=== PATIENT | female | born 1950 | race Caucasian/White ===

== ENCOUNTER 2017-04-21 22:13 | Inpatient (IN) | payer OTHER ==
[~2017-04-21] VITALS: Ht 154.9 cm; Wt 61.1 kg
[~2017-04-21 22:13] MED LIST: ACET-1311 PO; CARV12.52 PO; CHOL1POW32 PO; CLX40 PO; DICL75TA2 PO; HYDR25TA4 PO; LOSA100T33 PO; LUTE15CA PO; METR-163 PO; MULT-506 PO; POTA75TA PO; SIMV40TA4 PO
[2017-04-21] MEDS ORDERED: ONDANSETRON INJ 2 MG/ML 2 ML VIAL IV STA (23:25)
[2017-04-21 23:40] LABS: BASO % 0.3 %; BASO ABS # 0.05 K/uL (0-0.2); EOS % 0.9 %; EOS ABS # 0.15 K/uL (0-0.5); HEMATOCRIT 41.8 % (37-47); HEMOGLOBIN 15.1 g/dL (12.0-16.0); IG# 0.12 K/uL (0.00-0.02); LYMPH ABS # 2.16 K/uL (1.2-3.4); MEAN CELL VOLUME 89.5 fL (80-100); MEAN CORPUSCULAR HEMOGLOBIN 32.3 pg (25-34); MEAN CORPUSCULAR HGB CONC 36.1 g/dl (32-36); MEAN PLATELET VOLUME 8.4 fL (7.4-10.4); MONO ABS # 0.99 K/uL (0.11-0.59); NEUT % 79.1 %; NEUT ABS # 13.11 K/uL (1.4-6.5); PLATELET COUNT 600 K/uL (130-400); RED CELL DISTRIBUTION WIDTH SD 42.3 fL (36.4-46.3); WHITE BLOOD COUNT 16.58 K/uL (4.8-10.8)
[2017-04-22] VITALS (8 sets, daily range): BP systolic 78–143; BP diastolic 47–81; PULSE 62–80; TEMP 36.3–36.6; O2SAT 94–98; Ht 154.9 cm; Wt 61.1 kg
[2017-04-22 00:09] LABS: ALBUMIN 3.8 gm/dl (3.4-5.0); ALKALINE PHOSPHATASE 125 U/L (45-117); ALT/SGPT 40 U/L (12-78); AST/SGOT 29 U/L (15-37); BLOOD UREA NITROGEN 20 mg/dl (7-18); CALCIUM 9.8 mg/dl (8.5-10.1); CARBON DIOXIDE 27 mmol/L (21-32); CREATININE 1.65 mg/dl (0.60-1.20); GLUCOSE 143 mg/dl (70-99); LIPASE 200 U/L (73-393); POTASSIUM 2.2 mmol/L (3.5-5.1); SODIUM 129 mmol/L (136-145); TOTAL PROTEIN 9.4 gm/dl (6.4-8.2)
[2017-04-22] MEDS ORDERED: POTASSIUM CHLORIDE 10 MEQ / 100ML WTR IV STA ×2 (00:34→02:58)
[2017-04-22] MEDS ORDERED: SODIUM CHLORIDE 0.9% 1000ML 1,000 ML IV STA ×3 (00:34→02:58)
[2017-04-22] MEDS ORDERED: KETOROLAC TROMETHAMINE 30 MG/ML VIAL IV STA (00:45)
[2017-04-22] MEDS ORDERED: ONDANSETRON INJ 2 MG/ML 2 ML VIAL IV STA (00:45)
[2017-04-22] MEDS ORDERED: OPTIRAY 320 IV PRN (01:15)
[2017-04-22] MEDS ORDERED: CALC-20 PO (01:36)
[2017-04-22] MEDS ORDERED: OMEG10007 PO (01:36)
[2017-04-22] MEDS ORDERED: ASPCH81X PO (01:36)
[2017-04-22] MEDS ORDERED: ACET325T96 PO (01:36)
[2017-04-22] MEDS ORDERED: TRAM-10 PO (01:36)
[2017-04-22] MEDS ORDERED: CARV12.52 PO (01:39)
[2017-04-22] MEDS ORDERED: GABA-113 PO (01:39)
[2017-04-22] MEDS ORDERED: HYZ/10015 PO (01:39)
[2017-04-22] MEDS ORDERED: RANI150T3 PO (01:39)
[2017-04-22] MEDS ORDERED: CITA40TA12 PO (01:39)
[2017-04-22] MEDS ORDERED: FSMD/70 PO (01:40)
[2017-04-22] MEDS ORDERED: POTA10CA28 PO (01:40)
[2017-04-22] MEDS ORDERED: DICL-201 PO (01:40)
[2017-04-22] MEDS ORDERED: HYDROmorphone INJ 0.5 MG/0.5 ML SYR IV STA (03:12)
[2017-04-22] MEDS ORDERED: ACETAMINOPHEN 325 MG TAB PO PRN (03:45)
[2017-04-22] MEDS ORDERED: ONDANSETRON INJ 2 MG/ML 2 ML VIAL IV PRN (03:45)
--- NOTE | 2017-04-22 04:58 | History and Physical ---
History & Physical Date & Time of Service: Apr 22, 2017 at 04:54 Chief Complaint: Abd Pain, Diarrhea, Hypokalemia, Vomiting Primary Care Physician: Ronald Cortes M.D. History of Present Illness Source: patient 66 year old Patient with vomiting and diarrhea x 1 week. Abdominal imaging concerning for colitis. Patient reports that symptoms have become worse after 1 week of vomiting and diarrhea and associates most of the discomfort of lower abdomen towards the bladder. When asked if symptoms of abdominal discomfort is associated with urination, patient reports that pain is worse with urination. Past Medical/Surgical History Medical Problems: (1) Diabetes Status: Chronic (2) History of orthopedic surgery Status: Resolved Surgical Problems: (1) H/O skin graft Status: Resolved (2) History of tonsillectomy Status: Resolved Family History Cancer Diabetes mellitus Heart disease Hypertension Lung disease Social History Smoking Status: Current Some Day Smoker Drug Use: none Marital Status: Occupational Status: retired Multi-Drug Resistant Organisms History of MDRO: No Allergies Coded Allergies: BEE STING (Verified Allergy, Severe, SWELLING SEVERE, 04/22/17) Home Medications Scheduled Alendronate/Cholecalciferol (Fosamax+D 70MG/2800 Iu), 1 TABLET PO WK Aspirin (Aspirin Chewable), 81 MG PO DAILY Calcium Carbonate-Vitamin D (Calcium 600 + D), 1 TAB PO BID Carvedilol (Coreg), 12.5 MG PO BID Citalopram Hydrobromide (Celexa), 40 MG PO DAILY Fish Oil ([place]-3), 1 CAP PO DAILY Gabapentin (Neurontin), 300 MG PO TID Hctz/Losartan (Hyzaar 25MG/100MG), 1 TAB PO DAILY Multivitamin (Multivitamin), 1 TAB PO DAILY Potassium Chloride (Micro-K Ext Rel), 10 MEQ PO BID Ranitidine Hcl (Zantac), 150 MG PO DAILY Simvastatin (Zocor), 40 MG PO QPM Scheduled PRN Acetaminophen Tab (Tylenol), 650 MG PO Q6 PRN for fever/pain/headache Diclofenac (Voltaren), 75 MG PO BID PRN for Pain Tramadol (Ultram), 1 TAB PO Q6 PRN for Moderate Pain Review of Systems Constitutional: No fever Eyes: No worsening of vision ENT: No sore throat Respiratory: No cough, No wheezing, No shortness of breath, No dyspnea on exertion, No dyspnea at rest Cardiovascular: No chest pain, No edema, No palpitations Abdomen: + pain, + nausea, + vomiting, + diarrhea Musculoskeletal: No joint pain Genitourinary - Female: + dysuria Neurologic: No numbness/tingling Psychiatric: No substance abuse Endocrine: No excessive thirst Hematologic / Lymphatic: No night sweats Integumentary: No rash Physical Exam Vital Signs Date Time Temp Pulse Resp B/P (MAP) Pulse Ox O2 Delivery O2 Flow Rate FiO2 04/22/17 04:20 79 16 116/75 98 04/22/17 03:20 77 04/22/17 03:18 81 16 131/77 99 Room Air 04/22/17 02:15 79 20 131/73 98 Room Air 04/22/17 00:21 86 20 135/87 99 Room Air 04/21/17 22:26 36.8 95 18 98 Room Air General Appearance: no apparent distress Head: normocephalic, atraumatic Eyes: normal inspection, EOMI, sclerae normal ENT: normal ENT inspection, hearing grossly normal, pharynx normal Neck: supple, no JVD, trachea midline Respiratory/Chest: chest non-tender, lungs clear, normal breath sounds, no respiratory distress, no accessory muscle use Cardiovascular: regular rate, rhythm, no edema, no JVD Abdomen/GI: normal bowel sounds, soft, no organomegaly, + pertinent finding ( tenderness lower abdomen towards bladder) Back: normal inspection, no CVA tenderness, no muscle spasm, normal range of motion Extremities/Musculoskelatal: normal inspection, no calf tenderness, no pedal edema, normal range of motion, + pertinent finding (left knee scar from surgery in the past) Neurologic/Psych: alert, normal mood/affect, oriented x 3 Skin: warm/dry, + pertinent finding (left knee scar from previous surgery in the past) Diagnostics Laboratory Results Results Past 24 Hours Test 04/21/17 23:13 04/22/17 03:25 Range/Units White Blood Count 16.58 4.8-10.8 K/uL Red Blood Count 4.67 4.2-5.4 M/uL Hemoglobin 15.1 12.0-16.0 g/dL Hematocrit 41.8 37-47 % Mean Corpuscular Volume 89.5 80-100 fL Mean Corpuscular Hemoglobin 32.3 25-34 pg Mean Corpuscular Hemoglobin Concent 36.1 32-36 g/dl Platelet Count 600 130-400 K/uL Mean Platelet Volume 8.4 7.4-10.4 fL Neutrophils (%) (Auto) 79.1 % Lymphocytes (%) (Auto) 13.0 % Monocytes (%) (Auto) 6.0 % Eosinophils (%) (Auto) 0.9 % Basophils (%) (Auto) 0.3 % Neutrophils # (Auto) 13.11 1.4-6.5 K/uL Lymphocytes # (Auto) 2.16 1.2-3.4 K/uL Monocytes # (Auto) 0.99 0.11-0.59 K/uL Eosinophils # (Auto) 0.15 0-0.5 K/uL Basophils # (Auto) 0.05 0-0.2 K/uL RDW Standard Deviation 42.3 36.4-46.3 fL RDW Coefficient of Variation 13.0 11.5-14.5 % Immature Granulocyte % (Auto) 0.7 % Immature Granulocyte # (Auto) 0.12 0.00-0.02 K/uL Sodium Level 129 136-145 mmol/L Potassium Level 2.2 3.5-5.1 mmol/L Chloride Level 91 98-107 mmol/L Carbon Dioxide Level 27 21-32 mmol/L Anion Gap 10.0 3-11 mmol/L Blood Urea Nitrogen 20 7-18 mg/dl Creatinine 1.65 0.60-1.20 mg/dl Estimated GFR () 36.9 Estimated GFR (Non- 31.8 BUN/Creatinine Ratio 12.1 10-20 Random Glucose 143 70-99 mg/dl Calcium Level 9.8 8.5-10.1 mg/dl Magnesium Level 1.6 1.8-2.4 mg/dl Total Bilirubin 0.7 0.2-1 mg/dl Aspartate Amino Transf (AST/SGOT) 29 15-37 U/L Alanine Aminotransferase (ALT/SGPT) 40 12-78 U/L Alkaline Phosphatase 125 45-117 U/L Troponin I < 0.015 0-0.045 ng/ml Total Protein 9.4 6.4-8.2 gm/dl Albumin 3.8 3.4-5.0 gm/dl Globulin 5.6 2.5-4.0 gm/dl Albumin/Globulin Ratio 0.7 0.9-2 Lipase 200 73-393 U/L Urine Color YELLOW Urine Appearance CLOUDY CLEAR Urine pH 7.0 4.5-7.5 Urine Specific [place] 1.010 1.000-1.030 Urine Protein 2+ NEG Urine Glucose (UA) NEG NEG Urine Ketones TRACE NEG Urine Occult Blood 3+ NEG Urine Nitrite POS NEG Urine Bilirubin NEG NEG Urine Urobilinogen NEG NEG Urine Leukocyte Esterase LARGE NEG Urine RBC 5-10 0-4 /hpf Urine WBC >30 0-5 /hpf Urine Epithelial Cells 0-5 0-5 /lpf Urine Amorphous Sediment PRESENT NONE PRSENT Urine Bacteria 4+ NEG Urine Hyaline Casts 0 0-5 /lpf Diagnostic Radiology CT abdomen Wall thickening of the ascending and transverse colon suggestive of colitis. Probably posterior uterine fibroid. EKG EKG ordered Impression Assessment and Plan 66 year old Patient with vomiting and diarrhea x 1 week and likely has colitis, possible UTI CT abdomen: Wall thickening of the ascending and transverse colon suggestive of colitis start ciprofloxacin 400 mg q12 hours and Flagyl 500 mg IV q8 hours stool culture, C.difficile stool, fecal occult blood test ordered to be sent to lab gastroenterology consult requested abdominal pain may be from colitis vs UTI patient to receive antibiotic for colitis with ciprofloxacin having some urinary tract coverage, awaiting urine culture Leukocytosis likely from infectious process, follow stool and urine cultures vomiting and diarrhea from above differentials investigate and treat underlying causes antiemetics clear liquid diet, IV fluids Hypokalemia from GI losses ED ordered 10 mg IV potassium x 2 doses continue to check potassium levels check magnesium levels additional 80 meq PO potassium ordered Osteoporosis Avoid alendronate at this time while vomiting HTN and dyslipidemia Continue home medications if tolerated: aspirin, statin, carvedilol Continue home pain medications and citalopram DVT ppx: SCDs Level of Care Telemetry Resuscitation Status FULL RESUSCITATION VTE Prophylaxis VTE Risk Assessment Done? Y/N: Yes Risk Level: Moderate
[2017-04-22] MEDS ORDERED: SODIUM CHLORIDE 0.9% 1000ML 1,000 ML IV SCH (05:00)
[2017-04-22] MEDS ORDERED: POTASSIUM CHLORIDE 20 MEQ TABCR PO STA ×2 (05:21→08:45)
[2017-04-22] MEDS: METRONIDAZOLE / NSS 500 MG in PREMIXED NSS 100 ML IV SCH ×3 (05:57→21:05)
[2017-04-22] MEDS: CIPROFLOXACIN / D5W 400 MG in PREMIXED IN D5W 200 ML IV SCH ×2 (05:57→17:48)
[2017-04-22] MEDS ORDERED: CIPROFLOXACIN / D5W 400 MG in PREMIXED IN D5W 200 ML IV SCH (06:00)
[2017-04-22] MEDS ORDERED: POTASSIUM CHLR 10 MEQ / WTR 10 MEQ in PREMIXED WATER 100 ML IV STA (06:09)
--- NOTE | 2017-04-22 07:59 | DIAGNOSTIC IMAGING REPORT ---
ABDOMEN AND PELVIS CT WITH IV CONTRAST CT DOSE: 417.89 mGycm HISTORY: abdominal pain to right of umbilicus TECHNIQUE: Multiaxial CT images of the abdomen and pelvis were performed following the use of intravenous contrast. A dose lowering technique was utilized adhering to the principles of ALARA. COMPARISON STUDY: None. FINDINGS: The lung bases are clear. No pneumoperitoneum. No pneumatosis. No fractures within the visualized osseous structures. 7 mm lipoma along the periphery the right hepatic lobe. The spleen is unremarkable. Mild cortical thinning/scarring within the kidneys. No hydronephrosis. A 3 cm cyst within the right kidney. Mildly ectatic abdominal aorta measuring up to 2.5 cm in diameter. No retroperitoneal lymphadenopathy. The uterus and bilateral adnexa are unremarkable. There is moderate bladder wall thickening. Normal appendix. No evidence for bowel obstruction. Thickening of the ascending colon and proximal to mid transverse colon. Some of this could be related to underdistention. A 9 mm lipoma within the proximal transverse colon. Probable small posterior uterine fibroid. Mild heterogeneous enhancement within the upper pole of the left kidney. IMPRESSION: 1. Moderate bladder wall thickening consistent with a cystitis. Recommend correlation with urinalysis. 2. There is mild heterogeneous enhancement within the upper pole the left kidney. This raises the possibility of developing pyelonephritis. This can also be assessed with a urinalysis. 3. Mild thickening versus under distention within the ascending colon and transverse colon. This may represent a mild nonspecific colitis. Electronically signed by: Virgilio Briones M.D. 04/22/2017 7:58 AM Dictated Date/Time: 04/22/2017 7:51 AM
[2017-04-22 08:02] LABS: BASO % 0.3 %; BASO ABS # 0.03 K/uL (0-0.2); EOS ABS # 0.11 K/uL (0-0.5); HEMATOCRIT 31.3 % (37-47); HEMOGLOBIN 11.2 g/dL (12.0-16.0); IG# 0.05 K/uL (0.00-0.02); LYMPH % 28.1 %; LYMPH ABS # 3.25 K/uL (1.2-3.4); MEAN CELL VOLUME 89.7 fL (80-100); MEAN CORPUSCULAR HEMOGLOBIN 32.1 pg (25-34); MEAN CORPUSCULAR HGB CONC 35.8 g/dl (32-36); MEAN PLATELET VOLUME 8.1 fL (7.4-10.4); MONO % 7.6 %; MONO ABS # 0.88 K/uL (0.11-0.59); NEUT % 62.6 %; NEUT ABS # 7.23 K/uL (1.4-6.5); PLATELET COUNT 430 K/uL (130-400); RED CELL DISTRIBUTION WIDTH CV 13.1 % (11.5-14.5); RED CELL DISTRIBUTION WIDTH SD 42.7 fL (36.4-46.3); WHITE BLOOD COUNT 11.55 K/uL (4.8-10.8)
[2017-04-22 08:36] LABS: ALBUMIN 2.6 gm/dl (3.4-5.0); CALCIUM 7.7 mg/dl (8.5-10.1); CREATININE 1.2 mg/dl (0.60-1.20); POTASSIUM 3.3 mmol/L (3.5-5.1); TOTAL PROTEIN 6.7 gm/dl (6.4-8.2)
[2017-04-22] MEDS: CARVEDILOL 12.5 MG TAB PO SCH ×2 (08:41→21:00)
[2017-04-22] MEDS: GABAPENTIN 300 MG CAP PO SCH ×4 (08:41→21:05)
[2017-04-22] MEDS: CITALOPRAM 40 MG TAB PO SCH (08:41)
[2017-04-22] MEDS: ASPIRIN 81 MG CHEW PO SCH (08:41)
[2017-04-22] MEDS ORDERED: LOSARTAN/HCTZ 50-12.5 EA TAB PO SCH (09:00)
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
--- NOTE | 2017-04-22 09:54 | Gastrointestinal Consultation ---
Gastrointestinal Consultation Date of Consultation: Apr 22, 2017 Attending Physician: Jax Swanson Consulting Physician: Bo Calzada Reason for Consultation: Colitis History of Present Illness Patient is a 66 year old female w PMHx of diabetes who presented to ED w c/o N/V , diarrhea x 1 week. She can't keep any food/liquids down. Denies any sick contact, recent travels or undercooked foods. She has associated pain on suprapubic region but denies any dysuria, + hematuria per her report. Also felt tender across upper abd area. Denies any blood in stools. Labs showed leukocytosis WBC 16K. H/H 15/41 on presentation, now . Plt 600 -> 430. Chem panel notable for Na 129, K 2.2, Cr 1.65. She had CT abd/pelvis w IV contrast showed developing L pyelonephritis and mild thickening vs underdistension on ascending and transverse colon ? non specific colitis. Stool studies ordered, pending sample. Pt hasn't had any BM since admitted. This AM report able to tolerate CL diet. Only had a sigm[place]sc[place] [address] Davis - non specific inflammation. No family hx of colorectal ca or IBD. Past Medical/Surgical History Medical Problems: (1) Colitis Status: Acute (2) Hypokalemia Status: Acute (3) Hyponatremia Status: Acute Past Medical History: See above. Past Surgical History: History of orthopedic surgery Status: Resolved H/O skin graft Status: Resolved History of tonsillectomy Status: Resolved Family History Cancer Diabetes mellitus Heart disease Hypertension Lung disease Social History Smoking Status: Current Some Day Smoker Alcohol Use: none Drug Use: none Marital Status: Housing Status: lives with family Occupation Status: retired Allergies Coded Allergies: BEE STING (Verified Allergy, Severe, SWELLING SEVERE, 04/22/17) Current Medications Home Meds and Scripts Medications Dose Route/Sig Max Daily Dose Days Date Category Dose Instructions Micro-K Ext Rel (Potassium Chloride) 10 Meq Capcr 10 Meq PO BID 04/22/17 Reported Voltaren (Diclofenac Sodium) 75 Mg Tabcr 75 Mg PO BID PRN 04/22/17 Reported WITH FOOD Fosamax+D 70MG/2800 Iu (Alendronate Sodium/Vitamin D3) 70 Mg Tab 1 Tablet PO WK 04/22/17 Reported Celexa (Citalopram Hydrobromide) 40 Mg Tab 40 Mg PO DAILY 04/22/17 Reported Coreg (Carvedilol) 12.5 Mg Tab 12.5 Mg PO BID 04/22/17 Reported Hyzaar 25MG/100MG (HCTZ/Losartan Potassium) Tab 1 Tab PO DAILY 04/22/17 Reported Zantac (Ranitidine HCl) 150 Mg Tab 150 Mg PO DAILY 04/22/17 Reported Neurontin (Gabapentin) 300 Mg Cap 300 Mg PO TID 04/22/17 Reported Ultram (Tramadol HCl) 50 Mg Tab 1 Tab PO Q6 PRN 04/22/17 Reported Aspirin Chewable (Aspirin) 81 Mg Chew 81 Mg PO DAILY 04/22/17 Reported Tylenol (Acetaminophen) 325 Mg Tab 650 Mg PO Q6 PRN 04/22/17 Reported Calcium 600 + D (Calcium Carbonate-Vitamin D) 1 Tab Tab 1 Tab PO BID 04/22/17 Reported Cres[place]-3 (Fish Oil) 1 Ea Cap 1 Cap PO DAILY 04/22/17 Reported Multivitamin (Multivitamins) Tab 1 Tab PO DAILY 02/07/14 Reported Zocor (Simvastatin) 40 Mg Tab 40 Mg PO QPM 10/05/13 Reported Review of Systems Constitutional: + weakness, No fever, No chills Respiratory: No cough, No shortness of breath Cardiac: No chest pain Abdomen: + see HPI, + pain, + nausea, + vomiting, + diarrhea, No GI bleeding Physical Exam Date Time Temp Pulse Resp B/P (MAP) Pulse Ox O2 Delivery O2 Flow Rate FiO2 04/22/17 07:33 36.4 80 18 116/73 (87) 97 Room Air 04/22/17 04:46 36.5 70 20 143/81 94 Room Air 04/22/17 04:20 79 16 116/75 98 04/22/17 03:20 77 04/22/17 03:18 81 16 131/77 99 Room Air 04/22/17 02:15 79 20 131/73 98 Room Air 04/22/17 00:21 86 20 135/87 99 Room Air 04/21/17 22:26 36.8 95 18 98 Room Air General Appearance: WD/WN, no apparent distress Eyes: normal inspection, PERRL, EOMI Neck: supple, no JVD, trachea midline Respiratory/Chest: normal breath sounds, no respiratory distress, no accessory muscle use Cardiovascular: regular rate, rhythm, no gallop, no murmur Abdomen: normal bowel sounds, soft, + tenderness (suprapubic, across upper abd ) Extremities: normal inspection, no pedal edema, no calf tenderness Neurologic/Psych: alert, normal mood/affect, oriented x 3 Skin: normal color, no jaundice, no rash Laboratory Results Last 24 Hours Test 04/21/17 23:13 04/22/17 03:25 04/22/17 06:53 04/22/17 07:23 White Blood Count 16.58 K/uL 11.55 K/uL Red Blood Count 4.67 M/uL 3.49 M/uL Hemoglobin 15.1 g/dL 11.2 g/dL Hematocrit 41.8 % 31.3 % Mean Corpuscular Volume 89.5 fL 89.7 fL Mean Corpuscular Hemoglobin 32.3 pg 32.1 pg Mean Corpuscular Hemoglobin Concent 36.1 g/dl 35.8 g/dl Platelet Count 600 K/uL 430 K/uL Mean Platelet Volume 8.4 fL 8.1 fL Neutrophils (%) (Auto) 79.1 % 62.6 % Lymphocytes (%) (Auto) 13.0 % 28.1 % Monocytes (%) (Auto) 6.0 % 7.6 % Eosinophils (%) (Auto) 0.9 % 1.0 % Basophils (%) (Auto) 0.3 % 0.3 % Neutrophils # (Auto) 13.11 K/uL 7.23 K/uL Lymphocytes # (Auto) 2.16 K/uL 3.25 K/uL Monocytes # (Auto) 0.99 K/uL 0.88 K/uL Eosinophils # (Auto) 0.15 K/uL 0.11 K/uL Basophils # (Auto) 0.05 K/uL 0.03 K/uL RDW Standard Deviation 42.3 fL 42.7 fL RDW Coefficient of Variation 13.0 % 13.1 % Immature Granulocyte % (Auto) 0.7 % 0.4 % Immature Granulocyte # (Auto) 0.12 K/uL 0.05 K/uL Sodium Level 129 mmol/L 132 mmol/L Potassium Level 2.2 mmol/L 3.3 mmol/L Chloride Level 91 mmol/L 100 mmol/L Carbon Dioxide Level 27 mmol/L 25 mmol/L Anion Gap 10.0 mmol/L 7.0 mmol/L Blood Urea Nitrogen 20 mg/dl 16 mg/dl Creatinine 1.65 mg/dl 1.20 mg/dl Estimated GFR () 36.9 54.2 Estimated GFR (Non- 31.8 46.7 BUN/Creatinine Ratio 12.1 13.4 Random Glucose 143 mg/dl 108 mg/dl Calcium Level 9.8 mg/dl 7.7 mg/dl Magnesium Level 1.6 mg/dl Total Bilirubin 0.7 mg/dl 0.4 mg/dl Aspartate Amino Transf (AST/SGOT) 29 U/L 22 U/L Alanine Aminotransferase (ALT/SGPT) 40 U/L 30 U/L Alkaline Phosphatase 125 U/L 85 U/L Troponin I < 0.015 ng/ml Total Protein 9.4 gm/dl 6.7 gm/dl Albumin 3.8 gm/dl 2.6 gm/dl Globulin 5.6 gm/dl 4.1 gm/dl Albumin/Globulin Ratio 0.7 0.6 Lipase 200 U/L Urine Color YELLOW Urine Appearance CLOUDY Urine pH 7.0 Urine Specific [place] 1.010 Urine Protein 2+ Urine Glucose (UA) NEG Urine Ketones TRACE Urine Occult Blood 3+ Urine Nitrite POS Urine Bilirubin NEG Urine Urobilinogen NEG Urine Leukocyte Esterase LARGE Urine RBC 5-10 /hpf Urine WBC >30 /hpf Urine Epithelial Cells 0-5 /lpf Urine Amorphous Sediment PRESENT Urine Bacteria 4+ Urine Hyaline Casts 0 /lpf Bedside Glucose 135 mg/dl Est Creatinine Clear Calc Drug Dose 37.7 ml/min Hepatitis C Antibody Screen NEG Impression Patient is a 66 year old female w N/V, diarrhea, poor PO intake x 1 week. Labs showed leukocytosis, several electrolytes imbalance and ARF. CT scan showed colonic thickening over ascending and transverse colon ? under distension vs non specific colitis. Also seems to have developing L pyelonephritis. Plan - CL diet - Obtain stool cx, Cdiff - Cipro/Flagyl x 10 days - Defer electrolyte repletion and pyelonephritis management to primary team - Recommend f/u colonoscopy in 4-6 week's time. ATTESTATION: I have performed a history and physical examination of this patient and reviewed the electronic record. Specifically, on physical examination there is abdominal tenderness without guarding or rebound. I have discussed the case with BLANK Fernández. The above note reflects my findings, conclusions, and recommendations. Bo Calzada MD
--- NOTE | 2017-04-22 13:04 | Progress Note ---
Medicine Progress Note Date & Time of Visit: Apr 22, 2017 at 12:59. Subjective seen sitting up in bed, comfortable states she feels improved today compared to yesterday able to tolerate clear liquids, less nausea has some suprapubic pain and dysuria, no flank pain denies fever/chills denies other symptoms Objective Last 8 Hrs Date Time Temp Pulse Resp B/P (MAP) Pulse Ox O2 Delivery O2 Flow Rate FiO2 04/22/17 11:13 36.6 75 18 94/61 (72) 95 Room Air 04/22/17 08:00 97 Room Air 04/22/17 07:33 36.4 80 18 116/73 (87) 97 Room Air Physical Exam: General- oriented x 3, not in distress, speaks in sentences with no effort Head- atraumatic Eyes- PERRL, EOMI, anicteric ENT- oropharynx clear Neck- supple, no JVD, no adenopathy, no thyromegaly; carotids +2/2 Lungs- clear breath sounds bilaterally, no rales/wheezes Heart- regular rhythm; no murmur, no gallop, normal rate Abdomen- normal bowel sounds, non distended, soft, mild suprapubic tenderness Extremities- no pretibial edema, no calf tenderness; peripheral pulses intact Neuro- alert, oriented x 3; no gross focal deficits Skin- warm & dry Laboratory Results: Last 24 Hours Test 04/21/17 23:13 04/22/17 03:25 04/22/17 06:53 04/22/17 07:23 White Blood Count 16.58 K/uL 11.55 K/uL Red Blood Count 4.67 M/uL 3.49 M/uL Hemoglobin 15.1 g/dL 11.2 g/dL Hematocrit 41.8 % 31.3 % Mean Corpuscular Volume 89.5 fL 89.7 fL Mean Corpuscular Hemoglobin 32.3 pg 32.1 pg Mean Corpuscular Hemoglobin Concent 36.1 g/dl 35.8 g/dl Platelet Count 600 K/uL 430 K/uL Mean Platelet Volume 8.4 fL 8.1 fL Neutrophils (%) (Auto) 79.1 % 62.6 % Lymphocytes (%) (Auto) 13.0 % 28.1 % Monocytes (%) (Auto) 6.0 % 7.6 % Eosinophils (%) (Auto) 0.9 % 1.0 % Basophils (%) (Auto) 0.3 % 0.3 % Neutrophils # (Auto) 13.11 K/uL 7.23 K/uL Lymphocytes # (Auto) 2.16 K/uL 3.25 K/uL Monocytes # (Auto) 0.99 K/uL 0.88 K/uL Eosinophils # (Auto) 0.15 K/uL 0.11 K/uL Basophils # (Auto) 0.05 K/uL 0.03 K/uL RDW Standard Deviation 42.3 fL 42.7 fL RDW Coefficient of Variation 13.0 % 13.1 % Immature Granulocyte % (Auto) 0.7 % 0.4 % Immature Granulocyte # (Auto) 0.12 K/uL 0.05 K/uL Sodium Level 129 mmol/L 132 mmol/L Potassium Level 2.2 mmol/L 3.3 mmol/L Chloride Level 91 mmol/L 100 mmol/L Carbon Dioxide Level 27 mmol/L 25 mmol/L Anion Gap 10.0 mmol/L 7.0 mmol/L Blood Urea Nitrogen 20 mg/dl 16 mg/dl Creatinine 1.65 mg/dl 1.20 mg/dl Estimated GFR () 36.9 54.2 Estimated GFR (Non- 31.8 46.7 BUN/Creatinine Ratio 12.1 13.4 Random Glucose 143 mg/dl 108 mg/dl Calcium Level 9.8 mg/dl 7.7 mg/dl Magnesium Level 1.6 mg/dl Total Bilirubin 0.7 mg/dl 0.4 mg/dl Aspartate Amino Transf (AST/SGOT) 29 U/L 22 U/L Alanine Aminotransferase (ALT/SGPT) 40 U/L 30 U/L Alkaline Phosphatase 125 U/L 85 U/L Troponin I < 0.015 ng/ml Total Protein 9.4 gm/dl 6.7 gm/dl Albumin 3.8 gm/dl 2.6 gm/dl Globulin 5.6 gm/dl 4.1 gm/dl Albumin/Globulin Ratio 0.7 0.6 Lipase 200 U/L Urine Color YELLOW Urine Appearance CLOUDY Urine pH 7.0 Urine Specific [place] 1.010 Urine Protein 2+ Urine Glucose (UA) NEG Urine Ketones TRACE Urine Occult Blood 3+ Urine Nitrite POS Urine Bilirubin NEG Urine Urobilinogen NEG Urine Leukocyte Esterase LARGE Urine RBC 5-10 /hpf Urine WBC >30 /hpf Urine Epithelial Cells 0-5 /lpf Urine Amorphous Sediment PRESENT Urine Bacteria 4+ Urine Hyaline Casts 0 /lpf Bedside Glucose 135 mg/dl Est Creatinine Clear Calc Drug Dose 37.7 ml/min Hepatitis C Antibody Screen NEG Test 04/22/17 10:57 Bedside Glucose 118 mg/dl Assessment & Plan 66 year old female with history of HTN, Anxiety presenting with vomiting and diarrhea. POSSIBLE INFECTIOUS COLITIS CT abdomen: Wall thickening of the ascending and transverse colon suggestive of colitis - stool cultures pending Day 05/23 ciprofloxacin 400 mg q12 hours and Flagyl 500 mg IV q8 hours GI consulted outpatient colonoscopy recommended in 4-6 weeks - clear liquids, IV NSS POSSIBLE UTI, PYELONEPHRITIS- LEFT - urine culture pending - symptoms improving continue Cipro + Metro for now ff up cultures Hypokalemia from GI losses K 2.2 given PO and IV K repeat K this afternoon Osteoporosis Avoid alendronate at this time while vomiting HTN and dyslipidemia hold Losartan and HCTZ and Statin Continue home pain medications and citalopram DVT ppx: SCDs Dispo anticipate d/c home when medically stable Current Inpatient Medications: Current Inpatient Medications Medications (Trade) Dose Ordered Sig/Hattie Route Start Time Stop Time Status Last Admin Dose Admin Ioversol (Optiray 320) 100 ml UD PRN IV 04/22/17 01:15 04/26/17 01:14 Ondansetron HCl (Zofran Inj) 4 mg Q6H PRN IV 04/22/17 03:45 05/22/17 03:44 Sodium Chloride 1,000 ml @ 75 mls/hr [id number] IV 04/22/17 05:00 05/22/17 04:59 04/22/17 05:25 75 MLS/HR Acetaminophen (Tylenol Tab) 650 mg Q6 PRN PO 04/22/17 03:45 05/22/17 03:44 Aspirin (Aspirin Chew) 81 mg DAILY PO 04/22/17 09:00 05/22/17 08:59 04/22/17 08:41 81 MG Carvedilol (Coreg Tab) 12.5 mg BID PO 04/22/17 09:00 05/22/17 08:59 04/22/17 08:41 12.5 MG Citalopram Hydrobromide (celeXA TAB) 40 mg DAILY PO 04/22/17 09:00 05/22/17 08:59 04/22/17 08:41 40 MG Gabapentin (Neurontin Cap) 300 mg TID PO 04/22/17 09:00 05/22/17 08:59 04/22/17 08:41 300 MG Simvastatin (Zocor Tab) 40 mg QPM PO 04/22/17 21:00 05/22/17 20:59 Tramadol HCl (Ultram Tab) 50 mg Q6 PRN PO 04/22/17 03:45 05/22/17 03:44 Metronidazole 500 mg/Prmx 100 ml @ 100 mls/hr Q8H IV 04/22/17 06:00 05/02/17 05:59 04/22/17 05:57 100 MLS/HR Ciprofloxacin/ Dextrose 400 mg/ Prmx 200 ml @ 100 mls/hr Q12H IV 04/22/17 06:00 05/02/17 05:59 04/22/17 05:57 100 MLS/HR
[2017-04-22 13:39] LABS: POTASSIUM 3.1 mmol/L (3.5-5.1)
[2017-04-22] MEDS ORDERED: POTASSIUM CHLORIDE 10 MEQ TABCR PO ONE (17:00)
[2017-04-22] MEDS: MAGNESIUM SULFATE 1GM / D5W 1 GM in PREMIXED IN D5W 100 ML IV SCH ×2 (17:46→19:10)
[2017-04-22 20:44] LABS: POTASSIUM 3.3 mmol/L (3.5-5.1)
[2017-04-22] MEDS ORDERED: SIMVASTATIN 40 MG TAB PO SCH (21:00)
[2017-04-22] MEDS ORDERED: SODIUM CHLORIDE 0.9% 1000ML 1,000 ML IV ONE (22:15)
[2017-04-22] MEDS ORDERED: POTASSIUM CHLORIDE 20 MEQ TABCR PO ONE (22:15)
[2017-04-23] VITALS (7 sets, daily range): BP systolic 96–125; BP diastolic 61–79; PULSE 57–72; TEMP 36.4–36.8; O2SAT 94–98
[2017-04-23] MEDS: TRAMADOL HCL 50 MG TAB PO PRN (05:50)
[2017-04-23] MEDS: METRONIDAZOLE / NSS 500 MG in PREMIXED NSS 100 ML IV SCH ×3 (05:50→22:01)
[2017-04-23] MEDS: CIPROFLOXACIN / D5W 400 MG in PREMIXED IN D5W 200 ML IV SCH ×2 (05:50→17:51)
[2017-04-23] MEDS: CITALOPRAM 40 MG TAB PO SCH (08:15)
[2017-04-23] MEDS: GABAPENTIN 300 MG CAP PO SCH ×3 (08:15→20:17)
[2017-04-23] MEDS: ASPIRIN 81 MG CHEW PO SCH (08:15)
[2017-04-23] MEDS: CARVEDILOL 12.5 MG TAB PO SCH ×2 (08:15→20:17)
--- NOTE | 2017-04-23 08:56 | Clinical Documentation Query ---
SHAGGY Crowley : CLINICAL DOCUMENTATION QUERY Patient is a 66 year old female admitted with vomiting and diarrhea x 1 week, determined to have colitis. Admission BUN and creatinine 20 mg/dl and 1.65 mg/dl. No history of CKD. She was treated with IVF and repeat serum chemistry demonstrated improvement of these values to 16 mg/dl and 1.20 mg/dl. Please clarify as clinically appropriate. In your clinical opinion is this patient being managed for: ( ) Acute kidney failure, POA, resolved ( ) Not Agree ( ) Other explanation of clinical findings (Please Explain) ( ) Unable to determine (Please Define) ( ) Need to Discuss The medical record reflects the following clinical findings, treatment, and risk factors. Clinical Indicators: As above Treatment:She was treated with IVF and repeat serum chemistry Risk Factors: Vomiting and diarrhea x 1 week Please clarify and document your clinical opinion in the progress notes and discharge summary. Terms such as "probable", "suspected", "likely", "questionable", "possible", or "still to be ruled out" are acceptable. IF IN AGREEMENT, YOU MUST DOCUMENT ABOVE DIAGNOSTIC STATEMENT IN DAILY PROGRESS NOTES AND DISCHARGE SUMMARY. This document is not part of the patient's record. Thank You, Robert Durán, RN [phone]
[2017-04-23 09:13] LABS: BASO % 0.5 %; BASO ABS # 0.05 K/uL (0-0.2); EOS % 2.9 %; EOS ABS # 0.27 K/uL (0-0.5); HEMATOCRIT 29.6 % (37-47); HEMOGLOBIN 10.3 g/dL (12.0-16.0); IG# 0.04 K/uL (0.00-0.02); LYMPH % 30.6 %; LYMPH ABS # 2.83 K/uL (1.2-3.4); MEAN CELL VOLUME 92.5 fL (80-100); MEAN CORPUSCULAR HEMOGLOBIN 32.2 pg (25-34); MEAN CORPUSCULAR HGB CONC 34.8 g/dl (32-36); MONO % 7.1 %; MONO ABS # 0.66 K/uL (0.11-0.59); NEUT % 58.5 %; NEUT ABS # 5.39 K/uL (1.4-6.5); PLATELET COUNT 378 K/uL (130-400); RED CELL DISTRIBUTION WIDTH CV 13.5 % (11.5-14.5); RED CELL DISTRIBUTION WIDTH SD 45.6 fL (36.4-46.3); WHITE BLOOD COUNT 9.24 K/uL (4.8-10.8)
[2017-04-23 09:44] LABS: CALCIUM 7.7 mg/dl (8.5-10.1); CREATININE 0.97 mg/dl (0.60-1.20); POTASSIUM 3.8 mmol/L (3.5-5.1)
--- NOTE | 2017-04-23 14:47 | Gastroenterology Progress Note ---
Progress Note Date of Service: Apr 23, 2017 Subjective Pt evaluation today including: conversation w/ patient, physical exam, chart review, lab review, review of studies, review of inpatient medication list Mr. Johnston is a 66 yr old female admitted for abdominal pain. CT with suggestion of left sided colitis. Stool for C-diff (-). Review of Systems Constitutional: No fever Respiratory: No cough Cardiac: No chest pain Abdomen: + pain (persists, L>R, improved. ) Musculoskeletal: No joint pain Female : No dysuria Neuro: No memory loss Psych: No depression symptoms Heme: No abnormal bleeding/bruising Endo: No fatigue Medications Current Inpatient Medications Medications (Trade) Dose Ordered Sig/Hattie Route Start Time Stop Time Status Last Admin Dose Admin Ioversol (Optiray 320) 100 ml UD PRN IV 04/22/17 01:15 04/26/17 01:14 Ondansetron HCl (Zofran Inj) 4 mg Q6H PRN IV 04/22/17 03:45 05/22/17 03:44 Acetaminophen (Tylenol Tab) 650 mg Q6 PRN PO 04/22/17 03:45 05/22/17 03:44 Aspirin (Aspirin Chew) 81 mg DAILY PO 04/22/17 09:00 05/22/17 08:59 04/23/17 08:15 81 MG Carvedilol (Coreg Tab) 12.5 mg BID PO 04/22/17 09:00 05/22/17 08:59 04/23/17 08:15 12.5 MG Citalopram Hydrobromide (celeXA TAB) 40 mg DAILY PO 04/22/17 09:00 05/22/17 08:59 04/23/17 08:15 40 MG Gabapentin (Neurontin Cap) 300 mg TID PO 04/22/17 09:00 05/22/17 08:59 04/23/17 13:48 300 MG Tramadol HCl (Ultram Tab) 50 mg Q6 PRN PO 04/22/17 03:45 05/22/17 03:44 04/23/17 05:50 50 MG Metronidazole 500 mg/Prmx 100 ml @ 100 mls/hr Q8H IV 04/22/17 06:00 05/02/17 05:59 04/23/17 13:48 100 MLS/HR Ciprofloxacin/ Dextrose 400 mg/ Prmx 200 ml @ 100 mls/hr Q12H IV 04/22/17 06:00 05/02/17 05:59 04/23/17 05:50 100 MLS/HR Objective Vital Signs Date Time Temp Pulse Resp B/P (MAP) Pulse Ox O2 Delivery O2 Flow Rate FiO2 04/23/17 11:25 Room Air 04/23/17 11:06 36.7 57 18 100/64 (76) 96 Room Air 04/23/17 08:10 Room Air 04/23/17 07:32 36.4 70 18 112/69 (83) 97 Room Air 04/23/17 04:00 Room Air 04/23/17 03:14 36.8 72 17 96/61 (73) 97 Room Air 04/23/17 00:01 Room Air 04/22/17 23:08 36.5 63 17 92/59 (70) 98 Room Air 04/22/17 20:00 Room Air 04/22/17 19:00 36.6 62 19 84/47 (59) 96 Room Air 04/22/17 16:00 Room Air 04/22/17 16:00 Room Air 04/22/17 15:54 36.3 64 19 78/47 (57) 96 Room Air Physical Exam General Appearance: no apparent distress ENT: pharynx normal Neck: no JVD Respiratory/Chest: lungs clear Cardiovascular: regular rate, rhythm, no JVD, no murmur Abdomen: normal bowel sounds, soft, + tenderness (mild LLQ tenderness) Extremities: non-tender Neurologic/Psych: alert, normal mood/affect, oriented x 3 Skin: no jaundice, no rash Laboratory Results Last 24 Hours Test 04/22/17 16:09 04/22/17 20:13 04/22/17 20:22 04/23/17 06:52 Bedside Glucose 128 mg/dl 97 mg/dl 102 mg/dl Potassium Level 3.3 mmol/L Magnesium Level 2.4 mg/dl Test 04/23/17 08:39 04/23/17 11:20 White Blood Count 9.24 K/uL Red Blood Count 3.20 M/uL Hemoglobin 10.3 g/dL Hematocrit 29.6 % Mean Corpuscular Volume 92.5 fL Mean Corpuscular Hemoglobin 32.2 pg Mean Corpuscular Hemoglobin Concent 34.8 g/dl Platelet Count 378 K/uL Mean Platelet Volume 8.0 fL Neutrophils (%) (Auto) 58.5 % Lymphocytes (%) (Auto) 30.6 % Monocytes (%) (Auto) 7.1 % Eosinophils (%) (Auto) 2.9 % Basophils (%) (Auto) 0.5 % Neutrophils # (Auto) 5.39 K/uL Lymphocytes # (Auto) 2.83 K/uL Monocytes # (Auto) 0.66 K/uL Eosinophils # (Auto) 0.27 K/uL Basophils # (Auto) 0.05 K/uL RDW Standard Deviation 45.6 fL RDW Coefficient of Variation 13.5 % Immature Granulocyte % (Auto) 0.4 % Immature Granulocyte # (Auto) 0.04 K/uL Sodium Level 133 mmol/L Potassium Level 3.8 mmol/L Chloride Level 105 mmol/L Carbon Dioxide Level 22 mmol/L Anion Gap 6.0 mmol/L Blood Urea Nitrogen 7 mg/dl Creatinine 0.97 mg/dl Est Creatinine Clear Calc Drug Dose 47.2 ml/min Estimated GFR () 70.0 Estimated GFR (Non- 60.4 BUN/Creatinine Ratio 6.7 Random Glucose 115 mg/dl Calcium Level 7.7 mg/dl Magnesium Level 2.1 mg/dl Bedside Glucose 114 mg/dl Assessment and Plan Ms. Johnston is a 66 yr old female with likely ischemic colitis vs. infectious. Plan: 1. Broad spectrum antibiotics x total 10 days. 2. Advance diet. 3. Pt to f/u with GI in [place] who can decide if OP colonoscopy is indicated. ATTESTATION: I have performed a history and physical examination of this patient and reviewed the electronic record. Specifically, on physical examination there is mild LLQ tenderness. I have discussed the case with BLANK Rai. The above note reflects my findings, conclusions, and recommendations. Bo Calzada MD
--- NOTE | 2017-04-23 17:04 | Progress Note ---
Medicine Progress Note Date & Time of Visit: Apr 23, 2017 at 17:04. Subjective seen resting in bed, comfortable in good spirits states she feels improved compared to yesterday had 3 loose BMs today mild suprapubic pain, no flank/back pain no fever/chills reports intermittent hematuria, no dysuria no other symptoms Objective Last 8 Hrs Date Time Temp Pulse Resp B/P (MAP) Pulse Ox O2 Delivery O2 Flow Rate FiO2 04/23/17 16:00 Room Air 04/23/17 15:51 36.8 62 20 99/62 (74) 97 Room Air 04/23/17 11:25 Room Air 04/23/17 11:06 36.7 57 18 100/64 (76) 96 Room Air Physical Exam: General- oriented x 3, not in distress, speaks in sentences with no effort Eyes- EOMI, anicteric ENT- oropharynx clear Neck- supple, no JVD, no adenopathy Lungs- clear BS bilaterally Heart- regular rhythm; no murmur, normal rate Abdomen- normal bowel sounds, non distended, soft, mild suprapubic tenderness Extremities- no pretibial edema, no calf tenderness Neuro- alert, oriented x 3; no gross focal deficits Skin- warm & dry Laboratory Results: Last 24 Hours Test 04/22/17 20:13 04/22/17 20:22 04/23/17 06:52 04/23/17 08:39 Potassium Level 3.3 mmol/L 3.8 mmol/L Magnesium Level 2.4 mg/dl 2.1 mg/dl Bedside Glucose 97 mg/dl 102 mg/dl White Blood Count 9.24 K/uL Red Blood Count 3.20 M/uL Hemoglobin 10.3 g/dL Hematocrit 29.6 % Mean Corpuscular Volume 92.5 fL Mean Corpuscular Hemoglobin 32.2 pg Mean Corpuscular Hemoglobin Concent 34.8 g/dl Platelet Count 378 K/uL Mean Platelet Volume 8.0 fL Neutrophils (%) (Auto) 58.5 % Lymphocytes (%) (Auto) 30.6 % Monocytes (%) (Auto) 7.1 % Eosinophils (%) (Auto) 2.9 % Basophils (%) (Auto) 0.5 % Neutrophils # (Auto) 5.39 K/uL Lymphocytes # (Auto) 2.83 K/uL Monocytes # (Auto) 0.66 K/uL Eosinophils # (Auto) 0.27 K/uL Basophils # (Auto) 0.05 K/uL RDW Standard Deviation 45.6 fL RDW Coefficient of Variation 13.5 % Immature Granulocyte % (Auto) 0.4 % Immature Granulocyte # (Auto) 0.04 K/uL Sodium Level 133 mmol/L Chloride Level 105 mmol/L Carbon Dioxide Level 22 mmol/L Anion Gap 6.0 mmol/L Blood Urea Nitrogen 7 mg/dl Creatinine 0.97 mg/dl Est Creatinine Clear Calc Drug Dose 47.2 ml/min Estimated GFR () 70.0 Estimated GFR (Non- 60.4 BUN/Creatinine Ratio 6.7 Random Glucose 115 mg/dl Calcium Level 7.7 mg/dl Test 04/23/17 11:20 04/23/17 14:15 04/23/17 16:08 Bedside Glucose 114 mg/dl 100 mg/dl Stool Occult Blood POSITIVE Date/Time Source Procedure Growth Status 04/23/17 09:45 Stool C.difficile Toxin B Gene (PCR) - Final No C. difficile toxin B gene detected Complete 04/23/17 09:45 Stool Shiga Toxin Test Pending Received 04/23/17 09:45 Stool Stool Culture Pending Received Assessment & Plan 66 year old female with history of HTN, Anxiety presenting with vomiting and diarrhea. POSSIBLE INFECTIOUS COLITIS CT abdomen: Wall thickening of the ascending and transverse colon suggestive of colitis - stool cultures pending C diff negative Day 06/20 ciprofloxacin 400 mg q12 hours and Flagyl 500 mg IV q8 hours GI consulted outpatient colonoscopy recommended in 4-6 weeks - advance diet to soft diet, IV NSS POSSIBLE UTI, PYELONEPHRITIS- LEFT - urine culture pending - symptoms improving continue Cipro + Metro for now ff up cultures Hypokalemia from GI losses K 2.2 given PO and IV K K normal Mg normal Hematuria has history of smoking (+) 3cm right kidney cyst Urology consulted Osteoporosis Avoid alendronate at this time while vomiting HTN and dyslipidemia hold Losartan and HCTZ and Statin Continue home pain medications and citalopram DVT ppx: SCDs due to hematuria Dispo anticipate d/c home when medically stable Current Inpatient Medications: Current Inpatient Medications Medications (Trade) Dose Ordered Sig/Hattie Route Start Time Stop Time Status Last Admin Dose Admin Ioversol (Optiray 320) 100 ml UD PRN IV 04/22/17 01:15 04/26/17 01:14 Ondansetron HCl (Zofran Inj) 4 mg Q6H PRN IV 04/22/17 03:45 05/22/17 03:44 Acetaminophen (Tylenol Tab) 650 mg Q6 PRN PO 04/22/17 03:45 05/22/17 03:44 Aspirin (Aspirin Chew) 81 mg DAILY PO 04/22/17 09:00 05/22/17 08:59 04/23/17 08:15 81 MG Carvedilol (Coreg Tab) 12.5 mg BID PO 04/22/17 09:00 05/22/17 08:59 04/23/17 08:15 12.5 MG Citalopram Hydrobromide (celeXA TAB) 40 mg DAILY PO 04/22/17 09:00 05/22/17 08:59 04/23/17 08:15 40 MG Gabapentin (Neurontin Cap) 300 mg TID PO 04/22/17 09:00 05/22/17 08:59 04/23/17 13:48 300 MG Tramadol HCl (Ultram Tab) 50 mg Q6 PRN PO 04/22/17 03:45 05/22/17 03:44 04/23/17 05:50 50 MG Metronidazole 500 mg/Prmx 100 ml @ 100 mls/hr Q8H IV 04/22/17 06:00 05/02/17 05:59 04/23/17 13:48 100 MLS/HR Ciprofloxacin/ Dextrose 400 mg/ Prmx 200 ml @ 100 mls/hr Q12H IV 04/22/17 06:00 05/02/17 05:59 04/23/17 05:50 100 MLS/HR
[2017-04-24] MEDS: METRONIDAZOLE / NSS 500 MG in PREMIXED NSS 100 ML IV SCH ×2 (05:39→14:12)
[2017-04-24] MEDS: CIPROFLOXACIN / D5W 400 MG in PREMIXED IN D5W 200 ML IV SCH (06:19)
[2017-04-24 07:08] VITALS: BP 118/85; PULSE 64; TEMP 36.9; O2SAT 96
[2017-04-24 08:00] VITALS: O2SAT 96
[2017-04-24] MEDS: CITALOPRAM 40 MG TAB PO SCH (08:26)
[2017-04-24] MEDS: CARVEDILOL 12.5 MG TAB PO SCH ×2 (08:26→20:38)
[2017-04-24] MEDS: GABAPENTIN 300 MG CAP PO SCH ×3 (08:27→19:36)
[2017-04-24 08:29] LABS: BASO % 0.4 %; BASO ABS # 0.04 K/uL (0-0.2); EOS % 2.6 %; EOS ABS # 0.28 K/uL (0-0.5); HEMATOCRIT 30.2 % (37-47); HEMOGLOBIN 10.1 g/dL (12.0-16.0); IG# 0.05 K/uL (0.00-0.02); LYMPH % 23.6 %; LYMPH ABS # 2.53 K/uL (1.2-3.4); MEAN CELL VOLUME 92.1 fL (80-100); MEAN CORPUSCULAR HEMOGLOBIN 30.8 pg (25-34); MEAN CORPUSCULAR HGB CONC 33.4 g/dl (32-36); MEAN PLATELET VOLUME 8.1 fL (7.4-10.4); MONO % 7.1 %; MONO ABS # 0.76 K/uL (0.11-0.59); NEUT % 65.8 %; NEUT ABS # 7.04 K/uL (1.4-6.5); PLATELET COUNT 384 K/uL (130-400); RED CELL DISTRIBUTION WIDTH CV 13.5 % (11.5-14.5); RED CELL DISTRIBUTION WIDTH SD 45.3 fL (36.4-46.3)
[2017-04-24 08:58] LABS: CALCIUM 7.9 mg/dl (8.5-10.1); CREATININE 0.97 mg/dl (0.60-1.20); POTASSIUM 3.7 mmol/L (3.5-5.1)
--- NOTE | 2017-04-24 13:09 | Gastroenterology Progress Note ---
Progress Note Date of Service: Apr 24, 2017 Subjective Pt evaluation today including: conversation w/ patient, physical exam, chart review, lab review, review of studies, review of inpatient medication list Ms. Johnston is a 66 yr old female with (likely) ischemic vs. infectious colitis. She is feeling much better now, with decreasing frequency of BMs, becoming thicker. C-diff (-). Has previously had colonoscopy a few yrs ago by G[facility] in [place]. Review of Systems Constitutional: No fever ENT: No unusual epistaxis Respiratory: No cough Cardiac: No chest pain Abdomen: + pain (LLA, much improved), + diarrhea (improving), No nausea, No vomiting Female : No dysuria Neuro: No memory loss Psych: No depression symptoms Heme: No abnormal bleeding/bruising Endo: No fatigue Skin: No rash Medications Current Inpatient Medications Medications (Trade) Dose Ordered Sig/Hattie Route Start Time Stop Time Status Last Admin Dose Admin Ioversol (Optiray 320) 100 ml UD PRN IV 04/22/17 01:15 04/26/17 01:14 Ondansetron HCl (Zofran Inj) 4 mg Q6H PRN IV 04/22/17 03:45 05/22/17 03:44 Acetaminophen (Tylenol Tab) 650 mg Q6 PRN PO 04/22/17 03:45 05/22/17 03:44 Carvedilol (Coreg Tab) 12.5 mg BID PO 04/22/17 09:00 05/22/17 08:59 04/24/17 08:26 12.5 MG Citalopram Hydrobromide (celeXA TAB) 40 mg DAILY PO 04/22/17 09:00 05/22/17 08:59 04/24/17 08:26 40 MG Gabapentin (Neurontin Cap) 300 mg TID PO 04/22/17 09:00 05/22/17 08:59 04/24/17 08:27 300 MG Tramadol HCl (Ultram Tab) 50 mg Q6 PRN PO 04/22/17 03:45 05/22/17 03:44 04/23/17 05:50 50 MG Metronidazole 500 mg/Prmx 100 ml @ 100 mls/hr Q8H IV 04/22/17 06:00 05/02/17 05:59 04/24/17 05:39 100 MLS/HR Ciprofloxacin/ Dextrose 400 mg/ Prmx 200 ml @ 100 mls/hr Q12H IV 04/22/17 06:00 05/02/17 05:59 04/24/17 06:19 100 MLS/HR Objective Vital Signs Date Time Temp Pulse Resp B/P (MAP) Pulse Ox O2 Delivery O2 Flow Rate FiO2 04/24/17 08:00 96 Room Air 04/24/17 07:08 36.9 64 20 118/85 (96) 96 Room Air 04/24/17 00:00 Room Air 04/23/17 23:00 36.7 64 18 96/62 (73) 94 Room Air 04/23/17 20:50 36.4 59 14 125/79 (94) 98 Room Air 04/23/17 20:00 Room Air 04/23/17 19:47 36.4 67 19 123/74 (90) 98 Room Air 04/23/17 16:00 Room Air 04/23/17 15:51 36.8 62 20 99/62 (74) 97 Room Air Physical Exam General Appearance: no apparent distress Neck: no JVD Respiratory/Chest: lungs clear Cardiovascular: regular rate, rhythm, no JVD, no murmur Abdomen: soft, + tenderness (very minimal LLQ ) Neurologic/Psych: alert, normal mood/affect, oriented x 3 Skin: normal color Laboratory Results Last 24 Hours Test 04/23/17 14:15 04/23/17 16:08 04/23/17 20:11 04/24/17 07:58 Stool Occult Blood POSITIVE Bedside Glucose 100 mg/dl 107 mg/dl White Blood Count 10.70 K/uL Red Blood Count 3.28 M/uL Hemoglobin 10.1 g/dL Hematocrit 30.2 % Mean Corpuscular Volume 92.1 fL Mean Corpuscular Hemoglobin 30.8 pg Mean Corpuscular Hemoglobin Concent 33.4 g/dl Platelet Count 384 K/uL Mean Platelet Volume 8.1 fL Neutrophils (%) (Auto) 65.8 % Lymphocytes (%) (Auto) 23.6 % Monocytes (%) (Auto) 7.1 % Eosinophils (%) (Auto) 2.6 % Basophils (%) (Auto) 0.4 % Neutrophils # (Auto) 7.04 K/uL Lymphocytes # (Auto) 2.53 K/uL Monocytes # (Auto) 0.76 K/uL Eosinophils # (Auto) 0.28 K/uL Basophils # (Auto) 0.04 K/uL RDW Standard Deviation 45.3 fL RDW Coefficient of Variation 13.5 % Immature Granulocyte % (Auto) 0.5 % Immature Granulocyte # (Auto) 0.05 K/uL Sodium Level 133 mmol/L Potassium Level 3.7 mmol/L Chloride Level 102 mmol/L Carbon Dioxide Level 24 mmol/L Anion Gap 7.0 mmol/L Blood Urea Nitrogen 8 mg/dl Creatinine 0.97 mg/dl Est Creatinine Clear Calc Drug Dose 47.2 ml/min Estimated GFR () 70.0 Estimated GFR (Non- 60.4 BUN/Creatinine Ratio 8.7 Random Glucose 102 mg/dl Calcium Level 7.9 mg/dl Magnesium Level 1.7 mg/dl Assessment and Plan Ms. Johnston is a 66 yr old female with likely ischemic colitis vs. infectious. Plan: 1. Broad spectrum antibiotics x total 10 days. 2. Advance diet. 3. Pt to f/u with GI in [place] who can decide if OP colonoscopy is indicated. 4. No GI contraindication to DC. 5. GI will sign off.
[2017-04-24] MEDS: TRAMADOL HCL 50 MG TAB PO PRN ×2 (14:23→23:31)
[2017-04-24 14:40] VITALS: BP 109/70; PULSE 68; TEMP 36.8; O2SAT 96
[2017-04-24 17:06] VITALS: O2SAT 96
--- NOTE | 2017-04-24 17:31 | Progress Note ---
Medicine Progress Note Date & Time of Visit: Apr 24, 2017 at 17:27. Subjective patient seen resting in bed, comfortable not in distress reports feeling queasy in the afternoon after eating fish, no nausea had 2 soft pasty stools with BM today denies abdominal pain, fever/chills no hematuria today, no urinary symptoms denies other symptoms Objective Last 8 Hrs Date Time Temp Pulse Resp B/P (MAP) Pulse Ox O2 Delivery O2 Flow Rate FiO2 04/24/17 17:06 96 Room Air 04/24/17 14:40 36.8 68 18 109/70 (83) 96 Room Air Physical Exam: General- oriented x 3, not in distress, speaks in sentences with no effort Eyes- anicteric Neck- supple, no JVD Lungs- clear breath sounds bilaterally Heart- regular rhythm; no murmur, normal rate Abdomen- normal bowel sounds, non distended, soft, NO suprapubic tenderness Extremities- no pretibial edema, no calf tenderness Neuro- alert, oriented x 3; no gross focal deficits Skin- warm & dry Laboratory Results: Last 24 Hours Test 04/23/17 20:11 04/24/17 07:58 Bedside Glucose 107 mg/dl White Blood Count 10.70 K/uL Red Blood Count 3.28 M/uL Hemoglobin 10.1 g/dL Hematocrit 30.2 % Mean Corpuscular Volume 92.1 fL Mean Corpuscular Hemoglobin 30.8 pg Mean Corpuscular Hemoglobin Concent 33.4 g/dl Platelet Count 384 K/uL Mean Platelet Volume 8.1 fL Neutrophils (%) (Auto) 65.8 % Lymphocytes (%) (Auto) 23.6 % Monocytes (%) (Auto) 7.1 % Eosinophils (%) (Auto) 2.6 % Basophils (%) (Auto) 0.4 % Neutrophils # (Auto) 7.04 K/uL Lymphocytes # (Auto) 2.53 K/uL Monocytes # (Auto) 0.76 K/uL Eosinophils # (Auto) 0.28 K/uL Basophils # (Auto) 0.04 K/uL RDW Standard Deviation 45.3 fL RDW Coefficient of Variation 13.5 % Immature Granulocyte % (Auto) 0.5 % Immature Granulocyte # (Auto) 0.05 K/uL Sodium Level 133 mmol/L Potassium Level 3.7 mmol/L Chloride Level 102 mmol/L Carbon Dioxide Level 24 mmol/L Anion Gap 7.0 mmol/L Blood Urea Nitrogen 8 mg/dl Creatinine 0.97 mg/dl Est Creatinine Clear Calc Drug Dose 47.2 ml/min Estimated GFR () 70.0 Estimated GFR (Non- 60.4 BUN/Creatinine Ratio 8.7 Random Glucose 102 mg/dl Calcium Level 7.9 mg/dl Magnesium Level 1.7 mg/dl Assessment & Plan 66 year old female with history of HTN, Anxiety presenting with vomiting and diarrhea. POSSIBLE INFECTIOUS COLITIS CT abdomen: Wall thickening of the ascending and transverse colon suggestive of colitis - stool cultures negative C diff negative Day 07/21 ciprofloxacin 400 mg q12 hours and Flagyl 500 mg IV q8 hours GI consulted outpatient colonoscopy recommended in 4-6 weeks - advanced diet to soft diet, IV NSS POSSIBLE UTI, PYELONEPHRITIS- LEFT - urine culture negative - symptoms improving continue Cipro + Metro for now Hypokalemia from GI losses K 2.2 given PO and IV K K now normal replace Mg Hematuria has history of smoking (+) 3cm right kidney cyst Urology consulted -- no hematuria today, Hg stable Osteoporosis Avoid alendronate at this time while vomiting HTN and dyslipidemia hold Losartan and HCTZ and Statin Continue home pain medications and citalopram DVT ppx: SCDs due to hematuria encouraged to ambulate Dispo anticipate d/c home tomorrow when medically stable Current Inpatient Medications: Current Inpatient Medications Medications (Trade) Dose Ordered Sig/Hattie Route Start Time Stop Time Status Last Admin Dose Admin Ioversol (Optiray 320) 100 ml UD PRN IV 04/22/17 01:15 04/26/17 01:14 Ondansetron HCl (Zofran Inj) 4 mg Q6H PRN IV 04/22/17 03:45 05/22/17 03:44 Acetaminophen (Tylenol Tab) 650 mg Q6 PRN PO 04/22/17 03:45 05/22/17 03:44 Carvedilol (Coreg Tab) 12.5 mg BID PO 04/22/17 09:00 05/22/17 08:59 04/24/17 08:26 12.5 MG Citalopram Hydrobromide (celeXA TAB) 40 mg DAILY PO 04/22/17 09:00 05/22/17 08:59 04/24/17 08:26 40 MG Gabapentin (Neurontin Cap) 300 mg TID PO 04/22/17 09:00 05/22/17 08:59 04/24/17 14:12 300 MG Tramadol HCl (Ultram Tab) 50 mg Q6 PRN PO 04/22/17 03:45 05/22/17 03:44 04/24/17 14:23 50 MG Ciprofloxacin (Cipro Tab) 500 mg BID PO 04/24/17 20:00 05/01/17 23:59 Metronidazole (Flagyl Tab) 500 mg TID PO 04/24/17 20:00 05/01/17 23:59 Magnesium Sulfate 2 gm/Prmx 100 ml @ 100 mls/hr ONE IV 04/24/17 17:15 05/24/17 17:14 UNV
[2017-04-24] MEDS: METRONIDAZOLE 500 MG TAB PO SCH (19:36)
[2017-04-24] MEDS: MAGNESIUM SULFATE 1GM / D5W 1 GM in PREMIXED IN D5W 100 ML IV SCH ×2 (19:36→20:38)
[2017-04-24] MEDS: CIPROFLOXACIN 500 MG TAB PO SCH (19:37)
[2017-04-24 20:36] VITALS: BP 115/73; PULSE 62
[2017-04-24 23:17] VITALS: BP 120/77; PULSE 55; TEMP 36.4; O2SAT 97
[2017-04-25 07:25] VITALS: PULSE 58
[2017-04-25] MEDS: METRONIDAZOLE 500 MG TAB PO SCH ×3 (07:26→19:57)
[2017-04-25] MEDS: CITALOPRAM 40 MG TAB PO SCH (07:27)
[2017-04-25] MEDS: GABAPENTIN 300 MG CAP PO SCH ×3 (07:27→19:58)
[2017-04-25] MEDS: CARVEDILOL 12.5 MG TAB PO SCH ×3 (07:27→19:58)
[2017-04-25] MEDS: CIPROFLOXACIN 500 MG TAB PO SCH ×2 (07:27→19:57)
[2017-04-25 07:41] VITALS: BP 120/82; PULSE 67; TEMP 36.7; O2SAT 100
[2017-04-25 09:31] LABS: BASO % 0.4 %; BASO ABS # 0.04 K/uL (0-0.2); EOS % 2.8 %; EOS ABS # 0.28 K/uL (0-0.5); HEMATOCRIT 31.7 % (37-47); HEMOGLOBIN 10.6 g/dL (12.0-16.0); IG# 0.04 K/uL (0.00-0.02); LYMPH % 25.9 %; LYMPH ABS # 2.63 K/uL (1.2-3.4); MEAN CELL VOLUME 92.2 fL (80-100); MEAN CORPUSCULAR HEMOGLOBIN 30.8 pg (25-34); MEAN CORPUSCULAR HGB CONC 33.4 g/dl (32-36); MEAN PLATELET VOLUME 8.4 fL (7.4-10.4); MONO % 7.5 %; MONO ABS # 0.76 K/uL (0.11-0.59); PLATELET COUNT 403 K/uL (130-400); RED CELL DISTRIBUTION WIDTH CV 13.5 % (11.5-14.5); RED CELL DISTRIBUTION WIDTH SD 45.4 fL (36.4-46.3); WHITE BLOOD COUNT 10.15 K/uL (4.8-10.8)
[2017-04-25 10:02] LABS: CALCIUM 8.1 mg/dl (8.5-10.1); CREATININE 0.94 mg/dl (0.60-1.20); POTASSIUM 3.4 mmol/L (3.5-5.1)
--- NOTE | 2017-04-25 10:44 | Urology Consultation ---
History General Date of Service: Apr 25, 2017. Chief Complaint: hematuria Primary Care Physician: Ronald Cortes M.D. Pt seen a urologist before?: No History of Present Illness I am asked by Dr Burnham to [id number] and treat patient for hematuria. She has had painless gross hematuria on and off for the last 4 months. It is francisco and lasts a few voids or a few days. She has a possible uti right now. Urine culture was contaminated upon collection so cant be read. The ct suggests the bladder is very thickened. She also has some mottled enhancement of the left kidney but it is non specific. She did not present with symptoms if cytitis or pyelonephritis. She is a life long smoker Imaging Imaging: CT Laboratory Results Past 24 Hours Test 04/25/17 08:59 Range/Units White Blood Count 10.15 4.8-10.8 K/uL Red Blood Count 3.44 4.2-5.4 M/uL Hemoglobin 10.6 12.0-16.0 g/dL Hematocrit 31.7 37-47 % Mean Corpuscular Volume 92.2 80-100 fL Mean Corpuscular Hemoglobin 30.8 25-34 pg Mean Corpuscular Hemoglobin Concent 33.4 32-36 g/dl Platelet Count 403 130-400 K/uL Mean Platelet Volume 8.4 7.4-10.4 fL Neutrophils (%) (Auto) 63.0 % Lymphocytes (%) (Auto) 25.9 % Monocytes (%) (Auto) 7.5 % Eosinophils (%) (Auto) 2.8 % Basophils (%) (Auto) 0.4 % Neutrophils # (Auto) 6.40 1.4-6.5 K/uL Lymphocytes # (Auto) 2.63 1.2-3.4 K/uL Monocytes # (Auto) 0.76 0.11-0.59 K/uL Eosinophils # (Auto) 0.28 0-0.5 K/uL Basophils # (Auto) 0.04 0-0.2 K/uL RDW Standard Deviation 45.4 36.4-46.3 fL RDW Coefficient of Variation 13.5 11.5-14.5 % Immature Granulocyte % (Auto) 0.4 % Immature Granulocyte # (Auto) 0.04 0.00-0.02 K/uL Sodium Level 134 136-145 mmol/L Potassium Level 3.4 3.5-5.1 mmol/L Chloride Level 100 98-107 mmol/L Carbon Dioxide Level 27 21-32 mmol/L Anion Gap 7.0 3-11 mmol/L Blood Urea Nitrogen 8 7-18 mg/dl Creatinine 0.94 0.60-1.20 mg/dl Est Creatinine Clear Calc Drug Dose 48.7 ml/min Estimated GFR () 72.8 Estimated GFR (Non- 62.8 BUN/Creatinine Ratio 8.0 10-20 Random Glucose 107 70-99 mg/dl Calcium Level 8.1 8.5-10.1 mg/dl Magnesium Level 2.0 1.8-2.4 mg/dl Labs were reviewed and are within normal limits unless listed below. Labs are available in the chart and at [facility] Problem List Medical Problems: (1) Colitis Status: Acute (2) Hypokalemia Status: Acute (3) Hyponatremia Status: Acute Past History diabetes, high cholesterol, hypertension, lung disease Past Surgical History: other (laparotomy for trauma, left knee and ankle surgery trauam) Family History Cancer Diabetes mellitus Heart disease Hypertension Lung disease Social History Hx Tobacco Use In Past Year?: Yes Smokin pack/day Alcohol: never Drug use: none Marital status: Housing status: lives with family Occupation status: retired History of MDRO No Allergies Coded Allergies: BEE STING (Verified Allergy, Severe, SWELLING SEVERE, 04/22/17) Medications Home Medications: Home Meds and Scripts Medications Dose Route/Sig Max Daily Dose Days Date Category Dose Instructions Micro-K Ext Rel (Potassium Chloride) 10 Meq Capcr 10 Meq PO BID 04/22/17 Reported Voltaren (Diclofenac Sodium) 75 Mg Tabcr 75 Mg PO BID PRN 04/22/17 Reported WITH FOOD Fosamax+D 70MG/2800 Iu (Alendronate Sodium/Vitamin D3) 70 Mg Tab 1 Tablet PO WK 04/22/17 Reported Celexa (Citalopram Hydrobromide) 40 Mg Tab 40 Mg PO DAILY 04/22/17 Reported Coreg (Carvedilol) 12.5 Mg Tab 12.5 Mg PO BID 04/22/17 Reported Hyzaar 25MG/100MG (HCTZ/Losartan Potassium) Tab 1 Tab PO DAILY 04/22/17 Reported Zantac (Ranitidine HCl) 150 Mg Tab 150 Mg PO DAILY 04/22/17 Reported Neurontin (Gabapentin) 300 Mg Cap 300 Mg PO TID 04/22/17 Reported Ultram (Tramadol HCl) 50 Mg Tab 1 Tab PO Q6 PRN 04/22/17 Reported Aspirin Chewable (Aspirin) 81 Mg Chew 81 Mg PO DAILY 04/22/17 Reported Tylenol (Acetaminophen) 325 Mg Tab 650 Mg PO Q6 PRN 04/22/17 Reported Calcium 600 + D (Calcium Carbonate-Vitamin D) 1 Tab Tab 1 Tab PO BID 04/22/17 Reported Aurora-3 (Fish Oil) 1 Ea Cap 1 Cap PO DAILY 04/22/17 Reported Multivitamin (Multivitamins) Tab 1 Tab PO DAILY 02/07/14 Reported Zocor (Simvastatin) 40 Mg Tab 40 Mg PO QPM 10/05/13 Reported Inpatient Medications: Current Inpatient Medications Medications (Trade) Dose Ordered Sig/Hattie Route Start Time Stop Time Status Last Admin Dose Admin Ioversol (Optiray 320) 100 ml UD PRN IV 04/22/17 01:15 04/26/17 01:14 Ondansetron HCl (Zofran Inj) 4 mg Q6H PRN IV 04/22/17 03:45 05/22/17 03:44 04/25/17 09:11 4 MG Acetaminophen (Tylenol Tab) 650 mg Q6 PRN PO 04/22/17 03:45 05/22/17 03:44 Carvedilol (Coreg Tab) 12.5 mg BID PO 04/22/17 09:00 05/22/17 08:59 04/24/17 20:38 12.5 MG Citalopram Hydrobromide (celeXA TAB) 40 mg DAILY PO 04/22/17 09:00 05/22/17 08:59 04/25/17 07:27 40 MG Gabapentin (Neurontin Cap) 300 mg TID PO 04/22/17 09:00 05/22/17 08:59 04/25/17 07:27 300 MG Tramadol HCl (Ultram Tab) 50 mg Q6 PRN PO 04/22/17 03:45 05/22/17 03:44 04/24/17 23:31 50 MG Ciprofloxacin (Cipro Tab) 500 mg BID PO 04/24/17 20:00 05/01/17 23:59 04/25/17 07:27 500 MG Metronidazole (Flagyl Tab) 500 mg TID PO 04/24/17 20:00 05/01/17 23:59 04/25/17 07:26 500 MG Review of Systems Review of Systems Constitutional: + weight loss, No fever, No chills Neurological: + dizzy Endocrine: + excessive thirst Gastrointestinal: + abdominal pain, + indigestion, + nausea, + vomiting, + diarrhea Cardiovascular: No chest pain, No palpitations, No swelling ankles/feet Respiratory: + shortness of breath, + wheezing, + chronic cough Musculoskeletal: + back pain, No joint pain, No neck pain Female : + frequent urination, + blood in urine, No vaginal discharge Physical Exam Vital Signs: Vital Signs Past 12 Hours Date Time Temp Pulse Resp B/P (MAP) Pulse Ox O2 Delivery O2 Flow Rate FiO2 04/25/17 07:41 36.7 67 18 120/82 (95) 100 Room Air 04/25/17 07:25 58 04/25/17 07:15 Room Air 04/24/17 23:17 36.4 55 18 120/77 (91) 97 Room Air Physical Exam: General Appearance: WD/WN, no apparent distress, + thin Eyes: bilateral eyes normal inspection ENT: hearing grossly normal Neck: no adenopathy, no JVD, trachea midline Respiratory/Chest: no respiratory distress, no accessory muscle use Gastrointestinal: Abdomen: normal abdomen Bladder: normal bladder Renal: normal renal Hernia: absent hernia Extremities: normal inspection, no pedal edema, no calf tenderness, + pertinent finding (skin graft left medial knee, incision left foot) Neurologic/Psychiatric: alert, normal mood/affect, oriented x 3 Skin: normal color, warm/dry, no rash Lymphatic: no adenopathy Assessment & Plan Assessment & Plan intermittent gross painless hematuria life long smoker needs cysto as outpatient we will call her once discharged to set up doubt pyelonephritis treat for cystitis 5-7 days abt should be fine
[2017-04-25 15:06] VITALS: BP 99/58; PULSE 91; TEMP 36.8; O2SAT 93
--- NOTE | 2017-04-25 16:48 | Progress Note ---
Medicine Progress Note Date & Time of Visit: Apr 25, 2017 at 16:46. Subjective seen resting in bed, comfortable states she feels ok today had 2 episodes of vomiting today no abdominal pain no BM yet no problems urinating denies other symptoms Objective Last 8 Hrs Date Time Temp Pulse Resp B/P (MAP) Pulse Ox O2 Delivery O2 Flow Rate FiO2 04/25/17 16:22 Room Air 04/25/17 15:06 36.8 91 18 99/58 (72) 93 Room Air Physical Exam: General- oriented x 3, not in distress, speaks in sentences with no effort Neck- no JVD Lungs- clear BS bilaterally Heart- regular rhythm; no murmur, normal rate Abdomen- normal bowel sounds, non distended, soft, NO suprapubic tenderness Extremities- no pretibial edema, no calf tenderness Neuro- alert, oriented x 3; no gross focal deficits Skin- warm & dry Laboratory Results: Last 24 Hours Test 04/25/17 08:59 White Blood Count 10.15 K/uL Red Blood Count 3.44 M/uL Hemoglobin 10.6 g/dL Hematocrit 31.7 % Mean Corpuscular Volume 92.2 fL Mean Corpuscular Hemoglobin 30.8 pg Mean Corpuscular Hemoglobin Concent 33.4 g/dl Platelet Count 403 K/uL Mean Platelet Volume 8.4 fL Neutrophils (%) (Auto) 63.0 % Lymphocytes (%) (Auto) 25.9 % Monocytes (%) (Auto) 7.5 % Eosinophils (%) (Auto) 2.8 % Basophils (%) (Auto) 0.4 % Neutrophils # (Auto) 6.40 K/uL Lymphocytes # (Auto) 2.63 K/uL Monocytes # (Auto) 0.76 K/uL Eosinophils # (Auto) 0.28 K/uL Basophils # (Auto) 0.04 K/uL RDW Standard Deviation 45.4 fL RDW Coefficient of Variation 13.5 % Immature Granulocyte % (Auto) 0.4 % Immature Granulocyte # (Auto) 0.04 K/uL Sodium Level 134 mmol/L Potassium Level 3.4 mmol/L Chloride Level 100 mmol/L Carbon Dioxide Level 27 mmol/L Anion Gap 7.0 mmol/L Blood Urea Nitrogen 8 mg/dl Creatinine 0.94 mg/dl Est Creatinine Clear Calc Drug Dose 48.7 ml/min Estimated GFR () 72.8 Estimated GFR (Non- 62.8 BUN/Creatinine Ratio 8.0 Random Glucose 107 mg/dl Calcium Level 8.1 mg/dl Magnesium Level 2.0 mg/dl Assessment & Plan 66 year old female with history of HTN, Anxiety presenting with vomiting and diarrhea. POSSIBLE INFECTIOUS COLITIS CT abdomen: Wall thickening of the ascending and transverse colon suggestive of colitis - stool cultures negative C diff negative Day 07/21 ciprofloxacin 400 mg q12 hours and Flagyl 500 mg q8 hours GI consulted outpatient colonoscopy recommended in 4-6 weeks - advanced diet to soft diet POSSIBLE UTI, PYELONEPHRITIS- LEFT - urine culture negative - symptoms improving continue Cipro + Metro for now Hypokalemia from GI losses given PO and IV K replace Hematuria has history of smoking (+) 3cm right kidney cyst Urology consulted -- no hematuria today, Hg stable -- outpatient Cysto c/o Urology Positive FOBT -- from colitis? Hg 10 -- needs to be followed up as outpatient Osteoporosis Avoid alendronate at this time while vomiting HTN and dyslipidemia hold Losartan and HCTZ and Statin Anemia -- stable at 10 further work up and monitor as outpatient Continue home pain medications and citalopram DVT ppx: SCDs due to hematuria encouraged to ambulate Dispo anticipate d/c home tomorrow when medically stable Current Inpatient Medications: Current Inpatient Medications Medications (Trade) Dose Ordered Sig/Hattie Route Start Time Stop Time Status Last Admin Dose Admin Ioversol (Optiray 320) 100 ml UD PRN IV 04/22/17 01:15 04/26/17 01:14 Ondansetron HCl (Zofran Inj) 4 mg Q6H PRN IV 04/22/17 03:45 05/22/17 03:44 04/25/17 09:11 4 MG Acetaminophen (Tylenol Tab) 650 mg Q6 PRN PO 04/22/17 03:45 05/22/17 03:44 Carvedilol (Coreg Tab) 12.5 mg BID PO 04/22/17 09:00 05/22/17 08:59 04/24/17 20:38 12.5 MG Citalopram Hydrobromide (celeXA TAB) 40 mg DAILY PO 04/22/17 09:00 05/22/17 08:59 04/25/17 07:27 40 MG Gabapentin (Neurontin Cap) 300 mg TID PO 04/22/17 09:00 05/22/17 08:59 04/25/17 14:07 300 MG Tramadol HCl (Ultram Tab) 50 mg Q6 PRN PO 04/22/17 03:45 05/22/17 03:44 04/24/17 23:31 50 MG Ciprofloxacin (Cipro Tab) 500 mg BID PO 04/24/17 20:00 05/01/17 23:59 04/25/17 07:27 500 MG Metronidazole (Flagyl Tab) 500 mg TID PO 04/24/17 20:00 05/01/17 23:59 04/25/17 14:07 500 MG Potassium Chloride (Klor-Con M10) 40 meq ONE PO 04/25/17 16:45 05/25/17 16:44 UNV
[2017-04-25] MEDS ORDERED: POTASSIUM CHLORIDE 10 MEQ TABCR PO SCH (17:00)
[2017-04-25] MEDS: TRAMADOL HCL 50 MG TAB PO PRN (19:59)
[2017-04-26 00:21] VITALS: BP 113/70; PULSE 66; TEMP 36.5; O2SAT 98
[2017-04-26 07:13] LABS: BASO % 0.5 %; BASO ABS # 0.05 K/uL (0-0.2); EOS % 3.2 %; EOS ABS # 0.31 K/uL (0-0.5); HEMATOCRIT 29.4 % (37-47); IG# 0.03 K/uL (0.00-0.02); LYMPH % 24.2 %; LYMPH ABS # 2.31 K/uL (1.2-3.4); MEAN CELL VOLUME 93.6 fL (80-100); MEAN CORPUSCULAR HEMOGLOBIN 31.8 pg (25-34); MEAN PLATELET VOLUME 8.4 fL (7.4-10.4); MONO % 9.6 %; MONO ABS # 0.92 K/uL (0.11-0.59); NEUT % 62.2 %; NEUT ABS # 5.94 K/uL (1.4-6.5); PLATELET COUNT 370 K/uL (130-400); RED CELL DISTRIBUTION WIDTH CV 13.7 % (11.5-14.5); RED CELL DISTRIBUTION WIDTH SD 46.8 fL (36.4-46.3); WHITE BLOOD COUNT 9.56 K/uL (4.8-10.8)
[2017-04-26 07:30] VITALS: BP 117/69; PULSE 66; TEMP 36.8; O2SAT 95
[2017-04-26 07:53] LABS: CREATININE 1.05 mg/dl (0.60-1.20)
[2017-04-26 07:58] LABS: POTASSIUM 4.3 mmol/L (3.5-5.1)
[2017-04-26] MEDS: CARVEDILOL 12.5 MG TAB PO SCH (08:26)
[2017-04-26] MEDS: CITALOPRAM 40 MG TAB PO SCH (08:26)
[2017-04-26] MEDS: GABAPENTIN 300 MG CAP PO SCH (08:26)
[2017-04-26] MEDS: METRONIDAZOLE 500 MG TAB PO SCH (08:27)
[2017-04-26] MEDS: CIPROFLOXACIN 500 MG TAB PO SCH (08:27)
[2017-04-26] MEDS ORDERED: MAGNESIUM OXIDE 400 MG TAB PO ONE (09:28)
--- NOTE | 2017-04-26 14:41 | Progress Note ---
Medicine Progress Note Date & Time of Visit: Apr 26, 2017 at 14:32. Subjective patient seen resting in bed, comfortable states she feels well overall denies abdominal pain, nausea, vomiting no BM today denies other symptoms states she is ready and would like to be discharged today Objective Last 8 Hrs Date Time Temp Pulse Resp B/P (MAP) Pulse Ox O2 Delivery O2 Flow Rate FiO2 04/26/17 08:25 Room Air 04/26/17 07:30 36.8 66 18 117/69 (85) 95 Room Air Physical Exam: General- oriented x 3, not in distress, speaks in sentences with no effort Neck- no JVD Lungs- clear breath sounds bilaterally Heart- regular rhythm; no murmur, normal rate Abdomen- normal bowel sounds, non distended, soft Extremities- no pretibial edema, no calf tenderness Neuro- alert, oriented x 3 Skin- warm & dry Laboratory Results: Last 24 Hours Test 04/26/17 05:52 White Blood Count 9.56 K/uL Red Blood Count 3.14 M/uL Hemoglobin 10.0 g/dL Hematocrit 29.4 % Mean Corpuscular Volume 93.6 fL Mean Corpuscular Hemoglobin 31.8 pg Mean Corpuscular Hemoglobin Concent 34.0 g/dl Platelet Count 370 K/uL Mean Platelet Volume 8.4 fL Neutrophils (%) (Auto) 62.2 % Lymphocytes (%) (Auto) 24.2 % Monocytes (%) (Auto) 9.6 % Eosinophils (%) (Auto) 3.2 % Basophils (%) (Auto) 0.5 % Neutrophils # (Auto) 5.94 K/uL Lymphocytes # (Auto) 2.31 K/uL Monocytes # (Auto) 0.92 K/uL Eosinophils # (Auto) 0.31 K/uL Basophils # (Auto) 0.05 K/uL RDW Standard Deviation 46.8 fL RDW Coefficient of Variation 13.7 % Immature Granulocyte % (Auto) 0.3 % Immature Granulocyte # (Auto) 0.03 K/uL Sodium Level 136 mmol/L Potassium Level 4.3 mmol/L Chloride Level 102 mmol/L Carbon Dioxide Level 28 mmol/L Anion Gap 6.0 mmol/L Blood Urea Nitrogen 11 mg/dl Creatinine 1.05 mg/dl Est Creatinine Clear Calc Drug Dose 43.6 ml/min Estimated GFR () 63.6 Estimated GFR (Non- 54.9 BUN/Creatinine Ratio 10.5 Random Glucose 102 mg/dl Calcium Level 8.0 mg/dl Magnesium Level 1.7 mg/dl Chemistry Specimen Hemolysis Assessment & Plan 66 year old female with history of HTN, Anxiety presenting with vomiting and diarrhea. POSSIBLE INFECTIOUS COLITIS CT abdomen: Wall thickening of the ascending and transverse colon suggestive of colitis - stool cultures negative C diff negative Day 08/20 ciprofloxacin 400 mg q12 hours and Flagyl 500 mg q8 hours GI consulted - continue Cipro 500mg po BID and Flagyl 500mg TID x 5 days outpatient colonoscopy recommended in 4-6 weeks POSSIBLE UTI - urine culture negative - symptoms improved continue Cipro + Metro Hypokalemia from GI losses given PO and IV K resolved Hypomagnesemia continue Mg supplement, monitor Hematuria has history of smoking (+) 3cm right kidney cyst Urology consulted- Dr. Asencio -- no recurrence of hematuria, Hg stable -- outpatient Cystoscopy c/o Urologist Dr. Asencio Positive FOBT Anemia -- from colitis? Hg 10, stable denies melena/hematochezia -- needs to be followed up as outpatient Osteoporosis Avoid alendronate at this time while vomiting HTN and dyslipidemia hold Losartan and HCTZ and Statin as patient's BP stable - syst 100-120 monitor as outpatient Anemia -- stable at 10 further work up and monitor as outpatient DVT ppx: SCDs due to hematuria encouraged to ambulate Dispo d/c home ff up with PCP in 3-5 days ff up with GI for Colonoscopy ff up with Urologist Dr. Asencio for Cystoscopy Current Inpatient Medications: Current Inpatient Medications Medications (Trade) Dose Ordered Sig/Hattie Route Start Time Stop Time Status Last Admin Dose Admin Ondansetron HCl (Zofran Inj) 4 mg Q6H PRN IV 04/22/17 03:45 05/22/17 03:44 04/25/17 09:11 4 MG Acetaminophen (Tylenol Tab) 650 mg Q6 PRN PO 04/22/17 03:45 05/22/17 03:44 Carvedilol (Coreg Tab) 12.5 mg BID PO 04/22/17 09:00 05/22/17 08:59 04/26/17 08:26 12.5 MG Citalopram Hydrobromide (celeXA TAB) 40 mg DAILY PO 04/22/17 09:00 2/9/18 08:59 04/26/17 08:26 40 MG Gabapentin (Neurontin Cap) 300 mg TID PO 04/22/17 09:00 05/22/17 08:59 04/26/17 08:26 300 MG Tramadol HCl (Ultram Tab) 50 mg Q6 PRN PO 04/22/17 03:45 05/22/17 03:44 04/25/17 19:59 50 MG Ciprofloxacin (Cipro Tab) 500 mg BID PO 04/24/17 20:00 05/01/17 23:59 04/26/17 08:27 500 MG Metronidazole (Flagyl Tab) 500 mg TID PO 04/24/17 20:00 05/01/17 23:59 04/26/17 08:27 500 MG Magnesium Oxide (Mag-Ox Tab) 400 mg BID PO 04/26/17 20:00 05/26/17 19:59
[2017-04-26] MEDS ORDERED: ONDA4TAB65 PO (14:47)
[2017-04-26] MEDS ORDERED: MTR500 PO (14:47)
[2017-04-26] MEDS ORDERED: CPR500 PO (14:47)
[2017-04-26] MEDS ORDERED: MGNO400 PO (14:47)
--- NOTE | 2017-04-26 14:52 | Discharge Instructions ---
Discharge Instructions Date of Service Apr 26, 2017. Admission Reason for Admission: Abd Pain, Diarrhea, Hypokalemia, Vomiting Discharge Discharge Diagnosis / Problem: COLITIS Discharge Goals Goal(s): Diagnostic testing, Therapeutic intervention Activity Recommendations Activity Limitations: as noted below (RESUME ACTIVITY GRADUALLY TOLERATED) Lifting Limitations: until after follow-up appointment Exercise/Sports Limitations: until after follow-up appointment . Instructions / Follow-Up Instructions / Follow-Up PLEASE REVIEW YOUR NEW MEDICATION LIST AND FOLLOW INSTRUCTIONS CAREFULLY. CALL YOUR PRIMARY CARE PHYSICIAN OR RETURN TO ER IMMEDIATELY IF WITH RECURRENCE OF SYMPTOMS, DIARRHEA, NAUSEA/VOMITING, ABDOMINAL PAIN, BLOOD IN THE STOOLS OR URINE, WEAKNESS. FOLLOW UP WITH PRIMARY CARE PHYSICIAN IN 3-5 DAYS (CLINIC WILL BE CALLING YOU FOR THE APPOINTMENT). FOLLOW UP WITH [facility] FOR FOLLOW UP AND SCHEDULE OF COLONOSCOPY. FOLLOW UP WITH UROLOGIST DR. PAIGE FOR FOLLOW UP AND SCHEDULE FOR CYSTOSCOPY. Current Hospital Diet Patient's current hospital diet: AHA Diet (Heart Healthy) Discharge Diet Recommended Diet: AHA Diet (Heart Healthy) Procedures Procedures Performed: CT SCAN OF ABDOMEN AND PELVIS Pending Studies Studies pending at discharge: yes List of pending studies: REPEAT BLOOD WORK C/O PRIMARY CARE PHYSICIAN Medical Emergencies . Who to Call and When: Medical Emergencies: If at any time you feel your situation is an emergency, please call 911 immediately. . Non-Emergent Contact Non-Emergency issues call your: Primary Care Provider Call Non-Emergent contact if: you have a fever, your pain is not controlled, your pain is worsening, you have any medication questions . . "Provider Documentation" section prepared by Rogers Burnham. . VTE Core Measure Inpt VTE Proph given/why not?: SCD's
[2017-04-26 14:53] VITALS: BP 98/62; PULSE 64; TEMP 37; O2SAT 96
--- NOTE | 2017-04-26 14:56 | Discharge Summary ---
Discharge Summary Date of Service Apr 26, 2017. Discharge Summary Admission Date: Apr 22, 2017 at 03:41 Discharge Date: Apr 26, 2017 Discharge Disposition: Home Principal Diagnosis: INFECTIOUS COLITIS Secondary Diagnoses/Problems: Please refer so hospital course below. Procedures: ABDOMEN AND PELVIS CT WITH IV CONTRAST CT DOSE: 417.89 mGycm HISTORY: abdominal pain to right of umbilicus TECHNIQUE: Multiaxial CT images of the abdomen and pelvis were performed following the use of intravenous contrast. A dose lowering technique was utilized adhering to the principles of ALARA. COMPARISON STUDY: None. FINDINGS: The lung bases are clear. No pneumoperitoneum. No pneumatosis. No fractures within the visualized osseous structures. 7 mm lipoma along the periphery the right hepatic lobe. The spleen is unremarkable. Mild cortical thinning/scarring within the kidneys. No hydronephrosis. A 3 cm cyst within the right kidney. Mildly ectatic abdominal aorta measuring up to 2.5 cm in diameter. No retroperitoneal lymphadenopathy. The uterus and bilateral adnexa are unremarkable. There is moderate bladder wall thickening. Normal appendix. No evidence for bowel obstruction. Thickening of the ascending colon and proximal to mid transverse colon. Some of this could be related to underdistention. A 9 mm lipoma within the proximal transverse colon. Probable small posterior uterine fibroid. Mild heterogeneous enhancement within the upper pole of the left kidney. IMPRESSION: 1. Moderate bladder wall thickening consistent with a cystitis. Recommend correlation with urinalysis. 2. There is mild heterogeneous enhancement within the upper pole the left kidney. This raises the possibility of developing pyelonephritis. This can also be assessed with a urinalysis. 3. Mild thickening versus under distention within the ascending colon and transverse colon. This may represent a mild nonspecific colitis. Medication Reconciliation New Medications: Ondansetron Hcl (Zofran) 4 Mg Tab 4 MG PO Q8 PRN for Nausea, #10 TAB Ciprofloxacin (Ciprofloxacin HCl) 500 Mg Tab 500 MG PO BID for 5 Days, #10 TAB 0 Refills Magnesium Oxide (Magnesium-Oxide) 400 Mg Tab 400 MG PO BID for 5 Days, #10 TAB 0 Refills Metronidazole (Metronidazole) 500 Mg Tab 500 MG PO TID for 5 Days, #15 TAB 0 Refills Continued Medications: Acetaminophen Tab (Tylenol) 325 Mg Tab 650 MG PO Q6 PRN for fever/pain/headache, TAB Alendronate/Cholecalciferol (Fosamax+D 70MG/2800 Iu) 70 Mg Tab 1 TABLET PO WK, TAB Calcium Carbonate-Vitamin D (Calcium 600 + D) 1 Tab Tab 1 TAB PO BID Carvedilol (Coreg) 12.5 Mg Tab 12.5 MG PO BID, TAB Citalopram Hydrobromide (Celexa) 40 Mg Tab 40 MG PO DAILY, TAB Fish Oil ([place]-3) 1 Ea Cap 1 CAP PO DAILY, CAP Gabapentin (Neurontin) 300 Mg Cap 300 MG PO TID, CAP Multivitamin (Multivitamin) Tab 1 TAB PO DAILY, TAB Potassium Chloride (Micro-K Ext Rel) 10 Meq Capcr 10 MEQ PO BID, CAP Ranitidine Hcl (Zantac) 150 Mg Tab 150 MG PO DAILY, TAB Simvastatin (Zocor) 40 Mg Tab 40 MG PO QPM, TAB Tramadol (Ultram) 50 Mg Tab 1 TAB PO Q6 PRN for Moderate Pain, TAB Discontinued Medications: Aspirin (Aspirin Chewable) 81 Mg Chew 81 MG PO DAILY Diclofenac (Voltaren) 75 Mg Tabcr 75 MG PO BID PRN for Pain WITH FOOD Hctz/Losartan (Hyzaar 25MG/100MG) Tab 1 TAB PO DAILY, TAB Admission Information HPI (per Admitting provider): 66 year old Patient with vomiting and diarrhea x 1 week. Abdominal imaging concerning for colitis. Patient reports that symptoms have become worse after 1 week of vomiting and diarrhea and associates most of the discomfort of lower abdomen towards the bladder. When asked if symptoms of abdominal discomfort is associated with urination, patient reports that pain is worse with urination. Physical Exam (per Admitting): General Appearance: no apparent distress Head: normocephalic, atraumatic Eyes: normal inspection, EOMI, sclerae normal ENT: normal ENT inspection, hearing grossly normal, pharynx normal Neck: supple, no JVD, trachea midline Respiratory/Chest: chest non-tender, lungs clear, normal breath sounds, no respiratory distress, no accessory muscle use Cardiovascular: regular rate, rhythm, no edema, no JVD Abdomen/GI: normal bowel sounds, soft, no organomegaly, + pertinent finding (tenderness lower abdomen towards bladder) Back: normal inspection, no CVA tenderness, no muscle spasm, normal range of motion Extremities/Musculoskelatal: normal inspection, no calf tenderness, no pedal edema, normal range of motion, + pertinent finding (left knee scar from surgery in the past) Neurologic/Psych: alert, normal mood/affect, oriented x 3 Skin: warm/dry, + pertinent finding (left knee scar from previous surgery in the past) Hospital Course 66 year old female with history of HTN, Anxiety presenting with vomiting and diarrhea. POSSIBLE INFECTIOUS COLITIS CT abdomen: Wall thickening of the ascending and transverse colon suggestive of colitis - stool cultures negative C diff negative Day 5/10 ciprofloxacin 400 mg q12 hours and Flagyl 500 mg q8 hours GI consulted - continue Cipro 500mg po BID and Flagyl 500mg TID x 5 days outpatient colonoscopy recommended in 4-6 weeks POSSIBLE UTI - urine culture negative - symptoms improved continue Cipro + Metro Hypokalemia from GI losses given PO and IV K resolved Hypomagnesemia continue Mg supplement, monitor Hematuria has history of smoking (+) 3cm right kidney cyst Urology consulted- Dr. Asencio -- no recurrence of hematuria, Hg stable -- outpatient Cystoscopy c/o Urologist Dr. Asencio Positive FOBT Anemia -- from colitis? Hg 10, stable denies melena/hematochezia -- needs to be followed up as outpatient Osteoporosis Avoid alendronate at this time while vomiting HTN and dyslipidemia hold Losartan and HCTZ and Statin as patient's BP stable - syst 100-120 monitor as outpatient Anemia -- stable at 10 further work up and monitor as outpatient Abnormal CT findings - please refer to full CT scan report in the procedure section above - right renal cyst, uterine fibroid, ectatic abdominal aorta DVT ppx: SCDs due to hematuria encouraged to ambulate Dispo d/c home ff up with PCP in 3-5 days ff up with GI for Colonoscopy ff up with Urologist Dr. Asencio for Cystoscopy Total time spent on discharge = 30 minutes This includes examination of the patient, discharge planning, medication reconciliation, and communication with other providers. Discharge Instructions Discharge Instructions Date of Service Apr 26, 2017. Admission Reason for Admission: Abd Pain, Diarrhea, Hypokalemia, Vomiting Discharge Discharge Diagnosis / Problem: COLITIS Discharge Goals Goal(s): Diagnostic testing, Therapeutic intervention Activity Recommendations Activity Limitations: as noted below (RESUME ACTIVITY GRADUALLY TOLERATED) Lifting Limitations: until after follow-up appointment Exercise/Sports Limitations: until after follow-up appointment . Instructions / Follow-Up Instructions / Follow-Up PLEASE REVIEW YOUR NEW MEDICATION LIST AND FOLLOW INSTRUCTIONS CAREFULLY. CALL YOUR PRIMARY CARE PHYSICIAN OR RETURN TO ER IMMEDIATELY IF WITH RECURRENCE OF SYMPTOMS, DIARRHEA, NAUSEA/VOMITING, ABDOMINAL PAIN, BLOOD IN THE STOOLS OR URINE, WEAKNESS. FOLLOW UP WITH PRIMARY CARE PHYSICIAN IN 3-5 DAYS (CLINIC WILL BE CALLING YOU FOR THE APPOINTMENT). FOLLOW UP WITH [facility] FOR FOLLOW UP AND SCHEDULE OF COLONOSCOPY. FOLLOW UP WITH UROLOGIST DR. PAIGE FOR FOLLOW UP AND SCHEDULE FOR CYSTOSCOPY. Current Hospital Diet Patient's current hospital diet: AHA Diet (Heart Healthy) Discharge Diet Recommended Diet: AHA Diet (Heart Healthy) Procedures Procedures Performed: CT SCAN OF ABDOMEN AND PELVIS Pending Studies Studies pending at discharge: yes List of pending studies: REPEAT BLOOD WORK C/O PRIMARY CARE PHYSICIAN Medical Emergencies . Who to Call and When: Medical Emergencies: If at any time you feel your situation is an emergency, please call 911 immediately. . Non-Emergent Contact Non-Emergency issues call your: Primary Care Provider Call Non-Emergent contact if: you have a fever, your pain is not controlled, your pain is worsening, you have any medication questions . . "Provider Documentation" section prepared by Rogers Burnham. . VTE Core Measure Inpt VTE Proph given/why not?: SCD's
[2017-04-26 15:18] VITALS: BP 98/62; PULSE 64; TEMP 37; O2SAT 96
[2017-04-26] MEDS ORDERED: MAGNESIUM OXIDE 400 MG TAB PO SCH (20:00)
== END 2017-04-26 15:35 | disposition home or self-care (01) | DRG 394 ==
LOC: C.EDB 22:14 → C.2T 04-22 03:41 → EDBEDREQSVC 04-22 03:42 → ENRESERV 04-22 03:45 → CANRESERV 04-22 03:45 → ENRESERV 04-22 04:13 → C.MS4W 04-23 20:46
PROVIDERS: ADMIT Hospitalist; ATTEND Internal Medicine
DX: K55.9 Vascular disorder of intestine, unspecified (principal); A09 Infectious gastroenteritis and colitis, unspecified; N12 Tubulo-interstitial nephritis, not specified as acute or chronic; D72.829 Elevated white blood cell count, unspecified; E87.6 Hypokalemia; M81.0 Age-related osteoporosis without current pathological fracture; I10 Essential (primary) hypertension; E78.5 Hyperlipidemia, unspecified; F17.200 Nicotine dependence, unspecified, uncomplicated; Z83.3 Family history of diabetes mellitus; Z82.49 Family history of ischemic heart disease and other diseases of the circulatory system; D64.9 Anemia, unspecified; E83.42 Hypomagnesemia

== ENCOUNTER 2023-12-06 10:35 | Inpatient (IN) ==
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
--- OUTSIDE RECORDS SUMMARY | 2023-12-06 10:42 | External Medical Summary ---
Author Name Unknown Address Unknown Organization [id number]:[facility] [place] [address] [facility] [address] Laboratory Report Ordering Provider Test Date Status VIJAYA BARRETONIRAV 10/09/2023 13:31:47 Final Observation Date Value Abnormality Reference (Units ) Status TSH 10/09/2023 13:31:47 1.48 0.27-4.20 (uIU/mL) Final Performing Location [facility]AT[facility] - [address] [facility] [address]
--- OUTSIDE RECORDS SUMMARY | 2023-12-06 10:42 | External Medical Summary | Summary of Care ---
Author Name Unknown Organization [facility] Address [address] [place] [address] Phone [phone] Care Team Providers Care Singer Back Tender Name Role Phone Ronald Cortes MD Primary Care Provider [phone] Reason for Visit * Reason Comments Outpatient Testing Encounter Details Date Type Department Care Team (Late st Contact Info) Description 10/09/2023 1:50 PM EDT Laboratory Laboratory, [place] [address] [place] [address] [facility] [address] [place] [address] Acquired hypothyroidism Allergies Active Allergy Reactions Criticality Noted Date Comments Bee Venom Anaphylaxis High 02/27/2006 Doxycycline Low 08/04/2023 Intolerant, GI upset documented as of this encounter (statuses as of 10/09/2023) Medications Medication Sig Dispensed Refills Start Date End Date Status CALCIUM + D 600-200 MG-UNIT PO TABS 1 BID 0 03/13/2006 Active MULTIVITAMINS PO TABS daily 0 03/13/2006 Active ACETAMINOPHEN 325 MG PO TABSIndications:INTE RFACED RESULT,Pneumothorax 2 Tab Oral Every 6 hours as needed for fever, pain, headache 1 Tab 0 07/27/2013 Active [place]-3 Fatty Acids (FISH OIL) 1000 MG Capsule 1 Capsule in the morning. Active TO GO ondansetron ODT (ZOFRAN ODT) 4 MG Orally Disintegrated TabletIndications:No nspecific colitis 1 tab every 8 hrs as needed for nausea 30 Each 3 07/12/2019 Active Additional Information Patient not taking.Reported on 07/01/2023 Albuterol Sulfate HFA 108 (90 Base) MCG/ACT Inhalation Aerosol SolutionIndications: Chronic nonspecific lung disease INHALE 2 PUFFS FOUR TIMES DAILY NEEDED FOR WHEEZING 54 g 3 03/14/2021 Active Magnesium Oxide 400 MG Oral TabletIndications:Hy pomagnesemia [...] Release 24 Hour (Ditropan XL) 06/02/2023 Active Potassium Chloride ER 10 MEQ Oral Tablet Extended Release 06/03/2023 Active Triamcinolone Acetonide 0.1 % External Ointment [...] TIMES DAILY 270 Capsule 2 08/05/2023 Active Potassium Chloride Unique ER 10 MEQ Oral [...] bedtime. 60 Tablet 2 08/17/2023 Active Tiotropium [place] Monohydrate 18 MCG Inhalation Capsule (Spiriva HandiHaler) INHALE THE CONTENTS OF 1 CAPSULE EVERY DAY VIA HANDIHALER (DO NOT SWALLOW) 90 Capsule 3 09/03/2023 Active Fluticasone-Salmeter ol 115-21 MCG/ACT Inhalation Aerosol (Advair Hfa) Inhale 2 Puffs by mouth in the morning and 2 Puffs before bedtime. 12 g 12 09/03/2023 Active Additional Information Patient not taking.Reported on 10/09/2023 Citalopram Hydrobromide 40 MG Oral Tablet (CeleXA) TAKE 1 TABLET BY MOUTH EVERY DAY IN THE MORNING 90 Tablet 3 09/08/2023 Active Ondansetron HCl 4 MG Oral Tablet (Zofran)Indications: Nausea without vomiting TAKE 1 TABLET EVERY 8 HOURS NEEDED FOR NAUSEA 20 Tablet 3 10/09/2023 Active Hospital, Clinic, or Other Facility Administered [...] as of this encounter (statuses as of 10/09/2023) Active Problems Problem Noted Date Diagnosed Date COPD, group B, by GOLD 2017 classification 09/20 Overview: Per COPD GOLD Classification Acquired hypothyroidism 07/19/2023 History of coronary angioplasty with insertion o f stent 07/01/2023 Coronary artery disease invo lving [place] coronary artery of [place] heart without angina pectoris 07/01/2023 Hematuria of [...] as of this encounter (statuses as of 10/09/2023) Resolved Problems Problem Noted Date Diagnosed Date [...] as of this encounter (statuses as of 10/09/2023) Immunizations Name Administration Dates Next Due Pneumococcal [...] Date Smoking Tobacco: Every Day Cigarettes 0.6 70.1 Started: 09/02/1973 Smokeless Tobacco: Never Comments:04/14 ppd. Smoker 08/12 07/04 Alcohol Use Standard Drinks/Week Comments No 0 (1 standard drink = 0.6 oz pur e alcohol) PHQ-2 Answer Date Recorded PHQ-2 Score 0 01/24/2020 Hunger Vital Sign Answer Date Recorded Worried [...] No 08/08/2013 documented as of this encounter Plan of Treatment Upcoming Encounters Date Type Department Care Team (Late st Contact Info) Description 11/03/2023 12:40 PM EDT Office Visit Pulmonary Medicine, [facility] [address] [place] [address] Marbin Serrano MD [address] [facility] [place] [address] 11/13/2023 1:00 PM EDT Office Visit Cardiology, [facility] [address] [place] [address] Pepe Lennon DO [address] [facility] [place] [address] 02/10/2024 4:20 PM EDT Office Visit [address] [address] Ronald Cortes MD [address] [place] [address] Pending Results Name Type Priority Associated Diagnoses Date /Time TSH WITH FREE T4 IF INDICATED Lab Routine Acquired hypothyroidism 10/09/2023 1:31 PM EDT Scheduled Procedures Name Priority Associated Diagnoses Date/Ti me COLONOSCOPY FLEXIBLE PROXIMA L DIAGNOSTIC Recall Encounter for screening colonoscopy Health Maintenance Due Date Last Done Comments DISCUSS TOBACCO CESSATION (REFER TO SMARTSET #0293) 1949 Alpha-1 Antitrypsin 1967 Cologuard 1994 Sigmoidoscopy 1994 Zoster Vaccines (2 of 3) 03/19/2012 01/23/2012 DXA Scan 12/27/2016 12/27/2014, 03/13, 03/29/2007, Additional history exists Fecal Occult Blood Test 04/23/2018 04/23/19 18, 12/21/2000, 10/31/1999 COVID-19 Vaccine ( season) 2022 03/08/2021, 02/07/2021 Influenza Vaccine (FLU shot) (Season Ended) 2023 03/14/2021, 01/24/2020, 12/27/2018, Additional history exists GFR 06/30/2024 07/01/2023, 03/13, 03/09/2023, Additional history exists TSH 06/30/2024 07/01/2023, 07/13, 05/26/2001 Depression Screening 10/08/2024 10/09/2023 Mammogram 10/08/2024 07/22/2012, 07/12, 07/18/2010, Additional history exists Postponed from 07/22/2013 (Patient Declined After Education) O2 ASSESSMENT COMPLETED IN PAST YEAR FOR COPD 10/08/2024 10/09/2023 Albumin/Creatinine Ratio 08/15/2025 08/15/2022 Colonoscopy 06/02/2027 06/02/2017, 04/12/2007 Colorectal Cancer Screening 06/02/2027 DTaP,Tdap,and Td Vaccines (3 - Td or Tdap) 09/13/2031 09/12/2021, 06/10/2010, 07/16/1999 VITAMIN D LEVEL ONCE IN A LIFETIME-USE SMARTSET# [id number] Completed 03/22/2015 Pneumococcal Vaccine: 65+ Years Completed 12/31/2016, 11/17/2014, 06/10/2010 Lung Cancer Screening Completed 01/05/2017, 014 GARDASIL-HPV IMMUNIZATION SERIES Aged Out No longer eligible based on patient's age to complete this topic Hepatitis B Aged Out No longer eligi ble based on patient's age to complete this topic MENINGOCOCCAL (MENACTRA/MENVEO) Aged Out No longer eligible based on patient's age to complete this topic documented as of this encounter Medical Devices Implanted Type Area Social Service Worker Device Identifier Shelf Expiration Date Model / Serial / Lot Chip Cancellous [facility] 307018 - [id number] Implanted:Qty: 1 on 08/08/2013 at [place] Tissue - Human Left: Foot MUSCULOSKELETAL TRANSPLANT FND 07/24/2015 [id number] / [id number] / Screw Nonlock 3.5 X 24 - [id number] Implanted:Qty: 1 on 08/08/2013 at [place] Left: Foot ORTHOHELIX SURGICAL DESIGNS SLACK COOPER-011-3 5-24 / / Screw Locking 3.5 X 16 - [id number] Implanted:Qty: 2 on 08/08/2013 at [place] Left: Foot ORTHOHELIX [employer] DESIGNS SLACK COOPER-021-3 5-16 / / Plate 6 Hole Beta Mxl-0026 - [id number] Implanted:Qty: 1 on 08/08/2013 at [place] Left: Foot ORTHOHELIX [employer] DESIGNS MXL-0026 / / Screw Locking 3.5 X 20 - [id number] Implanted:Qty: 1 on 08/08/2013 at [place] Left: Foot ORTHOHELIX SURG[employer] DESIGNS SLACK COOPER-021-3 5-20 / / Screw Nonlock 3.5 X 16 - [id number] Implanted:Qty: 1 on 08/08/2013 at [place] Left: Foot ORTHOHELIX SURG[employer] DESIGNS SLACK COOPER-011-3 5-16 / / Screw Nonlock 3.5 X 18 - [id number] Implanted:Qty: 1 on 08/08/2013 at [place] Left: Foot ORTHOHELIX SURGICAL DESIGNS SLACK COOPER-011-3 5-18 / / Screw Nonlock 3.5 X 14 - [id number] Implanted:Qty: 1 on 08/08/2013 at [place] Left: Foot ORTHOHELIX SURGICAL DESIGNS SLACK COOPER-011-3 5-14 / / 4.0 X 3.0 Short Max Torque Implanted:Qty: 1 on 08/08/2013 at [place] Left: Foot ORTHOHELIX SURGICAL DESIGNS MSD-010-4 0-030S / / 4.0 X 32.5 Short Max Torque Implanted:Qty: 1 on 08/08/2013 at [place] Left: Foot MSD-010-4 0-325S / / 4.0 X 28 Short Max Torque Implanted:Qty: 1 on 08/08/2013 at [place] Left: Foot ORTHOHELIX SURGICAL DESIGNS MSD-010-4 0-028S / / 4.0 X 22 Short Max Torque Implanted:Qty: 1 on 08/08/2013 at [place] Left: Foot ORTHOHELIX SURGICAL DESIGNS MSD-010-4 0-022S / / [place] Gold 4.0 - [id number] Implanted:Qty: 1 on 08/08/2013 at [place] Left: Foot ORTHOHELIX SURGICAL DESIGNS CSS-500-4 0A / / Plate Lps Alpha 2 Slot - [id number] Implanted:Qty: 1 on 08/08/2013 at [place] Left: Foot ORTHOHELIX SURG[employer] DESIGNS MXL-002-2 A / / Screw Variable 3.5 X 12mm - [id number] Implanted:Qty: 1 on 08/08/2013 at [place] Left: Foot ORTHOHELIX SURGICAL DESIGNS RAKESH-031-3 5-12 / / Screw Variable 3.5 X 18mm - [id number] Implanted:Qty: 1 on 08/08/2013 at [place] Left: Foot ORTHOHELIX SURGICAL DESIGNS RAKESH-031-3 5-18 / / documented as of this encounter Visit Diagnoses Diagnosis Acquired hypothyroidism Unspecified hypothyroidism documented in this encounter Advance Directives * Full Code [...] Power of Attor elizabeth? No Care Teams Singer Back Tender Relationship Specialty Start Date End Date Ronald Cortes MD [address] [place] [address] PCP - General 06/10/02 documented as of this encounter
--- OUTSIDE RECORDS SUMMARY | 2023-12-06 10:42 | External Medical Summary | Summary of Care ---
Author Name Unknown Organization [facility] Address [address] [place] [address] Phone [phone] Care Team Providers Care Planting Supervisor Name Role Phone Ronald Cortes MD Primary Care Provider [phone] Encounter Details Date Type Department Care Team (Late st Contact Info) Description 07/19/2023 Telephone [facility] [address] [place] [address] Ronald Cortes MD [address] [place] [address] Allergies Active Allergy Reactions Criticality Noted Date Comments Bee Venom Anaphylaxis High 02/27/2006 Doxycycline Low 08/04/2023 Intolerant, GI upset documented as of this encounter (statuses as of 09/29/2023) Medications Medication Sig Dispensed Refills Start Date End Date Status CALCIUM + D 600-200 MG-UNIT PO TABS 1 BID 0 6 Active MULTIVITAMINS PO TABS daily 0 6 Active ACETAMINOPHEN 325 MG PO TABSIndications:INT ERFACED RESULT,Pneumothorax 2 Tab Oral Every 6 hours as needed for fever, pain, headache 1 Tab 0 4 Active [place]-3 Fatty Acids (FISH OIL) 1000 MG Capsule 1 Capsule in the morning. Active TO GO ondansetron ODT (ZOFRAN ODT) 4 MG Orally Disintegrated TabletIndications:N onspecific colitis 1 tab every 8 hrs as needed for nausea 30 Each 3 0 Active Additional Information Patient not taking.Reported on 07/01/2023 Albuterol Sulfate HFA 108 (90 Base) MCG/ACT Inhalation Aerosol SolutionIndications :Chronic nonspecific lung disease INHALE 2 PUFFS FOUR TIMES DAILY NEEDED FOR WHEEZING 54 g 3 1 Active Magnesium Oxide 400 MG Oral TabletIndications:H ypomagnesemia Take 1 Tablet by mouth in the morning. 90 Tablet 3 3 Active Additional Information Patient not taking.Reported on 07/01/2023 Estradiol 0.1 MG/GM Vaginal Cream (Estrace) Apply pea sized amount (0.5 gm) vaginally twice a week at bedtime 42.5 g 3 3 Active Additional Information Patient not taking.Reported on 07/01/2023 Econazole Nitrate 1 % External Cream (Spectazole)Indicat ions:Candidal intertrigo Apply topically to affected area daily. Apply to affected area (under breast) twice daily 85 g 1 4 Active Additional Information Patient not taking.Reported on 07/01/2023 Albuterol Sulfate HFA 108 (90 Base) MCG/ACT Inhalation Aerosol Solution Inhale 2 Puffs by mouth every 4 hours as needed for Wheezing or Cough. 18 g 5 4 Active Furosemide 40 MG Oral Tablet (Lasix) 4 Active oxyBUTYnin Chloride ER 5 MG Oral Tablet Extended Release 24 Hour (Ditropan XL) 4 Active Potassium Chloride ER 10 MEQ Oral Tablet Extended Release 4 Active Triamcinolone Acetonide 0.1 % External Ointment (Aristocort)Indicat ions:Candidal intertrigo Apply topically to affected area 2 times a day. To affected area. 80 g 5 4 Active Clotrimazole 1 % External Cream (Lotrimin)Indicatio ns:Candidal intertrigo Apply topically to affected area 2 times a day. Apply to area under breast twice daily until resolved 85 g 3 4 Active Spiriva HandiHaler 18 MCG Inhalation Capsule (tiotropium bromide) INHALE THE CONTENTS OF 1 CAPSULE EVERY DAY VIA HANDIHALER (DO NOT SWALLOW) 90 Capsule 3 1 09/03/19 24 Discontinu ed(Refill) Alendronate Sodium 70 MG Oral Tablet (Fosamax)Indication s:Other osteoporosis without current pathological fracture,Dyslipidem ia, goal LDL below 100 TAKE 1 TABLET EVERY WEEK DIRECTED , SEE PACKAGE FOR ADDITIONAL INSTRUCTIONS 12 Tablet 07/27/19 Discontinu ed(Refill) Atorvastatin Calcium 40 MG Oral Tablet (Lipitor) Take 1 Tablet by mouth in the morning. 90 Tablet 07/27/19 Discontinu ed(Refill) Carvedilol 12.5 MG Oral Tablet (Coreg)Indications: Dyslipidemia, goal LDL below 100,HTN, goal below 150/90 TAKE 1 AND 1/2 TABLETS TWICE DAILY 270 Tablet 07/27/19 Discontinu ed(Refill) Citalopram Hydrobromide 40 MG Oral Tablet (CeleXA) Take 1 Tablet by mouth in the morning. 90 Tablet 07/27/19 Discontinu ed(Refill) Losartan Potassium 100 MG Oral Tablet (Cozaar)Indications :HTN, goal below 150/90 Take 1 Tablet by mouth in the morning. 90 Tablet 08/05/19 Discontinu ed(Refill) Omeprazole 20 MG Oral Capsule Delayed Release (PriLOSEC)Indicatio ns:Gastroesophageal reflux disease, unspecified whether esophagitis present Take 1 Capsule by mouth in the morning. 1 hour before the first meal of the day.. 90 Capsule 07/27/19 Discontinu ed(Refill) Ondansetron HCl 4 MG Oral Tablet (Zofran) TAKE 1 TABLET EVERY 8 HOURS NEEDED FOR NAUSEA 20 Tablet 08/05/19 Discontinu ed(Refill) Potassium Chloride Unique ER 10 MEQ Oral Tablet Extended Release Take 1 Tablet by mouth in the morning and 1 Tablet before bedtime. 180 Tablet 07/27/19 Discontinu ed(Refill) Gabapentin 300 MG Oral Capsule (Neurontin)Indicati ons:Post-traumatic arthrosis of multiple joints TAKE 1 CAPSULE THREE TIMES DAILY 270 Capsule 07/27/19 Discontinu ed(Refill) traMADol HCl 50 MG Oral Tablet (Ultram)Indications :Generalized osteoarthritis of multiple sites Take 1 Tablet by mouth every 6 hours as needed for Pain, Moderate. TAKE 1 TABLET DAILY NEEDED FOR MODERATE PAIN 45 Tablet 3 08/05/19 24 Discontinu ed(Refill) traZODone HCl 50 MG Oral Tablet (Desyrel)Indication s:Sleep disorder TAKE 1 TO 2 TABLETS BEFORE BEDTIME. 180 Tablet 2 3 07/27/19 24 Discontinu ed(Refill) Levothyroxine Sodium 25 MCG Oral Tablet (Levoxyl)Indication s:Acquired hypothyroidism Take 1 Tablet by mouth in the morning. (at least 30 min prior to breakfast or other meds). 90 Tablet 3 4 07/27/19 24 Discontinu ed(Refill) Hospital, Clinic, or Other Facility Administered Medication Ordered Dose Route Frequency Start Date End Date Status albuterol sulfate (PROVENTIL) (2.5 MG/3ML) 0.083% inhalation solution 2.5 mgIndications:Chronic nonspecific lung disease 2.5 mg NEBULIZER Q4H PRN 12/23/2017 Active documented as of this encounter (statuses as of 09/29/2023) Active Problems Problem Noted Date Diagnosed Date COPD, group B, by GOLD 2017 classification 09/20 Overview: Per COPD GOLD Classification Acquired hypothyroidism 07/19/2023 History of coronary angioplasty with insertion o f stent 07/01/2023 Coronary artery disease invo lving [place] coronary artery of [place] heart without angina pectoris 07/01/2023 Hematuria of [...] as of this encounter (statuses as of 09/29/2023) Resolved Problems Problem Noted Date Diagnosed Date [...] HTN, goal below 140/90 06/02/200111/15 Mixed dyslipidemia 03/26/200 9 Overview: Per Lipid Taxonomy. Tobacco use disorder 000 documented as of this encounter (statuses as of 09/29/2023) Immunizations Name Administration Dates Next Due Pneumococcal [...] Types Packs/Day Years Used Date Smoking Tobacco: Former Cigarettes 1 20 Smokeless Tobacco: Never Alcohol Use Standard Drinks/Week Comments No 0 (1 standard drink = 0.6 oz pur e alcohol) PHQ-2 Answer Date Recorded PHQ-2 Score 0 01/24/2020 Hunger Vital Sign Answer Date Recorded Worried About Running Out of Food in the Last Ye ar Never true 03/30/2019 Ran Out of Food in the Last Year Never true 03/30/2019 Sex and Gender Information Value Date Recorded [...] encounter Miscellaneous Notes * Telephone Encounter - Cat Angel LPN - 08/07/2023 11:47 AM EDT Left generic message on answering machine asking patient to return our call. Letter sent. * Telephone Encounter - Yeimi Carlin LPN - 07/20/2023 12:26 PM EDT Called patient. Left message on answering machine to call office. * Telephone Encounter - Ronald Cortes MD - 07/19/2023 10:14 AM EDT Notify: thyroid test was abnormal. Recommend starting Levotthyroxine 25mcg daily taken 30 minutes before food or other meds. Need repeat TSH 6-8 weeks documented in this encounter Plan of Treatment Upcoming Encounters Date Type Department Care Team (Late st Contact Info) Description 10/06/2023 2:30 PM EDT PulmDiagnostic Pulmonary Function Lab, [facility] [address] [facility] [place] [address] [place] [facility] [place] [address] 10/09/2023 12:00 PM EDT Office Visit [facility] [address] [facility] [place] [address] Ronald Cortes MD [address] [place] [address] 11/03/2023 12:40 PM EDT Office Visit Pulmonary Medicine, [facility] [address] [facility] [place] [address] Marbin Serrano MD [address] [place] [address] 11/13/2023 1:00 PM EDT Office Visit Cardiology, [facility] [address] [place] [address] Pepe Lennon, [address] [place] [address] Scheduled Orders Name Type Priority Associated Diagnoses Orde r Schedule TSH WITH FREE T4 IF INDICATED Lab Routine Acquired hypothyroidism Expected: 07/19/2023 (Approximate), Expires: 07/18/2024 Scheduled Procedures Name Priority Associated Diagnoses Date/Ti me COLONOSCOPY FLEXIBLE PROXIMA L DIAGNOSTIC Recall Encounter for screening colonoscopy Health Maintenance Due Date Last Done Comments DISCUSS TOBACCO CESSATION (REFER TO SMARTSET #3291) 1949 Alpha-1 Antitrypsin 1967 Cologuard 1994 Sigmoidoscopy 1994 Zoster Vaccines (2 of 3) 03/19/2012 01/23/2012 Mammogram 07/22/2013 07/22/2012, 07/12, 07/18/2010, Additional history exists DXA Scan 12/27/2016 12/27/2014, 03/13, 03/29/2007, Additional history exists Fecal Occult Blood Test 04/23/2018 04/23/19 18, 12/21/2000, 10/31/1999 Depression Screening 01/23/2021 01/24/2020 COVID-19 Vaccine ( season) 2022 03/08/2021, 02/07/2021 Influenza Vaccine (FLU shot) (Season Ended) 2023 03/14/2021, 01/24/2020, 12/27/2018, Additional history exists GFR 06/30/2024 07/01/2023, 03/13, 03/09/2023, Additional history exists TSH 06/30/2024 07/01/2023, 07/13, 05/26/2001 O2 ASSESSMENT COMPLETED IN PAST YEAR FOR COPD 09/02/2024 09/03/2023 Albumin/Creatinine Ratio 08/15/2025 08/15/2022 Colonoscopy 06/02/2027 06/02/2017, 04/12/2007 Colorectal Cancer Screening 06/02/2027 DTaP,Tdap,and Td Vaccines (3 - Td or Tdap) 09/13/2031 09/12/2021, 06/10/2010, 07/16/1999 VITAMIN D LEVEL ONCE IN A LIFETIME-USE SMARTSET# [id number] Completed 03/22/2015 Pneumococcal Vaccine: 65+ Years Completed [...] this encounter Medical Devices Implanted Type Area Medical Data Entry Clerk Device Identifier Shelf Expiration Date Model / Serial / Lot Chip Cancellous [facility] [id number] - [id number] Implanted:Qty: 1 on 08/08/2013 at [place] [facility] [place] - Human Left: Foot MUSCULOSKELETAL TRANSPLANT FND 07/24/2015 [id number] / [id number] / Screw Nonlock 3.5 X 24 - [id number] Implanted:Qty: 1 on 08/08/2013 at [place] [facility] [place] Left: Foot ORTHOHELIX SURG[employer] DESIGNS [place]ENEER TAPING MACHINE OFFBEARER-011-3 5-24 / / Screw Locking 3.5 X 16 - [id number] Implanted:Qty: 2 on 08/08/2013 at [place] [facility] [place] Left: Foot ORTHOHELIX SURGICAL DESIGNS [place] TAPING MACHINE OFFBEARER-021-3 5-16 / / Plate 6 Hole Beta Mxl-0026 - [id number] Implanted:Qty: 1 on 08/08/2013 at [place] [facility] [place] Left: Foot ORTHOHELIX SURG[employer] DESIGNS MXL-0026 / / Screw Locking 3.5 X 20 - [id number] Implanted:Qty: 1 on 08/08/2013 at [place] [facility] Left: Foot ORTHOHELIX SURGICAL DESIGNS VENEER TAPING MACHINE OFFBEARER-021-3 5-20 / / Screw Nonlock 3.5 X 16 - [id number] Implanted:Qty: 1 on 08/08/2013 at [place] [facility] [place] Left: Foot ORTHOHELIX SURGICAL DESIGNS VENEER TAPING MACHINE OFFBEARER-011-3 5-16 / / Screw Nonlock 3.5 X 18 - [id number] Implanted:Qty: 1 on 08/08/2013 at [place] [facility] [place] Left: Foot ORTHOHELIX SURGICAL DESIGNS VENEER TAPING MACHINE OFFBEARER-011-3 5-18 / / Screw Nonlock 3.5 X 14 - [id number] Implanted:Qty: 1 on 08/08/2013 at [place] [facility] [place] Left: Foot ORTHOHELIX SURGICAL DESIGNS VENEER TAPING MACHINE OFFBEARER-011-3 5-14 / / 4.0 X 3.0 Short Max Torque Implanted:Qty: 1 on 08/08/2013 at [place] [facility] [place] Left: Foot ORTHOHELIX SURGICAL DESIGNS MSD-010-4 0-030S / / 4.0 X 32.5 Short Max Torque Implanted:Qty: 1 on 08/08/2013 at [place] [facility] Left: Foot MSD-010-4 0-325S / / 4.0 X 28 Short Max Torque Implanted:Qty: 1 on 08/08/2013 at [place] [facility] Left: Foot ORTHOHELIX SURGICAL DESIGNS MSD-010-4 0-028S / / 4.0 X 22 Short Max Torque Implanted:Qty: 1 on 08/08/2013 at [place] [facility] Left: Foot ORTHOHELIX SURGICAL DESIGNS MSD-010-4 0-022S / / [place] Gold 4.0 - [id number] Implanted:Qty: 1 on 08/08/2013 at [place] [facility] Left: Foot ORTHOHELIX SURGICAL DESIGNS CSS-500-4 0A / / Plate Lps Alpha 2 Slot - [id number] Implanted:Qty: 1 on 08/08/2013 at [place] [facility] Left: Foot ORTHOHELIX SURGICAL DESIGNS MXL-002-2 A / / Screw Variable 3.5 X 12mm - [id number] Implanted:Qty: 1 on 08/08/2013 at [place] [facility] Left: Foot ORTHOHELIX SURGICAL DESIGNS RAKESH-031-3 5-12 / / Screw Variable 3.5 X 18mm - [id number] Implanted:Qty: 1 on 08/08/2013 at [facility] Left: Foot ORTHOHELIX SURGICAL DESIGNS RAKESH-031-3 08-28 documented as of this encounter Visit Diagnoses Diagnosis Acquired hypothyroidism- Primary Unspecified hypothyroidism documented in this encounter Advance [...] Power of Attor elizabeth? No Care Teams Planting Supervisor Relationship Specialty Start Date End Date Ronald Cortes MD [address] [place] [address] PCP - General 06/10/02 documented as of this encounter
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
--- OUTSIDE RECORDS SUMMARY | 2023-12-06 10:42 | External Medical Summary | Summary of Care ---
Author Name Unknown Organization [facility] Address [address] [place] [address] Phone [phone] Care Team Providers Care Cnc Router Operator Name Role Phone Ronald Cortes MD Primary Care Provider [phone] Reason for Visit * Reason Onset Date Comments Advice 10/09/2023 Encounter Details Date Type Department Care Team (Late st Contact Info) Description 10/09/2023 Telephone [facility] [address] [place] [address] Ronald Cortes MD [address] [place] [address] Advice Allergies Active Allergy Reactions Criticality Noted Date [...] pain, headache 1 Tab 0 07/27/2013 Active [place]-3 Fatty Acids (FISH OIL) 1000 MG Capsule [...] bedtime. 60 Tablet 2 08/17/2023 Active Tiotropium [place] Monohydrate 18 MCG Inhalation Capsule (Spiriva HandiHaler) [...] stent 07/01/2023 Coronary artery disease invo lving [place] coronary artery of [place] heart without angina pectoris 07/01/2023 Hematuria of [...] encounter Miscellaneous Notes * Telephone Encounter - Nina Singh OSA - 10/09/2023 2:56 PM EDT Faxed. 10/09/2023 * Telephone Encounter - Alondra Lizama OSA - 10/09/2023 2:44 PM EDT Please fax office notes and patient's insurance information to Dr. Bo Crespo's office. Their fax number is [phone] documented in this encounter Plan of Treatment Upcoming Encounters Date Type Department Care Team (Late st Contact Info) Description 11/03/2023 12:40 PM EDT Office Visit Pulmonary Medicine, [address] [place] [address] Marbin Serrano MD [address] [place] [address] 11/13/2023 1:00 PM EDT Office Visit Cardiology, [facility] [address] [place] [address] Pepe Lennon, [address] [place] [address] 02/10/2024 4:20 PM EDT Office Visit Family [facility] [address] [place] [address] Ronald Cortes MD [address] [place] [address] Scheduled Procedures Name Priority Associated Diagnoses Date/Ti [...] 03/09/2023, Additional history exists TSH 06/30/2024 07/01/2023, /11/2013, 05/26/2001 Depression Screening 10/08/2024 10/09/2023 Mammogram 10/08/2024 07/22/2012, 07/12, 07/18/2010, Additional history exists Postponed from 07/22/2013 (Patient Declined After Education) O2 ASSESSMENT COMPLETED IN PAST YEAR FOR COPD 10/08/2024 10/09/2023 Albumin/Creatinine Ratio 08/15/2025 08/15/2022 Colonoscopy 06/02/2027 06/02/2017, 04/12/2007 Colorectal Cancer Screening 06/02/2027 DTaP,Tdap,and Td Vaccines (3 - Td or Tdap) 09/13/2031 09/12/2021, 06/10/2010, 07/16/1999 VITAMIN D LEVEL ONCE IN A LIFETIME-USE SMARTSET# [id number] Completed 03/22/2015 Pneumococcal Vaccine: 65+ Years Completed [...] this encounter Medical Devices Implanted Type Area Cook House Laborer Device Identifier Shelf Expiration Date Model / Serial / Lot Chip Cancellous c 606056 - [id number] [place]ed:[place] [facility] [place] Left: Foot MUSCULOSKELETAL TRANSPLANT FND 07/24/2015 [id number] / [id number] / Screw Nonlock 3.5 X 24 - [id number] Implanted:Qty: 1 [place]08[place] [facility] [place] Foot ORTHOHELIX SURGICAL DESIGNS SHOP MECHANIC HELPER-011-3 5-24 / / Screw Locking 3.5 X 16 - [id number] Implanted:Qty: 2 [place] 08[place]08[place] [facility] [place] Foot ORTHOHELIX SURGICAL DESIGNS SHOP MECHANIC HELPER-021-3 5-16 / / Plate 6 Hole Beta Mxl-0026 - [id number] Implanted:Qty: 1 [place] 08/08[place] [facility] [place] Foot ORTHOHELIX SURGICAL DESIGNS MXL-0026 / / Screw Locking 3.5 X 20 - [id number] Implanted:Qty: 1 on 08/08[place]2013 [place] [facility] [place] Foot ORTHOHELIX SURGICAL DESIGNS SHOP MECHANIC HELPER-021-3 5-20 / / Screw Nonlock 3.5 X 16 - [id number] Implanted:Qty: 1 [place] 08[place]08[place] [facility] [place] Foot ORTHOHELIX SURGICAL DESIGNS SHOP MECHANIC HELPER-011-3 5-16 / / Screw Nonlock 3.5 X 18 - [id number] Implanted:Qty: 1 [place] 08[place]08[place] [facility] [place] Foot ORTHOHELIX SURGICAL DESIGNS SHOP MECHANIC HELPER-011-3 5-18 / / Screw Nonlock 3.5 X 14 - [id number] Implanted:Qty: 1 [place] 08[place]08[place] [facility] [place] Foot ORTHOHELIX SURGICAL DESIGNS SHOP MECHANIC HELPER-011-3 5-14 / / 4.0 X 3.0 Short Max Torque Implanted:Qty: 1 [place] 08/08/[place] [facility] [place] Foot ORTHOHELIX SURGICAL DESIGNS MSD-010-4 0-030S / / 4.0 X 32.5 Short Max Torque Implanted:Qty: 1 on 08/08/2013 [place] [facility] [place] Foot MSD-010-4 0-325S / / 4.0 X 28 Short Max Torque Implanted:Qty: 1 [place] 08/08/2013 [place] [facility] [place] Foot ORTHOHELIX SURGICAL DESIGNS MSD-010-4 0-028S / / 4.0 X 22 Short Max Torque Implanted:Qty: 1 on 08/08/2013 [place] [facility] [place] Foot ORTHOHELIX SURGICAL DESIGNS MSD-010-4 0-022S / / [place] Gold 4.0 - [id number] Implanted:Qty: 1 on 08/08/2013 [place] [facility] [place] Foot ORTHOHELIX SURGICAL DESIGNS CSS-500-4 0A / / Plate Lps Alpha 2 Slot - [id number] Implanted:Qty: 1 on 08/08/2013 [place] [facility] [place] Foot ORTHOHELIX SURGICAL DESIGNS MXL-002-2 A / / Screw Variable 3.5 X 12mm - [id number] Implanted:Qty: 1 [place] 08/08/[place] [facility] [place] Foot ORTHOHELIX SURGICAL DESIGNS RAKESH-031-3 5-12 / / Screw Variable 3.5 X 18mm - [id number] Implanted:Qty: 1 [place] 08[place]08[place] [facility] [place] Foot ORTHOHELIX SURGICAL DESIGNS RAKESH-031-3 08-28 documented as of this encounter Advance Directives [...] Power of Attor elizabeth? No Care Teams Cnc Router Operator Relationship Specialty Start Date End Date Ronald Cortes MD [address] [place] [address] PCP - General 06/10/02 documented as of this encounter
--- OUTSIDE RECORDS SUMMARY | 2023-12-06 10:42 | External Medical Summary | Summary of Care ---
Author Name Unknown Organization [facility] Address [address] [place] [address] Phone [phone] Care Team Providers Care Business Rules Developer Name Role Phone Ronald Cortes MD Primary Care Provider Reason for Visit * Reason Onset Date Comments Order Request 11/19/2023 Nebulizer Encounter Details Date Type Department Care Team (Late st Contact Info) Description 11/19/2023 Telephone Pulmonary Medicine, [facility] [address] [facility] [place] [address] Marbin [facility]errano MD [address] [facility] [phone] Order Request (Nebulizer) Allergies Active Allergy Reactions Criticality Noted Date Comments Bee Venom Anaphylaxis High 02/27/2006 Doxycycline Low 08/04/2023 Intolerant, GI upset documented as of this encounter (statuses as of 11/19/2023) Medications Medication Sig Dispensed Refills Start Date End Date Status CALCIUM + D 600-200 MG-UNIT PO TABS 1 BID 0 03/13/2006 Active MULTIVITAMINS PO TABS daily 0 03/13/2006 Active ACETAMINOPHEN 325 MG PO TABSIndications:INTE RFACED RESULT,Pneumothorax 2 Tab Oral Every 6 hours as needed for fever, pain, headache 1 Tab 0 07/27/2013 Active [place]-3 Fatty Acids (FISH OIL) 1000 MG Capsule [...] bedtime. 60 Tablet 2 08/17/2023 Active Tiotropium [place] Monohydrate 18 MCG Inhalation Capsule (Spiriva HandiHaler) [...] the morning. 90 Tablet 3 11/13/2023 Active Full Kit Nebulizer Set Use with Nebulizer Medication EVERY SIX HOURS WHILE AWAKE as directed. Dx Code: J44.9 1 Each 3 11/18/2023 Active Albuterol Sulfate 0.63 MG/3ML Inhalation Nebulization Solution (Accuneb) Inhale 1 Vial via nebulizer every 6 hours as needed for Wheezing or Shortness of Breath. Dx Code J 44.9 360 mL 11/18/2023 Active Hospital, Clinic, or Other Facility Administered [...] as of this encounter (statuses as of 11/19/2023) Active Problems Problem Noted Date Diagnosed Date COPD, group B, by GOLD 2017 classification 09/20 Overview: Per COPD GOLD Classification Acquired hypothyroidism 07/19/2023 History of coronary angioplasty with insertion o f stent 07/01/2023 Coronary artery disease invo lving [place] coronary artery of [place] heart without angina pectoris 07/01/2023 Hematuria of [...] as of this encounter (statuses as of 11/19/2023) Resolved Problems Problem Noted Date Diagnosed Date [...] as of this encounter (statuses as of 11/19/2023) Immunizations Name Administration Dates Next Due Pneumococcal [...] Smokeless Tobacco: Never Comments:04/14 ppd. Smoker 08/12 07/04. 5 cpd smoker. 11/18/23 Alcohol Use Standard [...] encounter Miscellaneous Notes * Telephone Encounter - Lorna Silva LPN - 11/19/2023 8:32 AM EDT Neb kit order submitted to . documented in this encounter Plan of Treatment Upcoming Encounters Date Type Department Care Team (Late st Contact Info) Description 01/13/2024 3:00 PM EDT Cardiac Studies Cardiac Studies, [facility] [address] [facility] [place] [address] 02/10/2024 4:20 PM EDT Office Visit Family [facility] [place] [address] [place] [phone] Ronald Cortes MD [address] [place] [address] 05/23/2024 2:00 PM EST Office Visit Pulmonary Medicine, [facility] [address] [facility] [place] [address] Marbin Serrano MD [address] [place] [address] 06/07/2024 8:30 AM EST Office Visit Cardiology, [facility] [address] [facility] [place] [address] Pepe Lennon DO [address] [facility] [place] [address] Scheduled Procedures Name Priority Associated Diagnoses Date/Ti me COLONOSCOPY FLEXIBLE PROXIMA L DIAGNOSTIC Recall Encounter for screening colonoscopy Health Maintenance Due Date Last Done Comments DISCUSS TOBACCO CESSATION (REFER TO SMARTSET #0032) 1950 Alpha-1 Antitrypsin 1967 Cologuard 1994 Sigmoidoscopy [...] D LEVEL ONCE IN A LIFETIME-USE SMARTSET# 23974 Completed 03/22/2015 Pneumococcal Vaccine: 65+ Years Completed [...] this encounter Medical Devices Implanted Type Area Athletic Equipment Custodian Device Identifier Shelf Expiration Date Model / Serial / Lot Chip Cancellous 5cc 660563 - [id number] Implanted:Qty: 1 on 08/08/2013 at [place] [facility] [place] - Human Left: Foot MUSCULOSKELETAL TRANSPLANT FND 07/24/2015 [id number] / [id number] / Screw Nonlock 3.5 X 24 - [id number] Implanted:Qty: 1 on 08/08/2013 at [place] [facility] [place] Left: Foot ORTHOHELIX SURGICAL DESIGNS CONFERENCE SERVICES DIRECTOR-011-3 5-24 / / Screw Locking 3.5 X 16 - [id number] Implanted:Qty: 2 on 08/08/2013 at [place] [facility] [place] Left: Foot ORTHOHELIX SURGICAL DESIGNS CONFERENCE SERVICES DIRECTOR-021-3 5-16 / / Plate 6 Hole Beta Mxl-0026 - [id number] Implanted:Qty: 1 on 08/08/2013 at [place] [facility] [place] Left: Foot ORTHOHELIX SURGICAL DESIGNS MXL-0026 / / Screw Locking 3.5 X 20 - [id number] Implanted:Qty: 1 on 08/08/2013 at [place] [facility] [place] Left: Foot ORTHOHELIX SURGICAL DESIGNS CONFERENCE SERVICES DIRECTOR-021-3 5-20 / / Screw Nonlock 3.5 X 16 - [id number] Implanted:Qty: 1 on 08/08/2013 at [place] [facility] [place] Left: Foot ORTHOHELIX SURGICAL DESIGNS CONFERENCE SERVICES DIRECTOR-011-3 5-16 / / Screw Nonlock 3.5 X 18 - [id number] Implanted:Qty: 1 on 08/08/2013 at [place] [facility] [place] Left: Foot ORTHOHELIX SURGICAL DESIGNS CONFERENCE SERVICES DIRECTOR-011-3 5-18 / / Screw Nonlock 3.5 X 14 - [id number] Implanted:Qty: 1 on 08/08/2013 at [place] [facility] [place] Left: Foot ORTHOHELIX SURGICAL DESIGNS CONFERENCE SERVICES DIRECTOR-011-3 5-14 / / 4.0 X 3.0 Short Max Torque Implanted:Qty: 1 on 08/08/2013 at [place] [facility] [place] Left: Foot ORTHOHELIX SURGICAL DESIGNS MSD-010-4 0-030S / / 4.0 X 32.5 Short Max Torque Implanted:Qty: 1 on 08/08/2013 at [place] [facility] [place] Left: Foot MSD-010-4 0-325S / / 4.0 X 28 Short Max Torque Implanted:Qty: 1 on 08/08/2013 at [place] [facility] [place] Left: Foot ORTHOHELIX SURGICAL DESIGNS MSD-010-4 0-028S / / 4.0 X 22 Short Max Torque Implanted:Qty: 1 on 08/08/2013 at [place] [facility] [place] Left: Foot ORTHOHELIX SURGICAL DESIGNS MSD-010-4 0-022S / / [place] Gold 4.0 - [id number] Implanted:Qty: 1 on 08/08/2013 at [place] [facility] [place] Left: Foot ORTHOHELIX SURGICAL DESIGNS CSS-500-4 0A / / Plate Lps Alpha 2 Slot - [id number] Implanted:Qty: 1 on 08/08/2013 at [place] [facility] [place] Left: Foot ORTHOHELIX SURGICAL DESIGNS MXL-002-2 A / / Screw Variable 3.5 X 12mm - [id number] Implanted:Qty: 1 on 08/08/2013 at [place] [facility] [place] Left: Foot ORTHOHELIX SURGICAL DESIGNS RAKESH-031-3 5-12 / / Screw Variable 3.5 X 18mm - [id number] Implanted:Qty: 1 on 08/08/2013 at [place] [facility] [place] Left: Foot ORTHOHELIX SURGICAL DESIGNS RAKESH-031-3 5-18 [...] Power of Attor elizabeth? No Care Teams Business Rules Developer Relationship Specialty Start Date End Date Ronald Cortes MD [address] [place] [address] PCP - General 06/10/02 documented as of this encounter
--- OUTSIDE RECORDS SUMMARY | 2023-12-06 10:42 | External Medical Summary | Summary of Care ---
Author Name Unknown Organization [facility] Address [address] [place] [address] Phone [phone] Care Team Providers Care Waste Examiner Name Role Phone Estevan Cortes MD Primary Care Provider Reason for Visit * Reason Comments eRx-Medication Refill Encounter Details Date Type Department Care Team (Late st Contact Info) Description 11/26/2023 Refill [facility] [address] [place] [address] Estevan Cortes MD [address] [place], [place] [id number] Encounter for long-term (current) use of medications*; Paroxysmal atrial fibrillation (HCC); Dyslipidemia, goal LDL below 100; HTN, goal below 150/90 Allergies Active Allergy Reactions Criticality Noted Date Comments Bee Venom Anaphylaxis High 02/27/2006 Doxycycline Low 08/04/2023 Intolerant, GI upset documented as of this encounter (statuses as of 11/28/2023) Medications Medication Sig Dispensed Refills Start Date End Date Status CALCIUM + D 600-200 MG-UNIT PO TABS 1 BID 0 6 Active MULTIVITAMINS PO TABS daily 0 6 Active ACETAMINOPHEN 325 MG PO TABSIndications:IN TERFACED RESULT,Pneumothora x 2 Tab Oral Every 6 hours as needed for fever, pain, headache 1 Tab 0 4 Active [place]-3 Fatty Acids (FISH OIL) 1000 MG Capsule [...] Additional Information Patient not taking.Reported on 10/09/2023 Gabapentin 300 MG Oral Capsule (Neurontin)Indicat ions:Post-traumati [...] for Pain, Moderate. 45 Tablet 4 Active Tiotropium [place] Monohydrate 18 MCG Inhalation Capsule (Spiriva HandiHaler) [...] Code J 44.9 360 mL 4 Active Atorvastatin Calcium 40 MG Oral Tablet (Lipitor) TAKE 1 TABLET BY MOUTH EVERY DAY IN THE MORNING 90 Tablet 4 Active Eliquis 5 MG Oral Tablet (Apixaban)Indicati ons:Paroxysmal atrial fibrillation (HCC) TAKE 1 TABLET BY MOUTH IN THE MORNING AND BEFORE BEDTIME 180 Tablet 3 4 Active Carvedilol 12.5 MG Oral Tablet (Coreg)Indications :Dyslipidemia, goal LDL below 100,HTN, goal below 150/90 TAKE 1 AND 1/2 TABLETS BY MOUTH TWICE DAILY 270 Tablet 3 4 Active Atorvastatin Calcium 40 MG Oral Tablet (Lipitor) Take 1 Tablet by mouth in the morning. 90 Tablet 2 4 11/28/19 24 Discontinued Carvedilol 12.5 MG Oral Tablet (Coreg)Indications :Dyslipidemia, goal LDL below 100,HTN, goal below 150/90 TAKE 1 AND 1/2 TABLETS TWICE DAILY 270 Tablet 4 11/28/19 24 Discontinued Apixaban 5 MG Oral Tablet (Eliquis)Indicatio ns:Paroxysmal atrial fibrillation (HCC) Take 1 Tablet by mouth in the morning and 1 Tablet before bedtime. 60 Tablet 2 4 11/28/19 24 Discontinued Hospital, Clinic, or Other Facility [...] as of this encounter (statuses as of 11/28/2023) Active Problems Problem Noted Date Diagnosed Date COPD, group B, by GOLD 2017 classification 09/20 Overview: Per COPD GOLD Classification Acquired hypothyroidism 07/19/2023 History of coronary angioplasty with insertion o f stent 07/01/2023 Coronary artery disease invo lving [place] coronary artery of [place] heart without angina pectoris 07/01/2023 Hematuria of [...] as of this encounter (statuses as of 11/28/2023) Resolved Problems Problem Noted Date Diagnosed Date [...] as of this encounter (statuses as of 11/28/2023) Immunizations Name Administration Dates Next Due Pneumococcal [...] encounter Miscellaneous Notes * Telephone Encounter - Suzi Zabala RPh - 11/28/2023 1:08 PM EDT Signed Prescriptions: Disp Refills Atorvastatin Calcium 40 MG Oral Tablet (Li*90 Tab*0 Sig: TAKE 1 TABLET BY MOUTH EVERY DAY IN THE MORNINGAuthorizing Provider: ESTEVAN CORTES User: SUZI ZABALA Eliquis 5 MG Oral Tablet (Apixaban) 180 Ta*3 Sig: TAKE 1 TABLET BY MOUTH IN THE MORNING AND BEFORE BEDTIMEAuthorizing Provider: ESTEVAN CORTES User: SUZI ZABALA Carvedilol 12.5 MG Oral Tablet (Coreg) 270 Ta*3 Sig: TAKE 1 AND 1/2 TABLETS BY MOUTH TWICE DAILYAuthorizing Provider: ESTEVAN CORTES User: SUZI ZABALA * Telephone Encounter - Suzi Zabala RPh - 11/28/2023 1:04 PM EDT Patient has lab orders pending, with office visit scheduled for 02/10/2024. Authorizing refill(s) of med(s) until then. Thank you, Suzi Zabala PharmD, DONNA Clinical Pharmacist [facility] ([facility]) 11/28/23 1:08 PM [phone] documented in this encounter Plan of Treatment Upcoming Encounters Date Type Department Care Team (Late st Contact Info) Description 01/13/2024 3:00 PM EDT Cardiac Studies Cardiac Studies, [facility] [address] [facility] [place] [address] 02/10/2024 4:20 PM EDT Office Visit [facility] [place] [address] [place] [facility] [place] [id number] Estevan Cortes MD [address] [place] [address] 05/23/2024 2:00 PM EST Office Visit Pulmonary Medicine, [facility] [address] [facility] [place] [address] Marbin Serrano MD [address] [place] [address] 06/07/2024 8:30 AM EST Office Visit Cardiology, [facility] [address] [facility] [place] [address] Pepe Lennon, [address] [facility] [place] [address] Scheduled Orders Name Type Priority Associated Diagnoses Orde r Schedule LIPID PANEL WITH DIRECT LDL IF TG IS HIGH Lab Routine Dyslipidemia, goal LDL below 100 Encounter for long-term (current) use of medications Expected: 12/12/2023 (Approximate), Expires: 11/28/2024 Scheduled Procedures Name Priority Associated Diagnoses Date/Ti me COLONOSCOPY FLEXIBLE PROXIMA L DIAGNOSTIC Recall Encounter for screening colonoscopy Health Maintenance Due Date Last Done Comments DISCUSS TOBACCO CESSATION (REFER TO SMARTSET #7623) 1950 Alpha-1 Antitrypsin 1967 Cologuard 1994 Sigmoidoscopy [...] D LEVEL ONCE IN A LIFETIME-USE SMARTSET# 51838 Completed 03/22/2015 Pneumococcal Vaccine: 65+ Years Completed [...] this encounter Medical Devices Implanted Type Area Drying Tumbler Operator Device Identifier Shelf Expiration Date Model / Serial / Lot Chip Cancellous [facility] 129299 - [id number] 1 [place]ed:[place] 1 [place] [facility] [place] Left: Foot MUSCULOSKELETAL TRANSPLANT FND 07/24/2015 [id number] / [id number] / Screw Nonlock 3.5 X 24 - [id number] Implanted:Qty[place] 1 [place] [facility] [place] Foot ORTHOHELIX SURGICAL DESIGNS PATIENT SERVICES CLERK-011-3 5-24 / / Screw Locking 3.5 X 16 - [id number] Implanted:Qty: 2 [place] 08[place]08/2013 [place] [facility] [place]: Foot ORTHOHELIX SURGICAL DESIGNS PATIENT SERVICES CLERK-021-3 5-16 / / Plate 6 Hole Beta Mxl-0026 - [id number] Implanted:Qty: 1 [place] 08/08[place]2013 [place] [facility] [place]: Foot ORTHOHELIX SURGICAL DESIGNS MXL-0026 / / Screw Locking 3.5 X 20 - [id number] Implanted:Qty: 1 [place] 08/08/2013 [place] [facility] [place]: Foot ORTHOHELIX SURGICAL DESIGNS PATIENT SERVICES CLERK-021-3 5-20 / / Screw Nonlock 3.5 X 16 - [id number] Implanted:Qty: 1 [place] 08[place]08[place]2013 [place] [facility] [place]: Foot ORTHOHELIX SURGICAL DESIGNS PATIENT SERVICES CLERK-011-3 5-16 / / Screw Nonlock 3.5 X 18 - [id number] Implanted:Qty: 1 on 08/08/2013 [place] [facility] [place]: Foot ORTHOHELIX SURGICAL DESIGNS PATIENT SERVICES CLERK-011-3 5-18 / / Screw Nonlock 3.5 X 14 - [id number] Implanted:Qty: 1 on 08/08/2013 [place] [facility] [place]: Foot ORTHOHELIX SURGICAL DESIGNS PATIENT SERVICES CLERK-011-3 5-14 / / 4.0 X 3.0 Short Max Torque Implanted:Qty: 1 on 08/08/2013 [place] [facility] [place]: Foot ORTHOHELIX SURGICAL DESIGNS MSD-010-4 0-030S / / 4.0 X 32.5 Short Max Torque Implanted:Qty: 1 on 08/08/2013 [place] [facility] [place]: Foot MSD-010-4 0-325S / / 4.0 X 28 Short Max Torque Implanted:Qty: 1 on 08/08/2013 [place] [facility] [place]: Foot ORTHOHELIX SURGICAL DESIGNS MSD-010-4 0-028S / / 4.0 X 22 Short Max Torque Implanted:Qty: 1 on 08/08/2013 [place] [facility] [place]: Foot ORTHOHELIX SURGICAL DESIGNS MSD-010-4 0-022S / / [place] Gold 4.0 - [id number] Implanted:Qty: 1 on 08/08/2013 [place] [facility] [place]: Foot ORTHOHELIX SURGICAL DESIGNS CSS-500-4 0A / / Plate Lps Alpha 2 Slot - [id number] Implanted:Qty: 1 on 08/08/2013 [place] [facility] [place]: Foot ORTHOHELIX SURGICAL DESIGNS MXL-002-2 A / / Screw Variable 3.5 X 12mm - [id number] Implanted:Qty: 1 on 08/08/2013 [place] [facility] [place]: Foot ORTHOHELIX SURGICAL DESIGNS RAKESH-031-3 5-12 / / Screw Variable 3.5 X 18mm - [id number] Implanted:Qty: 1 on 08/08/2013 [place] [facility] [place]: Foot ORTHOHELIX SURGICAL DESIGNS RAKESH-031-3 5-18 / / documented as of this encounter Visit Diagnoses Diagnosis Encounter for long-term (current) use of medications- Primary Encounter for long-term (current) use of other medications Paroxysmal atrial fibrillation (HCC) Atrial fibrillation Dyslipidemia, goal LDL below 100 Other and unspecified hyperlipidemia HTN, goal below 150/90 documented in this encounter Advance Directives * [...] Power of Attor elizabeth? No Care Teams Waste Examiner Relationship Specialty Start Date End Date Estevan Cortes MD [address] [place] [address] PCP - General 06/10/02 documented as of this encounter
--- OUTSIDE RECORDS SUMMARY | 2023-12-06 10:42 | External Medical Summary | Summary of Care ---
Author Name Unknown Organization [facility] Address [address] [place] [address] Phone [phone] Care Team Providers Care Hog Buyer Name Role Phone Ronald Cortes MD Primary Care Provider [phone] Reason for Referral * Evaluate & Treat - Unlimited Visits (Within 10 days (routine)) - Authorized Specialty Diagnoses / Procedures Referred By Daja damon Referred To Contact Ophthalmology Diagnoses Chronic bacterial conjunctivitis of right eye Ronald Cortes MD [address] [place] [address] Referral ID Status Reason Start Date Expiration Date Visits Requested Visits Authorized [id number] Authorized Specialty Services Required 10/09/2023 999 999 Question Answer Referral Priority Within 10 days (routine) Where should this appointment be scheduled? [facility] Referring for: Ophthalmology Conditions Ophthalmology Conditions Lids/Orbit Specific Condition Other (comment) Comments Lower eyelid droping and associated infection Reason for Visit * Reason Comments Follow Up Patient is here toda y for a follow up. Patient states she is still having dropping of he right eye. Patient states when she was on the doxycyline she did nothing but projectile vomit. Patient states she has been having shaking episodes which have been getting progressively worse. Patient is here today with her daughter. Encounter Details Date Type Department Care Team (Latest Contact Info) Description 10/09/2023 12:00 PM EDT Office Visit [facility] [address] [place] [id number] Ronald Cortes MD [address] [place] [address] Chronic bacterial conjunctivitis of right eye*; COPD, group B, by GOLD 2017 classification (HCC); Need for vaccination for zoster; Nausea without vomiting Allergies Active Allergy Reactions Criticality Noted Date [...] pain, headache 1 Tab 0 4 Active Wenden-3 Fatty Acids (FISH OIL) 1000 MG Capsule [...] TIMES DAILY 270 Capsule 2 4 Active Potassium Chloride Unique ER 10 MEQ [...] bedtime. 60 Tablet 2 4 Active Tiotropium [place] Monohydrate 18 MCG Inhalation Capsule (Spiriva HandiHaler) INHALE THE CONTENTS OF 1 CAPSULE EVERY DAY VIA HANDIHALER (DO NOT SWALLOW) 90 Capsule 3 4 Active Fluticasone-Salmete rol 115-21 MCG/ACT Inhalation Aerosol (Advair Hfa) Inhale 2 Puffs by mouth in the morning and 2 Puffs before bedtime. 12 g 12 4 Active Additional Information Patient not taking.Reported on 10/09/2023 Citalopram Hydrobromide 40 MG Oral Tablet (CeleXA) TAKE 1 TABLET BY MOUTH EVERY DAY IN THE MORNING 90 Tablet 3 4 Active Ondansetron HCl 4 MG Oral Tablet (Zofran)Indications :Nausea without vomiting TAKE 1 TABLET EVERY 8 HOURS NEEDED FOR NAUSEA 20 Tablet 3 4 Active Losartan Potassium 100 MG Oral Tablet (Cozaar)Indications :HTN, goal below 150/90 Take 1 Tablet by mouth in the morning. 90 Tablet 3 4 10/09/19 Discontinu ed(Medicat ion List Clean Up) Ondansetron HCl 4 MG Oral Tablet (Zofran) TAKE 1 TABLET EVERY 8 HOURS NEEDED FOR NAUSEA 20 Tablet 3 4 10/09/19 Discontinu ed(Refill) Hospital, Clinic, or Other Facility [...] stent 07/01/2023 Coronary artery disease invo lving eklutna coronary artery of eklutna heart without angina pectoris 07/01/2023 Hematuria of [...] Sign Reading Time Taken Comments Blood Pressure 72/42 10/09/2023 12:19 PM EDT Pulse 76 10/09/2023 12:19 PM EDT Temperature 37.1 C (98.7 F) 10/09/2023 12:11 PM E DT Respiratory Rate 16 10/09/2023 12:11 PM EDT Oxygen Saturation 92% 10/09/2023 12:11 PM EDT Inhaled Oxygen Concentration - - Weight 56.1 kg (123 lb 9.6 oz) 10/09/2023 12:11 PM EDT Height 154.9 cm (5' 1") 10/09/2023 12:11 PM EDT Body Mass Index 23.35 10/09/2023 12:11 PM EDT documented in this [...] as of this encounter Progress Notes * Ronald Cortes MD - 10/09/2023 1:11 PM EDT Subjective: Kae Johnston is a 73 year old female. Chief Complaint Patient presents with Follow Up Patient is here today for a follow up. Patient states she is still having dropping of he right eye. Patient states when she was on the doxycyline she did nothing but projectile vomit. Patient states she has been having shaking episodes which have been getting progressively worse. Patient is here today with her daughter. HPI: 73-year-old seen today in recheck. Since I last saw her she has moved in with her daughter in the [facility]. She has no longer in [facility]. She notes that the chest rash has resolved. She did not tolerate doxycycline as it caused vomiting so she stopped it. She did use the eryth romycin for up to a month of the right eye but notes that she still has drainage from the eye and redness. But it is improved. Since I last saw her she saw Dr. Franklin Best in Pulmonary Medicine. He gave her a prescription for Advair but she could not afford it. She still has albuterol to use as rescue inhaler. She is having difficulty with balance primarily when she tries to walk. In the home she is able to grab a hold of furniture and work her way around. Outside the home she relies on a wheelchair or a walker. She also has a cane. 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 90 Tablet 3 Furosemide 40 MG Oral Tablet (Lasix) oxyBUTYnin Chloride ER 5 MG Oral Tablet Extended Release 24 Hour (Ditropan XL) Potassium Chloride ER 10 MEQ Oral Tablet Extended Release Triamcinolone Acetonide 0.1 % External Ointment (Aristocort) Apply topically to affected area 2 times a day. To affected area. 80 g 5 Atorvastatin Calcium 40 MG Oral Tablet (Lipitor) Take 1 Tablet by mouth in the morning. 90 Tablet 2 Carvedilol 12.5 MG Oral Tablet (Coreg) TAKE 1 AND 1/2 TABLETS TWICE DAILY 270 Tablet 0 Gabapentin 300 MG Oral Capsule (Neurontin) TAKE 1 CAPSULE THREE TIMES DAILY 270 Capsule 2 Potassium Chloride Unique ER [...] needed for Pain, Moderate. 45 Tablet 0 Ondansetron HCl 4 MG Oral Tablet (Zofran) TAKE 1 TABLET EVERY 8 HOURS NEEDED FOR NAUSEA 20 Tablet 3 Apixaban 5 MG Oral Tablet (Eliquis) Take 1 Tablet by mouth in the morning and 1 Tablet before bedtime. 60 Tablet 2 Tiotropium [place] Monohydrate 18 MCG Inhalation Capsule (Spiriva HandiHaler) INHALE THE CONTENTS OF 1 CAPSULE EVERY DAY VIA HANDIHALER (DO NOT SWALLOW) 90 Capsule 3 Citalopram Hydrobromide 40 MG Oral Tablet (CeleXA) TAKE 1 TABLET BY MOUTH EVERY DAY IN THE MORNING 90 Tablet 3 Wenden-3 Fatty Acids (FISH OIL) 1000 MG Capsule 1 Capsule in the morning. TO GO ondansetron ODT (ZOFRAN ODT) 4 MG Orally Disintegrated Tablet 1 tab every 8 hrs as needed fornausea (Patient not taking: Reported on 07/01/2023) 30 Each 3 Albuterol Sulfate HFA 108 (90 Base) MCG/ACT Inhalation Aerosol Solution INHALE 2 PUFFS FOUR TIMES DAILY NEEDED FOR WHEEZING 54 g 3 Estradiol 0.1 MG/GM Vaginal Cream (Estrace) Apply pea sized amount (0.5 gm) vaginally twice a week at bedtime (Patient not taking: Reported on 07/01/2023) 42.5 g 3 Econazole Nitrate 1 % External Cream (Spectazole) Apply topically to affected area daily. Apply to affected area (under breast) twice daily (Patient not taking: Reported on 07/01/2023) 85 g 1 Albuterol Sulfate HFA 108 (90 Base) MCG/ACT Inhalation Aerosol Solution Inhale 2 Puffs by mouth every 4 hours as needed for Wheezing or Cough. 18 g 5 Clotrimazole 1 % External Cream (Lotrimin) Apply topically to affected area 2 times a day. Apply toarea under breast twice daily until resolved (Patient not taking: Reported on 10/09/2023) 85 g 3 Fluticasone-Salmeterol 115-21 MCG/ACT Inhalation Aerosol (Advair Hfa) Inhale 2 Puffs by mouth in the morning and 2 Puffs before bedtime. (Patient not taking: Reported on 10/09/2023) 12 g 12 Current Facility-Administered Medications Medication Dose Route Frequency Provider Last Rate Last Admin albuterol sulfate (PROVENTIL) (2.5 MG/3ML) 0.083% inhalation solution 2.5 mg 2.5 mg Nebulizer Q4H PRN Ronald Cortes MD Albuterol Sulfate (Proventil) (5 MG/ML) 0.5% *conc* inhalation solution 2.5 mg 2.5 mg Nebulizer PRN Albuterol Sulfate (Proventil) (2.5 MG/3ML) 0.083% inhalation solution 2.5 mg 2.5 mg Nebulizer PRN Review of patient's allergies indicates: Allergen Reactions Bee Venom Anaphylaxis Doxycycline Intolerant, GI upset Objective: BP 72/42 | Pulse 76 | Temp 37.1 C (98.7 F) (Tympanic) | Resp 16 | Ht 1.549 m (5' 1") | Wt 56.1 kg (123 lb 9.6 oz) | SpO2 92% | BMI 23.35 kg/m | BSA 1.55 m Physical Exam: She did not appear to be in any distress sitting in the wheelchair. But her blood pressure is notably low at 72/42. Her blood pressure was low when I saw her a few months ago but not quite so low. CONST: alert, pleasant, no acute distress HEAD: normocephalic, atraumatic NECK: supple, soft, no adenopathy EARS: canals normal, TMs normal NARES: clear Eyes she has a folding down of the right lower eyelid with associated palpebral conjunctiva injection of the right lower eyelid but she also has some swelling of the conjunctiva and some bulb are conjunctiva injection. At this time there was no drainage OROPHARYNX: clear, no swelling or erythema, moist CV: regular rate and rhythm, no murmur CHEST: clear to auscultation bilaterally, no rales or wheezing ABD: soft, non tender, non distended, no masses or hepatosplenomegaly EXT: Trace to 1+ bilateral lower leg edema, no joint swelling or deformities, MENTAL STATUS: no evidence of thought disorder, no delusional thought, no evidence of paranoia, thought is non-tangential. SKIN: no rash or significant lesions ASSESSMENT/PLAN: Chronic bacterial conjunctivitis of right eye (Primary)-likely consequence of the ectropion of the eyelid-refer to ophthalmology in [facility] COPD, group B, by GOLD 2017 classification (HCC)-right now she is limited by cost of medicine. She can use albuterol as needed she also has oxygen which she uses 2 L continuous although she did not have it on today. Low blood pressure-the exact etiology is unclear but she is on losartan 100 mg a day. I asked that she stopped that. She has a blood pressure monitor home I wanted to check her blood pressure 3 timesa week. If she sees the blood pressure markedly high she should get back in touch with me. Um oval that just taken her off losartan her blood pressure will improve in the that will in turn allow her to feel better in in help her Um overall balance (decrease orthostasis). Hypothyroid-her TSH was slightly elevated when checked in June. It is unclear whether she was taking levothyroxine then. I believe she is taking levothyroxine 25 mcg now. Need repeat TSH. If the TSHis normal, she does not need to do anything different. If the TSH is again high then we need to adjust her levothyroxine dose so will have to clarify if she is taking. Follow Up: Return in about 4 months (around 02/08/2024) for Return with Physician. | For: Return with Physician | Check-out note: Refer to ophthalmology - dr Mitchell or Dr Luna groups Ronald Cortes MD documented in this encounter Nursing Notes * Jaylin Jarvis LPN - 10/09/2023 12:24 PM EDT The patient has been properly identified by confirmation of name and date of . Chief Complaint Patient presents with Follow Up Patient is here today for a follow up. Patient states she is still having dropping of he right eye. Patient states when she was on the doxycyline she did nothing but projectile vomit. Patient states she has been having shaking episodes which have been getting progressively worse. Patient is here today with her daughter. documented in this encounter Plan of Treatment Upcoming Encounters Date Type Department Care Team (Late st Contact Info) Description 11/03/2023 12:40 PM EDT Office Visit Pul[facility], [facility] [address] [facility] [place] [address] Marbin Serrano MD [address] [facility] [address] 11/13/2023 1:00 PM EDT Office Visit Cardiology, [facility] [address] [facility] [place] [address] Pepe Lennon DO [address] [place] [address] 02/10/2024 4:20 PM EDT Office Visit [facility] [address] [place] [phone] Ronald Cortes MD [address] [place] [address] Scheduled Procedures Name Priority Associated Diagnoses Date/Ti me COLONOSCOPY FLEXIBLE PROXIMA L DIAGNOSTIC Recall Encounter for screening colonoscopy Scheduled Referrals Name Type Priority Associated Diagnoses Orde r Schedule ADULT/PEDS OPHTHALMOLOGY/OPTO METRY REFERRAL OP Referral Within 10 days (routine) Chronic bacterial conjunctivitis of right eye Ordered: 10/09/2023 Health Maintenance Due Date Last Done Comments [...] D LEVEL ONCE IN A LIFETIME-USE SMARTSET# 37016 Completed 03/22/2015 Pneumococcal Vaccine: 65+ Years Completed [...] this encounter Medical Devices Implanted Type Area Deliverer Food Device Identifier Shelf Expiration Date Model / Serial / Lot Chip Cancellous [facility] [id number] - [id number] Implanted:Qty: 1 on 08/08/[address] [facility] [place] - Human Left: Foot MUSCULOSKELETAL TRANSPLANT FND 07/24/2015 [id number] / [id number] / Screw Nonlock 3.5 X 24 - [id number] Implanted:Qty: 1 on 08/08/[address] [facility] [place]: Foot [employer]HEL[employer] SOFTWARE ARCHITECT-011-3 5-24 / / Screw Locking 3.5 X 16 - [id number] Implanted:Qty: 2 on 08/08/[address] [facility] [place]: Foot [employer]THOHEL[employer] COM[employer]ER SYSTEM[employer] SOFTWARE ARCHITECT-021-3 5-16 / / Plate 6 Hole Beta Mxl-0026 - [id number] Implanted:Qty: 1 on 08/08/[address] [facility] [place]: Foot [employer] MXL-0026 / / Screw Locking 3.5 X 20 - [id number] Implanted:Qty: 1 on 08/08/[address] [facility] [place]: Foot ORTHOHELIX [employer] COM[employer]ER SYSTEM[employer] SOFTWARE ARCHITECT-021-3 5-20 / / Screw Nonlock 3.5 X 16 - [id number] Implanted:Qty: 1 on 08/08/[address] [facility] [place]: Foot ORTHOHELIX [employer] COM[employer] SYSTEM[employer] SOFTWARE ARCHITECT-011-3 5-16 / / Screw Nonlock 3.5 X 18 - [id number] Implanted:Qty: 1 on 08/08/[address] [facility] [place]: Foot ORTHOHEL[employer] SOFTWARE ARCHITECT-011-3 5-18 / / Screw Nonlock 3.5 X 14 - [id number] Implanted:Qty: 1 on 08/08/[address] [facility] [place]: Foot [employer]THOHEL[employer] COMPUTER SYSTEM[employer] SOFTWARE ARCHITECT-011-3 5-14 / / 4.0 X 3.0 Short Max Torque Implanted:Qty: 1 on 08/08/[address] [facility] [place]: Foot [employer] MSD-010-4 0-030S / / 4.0 X 32.5 Short Max Torque Implanted:Qty: 1 on 08/08/[address] [facility] [place]: Foot MSD-010-4 0-325S / / 4.0 X 28 Short Max Torque Implanted:Qty: 1 on 08/08/[address] [facility] [place]: Foot [employer]HEL[employer] MSD-010-4 0-028S / / 4.0 X 22 Short Max Torque Implanted:Qty: 1 on 08/08/[address] [facility] [place]: Foot [employer]THOHEL[employer] MSD-010-4 0-022S / / [place] Gold 4.0 - [id number] Implanted:Qty: 1 on 08/08/[address] [facility] [place] Left: Foot [employer]HEL[employer] CSS-500-4 0A / / Plate Lps Alpha 2 Slot - [id number] Implanted:Qty: 1 on 08/08/[address] [facility] [place]: Foot [employer]HEL[employer] MXL-002-2 A / / Screw Variable 3.5 X 12mm - [id number] Implanted:Qty: 1 on 08/08/[address] [facility] [place] Left: Foot [employer]HEL[employer] RAKESH-031-3 5-12 / / Screw Variable 3.5 X 18mm - [id number] Implanted:Qty: 1 on 08/08/[address] [facility] [place]: Foot [employer] RAKESH-031-3 5-18 / / documented as of this encounter Visit Diagnoses Diagnosis Chronic bacterial conjunctivitis of right eye- Primary COPD, group B, by GOLD 2017 classification (HCC) Need for vaccination for zoster Need for prophylactic vaccination and inoculation against other viral diseases Nausea without vomiting documented in this encounter Advance Directives * [...] Power of Attor elizabeth? No Care Teams Hog Buyer Relationship Specialty Start Date End Date Ronald Cortes MD [address] [facility] [place] [address] PCP - General 06/10/02 documented as of this encounter
--- OUTSIDE RECORDS SUMMARY | 2023-12-06 10:42 | External Medical Summary | Summary of Care ---
Author Name Unknown Organization [facility] Address [address] [place] [address] Phone [phone] Care Team Providers Care Burr Sander Name Role Phone Ronald Cortes MD Primary Care Provider [phone] Reason for Visit * Reason Onset Date Comments Advice 06/19/2023 Checking appts w ith pcp Encounter Details Date Type Department Care Team (Late st Contact Info) Description 06/19/2023 Telephone [facility] [address] [place] [address] Ronald Cortes MD [address] [place] [address] Advice (Checking appts with pcp) Allergies Active Allergy Reactions Criticality Noted Date Comments Bee Venom Anaphylaxis High 02/27/2006 Doxycycline Low 08/04/2023 Intolerant, GI upset documented as of this encounter (statuses as of 09/18/2023) Medications Medication Sig Dispensed Refills Start Date End Date Status CALCIUM + D 600-200 MG-UNIT PO TABS 1 BID 0 03/13/2006 Active MULTIVITAMINS PO TABS daily 0 03/13/2006 Active ACETAMINOPHEN 325 MG PO TABSIndications:INTE RFACED RESULT,Pneumothorax 2 Tab Oral Every 6 hours as needed for fever, pain, headache 1 Tab 0 07/27/2013 Active Hickman-3 Fatty Acids (FISH OIL) 1000 MG Capsule [...] the morning. 90 Tablet 3 07/29/2022 Active Additional Information Patient not taking.Reported on 07/01/2023 Estradiol 0.1 MG/GM Vaginal Cream (Estrace) Apply pea sized amount (0.5 gm) vaginally twice a week at bedtime 42.5 g 3 11/25/2022 Active Additional Information Patient not taking.Reported on 07/01/2023 Hospital, Clinic, or Other Facility Administered Medication Ordered Dose Route Frequency Start Date End Date Status albuterol sulfate (PROVENTIL) (2.5 MG/3ML) 0.083% inhalation solution 2.5 mgIndications:Chronic nonspecific lung disease 2.5 mg NEBULIZER Q4H PRN 12/23/2017 Active documented as of this encounter (statuses as of 09/18/2023) Active Problems Problem Noted Date Diagnosed Date Acquired hypothyroidism 07/19/2023 History of coronary angioplasty with insertion o f stent 07/01/2023 Coronary artery disease invo lving havasupai coronary artery of havasupai heart without angina pectoris 07/01/2023 Chronic obstructive pulmonary disease (COPD) Hematuria of undiagnosed cause 07/12/2019 Tobacco use [...] as of this encounter (statuses as of 09/18/2023) Resolved Problems Problem Noted Date Diagnosed Date Resolved Date Bee sting allergy 12/05/2013 06/11/2018 Fracture of [...] HTN, goal below 140/90 06/02/200111/15 Mixed dyslipidemia 12/14/200 9 Overview: Per Lipid Taxonomy. Tobacco use disorder 000 documented as of this encounter (statuses as of 09/18/2023) Immunizations Name Administration Dates Next Due Pneumococcal [...] Used Date Smoking Tobacco: Every Day Cigarettes 1 20 Smokeless Tobacco: Never Alcohol [...] encounter Miscellaneous Notes * Telephone Encounter - Yasmany Faulkner OSA - 06/19/2023 8:49 AM EST [facility] confirming patient is still seeing Dr Cortes. Confirmed status, also last and upcoming appt dates. documented in this encounter Plan of Treatment Upcoming Encounters Date Type Department Care Team (Late st Contact Info) Description 10/06/2023 2:30 PM EDT PulmDiagnostic Pulmonary Function Lab, [facility] [address] [facility] [place] [address] [place], [address] [facility] [place] [address] 10/09/2023 12:00 PM EDT Office Visit [facility] [address] [place] [address] Ronald Cortes MD [address] [place] [address] 11/03/2023 12:40 PM EDT Office Visit Pulmonary Medicine, [facility] [address] [facility] [place] [address] Marbin Serrano MD [address] [facility] [address] 11/13/2023 1:00 PM EDT Office Visit Cardiology, [facility] [address] [facility] [place] [address] Pepe eLnnon DO [address] [place] [address] Scheduled Procedures Name Priority Associated Diagnoses Date/Ti me COLONOSCOPY FLEXIBLE PROXIMA L DIAGNOSTIC Recall Encounter for screening colonoscopy Health Maintenance Due Date Last Done Comments DISCUSS TOBACCO CESSATION (REFER TO SMARTSET #8978) 1950 Alpha-1 Antitrypsin 1967 Cologuard 1994 Sigmoidoscopy [...] D LEVEL ONCE IN A LIFETIME-USE SMARTSET# 81227 Completed 03/22/2015 Pneumococcal Vaccine: 65+ Years Completed [...] this encounter Medical Devices Implanted Type Area Calibration Specialist Device Identifier Shelf Expiration Date Model / Serial / Lot Chip Cancellous [facility] 605554 - [id number] Implanted:Qty: 1 on 08/08/[address] [facility] [place] Tissue - Human Left: Foot MUSCULOSKELETAL TRANSPLANT FND 07/24/2015 [id number] / [id number] / Screw Nonlock 3.5 X 24 - [id number] Implanted:Qty: 1 on 08/08/[address] [facility] [place] Left: Foot ORTHOHELIX [employer] DESIGNS CYLINDER HONER-011-3 5-24 / / Screw Locking 3.5 X 16 - [id number] Implanted:Qty: 2 on 08/08/2013 at [facility] Left: Foot ORTHOHELIX [employer] DESIGNS CYLINDER HONER-021-3 5-16 / / Plate 6 Hole Beta Mxl-0026 - [id number] Implanted:Qty: 1 on 08/08/[address] [facility] [place] Left: Foot ORTHOHELIX [employer] DES[employer]NS MXL-0026 / / Screw Locking 3.5 X 20 - [id number] Implanted:Qty: 1 on 08/08/[address] [facility] [place] Left: Foot ORTHOHELIX [employer] DESIGNS CYLINDER HONER-021-3 5-20 / / Screw Nonlock 3.5 X 16 - [id number] Implanted:Qty: 1 on 08/08/[address] [facility] [place] Left: Foot ORTHOHELIX [employer] DESIGNS CYLINDER HONER-011-3 5-16 / / Screw Nonlock 3.5 X 18 - [id number] Implanted:Qty: 1 on 08/08/[address] [facility] [place] Left: Foot ORTHOHELIX [employer] DES[employer]NS CYLINDER HONER-011-3 5-18 / / Screw Nonlock 3.5 X 14 - [id number] Implanted:Qty: 1 on 08/08/[address] [facility] [place] Left: Foot ORTHOHEL[employer] DES[employer] CYLINDER HONER-011-3 5-14 / / 4.0 X 3.0 Short Max Torque Implanted:Qty: 1 on 08/08/[address] [facility] [place] Left: Foot ORTHOHEL[employer]NS MSD-010-4 0-030S / / 4.0 X 32.5 Short Max Torque Implanted:Qty: 1 on 08/08/[address] [facility] [place] Left: Foot MSD-010-4 0-325S / / 4.0 X 28 Short Max Torque Implanted:Qty: 1 on 08/08/[address] [facility] [place] Left: Foot ORTHOHELIX [employer] DESIGNS MSD-010-4 0-028S / / 4.0 X 22 Short Max Torque Implanted:Qty: 1 on 08/08/[address] [facility] [place] Left: Foot ORTHOHELIX SURG[employer] DESIGNS MSD-010-4 0-022S / / [place] Gold 4.0 - [id number] Implanted:Qty: 1 on 08/08/[address] [facility] [place] Left: Foot ORTHOHELIX [employer] DESIGNS CSS-500-4 0A / / Plate Lps Alpha 2 Slot - [id number] Implanted:Qty: 1 on 08/08/[address] [facility] [place] Left: Foot ORTHOHELIX [employer] DESIGNS MXL-002-2 A / / Screw Variable 3.5 X 12mm - [id number] Implanted:Qty: 1 on 08/08/[address] [facility] [place] Left: Foot ORTHOHELIX [employer] DESIGNS RAKESH-031-3 5-12 / / Screw Variable 3.5 X 18mm - [id number] Implanted:Qty: 1 on 08/08/[address] [facility] [place] Left: Foot ORTHOHELIX [...] Power of Attor elizabeth? No Care Teams Burr Sander Relationship Specialty Start Date End Date Ronald Cortes MD [address], [place] [phone] PCP - General 06/10/02 documented as of this encounter
--- OUTSIDE RECORDS SUMMARY | 2023-12-06 10:42 | External Medical Summary | Summary of Care ---
Author Name Unknown Organization [facility] Address [address] [place] [address] Phone [phone] Care Team Providers Care Senior Technical Specialist Name Role Phone Estevan Cortes MD Primary Care Provider [phone] Reason for Visit * Reason Comments eRx-Medication Refill Encounter Details Date Type Department Care Team (Late st Contact Info) Description 09/06/2023 Refill [facility] [address] [place] [address] Estevan Cortes MD [address], [place] [phone] Allergies Active Allergy Reactions Criticality Noted Date Comments Bee Venom Anaphylaxis High 02/27/2006 Doxycycline Low 08/04/2023 Intolerant, GI upset documented as of this encounter (statuses as of 09/08/2023) Medications Medication Sig Dispensed Refills Start Date End Date Status CALCIUM + D 600-200 MG-UNIT PO TABS 1 BID 0 6 Active MULTIVITAMINS PO TABS daily 0 6 Active ACETAMINOPHEN 325 MG PO TABSIndications:IN TERFACED RESULT,Pneumothora x 2 Tab Oral Every 6 hours as needed for fever, pain, headache 1 Tab 0 4 Active Moody-3 Fatty Acids (FISH OIL) 1000 MG Capsule 1 Capsule in the morning. Active TO GO ondansetron ODT (ZOFRAN ODT) 4 MG Orally Disintegrated TabletIndications: Nonspecific colitis 1 tab every 8 hrs as needed for nausea 30 Each 3 0 Active Additional Information Patient not taking.Reported on 07/01/2023 Albuterol Sulfate HFA 108 (90 Base) MCG/ACT Inhalation Aerosol SolutionIndication s:Chronic nonspecific lung disease INHALE 2 PUFFS FOUR TIMES DAILY NEEDED FOR WHEEZING 54 g 3 1 Active Magnesium Oxide 400 MG Oral TabletIndications: Hypomagnesemia [...] until resolved 85 g 3 4 Active Atorvastatin Calcium 40 MG [...] the day.. 90 Capsule 2 4 Active Losartan Potassium 100 MG Oral Tablet (Cozaar)Indication s:HTN, goal below 150/90 Take 1 Tablet by mouth in the morning. 90 Tablet 3 4 Active traMADol HCl 50 MG Oral Tablet (Ultram)Indication s:Generalized osteoarthritis of multiple sites Take 1 Tablet by mouth every 6 hours as needed for Pain, Moderate. 45 Tablet 4 Active Ondansetron HCl 4 MG Oral Tablet (Zofran) TAKE 1 TABLET EVERY 8 HOURS NEEDED FOR NAUSEA 20 Tablet 3 4 Active Apixaban 5 MG Oral Tablet (Eliquis)Indicatio ns:Paroxysmal atrial fibrillation (HCC) Take 1 Tablet by mouth in the morning and 1 Tablet before bedtime. 60 Tablet 2 4 Active Tiotropium Sturgeon Monohydrate 18 MCG Inhalation Capsule (Spiriva HandiHaler) INHALE THE CONTENTS OF 1 CAPSULE EVERY DAY VIA HANDIHALER (DO NOT SWALLOW) 90 Capsule 3 4 Active Fluticasone-Salmet jody 115-21 MCG/ACT Inhalation Aerosol (Advair Hfa) Inhale 2 Puffs by mouth in the morning and 2 Puffs before bedtime. 12 g 12 4 Active Citalopram Hydrobromide 40 MG Oral Tablet (CeleXA) TAKE 1 TABLET BY MOUTH EVERY DAY IN THE MORNING 90 Tablet 3 4 Active Citalopram Hydrobromide 40 MG Oral Tablet (CeleXA) Take 1 Tablet by mouth in the morning. 90 Tablet 4 09/08/19 24 Discontinued Hospital, Clinic, or Other Facility [...] as of this encounter (statuses as of 09/08/2023) Active Problems Problem Noted Date Diagnosed Date Acquired hypothyroidism 07/19/2023 History of coronary angioplasty with insertion o f stent 07/01/2023 Coronary artery disease invo lving k[place] coronary artery of [place] heart without angina pectoris 07/01/2023 Chronic obstructive [...] as of this encounter (statuses as of 09/08/2023) Resolved Problems Problem Noted Date Diagnosed Date [...] HTN, goal below 140/90 06/02/200111/15 Mixed dyslipidemia 03/26/ 9 Overview: Per Lipid Taxonomy. Tobacco use disorder 000 documented as of this encounter (statuses as of 09/08/2023) Immunizations Name Administration Dates Next Due Pneumococcal [...] 09(Deferred: Patient Refused),03/15/2007,02/13/2006 TD, Preservative Free 09/12/2021 TDAP (age 11 and older)(Adacel) 06/10/2010 Varicella Zoster Vaccine (Adult) 01/23/2012 documented as of this encounter Social History Tobacco Use Types Packs/Day Years Used Date Smoking Tobacco: Every Day Cigarettes 0.6 69 Started: 09/02/1973 Smokeless Tobacco: Never Comments:04/14 ppd. [...] encounter Miscellaneous Notes * Telephone Encounter - Deejay Virgen [facility] - 09/08/2023 12:33 PM EDTSigned Prescriptions: Disp Refills Citalopram Hydrobromide 40 MG Oral Tablet *90 Tab*3 Sig: TAKE 1 TABLET BY MOUTH EVERY DAY IN THE MORNINGAuthorizing Provider: ESTEVAN CORTES User: DEEJAY VIRGEN documented in this encounter Plan of Treatment Upcoming Encounters Date Type Department Care Team (Late st Contact Info) Description 10/06/2023 2:30 PM EDT PulmDiagnostic Pulmonary Function Lab, [facility] [address] [place] [address] [place], [address] [facility] [place] [address] 10/09/2023 12:00 PM EDT Office Visit [facility] [address] [place] [facility] [place] [phone] Estevan Cortes MD [address] [place] [facility] [place] [address] 11/03/2023 12:40 PM EDT Office Visit Pulmonary Medicine, [facility] [address] [facility] [place] [address] Marbin Serrano MD [address] [place] [address] 11/13/2023 1:00 PM EDT Office Visit Cardiology, [facility] [address] [place] [address] Pepe Lennon, [address] [facility] [place] [address] Scheduled Procedures Name Priority Associated Diagnoses Date/Ti [...] D LEVEL ONCE IN A LIFETIME-USE SMARTSET# 77721 Completed 03/22/2015 Pneumococcal Vaccine: 65+ Years Completed [...] this encounter Medical Devices Implanted Type Area Human Resources Vice President Device Identifier Shelf Expiration Date Model / Serial / Lot Chip Cancellous [facility] 985633 - [id number] Implanted:Qty: 1 on 08/08/2013 at [place] [facility] [place] Tissue - Human Left: Foot MUSCULOSKELETAL TRANSPLANT FND 07/24/2015 [id number] / [id number] / Screw Nonlock 3.5 X 24 - [id number] Implanted:Qty: 1 on 08/08/2013 at OR [facility] [place] Left: Foot ORTHOHELIX SURG[employer] DESIGNS COMPOSITE WORKER-011-3 5-24 / / Screw Locking 3.5 X 16 - [id number] Implanted:Qty: 2 on 08/08/2013 at OR [facility] [place] Left: Foot ORTHOHELIX [employer] DESIGNS COMPOSITE WORKER-021-3 5-16 / / Plate 6 Hole Beta Mxl-0026 - [id number] Implanted:Qty: 1 on 08/08/2013 at OR [facility] [place] Left: Foot ORTHOHELIX [employer] DESIGNS MXL-0026 / / Screw Locking 3.5 X 20 - [id number] Implanted:Qty: 1 on 08/08/2013 at OR [facility] [place] Left: Foot ORTHOHELIX SURGICAL DESIGNS COMPOSITE WORKER-021-3 5-20 / / Screw Nonlock 3.5 X 16 - [id number] Implanted:Qty: 1 on 08/08/2013 at [place] [facility] [place] Left: Foot ORTHOHELIX SURG[employer] DESIGNS COMPOSITE WORKER-011-3 5-16 / / Screw Nonlock 3.5 X 18 - [id number] Implanted:Qty: 1 on 08/08/2013 at OR [facility] [place] Left: Foot ORTHOHELIX SURG[employer] DESIGNS COMPOSITE WORKER-011-3 5-18 / / Screw Nonlock 3.5 X 14 - [id number] Implanted:Qty: 1 on 08/08/2013 at [place] [facility] [place] Left: Foot ORTHOHELIX SURG[employer] DESIGNS COMPOSITE WORKER-011-3 5-14 / / 4.0 X 3.0 Short Max Torque Implanted:Qty: 1 on 08/08/2013 at OR [facility] [place] Left: Foot ORTHOHELIX SURG[employer] DESIGNS MSD-010-4 0-030S / / 4.0 X 32.5 Short Max Torque Implanted:Qty: 1 on 08/08/2013 at OR [facility] [place] Left: Foot MSD-010-4 0-325S / / 4.0 X 28 Short Max Torque Implanted:Qty: 1 on 08/08/2013 at [place] [facility] [place] Left: Foot ORTHOHELIX SURG[employer] DESIGNS MSD-010-4 0-028S / / 4.0 X 22 Short Max Torque Implanted:Qty: 1 on 08/08/2013 at [place] [facility] [place] Left: Foot ORTHOHELIX SURGICAL DESIGNS MSD-010-4 0-022S / / [place]he Flat Gold 4.0 - [id number] Implanted:Qty: 1 on 08/08/2013 at OR [facility] [place] Left: Foot ORTHOHELIX [employer] DESIGNS CSS-500-4 0A / / Plate Lps Alpha 2 Slot - [id number] Implanted:Qty: 1 on 08/08/2013 at [place] [facility] [place] Left: Foot ORTHOHELIX SURG[employer] DESIGNS MXL-002-2 A / / Screw Variable 3.5 X 12mm - [id number] Implanted:Qty: 1 on 08/08/2013 at OR [facility] [place] Left: Foot ORTHOHELIX SURG[employer] DESIGNS RAKESH-031-3 5-12 / / Screw Variable 3.5 X 18mm - [id number] Implanted:Qty: 1 on 08/08/2013 at [place] [facility] [place] Left: Foot ORTHOHELIX SURGICAL DESIGNS RAKESH-031-3 5-18 [...] Power of Attor elizabeth? No Care Teams Senior Technical Specialist Relationship Specialty Start Date End Date Estevan Cortes MD [address] [place] [address] PCP - General 06/10/02 documented as of this encounter
--- OUTSIDE RECORDS SUMMARY | 2023-12-06 10:43 | External Medical Summary | Summary of Care ---
Author Name Unknown Organization [facility] Address [address] [place] [address] Phone [phone] Care Team Providers Care Serologist Name Role Phone Ronald Cortes MD Primary Care Provider Encounter Details Date Type Department Care Team (Late st Contact Info) Description 08/17/2023 Telephone [facility] [address] [place] [address] Ronald Cortes MD [address] [place] [address] Allergies Active Allergy Reactions Criticality Noted Date Comments Bee Venom Anaphylaxis High 02/27/2006 Doxycycline Low 08/04/2023 Intolerant, GI upset documented as of this encounter (statuses as of 08/17/2023) Medications Medication Sig Dispensed Refills Start Date End Date Status CALCIUM + D 600-200 MG-UNIT PO TABS 1 BID 0 03/13/2006 Active MULTIVITAMINS PO TABS daily 0 03/13/2006 Active ACETAMINOPHEN 325 MG PO TABSIndications:INTE RFACED RESULT,Pneumothorax 2 Tab Oral Every 6 hours as needed for fever, pain, headache 1 Tab 0 07/27/2013 Active [place]-3 Fatty Acids (FISH OIL) 1000 MG Capsule 1 Capsule in the morning. 0 Active TO GO ondansetron ODT (ZOFRAN ODT) 4 MG Orally Disintegrated TabletIndications:No nspecific colitis 1 tab every 8 hrs as needed for nausea 30 Each 3 07/12/2019 Active Additional Information Patient not taking.Reported on 07/01/2023 Spiriva HandiHaler 18 MCG Inhalation Capsule (tiotropium bromide) INHALE THE CONTENTS OF 1 CAPSULE EVERY DAY VIA HANDIHALER (DO NOT SWALLOW) 90 Capsule 3 03/14/2021 Active Additional Information Patient not taking.Reported on [...] Active Furosemide 40 MG Oral Tablet (Lasix) 0 06/02/2023 Activ e oxyBUTYnin Chloride ER 5 MG Oral Tablet Extended Release 24 Hour (Ditropan XL) 0 06/02/2023 Active Potassium Chloride ER 10 MEQ Oral Tablet Extended Release 0 06/03/2023 Active Triamcinolone Acetonide 0.1 % External Ointment (Aristocort)Indicati ons:Candidal intertrigo Apply topically to affected area 2 times a day. To affected area. 80 g 5 07/02/2023 Active Clotrimazole 1 % External Cream (Lotrimin)Indication s:Candidal intertrigo Apply topically to affected area 2 times a day. Apply to area under breast twice daily until resolved 85 g 3 07/02/2023 Active Atorvastatin Calcium 40 MG Oral Tablet (Lipitor) Take 1 Tablet by mouth in the morning. 90 Tablet 2 08/05/2023 Active Carvedilol 12.5 MG Oral Tablet (Coreg)Indications:D yslipidemia, goal LDL below 100,HTN, goal below 150/90 TAKE 1 AND 1/2 TABLETS TWICE DAILY 270 Tablet 0 08/05/2023 Active Citalopram Hydrobromide 40 MG Oral Tablet (CeleXA) Take 1 Tablet by mouth in the morning. 90 Tablet 0 08/05/2023 Active Gabapentin 300 MG Oral Capsule [...] the day.. 90 Capsule 2 08/05/2023 Active Losartan Potassium 100 MG Oral Tablet (Cozaar)Indications: HTN, goal below 150/90 Take 1 Tablet by mouth in the morning. 90 Tablet 3 08/06/2023 Active traMADol HCl 50 MG Oral Tablet (Ultram)Indications: Generalized osteoarthritis of multiple sites Take 1 Tablet by mouth every 6 hours as needed for Pain, Moderate. 45 Tablet 0 08/07/2023 Active Ondansetron HCl 4 MG Oral Tablet (Zofran) TAKE 1 TABLET EVERY 8 HOURS NEEDED FOR NAUSEA 20 Tablet 3 08/07/2023 Active Apixaban 5 MG Oral Tablet (Eliquis)Indications :Paroxysmal atrial fibrillation (HCC) Take 1 Tablet by mouth in the morning and 1 Tablet before bedtime. 60 Tablet 2 08/17/2023 Active Hospital, Clinic, or Other Facility Administered Medication Ordered Dose Route Frequency Start Date End Date Status albuterol sulfate (PROVENTIL) (2.5 MG/3ML) 0.083% inhalation solution 2.5 mgIndications:Chronic nonspecific lung disease 2.5 mg NEBULIZER Q4H PRN 12/23/2017 Active documented as of this encounter (statuses as of 08/17/2023) Active Problems Problem Noted Date Diagnosed Date Acquired hypothyroidism 07/19/2023 History of coronary angioplasty with insertion o f stent 07/01/2023 Coronary artery disease invo lving [place] coronary artery of [place] heart without angina pectoris 07/01/2023 Chronic obstructive [...] as of this encounter (statuses as of 08/17/2023) Resolved Problems Problem Noted Date Diagnosed Date [...] as of this encounter (statuses as of 08/17/2023) Immunizations Name Administration Dates Next Due Pneumococcal [...] encounter Miscellaneous Notes * Telephone Encounter - Ronald Cortes MD - 08/17/2023 5:31 PM EDT Notify: She has history of using Eliquis and Amiodarone after her hospitalizations in [place] Mar 2023. I will fill script for Eliquis 5mg BID but she needs to review this with cardiology (Not sure if [place] or [place]) when she sees them. * Telephone Encounter - Mandi Landeros PHARM Tech - 08/17/2023 3:05 PM EDT Patient calling requesting the following medication below that is listed as "Historical". The following information was provided: Medication Name: Eliquis Strength: 5mg Directions: 1 po by mouth bid Preferred Quantity: 30 Previous Prescriber: hospital Preferred Pharmacy: [facility] Please review and approve if appropriate. Thank you, Mandi Landeros Ring Attacher I [facility] ([facility])(formerly Telepharmacy) 08/17/2023,3:06 PM documented in this encounter Plan of Treatment Upcoming Encounters Date Type Department Care Team (Late st Contact Info) Description 10/09/2023 12:00 PM EDT Office Visit [facility] [address] [place] [address] Ronald Cortes MD [address] [place] [address] Scheduled Procedures Name Priority Associated Diagnoses Date/Ti me COLONOSCOPY FLEXIBLE PROXIMA L DIAGNOSTIC Recall Encounter for screening colonoscopy Health Maintenance Due Date Last Done Comments Alpha-1 Antitrypsin 1967 O2 ASSESSMENT COMPLETED IN PAST YEAR FOR COPD 1967 Cologuard 1994 Sigmoidoscopy 1994 Zoster Vaccines [...] history exists TSH 06/30/2024 07/01/2023, 07/13, 05/26/2001 Albumin/Creatinine Ratio 08/15/2025 08/15/2022 Colonoscopy 06/02/2027 06/02/2017, 04/12/2007 Colorectal Cancer Screening 06/02/2027 DTaP,Tdap,and Td Vaccines (3 - Td or Tdap) 09/13/2031 09/12/2021, 06/10/2010, 07/16/1999 VITAMIN D LEVEL ONCE IN A LIFETIME-USE SMARTSET# 31554 Completed 03/22/2015 Pneumococcal Vaccine: 65+ Years Completed 12/31/2016, 11/17/2014, 06/10/2010 GARDASIL-HPV IMMUNIZATION SERIES Aged Out No longer eligible based on patient's age to complete this topic Hepatitis B Aged Out No longer eligi ble based on patient's age to complete this topic MENINGOCOCCAL (MENACTRA/MENVEO) Aged Out No longer eligible based on patient's age to complete this topic documented as of this encounter Medical Devices Implanted Type Area Lead Etl Developer Device Identifier Shelf Expiration Date Model / Serial / Lot Chip Cancellous 5cc [id number] - [id number] Implanted:Qty: 1 on 08/08/2013 at [place] [facility] [place] Tissue - Human Left: Foot MUSCULOSKELETAL TRANSPLANT FND 07/24/2015 [id number] / [id number] / Screw Nonlock 3.5 X 24 - [id number] Implanted:Qty: 1 on 08/08/2013 at OR [facility] [place] Left: Foot ORTHOHELIX SURG[employer] DESIGNS TOY MECHANIC-011-3 5-24 / / Screw Locking 3.5 X 16 - [id number] Implanted:Qty: 2 on 08/08/2013 at [place] [facility] [place] Left: Foot ORTHOHELIX SURGICAL DESIGNS TOY MECHANIC-021-3 5-16 / / Plate 6 Hole Beta Mxl-0026 - [id number] Implanted:Qty: 1 on 08/08/2013 at [place] [facility] [place] Left: Foot ORTHOHELIX SURG[employer] DESIGNS MXL-0026 / / Screw Locking 3.5 X 20 - [id number] Implanted:Qty: 1 on 08/08/2013 at OR [facility] [place] Left: Foot ORTHOHELIX SURGICAL DESIGNS TOY MECHANIC-021-3 5-20 / / Screw Nonlock 3.5 X 16 - [id number] Implanted:Qty: 1 on 08/08/2013 at [place] [facility] [place] Left: Foot ORTHOHELIX SURGICAL DESIGNS TOY MECHANIC-011-3 5-16 / / Screw Nonlock 3.5 X 18 - [id number] Implanted:Qty: 1 on 08/08/2013 at [place] [facility] [place] Left: Foot ORTHOHELIX SURGICAL DESIGNS TOY MECHANIC-011-3 5-18 / / Screw Nonlock 3.5 X 14 - [id number] Implanted:Qty: 1 on 08/08/2013 at [place] [facility] [place] Left: Foot ORTHOHELIX SURGICAL DESIGNS TOY MECHANIC-011-3 5-14 / / 4.0 X 3.0 Short Max Torque Implanted:Qty: 1 on 08/08/2013 at [place] [facility] [place] Left: Foot ORTHOHELIX SURGICAL DESIGNS MSD-010-4 0-030S / / 4.0 X 32.5 Short Max Torque Implanted:Qty: 1 on 08/08/2013 at [place] [facility] [place] Left: Foot MSD-010-4 0-325S / / 4.0 X 28 Short Max Torque Implanted:Qty: 1 on 08/08/2013 at [place] [facility] [place] Left: Foot ORTHOHELIX SURGICAL DESIGNS MSD-010-4 0-028S / / 4.0 X 22 Short Max Torque Implanted:Qty: 1 on 08/08/2013 at [place] [facility] [place] Left: Foot ORTHOHELIX SURGICAL DESIGNS MSD-010-4 0-022S / / [place] Gold 4.0 - [id number] Implanted:Qty: 1 on 08/08/2013 at [place] [facility] [place] Left: Foot ORTHOHELIX SURGICAL DESIGNS CSS-500-4 0A / / Plate Lps Alpha 2 Slot - [id number] Implanted:Qty: 1 on 08/08/2013 at [place] [facility] [place] Left: Foot ORTHOHELIX SURGICAL DESIGNS MXL-002-2 A / / Screw Variable 3.5 X 12mm - [id number] Implanted:Qty: 1 on 08/08/2013 at [place] [facility] [place] Left: Foot ORTHOHELIX SURGICAL DESIGNS RAKESH-031-3 5-12 / / Screw Variable 3.5 X 18mm - [id number] Implanted:Qty: 1 on 08/08/2013 at [place] [facility] [place] Left: Foot ORTHOHELIX SURGICAL DESIGNS RAKESH-031-3 5-18 / / documented as of this encounter Visit Diagnoses Diagnosis Paroxysmal atrial fibrillation (HCC)- Primary Atrial fibrillation documented in this encounter Advance Directives Latest Code Status on File Code Status Date Activated Date Inactivated Comments Full Code 08/08/2013 9:39 PM 08/09/2013 7:25 PM This order reflects the patients wishes and were consensually agreed upon. Question Answer Comments Discussion of Advance Directives occurred with: Patient Does the patient have a Living Will? No Does the patient have Health Care Power of Steam Bone Press Tender? No Code Status History Code Status Date Activated Date Inactivated Comments Full Code 08/08/2013 4:09 PM 08/08/2013 9:39 PM This order reflects the patients wishes and were consensually agreed upon. Full Code 07/18/2013 3:12 PM 07/27/2013 9:13 PM Question Answer Comments Discussion of Advance Directives occurred with: Not Discussed Does the patient have a Living Will? No Does the patient have Health Care Power of Steam Bone Press Tender? No Care Teams Serologist Relationship Specialty Start Date End Date Ronald Cortes MD [address] [place] [address] PCP - General 06/10/02 documented as of this encounter
--- OUTSIDE RECORDS SUMMARY | 2023-12-06 10:43 | External Medical Summary | Summary of Care ---
Author Name Unknown Organization [facility] Address [address] [place] [address] Phone [phone] Care Team Providers Care Mat Roller Name Role Phone Ronald Cortes MD Primary Care Provider Reason for Visit * Reason Onset Date Comments Side Effects of Medications 08/04/2023 Encounter Details Date Type Department Care Team (Late st Contact Info) Description 08/04/2023 Telephone [facility] [address] [place] [address] Ronald Cortes MD [address] [place] [address] Side Effects of Medications Allergies Active Allergy Reactions Criticality Noted Date Comments Bee Venom Anaphylaxis High 02/27/2006 Doxycycline Low 08/04/2023 Intolerant, GI upset documented as of this encounter (statuses as of 08/05/2023) Medications Medication Sig Dispensed Refills Start Date End Date Status CALCIUM + D 600-200 MG-UNIT PO TABS 1 BID 0 6 Active MULTIVITAMINS PO TABS daily 0 6 Active ACETAMINOPHEN 325 MG PO TABSIndications:INT ERFACED RESULT,Pneumothorax 2 Tab Oral Every 6 hours as needed for fever, pain, headache 1 Tab 0 4 Active [place]-3 Fatty Acids (FISH OIL) 1000 MG Capsule [...] (DO NOT SWALLOW) 90 Capsule 3 1 Active Additional Information Patient not taking.Reported on 07/01/2023 Albuterol Sulfate HFA 108 (90 Base) MCG/ACT Inhalation Aerosol SolutionIndications :Chronic nonspecific lung disease INHALE 2 PUFFS FOUR TIMES DAILY NEEDED FOR WHEEZING 54 g 3 1 Active Losartan Potassium 100 MG Oral Tablet (Cozaar)Indications :HTN, goal below 150/90 Take 1 Tablet by mouth in the morning. 90 Tablet 3 3 Active Ondansetron HCl 4 MG Oral Tablet (Zofran) TAKE 1 TABLET EVERY 8 HOURS NEEDED FOR NAUSEA 20 Tablet 3 3 Active Magnesium Oxide 400 MG Oral TabletIndications:H ypomagnesemia Take 1 Tablet by mouth in the morning. 90 Tablet 3 3 Active Additional Information Patient not taking.Reported on 07/01/2023 traMADol HCl 50 MG Oral Tablet (Ultram)Indications :Generalized osteoarthritis of multiple sites Take 1 Tablet by mouth every 6 hours as needed for Pain, Moderate. TAKE 1 TABLET DAILY NEEDED FOR MODERATE PAIN 45 Tablet 0 3 Active Additional Information Patient not taking.Reported [...] Furosemide 40 MG Oral Tablet (Lasix) 0 4 Active oxyBUTYnin Chloride ER 5 MG Oral Tablet Extended Release 24 Hour (Ditropan XL) 0 4 Active Potassium Chloride ER 10 MEQ Oral Tablet Extended Release 0 4 Active Triamcinolone Acetonide 0.1 % External Ointment (Aristocort)Indicat ions:Candidal intertrigo Apply topically to affected area 2 times a day. To affected area. 80 g 5 4 Active Clotrimazole 1 % External Cream (Lotrimin)Indicatio ns:Candidal intertrigo Apply topically to affected area 2 times a day. Apply to area under breast twice daily until resolved 85 g 3 4 Active Polymyxin B-Trimethoprim 22363-4.1 UNIT/ML-% Ophthalmic SolutionIndications :Acute bacterial conjunctivitis of right eye Instill 2 drops into right eye four times daily for 7 days 10 mL 0 4 08/11/19 24 Active Alendronate Sodium 70 MG Oral Tablet (Fosamax)Indication s:Other osteoporosis without current pathological fracture,Dyslipidem ia, goal LDL below 100 TAKE 1 TABLET EVERY WEEK DIRECTED , SEE PACKAGE FOR ADDITIONAL INSTRUCTIONS 12 Tablet 3 4 08/05/19 24 Discontinu ed(Refill) Atorvastatin Calcium 40 MG Oral Tablet (Lipitor) Take 1 Tablet by mouth in the morning. 90 Tablet 3 4 08/05/19 24 Discontinu ed(Refill) Carvedilol 12.5 MG Oral Tablet (Coreg)Indications: Dyslipidemia, goal LDL below 100,HTN, goal below 150/90 TAKE 1 AND 1/2 TABLETS TWICE DAILY 270 Tablet 1 4 08/05/19 24 Discontinu ed(Refill) Citalopram Hydrobromide 40 MG Oral Tablet (CeleXA) Take 1 Tablet by mouth in the morning. 90 Tablet 1 4 08/05/19 24 Discontinu ed(Refill) Gabapentin 300 MG Oral Capsule (Neurontin)Indicati ons:Post-traumatic arthrosis of multiple joints TAKE 1 CAPSULE THREE TIMES DAILY 270 Capsule 3 4 08/05/19 24 Discontinu ed(Refill) Levothyroxine Sodium 25 MCG Oral Tablet (Levoxyl)Indication s:Acquired hypothyroidism Take 1 Tablet by mouth in the morning. (at least 30 min prior to breakfast or other meds). 90 Tablet 3 4 08/05/19 Discontinu ed(Refill) Omeprazole 20 MG Oral Capsule Delayed Release (PriLOSEC)Indicatio ns:Gastroesophageal reflux disease, unspecified whether esophagitis present Take 1 Capsule by mouth in the morning. 1 hour before the first meal of the day.. 90 Capsule 3 4 08/05/19 Discontinu ed(Refill) Potassium Chloride Unique ER 10 MEQ Oral Tablet Extended Release Take 1 Tablet by mouth in the morning and 1 Tablet before bedtime. 180 Tablet 3 4 08/05/19 Discontinu ed(Refill) traZODone HCl 50 MG Oral Tablet (Desyrel)Indication s:Sleep disorder TAKE 1 TO 2 TABLETS BEFORE BEDTIME. 180 Tablet 2 4 08/05/19 Discontinu ed(Refill) Hospital, Clinic, or Other Facility Administered Medication Ordered Dose Route Frequency Start Date End Date Status albuterol sulfate (PROVENTIL) (2.5 MG/3ML) 0.083% inhalation solution 2.5 mgIndications:Chronic nonspecific lung disease 2.5 mg NEBULIZER Q4H PRN 12/23/2017 Active documented as of this encounter (statuses as of 08/05/2023) Active Problems Problem Noted Date Diagnosed Date Acquired hypothyroidism 07/19/2023 History of coronary angioplasty with insertion o f stent 07/01/2023 Coronary artery disease invo lving [place] coronary artery of [place] heart without angina pectoris 07/01/2023 Chronic obstructive [...] as of this encounter (statuses as of 08/05/2023) Resolved Problems Problem Noted Date Diagnosed Date [...] as of this encounter (statuses as of 08/05/2023) Immunizations Name Administration Dates Next Due Pneumococcal [...] encounter Miscellaneous Notes * Telephone Encounter - Patricia Hughes RPh - 08/05/2023 4:31 PM EDT Pt notified of provider's message Thank you, Patricia Hughes, PharmD Clinical Pharmacist [facility]) 08/05/23 4:31 PM [phone] * Telephone Encounter - Ronald Cortes MD - 08/04/2023 4:53 PM EDT Please contact Pt: if her eye is still bothering her, she needs to see an eye glass frame polisher. That could be optometry or ophthalmology. She mentioned wanting to see someone in [place] She would need to arrange.Other option is to see provider in [place] See what she wants to do.Let me know. Switch to polymycin opth drops . Emailed script to [facility] * Telephone Encounter - Patricia Hughes RPh - 08/04/2023 3:49 PM EDT Pt reported intolerance to doxy - prescribed in June (see OV notes from 07/05/23). Patient report intertrigo/cellulitis has resolved. Additional therapy not warranted at this time. Patient calling to report ongoing conjunctivitis symptoms Right eyelids red/swollen, pinkish sclera, eye droop, purulent drainage, itchiness, denies any changes in vision Would be agreeable to acute OV if recommended. Completed 10 day course of erythromycin opth ointment - However, does report issues with application of eye ointment. Recommend course of polytrim - rx pended. Please approve if appropriate and route back to me so pt can be notified. Pending Prescriptions: Disp Refills Polymyxin B-Trimethoprim 64929-3.1 UNIT/M*10 mL 0 Sig: Instill 2 drops into right eye four times daily for 7 days Thank you, Patricia Hughes, PharmD Clinical Pharmacist [facility]) 08/04/23 4:09 PM [phone] * Telephone Encounter - Deann Ash PHARM Tech - 08/04/2023 3:45 PM EDT Patient calling in because she can't take the Doxycycline Hyclate 100 MG Oral Capsule. Every time she takes it she throws up. She's taken it with food and without food with the same result. She is wondering if the doctor could send in something else. Transferred to pharmacist. Deann Khan Dry Chain Puller II [facility] [address] [place] [address] 08/04/2023 3:46 PM documented in this encounter Plan of Treatment Upcoming Encounters Date Type Department Care Team (Late st Contact Info) Description 10/09/2023 12:00 PM EDT Office Visit [facility] [address] [place] [address] Ronald Cortes MD [address] [place] [address] Scheduled Procedures Name Priority Associated [...] D LEVEL ONCE IN A LIFETIME-USE SMARTSET# 63345 Completed 03/22/2015 Pneumococcal Vaccine: 65+ Years Completed [...] this encounter Medical Devices Implanted Type Area Personnel Specialist Device Identifier Shelf Expiration Date Model / Serial / Lot Chip Cancellous 5cc [id number] - [id number] Implanted:Qty: 1 on 08/08/2013 [place] [facility] [place] - Human Left: Foot MUSCULOSKELETAL TRANSPLANT FND 07/24/2015 [id number] / [id number] / Screw Nonlock 3.5 X 24 - [id number] Implanted:Qty: 1 on 08/08/2013 at [place] [facility] [place] Left: Foot ORTHOHELIX SURGICAL DESIGNS ROUGH CARPENTER-011-3 5-24 / / Screw Locking 3.5 X 16 - [id number] Implanted:Qty: 2 on 08/08/2013 at [place] [facility] [place]: Foot ORTHOHELIX SURGICAL DESIGNS ROUGH CARPENTER-021-3 5-16 / / Plate 6 Hole Beta Mxl-0026 - [id number] Implanted:Qty: 1 on 08/08/2013 at [place] [facility] [place] Left: Foot ORTHOHELIX SURGICAL DESIGNS MXL-0026 / / Screw Locking 3.5 X 20 - [id number] Implanted:Qty: 1 on 08/08/2013 at [place] [facility] [place] Left: Foot ORTHOHELIX SURGICAL DESIGNS ROUGH CARPENTER-021-3 5-20 / / Screw Nonlock 3.5 X 16 - [id number] Implanted:Qty: 1 on 08/08/2013 at [place] [facility] [place] Left: Foot ORTHOHELIX SURGICAL DESIGNS ROUGH CARPENTER-011-3 5-16 / / Screw Nonlock 3.5 X 18 - [id number] Implanted:Qty: 1 on 08/08/2013 at [place] [facility] [place] Left: Foot ORTHOHELIX SURGICAL DESIGNS ROUGH CARPENTER-011-3 5-18 / / Screw Nonlock 3.5 X 14 - [id number] Implanted:Qty: 1 on 08/08/2013 at [place] [facility] [place] Left: Foot ORTHOHELIX SURGICAL DESIGNS ROUGH CARPENTER-011-3 5-14 / / 4.0 X 3.0 Short Max Torque Implanted:Qty: 1 on 08/08/2013 at [place] [facility] [place] Left: Foot ORTHOHELIX SURGICAL DESIGNS MSD-010-4 0-030S / / 4.0 X 32.5 Short Max Torque Implanted:Qty: 1 on 08/08/2013 at [place] [facility] [place] Left: Foot MSD-010-4 0-325S / / 4.0 X 28 Short Max Torque Implanted:Qty: 1 on 08/08/2013 at [place] [facility] [place] Left: Foot ORTHOHELIX SURGICAL DESIGNS MSD-010-4 0-028S / / 4.0 X 22 Short Max Torque Implanted:Qty: 1 on 08/08/2013 at [place] [facility] [place] Left: Foot ORTHOHELIX SURGICAL DESIGNS MSD-010-4 0-022S / / [place] Gold 4.0 - [id number] Implanted:Qty: 1 on 08/08/2013 at [place] [facility] [place] Left: Foot ORTHOHELIX SURGICAL DESIGNS CSS-500-4 0A / / Plate Lps Alpha 2 Slot - [id number] Implanted:Qty: 1 on 08/08/2013 at [place] [facility] [place] Left: Foot ORTHOHELIX SURGICAL DESIGNS MXL-002-2 A / / Screw Variable 3.5 X 12mm - [id number] Implanted:Qty: 1 on 08/08/2013 at [place] [facility] [place] Left: Foot ORTHOHELIX SURGICAL DESIGNS RAKESH-031-3 5-12 / / Screw Variable 3.5 X 18mm - [id number] Implanted:Qty: 1 on 08/08/2013 at [place] [facility] [place] Left: Foot ORTHOHELIX SURGICAL DESIGNS RAKESH-031-3 5-18 / / documented as of this encounter Visit Diagnoses Diagnosis Acute bacterial conjunctivitis of both eyes- Primary Acute bacterial conjunctivitis of right eye documented in this encounter Advance Directives Latest Code Status on File Code Status Date Activated Date Inactivated Comments Full Code 08/08/2013 9:39 PM 08/09/2013 7:25 PM This order reflects the patients wishes and were consensually agreed upon. Question Answer Comments Discussion of Advance Directives occurred with: Patient Does the patient have a Living Will? No Does the patient have Health Care Power of Water Purifier Operator? No Code Status History Code Status Date [...] the patient have Health Care Power of Water Purifier Operator? No Care Teams Mat Roller Relationship Specialty Start Date End Date Ronald Cortes MD [address] [place] [address] PCP - General 06/10/02 documented as of this encounter
--- OUTSIDE RECORDS SUMMARY | 2023-12-06 10:43 | External Medical Summary | Summary of Care ---
Author Name Unknown Organization [facility] Address [address] [place] [address] Phone [phone] Care Team Providers Care Supervisor Order Takers Name Role Phone Ronald Cortes MD Primary Care Provider [phone] Encounter Details Date Type Department Care Team (Late st Contact Info) Description 08/17/2023 Telephone [facility] [address] [place] [address] Ronald Cortes MD [address] [place] [address] Allergies Active Allergy Reactions Criticality Noted Date Comments Bee Venom Anaphylaxis High 02/27/2006 Doxycycline Low 08/04/2023 Intolerant, GI upset documented as of this encounter (statuses as of 08/26/2023) Medications Medication Sig Dispensed Refills Start Date End Date Status CALCIUM + D 600-200 MG-UNIT PO TABS 1 BID 0 03/13/2006 Active MULTIVITAMINS PO TABS daily 0 03/13/2006 Active ACETAMINOPHEN 325 MG PO TABSIndications:INTE RFACED RESULT,Pneumothorax 2 Tab Oral Every 6 hours as needed for fever, pain, headache 1 Tab 0 07/27/2013 Active [place]-3 Fatty Acids (FISH OIL) 1000 MG Capsule [...] as of this encounter (statuses as of 08/26/2023) Active Problems Problem Noted Date Diagnosed Date Acquired hypothyroidism 07/19/2023 History of coronary angioplasty with insertion o f stent 07/01/2023 Coronary artery disease invo [place]ving [place] coronary artery of [place] heart without angina pectoris 07/01/2023 Chronic obstructive [...] as of this encounter (statuses as of 08/26/2023) Resolved Problems Problem Noted Date Diagnosed Date [...] as of this encounter (statuses as of 08/26/2023) Immunizations Name Administration Dates Next Due Influenza, Whole Virus 01/28/1999 Pneumococcal Conjugate Vacc, 13 Valent (Prevnar) 11/17/2014 Pneumococcal Polysaccharide PPV23 (Pneumovax) 12/31/2016,06/10/2010 Season Influenza, Quad, PF, Adjuvanted, 65+ Yrs, IM (FLUAD) 01/24/2020 Seasonal Influenza Virus Vac cine, Unspecified Formulation 02/28/1998 Seasonal Influenza, PF, 6 M & above, IM , (FluLaval or Fluzone) 12/27/2018,12/21/2017,12/31/2016 Seasonal Influenza, Quadriva lent Hd (Fluzone Hd) 03/14/2021 Seasonal Influenza, Quadriva lent, No Preserve, IM 03/22/2015 03/22/2016 Seasonal Influenza, Split, I IV3, With Preserve, Inj 12/28/2013,01/19/2013,01/15/2012,01/11,02/11/2010,05/12/2008,05/12/19 09(Deferred: Patient Refused),03/15/2007,02/13/2006 TD - Tetanus/Diptheria (ADULT) 07/16/1999 TD, Preservative Free 09/12/2021 TDAP (age 11 and older)(Adacel) 06/10/2010 Tetanus Toxid Adsorbed 11/19/1978 Varicella Zoster Vaccine (Adult) 01/23/2012 documented as [...] encounter Miscellaneous Notes * Telephone Encounter - Jaylin Jarvis LPN - 08/26/2023 2:57 PM EDT Called and spoke with patient and she is aware of information from Dr. Cortes and states she is going to call cardiology and confirm with them they want her to be taking the medication as well as scheduling an appointment. * Telephone Encounter - Ronald Cortes MD - 08/17/2023 5:31 PM EDT Notify: She has history of using Eliquis and Amiodarone after her hospitalizations in [place] Mar 2023. I will fill script for Eliquis 5mg BID but she needs to review this with cardiology (Not sure if [place] or [place]) when she sees them. * Telephone Encounter - Mandi Landeros PHARM Tech - 08/17/2023 3:05 PM EDT Patient calling requesting the following medication below that is listed as "Historical". The following information was provided: Medication Name: Eliquis Strength: 5mg Directions: 1 po by mouth bid Preferred Quantity: 30 Previous Prescriber: hospital Preferred Pharmacy: [facility] Please review and approve if appropriate. Thank you, Mandi Landeros Drapery Sewer Hand [facility] 08/17/2023,3:06 PM documented in this encounter Plan of Treatment Upcoming Encounters Date Type Department Care Team (Late st Contact Info) Description 10/09/2023 12:00 PM EDT Office Visit [facility] [address] [place] [place] [address] Ronald Cortes MD [address] [place] [address] Scheduled Procedures Name Priority Associated [...] D LEVEL ONCE IN A LIFETIME-USE SMARTSET# 13189 Completed 03/22/2015 Pneumococcal Vaccine: 65+ Years Completed [...] this encounter Medical Devices Implanted Type Area Higher Level Teaching Assistant Device Identifier Shelf Expiration Date Model / Serial / Lot Chip [facility] 215861 - [id number] Implanted:Qty: 1 on 08/08/2013 at [place] [facility] [place] Tissue - Human Left: Foot [employer] FND 07/24/2015 [id number] / [id number] / Screw Nonlock 3.5 X 24 - [id number] Implanted:Qty: 1 on 08/08/2013 at [place] [facility] [place] Left: Foot [employer] MAINTENANCE AIDE-011-3 5-24 / / Screw Locking 3.5 X 16 - [id number] Implanted:Qty: 2 on 08/08/2013 at [place] [facility] [place] Left: Foot [employer] MAINTENANCE AIDE-021-3 5-16 / / Plate 6 Hole Beta Mxl-0026 - [id number] Implanted:Qty: 1 on 08/08/2013 at [place] [facility] [place] Left: Foot [employer] MXL-0026 / / Screw Locking 3.5 X 20 - [id number] Implanted:Qty: 1 on 08/08/2013 at [place] [facility] [place] Left: Foot [employer] MAINTENANCE AIDE-021-3 5-20 / / Screw Nonlock 3.5 X 16 - [id number] Implanted:Qty: 1 on 08/08/2013 at [place] [facility] [place] Left: Foot [employer] MAINTENANCE AIDE-011-3 5-16 / / Screw Nonlock 3.5 X 18 - [id number] Implanted:Qty: 1 on 08/08/2013 at [place] [facility] [place] Left: Foot [employer] MAINTENANCE AIDE-011-3 5-18 / / Screw Nonlock 3.5 X 14 - [id number] Implanted:Qty: 1 on 08/08/2013 at [place] [facility] [place] Left: Foot [employer] MAINTENANCE AIDE-011-3 5-14 / / 4.0 X 3.0 Short Max Torque Implanted:Qty: 1 on 08/08/2013 at [place] [facility] [place] Left: Foot [employer] MSD-010-4 0-030S / / 4.0 X 32.5 Short Max Torque Implanted:Qty: 1 on 08/08/2013 at [place] [facility] [place] Left: Foot MSD-010-4 0-325S / / 4.0 X 28 Short Max Torque Implanted:Qty: 1 on 08/08/2013 at [place] [facility] [place] Left: Foot [employer] MSD-010-4 0-028S / / 4.0 X 22 Short Max Torque Implanted:Qty: 1 on 08/08/2013 at [place] [facility] [place] Left: Foot [employer] MSD-010-4 0-022S / / [place] Gold 4.0 - [id number] Implanted:Qty: 1 on 08/08/2013 at [place] [facility] [place] Left: Foot [employer] CSS-500-4 0A / / Plate Lps Alpha 2 Slot - [id number] Implanted:Qty: 1 on 08/08/2013 at [place] [facility] [place] Left: Foot [employer] MXL-002-2 A / / Screw Variable 3.5 X 12mm - [id number] Implanted:Qty: 1 on 08/08/2013 at [place] [facility] [place] Left: Foot [employer] RAKESH-031-3 5-12 / / Screw Variable 3.5 X 18mm - [id number] Implanted:Qty: 1 on 08/08/2013 at [place] [facility] [place] Left: Foot [employer] RAKESH-031-3 5-18 [...] the patient have Health Care Power of [place] [employer] Director? No Code Status History Code Status Date [...] the patient have Health Care Power of [place] [employer] Director? No Care Teams Supervisor Order Takers Relationship Specialty Start Date End Date Ronald Cortes MD [address] [place] [address] PCP - General 06/10/02 documented as of this encounter
--- OUTSIDE RECORDS SUMMARY | 2023-12-06 10:43 | External Medical Summary | Summary of Care ---
Author Name Unknown Organization [facility] Address [address] [place] [address] Phone [phone] Care Team Providers Care Pony Ride Operator Name Role Phone Ronald Cortes MD Primary Care Provider [phone] Reason for Referral * (Within 10 days (routine)) - Pending Review Specialty Diagnoses / Procedures Referred By Contchikis t Referred To Contact Radiology Diagnoses History of tobacco abuse Procedures LUNG CANCER SCREENING PROGRAM REFERRAL Marbin Serrano MD [address] [id number] Referral ID Status Reason Start Date Expiration Date V isits Requested Visits Authorized [id number] Pending Review 09/03/2023 999 999 Reason for Visit * Reason Comments NEW PATIENT Here new pulm. COPD. Encounter Details Date Type Department Care Team (Late st Contact Info) Description 09/03/2023 2:20 PM EDT Office Visit Pulmonary Medicine, [address] [place] [address] Marbin Serrano MD [address] [id number] Pulmonary emphysema, unspecified emphysema type (HCC)*; History of tobacco abuse Allergies Active Allergy Reactions Criticality Noted Date Comments Bee Venom Anaphylaxis High 02/27/2006 Doxycycline Low 08/04/2023 Intolerant, GI upset documented as of this encounter (statuses as of 09/03/2023) Medications Medication Sig Dispensed Refills Start Date End Date Status CALCIUM + D 600-200 MG-UNIT PO TABS 1 BID 0 6 Active MULTIVITAMINS PO TABS daily 0 6 Active ACETAMINOPHEN 325 MG PO TABSIndications:INT ERFACED RESULT,Pneumothorax 2 Tab Oral Every 6 hours as needed for fever, pain, headache 1 Tab 0 4 Active [place]-3 Fatty Acids (FISH OIL) 1000 MG Capsule [...] TABLETS TWICE DAILY 270 Tablet 4 Active Citalopram Hydrobromide 40 MG Oral Tablet (CeleXA) Take 1 Tablet by mouth in the morning. 90 Tablet 4 Active Gabapentin 300 MG Oral [...] bedtime. 60 Tablet 2 4 Active Tiotropium [place] Monohydrate 18 MCG Inhalation Capsule (Spiriva HandiHaler) INHALE THE CONTENTS OF 1 CAPSULE EVERY DAY VIA HANDIHALER (DO NOT SWALLOW) 90 Capsule 3 4 Active Fluticasone-Salmete rol 115-21 MCG/ACT Inhalation Aerosol (Advair Hfa) Inhale 2 Puffs by mouth in the morning and 2 Puffs before bedtime. 12 g 12 4 Active Spiriva HandiHaler 18 MCG Inhalation Capsule (tiotropium bromide) INHALE THE CONTENTS OF 1 CAPSULE EVERY DAY VIA HANDIHALER (DO NOT SWALLOW) 90 Capsule 3 1 09/03/19 24 Discontinu ed(Refill) Hospital, Clinic, or Other [...] as of this encounter (statuses as of 09/03/2023) Active Problems Problem Noted Date Diagnosed Date Acquired hypothyroidism 07/19/2023 History of coronary angioplasty with insertion o f stent 07/01/2023 Coronary artery disease invo lving [place] coronary artery of [place] heart without angina pectoris 07/01/2023 Chronic obstructive [...] as of this encounter (statuses as of 09/03/2023) Resolved Problems Problem Noted Date Diagnosed Date [...] as of this encounter (statuses as of 09/03/2023) Immunizations Name Administration Dates Next Due Pneumococcal [...] 0.6 69 Started: 09/02/1973 Smokeless Tobacco: Never Tobacco Cessation:Ready to Q uit: Not Asked Comments:1/2 ppd. Smoker 09/03/23 Alcohol Use Standard Drinks/Week Comments No 0 [...] Sign Reading Time Taken Comments Blood Pressure 98/60 09/03/2023 2:44 PM EDT Pulse 72 09/03/2023 2:44 PM EDT Temperature 36.6 C (97.9 F) 09/03/2023 2:44 PM ED T Respiratory Rate 16 09/03/2023 2:44 PM EDT Oxygen Saturation 94% 09/03/2023 2:44 PM EDT o2 2L -rest Inhaled Oxygen Concentration - - Weight 56.7 kg (125 lb) 09/03/2023 2:44 PM EDT Height 154.9 cm (5' 1") 09/03/2023 2:44 PM EDT Body Mass Index 23.62 09/03/2023 2:44 PM EDT documented in this encounter Functional [...] No 08/08/2013 documented as of this encounter Patient Instructions * Patient Instructions* Marbin Serrano MD - 09/03/2023 3:03 PM EDT Kae Johnston [id number] Benefits of Quitting Smoking Why should I quit smoking? Smoking is bad for you and bad for others around you. Smoking causes cancer, heart attacks, hardening of the arteries, bronchitis, emphysema, cough, shortness of breath, wrinkles, and premature aging. It stains teeth and fingers, irritates the eyes, furs the tongue, and causes bad breath. People are living longer today than their parents did, so it makes sense to work on staying healthy and independent. One of the best ways to do this is to quit smoking. Benefits of quitting smoking It takes time to reverse many years' worth of smoking damage to your body, but some benefits of quitting smoking begin immediately. For example, you're financially better off on day one. Your health starts to improve right away, too, because you remove a former constant source of irritation from your lungs. People may comment that you no longer cough. Your blood circulation is likely to improve, so your hands and feet may feel warmer. Your teeth, breath, and fingers are no longer a turn-off. Benefits that you're less aware of also begin to occur. These include better resistance to colds and respiratory infections, less likelihood of major heart and circulation problems, less risk of high blood pressure or stroke, and less risk of developing cancer. The following arguments are often presented by smokers as justifications for their continuing to smoke: "I have to sometime, so I might as well enjoy life until then." True, but as a smoker you're much more likely to of a heart attack or cancer - neither of whichare very pleasant ways to go. "I'm only hurting myself." True, if you don't count the heartache and grief you may cause your loved ones by your early or permanent disability, or the damage of your smoke to others. "Lots of people who smoke live to ripe old ages in perfect health." True, but this is rare. Nearly all smokers have significant health problems. "Smoking is one of my pleasures. I don't want to quit." Smoking is associated with pleasure because the nicotine in tobacco is an addictive drug. Your bodywill continue to crave a regular supply until you can overcome the habit. Smoking is always a disadvantage to your health and that of your loved ones. "It's my choice and I choose to smoke." True. It is your choice. In a survey of older former smokers, more than 90% quit on their own because they decided to do so. The main reasons they gave for quitting were wanting to stay healthy, following health care provider's advice, regaining control of their lives, and making a loved one happy . [place] Department of Health Quit Line [employer] Free Quitline 8-586 QUIT NOW ( ) Your insurance company may also have more information and helpful programs to help you quit. Some may even help cover some of the costs. For example, [facility] members can call to find out about their smoking cessation program and medication coverage. Developed by Kiersten Larson MD, for [employer]. Published by [employer]. Last modified: 2005-08-22 Last reviewed: 2005-06-11 This content is reviewed periodically and is subject to change as new health information becomes available. The information is intended to inform and educate and is not a replacement for medical evaluation, advice, diagnosis or treatment by a healthcare professional. Adult Health Advisor 2006.4 Index Adult Health Advisor 2006.4 Credits Copyright 2006 [employer] and/or one of its subsidiaries. All Rights Reserved. documented in this encounter Progress Notes * Marbin Serrano MD - 09/03/2023 3:01 PM EDT 09/03/2023 Pulmonary Medicine, [address] [place] [id number] Kae Johnston 1950 female 73 year old Attending Physician Documentation: 73-year-old female, 45 pack-year smoking history, recent hospitalization [facility] 2022 for [place], required PCI, presenting to establish local pulmonary Medicine care [facility]. Patient describes active smoking status at half pack daily, current bronchodilator regimen includesrescue albuterol only used 2-3 times daily. Describes sedentary lifestyle, mostly resting in bed, using 2 L oxygen continuously, was prescribed since recent hospitalization in February 2023. Denies recent hospitalization or emergency room visits. Denies lower extremity edema. Describes clear [...] placed. Patient will be followed up in 2 months to reassess respiratory symptoms status, review response tooptimize bronchodilator therapy, review results of above- mentioned diagnostic workup and discuss further management plan. Assessment: Pulmonary emphysema, unspecified emphysema type (HCC) (Primary) Chronic hypoxic respiratory failure, on 2 L continuous oxygen Ambulatory dysfunction COPD Transferring from [facility] Active smoker COPD PFT 2017 CXR 01/2023 Recent Hospitalization [facility] 02/2023 for AMI. S/p PCI Continuous Home Oxygen at 2 LPM (since [facility]ization) Follow Up: Return in about 2 months (around 11/03/2023) for Clinic Visit. | For: Clinic Visit | Check-out note: COPD Transferring from [facility] Active smoker COPD PFT 2017 CXR 01/2023 Recent Hospitalization [facility] 02/2023 for AMI. S/p PCI Continuous Home Oxygen at 2 LPM (since [facility] Hospitalization) Plan: Resume Spiriva Add Advair HFA Albuterol Rescue inhaler PFT LDCT referral F/u 2 months Marbin Serrano MD Subjective CC: Chief Complaint Patient presents with NEW PATIENT Here new pulm. COPD. HPI: Nursing Notes: Zamzam Fontana LPN 09/03/23 1450 Signed Chief Complaint Patient presents with NEW PATIENT Here new pulm. COPD. Interm History/Respiratory Symptoms Cough: occ- no colored phlegm Hemoptysis: no Sinus Symptoms: drainage Hospitalizations: no ED Trips: no Triggers: pollen Nocturnal: sleeps with head elevated CPAP/BiPAP/O2: o2 2 L at night DME Supplier: [place] [employer] [facility] Flu Vaccine: 2020 Pneumovax: 2017 Prevnar: 2015 COVID 19: x2. Mmrc Cat Question 09/03/2023 2:42 PM EDT - Filed by Zamzam Fontana LPN When do you become breathless? (4) I am too breathless to leave the house or I am breathless when dressing How frequently do you cough? (2) Do you have phlegm in your chest? (3) Is your chest tight? (0) - My chest does not feel tight at all How breathless do you become when walking up a hill or steps? (5) - When I walk up a hill or one flight of stairs I am very breathless How limited are you doing activities at home? (3) How confident are you leaving home with your lung condition? (4) How soundly do you sleep? (4) How much energy do you have? (3) Total MMRC Score (range: 0 - 4) 4 Total CAT Score (range: 0 - 40) 24 Objective Filed Vitals: 09/03/23 1444 BP: 98/60 Pulse: 72 Resp: 16 Temp: 36.6 C (97.9 F) TempSrc: Tympanic SpO2: 94% Weight: 56.7 kg (125 lb) Height: 1.549 m (5' 1") Exam: [...] were discussed with the patient. HOME MEDICATIONS: Fluticasone-Salmeterol 115-21 MCG/ACT Inhalation Aerosol (Advair Hfa) Tiotropium [place] Monohydrate 18 MCG Inhalation Capsule (Spiriva HandiHaler) Ondansetron HCl 4 MG Oral Tablet (Zofran) traMADol HCl 50 MG Oral Tablet (Ultram) Losartan Potassium 100 MG Oral Tablet (Cozaar) Gabapentin 300 MG Oral Capsule (Neurontin) Levothyroxine Sodium 25 MCG Oral Tablet (Levoxyl) Omeprazole 20 MG Oral Capsule Delayed Release (PriLOSEC) Potassium Chloride Unique ER 10 MEQ Oral Tablet Extended Release traZODone HCl 50 MG Oral Tablet (Desyrel) Triamcinolone Acetonide 0.1 % External Ointment (Aristocort) Furosemide 40 MG Oral Tablet (Lasix) oxyBUTYnin Chloride ER 5 MG Oral Tablet Extended Release 24 Hour (Ditropan XL) Potassium Chloride ER 10 MEQ Oral Tablet Extended Release [place]-3 Fatty Acids (FISH OIL) 1000 MG Capsule CALCIUM + D 600-200 MG-UNIT PO TABS MULTIVITAMINS PO TABS Apixaban 5 MG Oral Tablet (Eliquis) Alendronate Sodium 70 MG Oral Tablet (Fosamax) Atorvastatin Calcium 40 MG Oral Tablet (Lipitor) Carvedilol 12.5 MG Oral Tablet (Coreg) Citalopram Hydrobromide 40 MG Oral Tablet (CeleXA) Clotrimazole 1 % External Cream (Lotrimin) Albuterol Sulfate HFA 108 (90 Base) MCG/ACT Inhalation Aerosol Solution Econazole Nitrate 1 % External Cream (Spectazole) Estradiol 0.1 MG/GM Vaginal Cream (Estrace) Magnesium Oxide 400 MG Oral Tablet Albuterol Sulfate HFA 108 (90 Base) MCG/ACT Inhalation Aerosol Solution TO GO ondansetron ODT (ZOFRAN ODT) 4 MG Orally Disintegrated Tablet ACETAMINOPHEN 325 MG PO TABS Albuterol Sulfate (Proventil) (2.5 MG/3ML) 0.083% inhalation [...] performed by Dk Hernandez MD [place] [facility] [place]ONOSCOPY, DIAGNOSTIC (RECTUM) 03/19 normal, repeat 5-10 years COLONOSCOPY, DIAGNOSTIC (RECTUM) 06/02/2017 normal, repeat 10 yrs/[facility] LESION ganglion cyst EXPLORATION OF ABDOMEN 07/20/2013 EXPLORATORY LAPAROTOMY performed by Tanya Hannon MD at [facility] FUSION OF MIDFOOT JOINT 08/08/2013 MIDTARSAL ARTHRODESIS SINGLE JOINT performed by Dk Hernandez MD at [facility] IMAGING, CARDIAC CATHETERIZATION 02/16 mild non [...] OS, Dr. Estrada LIGATE/CUT OVIDUCT(S) MISCELLANEOUS ORDER ([facility] ONLY) 12/13/2010 [facility] OD CONSENT SIGNED, DR. 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 Occupation: [employer] Employer: [employer] Comment: [employer] Tobacco Use Smoking status: Every Day Current packs/day: 0.50 Average packs/day: 0.6 packs/day for 70.0 years (45.0 ttl pk-yrs) Types: Cigarettes Start date: 09/02/1973 [...] Food in the Last Year: Never true Family History Problem Relation Name Age of [...] Bee Venom Anaphylaxis Doxycycline Intolerant, GI upset The following information was reviewed/discussed with the patient: Benefits & harms of screening Potential indications for follow-up testing, if/when necessary Risk of over-diagnosis, false positive findings, and radiation exposure Importance of cigarette smoking abstinence, if applicable Annual adherence to lung cancer screening Impact of comorbidities and ability or willingness to undergo diagnostic testing and/or treatment if something concerning is identified during screening. documented in this encounter Nursing Notes * Zamzam Fontana LPN - 09/03/2023 2:46 PM EDT Chief Complaint Patient presents with NEW PATIENT Here new pulm. COPD. Interm History/Respiratory Symptoms Cough: occ- no colored phlegm Hemoptysis: no Sinus Symptoms: drainage Hospitalizations: no ED Trips: no Triggers: pollen Nocturnal: sleeps with head elevated CPAP/BiPAP/O2: o2 2 L at night DME Supplier: [employer] Flu Vaccine: 2020 Pneumovax: 2017 Prevnar: 2015 COVID 19: x2. Mmrc Cat Question 09/03/2023 2:42 PM EDT - Filed by Zamzam Fontana LPN When do you become breathless? (4) I am too breathless to leave the house or I am breathless when dressing How frequently do you cough? (2) Do you have phlegm in your chest? (3) Is your chest tight? (0) - My chest does not feel tight at all How breathless do you become when walking up a hill or steps? (5) - When I walk up a hill or one flight of stairs I am very breathless How limited are you doing activities at home? (3) How confident are you leaving home with your lung condition? (4) How soundly do you sleep? (4) How much energy do you have? (3) Total MMRC Score (range: 0 - 4) 4 Total CAT Score (range: 0 - 40) 24 documented in this encounter Plan of Treatment Upcoming Encounters Date Type Department Care Team (Late st Contact Info) Description 10/06/2023 2:30 PM EDT PulmDiagnostic Pulmonary Function Lab, [facility] [address] [facility] [place] [address] [place], [address] [facility] [place] [address] 10/09/2023 12:00 PM EDT Office Visit Family [facility] [place] [address] [place] [id number] Ronald Cortes MD [address] [place] [facility] [place] [address] 11/03/2023 12:40 PM EDT Office Visit Pulmonary Medicine, [facility] [address] [facility] [place] [address] Marbin Serrano MD [address] [place] [address] 11/13/2023 1:00 PM EDT Office Visit Cardiology, [facility] [address] [facility] [place] [address] Pepe Lennon DO [address] [facility] [place] [address] Scheduled Orders Name Type Priority Associated Diagnoses Orde r Schedule LUNG CANCER SCREENING PROGRAM REFERRAL Medical Imaging Routine History of tobacco abuse Expected: 09/03/2023, Expires: 09/02/2025 DIFFUSION CAPACITY (DLCO) Procedures Routine Pulmonary emphysema, unspecified emphysema type (HCC) History of tobacco abuse Expected: 09/10/2023, Expires: 10/03/2024 LUNG VOLUMES (PLETHYSMOGRAPHY) Procedures Routine Pulmonary emphysema, unspecified emphysema type (HCC) History of tobacco abuse Expected: 09/10/2023, Expires: 10/03/2024 SPIROMETRY B/A BRONCHODILATOR Procedures Routine Pulmonary emphysema, unspecified emphysema type (HCC) History of tobacco abuse Expected: 09/10/2023, Expires: 10/03/2024 Scheduled Procedures Name Priority Associated Diagnoses Date/Ti [...] 10/31/1999 Depression Screening 01/23/2021 01/24/2020 COVID-19 Vaccine (3 - 2022- season) 2022 03/08/2021, 02/07/2021 Influenza Vaccine (FLU [...] D LEVEL ONCE IN A LIFETIME-USE SMARTSET# [id number] Completed 03/22/2015 Pneumococcal Vaccine: 65+ Years Completed [...] this encounter Medical Devices Implanted Type Area Steam Presser Device Identifier Shelf Expiration Date Model / Serial / Lot Chip Cancellous 5cc [id number] - [id number] Implanted:Qty: 1 on 08/08/2013 [place] [facility] [place] - Human Left: Foot MUSCULOSKELETAL TRANSPLANT FND 07/24/2015 [id number] / [id number] / Screw Nonlock 3.5 X 24 - [id number] Implanted:Qty: 1 on 08/08/2013 [place] [facility] [place]: Foot [employer] FOUNDER-011-3 5-24 / / Screw Locking 3.5 X 16 - [id number] Implanted:Qty: 2 on 08/08/2013 at [place] [facility] Left: Foot [employer] FOUNDER-021-3 5-16 / / Plate 6 Hole Beta Mxl-0026 - [id number] Implanted:Qty: 1 on 08/08/2013 [place] [facility] [place]: Foot [employer] MXL-0026 / / Screw Locking 3.5 X 20 - [id number] Implanted:Qty: 1 on 08/08/2013 at [place] [facility] Left: Foot [employer] FOUNDER-021-3 5-20 / / Screw Nonlock 3.5 X 16 - [id number] Implanted:Qty: 1 on 08/08/2013 [place] [facility] [place]: Foot [employer] FOUNDER-011-3 5-16 / / Screw Nonlock 3.5 X 18 - [id number] Implanted:Qty: 1 on 08/08/2013 [place] [facility] [place]: Foot [employer] FOUNDER-011-3 5-18 / / Screw Nonlock 3.5 X 14 - [id number] Implanted:Qty: 1 on 08/08/2013 [place] [facility] Left: Foot [employer] FOUNDER-011-3 5-14 / / 4.0 X 3.0 Short Max Torque Implanted:Qty: 1 on 08/08/2013 at [place] [facility] [place]: Foot [employer] MSD-010-4 0-030S / / 4.0 X 32.5 Short Max Torque Implanted:Qty: 1 on 08/08/2013 at [place] [facility] Left: Foot MSD-010-4 0-325S / / 4.0 X 28 Short Max Torque Implanted:Qty: 1 on 08/08/2013 [place] [facility] [place]: Foot [employer] MSD-010-4 0-028S / / 4.0 X 22 Short Max Torque Implanted:Qty: 1 on 08/08/2013 at [place] [facility] Left: Foot [employer] MSD-010-4 0-022S / / [place] Gold 4.0 - [id number] Implanted:Qty: 1 on 08/08/2013 at [place] [facility] Left: Foot [employer] CSS-500-4 0A / / Plate Lps Alpha 2 Slot - [id number] Implanted:Qty: 1 on 08/08/2013 at [place] [facility] Left: Foot [employer] MXL-002-2 A / / Screw Variable 3.5 X 12mm - [id number] Implanted:Qty: 1 on 08/08/2013 at [place] [facility] Left: Foot [employer] RAKESH-031-3 5-12 / / Screw Variable 3.5 X 18mm - [id number] Implanted:Qty: 1 on 08/08/2013 at [place] [facility] Left: Foot [employer] RAKESH-031-3 5-18 / / documented as of this encounter Visit Diagnoses Diagnosis Pulmonary emphysema, unspecified emphysema type (HCC)- Primary History of tobacco abuse Personal history of tobacco use, presenting hazards to health documented in this encounter Advance Directives * [...] Power of Attor elizabeth? No Care Teams Pony Ride Operator Relationship Specialty Start Date End Date Ronald Cortes MD [address] [place] [facility] [place] [address] PCP - General 06/10/02 documented as of this encounter
--- OUTSIDE RECORDS SUMMARY | 2023-12-06 10:43 | External Medical Summary | Summary of Care ---
Author Name Unknown Organization [facility] Address [address] [place] [address] Phone [phone] Care Team Providers Care Caretaker Resort Name Role Phone Ronald Cortes MD Primary Care Provider [phone] Reason for Visit * Reason Onset Date Comments Medication Refill 08/17/2023 Encounter Details Date Type Department Care Team (Late st Contact Info) Description 08/17/2023 Refill [facility] [address] [place] [address] Ronald Cortes MD [address] [place] [address] Allergies Active Allergy Reactions Criticality [...] pain, headache 1 Tab 0 07/27/2013 Active Gibbon-3 Fatty Acids (FISH OIL) 1000 MG Capsule [...] FOR NAUSEA 20 Tablet 3 08/07/2023 Active Hospital, Clinic, or Other Facility Administered [...] stent 07/01/2023 Coronary artery disease invo lving [place] coronary artery of [place] heart without angina pectoris 07/01/2023 Chronic obstructive [...] encounter Miscellaneous Notes * Telephone Encounter - Mandi Landeros PHARM Tech - 08/17/2023 3:08 PM EDT Pt calling to request multiple medications. Informed pt that RX is available at their pharmacy. Pt verbalized understanding and stated they will check with their pharmacy regarding this medication. Thank you, Mandi Landeros [employer] [facility] ([facility]formerly Telepharm[facility]) 08/17/2023,3:10 PM documented in this encounter Plan of Treatment Upcoming Encounters Date Type Department Care Team (Late st Contact Info) Description 10/09/2023 12:00 PM EDT Office Visit [facility] [address] [facility] [place] [address] Ronald Cortes MD [address] [place] [address] Scheduled Procedures Name Priority Associated Diagnoses [...] D LEVEL ONCE IN A LIFETIME-USE SMARTSET# [id number] Completed 03/22/2015 Pneumococcal Vaccine: 65+ Years Completed [...] this encounter Medical Devices Implanted Type Area Credit Processor Device Identifier Shelf Expiration Date Model / Serial / Lot Chip Cancellous 5cc [id number] - [id number] Implanted:Qty: 1 on 08/08/2013 [place] [facility] [place] - Human Left: Foot MUSCULOSKELETAL TRANSPLANT FND 07/24/2015 [id number] / [id number] / Screw Nonlock 3.5 X 24 - [id number] Implanted:Qty: 1 on 08/08/2013 [place] [facility] [place]: Foot ORTHOHELIX SURGICAL DESIGNS HORIZONTAL DRILL OPERATOR-011-3 5-24 / / Screw Locking 3.5 X 16 - [id number] Implanted:Qty: 2 on 08/08/2013 [place] [facility] [place]: Foot ORTHOHELIX SURGICAL DESIGNS HORIZONTAL DRILL OPERATOR-021-3 5-16 / / Plate 6 Hole Beta Mxl-0026 - [id number] Implanted:Qty: 1 on 08/08/2013 at [place] [facility] [place]: Foot ORTHOHELIX SURGICAL DESIGNS MXL-0026 / / Screw Locking 3.5 X 20 - [id number] Implanted:Qty: 1 on 08/08/2013 at [place] [facility] [place]: Foot ORTHOHELIX SURGICAL DESIGNS HORIZONTAL DRILL OPERATOR-021-3 5-20 / / Screw Nonlock 3.5 X 16 - [id number] Implanted:Qty: 1 on 08/08/2013 at [place] [facility] [place]: Foot ORTHOHELIX SURGICAL DESIGNS HORIZONTAL DRILL OPERATOR-011-3 5-16 / / Screw Nonlock 3.5 X 18 - [id number] Implanted:Qty: 1 on 08/08/2013 at [place] [facility] [place]: Foot ORTHOHELIX SURGICAL DESIGNS HORIZONTAL DRILL OPERATOR-011-3 5-18 / / Screw Nonlock 3.5 X 14 - [id number] Implanted:Qty: 1 on 08/08/2013 at [place] [facility] [place] Left: Foot ORTHOHELIX SURGICAL DESIGNS HORIZONTAL DRILL OPERATOR-011-3 5-14 / / 4.0 X 3.0 Short Max Torque Implanted:Qty: 1 on 08/08/2013 at [place] [facility] [place] Left: Foot ORTHOHELIX SURGICAL DESIGNS MSD-010-4 0-030S / / 4.0 X 32.5 Short Max Torque Implanted:Qty: 1 on 08/08/2013 at [place] [facility] [place] Left: Foot MSD-010-4 0-325S / / 4.0 X 28 Short Max Torque Implanted:Qty: 1 on 08/08/2013 at [place] [facility] [place] Left: Foot ORTHOHELIX SURGICAL DESIGNS MSD-010-4 0-028S / / 4.0 X 22 Short Max Torque Implanted:Qty: 1 on 08/08/2013 at [place] [facility] [place] Left: Foot ORTHOHELIX SURGICAL DESIGNS MSD-010-4 0-022S / / [place] Gold 4.0 - [id number] Implanted:Qty: 1 on 08/08/2013 at [place] [facility] [place] Left: Foot ORTHOHELIX SURGICAL DESIGNS CSS-500-4 0A / / Plate Lps Alpha 2 Slot - [id number] Implanted:Qty: 1 on 08/08/2013 at [place] [facility] [place] Left: Foot ORTHOHELIX SURGICAL DESIGNS MXL-002-2 A / / Screw Variable 3.5 X 12mm - [id number] Implanted:Qty: 1 on 08/08/2013 at [place] [facility] [place] Left: Foot ORTHOHELIX SURGICAL DESIGNS RAKESH-031-3 5-12 / / Screw Variable 3.5 X 18mm - [id number] Implanted:Qty: 1 on 08/08/2013 at [place] [facility] [place] Left: Foot ORTHOHELIX SURGICAL DESIGNS RAKESH-031-3 5-18 / / documented as of this encounter Advance Directives Latest Code Status on File Code Status Date Activated Date Inactivated Comments Full Code 08/08/2013 9:39 PM 08/09/2013 7:25 PM This order reflects the patients wishes and were consensually agreed upon. Question Answer Comments Discussion of Advance Directives occurred with: Patient Does the patient have a Living Will? No Does the patient have Health Care Power of Teaseler? No Code Status History Code Status Date [...] the patient have Health Care Power of Teaseler? No Care Teams Caretaker Resort Relationship Specialty Start Date End Date Ronald Cortes MD [address] [place] [address] PCP - General 06/10/02 documented as of this encounter
--- OUTSIDE RECORDS SUMMARY | 2023-12-06 10:43 | External Medical Summary | Summary of Care ---
Author Name Unknown Organization [facility] Address [address] [facility] [place] [address] Phone [phone] Care Team Providers Care Threading Machine Operator Name Role Phone Ronald Cortes MD Primary Care Provider Encounter Details Date Type Department Care Team (Late st Contact Info) Description 07/21/2023 Orders Only PATIENT PORTAL DO NOT DELETE THIS DEPT USED BY BO STACY [id number] Allergies Active Allergy Reactions Criticality Noted Date Comments Bee Venom Anaphylaxis High 02/27/2006 documented as of this encounter (statuses as of 07/21/2023) Medications Medication Sig Dispensed Refills Start Date End Date Status CALCIUM + D 600-200 MG-UNIT PO TABS 1 BID 0 03/13/2006 Active MULTIVITAMINS PO TABS daily 0 03/13/2006 Active ACETAMINOPHEN 325 MG PO TABSIndications:INTE RFACED RESULT,Pneumothorax 2 Tab Oral Every 6 hours as needed for fever, pain, headache 1 Tab 0 07/27/2013 Active Lisman-3 Fatty Acids (FISH OIL) 1000 MG Capsule [...] FOR WHEEZING 54 g 3 03/14/2021 Active Alendronate Sodium 70 MG Oral Tablet (Fosamax)Indications :Other osteoporosis without current pathological fracture,Dyslipidemi a, goal LDL below 100 TAKE 1 TABLET EVERY WEEK DIRECTED , SEE PACKAGE FOR ADDITIONAL INSTRUCTIONS 12 Tablet 07/31/2022 Active Atorvastatin Calcium 40 MG Oral Tablet (Lipitor) Take 1 Tablet by mouth in the morning. 90 Tablet 07/31/2022 Active Carvedilol 12.5 MG Oral Tablet (Coreg)Indications:D yslipidemia, goal LDL below 100,HTN, goal below 150/90 TAKE 1 AND 1/2 TABLETS TWICE DAILY 270 Tablet 07/30/2022 Active Additional Information Patient not taking.Reported on 07/01/2023 Citalopram Hydrobromide 40 MG Oral Tablet (CeleXA) Take 1 Tablet by mouth in the morning. 90 Tablet 07/30/2022 Active Losartan Potassium 100 MG Oral Tablet (Cozaar)Indications: HTN, goal below 150/90 Take 1 Tablet by mouth in the morning. 90 Tablet 07/31/2022 Active Omeprazole 20 MG Oral Capsule Delayed Release (PriLOSEC)Indication s:Gastroesophageal reflux disease, unspecified whether esophagitis present Take 1 Capsule by mouth in the morning. 1 hour before the first meal of the day.. 90 Capsule 07/30/2022 Active Ondansetron HCl 4 MG Oral Tablet (Zofran) TAKE 1 TABLET EVERY 8 HOURS NEEDED FOR NAUSEA 20 Tablet 07/31/2022 Active Potassium Chloride Unique ER 10 MEQ Oral Tablet Extended Release Take 1 Tablet by mouth in the morning and 1 Tablet before bedtime. 180 Tablet 07/31/2022 Active Magnesium Oxide 400 MG Oral TabletIndications:Hy pomagnesemia Take 1 Tablet by mouth in the morning. 90 Tablet 07/29/2022 Active Additional Information Patient not taking.Reported on 07/01/2023 Gabapentin 300 MG Oral Capsule (Neurontin)Indicatio ns:Post-traumatic arthrosis of multiple joints TAKE 1 CAPSULE THREE TIMES DAILY 270 Capsule 07/29/2022 Active traMADol HCl 50 MG Oral Tablet (Ultram)Indications: Generalized osteoarthritis of multiple sites Take 1 Tablet by mouth every 6 hours as needed for Pain, Moderate. TAKE 1 TABLET DAILY NEEDED FOR MODERATE PAIN 45 Tablet 0 10/17/2022 Active Additional Information Patient not taking.Reported on 07/01/2023 traZODone HCl 50 MG Oral Tablet (Desyrel)Indications :Sleep disorder TAKE 1 TO 2 TABLETS BEFORE BEDTIME. 180 Tablet 2 11/11/2022 Active Estradiol 0.1 MG/GM Vaginal Cream (Estrace) [...] until resolved 85 g 3 07/02/2023 Active Levothyroxine Sodium 25 MCG Oral Tablet (Levoxyl)Indications :Acquired hypothyroidism Take 1 Tablet by mouth in the morning. (at least 30 min prior to breakfast or other meds). 90 Tablet 3 07/19/2023 Active Hospital, Clinic, or Other Facility Administered Medication Ordered Dose Route Frequency Start Date End Date Status albuterol sulfate (PROVENTIL) (2.5 MG/3ML) 0.083% inhalation solution 2.5 mgIndications:Chronic nonspecific lung disease 2.5 mg NEBULIZER Q4H PRN 12/23/2017 Active documented as of this encounter (statuses as of 07/21/2023) Active Problems Problem Noted Date Diagnosed Date Acquired hypothyroidism 07/19/2023 History of coronary angioplasty with insertion o f stent 07/01/2023 Coronary artery disease invo lving [place] coronary artery of [place] heart without angina pectoris 07/01/2023 Chronic obstructive [...] as of this encounter (statuses as of 07/21/2023) Resolved Problems Problem Noted Date Diagnosed Date [...] as of this encounter (statuses as of 07/21/2023) Immunizations Name Administration Dates Next Due Pneumococcal [...] Description 10/09/2023 12:00 PM EDT Office Visit [facility] [address] [place] [address] Ronald Cortes MD [address] [place] [address] Scheduled Procedures Name Priority Associated Diagnoses [...] D LEVEL ONCE IN A LIFETIME-USE SMARTSET# 49594 Completed 03/22/2015 Pneumococcal Vaccine: 65+ Years Completed [...] this encounter Medical Devices Implanted Type Area Quality Worker Device Identifier Shelf Expiration Date Model / Serial / Lot Chip Cancellous 5cc [id number] - [id number] [place]:Qty: 1 [place]08[place] [facility] [place] Left: Foot MUSCULOSKELETAL TRANSPLANT FND 07/24/2015 [id number] / [id number] / Screw Nonlock 3.5 X 24 - [id number] Implanted:Qty: 1 on 08/08/2013 [place] [facility] [place]: Foot ORTHOHELIX SURGICAL DESIGNS SHOCK ABSORPTION FLOOR LAYER-011-3 5-24 / / Screw Locking 3.5 X 16 - [id number] Implanted:Qty: 2 on 08/08/2013 [place] [facility] [place] Foot ORTHOHELIX SURGICAL DESIGNS SHOCK ABSORPTION FLOOR LAYER-021-3 5-16 / / Plate 6 Hole Beta Mxl-0026 - [id number] Implanted:Qty: 1 on 08/08/2013 [place] [facility] [place]: Foot ORTHOHELIX SURGICAL DESIGNS MXL-0026 / / Screw Locking 3.5 X 20 - [id number] Implanted:Qty: 1 on 08/08/2013 [place] [facility] [place]: Foot ORTHOHELIX SURGICAL DESIGNS SHOCK ABSORPTION FLOOR LAYER-021-3 5-20 / / Screw Nonlock 3.5 X 16 - [id number] Implanted:Qty: 1 on 08/08/2013 [place] [facility] [place]: Foot ORTHOHELIX SURGICAL DESIGNS SHOCK ABSORPTION FLOOR LAYER-011-3 5-16 / / Screw Nonlock 3.5 X 18 - [id number] Implanted:Qty: 1 on 08/08/2013 [place] [facility] [place]: Foot ORTHOHELIX SURGICAL DESIGNS SHOCK ABSORPTION FLOOR LAYER-011-3 5-18 / / Screw Nonlock 3.5 X 14 - [id number] Implanted:Qty: 1 on 08/08/2013 [place] [facility] [place]: Foot ORTHOHELIX SURGICAL DESIGNS SHOCK ABSORPTION FLOOR LAYER-011-3 5-14 / / 4.0 X 3.0 Short Max Torque Implanted:Qty: 1 on 08/08/2013 [place] [facility] [place]: Foot ORTHOHELIX SURGICAL DESIGNS MSD-010-4 0-030S / / 4.0 X 32.5 Short Max Torque Implanted:Qty: 1 on 08/08/2013 [place] [facility] [place]: Foot MSD-010-4 0-325S / / 4.0 X 28 Short Max Torque Implanted:Qty: 1 on 08/08/2013 [place] [facility] [place]: Foot ORTHOHELIX SURGICAL DESIGNS MSD-010-4 0-028S / / 4.0 X 22 Short Max Torque Implanted:Qty: 1 on 08/08/2013 [place] [facility] [place]: Foot ORTHOHELIX SURGICAL DESIGNS MSD-010-4 0-022S / / [place] Gold 4.0 - [id number] Implanted:Qty: 1 on 08/08/2013 [place] [facility] [place]: Foot ORTHOHELIX SURGICAL DESIGNS CSS-500-4 0A / / Plate Lps Alpha 2 Slot - [id number] Implanted:Qty: 1 on 08/08/2013 [place] [facility] [place]: Foot ORTHOHELIX SURGICAL DESIGNS MXL-002-2 A / / Screw Variable 3.5 X 12mm - [id number] Implanted:Qty: 1 on 08/08/2013 [place] [facility] [place]: Foot ORTHOHELIX SURGICAL DESIGNS RAKESH-031-3 5-12 / / Screw Variable 3.5 X 18mm - [id number] Implanted:Qty: 1 on 08/08/2013 [place] [facility] [place]: Foot ORTHOHELIX SURGICAL [...] the patient have Health Care Power of Fiberglass Container Winding Operator? No Code Status History Code Status [...] the patient have Health Care Power of Fiberglass Container Winding Operator? No Care Teams Threading Machine Operator Relationship Specialty Start Date End Date Ronald Cortes MD [address] [facility] [place] [address] PCP - General 06/10/02 documented as of this encounter
--- OUTSIDE RECORDS SUMMARY | 2023-12-06 10:43 | External Medical Summary | Summary of Care ---
Author Name Unknown Organization [facility] Address [address] [place] [address] Phone [phone] Care Team Providers Care Leakage Tester Name Role Phone Estevan Cortes MD Primary Care Provider [phone] Reason for Visit * Reason Onset Date Comments Medication Refill 08/05/2023 Encounter Details Date Type Department Care Team (Late st Contact Info) Description 08/05/2023 Refill [facility] [id number] [place] [address] Estevan Cortes MD [address] [place] [address] HTN, goal below 150/90; Generalized osteoarthritis of multiple sites Allergies Active Allergy Reactions Criticality Noted Date Comments Bee Venom Anaphylaxis High 02/27/2006 Doxycycline Low 08/04/2023 Intolerant, GI upset documented as of this encounter (statuses as of 08/07/2023) Medications Medication Sig Dispensed Refills Start Date End Date Status CALCIUM + D 600-200 MG-UNIT PO TABS 1 BID 0 6 Active MULTIVITAMINS PO TABS daily 0 6 Active ACETAMINOPHEN 325 MG PO TABSIndications:INT ERFACED RESULT,Pneumothorax 2 Tab Oral Every 6 hours as needed for fever, pain, headache 1 Tab 0 4 Active [place]-3 Fatty Acids (FISH OIL) 1000 MG Capsule [...] 85 g 3 4 Active Polymyxin B-Trimethoprim 51816-6.1 UNIT/ML-% Ophthalmic SolutionIndications :Acute bacterial conjunctivitis of right eye Instill 2 drops into right eye four times daily for 7 days 10 mL 0 4 08/11/19 24 Active Atorvastatin Calcium 40 MG Oral Tablet (Lipitor) Take 1 Tablet by mouth in the morning. 90 Tablet 2 4 Active Carvedilol 12.5 MG Oral Tablet (Coreg)Indications: Dyslipidemia, goal LDL below 100,HTN, goal below 150/90 TAKE 1 AND 1/2 TABLETS TWICE DAILY 270 Tablet 0 4 Active Citalopram Hydrobromide 40 MG Oral Tablet (CeleXA) Take 1 Tablet by mouth in the morning. 90 Tablet 0 4 Active Gabapentin 300 MG Oral Capsule [...] needed for Pain, Moderate. 45 Tablet 0 4 Active Ondansetron HCl 4 MG Oral Tablet (Zofran) TAKE 1 TABLET EVERY 8 HOURS NEEDED FOR NAUSEA 20 Tablet 3 4 Active Losartan Potassium 100 MG Oral Tablet (Cozaar)Indications :HTN, goal below 150/90 Take 1 Tablet by mouth in the morning. 90 Tablet 3 3 08/05/19 24 Discontinu ed(Refill) Ondansetron HCl 4 MG Oral Tablet (Zofran) TAKE 1 TABLET EVERY 8 HOURS NEEDED FOR NAUSEA 20 Tablet 3 3 08/05/19 24 Discontinu ed(Refill) traMADol HCl 50 MG Oral Tablet (Ultram)Indications :Generalized osteoarthritis of multiple sites Take 1 Tablet by mouth every 6 hours as needed for Pain, Moderate. TAKE 1 TABLET DAILY NEEDED FOR MODERATE PAIN 45 Tablet 0 3 08/05/19 24 Discontinu ed(Refill) Hospital, Clinic, or Other Facility Administered Medication Ordered Dose Route Frequency Start Date End Date Status albuterol sulfate (PROVENTIL) (2.5 MG/3ML) 0.083% inhalation solution 2.5 mgIndications:Chronic nonspecific lung disease 2.5 mg NEBULIZER Q4H PRN 12/23/2017 Active documented as of this encounter (statuses as of 08/07/2023) Active Problems Problem Noted Date Diagnosed Date Acquired hypothyroidism 07/19/2023 History of coronary angioplasty with insertion o f stent 07/01/2023 Coronary artery disease invo lving [place] coronary artery of [place] heart without angina pectoris 07/01/2023 Chronic obstructive [...] as of this encounter (statuses as of 08/07/2023) Resolved Problems Problem Noted Date Diagnosed Date [...] as of this encounter (statuses as of 08/07/2023) Immunizations Name Administration Dates Next Due Pneumococcal [...] encounter Miscellaneous Notes * Telephone Encounter - Estevan Cortes MD - 08/07/2023 7:40 AM EDTSigned Prescriptions: Disp Refills Losartan Potassium 100 MG Oral Tablet (Coz*90 Tab*3 Sig: Take 1 Tablet by mouth in the morning. Authorizing Provider: ESTEVAN CORTES Ordering User: MAGUI SAAB traMADol HCl 50 MG Oral Tablet (Ultram) 45 Tab*0 Sig: Take 1 Tablet by mouth every 6 hours as needed for Pain, Moderate. Authorizing Provider: ESTEVAN CORTES Ondansetron HCl 4 MG Oral Tablet (Zofran) 20 Tab*3 Sig: TAKE 1 TABLET EVERY 8 HOURS NEEDED FOR NAUSEA Authorizing Provider: ESTEVAN CORTES * Telephone Encounter - Magui Saab [facility] - 08/06/2023 3:52 PM EDT Pending Prescriptions: Disp Refills traMADol HCl 50 MG Oral Tablet (Ultram) 45 Tab*0 Sig: Take 1 Tablet by mouth every 6 hours as needed for Pain, Moderate. Ondansetron HCl 4 MG Oral Tablet (Zofran) 20 Tab*3 Sig: TAKE 1 TABLET EVERY 8 HOURS NEEDED FOR NAUSEA Signed Prescriptions: Disp Refills Losartan Potassium 100 MG Oral Table t (Coz*90 Tab*3 Sig: Take 1 Tablet by mouth in the morning. Authorizing Provider: ESTEVAN CORTES Ordering User: MAGUI SAAB * Telephone Encounter - Magui Saab [facility] - 08/06/2023 3:50 PM EDT I have reviewed the patients controlled substance dispensing history in the Prescription Drug Monitoring Program in compliance with the [facility] regulations before prescribing a controlled substance. PDMP checked on 08/06/2023. Pending Prescriptions: Disp Refills traMADol HCl 50 MG Oral Tablet (Ultram) 45 Tab*0 Sig: Take 1 Tablet by mouth every 6 hours as needed for Pain, Moderate. Ondansetron HCl 4 MG Oral Tablet (Zofran) 20 Tab*3 Sig: TAKE 1 TABLET EVERY 8 HOURS NEEDED FOR NAUSEA Signed Prescriptions: Disp Refills Losartan Potassium 100 MG Oral Tablet (Coz*90 Tab*3 Sig: Take 1 Tablet by mouth in the morning. Authorizing Provider: ESTEVAN CORTES Ordering User: MAGUI SAAB Last Visit: 07/01/2023 (in office), Visit date not found (telemedicine) Next Visit: 10/09/2023 Date medication was last filled: Not in PDMP Medication is due for refill Pharmacy: [id number] Is this request for a controlled substance? Yes and Urine Drug Screen was completed Toxicology results: Results for orders placed or performed in visit on 10/17/22 TOXICOLOGY, URINE SCREEN W/ CONFIRMATION Result Value Amphetamines Screen, U Positive (A) Benzodiazepines Screen, U Negative Cannabinoids Screen, U Positive (A) Cocaine Metabolite Screen, U Negative Fentanyl Screen, U Negative Hydrocodone Screen, U Negative Methadone Metabolite Screen, U Negative Morphine/Codeine Screen, U Negative Oxycodone Screen, U Negative Narrative Cutoff Concentrations: Drug Level Amphetamines 500 ng/mL Benzodiazepines 100 ng/mL Cannabinoids 50 ng/mL Cocaine Metabolite 150 ng/mL Fentanyl 1 ng/mL Hydrocodone / Hydromorphone 300 ng/mL Methadone Metabolite 100 ng/mL Morphine / Codeine 300 ng/mL Oxycodone / Oxymorphone 100 ng/mL Screening results are presumptive and can only be used for medical purposes. Positive screening results are reflexed to confirmatory testing. Please approve if appropriate. Thank You Magui Saab PharmD Clinical Pharmacist [facility] ([facility]) (formerly Telepharmacy) [phone] / [phone] 08/06/2023, 3:50 PM * Telephone Encounter - Mavis Patel PHARM Tech - 08/05/2023 3:22 PM EDT Did you pend patient's preferred pharmacy and medication before forwarding?yes Pharmacy: [facility][id number] [id number] [place] [address] Pending Prescriptions: Disp Refills Losartan Potassium 100 MG Oral Tablet (Co*90 Tab*3 Sig: Take 1 Tablet by mouth in the morning. traMADol HCl 50 MG Oral Tablet (Ultram) 45 Tab*0 Sig: Take 1 Tablet by mouth every 6 hours as needed for Pain, Moderate. TAKE 1 TABLET DAILY NEEDED FOR MODERATE PAIN Ondansetron HCl 4 MG Oral Tablet (Zofran) 20 Tab*3 Sig: TAKE 1 TABLET EVERY 8 HOURS NEEDED FOR NAUSEA Last Visit: 07/01/2023 (in office), Visit date not found (telemedicine) Next Visit: 10/09/2023 If no future appointments scheduled, and last appointment is greater than a year ago, please schedule patient for a follow-up appointment Last date the medication was ordered: 10-17-22,07-31-22 Is this request for a controlled substance?Yes, What was the last refill date 10-17-22 w/ quantity 45 and dosage 50 mg and Urine Drug Screen was completed Urine Drug Screen: Results for orders placed or performed in visit on 10/17/22 TOXICOLOGY, URINE SCREEN W/ CONFIRMATION Result Value Amphetamines Screen, U Positive (A) Benzodiazepines Screen, U Negative Cannabinoids Screen, U Positive (A) Cocaine Metabolite Screen, U Negative Fentanyl Screen, U Negative Hydrocodone Screen, U Negative Methadone Metabolite Screen, U Negative Morphine/Codeine Screen, U Negative Oxycodone Screen, U Negative Narrative Cutoff Concentrations: Drug Level Amphetamines 500 ng/mL Benzodiazepines 100 ng/mL Cannabinoids 50 ng/mL Cocaine Metabolite 150 ng/mL Fentanyl 1 ng/mL Hydrocodone / Hydromorphone 300 ng/mL Methadone Metabolite 100 ng/mL Morphine / Codeine 300 ng/mL Oxycodone / Oxymorphone 100 ng/mL Screening results are presumptive and can only be used for medical purposes. Positive screening results are reflexed to confirmatory testing. Patient Phone Numbers Labs: Lab Results Component Value Date/Time CREAT 0.8 07/01/2023 09:31 AM CREAT 0.76 03/22/2023 12:00 AM CREAT 0.9 01/24/2020 10:21 AM POTASSIUM 4.7 07/01/2023 09:31 AM POTASSIUM 4.3 03/22/2023 12:00 AM POTASSIUM 4.7 01/24/2020 10:21 AM TSH 9.87 (H) 07/01/2023 09:31 AM TSH 2.77 08/08/2013 08:01 PM LDLCALC 104 08/15/2022 12:41 PM LDLCALC 82 01/24/2020 10:21 AM LDLDIRECT NOT APPLICABLE 01/24/2020 10:21 AM LDLDIRECT 155 (H) 05/04/2008 12:44 PM ALT 15 08/15/2022 12:41 PM ALT 13 01/24/2020 10:21 AM documented in this encounter Plan of Treatment Upcoming Encounters Date Type Department Care Team (Late st Contact Info) Description 10/09/2023 12:00 PM EDT Office Visit [facility] [address] [place] [address] Estevan Cortes MD [address] [place] [address] Scheduled Procedures Name Priority Associated [...] 03/09/2023, Additional history exists TSH 06/30/2024 07/01/2023, 04/11/2013, 05/26/2001 Albumin/Creatinine Ratio 08/15/2025 08/15/2022 Colonoscopy 06/02/2027 06/02/2017, 04/12/2007 Colorectal Cancer Screening 06/02/2027 DTaP,Tdap,and Td Vaccines (3 - Td or Tdap) 09/13/2031 09/12/2021, 06/10/2010, 07/16/1999 VITAMIN D LEVEL ONCE IN A LIFETIME-USE SMARTSET# [id number] Completed 03/22/2015 Pneumococcal Vaccine: 65+ Years Completed [...] this encounter Medical Devices Implanted Type Area Orthopedic Cast Specialist Device Identifier Shelf Expiration Date Model / Serial / Lot Chip Cancellous 5cc [id number] - [id number] Implanted:Qty: 1 on 08/08/2013 at [facility] Tissue - Human Left: Foot MUSCULOSKELETAL TRANSPLANT FND 07/24/2015 [id number] / [id number] / Screw Nonlock 3.5 X 24 - [id number] Implanted:Qty: 1 on 08/08/2013 at OR [facility] Left: Foot ORTHOHELIX SURGICAL DESIGNS TIP TESTER-011-3 5-24 / / Screw Locking 3.5 X 16 - [id number] Implanted:Qty: 2 on 08/08/2013 at OR [facility] Left: Foot ORTHOHELIX SURGICAL DESIGNS TIP TESTER-021-3 5-16 / / Plate 6 Hole Beta Mxl-0026 - [id number] Implanted:Qty: 1 on 08/08/2013 at OR [facility] Left: Foot ORTHOHELIX SURGICAL DESIGNS MXL-0026 / / Screw Locking 3.5 X 20 - [id number] Implanted:Qty: 1 on 08/08/2013 at OR [facility] Left: Foot ORTHOHELIX SURGICAL DESIGNS TIP TESTER-021-3 5-20 / / Screw Nonlock 3.5 X 16 - [id number] Implanted:Qty: 1 on 08/08/2013 at OR [facility] Left: Foot ORTHOHELIX SURGICAL DESIGNS TIP TESTER-011-3 5-16 / / Screw Nonlock 3.5 X 18 - [id number] Implanted:Qty: 1 on 08/08/2013 at [facility] Left: Foot ORTHOHELIX SURGICAL DESIGNS TIP TESTER-011-3 5-18 / / Screw Nonlock 3.5 X 14 - [id number] Implanted:Qty: 1 on 08/08/2013 at OR [facility] Left: Foot ORTHOHELIX SURGICAL DESIGNS TIP TESTER-011-3 5-14 / / 4.0 X 3.0 Short Max Torque Implanted:Qty: 1 on 08/08/2013 at OR [facility] Left: Foot ORTHOHELIX SURGICAL DESIGNS MSD-010-4 0-030S / / 4.0 X 32.5 Short Max Torque Implanted:Qty: 1 on 08/08/2013 at OR [facility] Left: Foot MSD-010-4 0-325S / / 4.0 X 28 Short Max Torque Implanted:Qty: 1 on 08/08/2013 at OR [facility] Left: Foot ORTHOHELIX SURGICAL DESIGNS MSD-010-4 0-028S / / 4.0 X 22 Short Max Torque Implanted:Qty: 1 on 08/08/2013 at OR [facility] Left: Foot ORTHOHELIX SURGICAL DESIGNS MSD-010-4 0-022S / / [place] Gold 4.0 - [id number] Implanted:Qty: 1 on 08/08/2013 at OR [facility] Left: Foot ORTHOHELIX SURGICAL DESIGNS CSS-500-4 0A / / Plate Lps Alpha 2 Slot - [id number] Implanted:Qty: 1 on 08/08/2013 at OR [facility] Left: Foot ORTHOHELIX SURGICAL DESIGNS MXL-002-2 A / / Screw Variable 3.5 X 12mm - [id number] Implanted:Qty: 1 on 08/08/2013 at [facility] Left: Foot ORTHOHELIX SURGICAL DESIGNS RAKESH-031-3 5-12 / / Screw Variable 3.5 X 18mm - [id number] Implanted:Qty: 1 on 08/08/2013 at [facility] Left: Foot ORTHOHELIX SURGICAL DESIGNS RAKESH-031-3 5-18 / / documented as of this encounter Visit Diagnoses Diagnosis HTN, goal below 150/90 Generalized osteoarthritis of multiple sites Generalized osteoarthrosis, involving multiple sites documented in this encounter Advance Directives Latest Code Status on File Code Status Date Activated Date Inactivated Comments Full Code 08/08/2013 9:39 PM 08/09/2013 7:25 PM This order reflects the patients wishes and were consensually agreed upon. Question Answer Comments Discussion of Advance Directives occurred with: Patient Does the patient have a Living Will? No Does the patient have Health Care Power of Bottle Dealer? No Code Status History Code Status Date [...] the patient have Health Care Power of Bottle Dealer? No Care Teams Leakage Tester Relationship Specialty Start Date End Date Estevan Cortes MD [address] [place] [address] PCP - General 06/10/02 documented as of this encounter
--- OUTSIDE RECORDS SUMMARY | 2023-12-06 10:43 | External Medical Summary | Summary of Care ---
Author Name Unknown Organization [facility] Address [address] [place] [address] Phone [phone] Care Team Providers Care Neuro Ophthalmologist Name Role Phone Ronald Cortes MD Primary Care Provider [phone] Reason for Visit * Reason Onset Date Comments Pre Cert/Prior Auth 07/01/2023 Econazole Ni trate 1% cream Encounter Details Date Type Department Care Team (Late st Contact Info) Description 07/01/2023 Telephone [facility] [address] [place] [address] Ronald Cortes MD [address] [place] [address] Pre Cert/Prior Auth (Econazole Nitrate 1% ... Allergies Active Allergy Reactions Criticality Noted Date Comments Bee Venom Anaphylaxis High 02/27/2006 documented as of this encounter (statuses as of 07/14/2023) Medications Medication Sig Dispensed Refills Start Date End Date Status CALCIUM + D 600-200 MG-UNIT PO TABS 1 BID 0 03/13/2006 Active MULTIVITAMINS PO TABS daily 0 03/13/2006 Active ACETAMINOPHEN 325 MG PO TABSIndications:INT ERFACED RESULT,Pneumothorax 2 Tab Oral Every 6 hours as needed for fever, pain, headache 1 Tab 0 07/27/2013 Active [place]-3 Fatty Acids (FISH OIL) 1000 MG Capsule [...] PACKAGE FOR ADDITIONAL INSTRUCTIONS 12 Tablet 3 07/31/2022 Active Atorvastatin Calcium 40 MG Oral Tablet (Lipitor) Take 1 Tablet by mouth in the morning. 90 Tablet 3 07/31/2022 Active Carvedilol 12.5 MG Oral Tablet (Coreg)Indications: Dyslipidemia, goal LDL below 100,HTN, goal below 150/90 TAKE 1 AND 1/2 TABLETS TWICE DAILY 270 Tablet 1 07/30/2022 Active Additional Information Patient not taking.Reported on 07/01/2023 Citalopram Hydrobromide 40 MG Oral Tablet (CeleXA) Take 1 Tablet by mouth in the morning. 90 Tablet 1 07/30/2022 Active Losartan Potassium 100 MG Oral Tablet (Cozaar)Indications :HTN, goal below 150/90 Take 1 Tablet by mouth in the morning. 90 Tablet 3 07/31/2022 Active Omeprazole 20 MG Oral Capsule Delayed Release (PriLOSEC)Indicatio ns:Gastroesophageal reflux disease, unspecified whether esophagitis present Take 1 Capsule by mouth in the morning. 1 hour before the first meal of the day.. 90 Capsule 07/30/2022 Active Ondansetron HCl 4 MG Oral Tablet (Zofran) TAKE 1 TABLET EVERY 8 HOURS NEEDED FOR NAUSEA 20 Tablet 3 07/31/2022 Active Potassium Chloride Unique ER 10 MEQ Oral Tablet Extended Release Take 1 Tablet by mouth in the morning and 1 Tablet before bedtime. 180 Tablet 3 07/31/2022 Active Magnesium Oxide 400 MG Oral TabletIndications:H ypomagnesemia Take 1 Tablet by mouth in the morning. 90 Tablet 3 07/29/2022 Active Additional Information Patient not taking.Reported on 07/01/2023 Gabapentin 300 MG Oral Capsule (Neurontin)Indicati ons:Post-traumatic arthrosis of multiple joints TAKE 1 CAPSULE THREE TIMES DAILY 270 Capsule 3 07/29/2022 Active traMADol HCl 50 MG Oral Tablet (Ultram)Indications :Generalized osteoarthritis of multiple sites Take 1 Tablet by mouth every 6 hours as needed for Pain, Moderate. TAKE 1 TABLET DAILY NEEDED FOR MODERATE PAIN 45 Tablet 0 10/17/2022 Active Additional Information Patient not taking.Reported on 07/01/2023 traZODone HCl 50 MG Oral Tablet (Desyrel)Indication [...] 07/02/2023 Active Clotrimazole 1 % External Cream (Lotrimin)Indicatio ns:Candidal intertrigo Apply topically to affected area 2 times a day. Apply to area under breast twice daily until resolved 85 g 3 07/02/2023 Active Erythromycin 5 MG/GM Ophthalmic OintmentIndications :Acute bacterial conjunctivitis of both eyes Instill into both eyes 4 times a day for 10 days. Apply to affected eye(s) until redness and discharge resolved. 3.5 g 1 07/01/2023 4 Doxycycline Hyclate 100 MG Oral CapsuleIndications: Acute bacterial conjunctivitis of both eyes,Cellulitis of chest wall Take 1 Capsule by mouth in the morning and 1 Capsule before bedtime. Do all this for 10 days. Until gone.. 20 Capsule 0 07/01/2023 4 Additional Information Patient not taking.Reported on 07/01/2023 Hospital, Clinic, or Other Facility Administered Medication Ordered Dose Route Frequency Start Date End Date Status albuterol sulfate (PROVENTIL) (2.5 MG/3ML) 0.083% inhalation solution 2.5 mgIndications:Chronic nonspecific lung disease 2.5 mg NEBULIZER Q4H PRN 12/23/2017 Active documented as of this encounter (statuses as of 07/14/2023) Active Problems Problem Noted Date Diagnosed Date History of coronary angioplasty with insertion o f stent 07/01/2023 Coronary artery disease invo lving [place] coronary artery of [place] heart without angina pectoris 07/01/2023 Chronic obstructive [...] as of this encounter (statuses as of 07/14/2023) Resolved Problems Problem Noted Date Diagnosed Date [...] as of this encounter (statuses as of 07/14/2023) Immunizations Name Administration Dates Next Due Influenza, [...] encounter Miscellaneous Notes * Telephone Encounter - Mariam Vaughan LPN - 07/14/2023 5:50 PM EDT Letter sent * Telephone Encounter - Cat Angel LPN - 07/06/2023 11:51 AM EDT Left generic message on answering machine asking patient to return our call. * Telephone Encounter - Ronald Cortes MD - 07/02/2023 9:06 AM EDT Notify Pt: I have prescribed 2 different creams to use on the rash under breast given the Econazolewas denied by insurance: Clotrimazole 1% cream twice daily- alternate with triamcinalone 1% Oint twice daily and over the counter Desitin Cream once or twice daily * Telephone Encounter - Mariam Vaughan LPN - 07/02/2023 7:52 AM EDT Prior authorization for Econazole Nitrate 1% cream has been denied. Did not meet criteria under Medicare Part D- has to have tried within the past 12 months or cannot use 2 of the following: clotrimazole cream, ciclopirox 0.77% cream/gel/suspension, or ketoconazole cream, * Telephone Encounter - Natalia Marr LPN - 07/01/2023 2:15 PM EDT Econazole Nitrate 1% cream started a prior auth on [facility] the Gonzalez# [id number] documented in this encounter Plan of Treatment Upcoming Encounters Date Type Department Care Team (Late st Contact Info) Description 10/09/2023 12:00 PM EDT Office Visit [facility] [address] [place] [address] Ronald Cortes MD [address] [place] [address] Scheduled Procedures Name Priority Associated [...] 06/30/2024 07/01/2023, 03/13, 03/09/2023, Additional history exists Albumin/Creatinine Ratio 08/15/2025 08/15/2022 Colonoscopy 06/02/2027 06/02/2017, 04/12/2007 Colorectal Cancer Screening 06/02/2027 DTaP,Tdap,and Td Vaccines (3 - Td or Tdap) 09/13/2031 09/12/2021, 06/10/2010, 07/16/1999 VITAMIN D LEVEL ONCE IN A LIFETIME-USE SMARTSET# [id number] Completed 03/22/2015 Pneumococcal Vaccine: 65+ Years Completed [...] this encounter Medical Devices Implanted Type Area Kennel Manager Dog Track Device Identifier Shelf Expiration Date Model / Serial / Lot Chip Cancellous 5cc [id number] - [id number] Implanted:Qty: 1 on 08/08/2013 at [place] [facility] Tissue - Human Left: Foot MUSCULOSKELETAL TRANSPLANT FND 07/24/2015 [id number] / [id number] / Screw Nonlock 3.5 X 24 - [id number] Implanted:Qty: 1 on 08/08/2013 at [place] [facility] Left: Foot ORTHOHELIX SURGICAL DESIGNS DIGITAL FORENSICS EXAMINER-011-3 5-24 / / Screw Locking 3.5 X 16 - [id number] Implanted:Qty: 2 on 08/08/2013 at [place] [facility] Left: Foot ORTHOHELIX SURGICAL DESIGNS DIGITAL FORENSICS EXAMINER-021-3 5-16 / / Plate 6 Hole Beta Mxl-0026 - [id number] Implanted:Qty: 1 on 08/08/2013 at [place] [facility] Left: Foot ORTHOHELIX SURGICAL DESIGNS MXL-0026 / / Screw Locking 3.5 X 20 - [id number] Implanted:Qty: 1 on 08/08/2013 at [place] [facility] Left: Foot ORTHOHELIX SURGICAL DESIGNS DIGITAL FORENSICS EXAMINER-021-3 5-20 / / Screw Nonlock 3.5 X 16 - [id number] Implanted:Qty: 1 on 08/08/2013 at [place] [facility] Left: Foot ORTHOHELIX SURGICAL DESIGNS DIGITAL FORENSICS EXAMINER-011-3 5-16 / / Screw Nonlock 3.5 X 18 - [id number] Implanted:Qty: 1 on 08/08/2013 at [place] [facility] Left: Foot ORTHOHELIX SURGICAL DESIGNS DIGITAL FORENSICS EXAMINER-011-3 5-18 / / Screw Nonlock 3.5 X 14 - [id number] Implanted:Qty: 1 on 08/08/2013 at [place] [facility] Left: Foot ORTHOHELIX SURGICAL DESIGNS DIGITAL FORENSICS EXAMINER-011-3 5-14 / / 4.0 X 3.0 Short Max Torque Implanted:Qty: 1 on 08/08/2013 at [place] [facility] Left: Foot ORTHOHELIX SURGICAL DESIGNS MSD-010-4 0-030S / / 4.0 X 32.5 Short Max Torque Implanted:Qty: 1 on 08/08/2013 at [place] [facility] Left: Foot MSD-010-4 0-325S / / 4.0 X 28 Short Max Torque Implanted:Qty: 1 on 08/08/2013 at [place] [facility] Left: Foot ORTHOHELIX SURGICAL DESIGNS MSD-010-4 0-028S / / 4.0 X 22 Short Max Torque Implanted:Qty: 1 on 08/08/2013 at [place] [facility] Left: Foot ORTHOHELIX SURGICAL DESIGNS MSD-010-4 0-022S / / [place]he Flat Gold 4.0 - [id number] Implanted:Qty: 1 on 08/08/2013 at [place] [facility] Left: Foot ORTHOHELIX SURGICAL DESIGNS CSS-500-4 0A / / Plate Lps Alpha 2 Slot - [id number] Implanted:Qty: 1 on 08/08/2013 at [place] [facility] Left: Foot ORTHOHELIX SURGICAL DESIGNS MXL-002-2 A / / Screw Variable 3.5 X 12mm - [id number] Implanted:Qty: 1 on 08/08/2013 at [place] [facility] Left: Foot ORTHOHELIX SURGICAL DESIGNS RAKESH-031-3 5-12 / / Screw Variable 3.5 X 18mm - [id number] Implanted:Qty: 1 on 08/08/2013 at [place] [facility] Left: Foot ORTHOHELIX SURGICAL DESIGNS RAKESH-031-3 5-18 / / documented as of this encounter Visit Diagnoses Diagnosis Candidal intertrigo- Primary Candidiasis of skin and nails documented in this encounter Advance Directives Latest Code Status on File Code Status Date Activated Date Inactivated Comments Full Code 08/08/2013 9:39 PM 08/09/2013 7:25 PM This order reflects the patients wishes and were consensually agreed upon. Question Answer Comments Discussion of Advance Directives occurred with: Patient Does the patient have a Living Will? No Does the patient have Health Care Power of Value Stream Leader? No Code Status History Code Status Date [...] the patient have Health Care Power of Value Stream Leader? No Care Teams Neuro Ophthalmologist Relationship Specialty Start Date End Date Ronald Cortes MD [address] [place] [address] PCP - General 06/10/02 documented as of this encounter
--- OUTSIDE RECORDS SUMMARY | 2023-12-06 10:43 | External Medical Summary | Summary of Care ---
Author Name Unknown Organization [facility] Address [address] [place] [address] Phone [phone] Care Team Providers Care Swimming Coach Or Instructor Name Role Phone Ronald Cortes MD Primary Care Provider [phone] Encounter Details Date Type Department Care Team (Late st Contact Info) Description 07/06/2023 Telephone [facility] [address] [place] [address] Ronald Cortes MD [address] [place] [address] Allergies Active Allergy Reactions Criticality Noted Date Comments Bee Venom Anaphylaxis High 02/27/2006 documented as of this encounter (statuses as of 07/06/2023) Medications Medication Sig Dispensed Refills Start Date End Date Status CALCIUM + D 600-200 MG-UNIT PO TABS 1 BID 0 03/13/2006 Active MULTIVITAMINS PO TABS daily 0 03/13/2006 Active ACETAMINOPHEN 325 MG PO TABSIndications:INTE RFACED RESULT,Pneumothorax 2 Tab Oral Every 6 hours as needed for fever, pain, headache 1 Tab 0 07/27/2013 Active Sulphur-3 Fatty Acids (FISH OIL) 1000 MG Capsule [...] meal of the day.. 90 Capsule 3 07/30/2022 Active Ondansetron HCl 4 MG Oral [...] Additional Information Patient not taking.Reported on 07/01/2023 Erythromycin 5 MG/GM Ophthalmic OintmentIndications: Acute bacterial conjunctivitis of both eyes Instill into both eyes 4 times a day for 10 days. Apply to affected eye(s) until redness and discharge resolved. 3.5 g 1 07/01/2023 4 Active Doxycycline Hyclate 100 MG Oral CapsuleIndications:A cute bacterial conjunctivitis of both eyes,Cellulitis of chest wall Take 1 Capsule by mouth in the morning and 1 Capsule before bedtime. Do all this for 10 days. Until gone.. 20 Capsule 0 07/01/2023 4 Active Additional Information Patient not taking.Reported [...] until resolved 85 g 3 07/02/2023 Active Hospital, Clinic, or Other Facility Administered Medication Ordered Dose Route Frequency Start Date End Date Status albuterol sulfate (PROVENTIL) (2.5 MG/3ML) 0.083% inhalation solution 2.5 mgIndications:Chronic nonspecific lung disease 2.5 mg NEBULIZER Q4H PRN 12/23/2017 Active documented as of this encounter (statuses as of 07/06/2023) Active Problems Problem Noted Date Diagnosed Date History of coronary angioplasty with insertion o f stent 07/01/2023 Coronary artery disease invo lving [place] coronary artery of [place] heart without angina pectoris 07/01/2023 Chronic obstructive [...] as of this encounter (statuses as of 07/06/2023) Resolved Problems Problem Noted Date Diagnosed Date [...] as of this encounter (statuses as of 07/06/2023) Immunizations Name Administration Dates Next Due Pneumococcal [...] Telephone Encounter - Ronald Cortes MD - 07/06/2023 5:24 PM EDT I took care of this . Prescribed Clotrimazole. * Telephone Encounter - Yeimi Carlin CCMA - 07/06/2023 12:17 PM EDT A prior was denied for Econazole nitrate 1% cream please advise. documented in this encounter Plan of Treatment Upcoming Encounters Date Type Department Care Team (Late st Contact Info) Description 10/09/2023 12:00 PM EDT Office Visit [facility] [address] [place] [address] Ronald Cortes MD [address] [place] [address] Scheduled Procedures Name Priority Associated [...] 03/08/2021, 02/07/2021 Influenza Vaccine (FLU shot) (#1) 2022 03/14/2021, 01/24/2020, 12/27/2018, Additional history exists GFR 06/30/2024 07/01/2023, 03/13, 03/09/2023, Additional history exists Albumin/Creatinine Ratio 08/15/2025 08/15/2022 Colonoscopy 06/02/2027 06/02/2017, 04/12/2007 Colorectal Cancer Screening 06/02/2027 DTaP,Tdap,and Td Vaccines (3 - Td or Tdap) 09/13/2031 09/12/2021, 06/10/2010, 07/16/1999 VITAMIN D LEVEL ONCE IN A LIFETIME-USE SMARTSET# [id number] Completed 03/22/2015 Pneumococcal Vaccine: 65+ Years Completed [...] this encounter Medical Devices Implanted Type Area School Bus Dispatcher Device Identifier Shelf Expiration Date Model / Serial / Lot Chip Cancellous [facility] [id number] - [id number] Implanted:Qty: 1 on 08/08/2013 at [facility] [place] Tissue - Human Left: Foot [employer]CULOSKELETAL TRANSPLANT FND 07/24/2015 [id number] / [id number] / Screw Nonlock 3.5 X 24 - [id number] Implanted:Qty: 1 on 08/08/2013 at [facility] [place] Left: Foot [employer]HEL[employer] CHANNEL LIP STIFFENER INSOLES-011-3 5-24 / / Screw Locking 3.5 X 16 - [id number] Implanted:Qty: 2 on 08/08/2013 at [facility] [place] Left: Foot [employer]HEL[employer] CHANNEL LIP STIFFENER INSOLES-021-3 5-16 / / Plate 6 Hole Beta Mxl-0026 - [id number] Implanted:Qty: 1 on 08/08/2013 at [facility] [place] Left: Foot [employer] MXL-0026 / / Screw Locking 3.5 X 20 - [id number] Implanted:Qty: 1 on 08/08/2013 at [facility] [place] Left: Foot [employer]HEL[employer] CHANNEL LIP STIFFENER INSOLES-021-3 5-20 / / Screw Nonlock 3.5 X 16 - [id number] Implanted:Qty: 1 on 08/08/2013 at [facility] [place] Left: Foot [employer] CHANNEL LIP STIFFENER INSOLES-011-3 5-16 / / Screw Nonlock 3.5 X 18 - [id number] Implanted:Qty: 1 on 08/08/2013 at [facility] [place] Left: Foot [employer] CHANNEL LIP STIFFENER INSOLES-011-3 5-18 / / Screw Nonlock 3.5 X 14 - [id number] Implanted:Qty: 1 on 08/08/2013 at [facility] [place] Left: Foot [employer] CHANNEL LIP STIFFENER INSOLES-011-3 5-14 / / 4.0 X 3.0 Short Max Torque Implanted:Qty: 1 on 08/08/2013 at [facility] [place] Left: Foot [employer] MSD-010-4 0-030S / / 4.0 X 32.5 Short Max Torque Implanted:Qty: 1 on 08/08/2013 at [facility] [place] Left: Foot MSD-010-4 0-325S / / 4.0 X 28 Short Max Torque Implanted:Qty: 1 on 08/08/2013 at [facility] [place] Left: Foot [employer] MSD-010-4 0-028S / / 4.0 X 22 Short Max Torque Implanted:Qty: 1 on 08/08/2013 at [facility] [place] Left: Foot [employer] MSD-010-4 0-022S / / [place] Gold 4.0 - [id number] Implanted:Qty: 1 on 08/08/2013 at [facility] [place] Left: Foot [employer] CSS-500-4 0A / / Plate Lps Alpha 2 Slot - [id number] Implanted:Qty: 1 on 08/08/2013 at [facility] [place] Left: Foot [employer] MXL-002-2 A / / Screw Variable 3.5 X 12mm - [id number] Implanted:Qty: 1 on 08/08/2013 at [facility] [place] Left: Foot [employer] RAKESH-031-3 5-12 / / Screw Variable 3.5 X 18mm - [id number] Implanted:Qty: 1 on 08/08/2013 at [facility] [place] Left: Foot ORTHOHELIX [...] the patient have Health Care Power of Room Service Waiter/Waitress? No Code Status History Code Status Date [...] the patient have Health Care Power of Room Service Waiter/Waitress? No Care Teams Swimming Coach Or Instructor Relationship Specialty Start Date End Date Ronald Cortes MD [address] [place] [address] PCP - General 06/10/02 documented as of this encounter
--- OUTSIDE RECORDS SUMMARY | 2023-12-06 10:43 | External Medical Summary | Summary of Care ---
Author Name Unknown Organization [facility] Address [address] [place] [address] Phone [phone] Care Team Providers Care Account Classification Clerk Name Role Phone Ronald Cortes MD Primary Care Provider [phone] Reason for Referral * Evaluate & Treat - Unlimited Visits (Within 30 days (routine)) - Pending Review Specialty Diagnoses / Procedures Referred By Contac t Referred To Contact Pulmonary Diseases / Pulmonary Diagnoses Chronic obstructive pulmonary disease, unspecified COPD type (HCC) Ronald Cortes MD [address] [place] [address] Referral ID Status Reason Start Date Expiration Date Visits Requested Visits Authorized [id number] Pending Review Specialty Services Required 07/01/[phone] Question Answer Referral Priority Within 30 days (routine) Where should this appointment be scheduled? [facility] Reason for Referral? Asthma/COPD Reason for Visit * Reason Comments Follow Up Patient is here toda y for a discharge follow up from the [facility]. Patient states she would like her right eye checked. Patient states she has a sore under her left breast. Patient unsure of what medication she is currently taking Encounter Details Date Type Department Care Team (Latest Contact Info) Description 07/01/2023 8:20 AM EDT [facility] Visit [facility] [address] [place] [phone] Ronald Cortes MD [address] [place] [address] Coronary artery disease involving [place] coronary artery of [place] heart without angina pectoris*; Chronic obstructive pulmonary disease, unspecified COPD type (HCC); Screening for depression; Candidal intertrigo; Acute bacterial conjunctivitis of both eyes; Cellulitis of chest wall; HTN, goal below 150/90; History of coronary angioplasty with insertion of stent Allergies Active Allergy Reactions Criticality Noted Date [...] pain, headache 1 Tab 0 4 Active Ferguson-3 Fatty Acids (FISH OIL) 1000 MG Capsule [...] Oral Tablet Extended Release 0 4 Active Alendronate Sodium 70 MG Oral Tablet (Fosamax)Indication s:Other osteoporosis without current pathological fracture,Dyslipidem ia, goal LDL below 100 TAKE 1 TABLET EVERY WEEK DIRECTED , SEE PACKAGE FOR ADDITIONAL INSTRUCTIONS 12 Tablet 3 3 07/27/19 24 Discontinue d(Refill) Atorvastatin Calcium 40 MG Oral Tablet (Lipitor) Take 1 Tablet by mouth in the morning. 90 Tablet 3 3 07/27/19 24 Discontinue d(Refill) Carvedilol 12.5 MG Oral Tablet (Coreg)Indications: Dyslipidemia, goal LDL below 100,HTN, goal below 150/90 TAKE 1 AND 1/2 TABLETS TWICE DAILY 270 Tablet 1 3 07/27/19 24 Discontinue d(Refill) Citalopram Hydrobromide 40 MG Oral Tablet (CeleXA) Take 1 Tablet by mouth in the morning. 90 Tablet 1 3 07/27/19 24 Discontinue d(Refill) Losartan Potassium 100 MG Oral Tablet (Cozaar)Indications :HTN, goal below 150/90 Take 1 Tablet by mouth in the morning. 90 Tablet 3 3 08/05/19 24 Discontinue d(Refill) Omeprazole 20 MG Oral Capsule Delayed Release (PriLOSEC)Indicatio ns:Gastroesophageal reflux disease, unspecified whether esophagitis present Take 1 Capsule by mouth in the morning. 1 hour before the first meal of the day.. 90 Capsule 3 3 07/27/19 24 Discontinue d(Refill) Ondansetron HCl 4 MG Oral Tablet (Zofran) TAKE 1 TABLET EVERY 8 HOURS NEEDED FOR NAUSEA 20 Tablet 3 3 08/05/19 24 Discontinue d(Refill) Potassium Chloride Unique ER 10 MEQ Oral Tablet Extended Release Take 1 Tablet by mouth in the morning and 1 Tablet before bedtime. 180 Tablet 3 3 07/27/19 24 Discontinue d(Refill) Gabapentin 300 MG Oral Capsule (Neurontin)Indicati ons:Post-traumatic arthrosis of multiple joints TAKE 1 CAPSULE THREE TIMES DAILY 270 Capsule 3 3 07/27/19 24 Discontinue d(Refill) traMADol HCl 50 MG Oral Tablet (Ultram)Indications :Generalized osteoarthritis of multiple sites Take 1 Tablet by mouth every 6 hours as needed for Pain, Moderate. TAKE 1 TABLET DAILY NEEDED FOR MODERATE PAIN 45 Tablet 0 3 08/05/19 24 Discontinue d(Refill) traZODone HCl 50 MG Oral Tablet (Desyrel)Indication s:Sleep disorder TAKE 1 TO 2 TABLETS BEFORE BEDTIME. 180 Tablet 2 3 07/27/19 24 Discontinue d(Refill) Myrbetriq 50 MG Oral Tablet Extended Release 24 Hour (Mirabegron ER)Indications:Mixe d incontinence urge and stress,Urinary urgency,Urinary frequency Take 1 Tablet by mouth in the morning. 30 Tablet 11 3 07/01/19 24 Discontinue d(Medicatio n/Dose Changed) Erythromycin 5 MG/GM Ophthalmic OintmentIndications :Acute bacterial conjunctivitis of both eyes Instill into both eyes 4 times a day for 10 days. Apply to affected eye(s) until redness and discharge resolved. 3.5 g 1 4 07/11/19 24 Doxycycline Hyclate 100 MG Oral CapsuleIndications: Acute bacterial conjunctivitis of both eyes,Cellulitis of chest wall Take 1 Capsule by mouth in the morning and 1 Capsule before bedtime. Do all this for 10 days. Until gone.. 20 Capsule 0 4 07/11/19 24 Additional Information Patient not taking.Reported on 07/01/2023 [...] stent 07/01/2023 Coronary artery disease invo lving [place] coronary artery of [place] heart without angina pectoris 07/01/2023 Chronic obstructive [...] Former Cigarettes 1 20 Smokeless Tobacco: Never Tobacco Cessation:Counseling Given: Not Answered Alcohol Use Standard Drinks/Week Comments No 0 [...] Sign Reading Time Taken Comments Blood Pressure 112/72 07/01/2023 8:20 AM EDT Pulse 88 07/01/2023 8:20 AM EDT Temperature 36.2 C (97.1 F) 07/01/2023 8:20 AM ED T Respiratory Rate 20 07/01/2023 8:20 AM EDT Oxygen Saturation - - Inhaled Oxygen Concentration - - Weight 58.9 kg (129 lb 12.8 oz) 07/01/2023 8:20 AM EDT Height - - Body Mass Index 25.35 11/25/2022 8:37 AM EDT documented in this encounter Functional Status [...] this encounter Patient Instructions * Patient Instructions* Jaylin Jarvis LPN - 07/01/2023 8:19 AM EDT ~~PATIENT INSTRUCTIONS FOR SHINGRIX VACCINE~~ Possible side effects of Shingrix vaccine, (shingles), are usually mild and can include: 1. Soreness or redness at injection site 2. Low grade fever 3. Body aches You may use a fever / pain reducing medication as needed for these symptoms. LET YOUR DOCTOR KNOW IMMEDIATELY IF YOU HAVE DIFFICULTY BREATHING OR SWALLOWING, EXPERIENCE ITCHINGOF FEET OR HANDS, HAVE SWELLING OF EYES, FACE OR INSIDE OF NOSE. documented in this encounter Progress Notes * Ronald Cortes MD - 07/01/2023 9:11 AM EDT Subjective: Kea Johnston is a 73 year old female. Chief Complaint Patient presents with Follow Up Patient is here today for a discharge follow up from the [facility]. Patient states she would like her right eye checked. Patient states she has a sore under her left breast. Patient unsure of what medication she is currently taking HPI: 73-year-old is seen today for the 1st time since chronic illness-this dates back to the 1st week of February when she was admitted to [facility] and underwent cardiac catheterization and 2 coronary stents as well as another catheter procedure (sounds like it was an intracardiac laser procedure to break up calcium). She made it home for just a short time (a few days) and then into a fpc where she spent essentially the last 3 months. She has been home now for a week and a half. Her current acute problems include several days of purulent drainage from her right eye into a lesser extent the left eye. Also itching and discomfort of the right eye. Irritative rash under the left breast. She has not bothered with chest pain. She is using oxygen 2 L. she does not at this time have any follow-up with Pulmonary Medicine. The oxygen was started during her hospitalization. Her overall activities pretty limited. She can walk behind a wheelchair or a walker short distance in the home otherwise is dependent on a wheelchair. She also is dependent on the 2 L nasal cannula oxygen. She does not have any inhalers currently. She has used Spiriva in the past but this was discontinued at some point during last 4 months. She is living with her granddaughter and 4-year-old great grandson [facility]. Before the hospitalization she was living on the 2nd floor of the home but with this prolonged illness and rehab, she is moved in in the 1st floor with her granddaughter. Patient Active Problem List Diagnosis Code GENERALIZED ANXIETY DIS F41.1 ADVANCE DIRECTIVE INFORMATION COMMON MIGRAINE WITHOUT MENTION OF INTRACTABLE MIGRAINE G43.009 Generalized osteoarthritis of multiple sites M15.9 Dyslipidemia, goal LDL below 100 E78.5 Osteoporosis M81.0 HTN, goal below 150/90 I10 Chronic nonspecific lung disease J98.4 Tobacco use disorder F17.200 Hematuria of undiagnosed cause R31.9 Chronic obstructive pulmonary disease (COPD) ([facility]) J44.9 History of coronary angioplasty with insertion of stent Z95.5 Coronary artery disease involving [place] coronary artery of [place] heart without angina pectoris I25.10 Current Outpatient Medications Medication Sig Dispense Refill CALCIUM + D 600-200 MG-UNIT PO TABS 1 BID 0 MULTIVITAMINS PO TABS daily 0 ACETAMINOPHEN 325 MG PO TABS 2 Tab Oral Every 6 hours as needed for fever, pain, headache 1 Tab 0 Ferguson-3 Fatty Acids (FISH OIL) 1000 MG Capsule 1 Capsule in the morning. TO GO ondansetron ODT (ZOFRAN ODT) 4 MG Orally Disintegrated Tablet 1 tab every 8 hrs as needed fornausea 30 Each 3 Spiriva HandiHaler 18 MCG Inhalation Capsule (tiotropium bromide) INHALE THE CONTENTS OF 1 CAPSULE EVERY DAY VIA HANDIHALER (DO NOT SWALLOW) 90 Capsule 3 Atorvastatin Calcium 40 MG Oral Tablet (Lipitor) Take 1 Tablet by mouth in the morning. 90 Tablet 3 Carvedilol 12.5 MG Oral Tablet (Coreg) TAKE 1 AND 1/2 TABLETS TWICE DAILY 270 Tablet 1 Citalopram Hydrobromide 40 MG Oral Tablet (CeleXA) Take 1 Tablet by mouth in the morning. 90 Tablet1 Losartan Potassium 100 MG Oral Tablet (Cozaar) Take 1 Tablet by mouth in the morning. 90 Tablet 3 Omeprazole 20 MG Oral Capsule Delayed Release (PriLOSEC) Take 1 Capsule by mouth in the morning. 1 hour before the first meal of the day.. 90 Capsule 3 Ondansetron HCl 4 MG Oral Tablet (Zofran) TAKE 1 TABLET EVERY 8 HOURS NEEDED FOR NAUSEA 20 Tablet 3 Potassium Chloride Unique ER 10 MEQ Oral Tablet Extended Release Take 1 Tablet by mouth in the morning and 1 Tablet before bedtime. 180 Tablet 3 Magnesium Oxide 400 MG Oral Tablet Take 1 Tablet by mouth in the morning. 90 Tablet 3 Gabapentin 300 MG Oral Capsule (Neurontin) TAKE 1 CAPSULE THREE TIMES DAILY 270 Capsule 3 traMADol HCl 50 MG Oral Tablet (Ultram) Take 1 Tablet by mouth every 6 hours as needed for Pain, Moderate. TAKE 1 TABLET DAILY NEEDED FOR MODERATE PAIN 45 Tablet 0 traZODone HCl 50 MG Oral Tablet (Desyrel) TAKE 1 TO 2 TABLETS BEFORE BEDTIME. 180 Tablet 2 Estradiol 0.1 MG/GM Vaginal Cream (Estrace) Apply pea sized amount (0.5 gm) vaginally twice a week at bedtime 42.5 g 3 Erythromycin 5 MG/GM Ophthalmic Ointment Instill into both eyes 4 times a day for 10 days. Apply toaffected eye(s) until redness and discharge resolved. 3.5 g 1 Doxycycline Hyclate 100 MG Oral Capsule Take 1 Capsule by mouth in the morning and 1 Capsule beforebedtime. Do all this for 10 days. Until gone.. 20 Capsule 0 Econazole Nitrate 1 % External Cream (Spectazole) Apply topically to affected area daily. Apply to affected area (under breast) twice daily 85 g 1 Albuterol Sulfate HFA 108 (90 Base) MCG/ACT Inhalation Aerosol Solution INHALE 2 PUFFS FOUR TIMES DAILY NEEDED FOR WHEEZING 54 g 3 Alendronate Sodium 70 MG Oral Tablet (Fosamax) TAKE 1 TABLET EVERY WEEK DIRECTED , SEE PACKAGE FOR ADDITIONAL INSTRUCTIONS 12 Tablet 3 Current Facility-Administered Medications Medication Dose Route Frequency Provider Last Rate Last Admin albuterol sulfate (PROVENTIL) (2.5 MG/3ML) 0.083% inhalation solution 2.5 mg 2.5 mg Nebulizer Q4H PRN Ronald Cortes MD Review of patient's allergies indicates: Allergen Reactions Bee Venom Anaphylaxis Objective: BP 112/72 | Pulse 88 | Temp 36.2 C (97.1 F) (Tympanic) | Resp 20 | Wt 58.9 kg (129 lb 12.8 oz) | BMI 25.35 kg/m | BSA 1.58 m Physical Exam: CONST: alert, pleasant, no acute distress HEAD: normocephalic, atraumatic NECK: supple, soft, no adenopathy EARS: canals normal, TMs normal NARES: clear Eyes -she has marked redness especially of the right eye with primarily palpebral conjunctiva injection as well as bulb are conjunctiva injection. She has much the same in the left eye but it has to a lesser degree. Her pupils do respond to light. OROPHARYNX: clear, no swelling or erythema, moist CV: regular rate and rhythm, no murmur CHEST: Diminished breath sounds throughout ABD: soft, non tender, non distended, no masses or hepatosplenomegaly EXT: no edema, no joint swelling or deformities, NEURO: AAOx3, no gross focal deficits, cerebellar signs normal, affect appropriate MENTAL STATUS: no evidence of thought disorder, no delusional thought, no evidence of paranoia, thought is non-tangential. SKIN: She has a bright red large inflamed area under the left breast. No satellite lesions are noted. There is no ulcerations. Right now there is no drainage although it looks like it it does drain at times. She did have dressing over it. ASSESSMENT/PLAN: Coronary artery disease involving [place] coronary artery of [place] heart without angina pectoris (Primary)-status post stenting of 2 vessels. She will follow-up with Cardiology and [facility] although that appointment is not for an additional 3 months. Continue Plavix 75 mg daily for at least 1 year dating back to February of 2023 I suspect she had atrial fibrillation as she now is on Eliquis 5 mg twice daily and amiodarone 200 mg daily. Check CBC and TSH Chronic obstructive pulmonary disease, unspecified COPD type (HCC) - PULMONARY REFERRAL OP-to be set up in the [facility] Screening for depression - DEPRESSION SCREENING PERFORMED Candidal intertrigo - Econazole Nitrate 1 % External Cream (Spectazole); Apply topically to affected area daily. Apply to affected area (under breast) twice daily Will also cover for secondary cellulitis with doxycycline 100 mg twice a day Acute bacterial conjunctivitis of both eyes - Erythromycin 5 MG/GM Ophthalmic Ointment; Instill into both eyes 4 times a day for 10 days. Applyto affected eye(s) until redness and discharge resolved. - Doxycycline Hyclate 100 MG Oral Capsule; Take 1 Capsule by mouth in the morning and 1 Capsule before bedtime. Do all this for 10 days. Until gone.. If her eyes do not start to improve within 72 hours, she needs to see an redeye gunner. Shecould try set that up and [place] or get in touch with this office and we would set her up with Ophthalmology in [place]. Cellulitis of chest wall - Doxycycline Hyclate 100 MG Oral Capsule; Take 1 Capsule by mouth in the morning and 1 Capsule before bedtime. Do all this for 10 days. Until gone.. - CBC; Future; Expected date: 07/01/2023 HTN, goal below 150/90 - BASIC METABOLIC PANEL; Future; Expected date: 07/01/2023 History of coronary angioplasty with insertion of stent-continue Plavix Chronic depression-continue citalopram 40 mg daily. Check-out note: Refer to [facility] ([place] or [facility]) See back in 3 months Over 45 minutes Um spent reviewing records, sorting out history, physical exam and developing medical plan with instruction. Ronald Cortes MD documented in this encounter Nursing Notes * Jaylin Jarvis LPN - 07/01/2023 8:24 AM EDT The patient has been properly identified by confirmation of name and date of . Chief Complaint Patient presents with Follow Up Patient is here today for a discharge follow [facility] from [facility]. Patient states she would like her right eye checked. Patient states she has a sore under her left breast. Patient unsure of what medication she is currently taking documented in this encounter Plan of Treatment Upcoming Encounters Date Type Department Care Team (Late st Contact Info) Description 10/09/2023 12:00 PM EDT Office Visit [facility] [address] [place] [facility] [place] [phone] Ronald Cortes MD [address] [place] [address] Scheduled Procedures Name Priority Associated Diagnoses Date/Ti me COLONOSCOPY FLEXIBLE PROXIMA L DIAGNOSTIC Recall Encounter for screening colonoscopy Scheduled Referrals Name Type Priority Associated Diagnoses Orde r Schedule PULMONARY REFERRAL OP Referral Within 30 days (routine) Chronic obstructive pulmonary disease, unspecified COPD type (HCC) Ordered: 07/01/2023 Health Maintenance Due Date Last Done Comments [...] D LEVEL ONCE IN A LIFETIME-USE SMARTSET# 13248 Completed 03/22/2015 Pneumococcal Vaccine: 65+ Years Completed [...] this encounter Medical Devices Implanted Type Area Assistant Chief Of Police Device Identifier Shelf Expiration Date Model / Serial / Lot Chip Cancellous [place] 086982 - [id number] [place] 1 [place] 08[place] [facility] [place] Left: Foot MUSCULOSKELETAL TRANSPLANT FND 07/24/2015 [id number] / [id number] / Screw Nonlock 3.5 X 24 - [id number] Implanted:Qty: 1 on 08/08/2013 [place] [facility] [place]: Foot ORTHOHELIX [employer] DESIGNS COTTAGE ATTENDANT-011-3 5-24 / / Screw Locking 3.5 X 16 - [id number] Implanted:Qty: 2 on 08/08/2013 at [facility] Left: Foot ORTHOHELIX SURGICAL DESIGNS COTTAGE ATTENDANT-021-3 5-16 / / Plate 6 Hole Beta Mxl-0026 - [id number] Implanted:Qty: 1 on 08/08/2013 [place] [facility] [place]: Foot ORTHOHELIX [employer] DESIGNS MXL-0026 / / Screw Locking 3.5 X 20 - [id number] Implanted:Qty: 1 on 08/08/2013 [place] [facility]: Foot ORTHOHELIX SURGICAL DESIGNS COTTAGE ATTENDANT-021-3 5-20 / / Screw Nonlock 3.5 X 16 - [id number] Implanted:Qty: 1 on 08/08/2013 [place] [facility]: Foot ORTHOHELIX SURGICAL DESIGNS COTTAGE ATTENDANT-011-3 5-16 / / Screw Nonlock 3.5 X 18 - [id number] Implanted:Qty: 1 on 08/08/2013 [place] [facility]: Foot ORTHOHELIX SURGICAL DESIGNS COTTAGE ATTENDANT-011-3 5-18 / / Screw Nonlock 3.5 X 14 - [id number] Implanted:Qty: 1 on 08/08/2013 [place] [facility]: Foot ORTHOHELIX SURG[employer] DESIGNS COTTAGE ATTENDANT-011-3 5-14 / / 4.0 X 3.0 Short Max Torque Implanted:Qty: 1 on 08/08/2013 [place] [facility] [place]: Foot ORTHOHELIX [employer] DESIGNS MSD-010-4 0-030S / / 4.0 X 32.5 Short Max Torque Implanted:Qty: 1 on 08/08/2013 [place] [facility]: Foot MSD-010-4 0-325S / / 4.0 X 28 Short Max Torque Implanted:Qty: 1 on 08/08/2013 [place] [facility] [place]: Foot ORTHOHELIX [employer] DESIGNS MSD-010-4 0-028S / / 4.0 X 22 Short Max Torque Implanted:Qty: 1 on 08/08/2013 at [place] [facility] Left: Foot ORTHOHELIX SURGICAL DESIGNS MSD-010-4 0-022S / / [place] Gold 4.0 - [id number] Implanted:Qty: 1 on 08/08/2013 at [place] [facility] Left: Foot ORTHOHELIX [employer] DESIGNS CSS-500-4 0A / / Plate Lps Alpha 2 Slot - [id number] Implanted:Qty: 1 on 08/08/2013 at [place] [facility] Left: Foot ORTHOHELIX SURGICAL DESIGNS MXL-002-2 A / / Screw Variable 3.5 X 12mm - [id number] Implanted:Qty: 1 on 08/08/2013 [place] [facility] [place]: Foot ORTHOHELIX SURGICAL DESIGNS RAKESH-031-3 5-12 / / Screw Variable 3.5 X 18mm - [id number] Implanted:Qty: 1 on 08/08/2013 [place] [facility] Left: Foot ORTHOHELIX SURGICAL DESIGNS RAKESH-031-3 5-18 / / documented as of this encounter Results * (ABNORMAL) TSH WITH FREE T4 IF INDICATED (07/01/2023 9:31 AM EDT) [facility] TSH 9.87(H) 0.27 - 4.20 uIU/mL 07/01/2023 3:15 PM EDT [facility] Blood Venous blood specimen / Unknown Venipuncture / Unknown 07/01/2023 9:31 AM EDT 07/01/2023 9:31 AM EDT Ronald Cortes MD LAB BLOOD ORDERABLES [facility] [address] [place] [address] * BASIC METABOLIC PANEL (07/01/2023 9:31 AM EDT) BUN 9 6 - 20 mg/dL 07/01/2023 2:47 PM EDT [facility] Creatinine 0.8 0.5 - 1.0 mg/dL 07/01/2023 2:47 PM EDT [facility] Estimated Glomerular Filtration Rate 75 >=60 mL/min 07/01/2023 2:47 PM EDT [facility] Comment:eGFR is calculated b ased on the CKD-EPI 2020 equation Sodium 137 135 - 146 mmol/L 07/01/2023 2:47 PM EDT [facility] Potassium 4.7 3.5 - 5.1 mmol/L 07/01/2023 2:47 PM EDT [facility] Chloride 99 98 - 107 mmol/L 07/01/2023 2:47 PM EDT [facility] CO2 31 22 - 32 mmol/L 07/01/2023 2:47 PM EDT [facility] Anion Gap 7 7 - 15 mmol/L 07/01/2023 2:47 PM EDT [facility] Glucose 98 70 - 120 mg/dL 07/01/2023 2:47 PM EDT [facility] Calcium 9.2 8.4 - 10.2 mg/dL 07/01/2023 2:47 PM EDT [facility] Blood Venous blood specimen / Unknown Venipuncture / Unknown 07/01/2023 9:31 AM EDT 07/01/2023 9:31 AM EDT Ronald Cortes MD LAB BLOOD ORDERABLES Performing Organization Address City/State/[facility] Co de Phone Number [facility] [address] [place] [address] * CBC (07/01/2023 9:31 AM EDT) WBC 9.66 4.00 - 10.80 K/uL 07/01/2023 2:49 PM EDT [facility] RBC 3.91 3.85 - 5.15 M/uL 07/01/2023 2:49 PM EDT [facility] HGB 12.0 12.0 - 15.3 g/dL 07/01/2023 2:49 PM EDT [facility] HCT 38.0 36.0 - 45.2 % 07/01/2023 2:49 PM EDT [facility] MCV 97.2 81.5 - 97.5 fL 07/01/2023 2:49 PM EDT [facility] MCH 30.7 27.0 - 34.0 pg 07/01/2023 2:49 PM EDT [facility] MCHC 31.6 32.0 - 36.0 g/dL 07/01/2023 2:49 PM EDT [facility] RDW 12.6 11.5 - 15.5 % 07/01/2023 2:49 PM EDT [facility] PLT 308 140 - 400 K/uL 07/01/2023 2:49 PM EDT [facility] MPV 9.0 6.6 - 11.1 fL 07/01/2023 2:49 PM EDT [facility] nRBCs 0 <=0 /100 WBCs 07/01/2023 2:49 PM EDT LABORATORY [facility] Blood Venous blood specimen / Unknown Venipuncture / Unknown 07/01/2023 9:31 AM EDT 07/01/2023 9:31 AM EDT Ronald Cortes MD LAB BLOOD ORDERABLES LAB[facility]ATORY [facility] [address] [place] [address] documented in this encounter Visit Diagnoses Diagnosis Coronary artery disease involving [place] coronary artery of [place] heart without angina pectoris- Primary Chronic obstructive pulmonary disease, unspecified COPD type (HCC) Screening for depression Candidal intertrigo Candidiasis of skin and nails Acute bacterial conjunctivitis of both eyes Cellulitis of chest wall Cellulitis and abscess of trunk HTN, goal below 150/90 History of coronary angioplasty with insertion of stent documented in this encounter Advance Directives Latest Code Status on File Code Status Date Activated Date Inactivated Comments Full Code 08/08/2013 9:39 PM 08/09/2013 7:25 PM This order reflects the patients wishes and were consensually agreed upon. Question Answer Comments Discussion of Advance Directives occurred with: Patient Does the patient have a Living Will? No Does the patient have Health Care Power of Photographic Laboratory Technician? No Code Status History Code Status Date [...] the patient have Health Care Power of Photographic Laboratory Technician? No Care Teams Account Classification Clerk Relationship Specialty Start Date End Date Ronald Cortes MD [address] [place] [address] PCP - General 06/10/02 documented as of this encounter"
--- OUTSIDE RECORDS SUMMARY | 2023-12-06 10:43 | External Medical Summary | Summary of Care ---
Author Name Unknown Organization [facility] Address [address] [place] [address] Phone [phone] Care Team Providers Care Manager Medical Writing Name Role Phone Ronald Cortes MD Primary Care Provider Reason for Visit * Reason Onset Date Comments Side Effects of Medications 08/04/2023 Encounter Details Date Type Department Care Team (Late st Contact Info) Description 08/04/2023 Telephone [facility] [address] [place] [address] Ronald Cortes MD [address] [place] [address] Side Effects of Medications Allergies Active Allergy Reactions Criticality Noted Date Comments Bee Venom Anaphylaxis High 02/27/2006 Doxycycline Low 08/04/2023 Intolerant, GI upset documented as of this encounter (statuses as of 08/06/2023) Medications Medication Sig Dispensed Refills Start Date End Date Status CALCIUM + D 600-200 MG-UNIT PO TABS 1 BID 0 6 Active MULTIVITAMINS PO TABS daily 0 6 Active ACETAMINOPHEN 325 MG PO TABSIndications:INT ERFACED RESULT,Pneumothorax 2 Tab Oral Every 6 hours as needed for fever, pain, headache 1 Tab 0 4 Active [place]-3 Fatty Acids (FISH OIL) 1000 MG Capsule [...] 85 g 3 4 Active Polymyxin B-Trimethoprim 47266-4.1 UNIT/ML-% Ophthalmic SolutionIndications :Acute bacterial conjunctivitis of [...] as of this encounter (statuses as of 08/06/2023) Active Problems Problem Noted Date Diagnosed Date Acquired hypothyroidism 07/19/2023 History of coronary angioplasty with insertion o f stent 07/01/2023 Coronary artery disease invo lving [place] coronary artery of [place] heart without angina pectoris 07/01/2023 Chronic obstructive [...] as of this encounter (statuses as of 08/06/2023) Resolved Problems Problem Noted Date Diagnosed Date [...] as of this encounter (statuses as of 08/06/2023) Immunizations Name Administration Dates Next Due Pneumococcal [...] [facility] ([facility]) 08/05/23 4:31 PM [phone] * Telephone Encounter - Ronald Cortes MD - 08/04/2023 4:53 PM EDT Please contact Pt: if her eye is still bothering her, she needs to see an auto parts professional. That could be optometry or ophthalmology. She mentioned [place] to see someone in [place] She would need to arrange.Other option is to see provider in [place] See what she wants to do.Let me know. Switch to polymycin opth drops . Emailed script to [facility] * Telephone Encounter - Patricia Hughes [...] notified. Pending Prescriptions: Disp Refills Polymyxin B-Trimethoprim 14480-9.1 UNIT/M*10 mL 0 Sig: Instill 2 drops into right eye four times daily for 7 days Thank you, Patricia Hughes, PharmD Clinical Pharmacist [facility]) 08/04/23 4:09 PM [phone] * Telephone Encounter - Deann Ash PHARM Tech - 08/04/2023 3:45 PM EDT Patient calling in because she can't take the Doxycycline Hyclate 100 MG Oral Capsule. Every time she takes it she throws up. She's taken it with food and without food with the same result. She is wondering if the doctor could send in something else. Transferred to pharmacist. Deann Khan Chemical Tank Worker II [facility] [address] [place] [address] 08/04/2023 3:46 PM documented in this encounter Plan of Treatment Upcoming Encounters Date Type Department Care Team (Late st Contact Info) Description 10/09/2023 12:00 PM EDT Office Visit [facility] [address] [place] [address] Ronald Cortes MD [address] [place] [address] Scheduled Procedures Name Priority Associated [...] D LEVEL ONCE IN A LIFETIME-USE SMARTSET# 68244 Completed 03/22/2015 Pneumococcal Vaccine: 65+ Years Completed [...] this encounter Medical Devices Implanted Type Area Critical Care Transport Nurse Device Identifier Shelf Expiration Date Model / Serial / Lot Chip Cancellous 5cc [id number] - [id number] [place]ed:[place] 1 [place] [facility] [place] Left: Foot MUSCULOSKELETAL TRANSPLANT FND 07/24/2015 [id number] / [id number] / Screw Nonlock 3.5 X 24 - [id number] Implanted:Qty: 1 [place] [facility] [place] Foot ORTHOHELIX SURGICAL DESIGNS NODULIZER-011-3 5-24 / / Screw Locking 3.5 X 16 - [id number] Implanted:Qty: 2 on 08[place]08[place]2013 [place] [facility] [place] Foot ORTHOHELIX SURGICAL DESIGNS NODULIZER-021-3 5-16 / / Plate 6 Hole Beta Mxl-0026 - [id number] Implanted:Qty: 1 on 08[place]08[place]2013 [place] [facility] [place] Foot ORTHOHELIX SURGICAL DESIGNS MXL-0026 / / Screw Locking 3.5 X 20 - [id number] Implanted:Qty: 1 on 08[place]08[place]2013 [place] [facility] [place] Foot ORTHOHELIX SURGICAL DESIGNS NODULIZER-021-3 5-20 / / Screw Nonlock 3.5 X 16 - [id number] Implanted:Qty: 1 [place]08[place]2013 [place] [facility] [place] Foot ORTHOHELIX SURGICAL DESIGNS NODULIZER-011-3 5-16 / / Screw Nonlock 3.5 X 18 - [id number] Implanted:Qty: 1 [place]08[place]2013 [place] [facility] [place] Foot ORTHOHELIX SURGICAL DESIGNS NODULIZER-011-3 5-18 / / Screw Nonlock 3.5 X 14 - [id number] Implanted:Qty: 1 on 08[place]08[place]2013 [place] [facility] [place] Foot ORTHOHELIX SURGICAL DESIGNS NODULIZER-011-3 5-14 / / 4.0 X 3.0 Short Max Torque Implanted:Qty: 1 on 08[place]08[place]2013 [place] [facility] [place] Foot ORTHOHELIX SURGICAL DESIGNS MSD-010-4 0-030S / / 4.0 X 32.5 Short Max Torque Implanted:Qty: 1 on 08[place]08/2013 [place] [facility] [place] Foot MSD-010-4 0-325S / / 4.0 X 28 Short Max Torque Implanted:Qty: 1 on 08[place]08/2013 [place] [facility] [place] Foot ORTHOHELIX SURGICAL DESIGNS MSD-010-4 0-028S / / 4.0 X 22 Short Max Torque Implanted:Qty: 1 [place]08[place]2013 [place] [facility] [place] Foot ORTHOHELIX SURGICAL DESIGNS MSD-010-4 0-022S / / [place] Gold 4.0 - [id number] Implanted:Qty: 1 on [place]08/2013 [place] [facility] [place] Foot ORTHOHELIX SURGICAL DESIGNS CSS-500-4 0A / / Plate Lps Alpha 2 Slot - [id number] Implanted:Qty: 1 on [place]08[place]2013 [place] [facility] [place] Foot ORTHOHELIX SURGICAL DESIGNS MXL-002-2 A / / Screw Variable 3.5 X 12mm - [id number] Implanted:Qty: 1 on 08/08/2013 [place] [facility] [place] Foot ORTHOHELIX SURGICAL DESIGNS RAKESH-031-3 5-12 / / Screw Variable 3.5 X 18mm - [id number] Implanted:Qty: 1 on 08[place]08/2013 [place] [facility] [place] Foot ORTHOHELIX SURGICAL DESIGNS RAKESH-031-3 5-18 [...] the patient have Health Care Power of Fretted Instrument Repairer? No Code Status History Code Status Date [...] the patient have Health Care Power of Fretted Instrument Repairer? No Care Teams Manager Medical Writing Relationship Specialty Start Date End Date Ronald Cortes MD [address] [place] [address] PCP - General 06/10/02 documented as of this encounter
--- OUTSIDE RECORDS SUMMARY | 2023-12-06 10:44 | External Medical Summary | Summary of Care ---
Author Name Unknown Organization [facility] Address [address] [place] [address] Phone [phone] Care Team Providers Care Seed Corn Production Manager Name Role Phone Roanld Cortes MD Primary Care Provider [phone] Reason for Visit * Reason Onset Date Comments Order Request 06/11/2023 Home oxygen Encounter Details Date Type Department Care Team (Late st Contact Info) Description 06/11/2023 Telephone [facility] [address] [place] [address] Ronald Cortes MD [address] [place] [address] Order Request (Home oxygen ) Allergies Active Allergy Reactions Criticality Noted Date Comments Bee Venom Anaphylaxis High 02/27/2006 documented as of this encounter (statuses as of 06/11/2023) Medications Medication Sig Dispensed Refills Start Date End Date Status CALCIUM + D 600-200 MG-UNIT PO TABS 1 BID 0 03/13/2006 Active MULTIVITAMINS PO TABS daily 0 03/13/2006 Active ACETAMINOPHEN 325 MG PO TABSIndications:INTE RFACED RESULT,Pneumothorax 2 Tab Oral Every 6 hours as needed for fever, pain, headache 1 Tab 0 07/27/2013 Active [place]-3 Fatty Acids (FISH OIL) 1000 MG Capsule 1 Capsule in the morning. 0 Active TO GO ondansetron ODT (ZOFRAN ODT) 4 MG Orally Disintegrated TabletIndications:No nspecific colitis 1 tab every 8 hrs as needed for nausea 30 Each 3 07/12/2019 Active Spiriva HandiHaler 18 MCG Inhalation Capsule (tiotropium bromide) INHALE THE CONTENTS OF 1 CAPSULE EVERY DAY VIA HANDIHALER (DO NOT SWALLOW) 90 Capsule 3 03/14/2021 Active Albuterol Sulfate HFA 108 (90 Base) [...] TABLETS TWICE DAILY 270 Tablet 07/30/2022 Active Citalopram Hydrobromide 40 MG Oral Tablet [...] in the morning. 90 Tablet 07/29/2022 Active Gabapentin 300 MG Oral Capsule (Neurontin)Indicatio [...] Active Additional Information Patient not taking.Reported on 01/09/2023 traZODone HCl 50 MG Oral Tablet (Desyrel)Indications :Sleep disorder TAKE 1 TO 2 TABLETS BEFORE BEDTIME. 180 Tablet 2 11/11/2022 Active Estradiol 0.1 MG/GM Vaginal Cream (Estrace) Apply pea sized amount (0.5 gm) vaginally twice a week at bedtime 42.5 g 3 11/25/2022 Active Myrbetriq 50 MG Oral Tablet Extended Release 24 Hour (Mirabegron ER)Indications:Mixed incontinence urge and stress,Urinary urgency,Urinary frequency Take 1 Tablet by mouth in the morning. 30 Tablet 11 01/09/2023 Active Hospital, Clinic, or Other Facility Administered Medication Ordered Dose Route Frequency Start Date End Date Status albuterol sulfate (PROVENTIL) (2.5 MG/3ML) 0.083% inhalation solution 2.5 mgIndications:Chronic nonspecific lung disease 2.5 mg NEBULIZER Q4H PRN 12/23/2017 Active documented as of this encounter (statuses as of 06/11/2023) Active Problems Problem Noted Date Diagnosed Date Chronic obstructive pulmonary disease (COPD) Hematuria of [...] as of this encounter (statuses as of 06/11/2023) Resolved Problems Problem Noted Date Diagnosed Date [...] as of this encounter (statuses as of 06/11/2023) Immunizations Name Administration Dates Next Due Pneumococcal [...] Telephone Encounter - Ronald Cortes MD - 06/11/2023 5:13 PM EST Need to get more info from Pt. Has she seen pulmonary med possibly in [place] or [place]? She needs an office visit isfroxana is going to continue to be seen in [place]. Looks like she has had several hospitalizations - [place]. * Telephone Encounter - Justina Canchola LPN - 06/11/2023 2:11 PM EST Please assist pt with scheduling appt to discuss * Telephone Encounter - Rylee Campos OSA - 06/11/2023 1:44 PM EST An order was requested for this patient. Name of Requesting Provider: Ronald Cortes Order Requested: portable oxygen for at home Diagnosis/Reason for Request: COPD If order request is for Mammogram: Is the patient having any breast symptoms? N/A Is there a chance of ? N/A Has the patient had any breast problems in the past? NA What location AND department does the patient wish to have their order completed at? [facility] Fax Number, if applicable: [phone] If the caller is not a current patient, please advise the patient to call their current PCP to havethe order's prior to being seen in our office. The patient was informed that our providers would not order anything (medication, labs, etc.) prior to being seen. documented in this encounter Plan of Treatment Scheduled Procedures Name Priority Associated Diagnoses Date/Ti me COLONOSCOPY FLEXIBLE PROXIMA L DIAGNOSTIC Recall Encounter for screening colonoscopy Health Maintenance Due Date Last Done Comments DISCUSS TOBACCO CESSATION (REFER TO SMARTSET #0710) 1950 Alpha-1 Antitrypsin 1967 O2 ASSESSMENT COMPLETED IN PAST YEAR FOR COPD 1967 Cologuard 1994 Sigmoidoscopy 1994 Zoster Vaccines (2 of 3) 03/19/2012 01/23/2012 Mammogram 07/22/2013 07/22/2012, 07/12, 07/18/2010, Additional history exists DXA Scan 12/27/2016 12/27/2014, 03/13, 03/29/2007, Additional history exists Fecal Occult Blood Test 04/23/2018 04/23/19 18, 12/21/2000, 10/31/1999 Depression Screening 01/23/2021 01/24/2020 COVID-19 Vaccine ( season) 2022 Influenza Vaccine (FLU shot) (#1) 2022 03/14/2021, 01/24/2020, 12/27/2018, Additional history exists GFR 03/22/2024 03/22/2023, 02/12, 03/08/2023, Additional history exists Albumin/Creatinine Ratio 08/15/2025 08/15/2022 Colonoscopy 06/02/2027 06/02/2017, 04/12/2007 Colorectal Cancer Screening 06/02/2027 Lipid Panel 08/16/2027 08/15/2022, 05/2020, 01/24/2020, Additional history exists DTaP,Tdap,and Td Vaccines (3 - Td or Tdap) 09/13/2031 09/12/2021, 06/10/2010, 07/16/1999 VITAMIN D LEVEL ONCE IN A LIFETIME-USE SMARTSET# 67143 Completed 03/22/2015 Pneumococcal Vaccine: 65+ Years Completed 12/31/2016, 11/17/2014, 06/10/2010 LUNG CANCER SCREENING - USE SMARTSET 65215 Completed 01/05/2017, 07/18/2013 GARDASIL-HPV IMMUNIZATION SERIES Aged Out No longer eligible based on patient's age to complete this topic Hepatitis B Aged Out No longer eligi ble based on patient's age to complete this topic MENINGOCOCCAL (MENACTRA/MENVEO) Aged Out No longer eligible based on patient's age to complete this topic documented as of this encounter Medical Devices Implanted Type Area Assault Amphibious Vehicle Crewman Device Identifier Shelf Expiration Date Model / Serial / Lot Chip Cancellous [facility] [id number] - [id number] Implanted:Qty: 1 on 08/08/2013 [place] [facility] [place] Tissue - Human Left: Foot MUSCULOSKELETAL TRANSPLANT FND 07/24/2015 [id number] / [id number] / Screw Nonlock 3.5 X 24 - [id number] Implanted:Qty: 1 on 08/08/2013 at [place] [facility] [place] Left: Foot ORTHOHELIX SURGICAL DESIGNS TELESALES REPRESENTATIVE-011-3 5-24 / / Screw Locking 3.5 X 16 - [id number] Implanted:Qty: 2 on 08/08/2013 at [place] [facility] [place] Left: Foot ORTHOHELIX SURGICAL DESIGNS TELESALES REPRESENTATIVE-021-3 5-16 / / Plate 6 Hole Beta Mxl-0026 - [id number] Implanted:Qty: 1 on 08/08/2013 at [place] [facility] [place] Left: Foot ORTHOHELIX SURGICAL DESIGNS MXL-0026 / / Screw Locking 3.5 X 20 - [id number] Implanted:Qty: 1 on 08/08/2013 at [place] [facility] [place] Left: Foot ORTHOHELIX SURGICAL DESIGNS TELESALES REPRESENTATIVE-021-3 5-20 / / Screw Nonlock 3.5 X 16 - [id number] Implanted:Qty: 1 on 08/08/2013 at [place] [facility] [place] Left: Foot ORTHOHELIX SURGICAL DESIGNS TELESALES REPRESENTATIVE-011-3 5-16 / / Screw Nonlock 3.5 X 18 - [id number] Implanted:Qty: 1 on 08/08/2013 at [place] [facility] [place] Left: Foot ORTHOHELIX SURGICAL DESIGNS TELESALES REPRESENTATIVE-011-3 5-18 / / Screw Nonlock 3.5 X 14 - [id number] Implanted:Qty: 1 on 08/08/2013 at [place] [facility] [place] Left: Foot ORTHOHELIX SURGICAL DESIGNS TELESALES REPRESENTATIVE-011-3 5-14 / / 4.0 X 3.0 Short [...] / / [place] Gold 4.0 - [id number] Implanted:Qty: 1 on 08/08/2013 at [place] [facility] [place] Left: Foot ORTHOHELIX SURGICAL DESIGNS CSS-500-4 0A / / Plate Lps Alpha 2 Slot - [id number] Implanted:Qty: 1 on 08/08/2013 at [place] [facility] [place] Left: Foot ORTHOHELIX SURGICAL DESIGNS MXL-002-2 A / / Screw Variable 3.5 X 12mm - [id number] Implanted:Qty: 1 on 08/08/2013 at [place] [facility] [place] Left: Foot ORTHOHELIX SURGICAL DESIGNS RAKESH-031-3 5-12 / / Screw Variable 3.5 X 18mm - [id number] Implanted:Qty: 1 on 08[facility]08/2013 [facility] [...] the patient have Health Care Power of Guide Escort? No Code Status History Code Status Date [...] the patient have Health Care Power of Guide Escort? No Care Teams Seed Corn Production Manager Relationship Specialty Start Date End Date Ronald Cortes MD [address] [place] [address] PCP - General 06/10/02 documented as of this encounter
--- OUTSIDE RECORDS SUMMARY | 2023-12-06 10:44 | External Medical Summary | Summary of Care ---
Author Name Unknown Organization [facility] Address [address] [place] [address] Phone [phone] Care Team Providers Care Collision Technician Name Role Phone Ronald Cortes MD Primary Care Provider [phone] Reason for Visit * Reason Onset Date Comments Order Request 06/11/2023 Home oxygen Encounter Details Date Type Department Care Team (Late st Contact Info) Description 06/11/2023 Telephone [facility] [address] [place] [address] Ronald Cortes MD [address] [place] [address] Order Request (Home oxygen ) Allergies Active Allergy Reactions Criticality Noted Date Comments Bee Venom Anaphylaxis High 02/27/2006 documented as of this encounter (statuses as of 06/15/2023) Medications Medication Sig Dispensed Refills Start Date End Date Status CALCIUM + D 600-200 MG-UNIT PO TABS 1 BID 0 03/13/2006 Active MULTIVITAMINS PO TABS daily 0 03/13/2006 Active ACETAMINOPHEN 325 MG PO TABSIndications:INTE RFACED RESULT,Pneumothorax 2 Tab Oral Every 6 hours as needed for fever, pain, headache 1 Tab 0 07/27/2013 Active [place]-3 Fatty Acids (FISH OIL) 1000 MG Capsule [...] as of this encounter (statuses as of 06/15/2023) Active Problems Problem Noted Date Diagnosed Date [...] as of this encounter (statuses as of 06/15/2023) Resolved Problems Problem Noted Date Diagnosed Date [...] as of this encounter (statuses as of 06/15/2023) Immunizations Name Administration Dates Next Due Influenza, [...] encounter Miscellaneous Notes * Telephone Encounter - Yeimi Carlin CCMA - 06/15/2023 11:51 AM EST The patient is aware, and verbalizes an understanding. She states that she has been seen in the [place] office more. Pt states that she is in a fdc. She states that she can be seen after she is out of the fdc on Thursday. Call transfer out front to schedule appt. * Telephone Encounter - Ronald Cortes MD - 06/11/2023 5:13 PM EST Need to get more info from Pt. Has she seen pulmonary med possibly in [place] or [place]? She needs an office visit isfshe is going to continue to be seen in [place]. Looks like she has had several hospitalizations - [place]. * Telephone Encounter - Justina Canchola LPN [...] to have their order completed at? [facility] Fax Number, if applicable: [phone] If the caller is not a current [...] Team (Late st Contact Info) Description 07/01/2023 8:20 AM EDT Office Visit [facility] [address] [place] [address] Ronald Cortes MD [address] [place] [address] Scheduled Procedures Name Priority Associated Diagnoses Date/Ti me COLONOSCOPY FLEXIBLE PROXIMA L DIAGNOSTIC Recall Encounter for screening colonoscopy Health Maintenance Due Date Last Done Comments DISCUSS TOBACCO CESSATION (REFER TO SMARTSET #7075) 1950 Alpha-1 Antitrypsin 1967 O2 ASSESSMENT COMPLETED [...] Cancer Screening 06/02/2027 Lipid Panel 08/16/2027 08/15/2022, 1205/2020, 01/24/2020, Additional history exists DTaP,Tdap,and Td Vaccines (3 - Td or Tdap) 09/13/2031 09/12/2021, 06/10/2010, 07/16/1999 VITAMIN D LEVEL ONCE IN A LIFETIME-USE SMARTSET# 58175 Completed 03/22/2015 Pneumococcal Vaccine: 65+ Years Completed 12/31/2016, 11/17/2014, 06/10/2010 LUNG CANCER SCREENING - USE SMARTSET 29412 Completed 01/05/2017, 07/18/2013 GARDASIL-HPV IMMUNIZATION SERIES Aged Out No longer eligible based on patient's age to complete this topic Hepatitis B Aged Out No longer eligi ble based on patient's age to complete this topic MENINGOCOCCAL (MENACTRA/MENVEO) Aged Out No longer eligible based on patient's age to complete this topic documented as of this encounter Medical Devices Implanted Type Area Control Officer Manager Device Identifier Shelf Expiration Date Model / Serial / Lot Chip Cancellous 5cc 288979 - [id number] Implanted:Qty: 1 on 08/08/2013 [place] [facility] [place] - Human Left: Foot MUSCULOSKELETAL TRANSPLANT FND 07/24/2015 [id number] / [id number] / Screw Nonlock 3.5 X 24 - [id number] Implanted:Qty: 1 on 08/08/2013 [place] [facility] [place]: Foot ORTHOHELIX SURGICAL DESIGNS VEHICLE SAFETY INSPECTOR-011-3 5-24 / / Screw Locking 3.5 X 16 - [id number] Implanted:Qty: 2 on 08/08/2013 [place] [facility] [place]: Foot ORTHOHELIX SURGICAL DESIGNS VEHICLE SAFETY INSPECTOR-021-3 5-16 / / Plate 6 Hole Beta Mxl-0026 - [id number] Implanted:Qty: 1 on 08/08/2013 [place] [facility] [place]: Foot ORTHOHELIX SURGICAL DESIGNS MXL-0026 / / Screw Locking 3.5 X 20 - [id number] Implanted:Qty: 1 on 08/08/2013 [place] [facility] [place]: Foot ORTHOHELIX SURGICAL DESIGNS VEHICLE SAFETY INSPECTOR-021-3 5-20 / / Screw Nonlock 3.5 X 16 - [id number] Implanted:Qty: 1 on 08/08/2013 [place] [facility] [place]: Foot ORTHOHELIX SURGICAL DESIGNS VEHICLE SAFETY INSPECTOR-011-3 5-16 / / Screw Nonlock 3.5 X 18 - [id number] Implanted:Qty: 1 on 08/08/2013 at [place] [facility] [place]: Foot ORTHOHELIX SURGICAL DESIGNS VEHICLE SAFETY INSPECTOR-011-3 5-18 / / Screw Nonlock 3.5 X 14 - [id number] Implanted:Qty: 1 on 08/08/2013 at [place] [facility] [place]: Foot ORTHOHELIX SURGICAL DESIGNS VEHICLE SAFETY INSPECTOR-011-3 5-14 / / 4.0 X 3.0 Short Max Torque Implanted:Qty: 1 on 08/08/2013 at [place] [facility] [place] Left: Foot ORTHOHELIX SURGICAL DESIGNS MSD-010-4 0-030S / / 4.0 X 32.5 Short Max Torque Implanted:Qty: 1 on 08/08/2013 at [place] [facility] [place] Left: Foot MSD-010-4 0-325S / / 4.0 X 28 Short Max Torque Implanted:Qty: 1 on 08/08/2013 at [place] [facility] [place] Left: Foot ORTHOHELIX SURGICAL DESIGNS MSD-010-4 0-028S / / 4.0 X 22 Short Max Torque Implanted:Qty: 1 on 08/08/2013 at [place] [facility] [place] Left: Foot ORTHOHELIX SURGICAL DESIGNS MSD-010-4 0-022S / / [place] Gold 4.0 - [id number] Implanted:Qty: 1 on 08/08/2013 at [place] [facility] [place] Left: Foot ORTHOHELIX SURGICAL DESIGNS CSS-500-4 0A / / Plate Lps Alpha 2 Slot - [id number] Implanted:Qty: 1 on 08/08/2013 at [place] [facility] [place] Left: Foot ORTHOHELIX SURGICAL DESIGNS MXL-002-2 A / / Screw Variable 3.5 X 12mm - [id number] Implanted:Qty: 1 on 08/08/2013 at [place] [facility] [place] Left: Foot ORTHOHELIX SURGICAL DESIGNS RAKESH-031-3 5-12 / / Screw Variable 3.5 X 18mm - [id number] Implanted:Qty: 1 on 08/08/2013 at [place] [facility] [place] Left: Foot ORTHOHELIX SURGICAL DESIGNS RAKESH-031-3 5-18 [...] the patient have Health Care Power of Dividend Deposit Voucher Clerk? No Code Status History Code Status Date [...] the patient have Health Care Power of Dividend Deposit Voucher Clerk? No Care Teams Collision Technician Relationship Specialty Start Date End Date Ronald Cortes MD [address] [place] [address] PCP - General 06/10/02 documented as of this encounter
--- OUTSIDE RECORDS SUMMARY | 2023-12-06 10:44 | External Medical Summary ---
Author Name Unknown Address Unknown Organization K01:[facility] [place] - [address] [address] Laboratory Report Ordering Provider Test Date Status LILIAM BARRETO 07/01/2023 09:31:25 Final Observation Date Value Abnormality Reference (Units ) Status BUN 07/01/2023 09:31:25 9 6-20 (mg/dL) Final Creatinine 07/01/2023 09:31:25 0.8 0.5-1.0 (mg/dL) Final Glomerular filtration rate/1.73 sq M.predicted [Volume Rate/Area] in Serum, Plasma or Blood by Creatinine-based formula (CKD-EPI) 07/01/2023 09:31:25 75 >=60 (mL/min) Final eGFR is calculated based on the CKD-EPI 2020 equation SODIUM 07/01/2023 09:31:25 137 135-146 (m mol/L) Final Potassium 07/01/2023 09:31:25 4.7 3.5-5.1 (m mol/L) Final Cl 07/01/2023 09:31:25 99 98-107 (mm ol/L) Final CO2 07/01/2023 09:31:25 31 22-32 (mmo l/L) Final Anion gap 07/01/2023 09:31:25 7 7-15 (mmol /L) Final Glucose 07/01/2023 09:31:25 98 70-120 (mg /dL) Final Calcium 07/01/2023 09:31:25 9.2 8.4-10.2 ( mg/dL) Final Performing Location [facility] [place] - [address] [place] [address]
--- OUTSIDE RECORDS SUMMARY | 2023-12-06 10:44 | External Medical Summary ---
Author Name Unknown Address Unknown Organization [id number]:[facility] [place] [address] [facility] [address] [place] [address] Laboratory Report Ordering Provider Test Date Status VIJAYA BARRETONIRAV 07/01/2023 09:31:25 Final Observation Date Value Abnormality Reference (Units ) Status TSH 07/01/2023 09:31:25 9.87 Above high normal 0. 27-4.20 (uIU/mL) Final Performing Location [facility] [place] [address] [place] [id number]
--- OUTSIDE RECORDS SUMMARY | 2023-12-06 10:44 | External Medical Summary | Summary of Care ---
Author Name Unknown Organization [facility] Address [address] [place] [address] Phone [phone] Care Team Providers Care Paper Pattern Folder Name Role Phone Ronald Cortes MD Primary Care Provider [phone] Reason for Visit * Reason Onset Date Comments Pre Cert/Prior Auth 07/01/2023 Econazole Ni trate 1% cream Encounter Details Date Type Department Care Team (Late st Contact Info) Description 07/01/2023 Telephone [facility] [address] [place] [address] Ronald Cortes MD [address] [place] [address] Pre Cert/Prior Auth (Econazole Nitrate 1% ... Allergies Active Allergy Reactions Criticality Noted Date Comments Bee Venom Anaphylaxis High 02/27/2006 documented as of this encounter (statuses as of 07/02/2023) Medications Medication Sig Dispensed Refills Start Date End Date Status CALCIUM + D 600-200 MG-UNIT PO TABS 1 BID 0 03/13/2006 Active MULTIVITAMINS PO TABS daily 0 03/13/2006 Active ACETAMINOPHEN 325 MG PO TABSIndications:INTE RFACED RESULT,Pneumothorax 2 Tab Oral Every 6 hours as needed for fever, pain, headache 1 Tab 0 07/27/2013 Active [place]-3 Fatty Acids (FISH OIL) 1000 MG Capsule [...] and discharge resolved. 3.5 g 1 07/01/2023 Active Doxycycline Hyclate 100 MG Oral CapsuleIndications:A cute bacterial conjunctivitis of both eyes,Cellulitis of chest wall Take 1 Capsule by mouth in the morning and 1 Capsule before bedtime. Do all this for 10 days. Until gone.. 20 Capsule 0 07/01/2023 Active Additional Information Patient not taking.Reported [...] as of this encounter (statuses as of 07/02/2023) Active Problems Problem Noted Date Diagnosed Date History of coronary angioplasty with insertion o f stent 07/01/2023 Coronary artery disease invo lving [place] coronary artery of [place] heart without angina pectoris 07/01/2023 Chronic obstructive [...] as of this encounter (statuses as of 07/02/2023) Resolved Problems Problem Noted Date Diagnosed Date [...] as of this encounter (statuses as of 07/02/2023) Immunizations Name Administration Dates Next Due Pneumococcal [...] 1% cream started a prior auth on [facility] the Gonzalez# [id number] documented in this encounter Plan of Treatment Upcoming Encounters Date Type Department Care Team (Late st Contact Info) Description 10/09/2023 12:00 PM EDT Office Visit [facility] [address] [place] [address] Ronald Cortes MD [address] [place] [address] Scheduled Procedures Name Priority Associated [...] D LEVEL ONCE IN A LIFETIME-USE SMARTSET# [id number] Completed 03/22/2015 Pneumococcal Vaccine: 65+ Years Completed [...] this encounter Medical Devices Implanted Type Area Capsule Inspector Device Identifier Shelf Expiration Date Model / Serial / Lot Chip Cancellous 5cc 815602 - [id number] [place] [facility] [place] Left: Foot MUSCULOSKELETAL TRANSPLANT FND 07/24/2015 [id number] / [id number] / Screw Nonlock 3.5 X 24 - [id number] [place]ed:Q[place] 1 [place] [facility] [place] Foot ORTHOHELIX SURGICAL DESIGNS FAMILY LIFE COUNSELOR-011-3 5-24 / / Screw Locking 3.5 X 16 - [id number] Implanted:Qty: 2 [place] [facility] [place] Foot ORTHOHELIX SURGICAL DESIGNS FAMILY LIFE COUNSELOR-021-3 5-16 / / Plate 6 Hole Beta Mxl-0026 - [id number] Implanted:Qty: 1 [place] [facility] [place] Foot ORTHOHELIX SURGICAL DESIGNS MXL-0026 / / Screw Locking 3.5 X 20 - [id number] Implanted:Qty: 1 [place] [facility] [place] Foot ORTHOHELIX SURGICAL DESIGNS FAMILY LIFE COUNSELOR-021-3 5-20 / / Screw Nonlock 3.5 X 16 - [id number] Im[place]ed:Qty: 1 [place] [facility] [place] Foot ORTHOHELIX SURGICAL DESIGNS FAMILY LIFE COUNSELOR-011-3 5-16 / / Screw Nonlock 3.5 X 18 - [id number] Implanted:Qty: 1 [place] [facility] [place] Foot ORTHOHELIX SURGICAL DESIGNS FAMILY LIFE COUNSELOR-011-3 5-18 / / Screw Nonlock 3.5 X 14 - [id number] Implanted:Qty: 1 [place] [facility] [place] Foot ORTHOHELIX SURGICAL DESIGNS FAMILY LIFE COUNSELOR-011-3 5-14 / / 4.0 X 3.0 Short Max Torque Implanted:Qty: 1 [place] [facility] [place] Foot ORTHOHELIX SURGICAL DESIGNS MSD-010-4 0-030S / / 4.0 X 32.5 Short Max Torque Implanted:Qty: 1 [place]2013 [place] [facility] [place]: Foot MSD-010-4 0-325S / / 4.0 X 28 Short Max Torque Implanted:Qty: 1 [place] [facility] [place]: Foot ORTHOHELIX SURGICAL DESIGNS MSD-010-4 0-028S / / 4.0 X 22 Short Max Torque Implanted:Qty: 1 [place] [facility] [place]: Foot ORTHOHELIX SURGICAL DESIGNS MSD-010-4 0-022S / / [place] Gold 4.0 - [id number] Implanted:Qty: 1 [place] [facility] [place]: Foot ORTHOHELIX SURGICAL DESIGNS CSS-500-4 0A / / Plate Lps Alpha 2 Slot - [id number] Implanted:Qty: 1 [place] [facility] [place]: Foot ORTHOHELIX SURGICAL DESIGNS MXL-002-2 A / / Screw Variable 3.5 X 12mm - [id number] Implanted:Qty: 1 [place]08[place]2013 [place] [facility] [place]: Foot ORTHOHELIX SURGICAL DESIGNS RAKESH-031-3 5-12 / / Screw Variable 3.5 X 18mm - [id number] Implanted:Qty: 1 [place] [facility] [place] Foot ORTHOHELIX SURGICAL DESIGNS RAKESH-031-3 [...] the patient have Health Care Power of Glassine Machine Tender? No Code Status History Code Status [...] the patient have Health Care Power of [place] Machine Tender? No Care Teams Paper Pattern Folder Relationship Specialty Start Date End Date Ronald Cortes MD [address] [facility] [place] [address] PCP - General 06/10/02 documented as of this encounter
--- OUTSIDE RECORDS SUMMARY | 2023-12-06 10:44 | External Medical Summary ---
Author Name Unknown Address Unknown Organization K01:LABORATORY [facility] - [address] [place] [address] Laboratory Report Ordering Provider Test Date Status LILIAM BARRETO 07/01/2023 09:31:25 Final Observation Date Value Abnormality Reference (Units ) Status T4, Free 07/01/2023 09:31:25 1.0 0.9-1.7 (n g/dL) Final Performing Location LABORATORY [facility] - [address] [place] [address]
--- OUTSIDE RECORDS SUMMARY | 2023-12-06 10:44 | External Medical Summary | Summary of Care ---
Author Name Unknown Organization [facility] Address [address] [place] [address] Phone [phone] Care Team Providers Care Fan Mail Editor Name Role Phone Ronald Cortes MD Primary Care Provider [phone] Reason for Visit * Reason Comments Outpatient Testing Encounter Details Date Type Department Care Team (Late st Contact Info) Description 07/01/2023 9:30 AM EDT Laboratory [facility] [address] [place] [address] [facility] [address] [place] [address] Cellulitis of chest wall; HTN, goal below 150/90; Chronic obstructive pulmonary disease, unspecified COPD type (HCC) Allergies Active Allergy Reactions Criticality Noted Date Comments Bee Venom Anaphylaxis High 02/27/2006 documented as of this encounter (statuses as of 07/01/2023) Medications Medication Sig Dispensed Refills Start Date End Date Status CALCIUM + D 600-200 MG-UNIT PO TABS 1 BID 0 03/13/2006 Active MULTIVITAMINS PO TABS daily 0 03/13/2006 Active ACETAMINOPHEN 325 MG PO TABSIndications:INTE RFACED RESULT,Pneumothorax 2 Tab Oral Every 6 hours as needed for fever, pain, headache 1 Tab 0 07/27/2013 Active [place]-3 Fatty Acids (FISH OIL) 1000 MG Capsule [...] MODERATE PAIN 45 Tablet 0 10/17/2022 Active traZODone HCl 50 MG Oral Tablet (Desyrel)Indications :Sleep disorder TAKE 1 TO 2 TABLETS BEFORE BEDTIME. 180 Tablet 2 11/11/2022 Active Estradiol 0.1 MG/GM Vaginal Cream (Estrace) Apply pea sized amount (0.5 gm) vaginally twice a week at bedtime 42.5 g 3 11/25/2022 Active Erythromycin 5 MG/GM Ophthalmic OintmentIndications: Acute bacterial [...] gone.. 20 Capsule 0 07/01/2023 4 Active Econazole Nitrate 1 % External Cream (Spectazole)Indicati ons:Candidal intertrigo Apply topically to affected area daily. Apply to affected area (under breast) twice daily 85 g 1 07/01/2023 Active Albuterol Sulfate HFA 108 (90 Base) MCG/ACT Inhalation Aerosol Solution Inhale 2 Puffs by mouth every 4 hours as needed for Wheezing or Cough. 18 g 5 07/01/2023 Active Hospital, Clinic, or Other Facility Administered Medication Ordered Dose Route Frequency Start Date End Date Status albuterol sulfate (PROVENTIL) (2.5 MG/3ML) 0.083% inhalation solution 2.5 mgIndications:Chronic nonspecific lung disease 2.5 mg NEBULIZER Q4H PRN 12/23/2017 Active documented as of this encounter (statuses as of 07/01/2023) Active Problems Problem Noted Date Diagnosed Date History of coronary angioplasty with insertion o f stent 07/01/2023 Coronary artery disease invo lving [place] coronary artery of [place] heart without angina pectoris 07/01/2023 Chronic obstructive [...] as of this encounter (statuses as of 07/01/2023) Resolved Problems Problem Noted Date Diagnosed Date [...] as of this encounter (statuses as of 07/01/2023) Immunizations Name Administration Dates Next Due Pneumococcal [...] 10/09/2023 12:00 PM EDT Office Visit [facility] [address] [place] [id number] Ronald Cortes MD [address] [place] [address] Pending Results Name Type Priority Associated Diagnoses Date /Time CBC Lab Routine Cellulitis of chest wall 07/01/2023 9:31 AM EDT BASIC METABOLIC PANEL Lab Routine HTN, goal below 150/90 07/01/2023 9:31 AM EDT TSH WITH FREE T4 IF INDICATED Lab Routine Chronic obstructive pulmonary disease, unspecified COPD type (HCC) 07/01/2023 9:31 AM EDT Scheduled Procedures Name Priority Associated Diagnoses [...] Screening 01/23/2021 01/24/2020 COVID-19 Vaccine (3 - season) 2022 03/08/2021, 02/07/2021 Influenza Vaccine (FLU shot) (#1) 2022 03/14/2021, 01/24/2020, 12/27/2018, Additional history exists GFR 03/22/2024 03/22/2023, 02/12, 03/08/2023, Additional history exists Albumin/Creatinine Ratio 08/15/2025 08/15/2022 Colonoscopy 06/02/2027 06/02/2017, 04/12/2007 Colorectal Cancer Screening 06/02/2027 DTaP,Tdap,and Td Vaccines (3 - Td or Tdap) 09/13/2031 09/12/2021, 06/10/2010, 07/16/1999 VITAMIN D LEVEL ONCE IN A LIFETIME-USE SMARTSET# [id number] Completed 03/22/2015 Pneumococcal Vaccine: 65+ Years Completed [...] this encounter Medical Devices Implanted Type Area Stringer Up Soldering Machine Device Identifier Shelf Expiration Date Model / Serial / Lot Chip Cancellous 5cc 115897 - [id number] Implanted:Qty: 1 on 08/08/2013 at [place] [facility] [place] Tissue - Human Left: Foot MUSCULOSKELETAL TRANSPLANT FND 07/24/2015 [id number] / [id number] / Screw Nonlock 3.5 X 24 - [id number] Implanted:Qty: 1 on 08/08/2013 at [place] [facility] [place] Left: Foot ORTHOHELIX SURGICAL DESIGNS COAL SAMPLER-011-3 5-24 / / Screw Locking 3.5 X 16 - [id number] Implanted:Qty: 2 on 08/08/2013 at [place] [facility] [place] Left: Foot ORTHOHELIX SURGICAL DESIGNS COAL SAMPLER-021-3 5-16 / / Plate 6 Hole Beta Mxl-0026 - [id number] Implanted:Qty: 1 on 08/08/2013 at [place] [facility] [place] Left: Foot ORTHOHELIX SURGICAL DESIGNS MXL-0026 / / Screw Locking 3.5 X 20 - [id number] Implanted:Qty: 1 on 08/08/2013 at [place] [facility] [place] Left: Foot ORTHOHELIX SURGICAL DESIGNS COAL SAMPLER-021-3 5-20 / / Screw Nonlock 3.5 X 16 - [id number] Implanted:Qty: 1 on 08/08/2013 at [place] [facility] [place] Left: Foot ORTHOHELIX SURGICAL DESIGNS COAL SAMPLER-011-3 5-16 / / Screw Nonlock 3.5 X 18 - [id number] Implanted:Qty: 1 on 08/08/2013 at [place] [facility] [place] Left: Foot ORTHOHELIX SURGICAL DESIGNS COAL SAMPLER-011-3 5-18 / / Screw Nonlock 3.5 X 14 - [id number] Implanted:Qty: 1 on 08/08/2013 at [place] [facility] [place] Left: Foot ORTHOHELIX SURGICAL DESIGNS COAL SAMPLER-011-3 5-14 / / 4.0 X 3.0 Short Max Torque Implanted:Qty: 1 on 08/08/2013 at [place] [facility] [place] Left: Foot ORTHOHELIX SURGICAL DESIGNS MSD-010-4 0-030S / / 4.0 X 32.5 Short Max Torque Implanted:Qty: 1 on 08/08/2013 at [place] [facility] [place] Left: Foot MSD-010-4 0-325S / / 4.0 X 28 Short Max Torque Implanted:Qty: 1 on 08/08/2013 at [place] [facility] [place] Left: Foot ORTHOHELIX SURGICAL DESIGNS MSD-010-4 0-028S / / 4.0 X 22 Short Max Torque Implanted:Qty: 1 on 08/08/2013 at [place] [facility] [place] Left: Foot ORTHOHELIX SURGICAL DESIGNS MSD-010-4 0-022S / / [place] Gold 4.0 - [id number] Implanted:Qty: 1 on 08/08/2013 at [place] [facility] [place] Left: Foot ORTHOHELIX SURGICAL DESIGNS CSS-500-4 0A / / Plate Lps Alpha 2 Slot - [id number] Implanted:Qty: 1 on 08/08/2013 at [place] [facility] [place] Left: Foot ORTHOHELIX SURGICAL DESIGNS MXL-002-2 A / / Screw Variable 3.5 X 12mm - [id number] Implanted:Qty: 1 on 08/08/2013 at [place] [facility] [place] Left: Foot ORTHOHELIX SURGICAL DESIGNS RAKESH-031-3 5-12 / / Screw Variable 3.5 X 18mm - [id number] Implanted:Qty: 1 on 08/08/2013 at [place] [facility] [place] Left: Foot ORTHOHELIX SURGICAL DESIGNS RAKESH-031-3 5-18 / / documented as of this encounter Visit Diagnoses Diagnosis Cellulitis of chest wall Cellulitis and abscess of trunk HTN, goal below 150/90 Chronic obstructive pulmonary disease, unspecified COPD type (HCC) documented in this encounter Advance Directives Latest Code Status on File Code Status Date Activated Date Inactivated Comments Full Code 08/08/2013 9:39 PM 08/09/2013 7:25 PM This order reflects the patients wishes and were consensually agreed upon. Question Answer Comments Discussion of Advance Directives occurred with: Patient Does the patient have a Living Will? No Does the patient have Health Care Power of Batch And Furnace Operator? No Code Status History Code Status [...] the patient have Health Care Power of Batch And Furnace Operator? No Care Teams Fan Mail Editor Relationship Specialty Start Date End Date Ronald Cortes MD [address] [place] [address] PCP - General 06/10/02 documented as of this encounter
--- OUTSIDE RECORDS SUMMARY | 2023-12-06 10:44 | External Medical Summary ---
Author Name Unknown Address Unknown Organization K01:LABORATORY [facility] [place] - [address] [place] [address] Laboratory Report Ordering Provider Test Date Status LILIAM BARRETO 07/01/2023 09:31:25 Final Observation Date Value Abnormality Reference (Units ) Status WBC, Total 07/01/2023 09:31:25 9.66 4.00-10.80 (K/uL) Final RBC 07/01/2023 09:31:25 3.91 3.85-5.15 (M/uL) Final Hemoglobin 07/01/2023 09:31:25 12.0 12.0-15.3 (g/dL) Final HCT 07/01/2023 09:31:25 38.0 36.0-45.2 (%) Final MCV 07/01/2023 09:31:25 97.2 81.5-97.5 (fL) Final MCH 07/01/2023 09:31:25 30.7 27.0-34.0 (pg) Final MCHC 07/01/2023 09:31:25 31.6 32.0-36.0 (g/dL) Final RDW 07/01/2023 09:31:25 12.6 11.5-15.5 (%) Final Platelets 07/01/2023 09:31:25 308 140-400 (K/uL) Final MPV 07/01/2023 09:31:25 9.0 6.6-11.1 (fL) Final Nucleated erythrocytes/100 leukocytes [Ratio] in Blood by Automated count 07/01/2023 09:31:25 0 <=0 (/100 WBCs) Final Performing Location LABORATORY [facility] [place] - [address] [place] [address]
--- OUTSIDE RECORDS SUMMARY | 2023-12-06 10:44 | External Medical Summary | Summary of Care ---
Author Name Unknown Organization [facility] Address [address] [place] [address] Phone [phone] Care Team Providers Care Podiatric Medicine Doctor Name Role Phone Ronald Cortes MD Primary Care Provider [phone] Reason for Visit * Reason Onset Date Comments Pre Cert/Prior Auth 07/01/2023 Econazole Ni trate 1% cream Encounter Details Date Type Department Care Team (Late st Contact Info) Description 07/01/2023 Telephone [facility] [address] [place] [address] Ronald Cortes MD [address] [place] [address] Pre Cert/Prior Auth (Econazole Nitrate [...] pain, headache 1 Tab 0 07/27/2013 Active [place]-3 Fatty Acids (FISH OIL) 1000 MG Capsule [...] stent 07/01/2023 Coronary artery disease invo lving [place] coronary artery of [place] heart without angina pectoris 07/01/2023 Chronic obstructive [...] 07/06/2023) Immunizations Name Administration Dates Next Due Influenza, [...] 1% cream started a prior auth on [facility] the Gonzalez# [id number] documented in this encounter Plan of Treatment Upcoming Encounters Date Type Department Care Team (Late st Contact Info) Description 10/09/2023 12:00 PM EDT Office Visit [facility] [address] [place] [address] Ronald Cortes MD [address] [place] [address] Scheduled Procedures Name Priority Associated [...] 10/31/1999 Depression Screening 01/23/2021 01/24/2020 COVID-19 Vaccine (2022- season) 2022 03/08/2021, 02/07/2021 Influenza Vaccine (FLU shot) (#1) 2022 03/14/2021, 01/24/2020, 12/27/2018, Additional history exists GFR 06/30/2024 07/01/2023, 03/13, 03/09/2023, Additional history exists Albumin/Creatinine Ratio 08/15/2025 08/15/2022 Colonoscopy 06/02/2027 06/02/2017, 04/12/2007 Colorectal Cancer Screening 06/02/2027 DTaP,Tdap,and Td Vaccines (3 - Td or Tdap) 09/13/2031 09/12/2021, 06/10/2010, 07/16/1999 VITAMIN D LEVEL ONCE IN A LIFETIME-USE SMARTSET# [id number] Completed 03/22/2015 Pneumococcal Vaccine: 65+ Years Completed [...] this encounter Medical Devices Implanted Type Area Manual Machinist Device Identifier Shelf Expiration Date Model / Serial / Lot Chip Cancellous [facility] 496383 - [id number] Implanted:Qty: 1 on 08/08/2013 at [place] [facility] [place] Tissue - Human Left: Foot MUSCULOSKELETAL TRANSPLANT FND 07/24/2015 [id number] / [id number] / Screw Nonlock 3.5 X 24 - [id number] Implanted:Qty: 1 on 08/08/2013 at [place] [facility] [place] Left: Foot ORTHOHELIX SURGICAL DESIGNS CONSTRUCTION TEACHER-011-3 5-24 / / Screw Locking 3.5 X 16 - [id number] Implanted:Qty: 2 on 08/08/2013 at [place] [facility] [place] Left: Foot ORTHOHELIX SURGICAL DESIGNS CONSTRUCTION TEACHER-021-3 5-16 / / Plate 6 Hole Beta Mxl-0026 - [id number] Implanted:Qty: 1 on 08/08/2013 at [place] [facility] [place] Left: Foot ORTHOHELIX SURGICAL DESIGNS MXL-0026 / / Screw Locking 3.5 X 20 - [id number] Implanted:Qty: 1 on 08/08/2013 at [place] [facility] [place] Left: Foot ORTHOHELIX SURGICAL DESIGNS CONSTRUCTION TEACHER-021-3 5-20 / / Screw Nonlock 3.5 X 16 - [id number] Implanted:Qty: 1 on 08/08/2013 at [place] [facility] [place] Left: Foot ORTHOHELIX SURGICAL DESIGNS CONSTRUCTION TEACHER-011-3 5-16 / / Screw Nonlock 3.5 X 18 - [id number] Implanted:Qty: 1 on 08/08/2013 at [place] [facility] [place] Left: Foot ORTHOHELIX SURGICAL DESIGNS CONSTRUCTION TEACHER-011-3 5-18 / / Screw Nonlock 3.5 X 14 - [id number] Implanted:Qty: 1 on 08/08/2013 at [place] [facility] [place] Left: Foot ORTHOHELIX SURGICAL DESIGNS CONSTRUCTION TEACHER-011-3 5-14 / / 4.0 X 3.0 [...] / / [place] Gold 4.0 - [id number] Implanted:Qty: 1 on 08/08/2013 at [place] [facility] [place] Left: Foot ORTHOHELIX SURGICAL DESIGNS CSS-500-4 0A / / Plate Lps Alpha 2 Slot - [id number] Implanted:Qty: 1 on 08/08/2013 at [place] [facility] [place] Left: Foot ORTHOHELIX SURGICAL DESIGNS MXL-002-2 A / / Screw Variable 3.5 X 12mm - [id number] Implanted:Qty: 1 on 08/08/2013 at [place] [facility] [place] Left: Foot ORTHOHELIX SURGICAL DESIGNS RAKESH-031-3 5-12 / / Screw Variable 3.5 X 18mm - [id number] Implanted:Qty: 1 on 08/08/2013 [facility] [...] the patient have Health Care Power of Tile Ditcher? No Code Status History Code Status Date [...] the patient have Health Care Power of Tile Ditcher? No Care Teams Podiatric Medicine Doctor Relationship Specialty Start Date End Date Ronlad Cortes MD [address] [facility] [place] [address] PCP - General 06/10/02 documented as of this encounter
--- OUTSIDE RECORDS SUMMARY | 2023-12-06 10:44 | External Medical Summary | Summary of Care ---
Author Name Unknown Organization [facility] Address [address] [place] [address] Phone [phone] Care Team Providers Care Noise Abatement Engineer Name Role Phone Ronald Cortes MD Primary Care Provider [phone] Encounter Details Date Type Department Care Team (Late st Contact Info) Description 07/03/2023 Telephone [facility] [address] [place] [address] Ronald Cortes MD [address] [place] [address] Allergies Active Allergy Reactions Criticality Noted Date Comments Bee Venom Anaphylaxis High 02/27/2006 documented as of this encounter (statuses as of 07/03/2023) Medications Medication Sig Dispensed Refills Start Date End Date Status CALCIUM + D 600-200 MG-UNIT PO TABS 1 BID 0 03/13/2006 Active MULTIVITAMINS PO TABS daily 0 03/13/2006 Active ACETAMINOPHEN 325 MG PO TABSIndications:INTE RFACED RESULT,Pneumothorax 2 Tab Oral Every 6 hours as needed for fever, pain, headache 1 Tab 0 07/27/2013 Active [place]-3 Fatty Acids (FISH OIL) 1000 MG Capsule [...] as of this encounter (statuses as of 07/03/2023) Active Problems Problem Noted Date Diagnosed Date History of coronary angioplasty with insertion o f stent 07/01/2023 Coronary artery disease invo lving red devil coronary artery of red devil heart without angina pectoris 07/01/2023 Chronic obstructive [...] as of this encounter (statuses as of 07/03/2023) Resolved Problems Problem Noted Date Diagnosed Date [...] as of this encounter (statuses as of 07/03/2023) Immunizations Name Administration Dates Next Due Pneumococcal [...] Telephone Encounter - Ronald Cortes MD - 07/03/2023 1:52 PM EDT Please see my recommendations per telephone encounter dated 07/01/23 * Telephone Encounter - Mariam Vaughan LPN - 07/03/2023 7:55 AM EDT [facility] is requesting an alternative to econazole nitrate 1% cream Prior auth was denied No alternatives listed documented in this encounter Plan of Treatment Upcoming Encounters Date Type Department Care Team (Late st Contact Info) Description 10/09/2023 12:00 PM EDT Office Visit [facility] [address] [place] [address] Ronald Cortes MD [address] [place] [address] Scheduled Procedures Name Priority Associated [...] D LEVEL ONCE IN A LIFETIME-USE SMARTSET# [id number] Completed 03/22/2015 Pneumococcal Vaccine: 65+ Years Completed [...] this encounter Medical Devices Implanted Type Area Machine Fur Cleaner Device Identifier Shelf Expiration Date Model / Serial / Lot Chip Cancellous c [id number] - [id number] Implanted:Qty: 1 on 08/08/2013 at [place] [facility] [place] Tissue - Human Left: Foot MUSCULOSKELETAL TRANSPLANT FND 07/24/2015 [id number] / [id number] / Screw Nonlock 3.5 X 24 - [id number] Implanted:Qty: 1 on 08/08/2013 at [place] [facility] [place] Left: Foot [employer] TISSUE TECHNOLOGIST-011-3 5-24 / / Screw Locking 3.5 X 16 - [id number] Implanted:Qty: 2 on 08/08/2013 at [place] [facility] [place] Left: Foot [employer] TISSUE TECHNOLOGIST-021-3 5-16 / / Plate 6 Hole Beta Mxl-0026 - [id number] Implanted:Qty: 1 on 08/08/2013 at [place] [facility] [place] Left: Foot [employer] MXL-0026 / / Screw Locking 3.5 X 20 - [id number] Implanted:Qty: 1 on 08/08/2013 at [place] [facility] [place] Left: Foot [employer] TISSUE TECHNOLOGIST-021-3 5-20 / / Screw Nonlock 3.5 X 16 - [id number] Implanted:Qty: 1 on 08/08/2013 at [place] [facility] [place] Left: Foot [employer] TISSUE TECHNOLOGIST-011-3 5-16 / / Screw Nonlock 3.5 X 18 - [id number] Implanted:Qty: 1 on 08/08/2013 at [facility] Left: Foot [employer] TISSUE TECHNOLOGIST-011-3 5-18 / / Screw Nonlock 3.5 X 14 - [id number] Implanted:Qty: 1 on 08/08/2013 at [place] [facility] [place] Left: Foot [employer] TISSUE TECHNOLOGIST-011-3 5-14 / / 4.0 X 3.0 Short Max Torque Implanted:Qty: 1 on 08/08/2013 at [place] [facility] [place] Left: Foot [employer] MSD-010-4 0-030S / / 4.0 X 32.5 Short Max Torque Implanted:Qty: 1 on 08/08/2013 at [place] [facility] [place] Left: Foot MSD-010-4 0-325S / / 4.0 X 28 Short Max Torque Implanted:Qty: 1 on 08/08/2013 at [place] [facility] [place] Left: Foot [employer] MSD-010-4 0-028S / / 4.0 X 22 Short Max Torque Implanted:Qty: 1 on 08/08/2013 at [place] [facility] [place] Left: Foot [employer] MSD-010-4 0-022S / / Washe Flat Gold 4.0 - [id number] Implanted:Qty: 1 on 08/08/2013 at [place] [facility] [place] Left: Foot [employer] CSS-500-4 0A / / Plate Lps Alpha 2 Slot - [id number] Implanted:Qty: 1 on 08/08/2013 at [place] [facility] [place] Left: Foot [employer] MXL-002-2 A / / Screw Variable 3.5 X 12mm - [id number] Implanted:Qty: 1 on 08/08/2013 at [place] [facility] [place] Left: Foot [employer] RAKESH-031-3 5-12 / / Screw Variable 3.5 X 18mm - [id number] Implanted:Qty: 1 on 08/08/2013 at [place] [facility] [place] Left: Foot ORTHOHELIX [...] the patient have Health Care Power of Health Services Coordinator? No Code Status History Code Status Date [...] the patient have Health Care Power of Health Services Coordinator? No Care Teams Noise Abatement Engineer Relationship Specialty Start Date End Date Ronald Cortes MD [address] [place] [address] PCP - General 06/10/02 documented as of this encounter
--- NOTE | 2023-12-06 10:58 | Emergency Department Note ---
Impression & Plan Chest pain, Nausea & vomiting, Elevated brain natriuretic peptide (BNP) level ED Provider Note HISTORY OF PRESENT ILLNESS: Patient is a 73-year-old female presenting with chest pain and vomiting. Patient reports that she has not been feeling well over the last few days. She been having a substernal chest pain and epigastric pain for that timeframe. Reports the pain seems to come and go. Reports that she has been having multiple days of vomiting and feeling nauseous. She reports poor oral intake. Denies any diarrhea. Reports diffuse abdominal pain. Reports an abdominal surgical history significant for a cholecystectomy. She denies any dysuria or hematuria. She has a history of MD and is on Eliquis. She reports has been unable to take her medication secondary to persistent vomiting. No reported fevers. Denies any significant shortness of breath. She wears 2 L nasal cannula at baseline. Patient was given 324 mg of p.o. aspirin en route with EMS. ROS: as above PHYSICAL EXAM: Constitutional: Patient appears in no acute distress. HENT: Head: Normocephalic and atraumatic. Eyes: EOMI, PERRL Mouth/Throat: Mucous membranes dry. Neck: Trachea midline. Neck supple. Cardiovascular: RRR, No murmurs, rubs or gallops. Intact distal pulses. Pulmonary/Chest: No respiratory distress. Breath sounds clear and equal bilaterally. No wheezes or rales. Abdominal: Abdomen soft, no rebound or guarding. Diffuse TTP Musculoskeletal: No edema, tenderness or deformity noted. Skin: Warm and dry. No rash, erythema, pallor or cyanosis Psychiatric: Appropriate mood and affect for situation. Neurological: Alert and keenly responsive. CN II-XII grossly intact, moving all extremities equally and fully. MDM: - Vitals signs showed hypertension. - History obtained via patient. History as above. - Chronic conditions affecting care: DM-2; HTN; CHF; hypothyroidism - Differential diagnoses include, but are not limited to: Acute coronary syndrome; pulmonary embolism; dissection; tension pneumothorax; esophageal rupture; pneumonia - Order placed for continuous cardiac monitoring. At this time, monitor showed rate of 70 bpm with normal sinus rhythm, per my interpretation. - External medical records reviewed. [facility] cardiology note dated 11/13/2023 was reviewed. Patient was seen in their clinic to establish cardiology care. She has a history of ST segment elevation myocardial infarction and paroxysmal A-fib. - EKG interpreted by myself showed normal sinus rhythm. Rate 66 bpm. QT 342. No acute ischemic changes. Noted to have significant artifact on the EKG. - Laboratory workup interpreted by myself showed normal WBC; normal PT/INR; hypokalemia (K 3.2); normal troponin; elevated BNP (398); normal lipase - CXR negative for pneumonia or pulmonary edema, per my interpretation - Viral respiratory panel negative - CT abdomen/pelvis with IV contrast showed no acute pathology. Did have some bladder wall thickening suggestive of cystitis. Also noted to have some thickening of the right renal pelvis and ureter suggestive of mild pyelitis. - On reassessment at 15:30, patient is reporting that her chest pain has returned and she is feeling nauseous again. Will plan to admit to hospital service for further evaluation and management. - Discussion was had with case preparer and liner about patient's case and need for admission - Hospitalist, Dr. Green, consulted for admission - [facility] ASSESSMENT AND PLAN: Diagnosis: Chest pain; nausea and vomiting; elevated BNP Plan: Admit Past Med/Surg History Problem List (Updated 12/06/23 @ 15:37 by Mery Pearl MD) Elevated brain natriuretic peptide (BNP) level (Acute) Nausea & vomiting (Acute) Chest pain (Acute) Asthma exacerbation (Acute) Gastroenteritis (Acute) Fall in home (Acute) CHI (closed head injury) (Acute) Scalp laceration (Acute) Facial laceration (Acute) Heart disease HTN (hypertension) Kidney disease Diabetes (Chronic) Bronchitis Fall in home (Acute) Hyponatremia (Acute) Hypokalemia (Acute) Abdominal pain Diarrhea Vomiting Social History Smoking Status: Former smoker Tobacco Type: Cigarettes Preferred Language: Turkish Feels Safe at Home: Yes Allergies Allergies Allergy/AdvReac Type Severity Reaction Status Date / Time bee venom protein (honey bee) Allergy Severe SWELLING Verified 12/06/23 12:51 SEVERE doxycycline Allergy Unknown Unknown - Unverified 12/06/23 12:51 On file w/ [facility] No Known Drug Allergies Allergy Unknown . Verified 06/02/17 11:01 Home Meds Home Medications Medication Instructions Recorded Confirmed multivitamin 1 tab PO DAILY #0 tabs 02/07/14 12/06/23 acetaminophen 325 mg tablet 650 mg PO Q6 PRN Pain #0 tabs 04/22/17 12/06/23 (Tylenol) calcium carbonate 600 mg-vitamin 1 tab PO DAILY ##0 04/22/17 12/06/23 D3 10 mcg (400 unit) tablet (Calcium 600 + D(3)) omega 7-hei-ecq-fish oil 1,000 mg 1 cap PO DAILY #0 caps 04/22/17 12/06/23 (120 mg-180 mg) capsule (Fish Oil) magnesium oxide 400 mg PO BID #0 tabs 06/01/17 12/06/23 alendronate 70 mg tablet 70 mg PO WK 12/06/23 12/06/23 amiodarone 200 mg tablet 200 mg PO DAILY 12/06/23 12/06/23 apixaban 5 mg tablet (Eliquis) 5 mg PO BID 12/06/23 12/06/23 atorvastatin 40 mg tablet 40 mg PO QAM 12/06/23 12/06/23 carvedilol 12.5 mg tablet 18.75 mg PO BID 12/06/23 12/06/23 citalopram 40 mg tablet 40 mg PO QAM 12/06/23 12/06/23 clopidogrel 75 mg tablet 75 mg PO QAM 12/06/23 12/06/23 fluticasone propionate 115 2 puff inhalation BID 12/06/23 12/06/23 mcg-salmeterol 21 mcg/actuation HFA inhaler furosemide 40 mg tablet 40 mg PO DAILY 12/06/23 12/06/23 gabapentin 300 mg capsule 300 mg PO TID 12/06/23 12/06/23 levothyroxine 25 mcg tablet 25 mcg PO DAILYBB 12/06/23 12/06/23 oxybutynin chloride 5 mg 5 mg PO DAILY 12/06/23 12/06/23 tablet,extended release 24 hr potassium chloride 10 mEq 10 meq PO BID 12/06/23 12/06/23 tablet,extended release(part/cryst) (Klor-Con M) trazodone 50 mg tablet 50 - 100 mg PO HS 12/06/23 12/06/23 Results & Data (ED) Vital Signs Vital Signs - 24 hr 12/06/23 10:44 12/06/23 10:44 12/06/23 10:44 Temperature 37.1 C Temperature Source Oral Pulse Rate 70 Pulse Rate [Right Finger] Pulse Rate from SpO2 Sensor Pulse Rhythm Regular Pulse Rhythm [Right Finger] Pulse Strength Normal Pulse Strength [Right Finger] Respiratory Rate 22 Respiratory Effort / Characteristics Non-Labored Spontaneous Non-Labored Spontaneous Respiratory Depth Normal Normal Respiratory Pattern Regular Blood Pressure 194/104 H Blood Pressure [Right Arm] Blood Pressure Mean 134 Blood Pressure Mean [Right Arm] Blood Pressure Position Semi-fowlers Blood Pressure Position [Right Arm] Pulse Oximetry 96 96 Oxygen Delivery Method Nasal Cannula Nasal Cannula Nasal Cannula Oxygen Flow Rate 2 2 2 Sepsis Recent Fever Within 48 Hours No Sepsis New/Unexplained Change in Mental Status No Sepsis Action Taken by Nursing No Action Required 12/06/23 10:44 12/06/23 10:47 12/06/23 10:52 Temperature 37.1 C Temperature Source Oral Pulse Rate 71 69 Pulse Rate [Right Finger] 69 Pulse Rate from SpO2 Sensor Pulse Rhythm Regular Pulse Rhythm [Right Finger] Regular Pulse Strength Pulse Strength [Right Finger] Normal Respiratory Rate 22 22 Respiratory Effort / Characteristics Non-Labored Spontaneous Respiratory Depth Normal Respiratory Pattern Regular Blood Pressure Blood Pressure [Right Arm] 194/104 H Blood Pressure Mean Blood Pressure Mean [Right Arm] 134 Blood Pressure Position Blood Pressure Position [Right Arm] Semi-fowlers Pulse Oximetry 96 96 Oxygen Delivery Method Nasal Cannula Nasal Cannula Oxygen Flow Rate 2 2 Sepsis Recent Fever Within 48 Hours Sepsis New/Unexplained Change in Mental Status Sepsis Action Taken by Nursing 12/06/23 11:29 12/06/23 12:00 12/06/23 12:30 Temperature Temperature Source Pulse Rate 66 67 Pulse Rate [Right Finger] 63 Pulse Rate from SpO2 Sensor 66 67 Pulse Rhythm Pulse Rhythm [Right Finger] Regular Pulse Strength Pulse Strength [Right Finger] Normal Respiratory Rate 21 14 15 Respiratory Effort / Characteristics Non-Labored Respiratory Depth Normal Respiratory Pattern Regular Blood Pressure 178/97 H 164/84 H Blood Pressure [Right Arm] 150/95 H Blood Pressure Mean 124 110 Blood Pressure Mean [Right Arm] 113 Blood Pressure Position Blood Pressure Position [Right Arm] Sitting Pulse Oximetry 97 95 97 Oxygen Delivery Method Nasal Cannula Nasal Cannula Nasal Cannula Oxygen Flow Rate 2 2 2 Sepsis Recent Fever Within 48 Hours Sepsis New/Unexplained Change in Mental Status Sepsis Action Taken by Nursing 12/06/23 14:00 12/06/23 14:30 12/06/23 15:00 Temperature Temperature Source Pulse Rate 64 65 63 Pulse Rate [Right Finger] Pulse Rate from SpO2 Sensor 64 63 Pulse Rhythm Pulse Rhythm [Right Finger] Pulse Strength Pulse Strength [Right Finger] Respiratory Rate 14 16 15 Respiratory Effort / Characteristics Respiratory Depth Respiratory Pattern Blood Pressure 173/102 H 179/104 H 162/86 H Blood Pressure [Right Arm] Blood Pressure Mean 146 129 111 Blood Pressure Mean [Right Arm] Blood Pressure Position Blood Pressure Position [Right Arm] Pulse Oximetry 96 97 97 Oxygen Delivery Method Nasal Cannula Room Air Room Air Oxygen Flow Rate 2 Sepsis Recent Fever Within 48 Hours Sepsis New/Unexplained Change in Mental Status Sepsis Action Taken by Nursing 12/06/23 15:16 Temperature Temperature Source Pulse Rate 66 Pulse Rate [Right Finger] Pulse Rate from SpO2 Sensor Pulse Rhythm Pulse Rhythm [Right Finger] Pulse Strength Pulse Strength [Right Finger] Respiratory Rate Respiratory Effort / Characteristics Respiratory Depth Respiratory Pattern Blood Pressure Blood Pressure [Right Arm] Blood Pressure Mean Blood Pressure Mean [Right Arm] Blood Pressure Position Blood Pressure Position [Right Arm] Pulse Oximetry Oxygen Delivery Method Oxygen Flow Rate Sepsis Recent Fever Within 48 Hours Sepsis New/Unexplained Change in Mental Status Sepsis Action Taken by Nursing Laboratory Data 12/06/23 10:50 12/06/23 10:50 Lab Results 12/06/23 12/06/23 12/06/23 Range/Units 10:50 10:54 13:35 WBC 9.18 (4.8-10.8) K/ul RBC 4.33 (4.20-5.40) M/uL Hgb 13.0 (12.0-16.0) g/dl Hct 39.6 (37.0-47.0) % MCV 91.5 (80.0-100.0) fL MCH 30.0 (25.0-34.0) pg MCHC 32.8 (32.0-36.0) g/dL RDW Std Deviation 45.1 (36.4-46.3) fL RDW Coeff of Chet 13.3 (11.5-14.5) % Plt Count 302 (130-400) K/uL MPV 8.9 L (9.4-12.4) fL Immature Gran % (Auto) 0.3 % Neut % (Auto) 76.8 % Lymph % (Auto) 16.2 % Donley % (Auto) 5.7 % Eos % (Auto) 0.5 % Baso % (Auto) 0.5 % Neut # (Auto) 7.04 H (1.40-6.50) K/uL Lymph # (Auto) 1.49 (1.20-3.40) K/uL Donley # (Auto) 0.52 (0.11-0.59) K/uL Eos # (Auto) 0.05 (0.00-0.50) K/uL Baso # (Auto) 0.05 (0.00-0.20) K/uL Immature Gran # (Auto) 0.03 (0.01-0.20) K/uL PT 11.0 (9.0-12.0) Seconds INR 1.0 (0.9-1.1) Sodium 139 (136-145) mmol/L Potassium 3.2 L (3.5-5.1) mmol/L Chloride 92 L (98-107) mmol/L Carbon Dioxide 37 H (21-32) mmol/L Anion Gap 10 (3-11) BUN 15 (6-23) mg/dl Creatinine 0.75 (0.6-1.2) mg/dl Est Cr Clr Drug Dosing 49.7 ml/min Est GFR ( Amer) 91.0 ml/min Est GFR (Non-Af Amer) 78.5 ml/min BUN/Creatinine Ratio 20.0 (10-20) Glucose 119 H (70-99(Fasting)) mg/dl Calcium 9.9 (8.6-10.3) mg/dl Total Bilirubin 0.7 (0.2-1.0) mg/dl AST 20 (13-39) U/L ALT 11 (7-52) U/L Alkaline Phosphatase 83 (34-104) U/L Troponin I High Sens 11.2 9.5 (0-14) pg/ml B-Natriuretic Peptide 398 H (0-100) pg/ml Total Protein 7.4 (6.0-8.3) gm/dl Albumin 3.7 (3.4-5.0) gm/dl Globulin 3.7 (2.5-4.0) gm/dl Albumin/Globulin Ratio 1.0 (0.9-2) Lipase 29 (11-82) U/L Urine Color Urine Appearance (Clear) Urine pH (4.5-7.5) Ur Specific [place] (1.000-1.030) Urine Protein (Negative) Urine Glucose (UA) (Negative) Urine Ketones (Negative) Urine Blood (Negative) Urine Nitrite (Negative) Urine Bilirubin (Negative) Urine Urobilinogen (Negative) Ur Leukocyte Esterase (Negative) Urine WBC (Auto) (0-5) /hpf Urine RBC (Auto) (0-2) /hpf U Hyaline Cast (Auto) (0-2) /lpf U Epithel Cells (Auto) (0-2) /hpf Urine Bacteria (Auto) (None Seen) Adenovirus (PCR) Not Detected (NotDetected) B. pertussis DNA (PCR) Not Detected (NotDetected) B.parapertussis DNA PCR Not Detected (NotDetected) C. pneumoniae DNA (PCR) Not Detected (NotDetected) Coronavirus OC43 (PCR) Not Detected (NotDetected) Coronavirus HKU1 (PCR) Not Detected (NotDetected) Coronavirus 229E (PCR) Not Detected (NotDetected) SARS-CoV-2 (PCR) Not Detected (NotDetected) Coronavirus NL63 (PCR) Not Detected (NotDetected) Human Metapneumovir PCR Not Detected (NotDetected) Influenza Type A (PCR) Not Detected (NotDetected) Influenza Type B (PCR) Not Detected (NotDetected) M. pneumoniae (PCR) Not Detected (NotDetected) Parainfluenza 1 (PCR) Not Detected (NotDetected) Parainfluenza 2 (PCR) Not Detected (NotDetected) Parainfluenza 3 (PCR) Not Detected (NotDetected) Parainfluenza 4 (PCR) Not Detected (NotDetected) RSV (PCR) Not Detected (NotDetected) Entero/Rhino (PCR) Not Detected (NotDetected) 12/06/23 Range/Units 15:34 WBC (4.8-10.8) K/ul RBC (4.20-5.40) M/uL Hgb (12.0-16.0) g/dl Hct (37.0-47.0) % MCV (80.0-100.0) fL MCH (25.0-34.0) pg MCHC (32.0-36.0) g/dL RDW Std Deviation (36.4-46.3) fL RDW Coeff of Chet (11.5-14.5) % Plt Count (130-400) K/uL MPV (9.4-12.4) fL Immature Gran % (Auto) % Neut % (Auto) % Lymph % (Auto) % Donley % (Auto) % Eos % (Auto) % Baso % (Auto) % Neut # (Auto) (1.40-6.50) K/uL Lymph # (Auto) (1.20-3.40) K/uL Donley # (Auto) (0.11-0.59) K/uL Eos # (Auto) (0.00-0.50) K/uL Baso # (Auto) (0.00-0.20) K/uL Immature Gran # (Auto) (0.01-0.20) K/uL PT (9.0-12.0) Seconds INR (0.9-1.1) Sodium (136-145) mmol/L Potassium (3.5-5.1) mmol/L Chloride (98-107) mmol/L Carbon Dioxide (21-32) mmol/L Anion Gap (3-11) BUN (6-23) mg/dl Creatinine (0.6-1.2) mg/dl Est Cr Clr Drug Dosing ml/min Est GFR ( Amer) ml/min Est GFR (Non-Af Amer) ml/min BUN/Creatinine Ratio (10-20) Glucose (70-99(Fasting)) mg/dl Calcium (8.6-10.3) mg/dl Total Bilirubin (0.2-1.0) mg/dl AST (13-39) U/L ALT (7-52) U/L Alkaline Phosphatase (34-104) U/L Troponin I High Sens (0-14) pg/ml B-Natriuretic Peptide (0-100) pg/ml Total Protein (6.0-8.3) gm/dl Albumin (3.4-5.0) gm/dl Globulin (2.5-4.0) gm/dl Albumin/Globulin Ratio (0.9-2) Lipase (11-82) U/L Urine Color Yellow Urine Appearance Cloudy A (Clear) Urine pH 8.5 H (4.5-7.5) Ur Specific [place] 1.015 (1.000-1.030) Urine Protein 1+ H (Negative) Urine Glucose (UA) Negative (Negative) Urine Ketones Negative (Negative) Urine Blood Trace H (Negative) Urine Nitrite Negative (Negative) Urine Bilirubin Negative (Negative) Urine Urobilinogen Negative (Negative) Ur Leukocyte Esterase 3+ H (Negative) Urine WBC (Auto) >50 H (0-5) /hpf Urine RBC (Auto) 0-2 (0-2) /hpf U Hyaline Cast (Auto) 3-5 H (0-2) /lpf U Epithel Cells (Auto) 0-2 (0-2) /hpf Urine Bacteria (Auto) 4+ H (None Seen) Adenovirus (PCR) (NotDetected) B. pertussis DNA (PCR) (NotDetected) B.parapertussis DNA PCR (NotDetected) C. pneumoniae DNA (PCR) (NotDetected) Coronavirus OC43 (PCR) (NotDetected) Coronavirus HKU1 (PCR) (NotDetected) Coronavirus 229E (PCR) (NotDetected) SARS-CoV-2 (PCR) (NotDetected) Coronavirus NL63 (PCR) (NotDetected) Human Metapneumovir PCR (NotDetected) Influenza Type A (PCR) (NotDetected) Influenza Type B (PCR) (NotDetected) M. pneumoniae (PCR) (NotDetected) Parainfluenza 1 (PCR) (NotDetected) Parainfluenza 2 (PCR) (NotDetected) Parainfluenza 3 (PCR) (NotDetected) Parainfluenza 4 (PCR) (NotDetected) RSV (PCR) (NotDetected) Entero/Rhino (PCR) (NotDetected) Administered Medications Discontinued Medications Fentanyl Citrate (Fentanyl Citrate Pf 100 Mcg/2 Ml Vial) 50 mcg IV NOW STA Stop: 12/06/23 11:01 Last Admin: 12/06/23 11:29 Dose: 50 mcg Documented By: [place] Sodium Chloride (Nss) 1,000 mls @ 999 mls/hr IV .Q1H1M ONE Stop: 12/06/23 12:00 Last Infusion: 12/06/23 14:56 Dose: Infused Documented By: Admin: 08/25/24 11:30 Dose: 999 mls/hr Documented By: DARELL Ioversol (Optiray 320 100ml) 94 ml IV ONCE ONE Stop: 12/06/23 12:04 Last Admin: 12/06/23 12:04 Dose: 94 ml Documented By: AYLIN Ondansetron HCl (Ondansetron Inj 2 Mg/Ml 2 Ml Vial) 4 mg IV NOW STA Stop: 12/06/23 11:01 Last Admin: 12/06/23 11:29 Dose: 4 mg Documented By: DARELL Ondansetron HCl (Ondansetron Inj 2 Mg/Ml 2 Ml Vial) 4 mg IV NOW STA Stop: 12/06/23 16:02 Last Admin: 12/06/23 16:06 Dose: 4 mg Documented By: LUCRECIA Imaging Data Radiologist's Impression: Chest X-Ray 12/06/23 10:50 XR chest 1V portable HISTORY: Chest pain, nonspecific COMPARISON: Chest 02/07/2014. FINDINGS: No pneumothorax. No pleural effusions. The lungs are hyperexpanded with mild apical predominant emphysematous changes. The lungs are clear. No focal lung consolidations to suggest a pneumonia. No evidence for pulmonary edema. No acute fractures. There is metallic anchor within the right humeral head. There are old, healed right-sided rib fractures. IMPRESSION: 1. No acute process within the chest. 2. Emphysema. ACT 112: Negative or not required by law. Electronically signed by: Virgilio Briones M.D. 12/06/2023 11:46 AM Abdomen/Pelvis CT 12/06/23 10:[address] WITH IV CONTRAST CT DOSE: 474.23 mGy.cm HISTORY: vomiting; abd pain TECHNIQUE: Multiaxial CT images of the abdomen and pelvis were performed following the use of intravenous contrast. A dose lowering technique was utilized adhering to the principles of ALARA. COMPARISON STUDY: Abdomen and pelvis CT 04/22/2017. FINDINGS: Emphysema at the lung bases. No pneumoperitoneum. No pneumatosis. Levoscoliosis and degenerative changes within the lumbar spine. No acute fractures. Prior cholecystectomy. This likely accounts for the mild bile duct dilatation. No hepatic or splenic masses. Mild thickening and adrenal glands. This likely represents adrenal hyperplasia. Focal coarse calcification at the pancreatic tail, unchanged. Otherwise, the pancreas enhances normally. Mild bilateral cortical renal scarring. A few bilateral renal hypodense lesions. These favor cysts. Dominant right renal cyst measures 3.3 cm. Mild urothelial thickening within the right renal pelvis and right ureter suggestive of a mild pyelitis. No evidence for pyelonephritis at this time. No retroperitoneal lymphadenopathy. Calcified plaque in the abdominal aorta. There is a 3.1 cm infrarenal abdominal aortic aneurysm. No pelvic lymphadenopathy or pelvic free fluid. A few bladder diverticula. There is mild bladder wall thickening suggestive of a cystitis. Abnormal thickening within the endometrium measuring up to 16 mm. There is a 14 mm fibroid within the posterior uterine wall. Trace pelvic free fluid. Colonic diverticulosis. No evidence for acute diverticulitis. No bowel wall thickening or obstruction. Normal appendix. IMPRESSION: 1. No bowel wall thickening or obstruction. 2. Normal appendix. 3. Colonic diverticulosis. No evidence for acute diverticulitis. 4. Bladder wall thickening suggestive of a cystitis. Recommend correlation with urinalysis. 5. There is also mild urothelial thickening within the right renal pelvis and right ureter. This favors a mild pyelitis. 6. Thickening within the endometrium measuring up to 16 mm. This is considered abnormal for a postmenopausal patient. Follow-up nonemergent gynecologic consultation recommended. 7. A 3.1 cm infrarenal abdominal aortic aneurysm. 8. Additional findings as described above. ACT 112: Negative or not required by law. Electronically signed by: Virgilio Briones M.D. 12/06/2023 1:29 PM Discharge Plan Visit Data Chief Complaint: Chest Pain ED Provider: Mery Pearl Discharge Problem: Chest pain, Nausea & vomiting, Elevated brain natriuretic peptide (BNP) level Forms Stand Alone Forms: [facility] [employer] Prescriptions Prescriptions: No Action multivitamin Tablet 1 tab PO DAILY Qty: 0 Rx Instructions: Unable to verify OTC meds at this date/time. acetaminophen [Tylenol] 325 mg Tablet 650 mg PO Q6 PRN (Reason: Pain) Qty: 0 Rx Instructions: Unable to verify OTC meds at this date/time. calcium carbonate-vitamin D3 [Calcium 600 + D(3)] 600 mg-10 mcg (400 unit) Tablet 1 tab PO DAILY Qty: 0 Rx Instructions: Unable to verify OTC meds at this date/time. omega 5-dzv-mtm-fish oil [Fish Oil] 1,000 mg (120 mg-180 mg) Capsule 1 cap PO DAILY Qty: 0 Rx Instructions: Unable to verify OTC meds at this date/time. magnesium oxide 400 mg magnesium Tablet 400 mg PO BID Qty: 0 Rx Instructions: Unable to verify OTC meds at this date/time. furosemide 40 mg tablet 40 mg PO DAILY atorvastatin 40 mg tablet 40 mg PO QAM carvedilol 12.5 mg tablet 18.75 mg PO BID citalopram 40 mg tablet 40 mg PO QAM trazodone 50 mg tablet 50 - 100 mg PO HS amiodarone 200 mg tablet 200 mg PO DAILY alendronate 70 mg tablet 70 mg PO WK clopidogrel 75 mg tablet 75 mg PO QAM levothyroxine 25 mcg tablet 25 mcg PO DAILYBB oxybutynin chloride 5 mg tablet extended release 24hr 5 mg PO DAILY gabapentin 300 mg capsule 300 mg PO TID potassium chloride [Klor-Con M10] 10 mEq tablet,ER particles/crystals 10 meq PO BID fluticasone propion-salmeterol 115-21 mcg/actuation HFA aerosol inhaler 2 puff INHALATION BID Eliquis 5 mg tablet 5 mg PO BID Referrals Referrals: Ronald Cortes MD [Primary Care Provider] -
[2023-12-06 11:17] LABS: Basophils # (auto) 0.05 K/uL (0.00-0.20); Basophils % (auto) 0.5 %; Eosinophils # (auto) 0.05 K/uL (0.00-0.50); Eosinophils % (auto) 0.5 %; Hematocrit (blood only) 39.6 % (37.0-47.0); Immature Granulocytes # (auto) 0.03 K/uL (0.01-0.20); Immature Granulocytes % (auto) 0.3 %; Lymphocytes # (auto) 1.49 K/uL (1.20-3.40); Lymphocytes % (auto) 16.2 %; Mean Corpuscular Hgb Conc 32.8 g/dL (32.0-36.0); Mean Corpuscular Volume 91.5 fL (80.0-100.0); Mean Platelet Volume 8.9 fL (9.4-12.4); Monocytes # (auto) 0.52 K/uL (0.11-0.59); Monocytes % (auto) 5.7 %; Neutrophils # (auto) 7.04 K/uL (1.40-6.50); Neutrophils % (auto) 76.8 %; Platelet Count 302 K/uL (130-400); RDW Coefficient of Variation 13.3 % (11.5-14.5); RDW Standard Deviation 45.1 fL (36.4-46.3); Red Blood Count 4.33 M/uL (4.20-5.40); White Blood Count 9.18 K/ul (4.8-10.8)
[2023-12-06] MEDS: fentaNYL citrate PF 100 MCG/2 ML VIAL IV STA (11:29)
[2023-12-06] MEDS: ONDANSETRON INJ 2 MG/ML 2 ML VIAL IV STA ×2 (11:29→16:06)
[2023-12-06 11:30] LABS: Albumin Level 3.7 gm/dl (3.4-5.0); Bilirubin,Total 0.7 mg/dl (0.2-1.0); Calcium 9.9 mg/dl (8.6-10.3); Creatinine Clr Calc Pharmacy 49.7 ml/min; Est GFR (Non-African American) 78.5 ml/min; Globulin 3.7 gm/dl (2.5-4.0); Potassium 3.2 mmol/L (3.5-5.1); Total Protein 7.4 gm/dl (6.0-8.3)
[2023-12-06] MEDS: SODIUM CHLORIDE 0.9% 1,000 ML IV ONE (11:30)
[2023-12-06 11:36] LABS: Troponin I High Sensitivity 11.2 pg/ml (0-14)
--- NOTE | 2023-12-06 11:47 | XRay Report ---
XR chest 1V portable HISTORY: Chest pain, nonspecific COMPARISON: Chest 02/07/2014. FINDINGS: No pneumothorax. No pleural effusions. The lungs are hyperexpanded with mild apical predomi nant emphysematous changes. The lungs are clear. No focal lung consolidations to suggest a pneumonia. No evidence for pulmonary edema. No acute fractures. There is metallic anchor within the right humer al head. There are old, healed right-sided rib fractures. IMPRESSION: 1. No acute process within the chest. 2. Emphysema. ACT 112: Negative or not required by law. Electronically signed by: Virgilio Briones M.D. 12/06/2023 11:46 AM
[2023-12-06] MEDS: OPTIRAY 320 100ml IV ONE (12:04)
[2023-12-06 12:55] LABS: Adenovirus PCR Not Detected (NotDetected); Bordetella parapertussis PCR Not Detected (NotDetected); Bordetella pertussis PCR Not Detected (NotDetected); Chlamydia pneumoniae PCR Not Detected (NotDetected); Coronavirus 229E PCR Not Detected (NotDetected); Coronavirus CoV-2 (COVID19)PCR Not Detected (NotDetected); Coronavirus HKU1 PCR Not Detected (NotDetected); Coronavirus NL63 PCR Not Detected (NotDetected); Coronavirus OC43PCR Not Detected (NotDetected); Human Metapneumovirus PCR Not Detected (NotDetected); Influenza A PCR Not Detected (NotDetected); Influenza B PCR Not Detected (NotDetected); Mycoplasma pneumoniae PCR Not Detected (NotDetected); Parainfluenza Virus 1 PCR Not Detected (NotDetected); Parainfluenza Virus 2 PCR Not Detected (NotDetected); Parainfluenza Virus 3 PCR Not Detected (NotDetected); Parainfluenza Virus 4 PCR Not Detected (NotDetected); Respiratory Syncytial VirusPCR Not Detected (NotDetected); Rhinovirus/Enterovirus PCR Not Detected (NotDetected)
--- NOTE | 2023-12-06 13:30 | CT Scan Report ---
ABDOMEN AND PELVIS CT WITH IV CONTRAST CT DOSE: 474.23 mGy.cm HISTORY: vomiting; abd pain TECHNIQUE: Multiaxial CT images of the abdomen and pelvis were performed following the use of intrave nous contrast. A dose lowering technique was utilized adhering to the principles of ALARA. COMPARISON STUDY: Abdomen and pelvis CT 04/22/2017. FINDINGS: Emphysema at the lung bases. No pneumoperitoneum. No pneumatosis. Levoscoliosis and degener ative changes within the lumbar spine. No acute fractures. Prior cholecystectomy. This likely account s for the mild bile duct dilatation. No hepatic or splenic masses. Mild thickening and adrenal glands . This likely represents adrenal hyperplasia. Focal coarse calcification at the pancreatic tail, unch anged. Otherwise, the pancreas enhances normally. Mild bilateral cortical renal scarring. A few bilat eral renal hypodense lesions. These favor cysts. Dominant right renal cyst measures 3.3 cm. Mild urot helial thickening within the right renal pelvis and right ureter suggestive of a mild pyelitis. No ev idence for pyelonephritis at this time. No retroperitoneal lymphadenopathy. Calcified plaque in the a bdominal aorta. There is a 3.1 cm infrarenal abdominal aortic aneurysm. No pelvic lymphadenopathy or pelvic free fluid. A few bladder diverticula. There is mild bladder wall thickening suggestive of a c ystitis. Abnormal thickening within the endometrium measuring up to 16 mm. There is a 14 mm fibroid w ithin the posterior uterine wall. Trace pelvic free fluid. Colonic diverticulosis. No evidence for ac antoine diverticulitis. No bowel wall thickening or obstruction. Normal appendix. IMPRESSION: 1. No bowel wall thickening or obstruction. 2. Normal appendix. 3. Colonic diverticulosis. No evidence for acute diverticulitis. 4. Bladder wall thickening suggestive of a cystitis. Recommend correlation with urinalysis. 5. There is also mild urothelial thickening within the right renal pelvis and right ureter. This favo rs a mild pyelitis. 6. Thickening within the endometrium measuring up to 16 mm. This is considered abnormal for a postmen opausal patient. Follow-up nonemergent gynecologic consultation recommended. 7. A 3.1 cm infrarenal abdominal aortic aneurysm. 8. Additional findings as described above. ACT 112: Negative or not required by law. Electronically signed by: Virgilio Briones M.D. 12/06/2023 1:29 PM
[2023-12-06 15:51] LABS: Appearance Urine Cloudy (Clear); Bacteria Urine Automated 4+ (None Seen); Bilirubin Urine Negative (Negative); Blood Urine Trace (Negative); Color Urine Yellow; Epithelial Cell Urine Auto 0-2 /hpf (0-2); Glucose Urine UA Negative (Negative); Ketones Urine Negative (Negative); Leukocyte Esterase Urine 3+ (Negative); Nitrite Urine Negative (Negative); Protein Urine 1+ (Negative); RBC Urine Automated 0-2 /hpf (0-2); Specific Gravity Urine 1.015 (1.000-1.030); Urobilinogen Urine Negative (Negative); WBC Urine Automated >50 /hpf (0-5); pH Urine 8.5 (4.5-7.5)
[2023-12-06] MEDS ORDERED: ALUMINUM/MAGNESIUM SUSP 30 ML UDC PO PRN (16:32)
[2023-12-06] MEDS ORDERED: MAGNESIUM HYDROXIDE SUSP 30 ML UDC PO PRN (16:32)
[2023-12-06] MEDS ORDERED: NITROGLYCERIN SL 0.4 MG/TAB TAB SL PRN (16:32)
--- NOTE | 2023-12-06 16:33 | History & Physical Report ---
Date of Service December 06, 2023 Assessment & Plan (1) Chest pain: Plan Chest pain rule out ACS: Patient coming in with chest pain that she likens to the experience prior to getting GA/stent last year per her. Pt was given aspirin enroute to hospital by EMS. Troponin x 2 negative, EKG with NSR and nonspecific ST abn. Will trend troponin, continue telemetry monitoring, EKG as needed with chest pain, nitroglycerin as needed, echo, cardiology consult. Clear liquid diet as tolerated, n.p.o. midnight until cardiology eval in AM. Likely acid peptic disease: Patient does have epigastric tenderness on exam, has nausea and vomiting. Will utilize IV PPI twice daily for now, patient might benefit from outpatient GI evaluation. Zofran as needed for nausea and vomiting. Use IVF [lasix on hold]. Replete KCL and Mg iv. Complicated UTI Right pyelitis Patient reports some subjective fever since last few days, reports pain and burning while passing urine. UA noted, follow blood and urine culture. CTAP with concern for right pyelitis and concern for cystitis. Will utilize Rocephin, add probiotic. Follow cultures. Abnormal CT abdomen pelvis at presentation: Endometrial thickening up to 16 mm, patient does not follow with gynecology as an outpatient per her. Will consult gynecology while inpatient. Infrarenal abdominal aortic aneurysm: 3.1 cm noted in CTAP, follow-up with PCP Office for long-term monitoring. Other chronic medical conditions: HLD, HTN, CAD, generalized anxiety disorder, chronic nonspecific lung disease, COPD group B --- continue/resume home meds as and when able. DVT prophylaxis: Patient on Eliquis Full code History of Present Illness Chief Complaint: Chest pain Primary Care Provider: Ronald Cortes MD 73-year-old lady with PMH of GA [February 2023], status post stent, HTN, chronic nonspecific lung disease, COPD group B, HLD, hypothyroidism, hematuria, osteoporosis, common migraine, generalized anxiety disorder, tobacco use disorder presented to the ED with complaint of chest pain. 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 Patient likens her chest pain to her experience prior to getting stent last year. Patient reports low-grade fever at home, some chills and sweating, chronic cough with whitish sputum [no increase in cough], upper mid abdominal pain since last 2 days. Patient reports pain and burning while passing urine, reports chronic diarrhea on and off, reports appetite about her usual. Patient denies prior vaginal bleeding. Patient is a current smoker, smokes about a pack a day for about 50 years, denies alcohol use, uses marijuana occasionally. Full code as per my discussion with the patient and her daughter at bedside. Medications reviewed with the patient and her daughter in detail. Plan of care discussed with them in detail, they voiced understanding and were agreeable to plan of care. Allergies Allergy/AdvReac Type Severity Reaction Status Date / Time bee venom protein (honey bee) Allergy Severe SWELLING Verified 12/06/23 12:51 SEVERE doxycycline Allergy Unknown Unknown - Unverified 12/06/23 12:51 On file w/ [facility] No Known Drug Allergies Allergy Unknown . Verified 06/02/17 11:01 Home Medications Medication Instructions Recorded Confirmed Type multivitamin 1 tab PO DAILY #0 tabs 02/07/14 12/06/23 History acetaminophen 325 mg tablet 650 mg PO Q6 PRN Pain #0 tabs 04/22/17 12/06/23 History (Tylenol) calcium carbonate 600 mg-vitamin 1 tab PO DAILY ##0 04/22/17 12/06/23 History D3 10 mcg (400 unit) tablet (Calcium 600 + D(3)) omega 5-hig-bqu-fish oil 1,000 mg 1 cap PO DAILY #0 caps 04/22/17 12/06/23 History (120 mg-180 mg) capsule (Fish Oil) magnesium oxide 400 mg PO BID #0 tabs 06/01/17 12/06/23 History alendronate 70 mg tablet 70 mg PO WK 12/06/23 12/06/23 History amiodarone 200 mg tablet 200 mg PO DAILY 12/06/23 12/06/23 History apixaban 5 mg tablet (Eliquis) 5 mg PO BID 12/06/23 12/06/23 History atorvastatin 40 mg tablet 40 mg PO QAM 12/06/23 12/06/23 History carvedilol 12.5 mg tablet 18.75 mg PO BID 12/06/23 12/06/23 History citalopram 40 mg tablet 40 mg PO QAM 12/06/23 12/06/23 History clopidogrel 75 mg tablet 75 mg PO QAM 12/06/23 12/06/23 History fluticasone propionate 115 2 puff inhalation BID 12/06/23 12/06/23 History mcg-salmeterol 21 mcg/actuation HFA inhaler furosemide 40 mg tablet 40 mg PO DAILY 12/06/23 12/06/23 History gabapentin 300 mg capsule 300 mg PO TID 12/06/23 12/06/23 History levothyroxine 25 mcg tablet 25 mcg PO DAILYBB 12/06/23 12/06/23 History oxybutynin chloride 5 mg 5 mg PO DAILY 12/06/23 12/06/23 History tablet,extended release 24 hr potassium chloride 10 mEq 10 meq PO BID 12/06/23 12/06/23 History tablet,extended release(part/cryst) (Klor-Con M) trazodone 50 mg tablet 50 - 100 mg PO HS 12/06/23 12/06/23 History Past Med/Surg History Problem List (Updated 12/06/23 @ 15:37 by Mery Pearl MD) Elevated brain natriuretic peptide (BNP) level (Acute) Nausea & vomiting (Acute) Chest pain (Acute) Asthma exacerbation (Acute) Gastroenteritis (Acute) Fall in home (Acute) CHI (closed head injury) (Acute) Scalp laceration (Acute) Facial laceration (Acute) Heart disease HTN (hypertension) Kidney disease Diabetes (Chronic) Bronchitis Fall in home (Acute) Hyponatremia (Acute) Hypokalemia (Acute) Abdominal pain Diarrhea Vomiting Social History Smoking Status: Former smoker Tobacco Type: Cigarettes Preferred Language: Citizen Of [place] Feels Safe at Home: Yes Review of Systems Review of Systems: Negative otherwise mentioned in HPI. Physical Exam Physical Exam: GENERAL: Alert and oriented x3. NAD, on 2L NC O2, appears ill/frail/weak/sick. HEENT: No pallor, no icterus. Pupils equal, round and reactive to light. Oral mucosa moist. NECK: No JVD, no neck masses. HEART: S1 and S2 heard. Regular rate and rhythm. No murmur, no gallop. RESPIRATORY SYSTEM: Normal AP diameter. No accessory muscle use. No wheezing, no crackles. ABDOMEN: Soft, bowel sounds present, epigastric tender, no distention. CENTRAL NERVOUS SYSTEM: No facial droop. Speech is clear. Obeys simple commands. Moves extremities. EXTREMITIES: No edema, no erythema seen. Results & Data Results & Data Vital Signs (Past 12 Hours) Vital Signs Temp Pulse Pulse Resp BP BP Pulse Ox 12/06/23 15:16 66 12/06/23 15:00 63 15 162/86 H 97 12/06/23 14:30 65 16 179/104 H 97 12/06/23 14:00 64 14 173/102 H 96 12/06/23 12:30 67 15 164/84 H 97 12/06/23 12:00 66 14 178/97 H 95 12/06/23 11:29 63 21 150/95 H 97 12/06/23 10:52 69 22 96 12/06/23 10:47 71 12/06/23 10:44 37.1 C 69 22 194/104 H 96 12/06/23 10:44 96 12/06/23 10:44 37.1 C 70 22 194/104 H 96 12/06/23 10:44 O2 Del Method O2 Flow Rate 12/06/23 15:16 12/06/23 15:00 Room Air 12/06/23 14:30 Room Air 12/06/23 14:00 Nasal Cannula 2 12/06/23 12:30 Nasal Cannula 2 12/06/23 12:00 Nasal Cannula 2 12/06/23 11:29 Nasal Cannula 2 12/06/23 10:52 Nasal Cannula 2 12/06/23 10:47 12/06/23 10:44 Nasal Cannula 2 12/06/23 10:44 Nasal Cannula 2 12/06/23 10:44 Nasal Cannula 2 12/06/23 10:44 Nasal Cannula 2
[2023-12-06] MEDS: cefTRIAXone SODIUM 2,000 MG/50 ML BAG IV SCH (16:59)
[2023-12-06] MEDS: PANTOprazole 40 MG in SYRINGE 0 ML IV SCH (16:59)
[2023-12-06] MEDS: MAGNESIUM SULFATE / D5W 1 GM/100 ML BAG IV ONE (17:50)
[2023-12-06] MEDS: POTASSIUM CHLORIDE / WTR 10 MEQ/100 ML PLCT IV SCH (17:50)
[2023-12-06] MEDS: SODIUM CHLORIDE 0.9% 1,000 ML IV SCH (19:31)
[2023-12-06] MEDS: ONDANSETRON INJ 2 MG/ML 2 ML VIAL IV PRN (20:10)
[2023-12-06] MEDS: POTASSIUM CHLORIDE 10 MEQ TABCR PO SCH (21:27)
[2023-12-06] MEDS: APIXABAN 5 MG TABLET PO SCH (21:28)
[2023-12-06] MEDS: MAGNESIUM OXIDE 400 MG TAB PO SCH (21:29)
[2023-12-06] MEDS: carvediloL 6.25 MG TAB PO SCH (21:29)
[2023-12-06] MEDS: GABAPENTIN 300 MG CAP PO SCH (21:30)
[2023-12-06] MEDS: FLUTICASONE/VILANTEROL 200/25MCG 14 PUFFS/INHALER INH SCH (21:31)
--- NOTE | 2023-12-06 21:34 | OB/GYN Consultation ---
Date of Consultation December 06, 2023 Assessment & Plan (1) Thickened endometrium: Plan frail 73 yo PM female with incidentally discovered 14mm endometrium on CT. If the patient desires further f/u of this, it can be accomplished in the office. Discussed with her the potential causes--polyp or more concerning precancer/cancer of the endometrium. Discussed that the workup would consist of ultrasound in the office and then potentially an endometrial biopsy, saline infusion sonogram or potentially D&C. Discussed if cancer, treatment would most likely be hysterectomy. Nothing else on the CT scan of concern noted as far as the uterus or ovaries. Discussed delay of diagnosis could result in bleeding and metastatic disease if cancer. Discussed if benign polyp, may never experience any symptoms or complications. Patient seems reluctant to pursue any further w/u at this time. She would likely not chose surgery for either evaluation or treatment at this stage of her life. I believe the patient understood what I was telling her and the implications of no further f/u. The patient should be provided with my name and office contact so that she can reach out to set up an appointment once she is discharged from the hospital if she desires. I will personally reach out in a few weeks if she has not followed in the office. Would be happy to speak to any of her family as needed. Thank you for this consult. Will sign off at this point, but please call if anything additionally needed. History of Present Illness Reason for Consultation: thickened endometrium Requesting Physician: Peter Attending Physician: Dustin Green MD History of Present Illness Patient is a frail, 73yow, PM, who presented to the hospital today with chest pain and nausea. She has a complicated medical history with DM, hx of [place], HTN, CHF, hypothyroidism, paroxismal a fib. She has not seen a echo vascular technologist in probably 50 years. As part of her work up today, she had a CT scan where a thickened endometrium of 14mm was discovered. I am being consulted for this. Patient does not remember the age of menarche. She has had two uncomplicated pregnancies and two vaginal deliveries. She had a TL when she was 19yo. She notes she stopped having periods around age 29 after a CCX. She notes she has had no VB since that time and currently denies vaginal bleeding. She has been a for 49 years and has not been sexually active in all of that time. She notes no pelvic pain or discomfort. She notes she does not remember having an abnl pap in the past. She notes no family hx of breast/ov/utx cancers. She notes her father had brain cancer, her GF had lung cancerr and her mother had stomach cancer. She notes a hx of CCx, tubal litation and heart surgery She is a many year smokes and still smokes "occasionally". She denies etoh use. She notes a daughter of complications of alcoholism. Allergies Allergy/AdvReac Type Severity Reaction Status Date / Time bee venom protein (honey bee) Allergy Severe SWELLING Verified 12/06/23 12:51 SEVERE doxycycline Allergy Unknown Unknown - Unverified 12/06/23 12:51 On file w/ [facility] No Known Drug Allergies Allergy Unknown . Verified 06/02/17 11:01 Home Medications Medication Instructions Recorded Confirmed Type multivitamin 1 tab PO DAILY #0 tabs 02/07/14 12/06/23 History acetaminophen 325 mg tablet 650 mg PO Q6 PRN Pain #0 tabs 04/22/17 12/06/23 History (Tylenol) calcium carbonate 600 mg-vitamin 1 tab PO DAILY ##0 04/22/17 12/06/23 History D3 10 mcg (400 unit) tablet (Calcium 600 + D(3)) omega 3-kil-kkd-fish oil 1,000 mg 1 cap PO DAILY #0 caps 04/22/17 12/06/23 History (120 mg-180 mg) capsule (Fish Oil) magnesium oxide 400 mg PO BID #0 tabs 06/01/17 12/06/23 History alendronate 70 mg tablet 70 mg PO WK 12/06/23 12/06/23 History amiodarone 200 mg tablet 200 mg PO DAILY 12/06/23 12/06/23 History apixaban 5 mg tablet (Eliquis) 5 mg PO BID 12/06/23 12/06/23 History atorvastatin 40 mg tablet 40 mg PO QAM 12/06/23 12/06/23 History carvedilol 12.5 mg tablet 18.75 mg PO BID 12/06/23 12/06/23 History citalopram 40 mg tablet 40 mg PO QAM 12/06/23 12/06/23 History clopidogrel 75 mg tablet 75 mg PO QAM 12/06/23 12/06/23 History fluticasone propionate 115 2 puff inhalation BID 12/06/23 12/06/23 History mcg-salmeterol 21 mcg/actuation HFA inhaler furosemide 40 mg tablet 40 mg PO DAILY 12/06/23 12/06/23 History gabapentin 300 mg capsule 300 mg PO TID 12/06/23 12/06/23 History levothyroxine 25 mcg tablet 25 mcg PO DAILYBB 12/06/23 12/06/23 History oxybutynin chloride 5 mg 5 mg PO DAILY 12/06/23 12/06/23 History tablet,extended release 24 hr potassium chloride 10 mEq 10 meq PO BID 12/06/23 12/06/23 History tablet,extended release(part/cryst) (Klor-Con M) trazodone 50 mg tablet 50 - 100 mg PO HS 12/06/23 12/06/23 History Patient History Medical History (Updated 12/06/23 @ 21:26 by Aisha Esparza MD, FACOG) Macular degeneration Asthma Tobacco use disorder Coronary atherosclerosis of [place] coronary vessel Benign hypertension Atrial fibrillation Diabetes Surgical History (Updated 12/06/23 @ 21:25 by Aisha Esparza MD, FACOG) H/O heart surgery History of cholecystectomy Hx of tubal ligation Social History Smoking Status: Former smoker Tobacco Type: Cigarettes Second Hand Exposure: No; Do You Dip or Chew Tobacco: No; Tobacco Cessation Education Requested by Patient: No Hx Alcohol Use: No Hx Substance Use: Yes Preferred Language: Czech Communication Ability: Effective Distribution Engineer Required: No Beliefs That Will Affect Care: None Current Living Situation: Family Current Living Situation Comment: Lives with Daughter Other Information That Helps Us Care for You: No Feels Safe at Home: Yes Safety Concerns: Feels Safe At This Time Assistive Devices: Cane, Denture - Upper, Denture - Lower, Oxygen - at Night, Walker and Wheelchair Assistive Devices Comment: pt wears oxygen at night but also with activity Physical Exam Constitutional: WD/WN, vitals as above Psychiatric: A+Ox3, euthymic affect Results & Data Vital Signs (Past 12 Hours) Vital Signs Temp Pulse Pulse Resp BP BP Pulse Ox 12/06/23 20:28 36.8 C 67 20 187/89 H 97 12/06/23 20:00 12/06/23 19:29 36.8 C 67 20 187/89 H 97 12/06/23 18:30 65 15 168/81 H 97 12/06/23 18:08 12/06/23 18:03 64 13 97 12/06/23 18:00 152/82 H 12/06/23 17:30 70 21 185/103 H 95 12/06/23 17:00 62 16 176/104 H 96 12/06/23 15:16 66 12/06/23 15:00 63 15 162/86 H 97 12/06/23 14:30 65 16 179/104 H 97 12/06/23 14:00 64 14 173/102 H 96 12/06/23 12:30 67 15 164/84 H 97 12/06/23 12:00 66 14 178/97 H 95 12/06/23 11:29 63 21 150/95 H 97 12/06/23 10:52 69 22 96 12/06/23 10:47 71 12/06/23 10:44 37.1 C 69 22 194/104 H 96 12/06/23 10:44 96 12/06/23 10:44 37.1 C 70 22 194/104 H 96 12/06/23 10:44 O2 Del Method O2 Flow Rate 12/06/23 20:28 Nasal Cannula 2 12/06/23 20:00 Nasal Cannula 2 12/06/23 19:29 Nasal Cannula 2 12/06/23 18:30 Nasal Cannula 2 12/06/23 18:08 Room Air 12/06/23 18:03 Room Air 12/06/23 18:00 12/06/23 17:30 Nasal Cannula 2 12/06/23 17:00 Nasal Cannula 2 12/06/23 15:16 12/06/23 15:00 Room Air 12/06/23 14:30 Room Air 12/06/23 14:00 Nasal Cannula 2 12/06/23 12:30 Nasal Cannula 2 12/06/23 12:00 Nasal Cannula 2 12/06/23 11:29 Nasal Cannula 2 12/06/23 10:52 Nasal Cannula 2 12/06/23 10:47 12/06/23 10:44 Nasal Cannula 2 12/06/23 10:44 Nasal Cannula 2 12/06/23 10:44 Nasal Cannula 2 12/06/23 10:44 Nasal Cannula 2 PG Care Time/CCT Total # of Minutes Spent Total Time Spent with Patient: Total time spent is greater than 50% in coordination of care (as documented) at patient's floor/unit and/or counseling patient: Coding Level of Care Code 62051 INT INP/OBS CARE MIN Diagnoses Thickened endometrium R93.89
[2023-12-06] MEDS: traZODone HCL 50 MG TAB PO SCH (21:40)
[2023-12-07] MEDS: LEVOTHYROXINE SODIUM 25 MCG TABLET PO SCH (05:48)
[2023-12-07 06:33] LABS: Hemoglobin 10.8 g/dl (12.0-16.0); Mean Corpuscular Hemoglobin 30.2 pg (25.0-34.0); Mean Corpuscular Hgb Conc 32.7 g/dL (32.0-36.0); Mean Corpuscular Volume 92.2 fL (80.0-100.0); Platelet Count 231 K/uL (130-400); RDW Coefficient of Variation 13.5 % (11.5-14.5); RDW Standard Deviation 46.1 fL (36.4-46.3); Red Blood Count 3.58 M/uL (4.20-5.40)
[2023-12-07 06:50] LABS: BUN Creatinine Ratio 11.6 (10-20); Calcium 7.7 mg/dl (8.6-10.3); Est GFR (African American) 99.4 ml/min; Est GFR (Non-African American) 85.8 ml/min; Phosphorus 2.5 mg/dl (2.5-4.9); Potassium 2.9 mmol/L (3.5-5.1)
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
[2023-12-07] MEDS: MULTIVITAMIN TAB PO SCH (09:23)
[2023-12-07] MEDS: ADVANCED PROBIOTIC 625 MG CAPSULE PO SCH (09:23)
[2023-12-07] MEDS: CITALOPRAM 40 MG TAB PO SCH (09:23)
[2023-12-07] MEDS: ATORVASTATIN 40 MG TAB PO SCH (09:23)
[2023-12-07] MEDS: CLOPIDOGREL BISULFATE 75 MG TAB PO SCH (09:23)
[2023-12-07] MEDS: OXYBUTYNIN CHLORIDE XL 5 MG TABCR PO SCH (09:23)
[2023-12-07] MEDS: AMIODARONE 200 MG TAB PO SCH (09:24)
[2023-12-07] MEDS: POTASSIUM CHLORIDE CRTAB 20 MEQ TABCR PO ONE (10:15)
--- NOTE | 2023-12-07 10:58 | Gastrointestinal Consultation ---
Date of Consultation December 07, 2023 Assessment & Plan (1) Nausea & vomiting: (2) Abdominal pain: Plan Patient is a 73 year old female admitted with chest pain, she seems to also have abdominal pain, as well as ongoing issues with nausea, vomiting, acid reflux. she stopped her PPI as outpatient and does admit to nsaid use. she had a drop in her hgb but has not had any signs of GI bleeding at this time. - continue to follow hgb/hct, tranfuse as needed. - continue with protonix 40mg IV BID. - we discussed EGD to further evaluate her symptoms, but she tells me she is not interested in any invasive GI testing. she prefers to see how she does with just addition of PPI. - I discussed with the patient that she should avoid nsaids given her use of plavix/eliquis. - advised continued smoking cessation. Supervising Physician Co-Signing Physician Notes I saw and examined this patient with our nurse practitioner and agree with her assessment and plan. On physical exam she has some mild epigastric tenderness. CT scan imaging was unrevealing. Suspect this could be more musculoskeletal in etiology. There is no overt GI blood loss documented. He is hemodynamically stable. She has a longstanding history of chronic dyspeptic symptoms which may be contributing factor. At the present time she is reluctant to pursue an endoscopic evaluation until she has a trial of a proton pump inhibitor. She claims her symptoms have been improving. Is only she improves and her hemoglobin remained stable she can follow-up as an outpatient. If symptoms persist we could reassess the need for an endoscopy at that time. History of Present Illness Reason for Consultation: epigastric pain, nausea, ? GIB Requesting Physician: Rogers Burnham MD Attending Physician: Rogers Burnham MD History of Present Illness Patient is a 73 year old female with a past medical history of OR in February 2023 status post stent x2, HTN, chronic nonspecific lung disease, A fib on eliquis, COPD group B, HLD, hypothyroidism, hematuria, osteoporosis, common migraine, generalized anxiety disorder, tobacco use disorder presented to the ED with complaint of chest pain on 12/06/23. She tells me that she has had issue with chest pain on and off since her OR in February 2023. She also reports regular issues with nausea, vomiting, and heartburn. She was using omeprazole as an outpatient for sometime but stopped it due to "seeing something on television" that told her to stop. She also reports using ibuprofen off and on as needed for body aches. she tells me she may use this once every few weeks. Her bowels are predominantly loose and she tells me she will move her bowels once every few days. she tells me stools are brown in color. she denies any blood in the stools or melena. she has not moved her bowels since admission. she tells me this is her baseline with her bowel movements. she was a recent tobacco user until recently. she tells me she quits on and off but has a long history of tobacco use. she has not had an egd in the past per patient. last colonoscopy was done a few years ago with Steffen but she is unaware of results. 12/06/23 hgb 13. 8//gb 10.8. Allergies Allergy/AdvReac Type Severity Reaction Status Date / Time bee venom protein (honey bee) Allergy Severe SWELLING Verified 12/06/23 12:51 SEVERE doxycycline Allergy Unknown Unknown - Unverified 12/06/23 12:51 On file w/ [facility] No Known Drug Allergies Allergy Unknown . Verified 06/02/17 11:01 Home Medications Medication Instructions Recorded Confirmed Type multivitamin 1 tab PO DAILY #0 tabs 02/07/14 12/06/23 History acetaminophen 325 mg tablet 650 mg PO Q6 PRN Pain #0 tabs 04/22/17 12/06/23 History (Tylenol) calcium carbonate 600 mg-vitamin 1 tab PO DAILY ##0 04/22/17 12/06/23 History D3 10 mcg (400 unit) tablet (Calcium 600 + D(3)) omega 9-hai-bhn-fish oil 1,000 mg 1 cap PO DAILY #0 caps 04/22/17 12/06/23 History (120 mg-180 mg) capsule (Fish Oil) magnesium oxide 400 mg PO BID #0 tabs 06/01/17 12/06/23 History alendronate 70 mg tablet 70 mg PO WK 12/06/23 12/06/23 History amiodarone 200 mg tablet 200 mg PO DAILY 12/06/23 12/06/23 History apixaban 5 mg tablet (Eliquis) 5 mg PO BID 12/06/23 12/06/23 History atorvastatin 40 mg tablet 40 mg PO QAM 12/06/23 12/06/23 History carvedilol 12.5 mg tablet 18.75 mg PO BID 12/06/23 12/06/23 History citalopram 40 mg tablet 40 mg PO QAM 12/06/23 12/06/23 History clopidogrel 75 mg tablet 75 mg PO QAM 12/06/23 12/06/23 History fluticasone propionate 115 2 puff inhalation BID 12/06/23 12/06/23 History mcg-salmeterol 21 mcg/actuation HFA inhaler furosemide 40 mg tablet 40 mg PO DAILY 12/06/23 12/06/23 History gabapentin 300 mg capsule 300 mg PO TID 12/06/23 12/06/23 History levothyroxine 25 mcg tablet 25 mcg PO DAILYBB 12/06/23 12/06/23 History oxybutynin chloride 5 mg 5 mg PO DAILY 12/06/23 12/06/23 History tablet,extended release 24 hr potassium chloride 10 mEq 10 meq PO BID 12/06/23 12/06/23 History tablet,extended release(part/cryst) (Klor-Con M) trazodone 50 mg tablet 50 - 100 mg PO HS 12/06/23 12/06/23 History Patient History Medical History Macular degeneration Asthma Tobacco use disorder Coronary atherosclerosis of jamul coronary vessel Benign hypertension Atrial fibrillation Diabetes Surgical History H/O heart surgery History of cholecystectomy Hx of tubal ligation Social History Smoking Status: Former smoker Tobacco Type: Cigarettes Second Hand Exposure: No; Do You Dip or Chew Tobacco: No; Tobacco Cessation Education Requested by Patient: No Hx Alcohol Use: No Hx Substance Use: Yes Preferred Language: Romansh Communication Ability: Effective Sales Advisor Required: No Beliefs That Will Affect Care: None Current Living Situation: Family Current Living Situation Comment: Lives with Daughter Other Information That Helps Us Care for You: No Feels Safe at Home: Yes Safety Concerns: Feels Safe At This Time Assistive Devices: Cane, Walker and Wheelchair Assistive Devices Comment: pt wears oxygen at night but also with activity Review of Systems Review of Systems: All systems reviewed & are unremarkable except as noted in HPI & below Physical Exam Constitutional: WD/WN, vitals as above Respiratory: wheezes throughout. Cardiovascular: Rate/Rhythm: regular rate and regular rhythm Gastrointestinal (Abdomen): mid epigastric tenderness to palpation, no guarding, soft, normal bowel sounds. Psychiatric: Orientation: alert and oriented x 3 Affect: euthymic affect Results & Data Vital Signs (Past 12 Hours) Vital Signs Temp Pulse Pulse Resp BP Pulse Ox O2 Del Method 12/07/23 09:39 Nasal Cannula 12/07/23 07:28 98.1 F 57 L 19 145/74 H 95 Nasal Cannula 12/07/23 07:17 60 12/07/23 03:45 98.4 F 58 L 16 109/67 100 Nasal Cannula 12/07/23 00:12 98.4 F 63 21 140/81 96 Nasal Cannula O2 Flow Rate 12/07/23 09:39 2 12/07/23 07:28 2 12/07/23 07:17 12/07/23 03:45 2 12/07/23 00:12 2 Coding Level of Care Code 57474 INT INP/OBS CARE 2/55MIN Diagnoses Nausea & vomiting R11.2 Abdominal pain R10.9
[2023-12-07 13:10] LABS: Hematocrit (blood only) 39.7 % (37.0-47.0); Hemoglobin 12.6 g/dl (12.0-16.0)
--- NOTE | 2023-12-07 17:50 | Hospitalist Progress Note ---
Date of Service December 07, 2023 delayed entry date of service noted above Assessment & Plan (1) Chest pain: Plan per admitting notes with addendum: Chest pain, rule out ACS: Patient coming in with chest pain that she likens to the experience prior to ge tting VT/stent last year per her. Pt was given aspirin enroute to hospital by EMS. Troponin x 2 negative, EKG with NSR and nonspecific ST abn. Will trend troponin, continue telemetry monitoring, EKG as needed with chest pain, nitroglycerin as needed, echo, cardiology consult. Clear liquid diet as tolerated, n.p.o. midnight until cardiology eval in AM. 12/06 chest pain ruled out Likely acid peptic disease: Patient does have epigastric tenderness on exam, has nausea and vomiting. Will utilize IV PPI twice daily for now, patient might benefit from outpatient GI evaluation. Zofran as needed for nausea and vomiting. Use IVF [lasix on hold]. Replete KCL and Mg iv. GI Consulted Complicated UTI Right pyelitis Patient reports some subjective fever since last few days, reports pain and burning while passing urine. UA noted, follow blood and urine culture. CTAP with concern for right pyelitis and concern for cystitis. Will utilize Rocephin, add probiotic. Follow cultures. 12/[address] abdomen pelvis at presentation: Endometrial thickening up to 16 mm, patient does not follow with gynecology as an outpatient per her. Will consult gynecology while inpatient. Infrarenal abdominal aortic aneurysm: 3.1 cm noted in CTAP, follow-up with PCP Office for long-term monitoring. Other chronic medical conditions: HLD, HTN, CAD, generalized anxiety disorder, chronic nonspecific lung disease, COPD group B --- continue/resume home meds as and when able. DVT prophylaxis: Patient on Eliquis Full code Admission and Anticipated Discharge Date Admission Date: December 06, 2023 Subjective ff up for abdominal, chest pain, etc seen resting in bed, comfortable states she feels fine overall in good spirits denies chest pain,abdominal pain, shortness of breath, palpitations, dizziness, nausea requesting diet no other symptoms Review of Systems Review of Systems: all noted and negative except for above Physical Exam Physical Exam: General- oriented x 3, not in distress, speaks in sentences with no effort or accessory muscle use Eyes- anicteric Neck- no JVD Lungs- clear breath sounds bilaterally, no crackles/wheezing Heart- normal rate, regular rhythm; no murmurs Abdomen- normal bowel sounds, nondistended, soft, no tenderness Extremities- no pretibial edema, no calf tenderness Neuro- alert, oriented x 3; no gross focal neurologic deficits Skin- warm & dry Results & Data Results & Data Vital Signs (Past 12 Hours) Vital Signs Temp Pulse Pulse Resp BP Pulse Ox O2 Del Method 12/07/23 15:34 37.2 C 62 18 157/83 H 93 Nasal Cannula 12/07/23 14:26 59 L 12/07/23 11:34 36.7 C 64 19 180/106 H 95 Nasal Cannula 12/07/23 09:39 Nasal Cannula 12/07/23 07:28 36.7 C 57 L 19 145/74 H 95 Nasal Cannula 12/07/23 07:17 60 O2 Flow Rate 12/07/23 15:34 2 12/07/23 14:26 12/07/23 11:34 2 12/07/23 09:39 2 12/07/23 07:28 2 12/07/23 07:17 all noted and reviewed including below
[2023-12-07] MEDS: ACETAMINOPHEN 325 MG TAB PO PRN (22:40)
[2023-12-08 07:51] LABS: Basophils # (auto) 0.04 K/uL (0.00-0.20); Basophils % (auto) 0.7 %; Eosinophils # (auto) 0.25 K/uL (0.00-0.50); Eosinophils % (auto) 4.2 %; Hematocrit (blood only) 37.7 % (37.0-47.0); Hemoglobin 12.1 g/dl (12.0-16.0); Immature Granulocytes # (auto) 0.08 K/uL (0.01-0.20); Immature Granulocytes % (auto) 1.3 %; Lymphocytes # (auto) 1.55 K/uL (1.20-3.40); Lymphocytes % (auto) 26.1 %; Mean Corpuscular Hemoglobin 30.2 pg (25.0-34.0); Mean Corpuscular Hgb Conc 32.1 g/dL (32.0-36.0); Mean Platelet Volume 9.1 fL (9.4-12.4); Monocytes # (auto) 0.64 K/uL (0.11-0.59); Monocytes % (auto) 10.8 %; Neutrophils # (auto) 3.37 K/uL (1.40-6.50); Neutrophils % (auto) 56.9 %; Platelet Count 231 K/uL (130-400); RDW Coefficient of Variation 13.3 % (11.5-14.5); RDW Standard Deviation 46.2 fL (36.4-46.3); Red Blood Count 4.01 M/uL (4.20-5.40); White Blood Count 5.93 K/ul (4.8-10.8)
[2023-12-08 08:09] LABS: BUN Creatinine Ratio 5.5 (10-20); Calcium 8.1 mg/dl (8.6-10.3); Est GFR (Non-African American) 81.1 ml/min; Potassium 3.1 mmol/L (3.5-5.1)
[2023-12-08] MEDS: LOSARTAN POTASSIUM 25 MG TAB PO SCH (08:32)
--- NOTE | 2023-12-08 10:11 | Gastroenterology Progress Note ---
Date of Service December 08, 2023 Assessment & Plan (1) Nausea & vomiting: (2) Abdominal pain: Plan Patient is a 73 year old female admitted with chest pain, she did have abdominal pain, as well as ongoing issues with nausea, vomiting, acid reflux. she has not any further issues since admission per patient. - continue to follow hgb/hct, tranfuse as needed. - continue with protonix 40mg IV BID. I discussed with the patient that she should remain on PPI as outpatient (she had previously stopped). - she is still not interested in any EGD or invasive testing. - okay to advance diet as tolerated. - I discussed with the patient that she should avoid nsaids in the future given her use of plavix/eliquis. - advised continued smoking cessation. Admission and Anticipated Discharge Date Admission Date: December 06, 2023 Supervising Physician Co-Signing Physician Notes I saw and examined this patient with our nurse practitioner and agree with her assessment and plan. Clinically improving less abdominal pain no nausea no vomiting. Recommend advancing her diet as tolerated. Continue PPI. Subjective Patient is feeling much improved today. no abdominal pain, nausea, or vomiting. she had a bowel movements today that was reportedly dark brown. no blood or melena noted. hgb improved to 12.6 today. (previously 10.8). she is requesting an advancement. Review of Systems Review of Systems: All systems reviewed & are unremarkable except as noted in HPI & below Physical Exam Constitutional: WD/WN, vitals as above Respiratory: normal respiratory effort, lungs clear to auscultation Cardiovascular: Rate/Rhythm: regular rate and regular rhythm Gastrointestinal (Abdomen): normal bowel sounds, soft, nontender, no hepatosplenomegaly Psychiatric: Orientation: alert and oriented x 3 Affect: euthymic affect Results & Data Results & Data Vital Signs (Past 12 Hours) Vital Signs Temp Pulse Pulse Resp BP BP Pulse Ox 12/08/23 09:51 12/08/23 07:56 97.5 F L 76 18 139/61 96 12/08/23 07:08 64 12/08/23 03:39 98.2 F 71 18 145/85 H 96 12/07/23 22:52 98.1 F 70 19 154/97 H 97 O2 Del Method O2 Flow Rate 12/08/23 09:51 Nasal Cannula 2 12/08/23 07:56 Nasal Cannula 3 12/08/23 07:08 08/27/24 03:39 Nasal Cannula 2 12/07/23 22:52 Nasal Cannula 2 Coding Level of Care Code 42560 SUB INP/OBS CARE /25MIN Diagnoses Nausea & vomiting R11.2 Abdominal pain R10.9
--- NOTE | 2023-12-08 10:38 | Cardiology Progress Note ---
Date of Service December 08, 2023 Assessment & Plan (1) Chest pain at rest: (2) Uncontrolled hypertension: (3) ASCVD (arteriosclerotic cardiovascular disease): (4) PAF (paroxysmal atrial fibrillation): (5) Dyslipidemia, goal LDL below 70: (6) COPD (chronic obstructive pulmonary disease): (7) Absent pedal pulses: Plan Epigastric pain. Atypical of cardiac etiology, reproducible with palpation. General measures advised. Further evaluation as per Hospitalist. Uncontrolled hypertension, longstanding history of hypertension reported by patient. Low dose Losartan added with improvement. Trial low dose spironolactone today. Paroxysmal atrial fibrillation. Patient asymptomatic, and compensated. Amiodarone discontinued, risks felt to be greater then benefit noting underlying lung disease. Continue rate control with beta-zaki therapy. Resume apixaban (Eliquis) anticoagulation. ASCVD. Status post PCI of the RCA in February 2023. EKG without acute change. High-sensitivity troponin negative x 4. Chest x-ray clear. Resting echocardiogram with preserved LV systolic function without wall motion abnormality. Continue clopidogrel, carvedilol, moderate intensity statin therapy, and ARB as above. Dyslipidemia. Continue moderate intensity statin therapy with atorvastatin 40 mg/day COPD. Chronic hypoxic respiratory failure. Chronic tobacco abuse. Cessation mandated. Suspected bilateral lower extremity peripheral arterial disease. Asymptomatic. Smoking cessation mandated. Continue antiplatelet and statin. Consider further evaluation as an outpatient. Admission and Anticipated Discharge Date Admission Date: December 06, 2023 Supervising Physician Co-Signing Physician Notes Attending attestation: Case reviewed with the advanced practitioner. I have personally performed a history and physical examination on the patient. I have reviewed the advanced practitioner's documentation on the date of service referenced in note, and I agree with, and take responsibility for the plan of care. Patient tells me her epigastric discomfort is improved. She is eager to stop at [employer] when discharged for a gage cheese burger. Hgb stable. Eliquis re-initiated due to observation of asymptomatic atrial fibrillation with controlled ventricular rate. She is on clopidogrel given coronary stent. GI input noted and appreciated. Agree with Protonix. DVT prophylaxis: fully anticoagulated with Eliquis. Pepe Lennon, Subjective Patient seen and examined. Chart, medications, and telemetry reviewed. Feeling better overall. No chest pain. No palpitations. No new or worsening shortness of breath. Patient unaware of recurrent rate controlled atrial fibrillation that was observed on telemetry at 19:05 on December 07, 2023 Brown liquid bowel movement this a.m. Blood pressures improved. Ongoing hypokalemia noted. Review of Systems Review of Systems: Complete review of systems is otherwise as stated above, negative, or noncontri butory Physical Exam Physical Exam: General: A&Ox3. NAD. HENT: Hoarse voice. Normocephalic. Atraumatic. Mouth: Top and bottom dentures. + Thrush. Eyes: PER. Conjunctiva pink, sclera clear. Neck: Carotid bruits. No JVD. Heart: Distant heart sounds. Irregularly irregular at 74 bpm. Grade I-II/ s ystolic murmur. No diastolic murmur. Lungs: Diminished. Decreased. Scattered rhonchi. No wheeze. Abdomen: +BS. Soft. + Epigastric tenderness. No masses or organomegaly. Extremities: No clubbing, cyanosis, or edema. Limited neurological examination is without focal deficits. Pulses: radial=2/4, posterior tibial=0/4, dorsalis pedis pulses 0/4. Results & Data Vital Signs (Past 12 Hours) Vital Signs Temp Pulse Pulse Resp BP BP Pulse Ox 12/08/23 09:51 12/08/23 07:56 36.4 C L 76 18 139/61 96 12/08/23 07:08 64 12/08/23 03:39 36.8 C 71 18 145/85 H 96 12/07/23 22:52 36.7 C 70 19 154/97 H 97 O2 Del Method O2 Flow Rate 12/08/23 09:51 Nasal Cannula 2 12/08/23 07:56 Nasal Cannula 3 12/08/23 07:08 12/08/23 03:39 Nasal Cannula 2 12/07/23 22:52 Nasal Cannula 2 Laboratory Results CBC 12/07/23 12/08/23 Range/Units 12:17 07:28 WBC 5.93 (4.8-10.8) K/ul RBC 4.01 L (4.20-5.40) M/uL Hgb 12.6 12.1 (12.0-16.0) g/dl Hct 39.7 37.7 (37.0-47.0) % Plt Count 231 (130-400) K/uL Neut # (Auto) 3.37 (1.40-6.50) K/uL Lymph # (Auto) 1.55 (1.20-3.40) K/uL [place] # (Auto) 0.64 H (0.11-0.59) K/uL Eos # (Auto) 0.25 (0.00-0.50) K/uL Baso # (Auto) 0.04 (0.00-0.20) K/uL Comprehensive Metabolic Panel 12/08/23 Range/Units 07:28 Sodium 140 (136-145) mmol/L Potassium 3.1 L (3.5-5.1) mmol/L Chloride 99 (98-107) mmol/L Carbon Dioxide 38 H (21-32) mmol/L BUN 4 L (6-23) mg/dl Creatinine 0.73 (0.6-1.2) mg/dl Glucose 98 (70-99(Fasting)) mg/dl Calcium 8.1 L (8.6-10.3) mg/dl Intake and Output 12/07/23 12/08/23 12/08/23 22:59 06:59 14:59 Intake Total 1290 / 1890 240 / 1890 Output Total 1250 / 1900 250 / 1900 Balance 40 / -10 -10 / -10 - Intake: IV 1050 / 1050 Sodium Chloride 0.9% 1,000 ml @ 1000 / 1000 75 mls/hr IV .[id number] [facility] Rx#: [id number] cefTRIAXone SODIUM 2,000 mg In 50 / 50 50 ml @ 100 mls/hr IV Q24H [facility] Rx#:[id number] Oral 240 / 840 240 / 840 Output: Urine Amount (Catheter) 1250 / 1900 250 / 1900 External 1250 / 1900 250 / 1900 # Bowel Movements Other: Weight 53.4 kg Weight Measurement Method Built in [facility] Diagnostic Findings Hemoglobin 12.1 g/dL this AM December 07, 2023 TTE Interpretation Summary (TRENT VASQUEZ, Dr. Lennon): Mild concentric LVH. Normal LV wall motion. Normal LV systolic function. EF 55 to 60%. Mild aortic valve sclerosis without significant stenosis. Mild tricuspid regurgitation. PASP mildly elevated at 43 mmHg. December 08, 2023 EKG: Atrial fibrillation with a ventricular rate of 65 bpm. Telemetry: Patient lapsed into rate control atrial fibrillation on December 07, 2023 at 19:05, heart rates predominantly ranging from 60 to 80 bpm
[2023-12-08] MEDS: POTASSIUM CHLORIDE CRTAB 20 MEQ TABCR PO STA (11:01)
[2023-12-08] MEDS: SPIRONOLACTONE 12.5 MG TAB PO SCH (11:50)
--- NOTE | 2023-12-08 15:33 | Hospitalist Progress Note ---
Date of Service December 08, 2023 Assessment & Plan (1) Chest pain: Plan Chest pain Acute Coronary Syndrome ruled out Patient coming in with chest pain that she likens to the experience prior to getting [place]/stent last year per her. Pt was given aspirin enroute to hospital by EMS. Troponin x 3 negative, EKG with NSR and nonspecific ST abnormalities Echo: mild concentric LVH, left ventricular wall motion is normal, EF 55-60%, pulmonary artery systolic pressure mildly elevated Cardiology service consulted Losartan added for blood pressure control Low-dose spironolactone also added Continue usual Plavix, carvedilol, statin Paroxysmal atrial fibrillation Amiodarone discontinued, risks felt to be greater than benefit noting underlying lung disease Resume beta-zaki, apixaban Suspected bilateral lower extremity peripheral arterial disease Asymptomatic. Smoking cessation Continue antiplatelet and statin Consider further evaluation as an outpatient. Likely acid peptic disease: Patient does have epigastric tenderness on exam, has nausea and vomiting IV PPI twice daily for now Convert to p.o. Protonix upon discharge Complicated UTI Right pyelitis Patient reports some subjective fever since last few days, reports pain and burning while passing urine. UA noted, follow blood and urine culture. CTAP with concern for right pyelitis and concern for cystitis. Urine culture: E. coli more than 100 K, pansensitive Gamma strep not Enterococcus Afebrile, denies urinary symptoms Continue IV ceftriaxone Convert to p.o. Cefdinir upon discharge Abnormal CT abdomen pelvis at presentation Endometrial thickening up to 16 mm, patient does not follow with gynecology as an outpatient per her -- GEOTHERMAL ELECTRICAL ENGINEER consulted, Patient seems reluctant to pursue any further workup at this time as per GEOTHERMAL ELECTRICAL ENGINEER,recommend outpatient follow-up -- The patient should be provided with my name and office contact so that she can reach out to set up an appointment once she is discharged from the hospital if she desires. Infrarenal abdominal aortic aneurysm: 3.1 cm noted in CTAP, follow-up with PCP Office for long-term monitoring. Other chronic medical conditions: HLD, HTN, CAD, generalized anxiety disorder, chronic nonspecific lung disease, COPD group B DVT prophylaxis: Patient on Eliquis Full code Disposition lives with daughter PT/OT ordered anticipate return to home tomorrow if patient remains medically stable Admission and Anticipated Discharge Date Admission Date: December 06, 2023 Subjective ff up for chest/epigastric pain, etc seen resting in bed, comfortable in good spirits states she feels better overall no chest pain/epigastric pain today no chest pain, dyspnea, palpitations, dizziness requesting to advance diet no other new symptoms Review of Systems Review of Systems: all noted and negative except for above Physical Exam Physical Exam: General- oriented x 3, not in distress, speaks in sentences with no effort or accessory muscle use Eyes- anicteric Neck- no JVD Lungs- clear breath sounds bilaterally, no rales/wheezes Heart- normal rate, regular rhythm; no murmurs Abdomen- normal bowel sounds, nondistended, soft, nontender Extremities- no pretibial edema, no calf tenderness Neuro- alert, oriented x 3; no gross focal neurologic deficits Skin- warm & dry Results & Data Results & Data Vital Signs (Past 12 Hours) Vital Signs Temp Pulse Pulse Resp BP BP Pulse Ox 12/08/23 15:08 70 12/08/23 10:33 36.4 C L 67 16 143/89 H 100 12/08/23 09:51 12/08/23 07:56 36.4 C L 76 18 139/61 96 12/08/23 07:08 64 12/08/23 03:39 36.8 C 71 18 145/85 H 96 O2 Del Method O2 Flow Rate 12/08/23 15:08 12/08/23 10:33 Nasal Cannula 3 12/08/23 09:51 Nasal Cannula 2 12/08/23 07:56 Nasal Cannula 3 12/08/23 07:08 12/08/23 03:39 Nasal Cannula 2 all noted and reviewed including below
[2023-12-09] MEDS: LOSARTAN POTASSIUM 50 MG TAB PO STA (03:39)
--- NOTE | 2023-12-09 05:29 | Electrocardiogram Report ---
Test Reason : Blood Pressure : */* mmHG Vent. Rate : 60 BPM Atrial Rate : 60 BPM P-R Int : 150 ms QRS Dur : 80 ms QT Int : 362 ms P-R-T Axes : 22 49 18 degrees QTcB Int : 362 ms Poor data quality, interpretation may be adversely affected Normal sinus rhythm Normal ECG When compared with ECG of 06-Dec-2023 10:44, No significant change was found Confirmed by Boston Salinas ([id number]) on 12/09/2023 5:29:33 AM Referred By: REFERRED SELF Confirmed By: Boston Salinas
[2023-12-09 07:21] LABS: Basophils # (auto) 0.05 K/uL (0.00-0.20); Basophils % (auto) 0.8 %; Eosinophils # (auto) 0.25 K/uL (0.00-0.50); Eosinophils % (auto) 3.9 %; Hematocrit (blood only) 33.6 % (37.0-47.0); Hemoglobin 10.6 g/dl (12.0-16.0); Immature Granulocytes # (auto) 0.03 K/uL (0.01-0.20); Immature Granulocytes % (auto) 0.5 %; Lymphocytes # (auto) 1.72 K/uL (1.20-3.40); Lymphocytes % (auto) 26.7 %; Mean Corpuscular Hemoglobin 30.1 pg (25.0-34.0); Mean Corpuscular Hgb Conc 31.5 g/dL (32.0-36.0); Mean Corpuscular Volume 95.5 fL (80.0-100.0); Mean Platelet Volume 9.3 fL (9.4-12.4); Monocytes # (auto) 0.64 K/uL (0.11-0.59); Neutrophils # (auto) 3.74 K/uL (1.40-6.50); Neutrophils % (auto) 58.1 %; Platelet Count 208 K/uL (130-400); RDW Coefficient of Variation 13.6 % (11.5-14.5); RDW Standard Deviation 47.8 fL (36.4-46.3); Red Blood Count 3.52 M/uL (4.20-5.40); White Blood Count 6.43 K/ul (4.8-10.8)
[2023-12-09] MEDS ORDERED: LOSARTAN POTASSIUM 50 MG TAB PO SCH (07:35)
[2023-12-09 07:45] LABS: BUN Creatinine Ratio 5.7 (10-20); Calcium 7.8 mg/dl (8.6-10.3); Creatinine Clr Calc Pharmacy 42.8 ml/min; Est GFR (African American) 76.1 ml/min; Est GFR (Non-African American) 65.6 ml/min; Potassium 3.8 mmol/L (3.5-5.1)
--- NOTE | 2023-12-09 08:19 | Hospitalist Progress Note ---
Date of Service December 09, 2023 Assessment & Plan (1) Chest pain: Plan Chest pain Acute Coronary Syndrome ruled out Patient presnted chest pain that she likens to the experience prior to getting [place]/stent last year per her. Pt was given aspirin enroute to hospital by EMS. Troponin x 3 negative, EKG with NSR and nonspecific ST abnormalities Echo: mild concentric LVH, left ventricular wall motion is normal, EF 55-60%, pulmonary artery systolic pressure mildly elevated During the hospitalization; losartan and spironolactone were added for high blood pressure. No further cardiac testing was required. Patient's chest pain resolved Patient needs to continue to take Plavix Coreg and statin. PT OT eval pending Complicated UTI Right pyelitis Patient reports some subjective fever since last few days, reports pain and burning while passing urine. CTAP with concern for right pyelitis and concern for cystitis. Urine culture: E. coli more than 100 K, pansensitive Gamma strep not Enterococcus Continue IV antiboitics Abnormal CT abdomen pelvis at presentation Endometrial thickening up to 16 mm, patient does not follow with gynecology as an outpatient per her -- ELECTRICAL CAD TECHNICIAN consulted, Patient seems reluctant to pursue any further workup at this time as per ELECTRICAL CAD TECHNICIAN,recommend outpatient follow-up Infrarenal abdominal aortic aneurysm: 3.1 cm noted in CTAP, follow-up with PCP Office for long-term monitoring. Possible Dyspepsia Patient does have epigastric tenderness on exam, has nausea and vomiting To be started on p.o. Protonix upon discharge Paroxysmal atrial fibrillation Amiodarone discontinued, risks felt to be greater than benefit noting underlying lung disease Resume beta-zaki, apixaban Suspected bilateral lower extremity peripheral arterial disease Asymptomatic. Smoking cessation Continue antiplatelet and statin Consider further evaluation as an outpatient. Other chronic medical conditions: HLD, HTN, CAD, generalized anxiety disorder, chronic nonspecific lung disease, COPD group B DVT prophylaxis: Patient on Eliquis Full code Disposition lives with daughter. PT/OT pending Time spent evaluating patient, direct bedside care, chart review, placing orders, interpretation of diagnostic studies, discussion with consultants, patient, and family members, as well as other required patient management activities is 50 minutes Please note the above document was generated using voice recognition software. It may contain grammatical, syntax or spelling errors. Any formal questions or concerns about the content, text or information contained within the body of this dictation should be directly addressed to the provider for clarification Admission and Anticipated Discharge Date Admission Date: December 06, 2023 Subjective Patient seen and examined at bedside. Comfortable; not in distress. Denies fever, chills, chest pain, shortness of breath, abdominal pain or urinary symptoms. No significant overnight events Review of Systems Review of Systems: All systems reviewed & are unremarkable except as noted in Subjective Physical Exam Physical Exam: General- oriented x 3, not in distress, speaks in sentences with no effort or accessory muscle use Eyes- anicteric Neck- no JVD Lungs- clear breath sounds bilaterally, no rales/wheezes Heart- normal rate, regular rhythm; no murmurs Abdomen- normal bowel sounds, nondistended, soft, nontender Extremities- no pretibial edema, no calf tenderness Neuro- alert, oriented x 3; no gross focal neurologic deficits Skin- warm & dry Results & Data Results & Data Vital Signs (Past 12 Hours) Vital Signs Temp Pulse Resp BP BP Pulse Ox O2 Del Method 12/09/23 08:00 Nasal Cannula 12/09/23 07:31 36.7 C 86 17 166/92 H 96 Nasal Cannula 12/09/23 03:23 96 H 179/115 H 12/09/23 03:12 36.7 C 74 16 182/119 H 191/116 H 97 Nasal Cannula 12/08/23 22:41 36.8 C 73 18 151/81 H 99 Nasal Cannula O2 Flow Rate 12/09/23 08:00 2 12/09/23 07:31 2 12/09/23 03:23 12/09/23 03:12 2 12/08/23 22:41 2
--- NOTE | 2023-12-09 11:50 | Cardiology Progress Note ---
Date of Service December 09, 2023 Assessment & Plan (1) Chest pain at rest: (2) Uncontrolled hypertension: (3) ASCVD (arteriosclerotic cardiovascular disease): (4) PAF (paroxysmal atrial fibrillation): (5) Dyslipidemia, goal LDL below 70: (6) COPD (chronic obstructive pulmonary disease): (7) Absent pedal pulses: Plan Epigastric pain. Atypical of cardiac etiology, reproducible with palpation. General measures advised. Further evaluation as per Hospitalist. Uncontrolled hypertension, longstanding history of hypertension reported by patient. Increase Losartan and spironolactone Atrial fibrillation. Patient asymptomatic, compensated. Amiodarone discontinued, risks felt to be greater then benefit noting underlying lung disease. Continue rate control with beta-zaki therapy. Continue apixaban (Eliquis) anticoagulation. ASCVD. Status post PCI of the RCA in February 2023. EKG without acute change. High-sensitivity troponin negative x 4. Chest x-ray clear. Resting echocardiogram with preserved LV systolic function without wall motion abnormality. Continue clopidogrel, carvedilol, moderate intensity statin therapy, and ARB as above. Dyslipidemia. Continue moderate intensity statin therapy with atorvastatin 40 mg/day COPD. Chronic hypoxic respiratory failure. Chronic tobacco abuse. Cessation mandated. Suspected bilateral lower extremity peripheral arterial disease. Asymptomatic. Smoking cessation mandated. Continue antiplatelet and statin. Consider further evaluation as an outpatient. Cardiology will sign off. Please contact with any questions or concerns Admission and Anticipated Discharge Date Admission Date: December 06, 2023 Supervising Physician Co-Signing Physician Notes Attending attestation: Case reviewed with the advanced practitioner. I have personally performed a history and physical examination on the patient. I have reviewed the advanced practitioner's documentation on the date of service referenced in note, and I agree with, and take responsibility for the plan of care. Pepe Lennon, DO Subjective Patient seen and examined. Chart, medications, and telemetry reviewed. Epigastric discomfort last night. No chest pain. No tachypalpitations. No new or worsening shortness of breath. No orthopnea, PND, or peripheral edema. Review of Systems Review of Systems: Complete review of systems is otherwise as stated above, negative, or noncontributory Physical Exam Physical Exam: General: A&Ox3. NAD. HENT: Hoarse voice. Normocephalic. Atraumatic. Eyes: Right sided ectropion. Neck: Bilateral carotid bruits. No JVD. Heart: Distant heart sounds. Irregularly irregular at 88 bpm. Grade I-II/ systolic murmur. No diastolic murmur. Lungs: Diminished. Decreased. Scattered rhonchi. No wheeze. Abdomen: +BS. Soft. + Epigastric tenderness. No masses or organomegaly. Extremities: No clubbing, cyanosis, or edema. Limited neurological examination is without focal deficits. Pulses: radial=2/4, posterior tibial=0/4, dorsalis pedis pulses 0/4. Results & Data Vital Signs (Past 12 Hours) Vital Signs Temp Pulse Resp BP BP Pulse Ox O2 Del Method 12/09/23 11:00 36.7 C 83 17 143/80 H 96 Nasal Cannula 12/09/23 08:00 Nasal Cannula 12/09/23 07:31 36.7 C 86 17 166/92 H 96 Nasal Cannula 12/09/23 03:23 96 H 179/115 H 12/09/23 03:12 36.7 C 74 16 182/119 H 191/116 H 97 Nasal Cannula O2 Flow Rate 12/09/23 11:00 2 12/09/23 08:00 2 12/09/23 07:31 2 12/09/23 03:23 12/09/23 03:12 2 Laboratory Results CBC 12/09/23 Range/Units 06:29 WBC 6.43 (4.8-10.8) K/ul RBC 3.52 L (4.20-5.40) M/uL Hgb 10.6 L (12.0-16.0) g/dl Hct 33.6 L (37.0-47.0) % Plt Count 208 (130-400) K/uL Neut # (Auto) 3.74 (1.40-6.50) K/uL Lymph # (Auto) 1.72 (1.20-3.40) K/uL [place] # (Auto) 0.64 H (0.11-0.59) K/uL Eos # (Auto) 0.25 (0.00-0.50) K/uL Baso # (Auto) 0.05 (0.00-0.20) K/uL Comprehensive Metabolic Panel 12/09/23 Range/Units 06:29 Sodium 140 (136-145) mmol/L Potassium 3.8 D (3.5-5.1) mmol/L Chloride 103 (98-107) mmol/L Carbon Dioxide 35 H (21-32) mmol/L BUN 5 L (6-23) mg/dl Creatinine 0.87 (0.6-1.2) mg/dl Glucose 83 (70-99(Fasting)) mg/dl Calcium 7.8 L (8.6-10.3) mg/dl Intake and Output 12/08/23 12/09/23 12/09/23 22:59 06:59 14:59 Intake Total 300 / 1670 590 / 1670 Output Total 550 / 1051 300 / 1051 Balance -250 / 619 290 / 619 Intake: IV 50 / 50 cefTRIAXone SODIUM 2,000 mg In 50 / 50 50 ml @ 100 mls/hr IV Q24H [facility] Rx#:[id number] Oral 250 / 1620 590 / 1620 Output: Urine Amount (Catheter) 550 / 1050 300 / 1050 External 550 / 1050 300 / 1050 Other: Weight 56.5 kg Weight Measurement Method Built in [facility] Diagnostic Findings Telemetry: Rate controlled atrial fibrillation.
[2023-12-09 15:44] LABS: Hematocrit (blood only) 35.6 % (37.0-47.0); Hemoglobin 11.2 g/dl (12.0-16.0)
--- NOTE | 2023-12-10 04:02 | Electrocardiogram Report ---
Test Reason : Blood Pressure : */* mmHG Vent. Rate : 66 BPM Atrial Rate : 66 BPM P-R Int : 156 ms QRS Dur : 80 ms QT Int : 342 ms P-R-T Axes : 96 58 -17 degrees QTcB Int : 358 ms Normal sinus rhythm Nonspecific ST abnormality Abnormal QRS-T angle, consider primary T wave abnormality Abnormal ECG When compared with ECG of 23-Apr-2017 18:12, ST now depressed in Inferior leads ST now depressed in Lateral leads Nonspecific T wave abnormality, worse in Inferior leads QT has shortened Confirmed by Emily Patterson ([id number]) on 12/06/2023 7:28:57 PM Referred By: Confirmed By: Emily Patterson
--- NOTE | 2023-12-10 06:07 | Electrocardiogram Report ---
Test Reason : Blood Pressure : */* mmHG Vent. Rate : 65 BPM Atrial Rate : 75 BPM P-R Int : * ms QRS Dur : 80 ms QT Int : 476 ms P-R-T Axes : * 41 35 degrees QTcB Int : 495 ms Poor data quality, interpretation may be adversely affected Atrial fibrillation Prolonged QT Abnormal ECG When compared with ECG of 07-Dec-2023 06:42, Atrial fibrillation has replaced Sinus rhythm Confirmed by Boston Salinas ([id number]) on 12/10/2023 6:07:43 AM Referred By: REFERRED SELF Confirmed By: Boston Salinas
[2023-12-10 07:01] LABS: Basophils # (auto) 0.04 K/uL (0.00-0.20); Basophils % (auto) 0.6 %; Eosinophils # (auto) 0.26 K/uL (0.00-0.50); Hematocrit (blood only) 31.5 % (37.0-47.0); Hemoglobin 10.2 g/dl (12.0-16.0); Immature Granulocytes # (auto) 0.02 K/uL (0.01-0.20); Immature Granulocytes % (auto) 0.3 %; Lymphocytes # (auto) 2.13 K/uL (1.20-3.40); Lymphocytes % (auto) 32.9 %; Mean Corpuscular Hemoglobin 30.2 pg (25.0-34.0); Mean Corpuscular Hgb Conc 32.4 g/dL (32.0-36.0); Mean Corpuscular Volume 93.2 fL (80.0-100.0); Mean Platelet Volume 9.5 fL (9.4-12.4); Monocytes # (auto) 0.52 K/uL (0.11-0.59); Neutrophils # (auto) 3.51 K/uL (1.40-6.50); Neutrophils % (auto) 54.2 %; Platelet Count 210 K/uL (130-400); RDW Coefficient of Variation 13.4 % (11.5-14.5); RDW Standard Deviation 46.2 fL (36.4-46.3); Red Blood Count 3.38 M/uL (4.20-5.40); White Blood Count 6.48 K/ul (4.8-10.8)
[2023-12-10 07:31] LABS: BUN Creatinine Ratio 8.2 (10-20); Est GFR (Non-African American) 81.1 ml/min; Potassium 3.4 mmol/L (3.5-5.1)
--- NOTE | 2023-12-10 08:59 | Discharge Summary ---
Date of Service December 10, 2023 Admission HPI Per Admitting Provider 73-year-old lady with PMH of [place] [February 2023], status post stent, HTN, chronic nonspecific lung disease, COPD group B, HLD, hypothyroidism, hematuria, osteoporosis, common migraine, generalized anxiety disorder, tobacco use disorder presented to the ED with complaint of chest pain. Patient reports having chest pain since 2 days ago REPORTS ANALYST, on and off, couple of times a day, especially with activity, better at rest, describes as pressure sensation, quantifies as " pretty bad", no radiation, associated with shortness of breath/nausea/sweating. Patient likens her chest pain to her experience prior to getting stent last year. Patient reports low-grade fever at home, some chills and sweating, chronic cough with whitish sputum [no increase in cough], upper mid abdominal pain since last 2 days. Patient reports pain and burning while passing urine, reports chronic diarrhea on and off, reports appetite about her usual. Patient denies prior vaginal bleeding. Patient is a current smoker, smokes about a pack a day for about 50 years, denies alcohol use, uses marijuana occasionally. Full code as per my discussion with the patient and her daughter at bedside. Medications reviewed with the patient and her daughter in detail. Plan of care discussed with them in detail, they voiced understanding and were agreeable to plan of care. Admission Exam Per Admitting Provider GENERAL: Alert and oriented x3. NAD, on 2L NC O2, appears ill/frail/weak/sick. HEENT: No pallor, no icterus. Pupils equal, round and reactive to light. Oral mucosa moist. NECK: No JVD, no neck masses. HEART: S1 and S2 heard. Regular rate and rhythm. No murmur, no gallop. RESPIRATORY SYSTEM: Normal AP diameter. No accessory muscle use. No wheezing, no crackles. ABDOMEN: Soft, bowel sounds present, epigastric tender, no distention. CENTRAL NERVOUS SYSTEM: No facial droop. Speech is clear. Obeys simple commands. Moves extremities. EXTREMITIES: No edema, no erythema seen. Principal Diagnosis Chest pain Acute Coronary Syndrome ruled out Complicated UTI Right pyelitis Discharge Exam General- oriented x 3, not in distress, speaks in sentences with no effort or accessory muscle use Eyes- anicteric Neck- no JVD Lungs- clear breath sounds bilaterally, no rales/wheezes Heart- normal rate, regular rhythm; no murmurs Abdomen- normal bowel sounds, nondistended, soft, nontender Extremities- no pretibial edema, no calf tenderness Neuro- alert, oriented x 3; no gross focal neurologic deficits Skin- warm & dry Discharge Data Allergies Allergy/AdvReac Type Severity Reaction Status Date / Time bee venom protein (honey bee) Allergy Severe SWELLING Verified 12/06/23 12:51 SEVERE doxycycline Allergy Unknown Unknown - Unverified 12/06/23 12:51 On file w/ [facility] No Known Drug Allergies Allergy Unknown . Verified 06/02/17 11:01 Consultations 12/06/23 15:54 ED Decision to Admit Stat 12/06/23 16:32 Consult Cardiology Routine 12/06/23 16:36 Consult Gynecology Routine 12/07/23 09:54 Consult Gastroenterology Routine Ordered Studies 12/06/23 10:56 CT Abd and Pelvis [CT abd pelvis IV con only] Stat Hospital Course (1) Chest pain: Plan Chest pain Acute Coronary Syndrome ruled out Patient presented with chest pain that she likens to the experience prior to getting [place]/stent last year per her. Pt was given aspirin enroute to hospital by EMS. Troponin x 3 negative, EKG with NSR and nonspecific ST abnormalities Echo: mild concentric LVH, left ventricular wall motion is normal, EF 55-60%, pulmonary artery systolic pressure mildly elevated During the hospitalization; losartan and spironolactone were added for high blood pressure. No further cardiac testing was required. Patient's chest pain resolved Patient needs to continue to take Plavix Coreg and statin. PT OT eval - recommend home. Complicated UTI Right pyelitis Patient reports some subjective fever since last few days, reports pain and burning while passing urine. CT abdomen pelvis with concern for right pyelitis and concern for cystitis. Urine culture: E. coli more than 100 K, pansensitive Gamma strep not Enterococcus Patient was treated with IV antibiotics. At discharge, she was placed on oral antibiotics. Abnormal CT abdomen pelvis at presentation Endometrial thickening up to 16 mm, patient does not follow with gynecology as an outpatient per her -- CHILD WELFARE SPECIALIST consulted, Patient seems reluctant to pursue any further workup at this time as per CHILD WELFARE SPECIALIST,recommend outpatient follow-up Infrarenal abdominal aortic aneurysm: 3.1 cm noted in CTAP, follow-up with PCP Office for long-term monitoring. Possible Dyspepsia Patient does have epigastric tenderness on exam, has nausea and vomiting Started on p.o. Protonix upon discharge Paroxysmal atrial fibrillation Amiodarone discontinued, risks felt to be greater than benefit noting underlying lung disease Resume beta-zaki, apixaban Please note the above document was generated using voice recognition software. It may contain grammatical, syntax or spelling errors. Any formal questions or concerns about the content, text or information contained within the body of this dictation should be directly addressed to the provider for clarification Total Time Total Time Spent Total Time Spent (In Minutes): 35 Total Time Includes: Examination of the Patient, Discharge Planning, Medication Reconciliation, Communication With Other Providers and Other Discharge Plan Discharge Items Patient Disposition: Home - Self-Care Reason For Visit: CHEST PAIN Discharge Diagnosis: Chest pain, ACS ruled out Complicated UTI Activity: Resume your previous activity Non-emergency contact: Primary Care Provider Call non-emergency contact if: you have any medication questions and your symptoms worsen Follow-up/Referrals: Ronald Cortes MD [Primary Care Provider] - 12/16/23 11:00 am (Date & Time 12/16/2023 11:00 AM Provider Ronald Cortes MD Department [facility] ) Diet: Regular Addtl Attending Provider Instructions: You were admitted to the hospital due to chest pain. Your evaluated by cardiology. You are prescribed following medication for high blood pressure Take losartan 50 mg once a day Take spironolactone 25 mg once a day Please measure your blood pressure daily at home. Measure blood pressure at sitting position with both feet on the ground and your arm rested. The doses of the medication may need to be titrated based on the blood pressure response. Make a log of it and follow-up with your primary care doctor. You were also evaluated by GI during the hospitalization; they recommend that you to be started on Protonix 40 mg once a day for dyspepsia. You were also found to have UTI for which you are prescribed antibiotic for 4 more days. An appointment with your primary care doctor will be made for you. Please follow-up with them next week and obtain basic metabolic panel to check on your electrolytes and kidney function as you are started on new medications Stop taking amiodarone. Pending Studies at Discharge: No Stand-Alone Forms: [employer], Smoking Cessation Medications and DC Order Prescriptions: New nitroglycerin [Nitrostat] 0.4 mg Tablet, Sublingual 0.4 mg sublingual Q5M PRN (Reason: chest pain) Qty: 30 0RF pantoprazole [Protonix] 40 mg tablet,delayed release (DR/EC) 40 mg PO DAILY Qty: 30 0RF amoxicillin-pot clavulanate 875-125 mg tablet 1 tab PO Q12H 4 Days Qty: 8 0RF spironolactone 25 mg Tablet 25 mg PO DAILY Qty: 30 0RF losartan 50 mg tablet 50 mg PO DAILY Qty: 30 0RF Continued multivitamin Tablet 1 tab PO DAILY Qty: 0 Rx Instructions: Unable to verify OTC meds at this date/time. acetaminophen [Tylenol] 325 mg Tablet 650 mg PO Q6 PRN (Reason: Pain) Qty: 0 Rx Instructions: Unable to verify OTC meds at this date/time. calcium carbonate-vitamin D3 [Calcium 600 + D(3)] 600 mg-10 mcg (400 unit) Tablet 1 tab PO DAILY Qty: 0 Rx Instructions: Unable to verify OTC meds at this date/time. omega 4-wxj-lci-fish oil [Fish Oil] 1,000 mg (120 mg-180 mg) Capsule 1 cap PO DAILY Qty: 0 Rx Instructions: Unable to verify OTC meds at this date/time. magnesium oxide 400 mg magnesium Tablet 400 mg PO BID Qty: 0 Rx Instructions: Unable to verify OTC meds at this date/time. furosemide 40 mg tablet 40 mg PO DAILY atorvastatin 40 mg tablet 40 mg PO QAM carvedilol 12.5 mg tablet 18.75 mg PO BID citalopram 40 mg tablet 40 mg PO QAM trazodone 50 mg tablet 50 - 100 mg PO HS alendronate 70 mg tablet 70 mg PO WK clopidogrel 75 mg tablet 75 mg PO QAM levothyroxine 25 mcg tablet 25 mcg PO DAILYBB oxybutynin chloride 5 mg tablet extended release 24hr 5 mg PO DAILY gabapentin 300 mg capsule 300 mg PO TID potassium chloride [Klor-Con M10] 10 mEq tablet,ER particles/crystals 10 meq PO BID fluticasone propion-salmeterol 115-21 mcg/actuation HFA aerosol inhaler 2 puff INHALATION BID Eliquis 5 mg tablet 5 mg PO BID Discontinued amiodarone 200 mg tablet 200 mg PO DAILY Discharge Orders: Discharge Order (Routine); Ordered 12/10/23 Ordered By: Robert French Admission Data Admit Date/Time: 12/06/23 16:32 Attending Provider: Robert French Admit Provider: Dustin Green Primary Care Provider: Ronald Cortes Other Providers: Dustin Green; Marco A Kwon; Mayela Matias; Mariam Candelario; Warren Anna; Krystin Madera; James Benson; Chase Mosqueda; Amina Hill; Carley Beckett; Janie Blackwell; Omaira Agudelo; Leonarda Kumar; Mel Panchal; Darleen Palma; Kane Prado; Ashley Bhatti; Dennis Robledo; Abdirizak Howard; Duyen Ellison; Mya Irvin; Itzel Aquino; Alma Cole; Phyllis Khalil; Armida,Christ; Jorge Peters; Joanna Browne; Edwin Baron; Paul Munoz S; Annamarie Williamson; Christina Miranda.; Devi Vazquez.; Adilene Arreoal; Meera Newton; Alexey Adamson; Parvez García.; Elisabet Spring; Moses Arevalo Jr; Moisés Presley; Francisco Salcedo; Bal Delcid; Sandoval Durham; Debra Oconnell; Miguel Orr I Other Interventions: Discharge Summary Assessment (RN) Last Done: 12/10/23 11:19
[2023-12-10] MEDS ORDERED: LOSARTAN POTASSIUM 50 MG TAB PO SCH (09:00)
[2023-12-10] MEDS: SPIRONOLACTONE 25 MG TAB PO SCH (09:23)
[2023-12-10] MEDS: LOSARTAN POTASSIUM 50 MG TAB PO SCH (09:23)
[2023-12-10 11:05] VITALS: PULSE 70; RESP 18; TEMP 98.1; O2SAT 100
[2023-12-10 11:25] VITALS: BP 179/115
== END 2023-12-10 14:22 | disposition home or self-care (01) | DRG 690 ==
LOC: ED 10:35 → SUATTDRO 16:32 → 2E 16:32

== ENCOUNTER 2023-12-11 10:21 | Inpatient (IN) ==
--- NOTE | 2023-12-11 10:40 | Emergency Department Note ---
Impression & Plan Acute on chronic respiratory failure with hypoxia and hypercapnia, COPD (chronic obstructive pulmonary disease), Elevated troponin level ED Provider Note NAME: JJ TORREZ AGE: 73 SEX: F : 1950 ARRIVES VIA: Ambulance INFORMANT: Patient ED PROVIDER(S): Elton Shepard MD CHIEF COMPLAINT: Shortness of breath PLAN: Disposition: Admit MEDICAL DECISION MAKING: The patient is a 73-year-old woman with past medical history of severe COPD who presents to the emergency department via EMS for acute respiratory failure where the patient was noted to be cyanotic with poor air movement. She was given 125 mg Solu-Medrol, DuoNeb and also dose of epinephrine due to lack of response. Patient is a poor historian on arrival due to severe respiratory distress. The patient was discharged on 12/09 following admission from 12/05-12/09 for chest pain and complicated UTI. She also had paroxysmal atrial fibrillation. On my evaluation, the patient is in severe respiratory distress with tachypnea and somnolence but alert to voice and following commands. She has poor air movement with underlying wheeze with accessory muscle use. I did perform a limited bedside ultrasound and there was no overt evidence of pneumothorax. Patient was placed on BiPAP and given continuous DuoNeb with steadily progressive improvement in her respiratory status. EKG demonstrates sinus tachycardia without overt acute ischemia. Chest x-ray negative for acute cardiopulmonary process without evidence of pneumonia though emphysema is described. VBG was completed and demonstrated pH of 7.1 with pCO2 of 106 in the setting of her tachypnea and compensation. Bicarbonate on the patient's chemistry was in the 30s consistent with component of chronic hypercapnia. WBC 14.9 K, nonspecific with neutrophil predominance but no left shift. Hemoglobin and platelets within normal limits. Chemistry without metabolic acidosis. Electrolytes and LFTs unremarkable. High-sensitivity troponin 30.3, in the setting of her acute respiratory failure. TSH is 5.5 with free T4 pending. Procalcitonin is undetectable. Lipase not elevated. Respiratory status steadily improving on BiPAP with continuous DuoNeb as well as IV magnesium and Solu-Medrol administered by EMS. Case was discussed with Dr. Turcios, [facility] hospitalist, who will evaluate the patient for admission. Further management per admitting team. Triage Nursing notes reviewed and agree them. Prior/external medical records reviewed Vital Signs: reviewed Differential diagnosis: Reactive airway disease, pneumonia, pneumothorax, COPD, CHF, infections, cardiac ischemia, pulmonary embolism, musculoskeletal, gastrointestinal, as well as other pathologies. ER treatment provided: See below. Diagnostics interpreted by me: ECG: Sinus tachycardia, 117 bpm, no ectopy, ST abnormality. no overt ST elevation or depression, QTc 449, QRS 100. Cardiac Monitoring: An order for continuous cardiac monitoring was placed and demonstrated Sinus tachycardia, 117 bpm, no ectopy. Laboratory studies: See below Imaging studies: See below Consultation(s): Case was discussed with Dr. Turcios, [facility] hospitalist, who will evaluate the patient for admission. HPI: The patient is a 73-year-old woman with past medical history of severe COPD who presents to the emergency department via EMS for acute respiratory failure where the patient was noted to be cyanotic with poor air movement. She was given 125 mg Solu-Medrol, DuoNeb and also dose of epinephrine due to lack of response. Patient is a poor historian on arrival due to severe respiratory distress. The patient was discharged on 12/09 following admission from 12/05-12/09 for chest pain and complicated UTI. She also had paroxysmal atrial fibrillation. ROS: See above HPI for pertinent positives & negatives. A total of 10 systems reviewed and were otherwise negative. VITALS:See Below PHYSICAL EXAMINATION: GENERAL: Awake, alert, ill-appearing, severe distress, cachectic appearing HENT: Normocephalic, atraumatic. Oropharynx with dry mucous membranes and otherwise unremarkable. EYES: Normal conjunctiva. Sclera non-icteric. NECK: Supple. No nuchal rigidity. FROM. No JVD. RESPIRATORY: Minimal air movement bilaterally with underlying wheeze with severe work of breathing. CARDIAC: Tachycardic rate, normal rhythm. Extremities warm and well perfused. Pulses equal. ABDOMEN: Soft, non-distended. No tenderness to palpation. No rebound or guarding. No masses. MUSCULOSKELETAL: Chest examination reveals no tenderness. The back is symmetrical on inspection without obvious abnormality. There is no CVA tenderness to palpation. No joint edema. LOWER EXTREMITIES: Calves are equal size bilaterally and non-tender. No edema. No discoloration. NEURO: Normal sensorium. No sensory or motor deficits noted. SKIN: No rash or jaundice noted. ED COURSE: Critical Care: I have personally spent greater than 35 minutes of critical care time in the direct management of this patient. This includes bedside care, interpretation of diagnostic studies, and testing, discussion with consultants, patient, and family members, and other required patient management activities. This 35 minutes is in excess of all separately billable procedures. Elton Shepard MD Past Med/Surg History Problem List (Updated 12/13/23 @ 19:55 by Elton Shepard MD) COPD with exacerbation Elevated troponin level (Acute) Acute on chronic respiratory failure with hypoxia and hypercapnia (Acute) Absent pedal pulses COPD (chronic obstructive pulmonary disease) (Acute) Dyslipidemia, goal LDL below 70 PAF (paroxysmal atrial fibrillation) Uncontrolled hypertension ASCVD (arteriosclerotic cardiovascular disease) Chest pain at rest Thickened endometrium Elevated brain natriuretic peptide (BNP) level (Acute) Nausea & vomiting (Acute) Chest pain (Acute) Asthma exacerbation (Acute) Gastroenteritis (Acute) Fall in home (Acute) CHI (closed head injury) (Acute) Scalp laceration (Acute) Facial laceration (Acute) Heart disease HTN (hypertension) Kidney disease Bronchitis Fall in home (Acute) Hyponatremia (Acute) Hypokalemia (Acute) Abdominal pain Diarrhea Vomiting Medical History Macular degeneration Asthma Tobacco use disorder Coronary atherosclerosis of [place] coronary vessel Benign hypertension Atrial fibrillation Diabetes Surgical History H/O heart surgery History of cholecystectomy Hx of tubal ligation Social History Smoking Status: Former smoker Tobacco Type: Cigarettes Second Hand Exposure: No; Do You Dip or Chew Tobacco: No; Hx Alcohol Use: No Hx Substance Use: Yes Preferred Language: Citizen Of [place] Communication Ability: Effective Rug Dyer Helper Required: No Beliefs That Will Affect Care: None Current Living Situation: Family Current Living Situation Comment: daughter Feels Safe at Home: Yes Assistive Devices: Cane, Oxygen - at Night, Walker and Wheelchair Allergies Allergies Allergy/AdvReac Type Severity Reaction Status Date / Time bee venom protein (honey bee) Allergy Severe SWELLING Verified 12/06/23 12:51 SEVERE doxycycline Allergy Unknown Unknown - Unverified 12/06/23 12:51 On file w/ [facility] No Known Drug Allergies Allergy Unknown . Verified 06/02/17 11:01 Home Meds Home Medications Medication Instructions Recorded Confirmed multivitamin 1 tab PO DAILY #0 tabs 02/07/14 12/11/23 acetaminophen 325 mg tablet 650 mg PO Q6 PRN Pain #0 tabs 04/22/17 12/11/23 (Tylenol) calcium carbonate 600 mg-vitamin 1 tab PO DAILY ##0 04/22/17 12/11/23 D3 10 mcg (400 unit) tablet (Calcium 600 + D(3)) omega 1-orr-[id number]-fish oil 1,000 mg 1 cap PO DAILY #0 caps 04/22/17 12/11/23 (120 mg-180 mg) capsule (Fish Oil) magnesium oxide 400 mg PO BID #0 tabs 06/01/17 12/11/23 alendronate 70 mg tablet 70 mg PO WK 12/06/23 12/11/23 apixaban 5 mg tablet (Eliquis) 5 mg PO BID 12/06/23 12/11/23 atorvastatin 40 mg tablet 40 mg PO QAM 12/06/23 12/11/23 carvedilol 12.5 mg tablet 18.75 mg PO BID 12/06/23 12/11/23 citalopram 40 mg tablet 40 mg PO QAM 12/06/23 12/11/23 clopidogrel 75 mg tablet 75 mg PO QAM 12/06/23 12/11/23 fluticasone propionate 115 2 puff inhalation BID 12/06/23 12/11/23 mcg-salmeterol 21 mcg/actuation HFA inhaler furosemide 40 mg tablet 40 mg PO DAILY 12/06/23 12/11/23 gabapentin 300 mg capsule 300 mg PO TID 12/06/23 12/11/23 levothyroxine 25 mcg tablet 25 mcg PO DAILYBB 12/06/23 12/11/23 oxybutynin chloride 5 mg 5 mg PO DAILY 12/06/23 12/11/23 tablet,extended release 24 hr potassium chloride 10 mEq 10 meq PO BID 12/06/23 12/11/23 tablet,extended release(part/cryst) (Klor-Con M) trazodone 50 mg tablet 50 - 100 mg PO HS 12/06/23 12/11/23 Previous Rx's Medication Instructions Recorded amoxicillin 875 mg-potassium 1 tab PO Q12H 4 days #8 tabs 12/09/23 clavulanate 125 mg tablet nitroglycerin 0.4 mg sublingual 0.4 mg sublingual Q5M PRN chest 12/09/23 tablet (Nitrostat) pain #30 tabs pantoprazole 40 mg tablet,delayed 40 mg PO DAILY #30 tabs 12/09/23 release (Protonix) losartan 50 mg tablet 50 mg PO DAILY #30 tabs 12/10/23 spironolactone 25 mg tablet 25 mg PO DAILY #30 tabs 12/10/23 Results & Data (ED) Vital Signs Vital Signs - 24 hr 12/11/23 10:26 12/11/23 10:26 12/11/23 10:26 Pulse Rate 119 H Pulse Rate [Left Finger] Respiratory Rate 33 H Respiratory Effort / Characteristics Non-Labored Spontaneous Spontaneous Accessory Muscle Use Labored Respiratory Depth Normal Shallow Respiratory Pattern Regular Tachypnea Blood Pressure 191/160 H Blood Pressure Mean 170 Pulse Oximetry 97 97 Oxygen Delivery Method Nasal Cannula Nasal Cannula Nasal Cannula Oxygen Flow Rate 4 4 4 Fraction of Inspired Oxygen Sepsis Recent Fever Within 48 Hours No Sepsis New/Unexplained Change in Mental Status N/A Sepsis Action Taken by Nursing Physician Notified 12/11/23 10:33 12/11/23 10:36 12/11/23 10:55 Pulse Rate 117 H 123 H Pulse Rate [Left Finger] Respiratory Rate 32 H Respiratory Effort / Characteristics Spontaneous Labored Short of Breath Respiratory Depth Respiratory Pattern Tachypnea Blood Pressure Blood Pressure Mean Pulse Oximetry 97 100 Oxygen Delivery Method Nasal Cannula Oxygen Flow Rate 4 Fraction of Inspired Oxygen 35 Sepsis Recent Fever Within 48 Hours Sepsis New/Unexplained Change in Mental Status Sepsis Action Taken by Nursing 12/11/23 11:10 12/11/23 11:39 Pulse Rate 104 H Pulse Rate [Left Finger] 114 H Respiratory Rate 32 H 23 Respiratory Effort / Characteristics Spontaneous Labored Short of Breath Spontaneous Labored Respiratory Depth Respiratory Pattern Regular Blood Pressure Blood Pressure Mean Pulse Oximetry 100 100 Oxygen Delivery Method BiPAP Oxygen Flow Rate Fraction of Inspired Oxygen 35 35 Sepsis Recent Fever Within 48 Hours Sepsis New/Unexplained Change in Mental Status Sepsis Action Taken by Nursing Laboratory Data Attestation: I reviewed the patient's lab results. 12/13/23 06:39 12/13/23 06:39 Lab Results 12/11/23 12/11/23 12/11/23 Range/Units 10:33 10:47 11:04 WBC 14.94 H (4.8-10.8) K/ul RBC 3.98 L (4.20-5.40) M/uL Hgb 12.2 (12.0-16.0) g/dl POC Hgb 12.9 (12.0-16.0) g/dl Hct 38.7 (37.0-47.0) % POC Hct 38 (37-47) % MCV 97.2 (80.0-100.0) fL MCH 30.7 (25.0-34.0) pg MCHC 31.5 L (32.0-36.0) g/dL RDW Std Deviation 49.1 H (36.4-46.3) fL RDW Coeff of Chet 13.7 (11.5-14.5) % Plt Count 343 D (130-400) K/uL MPV 9.6 (9.4-12.4) fL Immature Gran % (Auto) 0.5 % Neut % (Auto) 55.9 % Lymph % (Auto) 33.7 % [place] % (Auto) 6.4 % Eos % (Auto) 2.8 % Baso % (Auto) 0.7 % Neut # (Auto) 8.35 H (1.40-6.50) K/uL Lymph # (Auto) 5.03 H (1.20-3.40) K/uL [place] # (Auto) 0.96 H (0.11-0.59) K/uL Eos # (Auto) 0.42 (0.00-0.50) K/uL Baso # (Auto) 0.10 (0.00-0.20) K/uL Immature Gran # (Auto) 0.08 (0.01-0.20) K/uL Blood Smear Review PT 10.9 (9.0-12.0) Seconds INR 1.0 (0.9-1.1) POC pH 7.13 L* (7.35-7.45) POC pCO2 107 H (35-46) mmHg POC pO2 76 L (80-95) mmHg POC HCO3 35 H (19-24) norma/L POC Total CO2 38 H (24-31) mmol/L POC Base Excess 6.0 H (-9-1.8) norma/L POC ABG O2 Sat 88.0 L (90-95) % POC Sodium 141 (135-144) mmol/L Sodium 141 (136-145) mmol/L POC Potassium 4.3 (3.3-5.0) mmol/L Potassium 4.3 D (3.5-5.1) mmol/L Chloride 100 (98-107) mmol/L Carbon Dioxide 35 H (21-32) mmol/L Anion Gap 6 (3-11) BUN 9 (6-23) mg/dl Creatinine 0.89 (0.6-1.2) mg/dl Est Cr Clr Drug Dosing 47.9 ml/min Est GFR ( Amer) 74.0 ml/min Est GFR (Non-Af Amer) 63.8 ml/min BUN/Creatinine Ratio 10.1 (10-20) Glucose 222 H (70-99(Fasting)) mg/dl Lactate (0.4-2.0) mmol/L Calcium 8.8 (8.6-10.3) mg/dl Magnesium 2.0 (1.7-2.4) mg/dl Total Bilirubin 0.5 (0.2-1.0) mg/dl Direct Bilirubin 0.2 (0-0.2) mg/dl AST 27 (13-39) U/L ALT 15 (7-52) U/L Alkaline Phosphatase 107 H (34-104) U/L Troponin I High Sens 30.3 H (0-14) pg/ml Total Protein 7.5 (6.0-8.3) gm/dl Albumin 3.7 (3.4-5.0) gm/dl Lipase 19 (11-82) U/L Procalcitonin < 0.02 (0-0.5) ng/ml TSH 5.530 H (0.300-4.500) uIu/ml Free T4 1.17 (0.61-1.60) ng/dl Urine Color Yellow Urine Appearance Clear (Clear) Urine pH 6.5 (4.5-7.5) Ur Specific [place] 1.011 (1.000-1.030) Urine Protein Trace H (Negative) Urine Glucose (UA) Negative (Negative) Urine Ketones Negative (Negative) Urine Blood Negative (Negative) Urine Nitrite Negative (Negative) Urine Bilirubin Negative (Negative) Urine Urobilinogen Negative (Negative) Ur Leukocyte Esterase Negative (Negative) Urine WBC (Auto) 0-5 (0-5) /hpf Urine RBC (Auto) 0-2 (0-2) /hpf U Hyaline Cast (Auto) 3-5 H (0-2) /lpf U Epithel Cells (Auto) 0-2 (0-2) /hpf Urine Bacteria (Auto) None Seen (None Seen) 12/11/23 Range/Units 11:49 WBC (4.8-10.8) K/ul RBC (4.20-5.40) M/uL Hgb (12.0-16.0) g/dl POC Hgb (12.0-16.0) g/dl Hct (37.0-47.0) % POC Hct (37-47) % MCV (80.0-100.0) fL MCH (25.0-34.0) pg MCHC (32.0-36.0) g/dL RDW Std Deviation (36.4-46.3) fL RDW Coeff of Chet (11.5-14.5) % Plt Count (130-400) K/uL MPV (9.4-12.4) fL Immature Gran % (Auto) % Neut % (Auto) % Lymph % (Auto) % [place] % (Auto) % Eos % (Auto) % Baso % (Auto) % Neut # (Auto) (1.40-6.50) K/uL Lymph # (Auto) (1.20-3.40) K/uL [place] # (Auto) (0.11-0.59) K/uL Eos # (Auto) (0.00-0.50) K/uL Baso # (Auto) (0.00-0.20) K/uL Immature Gran # (Auto) (0.01-0.20) K/uL Blood Smear Review PT (9.0-12.0) Seconds INR (0.9-1.1) POC pH (7.35-7.45) POC pCO2 (35-46) mmHg POC pO2 (80-95) mmHg POC HCO3 (19-24) norma/L POC Total CO2 (24-31) mmol/L POC Base Excess (-9-1.8) norma/L POC ABG O2 Sat (90-95) % POC Sodium (135-144) mmol/L Sodium (136-145) mmol/L POC Potassium (3.3-5.0) mmol/L Potassium (3.5-5.1) mmol/L Chloride (98-107) mmol/L Carbon Dioxide (21-32) mmol/L Anion Gap (3-11) BUN (6-23) mg/dl Creatinine (0.6-1.2) mg/dl Est Cr Clr Drug Dosing ml/min Est GFR ( Amer) ml/min Est GFR (Non-Af Amer) ml/min BUN/Creatinine Ratio (10-20) Glucose (70-99(Fasting)) mg/dl Lactate 2.3 H* (0.4-2.0) mmol/L Calcium (8.6-10.3) mg/dl Magnesium (1.7-2.4) mg/dl Total Bilirubin (0.2-1.0) mg/dl Direct Bilirubin (0-0.2) mg/dl AST (13-39) U/L ALT (7-52) U/L Alkaline Phosphatase (34-104) U/L Troponin I High Sens (0-14) pg/ml Total Protein (6.0-8.3) gm/dl Albumin (3.4-5.0) gm/dl Lipase (11-82) U/L Procalcitonin (0-0.5) ng/ml TSH (0.300-4.500) uIu/ml Free T4 (0.61-1.60) ng/dl Urine Color Urine Appearance (Clear) Urine pH (4.5-7.5) Ur Specific [place] (1.000-1.030) Urine Protein (Negative) Urine Glucose (UA) (Negative) Urine Ketones (Negative) Urine Blood (Negative) Urine Nitrite (Negative) Urine Bilirubin (Negative) Urine Urobilinogen (Negative) Ur Leukocyte Esterase (Negative) Urine WBC (Auto) (0-5) /hpf Urine RBC (Auto) (0-2) /hpf U Hyaline Cast (Auto) (0-2) /lpf U Epithel Cells (Auto) (0-2) /hpf Urine Bacteria (Auto) (None Seen) Administered Medications Acetaminophen (Acetaminophen 325 Mg Tab) 650 mg PO Q4H PRN PRN Reason: Pain or Fever Stop: 01/10/24 15:01 Last Admin: 12/12/23 06:45 Dose: 650 mg Documented By: Admin: 12/11/23 16:22 Dose: 650 mg Documented By: ODETTE Amoxicillin/Clavulanate Potassium (Amoxicillin/Clavulanate 875 Mg Tab) 1 tab PO BIDM [facility]; Protocol Stop: 12/15/23 15:29 Last Admin: 12/13/23 16:46 Dose: 1 tab Documented By: Admin: 12/13/23 08:06 Dose: 1 tab Documented By: Admin: 12/12/23 16:09 Dose: 1 tab Documented By: Admin: 12/12/23 08:25 Dose: 1 tab Documented By: Admin: 12/11/23 16:22 Dose: 1 tab Documented By: ODETTE Apixaban (Apixaban 5 Mg Tablet) 5 mg PO BID [facility] Stop: 01/10/24 20:59 Last Admin: 12/13/23 08:06 Dose: 5 mg Documented By: Admin: 12/12/23 20:09 Dose: 5 mg Documented By: Admin: 12/12/23 08:25 Dose: 5 mg Documented By: Admin: 12/11/23 21:01 Dose: 5 mg Documented By: SUNDEEP Atorvastatin Calcium (Atorvastatin 40 Mg Tab) 40 mg PO QAM [facility] Stop: 01/11/24 08:59 Last Admin: 12/13/23 08:06 Dose: 40 mg Documented By: Admin: 12/12/23 08:25 Dose: 40 mg Documented By: MISSY Budesonide (Budesonide 0.5 Mg/2 Ml Vial (Pulmicort)) 0.5 mg NEB BIDR [facility] Stop: 01/10/24 18:59 Last Admin: 12/13/23 19:32 Dose: 0.5 mg Documented By: Admin: 12/13/23 07:04 Dose: 0.5 mg Documented By: Admin: 12/12/23 19:16 Dose: 0.5 mg Documented By: Admin: 12/12/23 06:50 Dose: 0.5 mg Documented By: Admin: 12/11/23 19:23 Dose: 0.5 mg Documented By: TMP Carvedilol (Carvedilol 6.25 Mg Tab) 18.75 mg PO BIDM [facility] Stop: 01/10/24 16:59 Last Admin: 12/13/23 16:46 Dose: 18.75 mg Documented By: Admin: 12/13/23 08:06 Dose: 18.75 mg Documented By: Admin: 12/12/23 16:16 Dose: 18.75 mg Documented By: Admin: 12/12/23 09:14 Dose: 18.75 mg Documented By: Admin: 12/11/23 16:36 Dose: 18.75 mg Documented By: ODETTE Citalopram Hydrobromide ([facility]opram 40 Mg Tab) [facility] Stop: 01/11/24 08:59 Last Admin: 12/13/23 08:06 Dose: 40 mg Documented By: Admin: 12/12/23 08:25 Dose: 40 mg Documented By: BT Clopidogrel Bisulfate (Clopidogrel Bisulfate 75 Mg Tab) 75 mg PO [facility] Stop: 01/11/24 08:59 Last Admin: 12/13/23 08:06 Dose: 75 mg Documented By: Admin: 12/12/23 08:25 Dose: 75 mg Documented By: MISSY Formoterol Fumarate (Formoterol 20 Mcg/2 Ml Vial) 20 mcg NEB BIDR [facility] Stop: 01/10/24 18:59 Last Admin: 12/13/23 19:32 Dose: 20 mcg Documented By: Admin: 12/13/23 07:04 Dose: 20 mcg Documented By: Admin: 12/12/23 19:16 Dose: 20 mcg Documented By: Admin: 12/12/23 06:50 Dose: 20 mcg Documented By: Admin: 12/11/23 19:23 Dose: 20 mcg Documented By: TMP Furosemide (Furosemide 40 Mg Tab) 40 mg PO DAILY [facility] Stop: 01/11/24 15:29 Last Admin: 12/13/23 09:12 Dose: Not Given Documented By: Admin: 12/12/23 16:31 Dose: 40 mg Documented By: BT Gabapentin (Gabapentin 300 Mg Cap) 300 mg PO TID [facility] Stop: 01/10/24 15:14 Last Admin: 12/13/23 15:14 Dose: 300 mg Documented By: Admin: 12/13/23 08:06 Dose: 300 mg Documented By: Admin: 12/12/23 20:09 Dose: 300 mg Documented By: Admin: 12/12/23 15:00 Dose: 300 mg Documented By: Admin: 12/12/23 09:15 Dose: 300 mg Documented By: Admin: 12/11/23 21:02 Dose: 300 mg Documented By: Admin: 12/11/23 16:37 Dose: 300 mg Documented By: ODETTE Guaifenesin (Guaifenesin 600 Mg Tabcr) 600 mg PO Q12 [facility] Stop: 01/10/24 20:59 Last Admin: 12/13/23 08:07 Dose: 600 mg Documented By: Admin: 12/12/23 20:09 Dose: 600 mg Documented By: Admin: 12/12/23 08:26 Dose: 600 mg Documented By: Admin: 12/11/23 21:00 Dose: 600 mg Documented By: SUNDEEP Methylprednisolone 40 mg/ (Syringe) 0.64 mls @ 1.5 mls/min IV DAILY [facility] Stop: 01/11/24 08:59 Last Admin: 12/13/23 08:07 Dose: 1.5 mls/min Documented By: Admin: 12/12/23 08:26 Dose: 1.5 mls/min Documented By: MISSY Levothyroxine Sodium (Levothyroxine Sodium 25 Mcg Tablet) 25 mcg PO DAILYBB [facility] Stop: 01/11/24 06:29 Last Admin: 12/13/23 05:48 Dose: 25 mcg Documented By: Admin: 12/12/23 05:43 Dose: 25 mcg Documented By: RAFIA Losartan Potassium (Losartan Potassium 50 Mg Tab) 50 mg PO DAILY [facility] Stop: 01/11/24 08:59 Last Admin: 12/13/23 08:07 Dose: 50 mg Documented By: Admin: 12/12/23 08:26 Dose: 50 mg Documented By: MISSY Magnesium Oxide (Magnesium Oxide 400 Mg Tab) 400 mg PO BID [facility] Stop: 01/10/24 20:59 Last Admin: 12/13/23 08:07 Dose: 400 mg Documented By: Admin: 12/12/23 20:09 Dose: 400 mg Documented By: Admin: 12/12/23 08:26 Dose: 400 mg Documented By: Admin: 12/11/23 21:01 Dose: 400 mg Documented By: SUNDEEP Multivitamins (Multivitamin Tab) 1 tab PO DAILY [facility] Stop: 01/11/24 08:59 Last Admin: 12/13/23 08:07 Dose: 1 tab Documented By: Admin: 12/12/23 08:26 Dose: 1 tab Documented By: BT Oxybutynin Chloride (Oxybutynin Chloride Xl 5 Mg Tabcr) 5 mg PO DAILY [facility] Stop: 01/11/24 08:59 Last Admin: 12/13/23 08:07 Dose: 5 mg Documented By: Admin: 12/12/23 08:26 Dose: 5 mg Documented By: BT Pantoprazole Sodium (Pantoprazole 40 Mg Tab) 40 mg PO DAILY [facility] Stop: 01/11/24 08:59 Last Admin: 12/13/23 08:07 Dose: 40 mg Documented By: Admin: 12/12/23 08:26 Dose: 40 mg Documented By: BT Potassium Chloride (Potassium Chloride Crtab 20 Meq Tabcr) 20 meq PO TID [facility] Stop: 01/12/24 14:09 Last Admin: 12/13/23 15:17 Dose: 20 meq Documented By: BT Spironolactone (Spironolactone 25 Mg Tab) 25 mg PO DAILY [facility] Stop: 01/11/24 08:59 Last Admin: 12/13/23 08:07 Dose: 25 mg Documented By: Admin: 12/12/23 08:26 Dose: 25 mg Documented By: MISSY Umeclidinium [place] (Umeclidinium [place] 62.5mcg/Blister 7 Puffs/Inhaler) 1 puffs INH DAILY [facility] Stop: 01/11/24 08:59 Last Admin: 12/13/23 08:07 Dose: 1 puffs Documented By: Admin: 12/12/23 09:14 Dose: 1 puffs Documented By: BT Discontinued Medications Albuterol (Albut/Ipratrop 3mg/0.5mg Neb 3 Ml Vial) Confirm Administered Dose 9 ml .ROUTE .STK-MED ONE Stop: 12/11/23 10:36 Last Admin: 12/11/23 11:06 Dose: 9 ml Documented By: JACKSON Albuterol (Albut/Ipratrop 3mg/0.5mg Neb 3 Ml Vial) 12 ml NEB ONE ONE; Protocol Stop: 12/11/23 10:45 Last Admin: 12/11/23 11:06 Dose: Not Given Documented By: JACKSON Albuterol (Albut/Ipratrop 3mg/0.5mg Neb 3 Ml Vial) 3 ml NEB Q4R [facility]; Protocol Stop: 01/10/24 15:01 Last Admin: 12/11/23 16:35 Dose: Not Given Documented By: ODETTE Fluticasone/Vilanterol (Fluticasone/Vilanterol 200/25mcg 14 Puffs/Inhaler) 1 puffs INH DAILY [facility] Stop: 01/11/24 08:59 Last Admin: 12/12/23 08:26 Dose: 1 puffs Documented By: MISSY Furosemide (Furosemide 40 Mg Tab) 40 mg PO QAM [facility] Stop: 01/11/24 10:29 Last Admin: 12/13/23 08:06 Dose: 40 mg Documented By: Admin: 12/12/23 11:35 Dose: 40 mg Documented By: MISSY Magnesium Sulfate/Dextrose (Magnesium Sulfate / D5w) 1 gm in 100 mls @ 600 mls/hr IV Q10M [facility] Stop: 12/11/23 11:02 Last Infusion: 12/11/23 12:00 Dose: Infused Documented By: Admin: 12/11/23 11:05 Dose: 600 mls/hr Documented By: Infusion: 12/11/23 10:58 Dose: Infused Documented By: Admin: 12/11/23 10:47 Dose: 600 mls/hr Documented By: JACKSON Famotidine (Pepcid 20mg Iv Push) 20 mg in 5 mls @ 2.5 mls/min IV NOW STA Stop: 12/11/23 10:54 Last Admin: 12/11/23 11:05 Dose: 2.5 mls/min Documented By: JACKSON Ondansetron HCl (Ondansetron Inj 2 Mg/Ml 2 Ml Vial) 4 mg IV NOW STA Stop: 12/11/23 10:54 Last Admin: 12/11/23 11:05 Dose: 4 mg Documented By: JACKSON Imaging Data Radiologist's Impression: Chest X-Ray 12/11/23 10:36 XR chest 1V portable HISTORY: Sepsis COMPARISON: Chest 12/06/2023. FINDINGS: The lungs are hyperexpanded with apical predominant emphysematous changes. No pneumothorax. No pleural effusions. Mild interstitial thickening persists and is likely chronic. The heart is normal in size. There is metallic anchor within the right humeral head and old right-sided rib fractures. No acute fractures identified. IMPRESSION: No significant change compared to the prior study. No acute process. Emphysema again noted. ACT 112: Negative or not required by law. Electronically signed by: Virgilio Briones M.D. 12/11/2023 11:22 AM Discharge Plan Visit Data Chief Complaint: Shortness of Breath/Dyspnea Stated Complaint: SOB ED Provider: Elton Shepard Discharge Problem: Acute on chronic respiratory failure with hypoxia and hypercapnia, COPD (chronic obstructive pulmonary disease), Elevated troponin level Patient Disposition: Admitted As Inpatient Discharge Instructions Interventions: ED Discharge Assessment Last Done: 12/11/23 14:23 Discharge Problem: COPD (chronic obstructive pulmonary disease) Qualifiers: COPD type: COPD with acute exacerbation Qualified Code(s): J44.1 - Chronic obstructive pulmonary disease with (acute) exacerbation
[2023-12-11] MEDS: MAGNESIUM SULFATE / D5W 1 GM/100 ML BAG IV SCH (10:47)
[2023-12-11 10:52] LABS: Hematocrit (blood only) 38.7 % (37.0-47.0); Hemoglobin 12.2 g/dl (12.0-16.0); Mean Corpuscular Hemoglobin 30.7 pg (25.0-34.0); Mean Corpuscular Hgb Conc 31.5 g/dL (32.0-36.0); Mean Corpuscular Volume 97.2 fL (80.0-100.0); Mean Platelet Volume 9.6 fL (9.4-12.4); Platelet Count 343 K/uL (130-400); RDW Coefficient of Variation 13.7 % (11.5-14.5); RDW Standard Deviation 49.1 fL (36.4-46.3); Red Blood Count 3.98 M/uL (4.20-5.40); White Blood Count 14.94 K/ul (4.8-10.8)
[2023-12-11 11:00] LABS: iSTAT Arterial Blood Gas HCO3 35 meg/L (19-24); iSTAT Arterial Blood Gas pCO2 107 mmHg (35-46); iSTAT Arterial Blood Gas pH 7.13 (7.35-7.45); iSTAT Arterial Blood Gas pO2 76 mmHg (80-95); iSTAT Carbon Dioxide 38 mmol/L (24-31); iSTAT Hematocrit 38 % (37-47); iSTAT Hemoglobin 12.9 g/dl (12.0-16.0); iSTAT Potassium 4.3 mmol/L (3.3-5.0); iSTAT Sodium 141 mmol/L (135-144)
[2023-12-11] MEDS: ONDANSETRON INJ 2 MG/ML 2 ML VIAL IV STA (11:05)
[2023-12-11] MEDS: FAMOTIDINE 20MG IV PUSH 20 MG/5 ML SYR IV STA (11:05)
[2023-12-11] MEDS: ALBUT/IPRATROP 3MG/0.5MG NEB 3 ML VIAL NEB ONE (11:06)
[2023-12-11] MEDS: ALBUT/IPRATROP 3MG/0.5MG NEB 3 ML VIAL ONE (11:06)
[2023-12-11 11:11] LABS: Albumin Level 3.7 gm/dl (3.4-5.0); BUN Creatinine Ratio 10.1 (10-20); Basophils % (auto) 0.7 %; Bilirubin Direct 0.2 mg/dl (0-0.2); Bilirubin,Total 0.5 mg/dl (0.2-1.0); Calcium 8.8 mg/dl (8.6-10.3); Creatinine Clr Calc Pharmacy 47.9 ml/min; Eosinophils # (auto) 0.42 K/uL (0.00-0.50); Eosinophils % (auto) 2.8 %; Est GFR (Non-African American) 63.8 ml/min; Immature Granulocytes # (auto) 0.08 K/uL (0.01-0.20); Immature Granulocytes % (auto) 0.5 %; Lymphocytes # (auto) 5.03 K/uL (1.20-3.40); Lymphocytes % (auto) 33.7 %; Monocytes # (auto) 0.96 K/uL (0.11-0.59); Monocytes % (auto) 6.4 %; Neutrophils # (auto) 8.35 K/uL (1.40-6.50); Neutrophils % (auto) 55.9 %; Potassium 4.3 mmol/L (3.5-5.1); Total Protein 7.5 gm/dl (6.0-8.3)
[2023-12-11 11:15] LABS: Troponin I High Sensitivity 30.3 pg/ml (0-14)
[2023-12-11 11:16] LABS: Prothrombin Time 10.9 Seconds (9.0-12.0)
--- NOTE | 2023-12-11 11:23 | XRay Report ---
XR chest 1V portable HISTORY: Sepsis COMPARISON: Chest 12/06/2023. FINDINGS: The lungs are hyperexpanded with apical predominant emphysematous changes. No pneumothorax. No pleural effusions. Mild interstitial thickening persists and is likely chronic. The heart is norm al in size. There is metallic anchor within the right humeral head and old right-sided rib fractures. No acute fractures identified. IMPRESSION: No significant change compared to the prior study. No acute process. Emphysema again noted. ACT 112: Negative or not required by law. Electronically signed by: Virgilio Briones M.D. 12/11/2023 11:22 AM
[2023-12-11 11:26] LABS: Thyroid Stimulating Hormone 5.53 uIu/ml (0.300-4.500)
[2023-12-11 12:04] LABS: T4 Free Thyroxine 1.17 ng/dl (0.61-1.60)
--- NOTE | 2023-12-11 12:08 | History & Physical Report ---
Date of Service December 11, 2023 Assessment & Plan (1) Acute on chronic respiratory failure with hypoxia and hypercapnia: (2) Elevated troponin level: Plan Kae Johnston is a 73y/o F with PMHx of [place] [February 2023], CAD s/p stent placement, HTN, dyslipidemia, chronic nonspecific lung disease, COPD group B, HLD, acquired hypothyroidism, hematuria of undiagnosed cause, osteoporosis, common migraine, generalized anxiety disorder, tobacco use disorder, history of C. diff diarrhea, GERD and other problems listed below who presented to the ED via EMS for evaluation of SOB/dyspnea. Patient was just discharged home yesterday (12/09). Was admitted for chest pain [ACS ruled-out] and complicated UTI. Troponin x 3 negative, EKG with NSR and nonspecific ST abnormalities. Echocardiogram revealed mild concentric LVH, normal left ventricular wall motion, EF 55-60% and mildly elevated pulmonary artery systolic pressure. She was seen and evaluated by cardiology. During the hospitalization, losartan (50mg daily) and spironolactone (25mg daily) were added for high blood pressure. No further cardiac testing was required. Chest pain completely resolved. Her amiodarone was stopped. Patient had reported some subjective fevers, pain and burning while passing urine during that admission. CTAP at that time was concerning for right pyelitis and cystitis. Urine culture grew E. coli more than 100 K, pansensitive [Gamma strep not Enterococcus]. Patient was treated with IV ABX. At discharge, she was placed on oral Augmentin 875-125mg BID x 4 days. She was also placed on po Protonix 40mg daily secondary to dyspepsia concerns. She was seen and evaluated by GI. Acute on Chronic Respiratory Failure w/ Hypoxia & Hypercapnia Patient wears 2L via NC at baseline. Was found by EMS this morning in tripod positioning. Notable conversational dyspnea as well. SpO2 was in the 80s on baseline 2L via NC per EMS. O2 was increased to 4L. 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 Tachycardic, tachypneic on arrival to ED. Was visibly cyanotic. On BiPAP currently. Presenting VBG - pH 7.13, pCO2 107, HCO3 35. Notable respiratory acidosis. Given IV mag x 2 bags in ED. ABG at 12:56 significantly improved - pH 7.34, pCO2 62. Repeat VBG tonight and in AM. Leukocytosis noted. Lactate 2.3, procalcitonin negative. UA negative. CXR negative for any acute findings. Biofire pending. Repeat lactate in AM. Blood cx pending. Pulmonary toilet w/ scheduled nebs, incentive spirometry, flutter valve & Mucinex. IV Solu-Medrol 40mg daily. Pulmonary consult pending. Continue home inhalers. Helms cath in place, bedrest. Elevated Troponin: Trop 30.3 on presentation, repeat trop 66.1 at 12:17. Patient w/o chest pain. Continue to trend trop Q6H x 3. Limited echo pending. Complicated UTI - From Previous Admission: CTAP last admission concerning for right pyelitis and cystitis. Urine culture grew E. coli more than 100 K, pansensitive [Gamma strep not Enterococcus]. Was treated with IV ABX. Placed on oral Augmentin 875-125mg BID x 4 days at time of d/c - will continue until 12/13. UA improved. HTN: Continue losartan, spironolactone & Coreg. Hold K+ supplement, Lasix for now. Monitor BP closely. Dyslipidemia, CAD s/p Stenting: Continue statin, Eliquis. Other Chronic Medical Conditions: Hypothyroidism, osteoporosis, urinary incontinence, GERD --> Can continue home medications for these specific conditions. Hold trazodone 2/ respiratory status. 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 Code Status: FULL CODE PCP: Ronald Cortes MD Disposition: Admit to PCU/Telemetry Patient seen in collaboration with Dr. Turcios. Please see addendum. I spent a total of 65 minutes coordinating, documenting, and providing care for this patient excluding time spent in the performance of separately billed services. This included personally reviewing all current laboratories and imaging studies, medical reconciliation, outpatient chart review and discussion with specialists. This chart was completed in part utilizing Speech Voice Recognition Software. Grammatical errors, random word insertions, pronoun errors, and incomplete sentences are an occasional consequence of this system due to software limitations, ambient noise, and hardware issues. Any formal questions or concerns about the content, text, or information contained within the body of this dictation should be directly addressed to the provider for clarification. History of Present Illness Chief Complaint: SOB/Dyspnea Primary Care Provider: Ronald Cortes MD Kae Johnston is a 73y/o F with PMHx of [place] [February 2023], CAD s/p stent placement, HTN, dyslipidemia, chronic nonspecific lung disease, COPD group B, HLD, acquired hypothyroidism, hematuria of undiagnosed cause, osteoporosis, common migraine, generalized anxiety disorder, tobacco use disorder, history of C. diff diarrhea, GERD and other problems listed below who presented to the ED via EMS for evaluation of SOB/dyspnea. History obtained from patient and associated chart review. Patient was just discharged home yesterday (12/09). Was admitted for chest pain [ACS ruled-out] and complicated UTI. Troponin x 3 negative, EKG with NSR and nonspecific ST abnormalities. Echocardiogram revealed mild concentric LVH, normal left ventricular wall motion, EF 55-60% and mildly elevated pulmonary artery systolic pressure. She was seen and evaluated by cardiology. During the hospitalization, losartan (50mg daily) and spironolactone (25mg daily) were added for high blood pressure. No further cardiac testing was required. Chest pain completely resolved. Her amiodarone was stopped. Patient had reported some subjective fevers, pain and burning while passing urine during that admission. CTAP at that time was concerning for right pyelitis and cystitis. Urine culture grew E. coli more than 100 K, pansensitive [Gamma strep not Enterococcus]. Patient was treated with IV ABX. At discharge, she was placed on oral Augmentin 875-125mg BID x 4 days. She was also placed on po Protonix 40mg daily secondary to dyspepsia concerns. She was seen and evaluated by GI. Patient wears 2L via NC at baseline. Was found by EMS this morning in tripod positioning. Notable conversational dyspnea as well. SpO2 was in the 80s on baseline 2L via NC per EMS. O2 was increased to 4L. 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 Upon arrival to ED, patient was visibly cyanotic. Was also tachycardic and hypertensive. Unable to speak between breaths. Daughter, Cindy, reports that the patient was doing well up until this morning. Mentions she was out shopping yesterday and went out to eat at [employer]. Daughter left the house this morning and she was doing fine. However, when she returned home from the store, the patient was found to be very short of breath and kind of "slumped over." Daughter subsequently called EMS. Allergies Allergy/AdvReac Type Severity Reaction Status Date / Time bee venom protein (honey bee) Allergy Severe SWELLING Verified 12/06/23 12:51 SEVERE doxycycline Allergy Unknown Unknown - Unverified 12/06/23 12:51 On file w/ [facility] No Known Drug Allergies Allergy Unknown . Verified 06/02/17 11:01 Home Medications Medication Instructions Recorded Confirmed Type multivitamin 1 tab PO DAILY #0 tabs 02/07/14 12/11/23 History acetaminophen 325 mg tablet 650 mg PO Q6 PRN Pain #0 tabs 04/22/17 12/11/23 History (Tylenol) calcium carbonate 600 mg-vitamin 1 tab PO DAILY ##0 04/22/17 12/11/23 History D3 10 mcg (400 unit) tablet (Calcium 600 + D(3)) omega 6-ndl-emo-fish oil 1,000 mg 1 cap PO DAILY #0 caps 04/22/17 12/11/23 History (120 mg-180 mg) capsule (Fish Oil) magnesium oxide 400 mg PO BID #0 tabs 06/01/17 12/11/23 History alendronate 70 mg tablet 70 mg PO WK 12/06/23 12/11/23 History apixaban 5 mg tablet (Eliquis) 5 mg PO BID 12/06/23 12/11/23 History atorvastatin 40 mg tablet 40 mg PO QAM 12/06/23 12/11/23 History carvedilol 12.5 mg tablet 18.75 mg PO BID 12/06/23 12/11/23 History citalopram 40 mg tablet 40 mg PO QAM 12/06/23 12/11/23 History clopidogrel 75 mg tablet 75 mg PO QAM 12/06/23 12/11/23 History fluticasone propionate 115 2 puff inhalation BID 12/06/23 12/11/23 History mcg-salmeterol 21 mcg/actuation HFA inhaler furosemide 40 mg tablet 40 mg PO DAILY 12/06/23 12/11/23 History gabapentin 300 mg capsule 300 mg PO TID 12/06/23 12/11/23 History levothyroxine 25 mcg tablet 25 mcg PO DAILYBB 12/06/23 12/11/23 History oxybutynin chloride 5 mg 5 mg PO DAILY 12/06/23 12/11/23 History tablet,extended release 24 hr potassium chloride 10 mEq 10 meq PO BID 12/06/23 12/11/23 History tablet,extended release(part/cryst) (Klor-Con M) trazodone 50 mg tablet 50 - 100 mg PO HS 12/06/23 12/11/23 History amoxicillin 875 mg-potassium 1 tab PO Q12H 4 days #8 tabs 12/09/23 12/11/23 Rx clavulanate 125 mg tablet nitroglycerin 0.4 mg sublingual 0.4 mg sublingual Q5M PRN chest 12/09/23 12/11/23 Rx tablet (Nitrostat) pain #30 tabs pantoprazole 40 mg tablet,delayed 40 mg PO DAILY #30 tabs 12/09/23 12/11/23 Rx release (Protonix) losartan 50 mg tablet 50 mg PO DAILY #30 tabs 12/10/23 12/11/23 Rx spironolactone 25 mg tablet 25 mg PO DAILY #30 tabs 12/10/23 12/11/23 Rx Past Med/Surg History Problem List COPD with exacerbation Elevated troponin level Acute on chronic respiratory failure with hypoxia and hypercapnia (Acute) Absent pedal pulses COPD (chronic obstructive pulmonary disease) Dyslipidemia, goal LDL below 70 PAF (paroxysmal atrial fibrillation) Uncontrolled hypertension ASCVD (arteriosclerotic cardiovascular disease) Chest pain at rest Thickened endometrium Elevated brain natriuretic peptide (BNP) level (Acute) Nausea & vomiting (Acute) Chest pain (Acute) Asthma exacerbation (Acute) Gastroenteritis (Acute) Fall in home (Acute) CHI (closed head injury) (Acute) Scalp laceration (Acute) Facial laceration (Acute) Heart disease HTN (hypertension) Kidney disease Bronchitis Fall in home (Acute) Hyponatremia (Acute) Hypokalemia (Acute) Abdominal pain Diarrhea Vomiting Medical History Macular degeneration Asthma Tobacco use disorder Coronary atherosclerosis of platinum coronary vessel Benign hypertension Atrial fibrillation Diabetes Surgical History H/O heart surgery History of cholecystectomy Hx of tubal ligation Social History Smoking Status: Former smoker Tobacco Type: Cigarettes Second Hand Exposure: No; Do You Dip or Chew Tobacco: No; Hx Alcohol Use: No Hx Substance Use: Yes Preferred Language: Japanese Communication Ability: Effective 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 Physical Exam Physical Exam: Please refer to Dr. Turcios's addendum for physical examination findings. Results & Data Results & Data Vital Signs (Past 12 Hours) Vital Signs Pulse Pulse Resp BP Pulse Ox O2 Del Method O2 Flow Rate 12/11/23 11:39 104 H 23 100 12/11/23 11:10 114 H 32 H 100 BiPAP 12/11/23 10:55 123 H 32 H 100 12/11/23 10:36 97 Nasal Cannula 4 12/11/23 10:33 117 H 12/11/23 10:26 97 Nasal Cannula 4 12/11/23 10:26 Nasal Cannula 4 12/11/23 10:26 119 H 33 H 191/160 H 97 Nasal Cannula 4 FiO2 12/11/23 11:39 35 12/11/23 11:10 35 12/11/23 10:55 35 12/11/23 10:36 12/11/23 10:33 12/11/23 10:26 12/11/23 10:26 12/11/23 10:26 Laboratory Results Short CBC 12/11/23 Range/Units 10:33 WBC 14.94 H (4.8-10.8) K/ul Hgb 12.2 (12.0-16.0) g/dl Hct 38.7 (37.0-47.0) % Plt Count 343 D (130-400) K/uL BMP 12/11/23 10:33 Sodium 141 Potassium 4.3 D Chloride 100 Carbon Dioxide 35 H BUN 9 Creatinine 0.89 Glucose 222 H Calcium 8.8 Liver Function 12/11/23 Range/Units 10:33 Total Bilirubin 0.5 (0.2-1.0) mg/dl Direct Bilirubin 0.2 (0-0.2) mg/dl AST 27 (13-39) U/L ALT 15 (7-52) U/L Alkaline Phosphatase 107 H (34-104) U/L Albumin 3.7 (3.4-5.0) gm/dl Diagnostic Findings Chest X-Ray 12/11/23 10:36 XR chest 1V portable HISTORY: Sepsis COMPARISON: Chest 12/06/2023. FINDINGS: The lungs are hyperexpanded with apical predominant emphysematous changes. No pneumothorax. No pleural effusions. Mild interstitial thickening persists and is likely chronic. The heart is normal in size. There is metallic anchor within the right humeral head and old right-sided rib fractures. No acute fractures identified. IMPRESSION: No significant change compared to the prior study. No acute process. Emphysema again noted. ACT 112: Negative or not required by law. Electronically signed by: Virgilio Briones M.D. 12/11/2023 11:22 AM Medications Administered Discontinued Medications Albuterol (Albut/Ipratrop 3mg/0.5mg Neb 3 Ml Vial) Confirm Administered Dose 9 ml .ROUTE .STK-MED ONE Stop: 12/11/23 10:36 Last Admin: 12/11/23 11:06 Dose: 9 ml Documented By: JACKSON Albuterol (Albut/Ipratrop 3mg/0.5mg Neb 3 Ml Vial) 12 ml NEB ONE ONE; Protocol Stop: 12/11/23 10:45 Last Admin: 12/11/23 11:06 Dose: Not Given Documented By: JACKSON Magnesium Sulfate/Dextrose (Magnesium Sulfate / D5w) 1 gm in 100 mls @ 600 mls/hr IV Q10M GELACIO Stop: 12/11/23 11:02 Last Admin: 12/11/23 11:05 Dose: 600 mls/hr Documented By: Infusion: 12/11/23 10:58 Dose: Infused Documented By: Admin: 12/11/23 10:47 Dose: 600 mls/hr Documented By: JACKSON Famotidine (Pepcid 20mg Iv Push) 20 mg in 5 mls @ 2.5 mls/min IV NOW STA Stop: 12/11/23 10:54 Last Admin: 12/11/23 11:05 Dose: 2.5 mls/min Documented By: JACKSON Ondansetron HCl (Ondansetron Inj 2 Mg/Ml 2 Ml Vial) 4 mg IV NOW STA Stop: 12/11/23 10:54 Last Admin: 12/11/23 11:05 Dose: 4 mg Documented By: JACKSON Code Status & VTE Plan Code Status FULL CODE Supervising Physician Co-Signing Physician Notes Patient is a 73-year-old female with history of coronary artery disease, COPD, hypothyroidism, dyslipidemia, hypertension and other medical problems presents with history of worsening shortness of breath, was found to be cyanotic. Patient was recently admitted and evaluated for chest pain and was also diagnosed to have UTI. After being discharged yesterday from the hospital, patient started to have slowly worsening shortness of breath and became more somnolent. Patient's daughter called EMS and so was brought to ED for further evaluation. Please review HPI for complete details of presentation. She was placed on BiPAP while in ED. Noted to have hypertensive urgency later blood pressure improved. She was slowly weaned off of BiPAP to nasal cannula. She denied any chest pain, nausea, vomiting, abdominal pain. I personally reviewed blood work and imaging studies. Physical Exam: Vitals signs as noted above General Appearance: Thin, frail, chronically ill appearing, mild respiratory distress Head: normocephalic, Atraumatic Eyes: normal inspection, EOMI Neck: supple, Trachea midline Respiratory/Chest: Decreased breath sounds, scattered rhonchi, No accessory muscle use Cardiovascular: S1, S2, No murmur Abdomen/GI:Soft, Non tender, Bowel sounds present Extremities/Musculoskeletal:normal inspection, no edema Neurologic/Psych:AAOX3, grossly no focal neurological deficits Skin: normal color, warm Acute on chronic respiratory failure with hypoxia, hypercarbia Acute respiratory acidosis Acute COPD exacerbation Tobacco use disorder Troponin elevation likely demand ischemia secondary to above Hypertensive urgency likely situational Sinus tachycardia Recent UTI Agree with IV Solu-Medrol, nebs, continue Augmentin, pulmonary hygiene with flutter Pulmonology consulted Continue home inhalers Resume home antihypertensives, IV labetalol as needed Check A1c given hyperglycemia Check resting echo if troponin trends upwards I personally interviewed and examined at bedside. Patient's care is coordinated with Ce Castellanos PA-C. I have reviewed the advanced practitioner's documentation, and I agree with plan of care. Please refer to the documentation above for details of patient's presentation and for discussion of other issues. I spent a total [id number] coordinating, documenting, and providing care for this patient excluding time spent in the performance of separately billed services.
[2023-12-11 12:13] LABS: Appearance Urine Clear (Clear); Bacteria Urine Automated None Seen (None Seen); Bilirubin Urine Negative (Negative); Blood Urine Negative (Negative); Color Urine Yellow; Epithelial Cell Urine Auto 0-2 /hpf (0-2); Glucose Urine UA Negative (Negative); Ketones Urine Negative (Negative); Leukocyte Esterase Urine Negative (Negative); Nitrite Urine Negative (Negative); Protein Urine Trace (Negative); RBC Urine Automated 0-2 /hpf (0-2); Specific Gravity Urine 1.011 (1.000-1.030); Urobilinogen Urine Negative (Negative); WBC Urine Automated 0-5 /hpf (0-5); pH Urine 6.5 (4.5-7.5)
[2023-12-11 13:12] LABS: iSTAT Arterial Blood Gas HCO3 33 meg/L (19-24); iSTAT Arterial Blood Gas pCO2 62 mmHg (35-46); iSTAT Arterial Blood Gas pH 7.34 (7.35-7.45); iSTAT Arterial Blood Gas pO2 109 mmHg (80-95); iSTAT Carbon Dioxide 35 mmol/L (24-31); iSTAT Hematocrit 33 % (37-47); iSTAT Hemoglobin 11.2 g/dl (12.0-16.0); iSTAT Sodium 136 mmol/L (135-144)
--- NOTE | 2023-12-11 14:23 | Pulmonary Consultation ---
Date of Consultation December 11, 2023 Assessment & Plan (1) Acute on chronic respiratory failure with hypoxia and hypercapnia: In the setting of acute COPD with exacerbation. Chest x-ray without acute infiltrative findings. Had recent BioFire testing performed which was unremarkable. Question if this is in relationship to her new vape use. She does not appear to have a sequela of recent upper respiratory infection which would typically exacerbate the patient with severe underlying obstructive lung dysfunction. Would hold on her Advair and placed patient on budesonide and performance in the interim. Agree with continuing IV steroids. Uncertain of the utility of antibiotics at this juncture. Patient was with severe CO2 retention on presentation which was responded to BiPAP therapy. Patient may benefit for evaluation for possible NIV therapy to be used nocturnally. Otherwise, patient is doing well post aggressive measures including steroids, DuoNebs, and NIV. Would strongly encourage smoking cessation. (2) COPD with exacerbation: As above. Thankfully, patient has improved at this point. Unfortunately, we do not have outpatient records from a pulmonary perspective. Would recommend CT during hospitalization to evaluate patient's lung parenchyma for possible infiltrative contribution or other structural changes in the patient with a substantial smoking history. (3) Tobacco use disorder: Would highly recommend smoking cessation for this patient with likely severe underlying obstructive lung dysfunction. Plan Thank you for allowing us to participate in the care of this patient. Please feel free to reach out to us for any further questions. History of Present Illness Reason for Consultation: Acute on chronic resp failure Requesting Physician: Ce Castellanos PA-C Attending Physician: Ce Castellanos PA-C History of Present Illness Patient is a 73-year-old female with a significant past medical history of COPD which is managed by [facility] pulmonary group in the outpatient setting. She takes Advair as her maintenance inhaler as well as Spiriva. She has a rescue inhaler that she uses well. She does not have a nebulizer or treatments othe rwise. She was recently admitted in the setting of chest pain rule out. She was discharged from the hospital yesterday and daughter reports that she went directly to the vape store where she purchased a brand-new vape which she had not used previously - it was strawberry flavored. She also had dinner and was able to sleep last night. Today, when her daughter was leaving the house, she was complaining of difficulty with breathing. EMS was contacted and the patient was found to be hypoxic. She received DuoNeb treatments as well as IV Solu- Medrol. Patient was subsequently placed on BiPAP while in the emergency department. She was noted to have a significant respiratory acidosis with CO2 retention. She was admitted to the hospitalist service and pulmonary medicine consulted for her acute on chronic hypoxic respiratory failure with hypercapnia in the setting of respiratory distress. Upon evaluation in room C10, the patient is awake, alert, and oriented. She reports that she is feeling better at this time. She offers no complaints of fevers or chills. No recent upper respiratory infections. She denies prior hospitalization in the setting of COPD exacerbation. Patient has smoked for many years and continues to do so. She also vapes on a regular basis. Patient reports feeling better after utilization of BiPAP. Daughter reports that she is now awake and alert as previously she was confused when ambulance had arrived. Allergies Allergy/AdvReac Type Severity Reaction Status Date / Time bee venom protein (honey bee) Allergy Severe SWELLING Verified 12/06/23 12:51 SEVERE doxycycline Allergy Unknown Unknown - Unverified 12/06/23 12:51 On file w/ [facility] No Known Drug Allergies Allergy Unknown . Verified 06/02/17 11:01 Home Medications Medication Instructions Recorded Confirmed Type multivitamin 1 tab PO DAILY #0 tabs 02/07/14 12/11/23 History acetaminophen 325 mg tablet 650 mg PO Q6 PRN Pain #0 tabs 04/22/17 12/11/23 History (Tylenol) calcium carbonate 600 mg-vitamin 1 tab PO DAILY ##0 04/22/17 12/11/23 History D3 10 mcg (400 unit) tablet (Calcium 600 + D(3)) omega [id number]-fish oil 1,000 mg 1 cap PO DAILY #0 caps 04/22/17 12/11/23 History (120 mg-180 mg) capsule (Fish Oil) magnesium oxide 400 mg PO BID #0 tabs 06/01/17 12/11/23 History alendronate 70 mg tablet 70 mg PO WK 12/06/23 12/11/23 History apixaban 5 mg tablet (Eliquis) 5 mg PO BID 12/06/23 12/11/23 History atorvastatin 40 mg tablet 40 mg PO QAM 12/06/23 12/11/23 History carvedilol 12.5 mg tablet 18.75 mg PO BID 12/06/23 12/11/23 History citalopram 40 mg tablet 40 mg PO QAM 12/06/23 12/11/23 History clopidogrel 75 mg tablet 75 mg PO QAM 12/06/23 12/11/23 History fluticasone propionate 115 2 puff inhalation BID 12/06/23 12/11/23 History mcg-salmeterol 21 mcg/actuation HFA inhaler furosemide 40 mg tablet 40 mg PO DAILY 12/06/23 12/11/23 History gabapentin 300 mg capsule 300 mg PO TID 12/06/23 12/11/23 History levothyroxine 25 mcg tablet 25 mcg PO DAILYBB 12/06/23 12/11/23 History oxybutynin chloride 5 mg 5 mg PO DAILY 12/06/23 12/11/23 History tablet,extended release 24 hr potassium chloride 10 mEq 10 meq PO BID 12/06/23 12/11/23 History tablet,extended release(part/cryst) (Klor-Con M) trazodone 50 mg tablet 50 - 100 mg PO HS 12/06/23 12/11/23 History amoxicillin 875 mg-potassium 1 tab PO Q12H 4 days #8 tabs 12/09/23 12/11/23 Rx clavulanate 125 mg tablet nitroglycerin 0.4 mg sublingual 0.4 mg sublingual Q5M PRN chest 12/09/23 12/11/23 Rx tablet (Nitrostat) pain #30 tabs pantoprazole 40 mg tablet,delayed 40 mg PO DAILY #30 tabs 12/09/23 12/11/23 Rx release (Protonix) losartan 50 mg tablet 50 mg PO DAILY #30 tabs 12/10/23 12/11/23 Rx spironolactone 25 mg tablet 25 mg PO DAILY #30 tabs 12/10/23 12/11/23 Rx Patient History Medical History Macular degeneration Asthma Tobacco use disorder Coronary atherosclerosis of nikolai coronary vessel Benign hypertension Atrial fibrillation Diabetes Surgical History H/O heart surgery History of cholecystectomy Hx of tubal ligation Social History Smoking Status: Former smoker Tobacco Type: Cigarettes Second Hand Exposure: No; Do You Dip or Chew Tobacco: No; Hx Alcohol Use: No Hx Substance Use: Yes Preferred Language: German Communication Ability: Effective 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 All else were negative. Physical Exam Physical Exam: VITAL SIGNS Vital signs and nursing notes were reviewed. GENERAL 73-year-old appearing her stated age who is in no acute distress. Communicates well with provider and answers questions appropriately. SKIN Without rashes or lesions. NOSE Midline and without cyanosis. MOUTH/OROPHARYNX Without perioral cyanosis. NECK Neck with FROM. LUNGS Chest wall evaluation demonstrates increased chest wall A:P diameter. Auscultation reveals delayed air entry with rhonchorous breath sounds. No rales. CARDIAC RRR with S1/S2. No murmur, rubs, or gallops appreciated. ABDOMEN Abdominal inspection demonstrates an obese abdomen. BS normoactive all four quadrants. No tenderness, palpable masses, or ascites noted. EXTREMITIES Nail clubbing not present. No peripheral cyanosis. No pretibial edema present. +3/5 radial palpated throughout. PSYCH A&Ox3 and cooperates fully with examiner. Pt is very pleasant and interacts well with examiner. Results & Data Results & Data Vital Signs (Past 12 Hours) Vital Signs Pulse Pulse Resp BP Pulse Ox O2 Del Method O2 Flow Rate 12/11/23 13:30 75 15 100 12/11/23 13:03 79 20 134/88 100 12/11/23 12:51 78 21 134/88 100 12/11/23 12:45 76 19 133/86 98 12/11/23 12:00 80 23 145/82 H 98 12/11/23 11:39 104 H 23 100 12/11/23 11:30 83 23 158/100 H 100 BiPAP 12/11/23 11:10 114 H 32 H 100 BiPAP 12/11/23 11:01 115 H 29 H 136/102 H 100 12/11/23 10:55 123 H 32 H 100 12/11/23 10:36 97 Nasal Cannula 4 12/11/23 10:33 117 H 12/11/23 10:26 97 Nasal Cannula 4 12/11/23 10:26 Nasal Cannula 4 12/11/23 10:26 119 H 33 H 191/160 H 97 Nasal Cannula 4 FiO2 12/11/23 13:30 12/11/23 13:03 12/11/23 12:51 12/11/23 12:45 12/11/23 12:00 12/11/23 11:39 35 12/11/23 11:30 12/11/23 11:10 35 12/11/23 11:01 12/11/23 10:55 35 12/11/23 10:36 12/11/23 10:33 12/11/23 10:26 12/11/23 10:26 12/11/23 10:26 PG Care Time/CCT Total # of Minutes Spent Total Time Spent with Patient: Total time spent is greater than 50% in coordination of care (as documented) at patient's floor/unit and/or counseling patient: Coding Level of Care Code 40525 INT INP/OBS CARE 3/75MIN Diagnoses Acute on chronic respiratory failure with hypoxia and hypercapnia J96.21; J96.22 COPD with exacerbation J44.1 Tobacco use disorder F17.200
[2023-12-11 14:56] LABS: Adenovirus PCR Not Detected (NotDetected); Bordetella parapertussis PCR Not Detected (NotDetected); Bordetella pertussis PCR Not Detected (NotDetected); Chlamydia pneumoniae PCR Not Detected (NotDetected); Coronavirus 229E PCR Not Detected (NotDetected); Coronavirus CoV-2 (COVID19)PCR Not Detected (NotDetected); Coronavirus HKU1 PCR Not Detected (NotDetected); Coronavirus NL63 PCR Not Detected (NotDetected); Coronavirus OC43PCR Not Detected (NotDetected); Human Metapneumovirus PCR Not Detected (NotDetected); Influenza A PCR Not Detected (NotDetected); Influenza B PCR Not Detected (NotDetected); Mycoplasma pneumoniae PCR Not Detected (NotDetected); Parainfluenza Virus 1 PCR Not Detected (NotDetected); Parainfluenza Virus 2 PCR Not Detected (NotDetected); Parainfluenza Virus 3 PCR Not Detected (NotDetected); Parainfluenza Virus 4 PCR Not Detected (NotDetected); Respiratory Syncytial VirusPCR Not Detected (NotDetected); Rhinovirus/Enterovirus PCR Not Detected (NotDetected)
[2023-12-11] MEDS ORDERED: LABETALOL HCL IV 5 MG/ML 20ML IV PRN ×2 (15:02→19:46)
[2023-12-11] MEDS ORDERED: POLYETHYLENE (MIRALAX) 17 GM PACK PO PRN (15:02)
[2023-12-11] MEDS ORDERED: MAGNESIUM HYDROXIDE SUSP 30 ML UDC PO PRN (15:02)
[2023-12-11] MEDS ORDERED: ONDANSETRON INJ 2 MG/ML 2 ML VIAL IV PRN (15:02)
[2023-12-11] MEDS ORDERED: ALBUT/IPRATROP 3MG/0.5MG NEB 3 ML VIAL NEB PRN (16:00)
[2023-12-11] MEDS: ACETAMINOPHEN 325 MG TAB PO PRN (16:22)
[2023-12-11] MEDS: AMOXICILLIN/CLAVULANATE 875 MG TAB PO SCH (16:22)
[2023-12-11] MEDS: ALBUT/IPRATROP 3MG/0.5MG NEB 3 ML VIAL NEB SCH (16:35)
[2023-12-11] MEDS: carvediloL 6.25 MG TAB PO SCH (16:36)
[2023-12-11] MEDS: GABAPENTIN 300 MG CAP PO SCH (16:37)
[2023-12-11 18:27] LABS: Base Excess VBG 8.7 mEq/L; HCO3 VBG 36 mmol/L; Oxygen Saturation VBG 84.7 %; PCO2 VBG 63 mmHg (38-50); PO2 VBG 52 mmHg; pH VBG 7.37 (7.36-7.41)
[2023-12-11] MEDS: BUDESONIDE 0.5 MG/2 ML VIAL (PULMICORT) NEB SCH (19:23)
[2023-12-11] MEDS: FORMOTEROL 20 MCG/2 ML VIAL NEB SCH (19:23)
[2023-12-11] MEDS: guaiFENesin 600 MG TABCR PO SCH (21:00)
[2023-12-11] MEDS: MAGNESIUM OXIDE 400 MG TAB PO SCH (21:01)
[2023-12-11] MEDS: APIXABAN 5 MG TABLET PO SCH (21:01)
--- NOTE | 2023-12-12 00:34 | Electrocardiogram Report ---
Test Reason : Blood Pressure : */* mmHG Vent. Rate : 117 BPM Atrial Rate : 117 BPM P-R Int : 174 ms QRS Dur : 100 ms QT Int : 322 ms P-R-T Axes : 60 20 88 degrees QTcB Int : 449 ms Sinus tachycardia Septal infarct , age undetermined Abnormal ECG When compared with ECG of 08-Dec-2023 06:10, Sinus rhythm has replaced Atrial fibrillation Vent. rate has increased by 52 bpm QRS duration has increased Confirmed by Boston Salinas ([id number]) on 12/12/2023 12:34:38 AM Referred By: Confirmed By: Boston Salinas
[2023-12-12] MEDS: LEVOTHYROXINE SODIUM 25 MCG TABLET PO SCH (05:43)
[2023-12-12 06:34] LABS: Base Excess VBG 12.2 mEq/L; HCO3 VBG 40 mmol/L; Oxygen Saturation VBG < 60.0 %; PCO2 VBG 67 mmHg (38-50); PO2 VBG 25 mmHg; pH VBG 7.38 (7.36-7.41)
[2023-12-12 06:42] LABS: Hematocrit (blood only) 32.9 % (37.0-47.0); Hemoglobin 10.1 g/dl (12.0-16.0); Immature Granulocytes # (auto) 0.07 K/uL (0.01-0.20); Immature Granulocytes % (auto) 0.7 %; Lymphocytes # (auto) 0.94 K/uL (1.20-3.40); Lymphocytes % (auto) 9.2 %; Mean Corpuscular Hemoglobin 29.7 pg (25.0-34.0); Mean Corpuscular Hgb Conc 30.7 g/dL (32.0-36.0); Mean Corpuscular Volume 96.8 fL (80.0-100.0); Mean Platelet Volume 9.5 fL (9.4-12.4); Monocytes # (auto) 0.39 K/uL (0.11-0.59); Monocytes % (auto) 3.8 %; Neutrophils % (auto) 86.3 %; Platelet Count 258 K/uL (130-400); RDW Coefficient of Variation 13.7 % (11.5-14.5); RDW Standard Deviation 48.9 fL (36.4-46.3)
[2023-12-12 06:56] LABS: Albumin Level 3.2 gm/dl (3.4-5.0); BUN Creatinine Ratio 16.4 (10-20); Bilirubin,Total 0.4 mg/dl (0.2-1.0); Calcium 8.4 mg/dl (8.6-10.3); Creatinine Clr Calc Pharmacy 58.4 ml/min; Est GFR (Non-African American) 81.1 ml/min; Globulin 3.3 gm/dl (2.5-4.0); Magnesium 2.2 mg/dl (1.7-2.4); Phosphorus 3.4 mg/dl (2.5-4.9); Potassium 4.1 mmol/L (3.5-5.1); Total Protein 6.5 gm/dl (6.0-8.3)
[2023-12-12 07:03] LABS: Estimated Average Glucose 114 mg/dl; Hemoglobin A1C 5.6 % (4.5-5.6)
--- NOTE | 2023-12-12 07:43 | Electrocardiogram Report ---
Test Reason : Blood Pressure : */* mmHG Vent. Rate : 63 BPM Atrial Rate : 63 BPM P-R Int : 158 ms QRS Dur : 84 ms QT Int : 512 ms P-R-T Axes : 64 60 44 degrees QTcB Int : 523 ms Normal sinus rhythm Prolonged QT Abnormal ECG When compared with ECG of 11-Dec-2023 10:30, Vent. rate has decreased by 54 bpm Nonspecific T wave abnormality no longer evident in Lateral leads Confirmed by Meliton Falcon ([id number]) on 12/12/2023 7:43:01 AM Referred By: REFERRED SELF Confirmed By: Meliton Falcon
--- NOTE | 2023-12-12 08:23 | Pulmonology Progress Note ---
Date of Service December 12, 2023 Assessment & Plan (1) Acute on chronic respiratory failure with hypoxia and hypercapnia: (2) COPD with exacerbation: (3) Tobacco use disorder: Plan 2D echo 12/07/2023: EF 55-60%, mild concentric LVH, PASP 43 mmHg -- Acute on chronic hypercapnic hypoxic respiratory failure Likely secondary to exacerbation of underlying COPD On 2 L oxygen on exertion and nightly at home Respiratory bio fire negative for everything Procalcitonin negative BNP 826 Try to keep O2 saturation around 88-92% --Pulmonary hypertension Likely type III -- Current smoker Reports of quitting explained to the patient Patient is a candidate for screening CAT scan given the significant smoking history. Can consider CAT scan as an outpatient Plan: KRISTEN Wise rather give the patient Incruse Continue with formoterol and budesonide nebulized I will repeat an ABG again today to see where the pCO2 stands. If patient is still hypercapnic then NIV could be thought of on discharge. Given the elevated BNP, recommend resuming patient's Lasix 40 mg on a daily basis Can transition to p.o. prednisone as of tomorrow Was discussed with RN at bedside Please note the above document was generated using voice recognition software. It may contain grammatical, syntax or spelling errors.Any formal questions or concerns about the content, text or information contained within the body of this dictation should be directly addressed to the provider for clarification. Admission and Anticipated Discharge Date Admission Date: December 11, 2023 Subjective Patient seen and examined at bedside. No acute distress, no adverse events overnight She was on 2 L nasal cannula, saturating 99% while sleeping. She stated that she is feeling better since she came to the hospital Denied any chest pain Shortness of breath has improved Occasional cough with clear phlegm No nausea vomiting, fair appetite Review of Systems 2 Review of Systems: All systems reviewed & are unremarkable except as noted in Subjective Physical Exam 2 Physical Exam: Constitutional: No acute distress HEENT: EOMI, PERRLA Respiratory system: Decreased air entry bilaterally, no wheeze, no rhonchi, mild crackles bilateral lower lobes CVS: S1-S2 positive, no murmurs or gallops Abdomen: Soft, nontender, nondistended, positive bowel sounds x4 Extremities: +2 pulses bilaterally radialis/ dorsalis pedis, no cyanosis, no edema Neuro: Awake alert oriented x3 Psych: Normal mood and affect G/U: Positive Helms Skin: no rashes, warm and dry Lymphatic: no cervical or axillary lymphadenopathy Results & Data Results & Data Vital Signs (Past 12 Hours) Vital Signs Temp Pulse Pulse Resp BP BP Pulse Ox 12/12/23 07:43 12/12/23 07:37 36.5 C 71 18 135/70 100 12/12/23 07:18 64 12/12/23 06:52 63 18 100 12/12/23 04:05 36.4 C L 66 16 145/81 H 100 12/12/23 01:14 63 12/11/23 23:41 36.5 C 62 16 117/75 95 12/11/23 22:15 36.7 C 64 18 123/81 97 12/11/23 21:58 O2 Del Method O2 Flow Rate 12/12/23 07:43 Nasal Cannula 3 12/12/23 07:37 Nasal Cannula 4 12/12/23 07:18 12/12/23 06:52 Nasal Cannula 4 12/12/23 04:05 Nasal Cannula 4 12/12/23 01:14 12/11/23 23:41 Nasal Cannula 4 12/11/23 22:15 Nasal Cannula 4 12/11/23 21:58 Nasal Cannula 3 Laboratory Results 12/12/23 06:22 12/12/23 06:22 PG Care Time/CCT Total # of Minutes Spent Total Time Spent with Patient: Total time spent is greater than 50% in coordination of care (as documented) at patient's floor/unit and/or counseling patient: Coding Level of Care Code 75794 SUB INP/OBS CARE 3/50MIN Diagnoses Acute on chronic respiratory failure with hypoxia and hypercapnia J96.21; J96.22 COPD with exacerbation J44.1 Tobacco use disorder F17.200
[2023-12-12] MEDS: CLOPIDOGREL BISULFATE 75 MG TAB PO SCH (08:25)
[2023-12-12] MEDS: CITALOPRAM 40 MG TAB PO SCH (08:25)
[2023-12-12] MEDS: ATORVASTATIN 40 MG TAB PO SCH (08:25)
[2023-12-12] MEDS: PANTOprazole 40 MG TAB PO SCH (08:26)
[2023-12-12] MEDS: methylPREDNISolone 40 MG in SYRINGE 0 ML IV SCH (08:26)
[2023-12-12] MEDS: MULTIVITAMIN TAB PO SCH (08:26)
[2023-12-12] MEDS: SPIRONOLACTONE 25 MG TAB PO SCH (08:26)
[2023-12-12] MEDS: OXYBUTYNIN CHLORIDE XL 5 MG TABCR PO SCH (08:26)
[2023-12-12] MEDS: LOSARTAN POTASSIUM 50 MG TAB PO SCH (08:26)
[2023-12-12] MEDS: FLUTICASONE/VILANTEROL 200/25MCG 14 PUFFS/INHALER INH SCH (08:26)
[2023-12-12] MEDS ORDERED: methylPREDNISolone 1000 MG/16 ML IV SCH (09:00)
[2023-12-12] MEDS: UMECLIDINIUM BROMIDE 62.5MCG/BLISTER 7 PUFFS/INHALER INH SCH (09:14)
[2023-12-12 10:46] LABS: Allen Test Pos (Pos); Base Excess ABG 10.3 mEq/L (-9-1.8); HCO3 ABG 35 mmol/L (19-24); PCO2 ABG 47 mmHg (35-46); PO2 ABG 70 mmHg (80-95); pH ABG 7.48 (7.35-7.45)
--- NOTE | 2023-12-12 10:56 | CT Scan Report ---
CT OF THE CHEST WITHOUT IV CONTRAST CLINICAL HISTORY: Shortness of breath. Evaluate for pneumonia. COMPARISON STUDY: Chest radiograph December 11, 2023. CT DOSE: 205.83 mGy.cm TECHNIQUE: Axial images of the chest were obtained without IV contrast. Images were reviewed in the axial, sagittal, and coronal planes. IV contrast was not administered for this examination. Automat ed exposure control was utilized for the study. A dose lowering technique was utilized adhering to [facility] principles of ALARA. FINDINGS: There are no enlarged axillary, mediastinal or hilar lymph nodes. There is mild dilatation of the descending thoracic aorta measuring 3.6 cm. There is moderate atherosclerotic plaque within t thoracic aorta. The heart is mildly enlarged. There is no pericardial effusion. There are small bi lateral pleural effusions. No pneumothorax. Moderate emphysema. Interlobular septal thickening is pre sent. There is no consolidation to suggest pneumonia. Linear densities and groundglass opacities favo r atelectasis. There are no suspicious pulmonary nodules. Old, healed sternal fracture. IMPRESSION: 1. Mild interstitial pulmonary edema and small bilateral pleural effusions. 2. Emphysema. No consolidation to suggest pneumonia. 3. Mild aneurysmal dilatation of the descending thoracic aorta, measuring 3.6 cm. ACT 112: Negative or not required by law. Electronically signed by: Glenn Mead M.D. 12/12/2023 10:54 AM
[2023-12-12] MEDS: FUROSEMIDE 40 MG TAB PO SCH ×2 (11:35→16:31)
--- NOTE | 2023-12-12 15:18 | Hospitalist Progress Note ---
Date of Service December 12, 2023 Assessment & Plan (1) Acute on chronic respiratory failure with hypoxia and hypercapnia: (2) Elevated troponin level: Plan Kae Johnston is a 73y/o F with PMHx of [place] [February 2023], CAD s/p stent placement, HTN, dyslipidemia, chronic nonspecific lung disease, COPD group B, HLD, acquired hypothyroidism, hematuria of undiagnosed cause, osteoporosis, common migraine, generalized anxiety disorder, tobacco use disorder, history of C. diff diarrhea, GERD presented to the ED via EMS for evaluation of SOB/dyspnea. Acute on Chronic Respiratory Failure w/ Hypoxia & Hypercapnia Patient presented with acute onset of shortness of breath after vaping Tachycardic, tachypneic on arrival to ED. Presenting VBG - pH 7.13, pCO2 107, HCO3 35. Notable respiratory acidosis. Given IV mag x 2 bags in ED. Repeat ABG - pH 7.34, pCO2 62. Repeat VBG tonight and in AM. CXR negative for any acute findings. Biofire negative Pulmonary toilet w/ scheduled nebs, incentive spirometry, flutter valve & Mucinex. IV Solu-Medrol 40mg daily. Continue formoterol and budesonide nebs Demand ischemia Trop 30.3 on presentation, elevated to 128 and downtrended Patient w/o chest pain. Monitor on telemetry Complicated UTI - From Previous Admission: CTAP last admission concerning for right pyelitis and cystitis. Urine culture grew E. coli more than 100 K, pansensitive [Gamma strep not Enterococcus]. Was treated with IV ABX. Placed on oral Augmentin 875-125mg BID x 4 days at time of d/c - will continue until 12/13. HTN: Continue losartan, spironolactone & Coreg. Continue Lasix Dyslipidemia, CAD s/p Stenting: Continue statin, Eliquis. Other Chronic Medical Conditions: Hypothyroidism, osteoporosis, urinary incontinence, GERD --> Can continue home medications for these specific conditions. 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 Code Status: FULL CODE PCP: Ronald Cortes MD Disposition: Admit to PCU/Telemetry Time spent evaluating patient, direct bedside care, chart review, placing orders, interpretation of diagnostic studies, discussion with consultants, patient, and family members, as well as other required patient management activities is 50 minutes This chart was completed in part utilizing Speech Voice Recognition Software. Grammatical errors, random word insertions, pronoun errors, and incomplete sentences are an occasional consequence of this system due to software limitations, ambient noise, and hardware issues. Any formal questions or concerns about the content, text, or information contained within the body of this dictation should be directly addressed to the provider for clarification. Admission and Anticipated Discharge Date Admission Date: December 11, 2023 Subjective Patient seen and examined at bedside. Comfortable; not in distress. Denies fever, chills, chest pain, shortness of breath, abdominal pain or urinary symptoms. No significant overnight events Review of Systems Review of Systems: All systems reviewed & are unremarkable except as noted in Subjective Physical Exam Physical Exam: Constitutional: WD/WN, vitals as above, NAD, sitting up in bed, pleasant, conversing easily Respiratory: Decreased air entry bilaterally Cardiovascular: RRR, no murmur, no edema Vessels: no JVD or carotid bruit Chest: normal inspection of chest Abdomen: normal bowel sounds, soft, nontender, no hepatosplenomegaly Musculoskeletal: no cyanosis or clubbing, extremities motor strength 5/5 Skin: no rashes, warm and dry normal turgor Neurologic: PERRL, EOMI, accommodation nl, no face palsy, no dysarthria CN's II- XI intact bilaterally and moves all extremities Psychiatric: A+Ox3, euthymic affect Results & Data Results & Data Vital Signs (Past 12 Hours) Vital Signs Temp Pulse Pulse Resp BP BP Pulse Ox 12/12/23 14:24 63 12/12/23 11:55 36.6 C 74 18 125/70 121/71 99 12/12/23 07:43 12/12/23 07:37 36.5 C 71 18 135/70 100 12/12/23 07:18 64 12/12/23 06:52 63 18 100 12/12/23 04:05 36.4 C L 66 16 145/81 H 100 O2 Del Method O2 Flow Rate 12/12/23 14:24 12/12/23 11:55 Nasal Cannula 4 12/12/23 07:43 Nasal Cannula 3 12/12/23 07:37 Nasal Cannula 4 12/12/23 07:18 12/12/23 06:52 Nasal Cannula 4 12/12/23 04:05 Nasal Cannula 4
--- NOTE | 2023-12-13 07:37 | Electrocardiogram Report ---
Test Reason : Blood Pressure : */* mmHG Vent. Rate : 90 BPM Atrial Rate : 234 BPM P-R Int : * ms QRS Dur : 82 ms QT Int : 450 ms P-R-T Axes : * 62 -7 degrees QTcB Int : 550 ms Atrial fibrillation vs flutter Nonspecific ST abnormality Prolonged QT Abnormal ECG When compared with ECG of 12-Dec-2023 05:38, Atrial fibrillation has replaced Sinus rhythm ST now depressed in Inferior leads Nonspecific T wave abnormality now evident in Inferior leads Confirmed by Meliton Falcon ([id number]) on 12/13/2023 7:37:14 AM Referred By: REFERRED SELF Confirmed By: Meliton Falcon
[2023-12-13 07:42] LABS: Basophils # (auto) 0.01 K/uL (0.00-0.20); Basophils % (auto) 0.1 %; Hematocrit (blood only) 33.3 % (37.0-47.0); Hemoglobin 10.7 g/dl (12.0-16.0); Immature Granulocytes # (auto) 0.06 K/uL (0.01-0.20); Immature Granulocytes % (auto) 0.5 %; Lymphocytes # (auto) 1.57 K/uL (1.20-3.40); Lymphocytes % (auto) 12.7 %; Mean Corpuscular Hemoglobin 30.1 pg (25.0-34.0); Mean Corpuscular Hgb Conc 32.1 g/dL (32.0-36.0); Mean Corpuscular Volume 93.8 fL (80.0-100.0); Mean Platelet Volume 9.2 fL (9.4-12.4); Monocytes # (auto) 0.82 K/uL (0.11-0.59); Monocytes % (auto) 6.6 %; Neutrophils # (auto) 9.94 K/uL (1.40-6.50); Neutrophils % (auto) 80.1 %; Platelet Count 321 K/uL (130-400); RDW Coefficient of Variation 13.6 % (11.5-14.5); RDW Standard Deviation 46.5 fL (36.4-46.3); Red Blood Count 3.55 M/uL (4.20-5.40)
--- NOTE | 2023-12-13 08:25 | Pulmonology Progress Note ---
Date of Service December 13, 2023 Assessment & Plan (1) Acute on chronic respiratory failure with hypoxia and hypercapnia: (2) COPD with exacerbation: (3) Tobacco use disorder: Plan CT chest 12/12/2023 personally reviewed: Interlobular thickening appreciated especially in the upper lobes Centrilobular emphysema appreciated bilaterally Linear atelectasis of the right middle lobe Minimal bilateral pleural effusion, left greater than right dependently and atelectasis bilateral lower lobes No significant mediastinal lymphadenopathy 2D echo 12/07/2023: EF 55-60%, mild concentric LVH, PASP 43 mmHg -- Acute on chronic hypercapnic hypoxic respiratory failure Likely secondary to exacerbation of underlying COPD On 2 L oxygen on exertion and nightly at home Respiratory bio fire negative for everything Procalcitonin negative BNP 826 Try to keep O2 saturation around 88-92% -- COPD On Advair 115 at home --Pulmonary hypertension Likely type III -- Current smoker Reports of quitting explained to the patient Plan: Continue with formoterol and budesonide nebulized, c/w incruse Continue with diuretics Recommend to taper prednisone off in the next 5 days Recommend addition of either Spiriva or Incruse to patient's regimen of Advair at home She is going to benefit from pulmonary rehab Recommend to keep oxygen saturation 90-92%. Do not over oxygenate the patient given the presentation with hypercapnia Was discussed with RN at bedside as well as primary team No further recommendation from pulmonary perspective, will sign off Please call directly with any questions Please note the above document was generated using voice recognition software. It may contain grammatical, syntax or spelling errors.Any formal questions or concerns about the content, text or information contained within the body of this dictation should be directly addressed to the provider for clarification. Admission and Anticipated Discharge Date Admission Date: December 11, 2023 Subjective Patient seen and examined at bedside. No acute distress, no adverse events overnight She was saturating 98% on 2 L nasal cannula at rest. She stated she is feeling much better compared to yesterday Denied any headache, no nausea, no vomiting Fair appetite No cough Review of Systems 2 Review of Systems: All systems reviewed & are unremarkable except as noted in Subjective Physical Exam 2 Physical Exam: Constitutional: No acute distress HEENT: EOMI, PERRLA Respiratory system: Decreased air entry bilaterally, no wheeze, no rhonchi, mild crackles bilateral lower lobes CVS: S1-S2 positive, no murmurs or gallops Abdomen: Soft, nontender, nondistended, positive bowel sounds x4 Extremities: +2 pulses bilaterally radialis/ dorsalis pedis, no cyanosis, no edema Neuro: Awake alert oriented x3 Psych: Normal mood and affect G/U: Positive Helms Skin: no rashes, warm and dry Lymphatic: no cervical or axillary lymphadenopathy Results & Data Results & Data Vital Signs (Past 12 Hours) Vital Signs Temp Pulse Pulse Resp BP Pulse Ox O2 Del Method 12/13/23 07:34 36.6 C 96 H 20 138/71 100 Nasal Cannula 12/13/23 07:04 78 18 100 Nasal Cannula 12/13/23 03:53 36.6 C 92 H 18 120/77 100 Nasal Cannula 12/13/23 00:11 36.6 C 97 H 18 117/77 96 Nasal Cannula 12/12/23 23:24 96 H 12/12/23 21:42 Nasal Cannula O2 Flow Rate 12/13/23 07:34 4 12/13/23 07:04 2 12/13/23 03:53 4 12/13/23 00:11 4 12/12/23 23:24 12/12/23 21:42 2 Laboratory Results 12/13/23 06:39 PG Care Time/CCT Total # of Minutes Spent Total Time Spent with Patient: Total time spent is greater than 50% in coordination of care (as documented) at patient's floor/unit and/or counseling patient: Coding Level of Care Code 26614 SUB INP/OBS CARE 2/35MIN Diagnoses Acute on chronic respiratory failure with hypoxia and hypercapnia J96.21; J96.22 COPD with exacerbation J44.1 Tobacco use disorder F17.200
[2023-12-13 09:04] LABS: BUN Creatinine Ratio 17.1 (10-20); Creatinine Clr Calc Pharmacy 60.9 ml/min; Est GFR (African American) 98.9 ml/min; Est GFR (Non-African American) 85.4 ml/min; Potassium 3.1 mmol/L (3.5-5.1)
--- NOTE | 2023-12-13 09:58 | Hospitalist Progress Note ---
Date of Service December 13, 2023 Assessment & Plan (1) Acute on chronic respiratory failure with hypoxia and hypercapnia: (2) Elevated troponin level: Plan Kae Johnston is a 73y/o F with PMHx of [place] [February 2023], CAD s/p stent placement, HTN, dyslipidemia, chronic nonspecific lung disease, COPD group B, HLD, acquired hypothyroidism, hematuria of undiagnosed cause, osteoporosis, common migraine, generalized anxiety disorder, tobacco use disorder, history of C. diff diarrhea, GERD presented to the ED via EMS for evaluation of SOB/dyspnea. Acute on Chronic Respiratory Failure w/ Hypoxia & Hypercapnia Patient presented with acute onset of shortness of breath after vaping Tachycardic, tachypneic on arrival to ED. Presenting VBG - pH 7.13, pCO2 107, HCO3 35. Notable respiratory acidosis. Given IV mag x 2 bags in ED. Repeat ABG - pH 7.34, pCO2 62. CXR negative for any acute findings. Biofire negative Pulmonary toilet w/ scheduled nebs, incentive spirometry, flutter valve & Mucinex. IV Solu-Medrol 40mg daily. Plan to switch to oral steroids at discharge. Continue formoterol and budesonide nebs Demand ischemia Trop 30.3 on presentation, elevated to 128 and downtrended Patient w/o chest pain. Monitor on telemetry Complicated UTI - From Previous Admission: CTAP last admission concerning for right pyelitis and cystitis. Urine culture grew E. coli more than 100 K, pansensitive [Gamma strep not Enterococcus]. Was treated with IV ABX. Placed on oral Augmentin 875-125mg BID x 4 days at time of d/c - will continue until 12/13. HTN: Continue losartan, spironolactone & Coreg. Continue Lasix Dyslipidemia, CAD s/p Stenting: Continue statin, Eliquis. Other Chronic Medical Conditions: Hypothyroidism, osteoporosis, urinary incontinence, GERD --> Can continue home medications for these specific conditions. 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 Code Status: FULL CODE PCP: Ronald Cortes MD Disposition: Admitted for severe COPD exacerbation. PT OT evaluation ordered Time spent evaluating patient, direct bedside care, chart review, placing orders, interpretation of diagnostic studies, discussion with consultants, patient, and family members, as well as other required patient management activities is 50 minutes This chart was completed in part utilizing Speech Voice Recognition Software. Grammatical errors, random word insertions, pronoun errors, and incomplete sentences are an occasional consequence of this system due to software limitations, ambient noise, and hardware issues. Any formal questions or concerns about the content, text, or information contained within the body of this dictation should be directly addressed to the provider for clarification. Admission and Anticipated Discharge Date Admission Date: December 11, 2023 Subjective Patient reports that her breathing is getting better She is saturating at 100% in 2 L of oxygen No significant events overnight Review of Systems Review of Systems: All systems reviewed & are unremarkable except as noted in Subjective Physical Exam Physical Exam: Constitutional: WD/WN, vitals as above, NAD, sitting up in bed, pleasant, conversing easily Respiratory: Decreased air entry bilaterally Cardiovascular: RRR, no murmur, no edema Vessels: no JVD or carotid bruit Chest: normal inspection of chest Abdomen: normal bowel sounds, soft, nontender, no hepatosplenomegaly Musculoskeletal: no cyanosis or clubbing, extremities motor strength 5/5 Skin: no rashes, warm and dry normal turgor Neurologic: PERRL, EOMI, accommodation nl, no face palsy, no dysarthria CN's II- XI intact bilaterally and moves all extremities Psychiatric: A+Ox3, euthymic affect Results & Data Results & Data Vital Signs (Past 12 Hours) Vital Signs Temp Pulse Pulse Resp BP Pulse Ox O2 Del Method 12/13/23 08:00 Nasal Cannula 12/13/23 07:34 36.6 C 96 H 20 138/71 100 Nasal Cannula 12/13/23 07:04 78 18 100 Nasal Cannula 12/13/23 03:53 36.6 C 92 H 18 120/77 100 Nasal Cannula 12/13/23 00:11 36.6 C 97 H 18 117/77 96 Nasal Cannula 12/12/23 23:24 96 H O2 Flow Rate 12/13/23 08:00 2 12/13/23 07:34 2 12/13/23 07:04 2 12/13/23 03:53 4 12/13/23 00:11 4 12/12/23 23:24
[2023-12-13] MEDS: POTASSIUM CHLORIDE CRTAB 20 MEQ TABCR PO SCH (15:17)
[2023-12-14] MEDS: ALENDRONATE SODIUM 70 MG TAB PO SCH (06:25)
[2023-12-14 07:19] VITALS: RESP 18; TEMP 97.5
--- NOTE | 2023-12-14 09:27 | Discharge Summary ---
Date of Service December 14, 2023 Admission HPI Per Admitting Provider Kae Johnston is a 73y/o F with PMHx of [place] [February 2023], CAD s/p stent placement, HTN, dyslipidemia, chronic nonspecific lung disease, COPD group B, HLD, acquired hypothyroidism, hematuria of undiagnosed cause, osteoporosis, common migraine, generalized anxiety disorder, tobacco use disorder, history of C. diff diarrhea, GERD and other problems listed below who presented to the ED via EMS for evaluation of SOB/dyspnea. History obtained from patient and associated chart review. Patient was just discharged home yesterday (12/09). Was admitted for chest pain [ACS ruled-out] and complicated UTI. Troponin x 3 negative, EKG with NSR and nonspecific ST abnormalities. Echocardiogram revealed mild concentric LVH, normal left ventricular wall motion, EF 55-60% and mildly elevated pulmonary artery systolic pressure. She was seen and evaluated by cardiology. During the hospitalization, losartan (50mg daily) and spironolactone (25mg daily) were added for high blood pressure. No further cardiac testing was required. Chest pain completely resolved. Her amiodarone was stopped. Patient had reported some subjective fevers, pain and burning while passing urine during that admission. CTAP at that time was concerning for right pyelitis and cystitis. Urine culture grew E. coli more than 100 K, pansensitive [Gamma strep not Enterococcus]. Patient was treated with IV ABX. At discharge, she was placed on oral Augmentin 875-125mg BID x 4 days. She was also placed on po Protonix 40mg daily secondary to dyspepsia concerns. She was seen and evaluated by GI. Patient wears 2L via NC at baseline. Was found by EMS this morning in tripod positioning. Notable conversational dyspnea as well. SpO2 was in the 80s on baseline 2L via NC per EMS. O2 was increased to 4L. EMS administered Duoneb x 1, albuterol neb x 1, 125mg IV Solu-Medrol and 0.3mg IV epinephrine CHEMISTS. Upon arrival to ED, patient was visibly cyanotic. Was also tachycardic and hypertensive. Unable to speak between breaths. Daughter, Cindy, reports that the patient was doing well up until this morning. Mentions she was out shopping yesterday and went out to eat at [employer]. Daughter left the house this morning and she was doing fine. However, when she returned home from the store, the patient was found to be very short of breath and kind of "slumped over." Daughter subsequently called EMS. Admission Exam Per Admitting Provider General Appearance: Thin, frail, chronically ill appearing, mild respiratory distress Head: normocephalic, Atraumatic Eyes: normal inspection, EOMI Neck: supple, Trachea midline Respiratory/Chest: Decreased breath sounds, scattered rhonchi, No accessory muscle use Cardiovascular: S1, S2, No murmur Abdomen/GI:Soft, Non tender, Bowel sounds present Extremities/Musculoskeletal:normal inspection, no edema Neurologic/Psych:AAOX3, grossly no focal neurological deficits Skin: normal color, warm Principal Diagnosis COPD exacerbation Discharge Exam Constitutional: WD/WN, vitals as above, NAD, sitting up in bed, pleasant, conversing easily Respiratory:no wheeze. air entry improved Cardiovascular: RRR, no murmur, no edema Vessels: no JVD or carotid bruit Chest: normal inspection of chest Abdomen: normal bowel sounds, soft, nontender, no hepatosplenomegaly Musculoskeletal: no cyanosis or clubbing, extremities motor strength 5/5 Skin: no rashes, warm and dry normal turgor Neurologic: PERRL, EOMI, accommodation nl, no face palsy, no dysarthria CN's II- XI intact bilaterally and moves all extremities Psychiatric: A+Ox3, euthymic affect Discharge Data Allergies Allergy/AdvReac Type Severity Reaction Status Date / Time bee venom protein (honey bee) Allergy Severe SWELLING Verified 12/06/23 12:51 SEVERE doxycycline Allergy Unknown Unknown - Unverified 12/06/23 12:51 On file w/ [facility] No Known Drug Allergies Allergy Unknown . Verified 06/02/17 11:01 Consultations 12/11/23 11:51 ED Decision to Admit Stat 12/11/23 12:16 Consult Pulmonology Routine Ordered Studies 12/12/23 07:20 CT chest diagnostic wo con Routine Hospital Course (1) Acute on chronic respiratory failure with hypoxia and hypercapnia: (2) Elevated troponin level: Jayro Johnston is a 73y/o F with PMHx of [place] [February 2023], CAD s/p stent placement, HTN, dyslipidemia, chronic nonspecific lung disease, COPD group B, HLD, acquired hypothyroidism, hematuria of undiagnosed cause, osteoporosis, common migraine, generalized anxiety disorder, tobacco use disorder, history of C. diff diarrhea, GERD presented to the ED via EMS for evaluation of SOB/dyspnea. Acute on Chronic Respiratory Failure w/ Hypoxia & Hypercapnia Patient presented with acute onset of shortness of breath after vaping Tachycardic, tachypneic on arrival to ED. Presenting VBG - pH 7.13, pCO2 107, HCO3 35. Notable respiratory acidosis. Given IV mag x 2 bags in ED. Repeat ABG - pH 7.34, pCO2 62. CXR negative for any acute findings. Biofire negative In the hospitalization, patient was treated withPulmonary toilet w/ scheduled nebs, incentive spirometry, flutter valve, iv steroids & Mucinex. Pulmonary was consulted for comanagement as well. Patient reported improvement in the symptoms during the treatment course. At discharge, she was started on Incruse inhaler; was also prescribed steroid course. Two-step oxygen evaluation was done; patient needed 2 L of oxygen on exertion. This chart was completed in part utilizing Speech Voice Recognition Software. Grammatical errors, random word insertions, pronoun errors, and incomplete sentences are an occasional consequence of this system due to software limitations, ambient noise, and hardware issues. Any formal questions or concerns about the content, text, or information contained within the body of this dictation should be directly addressed to the provider for clarification. Total Time Total Time Spent Total Time Spent (In Minutes): 35 Total Time Includes: Examination of the Patient, Discharge Planning, Medication Reconciliation, Communication With Other Providers and Other Discharge Plan Discharge Items Patient Disposition: Home - Home Health Services Reason For Visit: ACUTE ON CHRONIC RESP FAILURE Discharge Diagnosis: COPD exacerbation Activity: Resume your previous activity Non-emergency contact: Primary Care Provider Call non-emergency contact if: you have any medication questions and your symptoms worsen Follow-up/Referrals: Ronald Cortes MD [Primary Care Provider] - Diet: Regular Addtl Attending Provider Instructions: You were admitted to the hospital due to shortness of breath. Your evaluated by pulmonology during the hospitalization; shortness of breath is likely induced by vaping. Please stop using vape in the future. You are prescribed following medication: 1) Incruse inhaler once a day. Use this inhaler along with Advair every day 2) Prednisone 40 mg once a day for 3 days. Please follow-up with your primary care doctor as scheduled Pending Studies at Discharge: No Stand-Alone Forms: My [facility], Smoking Cessation Medications and DC Order Prescriptions: New Incruse Ellipta 62.5 mcg/actuation Blister With Device 1 inh inhalation DAILY Qty: 30 0RF prednisone 20 mg tablet 40 mg PO DAILY 3 Days Qty: 6 0RF Continued multivitamin Tablet 1 tab PO DAILY Qty: 0 Rx Instructions: Unable to verify OTC meds at this date/time. acetaminophen [Tylenol] 325 mg Tablet 650 mg PO Q6 PRN (Reason: Pain) Qty: 0 Rx Instructions: Unable to verify OTC meds at this date/time. calcium carbonate-vitamin D3 [Calcium 600 + D(3)] 600 mg-10 mcg (400 unit) Tablet 1 tab PO DAILY Qty: 0 Rx Instructions: Unable to verify OTC meds at this date/time. omega 8-rak-ybm-fish oil [Fish Oil] 1,000 mg (120 mg-180 mg) Capsule 1 cap PO DAILY Qty: 0 Rx Instructions: Unable to verify OTC meds at this date/time. magnesium oxide 400 mg magnesium Tablet 400 mg PO BID Qty: 0 Rx Instructions: Unable to verify OTC meds at this date/time. furosemide 40 mg tablet 40 mg PO DAILY atorvastatin 40 mg tablet 40 mg PO QAM carvedilol 12.5 mg tablet 18.75 mg PO BID citalopram 40 mg tablet 40 mg PO QAM trazodone 50 mg tablet 50 - 100 mg PO HS alendronate 70 mg tablet 70 mg PO WK clopidogrel 75 mg tablet 75 mg PO QAM levothyroxine 25 mcg tablet 25 mcg PO DAILYBB oxybutynin chloride 5 mg tablet extended release 24hr 5 mg PO DAILY gabapentin 300 mg capsule 300 mg PO TID potassium chloride [Klor-Con M10] 10 mEq tablet,ER particles/crystals 10 meq PO BID fluticasone propion-salmeterol 115-21 mcg/actuation HFA aerosol inhaler 2 puff INHALATION BID Eliquis 5 mg tablet 5 mg PO BID nitroglycerin [Nitrostat] 0.4 mg Tablet, Sublingual 0.4 mg sublingual Q5M PRN (Reason: chest pain) Qty: 30 0RF pantoprazole [Protonix] 40 mg tablet,delayed release (DR/EC) 40 mg PO DAILY Qty: 30 0RF amoxicillin-pot clavulanate 875-125 mg tablet 1 tab PO Q12H 4 Days Qty: 8 0RF spironolactone 25 mg Tablet 25 mg PO DAILY Qty: 30 0RF losartan 50 mg tablet 50 mg PO DAILY Qty: 30 0RF Discharge Orders: Discharge Order (Routine); Ordered 12/14/23 Ordered By: Robert French Admission Data Admit Date/Time: 12/11/23 12:16 Attending Provider: Robert French Admit Provider: Cale Turcios Primary Care Provider: Ronald Cortes Other Providers: Jeffrey Morales; Cale Turcios Other Interventions: Discharge Summary Assessment (RN) Last Done: 12/14/23 09:45
[2023-12-14 09:50] VITALS: BP 160/96; PULSE 84; O2SAT 98
== END 2023-12-14 10:30 | disposition home health service (06) | DRG 189 ==
LOC: ED 10:21 → SUATTDRO 12:16 → EDINP 12:16 → 2S 14:23

== ENCOUNTER 2023-12-25 18:43 | Observation (INO) ==
[2023-12-25] MEDS: FAMOTIDINE 20MG IV PUSH 20 MG/5 ML SYR IV STA (19:25)
[2023-12-25] MEDS: SODIUM CHLORIDE 0.9% 500 ML IV ONE (19:26)
[2023-12-25] MEDS: ALBUT/IPRATROP 3MG/0.5MG NEB 3 ML VIAL NEB STA (19:27)
[2023-12-25] MEDS: methylPREDNISolone 125 MG/2 ML VIAL IV STA (19:30)
[2023-12-25 19:31] LABS: Base Excess VBG 9.2 mEq/L; HCO3 VBG 38 mmol/L; Oxygen Saturation VBG < 60.0 %; PCO2 VBG 68 mmHg (38-50); PO2 VBG 31 mmHg; pH VBG 7.35 (7.36-7.41)
[2023-12-25 19:37] LABS: Basophils # (auto) 0.05 K/uL (0.00-0.20); Basophils % (auto) 0.4 %; Eosinophils # (auto) 0.31 K/uL (0.00-0.50); Eosinophils % (auto) 2.5 %; Hematocrit (blood only) 41.2 % (37.0-47.0); Hemoglobin 13.2 g/dl (12.0-16.0); Immature Granulocytes # (auto) 0.09 K/uL (0.01-0.20); Immature Granulocytes % (auto) 0.7 %; Lymphocytes # (auto) 2.94 K/uL (1.20-3.40); Lymphocytes % (auto) 23.6 %; Mean Corpuscular Hemoglobin 30.2 pg (25.0-34.0); Mean Corpuscular Volume 94.3 fL (80.0-100.0); Mean Platelet Volume 8.4 fL (9.4-12.4); Monocytes # (auto) 0.92 K/uL (0.11-0.59); Monocytes % (auto) 7.4 %; Neutrophils # (auto) 8.17 K/uL (1.40-6.50); Neutrophils % (auto) 65.4 %; Platelet Count 415 K/uL (130-400); RDW Coefficient of Variation 14.1 % (11.5-14.5); RDW Standard Deviation 48.5 fL (36.4-46.3); Red Blood Count 4.37 M/uL (4.20-5.40); White Blood Count 12.48 K/ul (4.8-10.8)
[2023-12-25 19:47] LABS: iSTAT Creatinine 1.1 mg/dl (0.6-1.3); iSTAT Hemoglobin 14.3 g/dl (12.0-16.0); iSTAT Ionized Calcium 1.17 mmol/l (1.12-1.32); iSTAT Potassium 3.8 mmol/L (3.3-5.0)
[2023-12-25 19:53] LABS: Alanine Aminotransferase 14 U/L (7-52); Albumin Globulin Ratio 1.2 (0.9-2); Albumin Level 3.8 gm/dl (3.4-5.0); Alkaline Phosphatase 83 U/L (34-104); Anion Gap 5 (3-11); Aspartate Aminotransferase 17 U/L (13-39); BUN Creatinine Ratio 7.2 (10-20); Bilirubin Direct 0.1 mg/dl (0-0.2); Bilirubin,Total 0.5 mg/dl (0.2-1.0); Blood Urea Nitrogen 7 mg/dl (6-23); Calcium 9.2 mg/dl (8.6-10.3); Carbon Dioxide 36 mmol/L (21-32); Chloride 97 mmol/L (98-107); Est GFR (African American) 66.7 ml/min; Est GFR (Non-African American) 57.5 ml/min; Globulin 3.3 gm/dl (2.5-4.0); Glucose 125 mg/dl (70-99(Fasting)); Lipase 20 U/L (11-82); Magnesium 1.8 mg/dl (1.7-2.4); Potassium 3.8 mmol/L (3.5-5.1); Sodium 138 mmol/L (136-145); Total Protein 7.1 gm/dl (6.0-8.3)
--- NOTE | 2023-12-25 19:54 | Emergency Department Note ---
Impression & Plan Acute and chronic postprocedural respiratory failure, COPD (chronic obstructive pulmonary disease), Nausea & vomiting ED Provider Note NAME: JJ TORREZ AGE: 73 SEX: F : 1950 ARRIVES VIA: Ambulance INFORMANT: Patient ED PROVIDER(S): Elton Sheprad MD CHIEF COMPLAINT: Shortness of breath. PLAN: Disposition: Admit MEDICAL DECISION MAKING: The patient is a pleasant 73 woman with a past medical history of COPD on 2 L home oxygen, paroxysmal atrial fibrillation on Eliquis, hypertension, hyperlipidemia, CHF, who presents to the emergency department via EMS for acute worsening of shortness of breath since yesterday evening in setting of report of having upset stomach with poor oral intake and episode of vomiting after which her symptoms became more severe. She denies any fevers. She reports mild cough and congestion. Denies any discolored sputum production. She denies any urinary symptoms. On evaluation the patient is uncomfortable no acute distress, afebrile with blood pressure initially in triage of 70s/40s but improving without intervention upon arrival to the room. She appears euvolemic to dry. She has wheezes of bilateral mid to lower lung vazquez without overt rhonchi. EKG without overt acute ischemia. CXR negative for acute cardiopulmonary process per my personal preliminary review/interpretation. Biotics WBC 12.4 K with neutrophil predominance but no left shift, nonspecific. H/H within normal limits. Platelets 4 15K, nonspecific likely reactive. INR within normal limits. VBG with pCO2 of 68 in the setting of history of COPD with pH of 7.35. Chemistry without metabolic acidosis. Bicarbonate is 36 consistent with component of chronic hypercapnia. High-sensitivity troponin was 5.5, within normal limits. BNP 127, mildly above normal, nonspecific and has been higher in the past. Lipase is not elevated. Procalcitonin is undetectable. Respiratory BioFire was negative. Patient was treated with IV fluid hydration, Solu-Medrol, DuoNeb. CT of the chest and pelvis were also performed and were negative for pneumonia. Bronchitis is described. CT abdomen pelvis negative for acute intra-abdominal process. Given the patient's acute on chronic respiratory failure likely related to component of COPD flare patient agrees with plan for admission. Case was discussed with Dr. Shelton, [facility] hospitalist, who will evaluate the patient for admission. Further management per admitting team. Triage Nursing notes reviewed and agree them. Prior/external medical records reviewed Vital Signs: reviewed Differential diagnosis: Reactive airway disease, pneumonia, pneumothorax, COPD, CHF, infections, cardiac ischemia, pulmonary embolism, musculoskeletal, gastrointestinal, as well as other pathologies. ER treatment provided: See below. Diagnostics interpreted by me: ECG: Normal sinus rhythm, 68 bpm, no ectopy, nonspecific ST and T wave abnormality, no overt ST elevation or depression, QTc 523, QRS 68. Baseline artifact. Cardiac Monitoring: An order for continuous cardiac monitoring was placed and demonstrated Normal sinus rhythm, 68 bpm, no ectopy Laboratory studies: See below Imaging studies: See below Consultation(s): Case was discussed with Dr. Shelton, [facility] hospitalist, who will evaluate the patient for admission. HPI: The patient is a pleasant 73 woman with a past medical history of COPD on 2 L home oxygen, paroxysmal atrial fibrillation on Eliquis, hypertension, hyperlipidemia, CHF, who presents to the emergency department via EMS for acute worsening of shortness of breath since yesterday evening in setting of report of having upset stomach with poor oral intake and episode of vomiting after which her symptoms became more severe. She denies any fevers. She reports mild cough and congestion. Denies any discolored sputum production. She denies any urinary symptoms. ROS: See above HPI for pertinent positives & negatives. A total of 10 systems reviewed and were otherwise negative. VITALS:See Below PHYSICAL EXAMINATION: GENERAL: Awake, alert, acute on chronically ill-appearing, in no distress HENT: Normocephalic, atraumatic. Oropharynx with dry mucous membranes and otherwise unremarkable. EYES: Normal conjunctiva. Sclera non-icteric. NECK: Supple. No nuchal rigidity. FROM. No JVD. RESPIRATORY: Wheezes of bilateral mid to lower lung vazquez without overt rhonchi. CARDIAC: Regular rate, normal rhythm. Extremities warm and well perfused. Pulses equal. ABDOMEN: Soft, non-distended. Mild epigastric discomfort without discrete tenderness to palpation. No rebound or guarding. No masses. MUSCULOSKELETAL: Chest examination reveals no tenderness. The back is symmetrical on inspection without obvious abnormality. There is no CVA tenderness to palpation. No joint edema. LOWER EXTREMITIES: Calves are equal size bilaterally and non-tender. No edema. No discoloration. NEURO: Normal sensorium. No sensory or motor deficits noted. SKIN: No rash or jaundice noted. Elton Shepard MD Past Med/Surg History Problem List (Updated 12/26/23 @ 08:08 by Elton Shepard MD) COPD (chronic obstructive pulmonary disease) (Acute) Acute and chronic postprocedural respiratory failure (Acute) COPD with exacerbation Elevated troponin level (Acute) Acute on chronic respiratory failure with hypoxia and hypercapnia (Acute) Absent pedal pulses COPD (chronic obstructive pulmonary disease) (Acute) Dyslipidemia, goal LDL below 70 PAF (paroxysmal atrial fibrillation) Uncontrolled hypertension ASCVD (arteriosclerotic cardiovascular disease) Chest pain at rest Thickened endometrium Elevated brain natriuretic peptide (BNP) level (Acute) Nausea & vomiting (Acute) Chest pain (Acute) Asthma exacerbation (Acute) Gastroenteritis (Acute) Fall in home (Acute) CHI (closed head injury) (Acute) Scalp laceration (Acute) Facial laceration (Acute) Heart disease HTN (hypertension) Kidney disease Bronchitis Fall in home (Acute) Hyponatremia (Acute) Hypokalemia (Acute) Abdominal pain Diarrhea Vomiting Medical History Macular degeneration Asthma Tobacco use disorder Coronary atherosclerosis of andreafski coronary vessel Benign hypertension Atrial fibrillation Diabetes Surgical History H/O heart surgery History of cholecystectomy Hx of tubal ligation Social History Smoking Status: Current every day smoker Tobacco Type: Cigarettes Cigarettes Per Day: 0-5 cigs; Second Hand Exposure: No; Do You Dip or Chew Tobacco: No; Hx Alcohol Use: No Hx Substance Use: No Preferred Language: Grenadian Communication Ability: Effective Cake Batter Mixer Required: No Beliefs That Will Affect Care: None Current Living Situation: Family Current Living Situation Comment: with daughter Feels Safe at Home: Yes Safety Concerns: Feels Safe At This Time Assistive Devices: Cane, Denture - Upper, Denture - Lower, Oxygen - Continuous, Walker and Wheelchair Allergies Allergies Allergy/AdvReac Type Severity Reaction Status Date / Time bee venom protein (honey bee) Allergy Severe SWELLING Verified 12/06/23 12:51 SEVERE doxycycline Allergy Unknown Unknown - Unverified 12/06/23 12:51 On file w/ [facility] No Known Drug Allergies Allergy Unknown . Verified 06/02/17 11:01 Home Meds Home Medications Medication Instructions Recorded Confirmed multivitamin 1 tab PO DAILY #0 tabs 02/07/14 12/25/23 acetaminophen 325 mg tablet 650 mg PO Q6 PRN Pain #0 tabs 04/22/17 12/25/23 (Tylenol) calcium carbonate 600 mg-vitamin 1 tab PO DAILY ##0 04/22/17 12/25/23 D3 10 mcg (400 unit) tablet (Calcium 600 + D(3)) omega 5-aez-rdt-fish oil 1,000 mg 1 cap PO DAILY #0 caps 04/22/17 12/25/23 (120 mg-180 mg) capsule (Fish Oil) magnesium oxide 400 mg PO BID #0 tabs 06/01/17 12/25/23 alendronate 70 mg tablet 70 mg PO WK 12/06/23 12/25/23 apixaban 5 mg tablet (Eliquis) 5 mg PO BID 12/06/23 12/25/23 atorvastatin 40 mg tablet 40 mg PO QAM 12/06/23 12/25/23 carvedilol 12.5 mg tablet 18.75 mg PO BID 12/06/23 12/25/23 citalopram 40 mg tablet 40 mg PO QAM 12/06/23 12/25/23 clopidogrel 75 mg tablet 75 mg PO QAM 12/06/23 12/25/23 fluticasone propionate 115 2 puff inhalation BID 12/06/23 12/25/23 mcg-salmeterol 21 mcg/actuation HFA inhaler furosemide 40 mg tablet 40 mg PO DAILY 12/06/23 12/25/23 gabapentin 300 mg capsule 300 mg PO TID 12/06/23 12/25/23 levothyroxine 25 mcg tablet 25 mcg PO DAILYBB 12/06/23 12/25/23 oxybutynin chloride 5 mg 5 mg PO DAILY 12/06/23 12/25/23 tablet,extended release 24 hr potassium chloride 10 mEq 10 meq PO BID 12/06/23 12/25/23 tablet,extended release(part/cryst) (Klor-Con M) trazodone 50 mg tablet 50 - 100 mg PO HS 12/06/23 12/25/23 Previous Rx's Medication Instructions Recorded nitroglycerin 0.4 mg sublingual 0.4 mg sublingual Q5M PRN chest 12/09/23 tablet (Nitrostat) pain #30 tabs pantoprazole 40 mg tablet,delayed 40 mg PO DAILY #30 tabs 12/09/23 release (Protonix) losartan 50 mg tablet 50 mg PO DAILY #30 tabs 12/10/23 spironolactone 25 mg tablet 25 mg PO DAILY #30 tabs 12/10/23 umeclidinium 62.5 mcg/actuation 1 inh inhalation DAILY #30 ea 12/14/23 blister powder for inhalation (Incruse Ellipta) Results & Data (ED) Vital Signs Vital Signs - 24 hr 12/25/23 19:00 12/25/23 19:23 12/25/23 19:23 Temperature 36.5 C Temperature Source Oral Pulse Rate 74 Pulse Rate [Apical] Pulse Rhythm Regular Pulse Rhythm [Apical] Pulse Strength [Apical] Respiratory Rate 18 Respiratory Effort / Characteristics Respiratory Depth Respiratory Pattern Blood Pressure [Right Arm] Blood Pressure Mean [Right Arm] Blood Pressure Position [Right Arm] Pulse Oximetry 100 100 Oxygen Delivery Method Nasal Cannula Nasal Cannula Oxygen Flow Rate 4 4 Sepsis Recent Fever Within 48 Hours No Sepsis New/Unexplained Change in Mental Status No Sepsis Action Taken by Nursing No Action Required 12/25/23 20:00 Temperature 36.9 C Temperature Source Oral Pulse Rate Pulse Rate [Apical] 71 Pulse Rhythm Pulse Rhythm [Apical] Regular Pulse Strength [Apical] Normal Respiratory Rate 18 Respiratory Effort / Characteristics Non-Labored Spontaneous Respiratory Depth Normal Respiratory Pattern Regular Blood Pressure [Right Arm] 136/83 Blood Pressure Mean [Right Arm] 100 Blood Pressure Position [Right Arm] Lying Pulse Oximetry 100 Oxygen Delivery Method Nasal Cannula Oxygen Flow Rate 3 Sepsis Recent Fever Within 48 Hours Sepsis New/Unexplained Change in Mental Status Sepsis Action Taken by Nursing Laboratory Data Attestation: I reviewed the patient's lab results. 12/26/23 05:46 12/26/23 05:46 Lab Results 12/25/23 12/25/23 Range/Units 19:19 19:25 WBC 12.48 H (4.8-10.8) K/ul RBC 4.37 (4.20-5.40) M/uL Hgb 13.2 (12.0-16.0) g/dl POC Hgb 14.3 (12.0-16.0) g/dl Hct 41.2 (37.0-47.0) % POC Hct 42 (37-47) % MCV 94.3 (80.0-100.0) fL MCH 30.2 (25.0-34.0) pg MCHC 32.0 (32.0-36.0) g/dL RDW Std Deviation 48.5 H (36.4-46.3) fL RDW Coeff of Chet 14.1 (11.5-14.5) % Plt Count 415 H (130-400) K/uL MPV 8.4 L (9.4-12.4) fL Immature Gran % (Auto) 0.7 % Neut % (Auto) 65.4 % Lymph % (Auto) 23.6 % Morrill % (Auto) 7.4 % Eos % (Auto) 2.5 % Baso % (Auto) 0.4 % Neut # (Auto) 8.17 H (1.40-6.50) K/uL Lymph # (Auto) 2.94 (1.20-3.40) K/uL Morrill # (Auto) 0.92 H (0.11-0.59) K/uL Eos # (Auto) 0.31 (0.00-0.50) K/uL Baso # (Auto) 0.05 (0.00-0.20) K/uL Immature Gran # (Auto) 0.09 (0.01-0.20) K/uL PT 11.5 (9.0-12.0) Seconds INR 1.1 (0.9-1.1) APTT 28 (21-31) Seconds PTT Ratio 1.0 VBG pH 7.35 L (7.36-7.41) VBG pCO2 68 H (38-50) mmHg VBG pO2 31 mmHg VBG HCO3 38 mmol/L VBG O2 Saturation < 60.0 % VBG Base Excess 9.2 mEq/L POC Sodium 138 (135-144) mmol/L Sodium 138 (136-145) mmol/L POC Potassium 3.8 (3.3-5.0) mmol/L Potassium 3.8 (3.5-5.1) mmol/L POC Chloride 95 L (101-112) mmol/L Chloride 97 L (98-107) mmol/L Carbon Dioxide 36 H (21-32) mmol/L POC Total CO2 34 H (24-31) mmol/L Anion Gap 5 (3-11) POC Anion Gap 14.0 L (16-25) mmol/L POC BUN 6 L (7-18) mg/dl BUN 7 (6-23) mg/dl Creatinine 0.97 (0.6-1.2) mg/dl POC Creatinine 1.1 (0.6-1.3) mg/dl Est Cr Clr Drug Dosing Not Reportable Est GFR ( Amer) 66.7 ml/min Est GFR (Non-Af Amer) 57.5 ml/min BUN/Creatinine Ratio 7.2 L (10-20) Glucose 125 H (70-99(Fasting)) mg/dl POC Glucose (other) 122 H (70-99) mg/dl Calcium 9.2 (8.6-10.3) mg/dl POC Ioniz Calcium Tabitha 1.17 (1.12-1.32) mmol/l Magnesium 1.8 (1.7-2.4) mg/dl Total Bilirubin 0.5 (0.2-1.0) mg/dl Direct Bilirubin 0.1 (0-0.2) mg/dl AST 17 (13-39) U/L ALT 14 (7-52) U/L Alkaline Phosphatase 83 (34-104) U/L Troponin I High Sens 5.5 (0-14) pg/ml B-Natriuretic Peptide 127 H (0-100) pg/ml Total Protein 7.1 (6.0-8.3) gm/dl Albumin 3.8 (3.4-5.0) gm/dl Globulin 3.3 (2.5-4.0) gm/dl Albumin/Globulin Ratio 1.2 (0.9-2) Lipase 20 (11-82) U/L Procalcitonin < 0.02 (0-0.5) ng/ml Adenovirus (PCR) Not Detected (NotDetected) B. pertussis DNA (PCR) Not Detected (NotDetected) B.parapertussis DNA PCR Not Detected (NotDetected) C. pneumoniae DNA (PCR) Not Detected (NotDetected) Coronavirus OC43 (PCR) Not Detected (NotDetected) Coronavirus HKU1 (PCR) Not Detected (NotDetected) Coronavirus 229E (PCR) Not Detected (NotDetected) SARS-CoV-2 (PCR) Not Detected (NotDetected) Coronavirus NL63 (PCR) Not Detected (NotDetected) Human Metapneumovir PCR Not Detected (NotDetected) Influenza Type A (PCR) Not Detected (NotDetected) Influenza Type B (PCR) Not Detected (NotDetected) M. pneumoniae (PCR) Not Detected (NotDetected) Parainfluenza 1 (PCR) Not Detected (NotDetected) Parainfluenza 2 (PCR) Not Detected (NotDetected) Parainfluenza 3 (PCR) Not Detected (NotDetected) Parainfluenza 4 (PCR) Not Detected (NotDetected) RSV (PCR) Not Detected (NotDetected) Entero/Rhino (PCR) Not Detected (NotDetected) Administered Medications Acetaminophen (Acetaminophen 325 Mg Tab) 650 mg PO Q4H PRN PRN Reason: Pain or Fever Stop: 01/24/24 23:09 Last Admin: 12/26/23 05:35 Dose: 650 mg Documented By: Admin: 12/26/23 00:01 Dose: 650 mg Documented By: DANAY Albuterol (Albut/Ipratrop 3mg/0.5mg Neb 3 Ml Vial) 3 ml NEB QIDR [facility]; Protocol Stop: 01/25/24 06:59 Last Admin: 12/26/23 07:23 Dose: 3 ml Documented By: ALFRED Methylprednisolone 40 mg/ (Syringe) 0.64 mls @ 1.5 mls/min IV Q8H [facility] Stop: 01/25/24 05:59 Last Admin: 12/26/23 05:33 Dose: 1.5 mls/min Documented By: DANAY Levothyroxine Sodium (Levothyroxine Sodium 25 Mcg Tablet) 25 mcg PO DAILYBB [facility] Stop: 01/25/24 06:29 Last Admin: 12/26/23 05:32 Dose: 25 mcg Documented By: DANAY Discontinued Medications Albuterol (Albut/Ipratrop 3mg/0.5mg Neb 3 Ml Vial) 3 ml NEB NOW STA; Protocol Stop: 12/25/23 19:23 Last Admin: 12/25/23 19:27 Dose: 3 ml Documented By: SAV Sodium Chloride (Nss) 500 mls @ 999 mls/hr IV .Q31M ONE Stop: 12/25/23 19:50 Last Infusion: 12/25/23 20:17 Dose: Infused Documented By: Admin: 12/25/23 19:26 Dose: 999 mls/hr Documented By: SAV Famotidine (Pepcid 20mg Iv Push) 20 mg in 5 mls @ 2.5 mls/min IV NOW STA Stop: 12/25/23 19:21 Last Admin: 12/25/23 19:25 Dose: 2.5 mls/min Documented By: SAV Ioversol (Optiray 320 125ml) 92 ml IV ONCE ONE Stop: 12/25/23 19:56 Last Admin: 12/25/23 19:55 Dose: 92 ml Documented By: DEBRA Methylprednisolone (Methylprednisolone 125 Mg/2 Ml Vial) 125 mg IV NOW STA Stop: 12/25/23 19:23 Last Admin: 12/25/23 19:30 Dose: 125 mg Documented By: SAV Trazodone HCl (Trazodone Hcl 50 Mg Tab) 50 mg PO NOW ONE Stop: 12/25/23 23:44 Last Admin: 12/26/23 00:01 Dose: 50 mg Documented By: HENRIK Imaging Data Radiologist's Impression: Abdomen/Pelvis CT 12/25/23 19:23 Exam(s): CT ABDOMEN + PELVIS With Contrast IV Amt: OPTIRAY 320 92ML EXAM: CT Abdomen and Pelvis With Intravenous Contrast CLINICAL HISTORY: epigastric pain,n/v. TECHNIQUE: Axial computed tomography images of the abdomen and pelvis with intravenous contrast. CTDI is 9.78 mGy and DLP is 359.75 mGy-cm. Automated exposure control was utilized for the study. A dose lowering technique was utilized adhering to the principles of ALARA. CONTRAST: Patient received OPTIRAY 320 92ML of IV contrast COMPARISON: CT abdomen and pelvis with contrast dated 12/06/2023 FINDINGS: Limitations: There is respiratory artifact, which degrades image quality throughout the examination. Lung bases: Unremarkable. No mass. No consolidation. ABDOMEN: Liver: Unremarkable. No mass. Gallbladder and bile ducts: The gallbladder is surgically absent. No ductal dilation. Pancreas: Unremarkable. No mass. No ductal dilation. Spleen: Unremarkable. No splenomegaly. Adrenals: Unremarkable. No mass. Kidneys and ureters: Kidneys demonstrate normal enhancement, accounting for mild artifact. Similar cortical cysts. No hydronephrosis or new perinephric abnormality. Stomach and bowel: Stomach is only mildly distended with fluid and gas. No gastric mucosal thickening. No evidence for bowel obstruction. No definite asymmetric bowel mucosal abnormality identified, accounting for limitations with respiratory artifact. Minimal stool burden. No appreciable diverticulitis. PELVIS: Appendix: Normal retrocecal appendix. Bladder: Unremarkable. No mass. Reproductive: The previously noted prominent hypodense areas centrally in the uterus is not as conspicuous. The uterus is normal in caliber. No adnexal mass. ABDOMEN and PELVIS: Intraperitoneal space: Unremarkable. No free air. No significant fluid collection. Bones/joints: Multilevel degenerative changes, not significantly altered. No acute fracture. No dislocation. Soft tissues: Unremarkable. Vasculature: Extensive atherosclerotic calcification of the distal thoracic and abdominal aorta. Similar short segment fusiform ectasia of the infrarenal aorta, measuring 3.1 x 2.8 cm, stable in size. No dissection. Heavy calcification of the infrarenal aorta is noted. Similar atherosclerotic calcification of the iliac arteries. Lymph nodes: Unremarkable. No enlarged lymph nodes. IMPRESSION: 1. No evidence for bowel obstruction. No definite asymmetric bowel mucosal abnormality identified, accounting for limitations with respiratory artifact. Minimal stool burden. No appreciable diverticulitis. No free intraperitoneal fluid or definite pneumoperitoneum. 2. No other significant alteration from the prior examination. Electronically signed by: Tremaine Miller MD 12/25/23 20:55 PM Chest CTA 12/25/23 19:50 Exam(s): CTA CHEST IV Amt: OPTIRAY 320 92ML EXAM: CT Angiography Chest With Intravenous Contrast CLINICAL HISTORY: sob. Evaluate for potential PE. TECHNIQUE: Axial computed tomographic angiography images of the chest with intravenous contrast. CTDI is 12.21 mGy and DLP is 403.45 mGy-cm. Automated exposure control was utilized for the study. A dose lowering technique was utilized adhering to the principles of ALARA. MIP reconstructed images were created and reviewed. COMPARISON: CT chest without contrast dated 12/12/2023 FINDINGS: Limitations: There is respiratory artifact, which degrades image quality on multiple image slices. Pulmonary arteries: No evidence for pulmonary embolism. Aorta: Atherosclerotic calcification of the thoracic aorta, similar. No aneurysm. Lungs: No focal airspace consolidation. Mild peribronchial cuffing noted bilaterally, crushable slightly more prominent in appearance from the previous examination. Similar platelike linear changes in the anterior right upper lobe. Pleural space: The previously noted small volume layering bilateral pleural effusions have resolved. No pneumothorax. Heart: The cardiac chambers are normal in size. Moderate coronary artery calcification. No pericardial effusion. Bones/joints: Similar dysmorphic appearance of the sternum consistent with previous healed fracture. No dislocation. Soft tissues: Unremarkable. Lymph nodes: Unremarkable. No enlarged lymph nodes. IMPRESSION: 1. No focal airspace consolidation. Mild peribronchial cuffing noted bilaterally, crushable slightly more prominent in appearance from the previous examination. Subtle inflammatory infectious bronchitis may be present. 2. The previously noted small volume layering bilateral pleural effusions have resolved. Electronically signed by: Tremaine Miller MD 12/25/23 21:02 PM Discharge Plan Visit Data Chief Complaint: Shortness of Breath/Dyspnea Stated Complaint: SOB ED Provider: Elton Shepard Discharge Problem: Acute and chronic postprocedural respiratory failure, COPD (chronic obstructive pulmonary disease), Nausea & vomiting Patient Disposition: Admitted As Inpatient Discharge Instructions Interventions: ED Discharge Assessment Last Done: 12/25/23 22:32 Discharge Problem: COPD (chronic obstructive pulmonary disease) Qualifiers: COPD type: COPD with acute exacerbation Qualified Code(s): J44.1 - Chronic obstructive pulmonary disease with (acute) exacerbation Nausea & vomiting Qualifiers: Vomiting type: unspecified Qualified Code(s): R11.2 - Nausea with vomiting, unspecified
[2023-12-25] MEDS: OPTIRAY 320 125ml IV ONE (19:55)
[2023-12-25 19:59] LABS: Troponin I High Sensitivity 5.5 pg/ml (0-14)
[2023-12-25 20:03] LABS: INR 1.1 (0.9-1.1); Partial Thromboplastin Time 28 Seconds (21-31); Prothrombin Time 11.5 Seconds (9.0-12.0)
[2023-12-25 20:39] LABS: Adenovirus PCR Not Detected (NotDetected); Bordetella parapertussis PCR Not Detected (NotDetected); Bordetella pertussis PCR Not Detected (NotDetected); Chlamydia pneumoniae PCR Not Detected (NotDetected); Coronavirus 229E PCR Not Detected (NotDetected); Coronavirus CoV-2 (COVID19)PCR Not Detected (NotDetected); Coronavirus HKU1 PCR Not Detected (NotDetected); Coronavirus NL63 PCR Not Detected (NotDetected); Coronavirus OC43PCR Not Detected (NotDetected); Human Metapneumovirus PCR Not Detected (NotDetected); Influenza A PCR Not Detected (NotDetected); Influenza B PCR Not Detected (NotDetected); Mycoplasma pneumoniae PCR Not Detected (NotDetected); Parainfluenza Virus 1 PCR Not Detected (NotDetected); Parainfluenza Virus 2 PCR Not Detected (NotDetected); Parainfluenza Virus 3 PCR Not Detected (NotDetected); Parainfluenza Virus 4 PCR Not Detected (NotDetected); Respiratory Syncytial VirusPCR Not Detected (NotDetected); Rhinovirus/Enterovirus PCR Not Detected (NotDetected)
--- NOTE | 2023-12-25 20:56 | CT Scan Report ---
Exam(s): CT ABDOMEN + PELVIS With Contrast IV Amt: OPTIRAY 320 92ML EXAM: CT Abdomen and Pelvis With Intravenous Contrast CLINICAL HISTORY: epigastric pain,n/v. TECHNIQUE: Axial computed tomography images of the abdomen and pelvis with intravenous contrast. CTDI is 9.78 mGy and DLP is 359.75 mGy-cm. Automated exposure control was utilized for the study. A dose lowering technique was utilized adhering to the principles of ALARA. CONTRAST: Patient received OPTIRAY 320 92ML of IV contrast COMPARISON: CT abdomen and pelvis with contrast dated 12/06/2023 FINDINGS: Limitations: There is respiratory artifact, which degrades image quality throughout the examination. Lung bases: Unremarkable. No mass. No consolidation. ABDOMEN: Liver: Unremarkable. No mass. Gallbladder and bile ducts: The gallbladder is surgically absent. No ductal dilation. Pancreas: Unremarkable. No mass. No ductal dilation. Spleen: Unremarkable. No splenomegaly. Adrenals: Unremarkable. No mass. Kidneys and ureters: Kidneys demonstrate normal enhancement, accounting for mild artifact. Similar cortical cysts. No hydronephrosis or new perinephric abnormality. Stomach and bowel: Stomach is only mildly distended with fluid and gas. No gastric mucosal thickening. No evidence for bowel obstruction. No definite asymmetric bowel mucosal abnormality identified, accounting for limitations with respiratory artifact. Minimal stool burden. No appreciable diverticulitis. PELVIS: Appendix: Normal retrocecal appendix. Bladder: Unremarkable. No mass. Reproductive: The previously noted prominent hypodense areas centrally in the uterus is not as conspicuous. The uterus is normal in caliber. No adnexal mass. ABDOMEN and PELVIS: Intraperitoneal space: Unremarkable. No free air. No significant fluid collection. Bones/joints: Multilevel degenerative changes, not significantly altered. No acute fracture. No dislocation. Soft tissues: Unremarkable. Vasculature: Extensive atherosclerotic calcification of the distal thoracic and abdominal aorta. Similar short segment fusiform ectasia of the infrarenal aorta, measuring 3.1 x 2.8 cm, stable in size. No dissection. Heavy calcification of the infrarenal aorta is noted. Similar atherosclerotic calcification of the iliac arteries. Lymph nodes: Unremarkable. No enlarged lymph nodes. IMPRESSION: 1. No evidence for bowel obstruction. No definite asymmetric bowel mucosal abnormality identified, accounting for limitations with respiratory artifact. Minimal stool burden. No appreciable diverticulitis. No free intraperitoneal fluid or definite pneumoperitoneum. 2. No other significant alteration from the prior examination. Electronically signed by: Tremaine Miller MD 12/25/23 20:55 PM
--- NOTE | 2023-12-25 21:03 | CT Scan Report ---
Exam(s): CTA CHEST IV Amt: OPTIRAY 320 92ML EXAM: CT Angiography Chest With Intravenous Contrast CLINICAL HISTORY: sob. Evaluate for potential PE. TECHNIQUE: Axial computed tomographic angiography images of the chest with intravenous contrast. CTDI is 12.21 mGy and DLP is 403.45 mGy-cm. Automated exposure control was utilized for the study. A dose lowering technique was utilized adhering to the principles of ALARA. MIP reconstructed images were created and reviewed. COMPARISON: CT chest without contrast dated 12/12/2023 FINDINGS: Limitations: There is respiratory artifact, which degrades image quality on multiple image slices. Pulmonary arteries: No evidence for pulmonary embolism. Aorta: Atherosclerotic calcification of the thoracic aorta, similar. No aneurysm. Lungs: No focal airspace consolidation. Mild peribronchial cuffing noted bilaterally, crushable slightly more prominent in appearance from the previous examination. Similar platelike linear changes in the anterior right upper lobe. Pleural space: The previously noted small volume layering bilateral pleural effusions have resolved. No pneumothorax. Heart: The cardiac chambers are normal in size. Moderate coronary artery calcification. No pericardial effusion. Bones/joints: Similar dysmorphic appearance of the sternum consistent with previous healed fracture. No dislocation. Soft tissues: Unremarkable. Lymph nodes: Unremarkable. No enlarged lymph nodes. IMPRESSION: 1. No focal airspace consolidation. Mild peribronchial cuffing noted bilaterally, crushable slightly more prominent in appearance from the previous examination. Subtle inflammatory infectious bronchitis may be present. 2. The previously noted small volume layering bilateral pleural effusions have resolved. Electronically signed by: Tremaine Miller MD 12/25/23 21:02 PM
--- NOTE | 2023-12-25 22:29 | History & Physical Report ---
Date of Service December 25, 2023 Assessment & Plan (1) COPD with exacerbation: Plan: 73-year-old female with past medical history significant for hyperlipidemia, hypothyroidism, COPD, hypertension, CAD status post stent, history of hematuria, osteoarthritis, osteoporosis, migraine, ELIZABETH, tobacco use disorder, comes with shortness of breath. Patient recently was in the hospital on 12/05 admitted for chest pain and found to have elevated blood pressure and losartan and spironolactone were added for blood pressure control and she also was treated for complicated UTI and right pyelitis and was discharged on 12/09 and was readmitted on 12/10 for acute on chronic hypoxic and hypercapnic respiratory failure and treated with steroids and nebs and she was discharged on Incruse inhaler and steroid course and had two step and was needing 2 L oxygen on exertion and was discharged on 12/13 again comes today because of shortness of breath. Patient states since last night she was feeling little short of breath which progressively got worse. Has some chest discomfort. After breathing treatment she had a cough. Had some nausea today. Has epigastric abdominal pain.. Did not micturate much because she did not eat much today. Normal bowel movements. Has moderate headache in the front of the head. Vision is okay. No earaches. Has some runny nose. No sore throat. Currently on 3 L saturating okay. Hemodynamics are okay. Able to give her history. Patient states she lives with her daughter. She ambulates with holding furniture in the house and when she go out she ambulates using a rollator walker. COPD exacerbation Diminished breath sounds Shortness of breath Requiring 3 L oxygen IV Solu-Medrol 40 mg 3 times daily nebs [id number] and as needed Continue home inhalers Close monitor Mild chest discomfort EKG okay. Troponin okay We will follow serial enzymes Close monitor History of CAD status post stents History of ST elevated OK Statin, beta-zaki and Eliquis and Plavix Patient also on spironolactone and Lasix with potassium supplement Follow-up with cardiology Epigastric tenderness iv pepcid will monitor. Hypertension On Coreg, losartan and diuretics Will monitor Paroxysmal atrial fibrillation On Coreg and Eliquis Prolonged qt avoid q t prolonging drugs follow ekg. Hypothyroidism On Synthyroid ELIZABETH Citalopram GERD On Protonix Tobacco use Counseling DVT prophylaxis On Eliquis Disposition Med/telemetry Full code History of Present Illness Chief Complaint: Shortness of breath Primary Care Provider: Ronald Cortes MD 73-year-old female with past medical history significant for hyperlipidemia, hypothyroidism, COPD, hypertension, CAD status post stent, history of hematuria, osteoarthritis, osteoporosis, migraine, ELIZABETH, tobacco use disorder, comes with shortness of breath. Patient recently was in the hospital on 12/05 admitted for chest pain and found to have elevated blood pressure and losartan and spironolactone were added for blood pressure control and she also was treated for complicated UTI and right pyelitis and was discharged on 12/09 and was readmitted on 12/10 for acute on chronic hypoxic and hypercapnic respiratory failure and treated with steroids and nebs and she was discharged on Incruse inhaler and steroid course and had two step and was needing 2 L oxygen on exertion and was discharged on 12/13 again comes today because of shortness of breath. Patient states since last night she was feeling little short of breath which progressively got worse. Has some chest discomfort. After breathing treatment she had a cough. Had some nausea today. Has epigastric abdominal pain.. Did not micturate much because she did not eat much today. Normal bowel movements. Has moderate headache in the front of the head. Vision is okay. No earaches. Has some runny nose. No sore throat. Currently on 3 L saturating okay. Hemodynamics are okay. Able to give her history. Patient states she lives with her daughter. She ambulates with holding furniture in the house and when she go out she ambulates using a rollator walker. Past medical history. As mentioned above Past surgical history. Bone marrow aspiration. Colonoscopy. Drainage of ganglion cyst on the foot. Exploratory laparotomy. Fusion of the midfoot joint. Cardiac catheterization. Incision of colon. Appendectomy. Cholecystectomy. Repair of the left ruptured rotator cuff. Sigmoidoscopy with biopsy. Social history. . Lives with daughter. Smokes 0.5 packs a day for 70 years. No alcohol use. No drug use. Family history. Father had brain cancer. Diabetes. Mother had diabetes. Eye problems. A-fib. Hypertension. Stroke. Maternal aunt had breast cancer. Paternal grandfather had lung cancer. Maternal grandmother had CHF. Allergies Allergy/AdvReac Type Severity Reaction Status Date / Time bee venom protein (honey bee) Allergy Severe SWELLING Verified 12/06/23 12:51 SEVERE doxycycline Allergy Unknown Unknown - Unverified 12/06/23 12:51 On file w/ [facility] No Known Drug Allergies Allergy Unknown . Verified 06/02/17 11:01 Home Medications Medication Instructions Recorded Confirmed Type multivitamin 1 tab PO DAILY #0 tabs 02/07/14 12/25/23 History acetaminophen 325 mg tablet 650 mg PO Q6 PRN Pain #0 tabs 04/22/17 12/25/23 History (Tylenol) calcium carbonate 600 mg-vitamin 1 tab PO DAILY ##0 04/22/17 12/25/23 History D3 10 mcg (400 unit) tablet (Calcium 600 + D(3)) omega 5-vqs-fap-fish oil 1,000 mg 1 cap PO DAILY #0 caps 04/22/17 12/25/23 History (120 mg-180 mg) capsule (Fish Oil) magnesium oxide 400 mg PO BID #0 tabs 06/01/17 12/25/23 History alendronate 70 mg tablet 70 mg PO WK 12/06/23 12/25/23 History apixaban 5 mg tablet (Eliquis) 5 mg PO BID 12/06/23 12/25/23 History atorvastatin 40 mg tablet 40 mg PO QAM 12/06/23 12/25/23 History carvedilol 12.5 mg tablet 18.75 mg PO BID 12/06/23 12/25/23 History citalopram 40 mg tablet 40 mg PO QAM 12/06/23 12/25/23 History clopidogrel 75 mg tablet 75 mg PO QAM 12/06/23 12/25/23 History fluticasone propionate 115 2 puff inhalation BID 12/06/23 12/25/23 History mcg-salmeterol 21 mcg/actuation HFA inhaler furosemide 40 mg tablet 40 mg PO DAILY 12/06/23 12/25/23 History gabapentin 300 mg capsule 300 mg PO TID 12/06/23 12/25/23 History levothyroxine 25 mcg tablet 25 mcg PO DAILYBB 12/06/23 12/25/23 History oxybutynin chloride 5 mg 5 mg PO DAILY 12/06/23 12/25/23 History tablet,extended release 24 hr potassium chloride 10 mEq 10 meq PO BID 12/06/23 12/25/23 History tablet,extended release(part/cryst) (Klor-Con M) trazodone 50 mg tablet 50 - 100 mg PO HS 12/06/23 12/25/23 History nitroglycerin 0.4 mg sublingual 0.4 mg sublingual Q5M PRN chest 12/09/23 12/25/23 Rx tablet (Nitrostat) pain #30 tabs pantoprazole 40 mg tablet,delayed 40 mg PO DAILY #30 tabs 12/09/23 12/25/23 Rx release (Protonix) losartan 50 mg tablet 50 mg PO DAILY #30 tabs 12/10/23 12/25/23 Rx spironolactone 25 mg tablet 25 mg PO DAILY #30 tabs 12/10/23 12/25/23 Rx umeclidinium 62.5 mcg/actuation 1 inh inhalation DAILY #30 ea 12/14/23 12/25/23 Rx blister powder for inhalation (Incruse Ellipta) Past Med/Surg History Problem List (Updated 12/26/23 @ 08:08 by Elton Shepard MD) COPD (chronic obstructive pulmonary disease) (Acute) Acute and chronic postprocedural respiratory failure (Acute) COPD with exacerbation Elevated troponin level (Acute) Acute on chronic respiratory failure with hypoxia and hypercapnia (Acute) Absent pedal pulses COPD (chronic obstructive pulmonary disease) (Acute) Dyslipidemia, goal LDL below 70 PAF (paroxysmal atrial fibrillation) Uncontrolled hypertension ASCVD (arteriosclerotic cardiovascular disease) Chest pain at rest Thickened endometrium Elevated brain natriuretic peptide (BNP) level (Acute) Nausea & vomiting (Acute) Chest pain (Acute) Asthma exacerbation (Acute) Gastroenteritis (Acute) Fall in home (Acute) CHI (closed head injury) (Acute) Scalp laceration (Acute) Facial laceration (Acute) Heart disease HTN (hypertension) Kidney disease Bronchitis Fall in home (Acute) Hyponatremia (Acute) Hypokalemia (Acute) Abdominal pain Diarrhea Vomiting Medical History Macular degeneration Asthma Tobacco use disorder Coronary atherosclerosis of [place] coronary vessel Benign hypertension Atrial fibrillation Diabetes Surgical History H/O heart surgery History of cholecystectomy Hx of tubal ligation Social History Smoking Status: Current every day smoker Tobacco Type: Cigarettes Cigarettes Per Day: 0-5 cigs; Second Hand Exposure: No; Do You Dip or Chew Tobacco: No; Hx Alcohol Use: No Hx Substance Use: No Preferred Language: Korean Communication Ability: Effective Bait Painter Required: No Beliefs That Will Affect Care: None Current Living Situation: Family Current Living Situation Comment: with daughter Feels Safe at Home: Yes Safety Concerns: Feels Safe At This Time Assistive Devices: Cane, Denture - Upper, Denture - Lower, Oxygen - Continuous, Walker and Wheelchair Review of Systems Review of Systems: All systems reviewed & are unremarkable except as noted in HPI & below Physical Exam Physical Exam: General- Not in distress Head- atraumatic Eyes- PERRL. ENT- oropharynx dry Neck- supple, no JVD. Lungs- b/l diminished breath sounds, no wheezing or crackles Heart- regular rate and rhythm; no murmur, no gallop. Abdomen- normal bowel sounds, soft, epigastric tenderness no distension Extremities- no pretibial edema, no erythema seen Neuro- alert, oriented PERRL, no facial palsy; no dysarthria; moves extremities. Results & Data Results & Data Vital Signs (Past 12 Hours) Vital Signs Temp Pulse Pulse Resp BP Pulse Ox O2 Del Method 12/25/23 20:00 36.9 C 71 18 136/83 100 Nasal Cannula 12/25/23 19:23 74 18 100 Nasal Cannula 12/25/23 19:23 100 Nasal Cannula 12/25/23 19:00 36.5 C O2 Flow Rate 12/25/23 20:00 3 12/25/23 19:23 4 12/25/23 19:23 4 12/25/23 19:00 Diagnostic Findings Laboratory Results WBC 12.48 K/ul (4.8-10.8) H 12/25/23 19:19 RBC 4.37 M/uL (4.20-5.40) 12/25/23 19:19 Hgb 13.2 g/dl (12.0-16.0) 12/25/23 19:19 POC Hgb 14.3 g/dl (12.0-16.0) 12/25/23 19:25 Hct 41.2 % (37.0-47.0) 12/25/23 19:19 POC Hct 42 % (37-47) 12/25/23 19:25 MCV 94.3 fL (80.0-100.0) 12/25/23 19:19 MCH 30.2 pg (25.0-34.0) 12/25/23 19:19 MCHC 32.0 g/dL (32.0-36.0) 12/25/23 19:19 RDW Std Deviation 48.5 fL (36.4-46.3) H 12/25/23 19:19 RDW Coeff of Chet 14.1 % (11.5-14.5) 12/25/23 19:19 Plt Count 415 K/uL (130-400) H 12/25/23 19:19 MPV 8.4 fL (9.4-12.4) L 12/25/23 19:19 Immature Gran % (Auto) 0.7 % 12/25/23 19:19 Neut % (Auto) 65.4 % 12/25/23 19:19 Lymph % (Auto) 23.6 % 12/25/23 19:19 Cochran % (Auto) 7.4 % 12/25/23 19:19 Eos % (Auto) 2.5 % 12/25/23 19:19 Baso % (Auto) 0.4 % 12/25/23 19:19 Neut # (Auto) 8.17 K/uL (1.40-6.50) H 12/25/23 19:19 Lymph # (Auto) 2.94 K/uL (1.20-3.40) 12/25/23 19:19 Cochran # (Auto) 0.92 K/uL (0.11-0.59) H 12/25/23 19:19 Eos # (Auto) 0.31 K/uL (0.00-0.50) 12/25/23 19:19 Baso # (Auto) 0.05 K/uL (0.00-0.20) 12/25/23 19:19 Immature Gran # (Auto) 0.09 K/uL (0.01-0.20) 12/25/23 19:19 PT 11.5 Seconds (9.0-12.0) 12/25/23 19:19 INR 1.1 (0.9-1.1) 12/25/23 19:19 APTT 28 Seconds (21-31) 12/25/23 19:19 PTT Ratio 1.0 12/25/23 19:19 VBG pH 7.35 (7.36-7.41) L 12/25/23 19:19 VBG pCO2 68 mmHg (38-50) H 12/25/23 19:19 VBG pO2 31 mmHg 12/25/23 19:19 VBG HCO3 38 mmol/L 12/25/23 19:19 VBG O2 Saturation < 60.0 % 12/25/23 19:19 VBG Base Excess 9.2 mEq/L 12/25/23 19:19 POC Sodium 138 mmol/L (135-144) 12/25/23 19:25 Sodium 138 mmol/L (136-145) 12/25/23 19:19 POC Potassium 3.8 mmol/L (3.3-5.0) 12/25/23 19:25 Potassium 3.8 mmol/L (3.5-5.1) 12/25/23 19:19 POC Chloride 95 mmol/L (101-112) L 12/25/23 19:25 Chloride 97 mmol/L (98-107) L 12/25/23 19:19 Carbon Dioxide 36 mmol/L (21-32) H 12/25/23 19:19 POC Total CO2 34 mmol/L (24-31) H 12/25/23 19:25 Anion Gap 5 (3-11) 12/25/23 19:19 POC Anion Gap 14.0 mmol/L (16-25) L 12/25/23 19:25 POC BUN 6 mg/dl (7-18) L 12/25/23 19:25 BUN 7 mg/dl (6-23) 12/25/23 19:19 Creatinine 0.97 mg/dl (0.6-1.2) 12/25/23 19:19 POC Creatinine 1.1 mg/dl (0.6-1.3) 12/25/23 19:25 Est Cr Clr Drug Dosing Not Reportable 12/25/23 19:19 Est GFR ( Amer) 66.7 ml/min 12/25/23 19:19 Est GFR (Non-Af Amer) 57.5 ml/min 12/25/23 19:19 BUN/Creatinine Ratio 7.2 (10-20) L 12/25/23 19:19 Glucose 125 mg/dl (70-99(Fasting)) H 12/25/23 19:19 POC Glucose (other) 122 mg/dl (70-99) H 12/25/23 19:25 Calcium 9.2 mg/dl (8.6-10.3) 12/25/23 19:19 POC Ioniz Calcium Tabitha 1.17 mmol/l (1.12-1.32) 12/25/23 19:25 Magnesium 1.8 mg/dl (1.7-2.4) 12/25/23 19:19 Total Bilirubin 0.5 mg/dl (0.2-1.0) 12/25/23 19:19 Direct Bilirubin 0.1 mg/dl (0-0.2) 12/25/23 19:19 AST 17 U/L (13-39) 12/25/23 19:19 ALT 14 U/L (7-52) 12/25/23 19:19 Alkaline Phosphatase 83 U/L (34-104) 12/25/23 19:19 Troponin I High Sens 5.5 pg/ml (0-14) 12/25/23 19:19 B-Natriuretic Peptide 127 pg/ml (0-100) H 12/25/23 19:19 Total Protein 7.1 gm/dl (6.0-8.3) 12/25/23 19:19 Albumin 3.8 gm/dl (3.4-5.0) 12/25/23 19:19 Globulin 3.3 gm/dl (2.5-4.0) 12/25/23 19:19 Albumin/Globulin Ratio 1.2 (0.9-2) 12/25/23 19:19 Lipase 20 U/L (11-82) 12/25/23 19:19 Procalcitonin < 0.02 ng/ml (0-0.5) 12/25/23 19:19 Adenovirus (PCR) Not Detected (NotDetected) 12/25/23 19:19 B. pertussis DNA (PCR) Not Detected (NotDetected) 12/25/23 19:19 B.parapertussis DNA PCR Not Detected (NotDetected) 12/25/23 19:19 C. pneumoniae DNA (PCR) Not Detected (NotDetected) 12/25/23 19:19 Coronavirus OC43 (PCR) Not Detected (NotDetected) 12/25/23 19:19 Coronavirus HKU1 (PCR) Not Detected (NotDetected) 12/25/23 19:19 Coronavirus 229E (PCR) Not Detected (NotDetected) 12/25/23 19:19 SARS-CoV-2 (PCR) Not Detected (NotDetected) 12/25/23 19:19 Coronavirus NL63 (PCR) Not Detected (NotDetected) 12/25/23 19:19 Human Metapneumovir PCR Not Detected (NotDetected) 12/25/23 19:19 Influenza Type A (PCR) Not Detected (NotDetected) 12/25/23 19:19 Influenza Type B (PCR) Not Detected (NotDetected) 12/25/23 19:19 M. pneumoniae (PCR) Not Detected (NotDetected) 12/25/23 19:19 Parainfluenza 1 (PCR) Not Detected (NotDetected) 12/25/23 19:19 Parainfluenza 2 (PCR) Not Detected (NotDetected) 12/25/23 19:19 Parainfluenza 3 (PCR) Not Detected (NotDetected) 12/25/23 19:19 Parainfluenza 4 (PCR) Not Detected (NotDetected) 12/25/23 19:19 RSV (PCR) Not Detected (NotDetected) 12/25/23 19:19 Entero/Rhino (PCR) Not Detected (NotDetected) 12/25/23 19:19 Impressions Abdomen/Pelvis CT 12/25/23 19:23 Exam(s): CT ABDOMEN + PELVIS With Contrast IV Amt: OPTIRAY 320 92ML EXAM: CT Abdomen and Pelvis With Intravenous Contrast CLINICAL HISTORY: epigastric pain,n/v. TECHNIQUE: Axial computed tomography images of the abdomen and pelvis with intravenous contrast. CTDI is 9.78 mGy and DLP is 359.75 mGy-cm. Automated exposure control was utilized for the study. A dose lowering technique was utilized adhering to the principles of ALARA. CONTRAST: Patient received OPTIRAY 320 92ML of IV contrast COMPARISON: CT abdomen and pelvis with contrast dated 12/06/2023 FINDINGS: Limitations: There is respiratory artifact, which degrades image quality throughout the examination. Lung bases: Unremarkable. No mass. No consolidation. ABDOMEN: Liver: Unremarkable. No mass. Gallbladder and bile ducts: The gallbladder is surgically absent. No ductal dilation. Pancreas: Unremarkable. No mass. No ductal dilation. Spleen: Unremarkable. No splenomegaly. Adrenals: Unremarkable. No mass. Kidneys and ureters: Kidneys demonstrate normal enhancement, accounting for mild artifact. Similar cortical cysts. No hydronephrosis or new perinephric abnormality. Stomach and bowel: Stomach is only mildly distended with fluid and gas. No gastric mucosal thickening. No evidence for bowel obstruction. No definite asymmetric bowel mucosal abnormality identified, accounting for limitations with respiratory artifact. Minimal stool burden. No appreciable diverticulitis. PELVIS: Appendix: Normal retrocecal appendix. Bladder: Unremarkable. No mass. Reproductive: The previously noted prominent hypodense areas centrally in the uterus is not as conspicuous. The uterus is normal in caliber. No adnexal mass. ABDOMEN and PELVIS: Intraperitoneal space: Unremarkable. No free air. No significant fluid collection. Bones/joints: Multilevel degenerative changes, not significantly altered. No acute fracture. No dislocation. Soft tissues: Unremarkable. Vasculature: Extensive atherosclerotic calcification of the distal thoracic and abdominal aorta. Similar short segment fusiform ectasia of the infrarenal aorta, measuring 3.1 x 2.8 cm, stable in size. No dissection. Heavy calcification of the infrarenal aorta is noted. Similar atherosclerotic calcification of the iliac arteries. Lymph nodes: Unremarkable. No enlarged lymph nodes. IMPRESSION: 1. No evidence for bowel obstruction. No definite asymmetric bowel mucosal abnormality identified, accounting for limitations with respiratory artifact. Minimal stool burden. No appreciable diverticulitis. No free intraperitoneal fluid or definite pneumoperitoneum. 2. No other significant alteration from the prior examination. Electronically signed by: Tremaine Miller MD 12/25/23 20:55 PM Chest CTA 12/25/23 19:50 Exam(s): CTA CHEST IV Amt: OPTIRAY 320 92ML EXAM: CT Angiography Chest With Intravenous Contrast CLINICAL HISTORY: sob. Evaluate for potential PE. TECHNIQUE: Axial computed tomographic angiography images of the chest with intravenous contrast. CTDI is 12.21 mGy and DLP is 403.45 mGy-cm. Automated exposure control was utilized for the study. A dose lowering technique was utilized adhering to the principles of ALARA. MIP reconstructed images were created and reviewed. COMPARISON: CT chest without contrast dated 12/12/2023 FINDINGS: Limitations: There is respiratory artifact, which degrades image quality on multiple image slices. Pulmonary arteries: No evidence for pulmonary embolism. Aorta: Atherosclerotic calcification of the thoracic aorta, similar. No aneurysm. Lungs: No focal airspace consolidation. Mild peribronchial cuffing noted bilaterally, crushable slightly more prominent in appearance from the previous examination. Similar platelike linear changes in the anterior right upper lobe. Pleural space: The previously noted small volume layering bilateral pleural effusions have resolved. No pneumothorax. Heart: The cardiac chambers are normal in size. Moderate coronary artery calcification. No pericardial effusion. Bones/joints: Similar dysmorphic appearance of the sternum consistent with previous healed fracture. No dislocation. Soft tissues: Unremarkable. Lymph nodes: Unremarkable. No enlarged lymph nodes. IMPRESSION: 1. No focal airspace consolidation. Mild peribronchial cuffing noted bilaterally, crushable slightly more prominent in appearance from the previous examination. Subtle inflammatory infectious bronchitis may be present. 2. The previously noted small volume layering bilateral pleural effusions have resolved. Electronically signed by: Tremaine Miller MD 12/25/23 21:02 PM ECG Additional Comments: ECG. Normal sinus rhythm rate of 68. Nonspecific ST anterior abnormalities. QTc 523 Code Status & VTE Plan VTE Prophylaxis Plan VTE Prophylaxis will be ordered: Yes
--- OUTSIDE RECORDS SUMMARY | 2023-12-25 22:31 | External Medical Summary | Summary of Care ---
Author Name Unknown Organization [facility] Address [address] [place] [address] Phone [phone] Care Team Providers Care Electric Cell Tender Name Role Phone Ronald Cortes MD Primary Care Provider [phone] Reason for Visit * Reason Onset Date Comments Hospital Follow-Up 12/15/2023 [facility] ([facility]) Encounter Details Date Type Department Care Team ([facility] st Contact Info) Description 12/15/2023 Telephone [place] [address] [place] [address] Ping Payan RN Hospital Follow-Up (SUNITHA ([facility])) Allergies Active Allergy Reactions Criticality Noted Date Comments Bee Venom Anaphylaxis High 02/27/2006 Doxycycline Low 08/04/2023 Intolerant, GI upset documented as of this encounter (statuses as of 12/15/2023) Medications Medication Sig Dispensed Refills Start Date End Date Status CALCIUM + D 600-200 MG-UNIT PO TABS 1 BID 0 03/13/2006 Active MULTIVITAMINS PO TABS daily 0 03/13/2006 Active ACETAMINOPHEN 325 MG PO TABSIndications:INTE RFACED RESULT,Pneumothorax 2 Tab Oral Every 6 hours as needed for fever, pain, headache 1 Tab 0 07/27/2013 Active [place]-3 Fatty Acids (FISH OIL) 1000 MG Capsule [...] on 10/09/2023 Gabapentin 300 MG Oral Capsule (Neurontin)Indicatio ns:Post-traumatic [...] for Pain, Moderate. 45 Tablet 08/07/2023 Active Tiotropium [place] Monohydrate 18 MCG Inhalation Capsule (Spiriva HandiHaler) [...] Code J 44.9 360 mL 11/18/2023 Active Atorvastatin Calcium 40 MG Oral Tablet (Lipitor) TAKE 1 TABLET BY MOUTH EVERY DAY IN THE MORNING 90 Tablet 11/28/2023 Active Eliquis 5 MG Oral Tablet (Apixaban)Indication s:Paroxysmal atrial fibrillation (HCC) TAKE 1 TABLET BY MOUTH IN THE MORNING AND BEFORE BEDTIME 180 Tablet 3 11/28/2023 Active Carvedilol 12.5 MG Oral Tablet (Coreg)Indications:D yslipidemia, goal LDL below 100,HTN, goal below 150/90 TAKE 1 AND 1/2 TABLETS BY MOUTH TWICE DAILY 270 Tablet 3 11/28/2023 Active Nitroglycerin 0.4 MG Sublingual Tablet Sublingual (Nitrostat) Place 1 Tablet under the tongue every 5 minutes as needed for Pain, Chest. Active Pantoprazole Sodium 40 MG Oral Tablet Delayed Release (Protonix) Take 1 Tablet by mouth in the morning. Active Spironolactone 25 MG Oral Tablet (Aldactone) Take 1 Tablet by mouth in the morning. Active Losartan Potassium 50 MG Oral Tablet (Cozaar) Take 1 Tablet by mouth in the morning. Active Hospital, Clinic, or Other Facility Administered [...] as of this encounter (statuses as of 12/15/2023) Active Problems Problem Noted Date Diagnosed Date COPD, group B, by GOLD 2017 classification 09/20 Overview: Per COPD GOLD Classification Acquired hypothyroidism 07/19/2023 History of coronary angioplasty with insertion o f stent 07/01/2023 Coronary artery disease invo lving [place] coronary artery of [place] heart without angina pectoris 07/01/2023 Hematuria of [...] as of this encounter (statuses as of 12/15/2023) Resolved Problems Problem Noted Date Diagnosed Date [...] as of this encounter (statuses as of 12/15/2023) Immunizations Name Administration Dates Next Due Pneumococcal Conjugate Vacc, 13 Valent (Prevnar) 11/17/2014 Pneumococcal Polysaccharide PPV23 (Pneumovax) 12/31/2016,06/10/2010 Season Influenza, Quad, PF, Adjuvanted, 65+ Yrs, IM (FLUAD) 01/24/2020 Seasonal Influenza, PF, 6 M & above, IM , (FluLaval or Fluzone) 12/27/2018,12/21/2017,12/31/2016 Seasonal Influenza, Quadriva lent Hd (Fluzone Hd) 03/14/2021 Seasonal Influenza, Quadriva lent, No Preserve, IM 03/22/2015 03/22/2016 Seasonal Influenza, Trivalen t, (IIV3), with Preserv, (Fluzone) 12/28/2013,01/19/2013,01/15/2012,01/11,02/11/2010,05/12/2008,05/12/19 09(Deferred: Patient Refused),03/15/2007,02/13/2006 TD, Preservative Free 09/12/2021 TDAP, Age 7 and older, IM (Adacel) 06/10/2010 Varicella Zoster Vaccine (Adult) 01/23/2012 documented as of this encounter Social History Tobacco Use Types Packs/Day Years Used Date Smoking Tobacco: Every Day Cigarettes 0.6 70.3 Started: 09/02/1973 Smokeless Tobacco: Never Comments:1/2 ppd. Smoker /2 07/04. 5 cpd smoker. 11/18/23 Alcohol Use [...] encounter Miscellaneous Notes * Telephone Encounter - Ping Payan RN - 12/15/2023 1:20 PM EDT Transitions of Care Note Reason for Referral:Recent Admission Phone visit for follow up: SUNITHA Admitted to: [facility], Date: 12/11/2023 Discharged to: Home with Home services, Date: 12/14/2023 Diagnosis driving hospitalization: COPD Exacerbation Source/Contact: Patient SUBJECTIVE Consent: Verbal consent for review of hospital discharge: Yes REVIEW OF SYSTEMS Patient/Other Reports: Current patient/caregiver problems or concerns: No concerns CV: Denies problems Pulmonary: Denies problems Chills/Sweats/Fever:Denies chills/sweats Denies fever Appetite:Not much appetitie but is eating Current diet: Regular Bowel: denies problems Bladder: denies problems Wound (If applicable): N/A Pain:Denies Sleep:Trouble sleeping sometimes, takes sleeping pill FUNCTIONAL STATUS: ADL'S: Needs Assistance With:Bathing, daughter helps IADL'S: Needs Assistance With:Grocery Shopping, Cooking food, and Routine Housework Cognitive and Mental Health: denies problems, alert and oriented x 3, and able to communicate, understand instructions, process information. MEDICATION RECONCILIATION Medications: Discharge med list reviewed with patient or caregiver Incruse Ellipta, Prednisone States daughter is going to pickling machine operator Incruse today at pharmacy ASSESSMENT Medication Risk Assessment: No risks identified Did patient fail outpatient treatment? Yes Discharge instructions available for review? No PLAN Symptom Monitoring Interventions:Member/caregiver education - signs and symptoms to contact PrimaryCare (DO NOT DELETE-Three mcgarry symptoms patient is to report to PCP) 1. Chest Pain 2. SOB 3. Fever/chills Shirring [employer] Dean of Care interventions/Action Plan: 5 - 7 day follow-up with PCP in place - Date: PCP appointment in AM Educated on role of SUNITHA completed with patient/caregiver. Educated patient/caregiver on patient right to have input on SUNITHA plan of care. Verification of Home Health/DME if indicated: YES O2 2L/NC with activity and HS, has walker, rollator, wheelchair and cane Identified Care Gaps: Yes Care Gaps closed this call: Appointment made or confirmed and Transition of Care follow-up communication Re-evaluation of Plan of Care and progress towards goals achievement: Patient education this visit: Verbal, Confirmed PCP appointment 12/16/2023 Plan to instructed to call Primary Care Provider with change in symptoms or as needed before next follow-up, discharge needs met, verbalizes understanding and agrees with plan. Ping Payan, RN documented in this encounter Plan of Treatment Upcoming Encounters Date Type Department Care Team (Late st Contact Info) Description 12/16/2023 11:00 AM EDT Office Visit [facility] [address] [facility] [id number] [facility] Cortes [facility] [address] [facility] [address] 01/13/2024 3:00 PM EDT Cardiac Studies Cardiac Studies, [facility] [address] [facility] [place] [address] 02/10/2024 4:20 PM EDT Office Visit [facility] [address] [facility] [phone] [facility]es [facility] [address] [facility] [address] 05/23/2024 2:00 PM EST Office Visit Pulmonary Medicine, [facility] [address] [facility] [place] [address] Marbin Serrano MD [address] [facility] [place] [address] 06/07/2024 8:30 AM EST Office Visit Cardiology, [facility] [address] [facility] [place] [address] Pepe Lennon DO [address] [facility] [place] [address] Scheduled Procedures Name Priority Associated Diagnoses Date/Ti [...] 18, 12/21/2000, 10/31/1999 COVID-19 Vaccine ( season) 2023 03/08/2021, 02/07/2021 Influenza Vaccine (FLU shot) (#1) [...] 06/02/2027 06/02/2017, 04/12/2007 Colorectal Cancer Screening 06/02/2027 DTap/Tdap Vaccines (3 - Td or Tdap) 09/13/2031 09/12/2021, 06/10/2010, 07/16/1999 VITAMIN D LEVEL ONCE IN A LIFETIME-USE SMARTSET# [id number] Completed 03/22/2015 Pneumococcal Vaccine: 65+ Years Completed [...] this encounter Medical Devices Implanted Type Area Cmv Driver Device Identifier Shelf Expiration Date Model / Serial / Lot Chip Cancellous [facility] [id number] - [id number] Implanted:Qty: 1 on 08/08/2013 at OR [facility] Tissue - Human Left: Foot MUSCULOSKELETAL TRANSPLANT FND 07/24/2015 [id number] / [id number] / Screw Nonlock 3.5 X 24 - [id number] Implanted:Qty: 1 on 08/08/2013 at OR [facility] Left: Foot ORTHOHELIX SURGICAL DESIGNS BUSINESS INTEGRATION MANAGER-011-3 5-24 / / Screw Locking 3.5 X 16 - [id number] Implanted:Qty: 2 on 08/08/2013 at OR [facility] Left: Foot ORTHOHELIX SURGICAL DESIGNS BUSINESS INTEGRATION MANAGER-021-3 5-16 / / Plate 6 Hole Beta Mxl-0026 - [id number] Implanted:Qty: 1 on 08/08/2013 at OR [facility] Left: Foot ORTHOHELIX SURGICAL DESIGNS MXL-0026 / / Screw Locking 3.5 X 20 - [id number] Implanted:Qty: 1 on 08/08/2013 at OR [facility] Left: Foot ORTHOHELIX SURGICAL DESIGNS BUSINESS INTEGRATION MANAGER-021-3 5-20 / / Screw Nonlock 3.5 X 16 - [id number] Implanted:Qty: 1 on 08/08/2013 at OR [facility] Left: Foot ORTHOHELIX SURGICAL DESIGNS BUSINESS INTEGRATION MANAGER-011-3 5-16 / / Screw Nonlock 3.5 X 18 - [id number] Implanted:Qty: 1 on 08/08/2013 at OR [facility] Left: Foot ORTHOHELIX SURGICAL DESIGNS BUSINESS INTEGRATION MANAGER-011-3 5-18 / / Screw Nonlock 3.5 X 14 - [id number] Implanted:Qty: 1 on 08/08/2013 at OR [facility] Left: Foot ORTHOHELIX SURGICAL DESIGNS BUSINESS INTEGRATION MANAGER-011-3 5-14 / / 4.0 X 3.0 Short Max Torque Implanted:Qty: 1 on 08/08/2013 at OR [facility] Left: Foot ORTHOHELIX SURGICAL DESIGNS MSD-010-4 0-030S / / 4.0 X 32.5 Short Max Torque Implanted:Qty: 1 on 08/08/2013 at OR [facility] Left: Foot MSD-010-4 0-325S / / 4.0 X 28 Short Max Torque Implanted:Qty: 1 on 08/08/2013 at OR [facility] Left: Foot ORTHOHELIX SURGICAL DESIGNS MSD-010-4 0-028S / / 4.0 X 22 Short Max Torque Implanted:Qty: 1 on 08/08/2013 at OR [facility] Left: Foot ORTHOHELIX SURGICAL DESIGNS MSD-010-4 0-022S / / [place] Gold 4.0 - [id number] Implanted:Qty: 1 on 08/08/2013 at OR [facility] Left: Foot ORTHOHELIX SURGICAL DESIGNS CSS-500-4 0A / / Plate Lps Alpha 2 Slot - [id number] Implanted:Qty: 1 on 08/08/2013 at OR [facility] Left: Foot ORTHOHELIX SURGICAL DESIGNS MXL-002-2 A / / Screw Variable 3.5 X 12mm - [id number] Implanted:Qty: 1 on 08/08/2013 at OR [facility] Left: Foot ORTHOHELIX SURGICAL DESIGNS RAKESH-031-3 5-12 / / Screw Variable 3.5 X 18mm - [id number] Implanted:Qty: 1 on 08/08/2013 at OR [facility] Left: Foot ORTHOHELIX SURGICAL DESIGNS [...] Power of Attor elizabeth? No Care Teams Electric Cell Tender Relationship Specialty Start Date End Date Ronald Cortes MD [address] [facility] [place] [place] [address] PCP - General 06/10/02 documented as of this encounter
--- OUTSIDE RECORDS SUMMARY | 2023-12-25 22:31 | External Medical Summary | Summary of Care ---
Author Name Unknown Organization [facility] Address [address] [place] [address] Phone [phone] Care Team Providers Care Document Scanner Name Role Phone Ronald Cortes MD Primary Care Provider [phone] Reason for Visit * Reason Onset Date Comments Hospital Follow-Up 12/11/2023 [facility] ([facility]) Encounter Details Date Type Department Care Team ([facility] st Contact Info) Description 12/11/2023 Telephone [place] [address] [place] [address] Ping Payan RN Hospital Follow-Up (SUNITHA ([facility])) Allergies Active Allergy Reactions Criticality Noted Date Comments Bee Venom Anaphylaxis High 02/27/2006 Doxycycline Low 08/04/2023 Intolerant, GI upset documented as of this encounter (statuses as of 12/11/2023) Medications Medication Sig Dispensed Refills Start Date End Date Status CALCIUM + D 600-200 MG-UNIT PO TABS 1 BID 0 03/13/2006 Active MULTIVITAMINS PO TABS daily 0 03/13/2006 Active ACETAMINOPHEN 325 MG PO TABSIndications:INTE RFACED RESULT,Pneumothorax 2 Tab Oral Every 6 hours as needed for fever, pain, headache 1 Tab 0 07/27/2013 Active [place]-3 Fatty Acids (FISH OIL) 1000 MG Capsule [...] Pain, Moderate. 45 Tablet 08/07/2023 Active Tiotropium [place] Monohydrate 18 MCG Inhalation Capsule (Spiriva HandiHaler) [...] TWICE DAILY 270 Tablet 3 11/28/2023 Active Hospital, Clinic, or Other Facility Administered [...] as of this encounter (statuses as of 12/11/2023) Active Problems Problem Noted Date Diagnosed Date COPD, group B, by GOLD 2017 classification 09/20 Overview: Per COPD GOLD Classification Acquired hypothyroidism 07/19/2023 History of coronary angioplasty with insertion o f stent 07/01/2023 Coronary artery disease invo lving [place] coronary artery of [place] heart without angina pectoris 07/01/2023 Hematuria of [...] as of this encounter (statuses as of 12/11/2023) Resolved Problems Problem Noted Date Diagnosed Date [...] as of this encounter (statuses as of 12/11/2023) Immunizations Name Administration Dates Next Due Pneumococcal [...] 0.6 70.3 Started: 09/02/1973 Smokeless Tobacco: Never Comments:/2 ppd. Smoker 5/2 07/04. 5 cpd smoker. 11/18/23 Alcohol Use [...] Telephone Encounter - Ping Payan RN - 12/11/2023 12:54 PM EDT Transitions of Care Note Reason for Referral:Recent Admission Phone visit for follow up: SUNITHA Admitted to: [facility], Date: 12/06/2023 Discharged to: Home, Date: 12/10/2023 Diagnosis driving hospitalization: Chest Pain, ACS ruled out, Complicated UTI Patient is back in ER 12/11/2023.SUNITHA not completed. Ping Payan RN documented in this encounter Plan of Treatment Upcoming Encounters Date Type Department Care Team (Late st Contact Info) Description 12/16/2023 11:00 AM EDT Office Visit [place] [address] [facility] [place] [phone] Ronald Cortes MD [address] [place] [address] 01/13/2024 3:00 PM EDT Cardiac Studies Cardiac Studies, [facility] [address] [facility] [place] [address] 02/10/2024 4:20 PM EDT Office Visit [place] [address] [facility] [place] [phone] Ronald Cortes MD [address] [place] [address] 05/23/2024 2:00 PM EST Office Visit Pulmonary Medicine, [facility] [address] [facility] [place] [address] Marbin Serrano MD [address] [place] [address] 06/07/2024 8:30 AM EST Office Visit Cardiology, [facility] [address] [facility] [place] [address] Pepe Lennon DO [address] [facility] [place] [address] Scheduled Procedures Name Priority Associated Diagnoses Date/Ti [...] D LEVEL ONCE IN A LIFETIME-USE SMARTSET# 62870 Completed 03/22/2015 Pneumococcal Vaccine: 65+ Years Completed [...] this encounter Medical Devices Implanted Type Area Geoscientist Device Identifier Shelf Expiration Date Model / Serial / Lot Chip Cancellous [facility] 777833 - [id number] Implanted:Qty: 1 on 08/08/2013 at [place] [facility] Tissue - Human Left: Foot MUSCULOSKELETAL TRANSPLANT FND 07/24/2015 [id number] / [id number] / Screw Nonlock 3.5 X 24 - [id number] Implanted:Qty: 1 on 08/08/2013 at [place] [facility] Left: Foot ORTHOHELIX SURGICAL DESIGNS MANAGER RESTAURANT-011-3 5-24 / / Screw Locking 3.5 X 16 - [id number] Implanted:Qty: 2 on 08/08/2013 at [place] [facility] Left: Foot ORTHOHELIX SURGICAL DESIGNS MANAGER RESTAURANT-021-3 5-16 / / Plate 6 Hole Beta Mxl-0026 - [id number] Implanted:Qty: 1 on 08/08/2013 at [place] [facility] Left: Foot ORTHOHELIX SURGICAL DESIGNS MXL-0026 / / Screw Locking 3.5 X 20 - [id number] Implanted:Qty: 1 on 08/08/2013 at [place] [facility] Left: Foot ORTHOHELIX SURGICAL DESIGNS MANAGER RESTAURANT-021-3 5-20 / / Screw Nonlock 3.5 X 16 - [id number] Implanted:Qty: 1 on 08/08/2013 at [place] [facility] Left: Foot ORTHOHELIX SURGICAL DESIGNS MANAGER RESTAURANT-011-3 5-16 / / Screw Nonlock 3.5 X 18 - [id number] Implanted:Qty: 1 on 08/08/2013 at [place] [facility] Left: Foot ORTHOHELIX SURGICAL DESIGNS MANAGER RESTAURANT-011-3 5-18 / / Screw Nonlock 3.5 X 14 - [id number] Implanted:Qty: 1 on 08/08/2013 at [place] [facility] Left: Foot ORTHOHELIX SURGICAL DESIGNS MANAGER RESTAURANT-011-3 5-14 / / 4.0 X 3.0 Short Max Torque Implanted:Qty: 1 on 08/08/2013 at [place] [facility] Left: Foot ORTHOHELIX SURGICAL DESIGNS MSD-010-4 0-030S / / 4.0 X 32.5 Short Max Torque Implanted:Qty: 1 on 08/08/2013 at [place] [facility] Left: Foot MSD-010-4 0-325S / / 4.0 X 28 Short Max Torque Implanted:Qty: 1 on 08/08/2013 at [place] [facility] Left: Foot ORTHOHELIX SURGICAL DESIGNS MSD-010-4 0-028S / / 4.0 X 22 Short Max Torque Implanted:Qty: 1 on 08/08/2013 at [place] [facility] Left: Foot ORTHOHELIX SURGICAL DESIGNS MSD-010-4 0-022S / / [place] Gold 4.0 - [id number] Implanted:Qty: 1 on 08/08/2013 at [place] [facility] Left: Foot ORTHOHELIX SURGICAL DESIGNS CSS-500-4 0A / / Plate Lps Alpha 2 Slot - [id number] Implanted:Qty: 1 on 08/08/2013 at [place] [facility] Left: Foot ORTHOHELIX SURGICAL DESIGNS MXL-002-2 A / / Screw Variable 3.5 X 12mm - [id number] Implanted:Qty: 1 on 08/08/2013 at [place] [facility] Left: Foot ORTHOHELIX SURGICAL DESIGNS RAKESH-031-3 5-12 / / Screw Variable 3.5 X 18mm - [id number] Implanted:Qty: 1 on 08/08/2013 at [place] [facility] Left: Foot ORTHOHELIX SURGICAL DESIGNS RAKESH-031-3 5-18 [...] Power of Attor elizabeth? No Care Teams Document Scanner Relationship Specialty Start Date End Date Ronald Cortes MD [address] [place] [facility] [place] [address] PCP - General 06/10/02 documented as of this encounter
--- OUTSIDE RECORDS SUMMARY | 2023-12-25 22:31 | External Medical Summary | Summary of Care ---
Author Name Unknown Organization [facility] Address [address] [place] [address] Phone [phone] Care Team Providers Care Criminal Justice Teacher Name Role Phone oRnald Cortes MD Primary Care Provider [phone] Reason for Visit * Reason Onset Date Comments Hospital Follow-Up Patient is he re today for a hospital follow up. Patient states she has yet been able to receive a nebulizer. Patient states she has had a sore throat since being on prednisone. Hospital Follow-Up 12/16/2023 Encounter Details Date Type Department Care Team (Latest Contact Info) Description 12/16/2023 11:00 AM EDT Office Visit [facility] [address] [place] [address] Ronald Cortes MD [address] [place] [address] Need for prophylactic vaccination and inoculation against influenza*; Need for vaccination for zoster; COPD, group B, by GOLD 2017 classification ([facility]); Hospital discharge follow-up Allergies Active Allergy Reactions Criticality Noted Date Comments Bee Venom Anaphylaxis High 02/27/2006 Doxycycline Low 08/04/2023 Intolerant, GI upset documented as of this encounter (statuses as of 12/16/2023) Medications Medication Sig Dispensed Refills Start Date End Date Status CALCIUM + D 600-200 MG-UNIT PO TABS 1 BID 0 03/13/2006 Active MULTIVITAMINS PO TABS daily 0 03/13/2006 Active ACETAMINOPHEN 325 MG PO TABSIndications:INTE RFACED RESULT,Pneumothorax 2 Tab Oral Every 6 hours as needed for fever, pain, headache 1 Tab 0 07/27/2013 Active Yoakum-3 Fatty Acids (FISH OIL) 1000 MG Capsule [...] Pain, Moderate. 45 Tablet 08/07/2023 Active Tiotropium Novelty Monohydrate 18 MCG Inhalation Capsule (Spiriva HandiHaler) [...] Tablet by mouth in the morning. Active predniSONE 20 MG Oral Tablet (Deltasone) 12/14/2023 Active Amoxicillin-Pot Clavulanate 875-125 MG Oral Tablet (Augmentin) TAKE 1 TABLET BY MOUTH EVERY 12 HOURS FOR 4 DAYS 12/09/2023 Active Incruse Ellipta 62.5 MCG/ACT Inhalation Aerosol Powder Breath Activated 12/14/2023 Active Hospital, Clinic, or Other Facility Administered [...] as of this encounter (statuses as of 12/16/2023) Active Problems Problem Noted Date Diagnosed Date COPD, group B, by GOLD 2017 classification 09/20 Overview: Per COPD GOLD Classification Acquired hypothyroidism 07/19/2023 History of coronary angioplasty with insertion o f stent 07/01/2023 Coronary artery disease invo lving kotzebue coronary artery of kotzebue heart without angina pectoris 07/01/2023 Hematuria of [...] as of this encounter (statuses as of 12/16/2023) Resolved Problems Problem Noted Date Diagnosed Date [...] as of this encounter (statuses as of 12/16/2023) Immunizations Name Administration Dates Next Due Pneumococcal [...] 0.6 70.3 Started: 09/02/1973 Smokeless Tobacco: Never Comments:04/14 ppd. [...] Sign Reading Time Taken Comments Blood Pressure 112/62 12/16/2023 11:13 AM EDT Pulse 60 12/16/2023 11:13 AM EDT Temperature 36.1 C (96.9 F) 12/16/2023 11:13 AM E DT Respiratory Rate 20 12/16/2023 11:13 AM EDT Oxygen Saturation 90% 12/16/2023 11:13 AM EDT Inhaled Oxygen Concentration - - Weight 55.1 kg (121 lb 6.4 oz) 12/16/2023 11:13 AM EDT Height 154.9 cm (5' 1") 12/16/2023 11:13 AM EDT Body Mass Index 22.94 12/16/2023 11:13 AM EDT documented in this encounter Functional [...] * Patient Instructions* Jaylin Jarvis LPN - 12/16/2023 11:11 AM EDT ~~PATIENT INSTRUCTIONS FOR SHINGRIX VACCINE~~ [...] OF EYES, FACE OR INSIDE OF NOSE. ~~PATIENT INSTRUCTIONS FOR SHINGRIX VACCINE~~ Possible side [...] Progress Notes * Ronald Cortes MD - 12/16/2023 11:25 AM EDT Pt uses [facility] for Oxygen. Send DME request for nebulizerSubjective: Kae Johnston is a 73 year old female. Chief Complaint Patient presents with Hospital Follow-Up Patient is here today for a hospital follow up. Patient states she has yet been able to receive a nebulizer. Patient states she has had a sore throat since being on prednisone. HPI: 73-year-old who has a known history of severe COPD oxygen dependent recently hospitalized twice [facility]. First hospitalization was on 12/06/2023 and discharged 12/11/2023. She presented with chestpain in ultimately was also found to have a complicated UTI with suspicion of right pyelonephritis growing E coli. Myocardial infarction was ruled out. Her echocardiogram actually showed reasonable cardiac function with ejection fraction of 60%. The thought was that her chest pain was probably related to marked hypertension uncontrolled on admission. During the hospitalization she was placed on spironolactone 25 mg to use once daily and losartan 50 mg to use once daily. Her amlodipine that was at 5 mg a day was stopped. She is actually not sure whether she stopped this medicine or not. The same day of discharge from [facility] she was readmitted with marked shortness of breath. She was treated as a COPD exacerbation. She was continued on antibiotics in given prednisone 40 mg daily with the last dose to be tomorrow morning. Her 1 inhaler was changed: She has been on Spiriva 1 capsule with 1 inhalation twice daily. She was switched to Incruse to use once a day. She notes that the Incruse is much more expensive than the Spiriva and she would prefer to be on Spiriva. They both are long-term anticholinergic inhalation agents. She asked for a nebulizer. She had an order for nebulizer that she was taken to [facility] and they were asking over 400 dollars which was not doable. I will send a order for durable medical equipment for the nebulizer and tubing to [facility] per her instruction. Since discharge 2nd hospitalization she has done okay although it has been a bit of a struggle. Sheis still short of breath with any activity whatsoever in she knows her pulse ox drops below 90 withany activity. She is using 2 L nasal cannula continuous. Patient Active Problem List Diagnosis GENERALIZED ANXIETY DIS ADVANCE DIRECTIVE INFORMATION COMMON MIGRAINE WITHOUT MENTION OF INTRACTABLE MIGRAINE Generalized osteoarthritis of multiple sites Dyslipidemia, goal LDL below 100 Osteoporosis HTN, goal below 150/90 Chronic nonspecific lung disease Tobacco use disorder Hematuria of undiagnosed cause History of coronary angioplasty with insertion of stent Coronary artery disease involving kotzebue coronary artery of kotzebue heart without angina pectoris Acquired hypothyroidism COPD, group B, by GOLD 2017 classification ([facility]) Current Outpatient Medications Medication Sig Dispense Refill CALCIUM + D 600-200 MG-UNIT PO TABS 1 BID 0 MULTIVITAMINS PO TABS daily 0 ACETAMINOPHEN 325 MG PO TABS 2 Tab Oral Every 6 hours as needed for fever, pain, headache 1 Tab 0 Yoakum-3 Fatty Acids (FISH OIL) 1000 MG Capsule [...] Tablet Extended Release 24 Hour (Ditropan XL) Triamcinolone Acetonide 0.1 % External Ointment (Aristocort) Apply topically to affected area 2 times a day. To affected area. 80 g 5 Gabapentin 300 MG Oral Capsule (Neurontin) TAKE [...] needed for Pain, Moderate. 45 Tablet 0 Tiotropium Novelty Monohydrate 18 MCG Inhalation Capsule (Spiriva HandiHaler) [...] HOURS NEEDED FOR NAUSEA 20 Tablet 3 Clopidogrel Bisulfate 75 MG Oral Tablet (pLAVix) Take 1 Tablet by mouth in the morning. 90 Tablet 3 Full Kit Nebulizer Set Use with Nebulizer Medication EVERY SIX HOURS WHILE AWAKE as directed. Dx Code: J44.9 1 Each 3 Albuterol Sulfate 0.63 MG/3ML Inhalation Nebulization Solution (Accuneb) Inhale 1 Vial via nebulizer every 6 hours as needed for Wheezing or Shortness of Breath. Dx Code J 44.9 360 mL 0 Atorvastatin Calcium 40 MG Oral Tablet (Lipitor) TAKE 1 TABLET BY MOUTH EVERY DAY IN THE MORNING 90Tablet 0 Eliquis 5 MG Oral Tablet (Apixaban) TAKE 1 TABLET BY MOUTH IN THE MORNING AND BEFORE BEDTIME 180 Tablet 3 Carvedilol 12.5 MG Oral Tablet (Coreg) TAKE 1 AND 1/2 TABLETS BY MOUTH TWICE DAILY 270 Tablet 3 Nitroglycerin 0.4 MG Sublingual Tablet Sublingual (Nitrostat) Place 1 Tablet under the tongue every5 minutes as needed for Pain, Chest. Pantoprazole Sodium 40 MG Oral Tablet Delayed Release (Protonix) Take 1 Tablet by mouth in the morning. Spironolactone 25 MG Oral Tablet (Aldactone) Take 1 Tablet by mouth in the morning. Losartan Potassium 50 MG Oral Tablet (Cozaar) Take 1 Tablet by mouth in the morning. predniSONE 20 MG Oral Tablet (Deltasone) Amoxicillin-Pot Clavulanate 875-125 MG Oral Tablet (Augmentin) TAKE 1 TABLET BY MOUTH EVERY 12 HOURS FOR 4 DAYS Incruse Ellipta 62.5 MCG/ACT Inhalation Aerosol Powder Breath Activated TO GO ondansetron ODT (ZOFRAN ODT) 4 [...] taking: Reported on 07/01/2023) 85 g 1 Clotrimazole 1 % External Cream (Lotrimin) Apply topically to affected area 2 times a day. Apply toarea under breast twice daily until resolved (Patient not taking: Reported on 10/09/2023) 85 g 3 Current Facility-Administered Medications Medication Dose Route [...] Anaphylaxis Doxycycline Intolerant, GI upset Objective: BP 112/62 | Pulse 60 | Temp 36.1 C (96.9 F) (Tympanic) | Resp 20 | Ht 1.549 m (5' 1") | Wt 55.1kg (121 lb 6.4 oz) | SpO2 90% | BMI 22.94 kg/m | BSA 1.54 m Physical Exam: Repeat pulse ox was 93% on 3L nasal cannula after sitting for awhile. Note that her weight is 10 lb more than it was a year ago but but the same as she was 2 years ago CONST: She looks short of breath sitting in the chair in particular right now as she does not have oxygen in place. HEAD: normocephalic, atraumatic Eyes - PERRLA, EOM'I OROPHARYNX: clear, no swelling or erythema, moist [...] SKIN: no rash or significant lesions ASSESSMENT/PLAN: COPD, group B, by GOLD 2017 classification (HCC)- we will try to get her nebulizer via [employer]. Will fax them are DME. [facility] apparently has albuterol for the nebulizer when she gets it. She will keep her appointment with Pulmonary Medicine in April. I will see her again in mid January or early February. Complicated UTI-she is asymptomatic currently. Her last antibiotic will be tomorrow morning Hypertension-much better controlled. We just reviewed her medications particular that she no longerhas to take amlodipine but she should be taken spironolactone 25 mg daily and losartan 50 mg daily. Check-out note: Please cancel apt with me 02/10/24. Nadege before 02/05/24 or after 02/15/24 Ronald Cortes MD documented in this encounter Nursing Notes * Jaylin Jarvis LPN - 12/16/2023 11:19 AM EDT The patient has been properly identified by confirmation of name and date of . Chief Complaint Patient presents with Hospital Follow-Up Patient is here today for a hospital follow up. Patient states she has yet been able to receive a nebulizer. Patient states she has had a sore throat since being on prednisone. documented in this encounter Plan of Treatment Upcoming Encounters Date Type Department Care Team (Late st Contact Info) Description 01/13/2024 3:00 PM EDT Cardiac Studies Cardiac Studies, [facility] [address] [facility] [place] [address] 02/10/2024 4:20 PM EDT Office Visit [place] [address] [facility] [place] [phone] Ronald Cortes MD [address] [place] [address] 03/09/2024 6:20 PM EST Office Visit [place] [address] [facility] [place] [phone] Ronald Cortes MD [address] [place] [address] 05/23/2024 2:00 PM EST Office Visit Pulmonary Medicine, [facility] [address] [facility] [place] [address] Marbin Serrano MD [address] [facility] [address] 06/07/2024 8:30 AM EST Office Visit Cardiology, [facility] [address] [facility] [place] [address] Pepe Lennon DO [address] [place] [address] Scheduled Procedures Name Priority Associated Diagnoses Date/Ti [...] ASSESSMENT COMPLETED IN PAST YEAR FOR COPD 12/15/2024 12/16/2023 Albumin/Creatinine Ratio 08/15/2025 08/15/2022 Colonoscopy 06/02/2027 06/02/2017, 04/12/2007 Colorectal Cancer Screening 06/02/2027 DTap/Tdap Vaccines (3 - Td or Tdap) 09/13/2031 09/12/2021, 06/10/2010, 07/16/1999 VITAMIN D LEVEL ONCE IN A LIFETIME-USE SMARTSET# [id number] Completed 03/22/2015 Pneumococcal Vaccine: 65+ Years Completed [...] this encounter Medical Devices Implanted Type Area Integration Lead Device Identifier Shelf Expiration Date Model / Serial / Lot Chip Cancellous [facility] [id number] - [id number] 1 [place]planted:Q[place] 1 on 08/08/2013 [place] [facility] [place] - Human Left: Foot MUSCULOSKELETAL TRANSPLANT FND 07/24/2015 [id number] / [id number] / Screw Nonlock 3.5 X 24 - [id number] Implanted:Qty: 1 on 08/08/2013 [place] [facility] [place]: Foot [employer]THOHELIX [employer] REPAIRER-011-3 5-24 / / Screw Locking 3.5 X 16 - [id number] Implanted:Qty: 2 on 08/08/2013 at [facility] Left: Foot ORTHOHELIX [employer] REPAIRER-021-3 5-16 / / Plate 6 Hole Beta Mxl-0026 - [id number] Implanted:Qty: 1 on 08/08/2013 [place] [facility] [place]: Foot ORTHOHELIX [employer]NS MXL-0026 / / Screw Locking 3.5 X 20 - [id number] Implanted:Qty: 1 on 08/08/2013 [place] [facility] [place]: Foot ORTHOHELIX [employer] REPAIRER-021-3 5-20 / / Screw Nonlock 3.5 X 16 - [id number] Implanted:Qty: 1 on 08/08/2013 [place] [facility] [place]: Foot ORTHOHELIX [employer]IG[employer] REPAIRER-011-3 5-16 / / Screw Nonlock 3.5 X 18 - [id number] Implanted:Qty: 1 on 08/08/2013 [place] [facility] [place]: Foot ORTHOHELIX [employer] REPAIRER-011-3 5-18 / / Screw Nonlock 3.5 X 14 - [id number] Implanted:Qty: 1 on 08/08/2013 [place] [facility] [place]: Foot ORTHOHELIX [employer] REPAIRER-011-3 5-14 / / 4.0 X 3.0 Short Max Torque Implanted:Qty: 1 on 08/08/2013 [place] [facility] [place]: Foot ORTHOHELIX [employer] DESIGNS MSD-010-4 0-030S / / 4.0 X 32.5 Short Max Torque Implanted:Qty: 1 on 08/08/2013 [place] [facility] [place]: Foot MSD-010-4 0-325S / / 4.0 X 28 Short Max Torque Implanted:Qty: 1 on 08/08/2013 [place] [facility] [place]: Foot ORTHOHELIX [employer] DESIGNS MSD-010-4 0-028S / / 4.0 X 22 Short Max Torque Implanted:Qty: 1 on 08/08/2013 [place] [facility] [place]: Foot ORTHOHELIX SURGICAL DESIGNS MSD-010-4 0-022S / / [place] Gold 4.0 - [id number] Implanted:Qty: 1 on 08/08/2013 [place] [facility] [place] Left: Foot ORTHOHELIX SURGICAL DESIGNS CSS-500-4 0A / / Plate Lps Alpha 2 Slot - [id number] Implanted:Qty: 1 on 08/08/2013 [place] [facility] [place]: Foot ORTHOHELIX [employer]GICAL DESIGNS MXL-002-2 A / / Screw Variable 3.5 X 12mm - [id number] Implanted:Qty: 1 on 08/08/2013 [place] [facility] [place]: Foot ORTHOHELIX SURGICAL DESIGNS RAKESH-031-3 5-12 / / Screw Variable 3.5 X 18mm - [id number] Implanted:Qty: 1 on 08/08/2013 [place] [facility] [place]: Foot ORTHOHELIX SURG[employer] DESIGNS RAKESH-031-3 5-18 / / documented as of this encounter Visit Diagnoses Diagnosis Need for prophylactic vaccination and inoculation against influenza- Primary Need for vaccination for zoster Need for prophylactic vaccination and inoculation against other viral diseases COPD, group B, by GOLD 2017 classification ([facility]) Hospital discharge follow-up Other follow-up examination documented in this encounter Advance Directives * [...] Power of Attor elizabeth? No Care Teams Criminal Justice Teacher Relationship Specialty Start Date End Date Ronald Cortes MD [address] [facility] [place] [address] PCP - General 06/10/02 documented as of this encounter
[2023-12-25] MEDS ORDERED: ALBUT/IPRATROP 3MG/0.5MG NEB 3 ML VIAL NEB PRN (23:10)
[2023-12-25] MEDS ORDERED: NITROGLYCERIN SL 0.4 MG/TAB TAB SL PRN ×2 (23:10)
[2023-12-25] MEDS ORDERED: ONDANSETRON INJ 2 MG/ML 2 ML VIAL IV PRN (23:10)
[2023-12-26] MEDS: ACETAMINOPHEN 325 MG TAB PO PRN (00:01)
[2023-12-26] MEDS: traZODone HCL 50 MG TAB PO ONE (00:01)
[2023-12-26 00:22] LABS: Appearance Urine Clear (Clear); Bacteria Urine Automated None Seen (None Seen); Bilirubin Urine Negative (Negative); Blood Urine Negative (Negative); Color Urine Yellow; Epithelial Cell Urine Auto 0-2 /hpf (0-2); Glucose Urine UA Negative (Negative); Ketones Urine Negative (Negative); Leukocyte Esterase Urine 1+ (Negative); Nitrite Urine Negative (Negative); Protein Urine Negative (Negative); RBC Urine Automated >20 /hpf (0-2); Specific Gravity Urine 1.039 (1.000-1.030); Urobilinogen Urine Negative (Negative); pH Urine 5.5 (4.5-7.5)
[2023-12-26] MEDS: LEVOTHYROXINE SODIUM 25 MCG TABLET PO SCH (05:32)
[2023-12-26] MEDS: methylPREDNISolone 40 MG in SYRINGE 0 ML IV SCH (05:33)
[2023-12-26 06:15] LABS: Basophils # (auto) 0.01 K/uL (0.00-0.20); Basophils % (auto) 0.1 %; Eosinophils # (auto) 0.01 K/uL (0.00-0.50); Eosinophils % (auto) 0.1 %; Hematocrit (blood only) 36.7 % (37.0-47.0); Hemoglobin 11.7 g/dl (12.0-16.0); Immature Granulocytes # (auto) 0.06 K/uL (0.01-0.20); Immature Granulocytes % (auto) 0.6 %; Lymphocytes # (auto) 1.11 K/uL (1.20-3.40); Lymphocytes % (auto) 10.5 %; Mean Corpuscular Hemoglobin 30.2 pg (25.0-34.0); Mean Corpuscular Hgb Conc 31.9 g/dL (32.0-36.0); Mean Corpuscular Volume 94.6 fL (80.0-100.0); Mean Platelet Volume 8.5 fL (9.4-12.4); Monocytes # (auto) 0.05 K/uL (0.11-0.59); Monocytes % (auto) 0.5 %; Neutrophils # (auto) 9.34 K/uL (1.40-6.50); Neutrophils % (auto) 88.2 %; Platelet Count 336 K/uL (130-400); RDW Coefficient of Variation 14.2 % (11.5-14.5); RDW Standard Deviation 49.1 fL (36.4-46.3); Red Blood Count 3.88 M/uL (4.20-5.40); White Blood Count 10.58 K/ul (4.8-10.8)
[2023-12-26 06:32] LABS: BUN Creatinine Ratio 10.6 (10-20); Calcium 8.5 mg/dl (8.6-10.3); Creatinine Clr Calc Pharmacy 43.8 ml/min; Est GFR (African American) 78.2 ml/min; Est GFR (Non-African American) 67.5 ml/min; Magnesium 1.8 mg/dl (1.7-2.4)
[2023-12-26 06:38] LABS: Troponin I High Sensitivity 5.2 pg/ml (0-14)
[2023-12-26] MEDS: ALBUT/IPRATROP 3MG/0.5MG NEB 3 ML VIAL NEB SCH (07:23)
--- NOTE | 2023-12-26 08:28 | Hospitalist Progress Note ---
Date of Service December 26, 2023 Assessment & Plan (1) COPD with exacerbation: Plan: 73-year-old female with past medical history significant for hyperlipidemia, hypothyroidism, COPD, hypertension, CAD status post stent, history of hematuria, osteoarthritis, osteoporosis, migraine, ELIZABETH, tobacco use disorder, comes with shortness of breath. Patient recently was in the hospital on 12/05 admitted for chest pain and found to have elevated blood pressure and losartan and spironolactone were added for blood pressure control and she also was treated for complicated UTI and right pyelitis and was discharged on 12/09 and was readmitted on 12/10 for acute on chronic hypoxic and hypercapnic respiratory failure and treated with steroids and nebs and she was discharged on Incruse inhaler and steroid course and had two step and was needing 2 L oxygen on exertion and was discharged on 12/13 again comes today because of shortness of breath. COPD exacerbation Recent hospitalization for similar presentation few weeks back Presents with shortness of breath CTA chest- no PE, focal consolidation Continue on IV Solu-Medrol 40 mg 3 times daily nebs [id number] and as needed Continue home inhalers Close monitor Mild chest discomfort high sensitivity troponin negative Monitor for recurrence of chest pain History of CAD status post stents History of ST elevated NE Continue on Statin, beta-zaki and Eliquis and Plavix Patient also on spironolactone and Lasix with potassium supplement Follow-up with cardiology Epigastric tenderness Possible GERD CT abdomen/pelvis- no acute findings. iv pepcid will monitor. Hypertension On Coreg, losartan and diuretics Will monitor Paroxysmal atrial fibrillation On Coreg and Eliquis, continue Hypothyroidism On Synthyroid, continue ELIZABETH Citalopram, continue GERD On Protonix, continue Tobacco use Counseling DVT prophylaxis On Eliquis Disposition Med/telemetry Full code Time spent evaluating patient, direct bedside care, chart review, placing orders, interpretation of diagnostic studies, discussion with consultants, patient, and family members, as well as other required patient management activities is 50 minutes Please note the above document was generated using voice recognition software. It may contain grammatical, syntax or spelling errors. Any formal questions or concerns about the content, text or information contained within the body of this dictation should be directly addressed to the provider for clarification Admission and Anticipated Discharge Date Admission Date: December 25, 2023 Subjective Patient seen and examined at bedside. Comfortable; not in distress. Reports that her shortness of breath has improved Review of Systems Review of Systems: All systems reviewed & are unremarkable except as noted in Subjective Physical Exam Physical Exam: General- Not in distress Head- atraumatic Eyes- PERRL. ENT- oropharynx dry Neck- supple, no JVD. Lungs- b/l diminished breath sounds, no wheezing or crackles Heart- regular rate and rhythm; no murmur, no gallop. Abdomen- normal bowel sounds, soft, epigastric tenderness no distension Extremities- no pretibial edema, no erythema seen Neuro- alert, oriented PERRL, no facial palsy; no dysarthria; moves extremities. Results & Data Results & Data Vital Signs (Past 12 Hours) Vital Signs Temp Pulse Pulse Resp BP Pulse Ox O2 Del Method 12/26/23 08:15 36.4 C L 59 L 18 145/84 H 100 Nasal Cannula 12/26/23 07:25 58 L 16 100 Nasal Cannula 12/26/23 02:38 36.4 C L 68 18 109/76 100 Room Air 12/25/23 23:18 68 12/25/23 23:00 Nasal Cannula 12/25/23 22:45 36.6 C 74 20 163/84 H 97 Nasal Cannula O2 Flow Rate 12/26/23 08:15 2 12/26/23 07:25 2 12/26/23 02:38 12/25/23 23:18 12/25/23 23:00 2 12/25/23 22:45 2
[2023-12-26] MEDS ORDERED: methylPREDNISolone 125 MG/2 ML VIAL IV SCH (09:00)
[2023-12-26] MEDS: SPIRONOLACTONE 25 MG TAB PO SCH (09:25)
[2023-12-26] MEDS: carvediloL 6.25 MG TAB PO SCH (09:25)
[2023-12-26] MEDS: CALCIUM 600MG + VIT D 400 IU TAB PO SCH (09:25)
[2023-12-26] MEDS: PANTOprazole 40 MG TAB PO SCH (09:25)
[2023-12-26] MEDS: APIXABAN 5 MG TABLET PO SCH (09:25)
[2023-12-26] MEDS: MAGNESIUM OXIDE 400 MG TAB PO SCH (09:25)
[2023-12-26] MEDS: ATORVASTATIN 40 MG TAB PO SCH (09:25)
[2023-12-26] MEDS: OXYBUTYNIN CHLORIDE XL 5 MG TABCR PO SCH (09:25)
[2023-12-26] MEDS: FUROSEMIDE 40 MG TAB PO SCH (09:26)
[2023-12-26] MEDS: CITALOPRAM 40 MG TAB PO SCH (09:26)
[2023-12-26] MEDS: GABAPENTIN 300 MG CAP PO SCH (09:26)
[2023-12-26] MEDS: MULTIVITAMIN TAB PO SCH (09:26)
[2023-12-26] MEDS: LOSARTAN POTASSIUM 50 MG TAB PO SCH (09:26)
[2023-12-26] MEDS: FLUTICASONE/VILANTEROL 200/25MCG 14 PUFFS/INHALER INH SCH (09:26)
[2023-12-26] MEDS: UMECLIDINIUM BROMIDE 62.5MCG/BLISTER 7 PUFFS/INHALER INH SCH (09:27)
[2023-12-26] MEDS: CLOPIDOGREL BISULFATE 75 MG TAB PO SCH (09:27)
[2023-12-26] MEDS: FAMOTIDINE 20MG IV PUSH 20 MG/5 ML SYR IV SCH (09:33)
[2023-12-26] MEDS: POTASSIUM CHLORIDE 10 MEQ TABCR PO SCH (09:34)
--- NOTE | 2023-12-26 10:34 | XRay Report ---
XR chest 1V portable CLINICAL HISTORY: Chest pain, nonspecific TECHNIQUE: Single frontal radiograph of the chest was obtained. Comparison: Comparison is made to chest radiograph 12/11/2023 FINDINGS: No lines and tubes are seen. The cardiomediastinal silhouette is normal. The lungs are clear. No evid ence of pleural effusion or pneumothorax. IMPRESSION: No acute chest disease. ACT 112: Negative or not required by law. Electronically signed by: Daniel Houser M.D. 12/26/2023 10:32 AM
[2023-12-26] MEDS: traZODone HCL 50 MG TAB PO SCH (20:27)
[2023-12-27] MEDS: traMADol HCL 50 MG TABLET PO STA (04:27)
[2023-12-27 07:02] LABS: Hematocrit (blood only) 33.6 % (37.0-47.0); Hemoglobin 10.8 g/dl (12.0-16.0); Mean Corpuscular Hemoglobin 29.9 pg (25.0-34.0); Mean Corpuscular Hgb Conc 32.1 g/dL (32.0-36.0); Mean Corpuscular Volume 93.1 fL (80.0-100.0); Mean Platelet Volume 8.9 fL (9.4-12.4); Platelet Count 332 K/uL (130-400); RDW Standard Deviation 47.9 fL (36.4-46.3); Red Blood Count 3.61 M/uL (4.20-5.40); White Blood Count 15.37 K/ul (4.8-10.8)
[2023-12-27 07:19] LABS: Basophils # (auto) 0.01 K/uL (0.00-0.20); Basophils % (auto) 0.1 %; Immature Granulocytes # (auto) 0.08 K/uL (0.01-0.20); Immature Granulocytes % (auto) 0.5 %; Lymphocytes # (auto) 0.69 K/uL (1.20-3.40); Lymphocytes % (auto) 4.5 %; Monocytes # (auto) 0.34 K/uL (0.11-0.59); Monocytes % (auto) 2.2 %; Neutrophils # (auto) 14.25 K/uL (1.40-6.50); Neutrophils % (auto) 92.7 %; RBC Morphology Unremarkable
[2023-12-27 07:28] LABS: BUN Creatinine Ratio 16.7 (10-20); Calcium 9.1 mg/dl (8.6-10.3); Creatinine Clr Calc Pharmacy 38.8 ml/min; Est GFR (African American) 67.5 ml/min; Est GFR (Non-African American) 58.3 ml/min; Potassium 3.8 mmol/L (3.5-5.1)
--- NOTE | 2023-12-27 08:22 | Hospitalist Progress Note ---
Date of Service December 27, 2023 Assessment & Plan (1) COPD with exacerbation: Plan: 73-year-old female with past medical history significant for hyperlipidemia, hypothyroidism, COPD, hypertension, CAD status post stent, history of hematuria, osteoarthritis, osteoporosis, migraine, ELIZABETH, tobacco use disorder, comes with shortness of breath. Patient recently was in the hospital on 12/05 admitted for chest pain and found to have elevated blood pressure and losartan and spironolactone were added for blood pressure control and she also was treated for complicated UTI and right pyelitis and was discharged on 12/09 and was readmitted on 12/10 for acute on chronic hypoxic and hypercapnic respiratory failure and treated with steroids and nebs and she was discharged on Incruse inhaler and steroid course and had two step and was needing 2 L oxygen on exertion and was discharged on 12/13 again comes today because of shortness of breath. COPD exacerbation Recent hospitalization for similar presentation few weeks back Presents with shortness of breath CTA chest- no PE, focal consolidation Continue on IV Solu-Medrol 40 mg daily and nebs cetlqd-xut-hbeen and as needed Continue home inhalers Close monitor Patient continues to smoke; discussed smoking cessation Mild chest discomfort high sensitivity troponin negative Monitor for recurrence of chest pain History of CAD status post stents History of ST elevated [place] Continue on Statin, beta-zaki and Eliquis and Plavix Patient also on spironolactone and Lasix with potassium supplement Follow-up with cardiology Epigastric tenderness Possible GERD CT abdomen/pelvis- no acute findings. iv pepcid will monitor. Hypertension On Coreg, losartan and diuretics Will monitor Paroxysmal atrial fibrillation On Coreg and Eliquis, continue Hypothyroidism On Synthyroid, continue ELIZABETH Citalopram, continue GERD On Protonix, continue Tobacco use Counseling regarding tobacco cessation DVT prophylaxis On Eliquis Dispositionthis is patient's third hospitalization in 1 month. Patient she is still struggling with tobacco use disorder. Discussed following up with patient's PCP. Patient agreeable Full code Time spent evaluating patient, direct bedside care, chart review, placing orders, interpretation of diagnostic studies, discussion with consultants, patient, and family members, as well as other required patient management activities is 50 minutes Please note the above document was generated using voice recognition software. It may contain grammatical, syntax or spelling errors. Any formal questions or concerns about the content, text or information contained within the body of this dictation should be directly addressed to the provider for clarification Admission and Anticipated Discharge Date Admission Date: December 25, 2023 Subjective Patient seen and examined at bedside. Comfortable; not in distress. Denies fever, chills, chest pain, shortness of breath, abdominal pain or urinary symptoms. No significant overnight events Review of Systems Review of Systems: All systems reviewed & are unremarkable except as noted in Subjective Physical Exam Physical Exam: General- Not in distress Head- atraumatic Eyes- PERRL. ENT- oropharynx dry Neck- supple, no JVD. Lungs- b/l diminished breath sounds, no wheezing or crackles Heart- regular rate and rhythm; no murmur, no gallop. Abdomen- normal bowel sounds, soft, epigastric tenderness no distension Extremities- no pretibial edema, no erythema seen Neuro- alert, oriented PERRL, no facial palsy; no dysarthria; moves extremities. Results & Data Results & Data Vital Signs (Past 12 Hours) Vital Signs Temp Pulse Pulse Pulse Resp BP Pulse Ox 12/27/23 08:08 36.9 C 62 20 139/76 98 12/27/23 07:50 69 12/27/23 07:08 63 18 98 12/27/23 03:16 36.8 C 64 16 137/75 98 12/26/23 23:16 36.6 C 65 16 146/82 H 99 12/26/23 22:09 68 O2 Del Method O2 Flow Rate 12/27/23 08:08 Nasal Cannula 2 12/27/23 07:50 12/27/23 07:08 Nasal Cannula 2 12/27/23 03:16 Nasal Cannula 2 12/26/23 23:16 Nasal Cannula 2 12/26/23 22:09
--- NOTE | 2023-12-27 13:12 | Electrocardiogram Report ---
Test Reason : Blood Pressure : */* mmHG Vent. Rate : 68 BPM Atrial Rate : 68 BPM P-R Int : 154 ms QRS Dur : 68 ms QT Int : 492 ms P-R-T Axes : 73 56 20 degrees QTcB Int : 523 ms Poor data quality, interpretation may be adversely affected Normal sinus rhythm Nonspecific ST and T wave abnormality Abnormal ECG When compared with ECG of 13-Dec-2023 05:45, Sinus rhythm has replaced Atrial fibrillation Confirmed by Benny Bhatt ([id number]) on 12/27/2023 1:11:42 PM Referred By: REFERRED SELF Confirmed By: Benny Bhatt
[2023-12-28] MEDS: traMADol HCL 50 MG TABLET PO PRN (00:07)
[2023-12-28 06:17] LABS: Basophils # (auto) 0.01 K/uL (0.00-0.20); Basophils % (auto) 0.1 %; Eosinophils # (auto) 0.01 K/uL (0.00-0.50); Eosinophils % (auto) 0.1 %; Hemoglobin 10.9 g/dl (12.0-16.0); Immature Granulocytes # (auto) 0.09 K/uL (0.01-0.20); Immature Granulocytes % (auto) 0.5 %; Lymphocytes # (auto) 1.35 K/uL (1.20-3.40); Lymphocytes % (auto) 8.2 %; Mean Corpuscular Hemoglobin 29.9 pg (25.0-34.0); Mean Corpuscular Hgb Conc 32.1 g/dL (32.0-36.0); Mean Corpuscular Volume 93.2 fL (80.0-100.0); Mean Platelet Volume 8.6 fL (9.4-12.4); Monocytes # (auto) 0.85 K/uL (0.11-0.59); Monocytes % (auto) 5.2 %; Neutrophils # (auto) 14.09 K/uL (1.40-6.50); Neutrophils % (auto) 85.9 %; Platelet Count 318 K/uL (130-400); RDW Coefficient of Variation 14.4 % (11.5-14.5); RDW Standard Deviation 48.6 fL (36.4-46.3); Red Blood Count 3.65 M/uL (4.20-5.40)
[2023-12-28 06:43] LABS: BUN Creatinine Ratio 18.3 (10-20); Calcium 8.8 mg/dl (8.6-10.3); Est GFR (African American) 70.2 ml/min; Est GFR (Non-African American) 60.5 ml/min; Potassium 3.9 mmol/L (3.5-5.1)
[2023-12-28] MEDS: methylPREDNISolone 40 MG in SYRINGE 0 ML IV SCH (09:12)
[2023-12-28 11:44] VITALS: BP 155/88; PULSE 59; RESP 18; TEMP 97.5; O2SAT 92
--- NOTE | 2023-12-28 13:54 | Discharge Summary ---
Date of Service December 28, 2023 Admission HPI Per Admitting Provider 73-year-old female with past medical history significant for hyperlipidemia, hypothyroidism, COPD, hypertension, CAD status post stent, history of hematuria, osteoarthritis, osteoporosis, migraine, ELIZABETH, tobacco use disorder, comes with shortness of breath. Patient recently was in the hospital on 12/05 admitted for chest pain and found to have elevated blood pressure and losartan and spironolactone were added for blood pressure control and she also was treated for complicated UTI and right pyelitis and was discharged on 12/09 and was readmitted on 12/10 for acute on chronic hypoxic and hypercapnic respiratory f ailure and treated with steroids and nebs and she was discharged on Incruse inhaler and steroid course and had two step and was needing 2 L oxygen on exertion and was discharged on 12/13 again comes today because of shortness of breath. Patient states since last night she was feeling little short of breath which progressively got worse. Has some chest discomfort. After breathing treatment she had a cough. Had some nausea today. Has epigastric abdominal pain.. Did not micturate much because she did not eat much today. Normal bowel movements. Has moderate headache in the front of the head. Vision is okay. No earaches. Has some runny nose. No sore throat. Currently on 3 L saturating okay. Hemodynamics are okay. Able to give her history. Patient states she lives with her daughter. She ambulates with holding furniture in the house and when she go out she ambulates using a rollator walker. Past medical history. As mentioned above Past surgical history. Bone marrow aspiration. Colonoscopy. Drainage of ganglion cyst on the foot. Exploratory laparotomy. Fusion of the midfoot joint. Cardiac catheterization. Incision of colon. Appendectomy. Cholecystectomy. Repair of the left ruptured rotator cuff. Sigmoidoscopy with biopsy. Social history. . Lives with daughter. Smokes 0.5 packs a day for 70 years. No alcohol use. No drug use. Family history. Father had brain cancer. Diabetes. Mother had diabetes. Eye problems. A-fib. Hypertension. Stroke. Maternal aunt had breast cancer. Paternal grandfather had lung cancer. Maternal grandmother had CHF. Admission Exam Per Admitting Provider General- Not in distress Head- atraumatic Eyes- PERRL. ENT- oropharynx dry Neck- supple, no JVD. Lungs- b/l diminished breath sounds, no wheezing or crackles Heart- regular rate and rhythm; no murmur, no gallop. Abdomen- normal bowel sounds, soft, epigastric tenderness no distension Extremities- no pretibial edema, no erythema seen Neuro- alert, oriented PERRL, no facial palsy; no dysarthria; moves extremities. Principal Diagnosis COPD exacerbation Discharge Exam General- Not in distress Head- atraumatic Eyes- PERRL. ENT- oropharynx dry Neck- supple, no JVD. Lungs- b/l diminished breath sounds, no wheezing or crackles Heart- regular rate and rhythm; no murmur, no gallop. Abdomen- normal bowel sounds, soft, epigastric tenderness no distension Extremities- no pretibial edema, no erythema seen Neuro- alert, oriented PERRL, no facial palsy; no dysarthria; moves extremities. Discharge Data Allergies Allergy/AdvReac Type Severity Reaction Status Date / Time bee venom protein (honey bee) Allergy Severe SWELLING Verified 12/06/23 12:51 SEVERE doxycycline Allergy Intermediate Vomiting Verified 12/26/23 15:51 Consultations 12/25/23 20:44 ED Decision to Admit Stat Ordered Studies 12/25/23 19:23 CT abd pelvis IV con only Stat 12/25/23 19:50 CT angio chest PE protocol Stat Hospital Course (1) COPD with exacerbation: 73-year-old female with past medical history significant for hyperlipidemia, hypothyroidism, COPD, hypertension, CAD status post stent, history of hematuria, osteoarthritis, osteoporosis, migraine, ELIZABETH, tobacco use disorder, comes with shortness of breath. Patient underwent CTA chest which did not show any PE or focal consolidation She was admitted to medical floor; started on dobgt-lxg-kbbnh DuoNeb, IV steroids. Discussion regarding smoking cessation was done at length with the patient as she has repeated hospitalization. Patient reported improvement in her symptoms throughout the hospitalization. At discharge, she was placed on steroid. Nebulizer was prescribed along with DuoNebs. Recommended patient to have close follow-up with her primary care doctor and pulmonology. She was agreeable. Please note the above document was generated using voice recognition software. It may contain grammatical, syntax or spelling errors. Any formal questions or concerns about the content, text or information contained within the body of this dictation should be directly addressed to the provider for clarification Total Time Total Time Spent Total Time Spent (In Minutes): 34 Total Time Includes: Examination of the Patient, Discharge Planning, Medication Reconciliation, Communication With Other Providers and Other Discharge Plan Discharge Items Patient Disposition: Home - Self-Care Reason For Visit: SOB,COPD EXACBERATION Discharge Diagnosis: COPD exacerbation Activity: Resume your previous activity Non-emergency contact: Primary Care Provider Call non-emergency contact if: you have any medication questions and your symptoms worsen Follow-up/Referrals: Ronald Cortes MD [Primary Care Provider] - Diet: Regular Addtl Attending Provider Instructions: You were admitted to the hospital with COPD exacerbation. You are prescribed prednisolone 40 mg to be taken 3 more days. You are also prescribed DuoNeb solution to put in the nebulizer. Please use it when you have increasing shortness of breath every 6 hours. An appointment with your primary care doctor will be made for you in the next few weeks Pending Studies at Discharge: No Stand-Alone Forms: [employer], Smoking Cessation Medications and DC Order Prescriptions: New ipratropium-albuterol 0.5 mg-3 mg(2.5 mg base)/3 mL Solution For Nebulization 3 ml NEB QIDR PRN (Reason: shortness of breath) Qty: 90 0RF prednisone 20 mg tablet 40 mg PO DAILY 3 Days Qty: 6 0RF Continued multivitamin Tablet 1 tab PO DAILY Qty: 0 Rx Instructions: Unable to verify OTC meds at this date/time. acetaminophen [Tylenol] 325 mg Tablet 650 mg PO Q6 PRN (Reason: Pain) Qty: 0 Rx Instructions: Unable to verify OTC meds at this date/time. calcium carbonate-vitamin D3 [Calcium 600 + D(3)] 600 mg-10 mcg (400 unit) Tablet 1 tab PO DAILY Qty: 0 Rx Instructions: Unable to verify OTC meds at this date/time. omega 4-bja-wyv-fish oil [Fish Oil] 1,000 mg (120 mg-180 mg) Capsule 1 cap PO DAILY Qty: 0 Rx Instructions: Unable to verify OTC meds at this date/time. magnesium oxide 400 mg magnesium Tablet 400 mg PO BID Qty: 0 Rx Instructions: Unable to verify OTC meds at this date/time. furosemide 40 mg tablet 40 mg PO DAILY atorvastatin 40 mg tablet 40 mg PO QAM carvedilol 12.5 mg tablet 18.75 mg PO BID citalopram 40 mg tablet 40 mg PO QAM trazodone 50 mg tablet 50 - 100 mg PO HS alendronate 70 mg tablet 70 mg PO WK clopidogrel 75 mg tablet 75 mg PO QAM levothyroxine 25 mcg tablet 25 mcg PO DAILYBB oxybutynin chloride 5 mg tablet extended release 24hr 5 mg PO DAILY gabapentin 300 mg capsule 300 mg PO TID potassium chloride [Klor-Con M10] 10 mEq tablet,ER particles/crystals 10 meq PO BID fluticasone propion-salmeterol 115-21 mcg/actuation HFA aerosol inhaler 2 puff INHALATION BID Eliquis 5 mg tablet 5 mg PO BID nitroglycerin [Nitrostat] 0.4 mg Tablet, Sublingual 0.4 mg sublingual Q5M PRN (Reason: chest pain) Qty: 30 0RF pantoprazole [Protonix] 40 mg tablet,delayed release (DR/EC) 40 mg PO DAILY Qty: 30 0RF spironolactone 25 mg Tablet 25 mg PO DAILY Qty: 30 0RF losartan 50 mg tablet 50 mg PO DAILY Qty: 30 0RF Incruse Ellipta 62.5 mcg/actuation Blister With Device 1 inh inhalation DAILY Qty: 30 0RF Discharge Orders: Discharge Order (Routine); Ordered 12/28/23 Ordered By: Robert Saez/Other Patient Handouts: What Is COPD, Using Oxygen Safely, COPD Quit Smoking, Using a Nebulizer (Adult) Admission Data Admit Date/Time: 12/25/23 21:57 Attending Provider: Robert French Admit Provider: Adan Shelton Primary Care Provider: Ronald Cortes Other Providers: Adan Shelton Other Interventions: Discharge Summary Assessment (RN) Last Done: 12/28/23 11:27
--- NOTE | 2023-12-29 05:26 | Electrocardiogram Report ---
Test Reason : Blood Pressure : */* mmHG Vent. Rate : 64 BPM Atrial Rate : 64 BPM P-R Int : 160 ms QRS Dur : 82 ms QT Int : 470 ms P-R-T Axes : -9 -14 16 degrees QTcB Int : 484 ms Normal sinus rhythm Suspect L arm L leg lead reversal Abnormal ECG When compared with ECG of 25-Dec-2023 19:14, (unconfirmed) No significant change taking into account lead reversal Confirmed by Benny Bhatt ([id number]) on 12/29/2023 5:26:11 AM Referred By: REFERRED SELF Confirmed By: Benny Bhatt
== END 2023-12-28 12:56 | disposition home or self-care (01) | DRG 192 ==
LOC: ED 18:43 → INTOOBSV 21:57 → 2S 21:57

== ENCOUNTER 2024-01-30 15:18 | Inpatient (IN) ==
--- OUTSIDE RECORDS SUMMARY | 2024-01-30 15:26 | External Medical Summary | Summary of Care ---
Author Name Unknown Organization [facility] Address [address] [place] [address] Phone [phone] Care Team Providers Care Poacher Wringer Operator Name Role Phone Ronald Cortes MD Primary Care Provider [phone] Reason for Visit * Reason Onset Date Comments FYI 12/28/2023 Re: [facility] order Encounter Details Date Type Department Care Team (Late st Contact Info) Description 12/28/2023 Telephone Pulmonary Medicine, [facility] [address] [facility] [place] [address] Marbin Serrano MD [address] [facility] [place] [phone] FYI (Re: [facility] order) Allergies Active Allergy Reactions Criticality Noted Date Comments Bee Venom Anaphylaxis High 02/27/2006 Doxycycline Low 08/04/2023 Intolerant, GI upset documented as of this encounter (statuses as of 12/28/2023) Medications Medication Sig Dispensed Refills Start Date End Date Status CALCIUM + D 600-200 MG-UNIT PO TABS 1 BID 0 03/13/2006 Active MULTIVITAMINS PO TABS daily 0 03/13/2006 Active ACETAMINOPHEN 325 MG PO TABSIndications:INTE RFACED RESULT,Pneumothorax 2 Tab Oral Every 6 hours as needed for fever, pain, headache 1 Tab 0 07/27/2013 Active [place]-3 Fatty Acids (FISH OIL) 1000 MG Capsule [...] Pain, Moderate. 45 Tablet 08/07/2023 Active Tiotropium Cotton Monohydrate 18 MCG Inhalation Capsule (Spiriva HandiHaler) [...] as of this encounter (statuses as of 12/28/2023) Active Problems Problem Noted Date Diagnosed Date COPD, group B, by GOLD 2017 classification 09/20 Overview: Per COPD GOLD Classification Acquired hypothyroidism 07/19/2023 History of coronary angioplasty with insertion o f stent 07/01/2023 Coronary artery disease [place] coronary artery of [place] heart without angina pectoris 07/01/2023 Hematuria of [...] as of this encounter (statuses as of 12/28/2023) Resolved Problems Problem Noted Date Diagnosed Date [...] as of this encounter (statuses as of 12/28/2023) Immunizations Name Administration Dates Next Due Pneumococcal [...] Telephone Encounter - Lorna Silva LPN - 12/28/2023 1:21 PM EDT TH sent message informing us they cancelled the nebulizer order, as they were not successful reaching the pt (no returned call despite several messages left). Dr Serrano aware. documented in this encounter Plan of Treatment Upcoming Encounters Date Type Department Care Team (Late st Contact Info) Description 01/13/2024 3:00 PM EDT Cardiac Studies Cardiac Studies, [address] [place] [address] 02/10/2024 4:20 PM EDT Office Visit [place] [address] [place] [phone] Ronald Cortes MD [address] [place] [address] 03/09/2024 6:20 PM EST Office Visit [place] [address] [place] [address] Ronald Cortes MD [address] [place] [address] 05/23/2024 2:00 PM EST Office Visit Pulmonary Medicine, [address] [place] [address] Marbin Serrano MD [address] [place] [address] 06/07/2024 8:30 AM EST Office Visit Cardiology, [facility] [address] [place] [address] Pepe Lennon, [address] [place] [address] Scheduled Procedures Name Priority Associated Diagnoses Date/Ti me COLONOSCOPY FLEXIBLE PROXIMA L DIAGNOSTIC Recall Encounter for screening colonoscopy Health Maintenance Due Date Last Done Comments DISCUSS TOBACCO CESSATION (REFER TO SMARTSET #7861) 1950 Alpha-1 Antitrypsin 1967 Cologuard 1994 Sigmoidoscopy [...] D LEVEL ONCE IN A LIFETIME-USE SMARTSET# [id number] Completed 03/22/2015 Pneumococcal Vaccine: 65+ Years Completed [...] this encounter Medical Devices Implanted Type Area Punch Press Operator Helper Device Identifier Shelf Expiration Date Model / Serial / Lot Chip Cancellous 5cc [id number] - [id number] Implanted:Qty: 1 on 08/08/2013 at OR [facility] Tissue - Human Left: Foot MUSCULOSKELETAL TRANSPLANT FND 07/24/2015 [id number] / [id number] / Screw Nonlock 3.5 X 24 - [id number] Implanted:Qty: 1 on 08/08/2013 at OR [facility] Left: Foot [employer] SHUTTLE BUS DRIVER-011-3 5-24 / / Screw Locking 3.5 X 16 - [id number] Implanted:Qty: 2 on 08/08/2013 at OR [facility] Left: Foot [employer] SHUTTLE BUS DRIVER-021-3 5-16 / / Plate 6 Hole Beta Mxl-0026 - [id number] Implanted:Qty: 1 on 08/08/2013 at OR [facility] Left: Foot [employer] MXL-0026 / / Screw Locking 3.5 X 20 - [id number] Implanted:Qty: 1 on 08/08/2013 at OR [facility] Left: Foot [employer]THOHEL[employer] SHUTTLE BUS DRIVER-021-3 5-20 / / Screw Nonlock 3.5 X 16 - [id number] Implanted:Qty: 1 on 08/08/2013 at OR [facility] Left: Foot [employer] SHUTTLE BUS DRIVER-011-3 5-16 / / Screw Nonlock 3.5 X 18 - [id number] Implanted:Qty: 1 on 08/08/2013 at OR [facility] Left: Foot [employer] SHUTTLE BUS DRIVER-011-3 5-18 / / Screw Nonlock 3.5 X 14 - [id number] Implanted:Qty: 1 on 08/08/2013 at [facility] Left: Foot [employer]TH[employer] SHUTTLE BUS DRIVER-011-3 5-14 / / 4.0 X 3.0 Short Max Torque Implanted:Qty: 1 on 08/08/2013 at OR [facility] Left: Foot [employer] MSD-010-4 0-030S / / 4.0 X 32.5 Short Max Torque Implanted:Qty: 1 on 08/08/2013 at OR [facility] Left: Foot MSD-010-4 0-325S / / 4.0 X 28 Short Max Torque Implanted:Qty: 1 on 08/08/2013 at [facility] Left: Foot [employer] MSD-010-4 0-028S / / 4.0 X 22 Short Max Torque Implanted:Qty: 1 on 08/08/2013 at OR [facility] Left: Foot [employer]TH[employer]HEL[employer] MSD-010-4 0-022S / / [place] 4.0 - [id number] Implanted:Qty: 1 on 08/08/2013 at OR [facility] Left: Foot [employer]TH[employer] CSS-500-4 0A / / Plate Lps Alpha 2 Slot - [id number] Implanted:Qty: 1 on 08/08/2013 at OR [facility] Left: Foot [employer]HEL[employer] MXL-002-2 A / / Screw Variable 3.5 X 12mm - [id number] Implanted:Qty: 1 on 08/08/2013 at OR [facility] Left: Foot [employer]TH[employer]HEL[employer] RAKESH-031-3 5-12 / / Screw Variable 3.5 X 18mm - [id number] Implanted:Qty: 1 on 08/08/2013 at OR [facility] Left: Foot [employer]HEL[employer] RAKESH-031-3 5-18 [...] Power of Attor elizabeth? No Care Teams Poacher Wringer Operator Relationship Specialty Start Date End Date Ronald Cortes MD [address] [place] [address] PCP - General 06/10/02 documented as of this encounter
--- OUTSIDE RECORDS SUMMARY | 2024-01-30 15:26 | External Medical Summary | Summary of Care ---
Author Name Unknown Organization [facility] Address [address] [place] [address] Phone [phone] Care Team Providers Care Campus Dean Name Role Phone Ronald Cortes MD Primary Care Provider [phone] Reason for Visit * Reason Comments eRx-Medication Refill Encounter Details Date Type Department Care Team (Late st Contact Info) Description 01/09/[address] [facility] [address] [place] [address] Ronald Cortes MD [address], [place] [id number] Sleep disorder Allergies Active Allergy Reactions Criticality Noted Date Comments Bee Venom Anaphylaxis High 02/27/2006 Doxycycline Low 08/04/2023 Intolerant, GI upset documented as of this encounter (statuses as of 01/11/2024) Medications Medication Sig Dispensed Refills Start Date End Date Status CALCIUM + D 600-200 MG-UNIT PO TABS 1 BID 0 03/13/2006 Active MULTIVITAMINS PO TABS daily 0 03/13/2006 Active ACETAMINOPHEN 325 MG PO TABSIndications:INTE RFACED RESULT,Pneumothorax 2 Tab Oral Every 6 hours as needed for fever, pain, headache 1 Tab 0 07/27/2013 Active [place]-3 Fatty Acids (FISH OIL) 1000 MG Capsule [...] Pain, Moderate. 45 Tablet 08/07/2023 Active Tiotropium [place] Monohydrate 18 MCG Inhalation Capsule (Spiriva HandiHaler) [...] as of this encounter (statuses as of 01/11/2024) Active Problems Problem Noted Date Diagnosed Date COPD, group B, by GOLD 2017 classification 09/20 Overview: Per COPD GOLD Classification Acquired hypothyroidism 07/19/2023 History of coronary angioplasty with insertion o f stent 07/01/2023 Coronary artery disease invo lving [place] coronary artery of [place] heart without angina pectoris 07/01/2023 Hematuria of [...] as of this encounter (statuses as of 01/11/2024) Resolved Problems Problem Noted Date Diagnosed Date [...] as of this encounter (statuses as of 01/11/2024) Immunizations Name Administration Dates Next Due Pneumococcal [...] Date Smoking Tobacco: Every Day Cigarettes 0.6 70.4 Started: 09/02/1973 Smokeless Tobacco: Never Comments:04/14 ppd. [...] encounter Miscellaneous Notes * Telephone Encounter - Shikha Vogel [facility] - 01/11/2024 4:50 PM EDTRefused Prescriptions: Disp Refills Atorvastatin Calcium 40 MG Oral Tablet (Li*90 Tab*0 Sig: TAKE 1TABLET BY MOUTH EVERY DAY IN THE MORNINGRefused By: SHIKHA VOGEL for Refusal: Too soon traZODone HCl 50 MG Oral Tablet (Desyrel) 180 Ta*1 Sig: TAKE 1 TO 2 TABLETS BEFORE BEDTIME.Refused By: SHIKHA VOGEL for Refusal: Too soon documented in this encounter Plan of Treatment Upcoming Encounters Date Type Department Care Team (Late st Contact Info) Description 01/13/2024 3:00 PM EDT Cardiac Studies Cardiac Studies, [facility] [address] [facility] [place] [address] 02/10/2024 4:20 PM EDT Office Visit [place] [address] [place] [address] Ronald Cortes MD [address] [place] [id number] 03/09/2024 6:20 PM EST Office Visit [facility] [address] [place] [address] [facility] [address] [facility] [address] 05/23/2024 2:00 PM EST Office Visit Pulmonary Medicine, [facility] [address] [facility] [place] [address] Marbin Serrano MD [address] [place] [address] 06/07/2024 8:30 AM EST Office Visit Cardiology, [facility] [address] [facility] [place] [address] Pepe Lennon, [address] [place] [address] Scheduled Procedures Name Priority Associated Diagnoses Date/Ti me COLONOSCOPY FLEXIBLE PROXIMA L DIAGNOSTIC Recall Encounter for screening colonoscopy Health Maintenance Due Date Last Done Comments DISCUSS TOBACCO CESSATION (REFER TO SMARTSET #5827) 1950 Alpha-1 Antitrypsin 1967 Cologuard 1994 Sigmoidoscopy [...] D LEVEL ONCE IN A LIFETIME-USE SMARTSET# 21778 Completed 03/22/2015 Pneumococcal Vaccine: 65+ Years Completed [...] this encounter Medical Devices Implanted Type Area [employer] Gold Attendant Device Identifier Shelf Expiration Date Model / Serial / Lot Chip Cancellous c [id number] - [id number] Implanted:Qty: 1 on 08/08/2013 at [place] [facility] [place] Tissue - Human Left: Foot MUSCULOSKELETAL TRANSPLANT FND 07/24/2015 [id number] / [id number] / Screw Nonlock 3.5 X 24 - [id number] Implanted:Qty: 1 on 08/08/2013 at [place] [facility] [place] Left: Foot ORTHOHELIX SURGICAL DESIGNS CHILD WELFARE COUNSELOR-011-3 5-24 / / Screw Locking 3.5 X 16 - [id number] Implanted:Qty: 2 on 08/08/2013 at [place] [facility] [place] Left: Foot ORTHOHELIX SURGICAL DESIGNS CHILD WELFARE COUNSELOR-021-3 5-16 / / Plate 6 Hole Beta Mxl-0026 - [id number] Implanted:Qty: 1 on 08/08/2013 at [place] [facility] [place] Left: Foot ORTHOHELIX SURGICAL DESIGNS MXL-0026 / / Screw Locking 3.5 X 20 - [id number] Implanted:Qty: 1 on 08/08/2013 at [place] [facility] [place] Left: Foot ORTHOHELIX SURGICAL DESIGNS CHILD WELFARE COUNSELOR-021-3 5-20 / / Screw Nonlock 3.5 X 16 - [id number] Implanted:Qty: 1 on 08/08/2013 at [place] [facility] [place] Left: Foot ORTHOHELIX SURGICAL DESIGNS CHILD WELFARE COUNSELOR-011-3 5-16 / / Screw Nonlock 3.5 X 18 - [id number] Implanted:Qty: 1 on 08/08/2013 at [place] [facility] [place] Left: Foot ORTHOHELIX SURGICAL DESIGNS CHILD WELFARE COUNSELOR-011-3 5-18 / / Screw Nonlock 3.5 X 14 - [id number] Implanted:Qty: 1 on 08/08/2013 at [place] [facility] [place] Left: Foot ORTHOHELIX SURGICAL DESIGNS CHILD WELFARE COUNSELOR-011-3 5-14 / / 4.0 X 3.0 Short Max Torque Implanted:Qty: 1 on 08/08/2013 at [place] [facility] [place] Left: Foot ORTHOHELIX SURGICAL DESIGNS MSD-010-4 0-030S / / 4.0 X 32.5 Short Max Torque Implanted:Qty: 1 on 08/08/2013 at [place] [facility] [place] Left: Foot MSD-010-4 0-325S / / 4.0 X 28 Short Max Torque Implanted:Qty: 1 on 08/08/2013 at [place] [facility] [place] Left: Foot ORTHOHELIX SURGICAL DESIGNS MSD-010-4 0-028S / / 4.0 X 22 Short Max Torque Implanted:Qty: 1 on 08/08/2013 at [place] [facility] [place] Left: Foot ORTHOHELIX SURGICAL DESIGNS MSD-010-4 0-022S / / [place] Gold 4.0 - [id number] Implanted:Qty: 1 on 08/08/2013 at [place] [facility] [place] Left: Foot ORTHOHELIX SURGICAL DESIGNS CSS-500-4 0A / / Plate Lps Alpha 2 Slot - [id number] Implanted:Qty: 1 on 08/08/2013 at [place] [facility] [place] Left: Foot ORTHOHELIX SURGICAL DESIGNS MXL-002-2 A / / Screw Variable 3.5 X 12mm - [id number] Implanted:Qty: 1 on 08/08/2013 at [place] [facility] [place] Left: Foot ORTHOHELIX SURGICAL DESIGNS RAKESH-031-3 5-12 / / Screw Variable 3.5 X 18mm - [id number] Implanted:Qty: 1 on 08/08/2013 at [place] [facility] [place] Left: Foot ORTHOHELIX SURGICAL DESIGNS RAKESH-031-3 08-28 documented as of this encounter Visit Diagnoses Diagnosis Sleep disorder Sleep disturbance, unspecified documented in this encounter Advance Directives * [...] Power of Attor elizabeth? No Care Teams Campus Dean Relationship Specialty Start Date End Date Ronald Cortes MD [address] [place] [address] PCP - General 06/10/02 documented as of this encounter
--- OUTSIDE RECORDS SUMMARY | 2024-01-30 15:26 | External Medical Summary | Summary of Care ---
Author Name Unknown Organization [facility] Address [address] [place] [address] Phone [phone] Care Team Providers Care Concrete Worker Name Role Phone Ronald Cortes MD Primary Care Provider [phone] Reason for Visit * Reason Onset Date Comments Hospital Follow-Up 12/29/2023 [facility] Encounter Details Date Type Department Care Team (Late st Contact Info) Description 12/29/2023 Telephone [facility] [address] [place] [address] Ronald Cortes MD [address] [place] [address] Hospital Follow-Up ([facility]) Allergies Active Allergy Reactions Criticality Noted Date Comments Bee Venom Anaphylaxis High 02/27/2006 Doxycycline Low 08/04/2023 Intolerant, GI upset documented as of this encounter (statuses as of 12/30/2023) Medications Medication Sig Dispensed Refills Start Date End Date Status CALCIUM + D 600-200 MG-UNIT PO TABS 1 BID 0 03/13/2006 Active MULTIVITAMINS PO TABS daily 0 03/13/2006 Active ACETAMINOPHEN 325 MG PO TABSIndications:INTE RFACED RESULT,Pneumothorax 2 Tab Oral Every 6 hours as needed for fever, pain, headache 1 Tab 0 07/27/2013 Active [place]-3 Fatty Acids (FISH OIL) 1000 MG Capsule [...] Pain, Moderate. 45 Tablet 08/07/2023 Active Tiotropium [place] Monohydrate 18 MCG Inhalation Capsule (Spiriva HandiHaler) [...] as of this encounter (statuses as of 12/30/2023) Active Problems Problem Noted Date Diagnosed Date COPD, group B, by GOLD 2017 classification 09/20 Overview: Per COPD GOLD Classification Acquired hypothyroidism 07/19/2023 History of coronary angioplasty with insertion o f stent 07/01/2023 Coronary artery disease invo lving [place] coronary artery of [place] heart without angina pectoris 07/01/2023 Hematuria of [...] as of this encounter (statuses as of 12/30/2023) Resolved Problems Problem Noted Date Diagnosed Date [...] as of this encounter (statuses as of 12/30/2023) Immunizations Name Administration Dates Next Due Pneumococcal [...] encounter Miscellaneous Notes * Telephone Encounter - Mitzy Tenorio RN - 12/29/2023 11:16 AM EDT Transitions of Care Note Reason for Referral:Recent Admission Phone visit for follow up: inpatient hospitalization Admitted to: [facility], Date: 12/25/23 Discharged to: Home, Date: 12/28/23 Diagnosis driving hospitalization: SOB/COPD exacerbation MEDICATION RECONCILIATION New medication(s) filled since hospitalization- New ipratropium-albuterol 0.5 mg-3 mg(2.5 mg base)/3 mL Solution For Nebulization 3 ml NEB QIDR PRN (Reason: shortness of breath) Qty: 90 0RF prednisone 20 mg tablet 40 mg PO DAILY 3 Days Qty: 6 0RF OBJECTIVE Hospital Course (1) COPD with exacerbation: 73-year-old female with past medical history significant for hyperlipidemia, hypothyroidism, COPD, hypertension, CAD status post stent, history of hematuria, osteoarthritis, osteoporosis, migraine, ELIZABETH, tobacco use disorder, comes with shortness of breath. Patient underwent CTA chest which did not show any PE or focal consolidation She was admitted to medical floor; started on hhapm-iex-hlocx DuoNeb, IV steroids. Discussion regarding smoking cessation was done at length with the patient as she has repeated hospitalization. Patient reported improvement in her symptoms throughout the hospitalization. At discharge, she was placed on steroid. Nebulizer was prescribed along with DuoNebs. Recommended patient to have close follow-up with her primary care doctor and pulmonology. She was agreeable. Identified Care Gaps: Yes Care Gaps closed this call: Transition of Care follow-up communication Attempted Phone Call Second Attempt Call Outcome Left Voicemail/Message Mitzy Tenorio RN * Telephone Encounter - Mitzy Tenorio RN - 12/29/2023 10:58 AM EDT Transitions of Care Note Reason for Referral:Recent Admission Phone visit for follow up: inpatient hospitalization Admitted to: [facility], Date: 12/25/23 Discharged to: Home, Date: 12/28/23 Diagnosis driving hospitalization: SOB/COPD exacerbation Attempted Phone Call First Attempt Call Outcome Left Voicemail/Message Mitzy Tenorio RN documented in this encounter Plan of Treatment Upcoming Encounters Date Type Department Care Team (Late st Contact Info) Description 01/13/2024 3:00 PM EDT Cardiac Studies Cardiac Studies, [facility] [address] [facility] [place] [address] 02/10/2024 4:20 PM EDT Office Visit [place] [address] [place] [phone] Ronald Cortes MD [address] [place] [address] 03/09/2024 6:20 PM EST Office Visit [place] [address] [facility] [phone] Ronald Cortes MD [address] [place] [address] 05/23/2024 2:00 PM EST Office Visit Pulmonary Medicine, [facility] [address] [facility] [place] [address] Marbin Serrano MD [address] [place] [address] 06/07/2024 8:30 AM EST Office Visit Cardiology, [facility] [address] [facility] [place] [address] Pepe Lennon DO [address] [place] [address] Scheduled Procedures Name Priority Associated Diagnoses Date/Ti me COLONOSCOPY FLEXIBLE PROXIMA L DIAGNOSTIC Recall Encounter for screening colonoscopy Health Maintenance Due Date Last Done Comments DISCUSS TOBACCO CESSATION (REFER TO SMARTSET #8578) 1950 Alpha-1 Antitrypsin 1967 Cologuard 1994 Sigmoidoscopy 1994 Zoster Vaccines (2 of 3) 03/19/2012 01/23/2012 Adult Wellness Visit 2015 DXA Scan 12/27/2016 12/27/2014, 03/13, 03/29/2007, Additional history exists Fecal Occult Blood Test 04/23/2018 04/23/19, 12/21/2000, 10/31/1999 COVID-19 Vaccine ( season) 2023 [...] D LEVEL ONCE IN A LIFETIME-USE SMARTSET# 21578 Completed 03/22/2015 Pneumococcal Vaccine: 65+ Years Completed [...] encounter Medical Devices Implanted Type Area Assistant Purchasing Manager Device Identifier Shelf Expiration Date Model / Serial / Lot Chip Cancellous [facility] [id number] - [id number] Implanted:Qty: 1 on 08/08/2013 at [place] [facility] [place] Tissue - Human Left: Foot MUSCULOSKELETAL TRANSPLANT FND 07/24/2015 284151 / [id number] / Screw Nonlock 3.5 X 24 - [id number] Implanted:Qty: 1 on 08/08/2013 at [place] [facility] [place] Left: Foot ORTHOHELIX SURGICAL DESIGNS COMPUTER MECHANIC-011-3 5-24 / / Screw Locking 3.5 X 16 - [id number] Implanted:Qty: 2 on 08/08/2013 at [place] [facility] [place] Left: Foot ORTHOHELIX SURGICAL DESIGNS COMPUTER MECHANIC-021-3 5-16 / / Plate 6 Hole Beta Mxl-0026 - [id number] Implanted:Qty: 1 on 08/08/2013 at [place] [facility] [place] Left: Foot ORTHOHELIX SURGICAL DESIGNS MXL-0026 / / Screw Locking 3.5 X 20 - [id number] Implanted:Qty: 1 on 08/08/2013 at [place] [facility] Left: Foot ORTHOHELIX SURGICAL DESIGNS COMPUTER MECHANIC-021-3 5-20 / / Screw Nonlock 3.5 X 16 - [id number] Implanted:Qty: 1 on 08/08/2013 at [place] [facility] Left: Foot ORTHOHELIX SURGICAL DESIGNS COMPUTER MECHANIC-011-3 5-16 / / Screw Nonlock 3.5 X 18 - [id number] Implanted:Qty: 1 on 08/08/2013 at OR [facility] Left: Foot ORTHOHELIX SURGICAL DESIGNS COMPUTER MECHANIC-011-3 5-18 / / Screw Nonlock 3.5 X 14 - [id number] Implanted:Qty: 1 on 08/08/2013 at OR [facility] Left: Foot ORTHOHELIX SURGICAL DESIGNS COMPUTER MECHANIC-011-3 5-14 / / 4.0 X 3.0 Short Max Torque Implanted:Qty: 1 on 08/08/2013 at OR [facility] Left: Foot ORTHOHELIX SURGICAL DESIGNS MSD-010-4 0-030S / / 4.0 X 32.5 Short Max Torque Implanted:Qty: 1 on 08/08/2013 at OR [facility] Left: Foot MSD-010-4 0-325S / / 4.0 X 28 Short Max Torque Implanted:Qty: 1 on 08/08/2013 at OR [facility] Left: Foot ORTHOHELIX SURGICAL DESIGNS MSD-010-4 0-028S / / 4.0 X 22 Short Max Torque Implanted:Qty: 1 on 08/08/2013 at [place] [facility] Left: Foot ORTHOHELIX SURGICAL DESIGNS MSD-010-4 0-022S / / [place] Gold 4.0 - [id number] Implanted:Qty: 1 on 08/08/2013 at [place] [facility] Left: Foot ORTHOHELIX SURGICAL DESIGNS CSS-500-4 0A / / Plate Lps Alpha 2 Slot - [id number] Implanted:Qty: 1 on 08/08/2013 at [place] [facility] Left: Foot ORTHOHELIX SURGICAL DESIGNS MXL-002-2 A / / Screw Variable 3.5 X 12mm - [id number] Implanted:Qty: 1 on 08/08/2013 at [place] [facility] Left: Foot ORTHOHELIX SURGICAL DESIGNS RAKESH-031-3 5-12 / / Screw Variable 3.5 X 18mm - [id number] Implanted:Qty: 1 on 08/08/2013 at [place] [facility] Left: Foot ORTHOHELIX SURGICAL DESIGNS [...] Power of Attor elizabeth? No Care Teams Concrete Worker Relationship Specialty Start Date End Date Ronald Cortes MD [address] [place] [address] PCP - General 06/10/02 documented as of this encounter
--- NOTE | 2024-01-30 15:37 | Emergency Department Note ---
Impression & Plan GUTIERREZ (acute kidney injury), COPD (chronic obstructive pulmonary disease), Acute dehydration ED Provider Note Provider: Nick Bowman MD DATE OF SERVICE: 01/30/2024 CHIEF COMPLAINT: Short of breath, chest pain HISTORY OF PRESENT ILLNESS: Patient is a 73-year-old female past medical history including CAD, paroxysmal atrial fibrillation on Eliquis, COPD on chronic 2 L of oxygen, kidney disease, hospitalization last month presenting here via ambulance from home. Patient states she has over the last few days had some breathing issues. Mildly productive cough. No fevers reported or obvious sick contacts. States she feels quite dry has not been eating very well. Reports this afternoon had onset of mid to left upper chest discomfort. This lasted about half an hour and is minimal if any at all present now. Patient did receive aspirin for EMS. Noted be hypotensive for EMS and they difficulty getting a blood pressure. Received 800 mL of normal saline IV and 1 push dose of epinephrine prior to arrival. Patient denies any syncope or trauma but does report she is felt faint today. Denies abdominal pain. No severe leg swelling reported. Patient with some slight headache at this time. Daughter later arrives and states they were going to go out & the patient was on the porch and got lightheaded near syncopal and she uses to her chair without using to pass out. Patient did not lose conscious or fall. PAST MEDICAL HISTORY: As noted above MEDICATIONS: Reviewed home medication [facility] SOCIAL HISTORY: Smoker PHYSICAL EXAM: GENERAL: alert and oriented in no acute distress on stretcher but fatigued in appearance Head: normocephalic and atraumatic EYES: No injection, discharge or icterus. PERRL, EOMI. NECK: Trachea midline. Supple. ENT: Mucous membranes quite dry and tacky. LUNGS: Airway patent. No retractions. Breath sounds diminished bilaterally without significant air movement. HEART: Regular rate and rhythm. No chest wall tenderness ABDOMEN: Soft and non-tender, without guarding or rebound. SKIN: Acyanotic, warm, dry, without rashes EXTREMITIES: Without tenderness or deformity with trace bilateral pedal edema. NEUROLOGICAL: No focal deficits. No aphasia. No facial droop or slurred speech. Normal strength and tone in the extremities. Sensation to gross touch normal. EK bpm normal sinus rhythm. No PVC. No acute ST segment elevation with nonspecific T wave flattening. QTc 450. CONTINUOUS CARDIAC MONITORING: was ordered and showed a heart rate of 60s-70s bpm in normal sinus rhythm Patient's laboratory studies and imaging reviewed. Differential includes Reactive airway disease, pneumonia, pneumothorax, COPD, CHF, infections, cardiac ischemia, pulmonary embolism, musculoskeletal, gastrointestinal, as well as other pathologies. IMPRESSION/MEDICAL DECISION MAKING: Patient arousable upon arrival with somewhat tenuous blood pressures. Difficult to get a good blood pressure initially. Allow her to finish the spiked a liter of normal saline for an additional 700 cc fluid bolus in addition to 300 cc received in route. Anticoagulated and thus low suspicion for PE/DVT. Not severely hypoxic on home O2. Significant history of COPD and on chronic 2 L of oxygen. Will give a dose of steroids and a small DuoNeb to see if there is any respiratory component. Had some transient chest pain earlier but minimal to none now. Received aspirin enroute. No evidence of STEMI on EKG no significant arrhythmia appreciable. Will continue to monitor blood pressure closely and will use norepinephrine as needed for MAP of 60 or greater. Blood here with a very slight leukocytosis 12.7 but actually improved from previous. Stable mild anemia 11.5. No severe electrolyte abnormalities with what appears to be a new GUTIERREZ creatinine of 1.88. Again giving some IV fluid as she does appear somewhat dehydrated. Blood pressure is improving without the use of Levophed. Chest x-ray reviewed and interpreted by myself without evidence of significant pulmonary edema, pleural effusion, pneumonia or pneumothorax. Will not encephalopathic VBG is 7.2 with a CO2 of 85. Patient was agreeable for some BiPAP to help with hypercarbia. Negative respiratory viral panel. Procalcitonin is NOT elevated will avoid broad-spectrum antibiotics at this juncture. Will give a dose of azithromycin for atypical coverage with her underlying COPD. Patient agreeable for admission and hospitalist contacted. Norepinephrine was not utilized. DIAGNOSIS: GUTIERREZ, dehydration, COPD DISPOSITION: Hospitalist will evaluate Patient was agreeable with this plan. Critical Care I have personally spent 35 minutes of critical care time in the direct management of this patient. This includes bedside care, interpretation of diagnostic studies, and testing, discussion with consultants, patient, and family members, and other required patient management activities. These 35 minutes is in excess of all separately billable procedures. Past Med/Surg History Problem List (Updated 01/30/24 @ 16:27 by Nick Bowman M.D.) Acute dehydration (Acute) COPD (chronic obstructive pulmonary disease) (Acute) GUTIERREZ (acute kidney injury) (Acute) COPD (chronic obstructive pulmonary disease) (Acute) Acute and chronic postprocedural respiratory failure (Acute) COPD with exacerbation Elevated troponin level (Acute) Acute on chronic respiratory failure with hypoxia and hypercapnia (Acute) COPD (chronic obstructive pulmonary disease) (Acute) Dyslipidemia, goal LDL below 70 PAF (paroxysmal atrial fibrillation) Uncontrolled hypertension ASCVD (arteriosclerotic cardiovascular disease) Chest pain at rest Thickened endometrium Elevated brain natriuretic peptide (BNP) level (Acute) Nausea & vomiting (Acute) Chest pain (Acute) Asthma exacerbation (Acute) Gastroenteritis (Acute) Fall in home (Acute) CHI (closed head injury) (Acute) Scalp laceration (Acute) Facial laceration (Acute) Heart disease HTN (hypertension) Kidney disease Bronchitis Fall in home (Acute) Hyponatremia (Acute) Hypokalemia (Acute) Abdominal pain Diarrhea Vomiting Medical History Macular degeneration Asthma Tobacco use disorder Coronary atherosclerosis of [place] coronary vessel Benign hypertension Atrial fibrillation Diabetes Surgical History H/O heart surgery History of cholecystectomy Hx of tubal ligation Social History Smoking Status: Current every day smoker Tobacco Type: Cigarettes Cigarettes Per Day: 0-5 cigs; Second Hand Exposure: No; Do You Dip or Chew Tobacco: No; Hx Alcohol Use: No Hx Substance Use: No Preferred Language: Mexican Communication Ability: Effective Director Of Psychology Required: No Beliefs That Will Affect Care: None Current Living Situation: Family Current Living Situation Comment: with daughter Feels Safe at Home: Yes Assistive Devices: Nebulizer, Oxygen - Continuous and Walker Allergies Allergies Allergy/AdvReac Type Severity Reaction Status Date / Time bee venom protein (honey bee) Allergy Severe SWELLING Verified 01/30/24 16:12 SEVERE doxycycline Allergy Intermediate Vomiting Verified 01/30/24 16:12 Home Meds Home Medications Medication Instructions Recorded Confirmed multivitamin 1 tab PO DAILY #0 tabs 02/07/14 01/30/24 calcium 600 mg (as 1 tab PO QAM ##0 01/10/18 10/19/24 carbonate)-vitamin D3 10 mcg (400 unit) tablet (Calcium 600 + D(3)) omega [id number]-fish oil 1,000 mg 1 cap PO DAILY #0 caps 04/22/17 01/30/24 (120 mg-180 mg) capsule (Fish Oil) magnesium oxide 400 mg PO BID #0 tabs 06/01/17 01/30/24 alendronate 70 mg tablet 70 mg PO WK 12/06/23 01/30/24 apixaban 5 mg tablet (Eliquis) 5 mg PO BID 12/06/23 01/30/24 atorvastatin 40 mg tablet 40 mg PO QAM 12/06/23 01/30/24 carvedilol 12.5 mg tablet 18.75 mg PO BID 12/06/23 01/30/24 citalopram 40 mg tablet 40 mg PO QAM 12/06/23 01/30/24 clopidogrel 75 mg tablet 75 mg PO QAM 12/06/23 01/30/24 fluticasone propionate 115 2 puff inhalation [facility] 12/06/23 01/30/24 mcg-salmeterol 21 mcg/actuation HFA inhaler furosemide 40 mg tablet 40 mg PO QAM 12/06/23 01/30/24 gabapentin 300 mg capsule 300 mg PO TID 12/06/23 01/30/24 levothyroxine 25 mcg tablet 25 mcg PO DAILYBB 12/06/23 01/30/24 oxybutynin chloride 5 mg 5 mg PO QAM 12/06/23 01/30/24 tablet,extended release 24 hr potassium chloride 10 mEq 10 meq PO AMHS 12/06/23 01/30/24 tablet,extended release(part/cryst) (Klor-Con M) trazodone 50 mg tablet 100 mg PO HS 12/06/23 01/30/24 albuterol sulfate 90 mcg/actuation 2 puff inhalation Q4 PRN WHEEZING 01/30/24 01/30/24 aerosol inhaler OR COUGH amiodarone 200 mg tablet 200 mg PO QAM 01/30/24 01/30/24 losartan 50 mg tablet 50 mg PO QAM 01/30/24 01/30/24 pantoprazole 40 mg tablet,delayed 40 mg PO QAM 01/30/24 01/30/24 release (Protonix) spironolactone 25 mg tablet 25 mg PO QAM 01/30/24 01/30/24 Previous Rx's Medication Instructions Recorded nitroglycerin 0.4 mg sublingual 0.4 mg sublingual Q5M PRN chest 12/09/23 tablet (Nitrostat) pain #30 tabs umeclidinium 62.5 mcg/actuation 1 inh inhalation DAILY #30 ea 12/14/23 blister powder for inhalation (Incruse Ellipta) ipratropium 0.5 mg-albuterol 3 mg 3 ml NEB QIDR PRN shortness of 12/28/23 (2.5 mg base)/3 mL nebulization breath #90 mL soln Results & Data (ED) Vital Signs Vital Signs - 24 hr 01/30/24 15:28 01/30/24 15:28 01/30/24 15:31 Temperature 36.9 C Temperature Source Oral Pulse Rate 66 70 Pulse Rate [Right Apical] Pulse Rate from SpO2 Sensor Pulse Rhythm Respiratory Rate 22 Respiratory Effort / Characteristics SOB on Exertion Respiratory Depth Shallow Respiratory Pattern Blood Pressure 92/60 L 74/50 L Blood Pressure Mean 70 52 Pulse Oximetry 100 Oxygen Delivery Method Nasal Cannula Oxygen Flow Rate 2 Fraction of Inspired Oxygen Sepsis Recent Fever Within 48 Hours No Sepsis New/Unexplained Change in Mental Status No Sepsis Action Taken by Nursing No Action Required 01/30/24 15:33 01/30/24 15:36 01/30/24 15:36 Temperature Temperature Source Pulse Rate 67 65 Pulse Rate [Right Apical] Pulse Rate from SpO2 Sensor 66 65 Pulse Rhythm Respiratory Rate 19 23 Respiratory Effort / Characteristics Respiratory Depth Respiratory Pattern Blood Pressure Blood Pressure Mean Pulse Oximetry 100 100 100 Oxygen Delivery Method Nasal Cannula Oxygen Flow Rate 2 Fraction of Inspired Oxygen Sepsis Recent Fever Within 48 Hours Sepsis New/Unexplained Change in Mental Status Sepsis Action Taken by Nursing 01/30/24 15:38 01/30/24 15:45 01/30/24 15:51 Temperature Temperature Source Pulse Rate Pulse Rate [Right Apical] Pulse Rate from SpO2 Sensor Pulse Rhythm Respiratory Rate Respiratory Effort / Characteristics Respiratory Depth Respiratory Pattern Blood Pressure 81/55 L 96/57 L 114/60 Blood Pressure Mean 63 62 72 Pulse Oximetry Oxygen Delivery Method Oxygen Flow Rate Fraction of Inspired Oxygen Sepsis Recent Fever Within 48 Hours Sepsis New/Unexplained Change in Mental Status Sepsis Action Taken by Nursing 01/30/24 16:00 01/30/24 16:15 01/30/24 16:16 Temperature Temperature Source Pulse Rate 65 Pulse Rate [Right Apical] Pulse Rate from SpO2 Sensor 65 Pulse Rhythm Respiratory Rate 24 Respiratory Effort / Characteristics Respiratory Depth Respiratory Pattern Blood Pressure 103/66 93/60 L Blood Pressure Mean 70 64 Pulse Oximetry 93 Oxygen Delivery Method Oxygen Flow Rate Fraction of Inspired Oxygen Sepsis Recent Fever Within 48 Hours Sepsis New/Unexplained Change in Mental Status Sepsis Action Taken by Nursing 01/30/24 16:21 01/30/24 16:27 01/30/24 16:30 Temperature Temperature Source Pulse Rate 78 63 Pulse Rate [Right Apical] Pulse Rate from SpO2 Sensor 64 63 Pulse Rhythm Respiratory Rate 21 23 Respiratory Effort / Characteristics Respiratory Depth Respiratory Pattern Blood Pressure 106/65 Blood Pressure Mean 74 Pulse Oximetry 99 98 Oxygen Delivery Method Oxygen Flow Rate Fraction of Inspired Oxygen Sepsis Recent Fever Within 48 Hours Sepsis New/Unexplained Change in Mental Status Sepsis Action Taken by Nursing 01/30/24 16:45 01/30/24 16:46 01/30/24 17:03 Temperature Temperature Source Pulse Rate 62 63 Pulse Rate [Right Apical] Pulse Rate from SpO2 Sensor 63 61 Pulse Rhythm Respiratory Rate 14 24 Respiratory Effort / Characteristics Respiratory Depth Respiratory Pattern Blood Pressure 117/67 106/54 L Blood Pressure Mean 81 71 Pulse Oximetry 98 98 Oxygen Delivery Method BiPAP Oxygen Flow Rate Fraction of Inspired Oxygen 40 Sepsis Recent Fever Within 48 Hours Sepsis New/Unexplained Change in Mental Status Sepsis Action Taken by Nursing 01/30/24 17:16 01/30/24 17:41 01/30/24 17:41 Temperature Temperature Source Pulse Rate 62 Pulse Rate [Right Apical] 62 Pulse Rate from SpO2 Sensor Pulse Rhythm Respiratory Rate 18 16 Respiratory Effort / Characteristics Spontaneous Spontaneous Respiratory Depth Shallow Respiratory Pattern Regular Blood Pressure 81/42 L Blood Pressure Mean 57 Pulse Oximetry 100 100 Oxygen Delivery Method BiPAP Oxygen Flow Rate Fraction of Inspired Oxygen 30 30 Sepsis Recent Fever Within 48 Hours Sepsis New/Unexplained Change in Mental Status Sepsis Action Taken by Nursing 01/30/24 17:45 01/30/24 18:00 01/30/24 18:02 Temperature Temperature Source Pulse Rate 62 64 Pulse Rate [Right Apical] Pulse Rate from SpO2 Sensor 59 L Pulse Rhythm Respiratory Rate 18 16 Respiratory Effort / Characteristics Respiratory Depth Respiratory Pattern Blood Pressure 97/59 L 88/50 L Blood Pressure Mean 71 54 Pulse Oximetry 100 Oxygen Delivery Method BiPAP Oxygen Flow Rate Fraction of Inspired Oxygen 40 Sepsis Recent Fever Within 48 Hours Sepsis New/Unexplained Change in Mental Status Sepsis Action Taken by Nursing 01/30/24 18:12 01/30/24 18:21 01/30/24 18:21 Temperature Temperature Source Pulse Rate 61 Pulse Rate [Right Apical] Pulse Rate from SpO2 Sensor 62 Pulse Rhythm Respiratory Rate 13 Respiratory Effort / Characteristics Respiratory Depth Respiratory Pattern Blood Pressure 83/47 L 83/47 L Blood Pressure Mean 73 73 Pulse Oximetry 91 Oxygen Delivery Method Oxygen Flow Rate Fraction of Inspired Oxygen Sepsis Recent Fever Within 48 Hours Sepsis New/Unexplained Change in Mental Status Sepsis Action Taken by Nursing 01/30/24 18:21 01/30/24 18:25 01/30/24 18:25 Temperature Temperature Source Pulse Rate 65 Pulse Rate [Right Apical] Pulse Rate from SpO2 Sensor 62 Pulse Rhythm Respiratory Rate 17 Respiratory Effort / Characteristics Respiratory Depth Respiratory Pattern Blood Pressure 83/56 L 83/56 L Blood Pressure Mean 61 61 Pulse Oximetry 92 Oxygen Delivery Method Oxygen Flow Rate Fraction of Inspired Oxygen Sepsis Recent Fever Within 48 Hours Sepsis New/Unexplained Change in Mental Status Sepsis Action Taken by Nursing 01/30/24 18:30 01/30/24 18:31 01/30/24 18:33 Temperature Temperature Source Pulse Rate 62 60 Pulse Rate [Right Apical] Pulse Rate from SpO2 Sensor Pulse Rhythm Respiratory Rate 19 22 Respiratory Effort / Characteristics Respiratory Depth Respiratory Pattern Blood Pressure 80/43 L Blood Pressure Mean 53 Pulse Oximetry Oxygen Delivery Method Oxygen Flow Rate Fraction of Inspired Oxygen Sepsis Recent Fever Within 48 Hours Sepsis New/Unexplained Change in Mental Status Sepsis Action Taken by Nursing 01/30/24 18:35 01/30/24 18:35 01/30/24 18:39 Temperature Temperature Source Pulse Rate 63 Pulse Rate [Right Apical] Pulse Rate from SpO2 Sensor 63 Pulse Rhythm Respiratory Rate 19 Respiratory Effort / Characteristics Respiratory Depth Respiratory Pattern Blood Pressure 91/57 L 91/57 L Blood Pressure Mean 68 68 Pulse Oximetry 100 Oxygen Delivery Method Oxygen Flow Rate Fraction of Inspired Oxygen Sepsis Recent Fever Within 48 Hours Sepsis New/Unexplained Change in Mental Status Sepsis Action Taken by Nursing 01/30/24 18:40 01/30/24 18:40 01/30/24 18:42 Temperature Temperature Source Pulse Rate 61 Pulse Rate [Right Apical] Pulse Rate from SpO2 Sensor 63 Pulse Rhythm Respiratory Rate 19 Respiratory Effort / Characteristics Respiratory Depth Respiratory Pattern Blood Pressure 91/58 L 91/58 L Blood Pressure Mean 66 66 Pulse Oximetry 90 Oxygen Delivery Method Oxygen Flow Rate Fraction of Inspired Oxygen Sepsis Recent Fever Within 48 Hours Sepsis New/Unexplained Change in Mental Status Sepsis Action Taken by Nursing 01/30/24 18:45 01/30/24 18:50 01/30/24 18:50 Temperature Temperature Source Pulse Rate Pulse Rate [Right Apical] Pulse Rate from SpO2 Sensor Pulse Rhythm Respiratory Rate Respiratory Effort / Characteristics Respiratory Depth Respiratory Pattern Blood Pressure 97/48 L 104/57 L 104/57 L Blood Pressure Mean 74 72 72 Pulse Oximetry Oxygen Delivery Method Oxygen Flow Rate Fraction of Inspired Oxygen Sepsis Recent Fever Within 48 Hours Sepsis New/Unexplained Change in Mental Status Sepsis Action Taken by Nursing 01/30/24 18:55 01/30/24 18:55 01/30/24 18:57 Temperature Temperature Source Pulse Rate 63 Pulse Rate [Right Apical] Pulse Rate from SpO2 Sensor 62 Pulse Rhythm Respiratory Rate 21 Respiratory Effort / Characteristics Respiratory Depth Respiratory Pattern Blood Pressure 109/58 L 109/58 L Blood Pressure Mean 81 81 Pulse Oximetry 100 Oxygen Delivery Method Oxygen Flow Rate Fraction of Inspired Oxygen Sepsis Recent Fever Within 48 Hours Sepsis New/Unexplained Change in Mental Status Sepsis Action Taken by Nursing 01/30/24 19:00 01/30/24 19:00 01/30/24 19:00 Temperature Temperature Source Pulse Rate 60 Pulse Rate [Right Apical] Pulse Rate from SpO2 Sensor 60 Pulse Rhythm Respiratory Rate 16 Respiratory Effort / Characteristics Respiratory Depth Respiratory Pattern Blood Pressure 108/63 108/63 Blood Pressure Mean 72 72 Pulse Oximetry 100 Oxygen Delivery Method Oxygen Flow Rate Fraction of Inspired Oxygen Sepsis Recent Fever Within 48 Hours Sepsis New/Unexplained Change in Mental Status Sepsis Action Taken by Nursing 01/30/24 19:03 Temperature Temperature Source Pulse Rate 61 Pulse Rate [Right Apical] Pulse Rate from SpO2 Sensor Pulse Rhythm Regular Respiratory Rate Respiratory Effort / Characteristics Respiratory Depth Respiratory Pattern Blood Pressure Blood Pressure Mean Pulse Oximetry 100 Oxygen Delivery Method Oxygen Flow Rate Fraction of Inspired Oxygen Sepsis Recent Fever Within 48 Hours Sepsis New/Unexplained Change in Mental Status Sepsis Action Taken by Nursing Laboratory Data 01/30/24 15:29 01/30/24 15:29 Lab Results 01/30/24 01/30/24 01/30/24 Range/Units 15:29 15:35 16:19 WBC 12.74 H (4.8-10.8) K/ul RBC 3.79 L (4.20-5.40) M/uL Hgb 11.5 L (12.0-16.0) g/dl Hct 36.8 L (37.0-47.0) % MCV 97.1 (80.0-100.0) fL MCH 30.3 (25.0-34.0) pg MCHC 31.3 L (32.0-36.0) g/dL RDW Std Deviation 53.0 H (36.4-46.3) fL RDW Coeff of Chet 14.9 H (11.5-14.5) % Plt Count 334 (130-400) K/uL MPV 8.8 L (9.4-12.4) fL Immature Gran % (Auto) 0.9 % Neut % (Auto) 68.2 % Lymph % (Auto) 19.1 % [place] % (Auto) 8.3 % Eos % (Auto) 3.0 % Baso % (Auto) 0.5 % Neut # (Auto) 8.69 H (1.40-6.50) K/uL Lymph # (Auto) 2.43 (1.20-3.40) K/uL [place] # (Auto) 1.06 H (0.11-0.59) K/uL Eos # (Auto) 0.38 (0.00-0.50) K/uL Baso # (Auto) 0.06 (0.00-0.20) K/uL Immature Gran # (Auto) 0.12 (0.01-0.20) K/uL PT 12.3 H (9.0-12.0) Seconds INR 1.1 (0.9-1.1) APTT 31 (21-31) Seconds PTT Ratio 1.2 ABG pH (7.35-7.45) ABG pCO2 (35-46) mmHg ABG pO2 (80-95) mmHg ABG HCO3 (19-24) mmol/L ABG O2 Saturation (90-95) % ABG Base Excess (-9-1.8) mEq/L Donnie Test (Pos) VBG pH 7.20 L (7.36-7.41) VBG pCO2 85 H (38-50) mmHg VBG pO2 < 20 mmHg VBG HCO3 33 mmol/L VBG O2 Saturation < 60.0 % VBG Base Excess 3.0 mEq/L Oxygen Given Sodium 139 (136-145) mmol/L Potassium 3.7 (3.5-5.1) mmol/L Chloride 98 (98-107) mmol/L Carbon Dioxide 34 H (21-32) mmol/L Anion Gap 7 (3-11) BUN 20 (6-23) mg/dl Creatinine 1.88 H (0.6-1.2) mg/dl Est Cr Clr Drug Dosing 19.8 ml/min eGFR 27.72 BUN/Creatinine Ratio 10.6 (10-20) Glucose 88 (70-99(Fasting)) mg/dl Calcium 8.5 L (8.6-10.3) mg/dl Magnesium 1.9 (1.7-2.4) mg/dl Total Bilirubin 0.3 (0.2-1.0) mg/dl AST 16 (13-39) U/L ALT 11 (7-52) U/L Alkaline Phosphatase 88 (34-104) U/L Troponin I High Sens 8.5 (0-14) pg/ml B-Natriuretic Peptide 45 (0-100) pg/ml Total Protein 6.4 (6.0-8.3) gm/dl Albumin 3.4 (3.4-5.0) gm/dl Globulin 3.0 (2.5-4.0) gm/dl Albumin/Globulin Ratio 1.1 (0.9-2) Procalcitonin 0.03 (0-0.5) ng/ml Adenovirus (PCR) Not Detected (NotDetected) B. pertussis DNA (PCR) Not Detected (NotDetected) B.parapertussis DNA PCR Not Detected (NotDetected) C. pneumoniae DNA (PCR) Not Detected (NotDetected) Coronavirus OC43 (PCR) Not Detected (NotDetected) Coronavirus HKU1 (PCR) Not Detected (NotDetected) Coronavirus 229E (PCR) Not Detected (NotDetected) SARS-CoV-2 (PCR) Not Detected (NotDetected) Coronavirus NL63 (PCR) Not Detected (NotDetected) Human Metapneumovir PCR Not Detected (NotDetected) Influenza Type A (PCR) Not Detected (NotDetected) Influenza Type B (PCR) Not Detected (NotDetected) M. pneumoniae (PCR) Not Detected (NotDetected) Parainfluenza 1 (PCR) Not Detected (NotDetected) Parainfluenza 2 (PCR) Not Detected (NotDetected) Parainfluenza 3 (PCR) Not Detected (NotDetected) Parainfluenza 4 (PCR) Not Detected (NotDetected) RSV (PCR) Not Detected (NotDetected) Entero/Rhino (PCR) Not Detected (NotDetected) 01/30/24 Range/Units 18:24 WBC (4.8-10.8) K/ul RBC (4.20-5.40) M/uL Hgb (12.0-16.0) g/dl Hct (37.0-47.0) % MCV (80.0-100.0) fL MCH (25.0-34.0) pg MCHC (32.0-36.0) g/dL RDW Std Deviation (36.4-46.3) fL RDW Coeff of Chet (11.5-14.5) % Plt Count (130-400) K/uL MPV (9.4-12.4) fL Immature Gran % (Auto) % Neut % (Auto) % Lymph % (Auto) % [place] % (Auto) % Eos % (Auto) % Baso % (Auto) % Neut # (Auto) (1.40-6.50) K/uL Lymph # (Auto) (1.20-3.40) K/uL [place] # (Auto) (0.11-0.59) K/uL Eos # (Auto) (0.00-0.50) K/uL Baso # (Auto) (0.00-0.20) K/uL Immature Gran # (Auto) (0.01-0.20) K/uL PT (9.0-12.0) Seconds INR (0.9-1.1) APTT (21-31) Seconds PTT Ratio ABG pH 7.37 (7.35-7.45) ABG pCO2 53 H (35-46) mmHg ABG pO2 144 H (80-95) mmHg ABG HCO3 31 H (19-24) mmol/L ABG O2 Saturation 98.7 H (90-95) % ABG Base Excess 4.0 H (-9-1.8) mEq/L Donnie Test Pos (Pos) VBG pH (7.36-7.41) VBG pCO2 (38-50) mmHg VBG pO2 mmHg VBG HCO3 mmol/L VBG O2 Saturation % VBG Base Excess mEq/L Oxygen Given 40% Sodium (136-145) mmol/L Potassium (3.5-5.1) mmol/L Chloride (98-107) mmol/L Carbon Dioxide (21-32) mmol/L Anion Gap (3-11) BUN (6-23) mg/dl Creatinine (0.6-1.2) mg/dl Est Cr Clr Drug Dosing ml/min eGFR BUN/Creatinine Ratio (10-20) Glucose (70-99(Fasting)) mg/dl Calcium (8.6-10.3) mg/dl Magnesium (1.7-2.4) mg/dl Total Bilirubin (0.2-1.0) mg/dl AST (13-39) U/L ALT (7-52) U/L Alkaline Phosphatase (34-104) U/L Troponin I High Sens (0-14) pg/ml B-Natriuretic Peptide (0-100) pg/ml Total Protein (6.0-8.3) gm/dl Albumin (3.4-5.0) gm/dl Globulin (2.5-4.0) gm/dl Albumin/Globulin Ratio (0.9-2) Procalcitonin (0-0.5) ng/ml Adenovirus (PCR) (NotDetected) B. pertussis DNA (PCR) (NotDetected) B.parapertussis DNA PCR (NotDetected) C. pneumoniae DNA (PCR) (NotDetected) Coronavirus OC43 (PCR) (NotDetected) Coronavirus HKU1 (PCR) (NotDetected) Coronavirus 229E (PCR) (NotDetected) SARS-CoV-2 (PCR) (NotDetected) Coronavirus NL63 (PCR) (NotDetected) Human Metapneumovir PCR (NotDetected) Influenza Type A (PCR) (NotDetected) Influenza Type B (PCR) (NotDetected) M. pneumoniae (PCR) (NotDetected) Parainfluenza 1 (PCR) (NotDetected) Parainfluenza 2 (PCR) (NotDetected) Parainfluenza 3 (PCR) (NotDetected) Parainfluenza 4 (PCR) (NotDetected) RSV (PCR) (NotDetected) Entero/Rhino (PCR) (NotDetected) Administered Medications Sodium Chloride (Nss) 1,000 mls @ 60 mls/hr IV .[id number] GELACIO Stop: 02/01/24 03:49 Last Admin: 01/30/24 18:49 Dose: 60 mls/hr Documented By: Albumin Human (Albumin 25%) 25 gm in 100 mls @ 50 mls/hr IV Q8H GELACIO Stop: 02/02/24 18:29 Last Admin: 01/30/24 18:47 Dose: 50 mls/hr Documented By: Prednisone (Prednisone 20 Mg Tab) 40 mg PO DAILY GELACIO; Taper Stop: 02/05/24 18:29 Last Admin: 01/30/24 18:49 Dose: 40 mg Documented By: Discontinued Medications Albuterol (Albut/Ipratrop 3mg/0.5mg Neb 3 Ml Vial) 3 ml NEB NOW STA; Protocol Stop: 01/30/24 15:31 Last Admin: 01/30/24 17:36 Dose: 3 ml Documented By: [facility] Albuterol (Albut/Ipratrop 3mg/0.5mg Neb 3 Ml Vial) 12 ml NEB ONE ONE; Protocol Stop: 01/30/24 17:30 Last Admin: 01/30/24 17:36 Dose: 12 ml Documented By: [facility] Azithromycin (Azithromycin 250 Mg Tab) 500 mg PO NOW ONE Stop: 01/30/24 17:22 Last Admin: 01/30/24 17:35 Dose: 500 mg Documented By: Sodium Chloride (Nss) 500 mls @ 999 mls/hr IV .Q31M ONE Stop: 01/30/24 16:00 Last Infusion: 01/30/24 16:21 Dose: Infused Documented By: Admin: 01/30/24 15:39 Dose: 999 mls/hr Documented By: SERAFIN Norepinephrine Bitartrate (Levophed/D5w) 4 mg in 250 mls @ 10.2 mls/hr IV .Q24H GELACIO; Protocol Stop: 02/29/24 15:44 Last Admin: 01/30/24 18:03 Dose: Not Given Documented By: Methylprednisolone (Methylprednisolone 125 Mg/2 Ml Vial) 125 mg IV NOW STA Stop: 01/30/24 15:31 Last Admin: 01/30/24 15:41 Dose: 125 mg Documented By: SERAFIN Midodrine (Midodrine Hcl 2.5 Mg Tab) 5 mg PO ONE ONE Stop: 01/30/24 18:31 Last Admin: 01/30/24 18:49 Dose: 5 mg Documented By: Imaging Data Radiologist's Impression: Chest X-Ray 01/30/24 15:30 XR chest 1V portable CLINICAL HISTORY: Dyspnea TECHNIQUE: Single frontal radiograph of the chest was obtained. Comparison: Comparison is made to chest radiograph 12/25/2023 FINDINGS: No lines and tubes are seen. Cardiomegaly is noted. The lungs are clear. No evidence of pleural effusion or pneumothorax. IMPRESSION: No acute chest disease. ACT 112: Negative or not required by law. Electronically signed by: Daniel Houser M.D. 01/30/2024 4:02 PM Discharge Plan Visit Data Chief Complaint: Hypotension Stated Complaint: HYPOTENSIVE, SOB ED Provider: Nick Bowman Discharge Problem: GUTIERREZ (acute kidney injury), COPD (chronic obstructive pulmonary disease), Acute dehydration Patient Disposition: Being Evaluated by Hospitalist Forms Stand Alone Forms: My [facility] Prescriptions Prescriptions: No Action multivitamin Tablet 1 tab PO DAILY Qty: 0 calcium carbonate-vitamin D3 [Calcium 600 + D(3)] 600 mg-10 mcg (400 unit) Tablet 1 tab PO QAM Qty: 0 omega [id number]-ixa-fish oil [Fish Oil] 1,000 mg (120 mg-180 mg) Capsule 1 cap PO DAILY Qty: 0 magnesium oxide 400 mg magnesium Tablet 400 mg PO BID Qty: 0 furosemide 40 mg tablet 40 mg PO QAM atorvastatin 40 mg tablet 40 mg PO QAM carvedilol 12.5 mg tablet 18.75 mg PO BID citalopram 40 mg tablet 40 mg PO QAM trazodone 50 mg tablet 100 mg PO HS alendronate 70 mg tablet 70 mg PO WK Rx Instructions: MONDAYS clopidogrel 75 mg tablet 75 mg PO QAM levothyroxine 25 mcg tablet 25 mcg PO DAILYBB oxybutynin chloride 5 mg tablet extended release 24hr 5 mg PO QAM gabapentin 300 mg capsule 300 mg PO TID potassium chloride [Klor-Con M10] 10 mEq tablet,ER particles/crystals 10 meq PO AMHS fluticasone propion-salmeterol 115-21 mcg/actuation HFA aerosol inhaler 2 puff INHALATION AMHS Eliquis 5 mg tablet 5 mg PO BID nitroglycerin [Nitrostat] 0.4 mg Tablet, Sublingual 0.4 mg sublingual Q5M PRN (Reason: chest pain) Qty: 30 0RF ipratropium-albuterol 0.5 mg-3 mg(2.5 mg base)/3 mL Solution For Nebulization 3 ml NEB QIDR PRN (Reason: shortness of breath) Qty: 90 0RF amiodarone 200 mg tablet 200 mg PO QAM albuterol sulfate 90 mcg/actuation HFA aerosol inhaler 2 puff INHALATION Q4 PRN (Reason: WHEEZING OR COUGH) losartan 50 mg tablet 50 mg PO QAM pantoprazole [Protonix] 40 mg tablet,delayed release (DR/EC) 40 mg PO QAM spironolactone 25 mg tablet 25 mg PO QAM Incruse Ellipta 62.5 mcg/actuation Blister With Device 1 inh inhalation DAILY Qty: 30 0RF Referrals Referrals: Ronald Cortes MD [Primary Care Provider] -
[2024-01-30] MEDS: SODIUM CHLORIDE 0.9% 500 ML IV ONE (15:39)
[2024-01-30] MEDS: methylPREDNISolone 125 MG/2 ML VIAL IV STA (15:41)
[2024-01-30 15:56] LABS: Basophils # (auto) 0.06 K/uL (0.00-0.20); Basophils % (auto) 0.5 %; Eosinophils # (auto) 0.38 K/uL (0.00-0.50); Hematocrit (blood only) 36.8 % (37.0-47.0); Hemoglobin 11.5 g/dl (12.0-16.0); Immature Granulocytes # (auto) 0.12 K/uL (0.01-0.20); Immature Granulocytes % (auto) 0.9 %; Lymphocytes # (auto) 2.43 K/uL (1.20-3.40); Lymphocytes % (auto) 19.1 %; Mean Corpuscular Hemoglobin 30.3 pg (25.0-34.0); Mean Corpuscular Hgb Conc 31.3 g/dL (32.0-36.0); Mean Corpuscular Volume 97.1 fL (80.0-100.0); Mean Platelet Volume 8.8 fL (9.4-12.4); Monocytes # (auto) 1.06 K/uL (0.11-0.59); Monocytes % (auto) 8.3 %; Neutrophils # (auto) 8.69 K/uL (1.40-6.50); Neutrophils % (auto) 68.2 %; Platelet Count 334 K/uL (130-400); RDW Coefficient of Variation 14.9 % (11.5-14.5); Red Blood Count 3.79 M/uL (4.20-5.40); White Blood Count 12.74 K/ul (4.8-10.8)
--- NOTE | 2024-01-30 16:03 | XRay Report ---
XR chest 1V portable CLINICAL HISTORY: Dyspnea TECHNIQUE: Single frontal radiograph of the chest was obtained. Comparison: Comparison is made to chest radiograph 12/25/2023 FINDINGS: No lines and tubes are seen. Cardiomegaly is noted. The lungs are clear. No evidence of pleural effus ion or pneumothorax. IMPRESSION: No acute chest disease. ACT 112: Negative or not required by law. Electronically signed by: Daniel Houser M.D. 01/30/2024 4:02 PM
[2024-01-30 16:14] LABS: Albumin Globulin Ratio 1.1 (0.9-2); Albumin Level 3.4 gm/dl (3.4-5.0); BUN Creatinine Ratio 10.6 (10-20); Bilirubin,Total 0.3 mg/dl (0.2-1.0); Calcium 8.5 mg/dl (8.6-10.3); Creatinine Clr Calc Pharmacy 19.8 ml/min; Magnesium 1.9 mg/dl (1.7-2.4); Potassium 3.7 mmol/L (3.5-5.1); Total Protein 6.4 gm/dl (6.0-8.3)
[2024-01-30 16:21] LABS: Troponin I High Sensitivity 8.5 pg/ml (0-14)
[2024-01-30 16:37] LABS: INR 1.1 (0.9-1.1); Partial Thromboplastin Ratio 1.2; Partial Thromboplastin Time 31 Seconds (21-31); Prothrombin Time 12.3 Seconds (9.0-12.0)
[2024-01-30 16:43] LABS: HCO3 VBG 33 mmol/L; Oxygen Saturation VBG < 60.0 %; PCO2 VBG 85 mmHg (38-50); PO2 VBG < 20 mmHg
[2024-01-30 16:44] LABS: Adenovirus PCR Not Detected (NotDetected); Bordetella parapertussis PCR Not Detected (NotDetected); Bordetella pertussis PCR Not Detected (NotDetected); Chlamydia pneumoniae PCR Not Detected (NotDetected); Coronavirus 229E PCR Not Detected (NotDetected); Coronavirus CoV-2 (COVID19)PCR Not Detected (NotDetected); Coronavirus HKU1 PCR Not Detected (NotDetected); Coronavirus NL63 PCR Not Detected (NotDetected); Coronavirus OC43PCR Not Detected (NotDetected); Human Metapneumovirus PCR Not Detected (NotDetected); Influenza A PCR Not Detected (NotDetected); Influenza B PCR Not Detected (NotDetected); Mycoplasma pneumoniae PCR Not Detected (NotDetected); Parainfluenza Virus 1 PCR Not Detected (NotDetected); Parainfluenza Virus 2 PCR Not Detected (NotDetected); Parainfluenza Virus 3 PCR Not Detected (NotDetected); Parainfluenza Virus 4 PCR Not Detected (NotDetected); Respiratory Syncytial VirusPCR Not Detected (NotDetected); Rhinovirus/Enterovirus PCR Not Detected (NotDetected)
[2024-01-30] MEDS: AZITHROMYCIN 250 MG TAB PO ONE (17:35)
[2024-01-30] MEDS: ALBUT/IPRATROP 3MG/0.5MG NEB 3 ML VIAL NEB ONE (17:36)
[2024-01-30] MEDS: ALBUT/IPRATROP 3MG/0.5MG NEB 3 ML VIAL NEB STA (17:36)
[2024-01-30] MEDS ORDERED: MAGNESIUM HYDROXIDE SUSP 30 ML UDC PO PRN (18:01)
[2024-01-30] MEDS ORDERED: POLYETHYLENE (MIRALAX) 17 GM PACK PO PRN (18:01)
[2024-01-30] MEDS: Standard Conc; 4mg in 250mL IV SCH (18:03)
[2024-01-30] MEDS ORDERED: ALBUT/IPRATROP 3MG/0.5MG NEB 3 ML VIAL NEB PRN (18:30)
[2024-01-30] MEDS ORDERED: ALBUTEROL HFA 8 GM INHALER INH PRN (18:30)
[2024-01-30] MEDS ORDERED: NITROGLYCERIN SL 0.4 MG/TAB TAB SL PRN (18:30)
--- NOTE | 2024-01-30 18:31 | History & Physical Report ---
Date of Service January 30, 2024 Assessment & Plan (1) Acute dehydration: Plan Hypotension Recent diarrhea Acute kidney injury Patient presented with complaint of dizziness that persisted for about an hour prior to arrival. Patient reports diarrheal event yesterday and poor appetite for few days. Dry oral mucosa on bedside exam. Patient denies further diarrheal episodes today, admitting creatinine of 1.88, baseline creatinine around 0.9. Status post 500 mL NS in the ED. BP improved to 117/67 but after some time of my bedside exam again dropped to 88/50. Bolus 250 ml, Continue with IV fluids at 60 mL an hour, labs in a.m., avoid nephrotoxic's including Aldactone/Lasix/losartan. Hold other BP meds due to low bp. Will give iv albumin and po midodrine. if bp doesn't improve, likely transfer to icu for pressor need. ---recheck prior to leaving and singing out to front office director, BP has gotten better 108/63, pt w/ no complaints, reports feeling hungry. Get orthostatic vitals, encourage p.o. intake, stool PCR if with recurrence of diarrhea. Mild COPD exacerbation: Patient with shortness of breath for 2 to 3 days ago [employer], has rhonchi and decreased breath sounds on exam. s/p solumedrol and azithro in ED. Will continue home inhalers, will start her on tapering dose of prednisone, hypercarbia noted on VBG, patient placed on BiPAP, repeat ABG in AM. Monitor clinically. azithro for 5 days. Chest discomfort: pt complained of chest discomfort during dizziness, not present at bedside exam. trop wnl and ekg wo acute st - t changes, will trend trop, c/w tele monitoring. Other chronic medical condition: CAD status post stents, GERD, HTN, paroxysmal A-fib, hypothyroidism, ELIZABETH, tobacco use ---> continue with/resume home meds as and when able. DVT prophylaxis: Patient on Eliquis for A-fib Full code History of Present Illness Chief Complaint: shortness of breath and dizziness Primary Care Provider: Ronald Cortes MD 73-year-old lady with PMH of pAf on eliquis, HLD, hypothyroidism, COPD, hypertension, CAD status post stent, hematuria, osteoarthritis, osteoporosis, migraine, ELIZABETH, tobacco use disorder presents with complaint of shortness of breath and dizziness. Patient reports that she was having some difficulty breathing since 2 to 3 days ago [employer], has been eating very poorly, and today when she was getting up to go to the store she felt dizzy [denies fall or LOC] [a/w mild chest discomfort] which lasted for an hour, and hence presented to the ED. She utilizes 2 L oxygen at home, denies fever/sore throat/increase in her baseline cough. Patient denies chest pain or abdominal pain. Reports eating okay. Reports multiple episodes of diarrhea yesterday, denies further diarrhea episodes today. Medications reviewed with the patient at bedside in detail. Plan of care discussed with the patient at bedside in detail, she voiced understanding and was agreeable to plan of care. Full code as per my discussion with the patient. Past surgical history. Bone marrow aspiration. Colonoscopy. Drainage of ganglion cyst on the foot. Exploratory laparotomy. Fusion of the midfoot joint. Cardiac catheterization. Incision of colon. Appendectomy. Cholecystectomy. Repair of the left ruptured rotator cuff. Sigmoidoscopy with biopsy. Social history. . Lives with daughter. Smokes 0.5 packs a day for 70 years. No alcohol use. No drug use. Family history. Father had brain cancer. Diabetes. Mother had diabetes. Eye problems. A-fib. Hypertension. Stroke. Maternal aunt had breast cancer. Paternal grandfather had lung cancer. Maternal grandmother had CHF. Allergies Allergy/AdvReac Type Severity Reaction Status Date / Time bee venom protein (honey bee) Allergy Severe SWELLING Verified 01/30/24 16:12 SEVERE doxycycline Allergy Intermediate Vomiting Verified 01/30/24 16:12 Home Medications Medication Instructions Recorded Confirmed Type multivitamin 1 tab PO DAILY #0 tabs 02/07/14 01/30/24 History calcium 600 mg (as 1 tab PO QAM ##0 04/22/17 01/30/24 History carbonate)-vitamin D3 10 mcg (400 unit) tablet (Calcium 600 + D(3)) omega 9-pjm-pip-fish oil 1,000 mg 1 cap PO DAILY #0 caps 04/22/17 01/30/24 History (120 mg-180 mg) capsule (Fish Oil) magnesium oxide 400 mg PO BID #0 tabs 06/01/17 01/30/24 History alendronate 70 mg tablet 70 mg PO WK 12/06/23 01/30/24 History apixaban 5 mg tablet (Eliquis) 5 mg PO BID 12/06/23 01/30/24 History atorvastatin 40 mg tablet 40 mg PO QAM 12/06/23 01/30/24 History carvedilol 12.5 mg tablet 18.75 mg PO BID 12/06/23 01/30/24 History citalopram 40 mg tablet 40 mg PO QAM 12/06/23 01/30/24 History clopidogrel 75 mg tablet 75 mg PO QAM 12/06/23 01/30/24 History fluticasone propionate 115 2 puff inhalation AMHS 12/06/23 01/30/24 History mcg-salmeterol 21 mcg/actuation HFA inhaler furosemide 40 mg tablet 40 mg PO QAM 12/06/23 01/30/24 History gabapentin 300 mg capsule 300 mg PO TID 12/06/23 01/30/24 History levothyroxine 25 mcg tablet 25 mcg PO DAILYBB 12/06/23 01/30/24 History oxybutynin chloride 5 mg 5 mg PO QAM 12/06/23 01/30/24 History tablet,extended release 24 hr potassium chloride 10 mEq 10 meq PO AMHS 12/06/23 01/30/24 History tablet,extended release(part/cryst) (Klor-Con M) trazodone 50 mg tablet 100 mg PO HS 12/06/23 01/30/24 History nitroglycerin 0.4 mg sublingual 0.4 mg sublingual Q5M PRN chest 12/09/23 01/30/24 Rx tablet (Nitrostat) pain #30 tabs umeclidinium 62.5 mcg/actuation 1 inh inhalation DAILY #30 ea 12/14/23 01/30/24 Rx blister powder for inhalation (Incruse Ellipta) ipratropium 0.5 mg-albuterol 3 mg 3 ml NEB QIDR PRN shortness of 12/28/23 01/30/24 Rx (2.5 mg base)/3 mL nebulization breath #90 mL soln albuterol sulfate 90 mcg/actuation 2 puff inhalation Q4 PRN WHEEZING 01/30/24 01/30/24 History aerosol inhaler OR COUGH amiodarone 200 mg tablet 200 mg PO QAM 01/30/24 01/30/24 History losartan 50 mg tablet 50 mg PO QAM 01/30/24 01/30/24 History pantoprazole 40 mg tablet,delayed 40 mg PO QAM 01/30/24 01/30/24 History release (Protonix) spironolactone 25 mg tablet 25 mg PO QAM 01/30/24 01/30/24 History Past Med/Surg History Problem List (Updated 01/30/24 @ 16:27 by Nick Bowman M.D.) Acute dehydration (Acute) COPD (chronic obstructive pulmonary disease) (Acute) GUTIERREZ (acute kidney injury) (Acute) COPD (chronic obstructive pulmonary disease) (Acute) Acute and chronic postprocedural respiratory failure (Acute) COPD with exacerbation Elevated troponin level (Acute) Acute on chronic respiratory failure with hypoxia and hypercapnia (Acute) COPD (chronic obstructive pulmonary disease) (Acute) Dyslipidemia, goal LDL below 70 PAF (paroxysmal atrial fibrillation) Uncontrolled hypertension ASCVD (arteriosclerotic cardiovascular disease) Chest pain at rest Thickened endometrium Elevated brain natriuretic peptide (BNP) level (Acute) Nausea & vomiting (Acute) Chest pain (Acute) Asthma exacerbation (Acute) Gastroenteritis (Acute) Fall in home (Acute) CHI (closed head injury) (Acute) Scalp laceration (Acute) Facial laceration (Acute) Heart disease HTN (hypertension) Kidney disease Bronchitis Fall in home (Acute) Hyponatremia (Acute) Hypokalemia (Acute) Abdominal pain Diarrhea Vomiting Medical History Macular degeneration Asthma Tobacco use disorder Coronary atherosclerosis of [place] coronary vessel Benign hypertension Atrial fibrillation Diabetes Surgical History H/O heart surgery History of cholecystectomy Hx of tubal ligation Social History Smoking Status: Current every day smoker Tobacco Type: Cigarettes Cigarettes Per Day: 0-5 cigs; Second Hand Exposure: No; Do You Dip or Chew Tobacco: No; Hx Alcohol Use: No Hx Substance Use: No Preferred Language: Nauruan Communication Ability: Effective Senior Engineering Associate Required: No Beliefs That Will Affect Care: None Current Living Situation: Family Current Living Situation Comment: with daughter Feels Safe at Home: Yes Assistive Devices: Nebulizer, Oxygen - Continuous and Walker Review of Systems Review of Systems: Negative otherwise mentioned in HPI. Physical Exam Physical Exam: GENERAL: Alert and oriented x3. NAD, on BPAP. dry oral mucosa HEENT: No pallor, no icterus. Pupils equal, round and reactive to light. Oral mucosa dry. NECK: No JVD, no neck masses. HEART: S1 and S2 heard. Regular rate and rhythm. No murmur, no gallop. RESPIRATORY SYSTEM: Normal AP diameter. No accessory muscle use. b/l rhonchi, decreased breath sounds. ABDOMEN: Soft, bowel sounds present, nontender, no distention. CENTRAL NERVOUS SYSTEM: No facial droop. Speech is clear. Obeys simple commands. Moves extremities. EXTREMITIES: No edema, no erythema seen. Results & Data Results & Data Vital Signs (Past 12 Hours) Vital Signs Temp Pulse Pulse Resp BP Pulse Ox O2 Del Method 01/30/24 17:41 62 16 100 01/30/24 17:41 62 18 100 BiPAP 01/30/24 16:46 117/67 01/30/24 16:45 62 14 98 01/30/24 16:30 106/65 01/30/24 16:27 63 23 98 01/30/24 16:21 78 21 99 01/30/24 16:16 93/60 L 01/30/24 16:15 65 24 93 01/30/24 16:00 103/66 01/30/24 15:51 114/60 01/30/24 15:45 96/57 L 01/30/24 15:38 81/55 L 01/30/24 15:36 65 23 100 01/30/24 15:36 100 Nasal Cannula 01/30/24 15:33 67 19 100 01/30/24 15:31 74/50 L 01/30/24 15:28 70 01/30/24 15:28 36.9 C 66 22 92/60 L 100 Nasal Cannula O2 Flow Rate FiO2 01/30/24 17:41 30 01/30/24 17:41 30 01/30/24 16:46 01/30/24 16:45 01/30/24 16:30 01/30/24 16:27 01/30/24 16:21 01/30/24 16:16 01/30/24 16:15 01/30/24 16:00 01/30/24 15:51 01/30/24 15:45 01/30/24 15:38 01/30/24 15:36 01/30/24 15:36 2 01/30/24 15:33 01/30/24 15:31 01/30/24 15:28 01/30/24 15:28 2
[2024-01-30] MEDS: ALBUMIN 25% 25 GM/100 ML VIAL IV SCH (18:47)
[2024-01-30] MEDS: SODIUM CHLORIDE 0.9% 1,000 ML IV SCH (18:49)
[2024-01-30] MEDS: predniSONE 20 MG TAB PO SCH (18:49)
[2024-01-30] MEDS: MIDODRINE HCL 2.5 MG TAB PO ONE (18:49)
[2024-01-30 18:55] LABS: HCO3 ABG 31 mmol/L (19-24); Oxygen Saturation ABG 98.7 % (90-95); PCO2 ABG 53 mmHg (35-46); PO2 ABG 144 mmHg (80-95); pH ABG 7.37 (7.35-7.45)
[2024-01-30 18:56] LABS: Allen Test Pos (Pos)
[2024-01-30] MEDS: GABAPENTIN 300 MG CAP PO SCH (20:52)
[2024-01-30] MEDS: traZODone HCL 100 MG TAB PO SCH (20:52)
[2024-01-30] MEDS: MAGNESIUM OXIDE 400 MG TAB PO SCH (20:52)
[2024-01-30] MEDS: APIXABAN 5 MG TABLET PO SCH (20:53)
[2024-01-30 21:44] LABS: Appearance Urine Clear (Clear); Bacteria Urine Automated 4+ (None Seen); Bilirubin Urine Negative (Negative); Blood Urine Negative (Negative); Cast Urine Automated 0-2 /lpf (0-2); Color Urine Yellow; Epithelial Cell Urine Auto 0-2 /hpf (0-2); Glucose Urine UA Negative (Negative); Ketones Urine Negative (Negative); Leukocyte Esterase Urine 2+ (Negative); Nitrite Urine Positive (Negative); Protein Urine Negative (Negative); RBC Urine Automated 0-2 /hpf (0-2); Specific Gravity Urine 1.007 (1.000-1.030); Urobilinogen Urine Negative (Negative)
[2024-01-31 04:42] LABS: Base Excess ABG 6.9 mEq/L (-9-1.8); HCO3 ABG 32 mmol/L (19-24); Oxygen Saturation ABG 99.1 % (90-95); PCO2 ABG 46 mmHg (35-46); PO2 ABG 157 mmHg (80-95); pH ABG 7.45 (7.35-7.45)
[2024-01-31 04:45] LABS: Allen Test Pos (Pos)
[2024-01-31] MEDS: LEVOTHYROXINE SODIUM 25 MCG TABLET PO SCH (05:57)
[2024-01-31 06:35] LABS: Hematocrit (blood only) 25.9 % (37.0-47.0); Hemoglobin 8.1 g/dl (12.0-16.0); Mean Corpuscular Hemoglobin 30.2 pg (25.0-34.0); Mean Corpuscular Hgb Conc 31.3 g/dL (32.0-36.0); Mean Corpuscular Volume 96.6 fL (80.0-100.0); Mean Platelet Volume 9.1 fL (9.4-12.4); Platelet Count 236 K/uL (130-400); RDW Coefficient of Variation 15.2 % (11.5-14.5); RDW Standard Deviation 54.2 fL (36.4-46.3); Red Blood Count 2.68 M/uL (4.20-5.40); White Blood Count 8.16 K/ul (4.8-10.8)
[2024-01-31 07:03] LABS: BUN Creatinine Ratio 22.6 (10-20); Calcium 7.9 mg/dl (8.6-10.3); Creatinine Clr Calc Pharmacy 32.4 ml/min; Magnesium 1.9 mg/dl (1.7-2.4); Phosphorus 2.1 mg/dl (2.5-4.9); Potassium 3.4 mmol/L (3.5-5.1)
[2024-01-31 07:09] LABS: Troponin I High Sensitivity 10.4 pg/ml (0-14)
[2024-01-31] MEDS: AZITHROMYCIN 250 MG TAB PO SCH (09:44)
[2024-01-31] MEDS: CLOPIDOGREL BISULFATE 75 MG TAB PO SCH (09:45)
[2024-01-31] MEDS: PANTOprazole 40 MG TAB PO SCH (09:45)
[2024-01-31] MEDS: AMIODARONE 200 MG TAB PO SCH (09:45)
[2024-01-31] MEDS: ATORVASTATIN 40 MG TAB PO SCH (09:45)
[2024-01-31] MEDS: OXYBUTYNIN CHLORIDE XL 5 MG TABCR PO SCH (09:45)
[2024-01-31] MEDS: CITALOPRAM 40 MG TAB PO SCH (09:45)
[2024-01-31] MEDS: UMECLIDINIUM BROMIDE 62.5MCG/BLISTER 7 PUFFS/INHALER INH SCH (09:46)
[2024-01-31] MEDS: FLUTICASONE/VILANTEROL 200/25MCG 14 PUFFS/INHALER INH SCH (09:46)
[2024-01-31] MEDS: ACETAMINOPHEN 325 MG TAB PO PRN (09:47)
--- NOTE | 2024-01-31 11:57 | Hospitalist Progress Note ---
Date of Service January 31, 2024 Assessment & Plan (1) Acute dehydration: (2) Gastroenteritis: (3) E. coli UTI: (4) GUTIERREZ (acute kidney injury): (5) COPD (chronic obstructive pulmonary disease): (6) PAF (paroxysmal atrial fibrillation): Plan Patient with acute hypotension, acute kidney injury and dehydration due to diarrheal illness and urinary tract infection. Patient is significantly improved. Okay MedSurg Discontinue albumin Keflex for E. coli UTI Increase activity Anticipate possible discharge home tomorrow updated daughter via phone Admission and Anticipated Discharge Date Admission Date: January 30, 2024 Subjective Patient feeling significantly improved today. No lightheadedness or dizziness. No chest pain or shortness of breath. Reports that diarrhea has resolved/improved Physical Exam Physical Exam: Constitutional: Alert, nontoxic HEENT: Mucous membranes moist. Lungs: Clear to auscultation, decreased, no wheezes rales or rhonchi CV: S1-S2, regular Abdomen: Soft, nontender, nondistended Extremities: No significant edema Neuro: No focal deficits Psych: Cooperative, normal mood Results & Data Results & Data Vital Signs (Past 12 Hours) Vital Signs Temp Pulse Pulse Resp BP Pulse Ox O2 Del Method 01/31/24 11:48 36.8 C 81 19 110/56 L 95 Nasal Cannula 01/31/24 07:54 36.7 C 76 21 112/66 99 Nasal Cannula 01/31/24 04:42 59 L 16 99 01/31/24 03:56 36.6 C 62 17 100/64 97 BiPAP O2 Flow Rate FiO2 01/31/24 11:48 2.0 01/31/24 07:54 2.0 01/31/24 04:42 30 01/31/24 03:56 Diagnostic Findings Reviewed imaging, laboratory and diagnostic studies. Pertinent findings as below. Urine culture growing E. coli Hemoglobin 8.1, significant decrease, suspect this is dilutional, patient has been receiving albumin Potassium 3.4 Creatinine 1.15, improved
[2024-01-31] MEDS: cephALEXin 250 MG CAP PO SCH (14:41)
--- NOTE | 2024-02-01 00:07 | Communication Note ---
Date of Service: February 01, 2024 0005 Patient complained of substernal pain as if somebody is pressing on my chest. Some SOB without unusual cough symptoms. Achy headache symptoms. Belching symptoms as per RN. Denies abdominal pain/black/bloody stools/hematuria. Symptoms different from past heart attack where she did not have any chest pain pain at all as per patient. Chest pain improved by nitro administration. PPE Pleasant, episodic tachypnea, hard of hearing No chest wall tenderness, decreased breath sounds RRR Soft nontender abdomen Rectal: Lax sphincter, brown stool, FOBT negative Chest x-ray as per my interpretation atelectasis, elevated right hemidiaphragm, cardiomegaly EKG as per my interpretation : Rate 75, NSR, normal axis, nonspecific T wave abnormalities CT head: No evidence of acute intercranial pathology. Hemoglobin 6.9 from 8.1(01/30) from 11.5 (01/29) Ap Symptomatic anemia No overt bleed for now Possibly dilutional post fluid resuscitation from admission Transfuse PRBC to maintain hemoglobin of at least 8 given history CAD
[2024-02-01] MEDS: NITROGLYCERIN SL 0.4 MG/TAB TAB SL STA (00:08)
[2024-02-01] MEDS ORDERED: oxyCODONE HCL IR 5 MG TAB (IMMEDIATE RELEASE) PO PRN (00:09)
[2024-02-01] MEDS: ALUMINUM/MAGNESIUM SUSP 30 ML UDC PO PRN (00:19)
[2024-02-01] MEDS: ALBUT/IPRATROP 3MG/0.5MG NEB 3 ML VIAL NEB STA (00:53)
[2024-02-01 01:09] LABS: Albumin Globulin Ratio 2.1 (0.9-2); Albumin Level 3.9 gm/dl (3.4-5.0); BUN Creatinine Ratio 26.3 (10-20); Bilirubin,Total 0.2 mg/dl (0.2-1.0); Calcium 8.6 mg/dl (8.6-10.3); Creatinine Clr Calc Pharmacy 39.2 ml/min; Globulin 1.9 gm/dl (2.5-4.0); Hematocrit (blood only) 21.9 % (37.0-47.0); Hemoglobin 6.9 g/dl (12.0-16.0); Magnesium 2.1 mg/dl (1.7-2.4); Mean Corpuscular Hemoglobin 30.9 pg (25.0-34.0); Mean Corpuscular Hgb Conc 31.5 g/dL (32.0-36.0); Mean Corpuscular Volume 98.2 fL (80.0-100.0); Mean Platelet Volume 9.5 fL (9.4-12.4); Platelet Count 235 K/uL (130-400); Potassium 3.9 mmol/L (3.5-5.1); RDW Coefficient of Variation 15.5 % (11.5-14.5); RDW Standard Deviation 55.3 fL (36.4-46.3); Red Blood Count 2.23 M/uL (4.20-5.40); Total Protein 5.8 gm/dl (6.0-8.3)
[2024-02-01] MEDS ORDERED: SODIUM CHLORIDE 0.9% 100 ML IV PRN (01:13)
[2024-02-01] MEDS: oxyCODONE HCL IR 5 MG TAB (IMMEDIATE RELEASE) PO STA (01:13)
[2024-02-01 01:16] LABS: Troponin I High Sensitivity 8.5 pg/ml (0-14)
[2024-02-01 01:20] LABS: Basophils # (auto) 0.02 K/uL (0.00-0.20); Basophils % (auto) 0.1 %; Immature Granulocytes # (auto) 0.13 K/uL (0.01-0.20); Immature Granulocytes % (auto) 0.8 %; Lymphocytes # (auto) 0.86 K/uL (1.20-3.40); Lymphocytes % (auto) 5.4 %; Monocytes # (auto) 0.72 K/uL (0.11-0.59); Monocytes % (auto) 4.5 %; Neutrophils # (auto) 14.27 K/uL (1.40-6.50); Neutrophils % (auto) 89.2 %; Polychromasia 2+
[2024-02-01 01:41] LABS: Partial Thromboplastin Time 27 Seconds (21-31)
--- NOTE | 2024-02-01 02:58 | CT Scan Report ---
Exam(s): CT HEAD Without Contrast EXAM: CT Head Without Intravenous Contrast CLINICAL HISTORY: Reason for exam: woods, jequis. TECHNIQUE: Axial computed tomography images of the head/brain without intravenous contrast. CTDI is 48.14 mGy and DLP is 399.62 mGy-cm. Automated exposure control was utilized for the study. A dose lowering technique was utilized adhering to the principles of ALARA. COMPARISON: Prior head CT from February 07, 2014. FINDINGS: Brain: Unremarkable. No hemorrhage. Mild nonspecific white matter changes. No edema. Partially empty sella with enlarged diaphragmatic sellae. Ventricles: Mild ventriculomegaly. Bones/joints: Unremarkable. No acute fracture. Soft tissues: Unremarkable. Sinuses: Unremarkable as visualized. No acute sinusitis. Mastoid air cells: Unremarkable as visualized. No mastoid effusion. IMPRESSION: No evidence of acute intercranial pathology. Electronically signed by: Catherine Kidd MD 02/01/24 02:57 AM
--- NOTE | 2024-02-01 06:44 | XRay Report ---
XR chest 1V portable HISTORY: 73 years-old Female sob acute shortness of breath COMPARISON: 01/30/2024 TECHNIQUE: AP view of the chest FINDINGS: Cardiomediastinal and hilar silhouettes are unchanged. Coronary arterial stenting. Mild chronic inter stitial coarsening. No pneumothorax, large pleural effusion or lobar airspace consolidation. Bones ap pear grossly intact. Right humeral head surgical anchor. Prior resection of the distal right clavicle . IMPRESSION: No acute process of the chest. ACT 112: Negative or not required by law. The above report was generated using voice recognition software. It may contain grammatical, syntax o r spelling errors. Electronically signed by: Huber Cano M.D. 02/01/2024 6:43 AM
[2024-02-01] MEDS: FUROSEMIDE 40 MG/4 ML VIAL IV ONE (10:10)
--- NOTE | 2024-02-01 10:34 | Hospitalist Progress Note ---
Date of Service February 01, 2024 Assessment & Plan (1) Acute on chronic anemia: (2) Acute dehydration: (3) Gastroenteritis: (4) E. coli UTI: (5) GUTIERREZ (acute kidney injury): (6) COPD (chronic obstructive pulmonary disease): (7) PAF (paroxysmal atrial fibrillation): Plan Patient with acute on chronic anemia now with some increased shortness of breath. Suspect this still may be dilutional, appears patient may be approximately 2 L positive fluid based on admission. Patient does not have any evidence of acute blood loss. Transfusing 1 unit packed red blood cells started this morning Leukocytosis due to steroid treatment for COPD exacerbation, Monitor hemoglobin posttransfusion Anemia evaluation Activity as tolerated Diarrheal illness resolved Renal function back to baseline Updated daughter via phone Admission and Anticipated Discharge Date Admission Date: January 30, 2024 Subjective Patient reports feeling a little bit more short of breath. Denies any melanotic stools, black stools, tarry stools. Has not seen any red blood in her stool or urine. She feels as though she eats an adequate diet. Denies any lightheadedness or dizziness Physical Exam Physical Exam: Constitutional: Alert, no acute distress HEENT: Mucous membranes moist. Lungs: Decreased breath sounds, prolonged expiratory phase, no wheezes CV: S1-S2, regular Abdomen: Soft, nontender, nondistended Extremities: Trace pretibial edema Neuro: No focal deficits Psych: Cooperative, normal mood Results & Data Results & Data Vital Signs (Past 12 Hours) Vital Signs Temp Pulse Pulse Resp BP BP Pulse Ox 02/01/24 10:14 35.9 C L 70 18 97 02/01/24 09:26 36.5 C 71 18 147/75 H 98 02/01/24 08:30 02/01/24 08:26 36.5 C 67 18 181/96 H 99 02/01/24 07:56 36.5 C 67 16 170/68 H 99 02/01/24 07:56 36.5 C 67 18 170/68 H 99 02/01/24 07:41 36.2 C L 64 16 99 02/01/24 07:22 36.4 C L 88 18 169/71 H 97 02/01/24 06:00 36.4 C L 65 16 162/84 H 100 02/01/24 05:20 36.5 C 66 16 143/84 H 100 02/01/24 04:20 36.4 C L 66 16 138/83 100 02/01/24 03:20 36.4 C L 66 16 149/78 H 100 02/01/24 02:50 36.5 C 67 16 129/61 99 02/01/24 02:35 36.4 C L 66 18 121/71 100 02/01/24 02:18 36.4 C L 67 18 129/74 100 02/01/24 00:56 65 18 97 02/01/24 00:12 72 98 01/31/24 23:56 73 20 127/78 98 O2 Del Method O2 Flow Rate 02/01/24 10:14 2 02/01/24 09:26 02/01/24 08:30 Nasal Cannula 2 02/01/24 08:26 02/01/24 07:56 02/01/24 07:56 Nasal Cannula 2.0 02/01/24 07:41 2 02/01/24 07:22 02/01/24 06:00 02/01/24 05:20 3 02/01/24 04:20 3 02/01/24 03:20 3 02/01/24 02:50 2 02/01/24 02:35 2 02/01/24 02:18 2 02/01/24 00:56 Nasal Cannula 2 02/01/24 00:12 Nasal Cannula 2 01/31/24 23:56 Nasal Cannula 2 Diagnostic Findings Reviewed imaging, laboratory and diagnostic studies. Pertinent findings as below. Hemoglobin 6.9 WBCs 16.0 Personally reviewed chest x-ray, emphysematous lungs, no definitive infiltrate, no definitive edema Reviewed previous hemoglobins, baseline hemoglobin probably around 10
[2024-02-01 12:03] LABS: Thyroid Stimulating Hormone 0.12 uIu/ml (0.300-4.500)
[2024-02-01 12:09] LABS: Ferritin 13.8 ng/ml (8-388)
[2024-02-01 12:19] LABS: Hematocrit (blood only) 35.7 % (37.0-47.0); Hemoglobin 11.9 g/dl (12.0-16.0)
[2024-02-01 12:26] LABS: Folate (Folic Acid),Ser orPlas 16.01 ng/ml (>5.38)
[2024-02-01 13:07] LABS: T4 Free Thyroxine 1.18 ng/dl (0.61-1.60)
[2024-02-02 07:25] VITALS: BP 145/84
[2024-02-02 08:10] LABS: Hematocrit (blood only) 33.3 % (37.0-47.0); Hemoglobin 11.5 g/dl (12.0-16.0); Mean Corpuscular Hemoglobin 31.2 pg (25.0-34.0); Mean Corpuscular Hgb Conc 34.5 g/dL (32.0-36.0); Mean Corpuscular Volume 90.2 fL (80.0-100.0); Mean Platelet Volume 9.1 fL (9.4-12.4); Platelet Count 231 K/uL (130-400); RDW Coefficient of Variation 15.9 % (11.5-14.5); RDW Standard Deviation 52.3 fL (36.4-46.3); Red Blood Count 3.69 M/uL (4.20-5.40); White Blood Count 18.07 K/ul (4.8-10.8)
[2024-02-02 08:32] LABS: BUN Creatinine Ratio 25.5 (10-20); Creatinine Clr Calc Pharmacy 39.6 ml/min; Potassium 3.5 mmol/L (3.5-5.1)
--- NOTE | 2024-02-02 13:18 | Discharge Summary ---
Discharge Summary Date of Service February 02, 2024 Principal Dx & Hospital Course #1 = Principal Diagnosis (1) Acute on chronic anemia: (2) Acute dehydration: (3) Gastroenteritis: (4) E. coli UTI: (5) GUTIERREZ (acute kidney injury): (6) COPD (chronic obstructive pulmonary disease): (7) PAF (paroxysmal atrial fibrillation): Plan Patient presented to the emergency room with acute dehydration with evidence of hypotension and acute kidney injury. Most likely due to a gastroenteritis and diarrheal illness. She was admitted to the hospital and given aggressive fluid resuscitation as well as resuscitation with albumin. Should her symptoms rapidly repeat improved and her blood pressure improved. Her renal function returned to baseline. However she had a significant decline in her hemoglobin. She also had an increase in her WBCs due to the steroids she received for treating a possible mild exacerbation of her COPD. She was treated with azithromycin for possible COPD exacerbation. She was also treated with Keflex for an E. coli UTI. She continued on her usual home oxygen. Her hemoglobin was monitored and continued to decline. She is given a transfusion of 1 unit of packed red blood cells. She was also given one-time dose of Lasix due to some pretibial edema. With this her hemoglobin rapidly increased. Much more than expected with the packed red blood cells. This is confirming that her anemia most likely due to her volume resuscitation and the albumin that she received. On the day of discharge she was back to her baseline vital signs. We can restart some of her antihypertensive medications. Continue to hold some of her nephrotoxins. Will restart only a lower dose Lasix. Continue to hold the Aldactone. She is on her baseline oxygen. She was seen by therapies. She chose to go home with home health care. Daughter was updated at the time of discharge she will follow-up with her outpatient providers. Notes For Next Care Provider May need to titrate antihypertensive medications upwards. May need to reinstitute higher diuretics Medication Changes From Visit Losartan discontinued Lasix dose decreased Aldactone discontinued Short course of Keflex for UTI and azithromycin for COPD. Admission HPI Per Admitting Provider 73-year-old lady with PMH of pAf on eliquis, HLD, hypothyroidism, COPD, hypertension, CAD status post stent, hematuria, osteoarthritis, osteoporosis, migraine, ELIZABETH, tobacco use disorder presents with complaint of shortness of breath and dizziness. Patient reports that she was having some difficulty breathing since 2 to 3 days ago [employer]INE[employer], has been eating very poorly, and today when she was getting up to go to the store she felt dizzy [denies fall or LOC] [a/w mild chest discomfort] which lasted for an hour, and hence presented to the ED. She utilizes 2 L oxygen at home, denies fever/sore throat/increase in her baseline cough. Patient denies chest pain or abdominal pain. Reports eating okay. Reports multiple episodes of diarrhea yesterday, denies further diarrhea episodes today. Medications reviewed with the patient at bedside in detail. Plan of care discussed with the patient at bedside in detail, she voiced understanding and was agreeable to plan of care. Full code as per my discussion with the patient. Past surgical history. Bone marrow aspiration. Colonoscopy. Drainage of ganglion cyst on the foot. Exploratory laparotomy. Fusion of the midfoot joint. Cardiac catheterization. Incision of colon. Appendectomy. Cholecystectomy. Repair of the left ruptured rotator cuff. Sigmoidoscopy with biopsy. Social history. . Lives with daughter. Smokes 0.5 packs a day for 70 years. No alcohol use. No drug use. Family history. Father had brain cancer. Diabetes. Mother had diabetes. Eye problems. A-fib. Hypertension. Stroke. Maternal aunt had breast cancer. Paternal grandfather had lung cancer. Maternal grandmother had CHF. Admission Exam Per Admitting Provider See H&P Discharge Exam Constitutional: Alert, nontoxic HEENT: Mucous membranes moist. Lungs: Decreased breath sounds, prolonged expiratory phase, no wheezes CV: S1-S2, regular Abdomen: Soft, nontender, nondistended Extremities: No significant edema Neuro: No focal deficits Psych: Cooperative, normal mood Updated Medication List Medication Instructions Recorded Confirmed Type multivitamin 1 tab PO DAILY #0 tabs 02/07/14 01/30/24 History calcium 600 mg (as 1 tab PO QAM ##0 04/22/17 01/30/24 History carbonate)-vitamin D3 10 mcg (400 unit) tablet (Calcium 600 + D(3)) omega 1-ejf-rml-fish oil 1,000 mg 1 cap PO DAILY #0 caps 04/22/17 01/30/24 History (120 mg-180 mg) capsule (Fish Oil) magnesium oxide 400 mg PO BID #0 tabs 06/01/17 01/30/24 History alendronate 70 mg tablet 70 mg PO WK 08/25/24 10/19/24 History apixaban 5 mg tablet (Eliquis) 5 mg PO BID 12/06/23 01/30/24 History atorvastatin 40 mg tablet 40 mg PO QAM 12/06/23 01/30/24 History carvedilol 12.5 mg tablet 18.75 mg PO BID 12/06/23 01/30/24 History citalopram 40 mg tablet 40 mg PO QAM 12/06/23 01/30/24 History clopidogrel 75 mg tablet 75 mg PO QAM 12/06/23 01/30/24 History fluticasone propionate 115 2 puff inhalation AMHS 12/06/23 01/30/24 History mcg-salmeterol 21 mcg/actuation HFA inhaler furosemide 40 mg tablet 40 mg PO QA 12/06/23 01/30/24 History gabapentin 300 mg capsule 300 mg PO TID 12/06/23 01/30/24 History levothyroxine 25 mcg tablet 25 mcg PO DAILYBB 12/06/23 01/30/24 History oxybutynin chloride 5 mg 5 mg PO QAM 12/06/23 01/30/24 History tablet,extended release 24 hr potassium chloride 10 mEq 10 meq PO AMHS 12/06/23 01/30/24 History tablet,extended release(part/cryst) (Klor-Con M) trazodone 50 mg tablet 100 mg PO HS 12/06/23 01/30/24 History nitroglycerin 0.4 mg sublingual 0.4 mg sublingual Q5M PRN chest 12/09/23 01/30/24 Rx tablet (Nitrostat) pain #30 tabs umeclidinium 62.5 mcg/actuation 1 inh inhalation DAILY #30 ea 12/14/23 01/30/24 Rx blister powder for inhalation (Incruse Ellipta) ipratropium 0.5 mg-albuterol 3 mg 3 ml NEB QIDR PRN shortness of 12/28/23 01/30/24 Rx (2.5 mg base)/3 mL nebulization breath #90 mL soln albuterol sulfate 90 mcg/actuation 2 puff inhalation Q4 PRN WHEEZING 01/30/24 01/30/24 History aerosol inhaler OR COUGH amiodarone 200 mg tablet 200 mg PO QA 01/30/24 01/30/24 History losartan 50 mg tablet 50 mg PO QAM 01/30/24 01/30/24 History pantoprazole 40 mg tablet,delayed 40 mg PO QAM 01/30/24 01/30/24 History release (Protonix) spironolactone 25 mg tablet 25 mg PO QAM 01/30/24 01/30/24 History azithromycin 250 mg tablet 250 mg PO QAM #1 tab 02/02/24 Rx cephalexin 250 mg capsule 500 mg (2 x 250 mg) PO BID 2 days 02/02/24 Rx #8 caps Hospital Stay Data Consultations 01/30/24 17:27 ED Decision to Admit Stat Diagnostic Imagining Performed 02/01/24 00:44 CT head/brain wo con Stat Reviewed imaging, laboratory and diagnostic studies. Pertinent findings as below. Creatinine 0.94 Potassium 3.5 Hemoglobin 11.5 WBCs 18.0, increased due to steroid use Urine culture grew out pansensitive E. coli Pending Results Patient Have Any Pending Studies at Discharge: No Discharge Instructions Given to Patient (Per Discharging Provider) Continue to work with home health Home Health Attestation I certify that this patient is under my care and that I, or a physicians lab assistant working with me, had a face to-face encounter that meets the home health [id number] encounter requirements with this patient. The encounter with the patient was in whole, or in part, for the following medical condition, which is the primary reason for home health care (list medical condition): I certify that, based on my findings, the following services are medically necessary home health services: My clinical findings support the need for the above services because: Further, I certify that my clinical findings support that this patient is homebound (i.e. absences from home require considerable and taxing effort and are for medical reasons or moravian services or infrequently or of short duration when for other reasons) because: Certification for Home Health Services: Based on the above findings, I certify that this patient is confined to the home and needs intermittent senior care care, physical therapy and/or speech therapy or continues to need occupational therapy. The patient is under my care, and I have initiated the establishment of the plan of care. This patient will be followed by a physician who will periodically review the plan of care. Total Time Total Time Spent Total Time Spent (In Minutes): 35
[2024-02-02 14:00] VITALS: PULSE 62; RESP 18; TEMP 97.7; O2SAT 93
--- NOTE | 2024-02-03 06:07 | Electrocardiogram Report ---
Test Reason : Blood Pressure : */* mmHG Vent. Rate : 68 BPM Atrial Rate : 68 BPM P-R Int : 150 ms QRS Dur : 66 ms QT Int : 424 ms P-R-T Axes : 60 63 19 degrees QTcB Int : 450 ms Normal sinus rhythm Septal infarct , age undetermined Abnormal ECG When compared with ECG of 26-Dec-2023 12:08, Septal infarct is now Present Criteria for Inferior infarct are no longer Present Confirmed by Boston Salinas ([id number]) on 02/03/2024 6:07:45 AM Referred By: Confirmed By: Boston Salinas
--- NOTE | 2024-02-04 05:15 | Electrocardiogram Report ---
Test Reason : Blood Pressure : */* mmHG Vent. Rate : 73 BPM Atrial Rate : 73 BPM P-R Int : 160 ms QRS Dur : 78 ms QT Int : 350 ms P-R-T Axes : 58 47 0 degrees QTcB Int : 385 ms Poor data quality, interpretation may be adversely affected Normal sinus rhythm Nonspecific T wave abnormality Abnormal ECG When compared with ECG of 30-Jan-2024 15:25, Criteria for Septal infarct are no longer Present QT has shortened Confirmed by Boston Salinas ([id number]) on 02/04/2024 5:14:41 AM Referred By: REFERRED SELF Confirmed By: Boston Salinas
== END 2024-02-02 14:47 | disposition home health service (06) | DRG 641 ==
LOC: ED 15:18 → SUATTDRO 18:01 → 2E 18:01 → 3N 01-31 15:47

== ENCOUNTER 2024-03-02 19:36 | Inpatient (IN) ==
--- NOTE | 2024-03-02 19:47 | Emergency Department Note ---
Impression & Plan Generalized weakness, Acute dyspnea, Non-ST elevation GA (NSTEMI) ED Provider Note HISTORY OF PRESENT ILLNESS: Patient is a 73-year-old female presenting with reported shortness of breath and weakness. Patient is a poor historian and alert to self. Reportedly daughter called 911 because she has had progressively worsening weakness over the last 3 days. Patient was supplemental oxygen at baseline at 2 L nasal cannula. She reportedly has been unable to get up out of bed for the last 3 days secondary to her weakness. She reportedly has not taken her medications in 3 days. Patient denies any chest pain but does states she feels short of breath but is not known how long she has been short of breath for. ROS: as above PHYSICAL EXAM: Constitutional: Patient appears in no acute distress. HENT: Head: Normocephalic and atraumatic. Eyes: EOMI, PERRL Mouth/Throat: Mucous membranes dry. Neck: Trachea midline. Neck supple. Cardiovascular: RRR, No murmurs, rubs or gallops. Intact distal pulses. Pulmonary/Chest: No respiratory distress. Breath sounds clear and equal bilaterally. No wheezes or rales. On 2 L nasal cannula. Abdominal: Abdomen soft, no tenderness, rebound or guarding. Musculoskeletal: No edema, tenderness or deformity noted. Skin: Warm and dry. No rash, erythema, pallor or cyanosis Neurological: Alert. CN II-XII grossly intact, moving all extremities equally and fully. MDM: - Vitals signs showed hypertension, tachycardia and tachypnea. - History obtained via EMS, given patient's confusion. History as above. - Chronic conditions affecting care: COPD (on 3L NC); HTN; paroxysmal Afib; HLD - Differential diagnoses include, but are not limited to: CVA; intracranial hemorrhage; ACS; pneumonia; viral syndrome; UTI; deconditioning - Order placed for continuous cardiac monitoring. At this time, monitor showed rate of 85 bpm with normal sinus rhythm, per my interpretation. - External medical records reviewed. Discharge summary dated 02/02/2024 was reviewed. Patient was admitted for acute on chronic anemia and acute dehydration with an E. coli UTI. - EKG interpreted by myself showed normal sinus rhythm. Rate tachycardic at 117 bpm. QT 354. No acute ischemic changes. Noted to have some ST depressions in V4 through V6. - Patient appears clinically dry. She is given 1 L normal saline in the ER. She is also significantly hypertensive. She has not been taking her medications over the last few days because she has not left her bed. She is given 5 mg of IV hydralazine with minimal improvement in her blood pressure - Laboratory workup interpreted by myself showed leukocytosis (WBC 14.53) with neutrophil predominance; normal PT/INR; hypokalemia (K 3.3); elevated lactate (2.2); normal CK; normal liver function; elevated troponin (318.5); normal procalcitonin; normal TSH - Repeat troponin risen to 341.6 - CT head wo contrast negative for acute pathology - Repeat EKG obtained at 22:26 and reviewed by myself showed normal sinus rhythm. Rate 99 bpm. QT 402. No acute ischemic changes. Patient has noted to have persistent ST depressions in V4 through V6. - UA ordered but not yet obtained by nursing staff - Blood cultures ordered - Empirically given 2g IV rocephin. - Discussion was had with family service caseworker about patient's case and need for admission - Hospitalist, Dr. Shelton, consulted for admission - [facility] ASSESSMENT AND PLAN: Diagnosis: generalized weakness; acute dyspnea; NSTEMI Plan: Aadmit Past Med/Surg History Problem List (Updated 03/02/24 @ 23:00 by Mery Pearl MD) Non-ST elevation GA (NSTEMI) (Acute) Acute dyspnea (Acute) Generalized weakness (Acute) Acute on chronic anemia E. coli UTI Acute dehydration (Acute) COPD (chronic obstructive pulmonary disease) (Acute) GUTIERREZ (acute kidney injury) (Acute) COPD (chronic obstructive pulmonary disease) (Acute) Acute and chronic postprocedural respiratory failure (Acute) COPD with exacerbation Elevated troponin level (Acute) Acute on chronic respiratory failure with hypoxia and hypercapnia (Acute) COPD (chronic obstructive pulmonary disease) (Acute) Dyslipidemia, goal LDL below 70 PAF (paroxysmal atrial fibrillation) Uncontrolled hypertension ASCVD (arteriosclerotic cardiovascular disease) Chest pain at rest Thickened endometrium Elevated brain natriuretic peptide (BNP) level (Acute) Nausea & vomiting (Acute) Chest pain (Acute) Asthma exacerbation (Acute) Gastroenteritis (Acute) Fall in home (Acute) CHI (closed head injury) (Acute) Scalp laceration (Acute) Facial laceration (Acute) Heart disease HTN (hypertension) Kidney disease Bronchitis Fall in home (Acute) Hyponatremia (Acute) Hypokalemia (Acute) Abdominal pain Diarrhea Vomiting Medical History Macular degeneration Asthma Tobacco use disorder Coronary atherosclerosis of [place] coronary vessel Benign hypertension Atrial fibrillation Diabetes Surgical History H/O heart surgery History of cholecystectomy Hx of tubal ligation Social History Smoking Status: Current every day smoker Tobacco Type: Cigarettes Cigarettes Per Day: 5; Second Hand Exposure: No; Do You Dip or Chew Tobacco: No; Hx Alcohol Use: No Hx Substance Use: No Preferred Language: [place] Communication Ability: Effective Risk Advisor Required: No Beliefs That Will Affect Care: None Current Living Situation: Family Current Living Situation Comment: with daughter Feels Safe at Home: Yes Assistive Devices: Cane and Walker Allergies Allergies Allergy/AdvReac Type Severity Reaction Status Date / Time bee venom protein (honey bee) Allergy Severe SWELLING Verified 01/30/24 16:12 SEVERE doxycycline Allergy Intermediate Vomiting Verified 01/30/24 16:12 Home Meds Home Medications Medication Instructions Recorded Confirmed multivitamin 1 tab PO DAILY #0 tabs 02/07/14 03/02/24 calcium 600 mg (as 1 tab PO QAM ##0 04/22/17 03/02/24 carbonate)-vitamin D3 10 mcg (400 unit) tablet (Calcium 600 + D(3)) omega 5-nng-nvm-fish oil 1,000 mg 1 cap PO DAILY #0 caps 04/22/17 03/02/24 (120 mg-180 mg) capsule (Fish Oil) magnesium oxide 400 mg PO BID #0 tabs 06/01/17 03/02/24 alendronate 70 mg tablet 70 mg PO WK 12/06/23 03/02/24 apixaban 5 mg tablet (Eliquis) 5 mg PO BID 12/06/23 03/02/24 atorvastatin 40 mg tablet 40 mg PO QAM 12/06/23 03/02/24 citalopram 40 mg tablet 40 mg PO QAM 12/06/23 03/02/24 clopidogrel 75 mg tablet 75 mg PO QAM 12/06/23 03/02/24 fluticasone propionate 115 2 puff inhalation AMHS 12/06/23 03/02/24 mcg-salmeterol 21 mcg/actuation HFA inhaler gabapentin 300 mg capsule 300 mg PO TID 12/06/23 03/02/24 levothyroxine 25 mcg tablet 25 mcg PO DAILYBB 12/06/23 03/02/24 oxybutynin chloride 5 mg 5 mg PO QAM 12/06/23 03/02/24 tablet,extended release 24 hr potassium chloride 10 mEq 10 meq PO AMHS 12/06/23 03/02/24 tablet,extended release(part/cryst) (Klor-Con M) trazodone 50 mg tablet 100 mg PO HS 12/06/23 03/02/24 albuterol sulfate 90 mcg/actuation 2 puff inhalation Q4 PRN WHEEZING 01/30/24 03/02/24 aerosol inhaler OR COUGH amiodarone 200 mg tablet 200 mg PO QAM 01/30/24 03/02/24 pantoprazole 40 mg tablet,delayed 40 mg PO QAM 01/30/24 03/02/24 release (Protonix) tiotropium bromide 18 mcg capsule 1 cap inhalation QAM 03/02/24 03/02/24 with inhalation device Previous Rx's Medication Instructions Recorded nitroglycerin 0.4 mg sublingual 0.4 mg sublingual Q5M PRN chest 12/09/23 tablet (Nitrostat) pain #30 tabs umeclidinium 62.5 mcg/actuation 1 inh inhalation DAILY #30 ea 12/14/23 blister powder for inhalation (Incruse Ellipta) ipratropium 0.5 mg-albuterol 3 mg 3 ml NEB QIDR PRN shortness of 12/28/23 (2.5 mg base)/3 mL nebulization breath #90 mL soln carvedilol 12.5 mg tablet 12.5 mg PO BID #0 tabs 02/02/24 furosemide 40 mg tablet 20 mg (1/2 x 40 mg) PO QAM #0 tabs 02/02/24 Results & Data (ED) Vital Signs Vital Signs - 24 hr 03/02/24 19:42 03/02/24 19:48 03/02/24 20:29 Temperature 36.8 C Temperature Source Oral Pulse Rate 111 H 99 H Pulse Rate [Apical] 93 H Pulse Rhythm Respiratory Rate 31 H 22 Respiratory Effort / Characteristics Non-Labored Spontaneous Respiratory Depth Normal Respiratory Pattern Blood Pressure 176/120 H Blood Pressure [Left Arm] 154/109 H Blood Pressure Mean 138 Blood Pressure Mean [Left Arm] 124 Blood Pressure Position [Left Arm] Semi-fowlers Pulse Oximetry 95 Oxygen Delivery Method Room Air Oxygen Flow Rate Sepsis Recent Fever Within 48 Hours No Sepsis New/Unexplained Change in Mental Status No Sepsis Action Taken by Nursing Physician Notified 03/02/24 20:29 03/02/24 20:35 03/02/24 21:13 Temperature 36.9 C Temperature Source Oral Pulse Rate 89 Pulse Rate [Apical] 113 H Pulse Rhythm Irregular Respiratory Rate 28 H 14 Respiratory Effort / Characteristics Non-Labored SOB on Exertion Respiratory Depth Normal Respiratory Pattern Blood Pressure Blood Pressure [Left Arm] 180/134 H Blood Pressure Mean Blood Pressure Mean [Left Arm] 149 Blood Pressure Position [Left Arm] Semi-fowlers Pulse Oximetry 99 100 Oxygen Delivery Method Room Air Room Air Nasal Cannula Oxygen Flow Rate 2 2 Sepsis Recent Fever Within 48 Hours Sepsis New/Unexplained Change in Mental Status Sepsis Action Taken by Nursing 03/02/24 21:59 03/02/24 22:30 03/02/24 22:54 Temperature Temperature Source Pulse Rate Pulse Rate [Apical] 109 H 85 Pulse Rhythm Respiratory Rate 19 15 Respiratory Effort / Characteristics Accessory Muscle Use Grunting Labored Non-Labored Spontaneous Respiratory Depth Normal Respiratory Pattern Gasping Grunting Regular Blood Pressure Blood Pressure [Left Arm] 155/99 H 138/99 Blood Pressure Mean Blood Pressure Mean [Left Arm] 117 112 Blood Pressure Position [Left Arm] Semi-fowlers Pulse Oximetry 100 99 Oxygen Delivery Method Nasal Cannula Nasal Cannula Oxygen Flow Rate 3 3 Sepsis Recent Fever Within 48 Hours Sepsis New/Unexplained Change in Mental Status Sepsis Action Taken by Nursing Laboratory Data 03/02/24 20:10 03/02/24 20:10 Lab Results 03/02/24 03/02/24 03/02/24 Range/Units 20:10 21:48 22:03 WBC 14.53 H (4.8-10.8) K/ul RBC 3.96 L (4.20-5.40) M/uL Hgb 12.1 (12.0-16.0) g/dl Hct 36.6 L (37.0-47.0) % MCV 92.4 (80.0-100.0) fL MCH 30.6 (25.0-34.0) pg MCHC 33.1 (32.0-36.0) g/dL RDW Std Deviation 46.3 (36.4-46.3) fL RDW Coeff of Chet 13.5 (11.5-14.5) % Plt Count 397 (130-400) K/uL MPV 8.5 L (9.4-12.4) fL Immature Gran % (Auto) 0.5 % Neut % (Auto) 80.3 % Lymph % (Auto) 12.7 % [place] % (Auto) 6.3 % Eos % (Auto) 0.1 % Baso % (Auto) 0.1 % Neut # (Auto) 11.66 H (1.40-6.50) K/uL Lymph # (Auto) 1.85 (1.20-3.40) K/uL [place] # (Auto) 0.92 H (0.11-0.59) K/uL Eos # (Auto) 0.01 (0.00-0.50) K/uL Baso # (Auto) 0.02 (0.00-0.20) K/uL Immature Gran # (Auto) 0.07 (0.01-0.20) K/uL PT 10.8 (9.0-12.0) Seconds INR 1.0 (0.9-1.1) VBG pH (7.36-7.41) VBG pCO2 (38-50) mmHg VBG pO2 mmHg VBG HCO3 mmol/L VBG O2 Saturation % VBG Base Excess mEq/L Sodium 139 (136-145) mmol/L Potassium 3.3 L (3.5-5.1) mmol/L Chloride 94 L (98-107) mmol/L Carbon Dioxide 35 H (21-32) mmol/L Anion Gap 10 (3-11) BUN 21 (6-23) mg/dl Creatinine 0.94 (0.6-1.2) mg/dl Est Cr Clr Drug Dosing 41.9 ml/min eGFR 63.67 BUN/Creatinine Ratio 22.3 H (10-20) Glucose 106 H (70-99(Fasting)) mg/dl Lactate 1.5 2.2 H* (0.4-2.0) mmol/L Calcium 9.8 (8.6-10.3) mg/dl Magnesium 1.9 (1.7-2.4) mg/dl Total Bilirubin 0.5 (0.2-1.0) mg/dl AST 36 (13-39) U/L ALT 16 (7-52) U/L Alkaline Phosphatase 98 (34-104) U/L Total Creatine Kinase 108 (26-192) U/L Troponin I High Sens 318.5 H* 341.6 H* (0-14) pg/ml Total Protein 7.0 (6.0-8.3) gm/dl Albumin 3.4 (3.4-5.0) gm/dl Globulin 3.6 (2.5-4.0) gm/dl Albumin/Globulin Ratio 0.9 (0.9-2) Procalcitonin 0.35 (0-0.5) ng/ml TSH 0.775 (0.300-4.500) uIu/ml Adenovirus (PCR) Not Detected (NotDetected) B. pertussis DNA (PCR) Not Detected (NotDetected) B.parapertussis DNA PCR Not Detected (NotDetected) C. pneumoniae DNA (PCR) Not Detected (NotDetected) Coronavirus OC43 (PCR) Not Detected (NotDetected) Coronavirus HKU1 (PCR) Not Detected (NotDetected) Coronavirus 229E (PCR) Not Detected (NotDetected) SARS-CoV-2 (PCR) Not Detected (NotDetected) Coronavirus NL63 (PCR) Not Detected (NotDetected) Human Metapneumovir PCR Not Detected (NotDetected) Influenza Type A (PCR) Not Detected (NotDetected) Influenza Type B (PCR) Not Detected (NotDetected) M. pneumoniae (PCR) Not Detected (NotDetected) Parainfluenza 1 (PCR) Not Detected (NotDetected) Parainfluenza 2 (PCR) Not Detected (NotDetected) Parainfluenza 3 (PCR) Not Detected (NotDetected) Parainfluenza 4 (PCR) Not Detected (NotDetected) RSV (PCR) Not Detected (NotDetected) Entero/Rhino (PCR) Not Detected (NotDetected) 03/02/24 Range/Units 22:18 WBC (4.8-10.8) K/ul RBC (4.20-5.40) M/uL Hgb (12.0-16.0) g/dl Hct (37.0-47.0) % MCV (80.0-100.0) fL MCH (25.0-34.0) pg MCHC (32.0-36.0) g/dL RDW Std Deviation (36.4-46.3) fL RDW Coeff of Chet (11.5-14.5) % Plt Count (130-400) K/uL MPV (9.4-12.4) fL Immature Gran % (Auto) % Neut % (Auto) % Lymph % (Auto) % [place] % (Auto) % Eos % (Auto) % Baso % (Auto) % Neut # (Auto) (1.40-6.50) K/uL Lymph # (Auto) (1.20-3.40) K/uL [place] # (Auto) (0.11-0.59) K/uL Eos # (Auto) (0.00-0.50) K/uL Baso # (Auto) (0.00-0.20) K/uL Immature Gran # (Auto) (0.01-0.20) K/uL PT (9.0-12.0) Seconds INR (0.9-1.1) VBG pH 7.47 H (7.36-7.41) VBG pCO2 50 (38-50) mmHg VBG pO2 34 mmHg VBG HCO3 36 mmol/L VBG O2 Saturation 61.6 % VBG Base Excess 10.9 mEq/L Sodium (136-145) mmol/L Potassium (3.5-5.1) mmol/L Chloride (98-107) mmol/L Carbon Dioxide (21-32) mmol/L Anion Gap (3-11) BUN (6-23) mg/dl Creatinine (0.6-1.2) mg/dl Est Cr Clr Drug Dosing ml/min eGFR BUN/Creatinine Ratio (10-20) Glucose (70-99(Fasting)) mg/dl Lactate (0.4-2.0) mmol/L Calcium (8.6-10.3) mg/dl Magnesium (1.7-2.4) mg/dl Total Bilirubin (0.2-1.0) mg/dl AST (13-39) U/L ALT (7-52) U/L Alkaline Phosphatase (34-104) U/L Total Creatine Kinase (26-192) U/L Troponin I High Sens (0-14) pg/ml Total Protein (6.0-8.3) gm/dl Albumin (3.4-5.0) gm/dl Globulin (2.5-4.0) gm/dl Albumin/Globulin Ratio (0.9-2) Procalcitonin (0-0.5) ng/ml TSH (0.300-4.500) uIu/ml Adenovirus (PCR) (NotDetected) B. pertussis DNA (PCR) (NotDetected) B.parapertussis DNA PCR (NotDetected) C. pneumoniae DNA (PCR) (NotDetected) Coronavirus OC43 (PCR) (NotDetected) Coronavirus HKU1 (PCR) (NotDetected) Coronavirus 229E (PCR) (NotDetected) SARS-CoV-2 (PCR) (NotDetected) Coronavirus NL63 (PCR) (NotDetected) Human Metapneumovir PCR (NotDetected) Influenza Type A (PCR) (NotDetected) Influenza Type B (PCR) (NotDetected) M. pneumoniae (PCR) (NotDetected) Parainfluenza 1 (PCR) (NotDetected) Parainfluenza 2 (PCR) (NotDetected) Parainfluenza 3 (PCR) (NotDetected) Parainfluenza 4 (PCR) (NotDetected) RSV (PCR) (NotDetected) Entero/Rhino (PCR) (NotDetected) Administered Medications Ceftriaxone Sodium (Rocephin) 2,000 mg in 50 mls @ 100 mls/hr IV NOW STA Stop: 03/02/24 23:21 Last Admin: 03/02/24 22:57 Dose: 100 mls/hr Documented By: KATHY Discontinued Medications Hydralazine HCl (Hydralazine Hcl 20 Mg/Ml Vial) 5 mg IV NOW ONE Stop: 03/02/24 21:18 Last Admin: 03/02/24 21:22 Dose: 5 mg Documented By: KATHY Sodium Chloride (Nss) 1,000 mls @ 999 mls/hr IV .Q1H1M ONE Stop: 03/02/24 22:17 Last Infusion: 03/02/24 21:56 Dose: 0 mls/hr Documented By: Admin: 03/02/24 21:18 Dose: 999 mls/hr Documented By: KATHY Imaging Data Radiologist's Impression: Head CT 03/02/24 19:49 Exam(s): CT HEAD Without Contrast EXAM: CT Head Without Intravenous Contrast CLINICAL HISTORY: Reason for exam: weakness. TECHNIQUE: Axial computed tomography images of the head/brain without intravenous contrast. CTDI is 35.51 mGy and DLP is 624.41 mGy-cm. Automated exposure control was utilized for the study. A dose lowering technique was utilized adhering to the principles of ALARA. COMPARISON: Prior head CT from February 01, 2024. FINDINGS: Brain: Unremarkable. No hemorrhage. Mild nonspecific white matter changes.. No edema. Partially empty sella with enlarged diaphragmatic sellae. Ventricles: Mild ventriculomegaly. Bones/joints: Unremarkable. No acute fracture. Soft tissues: Unremarkable. Sinuses: Unremarkable as visualized. No acute sinusitis. Mastoid air cells: Unremarkable as visualized. No mastoid effusion. IMPRESSION: No evidence of acute intracranial Pathology. Electronically signed by: Catherine Kidd MD 03/02/24 23:04 PM Discharge Plan Visit Data Chief Complaint: Weakness Stated Complaint: WEAKNESS, AMS, SOB, STOMACH PAIN ED Provider: Mery Pearl Discharge Problem: Generalized weakness, Acute dyspnea, Non-ST elevation GA (NSTEMI) Forms Stand Alone Forms: [facility] Prescriptions Prescriptions: No Action multivitamin Tablet 1 tab PO DAILY Qty: 0 calcium carbonate-vitamin D3 [Calcium 600 + D(3)] 600 mg-10 mcg (400 unit) Tablet 1 tab PO QAM Qty: 0 omega 2-iwp-wui-fish oil [Fish Oil] 1,000 mg (120 mg-180 mg) Capsule 1 cap PO DAILY Qty: 0 magnesium oxide 400 mg magnesium Tablet 400 mg PO BID Qty: 0 atorvastatin 40 mg tablet 40 mg PO QAM citalopram 40 mg tablet 40 mg PO QAM trazodone 50 mg tablet 100 mg PO HS alendronate 70 mg tablet 70 mg PO WK Rx Instructions: MONDAYS clopidogrel 75 mg tablet 75 mg PO QAM levothyroxine 25 mcg tablet 25 mcg PO DAILYBB oxybutynin chloride 5 mg tablet extended release 24hr 5 mg PO QAM gabapentin 300 mg capsule 300 mg PO TID potassium chloride [Klor-Con M10] 10 mEq tablet,ER particles/crystals 10 meq PO AMHS fluticasone propion-salmeterol 115-21 mcg/actuation HFA aerosol inhaler 2 puff INHALATION AMHS Eliquis 5 mg tablet 5 mg PO BID nitroglycerin [Nitrostat] 0.4 mg Tablet, Sublingual 0.4 mg sublingual Q5M PRN (Reason: chest pain) Qty: 30 0RF ipratropium-albuterol 0.5 mg-3 mg(2.5 mg base)/3 mL Solution For Nebulization 3 ml NEB QIDR PRN (Reason: shortness of breath) Qty: 90 0RF amiodarone 200 mg tablet 200 mg PO QAM albuterol sulfate 90 mcg/actuation HFA aerosol inhaler 2 puff INHALATION Q4 PRN (Reason: WHEEZING OR COUGH) pantoprazole [Protonix] 40 mg tablet,delayed release (DR/EC) 40 mg PO QAM furosemide 40 mg tablet 20 mg PO QAM Qty: 0 0RF carvedilol 12.5 mg tablet 12.5 mg PO BID Qty: 0 0RF Incruse Ellipta 62.5 mcg/actuation Blister With Device 1 inh inhalation DAILY Qty: 30 0RF tiotropium bromide 18 mcg capsule, w/inhalation device 1 cap INHALATION QAM Referrals Referrals: Ronald Cortes MD [Primary Care Provider] -
[2024-03-02 20:49] LABS: Albumin Globulin Ratio 0.9 (0.9-2); Albumin Level 3.4 gm/dl (3.4-5.0); BUN Creatinine Ratio 22.3 (10-20); Bilirubin,Total 0.5 mg/dl (0.2-1.0); Calcium 9.8 mg/dl (8.6-10.3); Creatinine Clr Calc Pharmacy 41.9 ml/min; Globulin 3.6 gm/dl (2.5-4.0); Magnesium 1.9 mg/dl (1.7-2.4); Potassium 3.3 mmol/L (3.5-5.1)
[2024-03-02 20:58] LABS: Troponin I High Sensitivity 318.5 pg/ml (0-14)
[2024-03-02 21:04] LABS: Prothrombin Time 10.8 Seconds (9.0-12.0)
[2024-03-02 21:05] LABS: Thyroid Stimulating Hormone 0.775 uIu/ml (0.300-4.500)
[2024-03-02] MEDS: SODIUM CHLORIDE 0.9% 1,000 ML IV ONE (21:18)
[2024-03-02] MEDS: hydrALAZINE HCL 20 MG/ML VIAL IV ONE (21:22)
[2024-03-02 21:27] LABS: Basophils # (auto) 0.02 K/uL (0.00-0.20); Basophils % (auto) 0.1 %; Eosinophils # (auto) 0.01 K/uL (0.00-0.50); Eosinophils % (auto) 0.1 %; Hematocrit (blood only) 36.6 % (37.0-47.0); Hemoglobin 12.1 g/dl (12.0-16.0); Immature Granulocytes # (auto) 0.07 K/uL (0.01-0.20); Immature Granulocytes % (auto) 0.5 %; Lymphocytes # (auto) 1.85 K/uL (1.20-3.40); Lymphocytes % (auto) 12.7 %; Mean Corpuscular Hemoglobin 30.6 pg (25.0-34.0); Mean Corpuscular Hgb Conc 33.1 g/dL (32.0-36.0); Mean Corpuscular Volume 92.4 fL (80.0-100.0); Mean Platelet Volume 8.5 fL (9.4-12.4); Monocytes # (auto) 0.92 K/uL (0.11-0.59); Monocytes % (auto) 6.3 %; Neutrophils # (auto) 11.66 K/uL (1.40-6.50); Neutrophils % (auto) 80.3 %; Platelet Count 397 K/uL (130-400); RDW Coefficient of Variation 13.5 % (11.5-14.5); RDW Standard Deviation 46.3 fL (36.4-46.3); Red Blood Count 3.96 M/uL (4.20-5.40); White Blood Count 14.53 K/ul (4.8-10.8)
[2024-03-02 21:33] LABS: Adenovirus PCR Not Detected (NotDetected); Bordetella parapertussis PCR Not Detected (NotDetected); Bordetella pertussis PCR Not Detected (NotDetected); Chlamydia pneumoniae PCR Not Detected (NotDetected); Coronavirus 229E PCR Not Detected (NotDetected); Coronavirus CoV-2 (COVID19)PCR Not Detected (NotDetected); Coronavirus HKU1 PCR Not Detected (NotDetected); Coronavirus NL63 PCR Not Detected (NotDetected); Coronavirus OC43PCR Not Detected (NotDetected); Human Metapneumovirus PCR Not Detected (NotDetected); Influenza A PCR Not Detected (NotDetected); Influenza B PCR Not Detected (NotDetected); Mycoplasma pneumoniae PCR Not Detected (NotDetected); Parainfluenza Virus 1 PCR Not Detected (NotDetected); Parainfluenza Virus 2 PCR Not Detected (NotDetected); Parainfluenza Virus 3 PCR Not Detected (NotDetected); Parainfluenza Virus 4 PCR Not Detected (NotDetected); Respiratory Syncytial VirusPCR Not Detected (NotDetected); Rhinovirus/Enterovirus PCR Not Detected (NotDetected)
[2024-03-02 22:24] LABS: Base Excess VBG 10.9 mEq/L; HCO3 VBG 36 mmol/L; Oxygen Saturation VBG 61.6 %; PCO2 VBG 50 mmHg (38-50); PO2 VBG 34 mmHg; pH VBG 7.47 (7.36-7.41)
[2024-03-02] MEDS: cefTRIAXone SODIUM 2,000 MG/50 ML BAG IV STA (22:57)
--- NOTE | 2024-03-02 23:05 | CT Scan Report ---
Exam(s): CT HEAD Without Contrast EXAM: CT Head Without Intravenous Contrast CLINICAL HISTORY: Reason for exam: weakness. TECHNIQUE: Axial computed tomography images of the head/brain without intravenous contrast. CTDI is 35.51 mGy and DLP is 624.41 mGy-cm. Automated exposure control was utilized for the study. A dose lowering technique was utilized adhering to the principles of ALARA. COMPARISON: Prior head CT from February 01, 2024. FINDINGS: Brain: Unremarkable. No hemorrhage. Mild nonspecific white matter changes.. No edema. Partially empty sella with enlarged diaphragmatic sellae. Ventricles: Mild ventriculomegaly. Bones/joints: Unremarkable. No acute fracture. Soft tissues: Unremarkable. Sinuses: Unremarkable as visualized. No acute sinusitis. Mastoid air cells: Unremarkable as visualized. No mastoid effusion. IMPRESSION: No evidence of acute intracranial Pathology. Electronically signed by: Catherine Kidd MD 03/02/24 23:04 PM
[2024-03-02] MEDS: LORazepam 0.5 MG TAB PO STA (23:37)
[2024-03-02 23:49] LABS: Appearance Urine Cloudy (Clear); Bacteria Urine Automated 4+ (None Seen); Bilirubin Urine Negative (Negative); Blood Urine Trace (Negative); Color Urine Yellow; Epithelial Cell Urine Auto 0-2 /hpf (0-2); Glucose Urine UA Negative (Negative); Hyaline Casts Urine Present /lpf (None Presnt); Ketones Urine 1+ (Negative); Leukocyte Esterase Urine 3+ (Negative); Nitrite Urine Positive (Negative); Protein Urine 1+ (Negative); RBC Urine Automated 0-2 /hpf (0-2); Specific Gravity Urine 1.009 (1.000-1.030); Urobilinogen Urine Negative (Negative); WBC Urine Automated >50 /hpf (0-5)
--- NOTE | 2024-03-03 00:25 | XRay Report ---
Exam(s): XR CXR 1 VIEW EXAM: XR Chest, 1 View CLINICAL HISTORY: weakness. TECHNIQUE: Frontal view of the chest. COMPARISON: 02/01/2024. FINDINGS: Lungs: Lungs are hyperinflated. Mild peribronchial thickening. No focal infiltrate. No CHF. Pleural space: No pleural effusion. No pneumothorax. Heart: Unremarkable. No cardiomegaly. Mediastinum: Unremarkable. Normal mediastinal contour. Bones/joints: Unremarkable. No acute fracture. IMPRESSION: Hyperinflation. Mild peribronchial thickening. No focal infiltrate or CHF. Electronically signed by: Aidan Alvarado M.D. 03/03/24 00:23 AM
--- NOTE | 2024-03-03 03:02 | History & Physical Report ---
Date of Service March 03, 2024 Assessment & Plan (1) Non-ST elevation FL (NSTEMI): Plan: 73-year-old female with past medical history significant for chronic respiratory failure with hypoxia on home oxygen, COPD, chronic nonspecific lung disease, hyperlipidemia, hypothyroidism, CAD status post stent, history of A-fib, history of hematuria, osteoarthritis, history of migraine, general anxiety , tobacco use disorder, ambulatory dysfunction and who lives with her daughter was brought in because of weakness and found to UTI and elevated troponin. As per daughter since last 3 days patient is feeling very weak and not able to get up from the bed. And also not taking her pills for last 3 days. She is not even getting up to go to the bathroom. Was feeling feverish. Was feeling nausea. Very poor oral intake. Usually ambulates without support as per daughter. Patient currently alert and oriented x 3. Denies any headache. No runny nose or sore throat. Says has some cough. Says has mild chest pain. Says sometimes she feels short of breath. Denies abdominal pain. Says constipated. Patient says she is not micturating much. Hemodynamics are okay currently. Patient was in the hospital in January 2024 with gastroenteritis and diarrhea illness, GUTIERREZ and hypotension. She was treated with azithromycin for possible COPD exacerbation and with Keflex for E. coli UTI. She required 1 unit of PRBCs last admission and received Lasix. At the discharge she was restarted on low-dose of Lasix and Aldactone was held. Non-ST elevated FL Has some mild chest discomfort Initial troponin 318 and repeat was 341 and trended down to [address] depressions in anterolateral leads Patient is on Eliquis which will be continued We will follow serial cardiac enzymes and echo N.p.o. Telemetry Cardiology consult in a.m. History of CAD status post stent Continue home medications of statin, Plavix and Coreg Sepsis UTI Weakness mostly from sepsis and UTI Recent history of pansensitive E. coli Initial lactic acid 2.2 and repeat lactate is 1.2 Received Rocephin which will be continued. Fluids. Possible sepsis contributing to non-ST elevated FL Lasix and potassium supplement held Will follow cultures History of A-fib On Coreg and amiodarone and Eliquis Hypokalemia Will replace History of COPD Chronic respiratory on home oxygen Continue home inhalers GERD On Protonix Hypothyroidism On Synthyroid Hypertension On Coreg Will monitor General anxiety disorder On citalopram and trazodone which are held for qt prolongation will monitor DVT prophylaxis On Eliquis Disposition Telemetry CODE STATUS full code as per my discussion with daughter History of Present Illness Chief Complaint: Weakness, elevated troponin and UTI Primary Care Provider: Ronald Cortes MD 73-year-old female with past medical history significant for chronic respiratory failure with hypoxia on home oxygen, COPD, chronic nonspecific lung disease, hyperlipidemia, hypothyroidism, CAD status post stent, history of A-fib, history of hematuria, osteoarthritis, history of migraine, general anxiety , tobacco use disorder, ambulatory dysfunction and who lives with her daughter was brought in because of weakness and found to UTI and elevated troponin. As per daughter since last 3 days patient is feeling very weak and not able to get up from the bed. And also not taking her pills for last 3 days. She is not even getting up to go to the bathroom. Was feeling feverish. Was feeling nausea. Very poor oral intake. Usually ambulates without support as per daughter. Patient currently alert and oriented x 3. Denies any headache. No runny nose or sore throat. Says has some cough. Says has mild chest pain. Says sometimes she feels short of breath. Denies abdominal pain. Says constipated. Patient says she is not micturating much. Hemodynamics are okay currently. Patient was in the hospital in January 2024 with gastroenteritis and diarrhea illness, GUTIERREZ and hypotension. She was treated with azithromycin for possible COPD exacerbation and with Keflex for E. coli UTI. She required 1 unit of PRBCs last admission and received Lasix. At the discharge she was restarted on low-dose of Lasix and Aldactone was held. Past medical history. As mentioned above. Past surgical history. Bone marrow aspiration. Colonoscopy. Exploration of abdomen. Fusion of mid foot joint. Cardiac catheterization. Ligation of oviducts. Appendectomy. Cholecystectomy. Left ruptured rotator cuff repair. Sigmoidoscopy with biopsy. Social history. . Smokes 0.5 pack a day for last 70 years. No alcohol use. No drug use. Family history. Aunt had breast cancer. Father had brain cancer. Paternal grandfather had lung cancer. Father had diabetes. Mother had diabetes. Eye problems. CHF. A-fib. Stroke. Allergies Allergy/AdvReac Type Severity Reaction Status Date / Time bee venom protein (honey bee) Allergy Severe SWELLING Verified 01/30/24 16:12 SEVERE doxycycline Allergy Intermediate Vomiting Verified 01/30/24 16:12 Home Medications Medication Instructions Recorded Confirmed Type multivitamin 1 tab PO DAILY #0 tabs 02/07/14 03/02/24 History calcium 600 mg (as 1 tab PO QAM ##0 04/22/17 03/02/24 History carbonate)-vitamin D3 10 mcg (400 unit) tablet (Calcium 600 + D(3)) omega 4-mdy-gtz-fish oil 1,000 mg 1 cap PO DAILY #0 caps 04/22/17 03/02/24 History (120 mg-180 mg) capsule (Fish Oil) magnesium oxide 400 mg PO BID #0 tabs 06/01/17 03/02/24 History alendronate 70 mg tablet 70 mg PO WK 12/06/23 03/02/24 History apixaban 5 mg tablet (Eliquis) 5 mg PO BID 12/06/23 03/02/24 History atorvastatin 40 mg tablet 40 mg PO QAM 12/06/23 03/02/24 History citalopram 40 mg tablet 40 mg PO QAM 12/06/23 03/02/24 History clopidogrel 75 mg tablet 75 mg PO QAM 12/06/23 03/02/24 History fluticasone propionate 115 2 puff inhalation AMHS 12/06/23 03/02/24 History mcg-salmeterol 21 mcg/actuation HFA inhaler gabapentin 300 mg capsule 300 mg PO TID 12/06/23 03/02/24 History levothyroxine 25 mcg tablet 25 mcg PO DAILYBB 12/06/23 03/02/24 History oxybutynin chloride 5 mg 5 mg PO QAM 12/06/23 03/02/24 History tablet,extended release 24 hr potassium chloride 10 mEq 10 meq PO AMHS 12/06/23 03/02/24 History tablet,extended release(part/cryst) (Klor-Con M) trazodone 50 mg tablet 100 mg PO HS 12/06/23 03/02/24 History nitroglycerin 0.4 mg sublingual 0.4 mg sublingual Q5M PRN chest 12/09/23 03/02/24 Rx tablet (Nitrostat) pain #30 tabs umeclidinium 62.5 mcg/actuation 1 inh inhalation DAILY #30 ea 12/14/23 03/02/24 Rx blister powder for inhalation (Incruse Ellipta) ipratropium 0.5 mg-albuterol 3 mg 3 ml NEB QIDR PRN shortness of 12/28/23 03/02/24 Rx (2.5 mg base)/3 mL nebulization breath #90 mL soln albuterol sulfate 90 mcg/actuation 2 puff inhalation Q4 PRN WHEEZING 01/30/24 03/02/24 History aerosol inhaler OR COUGH amiodarone 200 mg tablet 200 mg PO QAM 01/30/24 03/02/24 History pantoprazole 40 mg tablet,delayed 40 mg PO QAM 01/30/24 03/02/24 History release (Protonix) carvedilol 12.5 mg tablet 12.5 mg PO BID #0 tabs 02/02/24 03/02/24 Rx furosemide 40 mg tablet 20 mg (1/2 x 40 mg) PO QAM #0 tabs 02/02/24 03/02/24 Rx tiotropium bromide 18 mcg capsule 1 cap inhalation QAM 03/02/24 03/02/24 History with inhalation device Past Med/Surg History Problem List (Updated 03/03/24 @ 08:23 by Ronald Elaine) Sepsis Epigastric abdominal tenderness Intravascular volume depletion Non-ST elevation FL (NSTEMI) (Acute) Acute dyspnea (Acute) Generalized weakness (Acute) Acute on chronic anemia E. coli UTI Acute dehydration (Acute) COPD (chronic obstructive pulmonary disease) (Acute) GUTIERREZ (acute kidney injury) (Acute) COPD (chronic obstructive pulmonary disease) (Acute) Acute and chronic postprocedural respiratory failure (Acute) COPD with exacerbation Elevated troponin level (Acute) Acute on chronic respiratory failure with hypoxia and hypercapnia (Acute) COPD (chronic obstructive pulmonary disease) (Acute) Dyslipidemia, goal LDL below 70 PAF (paroxysmal atrial fibrillation) Uncontrolled hypertension ASCVD (arteriosclerotic cardiovascular disease) Chest pain at rest Thickened endometrium Elevated brain natriuretic peptide (BNP) level (Acute) Nausea & vomiting (Acute) Chest pain (Acute) Asthma exacerbation (Acute) Gastroenteritis (Acute) Fall in home (Acute) CHI (closed head injury) (Acute) Scalp laceration (Acute) Facial laceration (Acute) Heart disease HTN (hypertension) Kidney disease Bronchitis Fall in home (Acute) Hyponatremia (Acute) Hypokalemia (Acute) Abdominal pain Diarrhea Vomiting Medical History Absent pedal pulses Macular degeneration Asthma Tobacco use disorder Coronary atherosclerosis of jackson coronary vessel Benign hypertension Atrial fibrillation Diabetes Surgical History H/O heart surgery History of cholecystectomy Hx of tubal ligation Social History Smoking Status: Current every day smoker Tobacco Type: Cigarettes Cigarettes Per Day: 5; Second Hand Exposure: No; Do You Dip or Chew Tobacco: No; Hx Alcohol Use: No Hx Substance Use: No Preferred Language: [place] Communication Ability: Effective Board Worker Required: No Beliefs That Will Affect Care: None Current Living Situation: Family Current Living Situation Comment: with daughter Other Information That Helps Us Care for You: No Feels Safe at Home: Yes Safety Concerns: Feels Safe At This Time Assistive Devices: Cane, Denture - Upper, Denture - Lower, Walker and Wheelchair Review of Systems Review of Systems: All systems reviewed & are unremarkable except as noted in HPI & below Physical Exam Physical Exam: General- Not in acute distress Head- atraumatic Eyes- PERRL. ENT- oropharynx clear Neck- supple, no JVD. Lungs- clear to auscultation , no wheezing or crackles Heart- regular rate and rhythm; no murmur, no gallop. Abdomen- normal bowel sounds, soft, nontender, no distension Extremities- no pretibial edema, no erythema seen Neuro- alert, oriented x 3; PERRL, no facial palsy; no dysarthria; obeys simple commands, moves extremities. Skin- warm & dry Results & Data Results & Data Vital Signs (Past 12 Hours) Vital Signs Temp Pulse Pulse Resp BP BP Pulse Ox 03/03/24 01:30 92 H 20 136/96 99 03/03/24 00:00 84 29 H 116/86 98 03/03/24 00:00 98 H 18 116/86 98 03/02/24 23:40 87 03/02/24 23:30 92 H 21 108/81 97 03/02/24 22:54 85 15 99 03/02/24 22:30 138/99 03/02/24 21:59 109 H 19 155/99 H 100 03/02/24 21:13 36.9 C 113 H 14 180/134 H 100 03/02/24 20:35 99 03/02/24 20:29 89 28 H 03/02/24 20:29 93 H 22 154/109 H 03/02/24 19:48 99 H 03/02/24 19:42 36.8 C 111 H 31 H 176/120 H 95 O2 Del Method O2 Flow Rate 03/03/24 01:30 Nasal Cannula 2 03/03/24 00:00 Nasal Cannula 2 03/03/24 00:00 Nasal Cannula 2 03/02/24 23:40 03/02/24 23:30 Nasal Cannula 2 03/02/24 22:54 Nasal Cannula 3 03/02/24 22:30 03/02/24 21:59 Nasal Cannula 3 03/02/24 21:13 Nasal Cannula 2 03/02/24 20:35 Room Air 2 03/02/24 20:29 Room Air 03/02/24 20:29 03/02/24 19:48 03/02/24 19:42 Room Air Diagnostic Findings Laboratory Results WBC 14.53 K/ul (4.8-10.8) H 03/02/24 20:10 RBC 3.96 M/uL (4.20-5.40) L 03/02/24 20:10 Hgb 12.1 g/dl (12.0-16.0) 03/02/24 20:10 Hct 36.6 % (37.0-47.0) L 03/02/24 20:10 MCV 92.4 fL (80.0-100.0) 03/02/24 20:10 MCH 30.6 pg (25.0-34.0) 03/02/24 20:10 MCHC 33.1 g/dL (32.0-36.0) 03/02/24 20:10 RDW Std Deviation 46.3 fL (36.4-46.3) 03/02/24 20:10 RDW Coeff of Chet 13.5 % (11.5-14.5) 03/02/24 20:10 Plt Count 397 K/uL (130-400) 03/02/24 20:10 MPV 8.5 fL (9.4-12.4) L 03/02/24 20:10 Immature Gran % (Auto) 0.5 % 03/02/24 20:10 Neut % (Auto) 80.3 % 03/02/24 20:10 Lymph % (Auto) 12.7 % 03/02/24 20:10 [place] % (Auto) 6.3 % 03/02/24 20:10 Eos % (Auto) 0.1 % 03/02/24 20:10 Baso % (Auto) 0.1 % 03/02/24 20:10 Neut # (Auto) 11.66 K/uL (1.40-6.50) H 03/02/24 20:10 Lymph # (Auto) 1.85 K/uL (1.20-3.40) 03/02/24 20:10 [place] # (Auto) 0.92 K/uL (0.11-0.59) H 03/02/24 20:10 Eos # (Auto) 0.01 K/uL (0.00-0.50) 03/02/24 20:10 Baso # (Auto) 0.02 K/uL (0.00-0.20) 03/02/24 20:10 Immature Gran # (Auto) 0.07 K/uL (0.01-0.20) 03/02/24 20:10 PT 10.8 Seconds (9.0-12.0) 03/02/24 20:10 INR 1.0 (0.9-1.1) 03/02/24 20:10 VBG pH 7.47 (7.36-7.41) H 03/02/24 22:18 VBG pCO2 50 mmHg (38-50) 03/02/24 22:18 VBG pO2 34 mmHg 03/02/24 22:18 VBG HCO3 36 mmol/L 03/02/24 22:18 VBG O2 Saturation 61.6 % 03/02/24 22:18 VBG Base Excess 10.9 mEq/L 03/02/24 22:18 Sodium 139 mmol/L (136-145) 03/02/24 20:10 Potassium 3.3 mmol/L (3.5-5.1) L 03/02/24 20:10 Chloride 94 mmol/L (98-107) L 03/02/24 20:10 Carbon Dioxide 35 mmol/L (21-32) H 03/02/24 20:10 Anion Gap 10 (3-11) 03/02/24 20:10 BUN 21 mg/dl (6-23) 03/02/24 20:10 Creatinine 0.94 mg/dl (0.6-1.2) 03/02/24 20:10 Est Cr Clr Drug Dosing 41.9 ml/min 03/02/24 20:10 eGFR 63.67 03/02/24 20:10 BUN/Creatinine Ratio 22.3 (10-20) H 03/02/24 20:10 Glucose 106 mg/dl (70-99(Fasting)) H 03/02/24 20:10 Lactate 1.2 mmol/L (0.4-2.0) 03/03/24 01:45 Calcium 9.8 mg/dl (8.6-10.3) 03/02/24 20:10 Magnesium 1.9 mg/dl (1.7-2.4) 03/02/24 20:10 Total Bilirubin 0.5 mg/dl (0.2-1.0) 03/02/24 20:10 AST 36 U/L (13-39) 03/02/24 20:10 ALT 16 U/L (7-52) 03/02/24 20:10 Alkaline Phosphatase 98 U/L (34-104) 03/02/24 20:10 Total Creatine Kinase 108 U/L (26-192) 03/02/24 20:10 Troponin I High Sens 264.4 pg/ml (0-14) H* D 03/03/24 01:45 Total Protein 7.0 gm/dl (6.0-8.3) 03/02/24 20:10 Albumin 3.4 gm/dl (3.4-5.0) 03/02/24 20:10 Globulin 3.6 gm/dl (2.5-4.0) 03/02/24 20:10 Albumin/Globulin Ratio 0.9 (0.9-2) 03/02/24 20:10 Procalcitonin 0.35 ng/ml (0-0.5) 03/02/24 20:10 TSH 0.775 uIu/ml (0.300-4.500) 03/02/24 20:10 Urine Color Yellow 03/02/24 23:11 Urine Appearance Cloudy (Clear) A 03/02/24 23:11 Urine pH 7.0 (4.5-7.5) 03/02/24 23:11 Ur Specific [place] 1.009 (1.000-1.030) 03/02/24 23:11 Urine Protein 1+ (Negative) H 03/02/24 23:11 Urine Glucose (UA) Negative (Negative) 03/02/24 23:11 Urine Ketones 1+ (Negative) H 03/02/24 23:11 Urine Blood Trace (Negative) H 03/02/24 23:11 Urine Nitrite Positive (Negative) A 03/02/24 23:11 Urine Bilirubin Negative (Negative) 03/02/24 23:11 Urine Urobilinogen Negative (Negative) 03/02/24 23:11 Ur Leukocyte Esterase 3+ (Negative) H 03/02/24 23:11 Urine WBC (Auto) >50 /hpf (0-5) H 03/02/24 23:11 Urine RBC (Auto) 0-2 /hpf (0-2) 03/02/24 23:11 U Hyaline Cast (Auto) 3-5 /lpf (0-2) H 03/02/24 23:11 U Epithel Cells (Auto) 0-2 /hpf (0-2) 03/02/24 23:11 Urine Bacteria (Auto) 4+ (None Seen) H 03/02/24 23:11 Hyaline Casts Present /lpf (None Presnt) A 03/02/24 23:11 Adenovirus (PCR) Not Detected (NotDetected) 03/02/24 20:10 B. pertussis DNA (PCR) Not Detected (NotDetected) 03/02/24 20:10 B.parapertussis DNA PCR Not Detected (NotDetected) 03/02/24 20:10 C. pneumoniae DNA (PCR) Not Detected (NotDetected) 03/02/24 20:10 Coronavirus OC43 (PCR) Not Detected (NotDetected) 03/02/24 20:10 Coronavirus HKU1 (PCR) Not Detected (NotDetected) 03/02/24 20:10 Coronavirus 229E (PCR) Not Detected (NotDetected) 03/02/24 20:10 SARS-CoV-2 (PCR) Not Detected (NotDetected) 03/02/24 20:10 Coronavirus NL63 (PCR) Not Detected (NotDetected) 03/02/24 20:10 Human Metapneumovir PCR Not Detected (NotDetected) 03/02/24 20:10 Influenza Type A (PCR) Not Detected (NotDetected) 03/02/24 20:10 Influenza Type B (PCR) Not Detected (NotDetected) 03/02/24 20:10 M. pneumoniae (PCR) Not Detected (NotDetected) 03/02/24 20:10 Parainfluenza 1 (PCR) Not Detected (NotDetected) 03/02/24 20:10 Parainfluenza 2 (PCR) Not Detected (NotDetected) 03/02/24 20:10 Parainfluenza 3 (PCR) Not Detected (NotDetected) 03/02/24 20:10 Parainfluenza 4 (PCR) Not Detected (NotDetected) 03/02/24 20:10 RSV (PCR) Not Detected (NotDetected) 03/02/24 20:10 Entero/Rhino (PCR) Not Detected (NotDetected) 03/02/24 20:10 Impressions Chest X-Ray 03/02/24 19:49 Exam(s): XR CXR 1 VIEW EXAM: XR Chest, 1 View CLINICAL HISTORY: weakness. TECHNIQUE: Frontal view of the chest. COMPARISON: 02/01/2024. FINDINGS: Lungs: Lungs are hyperinflated. Mild peribronchial thickening. No focal infiltrate. No CHF. Pleural space: No pleural effusion. No pneumothorax. Heart: Unremarkable. No cardiomegaly. Mediastinum: Unremarkable. Normal mediastinal contour. Bones/joints: Unremarkable. No acute fracture. IMPRESSION: Hyperinflation. Mild peribronchial thickening. No focal infiltrate or CHF. Electronically signed by: Aidan Alvarado M.D. 03/03/24 00:[address] 03/02/24 19:49 Exam(s): CT HEAD Without Contrast EXAM: CT Head Without Intravenous Contrast CLINICAL HISTORY: Reason for exam: weakness. TECHNIQUE: Axial computed tomography images of the head/brain without intravenous contrast. CTDI is 35.51 mGy and DLP is 624.41 mGy-cm. Automated exposure control was utilized for the study. A dose lowering technique was utilized adhering to the principles of ALARA. COMPARISON: Prior head CT from February 01, 2024. FINDINGS: Brain: Unremarkable. No hemorrhage. Mild nonspecific white matter changes.. No edema. Partially empty sella with enlarged diaphragmatic sellae. Ventricles: Mild ventriculomegaly. Bones/joints: Unremarkable. No acute fracture. Soft tissues: Unremarkable. Sinuses: Unremarkable as visualized. No acute sinusitis. Mastoid air cells: Unremarkable as visualized. No mastoid effusion. IMPRESSION: No evidence of acute intracranial Pathology. Electronically signed by: Catherine Kidd MD 03/02/24 23:04 PM ECG Additional Comments: ECG. Atrial fibrillation. ST and T wave abnormalities in anterolateral leads Code Status & VTE Plan VTE Prophylaxis Plan VTE Prophylaxis will be ordered: Yes
[2024-03-03] MEDS: POTASSIUM CHLORIDE 20 MEQ/15 ML UDC PO STA (03:12)
[2024-03-03] MEDS: LORazepam 0.5 MG TAB PO STA (04:07)
[2024-03-03] MEDS: APIXABAN 5 MG TABLET PO STA (04:11)
[2024-03-03] MEDS ORDERED: NITROGLYCERIN SL 0.4 MG/TAB TAB SL PRN (05:31)
[2024-03-03] MEDS ORDERED: ALBUT/IPRATROP 3MG/0.5MG NEB 3 ML VIAL NEB PRN (05:31)
[2024-03-03] MEDS ORDERED: ALBUTEROL HFA 8 GM INHALER INH PRN (05:31)
[2024-03-03] MEDS: D5W AND NSS 1,000 ML IV SCH (06:23)
[2024-03-03 07:08] LABS: Basophils # (auto) 0.01 K/uL (0.00-0.20); Basophils % (auto) 0.1 %; Eosinophils # (auto) 0.02 K/uL (0.00-0.50); Eosinophils % (auto) 0.2 %; Hemoglobin 11.6 g/dl (12.0-16.0); Immature Granulocytes # (auto) 0.06 K/uL (0.01-0.20); Immature Granulocytes % (auto) 0.5 %; Lymphocytes # (auto) 1.74 K/uL (1.20-3.40); Lymphocytes % (auto) 13.9 %; Mean Corpuscular Hemoglobin 30.8 pg (25.0-34.0); Mean Corpuscular Hgb Conc 33.1 g/dL (32.0-36.0); Mean Corpuscular Volume 92.8 fL (80.0-100.0); Mean Platelet Volume 8.6 fL (9.4-12.4); Monocytes # (auto) 1.03 K/uL (0.11-0.59); Monocytes % (auto) 8.2 %; Neutrophils # (auto) 9.65 K/uL (1.40-6.50); Neutrophils % (auto) 77.1 %; Platelet Count 387 K/uL (130-400); RDW Coefficient of Variation 13.7 % (11.5-14.5); RDW Standard Deviation 46.9 fL (36.4-46.3); Red Blood Count 3.77 M/uL (4.20-5.40); White Blood Count 12.51 K/ul (4.8-10.8)
[2024-03-03 07:31] LABS: BUN Creatinine Ratio 25.6 (10-20); Creatinine Clr Calc Pharmacy 45.4 ml/min; Magnesium 1.9 mg/dl (1.7-2.4)
[2024-03-03 07:38] LABS: Troponin I High Sensitivity 233.4 pg/ml (0-14)
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
[2024-03-03] MEDS: APIXABAN 5 MG TABLET PO SCH (08:26)
[2024-03-03] MEDS: MAGNESIUM OXIDE 400 MG TAB PO SCH (08:26)
[2024-03-03] MEDS: MULTIVITAMIN TAB PO SCH (08:27)
[2024-03-03] MEDS: CALCIUM 600MG + VIT D 400 IU TAB PO SCH (08:27)
[2024-03-03] MEDS: GABAPENTIN 300 MG CAP PO SCH (08:27)
[2024-03-03] MEDS: LEVOTHYROXINE SODIUM 25 MCG TABLET PO SCH (08:27)
[2024-03-03] MEDS: CLOPIDOGREL BISULFATE 75 MG TAB PO SCH (08:27)
[2024-03-03] MEDS: PANTOprazole 40 MG TAB PO SCH (08:27)
[2024-03-03] MEDS: OXYBUTYNIN CHLORIDE XL 5 MG TABCR PO SCH (08:28)
[2024-03-03] MEDS: AMIODARONE 200 MG TAB PO SCH (08:28)
[2024-03-03] MEDS: ATORVASTATIN 40 MG TAB PO SCH (08:28)
[2024-03-03] MEDS: carvediloL 12.5 MG TAB PO SCH (08:28)
[2024-03-03] MEDS ORDERED: TIOTROPIUM BROMIDE 5 PUFF/90 MCG INH INH SCH (09:00)
[2024-03-03] MEDS: LOSARTAN POTASSIUM 25 MG TAB PO SCH (10:50)
[2024-03-03] MEDS: FLUTICASONE/VILANTEROL 200/25MCG 14 PUFFS/INHALER INH SCH (10:50)
[2024-03-03] MEDS: UMECLIDINIUM BROMIDE 62.5MCG/BLISTER 7 PUFFS/INHALER INH SCH (10:50)
--- NOTE | 2024-03-03 15:35 | Hospitalist Progress Note ---
Date of Service March 03, 2024 Assessment & Plan (1) Severe sepsis with acute organ dysfunction: (2) Suspected urinary tract infection: (3) Myocardial infarction due to demand ischemia: (4) Acute metabolic encephalopathy: (5) COPD (chronic obstructive pulmonary disease): (6) PAF (paroxysmal atrial fibrillation): (7) Uncontrolled hypertension: Plan Patient with severe sepsis due to urinary tract infection as evidenced by hypoxia and demand ischemia. Continue IV antibiotics, monitor cultures and sensitivities Medication with cardiology team. Patient no longer on amiodarone. Discontinue amiodarone, continue beta-zaki. Continue medical management of demand ischemia by treating sepsis Therapies Case management for discharge planning Phone conversation with patient's daughter. She reports that the patient has been ambulatory and doing most of her self-care. She is often at home with the patient and assist with getting into the shower but otherwise patient fairly active. Explained to the daughter that she may be so deconditioned she may need short-term rehab prior to returning home. Can discuss further with case management Continue chronic anticoagulation for paroxysmal atrial fibrillation with Eliquis Monitor laboratory studies Admission and Anticipated Discharge Date Admission Date: March 03, 2024 Subjective Patient denies any pain, still pretty weak and fatigued. Physical Exam Physical Exam: Constitutional: Somnolent, moderately toxic in appearance HEENT: Mucous membranes slightly dry Lungs: Decreased breath sounds, scattered crackles CV: S1-S2, regular Abdomen: Soft, nontender, nondistended Extremities: No significant edema Neuro: Generalized weakness Psych: Somnolent Results & Data Results & Data Vital Signs (Past 12 Hours) Vital Signs Temp Pulse Pulse Resp BP BP BP 03/03/24 10:55 36.8 C 77 14 121/77 03/03/24 08:18 36.4 C L 85 17 149/88 H 03/03/24 07:36 77 03/03/24 05:35 03/03/24 05:29 36.5 C 87 18 146/93 H 03/03/24 04:46 87 30 H 130/98 03/03/24 04:02 85 28 H 151/98 H 03/03/24 03:31 92 H Pulse Ox O2 Del Method O2 Flow Rate 03/03/24 10:55 94 Nasal Cannula 2 03/03/24 08:18 97 Nasal Cannula 2 03/03/24 07:36 03/03/24 05:35 Nasal Cannula 2 03/03/24 05:29 100 Nasal Cannula 2 03/03/24 04:46 99 Nasal Cannula 2 03/03/24 04:02 98 Nasal Cannula 2 03/03/24 03:31 Diagnostic Findings Reviewed imaging, laboratory and diagnostic studies. Pertinent findings as below. Troponins reviewed WBCs 12.5, improved Hemoglobin [place] 0.6 BMP stable Creatinine 0.82 Blood and urine cultures pending Reviewed echocardiogram, no significant wall motion abnormalities, ejection fraction 55 to 60%.
[2024-03-03] MEDS: SODIUM CHLORIDE 0.9% 1,000 ML IV SCH (18:30)
[2024-03-03] MEDS: cefTRIAXone SODIUM 2,000 MG/50 ML BAG IV SCH (20:44)
[2024-03-03] MEDS ORDERED: traZODone HCL 100 MG TAB PO SCH (21:00)
--- OUTSIDE RECORDS SUMMARY | 2024-03-03 23:08 | External Medical Summary | Summary of Care ---
Author Name Unknown Organization [facility] Address [address] [place] [address] Phone [phone] Care Team Providers Care Rolls Mill Operator Name Role Phone Ronald Cortes MD Primary Care Provider Reason for Visit * Reason Onset Date Comments Order Request 02/12/2024 Encounter Details Date Type Department Care Team (Late st Contact Info) Description 02/12/2024 Telephone [facility] [address] [place] [address] Ronald Cortes MD [address] [place] [address] Order Request Allergies Active Allergy Reactions Criticality Noted Date Comments Bee Venom Anaphylaxis High 02/27/2006 Doxycycline Low 08/04/2023 Intolerant, GI upset documented as of this encounter (statuses as of 02/16/2024) Medications Medication Sig Dispensed Refills Start Date End Date Status CALCIUM + D 600-200 MG-UNIT PO TABS 1 BID 0 03/13/2006 Active MULTIVITAMINS PO TABS daily 0 03/13/2006 Active ACETAMINOPHEN 325 MG PO TABSIndications:INTE RFACED RESULT,Pneumothorax 2 Tab Oral Every 6 hours as needed for fever, pain, headache 1 Tab 0 07/27/2013 Active Logan-3 Fatty Acids (FISH OIL) 1000 MG Capsule 1 Capsule in the morning. Active TO GO ondansetron ODT (ZOFRAN ODT) 4 MG Orally Disintegrated TabletIndications:No nspecific colitis 1 tab every 8 hrs as needed for nausea 30 Each 3 07/12/2019 Active Additional Information Patient not taking.Reported on 02/08/2024 Magnesium Oxide 400 MG Oral TabletIndications:Hy pomagnesemia [...] twice daily 85 g 1 07/01/2023 Active Furosemide 40 MG Oral Tablet [...] until resolved 85 g 3 07/02/2023 Active Gabapentin 300 MG Oral Capsule (Neurontin)Indicatio [...] for Pain, Moderate. 45 Tablet 08/07/2023 Active Fluticasone-Salmeter ol 115-21 MCG/ACT Inhalation Aerosol [...] minutes as needed for Pain, Chest. Active predniSONE 20 MG Oral Tablet (Deltasone) 12/14/2023 Active Incruse Ellipta 62.5 MCG/ACT Inhalation Aerosol Powder Breath Activated 12/14/2023 Active Cephalexin 250 MG Oral Capsule (Keflex) Take 2 Capsules by mouth in the morning and 2 Capsules before bedtime. 02/02/2024 Active Pantoprazole Sodium 40 MG Oral Tablet Delayed Release (Protonix)Indication s:Gastroesophageal reflux disease, unspecified whether esophagitis present Take 1 Tablet by mouth in the morning. 90 Tablet 3 02/03/2024 Active Amiodarone HCl 200 MG Oral Tablet (Cordarone) Take 1 Tablet by mouth in the morning. Active Albuterol Sulfate HFA 108 (90 Base) MCG/ACT Inhalation Aerosol Solution Inhale 2 Puffs by mouth every 4 hours as needed for Wheezing or Cough. 54 g 3 02/08/2024 Active Tiotropium [place] Monohydrate 18 MCG Inhalation Capsule (Spiriva HandiHaler) Inhale 1 Capsule by mouth in the morning. INHALE THE CONTENTS OF 1 CAPSULE EVERY DAY VIA HANDIHALER (DO NOT SWALLOW). 90 Capsule 3 02/08/2024 Active Hospital, Clinic, or Other Facility Administered [...] as of this encounter (statuses as of 02/16/2024) Active Problems Problem Noted Date Diagnosed Date History of atrial fibrillation 02/08/2024 Gait difficulty 02/08/2024 Chronic respiratory failure with hypoxia 024 COPD, group B, by GOLD 2017 classification 09/20 Overview: Per COPD GOLD Classification Acquired hypothyroidism 07/19/2023 History of coronary angioplasty with insertion o f stent 07/01/2023 Coronary artery disease invo lving tangirnaq coronary artery of tangirnaq heart without angina pectoris 07/01/2023 Hematuria of undiagnosed cause 07/12/2019 Tobacco use disorder 12/21/2017 Chronic nonspecific lung disease 06/16/2017 HTN, goal below 150/90 11/16/2015 Osteoporosis 12/28/2014 Dyslipidemia, goal LDL below 100 06/10/2010 Generalized osteoarthritis of multiple sites 02/2011 GENERALIZED ANXIETY DIS 12/05/2004 COMMON MIGRAINE WITHOUT MENTION OF INTRACTABLE M IGRAINE documented as of this encounter (statuses as of 02/16/2024) Resolved Problems Problem Noted Date Diagnosed Date [...] Per Lipid Taxonomy. Chest pain 02/27/2006 12/31/2016 ADVANCE DIRECTIVE INFORMATION 01/17/2005 02/15/2024 Overview: No, Advance Directive brochure given to patient. Menopause 01/17/2005 12/31/2016 Edema 07/26/2004 12/31/2016 Dental disorder 07/26/2004 12/31/2016 OBESITY, UNSPECIFIED 09/14/2002 010 Overview: Per Obesity Taxonomy HTN, goal below 140/90 06/02/200111/15 Mixed dyslipidemia 9 Overview: Per Lipid Taxonomy. Tobacco use disorder 000 documented as of this encounter (statuses as of 02/16/2024) Immunizations Name Administration Dates Next Due COVID-19, MRNA-LNP, PF, 30 M CG/0.3 mL, 12 YRS AND ABOVE, IM (PFIZER-Comirnaty) 02/08/2024 Pneumococcal Conjugate Vacc, 13 Valent (Prevnar) 11/17/2014 Pneumococcal Polysaccharide PPV23 (Pneumovax) 12/31/2016,06/10/2010 Season Influenza, Quad, PF, Adjuvanted, 65+ Yrs, IM (FLUAD) 01/24/2020 Seasonal Influenza Vac., MDV , IM, 0.5 mL (Fluzone) 12/28/2013,01/19/2013,01/15/2012,01/11,02/11/2010,05/12/2008,05/12/19 09(Deferred: Patient Refused),03/15/2007,02/13/2006 Seasonal Influenza, High Dos e, Trivalent, PF, IM (Fluzone HD) 02/08/2024 Seasonal Influenza, PF, 6 M & above, IM , (FluLaval or Fluzone) 12/27/2018,12/21/2017,12/31/2016 Seasonal Influenza, Quadriva lent Hd (Fluzone Hd) 03/14/2021 Seasonal Influenza, Quadriva lent, No Preserve, IM 03/22/2015 03/22/2016 TD, Preservative Free 09/12/2021 TDAP, Age 7 and older, IM (Adacel) 06/10/2010 Varicella Zoster Vaccine (Adult) 01/23/2012 documented as of this encounter Social History Tobacco Use Types Packs/Day Years Used Date Smoking Tobacco: Every Day Cigarettes 0.6 70.5 Started: 09/02/1973 Smokeless Tobacco: Never Comments:04/14 ppd. [...] Telephone Encounter - Cat Angel LPN - 02/15/2024 11:43 AM EST DME order sent to [facility]. * Telephone Encounter - Ronald Cortes MD - 02/14/2024 8:56 AM EST Note: I have placed order (DME) for portable oxygen concentrator. Not sure if her insurance will pay for concentrator. If not , then will order small Oxygen tanks. Regarding "scooter", we can discuss this at her next office visit later this month. There is much more to getting a scooter than just getting an order. She will need to have physical therapy evaluation including a home visit with PT. * Telephone Encounter - Jaylin Jarvis LPN - 02/12/2024 11:58 AM EDT Please advise, can orders be placed? * Telephone Encounter - Tresa Calderon PHARM Tech - 02/12/2024 11:38 AM EDT Pt calling in states she had seen Dr Rios last week who she spoke with on getting a portable oxygen tank and scooter. He referred her to contact PCP to see if can get orders placed. Pt states she isconfined to her bed with the big oxygen tank and would like to get an order for a portable oxygen tank sent in. Pt states she uses setting 2 on the oxygen. Pt would also like to see if she could get an order for an electric mobility scooter sent in as well. Pt says she uses [employer] with her insurance. Thank You, Tresa Calderon, [facility] Architectural Inspector II [facility] 02/12/2024, 11:41 AM documented in this encounter Plan of Treatment Upcoming Encounters Date Type Department Care Team (Late st Contact Info) Description 03/09/2024 6:20 PM EST Office Visit [address] [address] Ronald Cortes MD [address] [place] [address] 04/28/2024 1:00 PM EST Office Visit [facility] [address] [place] [address] Hitesh Gordillo, [address] [place] [address] 05/23/2024 2:00 PM EST Office Visit Pulmonary Medicine, [facility] [address] [facility] [place] [address] Mar[facility] Serrano [facility] [address] [facility] [address] 06/07/2024 8:30 AM EST Office Visit Cardiology, [facility] [address] [facility] [place] [address] Pepe Lennon, DO [address] [facility] [place] [address] 07/13/2024 3:30 PM EDT Imaging Radiology, [place] [address] [facility] [place] [address] Scheduled Procedures Name Priority Associated Diagnoses Date/Ti me COLONOSCOPY FLEXIBLE PROXIMA L DIAGNOSTIC Recall Encounter for screening colonoscopy Health Maintenance Due Date Last Done Comments DISCUSS TOBACCO CESSATION (REFER TO SMARTSET #7541) 1949 Alpha-1 Antitrypsin 1967 Cologuard 1994 Sigmoidoscopy 1994 Zoster Vaccines (2 of 3) 03/19/2012 01/23/2012 Adult Wellness Visit 2015 DXA Scan 12/27/2016 12/27/2014, 03/13, 03/29/2007, Additional history exists Fecal Occult Blood Test 04/23/2018 04/23/19 18, 12/21/2000, 10/31/1999 GFR 06/30/2024 07/01/2023, 03/13, 03/09/2023, Additional history exists Depression Screening 10/08/2024 10/09/2023 Mammogram 10/08/2024 07/22/2012, 07/12, 07/18/2010, Additional history exists Postponed from 07/22/2013 (Patient Declined After Education) TSH 10/08/2024 10/09/2023, 06/12, 08/08/2013, Additional history exists O2 ASSESSMENT COMPLETED IN PAST YEAR FOR COPD 02/07/2025 02/08/2024 Albumin/Creatinine Ratio 08/15/2025 08/15/2022 Colonoscopy 06/02/2027 06/02/2017, 04/12/2007 Colorectal Cancer Screening 06/02/2027 DTap/Tdap Vaccines (3 - Td or Tdap) 09/13/2031 09/12/2021, 06/10/2010, 07/16/1999 VITAMIN D LEVEL ONCE IN A LIFETIME-USE SMARTSET# [id number] Completed 03/22/2015 Pneumococcal Vaccine: 65+ Years Completed 12/31/2016, 11/17/2014, 06/10/2010 Lung Cancer Screening Completed 01/05/2017, 014 COVID-19 Vaccine Completed 02/08/2024, , 02/07/2021 Influenza Vaccine (FLU shot) Completed 02/08/2024, 03/14/2021, 01/24/2020, Additional history exists HPV (Gardasil) Vaccine Aged Out No lo nger eligible based on patient's age to complete this topic Hepatitis B Vaccine Aged Out No longe r eligible based on patient's age to complete this topic MENINGOCOCCAL (MENACTRA/MENVEO) Aged Out No longer eligible based on patient's age to complete this topic documented as of this encounter Medical Devices Implanted Type Area Reporting Lead Device Identifier Shelf Expiration Date Model / Serial / Lot Chip Cancellous [facility] [id number] - [id number] Implanted:Qty: 1 on 08/08/2013 at [place] [facility] [place] Tissue - Human Left: Foot MUSCULOSKELETAL TRANSPLANT FND 07/24/2015 [id number] / [id number] / Screw Nonlock 3.5 X 24 - [id number] Implanted:Qty: 1 on 08/08/2013 at [place] [facility] Left: Foot ORTHOHELIX [employer]IG[employer] PANTS PRESSER-011-3 5-24 / / Screw Locking 3.5 X 16 - [id number] Implanted:Qty: 2 on 08/08/2013 at [place] [facility] [place] Left: Foot ORTHOHELIX [employer] DESIGNS PANTS PRESSER-021-3 5-16 / / Plate 6 Hole Beta Mxl-0026 - [id number] Implanted:Qty: 1 on 08/08/2013 at [place] [facility] Left: Foot ORTHOHELIX [employer] DESIGNS MXL-0026 / / Screw Locking 3.5 X 20 - [id number] Implanted:Qty: 1 on 08/08/2013 at [place] [facility] Left: Foot ORTHOHELIX [employer] DESIGNS PANTS PRESSER-021-3 5-20 / / Screw Nonlock 3.5 X 16 - [id number] Implanted:Qty: 1 on 08/08/2013 at [place] [facility] Left: Foot ORTHOHELIX SURG[employer] DESIGNS PANTS PRESSER-011-3 5-16 / / Screw Nonlock 3.5 X 18 - [id number] Implanted:Qty: 1 on 08/08/2013 at [place] [facility] Left: Foot ORTHOHELIX [employer] DESIGNS PANTS PRESSER-011-3 5-18 / / Screw Nonlock 3.5 X 14 - [id number] Implanted:Qty: 1 on 08/08/2013 at [place] [facility] Left: Foot ORTHOHELIX SURG[employer] DESIGNS PANTS PRESSER-011-3 5-14 / / 4.0 X 3.0 Short [...] / / [place] Gold 4.0 - [id number] Implanted:Qty: 1 on 08/08/2013 at [place] [facility] Left: Foot ORTHOHELIX [employer] DESIGNS CSS-500-4 0A / / Plate Lps Alpha 2 Slot - [id number] Implanted:Qty: 1 on 08/08/2013 at [place] [facility] Left: Foot ORTHOHELIX SURGICAL DESIGNS MXL-002-2 A / / Screw Variable 3.5 X 12mm - [id number] Implanted:Qty: 1 on 08/08/2013 at [place] [facility] Left: Foot ORTHOHELIX SURG[employer] DESIGNS RAKESH-031-3 5-12 / / Screw Variable 3.5 X 18mm - [id number] Implanted:Qty: 1 on 08/08/2013 at [place] [facility] Left: Foot ORTHOHELIX SURGICAL DESIGNS RAKESH-031-3 5-18 / / documented as of this encounter Visit Diagnoses Diagnosis COPD, group B, by GOLD 2017 classification (HCC)- Primary Chronic respiratory failure with hypoxia (HCC) Chronic respiratory failure documented in this encounter Advance Directives * [...] Power of Attor elizabeth? No Care Teams Rolls Mill Operator Relationship Specialty Start Date End Date Ronald Cortes MD [address] [place] [address] PCP - General 06/10/02 documented as of this encounter
--- OUTSIDE RECORDS SUMMARY | 2024-03-03 23:08 | External Medical Summary | Summary of Care ---
Author Name Unknown Organization [facility] Address [address] [facility] [place] [address] Phone [phone] Care Team Providers Care Fireworks Maker Name Role Phone Ronald Cortes MD Primary Care Provider [phone] Encounter Details Date Type Department Care Team (Late st Contact Info) Description 02/13/2024 Orders Only PATIENT PORTAL DO NOT DELETE THIS DEPT USED BY BO STACY [id number] Allergies Active Allergy Reactions Criticality Noted Date Comments Bee Venom Anaphylaxis High 02/27/2006 Doxycycline Low 08/04/2023 Intolerant, GI upset documented as of this encounter (statuses as of 02/13/2024) Medications Medication Sig Dispensed Refills Start Date End Date Status CALCIUM + D 600-200 MG-UNIT PO TABS 1 BID 0 03/13/2006 Active MULTIVITAMINS PO TABS daily 0 03/13/2006 Active ACETAMINOPHEN 325 MG PO TABSIndications:INTE RFACED RESULT,Pneumothorax 2 Tab Oral Every 6 hours as needed for fever, pain, headache 1 Tab 0 07/27/2013 Active [place]-3 Fatty Acids (FISH OIL) 1000 MG Capsule [...] Cough. 54 g 3 02/08/2024 Active Tiotropium [place] Monohydrate 18 MCG Inhalation Capsule (Spiriva HandiHaler) [...] as of this encounter (statuses as of 02/13/2024) Active Problems Problem Noted Date Diagnosed Date History of atrial fibrillation 02/08/2024 Gait difficulty 02/08/2024 Chronic respiratory failure with hypoxia 024 COPD, group B, by GOLD 2017 classification 09/20 Overview: Per COPD GOLD Classification Acquired hypothyroidism 07/19/2023 History of coronary angioplasty with insertion o f stent 07/01/2023 Coronary artery disease invo lving tan[place] coronary artery of [place] heart without angina pectoris 07/01/2023 Hematuria of [...] as of this encounter (statuses as of 02/13/2024) Resolved Problems Problem Noted Date Diagnosed Date [...] as of this encounter (statuses as of 02/13/2024) Immunizations Name Administration Dates Next Due COVID-19, [...] Description 03/09/2024 6:20 PM EST Office Visit [facility] [address] [place] [address] Ronald Cortes MD [address] [place] [address] 04/28/2024 1:00 PM EST Office Visit [facility] [address] [place] [address] Hitesh Gordillo, DO [address] [place] [address] 05/23/2024 2:00 PM EST Office Visit Pulmonary Medicine, [facility] [address] [facility] [place] [address] Marbin Serrano MD [address] [place] [address] 06/07/2024 8:30 AM EST Office Visit Cardiology, [facility] [address] [facility] [place] [address] Pepe Lennon, DO [address] [facility] [place] [address] 07/13/2024 3:30 PM EDT Imaging Radiology, [place] [address] [facility] [place] [address] Scheduled Procedures Name Priority Associated Diagnoses Date/Ti me COLONOSCOPY FLEXIBLE PROXIMA L DIAGNOSTIC Recall Encounter for screening colonoscopy Health Maintenance Due Date Last Done Comments DISCUSS TOBACCO CESSATION (REFER TO SMARTSET #3295) 1950 Alpha-1 Antitrypsin 1967 Cologuard 1994 Sigmoidoscopy [...] D LEVEL ONCE IN A LIFETIME-USE SMARTSET# [id number] Completed 03/22/2015 Pneumococcal Vaccine: 65+ Years Completed [...] this encounter Medical Devices Implanted Type Area Citizen Participation Specialist Device Identifier Shelf Expiration Date Model / Serial / Lot Chip Cancellous [facility] [id number] - [id number] Implanted:Qty: 1 on 08/08/2013 at [place] [facility] [place] Tissue - Human Left: Foot MUSCULOSKELETAL TRANSPLANT FND 07/24/2015 [id number] / [id number] / Screw Nonlock 3.5 X 24 - [id number] Implanted:Qty: 1 on 08/08/2013 at [place] [facility] [place] Left: Foot ORTHOHELIX SURGICAL DESIGNS INVOICING SPECIALIST-011-3 5-24 / / Screw Locking 3.5 X 16 - [id number] Implanted:Qty: 2 on 08/08/2013 at [place] [facility] [place] Left: Foot ORTHOHELIX SURGICAL DESIGNS INVOICING SPECIALIST-021-3 5-16 / / Plate 6 Hole Beta Mxl-0026 - [id number] Implanted:Qty: 1 on 08/08/2013 at [place] [facility] [place] Left: Foot ORTHOHELIX SURG[employer] DESIGNS MXL-0026 / / Screw Locking 3.5 X 20 - [id number] Implanted:Qty: 1 on 08/08/2013 at [place] [facility] [place] Left: Foot ORTHOHELIX SURGICAL DESIGNS INVOICING SPECIALIST-021-3 5-20 / / Screw Nonlock 3.5 X 16 - [id number] Implanted:Qty: 1 on 08/08/2013 at [place] [facility] Left: Foot ORTHOHELIX SURGICAL DESIGNS INVOICING SPECIALIST-011-3 5-16 / / Screw Nonlock 3.5 X 18 - [id number] Implanted:Qty: 1 on 08/08/2013 at [place] [facility] Left: Foot ORTHOHELIX SURGICAL DESIGNS INVOICING SPECIALIST-011-3 5-18 / / Screw Nonlock 3.5 X 14 - [id number] Implanted:Qty: 1 on 08/08/2013 at [place] [facility] Left: Foot ORTHOHELIX SURGICAL DESIGNS INVOICING SPECIALIST-011-3 5-14 / / 4.0 X 3.0 Short Max Torque Implanted:Qty: 1 on 08/08/2013 at [place] [facility] [place] Left: Foot ORTHOHELIX SURGICAL DESIGNS MSD-010-4 0-030S / / 4.0 X 32.5 Short Max Torque Implanted:Qty: 1 on 08/08/2013 at [place] [facility] [place] Left: Foot MSD-010-4 0-325S / / 4.0 X 28 Short Max Torque Implanted:Qty: 1 on 08/08/2013 at [place] [facility] [place] Left: Foot ORTHOHELIX SURGICAL DESIGNS MSD-010-4 0-028S / / 4.0 X 22 Short Max Torque Implanted:Qty: 1 on 08/08/2013 at [place] [facility] [place] Left: Foot ORTHOHELIX SURGICAL DESIGNS MSD-010-4 0-022S / / [place] Gold 4.0 - [id number] Implanted:Qty: 1 on 08/08/2013 at [place] [facility] [place] Left: Foot ORTHOHELIX SURGICAL DESIGNS CSS-500-4 0A / / Plate Lps Alpha 2 Slot - [id number] Implanted:Qty: 1 on 08/08/2013 at [place] [facility] [place] Left: Foot ORTHOHELIX SURGICAL DESIGNS MXL-002-2 A / / Screw Variable 3.5 X 12mm - [id number] Implanted:Qty: 1 on 08/08/2013 at [place] [facility] [place] Left: Foot ORTHOHELIX SURGICAL DESIGNS RAKESH-031-3 5-12 / / Screw Variable 3.5 X 18mm - [id number] Implanted:Qty: 1 on 08/08/2013 at [place] [facility] [place] Left: Foot ORTHOHELIX SURGICAL DESIGNS RAKESH-031-3 5-18 [...] Power of Attor elizabeth? No Care Teams Fireworks Maker Relationship Specialty Start Date End Date Ronald Cortes MD [address] [place] [address] PCP - General 06/10/02 documented as of this encounter
--- OUTSIDE RECORDS SUMMARY | 2024-03-03 23:08 | External Medical Summary | Summary of Care ---
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 Comment: unemployed-caring for mother 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 Smoker 09/03/23. 5 cpd smoker. 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 (Adult - for ages 18 years and over): Not on file Housing Stability: Not on file Review of Systems Constitutional: Positive for fatigue. Negative for activity change, appetite change, chills, diaphoresis, fever and unexpected weight change. HENT: Negative for congestion. Respiratory: Positive for cough, chest tightness and shortness of breath. Negative for wheezing. Cardiovascular: Positive for chest pain (lt sided occ). Negative for palpitations and leg swelling. Gastrointestinal: Positive for constipation. Negative for abdominal distention, abdominal pain and vomiting. Endocrine: Negative. Genitourinary: Negative for dysuria and hematuria. Musculoskeletal: Positive for arthralgias and gait problem. Skin: Negative for color change. Neurological: Positive for dizziness, tremors, weakness (generalized) and light-headedness. Psychiatric/Behavioral: Positive for sleep disturbance. Negative for agitation and behavioral problems. The patient is nervous/anxious. Objective BP 100/58 | Pulse 76 | Temp 36.8 C (98.2 F) (Tympanic) | Resp 18 | Wt 54 kg (119 lb) | SpO2 92%Comment: 3L/min | BMI 22.48 kg/m | BSA 1.52 m Physical Exam Constitutional: General: She is not in acute distress. Appearance: Normal appearance. She is not ill-appearing, toxic-appearing or diaphoretic. HENT: Head: Normocephalic and atraumatic. Nose: Nose normal. Eyes: Extraocular Movements: Extraocular movements intact. Cardiovascular: Rate and Rhythm: Normal rate and regular rhythm. Pulses: Normal pulses. Heart sounds: Murmur heard. Pulmonary: Effort: Respiratory distress (O2) present. Breath sounds: No stridor. No wheezing, rhonchi or rales. Comments: Decreased BS Chest: Chest wall: No tenderness. Musculoskeletal: General: Tenderness present. Right lower leg: No edema. Left lower leg: No edema. Neurological: General: No focal deficit present. Mental Status: She is alert and oriented to person, place, and time. Psychiatric: Behavior: Behavior normal. Comments: Anxiety ASSESSMENT/PLAN: Enterogastritis (Primary) - CBC WITH WBC DIFFERENTIAL AND ANEMIA REFLEX WORKUP; Future; Expected date: 02/08/2024 - COMPREHENSIVE METABOLIC PANEL; Future; Expected date: 02/08/2024 - TSH WITH FREE T4 IF INDICATED; Future; Expected date: 02/08/2024 Risk and functional assessment Need for prophylactic vaccination and inoculation against influenza - DEXA SCAN/BONE MINERAL AXIAL; Future; Expected date: 02/08/2024 - INFLUENZA VAC., TRIVALENT, HD, PF, 65 AND ABOVE, 0.5 ML IM (FLUZONE HD) - COVID-19, MRNA-LNP, PF, 24-25, 30MCG/0.3ML, IM, 12YRS AND ABOVE (PFIZER) Dehydration - CBC WITH WBC DIFFERENTIAL AND ANEMIA REFLEX WORKUP; Future; Expected date: 02/08/2024 - COMPREHENSIVE METABOLIC PANEL; Future; Expected date: 02/08/2024 GUTIERREZ (acute kidney injury) (HCC) - CBC WITH WBC DIFFERENTIAL AND ANEMIA REFLEX WORKUP; Future; Expected date: 02/08/2024 - COMPREHENSIVE METABOLIC PANEL; Future; Expected date: 02/08/2024 HTN, goal below 150/90 COPD, group B, by GOLD 2017 classification (HCC) Tobacco use disorder Coronary artery disease involving caddo coronary artery of caddo heart without angina pectoris Gait difficulty - DURABLE MEDICAL EQUIPMENT Chronic respiratory failure with hypoxia (HCC) - DURABLE MEDICAL EQUIPMENT - CBC WITH WBC DIFFERENTIAL AND ANEMIA REFLEX WORKUP; Future; Expected date: 02/08/2024 - COMPREHENSIVE METABOLIC PANEL; Future; Expected date: 02/08/2024 Hospital discharge follow-up - DISCH MED RECON CUR MED LIS History of coronary angioplasty with insertion of stent History of atrial fibrillation Osteoporosis, unspecified osteoporosis type, unspecified pathological fracture presence - DEXA SCAN/BONE MINERAL AXIAL; Future; Expected date: 02/08/2024 Hypothyroidism, unspecified type - TSH WITH FREE T4 IF INDICATED; Future; Expected date: 02/08/2024 Other orders - Albuterol Sulfate HFA 108 (90 Base) MCG/ACT Inhalation Aerosol Solution; Inhale 2 Puffs by mouth every 4 hours as needed for Wheezing or Cough. - Tiotropium [place] Monohydrate 18 MCG Inhalation Capsule (Spiriva HandiHaler); Inhale 1 Capsule by mouth in the morning. INHALE THE CONTENTS OF 1 CAPSULE EVERY DAY VIA HANDIHALER (DO NOT SWALLOW). Check-out note: DME orders --> F/u blood tests in 2-3 wks F/u with PCP DMEs Cont current meds Marcelino Prado MD * Natalia Marr LPN - 02/08/2024 11:38 AM EDT Dexa scan ordered today. Provider aware. Natalia Marr LPN PRE - ADMINISTRATION DOCUMENTATION Are you experiencing any cold symptoms or fever? No Have you had Guillain-L[place] Syndrome (an illness that causes paralysis) within the last 6 weeks? No Have you had the flu shot in the past? YES Have you ever had a reaction to the flu shot? No Natalia Marr LPN, 02/08/2024 11:38 AM Immunization Administration Documentation Time Out Procedure Performed: Yes Patient Identified (Ask Name/Date of ): Yes Does the patient have a fever greater than 101 degrees today? No Patient allergic to latex? No VFC Stock: No Immunization(s) verified: Yes, Immunization Name: Flu and Covid 19, VIS Sheet(s) given: Yes Verified Side and Site: Yes Verified Shot(s) with Parent(s)/Patient: Yes documented in this encounter Nursing Notes * Natalia Marr LPN - 02/08/2024 11:20 AM EDT Chief Complaint Patient presents with Hospital Follow-Up Pt here today due to hospital discharge follow up documented in this encounter Plan of Treatment Upcoming Encounters Date Type Department Care Team (Late st Contact Info) Description 03/09/2024 6:20 PM EST Office Visit [facility] [address] [place] [address] Ronald Cortes MD [address] [place] [address] 05/23/2024 2:00 PM EST Office Visit [facility] Medicine, [facility] [address] [facility] [place] [address] Mar[facility]err[facility] [address] [facility] [address] 06/07/2024 8:30 AM EST Office Visit Cardiology, [facility] [address] [facility] [place] [address] Pepe Lennon DO [address] [facility] [place] [address] 07/13/2024 3:30 PM EDT Imaging Radiology, [address] [place] [address] Scheduled Orders Name Type Priority Associated Diagnoses Orde r Schedule DEXA SCAN/BONE MINERAL AXIAL Medical Imaging Routine Osteoporosis, unspecified osteoporosis type, unspecified pathological fracture presence Need for prophylactic vaccination and inoculation against influenza Expected: 02/08/2024 (Approximate), Expires: 03/10/2025 CBC WITH WBC DIFFERENTIAL AND ANEMIA REFLEX WORKUP Lab Routine Enterogastritis Dehydration GUTIERREZ (acute kidney injury) (HCC) Chronic respiratory failure with hypoxia (HCC) Expected: 02/08/2024 (Approximate), Expires: 02/07/2025 COMPREHENSIVE METABOLIC PANEL Lab Routine Enterogastritis Dehydration GUTIERREZ (acute kidney injury) (HCC) Chronic respiratory failure with hypoxia (HCC) Expected: 02/08/2024 (Approximate), Expires: 02/07/2025 TSH WITH FREE T4 IF INDICATED Lab Routine Enterogastritis Hypothyroidism, unspecified type Expected: 02/08/2024 (Approximate), Expires: 02/07/2025 Scheduled Procedures Name Priority Associated Diagnoses Date/Ti me COLONOSCOPY FLEXIBLE PROXIMA L DIAGNOSTIC Recall Encounter for screening colonoscopy Health Maintenance Due Date Last Done Comments DISCUSS TOBACCO CESSATION (REFER TO SMARTSET #6706) 1950 Alpha-1 Antitrypsin 1967 Cologuard 1994 Sigmoidoscopy [...] D LEVEL ONCE IN A LIFETIME-USE SMARTSET# 62433 Completed 03/22/2015 Pneumococcal Vaccine: 65+ Years Completed [...] this encounter Medical Devices Implanted Type Area Electric Lineman Device Identifier Shelf Expiration Date Model / Serial / Lot Chip Cancellous [facility] [id number] - [id number] Implanted:Qty: 1 on 08/08/2013 at [place] [facility] Tissue - Human Left: Foot MUSCULOSKELETAL TRANSPLANT FND 07/24/2015 [id number] / [id number] / Screw Nonlock 3.5 X 24 - [id number] Implanted:Qty: 1 on 08/08/2013 at OR [facility] Left: Foot ORTHOHELIX SURGICAL DESIGNS AIRPORT OPERATIONS CREW MEMBER-011-3 5-24 / / Screw Locking 3.5 X 16 - [id number] Implanted:Qty: 2 on 08/08/2013 at OR [facility] Left: Foot ORTHOHELIX SURGICAL DESIGNS AIRPORT OPERATIONS CREW MEMBER-021-3 5-16 / / Plate 6 Hole Beta Mxl-0026 - [id number] Implanted:Qty: 1 on 08/08/2013 at OR [facility] Left: Foot ORTHOHELIX SURGICAL DESIGNS MXL-0026 / / Screw Locking 3.5 X 20 - [id number] Implanted:Qty: 1 on 08/08/2013 at OR [facility] Left: Foot ORTHOHELIX SURGICAL DESIGNS AIRPORT OPERATIONS CREW MEMBER-021-3 5-20 / / Screw Nonlock 3.5 X 16 - [id number] Implanted:Qty: 1 on 08/08/2013 at OR [facility] Left: Foot ORTHOHELIX SURGICAL DESIGNS AIRPORT OPERATIONS CREW MEMBER-011-3 5-16 / / Screw Nonlock 3.5 X 18 - [id number] Implanted:Qty: 1 on 08/08/2013 at OR [facility] Left: Foot ORTHOHELIX SURGICAL DESIGNS AIRPORT OPERATIONS CREW MEMBER-011-3 5-18 / / Screw Nonlock 3.5 X 14 - [id number] Implanted:Qty: 1 on 08/08/2013 at OR [facility] Left: Foot ORTHOHELIX SURGICAL DESIGNS AIRPORT OPERATIONS CREW MEMBER-011-3 5-14 / / 4.0 X 3.0 Short Max Torque Implanted:Qty: 1 on 08/08/2013 at OR [facility] Left: Foot ORTHOHELIX SURGICAL DESIGNS MSD-010-4 0-030S / / 4.0 X 32.5 Short Max Torque Implanted:Qty: 1 on 08/08/2013 at OR [facility] Left: Foot MSD-010-4 0-325S / / 4.0 X 28 Short Max Torque Implanted:Qty: 1 on 08/08/2013 at OR [facility] Left: Foot ORTHOHELIX SURGICAL DESIGNS MSD-010-4 0-028S / / 4.0 X 22 Short Max Torque Implanted:Qty: 1 on 08/08/2013 at OR [facility] Left: Foot ORTHOHELIX SURGICAL DESIGNS MSD-010-4 0-022S / / [place] Gold 4.0 - [id number] Implanted:Qty: 1 on 08/08/2013 at OR [facility] Left: Foot ORTHOHELIX SURGICAL DESIGNS CSS-500-4 0A / / Plate Lps Alpha 2 Slot - [id number] Implanted:Qty: 1 on 08/08/2013 at OR [facility] Left: Foot ORTHOHELIX SURGICAL DESIGNS MXL-002-2 A / / Screw Variable 3.5 X 12mm - [id number] Implanted:Qty: 1 on 08/08/2013 at OR [facility] Left: Foot ORTHOHELIX SURGICAL DESIGNS RAKESH-031-3 5-12 / / Screw Variable 3.5 X 18mm - [id number] Implanted:Qty: 1 on 08/08/2013 at OR [facility] Left: Foot ORTHOHELIX SURGICAL DESIGNS RAKESH-031-3 5-18 / / documented as of this encounter Visit Diagnoses Diagnosis Enterogastritis- Primary Other and unspecified noninfectious gastroenteritis and colitis Risk and functional assessment Screening for unspecified condition Need for prophylactic vaccination and inoculation against influenza Dehydration GUTIERREZ (acute kidney injury) (HCC) Acute kidney failure, unspecified HTN, goal below 150/90 COPD, group B, by GOLD 2017 classification (HCC) Tobacco use disorder Coronary artery disease involving caddo coronary artery of caddo heart without angina pectoris Gait difficulty Abnormality of gait Chronic respiratory failure with hypoxia (HCC) Chronic respiratory failure Hospital discharge follow-up Other follow-up examination History of coronary angioplasty with insertion of stent History of atrial fibrillation Personal history of other diseases of circulatory system Osteoporosis, unspecified osteoporosis type, unspecified pathological fracture presence Hypothyroidism, unspecified type documented in this encounter Advance Directives * [...] Power of Attor elizabeth? No Care Teams Search Strategist Relationship Specialty Start Date End Date Ronald Cortes MD [address] [place] [address] PCP - General 06/10/02 documented as of this encounter"
--- OUTSIDE RECORDS SUMMARY | 2024-03-03 23:08 | External Medical Summary | Summary of Care ---
Author Name Unknown Organization [facility] Address [address] [place] [address] Phone [phone] Care Team Providers Care Hadoop Admin Name Role Phone Ronald Cortes MD Primary Care Provider [phone] Reason for Referral * Evaluate & Treat - Unlimited Visits (Within 30 days (routine)) - Authorized Specialty Diagnoses / Procedures Referred By Daja damon Referred To Contact Ophthalmology Diagnoses Senile ectropion Tremaine Rios, ALDO [address] [facility] [place] [address] Referral ID Status Reason Start Date Expiration Date Visits Requested Visits Authorized [id number] Authorized Specialty Services Required 4 [phone] Question Answer Referral Priority Within 30 days (routine) Where should this appointment be scheduled? [facility] Referring for: Ophthalmology Conditions Ophthalmology Conditions Other Ophthalmology (comment) Comments Senile ectropion Encounter Details Date Type Department Care Team (Late st Contact Info) Description 02/11/2024 Orders Only Access Center, [address] Ext *DO NOT REMOVE THIS DEPARTMENT* [place] [address] Request, External Referral Senile ectropion* Allergies Active Allergy Reactions Criticality Noted Date Comments Bee Venom Anaphylaxis High 02/27/2006 Doxycycline Low 08/04/2023 Intolerant, GI upset documented as of this encounter (statuses as of 02/11/2024) Medications Medication Sig Dispensed Refills Start Date End Date Status CALCIUM + D 600-200 MG-UNIT PO TABS 1 BID 0 03/13/2006 Active MULTIVITAMINS PO TABS daily 0 03/13/2006 Active ACETAMINOPHEN 325 MG PO TABSIndications:INTE RFACED RESULT,Pneumothorax 2 Tab Oral Every 6 hours as needed for fever, pain, headache 1 Tab 0 07/27/2013 Active [place]-3 Fatty Acids (FISH OIL) 1000 MG Capsule [...] Cough. 54 g 3 02/08/2024 Active Tiotropium [place] Monohydrate 18 MCG Inhalation Capsule (Spiriva HandiHaler) [...] as of this encounter (statuses as of 02/11/2024) Active Problems Problem Noted Date Diagnosed Date History of atrial fibrillation 02/08/2024 Gait difficulty 02/08/2024 Chronic respiratory failure with hypoxia 024 COPD, group B, by GOLD 2017 classification 09/20 Overview: Per COPD GOLD Classification Acquired hypothyroidism 07/19/2023 History of coronary angioplasty with insertion o f stent 07/01/2023 Coronary artery disease invo lving [place] coronary artery of [place] heart without angina pectoris 07/01/2023 Hematuria of [...] as of this encounter (statuses as of 02/11/2024) Resolved Problems Problem Noted Date Diagnosed Date [...] as of this encounter (statuses as of 02/11/2024) Immunizations Name Administration Dates Next Due COVID-19, MRNA-LNP, 24-25, P R, 30MCG/0.3ML, IM, 12YRS AND ABOVE (Pfizer-Comirnaty) 02/08/2024 Pneumococcal Conjugate Vacc, 13 Valent (Prevnar) 11/17/2014 Pneumococcal Polysaccharide PPV23 (Pneumovax) 12/31/2016,06/10/2010 Season Influenza, Quad, PF, Adjuvanted, 65+ Yrs, IM (FLUAD) 01/24/2020 Seasonal Influenza Vac., MDV , IM, 0.5 mL (Fluzone) 12/28/2013,01/19/2013,01/15/2012,01/11,02/11/2010,05/12/2008,05/12/19(Deferred: Patient Refused),03/15/2007,02/13/2006 Seasonal Influenza, High Dos e, [...] 0.6 70.4 Started: 09/02/1973 Smokeless Tobacco: Never Comments:/2 ppd. Smoker 08/12 07/04. 5 cpd smoker. [...] Visit [facility] [address] [place] [address] Ronald Cortes MD [address] [place] [address] 04/28/2024 1:00 PM EST Office Visit [facility] [address] [facility] [address] [address] Hitesh Gordillo DO [address] [place] [address] 05/23/2024 2:00 PM EST Office Visit Pulmonary Medicine, [facility] [address] [facility] [place] [address] Marbin Serrano MD [address] [place] [address] 06/07/2024 8:30 AM EST Office Visit Cardiology, [facility] [address] [place] [address] Pepe Lennon, [address] [place] [address] 07/13/2024 3:30 PM EDT Imaging Radiology, [facility] [address] [facility] [place] [address] Scheduled Procedures Name Priority Associated Diagnoses Date/Ti me COLONOSCOPY FLEXIBLE PROXIMA L DIAGNOSTIC Recall Encounter for screening colonoscopy Scheduled Referrals Name Type Priority Associated Diagnoses Orde r Schedule ADULT/PEDS OPHTHALMOLOGY/OPTOM ETRY REFERRAL OP Referral Within 30 days (routine) Senile ectropion Ordered: 02/11/2024 Health Maintenance Due Date Last Done Comments [...] D LEVEL ONCE IN A LIFETIME-USE SMARTSET# 23946 Completed 03/22/2015 Pneumococcal Vaccine: 65+ Years Completed [...] this encounter Medical Devices Implanted Type Area Feather Shaper Device Identifier Shelf Expiration Date Model / Serial / Lot Chip Cancellous [facility] [id number] - [id number] Implanted:Qty: 1 on 08/08/2013 at [place] [facility] Tissue - Human Left: Foot MUSCULOSKELETAL TRANSPLANT FND 07/24/2015 [id number] / [id number] / Screw Nonlock 3.5 X 24 - [id number] Implanted:Qty: 1 on 08/08/2013 at [place] [facility] Left: Foot ORTHOHELIX SURGICAL DESIGNS MANUFACTURING ENGINEERING DIRECTOR-011-3 5-24 / / Screw Locking 3.5 X 16 - [id number] Implanted:Qty: 2 on 08/08/2013 at [place] [facility] Left: Foot ORTHOHELIX SURGICAL DESIGNS MANUFACTURING ENGINEERING DIRECTOR-021-3 5-16 / / Plate 6 Hole Beta Mxl-0026 - [id number] Implanted:Qty: 1 on 08/08/2013 at [place] [facility] Left: Foot ORTHOHELIX SURGICAL DESIGNS MXL-0026 / / Screw Locking 3.5 X 20 - [id number] Implanted:Qty: 1 on 08/08/2013 at [place] [facility] Left: Foot ORTHOHELIX SURGICAL DESIGNS MANUFACTURING ENGINEERING DIRECTOR-021-3 5-20 / / Screw Nonlock 3.5 X 16 - [id number] Implanted:Qty: 1 on 08/08/2013 at [place] [facility] Left: Foot ORTHOHELIX SURGICAL DESIGNS MANUFACTURING ENGINEERING DIRECTOR-011-3 5-16 / / Screw Nonlock 3.5 X 18 - [id number] Implanted:Qty: 1 on 08/08/2013 at [place] [facility] Left: Foot ORTHOHELIX SURGICAL DESIGNS MANUFACTURING ENGINEERING DIRECTOR-011-3 5-18 / / Screw Nonlock 3.5 X 14 - [id number] Implanted:Qty: 1 on 08/08/2013 at [place] [facility] Left: Foot ORTHOHELIX SURGICAL DESIGNS MANUFACTURING ENGINEERING DIRECTOR-011-3 5-14 / / 4.0 X 3.0 Short Max Torque Implanted:Qty: 1 on 08/08/2013 at [place] [facility] Left: Foot ORTHOHELIX SURGICAL DESIGNS MSD-010-4 0-030S / / 4.0 X 32.5 Short Max Torque Implanted:Qty: 1 on 08/08/2013 at [place] [facility] Left: Foot MSD-010-4 0-325S / / 4.0 X 28 Short Max Torque Implanted:Qty: 1 on 08/08/2013 at [place] [facility] Left: Foot ORTHOHELIX SURGICAL DESIGNS MSD-010-4 0-028S / / 4.0 X 22 Short Max Torque Implanted:Qty: 1 on 08/08/2013 at [place] [facility] Left: Foot ORTHOHELIX SURGICAL DESIGNS MSD-010-4 0-022S / / [place] Gold 4.0 - [id number] Implanted:Qty: 1 on 08/08/2013 at [place] [facility] Left: Foot ORTHOHELIX SURGICAL DESIGNS CSS-500-4 0A / / Plate Lps Alpha 2 Slot - [id number] Implanted:Qty: 1 on 08/08/2013 at [place] [facility] Left: Foot ORTHOHELIX SURGICAL DESIGNS MXL-002-2 A / / Screw Variable 3.5 X 12mm - [id number] Implanted:Qty: 1 on 08/08/2013 at [place] [facility] Left: Foot ORTHOHELIX SURGICAL DESIGNS RAKESH-031-3 5-12 / / Screw Variable 3.5 X 18mm - [id number] Implanted:Qty: 1 on 08/08/2013 at [facility] Left: Foot ORTHOHELIX SURGICAL DESIGNS RAKESH-031-3 08-28 documented as of this encounter Visit Diagnoses Diagnosis Senile ectropion- Primary documented in this encounter Advance Directives * [...] Power of Attor elizabeth? No Care Teams Hadoop Admin Relationship Specialty Start Date End Date Ronald Cortes MD [address] [place] [address] PCP - General 06/10/02 documented as of this encounter
--- OUTSIDE RECORDS SUMMARY | 2024-03-03 23:09 | External Medical Summary | Summary of Care ---
Author Name Unknown Organization [facility] Address [address] [place] [address] Phone [phone] Care Team Providers Care Service Center Appraiser Name Role Phone Ronald Cortes MD Primary Care Provider [phone] Reason for Visit * Reason Onset Date Comments Hospital Follow-Up 02/03/2024 SUNITHA ([facility]) Encounter Details Date Type Department Care Team ([facility] st Contact Info) Description 02/03/2024 Telephone [place] [address] [place] [address] Ping Payan RN Hospital Follow-Up (SUNITHA ([facility])) Allergies Active Allergy Reactions Criticality Noted Date Comments Bee Venom Anaphylaxis High 02/27/2006 Doxycycline Low 08/04/2023 Intolerant, GI upset documented as of this encounter (statuses as of 02/03/2024) Medications Medication Sig Dispensed Refills Start Date End Date Status CALCIUM + D 600-200 MG-UNIT PO TABS 1 BID 0 6 Active MULTIVITAMINS PO TABS daily 0 6 Active ACETAMINOPHEN 325 MG PO TABSIndications:INT ERFACED RESULT,Pneumothorax 2 Tab Oral Every 6 hours as needed for fever, pain, headache 1 Tab 0 4 Active [place]-3 Fatty Acids (FISH OIL) 1000 MG Capsule [...] on 10/09/2023 Gabapentin 300 MG Oral Capsule (Neurontin)Indicati ons:Post-traumatic [...] Pain, Moderate. 45 Tablet 4 Active Tiotropium [place] Monohydrate 18 MCG Inhalation Capsule (Spiriva HandiHaler) [...] and 2 Capsules before bedtime. 4 Active Spironolactone 25 MG Oral Tablet (Aldactone) Take 1 Tablet by mouth in the morning. 02/03/20 Discontinu ed(Dischar ged) Losartan Potassium 50 MG Oral Tablet (Cozaar) Take 1 Tablet by mouth in the morning. 02/03/20 Discontinu ed(Dischar ged) Amoxicillin-Pot Clavulanate 875-125 MG Oral Tablet (Augmentin) TAKE 1 TABLET BY MOUTH EVERY 12 HOURS FOR 4 DAYS 4 02/03/20 Discontinu ed(Patient preference /discontin uation) Hospital, Clinic, [...] as of this encounter (statuses as of 02/03/2024) Active Problems Problem Noted Date Diagnosed Date COPD, group B, by GOLD 2017 classification 09/20 Overview: Per COPD GOLD Classification Acquired hypothyroidism 07/19/2023 History of coronary angioplasty with insertion o f stent 07/01/2023 Coronary artery disease invo lving ely shoshone coronary artery of ely shoshone heart without angina pectoris 07/01/2023 Hematuria of [...] as of this encounter (statuses as of 02/03/2024) Resolved Problems Problem Noted Date Diagnosed Date [...] as of this encounter (statuses as of 02/03/2024) Immunizations Name Administration Dates Next Due Pneumococcal Conjugate Vacc, 13 Valent (Prevnar) 11/17/2014 Pneumococcal Polysaccharide PPV23 (Pneumovax) 12/31/2016,06/10/2010 Season Influenza, Quad, PF, Adjuvanted, 65+ Yrs, IM (FLUAD) 01/24/2020 Seasonal Influenza Vac., MDV , IM, 0.5 mL (Fluzone) 12/28/2013,01/19/2013,01/15/2012,01/11,02/11/2010,05/12/2008,05/12/19 09(Deferred: Patient Refused),03/15/2007,02/13/2006 Seasonal Influenza, PF, 6 M & above, [...] Telephone Encounter - Ping Payan RN - 02/03/2024 2:09 PM EDT Images from the original note were not included. Transitions of Care Note Reason for Referral:Recent Admission Phone visit for follow up: SUNITHA Admitted to: [facility], Date: Discharged to: Home with Home services, Date: 02/02/2024 Diagnosis driving hospitalization: Acute Dehydration, UTI Source/Contact: Patient SUBJECTIVE Consent: Verbal consent for review of hospital discharge: Yes REVIEW OF SYSTEMS Patient/Other Reports: Current patient/caregiver problems or concerns: Doing well at home, did note a black stool last night. States this is the first time this has happened. Wearing O2 2L/NC all the time now. Up and around, has rollator walker but does not use. CV: Denies problems Pulmonary: Denies problems Chills/Sweats/Fever:Denies chills/sweats Denies fever Appetite:Has had little appetite for some time, eating small meals more frequently, staying hydrated Current diet: Heart Healthy Bowel: BM last night, noted to be black Bladder: denies problems Wound (If applicable): N/A Pain:Denies Sleep:Problematic-tossed and turned last night FUNCTIONAL STATUS: ADL'S: Needs Assistance With:Bathing IADL'S: Needs Assistance With:Grocery Shopping, Cooking food, and Routine Housework Cognitive and Mental Health: denies problems, alert and oriented x 3, and able to communicate, understand instructions, process information. MEDICATION RECONCILIATION Medications: Discharge med list reviewed with patient or caregiver ASSESSMENT Medication Risk Assessment: Missing Refills Requesting refill on Pantoprazole Pharmacy did not give her the Azithromycin - will call Did patient fail outpatient treatment? No Discharge instructions available for review? Yes PLAN Symptom Monitoring Interventions:Member/caregiver education - signs and symptoms to contact PrimaryCare (DO NOT DELETE-Three mcgarry symptoms patient is to report to PCP) 1. Chest Pain/SOB 2. Fever/Chills 3. Continued black stool Ostrich FarmerMetal Annealer of Care interventions/Action Plan: 5 - 7 day follow-up with PCP in place - Date: PCP appointment 02/08/2024 Educated on role of SUNITHA completed with patient/caregiver. Educated patient/caregiver on patient right to have input on SUNITHA plan of care. Verification of Home Health/DME if indicated: YES [facility] Identified Care Gaps: Yes Care Gaps closed this call: Appointment made or confirmed and Transition of Care follow-up communication Re-evaluation of Plan of Care and progress towards goals achievement: Patient education this visit: Verbal, Confirmed PCP appointment 02/08/2024 Plan - instructed to call Primary Care Provider with change in symptoms or as needed before next follow-up, discharge needs met, verbalizes understanding and agrees with plan. Dr. Cortes notified of Patient's report of black stool. Pharmacy called regarding Azithromycin - they need clarification from physician. [facility] Nurse Coordinator notified. Patient to take 1 last dose of Azithromycin - they will call and clarify with pharmacy. 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 Ping Payan, RN documented in this encounter Plan of Treatment Upcoming Encounters Date Type Department Care Team (Late st Contact Info) Description 02/08/2024 11:40 AM EDT Office Visit [facility] [address] [facility] [address] Marcelino Prado MD [address] [facility] [place] [address] 03/09/2024 6:20 PM EST Office Visit [facility] [address] [facility] [place] [address] [facility] Cortes [facility] [address] [facility] [address] 05/23/2024 2:00 PM EST Office Visit Pulmonary Medicine, [facility] [address] [place] [address] Marbin Serrano MD [address] [place] [address] 06/07/2024 8:30 AM EST Office Visit Cardiology, [facility] [address] [place] [address] Pepe Lennon, [address] [place] [address] Scheduled Procedures Name Priority Associated Diagnoses Date/Ti [...] D LEVEL ONCE IN A LIFETIME-USE SMARTSET# 73367 Completed 03/22/2015 Pneumococcal Vaccine: 65+ Years Completed [...] this encounter Medical Devices Implanted Type Area Creping Machine Operator Helper Device Identifier Shelf Expiration Date Model / Serial / Lot Chip Cancellous c [id number] - [id number] [place] [facility] [place] Left: Foot MUSCULOSKELETAL TRANSPLANT FND 07/24/2015 [id number] / [id number] / Screw Nonlock 3.5 X 24 - [id number] Implanted:Qty: 1 [place] [facility] [place] Foot ORTHOHELIX SURGICAL DESIGNS FINISHING ROOM SUPERVISOR-011-3 5-24 / / Screw Locking 3.5 X 16 - [id number] Implanted:Qty: 2 [place]08[place] [facility] [place]: Foot ORTHOHELIX SURGICAL DESIGNS FINISHING ROOM SUPERVISOR-021-3 5-16 / / Plate 6 Hole Beta Mxl-0026 - [id number] Implanted:Qty: 1 [place] 08[place]08[place]2013 [place] [facility] [place]: Foot ORTHOHELIX SURGICAL DESIGNS MXL-0026 / / Screw Locking 3.5 X 20 - [id number] Implanted:Qty: 1 on 08/08/2013 [place] [facility] [place]: Foot ORTHOHELIX SURGICAL DESIGNS FINISHING ROOM SUPERVISOR-021-3 5-20 / / Screw Nonlock 3.5 X 16 - [id number] Implanted:Qty: 1 on 08[place]08/2013 [place] [facility] [place]: Foot ORTHOHELIX SURGICAL DESIGNS FINISHING ROOM SUPERVISOR-011-3 5-16 / / Screw Nonlock 3.5 X 18 - [id number] Implanted:Qty: 1 on 08[place]08/2013 [place] [facility] [place]: Foot ORTHOHELIX SURGICAL DESIGNS FINISHING ROOM SUPERVISOR-011-3 5-18 / / Screw Nonlock 3.5 X 14 - [id number] Implanted:Qty: 1 on 08/08/2013 [place] [facility] [place]: Foot ORTHOHELIX SURGICAL DESIGNS FINISHING ROOM SUPERVISOR-011-3 5-14 / / 4.0 X 3.0 Short Max Torque Implanted:Qty: 1 on 08[place]08[place]2013 [place] [facility] [place]: Foot ORTHOHELIX SURGICAL DESIGNS MSD-010-4 0-030S / / 4.0 X 32.5 Short Max Torque Implanted:Qty: 1 on 08/08/2013 [place] [facility] [place]: Foot MSD-010-4 0-325S / / 4.0 X 28 Short Max Torque Implanted:Qty: 1 on 08/08/2013 [place] [facility] [place]: Foot ORTHOHELIX SURGICAL DESIGNS MSD-010-4 0-028S / / 4.0 X 22 Short Max Torque Implanted:Qty: 1 on 08/08/2013 [place] [facility] [place]: Foot ORTHOHELIX SURGICAL DESIGNS MSD-010-4 0-022S / / [place] Gold 4.0 - [id number] Implanted:Qty: 1 on 08/08/2013 [place] [facility] [place]: Foot ORTHOHELIX SURGICAL DESIGNS CSS-500-4 0A / / Plate Lps Alpha 2 Slot - [id number] Implanted:Qty: 1 on 08/08/2013 [place] [facility] [place]: Foot ORTHOHELIX SURGICAL DESIGNS MXL-002-2 A / / Screw Variable 3.5 X 12mm - [id number] Implanted:Qty: 1 on 08/08/2013 [place] [facility] [place]: Foot ORTHOHELIX SURGICAL DESIGNS RAKESH-031-3 5-12 / / Screw Variable 3.5 X 18mm - [id number] Implanted:Qty: 1 on 08/08/2013 at [facility] Left: Foot ORTHOHELIX SURGICAL DESIGNS RAKESH-031-3 08-28 [...] Power of Attor elizabeth? No Care Teams Service Center Appraiser Relationship Specialty Start Date End Date Ronald Cortes MD [address] [place] [address] PCP - General 06/10/02 documented as of this encounter
--- OUTSIDE RECORDS SUMMARY | 2024-03-03 23:09 | External Medical Summary | Summary of Care ---
Author Name Unknown Organization [facility] Address [address] [place] [address] Phone [phone] Care Team Providers Care Environmental Engineering Aide Name Role Phone Ronald Cortes MD Primary Care Provider [phone] Reason for Visit * Reason Onset Date Comments Medication Question 02/03/2024 Encounter Details Date Type Department Care Team (Late st Contact Info) Description 02/03/2024 Telephone [facility] [address] [place] [address] Ronald Cortes MD [address] [place] [address] Medication Question Allergies Active Allergy Reactions Criticality Noted Date Comments Bee Venom Anaphylaxis High 02/27/2006 Doxycycline Low 08/04/2023 Intolerant, GI upset documented as of this encounter (statuses as of 02/05/2024) Medications Medication Sig Dispensed Refills Start Date End Date Status CALCIUM + D 600-200 MG-UNIT PO TABS 1 BID 0 6 Active MULTIVITAMINS PO TABS daily 0 6 Active ACETAMINOPHEN 325 MG PO TABSIndications:INT ERFACED RESULT,Pneumothorax 2 Tab Oral Every 6 hours as needed for fever, pain, headache 1 Tab 0 4 Active [place]-3 Fatty Acids (FISH OIL) 1000 MG Capsule [...] Pain, Moderate. 45 Tablet 4 Active Tiotropium [place] Monohydrate 18 MCG Inhalation Capsule (Spiriva HandiHaler) [...] Tablet by mouth in the morning. Active Pantoprazole Sodium 40 MG Oral Tablet Delayed Release (Protonix) Take 1 Tablet by mouth in the morning. 02/03/20 24 Discontinu ed(Refill) Hospital, Clinic, or Other [...] as of this encounter (statuses as of 02/05/2024) Active Problems Problem Noted Date Diagnosed Date COPD, group B, by GOLD 2017 classification 09/20 Overview: Per COPD GOLD Classification Acquired hypothyroidism 07/19/2023 History of coronary angioplasty with insertion o f stent 07/01/2023 Coronary artery disease invo lving blackfeet coronary artery of blackfeet heart without angina pectoris 07/01/2023 Hematuria of [...] as of this encounter (statuses as of 02/05/2024) Resolved Problems Problem Noted Date Diagnosed Date [...] as of this encounter (statuses as of 02/05/2024) Immunizations Name Administration Dates Next Due Influenza, Whole Virus 01/28/1999 Pneumococcal Conjugate Vacc, 13 Valent (Prevnar) 11/17/2014 Pneumococcal Polysaccharide PPV23 (Pneumovax) 12/31/2016,06/10/2010 Season Influenza, Quad, PF, Adjuvanted, 65+ Yrs, IM (FLUAD) 01/24/2020 Seasonal Influenza Vac., MDV , IM, 0.5 mL (Fluzone) 12/28/2013,01/19/2013,01/15/2012,01/11,02/11/2010,05/12/2008,05/12/19 09(Deferred: Patient Refused),03/15/2007,02/13/2006 Seasonal Influenza Virus Vac cine, Unspecified Formulation 02/28/1998 Seasonal Influenza, PF, 6 M & above, IM , (FluLaval or Fluzone) 12/27/2018,12/21/2017,12/31/2016 Seasonal Influenza, Quadriva lent Hd (Fluzone Hd) 03/14/2021 Seasonal Influenza, Quadriva lent, No Preserve, IM 03/22/2015 03/22/2016 TD - Tetanus/Diptheria (ADULT) 07/16/1999 TD, Preservative Free 09/12/2021 TDAP, Age 7 and older, IM (Adacel) 06/10/2010 Tetanus Toxid Adsorbed 11/19/1978 Varicella Zoster [...] as of this encounter Miscellaneous Notes * Addendum Note - Jada Payan RN - 02/05/2024 3:48 PM EDTAddended by: JADA PAYAN on: 02/05/2024 03:48 PM Modules accepted: Orders * Telephone Encounter - Jada Payan RN - 02/05/2024 3:47 PM EDT Amiodarone added to med list * Telephone Encounter - Ronald Cortes MD - 02/03/2024 7:36 PM EDT Looks like [facility] knew she was on Amiodarone as of 12/07/23. Will continue Amiodarone 200mg daily. Not sure how long she has been taking this but likely started when she was hospitalized [facility] 2023 * Telephone Encounter - Jada Payan RN - 02/03/2024 3:52 PM EDT Images from the original note were not included. Provider to address: SUNITHA completed for patient discharged from [facility] 02/02/2024 for Acute dehydration, UTI Per Discharge medication list, patient noted to be on Amiodarone. Not on epic medication list. Patient and daughter checked medication and she is taking this. Please clarify if patient is to be on Amiodarone. Patient is also asking for refill on Pantoprazole. Pended for PCP review. Reason for Call: Medication Question Contact: Telephone Call Contact Type: Medication Provider In-Basket: No Outcome: See above Face to face time spent with Patient (minutes): 0 Total Time including non face to face (minutes): 10 documented in this encounter Plan of Treatment Upcoming Encounters Date Type Department Care Team (Late st Contact Info) Description 02/08/2024 11:40 AM EDT Office Visit [place] [address] [place] [id number] Marcelino Prado MD [address] [place] [address] 03/09/2024 6:20 PM EST Office Visit [facility] [address] [place] [address] Ronald Cortes MD [address] [place] [address] 05/23/2024 2:00 PM EST Office Visit Pulmonary Medicine, [facility] [address] [facility] [place] [address] Marbin Serrano MD [address] [place] [address] 06/07/2024 8:30 AM EST Office Visit Cardiology, [facility] [address] [facility] [place] [address] Pepe Lennon DO [address] [facility] [place] [address] Scheduled Procedures Name Priority Associated Diagnoses Date/Ti me COLONOSCOPY FLEXIBLE PROXIMA L DIAGNOSTIC Recall Encounter for screening colonoscopy Health Maintenance Due Date Last Done Comments DISCUSS TOBACCO CESSATION (REFER TO SMARTSET #2876) 1950 Alpha-1 Antitrypsin 1967 Cologuard 1994 Sigmoidoscopy [...] D LEVEL ONCE IN A LIFETIME-USE SMARTSET# 51883 Completed 03/22/2015 Pneumococcal Vaccine: 65+ Years Completed [...] this encounter Medical Devices Implanted Type Area Electrical Appliance Repairer Device Identifier Shelf Expiration Date Model / Serial / Lot Chip Cancellous [facility] [id number] - [id number] [place]ed:[place] 1 [place] [facility] [place] Left: Foot MUSCULOSKELETAL TRANSPLANT FND 07/24/2015 [id number] / [id number] / Screw Nonlock 3.5 X 24 - [id number] Implanted:Qty[place] 1 [place]08[place] [facility] [place] Foot ORTHOHELIX SURGICAL DESIGNS SAWMILL MOULDER OPERATOR-011-3 5-24 / / Screw Locking 3.5 X 16 - [id number] Implanted:Qty: 2 [place] 08[place]08[place] [facility] [place] Foot ORTHOHELIX SURGICAL DESIGNS SAWMILL MOULDER OPERATOR-021-3 5-16 / / Plate 6 Hole Beta Mxl-0026 - [id number] Implanted:Qty[place] 1 [place] 08[place]08[place] [facility] [place] Foot ORTHOHELIX SURGICAL DESIGNS MXL-0026 / / Screw Locking 3.5 X 20 - [id number] Implanted:Qty: 1 on 08/08/2013 [place] [facility] [place]: Foot ORTHOHELIX SURGICAL DESIGNS SAWMILL MOULDER OPERATOR-021-3 5-20 / / Screw Nonlock 3.5 X 16 - [id number] Implanted:Qty: 1 [place] 08[place]08[place] [facility] [place]: Foot ORTHOHELIX SURGICAL DESIGNS SAWMILL MOULDER OPERATOR-011-3 5-16 / / Screw Nonlock 3.5 X 18 - [id number] Implanted:Qty: 1 on 08/08[place]2013 [place] [facility] [place] Foot ORTHOHELIX SURGICAL DESIGNS SAWMILL MOULDER OPERATOR-011-3 5-18 / / Screw Nonlock 3.5 X 14 - [id number] Implanted:Qty: 1 on 08/08/2013 [place] [facility] [place]: Foot ORTHOHELIX SURGICAL DESIGNS SAWMILL MOULDER OPERATOR-011-3 5-14 / / 4.0 X 3.0 [...] / / [place] Gold 4.0 - [id number] Implanted:Qty: 1 on 08/08/2013 [place] [facility] [place]: Foot ORTHOHELIX SURGICAL DESIGNS CSS-500-4 0A / / Plate Lps Alpha 2 Slot - [id number] Implanted:Qty: 1 on 08/08/2013 [place] [facility] [place]: Foot ORTHOHELIX SURGICAL DESIGNS MXL-002-2 A / / Screw Variable 3.5 X 12mm - [id number] Implanted:Qty: 1 on 08/08/2013 [place] [facility] [place]: Foot ORTHOHELIX SURGICAL DESIGNS RAKESH-031-3 5-12 / / Screw Variable 3.5 X 18mm - [id number] Implanted:Qty: 1 on 08/08/2013 [place] [facility] [place]: Foot ORTHOHELIX SURGICAL DESIGNS RAKESH-031-3 5-18 / / documented as of this encounter Visit Diagnoses Diagnosis Gastroesophageal reflux disease, unspecified whether esophagitis present- Primary documented in this encounter Advance Directives [...] Power of Attor elizabeth? No Care Teams Environmental Engineering Aide Relationship Specialty Start Date End Date Ronald Cortes MD [address] [place] [address] PCP - General 06/10/02 documented as of this encounter
--- OUTSIDE RECORDS SUMMARY | 2024-03-03 23:09 | External Medical Summary | Summary of Care ---
Author Name Unknown Organization [facility] Address [address] [place] [address] Phone [phone] Care Team Providers Care Box Printer Name Role Phone Ronald Cortes MD Primary Care Provider Reason for Visit * Reason Onset Date Comments Medication Question 02/03/2024 Encounter Details Date Type Department Care Team (Late st Contact Info) Description 02/03/2024 Telephone [facility] [address] [place] [address] Ronald Cortes MD [address] [place] [address] Medication Question Allergies Active Allergy [...] pain, headache 1 Tab 0 4 Active Rumney-3 Fatty Acids (FISH OIL) 1000 MG Capsule [...] Pain, Moderate. 45 Tablet 4 Active Tiotropium Conesus Monohydrate 18 MCG Inhalation Capsule (Spiriva HandiHaler) [...] the morning. 90 Tablet 3 4 Active Pantoprazole Sodium 40 MG Oral [...] stent 07/01/2023 Coronary artery disease invo lving [place] coronary artery of [place] heart without angina pectoris 07/01/2023 Hematuria of [...] 09/02/1973 Smokeless Tobacco: Never Comments:/2 ppd. Smoker 2 07/04. 5 cpd smoker. 11/18/23 Alcohol Use [...] but likely started when she was hospitalized [facility] 2023 * Telephone Encounter - Ping Payan RN - 02/03/2024 3:52 PM EDT Images from the original note were not included. Provider to address: SUNITH[place] completed for patient discharged from [facility] 02/02/2024 for Acute dehydration, UTI Per Discharge [...] Upcoming Encounters Date Type Department Care Team ([facility] st Contact Info) Description 02/08/2024 11:40 AM EDT Office Visit [facility] [address] [facility] [phone] Marcelino Prado MD [address] [facility] [place] [phone] 03/09/2024 6:20 PM EST Office Visit [facility], [place] [address] [facility] [phone] Ronald Cortes MD [address] [place] [address] 05/23/2024 2:00 PM EST Office Visit Pulmonary Medicine, [facility] [address] [facility] [place] [address] Marbin Serrano MD [address] [facility] [address] 06/07/2024 8:30 AM EST Office Visit Cardiology, [facility] [address] [facility] [place] [address] Pepe Lennon DO [address] [facility] [place] [address] Scheduled Procedures Name Priority Associated Diagnoses Date/Ti me COLONOSCOPY FLEXIBLE PROXIMA L DIAGNOSTIC Recall Encounter for screening colonoscopy Health Maintenance Due Date Last Done Comments DISCUSS TOBACCO CESSATION (REFER TO SMARTSET #4426) 1950 Alpha-1 Antitrypsin 1967 Cologuard 1994 Sigmoidoscopy 1994 Zoster Vaccines (2 of 3) 03/19/2012 01/23/2012 Adult Wellness Visit 2015 DXA Scan 12/27/2016 12/27/2014, 03/13, 03/29/2007, Additional history exists Fecal Occult Blood Test 04/23/2018 04/23/19 18, 12/21/2000, 10/31/1999 COVID-19 Vaccine (3 - season) 2023 03/08/2021, 02/07/2021 Influenza Vaccine (FLU [...] D LEVEL ONCE IN A LIFETIME-USE SMARTSET# [id number] Completed 03/22/2015 Pneumococcal Vaccine: 65+ Years Completed [...] this encounter Medical Devices Implanted Type Area Locker Room Supervisor Device Identifier Shelf Expiration Date Model / Serial / Lot Chip Cancellous 5c [id number] - [id number] Implanted:Qty: 1 on 08/08/2013 at [facility] Tissue - Human Left: Foot MUSCULOSKELETAL TRANSPLANT FND 07/24/2015 [id number] / [id number] / Screw Nonlock 3.5 X 24 - [id number] Implanted:Qty: 1 on 08/08/2013 at [facility] Left: Foot [employer] COMPUTER OPERATIONS TECHNICIAN-011-3 5-24 / / Screw Locking 3.5 X 16 - [id number] Implanted:Qty: 2 on 08/08/2013 at [facility] Left: Foot ORTHOHEL[employer] COMPUTER OPERATIONS TECHNICIAN-021-3 5-16 / / Plate 6 Hole Beta Mxl-0026 - [id number] Implanted:Qty: 1 on 08/08/2013 at [facility] Left: Foot [employer] MXL-0026 / / Screw Locking 3.5 X 20 - [id number] Implanted:Qty: 1 on 08/08/2013 at [facility] Left: Foot ORTHOHEL[employer] COMPUTER OPERATIONS TECHNICIAN-021-3 5-20 / / Screw Nonlock 3.5 X 16 - [id number] Implanted:Qty: 1 on 08/08/2013 at [facility] Left: Foot [employer]TH[employer]HEL[employer] COMPUTER OPERATIONS TECHNICIAN-011-3 5-16 / / Screw Nonlock 3.5 X 18 - [id number] Implanted:Qty: 1 on 08/08/2013 at [facility] Left: Foot ORTH[employer]HEL[employer] COMPUTER OPERATIONS TECHNICIAN-011-3 5-18 / / Screw Nonlock 3.5 X 14 - [id number] Implanted:Qty: 1 on 08/08/2013 at [facility] Left: Foot ORTH[employer]HEL[employer] COMPUTER OPERATIONS TECHNICIAN-011-3 5-14 / / 4.0 X 3.0 Short Max Torque Implanted:Qty: 1 on 08/08/2013 at [facility] Left: Foot [employer] MSD-010-4 0-030S / / 4.0 X 32.5 Short Max Torque Implanted:Qty: 1 on 08/08/2013 at [facility] Left: Foot MSD-010-4 0-325S / / 4.0 X 28 Short Max Torque Implanted:Qty: 1 on 08/08/2013 at [facility] Left: Foot [employer] MSD-010-4 0-028S / / 4.0 X 22 Short Max Torque Implanted:Qty: 1 on 08/08/2013 at [facility] Left: Foot ORTH[employer]HEL[employer]NS MSD-010-4 0-022S / / [place] Gold 4.0 - [id number] Implanted:Qty: 1 on 08/08/2013 at [facility] Left: Foot ORTH[employer]HEL[employer] CSS-500-4 0A / / Plate Lps Alpha 2 Slot - [id number] Implanted:Qty: 1 on 08/08/2013 at [facility] Left: Foot [employer] MXL-002-2 A / / Screw Variable 3.5 X 12mm - [id number] Implanted:Qty: 1 on 08/08/2013 at [facility] Left: Foot ORTHOHELIX SURGICAL DESIGNS RAKESH-031-3 5-12 / / Screw Variable 3.5 X 18mm - [id number] Implanted:Qty: 1 on 08/08/2013 at [facility] Left: Foot ORTHOHELIX [employer] DESIGNS RAKESH-031-3 5-18 [...] Power of Attor elizabeth? No Care Teams Box Printer Relationship Specialty Start Date End Date Ronald Cortes MD [address] [place] [facility] [place] [address] PCP - General 06/10/02 documented as of this encounter
[2024-03-04 05:58] LABS: Basophils # (auto) 0.02 K/uL (0.00-0.20); Basophils % (auto) 0.2 %; Eosinophils # (auto) 0.21 K/uL (0.00-0.50); Eosinophils % (auto) 2.2 %; Hematocrit (blood only) 28.8 % (37.0-47.0); Hemoglobin 9.4 g/dl (12.0-16.0); Immature Granulocytes # (auto) 0.04 K/uL (0.01-0.20); Immature Granulocytes % (auto) 0.4 %; Lymphocytes # (auto) 3.06 K/uL (1.20-3.40); Lymphocytes % (auto) 32.1 %; Mean Corpuscular Hemoglobin 31.5 pg (25.0-34.0); Mean Corpuscular Hgb Conc 32.6 g/dL (32.0-36.0); Mean Corpuscular Volume 96.6 fL (80.0-100.0); Mean Platelet Volume 8.4 fL (9.4-12.4); Monocytes # (auto) 0.79 K/uL (0.11-0.59); Monocytes % (auto) 8.3 %; Neutrophils % (auto) 56.8 %; Platelet Count 289 K/uL (130-400); RDW Coefficient of Variation 14.2 % (11.5-14.5); RDW Standard Deviation 50.2 fL (36.4-46.3); Red Blood Count 2.98 M/uL (4.20-5.40); White Blood Count 9.52 K/ul (4.8-10.8)
--- NOTE | 2024-03-04 06:00 | Electrocardiogram Report ---
Test Reason : Blood Pressure : */* mmHG Vent. Rate : 99 BPM Atrial Rate : * BPM P-R Int : * ms QRS Dur : 80 ms QT Int : 402 ms P-R-T Axes : * 67 -80 degrees QTcB Int : 515 ms Atrial fibrillation Prolonged QT Abnormal ECG When compared with ECG of 02-Mar-2024 19:39, No significant change Confirmed by Boston Salinas ([id number]) on 03/04/2024 5:59:58 AM Referred By: REFERRED SELF Confirmed By: Boston Salinas
--- NOTE | 2024-03-04 06:00 | Electrocardiogram Report ---
Test Reason : Blood Pressure : */* mmHG Vent. Rate : 117 BPM Atrial Rate : 117 BPM P-R Int : 222 ms QRS Dur : 82 ms QT Int : 354 ms P-R-T Axes : * 68 -86 degrees QTcB Int : 493 ms Atrial fibrillation with rapid ventricular response Septal infarct , age undetermined Prolonged QT Abnormal ECG When compared with ECG of 31-Jan-2024 23:56, Atrial fibrillation has replaced Sinus rhythm T wave inversion now evident in Inferior leads ST now depressed in Inferior leads Confirmed by Boston Salinas ([id number]) on 03/04/2024 5:59:32 AM Referred By: REFERRED SELF Confirmed By: Boston Salinas
--- NOTE | 2024-03-04 06:01 | Electrocardiogram Report ---
Test Reason : Blood Pressure : */* mmHG Vent. Rate : 99 BPM Atrial Rate : 258 BPM P-R Int : * ms QRS Dur : 78 ms QT Int : 422 ms P-R-T Axes : 86 66 -83 degrees QTcB Int : 541 ms Atrial fibrillation Septal infarct , age undetermined Prolonged QT Abnormal ECG When compared with ECG of 02-Mar-2024 22:26, No significant change Confirmed by Boston Salinas ([id number]) on 03/04/2024 6:00:41 AM Referred By: REFERRED SELF Confirmed By: Boston Salinas
--- NOTE | 2024-03-04 06:02 | Electrocardiogram Report ---
Test Reason : Blood Pressure : */* mmHG Vent. Rate : 84 BPM Atrial Rate : 258 BPM P-R Int : * ms QRS Dur : 70 ms QT Int : 408 ms P-R-T Axes : * 67 -80 degrees QTcB Int : 483 ms Atrial fibrillation Septal infarct (cited on or before 03-Mar-2024) Prolonged QT Abnormal ECG When compared with ECG of 03-Mar-2024 03:49, No significant change Confirmed by Boston Salinas ([id number]) on 03/04/2024 6:01:57 AM Referred By: REFERRED SELF Confirmed By: Boston Salinas
--- NOTE | 2024-03-04 06:03 | Electrocardiogram Report ---
Test Reason : Blood Pressure : */* mmHG Vent. Rate : 82 BPM Atrial Rate : 277 BPM P-R Int : * ms QRS Dur : 72 ms QT Int : 466 ms P-R-T Axes : * 62 -65 degrees QTcB Int : 544 ms Atrial fibrillation Septal infarct (cited on or before 03-Mar-2024) Prolonged QT Abnormal ECG When compared with ECG of 03-Mar-2024 06:00, No significant change Confirmed by Boston Salinas ([id number]) on 03/04/2024 6:02:45 AM Referred By: REFERRED SELF Confirmed By: Boston Salinas
[2024-03-04 06:17] LABS: BUN Creatinine Ratio 15.4 (10-20); Calcium 7.7 mg/dl (8.6-10.3); Creatinine Clr Calc Pharmacy 47.7 ml/min; Potassium 3.4 mmol/L (3.5-5.1)
--- NOTE | 2024-03-04 07:07 | Hospitalist Progress Note ---
Date of Service March 04, 2024 Assessment & Plan (1) Severe sepsis with acute organ dysfunction: (2) Suspected urinary tract infection: (3) Myocardial infarction due to demand ischemia: (4) Acute metabolic encephalopathy: (5) COPD (chronic obstructive pulmonary disease): (6) PAF (paroxysmal atrial fibrillation): (7) Uncontrolled hypertension: Plan Ms. Kae Johnston is a 73-year-old woman with multiple recent hospitalization and past medical history of nonobstructive CAD, PAF, HTN, HLD, COPD, hypothyroidism, GERD and more admitted on 03/03 for sepsis due to acute cystitis. Patient with NSTEMI type II iso sepsis. Cardiology following no acute changes to management. Patient doing well today #Sepsis iso acute complicated cystitis -leukocytosis resolved -vital signs stable UA with ecoli, awaiting susceptibilities continue CTX #NSTEMI type II no chest pain at this time, stable ECHO at 55-60% continue tele Continue conservative mgmt with plavix #Paroxysmal a fib likely iso sepsis, converted NSR discontinued amiodarone (briefly started this admission) continue eliquis #HLD continue statin #HTN continue losartan and coreg #hypothyroidism continue synthroid #generalized weakness PT/OT, recommended rehab #COPD continue home inhalers Resume all other chronic home medications Full code Dispo likely ready in 1-2 days once susceptibilities result, recommendation rehab Admission and Anticipated Discharge Date Admission Date: March 03, 2024 Subjective Reportedly much better mental status this am Denies any new symptoms States appetite has returned and feeing near baseline Denies chest pain, SOB, or other acute concerns Daughter at bedside--worries about patient's functional status, patient will consider rehab if recommended Physical Exam Constitutional: WD/WN, vitals as above Respiratory: diminished bibasilar breath sounds, no resp distress noted , Cardiovascular: RRR, IGNACIO Musculoskeletal: moving all extremities equally Results & Data Results & Data Vital Signs (Past 12 Hours) Vital Signs Temp Pulse Pulse Resp BP BP Pulse Ox 03/04/24 03:34 36.6 C 67 19 100/61 97 03/04/24 03:06 03/04/24 00:00 64 03/04/24 00:00 108/63 03/03/24 23:30 36.7 C 69 15 99 03/03/24 20:45 110/60 03/03/24 19:44 36.7 C 62 16 90/58 L 98 O2 Del Method O2 Flow Rate FiO2 03/04/24 03:34 Nasal Cannula 2 03/04/24 03:06 Nasal Cannula 2 0 03/04/24 00:00 03/04/24 00:00 03/03/24 23:30 Nasal Cannula 2 03/03/24 20:45 03/03/24 19:44 Nasal Cannula 2 Laboratory Results Short CBC 03/03/24 03/04/24 Range/Units 06:13 05:38 WBC 12.51 H 9.52 (4.8-10.8) K/ul Hgb 11.6 L 9.4 L (12.0-16.0) g/dl Hct 35.0 L 28.8 L (37.0-47.0) % Plt Count 387 289 (130-400) K/uL BMP 03/03/24 03/04/24 06:13 05:38 Sodium 141 141 Potassium 4.0 D 3.4 L Chloride 100 107 Carbon Dioxide 33 H 30 BUN 21 12 Creatinine 0.82 0.78 Glucose 103 H 94 Calcium 9.0 7.7 L Medications Administered Home Medications Medication Instructions Recorded Confirmed Last Taken multivitamin 1 tab PO DAILY #0 tabs 02/07/14 03/02/24 01/30/24 calcium 600 mg (as 1 tab PO QAM ##0 04/22/17 03/02/24 01/30/24 carbonate)-vitamin D3 10 mcg (400 unit) tablet (Calcium 600 + D(3)) omega 9-kvl-uub-fish oil 1,000 mg 1 cap PO DAILY #0 caps 04/22/17 03/02/24 01/30/24 (120 mg-180 mg) capsule (Fish Oil) magnesium oxide 400 mg PO BID #0 tabs 06/01/17 03/02/24 01/30/24 alendronate 70 mg tablet 70 mg PO WK 12/06/23 03/02/24 01/25/24 apixaban 5 mg tablet (Eliquis) 5 mg PO BID 12/06/23 03/02/24 01/30/24 AM DOSE atorvastatin 40 mg tablet 40 mg PO QAM 12/06/23 03/02/24 01/30/24 citalopram 40 mg tablet 40 mg PO QAM 12/06/23 03/02/24 01/30/24 clopidogrel 75 mg tablet 75 mg PO QAM 12/06/23 03/02/24 01/30/24 fluticasone propionate 115 2 puff inhalation AMHS 12/06/23 03/02/24 01/30/24 mcg-salmeterol 21 mcg/actuation AM DOSE HFA inhaler gabapentin 300 mg capsule 300 mg PO TID 12/06/23 03/02/24 01/30/24 AM DOSE levothyroxine 25 mcg tablet 25 mcg PO DAILYBB 12/06/23 03/02/24 01/30/24 oxybutynin chloride 5 mg 5 mg PO QAM 12/06/23 03/02/24 01/30/24 tablet,extended release 24 hr potassium chloride 10 mEq 10 meq PO AMHS 12/06/23 03/02/24 01/30/24 tablet,extended AM DOSE release(part/cryst) (Klor-Con M) trazodone 50 mg tablet 100 mg PO HS 12/06/23 03/02/24 01/29/24 nitroglycerin 0.4 mg sublingual 0.4 mg sublingual Q5M PRN chest 12/09/23 03/02/24 Unknown tablet (Nitrostat) pain #30 tabs umeclidinium 62.5 mcg/actuation 1 inh inhalation DAILY #30 ea 12/14/23 03/02/24 01/30/24 blister powder for inhalation (Incruse Ellipta) ipratropium 0.5 mg-albuterol 3 mg 3 ml NEB QIDR PRN shortness of 12/28/23 03/02/24 Unknown (2.5 mg base)/3 mL nebulization breath #90 mL soln albuterol sulfate 90 mcg/actuation 2 puff inhalation Q4 PRN WHEEZING 01/30/24 03/02/24 Unknown aerosol inhaler OR COUGH amiodarone 200 mg tablet 200 mg PO QAM 01/30/24 03/02/24 01/30/24 pantoprazole 40 mg tablet,delayed 40 mg PO QAM 01/30/24 03/02/24 01/30/24 release (Protonix) carvedilol 12.5 mg tablet 12.5 mg PO BID #0 tabs 10/22/24 11/20/24 10/19/24 AM DOSE furosemide 40 mg tablet 20 mg (1/2 x 40 mg) PO QAM #0 tabs 02/02/24 03/02/24 01/30/24 tiotropium bromide 18 mcg capsule 1 cap inhalation QAM 03/02/24 03/02/24 Unknown with inhalation device Active Medications Generic Name Dose Route Start Last Admin Trade Name Marshalq PRN Reason Stop Dose Admin Apixaban 5 mg 03/03/24 09:00 03/03/24 20:43 Apixaban 5 Mg Tablet PO 04/02/24 08:59 5 mg BID GELACIO Administration Atorvastatin Calcium 40 mg 03/03/24 09:00 03/03/24 08:28 Atorvastatin 40 Mg Tab PO 04/02/24 08:59 40 mg QAM GELACIO Administration Calcium/Vitamin D 1 tab 03/03/24 09:00 03/03/24 08:27 Calcium 600mg + Vit D 400 Iu Tab PO 04/02/24 08:59 1 tab QAM GELACIO Administration Carvedilol 12.5 mg 03/03/24 09:00 03/03/24 20:57 Carvedilol 12.5 Mg Tab PO 04/02/24 08:59 12.5 mg BID GELACIO Administration Clopidogrel Bisulfate 75 mg 03/03/24 09:00 03/03/24 08:27 Clopidogrel Bisulfate 75 Mg Tab PO 04/02/24 08:59 75 mg QAM GELACIO Administration Fluticasone/Vilanterol 1 puffs 03/03/24 09:00 03/03/24 10:50 Fluticasone/Vilanterol 200/25mcg 14 Puffs/Inhaler INH 04/02/24 08:59 Not Given DAILY GELACIO Gabapentin 300 mg 03/03/24 09:00 03/03/24 20:44 Gabapentin 300 Mg Cap PO 04/02/24 08:59 300 mg TID GELACIO Administration Ceftriaxone Sodium 2,000 mg in 50 mls @ 100 mls/hr 03/03/24 22:00 03/03/24 21:34 Rocephin IV 03/08/24 21:59 Infused Q24H GELACIO Infusion Sodium Chloride 1,000 mls @ 125 mls/hr 03/03/24 18:15 03/03/24 23:59 Nss IV 03/04/24 18:14 125 mls/hr .Q8H GELACIO Administration Levothyroxine Sodium 25 mcg 03/03/24 06:30 03/03/24 08:27 Levothyroxine Sodium 25 Mcg Tablet PO 04/02/24 06:29 25 mcg DAILYBB GELACIO Administration Losartan Potassium 25 mg 03/03/24 09:00 03/03/24 10:50 Losartan Potassium 25 Mg Tab PO 04/02/24 08:59 25 mg QAM GELACIO Administration Magnesium Oxide 400 mg 03/03/24 09:00 03/03/24 20:42 Magnesium Oxide 400 Mg Tab PO 04/02/24 08:59 400 mg BID GELACIO Administration Multivitamins 1 tab 03/03/24 09:00 03/03/24 08:27 Multivitamin Tab PO 04/02/24 08:59 1 tab DAILY GELACIO Administration Oxybutynin Chloride 5 mg 03/03/24 09:00 03/03/24 08:28 Oxybutynin Chloride Xl 5 Mg Tabcr PO 04/02/24 08:59 5 mg QAM GELACIO Administration Pantoprazole Sodium 40 mg 03/03/24 09:00 03/03/24 08:27 Pantoprazole 40 Mg Tab PO 04/02/24 08:59 40 mg QAM GELACIO Administration Umeclidinium Almond 1 puffs 03/03/24 09:00 03/03/24 10:50 Umeclidinium Almond 62.5mcg/Blister 7 Puffs/Inhaler INH 04/02/24 08:59 Not Given DAILY GELACIO
[2024-03-04] MEDS: POTASSIUM CHLORIDE CRTAB 20 MEQ TABCR PO STA (09:39)
[2024-03-04] MEDS: CITALOPRAM 40 MG TAB PO SCH (09:42)
--- NOTE | 2024-03-04 09:53 | Cardiology Progress Note ---
Date of Service March 04, 2024 Assessment & Plan (1) Sepsis: (2) Intravascular volume depletion: (3) Elevated troponin level: (4) ASCVD (arteriosclerotic cardiovascular disease): (5) Epigastric abdominal tenderness: Plan Sepsis. As per Hospitalist. Elevated cardiac troponin. This appears to be a Type II non ST segment elevation-KS cause (secondary to critical illness, sepsis with associated tachycardia, significant volume depletion) in the setting of known coronary artery disease. Recommend conservative medical management. Atrial fibrillation. Amiodarone discontinued, risks felt to be greater than the benefit noting pulmonary disease, recurrent COPD exacerbations treated intermittently with QTc prolonging medications. Continue carvedilol for blood pressure as well as rate/rhythm control. Continue Eliquis anticoagulation. Chest and epigastric discomfort, both areas tender to palpation. General measures advised. Further evaluation as per Hospitalist. Hypertension. Patient with a longstanding history of hypertension. Labile blood pressures observed. Continue carvedilol and Losartan for now. Dyslipidemia. Continue moderate intensity statin therapy with atorvastatin 40 mg/day. CK 108 U/L on 03/02/2024. COPD. Chronic hypoxic respiratory failure. Chronic tobacco abuse. Cessation mandated. Suspected bilateral lower extremity peripheral arterial disease. Smoking cessation mandated. Continue antiplatelet therapy and statin. Consider further evaluation as an outpatient Please contact with any further cardiac questions or concerns. Admission and Anticipated Discharge Date Admission Date: March 03, 2024 Supervising Physician Co-Signing Physician Notes Attending attestation: Case reviewed with the advanced practitioner. I have personally performed a history and physical examination on the patient. I have reviewed the advanced practitioner's documentation on the date of service referenced in note, and I agree with, and take responsibility for the plan of care. Patient back in sinus rhythm. Cardiology medication plan as outlined above. Cardiology to sign off. Please call with questions or concerns Pepe Lennon, DO Subjective Patient seen and examined. Feeling better. Left upper chest and epigastric discomfort, both areas tender to palpation. No overt angina. No palpitations. Breathing has improved. No orthopnea, PND, or peripheral edema. Telemetry: Atrial fibrillation/flutter with spontaneous conversion back to sinus rhythm at 07:06 on 03/04/2024 Physical Exam Physical Exam: General: NAD. Comfortable. Cooperative. HENT: Hoarse voice. Normocephalic. Atraumatic. Mouth: Dentures. No thrush. Eyes: PER. Conjunctiva pink, sclera clear. Neck: Normal JVP. Bilateral carotid bruits. Heart: Distant heart sounds. Regular at 64 bpm. Grade I-II/ systolic murmur. No diastolic murmur. Lungs: Diminished. Decreased. Scattered rhonchi. Abdomen: +BS. Epigastric tenderness. No organomegaly. Extremities: No clubbing, cyanosis, or edema. Limited neurological examination is without focal deficits. Pulses: Posterior tibial=0/4, dorsalis pedis pulses 0/4. Results & Data Vital Signs (Past 12 Hours) Vital Signs Temp Pulse Pulse Resp BP BP Pulse Ox 03/04/24 08:15 36.4 C L 56 L 17 109/60 99 03/04/24 03:34 36.6 C 67 19 100/61 97 03/04/24 03:06 03/04/24 00:00 64 03/04/24 00:00 108/63 03/03/24 23:30 36.7 C 69 15 99 O2 Del Method O2 Flow Rate FiO2 03/04/24 08:15 Nasal Cannula 2 03/04/24 03:34 Nasal Cannula 2 03/04/24 03:06 Nasal Cannula 2 0 03/04/24 00:00 03/04/24 00:00 03/03/24 23:30 Nasal Cannula 2 Laboratory Results Cardiac Enzymes 03/03/24 Range/Units 11:34 Troponin I High Sens 220.4 H* (0-14) pg/ml CBC 03/04/24 Range/Units 05:38 WBC 9.52 (4.8-10.8) K/ul RBC 2.98 L (4.20-5.40) M/uL Hgb 9.4 L (12.0-16.0) g/dl Hct 28.8 L (37.0-47.0) % Plt Count 289 (130-400) K/uL Neut # (Auto) 5.40 (1.40-6.50) K/uL Lymph # (Auto) 3.06 (1.20-3.40) K/uL Moore # (Auto) 0.79 H (0.11-0.59) K/uL Eos # (Auto) 0.21 (0.00-0.50) K/uL Baso # (Auto) 0.02 (0.00-0.20) K/uL Comprehensive Metabolic Panel 03/04/24 Range/Units 05:38 Sodium 141 (136-145) mmol/L Potassium 3.4 L (3.5-5.1) mmol/L Chloride 107 (98-107) mmol/L Carbon Dioxide 30 (21-32) mmol/L BUN 12 (6-23) mg/dl Creatinine 0.78 (0.6-1.2) mg/dl Glucose 94 (70-99(Fasting)) mg/dl Calcium 7.7 L (8.6-10.3) mg/dl Intake and Output 03/03/24 03/04/24 03/04/24 22:59 06:59 14:59 Intake Total 1042 / 2147.417 1105.417 / 2147.417 1000 / 1000 Output Total 450 / 450 Balance 1042 / 1697.417 655.417 / 9685.866 4577 / 1000 Intake: IV 1042 / 1727.417 685.417 / 2056.339 9575 / 1000 D5w and Nss 1,000 ml @ 80 mls/ 992 / 992 hr IV .[id number] GELACIO Rx#:[id number] Sodium Chloride 0.9% 1,000 ml @ 685.417 / 442.588 0499 / 1000 125 mls/hr IV .Q8H GELACIO Rx#: [id number] cefTRIAXone SODIUM 2,000 mg In 50 / 50 50 ml @ 100 mls/hr IV Q24H GELACIO Rx#:[id number] Oral 420 / 420 Output: Urine Amount (Catheter) 450 / 450 External 450 / 450 Diagnostic Findings March 03, 2024 TTE: Normal LV wall motion. Normal LV systolic function. EF 55-60%. Mild aortic valve sclerosis without significant stenosis. Mild tricuspid regurgitation. Doppler findings do not suggest pulmonary hypertension.
[2024-03-04] MEDS: LORazepam 0.5 MG TAB PO STA (20:46)
[2024-03-05 07:54] LABS: Hemoglobin 8.8 g/dl (12.0-16.0); Mean Corpuscular Hemoglobin 30.2 pg (25.0-34.0); Mean Corpuscular Hgb Conc 31.4 g/dL (32.0-36.0); Mean Corpuscular Volume 96.2 fL (80.0-100.0); Mean Platelet Volume 8.6 fL (9.4-12.4); Platelet Count 279 K/uL (130-400); RDW Coefficient of Variation 13.7 % (11.5-14.5); RDW Standard Deviation 48.8 fL (36.4-46.3); Red Blood Count 2.91 M/uL (4.20-5.40); White Blood Count 8.24 K/ul (4.8-10.8)
[2024-03-05 08:08] LABS: BUN Creatinine Ratio 9.6 (10-20); Calcium 8.7 mg/dl (8.6-10.3); Creatinine Clr Calc Pharmacy 44.9 ml/min; Potassium 3.7 mmol/L (3.5-5.1)
--- NOTE | 2024-03-05 11:39 | Hospitalist Progress Note ---
Date of Service March 05, 2024 Assessment & Plan (1) Severe sepsis with acute organ dysfunction: (2) Suspected urinary tract infection: (3) Myocardial infarction due to demand ischemia: (4) Acute metabolic encephalopathy: (5) COPD (chronic obstructive pulmonary disease): (6) PAF (paroxysmal atrial fibrillation): (7) Uncontrolled hypertension: Plan Ms. Kae Johnston is a 73-year-old woman with multiple recent hospitalization and past medical history of nonobstructive CAD, PAF, HTN, HLD, COPD, hypothyroidism, GERD and more admitted on 03/03 for sepsis due to acute cystitis. Patient with NSTEMI type II iso sepsis. Cardiology following no acute changes to management. Patient continues to subjectively improve. Referrals for rehab sent 03/04 will likely be medically ready tomorrow, for dispo once auth/bed available. #Sepsis iso acute complicated cystitis -leukocytosis resolved -vital signs stable UA with ecoli, awaiting susceptibilities continue CTX #NSTEMI type II no chest pain at this time, stable ECHO at 55-60% continue tele Continue conservative mgmt with plavix #Paroxysmal a fib likely iso sepsis, converted NSR discontinued amiodarone (briefly started this admission) continue eliquis #HLD continue statin #HTN continue losartan and coreg #hypothyroidism continue synthroid #generalized weakness PT/OT, recommended rehab #COPD continue home inhalers Resume all other chronic home medications Full code Dispo likely ready in 1-2 days once susceptibilities result, recommendation rehab Will continue IV abx while inpt. Down grade to med tele iso nstemi Admission and Anticipated Discharge Date Admission Date: March 03, 2024 Subjective NAEO Reports feeling "pretty good" this morning Endorses return of appetite Denies chest pain, fevers, sob or other acute concerns Physical Exam Constitutional: WD/WN, vitals as above Respiratory: diminished bibasilar, however, no distress noted Cardiovascular: RRR, IGNACIO+ Results & Data Results & Data Vital Signs (Past 12 Hours) Vital Signs Temp Pulse Pulse Resp BP BP Pulse Ox 03/05/24 10:46 55 L 18 123/59 L 95 03/05/24 07:46 36.6 C 56 L 16 160/66 H 99 03/05/24 04:30 36.7 C 61 18 123/64 99 03/05/24 04:00 54 L 20 03/05/24 00:00 59 L 03/05/24 00:00 36.4 C L 57 L 17 155/84 H 99 O2 Del Method O2 Flow Rate 03/05/24 10:46 Nasal Cannula 2 03/05/24 07:46 Nasal Cannula 2 03/05/24 04:30 Nasal Cannula 2 03/05/24 04:00 Nasal Cannula 2 03/05/24 00:00 03/05/24 00:00 Nasal Cannula 2
[2024-03-05 12:25] LABS: Immature Retic Fraction 15.8 % (2.3-15.9); Reticulocyte % 1.8 % (0.50-2.00); Reticulocytes # 0.05 10^6/uL (0.020-0.100)
[2024-03-05 12:41] LABS: Ferritin 17.9 ng/ml (8-388)
[2024-03-05] MEDS: ACETAMINOPHEN 325 MG TAB PO PRN (15:53)
[2024-03-05] MEDS: LORazepam 0.5 MG TAB PO STA (22:29)
[2024-03-06 06:38] LABS: Hematocrit (blood only) 28.9 % (37.0-47.0); Hemoglobin 9.2 g/dl (12.0-16.0); Mean Corpuscular Hemoglobin 30.5 pg (25.0-34.0); Mean Corpuscular Hgb Conc 31.8 g/dL (32.0-36.0); Mean Corpuscular Volume 95.7 fL (80.0-100.0); Mean Platelet Volume 8.7 fL (9.4-12.4); Platelet Count 267 K/uL (130-400); RDW Coefficient of Variation 13.6 % (11.5-14.5); RDW Standard Deviation 47.9 fL (36.4-46.3); Red Blood Count 3.02 M/uL (4.20-5.40)
[2024-03-06 06:56] LABS: BUN Creatinine Ratio 11.4 (10-20); Calcium 8.5 mg/dl (8.6-10.3); Creatinine Clr Calc Pharmacy 47.1 ml/min; Potassium 3.3 mmol/L (3.5-5.1)
[2024-03-06] MEDS: POTASSIUM CHLORIDE CRTAB 20 MEQ TABCR PO SCH (09:08)
--- NOTE | 2024-03-06 10:48 | Hospitalist Progress Note ---
Date of Service March 06, 2024 Assessment & Plan (1) Severe sepsis with acute organ dysfunction: (2) Suspected urinary tract infection: (3) Myocardial infarction due to demand ischemia: (4) Acute metabolic encephalopathy: (5) COPD (chronic obstructive pulmonary disease): (6) PAF (paroxysmal atrial fibrillation): (7) Uncontrolled hypertension: Plan Ms. Kae Johnston is a 73-year-old woman with multiple recent hospitalization and past medical history of nonobstructive CAD, PAF, HTN, HLD, COPD, hypothyroidism, GERD and more admitted on 03/03 for sepsis due to acute cystitis. Patient with NSTEMI type II iso sepsis. Cardiology following no acute changes to management. Patient continues to subjectively improve. Referrals for rehab sent 03/04. Medically stable for discharge upon bed availability/auth approval. #Abdominal discomfort KUB as patient reports usual constipation and very "small" bm iso some vague discomfort #Sepsis iso acute complicated cystitis -leukocytosis resolved -vital signs stable UA with ecoli, continue CTX while inpatient EOT 03/12 #NSTEMI type II no chest pain at this time, stable ECHO at 55-60% continue tele Continue conservative mgmt with plavix #Paroxysmal a fib likely iso sepsis, converted NSR discontinued amiodarone (briefly started this admission) continue eliquis #HLD continue statin #HTN continue losartan and coreg #hypothyroidism continue synthroid #generalized weakness PT/OT, recommended rehab #COPD continue home inhalers Resume all other chronic home medications Full code Dispo likely ready in 1-2 days once susceptibilities result, recommendation rehab Will continue IV abx while inpt Admission and Anticipated Discharge Date Admission Date: March 03, 2024 Subjective NAEO reports feeling better each day but notes some RLQ discomfort, states she doesnt suspect its gas or related to BM but denies nausea or any other symptoms at this time reports small bm yesterday Physical Exam Constitutional: WD/WN, vitals as above Respiratory: normal respiratory effort, lungs clear to auscultation improved today Cardiovascular: RRR IGNACIO++ Results & Data Results & Data Vital Signs (Past 12 Hours) Vital Signs Temp Pulse Pulse Resp BP Pulse Ox O2 Del Method 03/06/24 08:00 Nasal Cannula 03/06/24 07:15 36.6 C 54 L 18 138/68 99 Nasal Cannula 03/06/24 07:14 49 L 03/06/24 03:15 36.8 C 52 L 18 146/85 H 100 Nasal Cannula O2 Flow Rate 03/06/24 08:00 2 03/06/24 07:15 2 03/06/24 07:14 03/06/24 03:15 2 Laboratory Results Short CBC 03/06/24 Range/Units 05:55 WBC 9.20 (4.8-10.8) K/ul Hgb 9.2 L (12.0-16.0) g/dl Hct 28.9 L (37.0-47.0) % Plt Count 267 (130-400) K/uL BMP 03/06/24 05:55 Sodium 142 Potassium 3.3 L Chloride 104 Carbon Dioxide 34 H BUN 9 Creatinine 0.79 Glucose 93 Calcium 8.5 L Medications Administered Home Medications Medication Instructions Recorded Confirmed Last Taken multivitamin 1 tab PO DAILY #0 tabs 02/07/14 03/02/24 01/30/24 calcium 600 mg (as 1 tab PO QAM ##0 04/22/17 03/02/24 01/30/24 carbonate)-vitamin D3 10 mcg (400 unit) tablet (Calcium 600 + D(3)) omega 7-lsw-tsq-fish oil 1,000 mg 1 cap PO DAILY #0 caps 04/22/17 03/02/24 01/30/24 (120 mg-180 mg) capsule (Fish Oil) magnesium oxide 400 mg PO BID #0 tabs 06/01/17 03/02/24 01/30/24 alendronate 70 mg tablet 70 mg PO WK 12/06/23 03/02/24 01/25/24 apixaban 5 mg tablet (Eliquis) 5 mg PO BID 12/06/23 03/02/24 01/30/24 AM DOSE atorvastatin 40 mg tablet 40 mg PO QAM 12/06/23 03/02/24 01/30/24 citalopram 40 mg tablet 40 mg PO QAM 12/06/23 03/02/24 01/30/24 clopidogrel 75 mg tablet 75 mg PO QAM 12/06/23 03/02/24 01/30/24 fluticasone propionate 115 2 puff inhalation AMHS 12/06/23 03/02/24 01/30/24 mcg-salmeterol 21 mcg/actuation AM DOSE HFA inhaler gabapentin 300 mg capsule 300 mg PO TID 12/06/23 03/02/24 01/30/24 AM DOSE levothyroxine 25 mcg tablet 25 mcg PO DAILYBB 12/06/23 03/02/24 01/30/24 oxybutynin chloride 5 mg 5 mg PO QAM 12/06/23 03/02/24 01/30/24 tablet,extended release 24 hr potassium chloride 10 mEq 10 meq PO AMHS 12/06/23 03/02/24 01/30/24 tablet,extended AM DOSE release(part/cryst) (Klor-Con M) trazodone 50 mg tablet 100 mg PO HS 12/06/23 03/02/24 01/29/24 nitroglycerin 0.4 mg sublingual 0.4 mg sublingual Q5M PRN chest 12/09/23 03/02/24 Unknown tablet (Nitrostat) pain #30 tabs umeclidinium 62.5 mcg/actuation 1 inh inhalation DAILY #30 ea 12/14/23 03/02/24 01/30/24 blister powder for inhalation (Incruse Ellipta) ipratropium 0.5 mg-albuterol 3 mg 3 ml NEB QIDR PRN shortness of 12/28/23 03/02/24 Unknown (2.5 mg base)/3 mL nebulization breath #90 mL soln albuterol sulfate 90 mcg/actuation 2 puff inhalation Q4 PRN WHEEZING 01/30/24 03/02/24 Unknown aerosol inhaler OR COUGH amiodarone 200 mg tablet 200 mg PO QAM 01/30/24 03/02/24 01/30/24 pantoprazole 40 mg tablet,delayed 40 mg PO QAM 01/30/24 03/02/24 01/30/24 release (Protonix) carvedilol 12.5 mg tablet 12.5 mg PO BID #0 tabs 02/02/24 03/02/24 01/30/24 AM DOSE furosemide 40 mg tablet 20 mg (1/2 x 40 mg) PO QAM #0 tabs 02/02/24 03/02/24 01/30/24 tiotropium bromide 18 mcg capsule 1 cap inhalation QAM 03/02/24 03/02/24 Unknown with inhalation device Active Medications Generic Name Dose Route Start Last Admin Trade Name Freq PRN Reason Stop Dose Admin Acetaminophen 650 mg 03/03/24 05:31 03/05/24 20:19 Acetaminophen 325 Mg Tab PO 04/02/24 05:30 650 mg Q4H PRN Administration Pain or Fever Apixaban 5 mg 03/03/24 09:00 03/06/24 09:04 Apixaban 5 Mg Tablet PO 04/02/24 08:59 5 mg BID GELACIO Administration Atorvastatin Calcium 40 mg 03/03/24 09:00 03/06/24 09:05 Atorvastatin 40 Mg Tab PO 04/02/24 08:59 40 mg QAM GELACIO Administration Calcium/Vitamin D 1 tab 03/03/24 09:00 03/06/24 09:05 Calcium 600mg + Vit D 400 Iu Tab PO 04/02/24 08:59 1 tab QAM GELACIO Administration Carvedilol 12.5 mg 03/03/24 09:00 03/06/24 09:05 Carvedilol 12.5 Mg Tab PO 04/02/24 08:59 Not Given BID GELACIO Citalopram Hydrobromide 40 mg 03/03/24 09:00 03/06/24 09:04 Citalopram 40 Mg Tab PO 04/02/24 08:59 40 mg QAM GELACIO Administration Clopidogrel Bisulfate 75 mg 03/03/24 09:00 03/06/24 09:05 Clopidogrel Bisulfate 75 Mg Tab PO 04/02/24 08:59 75 mg QAM GELACIO Administration Fluticasone/Vilanterol 1 puffs 03/03/24 09:00 03/06/24 09:05 Fluticasone/Vilanterol 200/25mcg 14 Puffs/Inhaler INH 04/02/24 08:59 1 puffs DAILY GELACIO Administration Gabapentin 300 mg 03/03/24 09:00 03/06/24 09:05 Gabapentin 300 Mg Cap PO 04/02/24 08:59 300 mg TID GELACIO Administration Ceftriaxone Sodium 2,000 mg in 50 mls @ 100 mls/hr 03/03/24 22:00 03/05/24 23:20 Rocephin IV 03/08/24 21:59 Infused Q24H GELACIO Infusion Levothyroxine Sodium 25 mcg 03/03/24 06:30 03/06/24 06:22 Levothyroxine Sodium 25 Mcg Tablet PO 04/02/24 06:29 25 mcg DAILYBB GELACIO Administration Losartan Potassium 25 mg 03/03/24 09:00 03/06/24 09:05 Losartan Potassium 25 Mg Tab PO 04/02/24 08:59 25 mg QAM GELACIO Administration Magnesium Oxide 400 mg 03/03/24 09:00 03/06/24 09:05 Magnesium Oxide 400 Mg Tab PO 04/02/24 08:59 400 mg BID GELACIO Administration Multivitamins 1 tab 03/03/24 09:00 03/06/24 09:05 Multivitamin Tab PO 04/02/24 08:59 1 tab DAILY GELACIO Administration Oxybutynin Chloride 5 mg 03/03/24 09:00 03/06/24 09:05 Oxybutynin Chloride Xl 5 Mg Tabcr PO 04/02/24 08:59 5 mg QAM GELACIO Administration Pantoprazole Sodium 40 mg 03/03/24 09:00 03/06/24 09:04 Pantoprazole 40 Mg Tab PO 04/02/24 08:59 40 mg QAM GELACIO Administration Potassium Chloride 40 meq 03/06/24 09:00 03/06/24 09:08 Potassium Chloride Crtab 20 Meq Tabcr PO 03/06/24 21:01 40 meq TID GELACIO Administration Umeclidinium [place] 1 puffs 03/03/24 09:00 03/06/24 09:05 Umeclidinium [place] 62.5mcg/Blister 7 Puffs/Inhaler INH 04/02/24 08:59 1 puffs DAILY GELACIO Administration
--- NOTE | 2024-03-06 12:40 | XRay Report ---
KUB CLINICAL HISTORY: Abdominal pain. COMPARISON STUDY: CT of the abdomen December 25, 2023. FINDINGS: Lumbar spine levoscoliosis is incidentally noted. The bowel gas pattern is normal. There is a moderate amount of stool within the colon. Although sensitivity is diminished on supine exam, ther e is no evidence for free air. No urinary calculi are identified. IMPRESSION: 1. No evidence for a bowel obstruction. 2. Moderate amount of stool within the colon. ACT 112: Negative or not required by law. Electronically signed by: Glenn Mead M.D. 03/06/2024 12:39 PM
[2024-03-06] MEDS: carvediloL 3.125 MG TAB PO SCH (20:48)
[2024-03-06] MEDS: OPTIRAY 320 100ml IV ONE (21:22)
--- NOTE | 2024-03-06 23:01 | CT Scan Report ---
Exam(s): CT ABDOMEN + PELVIS With Contrast IV Amt: 91ml EXAM: CT Abdomen and Pelvis With Intravenous Contrast CLINICAL HISTORY: acute abdominal pain. TECHNIQUE: Axial computed tomography images of the abdomen and pelvis with intravenous contrast. CTDI is 11 mGy and DLP is 504 mGy-cm. Automated exposure control was utilized for the study. A dose lowering technique was utilized adhering to the principles of ALARA. CONTRAST: Patient received 91ml of IV contrast COMPARISON: CT Chest and abdomen/pelvis 12/25/2023 FINDINGS: Lung bases: Small bilateral posterior layering pleural effusions with associated atelectasis. Peripheral right lower lobe atelectasis versus infiltrate. Coronary artery calcifications. ABDOMEN: Liver: Unremarkable. No mass. Gallbladder and bile ducts: Status post cholecystectomy. No ductal dilation. Pancreas: Unremarkable. No mass. No ductal dilation. Spleen: Unremarkable. No splenomegaly. Adrenals: Unremarkable. No mass. Kidneys and ureters: Right renal upper pole cyst. Mild bilateral hydronephrosis and hydroureter. Stomach and bowel: No obstruction or ileus. Abundant stool throughout the colon. No evidence for diverticulitis. PELVIS: Appendix: No findings to suggest acute appendicitis. Bladder: Mildly distended mild wall thickening. No mass. Reproductive: Uterus and ovaries are grossly unremarkable. ABDOMEN and PELVIS: Intraperitoneal space: No free air. No free fluid. Bones/joints: No acute fracture. Soft tissues: Unremarkable. Vasculature: Atherosclerotic vascular calcifications. Redemonstrated 3 cm AP diameter fusiform infrarenal abdominal aortic aneurysm. Lymph nodes: Unremarkable. No enlarged lymph nodes. IMPRESSION: No bowel obstruction or ileus. Abundant stool throughout the colon. Bilateral nephrosis and hydroureter without obstructing calculus, the pins of the distended urinary bladder. Unchanged infrarenal abdominal aortic aneurysm. Interval development of bilateral pleural effusions with compressive atelectasis. Peripheral right lower lobe small infiltrate versus atelectasis. Otherwise no change. Electronically signed by: Aidan Alvarado M.D. 03/06/24 23:00 PM
[2024-03-07 07:19] LABS: Hematocrit (blood only) 29.2 % (37.0-47.0); Hemoglobin 9.2 g/dl (12.0-16.0); Mean Corpuscular Hemoglobin 30.5 pg (25.0-34.0); Mean Corpuscular Hgb Conc 31.5 g/dL (32.0-36.0); Mean Corpuscular Volume 96.7 fL (80.0-100.0); Mean Platelet Volume 9.1 fL (9.4-12.4); Platelet Count 289 K/uL (130-400); RDW Coefficient of Variation 13.9 % (11.5-14.5); RDW Standard Deviation 49.1 fL (36.4-46.3); Red Blood Count 3.02 M/uL (4.20-5.40); White Blood Count 10.53 K/ul (4.8-10.8)
[2024-03-07 07:38] LABS: BUN Creatinine Ratio 9.9 (10-20); Calcium 8.3 mg/dl (8.6-10.3); Creatinine Clr Calc Pharmacy 52.5 ml/min; Potassium 4.9 mmol/L (3.5-5.1)
[2024-03-07] MEDS: FUROSEMIDE INJ 20 MG/2 ML VIAL IV ONE (07:52)
[2024-03-07] MEDS: bisacodyL 5 MG TABEC PO ONE (07:52)
[2024-03-07] MEDS: POLYETHYLENE (MIRALAX) 17 GM PACK PO SCH (09:28)
--- NOTE | 2024-03-07 12:16 | Hospitalist Progress Note ---
Date of Service March 07, 2024 Assessment & Plan (1) Severe sepsis with acute organ dysfunction: (2) Suspected urinary tract infection: (3) Myocardial infarction due to demand ischemia: (4) Acute metabolic encephalopathy: (5) COPD (chronic obstructive pulmonary disease): (6) PAF (paroxysmal atrial fibrillation): (7) Uncontrolled hypertension: Plan Ms. Kae Johnston is a 73-year-old woman with multiple recent hospitalization and past medical history of nonobstructive CAD, PAF, HTN, HLD, COPD, hypothyroidism, GERD and more admitted on 03/03 for sepsis due to acute cystitis. Patient with NSTEMI type II iso sepsis. Cardiology following no acute changes to management. Patient continues to subjectively improve. Referrals for rehab sent 03/04. Medically stable for discharge upon bed availability/auth approval. #Abdominal discomfort #Stool burden on CT KUB as patient reports usual constipation and very "small" bm iso some vague discomfort Increased bowel regimen #Sepsis iso acute complicated cystitis -leukocytosis resolved -vital signs stable UA with ecoli, continue CTX while inpatient EOT 03/12 #NSTEMI type II no chest pain at this time, stable ECHO at 55-60% continue tele Continue conservative mgmt with plavix resume lasix #Paroxysmal a fib likely iso sepsis, converted NSR discontinued amiodarone (briefly started this admission) continue eliquis #HLD continue statin #HTN continue losartan and coreg resume lasix #hypothyroidism continue synthroid #generalized weakness PT/OT, recommended rehab #COPD continue home inhalers Resume all other chronic home medications Full code Dispo likely ready in 1-2 days once susceptibilities result, recommendation rehab Will continue IV abx while inpt Admission and Anticipated Discharge Date Admission Date: March 03, 2024 Subjective NAEO Reports feeling well overall and better every day Denies any new pains or symptoms Physical Exam Constitutional: WD/WN, vitals as above Respiratory: normal respiratory effort, lungs clear to auscultation Cardiovascular: RRR, no murmur, no edema Results & Data Results & Data Vital Signs (Past 12 Hours) Vital Signs Temp Pulse Pulse Pulse Resp BP BP 03/07/24 11:36 36.6 C 70 17 124/73 03/07/24 07:32 36.4 C L 51 L 17 136/76 03/07/24 07:25 03/07/24 06:58 50 L 03/07/24 02:55 36.4 C L 51 L 18 126/67 Pulse Ox O2 Del Method O2 Flow Rate 03/07/24 11:36 96 Nasal Cannula 2 03/07/24 07:32 99 Nasal Cannula 2 03/07/24 07:25 Nasal Cannula 2 03/07/24 06:58 03/07/24 02:55 100 Nasal Cannula 2 Laboratory Results Short CBC 03/07/24 Range/Units 06:03 WBC 10.53 (4.8-10.8) K/ul Hgb 9.2 L (12.0-16.0) g/dl Hct 29.2 L (37.0-47.0) % Plt Count 289 (130-400) K/uL BMP 03/07/24 06:03 Sodium 141 Potassium 4.9 D Chloride 106 Carbon Dioxide 33 H BUN 7 Creatinine 0.71 Glucose 82 Calcium 8.3 L Medications Administered Home Medications Medication Instructions Recorded Confirmed Last Taken multivitamin 1 tab PO DAILY #0 tabs 02/07/14 03/02/24 01/30/24 calcium 600 mg (as 1 tab PO QAM ##0 04/22/17 03/02/24 01/30/24 carbonate)-vitamin D3 10 mcg (400 unit) tablet (Calcium 600 + D(3)) omega 1-pay-pww-fish oil 1,000 mg 1 cap PO DAILY #0 caps 04/22/17 03/02/24 01/30/24 (120 mg-180 mg) capsule (Fish Oil) magnesium oxide 400 mg PO BID #0 tabs 06/01/17 03/02/24 01/30/24 alendronate 70 mg tablet 70 mg PO WK 12/06/23 03/02/24 01/25/24 apixaban 5 mg tablet (Eliquis) 5 mg PO BID 12/06/23 03/02/24 01/30/24 AM DOSE atorvastatin 40 mg tablet 40 mg PO QAM 12/06/23 03/02/24 01/30/24 citalopram 40 mg tablet 40 mg PO QAM 12/06/23 03/02/24 01/30/24 clopidogrel 75 mg tablet 75 mg PO QAM 12/06/23 03/02/24 01/30/24 fluticasone propionate 115 2 puff inhalation AMHS 12/06/23 03/02/24 01/30/24 mcg-salmeterol 21 mcg/actuation AM DOSE HFA inhaler gabapentin 300 mg capsule 300 mg PO TID 12/06/23 03/02/24 01/30/24 AM DOSE levothyroxine 25 mcg tablet 25 mcg PO DAILYBB 12/06/23 03/02/24 01/30/24 oxybutynin chloride 5 mg 5 mg PO QAM 12/06/23 03/02/24 01/30/24 tablet,extended release 24 hr potassium chloride 10 mEq 10 meq PO AMHS 12/06/23 03/02/24 01/30/24 tablet,extended AM DOSE release(part/cryst) (Klor-Con M) trazodone 50 mg tablet 100 mg PO HS 12/06/23 03/02/24 01/29/24 nitroglycerin 0.4 mg sublingual 0.4 mg sublingual Q5M PRN chest 12/09/23 03/02/24 Unknown tablet (Nitrostat) pain #30 tabs umeclidinium 62.5 mcg/actuation 1 inh inhalation DAILY #30 ea 12/14/23 03/02/24 01/30/24 blister powder for inhalation (Incruse Ellipta) ipratropium 0.5 mg-albuterol 3 mg 3 ml NEB QIDR PRN shortness of 12/28/23 03/02/24 Unknown (2.5 mg base)/3 mL nebulization breath #90 mL soln albuterol sulfate 90 mcg/actuation 2 puff inhalation Q4 PRN WHEEZING 01/30/24 03/02/24 Unknown aerosol inhaler OR COUGH amiodarone 200 mg tablet 200 mg PO QAM 01/30/24 03/02/24 01/30/24 pantoprazole 40 mg tablet,delayed 40 mg PO QAM 01/30/24 03/02/24 01/30/24 release (Protonix) carvedilol 12.5 mg tablet 12.5 mg PO BID #0 tabs 02/02/24 03/02/24 01/30/24 AM DOSE furosemide 40 mg tablet 20 mg (1/2 x 40 mg) PO QAM #0 tabs 02/02/24 03/02/24 01/30/24 tiotropium bromide 18 mcg capsule 1 cap inhalation QAM 03/02/24 03/02/24 Unknown with inhalation device Active Medications Generic Name Dose Route Start Last Admin Trade Name Freq PRN Reason Stop Dose Admin Acetaminophen 650 mg 03/03/24 05:31 03/07/24 04:44 Acetaminophen 325 Mg Tab PO 04/02/24 05:30 650 mg Q4H PRN Administration Pain or Fever Apixaban 5 mg 03/03/24 09:00 03/07/24 07:55 Apixaban 5 Mg Tablet PO 04/02/24 08:59 5 mg BID GELACIO Administration Atorvastatin Calcium 40 mg 03/03/24 09:00 03/07/24 07:55 Atorvastatin 40 Mg Tab PO 04/02/24 08:59 40 mg QAM GELACIO Administration Calcium/Vitamin D 1 tab 03/03/24 09:00 03/07/24 07:55 Calcium 600mg + Vit D 400 Iu Tab PO 04/02/24 08:59 1 tab QAM GELACIO Administration Carvedilol 3.125 mg 03/06/24 21:00 03/07/24 07:57 Carvedilol 3.125 Mg Tab PO 04/05/24 20:59 Not Given BID GELACIO Citalopram Hydrobromide 40 mg 03/03/24 09:00 03/07/24 07:55 Citalopram 40 Mg Tab PO 04/02/24 08:59 40 mg QAM GELACIO Administration Clopidogrel Bisulfate 75 mg 03/03/24 09:00 03/07/24 07:55 Clopidogrel Bisulfate 75 Mg Tab PO 04/02/24 08:59 75 mg QAM GELACIO Administration Fluticasone/Vilanterol 1 puffs 03/03/24 09:00 03/07/24 07:56 Fluticasone/Vilanterol 200/25mcg 14 Puffs/Inhaler INH 04/02/24 08:59 1 puffs DAILY GELACIO Administration Gabapentin 300 mg 03/03/24 09:00 03/07/24 07:54 Gabapentin 300 Mg Cap PO 04/02/24 08:59 300 mg TID GELACIO Administration Ceftriaxone Sodium 2,000 mg in 50 mls @ 100 mls/hr 03/03/24 22:00 03/06/24 22:21 Rocephin IV 03/08/24 21:59 Infused Q24H GELACIO Infusion Levothyroxine Sodium 25 mcg 03/03/24 06:30 03/07/24 06:02 Levothyroxine Sodium 25 Mcg Tablet PO 04/02/24 06:29 25 mcg DAILYBB GELACIO Administration Losartan Potassium 25 mg 03/03/24 09:00 03/07/24 07:56 Losartan Potassium 25 Mg Tab PO 04/02/24 08:59 25 mg QAM GELACIO Administration Magnesium Oxide 400 mg 03/03/24 09:00 03/07/24 07:55 Magnesium Oxide 400 Mg Tab PO 04/02/24 08:59 400 mg BID GELACIO Administration Multivitamins 1 tab 03/03/24 09:00 03/07/24 07:56 Multivitamin Tab PO 04/02/24 08:59 1 tab DAILY GELACIO Administration Oxybutynin Chloride 5 mg 03/03/24 09:00 03/07/24 07:55 Oxybutynin Chloride Xl 5 Mg Tabcr PO 04/02/24 08:59 5 mg QAM GELACIO Administration Pantoprazole Sodium 40 mg 03/03/24 09:00 03/07/24 07:56 Pantoprazole 40 Mg Tab PO 04/02/24 08:59 40 mg QAM GELACIO Administration Polyethylene Glycol 17 gm 03/07/24 09:00 03/07/24 09:28 Polyethylene (Miralax) 17 Gm Pack PO 04/06/24 08:59 17 gm DAILY GELACIO Administration Umeclidinium [place] 1 puffs 03/03/24 09:00 03/07/24 07:56 Umeclidinium [place] 62.5mcg/Blister 7 Puffs/Inhaler INH 04/02/24 08:59 1 puffs DAILY GELACIO Administration
[2024-03-08 07:13] LABS: Hematocrit (blood only) 27.5 % (37.0-47.0); Hemoglobin 8.8 g/dl (12.0-16.0); Mean Corpuscular Hemoglobin 30.7 pg (25.0-34.0); Mean Corpuscular Volume 95.8 fL (80.0-100.0); Mean Platelet Volume 9.1 fL (9.4-12.4); Platelet Count 297 K/uL (130-400); RDW Coefficient of Variation 13.9 % (11.5-14.5); RDW Standard Deviation 48.7 fL (36.4-46.3); Red Blood Count 2.87 M/uL (4.20-5.40)
[2024-03-08 07:31] LABS: BUN Creatinine Ratio 10.1 (10-20); Calcium 8.1 mg/dl (8.6-10.3); Creatinine Clr Calc Pharmacy 47.1 ml/min; Potassium 4.1 mmol/L (3.5-5.1)
--- NOTE | 2024-03-08 07:54 | Discharge Summary ---
Discharge Summary Date of Service March 08, 2024 Principal Dx & Hospital Course #1 = Principal Diagnosis (1) Severe sepsis with acute organ dysfunction: (2) Suspected urinary tract infection: (3) Myocardial infarction due to demand ischemia: (4) Acute metabolic encephalopathy: (5) COPD (chronic obstructive pulmonary disease): (6) PAF (paroxysmal atrial fibrillation): (7) Uncontrolled hypertension: Plan Ms. Kae Johnston is a 73-year-old woman with multiple recent hospitalization and past medical history of nonobstructive CAD, PAF, HTN, HLD, COPD, hypothyroidism, GERD and more admitted on 03/03 for sepsis due to acute cystitis. Patient also found to have NSTEMI type II iso sepsis. Cardiology following no acute changes to management. Patient continued to improve on antibiotics. Blood pressure medications adjusted. Patient started on Losartan 25mg daily and her coreg reduced to 3.125 bid. Patient's course prolonged while awaiting rehab; however, patient continued to improved and deemed save for home. Patient eating well and functioning independently. Script for OPPT was provided. On day of discharge, patient denied any pain or other concerns. S #Abdominal discomfort *resolved #Stool burden on CT KUB as patient reports usual constipation and very "small" bm iso some vague discomfort Increased bowel regimen #Sepsis iso acute complicated cystitis -leukocytosis resolved -vital signs stable UA with ecoli, continue CTX while inpatient EOT 03/12--transitioned to cefuroxime bid #NSTEMI type II no chest pain at this time, stable ECHO at 55-60% continue tele Continue conservative mgmt with plavix resume lasix #Paroxysmal a fib likely iso sepsis, converted NSR discontinued amiodarone (briefly started this admission) continue eliquis coreg dose reduced to 3.125mg bid iso borderline/asymptomatic HRs #HLD continue statin #HTN continue losartan and coreg resume lasix #hypothyroidism continue synthroid resume all other home meds Notes For Next Care Provider Medication Changes From Visit Start losartan 25mg daily Reduced coreg 3.125mg BID cfuroxime bid x 5 more days Admission HPI Per Admitting Provider 73-year-old female with past medical history significant for chronic respiratory failure with hypoxia on home oxygen, COPD, chronic nonspecific lung disease, hyperlipidemia, hypothyroidism, CAD status post stent, history of A-fib, history of hematuria, osteoarthritis, history of migraine, general anxiety , tobacco use disorder, ambulatory dysfunction and who lives with her daughter was brought in because of weakness and found to UTI and elevated troponin. As per daughter since last 3 days patient is feeling very weak and not able to get up from the bed. And also not taking her pills for last 3 days. She is not even getting up to go to the bathroom. Was feeling feverish. Was feeling nausea. Very poor oral intake. Usually ambulates without support as per daughter. Patient currently alert and oriented x 3. Denies any headache. No runny nose or sore throat. Says has some cough. Says has mild chest pain. Says sometimes she feels short of breath. Denies abdominal pain. Says constipated. Patient says she is not micturating much. Hemodynamics are okay currently. Patient was in the hospital in January 2024 with gastroenteritis and diarrhea illness, GUTIERREZ and hypotension. She was treated with azithromycin for possible COPD exacerbation and with Keflex for E. coli UTI. She required 1 unit of PRBCs last admission and received Lasix. At the discharge she was restarted on low-dose of Lasix and Aldactone was held. Past medical history. As mentioned above. Past surgical history. Bone marrow aspiration. Colonoscopy. Exploration of abdomen. Fusion of mid foot joint. Cardiac catheterization. Ligation of oviducts. Appendectomy. Cholecystectomy. Left ruptured rotator cuff repair. Sigmoidoscopy with biopsy. Social history. . Smokes 0.5 pack a day for last 70 years. No alcohol use. No drug use. Family history. Aunt had breast cancer. Father had brain cancer. Paternal grandfather had lung cancer. Father had diabetes. Mother had diabetes. Eye problems. CHF. A-fib. Stroke. Admission Exam Per Admitting Provider General- Not in acute distress Head- atraumatic Eyes- PERRL. ENT- oropharynx clear Neck- supple, no JVD. Lungs- clear to auscultation , no wheezing or crackles Heart- regular rate and rhythm; no murmur, no gallop. Abdomen- normal bowel sounds, soft, nontender, no distension Extremities- no pretibial edema, no erythema seen Neuro- alert, oriented x 3; PERRL, no facial palsy; no dysarthria; obeys simple commands, moves extremities. Skin- warm & dry Discharge Exam Constitutional WD/WN, vitals as above Respiratory normal respiratory effort, lungs clear to auscultation Cardiovascular RRR, no murmur, no edema Updated Medication List Medication Instructions Recorded Confirmed Type multivitamin 1 tab PO DAILY #0 tabs 02/07/14 03/02/24 History calcium 600 mg (as 1 tab PO QAM ##0 04/22/17 03/02/24 History carbonate)-vitamin D3 10 mcg (400 unit) tablet (Calcium 600 + D(3)) omega 4-hhb-cqk-fish oil 1,000 mg 1 cap PO DAILY #0 caps 04/22/17 03/02/24 History (120 mg-180 mg) capsule (Fish Oil) magnesium oxide 400 mg PO BID #0 tabs 06/01/17 03/02/24 History alendronate 70 mg tablet 70 mg PO WK 12/06/23 03/02/24 History apixaban 5 mg tablet (Eliquis) 5 mg PO BID 12/06/23 03/02/24 History atorvastatin 40 mg tablet 40 mg PO QAM 12/06/23 03/02/24 History citalopram 40 mg tablet 40 mg PO QAM 12/06/23 03/02/24 History clopidogrel 75 mg tablet 75 mg PO QAM 12/06/23 03/02/24 History fluticasone propionate 115 2 puff inhalation AMHS 12/06/23 03/02/24 History mcg-salmeterol 21 mcg/actuation HFA inhaler gabapentin 300 mg capsule 300 mg PO TID 12/06/23 03/02/24 History levothyroxine 25 mcg tablet 25 mcg PO DAILYBB 12/06/23 03/02/24 History oxybutynin chloride 5 mg 5 mg PO QAM 12/06/23 03/02/24 History tablet,extended release 24 hr potassium chloride 10 mEq 10 meq PO AMHS 12/06/23 03/02/24 History tablet,extended release(part/cryst) (Klor-Con M) trazodone 50 mg tablet 100 mg PO HS 12/06/23 03/02/24 History nitroglycerin 0.4 mg sublingual 0.4 mg sublingual Q5M PRN chest 12/09/23 03/02/24 Rx tablet (Nitrostat) pain #30 tabs umeclidinium 62.5 mcg/actuation 1 inh inhalation DAILY #30 ea 12/14/23 03/02/24 Rx blister powder for inhalation (Incruse Ellipta) ipratropium 0.5 mg-albuterol 3 mg 3 ml NEB QIDR PRN shortness of 12/28/23 03/02/24 Rx (2.5 mg base)/3 mL nebulization breath #90 mL soln albuterol sulfate 90 mcg/actuation 2 puff inhalation Q4 PRN WHEEZING 01/30/24 03/02/24 History aerosol inhaler OR COUGH pantoprazole 40 mg tablet,delayed 40 mg PO QAM 01/30/24 03/02/24 History release (Protonix) furosemide 40 mg tablet 20 mg (1/2 x 40 mg) PO QAM #0 tabs 02/02/24 03/02/24 Rx tiotropium bromide 18 mcg capsule 1 cap inhalation QAM 03/02/24 03/02/24 History with inhalation device carvedilol 3.125 mg tablet 3.125 mg PO BID 30 days #60 tabs 03/08/24 Rx cefuroxime axetil 250 mg tablet 250 mg PO BID 5 days #10 tabs 03/08/24 Rx losartan 25 mg tablet 25 mg PO QAM 30 days #30 tabs 03/08/24 Rx Hospital Stay Data Consultations 03/02/24 22:25 ED Decision to Admit Stat 03/03/24 08:00 Consult Cardiology Routine Diagnostic Imagining Performed 03/02/24 19:49 CT head/brain wo con Stat 03/06/24 14:27 CT Abd and Pelvis [CT abd pelvis IV con only] Routine Pending Results Patient Have Any Pending Studies at Discharge: No Discharge Instructions Given to Patient (Per Discharging Provider) You were admitted for concern of dizziness and found to be septic with a urinary tract infection. You improved with antibiotics. You were seen by cardiology given strain on your heart from infection. The following medications adjustments were made: -Start Losartan 25mg daily for blood pressure -Change Carvedilol from 12.5mg two times a day to 3.125mg two times a day -Start Cefuroxime 250mg two times a day, your next dose is this evening (cont inue until all tablets are gone) Total Time Total Time Spent Total Time Spent (In Minutes): 45
[2024-03-08] MEDS: FUROSEMIDE 20 MG TAB PO SCH (09:42)
[2024-03-08 11:37] VITALS: RESP 20; TEMP 97.3; O2SAT 98
[2024-03-08 12:04] VITALS: BP 127/65
[2024-03-08 14:38] VITALS: PULSE 55
== END 2024-03-08 16:07 | disposition home health service (06) | DRG 871 ==
LOC: ED 19:36 → SUATTDRO 03-03 02:51 → 2E 03-03 02:51 → 2N 03-05 19:03

== ENCOUNTER 2024-03-15 17:45 | Inpatient (IN) ==
[2024-03-15 18:41] LABS: iSTAT Creatinine 0.9 mg/dl (0.6-1.3); iSTAT Hemoglobin 12.9 g/dl (12.0-16.0); iSTAT Ionized Calcium 1.16 mmol/l (1.12-1.32); iSTAT Potassium 3.5 mmol/L (3.3-5.0)
[2024-03-15 18:43] LABS: Basophils # (auto) 0.04 K/uL (0.00-0.20); Basophils % (auto) 0.2 %; Eosinophils # (auto) 0.09 K/uL (0.00-0.50); Eosinophils % (auto) 0.6 %; Hematocrit (blood only) 35.3 % (37.0-47.0); Hemoglobin 11.4 g/dl (12.0-16.0); Immature Granulocytes # (auto) 0.15 K/uL (0.01-0.20); Immature Granulocytes % (auto) 0.9 %; Lymphocytes # (auto) 1.39 K/uL (1.20-3.40); Lymphocytes % (auto) 8.6 %; Mean Corpuscular Hemoglobin 30.9 pg (25.0-34.0); Mean Corpuscular Hgb Conc 32.3 g/dL (32.0-36.0); Mean Corpuscular Volume 95.7 fL (80.0-100.0); Mean Platelet Volume 8.7 fL (9.4-12.4); Monocytes # (auto) 0.66 K/uL (0.11-0.59); Monocytes % (auto) 4.1 %; Neutrophils # (auto) 13.82 K/uL (1.40-6.50); Neutrophils % (auto) 85.6 %; Platelet Count 476 K/uL (130-400); RDW Standard Deviation 49.3 fL (36.4-46.3); Red Blood Count 3.69 M/uL (4.20-5.40); White Blood Count 16.15 K/ul (4.8-10.8)
--- NOTE | 2024-03-15 18:44 | Emergency Department Note ---
Impression & Plan Fall, Fracture of distal end of left humerus, Contusion of face, Anticoagulant long-term use, Acute pain of left knee ED Provider Note Provider: Nick Bowman MD CHIEF COMPLAINT: Fall 4 days ago HISTORY OF PRESENT ILLNESS: Patient is a 73-year-old female past medical history including CAD, sepsis/UTI, COPD, paroxysmal A-fib on Eliquis, and hypertension presenting here today with daughter reporting that she fell about 4 days ago. Daughter states that she has for some grapes and the daughter went to get these with the patient was and patient got up and fell to the floor hardwood floor in the bedroom. Landed on her left side. No loss of consciousness. Daughter helped up. Patient refused to come to the hospital. Had some bruising and mild tenderness to the left eye and face as well as significant left elbow pain and some pain of the left knee. No significant neck pain, chest pain, trouble breathing, or abdominal pain reported by the patient. Denies significant hip pain or injury to the right arm or leg. Given worsening pain of the left elbow and significant thenar eminence and thumb but no significant tenderness of the left hand wrist or snuffbox. Soft compartments of the bilateral forearms. No tenderness of the left shoulder. Significant swelling and tenderness surrounding left elbow which is flexed about 90 degrees and not moving. Face daughter finally convinced the patient to come in for evaluation today. Is able to feel gross touch of the left hand but unable to move the left elbow due to pain and swelling here. Has been maintained on Eliquis and Plavix. PAST MEDICAL HISTORY: As noted above MEDICATIONS: Reviewed home education SOCIAL HISTORY: Lives at home with daughter PHYSICAL EXAM: GENERAL: alert and oriented in no acute distress on stretcher daughter at bedside Head: Patient with large contusion/ecchymosis surrounding the left eye to the left cheek EYES: No injection, discharge or icterus. PERRL, EOMI. NECK: Trachea midline. Supple without posterior midline tenderness ENT: Mucous membranes pink and moist. LUNGS: Airway patent. No retractions. Breath sounds clear with good air entry bilaterally. HEART: Regular rate and rhythm. No chest wall tenderness ABDOMEN: Soft and non-tender, without guarding or rebound. Stable pelvis. SKIN: Acyanotic, warm, dry, without rashes EXTREMITIES: Without swelling, tenderness or deformity of the right upper arm or leg with some contusion and mild tenderness of the left knee without crepitus. NEUROLOGICAL: No focal deficits. No aphasia. No facial droop or slurred speech. Gross sensation intact in in the hands and feet. EK bpm normal sinus rhythm. No PVC or PAC. No acute ST segment elevation with some nonspecific diffuse T wave inversions with a QTc of 553. Compared to previous from March 03 appears to be in sinus rhythm as opposed A-fib/flutter but T wave versions appear persistent CONTINUOUS CARDIAC MONITORING: was ordered and showed a heart rate of 60s bpm in normal sinus rhythm occasional PAC. GCS 15. Patient's laboratory studies and imaging reviewed. Differential includes Fracture, dislocation, contusion, intra-abdominal, pneumothorax, intrathoracic, intracranial, neurologic, compartment syndrome, rhabdomyolysis, as well as other pathologies. IMPRESSION/MEDICAL DECISION MAKING: Signs of mechanical type fall 4 days ago. Trauma alerted and evaluated quickly in room a 11. ATLS survey with ABCDE evaluated without severe deficits beyond mobility issues of the left elbow noted. Evidence of contusion to the left eye and face as well as significant swelling to the left elbow. Does not seem to have compartment syndrome. Some slight tenderness to the left knee but no obvious deformity. Chest extremities x-ray obtained. Given her Eliquis usage and Plavix usage kent scan obtained given the fall. No fevers reported but blood work does indicate a leukocytosis of 16. And hemoglobin 11.4 somewhat elevated. Question possibly some dehydration as she has been more or less bedbound since the fall versus stress reaction. No findings of acute kidney injury or severe electrolyte abnormality otherwise noted. CK sent to help exclude rhabdomyolysis. X-rays do not show obvious fracture to the left knee or wrist/hand but evidence of a distal humerus fracture is noted. Discussed with orthopedics and will splint at this time. Neurovascular intact distally. No severe electrolyte abnormalities given her chronic respiratory issues and oxygen usage. Creatinine normal. CK normal. No LFT abnormalities or evidence of hepatitis or pancreatitis. Troponin elevated at 192 actually improved from previous and likely chronic. CT head and cervical spine without evidence of intracranial bleed or fracture. Soft tissue hematoma notable but no acute intervention needed for this. No facial fractures related. No significant chest abdomen pelvis trauma reported on CT reports. Discussed with orthopedics on-call (Dr. Moreira [facility]) regarding elbow and as it is neurovascular intact and close splinted and they will follow along with the patient for definite repair and treatment. Given her falls some discomfort which has improved the fentanyl do believe however she is not a position to go home and we will admit her to the hospital. Hospitalist team was consulted and case discussed. DIAGNOSIS: Fall, facial contusion, left knee pain, left distal humerus fracture, long-term anticoagulation DISPOSITION: Hospitalist will evaluate Patient was agreeable with this plan. PROCEDURE: splint placement Indications for procedure: Left distal humerus fracture Description of the procedure: Long-arm posterior Ortho-Glass splint was placed on the patient's left upper extremity. Neurovascular status was intact after placement of the splint. PATIENT CONDITION AFTER PROCEDURE: good Past Med/Surg History Problem List (Updated 03/15/24 @ 23:08 by Nick Bowman M.D.) Acute pain of left knee (Acute) Anticoagulant long-term use (Acute) Contusion of face (Acute) Fracture of distal end of left humerus (Acute) Fall (Acute) Acute metabolic encephalopathy Myocardial infarction due to demand ischemia Suspected urinary tract infection Severe sepsis with acute organ dysfunction Sepsis Epigastric abdominal tenderness Intravascular volume depletion Non-ST elevation GA (NSTEMI) (Acute) Acute dyspnea (Acute) Generalized weakness (Acute) Acute on chronic anemia E. coli UTI Acute dehydration (Acute) COPD (chronic obstructive pulmonary disease) (Acute) GUTIERREZ (acute kidney injury) (Acute) COPD (chronic obstructive pulmonary disease) (Acute) Acute and chronic postprocedural respiratory failure (Acute) COPD with exacerbation Elevated troponin level (Acute) Acute on chronic respiratory failure with hypoxia and hypercapnia (Acute) COPD (chronic obstructive pulmonary disease) (Acute) Dyslipidemia, goal LDL below 70 PAF (paroxysmal atrial fibrillation) Uncontrolled hypertension ASCVD (arteriosclerotic cardiovascular disease) Chest pain at rest Thickened endometrium Elevated brain natriuretic peptide (BNP) level (Acute) Nausea & vomiting (Acute) Chest pain (Acute) Asthma exacerbation (Acute) Gastroenteritis (Acute) Fall in home (Acute) CHI (closed head injury) (Acute) Scalp laceration (Acute) Facial laceration (Acute) Heart disease HTN (hypertension) Kidney disease Bronchitis Fall in home (Acute) Hyponatremia (Acute) Hypokalemia (Acute) Abdominal pain Diarrhea Vomiting Medical History Absent pedal pulses Macular degeneration Asthma Tobacco use disorder Coronary atherosclerosis of [place] coronary vessel Benign hypertension Atrial fibrillation Diabetes Surgical History H/O heart surgery History of cholecystectomy Hx of tubal ligation Social History Smoking Status: Current every day smoker Tobacco Type: Cigarettes Cigarettes Per Day: 5; Second Hand Exposure: No; Do You Dip or Chew Tobacco: No; Hx Alcohol Use: No Hx Substance Use: No Preferred Language: Serbian Communication Ability: Effective Medical Sales Associate Required: No Beliefs That Will Affect Care: None Current Living Situation: Family Current Living Situation Comment: with daughter Feels Safe at Home: Yes Assistive Devices: Cane, Nebulizer, Oxygen - Continuous, Walker and Wheelchair Allergies Allergies Allergy/AdvReac Type Severity Reaction Status Date / Time bee venom protein (honey bee) Allergy Severe SWELLING Verified 01/30/24 16:12 SEVERE doxycycline Allergy Intermediate Vomiting Verified 01/30/24 16:12 Home Meds Home Medications Medication Instructions Recorded Confirmed multivitamin 1 tab PO DAILY #0 tabs 02/07/14 03/15/24 calcium 600 mg (as 1 tab PO QAM ##0 04/22/17 03/15/24 carbonate)-vitamin D3 10 mcg (400 unit) tablet (Calcium 600 + D(3)) omega 3-tgk-svp-fish oil 1,000 mg 1 cap PO DAILY #0 caps 04/22/17 03/15/24 (120 mg-180 mg) capsule (Fish Oil) magnesium oxide 400 mg PO BID #0 tabs 06/01/17 03/15/24 apixaban 5 mg tablet (Eliquis) 5 mg PO BID 12/06/23 03/15/24 atorvastatin 40 mg tablet 40 mg PO QAM 12/06/23 03/15/24 citalopram 40 mg tablet 40 mg PO QAM 12/06/23 03/15/24 clopidogrel 75 mg tablet 75 mg PO QAM 12/06/23 03/15/24 fluticasone propionate 115 2 puff inhalation AMHS 12/06/23 03/15/24 mcg-salmeterol 21 mcg/actuation HFA inhaler gabapentin 300 mg capsule 300 mg PO BID 12/06/23 03/15/24 levothyroxine 25 mcg tablet 25 mcg PO DAILYBB 12/06/23 03/15/24 oxybutynin chloride 5 mg 5 mg PO QAM 12/06/23 03/15/24 tablet,extended release 24 hr potassium chloride 10 mEq 10 meq PO AMHS 12/06/23 03/15/24 tablet,extended release(part/cryst) (Klor-Con M) trazodone 50 mg tablet 100 mg PO HS 12/06/23 03/15/24 albuterol sulfate 90 mcg/actuation 2 puff inhalation Q4 PRN WHEEZING 01/30/24 03/15/24 aerosol inhaler OR COUGH pantoprazole 40 mg tablet,delayed 40 mg PO QAM 01/30/24 03/15/24 release (Protonix) tiotropium bromide 18 mcg capsule 1 cap inhalation QAM 03/02/24 03/15/24 with inhalation device alendronate 70 mg tablet 70 mg PO WK 03/15/24 03/15/24 Previous Rx's Medication Instructions Recorded nitroglycerin 0.4 mg sublingual 0.4 mg sublingual Q5M PRN chest 12/09/23 tablet (Nitrostat) pain #30 tabs umeclidinium 62.5 mcg/actuation 1 inh inhalation DAILY #30 ea 12/14/23 blister powder for inhalation (Incruse Ellipta) ipratropium 0.5 mg-albuterol 3 mg 3 ml NEB QIDR PRN shortness of 12/28/23 (2.5 mg base)/3 mL nebulization breath #90 mL soln furosemide 40 mg tablet 20 mg (1/2 x 40 mg) PO QAM #0 tabs 02/02/24 carvedilol 3.125 mg tablet 3.125 mg PO BID 30 days #60 tabs 03/08/24 losartan 25 mg tablet 25 mg PO QAM 30 days #30 tabs 03/08/24 Results & Data (ED) Vital Signs Vital Signs - 24 hr 03/15/24 17:58 03/15/24 18:06 03/15/24 18:06 Temperature 36.3 C L 36.5 C 36.5 C Temperature Source Temporal Artery Scan Oral Pulse Rate 127 H 65 Pulse Rate [Apical] 65 Pulse Rhythm [Apical] Pulse Strength [Bilateral Carotid] Normal Respiratory Rate 20 18 19 Respiratory Effort / Characteristics Non-Labored Spontaneous Respiratory Depth Normal Blood Pressure 95/62 L 103/60 Blood Pressure [Right Arm] 103/60 Blood Pressure Mean 73 Blood Pressure Mean [Right Arm] 74 Blood Pressure Position [Right Arm] Lying Pulse Oximetry 97 93 93 Oxygen Delivery Method Room Air Room Air Nasal Cannula Oxygen Flow Rate 3 Sepsis Recent Fever Within 48 Hours No Sepsis New/Unexplained Change in Mental Status N/A Sepsis Action Taken by Nursing No Action Required 03/15/24 18:09 03/15/24 18:11 03/15/24 19:03 Temperature Temperature Source Pulse Rate 64 70 Pulse Rate [Apical] Pulse Rhythm [Apical] Pulse Strength [Bilateral Carotid] Respiratory Rate 17 Respiratory Effort / Characteristics Respiratory Depth Blood Pressure 158/81 H Blood Pressure [Right Arm] Blood Pressure Mean 106 Blood Pressure Mean [Right Arm] Blood Pressure Position [Right Arm] Pulse Oximetry 99 Oxygen Delivery Method Nasal Cannula Oxygen Flow Rate 3 Sepsis Recent Fever Within 48 Hours Sepsis New/Unexplained Change in Mental Status Sepsis Action Taken by Nursing 03/15/24 20:00 03/15/24 20:15 03/15/24 21:00 Temperature Temperature Source Pulse Rate 70 Pulse Rate [Apical] 67 Pulse Rhythm [Apical] Regular Pulse Strength [Bilateral Carotid] Respiratory Rate 16 18 Respiratory Effort / Characteristics Non-Labored Respiratory Depth Normal Blood Pressure 110/74 Blood Pressure [Right Arm] 140/50 L Blood Pressure Mean 86 Blood Pressure Mean [Right Arm] 80 Blood Pressure Position [Right Arm] Pulse Oximetry Oxygen Delivery Method Nasal Cannula Nasal Cannula Oxygen Flow Rate 2 3 Sepsis Recent Fever Within 48 Hours Sepsis New/Unexplained Change in Mental Status Sepsis Action Taken by Nursing Laboratory Data 03/15/24 18:20 03/15/24 18:20 Lab Results 03/15/24 03/15/24 03/15/24 Range/Units 18:20 18:25 18:29 WBC 16.15 H (4.8-10.8) K/ul RBC 3.69 L (4.20-5.40) M/uL Hgb 11.4 L (12.0-16.0) g/dl POC Hgb 12.9 (12.0-16.0) g/dl Hct 35.3 L (37.0-47.0) % POC Hct 38 (37-47) % MCV 95.7 (80.0-100.0) fL MCH 30.9 (25.0-34.0) pg MCHC 32.3 (32.0-36.0) g/dL RDW Std Deviation 49.3 H (36.4-46.3) fL RDW Coeff of Hcet 14.0 (11.5-14.5) % Plt Count 476 H (130-400) K/uL MPV 8.7 L (9.4-12.4) fL Immature Gran % (Auto) 0.9 % Neut % (Auto) 85.6 % Lymph % (Auto) 8.6 % [place] % (Auto) 4.1 % Eos % (Auto) 0.6 % Baso % (Auto) 0.2 % Neut # (Auto) 13.82 H (1.40-6.50) K/uL Lymph # (Auto) 1.39 (1.20-3.40) K/uL [place] # (Auto) 0.66 H (0.11-0.59) K/uL Eos # (Auto) 0.09 (0.00-0.50) K/uL Baso # (Auto) 0.04 (0.00-0.20) K/uL Immature Gran # (Auto) 0.15 (0.01-0.20) K/uL PT 11.5 (9.0-12.0) Seconds INR 1.1 (0.9-1.1) APTT 31 (21-31) Seconds PTT Ratio 1.2 POC Sodium 134 L (135-144) mmol/L Sodium 136 (136-145) mmol/L POC Potassium 3.5 (3.3-5.0) mmol/L Potassium 3.6 (3.5-5.1) mmol/L POC Chloride 89 L (101-112) mmol/L Chloride 90 L (98-107) mmol/L Carbon Dioxide 39 H (21-32) mmol/L POC Total CO2 36 H (24-31) mmol/L Anion Gap 7 (3-11) POC Anion Gap 13.0 L (16-25) mmol/L POC BUN 11 (7-18) mg/dl BUN 12 (6-23) mg/dl Creatinine 0.85 (0.6-1.2) mg/dl POC Creatinine 0.9 (0.6-1.3) mg/dl Est Cr Clr Drug Dosing Not Reportable eGFR 71.85 BUN/Creatinine Ratio 14.1 (10-20) Glucose 110 H (70-99(Fasting)) mg/dl POC Glucose (other) 106 H (70-99) mg/dl Calcium 9.5 (8.6-10.3) mg/dl POC Ioniz Calcium Tabitha 1.16 (1.12-1.32) mmol/l Magnesium 1.7 (1.7-2.4) mg/dl Total Bilirubin 0.9 (0.2-1.0) mg/dl AST 22 (13-39) U/L ALT 15 (7-52) U/L Alkaline Phosphatase 93 (34-104) U/L Total Creatine Kinase 107 (26-192) U/L Troponin I High Sens 192.6 H* (0-14) pg/ml Total Protein 7.0 (6.0-8.3) gm/dl Albumin 3.6 (3.4-5.0) gm/dl Globulin 3.4 (2.5-4.0) gm/dl Albumin/Globulin Ratio 1.1 (0.9-2) Lipase 14 (11-82) U/L Urine Color Urine Appearance (Clear) Urine pH (4.5-7.5) Ur Specific [place] (1.000-1.030) Urine Protein (Negative) Urine Glucose (UA) (Negative) Urine Ketones (Negative) Urine Blood (Negative) Urine Nitrite (Negative) Urine Bilirubin (Negative) Urine Urobilinogen (Negative) Ur Leukocyte Esterase (Negative) Blood Type O Positive Antibody Screen NEGATIVE 03/15/24 03/15/24 Range/Units 20:15 22:15 WBC (4.8-10.8) K/ul RBC (4.20-5.40) M/uL Hgb (12.0-16.0) g/dl POC Hgb (12.0-16.0) g/dl Hct (37.0-47.0) % POC Hct (37-47) % MCV (80.0-100.0) fL MCH (25.0-34.0) pg MCHC (32.0-36.0) g/dL RDW Std Deviation (36.4-46.3) fL RDW Coeff of [place] (11.5-14.5) % Plt Count (130-400) K/uL MPV (9.4-12.4) fL Immature Gran % (Auto) % Neut % (Auto) % Lymph % (Auto) % [place] % (Auto) % Eos % (Auto) % Baso % (Auto) % Neut # (Auto) (1.40-6.50) K/uL Lymph # (Auto) (1.20-3.40) K/uL [place] # (Auto) (0.11-0.59) K/uL Eos # (Auto) (0.00-0.50) K/uL Baso # (Auto) (0.00-0.20) K/uL Immature Gran # (Auto) (0.01-0.20) K/uL PT (9.0-12.0) Seconds INR (0.9-1.1) APTT (21-31) Seconds PTT Ratio POC Sodium (135-144) mmol/L Sodium (136-145) mmol/L POC Potassium (3.3-5.0) mmol/L Potassium (3.5-5.1) mmol/L POC Chloride (101-112) mmol/L Chloride (98-107) mmol/L Carbon Dioxide (21-32) mmol/L POC Total CO2 (24-31) mmol/L Anion Gap (3-11) POC Anion Gap (16-25) mmol/L POC BUN (7-18) mg/dl BUN (6-23) mg/dl Creatinine (0.6-1.2) mg/dl POC Creatinine (0.6-1.3) mg/dl Est Cr Clr Drug Dosing eGFR BUN/Creatinine Ratio (10-20) Glucose (70-99(Fasting)) mg/dl POC Glucose (other) (70-99) mg/dl Calcium (8.6-10.3) mg/dl POC Ioniz Calcium Tabitha (1.12-1.32) mmol/l Magnesium (1.7-2.4) mg/dl Total Bilirubin (0.2-1.0) mg/dl AST (13-39) U/L ALT (7-52) U/L Alkaline Phosphatase (34-104) U/L Total Creatine Kinase 95 (26-192) U/L Troponin I High Sens 178.7 H* (0-14) pg/ml Total Protein (6.0-8.3) gm/dl Albumin (3.4-5.0) gm/dl Globulin (2.5-4.0) gm/dl Albumin/Globulin Ratio (0.9-2) Lipase (11-82) U/L Urine Color Yellow Urine Appearance Cloudy A (Clear) Urine pH 5.5 (4.5-7.5) Ur Specific [place] 1.021 (1.000-1.030) Urine Protein Negative (Negative) Urine Glucose (UA) Negative (Negative) Urine Ketones Negative (Negative) Urine Blood Negative (Negative) Urine Nitrite Negative (Negative) Urine Bilirubin Negative (Negative) Urine Urobilinogen Negative (Negative) Ur Leukocyte Esterase 2+ H (Negative) Blood Type Antibody Screen Administered Medications Discontinued Medications Fentanyl Citrate (Fentanyl Citrate Pf 100 Mcg/2 Ml Vial) 50 mcg IV NOW STA Stop: 03/15/24 18:43 Last Admin: 03/15/24 19:16 Dose: 50 mcg Documented By: MELISSA Ioversol (Optiray 320 100ml) 90 ml IV ONCE ONE Stop: 03/15/24 18:51 Last Admin: 03/15/24 18:50 Dose: 90 ml Documented By: STEPHANIE Imaging Data Radiologist's Impression: Chest X-Ray 03/15/24 18:09 EXAM: XR chest 1V portable CLINICAL HISTORY: FALL MRN/KFK TECHNIQUE: An X-ray image of the chest is obtained in AP projection. COMPARISON: 03/02/2024 CR. FINDINGS: Pulmonary Parenchyma: Limited exam. Mildly hyperinflated lung vazquez with prominent broncho vascular markings in bilateral lungs. Fibrotic bands in bilateral mid zones. No evidence of consolidation, collapse, or focal opacities. No pulmonary nodules are identified. Bilateral costophrenic angles can not be commented upon due to technical limitations. Heart and Mediastinum: Heart size appears enlarged, however can not be accurately commented upon on AP projection. No mediastinal widening or masses. No hilar or mediastinal lymphadenopathy. Bony Thorax: Suspicion of a subtle deformity at the bilateral 5th anterior ribs, however, no lucent line could be appreciated. Increased right acromioclavicular joint space of 14mm, could be due to patient's position versus separation. A small metallic prosthesis over the right humeral head. Soft Tissues: Soft tissues overlying the chest wall are unremarkable. IMPRESSION: 1. Mildly hyperinflated lung vazquez with prominent broncho vascular markings in bilateral lungs. stable 2. Bilateral costophrenic angles can not be commented upon due to technical limitations. 3. Increased right acromioclavicular joint space of 14mm, could be due to the patient's position versus sprain-advised dedicated views if clinically warranted. 4. A clinical evaluation and further views are suggested if clinically warranted. Electronically signed by Homar Meyers 03-15-2024 7:50 PM Elbow X-Ray 03/15/24 18:09 EXAM: XR elbow LT min 3V routine CLINICAL HISTORY: FALL MRN/KFK TECHNIQUE: X-ray images of the left elbow were obtained in anteroposterior (AP), lateral, and oblique projections. COMPARISON: No prior studies available for comparison. FINDINGS: Bone Structure: The bone structure of the left elbow is normal and well-aligned. A fracture of the distal end / supracondylar part of the humerus is seen with overlapping of the fracture fragments and a little lateral displacement of the proximal fracture fragment. Suspicion of a cortical lucent line in the head of the radius only evident in image # 2/4, could be projectional versus cortical break. Joint Spaces: Joint spaces are reduced with osteophytic degenerative changes. Soft Tissues: Mild soft tissue swelling is appreciated. IMPRESSION: 1. A fracture of the distal end / supracondylar part of the humerus with overlapping of the fracture fragments and a little lateral displacement of the proximal fracture fragment with mild soft tissue swelling. 2. Suspicion of a cortical lucent line in the head of the radius only evident in image # 2/4, could be projectional versus cortical break. 3. A clinical evaluation is suggested. Disclaimer: A subtle bone abnormality or fracture may not be readily apparent on X-rays, thus clinical correlation and further imaging including follow-up CT, MRI, or follow-up X-rays are advised as needed. [facility] was called at [phone] at 07:37 PM EST, 03/15/[address] Bowman was informed regarding the presence of Significant Medical Findings on the report. Electronically signed by Homar Meyers 03-15-2024 7:42 PM Knee X-Ray 03/15/24 18:09 EXAM: XR knee LT 1 or 2V routine CLINICAL HISTORY: FALL MRN/KFK TECHNIQUE: X-ray images of the left knee were obtained in anteroposterior (AP), lateral,projections. COMPARISON: No prior studies available for comparison. FINDINGS: Bone Structure: Reduced bone density. Bone structure is normal and well-aligned. A subtle cortical irregularity over the lower part of the lateral condyle of the tibia could be degenerative rather than traumatic. Degenerative tibial spiking is appreciated. Joint Spaces: Joint spaces are preserved. No significant narrowing of the medial or lateral compartments. Patella: The patella is normal in position and alignment. No evidence of patellar dislocation or subluxation. Soft Tissues: Periarticular soft tissues appear normal and unremarkable. Few coarse soft tissue calcifications in the popliteal fossa. Vascular calcifications are also appreciated. Additional Findings: No signs of joint effusion. IMPRESSION: 1. A subtle cortical irregularity over the lower part of the lateral condyle of the tibia could be degenerative rather than traumatic. A clinical correlation is suggested. 2. Reduced bone density with mild degenerative changes in the left knee joint. 3. No definite fracture is noted. Disclaimer: A subtle bone abnormality or fracture may not be readily apparent on X-rays, thus clinical correlation and further imaging including follow-up CT, MRI, or follow-up X-rays are advised as needed. Electronically signed by Homar Meyers 03-15-2024 8:04 PM Wrist X-Ray 03/15/24 18:09 EXAM: XR wrist LT min 3V routine CLINICAL HISTORY: FALL MRN/KFK TECHNIQUE: X-ray images of the left were obtained in anteroposterior (AP), lateral, and oblique projections. COMPARISON: No prior studies available for comparison. FINDINGS: Bone Structure: Reduced bone density. Bone structure is normal and aligned. No evidence of fracture or dislocation. No osseous lesions or abnormalities were identified. A small lucent line with marginal sclerosis at the base of the first metacarpal ( image series 3/4) is likely projectional/ degenerative rather than traumatic. A subtle luceny in the lunate bone could be projectional. Radio-lucency over the lateral part of the distal end of the radius is likely projectional. Joint Spaces: Joint spaces are reduced with sclerosis of articular surfaces. Soft Tissues: Soft tissues appear normal and unremarkable. No soft tissue swelling, calcifications, or foreign bodies noted. Additional Findings: No signs of lytic or sclerotic lesions. IMPRESSION: 1. Reduced bone density. 2. No definite fracture line is seen. 3. A small lucent line with marginal sclerosis at the base of the first metacarpal is likely projectional/ degenerative rather than traumatic. 4. A subtle luceny in the lunate bone could be projectional. 5. A clinical correlation with the point of tenderness is suggested. 6. 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 Disclaimer: A subtle bone abnormality or fracture may not be readily apparent on X-rays, thus clinical correlation and further imaging including follow-up CT, MRI, or follow-up X-rays are advised as needed. Electronically signed by Homar Meyers 03-15-2024 7:40 PM Abdomen/Pelvis CT 03/15/24 18:10 Exam(s): CT ABDOMEN + PELVIS With Contrast IV Amt: 90 cc opti 320 EXAM: CT Abdomen and Pelvis With Intravenous Contrast CLINICAL HISTORY: Reason for exam: Trauma. TECHNIQUE: Axial computed tomography images of the abdomen and pelvis with intravenous contrast. CTDI is 13.66 mGy and DLP is 536.89 mGy-cm. Automated exposure control was utilized for the study. A dose lowering technique was utilized adhering to the principles of ALARA. CONTRAST: Patient received 90 cc opti 320 of IV contrast COMPARISON: 03/06/24 FINDINGS: Lung bases: Pulmonary emphysema. ABDOMEN: Liver: Unremarkable. Gallbladder and bile ducts: Gallbladder is absent. Biliary ductal ectasia. Pancreas: Unremarkable. Spleen: Unremarkable. Adrenals: Unremarkable. Kidneys and ureters: Nonspecific dilatation of the renal collecting systems in light of the distended bladder. Right renal cyst and bilateral too small to characterize low-attenuation foci. Stomach and bowel: No young mural thickening. Nonobstructive bowel gas pattern. PELVIS: Appendix: No findings to suggest acute appendicitis. Bladder: Distended bladder with trabeculations. Reproductive: Enlarged endometrial cavity. ABDOMEN and PELVIS: Intraperitoneal space: Unremarkable. Bones/joints: Tarlov cysts in the sacrum. Chronic concavities in the L1 and L2 endplates. Soft tissues: Unremarkable. Vasculature: Aneurysmal infrarenal abdominal aorta, 3.3 cm. IMPRESSION: 1. No acute traumatic findings. 2. Distended bladder with trabeculations. 3. Nonspecific dilatation of the renal collecting systems in light of the distended bladder. Correlate for possible reflux. 4. Aneurysmal infrarenal abdominal aorta, 3.3 cm. 5. Enlarged endometrial cavity. Electronically signed by: Gigi Monroe M.D. 03/15/24 20:[address] 03/15/24 18:10 Exam(s): CT C SPINE EXAM: CT Cervical Spine Without Intravenous Contrast CLINICAL HISTORY: Reason for exam: Trauma. TECHNIQUE: Axial computed tomography images of the cervical spine without intravenous contrast. CTDI is 26.96 mGy and DLP is 691.25 mGy-cm. Automated exposure control was utilized for the study. A dose lowering technique was utilized adhering to the principles of ALARA. COMPARISON: No relevant prior studies available. FINDINGS: Vertebrae: No acute fracture or malalignment. Discs/spinal canal/neural foramina: No acute process. Multilevel cervical spondylosis and facet arthropathy. Soft tissues: Unremarkable. Vasculature: Aneurysmal right temporal artery, 7 mm. Lung apices: Pulmonary emphysema. IMPRESSION: No acute traumatic findings in the cervical spine. Electronically signed by: Gigi Monroe M.D. 03/15/24 20:[address] 03/15/24 18:10 Exam(s): CT CHEST With Contrast IV Amt: 90 cc opti 320 EXAM: CT Chest With Intravenous Contrast CLINICAL HISTORY: Reason for exam: Trauma. TECHNIQUE: Axial computed tomography images of the chest with intravenous contrast. CTDI is 11.22 mGy and DLP is 396.09 mGy-cm. Automated exposure control was utilized for the study. A dose lowering technique was utilized adhering to the principles of ALARA. CONTRAST: Patient received 90 cc opti 320 of IV contrast COMPARISON: 12/12/23 FINDINGS: Lungs: Pulmonary emphysema. No consolidation. No edema. Pleural space: No pneumothorax. No effusion. Heart: No cardiomegaly. No pericardial effusion. Mediastinum: No mediastinal hematoma. Bones/joints: Old rib fractures. Old sternal fracture. No acute fractures. Vasculature: Aneurysmal descending thoracic aorta, roughly 3 cm. IMPRESSION: No acute traumatic findings in the chest. Electronically signed by: Gigi Monroe M.D. 03/15/24 20:[address] 03/15/24 18:10 Exam(s): CT FACIAL Without Contrast EXAM: CT Maxillofacial Without Intravenous Contrast CLINICAL HISTORY: Reason for exam: Trauma, fall left contusion. TECHNIQUE: Axial computed tomography images of the face without intravenous contrast. CTDI is 26.96 mGy and DLP is 691.25 mGy-cm. Automated exposure control was utilized for the study. A dose lowering technique was utilized adhering to the principles of ALARA. COMPARISON: 02/07/14 FINDINGS: Bones/joints: No acute fracture. Soft tissues: Soft tissue hematoma centered in the frontal region. 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 Orbits: No acute process. Sinuses: No acute sinusitis. IMPRESSION: 1. Soft tissue hematoma centered in the frontal region. No fractures. 2. 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 Electronically signed by: Gigi Monroe M.D. 03/15/24 20:[address] 03/15/24 18:10 Exam(s): CT HEAD Without Contrast EXAM: CT Head Without Intravenous Contrast CLINICAL HISTORY: Reason for exam: trauma. TECHNIQUE: Axial computed tomography images of the head/brain without intravenous contrast. CTDI is 61.2 mGy and DLP is 961.59 mGy-cm. Automated exposure control was utilized for the study. A dose lowering technique was utilized adhering to the principles of ALARA. COMPARISON: 03/02/24 FINDINGS: Brain: No intracranial hemorrhage. No midline shift. Senescent changes with small vessel disease. Ventricles: No hydrocephalus. Bones/joints: No acute fracture. Soft tissues: Soft tissue hematoma centered in the left frontal region. 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 Sinuses: No acute sinusitis. Mastoid air cells: No mastoid effusion. Orbits: No acute process. Sella: Empty sella. IMPRESSION: 1. Soft tissue hematoma centered in the left frontal region. No intracranial hemorrhage. 2. 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 Electronically signed by: Gigi Monroe M.D. 03/15/24 20:21 PM Discharge Plan Visit Data Chief Complaint: Trauma Stated Complaint: FALL, ELBOW, FACE ED Provider: Nick Bowman Discharge Problem: Fall, Fracture of distal end of left humerus, Contusion of face, Anticoagulant long-term use, Acute pain of left knee Patient Disposition: Admitted As Inpatient Discharge Instructions Interventions: ED Discharge Assessment Last Done: 03/15/24 22:44 Discharge Problem: Fall Qualifiers: Encounter type: initial encounter Qualified Code(s): W19.XXXA - Unspecified fall, initial encounter Fracture of distal end of left humerus Qualifiers: Encounter type: initial encounter Fracture type: closed Contusion of face Qualifiers: Encounter type: initial encounter Qualified Code(s): S00.83XA - Contusion of other part of head, initial encounter
[2024-03-15] MEDS: OPTIRAY 320 100ml IV ONE (18:50)
[2024-03-15 18:58] LABS: Alanine Aminotransferase 15 U/L (7-52); Albumin Globulin Ratio 1.1 (0.9-2); Albumin Level 3.6 gm/dl (3.4-5.0); Alkaline Phosphatase 93 U/L (34-104); Anion Gap 7 (3-11); Aspartate Aminotransferase 22 U/L (13-39); BUN Creatinine Ratio 14.1 (10-20); Bilirubin,Total 0.9 mg/dl (0.2-1.0); Blood Urea Nitrogen 12 mg/dl (6-23); Calcium 9.5 mg/dl (8.6-10.3); Carbon Dioxide 39 mmol/L (21-32); Chloride 90 mmol/L (98-107); Creatine Kinase 107 U/L (26-192); Globulin 3.4 gm/dl (2.5-4.0); Glucose 110 mg/dl (70-99(Fasting)); Lipase 14 U/L (11-82); Magnesium 1.7 mg/dl (1.7-2.4); Potassium 3.6 mmol/L (3.5-5.1); Sodium 136 mmol/L (136-145)
[2024-03-15 19:08] LABS: INR 1.1 (0.9-1.1); Partial Thromboplastin Ratio 1.2; Partial Thromboplastin Time 31 Seconds (21-31); Prothrombin Time 11.5 Seconds (9.0-12.0); Troponin I High Sensitivity 192.6 pg/ml (0-14)
[2024-03-15] MEDS: fentaNYL citrate PF 100 MCG/2 ML VIAL IV STA (19:16)
--- NOTE | 2024-03-15 19:47 | XRay Report ---
EXAM: XR elbow LT min 3V routine CLINICAL HISTORY: FALL MRN/KFK TECHNIQUE: X-ray images of the left elbow were obtained in anteroposterior (AP), lateral, and oblique projections. COMPARISON: No prior studies available for comparison. FINDINGS: Bone Structure: The bone structure of the left elbow is normal and well-aligned. A fracture of the distal end / supracondylar part of the humerus is seen with overlapping of the fracture fragments and a little lateral displacement of the proximal fracture fragment. Suspicion of a cortical lucent line in the head of the radius only evident in image # 2/4, could be projectional versus cortical break. Joint Spaces: Joint spaces are reduced with osteophytic degenerative changes. Soft Tissues: Mild soft tissue swelling is appreciated. IMPRESSION: 1. A fracture of the distal end / supracondylar part of the humerus with overlapping of the fracture fragments and a little lateral displacement of the proximal fracture fragment with mild soft tissue swelling. 2. Suspicion of a cortical lucent line in the head of the radius only evident in image # 2/4, could be projectional versus cortical break. 3. A clinical evaluation is suggested. Disclaimer: A subtle bone abnormality or fracture may not be readily apparent on X-rays, thus clinical correlation and further imaging including follow-up CT, MRI, or follow-up X-rays are advised as needed. [facility] ER was called at [phone] at 07:37 PM EST, 03/15/[address] Bowman was informed regarding the presence of Significant Medical Findings on the report. Electronically signed by Homar Meyers 03-15-2024 7:42 PM
--- NOTE | 2024-03-15 19:47 | XRay Report ---
EXAM: XR wrist LT min 3V routine CLINICAL HISTORY: FALL MRN/KFK TECHNIQUE: X-ray images of the left were obtained in anteroposterior (AP), lateral, and oblique projections. COMPARISON: No prior studies available for comparison. FINDINGS: Bone Structure: Reduced bone density. Bone structure is normal and aligned. No evidence of fracture or dislocation. No osseous lesions or abnormalities were identified. A small lucent line with marginal sclerosis at the base of the first metacarpal ( image series 3/4) is likely projectional/ degenerative rather than traumatic. A subtle luceny in the lunate bone could be projectional. Radio-lucency over the lateral part of the distal end of the radius is likely projectional. Joint Spaces: Joint spaces are reduced with sclerosis of articular surfaces. Soft Tissues: Soft tissues appear normal and unremarkable. No soft tissue swelling, calcifications, or foreign bodies noted. Additional Findings: No signs of lytic or sclerotic lesions. IMPRESSION: 1. Reduced bone density. 2. No definite fracture line is seen. 3. A small lucent line with marginal sclerosis at the base of the first metacarpal is likely projectional/ degenerative rather than traumatic. 4. A subtle luceny in the lunate bone could be projectional. 5. A clinical correlation with the point of tenderness is suggested. 6. 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 Disclaimer: A subtle bone abnormality or fracture may not be readily apparent on X-rays, thus clinical correlation and further imaging including follow-up CT, MRI, or follow-up X-rays are advised as needed. Electronically signed by Homar Meyers 03-15-2024 7:40 PM
--- NOTE | 2024-03-15 19:51 | XRay Report ---
EXAM: XR chest 1V portable CLINICAL HISTORY: FALL MRN/KFK TECHNIQUE: An X-ray image of the chest is obtained in AP projection. COMPARISON: 03/02/2024 CR. FINDINGS: Pulmonary Parenchyma: Limited exam. Mildly hyperinflated lung vazquez with prominent broncho vascular markings in bilateral lungs. Fibrotic bands in bilateral mid zones. No evidence of consolidation, collapse, or focal opacities. No pulmonary nodules are identified. Bilateral costophrenic angles can not be commented upon due to technical limitations. Heart and Mediastinum: Heart size appears enlarged, however can not be accurately commented upon on AP projection. No mediastinal widening or masses. No hilar or mediastinal lymphadenopathy. Bony Thorax: Suspicion of a subtle deformity at the bilateral 5th anterior ribs, however, no lucent line could be appreciated. Increased right acromioclavicular joint space of 14mm, could be due to patient's position versus separation. A small metallic prosthesis over the right humeral head. Soft Tissues: Soft tissues overlying the chest wall are unremarkable. IMPRESSION: 1. Mildly hyperinflated lung vazquez with prominent broncho vascular markings in bilateral lungs. stable 2. Bilateral costophrenic angles can not be commented upon due to technical limitations. 3. Increased right acromioclavicular joint space of 14mm, could be due to the patient's position versus sprain-advised dedicated views if clinically warranted. 4. A clinical evaluation and further views are suggested if clinically warranted. Electronically signed by Homar Meyers 03-15-2024 7:50 PM
--- NOTE | 2024-03-15 20:06 | XRay Report ---
EXAM: XR knee LT 1 or 2V routine CLINICAL HISTORY: FALL MRN/KFK TECHNIQUE: X-ray images of the left knee were obtained in anteroposterior (AP), lateral,projections. COMPARISON: No prior studies available for comparison. FINDINGS: Bone Structure: Reduced bone density. Bone structure is normal and well-aligned. A subtle cortical irregularity over the lower part of the lateral condyle of the tibia could be degenerative rather than traumatic. Degenerative tibial spiking is appreciated. Joint Spaces: Joint spaces are preserved. No significant narrowing of the medial or lateral compartments. Patella: The patella is normal in position and alignment. No evidence of patellar dislocation or subluxation. Soft Tissues: Periarticular soft tissues appear normal and unremarkable. Few coarse soft tissue calcifications in the popliteal fossa. Vascular calcifications are also appreciated. Additional Findings: No signs of joint effusion. IMPRESSION: 1. A subtle cortical irregularity over the lower part of the lateral condyle of the tibia could be degenerative rather than traumatic. A clinical correlation is suggested. 2. Reduced bone density with mild degenerative changes in the left knee joint. 3. No definite fracture is noted. Disclaimer: A subtle bone abnormality or fracture may not be readily apparent on X-rays, thus clinical correlation and further imaging including follow-up CT, MRI, or follow-up X-rays are advised as needed. Electronically signed by Homar Meyers 03-15-2024 8:04 PM
--- NOTE | 2024-03-15 20:22 | CT Scan Report ---
Exam(s): CT HEAD Without Contrast EXAM: CT Head Without Intravenous Contrast CLINICAL HISTORY: Reason for exam: trauma. TECHNIQUE: Axial computed tomography images of the head/brain without intravenous contrast. CTDI is 61.2 mGy and DLP is 961.59 mGy-cm. Automated exposure control was utilized for the study. A dose lowering technique was utilized adhering to the principles of ALARA. COMPARISON: 03/02/24 FINDINGS: Brain: No intracranial hemorrhage. No midline shift. Senescent changes with small vessel disease. Ventricles: No hydrocephalus. Bones/joints: No acute fracture. Soft tissues: Soft tissue hematoma centered in the left frontal region. 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 Sinuses: No acute sinusitis. Mastoid air cells: No mastoid effusion. Orbits: No acute process. Sella: Empty sella. IMPRESSION: 1. Soft tissue hematoma centered in the left frontal region. No intracranial hemorrhage. 2. 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 Electronically signed by: Gigi Monroe M.D. 03/15/24 20:21 PM
--- NOTE | 2024-03-15 20:25 | CT Scan Report ---
Exam(s): CT C SPINE EXAM: CT Cervical Spine Without Intravenous Contrast CLINICAL HISTORY: Reason for exam: Trauma. TECHNIQUE: Axial computed tomography images of the cervical spine without intravenous contrast. CTDI is 26.96 mGy and DLP is 691.25 mGy-cm. Automated exposure control was utilized for the study. A dose lowering technique was utilized adhering to the principles of ALARA. COMPARISON: No relevant prior studies available. FINDINGS: Vertebrae: No acute fracture or malalignment. Discs/spinal canal/neural foramina: No acute process. Multilevel cervical spondylosis and facet arthropathy. Soft tissues: Unremarkable. Vasculature: Aneurysmal right temporal artery, 7 mm. Lung apices: Pulmonary emphysema. IMPRESSION: No acute traumatic findings in the cervical spine. Electronically signed by: Gigi Monroe M.D. 03/15/24 20:24 PM
--- NOTE | 2024-03-15 20:27 | CT Scan Report ---
Exam(s): CT FACIAL Without Contrast EXAM: CT Maxillofacial Without Intravenous Contrast CLINICAL HISTORY: Reason for exam: Trauma, fall left contusion. TECHNIQUE: Axial computed tomography images of the face without intravenous contrast. CTDI is 26.96 mGy and DLP is 691.25 mGy-cm. Automated exposure control was utilized for the study. A dose lowering technique was utilized adhering to the principles of ALARA. COMPARISON: 02/07/14 FINDINGS: Bones/joints: No acute fracture. Soft tissues: Soft tissue hematoma centered in the frontal region. 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 Orbits: No acute process. Sinuses: No acute sinusitis. IMPRESSION: 1. Soft tissue hematoma centered in the frontal region. No fractures. 2. 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 Electronically signed by: Gigi Monroe M.D. 03/15/24 20:27 PM
--- NOTE | 2024-03-15 20:33 | CT Scan Report ---
Exam(s): CT CHEST With Contrast IV Amt: 90 cc opti 320 EXAM: CT Chest With Intravenous Contrast CLINICAL HISTORY: Reason for exam: Trauma. TECHNIQUE: Axial computed tomography images of the chest with intravenous contrast. CTDI is 11.22 mGy and DLP is 396.09 mGy-cm. Automated exposure control was utilized for the study. A dose lowering technique was utilized adhering to the principles of ALARA. CONTRAST: Patient received 90 cc opti 320 of IV contrast COMPARISON: 12/12/23 FINDINGS: Lungs: Pulmonary emphysema. No consolidation. No edema. Pleural space: No pneumothorax. No effusion. Heart: No cardiomegaly. No pericardial effusion. Mediastinum: No mediastinal hematoma. Bones/joints: Old rib fractures. Old sternal fracture. No acute fractures. Vasculature: Aneurysmal descending thoracic aorta, roughly 3 cm. IMPRESSION: No acute traumatic findings in the chest. Electronically signed by: Gigi Monroe M.D. 03/15/24 20:32 PM
--- NOTE | 2024-03-15 20:40 | CT Scan Report ---
Exam(s): CT ABDOMEN + PELVIS With Contrast IV Amt: 90 cc opti 320 EXAM: CT Abdomen and Pelvis With Intravenous Contrast CLINICAL HISTORY: Reason for exam: Trauma. TECHNIQUE: Axial computed tomography images of the abdomen and pelvis with intravenous contrast. CTDI is 13.66 mGy and DLP is 536.89 mGy-cm. Automated exposure control was utilized for the study. A dose lowering technique was utilized adhering to the principles of ALARA. CONTRAST: Patient received 90 cc opti 320 of IV contrast COMPARISON: 03/06/24 FINDINGS: Lung bases: Pulmonary emphysema. ABDOMEN: Liver: Unremarkable. Gallbladder and bile ducts: Gallbladder is absent. Biliary ductal ectasia. Pancreas: Unremarkable. Spleen: Unremarkable. Adrenals: Unremarkable. Kidneys and ureters: Nonspecific dilatation of the renal collecting systems in light of the distended bladder. Right renal cyst and bilateral too small to characterize low-attenuation foci. Stomach and bowel: No young mural thickening. Nonobstructive bowel gas pattern. PELVIS: Appendix: No findings to suggest acute appendicitis. Bladder: Distended bladder with trabeculations. Reproductive: Enlarged endometrial cavity. ABDOMEN and PELVIS: Intraperitoneal space: Unremarkable. Bones/joints: Tarlov cysts in the sacrum. Chronic concavities in the L1 and L2 endplates. Soft tissues: Unremarkable. Vasculature: Aneurysmal infrarenal abdominal aorta, 3.3 cm. IMPRESSION: 1. No acute traumatic findings. 2. Distended bladder with trabeculations. 3. Nonspecific dilatation of the renal collecting systems in light of the distended bladder. Correlate for possible reflux. 4. Aneurysmal infrarenal abdominal aorta, 3.3 cm. 5. Enlarged endometrial cavity. Electronically signed by: Gigi Monroe M.D. 03/15/24 20:39 PM
[2024-03-15 20:51] LABS: Troponin I High Sensitivity 178.7 pg/ml (0-14)
--- NOTE | 2024-03-15 22:23 | History & Physical Report ---
Date of Service March 15, 2024 Assessment & Plan (1) Asymptomatic hypertensive urgency: Plan: Secondary to traumatic left humeral fracture secondary to unwitnessed syncopal event rule out orthostasis Head trauma secondary to fall Patient with facial ecchymosis/hematoma History CAD on Plavix, history A-fib on Eliquis chronic respiratory failure secondary to COPD home O2, at baseline Sepsis secondary to complicated UTI hyperlipidemia, on statin Rx chronic anemia, hemoglobin better than baseline mood disorder, stable ongoing tobacco abuse Medical telemetry IV Lopressor 1 dose now Check orthostatic vitals Orthopedics consult Re: Left humeral fracture (ED provider already in touch with [place] [facility] specialist on-call.) Hold Plavix and Eliquis for now in anticipation of procedure. Safety on discharging patient home on Eliquis will need to be reviewed prior to discharge due to fall predisposition. Cultures, ceftriaxone Nicotine patch as needed DVT prophylaxis. SCDs while Eliquis on hold Full code Patient request for daughter to be given updates regarding care. Ms. Cindy Garcia, contact #[phone]. Text document was generated using [employer] voice recognition software. It may contain grammatical or spelling errors. Kindly contact undersigned for clarification of any documentation item in question. History of Present Illness Chief Complaint: Worsening left upper arm pain Primary Care Provider: Ronald Cortes MD History obtained from patient and records. Medical history significant for chronic respiratory failure secondary to COPD home O2, CAD, A-fib on Eliquis, hypertension, hyperlipidemia, chronic anemia (baseline hemoglobin 8-9), mood disorder, ongoing tobacco abuse. Recurrent admissions since November 2023. Last confinement March 03 to 2023 for severe sepsis secondary to suspected UTI. Patient discharged home. Patient got up from bed yesterday to get some grapes from the kitchen 4 days ago. [place] lightheaded because she got up too quick. Unwitnessed syncopal event resulting in head trauma. Patient landed on the left side. Patient woke up with daughter screaming at her. Sustained black eye on the left. Vision okay as per patient. Achy left arm and shoulder pain. Denies chest pain, unusual SOB. No witnessed seizures. Patient refused to to get checked out at the ER. Patient consulted ER for worsening left upper arm pain. Weakness without abdominal pain/dysuria symptoms. 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 Allergies Allergy/AdvReac Type Severity Reaction Status Date / Time bee venom protein (honey bee) Allergy Severe SWELLING Verified 01/30/24 16:12 SEVERE doxycycline Allergy Intermediate Vomiting Verified 01/30/24 16:12 Home Medications Medication Instructions Recorded Confirmed Type multivitamin 1 tab PO DAILY #0 tabs 02/07/14 03/15/24 History calcium 600 mg (as 1 tab PO QAM ##0 04/22/17 03/15/24 History carbonate)-vitamin D3 10 mcg (400 unit) tablet (Calcium 600 + D(3)) omega 5-sfg-jpb-fish oil 1,000 mg 1 cap PO DAILY #0 caps 04/22/17 03/15/24 History (120 mg-180 mg) capsule (Fish Oil) magnesium oxide 400 mg PO BID #0 tabs 06/01/17 03/15/24 History apixaban 5 mg tablet (Eliquis) 5 mg PO BID 12/06/23 03/15/24 History atorvastatin 40 mg tablet 40 mg PO QAM 12/06/23 03/15/24 History citalopram 40 mg tablet 40 mg PO QAM 12/06/23 03/15/24 History clopidogrel 75 mg tablet 75 mg PO QAM 12/06/23 03/15/24 History fluticasone propionate 115 2 puff inhalation AMHS 12/06/23 03/15/24 History mcg-salmeterol 21 mcg/actuation HFA inhaler gabapentin 300 mg capsule 300 mg PO BID 12/06/23 03/15/24 History levothyroxine 25 mcg tablet 25 mcg PO DAILYBB 12/06/23 03/15/24 History oxybutynin chloride 5 mg 5 mg PO QAM 12/06/23 03/15/24 History tablet,extended release 24 hr potassium chloride 10 mEq 10 meq PO AMHS 12/06/23 03/15/24 History tablet,extended release(part/cryst) (Klor-Con M) trazodone 50 mg tablet 100 mg PO HS 12/06/23 03/15/24 History nitroglycerin 0.4 mg sublingual 0.4 mg sublingual Q5M PRN chest 12/09/23 03/15/24 Rx tablet (Nitrostat) pain #30 tabs umeclidinium 62.5 mcg/actuation 1 inh inhalation DAILY #30 ea 12/14/23 03/15/24 Rx blister powder for inhalation (Incruse Ellipta) ipratropium 0.5 mg-albuterol 3 mg 3 ml NEB QIDR PRN shortness of 12/28/23 03/15/24 Rx (2.5 mg base)/3 mL nebulization breath #90 mL soln albuterol sulfate 90 mcg/actuation 2 puff inhalation Q4 PRN WHEEZING 01/30/24 03/15/24 History aerosol inhaler OR COUGH pantoprazole 40 mg tablet,delayed 40 mg PO QAM 01/30/24 03/15/24 History release (Protonix) furosemide 40 mg tablet 20 mg (1/2 x 40 mg) PO QAM #0 tabs 02/02/24 03/15/24 Rx tiotropium bromide 18 mcg capsule 1 cap inhalation QAM 03/02/24 03/15/24 History with inhalation device carvedilol 3.125 mg tablet 3.125 mg PO BID 30 days #60 tabs 03/08/24 03/15/24 Rx losartan 25 mg tablet 25 mg PO QAM 30 days #30 tabs 03/08/24 03/15/24 Rx alendronate 70 mg tablet 70 mg PO WK 03/15/24 03/15/24 History Past Med/Surg History Problem List (Updated 03/16/24 @ 09:07 by Gordy Enciso MD) Asymptomatic hypertensive urgency Acute pain of left knee (Acute) Anticoagulant long-term use (Acute) Contusion of face (Acute) Fracture of distal end of left humerus (Acute) Fall (Acute) Acute metabolic encephalopathy Myocardial infarction due to demand ischemia Suspected urinary tract infection Severe sepsis with acute organ dysfunction Sepsis Epigastric abdominal tenderness Intravascular volume depletion Non-ST elevation [place] (NSTEMI) (Acute) Acute dyspnea (Acute) Generalized weakness (Acute) Acute on chronic anemia E. coli UTI Acute dehydration (Acute) COPD (chronic obstructive pulmonary disease) (Acute) GUTIERREZ (acute kidney injury) (Acute) COPD (chronic obstructive pulmonary disease) (Acute) Acute and chronic postprocedural respiratory failure (Acute) COPD with exacerbation Elevated troponin level (Acute) Acute on chronic respiratory failure with hypoxia and hypercapnia (Acute) COPD (chronic obstructive pulmonary disease) (Acute) Dyslipidemia, goal LDL below 70 PAF (paroxysmal atrial fibrillation) Uncontrolled hypertension ASCVD (arteriosclerotic cardiovascular disease) Chest pain at rest Thickened endometrium Elevated brain natriuretic peptide (BNP) level (Acute) Nausea & vomiting (Acute) Chest pain (Acute) Asthma exacerbation (Acute) Gastroenteritis (Acute) Fall in home (Acute) CHI (closed head injury) (Acute) Scalp laceration (Acute) Facial laceration (Acute) Heart disease HTN (hypertension) Kidney disease Bronchitis Fall in home (Acute) Hyponatremia (Acute) Hypokalemia (Acute) Abdominal pain Diarrhea Vomiting Medical History Absent pedal pulses Macular degeneration Asthma Tobacco use disorder Coronary atherosclerosis of [place] coronary vessel Benign hypertension Atrial fibrillation Diabetes Surgical History H/O heart surgery History of cholecystectomy Hx of tubal ligation Social History Smoking Status: Current every day smoker Tobacco Type: Cigarettes Cigarettes Per Day: 5; Second Hand Exposure: No; Do You Dip or Chew Tobacco: No; Hx Alcohol Use: No Hx Substance Use: No Preferred Language: Turkish Communication Ability: Effective Sales Representative Wire Rope Required: No Beliefs That Will Affect Care: None Current Living Situation: Family Current Living Situation Comment: with daughter Other Information That Helps Us Care for You: No Feels Safe at Home: Yes Safety Concerns: Feels Safe At This Time Assistive Devices: Oxygen - Continuous Assistive Devices Comment: Cruises furniture when home, uses walker/wheelchair out in public Review of Systems Review of Systems: As per HPI, all other systems reviewed and negative Physical Exam Physical Exam: GENERAL: Slightly uncomfortable, chronically ill, episodic tachypnea SKIN: Pallor, warm HEENT: Ecchymosis on the left side of face, pale palpebral conjunctivae, no ptosis, dry buccal mucosa, nasal cannula in place NECK : Supple, no tenderness CHEST : Decreased breath sounds, no tenderness HEART : RRR, no obvious murmurs ABDOMEN: Some distention, nontender EXTREMITIES : Left shoulder tenderness, no LE swelling/tenderness, no other conspicuous deformities noted NEUROLOGIC : Coherent, no facial asymmetry, slightly hard of hearing, gait and stance not assessed Results & Data Results & Data Vital Signs (Past 12 Hours) Vital Signs Temp Pulse Pulse Resp BP BP Pulse Ox 03/15/24 21:00 67 18 140/50 L 03/15/24 20:15 70 16 110/74 03/15/24 20:00 03/15/24 19:03 70 17 158/81 H 03/15/24 18:11 64 03/15/24 18:09 99 03/15/24 18:06 36.5 C 65 19 103/60 93 03/15/24 18:06 36.5 C 65 18 103/60 93 03/15/24 17:58 36.3 C L 127 H 20 95/62 L 97 O2 Del Method O2 Flow Rate 03/15/24 21:00 Nasal Cannula 3 03/15/24 20:15 03/15/24 20:00 Nasal Cannula 2 03/15/24 19:03 03/15/24 18:11 03/15/24 18:09 Nasal Cannula 3 03/15/24 18:06 Nasal Cannula 3 03/15/24 18:06 Room Air 03/15/24 17:58 Room Air Laboratory Results Laboratory Results WBC 16.15 K/ul (4.8-10.8) H 03/15/24 18:20 RBC 3.69 M/uL (4.20-5.40) L 03/15/24 18:20 Hgb 11.4 g/dl (12.0-16.0) L 03/15/24 18:20 POC Hgb 12.9 g/dl (12.0-16.0) 03/15/24 18:29 Hct 35.3 % (37.0-47.0) L 03/15/24 18:20 POC Hct 38 % (37-47) 03/15/24 18:29 MCV 95.7 fL (80.0-100.0) 03/15/24 18:20 MCH 30.9 pg (25.0-34.0) 03/15/24 18:20 MCHC 32.3 g/dL (32.0-36.0) 03/15/24 18:20 RDW Std Deviation 49.3 fL (36.4-46.3) H 03/15/24 18:20 RDW Coeff of Chet 14.0 % (11.5-14.5) 03/15/24 18:20 Plt Count 476 K/uL (130-400) H 03/15/24 18:20 MPV 8.7 fL (9.4-12.4) L 03/15/24 18:20 Immature Gran % (Auto) 0.9 % 03/15/24 18:20 Neut % (Auto) 85.6 % 03/15/24 18:20 Lymph % (Auto) 8.6 % 03/15/24 18:20 [place] % (Auto) 4.1 % 03/15/24 18:20 Eos % (Auto) 0.6 % 03/15/24 18:20 Baso % (Auto) 0.2 % 03/15/24 18:20 Neut # (Auto) 13.82 K/uL (1.40-6.50) H 03/15/24 18:20 Lymph # (Auto) 1.39 K/uL (1.20-3.40) 03/15/24 18:20 [place] # (Auto) 0.66 K/uL (0.11-0.59) H 03/15/24 18:20 Eos # (Auto) 0.09 K/uL (0.00-0.50) 03/15/24 18:20 Baso # (Auto) 0.04 K/uL (0.00-0.20) 03/15/24 18:20 Immature Gran # (Auto) 0.15 K/uL (0.01-0.20) 03/15/24 18:20 PT 11.5 Seconds (9.0-12.0) 03/15/24 18:20 INR 1.1 (0.9-1.1) 03/15/24 18:20 APTT 31 Seconds (21-31) 03/15/24 18:20 PTT Ratio 1.2 03/15/24 18:20 POC Sodium 134 mmol/L (135-144) L 03/15/24 18:29 Sodium 136 mmol/L (136-145) 03/15/24 18:20 POC Potassium 3.5 mmol/L (3.3-5.0) 03/15/24 18:29 Potassium 3.6 mmol/L (3.5-5.1) 03/15/24 18:20 POC Chloride 89 mmol/L (101-112) L 03/15/24 18:29 Chloride 90 mmol/L (98-107) L 03/15/24 18:20 Carbon Dioxide 39 mmol/L (21-32) H 03/15/24 18:20 POC Total CO2 36 mmol/L (24-31) H 03/15/24 18:29 Anion Gap 7 (3-11) 03/15/24 18:20 POC Anion Gap 13.0 mmol/L (16-25) L 03/15/24 18:29 POC BUN 11 mg/dl (7-18) 03/15/24 18:29 BUN 12 mg/dl (6-23) 03/15/24 18:20 Creatinine 0.85 mg/dl (0.6-1.2) 03/15/24 18:20 POC Creatinine 0.9 mg/dl (0.6-1.3) 03/15/24 18:29 Est Cr Clr Drug Dosing Not Reportable 03/15/24 18:20 eGFR 71.85 03/15/24 18:20 BUN/Creatinine Ratio 14.1 (10-20) 03/15/24 18:20 Glucose 110 mg/dl (70-99(Fasting)) H 03/15/24 18:20 POC Glucose (other) 106 mg/dl (70-99) H 03/15/24 18:29 Calcium 9.5 mg/dl (8.6-10.3) 03/15/24 18:20 POC Ioniz Calcium Tabitha 1.16 mmol/l (1.12-1.32) 03/15/24 18:29 Magnesium 1.7 mg/dl (1.7-2.4) 03/15/24 18:20 Total Bilirubin 0.9 mg/dl (0.2-1.0) 03/15/24 18:20 AST 22 U/L (13-39) 03/15/24 18:20 ALT 15 U/L (7-52) 03/15/24 18:20 Alkaline Phosphatase 93 U/L (34-104) 03/15/24 18:20 Total Creatine Kinase 107 U/L (26-192) 03/15/24 18:20 Troponin I High Sens 178.7 pg/ml (0-14) H* 03/15/24 20:15 Total Protein 7.0 gm/dl (6.0-8.3) 03/15/24 18:20 Albumin 3.6 gm/dl (3.4-5.0) 03/15/24 18:20 Globulin 3.4 gm/dl (2.5-4.0) 03/15/24 18:20 Albumin/Globulin Ratio 1.1 (0.9-2) 03/15/24 18:20 Lipase 14 U/L (11-82) 03/15/24 18:20 Blood Type O Positive 03/15/24 18:25 Antibody Screen NEGATIVE 03/15/24 18:25 Impressions Chest X-Ray 03/15/24 18:09 EXAM: XR chest 1V portable CLINICAL HISTORY: FALL MRN/KFK TECHNIQUE: An X-ray image of the chest is obtained in AP projection. COMPARISON: 03/02/2024 CR. FINDINGS: Pulmonary Parenchyma: Limited exam. Mildly hyperinflated lung vazquez with prominent broncho vascular markings in bilateral lungs. Fibrotic bands in bilateral mid zones. No evidence of consolidation, collapse, or focal opacities. No pulmonary nodules are identified. Bilateral costophrenic angles can not be commented upon due to technical limitations. Heart and Mediastinum: Heart size appears enlarged, however can not be accurately commented upon on AP projection. No mediastinal widening or masses. No hilar or mediastinal lymphadenopathy. Bony Thorax: Suspicion of a subtle deformity at the bilateral 5th anterior ribs, however, no lucent line could be appreciated. Increased right acromioclavicular joint space of 14mm, could be due to patient's position versus separation. A small metallic prosthesis over the right humeral head. Soft Tissues: Soft tissues overlying the chest wall are unremarkable. IMPRESSION: 1. Mildly hyperinflated lung vazquez with prominent broncho vascular markings in bilateral lungs. stable 2. Bilateral costophrenic angles can not be commented upon due to technical limitations. 3. Increased right acromioclavicular joint space of 14mm, could be due to the patient's position versus sprain-advised dedicated views if clinically warranted. 4. A clinical evaluation and further views are suggested if clinically warranted. Electronically signed by Homar Meyers 03-15-2024 7:50 PM Elbow X-Ray 03/15/24 18:09 EXAM: XR elbow LT min 3V routine CLINICAL HISTORY: FALL MRN/KFK TECHNIQUE: X-ray images of the left elbow were obtained in anteroposterior (AP), lateral, and oblique projections. COMPARISON: No prior studies available for comparison. FINDINGS: Bone Structure: The bone structure of the left elbow is normal and well-aligned. A fracture of the distal end / supracondylar part of the humerus is seen with overlapping of the fracture fragments and a little lateral displacement of the proximal fracture fragment. Suspicion of a cortical lucent line in the head of the radius only evident in image # 2/4, could be projectional versus cortical break. Joint Spaces: Joint spaces are reduced with osteophytic degenerative changes. Soft Tissues: Mild soft tissue swelling is appreciated. IMPRESSION: 1. A fracture of the distal end / supracondylar part of the humerus with overlapping of the fracture fragments and a little lateral displacement of the proximal fracture fragment with mild soft tissue swelling. 2. Suspicion of a cortical lucent line in the head of the radius only evident in image # 2/4, could be projectional versus cortical break. 3. A clinical evaluation is suggested. Disclaimer: A subtle bone abnormality or fracture may not be readily apparent on X-rays, thus clinical correlation and further imaging including follow-up CT, MRI, or follow-up X-rays are advised as needed. [facility] ER was called at [phone] at 07:37 PM EST, 03/15/[address] Bowman was informed regarding the presence of Significant Medical Findings on the report. Electronically signed by Homar Meyers 03-15-2024 7:42 PM Knee X-Ray 03/15/24 18:09 EXAM: XR knee LT 1 or 2V routine CLINICAL HISTORY: FALL MRN/KFK TECHNIQUE: X-ray images of the left knee were obtained in anteroposterior (AP), lateral,projections. COMPARISON: No prior studies available for comparison. FINDINGS: Bone Structure: Reduced bone density. Bone structure is normal and well-aligned. A subtle cortical irregularity over the lower part of the lateral condyle of the tibia could be degenerative rather than traumatic. Degenerative tibial spiking is appreciated. Joint Spaces: Joint spaces are preserved. No significant narrowing of the medial or lateral compartments. Patella: The patella is normal in position and alignment. No evidence of patellar dislocation or subluxation. Soft Tissues: Periarticular soft tissues appear normal and unremarkable. Few coarse soft tissue calcifications in the popliteal fossa. Vascular calcifications are also appreciated. Additional Findings: No signs of joint effusion. IMPRESSION: 1. A subtle cortical irregularity over the lower part of the lateral condyle of the tibia could be degenerative rather than traumatic. A clinical correlation is suggested. 2. Reduced bone density with mild degenerative changes in the left knee joint. 3. No definite fracture is noted. Disclaimer: A subtle bone abnormality or fracture may not be readily apparent on X-rays, thus clinical correlation and further imaging including follow-up CT, MRI, or follow-up X-rays are advised as needed. Electronically signed by Homar Meyers 03-15-2024 8:04 PM Wrist X-Ray 03/15/24 18:09 EXAM: XR wrist LT min 3V routine CLINICAL HISTORY: FALL MRN/KFK TECHNIQUE: X-ray images of the left were obtained in anteroposterior (AP), lateral, and oblique projections. COMPARISON: No prior studies available for comparison. FINDINGS: Bone Structure: Reduced bone density. Bone structure is normal and aligned. No evidence of fracture or dislocation. No osseous lesions or abnormalities were identified. A small lucent line with marginal sclerosis at the base of the first metacarpal ( image series 3/4) is likely projectional/ degenerative rather than traumatic. A subtle luceny in the lunate bone could be projectional. Radio-lucency over the lateral part of the distal end of the radius is likely projectional. Joint Spaces: Joint spaces are reduced with sclerosis of articular surfaces. Soft Tissues: Soft tissues appear normal and unremarkable. No soft tissue swelling, calcifications, or foreign bodies noted. Additional Findings: No signs of lytic or sclerotic lesions. IMPRESSION: 1. Reduced bone density. 2. No definite fracture line is seen. 3. A small lucent line with marginal sclerosis at the base of the first metacarpal is likely projectional/ degenerative rather than traumatic. 4. A subtle luceny in the lunate bone could be projectional. 5. A clinical correlation with the point of tenderness is suggested. 6. 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 Disclaimer: A subtle bone abnormality or fracture may not be readily apparent on X-rays, thus clinical correlation and further imaging including follow-up CT, MRI, or follow-up X-rays are advised as needed. Electronically signed by Homar Meyers 03-15-2024 7:40 PM Abdomen/Pelvis CT 03/15/24 18:10 Exam(s): CT ABDOMEN + PELVIS With Contrast IV Amt: 90 cc opti 320 EXAM: CT Abdomen and Pelvis With Intravenous Contrast CLINICAL HISTORY: Reason for exam: Trauma. TECHNIQUE: Axial computed tomography images of the abdomen and pelvis with intravenous contrast. CTDI is 13.66 mGy and DLP is 536.89 mGy-cm. Automated exposure control was utilized for the study. A dose lowering technique was utilized adhering to the principles of ALARA. CONTRAST: Patient received 90 cc opti 320 of IV contrast COMPARISON: 03/06/24 FINDINGS: Lung bases: Pulmonary emphysema. ABDOMEN: Liver: Unremarkable. Gallbladder and bile ducts: Gallbladder is absent. Biliary ductal ectasia. Pancreas: Unremarkable. Spleen: Unremarkable. Adrenals: Unremarkable. Kidneys and ureters: Nonspecific dilatation of the renal collecting systems in light of the distended bladder. Right renal cyst and bilateral too small to characterize low-attenuation foci. Stomach and bowel: No young mural thickening. Nonobstructive bowel gas pattern. PELVIS: Appendix: No findings to suggest acute appendicitis. Bladder: Distended bladder with trabeculations. Reproductive: Enlarged endometrial cavity. ABDOMEN and PELVIS: Intraperitoneal space: Unremarkable. Bones/joints: Tarlov cysts in the sacrum. Chronic concavities in the L1 and L2 endplates. Soft tissues: Unremarkable. Vasculature: Aneurysmal infrarenal abdominal aorta, 3.3 cm. IMPRESSION: 1. No acute traumatic findings. 2. Distended bladder with trabeculations. 3. Nonspecific dilatation of the renal collecting systems in light of the distended bladder. Correlate for possible reflux. 4. Aneurysmal infrarenal abdominal aorta, 3.3 cm. 5. Enlarged endometrial cavity. Electronically signed by: Gigi Monroe M.D. 03/15/24 20:[address] 03/15/24 18:10 Exam(s): CT C SPINE EXAM: CT Cervical Spine Without Intravenous Contrast CLINICAL HISTORY: Reason for exam: Trauma. TECHNIQUE: Axial computed tomography images of the cervical spine without intravenous contrast. CTDI is 26.96 mGy and DLP is 691.25 mGy-cm. Automated exposure control was utilized for the study. A dose lowering technique was utilized adhering to the principles of ALARA. COMPARISON: No relevant prior studies available. FINDINGS: Vertebrae: No acute fracture or malalignment. Discs/spinal canal/neural foramina: No acute process. Multilevel cervical spondylosis and facet arthropathy. Soft tissues: Unremarkable. Vasculature: Aneurysmal right temporal artery, 7 mm. Lung apices: Pulmonary emphysema. IMPRESSION: No acute traumatic findings in the cervical spine. Electronically signed by: Gigi Monroe M.D. 03/15/24 20:[address] 03/15/24 18:10 Exam(s): CT CHEST With Contrast IV Amt: 90 cc opti 320 EXAM: CT Chest With Intravenous Contrast CLINICAL HISTORY: Reason for exam: Trauma. TECHNIQUE: Axial computed tomography images of the chest with intravenous contrast. CTDI is 11.22 mGy and DLP is 396.09 mGy-cm. Automated exposure control was utilized for the study. A dose lowering technique was utilized adhering to the principles of ALARA. CONTRAST: Patient received 90 cc opti 320 of IV contrast COMPARISON: 12/12/23 FINDINGS: Lungs: Pulmonary emphysema. No consolidation. No edema. Pleural space: No pneumothorax. No effusion. Heart: No cardiomegaly. No pericardial effusion. Mediastinum: No mediastinal hematoma. Bones/joints: Old rib fractures. Old sternal fracture. No acute fractures. Vasculature: Aneurysmal descending thoracic aorta, roughly 3 cm. IMPRESSION: No acute traumatic findings in the chest. Electronically signed by: Gigi Monroe M.D. 03/15/24 20:[address] 03/15/24 18:10 Exam(s): CT FACIAL Without Contrast EXAM: CT Maxillofacial Without Intravenous Contrast CLINICAL HISTORY: Reason for exam: Trauma, fall left contusion. TECHNIQUE: Axial computed tomography images of the face without intravenous contrast. CTDI is 26.96 mGy and DLP is 691.25 mGy-cm. Automated exposure control was utilized for the study. A dose lowering technique was utilized adhering to the principles of ALARA. COMPARISON: 02/07/14 FINDINGS: Bones/joints: No acute fracture. Soft tissues: Soft tissue hematoma centered in the frontal region. 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 Orbits: No acute process. Sinuses: No acute sinusitis. IMPRESSION: 1. Soft tissue hematoma centered in the frontal region. No fractures. 2. 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 Electronically signed by: Gigi Monroe M.D. 03/15/24 20:[address] 03/15/24 18:10 Exam(s): CT HEAD Without Contrast EXAM: CT Head Without Intravenous Contrast CLINICAL HISTORY: Reason for exam: trauma. TECHNIQUE: Axial computed tomography images of the head/brain without intravenous contrast. CTDI is 61.2 mGy and DLP is 961.59 mGy-cm. Automated exposure control was utilized for the study. A dose lowering technique was utilized adhering to the principles of ALARA. COMPARISON: 03/02/24 FINDINGS: Brain: No intracranial hemorrhage. No midline shift. Senescent changes with small vessel disease. Ventricles: No hydrocephalus. Bones/joints: No acute fracture. Soft tissues: Soft tissue hematoma centered in the left frontal region. 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 Sinuses: No acute sinusitis. Mastoid air cells: No mastoid effusion. Orbits: No acute process. Sella: Empty sella. IMPRESSION: 1. Soft tissue hematoma centered in the left frontal region. No intracranial hemorrhage. 2. 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 Electronically signed by: Gigi Monroe M.D. 03/15/24 20:21 PM Diagnostic Findings EKG as per my interpretation :Rate 65, NSR, normal axis, T wave inversion inferior and anterolateral leads
[2024-03-15] MEDS ORDERED: PROMETHAZINE 6.25 MG/50.25 ML BAG IV PRN (22:31)
[2024-03-15 22:58] LABS: Appearance Urine Cloudy (Clear); Bacteria Urine Automated None Seen (None Seen); Bilirubin Urine Negative (Negative); Blood Urine Negative (Negative); Color Urine Yellow; Glucose Urine UA Negative (Negative); Ketones Urine Negative (Negative); Leukocyte Esterase Urine 2+ (Negative); Nitrite Urine Negative (Negative); Protein Urine Negative (Negative); Specific Gravity Urine 1.021 (1.000-1.030); Urobilinogen Urine Negative (Negative); pH Urine 5.5 (4.5-7.5)
[2024-03-15 23:09] LABS: RBC Urine Automated 0-2 /hpf (0-2)
[2024-03-15 23:10] LABS: Hyaline Casts Urine Present /lpf (None Presnt)
[2024-03-15] MEDS: Patient's HEIGHT &/or WEIGHT Needed STA (23:43)
[2024-03-16 00:44] LABS: Base Excess VBG 13.4 mEq/L; HCO3 VBG 42 mmol/L; Oxygen Saturation VBG 64.9 %; PCO2 VBG 75 mmHg (38-50); PO2 VBG 38 mmHg; pH VBG 7.36 (7.36-7.41)
[2024-03-16 00:50] LABS: Hematocrit (blood only) 30.8 % (37.0-47.0); Hemoglobin 9.9 g/dl (12.0-16.0)
[2024-03-16] MEDS: cefTRIAXone SODIUM 2,000 MG/50 ML BAG IV STA (01:57)
[2024-03-16] MEDS: SODIUM CHLORIDE 0.9% 1,000 ML IV ONE (01:57)
[2024-03-16] MEDS: ATORVASTATIN 40 MG TAB PO SCH (08:37)
[2024-03-16] MEDS: GABAPENTIN 300 MG CAP PO SCH (08:37)
[2024-03-16] MEDS: FLUTICASONE/VILANTEROL 200/25MCG 14 PUFFS/INHALER INH SCH (08:38)
[2024-03-16] MEDS: MULTIVITAMIN TAB PO SCH (08:38)
[2024-03-16] MEDS: LEVOTHYROXINE SODIUM 25 MCG TABLET PO SCH (08:38)
[2024-03-16] MEDS: UMECLIDINIUM BROMIDE 62.5MCG/BLISTER 7 PUFFS/INHALER INH SCH (08:38)
[2024-03-16] MEDS: PANTOprazole 40 MG TAB PO SCH (08:38)
[2024-03-16] MEDS: OXYBUTYNIN CHLORIDE XL 5 MG TABCR PO SCH (08:38)
[2024-03-16] MEDS: CITALOPRAM 40 MG TAB PO SCH (08:38)
[2024-03-16] MEDS ORDERED: TIOTROPIUM BROMIDE 5 PUFF/90 MCG INH INH SCH (09:00)
--- NOTE | 2024-03-16 09:51 | Electrocardiogram Report ---
Test Reason : Blood Pressure : */* mmHG Vent. Rate : 65 BPM Atrial Rate : 65 BPM P-R Int : 160 ms QRS Dur : 72 ms QT Int : 532 ms P-R-T Axes : 77 67 266 degrees QTcB Int : 553 ms Normal sinus rhythm Abnormal ECG When compared with ECG of 03-Mar-2024 10:44, Sinus rhythm has replaced Atrial flutter Confirmed by Bo Quintero ([id number]) on 03/16/2024 9:50:27 AM Referred By: REFERRED SELF Confirmed By: Bo Quintero
[2024-03-16 10:41] LABS: Calcium 8.4 mg/dl (8.6-10.3); Potassium 3.2 mmol/L (3.5-5.1)
[2024-03-16 10:46] LABS: BUN Creatinine Ratio 13.3 (10-20); Creatinine Clr Calc Pharmacy 49.7 ml/min
[2024-03-16] MEDS: ACETAMINOPHEN 325 MG TAB PO PRN (11:06)
[2024-03-16 13:05] VITALS: RESP 16
[2024-03-16] MEDS: traMADol HCL 50 MG TABLET PO PRN (14:17)
[2024-03-16 14:35] LABS: Hematocrit (blood only) 27.1 % (37.0-47.0); Hemoglobin 8.7 g/dl (12.0-16.0); Mean Corpuscular Hemoglobin 30.5 pg (25.0-34.0); Mean Corpuscular Hgb Conc 32.1 g/dL (32.0-36.0); Mean Corpuscular Volume 95.1 fL (80.0-100.0); Mean Platelet Volume 8.8 fL (9.4-12.4); Platelet Count 351 K/uL (130-400); RDW Coefficient of Variation 14.1 % (11.5-14.5); RDW Standard Deviation 48.9 fL (36.4-46.3); Red Blood Count 2.85 M/uL (4.20-5.40); White Blood Count 11.75 K/ul (4.8-10.8)
--- NOTE | 2024-03-16 15:03 | Hospitalist Progress Note ---
Date of Service March 16, 2024 Assessment & Plan (1) Asymptomatic hypertensive urgency: Plan: Ms. Kae Johnston is a 73-year-old woman with multiple recent hospitalization and past medical history of nonobstructive CAD, PAF, HTN, HLD, COPD, hypothyroidism, GERD and more admitted on 03/03 for sepsis due to acute cystitis. Patient with NSTEMI type II iso sepsis recently 03/03. Patient readmitted 03/15 due to fall with left humeral fracture. Patient ev aluated by Ortho who felt fracture could not be addressed while admitted here given how distal. Discussed with [facility] who recommended transfer for eval by elbow specialist. Patient pending transfer. #Left distal humerus fracture XRAY with 1. A fracture of the distal end / supracondylar part of the humerus with overlapping of the fracture fragments and a little lateral displacement of the proximal fracture fragment with mild soft tissue swelling. Ortho recommended transfer to [facility] given complexity of patient and location of fracture #CAD #NSTEMI type II no chest pain at this time, stable ECHO at 55-60% 03/04 Recent NSETMI 03/03 hold bp meds #Paroxysmal a fib likely iso sepsis, converted NSR discontinued amiodarone (briefly started this admission) holding eliquis hold coreg at this time 2/2 pressure #HLD continue statin #relative hypotension #HTN hold home antihypertensives midrodrine now #hypothyroidism continue synthroid #COPD continue home inhalers Resume all other chronic home medications DVT SCDs Admission and Anticipated Discharge Date Admission Date: March 15, 2024 Subjective Admitted over night Hypotensive but asymptomatic Reports pain better controlled but still present Discussed recommended transfer and understanding that transfer does not mean "surgery" is definite Physical Exam Constitutional: WD/WN, vitals as above Respiratory: normal respiratory effort, lungs clear to auscultation Cardiovascular: tachycardia Gastrointestinal (Abdomen): normal bowel sounds, soft, nontender, no hepatosplenomegaly Musculoskeletal: left arm in sling Results & Data Results & Data Vital Signs (Past 12 Hours) Vital Signs Pulse Pulse Resp BP BP Pulse Ox O2 Del Method 03/16/24 13:04 67 16 85/55 L 100 Nasal Cannula 03/16/24 11:12 69 17 114/50 L 100 Nasal Cannula 03/16/24 07:25 66 24 117/58 L 100 Nasal Cannula 03/16/24 07:00 68 03/16/24 06:30 66 17 03/16/24 06:00 65 21 03/16/24 06:00 100/57 L 03/16/24 05:45 65 19 03/16/24 05:00 98/51 L 03/16/24 05:00 98/51 L 03/16/24 05:00 65 21 96 Nasal Cannula 03/16/24 04:38 67 18 03/16/24 04:02 65 16 03/16/24 04:00 98/52 L 03/16/24 04:00 98/52 L 03/16/24 04:00 67 03/16/24 03:59 68 23 03/16/24 03:41 66 25 H O2 Flow Rate 03/16/24 13:04 4 03/16/24 11:12 4 03/16/24 07:25 4 03/16/24 07:00 03/16/24 06:30 03/16/24 06:00 03/16/24 06:00 03/16/24 05:45 03/16/24 05:00 03/16/24 05:00 03/16/24 05:00 3 03/16/24 04:38 03/16/24 04:02 03/16/24 04:00 03/16/24 04:00 03/16/24 04:00 03/16/24 03:59 03/16/24 03:41 Laboratory Results Short CBC 03/15/24 03/16/24 03/16/24 Range/Units 18:20 00:24 10:00 WBC 16.15 H Cancelled (4.8-10.8) K/ul Hgb 11.4 L 9.9 L Cancelled (12.0-16.0) g/dl Hct 35.3 L 30.8 L Cancelled (37.0-47.0) % Plt Count 476 H Cancelled (130-400) K/uL 03/16/24 Range/Units 14:15 WBC 11.75 H (4.8-10.8) K/ul Hgb 8.7 L (12.0-16.0) g/dl Hct 27.1 L (37.0-47.0) % Plt Count 351 (130-400) K/uL BMP 03/15/24 03/16/24 18:20 10:00 Sodium 136 135 L Potassium 3.6 3.2 L Chloride 90 L 93 L Carbon Dioxide 39 H 35 H BUN 12 10 Creatinine 0.85 0.75 Glucose 110 H 102 H Calcium 9.5 8.4 L Cardiac Enzymes 03/15/24 03/15/24 Range/Units 18:20 20:15 Total Creatine Kinase 107 95 (26-192) U/L Liver Function 03/15/24 Range/Units 18:20 Total Bilirubin 0.9 (0.2-1.0) mg/dl AST 22 (13-39) U/L ALT 15 (7-52) U/L Alkaline Phosphatase 93 (34-104) U/L Albumin 3.6 (3.4-5.0) gm/dl Urine 03/15/24 Range/Units 22:15 Urine Color Yellow Urine Appearance Cloudy A (Clear) Urine pH 5.5 (4.5-7.5) Ur Specific [place] 1.021 (1.000-1.030) Urine Protein Negative (Negative) Urine Glucose (UA) Negative (Negative) Medications Administered Home Medications Medication Instructions Recorded Confirmed Last Taken multivitamin 1 tab PO DAILY #0 tabs 02/07/14 03/15/24 01/30/24 calcium 600 mg (as 1 tab PO QAM ##0 04/22/17 03/15/24 01/30/24 carbonate)-vitamin D3 10 mcg (400 unit) tablet (Calcium 600 + D(3)) omega 3-qzf-yfp-fish oil 1,000 mg 1 cap PO DAILY #0 caps 04/22/17 03/15/24 01/30/24 (120 mg-180 mg) capsule (Fish Oil) magnesium oxide 400 mg PO BID #0 tabs 06/01/17 03/15/24 01/30/24 apixaban 5 mg tablet (Eliquis) 5 mg PO BID 12/06/23 03/15/24 01/30/24 AM DOSE atorvastatin 40 mg tablet 40 mg PO QAM 12/06/23 03/15/24 01/30/24 citalopram 40 mg tablet 40 mg PO QAM 12/06/23 03/15/24 01/30/24 clopidogrel 75 mg tablet 75 mg PO QAM 12/06/23 03/15/24 01/30/24 fluticasone propionate 115 2 puff inhalation AMHS 12/06/23 03/15/24 01/30/24 mcg-salmeterol 21 mcg/actuation AM DOSE HFA inhaler gabapentin 300 mg capsule 300 mg PO BID 12/06/23 03/15/24 01/30/24 AM DOSE levothyroxine 25 mcg tablet 25 mcg PO DAILYBB 12/06/23 03/15/24 01/30/24 oxybutynin chloride 5 mg 5 mg PO QAM 12/06/23 03/15/24 01/30/24 tablet,extended release 24 hr potassium chloride 10 mEq 10 meq PO AMHS 12/06/23 03/15/24 01/30/24 tablet,extended AM DOSE release(part/cryst) (Klor-Con M) trazodone 50 mg tablet 100 mg PO HS 12/06/23 03/15/24 01/29/24 nitroglycerin 0.4 mg sublingual 0.4 mg sublingual Q5M PRN chest 12/09/23 03/15/24 Unknown tablet (Nitrostat) pain #30 tabs umeclidinium 62.5 mcg/actuation 1 inh inhalation DAILY #30 ea 12/14/23 03/15/24 01/30/24 blister powder for inhalation (Incruse Ellipta) ipratropium 0.5 mg-albuterol 3 mg 3 ml NEB QIDR PRN shortness of 12/28/23 03/15/24 Unknown (2.5 mg base)/3 mL nebulization breath #90 mL soln albuterol sulfate 90 mcg/actuation 2 puff inhalation Q4 PRN WHEEZING 01/30/24 03/15/24 Unknown aerosol inhaler OR COUGH pantoprazole 40 mg tablet,delayed 40 mg PO QAM 01/30/24 03/15/24 01/30/24 release (Protonix) furosemide 40 mg tablet 20 mg (1/2 x 40 mg) PO QAM #0 tabs 02/02/24 03/15/24 01/30/24 tiotropium bromide 18 mcg capsule 1 cap inhalation QAM 03/02/24 03/15/24 Unknown with inhalation device carvedilol 3.125 mg tablet 3.125 mg PO BID 30 days #60 tabs 03/08/24 03/15/24 Unknown losartan 25 mg tablet 25 mg PO QAM 30 days #30 tabs 03/08/24 03/15/24 Unknown alendronate 70 mg tablet 70 mg PO WK 03/15/24 03/15/24 03/14/24 Active Medications Generic Name Dose Route Start Last Admin Trade Name Inga PRN Reason Stop Dose Admin Atorvastatin Calcium 40 mg 03/16/24 09:00 03/16/24 08:37 Atorvastatin 40 Mg Tab PO 04/15/24 08:59 40 mg QAM GELACIO Administration Citalopram Hydrobromide 40 mg 03/16/24 09:00 03/16/24 08:38 Citalopram 40 Mg Tab PO 04/15/24 08:59 40 mg QAM GELACIO Administration Fluticasone/Vilanterol 1 puffs 03/16/24 09:00 03/16/24 08:38 Fluticasone/Vilanterol 200/25mcg 14 Puffs/Inhaler INH 04/15/24 08:59 1 puffs DAILY GELACIO Administration Gabapentin 300 mg 03/16/24 09:00 03/16/24 08:37 Gabapentin 300 Mg Cap PO 04/15/24 08:59 300 mg BID GELACIO Administration Acetaminophen 1,000 mg in 100 mls @ 400 mls/hr 03/16/24 13:45 03/16/24 16:01 Ofirmev IV 03/19/24 13:44 Infused Q8H GELACIO Infusion Levothyroxine Sodium 25 mcg 03/16/24 06:30 03/16/24 08:38 Levothyroxine Sodium 25 Mcg Tablet PO 04/15/24 06:29 25 mcg DAILYBB GELACIO Administration Multivitamins 1 tab 03/16/24 09:00 03/16/24 08:38 Multivitamin Tab PO 04/15/24 08:59 1 tab DAILY GELACIO Administration Oxybutynin Chloride 5 mg 03/16/24 09:00 03/16/24 08:38 Oxybutynin Chloride Xl 5 Mg Tabcr PO 04/15/24 08:59 5 mg QAM GELACIO Administration Pantoprazole Sodium 40 mg 03/16/24 09:00 03/16/24 08:38 Pantoprazole 40 Mg Tab PO 04/15/24 08:59 40 mg QAM GELACIO Administration Tramadol HCl 50 mg 03/16/24 13:41 03/16/24 14:17 Tramadol Hcl 50 Mg Tablet PO 04/15/24 13:40 50 mg Q12H PRN Administration Moderate Pain (Scale 4, 5, 6) Umeclidinium Flat Top 1 puffs 03/16/24 09:00 03/16/24 08:38 Umeclidinium Flat Top 62.5mcg/Blister 7 Puffs/Inhaler INH 04/15/24 08:59 1 puffs DAILY GELACIO Administration
[2024-03-16] MEDS: ACETAMINOPHEN 1,000 MG/100 ML VIAL IV SCH (15:46)
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
[2024-03-16] MEDS: traMADol HCL 50 MG TABLET PO STA (19:12)
[2024-03-16] MEDS: MIDODRINE HCL 2.5 MG TAB PO STA (19:12)
[2024-03-16 19:52] VITALS: BP 94/57; PULSE 95; TEMP 97.9; O2SAT 99
[2024-03-16] MEDS: traZODone HCL 100 MG TAB PO SCH (20:27)
[2024-03-16] MEDS ORDERED: SODIUM CHLORIDE 0.9% 500 ML IV ONE (20:53)
[2024-03-17] MEDS ORDERED: cefTRIAXone SODIUM 2,000 MG/50 ML BAG IV SCH (02:00)
--- NOTE | 2024-03-17 17:21 | Discharge Summary ---
Discharge Summary Date of Service March 17, 2024 Principal Dx & Hospital Course #1 = Principal Diagnosis (1) Asymptomatic hypertensive urgency: Ms. Kae Johnston is a 73-year-old woman with multiple recent hospitalization and past medical history of nonobstructive CAD, PAF, HTN, HLD, COPD, hypothyroidism, GERD and more admitted on 03/03 for sepsis due to acute cystitis. Patient with NSTEMI type II iso sepsis recently 03/03. Patient readmitted 03/15 due to fall with left humeral fracture. Patient evaluated by Ortho who felt fracture could not be addressed while admitted here given how distal. Discussed with [facility] who recommended transfer for eval by elbow specialist. Patient transferred later in the evening. #Left distal humerus fracture XRAY with 1. A fracture of the distal end / supracondylar part of the humerus with overlapping of the fracture fragments and a little lateral displacement of the proximal fracture fragment with mild soft tissue swelling. Ortho recommended transfer to [facility] given complexity of patient and location of fracture #CAD #NSTEMI type II no chest pain at this time, stable ECHO at 55-60% 03/04 Recent NSETMI 03/03 hold bp meds #Paroxysmal a fib likely iso sepsis, converted NSR discontinued amiodarone (briefly started this admission) holding eliquis hold coreg at this time 2/2 pressure #HLD continue statin #relative hypotension #HTN hold home antihypertensives midrodrine now #hypothyroidism continue synthroid #COPD continue home inhalers Resume all other chronic home medications DVT SCDs Notes For Next Care Provider Medication Changes From Visit as above Admission HPI Per Admitting Provider History obtained from patient and records. Medical history significant for chronic respiratory failure secondary to COPD home O2, CAD, A-fib on Eliquis, hypertension, hyperlipidemia, chronic anemia (baseline hemoglobin 8-9), mood disorder, ongoing tobacco abuse. Recurrent admissions since November 2023. Last confinement March 03 to 2023 for severe sepsis secondary to suspected UTI. Patient discharged home. Patient got up from bed yesterday to get some grapes from the kitchen 4 days ago. [place] lightheaded because she got up too quick. Unwitnessed syncopal event resulting in head trauma. Patient landed on the left side. Patient woke up with daughter screaming at her. Sustained black eye on the left. Vision okay as per patient. Achy left arm and shoulder pain. Denies chest pain, unusual SOB. No witnessed seizures. Patient refused to to get checked out at the ER. Patient consulted ER for worsening left upper arm pain. Weakness without abdominal pain/dysuria symptoms. 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 Admission Exam Per Admitting Provider GENERAL: Slightly uncomfortable, chronically ill, episodic tachypnea SKIN: Pallor, warm HEENT: Ecchymosis on the left side of face, pale palpebral conjunctivae, no ptosis, dry buccal mucosa, nasal cannula in place NECK : Supple, no tenderness CHEST : Decreased breath sounds, no tenderness HEART : RRR, no obvious murmurs ABDOMEN: Some distention, nontender EXTREMITIES : Left shoulder tenderness, no LE swelling/tenderness, no other conspicuous deformities noted NEUROLOGIC : Coherent, no facial asymmetry, slightly hard of hearing, gait and stance not assessed Discharge Exam per progress note Updated Medication List Medication Instructions Recorded Confirmed Type multivitamin 1 tab PO DAILY #0 tabs 02/07/14 03/15/24 History calcium 600 mg (as 1 tab PO QAM ##0 04/22/17 03/15/24 History carbonate)-vitamin D3 10 mcg (400 unit) tablet (Calcium 600 + D(3)) omega 8-jwl-hjz-fish oil 1,000 mg 1 cap PO DAILY #0 caps 04/22/17 03/15/24 Hi story (120 mg-180 mg) capsule (Fish Oil) magnesium oxide 400 mg PO BID #0 tabs 06/01/17 03/15/24 History apixaban 5 mg tablet (Eliquis) 5 mg PO BID 12/06/23 03/15/24 History atorvastatin 40 mg tablet 40 mg PO QAM 12/06/23 03/15/24 History citalopram 40 mg tablet 40 mg PO QAM 12/06/23 03/15/24 History clopidogrel 75 mg tablet 75 mg PO QAM 12/06/23 03/15/24 History fluticasone propionate 115 2 puff inhalation AMHS 12/06/23 03/15/24 History mcg-salmeterol 21 mcg/actuation HFA inhaler gabapentin 300 mg capsule 300 mg PO BID 12/06/23 03/15/24 History levothyroxine 25 mcg tablet 25 mcg PO DAILYBB 12/06/23 03/15/24 History oxybutynin chloride 5 mg 5 mg PO QAM 12/06/23 03/15/24 History tablet,extended release 24 hr potassium chloride 10 mEq 10 meq PO AMHS 12/06/23 03/15/24 History tablet,extended release(part/cryst) (Klor-Con M) trazodone 50 mg tablet 100 mg PO HS 12/06/23 03/15/24 History nitroglycerin 0.4 mg sublingual 0.4 mg sublingual Q5M PRN chest 12/09/23 03/15/24 Rx tablet (Nitrostat) pain #30 tabs umeclidinium 62.5 mcg/actuation 1 inh inhalation DAILY #30 ea 12/14/23 03/15/24 Rx blister powder for inhalation (Incruse Ellipta) ipratropium 0.5 mg-albuterol 3 mg 3 ml NEB QIDR PRN shortness of 12/28/23 03/15/24 Rx (2.5 mg base)/3 mL nebulization breath #90 mL soln albuterol sulfate 90 mcg/actuation 2 puff inhalation Q4 PRN WHEEZING 01/30/24 03/15/24 History aerosol inhaler OR COUGH pantoprazole 40 mg tablet,delayed 40 mg PO QAM 01/30/24 03/15/24 History release (Protonix) furosemide 40 mg tablet 20 mg (1/2 x 40 mg) PO QAM #0 tabs 02/02/24 03/15/24 Rx tiotropium bromide 18 mcg capsule 1 cap inhalation QAM 03/02/24 03/15/24 History with inhalation device carvedilol 3.125 mg tablet 3.125 mg PO BID 30 days #60 tabs 03/08/24 03/15/24 Rx losartan 25 mg tablet 25 mg PO QAM 30 days #30 tabs 03/08/24 03/15/24 Rx alendronate 70 mg tablet 70 mg PO WK 03/15/24 03/15/24 History Hospital Stay Data Consultations 03/15/24 21:42 ED Decision to Admit Stat 03/16/24 05:44 Consult Orthopedic Surgery Routine Diagnostic Imagining Performed 03/15/24 18:10 CT abd pelvis IV con only Stat CT cervical spine wo con Stat CT chest diagnostic w con Stat CT facial bones wo con Stat CT head/brain wo con Stat Pending Results Patient Have Any Pending Studies at Discharge: No Discharge Instructions Given to Patient (Per Discharging Provider) Ms. Kae Johnston is a 73-year-old woman with multiple recent hospitalization and past medical history of nonobstructive CAD, PAF, HTN, HLD, COPD, hypothyroidism, GERD and more admitted on 03/03 for sepsis due to acute cystitis. Patient with NSTEMI type II iso sepsis recently 03/03. Patient readmitted 03/15 due to fall with left humeral fracture. Patient evaluated by Ortho who felt fracture could not be addressed while admitted here given how distal. Discussed with [facility] who recommended transfer for eval by elbow specialist. #CAD #NSTEMI type II no chest pain at this time, stable ECHO at 55-60% 03/04 Recent NSETMI 03/03 #Paroxysmal a fib likely iso sepsis, converted NSR discontinued amiodarone (briefly started this admission) holding eliquis #HLD continue statin #relative hypotension #HTN hold home antihypertensives #hypothyroidism continue synthroid #COPD continue home inhalers Resume all other chronic home medications Total Time Total Time Spent Total Time Spent (In Minutes): 45
--- OUTSIDE RECORDS SUMMARY | 2024-03-18 05:27 | External Medical Summary | Summary of Care ---
Author Name Unknown Organization [facility] Address [address] [place] [address] Phone [phone] Care Team Providers Care Manufacturing Technologist Name Role Phone Ronald Cortes MD Primary Care Provider [phone] Reason for Visit * Reason Onset Date Comments Hospital Follow-Up 03/08/2024 Encounter Details Date Type Department Care Team (Late st Contact Info) Description 03/08/2024 Telephone [facility] [address] [facility] [address] Paty Liu MD [address] [place] [address] Hospital Follow-Up Allergies Active Allergy Reactions Criticality Noted Date Comments Bee Venom Anaphylaxis High 02/27/2006 Doxycycline Low 08/04/2023 Intolerant, GI upset documented as of this encounter (statuses as of 03/14/2024) Medications CALCIUM + D 600-200 MG-UNIT PO TABS 1 BID 0 03/13/20 06 Active MULTIVITAMINS PO TABS daily 0 03/13/20 06 Active ACETAMINOPHEN 325 MG PO TABSIndications:IN TERFACED RESULT,Pneumothora x 2 Tab Oral Every 6 hours as needed for fever, pain, headache 1 Tab 0 07/28/19 14 Active [place]-3 Fatty Acids (FISH OIL) 1000 MG Capsule 1 Capsule in the morning. Active TO GO ondansetron ODT (ZOFRAN ODT) 4 MG Orally Disintegrated TabletIndications: Nonspecific colitis 1 tab every 8 hrs as needed for nausea 30 Each 3 07/12/19 20 Active Additional Information Patient not taking.Reported on 02/08/2024 Magnesium Oxide 400 MG Oral TabletIndications: Hypomagnesemia Take 1 Tablet by mouth in the morning. 90 Tablet 3 07/30/19 23 Active Estradiol 0.1 MG/GM Vaginal Cream (Estrace) Apply pea sized amount (0.5 gm) vaginally twice a week at bedtime 42.5 g 3 11/26/19 23 Active Additional Information Patient not taking.Reported on 07/01/2023 Econazole Nitrate 1 % External Cream (Spectazole)Indica tions:Candidal intertrigo Apply topically to affected area daily. Apply to affected area (under breast) twice daily 85 g 1 07/01/19 24 Active Furosemide 40 MG Oral Tablet (Lasix) 06/02/19 24 Active oxyBUTYnin Chloride ER 5 MG Oral Tablet Extended Release 24 Hour (Ditropan XL) 06/02/19 24 Active Triamcinolone Acetonide 0.1 % External Ointment (Aristocort)Indica tions:Candidal intertrigo Apply topically to affected area 2 times a day. To affected area. 80 g 5 07/02/19 24 Active Clotrimazole 1 % External Cream (Lotrimin)Indicati ons:Candidal intertrigo Apply topically to affected area 2 times a day. Apply to area under breast twice daily until resolved 85 g 3 07/02/19 24 Active Gabapentin 300 MG Oral Capsule (Neurontin)Indicat ions:Post-traumati c arthrosis of multiple joints TAKE 1 CAPSULE THREE TIMES DAILY 270 Capsule 2 08/05/19 24 Active Potassium Chloride Unique ER 10 MEQ Oral Tablet Extended Release Take 1 Tablet by mouth in the morning and 1 Tablet before bedtime. 180 Tablet 2 08/05/19 24 Active traZODone HCl 50 MG Oral Tablet (Desyrel)Indicatio ns:Sleep disorder TAKE 1 TO 2 TABLETS BEFORE BEDTIME. 180 Tablet 1 08/05/19 24 Active Alendronate Sodium 70 MG Oral Tablet (Fosamax)Indicatio ns:Other osteoporosis without current pathological fracture,Dyslipide amita, goal LDL below 100 TAKE 1 TABLET EVERY WEEK DIRECTED , SEE PACKAGE FOR ADDITIONAL INSTRUCTIONS 12 Tablet 2 08/05/19 24 Active Levothyroxine Sodium 25 MCG Oral Tablet (Levoxyl)Indicatio ns:Acquired hypothyroidism Take 1 Tablet by mouth in the morning. (at least 30 min prior to breakfast or other meds). 90 Tablet 3 08/05/19 24 Active Omeprazole 20 MG Oral Capsule Delayed Release (PriLOSEC)Indicati ons:Gastroesophage al reflux disease, unspecified whether esophagitis present Take 1 Capsule by mouth in the morning. 1 hour before the first meal of the day.. 90 Capsule 2 08/05/19 24 Active traMADol HCl 50 MG Oral Tablet (Ultram)Indication s:Generalized osteoarthritis of multiple sites Take 1 Tablet by mouth every 6 hours as needed for Pain, Moderate. 45 Tablet 08/07/19 24 Active Fluticasone-Salmet jody 115-21 MCG/ACT Inhalation Aerosol (Advair Hfa) Inhale 2 Puffs by mouth in the morning and 2 Puffs before bedtime. 12 g 12 09/03/19 24 Active Additional Information Patient taking differently: 1 PuffInhalationPRN, Reported on 11/13/2023 Citalopram Hydrobromide 40 MG Oral Tablet (CeleXA) TAKE 1 TABLET BY MOUTH EVERY DAY IN THE MORNING 90 Tablet 3 09/08/19 24 Active Ondansetron HCl 4 MG Oral Tablet (Zofran)Indication s:Nausea without vomiting TAKE 1 TABLET EVERY 8 HOURS NEEDED FOR NAUSEA 20 Tablet 3 10/09/19 24 Active Clopidogrel Bisulfate 75 MG Oral Tablet (pLAVix) Take 1 Tablet by mouth in the morning. 90 Tablet 3 11/13/19 24 Active Full Kit Nebulizer Set Use with Nebulizer Medication EVERY SIX HOURS WHILE AWAKE as directed. Dx Code: J44.9 1 Each 3 11/18/19 24 Active Albuterol Sulfate 0.63 MG/3ML Inhalation Nebulization Solution (Accuneb) Inhale 1 Vial via nebulizer every 6 hours as needed for Wheezing or Shortness of Breath. Dx Code J 44.9 360 mL 11/18/19 24 Active Atorvastatin Calcium 40 MG Oral Tablet (Lipitor) TAKE 1 TABLET BY MOUTH EVERY DAY IN THE MORNING 90 Tablet 11/28/19 24 Active Eliquis 5 MG Oral Tablet (Apixaban)Indicati ons:Paroxysmal atrial fibrillation (HCC) TAKE 1 TABLET BY MOUTH IN THE MORNING AND BEFORE BEDTIME 180 Tablet 3 11/28/19 24 Active Nitroglycerin 0.4 MG Sublingual Tablet Sublingual (Nitrostat) Place 1 Tablet under the tongue every 5 minutes as needed for Pain, Chest. Active predniSONE 20 MG Oral Tablet (Deltasone) 12/14/19 Active Incruse Ellipta 62.5 MCG/ACT Inhalation Aerosol Powder Breath Activated 12/14/19 Active Pantoprazole Sodium 40 MG Oral Tablet Delayed Release (Protonix)Indicati ons:Gastroesophage al reflux disease, unspecified whether esophagitis present Take 1 Tablet by mouth in the morning. 90 Tablet 3 02/03/20 Active Albuterol Sulfate HFA 108 (90 Base) MCG/ACT Inhalation Aerosol Solution Inhale 2 Puffs by mouth every 4 hours as needed for Wheezing or Cough. 54 g 3 02/08/20 Active Tiotropium [place] Monohydrate 18 MCG Inhalation Capsule (Spiriva HandiHaler) Inhale 1 Capsule by mouth in the morning. INHALE THE CONTENTS OF 1 CAPSULE EVERY DAY VIA HANDIHALER (DO NOT SWALLOW). 90 Capsule 3 02/08/20 Active Carvedilol 12.5 MG Oral Tablet (Coreg)Indications :Dyslipidemia, goal LDL below 100,HTN, goal below 150/90 TAKE 1 AND 1/2 TABLETS BY MOUTH TWICE DAILY 270 Tablet 3 11/28/19 24 024 Discontin ued(Disch arged) Cephalexin 250 MG Oral Capsule (Keflex) Take 2 Capsules by mouth in the morning and 2 Capsules before bedtime. 02/02/20 24 024 Discontin ued(End of Procedure ) Amiodarone HCl 200 MG Oral Tablet (Cordarone) Take 1 Tablet by mouth in the morning. Discontin ued(Disch arged) Hospital, Clinic, or Other Facility Administered Medication [...] as of this encounter (statuses as of 03/14/2024) Active Problems Problem Noted Date Diagnosed Date [...] [place] heart without angina pectoris 07/01/2023 Hematuria of undiagnosed cause 07/12/2019 Tobacco use disorder 12/21/2017 Chronic nonspecific lung disease 06/16/2017 HTN, goal below 150/90 11/16/2015 Osteoporosis 12/28/2014 Dyslipidemia, goal LDL below 100 06/10/2010 Generalized osteoarthritis of multiple sites 02/2011 GENERALIZED ANXIETY DIS 12/05/2004 COMMON MIGRAINE WITHOUT MENTION OF INTRACTABLE M IGRAINE documented as of this encounter (statuses as of 03/14/2024) Resolved Problems Problem Noted Date Diagnosed Date [...] 12/31/2016 Overweight (BMI 25.0-29.9) 07/09/2009 0 12/31/2016 Overview (07/09/2009): Per Obesity Taxonomy Dyslipidemia, goal to be determined 03/26/2009 06/10/2010 Overview (03/26/2009): Per Lipid Taxonomy. Chest pain 02/27/2006 12/31/2016 ADVANCE DIRECTIVE INFORMATION 01/17/2005 02/15/2024 Overview (01/17/2005): No, Advance Directive brochure given to patient. Menopause 01/17/2005 12/31/2016 Edema 07/26/2004 12/31/2016 Dental disorder 07/26/2004 12/31/2016 OBESITY, UNSPECIFIED 09/14/2002 010 Overview (07/09/2009): Per Obesity Taxonomy HTN, goal below 140/90 06/02/200111/15 Mixed dyslipidemia 9 Overview (03/26/2009): Per Lipid Taxonomy. Tobacco use disorder 000 documented as of this encounter (statuses as of 03/14/2024) Immunizations Name Administration Dates Next Due COVID-19, MRNA-LNP, PF, 30 M CG/0.3 mL, 12 YRS AND ABOVE, IM (PFIZER-Comirnaty) 02/08/2024 Influenza, Whole Virus 01/28/1999 Pneumococcal Conjugate Vacc, 13 Valent (Prevnar) 11/17/2014 Pneumococcal Polysaccharide PPV23 (Pneumovax) 12/31/2016,06/10/2010 Season Influenza, Quad, PF, Adjuvanted, 65+ Yrs, IM (FLUAD) 01/24/2020 Seasonal Influenza Vac., MDV , IM, 0.5 mL (Fluzone) 12/28/2013,01/19/2013,01/15/2012,01/11,02/11/2010,05/12/2008,05/12/19 09(Deferred: Patient Refused),03/15/2007,02/13/2006 Seasonal Influenza Virus Vac cine, Unspecified Formulation 02/28/1998 Seasonal Influenza, High Dos e, Trivalent, PF, [...] in the Last Year Never true 03/30/2019 Comments No Sex and Gender Information Value Date Recorded Sex Assigned at Female 03/30/2019 1:22 PM EST Legal Sex Female 6:12 AM EST Gender Identity Female 03/30/2019 1:22 PM EST Sexual Orientation Bisexual 03/30/2019 1: 22 PM EST Occupation Industry Job Start Date Job End Date Not on file Not on file Not on file 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 Answer Date of Assessment Author No 08/08/2013 9:56 PM Barry Charles RN * Are you blind or do you have serious difficulty seeing, even when wearing glasses? Answer Date of Assessment Author No 08/08/2013 9:56 PM EDT Barry Doherty RN * Do you have serious difficulty walking or climbing stairs? (5 years old or older) Answer Date of Assessment Author Yes 08/08/2013 9:56 PM EDT Barry Doherty RN * Do you have difficulty dressing or bathing? (5 years old or older) Answer Date of Assessment Author No 08/08/2013 9:56 PM EDT Barry Doherty RN * Because of a physical, mental, or emotional condition, do you have difficulty doing errands alone such as visiting a doctors office or shopping? (15 years old or older) Answer Date of Assessment Author No 08/08/2013 9:56 PM EDT Barry Doherty RN documented as of this encounter Mental Status * Because of a physical, mental, or emotional condition, do you have serious difficulty concentrating, remembering, or making decisions? (5 years old or older) Answer Entry Date Author No 08/08/2013 9:56 PM EDT Barry Doherty RN documented in this encounter Miscellaneous Notes * Telephone Encounter - Virgilio Perez OSA - 03/14/2024 1:13 PM EST Anahi, this patient sees Dr. Lennon. She has an upcoming appt on 06/07/24. However, this may be to far out. Please advise with whom I could schedule with for a sooner appt. Thank you. * Telephone Encounter - Emily Zimmerman LPN - 03/08/2024 11:35 AM EST Kae is discharging to home today. Dr. Liu is recommending outpatient follow-up with cardiology. Please contact Kae to schedule. Thank you. documented in this encounter Plan of Treatment Upcoming Encounters Date Type Department Care Team (Late st Contact Info) Description 03/16/2024 11:00 AM EST Office Visit [facility] [address] [place] [id number] Ronald Cortes MD [address] [place] [address] 04/28/2024 1:00 PM EST Office Visit [facility] [address] [place] [address] Hitesh Gordillo, [address] [place] [address] 05/23/2024 2:00 PM EST Office Visit Pulmonary Medicine, [facility] [address] [place] [address] Marbin Serrano MD [address] [place] [address] 06/07/2024 8:30 AM EST Office Visit Cardiology, [facility] [address] [place] [address] Pepe Lennon, [address] [facility] [place] [address] 07/13/2024 3:30 PM EDT Imaging Radiology, [address] [address] Scheduled Procedures Name Priority Associated Diagnoses Date/Ti [...] D LEVEL ONCE IN A LIFETIME-USE SMARTSET# 60158 Completed 03/22/2015 Pneumococcal Vaccine: 65+ Years Completed [...] encounter Medical Devices Implanted Type Area Assistant Service Manager Device Identifier Shelf Expiration Date Model / Serial / Lot Chip Cancellous 5cc [id number] - [id number] Implanted:Qty: 1 on 08/08/2013 at [place] [facility] Tissue - Human Left: Foot MUSCULOSKELETAL TRANSPLANT FND 07/24/2015 [id number] / [id number] / Screw Nonlock 3.5 X 24 - [id number] Implanted:Qty: 1 on 08/08/2013 at [place] [facility] Left: Foot ORTHOHELIX [employer] DESIGNS JAVA WEB DEVELOPER-011-3 5-24 / / Screw Locking 3.5 X 16 - [id number] Implanted:Qty: 2 on 08/08/2013 at [place] [facility] Left: Foot ORTHOHELIX SURGICAL DESIGNS JAVA WEB DEVELOPER-021-3 5-16 / / Plate 6 Hole Beta Mxl-0026 - [id number] Implanted:Qty: 1 on 08/08/2013 at [place] [facility] Left: Foot ORTHOHELIX [employer] DESIGNS MXL-0026 / / Screw Locking 3.5 X 20 - [id number] Implanted:Qty: 1 on 08/08/2013 at [place] [facility] Left: Foot ORTHOHELIX SURGICAL DESIGNS JAVA WEB DEVELOPER-021-3 5-20 / / Screw Nonlock 3.5 X 16 - [id number] Implanted:Qty: 1 on 08/08/2013 at [place] [facility] Left: Foot ORTHOHELIX SURGICAL DESIGNS JAVA WEB DEVELOPER-011-3 5-16 / / Screw Nonlock 3.5 X 18 - [id number] Implanted:Qty: 1 on 08/08/2013 at [place] [facility] Left: Foot ORTHOHELIX SURGICAL DESIGNS JAVA WEB DEVELOPER-011-3 5-18 / / Screw Nonlock 3.5 X 14 - [id number] Implanted:Qty: 1 on 08/08/2013 at [place] [facility] Left: Foot ORTHOHELIX SURGICAL DESIGNS JAVA WEB DEVELOPER-011-3 5-14 / / 4.0 X 3.0 Short Max Torque Implanted:Qty: 1 on 08/08/2013 at [place] [facility] Left: Foot ORTHOHELIX SURGICAL DESIGNS MSD-010-4 0-030S / / 4.0 X 32.5 Short Max Torque Implanted:Qty: 1 on 08/08/2013 at [place] [facility] Left: Foot MSD-010-4 0-325S / / 4.0 X 28 Short Max Torque Implanted:Qty: 1 on 08/08/2013 at [place] [facility] Left: Foot ORTHOHELIX SURGICAL DESIGNS MSD-010-4 0-028S / / 4.0 X 22 Short Max Torque Implanted:Qty: 1 on 08/08/2013 at [place] [facility] Left: Foot ORTHOHELIX SURGICAL DESIGNS MSD-010-4 0-022S / / [place] Gold 4.0 - [id number] Implanted:Qty: 1 on 08/08/2013 at [place] [facility] Left: Foot ORTHOHELIX SURGICAL DESIGNS CSS-500-4 0A / / Plate Lps Alpha 2 Slot - [id number] Implanted:Qty: 1 on 08/08/2013 at [place] [facility] Left: Foot ORTHOHELIX SURGICAL DESIGNS MXL-002-2 A / / Screw Variable 3.5 X 12mm - [id number] Implanted:Qty: 1 on 08/08/2013 at [place] [facility] Left: Foot ORTHOHELIX SURGICAL DESIGNS RAKESH-031-3 5-12 / / Screw Variable 3.5 X 18mm - [id number] Implanted:Qty: 1 on 08/08/2013 at [place] [facility] Left: Foot ORTHOHELIX SURGICAL DESIGNS RAKESH-031-3 5-18 [...] Power of Attor elizabeth? No Care Teams Manufacturing Technologist Relationship Specialty Start Date End Date Ronald Cortes MD [address] [place] [address] PCP - General 06/10/02 documented as of this encounter
--- OUTSIDE RECORDS SUMMARY | 2024-03-18 05:27 | External Medical Summary | Summary of Care ---
Author Name Unknown Organization [facility] Address [address] [place] [address] Phone [phone] Care Team Providers Care Gem Carver Name Role Phone Ronald Cortes MD Primary Care Provider [phone] Reason for Visit * Reason Onset Date Comments Hospital Follow-Up 03/11/2024 [facility] ([facility]) Encounter Details Date Type Department Care Team ([facility] st Contact Info) Description 03/11/2024 Telephone [place] [address] [place] [address] Ping Payan RN Hospital Follow-Up ([facility] ([facility])) Allergies Active Allergy Reactions Criticality Noted Date Comments Bee Venom Anaphylaxis High 02/27/2006 Doxycycline Low 08/04/2023 Intolerant, GI upset documented as of this encounter (statuses as of 03/11/2024) Medications CALCIUM + D 600-200 MG-UNIT PO TABS 1 BID 0 03/13/20 06 Active MULTIVITAMINS PO TABS daily 0 03/13/20 06 Active ACETAMINOPHEN 325 MG PO TABSIndications:IN TERFACED RESULT,Pneumothora x 2 Tab Oral Every 6 hours as needed for fever, pain, headache 1 Tab 0 07/28/19 14 Active Colp-3 Fatty Acids (FISH OIL) 1000 MG Capsule [...] Cough. 54 g 3 02/08/20 Active Tiotropium [place] Monohydrate 18 MCG Inhalation Capsule (Spiriva HandiHaler) Inhale 1 Capsule by mouth in the morning. INHALE THE CONTENTS OF 1 CAPSULE EVERY DAY VIA HANDIHALER (DO NOT SWALLOW). 90 Capsule 3 02/08/20 Active Carvedilol 3.125 MG Oral Tablet (Coreg) Take 1 Tablet by mouth 2 times a day with morning and evening meals. 03/08/20 Active Cefuroxime Axetil 250 MG Oral Tablet (Ceftin) Take 1 Tablet by mouth in the morning and 1 Tablet before bedtime. 03/08/20 Active Losartan Potassium 25 MG Oral Tablet (Cozaar) Take 1 Tablet by mouth in the morning. 03/08/20 Active Carvedilol 12.5 MG Oral Tablet (Coreg)Indications :Dyslipidemia, goal LDL below 100,HTN, goal below 150/90 TAKE 1 AND 1/2 TABLETS BY MOUTH TWICE DAILY 270 Tablet 3 11/28/19 24 Discontin ued(Disch arged) Cephalexin 250 MG Oral Capsule (Keflex) Take 2 Capsules by mouth in the morning and 2 Capsules before bedtime. 02/02/20 24 Discontin ued(End of Procedure ) Amiodarone HCl [...] as of this encounter (statuses as of 03/11/2024) Active Problems Problem Noted Date Diagnosed Date History of atrial fibrillation 02/08/2024 Gait difficulty 02/08/2024 Chronic respiratory failure with hypoxia 024 COPD, group B, by GOLD 2017 classification 09/20 Overview: Per COPD GOLD Classification Acquired hypothyroidism 07/19/2023 History of coronary angioplasty with insertion o f stent 07/01/2023 Coronary artery disease invo lving [place] coronary artery of [place] heart without angina pectoris 07/01/2023 Hematuria of undiagnosed cause 07/12/2019 Tobacco use disorder 12/21/2017 Chronic nonspecific lung disease 06/16/2017 HTN, goal below 150/90 11/16/2015 Osteoporosis 12/28/2014 Dyslipidemia, goal LDL below 100 06/10/2010 Generalized osteoarthritis of multiple sites 02/2011 GENERALIZED ANXIETY DIS 12/05/2004 COMMON MIGRAINE WITHOUT MENTION OF INTRACTABLE M IGRAINE documented as of this encounter (statuses as of 03/11/2024) Resolved Problems Problem Noted Date Diagnosed Date [...] as of this encounter (statuses as of 03/11/2024) Immunizations Name Administration Dates Next Due COVID-19, [...] file Not on file Not on file 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 (5 years old or older) Answer Date of Assessment Author Yes 08/08/2013 9:56 PM Barry Charles RN * Do you have difficulty dressing or bathing? (5 years old or older) Answer Date of Assessment Author No 08/08/2013 9:56 PM Barry Charles RN * Because of a physical, mental, or emotional condition, do you have difficulty doing errands alone such as visiting a doctors office or shopping? (15 years old or older) Answer Date of Assessment Author No 08/08/2013 9:56 PM Barry Charles RN documented as of this encounter Mental Status * Because of a physical, mental, or emotional condition, do you have serious difficulty concentrating, remembering, or making decisions? (5 years old or older) Answer Entry Date Author No 08/08/2013 9:56 PM Barry Charles RN documented in this encounter Miscellaneous Notes * Telephone Encounter - Ping Payan RN - 03/11/2024 9:56 AM EST Images from the original note were not included. Transitions of Care Note Reason for Referral:Recent Admission Phone visit for follow up: [facility] Admitted to: [facility], Date: 03/03/2024 Discharged to: Home, Date: 03/08/2024 Diagnosis driving hospitalization: Sepsis due to UTI Source/Contact: Patient SUBJECTIVE Consent: Verbal consent for review of hospital discharge: Yes REVIEW OF SYSTEMS Patient/Other Reports: Current patient/caregiver problems or concerns: Doing "pretty good" at home. No concerns CV: Denies problems Pulmonary: Denies problems Chills/Sweats/Fever:Denies chills/sweats Denies fever Appetite:Denies problems such as nausea, vomiting, burning, decreased appetite Current diet: Heart Healthy Bowel: denies problems Bladder: denies problems Wound (If applicable): N/A Pain:Denies Sleep:Has trouble sleeping at night, will talk with PCP FUNCTIONAL STATUS: ADL'S: Needs Assistance With:Bathing, daughter helps. Using O2 3L/NC cont and cane or walker IADL'S: Needs Assistance With:Grocery Shopping, Cooking food, Routine Housework, and Taking medications Cognitive and Mental Health: denies problems, alert and oriented x 3, and able to communicate, understand instructions, process information. MEDICATION RECONCILIATION Medications: Discharge med list reviewed with patient or caregiver States they are getting her meds from the pharmacy today ASSESSMENT Medication Risk Assessment: See above Did patient fail outpatient treatment? No Discharge instructions available for review? Yes PLAN Symptom Monitoring Interventions:Member/caregiver education - signs and symptoms to contact PrimaryCare (DO NOT DELETE-Three mcgarry symptoms patient is to report to PCP) 1. Chest Pain/SOB 2. Fever/chills 3. Any worsening symptoms Qualitative Field CoordinatorAdministrative Assistant of Care interventions/Action Plan: 5 - 7 day follow-up with PCP in place - Date: PCP appointment 03/16/2024 Educated on role of SUNITHA completed with patient/caregiver. Educated patient/caregiver on patient right to have input on [facility] plan of care. Verification of Home Health/DME if indicated: YES OPPT script given by hospital Identified Care Gaps: Yes Care Gaps closed this call: Appointment made or confirmed and Transition of Care follow-up communication Re-evaluation of Plan of Care and progress towards goals achievement: Patient education this visit: Verbal, Confirmed PCP appointment, reasons to call sooner if needed Plan to instructed to call Primary Care Provider with change in symptoms or as needed before next follow-up, discharge needs met, verbalizes understanding and agrees with plan. Ping Payan, RN documented in this encounter Plan of Treatment Upcoming Encounters Date Type Department Care Team (Late st Contact Info) Description 03/16/2024 11:00 AM EST Office Visit [facility] [address] [phone] Ronald Cortes MD [address] [address] 04/28/2024 1:00 PM EST Office Visit [facility] [address] [place] [address] Hitesh Gordillo, DO [address] [facility] [place] [address] 05/23/2024 2:00 PM EST Office Visit Pulmonary Medicine, [facility] [address] [facility] [place] [address] Marbin Serrano MD [address] [place] [id number] 06/07/2024 8:30 AM EST Office Visit Cardiology, [facility] [address] [facility] [place] [address] Pepe Lennon, DO [address] [place] [address] 07/13/2024 3:30 PM EDT Imaging Radiology, [address] [place] [address] Scheduled Procedures Name Priority Associated Diagnoses Date/Ti [...] D LEVEL ONCE IN A LIFETIME-USE SMARTSET# 26209 Completed 03/22/2015 Pneumococcal Vaccine: 65+ Years Completed [...] this encounter Medical Devices Implanted Type Area Lock Technician Device Identifier Shelf Expiration Date Model / Serial / Lot Chip Cancellous [facility] [id number] - [id number] [place]planted:Q[place] 1 [place] [facility] [place] Left: Foot MUSCULOSKELETAL TRANSPLANT FND 07/24/2015 [id number] / [id number] / Screw Nonlock 3.5 X 24 - [id number] Implanted:Qty: 1 on 08[place]08[place]2013 [place] [facility] [place]: Foot ORTHOHELIX SURGICAL DESIGNS TOUR COORDINATOR-011-3 5-24 / / Screw Locking 3.5 X 16 - [id number] Implanted:Qty: 2 on 08/08/2013 [place] [facility] [place]: Foot ORTHOHELIX SURGICAL DESIGNS TOUR COORDINATOR-021-3 5-16 / / Plate 6 Hole Beta Mxl-0026 - [id number] Implanted:Qty: 1 on 08/08/2013 [place] [facility] [place]: Foot ORTHOHELIX SURGICAL DESIGNS MXL-0026 / / Screw Locking 3.5 X 20 - [id number] Implanted:Qty: 1 on 08/08/2013 [place] [facility] [place]: Foot ORTHOHELIX SURGICAL DESIGNS TOUR COORDINATOR-021-3 5-20 / / Screw Nonlock 3.5 X 16 - [id number] Implanted:Qty: 1 on 08/08/2013 [place] [facility] [place]: Foot ORTHOHELIX SURGICAL DESIGNS TOUR COORDINATOR-011-3 5-16 / / Screw Nonlock 3.5 X 18 - [id number] Implanted:Qty: 1 on 08/08/2013 [place] [facility] [place]: Foot ORTHOHELIX SURGICAL DESIGNS TOUR COORDINATOR-011-3 5-18 / / Screw Nonlock 3.5 X 14 - [id number] Implanted:Qty: 1 on 08/08/2013 [place] [facility] [place]: Foot ORTHOHELIX SURGICAL DESIGNS TOUR COORDINATOR-011-3 5-14 / / 4.0 X 3.0 Short Max Torque Implanted:Qty: 1 on 08/08/2013 [place] [facility] [place]: Foot ORTHOHELIX SURGICAL DESIGNS MSD-010-4 0-030S / / 4.0 X 32.5 Short Max Torque Implanted:Qty: 1 on 08/08/2013 [place] [facility] [place]: Foot MSD-010-4 0-325S / / 4.0 X 28 Short Max Torque Implanted:Qty: 1 on 08/08/2013 [place] [facility] [place]: Foot ORTHOHELIX SURGICAL DESIGNS MSD-010-4 0-028S / / 4.0 X 22 Short Max Torque Implanted:Qty: 1 on 08/08/2013 [place] [facility] [place]: Foot ORTHOHELIX SURGICAL DESIGNS MSD-010-4 0-022S / / [place] Gold 4.0 - [id number] Implanted:Qty: 1 on 08/08/2013 [place] [facility] [place] Left: Foot ORTHOHELIX SURGICAL DESIGNS CSS-500-4 0A / / Plate Lps Alpha 2 Slot - [id number] Implanted:Qty: 1 on 08/08/2013 [place] [facility] [place]: Foot ORTHOHELIX SURGICAL DESIGNS MXL-002-2 A / / Screw Variable 3.5 X 12mm - [id number] Implanted:Qty: 1 on 08/08/2013 [place] [facility] [place]: Foot ORTHOHELIX SURGICAL DESIGNS RAKESH-031-3 5-12 / / Screw Variable 3.5 X 18mm - [id number] Implanted:Qty: 1 on 08/08/2013 [place] [facility] [place]: Foot ORTHOHELIX SURGICAL DESIGNS RAKESH-031-3 5-18 [...] Power of Attor elizabeth? No Care Teams Gem Carver Relationship Specialty Start Date End Date Ronald Cortes MD [address] [place] [address] PCP - General 06/10/02 documented as of this encounter
--- OUTSIDE RECORDS SUMMARY | 2024-03-18 05:28 | External Medical Summary | Summary of Care ---
Author Name Unknown Organization [facility] Address [address] [place] [facility] [address] Phone [phone] Care Team Providers Care Sort Manager Name Role Phone Ronald Cortes MD Primary Care Provider [phone] Reason for Visit * Reason Onset Date Comments Order Request 01/12/2024 [facility] order cancel led Encounter Details Date Type Department Care Team (Late st Contact Info) Description 01/12/2024 Telephone Pulmonary Medicine, [facility] [address] [facility] [place] [address] Marbin Serrano MD [address] [facility] [place] [phone] Order Request ([facility] order cancelled) Allergies Active Allergy Reactions Criticality Noted Date Comments Bee Venom Anaphylaxis High 02/27/2006 Doxycycline Low 08/04/2023 Intolerant, GI upset documented as of this encounter (statuses as of 03/09/2024) Medications CALCIUM + D 600-200 MG-UNIT PO TABS 1 BID 0 03/13/20 06 Active MULTIVITAMINS PO TABS daily 0 03/13/20 06 Active ACETAMINOPHEN 325 MG PO TABSIndications:IN TERFACED RESULT,Pneumothora x 2 Tab Oral Every 6 hours as needed for fever, pain, headache 1 Tab 0 07/28/19 14 Active [place]-3 Fatty Acids (FISH OIL) 1000 MG Capsule 1 Capsule in the morning. Active TO GO ondansetron ODT (ZOFRAN ODT) 4 MG Orally Disintegrated TabletIndications: Nonspecific colitis 1 tab every 8 hrs as needed for nausea 30 Each 3 07/12/19 Active Additional Information Patient not taking.Reported on 02/08/2024 Magnesium Oxide 400 MG Oral TabletIndications: Hypomagnesemia Take 1 Tablet by mouth in the morning. 90 Tablet 3 07/30/19 Active Estradiol 0.1 MG/GM Vaginal Cream (Estrace) [...] DAILY 270 Capsule 2 08/05/19 24 Active Additional Information Patient taking differently: 300 [...] AND BEFORE BEDTIME 180 Tablet 3 11/28/19 Active Carvedilol 12.5 MG Oral Tablet (Coreg)Indications :Dyslipidemia, goal LDL below 100,HTN, goal below 150/90 TAKE 1 AND 1/2 TABLETS BY MOUTH TWICE DAILY 270 Tablet 3 11/28/19 24 Active Nitroglycerin 0.4 MG Sublingual Tablet Sublingual (Nitrostat) Place 1 Tablet under the tongue every 5 minutes as needed for Pain, Chest. Active predniSONE 20 MG Oral Tablet (Deltasone) 12/14/19 Active Incruse Ellipta 62.5 MCG/ACT Inhalation Aerosol Powder Breath Activated 12/14/19 Active Albuterol Sulfate HFA 108 (90 Base) MCG/ACT Inhalation Aerosol Solution Inhale 2 Puffs by mouth every 4 hours as needed for Wheezing or Cough. 18 g 5 07/01/19 24 Discontin ued(Refil l) Tiotropium [place] Monohydrate 18 MCG Inhalation Capsule (Spiriva HandiHaler) INHALE THE CONTENTS OF 1 CAPSULE EVERY DAY VIA HANDIHALER (DO NOT SWALLOW) 90 Capsule 3 09/03/19 24 Discontin ued(Refil l) Pantoprazole Sodium 40 MG Oral Tablet Delayed Release (Protonix) Take 1 Tablet by mouth in the morning. Discontin ued(Refil l) Spironolactone 25 MG Oral Tablet (Aldactone) Take 1 Tablet by mouth in the morning. Discontin ued(Disch arged) Losartan Potassium 50 MG Oral Tablet (Cozaar) Take 1 Tablet by mouth in the morning. Discontin ued(Disch arged) Amoxicillin-Pot Clavulanate 875-125 MG Oral Tablet (Augmentin) TAKE 1 TABLET BY MOUTH EVERY 12 HOURS FOR 4 DAYS 12/09/19 24 Discontin ued(Patie nt preferenc e/discont inuation) Hospital, Clinic, or Other Facility Administered Medication [...] as of this encounter (statuses as of 03/09/2024) Active Problems Problem Noted Date Diagnosed Date History of atrial fibrillation 02/08/2024 Gait difficulty 02/08/2024 Chronic respiratory failure with hypoxia 024 COPD, group B, by GOLD 2017 classification 09/20 Overview: Per COPD GOLD Classification Acquired hypothyroidism 07/19/2023 History of coronary angioplasty with insertion o f stent 07/01/2023 Coronary artery disease invo lving [place] coronary artery of [place] heart without angina pectoris 07/01/2023 Hematuria of undiagnosed cause 07/12/2019 Tobacco use disorder 12/21/2017 Chronic nonspecific lung disease 06/16/2017 HTN, goal below 150/90 11/16/2015 Osteoporosis 12/28/2014 Dyslipidemia, goal LDL below 100 06/10/2010 Generalized osteoarthritis of multiple sites 02/2011 GENERALIZED ANXIETY DIS 12/05/2004 COMMON MIGRAINE WITHOUT MENTION OF INTRACTABLE M IGRAINE documented as of this encounter (statuses as of 03/09/2024) Resolved Problems Problem Noted Date Diagnosed Date [...] as of this encounter (statuses as of 03/09/2024) Immunizations Name Administration Dates Next Due Pneumococcal [...] file Not on file Not on file Brewing Technician Not on file Not on file [...] Telephone Encounter - Lorna Silva LPN - 01/12/2024 8:00 AM EDT TH notified us that the nebulizer order has been cancelled, because the DME was unable to contact pt. She never returned any of their messages. documented in this encounter Plan of Treatment Upcoming Encounters Date Type Department Care Team (Late st Contact Info) Description 03/09/2024 6:20 PM EST [facility] [address] [place] [phone] Ronald Cortes MD [address] [id number] 03/16/2024 11:00 AM EST [facility] [address] [place] [phone] Ronald Cortes MD [address] [phone] 04/28/2024 1:00 PM EST Office Visit [facility] [address] [place] [address] Hitesh Gordillo, DO 16 [place] [address] 05/23/2024 2:00 PM EST Office Visit Pulmonary Medicine, [facility] [address] [facility] [place] [address] Marbin Serrano MD [address] [place] [address] 06/07/2024 8:30 AM EST Office Visit Cardiology, [facility] [address] [facility] [place] [address] Pepe Lennon, DO [address] [facility] [place] [address] 07/13/2024 3:30 PM EDT Imaging Radiology, [address] [place] [address] Scheduled Procedures Name Priority Associated Diagnoses Date/Ti me COLONOSCOPY FLEXIBLE PROXIMA L DIAGNOSTIC Recall Encounter for screening colonoscopy Health Maintenance Due Date Last Done Comments DISCUSS TOBACCO CESSATION (REFER TO SMARTSET #7685) 1950 Alpha-1 Antitrypsin 1967 Cologuard 1994 Sigmoidoscopy [...] D LEVEL ONCE IN A LIFETIME-USE SMARTSET# 67803 Completed 03/22/2015 Pneumococcal Vaccine: 65+ Years Completed [...] this encounter Medical Devices Implanted Type Area Photo Finisher Device Identifier Shelf Expiration Date Model / Serial / Lot Chip Cancellous 5cc [id number] - [id number] Implanted:Qty: 1 on 08/08/2013 [place] [facility] [place] Left: Foot MUSCULOSKELETAL TRANSPLANT FND 07/24/2015 [id number] / [id number] / Screw Nonlock 3.5 X 24 - [id number] Implanted:Qty: 1 on 08/08/2013 [place] [facility] [place]: Foot ORTHOHELIX SURGICAL DESIGNS GETTERING FILAMENT MACHINE OPERATOR-011-3 5-24 / / Screw Locking 3.5 X 16 - [id number] Implanted:Qty: 2 on 08/08/2013 [place] [facility] [place]: Foot ORTHOHELIX SURGICAL DESIGNS GETTERING FILAMENT MACHINE OPERATOR-021-3 5-16 / / Plate 6 Hole Beta Mxl-0026 - [id number] Implanted:Qty: 1 on 08/08/2013 [place] [facility] [place]: Foot ORTHOHELIX SURGICAL DESIGNS MXL-0026 / / Screw Locking 3.5 X 20 - [id number] Implanted:Qty: 1 on 08/08/2013 [place] [facility] [place]: Foot ORTHOHELIX SURGICAL DESIGNS GETTERING FILAMENT MACHINE OPERATOR-021-3 5-20 / / Screw Nonlock 3.5 X 16 - [id number] Implanted:Qty: 1 on 08/08/2013 [place] [facility] [place]: Foot ORTHOHELIX SURGICAL DESIGNS GETTERING FILAMENT MACHINE OPERATOR-011-3 5-16 / / Screw Nonlock 3.5 X 18 - [id number] Implanted:Qty: 1 on 08/08/2013 [place] [facility] [place]: Foot ORTHOHELIX SURGICAL DESIGNS GETTERING FILAMENT MACHINE OPERATOR-011-3 5-18 / / Screw Nonlock 3.5 X 14 - [id number] Implanted:Qty: 1 on 08/08/2013 [place] [facility] [place]: Foot ORTHOHELIX SURGICAL DESIGNS GETTERING FILAMENT MACHINE OPERATOR-011-3 5-14 / / 4.0 X 3.0 Short Max Torque Implanted:Qty: 1 on 08/08/2013 [place] [facility] [place]: Foot ORTHOHELIX SURGICAL DESIGNS MSD-010-4 0-030S / / 4.0 X 32.5 Short Max Torque Implanted:Qty: 1 on 08/08/2013 [place] [facility] [place] Left: Foot MSD-010-4 0-325S / / 4.0 X 28 Short Max Torque Implanted:Qty: 1 on 08/08/2013 [place] [facility] [place]: Foot ORTHOHELIX SURGICAL DESIGNS MSD-010-4 0-028S / / 4.0 X 22 Short Max Torque Implanted:Qty: 1 on 08/08/2013 [place] [facility] [place] Left: Foot ORTHOHELIX SURGICAL DESIGNS MSD-010-4 0-022S / / [place] Gold 4.0 - [id number] Implanted:Qty: 1 on 08/08/2013 [place] [facility] [place] Left: Foot ORTHOHELIX SURGICAL DESIGNS CSS-500-4 0A / / Plate Lps Alpha 2 Slot - [id number] Implanted:Qty: 1 on 08/08/2013 [place] [facility] [place] Left: Foot ORTHOHELIX SURGICAL DESIGNS MXL-002-2 A / / Screw Variable 3.5 X 12mm - [id number] Implanted:Qty: 1 on 08/08/2013 [place] [facility] [place]: Foot ORTHOHELIX SURGICAL DESIGNS RAKESH-031-3 5-12 / / Screw Variable 3.5 X 18mm - [id number] Implanted:Qty: 1 on 08/08/2013 [place] [facility] [place]: Foot ORTHOHELIX SURGICAL [...] Power of Attor elizabeth? No Care Teams Sort Manager Relationship Specialty Start Date End Date Ronald Cortes MD [address] [place] [address] PCP - General 06/10/02 documented as of this encounter
--- OUTSIDE RECORDS SUMMARY | 2024-03-18 05:28 | External Medical Summary | Summary of Care ---
Author Name Unknown Organization [facility] Address [address] [place] [address] Phone [phone] Care Team Providers Care Child Attendant Name Role Phone Ronald Cortes MD Primary Care Provider [phone] Reason for Visit * Reason Onset Date Comments Hospital Follow-Up 03/08/2024 Encounter Details Date Type Department Care Team (Late st Contact Info) Description 03/08/2024 Telephone [facility] [address] [place] [address] Paty Liu MD [address] [place] [address] Hospital Follow-Up Allergies Active Allergy Reactions Criticality Noted Date Comments Bee Venom Anaphylaxis High 02/27/2006 Doxycycline Low 08/04/2023 Intolerant, GI upset documented as of this encounter (statuses as of 03/08/2024) Medications CALCIUM + D 600-200 MG-UNIT PO TABS 1 BID 0 03/13/20 06 Active MULTIVITAMINS PO TABS daily 0 03/13/20 06 Active ACETAMINOPHEN 325 MG PO TABSIndications:IN TERFACED RESULT,Pneumothora x 2 Tab Oral Every 6 hours as needed for fever, pain, headache 1 Tab 0 07/28/19 14 Active [place]-3 Fatty Acids (FISH OIL) 1000 MG Capsule [...] BEDTIME 180 Tablet 3 11/28/19 24 Active Carvedilol 12.5 MG Oral Tablet (Coreg)Indications [...] Inhalation Aerosol Powder Breath Activated 12/14/19 Active Cephalexin 250 MG Oral Capsule (Keflex) Take 2 Capsules by mouth in the morning and 2 Capsules before bedtime. 02/02/20 24 Active Pantoprazole Sodium 40 MG Oral Tablet Delayed Release (Protonix)Indicati ons:Gastroesophage al reflux disease, unspecified whether esophagitis present Take 1 Tablet by mouth in the morning. 90 Tablet 3 02/03/20 24 Active Amiodarone HCl 200 MG Oral Tablet (Cordarone) Take 1 Tablet by mouth in the morning. Active Albuterol Sulfate HFA 108 (90 Base) MCG/ACT Inhalation Aerosol Solution Inhale 2 Puffs by mouth every 4 hours as needed for Wheezing or Cough. 54 g 3 02/08/20 24 Active Tiotropium [place] Monohydrate 18 MCG Inhalation Capsule (Spiriva HandiHaler) Inhale 1 Capsule by mouth in the morning. INHALE THE CONTENTS OF 1 CAPSULE EVERY DAY VIA HANDIHALER (DO NOT SWALLOW). 90 Capsule 3 02/08/20 24 Active Hospital, Clinic, or Other Facility Administered [...] as of this encounter (statuses as of 03/08/2024) Active Problems Problem Noted Date Diagnosed Date History of atrial fibrillation 02/08/2024 Gait difficulty 02/08/2024 Chronic respiratory failure with hypoxia 024 COPD, group B, by GOLD 2017 classification 09/20 Overview: Per COPD GOLD Classification Acquired hypothyroidism 07/19/2023 History of coronary angioplasty with insertion o f stent 07/01/2023 Coronary artery disease invo lving [place] coronary artery of [place] heart without angina pectoris 07/01/2023 Hematuria of undiagnosed cause 07/12/2019 Tobacco use disorder 12/21/2017 Chronic nonspecific lung disease 06/16/2017 HTN, goal below 150/90 11/16/2015 Osteoporosis 12/28/2014 Dyslipidemia, goal LDL below 100 06/10/2010 Generalized osteoarthritis of multiple sites 02/2011 GENERALIZED ANXIETY DIS 12/05/2004 COMMON MIGRAINE WITHOUT MENTION OF INTRACTABLE M IGRAINE documented as of this encounter (statuses as of 03/08/2024) Resolved Problems Problem Noted Date Diagnosed Date [...] as of this encounter (statuses as of 03/08/2024) Immunizations Name Administration Dates Next Due COVID-19, [...] file Not on file Not on file 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 Dr. Liu is recommending outpatient follow-up with cardiology. Please contact Kae to schedule. Thank you. documented in this encounter Plan of Treatment Upcoming Encounters Date Type Department Care Team (Late st Contact Info) Description 03/09/2024 6:20 PM EST [facility] [place] [phone] Ronald Cortes MD [address] [address] 03/16/2024 11:00 AM EST Office Visit [facility] [place] [address] [phone] Ronald Cortes MD [address] [address] 04/28/2024 1:00 PM EST Office Visit [facility] [address] [place] [address] Hitesh Gordillo, DO [address] [place] [address] 05/23/2024 2:00 PM EST Office Visit Pulmonary Medicine, [facility] [address] [place] [address] Marbin Serrano MD [address] [place] [address] 06/07/2024 8:30 AM EST Office Visit Cardiology, [facility] [address] [facility] [place] [address] Pepe Lennon, DO [address] [place] [address] 07/13/2024 3:30 PM EDT Imaging Radiology, [place] [id number] [place] [address] Scheduled Procedures Name Priority Associated Diagnoses Date/Ti me COLONOSCOPY FLEXIBLE PROXIMA L DIAGNOSTIC Recall Encounter for screening colonoscopy Health Maintenance Due Date Last Done Comments DISCUSS TOBACCO CESSATION (REFER TO SMARTSET #9597) 1950 Alpha-1 Antitrypsin 1967 Cologuard 1994 Sigmoidoscopy [...] D LEVEL ONCE IN A LIFETIME-USE SMARTSET# 35302 Completed 03/22/2015 Pneumococcal Vaccine: 65+ Years Completed [...] this encounter Medical Devices Implanted Type Area Recreational Director Device Identifier Shelf Expiration Date Model / Serial / Lot Chip Cancellous 5cc [id number] - [id number] Implanted:Qty: 1 on 08/08/[address] [facility] [place] - Human Left: Foot MUSCULOSKELETAL TRANSPLANT FND 07/24/2015 [id number] / [id number] / Screw Nonlock 3.5 X 24 - [id number] Implanted:Qty: 1 on 08/08/[address] [facility] [place]: Foot ORTHOHELIX [employer] EMERGENCY MANAGEMENT SYSTEM DIRECTOR-011-3 5-24 / / Screw Locking 3.5 X 16 - [id number] Implanted:Qty: 2 on 08/08/[address] [facility] [place] Foot [employer]OHEL[employer] EMERGENCY MANAGEMENT SYSTEM DIRECTOR-021-3 5-16 / / Plate 6 Hole Beta Mxl-0026 - [id number] Implanted:Qty: 1 on 08/08/[address] [facility] [place]: Foot [employer] MXL-0026 / / Screw Locking 3.5 X 20 - [id number] Implanted:Qty: 1 on 08/08/[address] [facility] [place]: Foot [employer]OHEL[employer] EMERGENCY MANAGEMENT SYSTEM DIRECTOR-021-3 5-20 / / Screw Nonlock 3.5 X 16 - [id number] Implanted:Qty: 1 on 08/08/[address] [facility] [place]: Foot [employer]OHEL[employer] EMERGENCY MANAGEMENT SYSTEM DIRECTOR-011-3 5-16 / / Screw Nonlock 3.5 X 18 - [id number] Implanted:Qty: 1 on 08/08/[address] [facility] [place]: Foot [employer]OHEL[employer] EMERGENCY MANAGEMENT SYSTEM DIRECTOR-011-3 5-18 / / Screw Nonlock 3.5 X 14 - [id number] Implanted:Qty: 1 on 08/08/[address] [facility] [place]: Foot [employer]OHEL[employer] EMERGENCY MANAGEMENT SYSTEM DIRECTOR-011-3 5-14 / / 4.0 X 3.0 [...] / / [place] Gold 4.0 - [id number] Implanted:Qty: 1 on 08/08/[address] [facility] [place]: Foot [employer] CSS-500-4 0A / / Plate Lps Alpha 2 Slot - [id number] Implanted:Qty: 1 on 08/08/[address] [facility] [place]: Foot [employer] MXL-002-2 A / / Screw Variable 3.5 X 12mm - [id number] Implanted:Qty: 1 on 08/08/[address] [facility] [place]: Foot [employer]THOHEL[employer] RAKESH-031-3 5-12 / / Screw Variable 3.5 X 18mm - [id number] Implanted:Qty: 1 on 08/08/[address] [...] Power of Attor elizabeth? No Care Teams Child Attendant Relationship Specialty Start Date End Date Ronald Cortes MD [address] [place] [address] PCP - General 06/10/02 documented as of this encounter
[2024-03-21] MEDS ORDERED: ALENDRONATE SODIUM 70 MG TAB PO SCH (07:30)
== END 2024-03-16 20:50 | disposition short-term general hospital (02) | DRG 542 ==
LOC: ED 17:45 → EDINP 22:24 → 2W 03-16 14:41
DX: Z79.01 Long term (current) use of anticoagulants; J44.9 Chronic obstructive pulmonary disease, unspecified; S80.02XA Contusion of left knee, initial encounter; I25.10 Atherosclerotic heart disease of native coronary artery without angina pectoris; E78.5 Hyperlipidemia, unspecified; J96.10 Chronic respiratory failure, unspecified whether with hypoxia or hypercapnia; Z79.899 Other long term (current) drug therapy; Z79.890 Hormone replacement therapy; I25.2 Old myocardial infarction; D64.9 Anemia, unspecified; Z79.02 Long term (current) use of antithrombotics/antiplatelets; Z99.81 Dependence on supplemental oxygen; S00.83XA Contusion of other part of head, initial encounter; I21.A1 Myocardial infarction type 2; F17.210 Nicotine dependence, cigarettes, uncomplicated; I48.0 Paroxysmal atrial fibrillation; E03.9 Hypothyroidism, unspecified; F39 Unspecified mood [affective] disorder; M80.022A Age-related osteoporosis with current pathological fracture, left humerus, initial encounter for fracture; Z88.1 Allergy status to other antibiotic agents; I95.9 Hypotension, unspecified; W18.39XA Other fall on same level, initial encounter; I10 Essential (primary) hypertension; I16.0 Hypertensive urgency

== ENCOUNTER 2024-03-23 06:08 | Inpatient (IN) ==
[2024-03-24] MEDS ORDERED: POLYETHYLENE (MIRALAX) 17 GM PACK PO PRN (12:07)
[2024-03-24] MEDS ORDERED: ONDANSETRON INJ 2 MG/ML 2 ML VIAL IV PRN (12:07)
[2024-03-24] MEDS ORDERED: oxyCODONE/ACETAMINOPHEN 5mg/325mg TAB PO PRN (12:13)
[2024-03-24] MEDS ORDERED: LEVALBUTEROL HCL 0.63 MG/3 ML NEB NEB PRN (12:16)
--- NOTE | 2024-03-24 12:51 | History & Physical Report ---
Date of Service March 24, 2024 Assessment & Plan (1) Fall: (2) Left humeral fracture: (3) PAF (paroxysmal atrial fibrillation): (4) HTN (hypertension): (5) Hypomagnesemia: (6) Chronic anemia: Plan Kae Johnston is a 73-year-old female with past medical history significant for HTN, HLD, chronic respiratory failure with hypoxia [on 3L O2 via NC at baseline], chronic nonspecific lung disease/COPD, dyslipidemia, acquired hypothyroidism, HTN, CAD s/p stenting, chronic anemia [baseline Hgb 8-11], history of CA, hematuria, generalized osteoarthritis, osteoporosis, mood disorder/anxiety, tobacco use disorder, paroxysmal atrial fibrillation [on Eliquis] and gait difficulty who initially presented to the [facility] ED on 03/15/2024 with complaints of significant left elbow pain, left eye bruising/facial tenderness and left knee pain after sustaining a fall. Radiographic workup at that time was significant for a fracture of the distal end/supracondylar part of left humerus with overlapping of the fracture fragments and lateral displacement of the proximal fracture fragment with mild soft tissue swelling. Patient was seen and evaluated by orthopedic surgery here at [facility] on 03/16/2024 whom recommended transfer to [facility] ([facility]) for further evaluation given the complexity of her fracture. She was subsequently transferred to [facility] on 03/17/2024. Patient underwent left distal humerus supracondylar fracture open reduction internal fixation on 03/18/2024. Patient has been transferred back here to [facility] on 03/24/2024 under our service from [facility] following successful surgical repair of her left humerus fracture. Recent Fall, L Humeral Fracture S/P Surgical Repair: History as per above. Activity guidelines per ortho at [facility] --> LUE is coffee cup nonweightbearing, do not lift anything greater than a coffee cup. No pushing or pulling with the left arm. "Sling for comfort when out of bed. Left shoulder, finger range of motion as tolerated. Elevate left hand above elbow, and elbow above heart while in bed to decrease swelling." Keep the rigid cast/splint clean, dry and intact until seen in ortho clinic for f/u appt --> 04/01/2024 @ 10:45AM w/ Nelly Leach PA-C [[facility] in [place], [place]] Ortho recommends vitamin D3 50mcg/daily for a total of 8 weeks postop. May wrap the rigid cast/splint in a plastic bag to shower. PT/OT evals pending. PRN pain control, bowel regimen. Fall precautions. Paroxysmal AFib: Chronic, stable. Eliquis restarted at [facility] - will continue. Continue Coreg. HTN: Continue home BP medications - including Coreg, losartan, Lasix. Continue to monitor BP closely. Hypomagnesemia: Mag 1.4 on admission today, will replete w/ IV Mag x 3 bags. Rec heck electrolytes in AM and manage PRN. Chronic Anemia: Hgb 8 on admission today, baseline Hgb ~8-11 per chart review. Of note patient is s/p 1 unit of PRBCs on 03/19/2024 as her Hgb had dropped down to 6.5 per the discharge summary from [facility]. Continue to closely monitor Hgb level. Will need to transfuse PRBCs if Hgb<7. Other Chronic Medical Conditions: * COPD - Continue home inhalers. CAD/HLD - Continue statin, Plavix. * Hypothyroidism - Continue levothyroxine. Mood Disorder/Anxiety - Continue citalopram. DVT Prophylaxis: On Eliquis as per above - continue. Code Status: FULL CODE PCP: Ronald Cortes MD Disposition: Admitted in Med/Telemetry - PT/OT evaluations pending in anticipation for likely rehabilitation placement. Patient seen in collaboration with Dr. Turcios. Please see addendum. I spent a total of 55 minutes coordinating, documenting, and providing care for this patient excluding time spent in the performance of separately billed services. This included personally reviewing all current laboratories and imaging studies, medical reconciliation, outpatient chart review and discussion with specialists. This chart was completed in part utilizing Speech Voice Recognition Software. Grammatical errors, random word insertions, pronoun errors, and incomplete sentences are an occasional consequence of this system due to software limitations, ambient noise, and hardware issues. Any formal questions or concerns about the content, text, or information contained within the body of this dictation should be directly addressed to the provider for clarification. Admission and Anticipated Discharge Date Admission Date: March 24, 2024 History of Present Illness Chief Complaint: Transfer from [facility] - Direct Admission Primary Care Provider: Ronald Cortes MD Kae Johnston is a 73-year-old female with past medical history significant for HTN, HLD, chronic respiratory failure with hypoxia [on 3L O2 via NC at baseline], chronic nonspecific lung disease/COPD, dyslipidemia, acquired hypothyroidism, HTN, CAD s/p stenting, chronic anemia [baseline Hgb 8-11], history of CA, hematuria, generalized osteoarthritis, osteoporosis, mood disorder/anxiety, tobacco use disorder, paroxysmal atrial fibrillation [on Eliquis] and gait difficulty who initially presented to the ED on 03/15/2024 with complaints of significant left elbow pain, left eye bruising/facial tenderness and left knee pain after sustaining a recent fall which occurred a few days prior to her arrival. Radiographic workup at that time was significant for a fracture of the distal end/supracondylar part of left humerus with overlapping of the fracture fragments and lateral displacement of the proximal fracture fragment with mild soft tissue swelling. Face CT from her initial workup revealed a soft tissue hematoma centered in the frontal region with no evidence of fractures. Head CT at that time once again noted the soft tissue hematoma but thankfully did not show any evidence of intracranial hemorrhage. 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 Patient was also found to be septic on admission at that time secondary to leukocytosis, tachycardia and suspected UTI. Procalcitonin was also elevated at 1.15; she was empirically started on IV Rocephin she has since completed the appropriate treatment course for her UTI. Urine culture from 03/15/2024 grew Lena glabrata. Blood cultures from 03/16/2024 were negative. Patient did have an elevated troponin of 192.6 during her initial workup on 03/15/2024. There was no evidence of an acute STEMI on the presenting EKG however there were some T wave inversions in the anterolateral plus inferior leads on th at likely represented an NSTEMI type II. Repeat troponin had down trended to 178.7. Previous echocardiogram from 03/03/2024 showed an EF of 55-60%, normal LV wall motion, normal LV systolic function, mild aortic valve sclerosis and mild tricuspid regurgitation. Patient was seen and evaluated by orthopedic surgery here at [facility] on 03/16/2024 whom recommended transfer to [facility] ([facility]) for further evaluation given the complexity of her fracture. She was subsequently transferred to [facility] on 03/17/2024. Patient underwent left distal humerus supracondylar fracture open reduction internal fixation on 03/18/2024 following both cardiology and pulmonology preoperative clearance. Patient has been transferred back here to [facility] on 03/24/2024 under our service from [facility] following successful surgical repair of her left humerus fracture. She will need to be evaluated by both PT and OT in anticipation for rehabilitation placement. Of note patient is s/p 1 unit of PRBCs on 03/19/2024 as her hemoglobin had dropped down to 6.5 per the [facility] discharge summary. Patient seen and examined at bedside with Dr. Turcios in room 262-2 this afternoon. Patient with 7/10 left elbow pain during our conversation but she was eating lunch without any issue. Reports numbness/tingling in the lateral aspect of her fourth phalanx. She endorses numbness in her fifth phalanx. Patient mentions that they "had to cut a tendon during surgery" therefore she was instructed that these sensations are to be expected postoperatively due to the extensive nature of her operation. She has chronic intermittent chest pain associated with shortness of breath which is unchanged. She wears 3L via NC at baseline. Allergies Allergy/AdvReac Type Severity Reaction Status Date / Time bee venom protein (honey bee) Allergy Severe SWELLING Verified 01/30/24 16:12 SEVERE doxycycline Allergy Intermediate Vomiting Verified 01/30/24 16:12 Home Medications Medication Instructions Recorded Confirmed Type multivitamin 1 tab PO DAILY #0 tabs 02/07/14 03/24/24 History omega 7-vqy-rvr-fish oil 1,000 mg 1 cap PO DAILY #0 caps 04/22/17 03/24/24 History (120 mg-180 mg) capsule (Fish Oil) magnesium oxide 400 mg PO BID #0 tabs 06/01/17 03/24/24 History apixaban 5 mg tablet (Eliquis) 5 mg PO BID 12/06/23 03/24/24 History atorvastatin 40 mg tablet 40 mg PO QAM 12/06/23 03/24/24 History citalopram 40 mg tablet 40 mg PO QAM 12/06/23 03/24/24 History clopidogrel 75 mg tablet 75 mg PO QAM 12/06/23 03/24/24 History fluticasone propionate 115 2 puff inhalation AMHS 12/06/23 03/24/24 History mcg-salmeterol 21 mcg/actuation HFA inhaler gabapentin 300 mg capsule 300 mg PO TID 12/06/23 03/24/24 History levothyroxine 25 mcg tablet 25 mcg PO DAILYBB 12/06/23 03/24/24 History oxybutynin chloride 5 mg 5 mg PO QAM 12/06/23 03/24/24 History tablet,extended release 24 hr potassium chloride 10 mEq 10 meq PO AMHS 12/06/23 03/24/24 History tablet,extended release(part/cryst) (Klor-Con M) nitroglycerin 0.4 mg sublingual 0.4 mg sublingual Q5M PRN chest 12/09/23 03/24/24 Rx tablet (Nitrostat) pain #30 tabs umeclidinium 62.5 mcg/actuation 1 inh inhalation DAILY #30 ea 12/14/23 03/24/24 Rx blister powder for inhalation (Incruse Ellipta) ipratropium 0.5 mg-albuterol 3 mg 3 ml NEB QIDR PRN shortness of 12/28/23 03/24/24 Rx (2.5 mg base)/3 mL nebulization breath #90 mL soln albuterol sulfate 90 mcg/actuation 2 puff inhalation Q4 PRN WHEEZING 01/30/24 03/24/24 History aerosol inhaler OR COUGH pantoprazole 40 mg tablet,delayed 40 mg PO QAM 01/30/24 03/24/24 History release (Protonix) tiotropium bromide 18 mcg capsule 1 cap inhalation QAM 03/02/24 03/24/24 History with inhalation device carvedilol 3.125 mg tablet 3.125 mg PO BID 30 days #60 tabs 03/08/24 03/24/24 Rx losartan 25 mg tablet 25 mg PO QAM 30 days #30 tabs 03/08/24 03/24/24 Rx alendronate 70 mg tablet 70 mg PO WK 03/15/24 03/24/24 History cholecalciferol (vitamin D3) 50 50 mcg PO DAILY 03/24/24 03/24/24 History mcg (2,000 unit) tablet (Vitamin D3) furosemide 40 mg tablet 20 mg PO QAM 03/24/24 03/24/24 History Past Med/Surg History Problem List Chronic anemia Hypomagnesemia Left humeral fracture Contusion of left knee Asymptomatic hypertensive urgency Acute pain of left knee (Acute) Anticoagulant long-term use (Acute) Contusion of face (Acute) Fracture of distal end of left humerus (Acute) Fall (Acute) Acute metabolic encephalopathy Myocardial infarction due to demand ischemia Suspected urinary tract infection Severe sepsis with acute organ dysfunction Sepsis Epigastric abdominal tenderness Intravascular volume depletion Non-ST elevation CA (NSTEMI) (Acute) Acute dyspnea (Acute) Generalized weakness (Acute) Acute on chronic anemia E. coli UTI Acute dehydration (Acute) COPD (chronic obstructive pulmonary disease) (Acute) GUTIERREZ (acute kidney injury) (Acute) COPD (chronic obstructive pulmonary disease) (Acute) Acute and chronic postprocedural respiratory failure (Acute) COPD with exacerbation Elevated troponin level (Acute) Acute on chronic respiratory failure with hypoxia and hypercapnia (Acute) COPD (chronic obstructive pulmonary disease) (Acute) Dyslipidemia, goal LDL below 70 PAF (paroxysmal atrial fibrillation) Uncontrolled hypertension ASCVD (arteriosclerotic cardiovascular disease) Chest pain at rest Thickened endometrium Elevated brain natriuretic peptide (BNP) level (Acute) Nausea & vomiting (Acute) Chest pain (Acute) Asthma exacerbation (Acute) Gastroenteritis (Acute) Fall in home (Acute) CHI (closed head injury) (Acute) Scalp laceration (Acute) Facial laceration (Acute) Heart disease HTN (hypertension) Kidney disease Bronchitis Fall in home (Acute) Hyponatremia (Acute) Hypokalemia (Acute) Abdominal pain Diarrhea Vomiting Medical History Absent pedal pulses Macular degeneration Asthma Tobacco use disorder Coronary atherosclerosis of barrow coronary vessel Benign hypertension Atrial fibrillation Diabetes Surgical History H/O heart surgery History of cholecystectomy Hx of tubal ligation Social History Smoking Status: Never smoker Tobacco Type: Cigarettes Cigarettes Per Day: 5; Second Hand Exposure: No; Do You Dip or Chew Tobacco: No; Hx Alcohol Use: No Hx Substance Use: No Preferred Language: Danish Communication Ability: Effective Secured Entrance Monitor Required: No Beliefs That Will Affect Care: None Current Living Situation: Family Current Living Situation Comment: with daughter Feels Safe at Home: Yes Safety Concerns: Feels Safe At This Time Assistive Devices: Oxygen - Continuous, Walker and Wheelchair Review of Systems Review of Systems: At least ten systems reviewed and negative, except as noted in the HPI. Physical Exam Physical Exam: Please refer to Dr. Turcios's addendum for physical examination findings. Results & Data Results & Data Laboratory Results Short CBC 03/24/24 Range/Units 12:35 WBC 13.38 H (4.8-10.8) K/ul Hgb 8.0 L (12.0-16.0) g/dl Hct 25.1 L (37.0-47.0) % Plt Count 429 H (130-400) K/uL BMP 03/24/24 12:35 Sodium 132 L Potassium 4.1 Chloride 90 L Carbon Dioxide 36 H BUN 11 Creatinine 1.00 Glucose 96 Calcium 9.0 Code Status & VTE Plan Code Status FULL CODE VTE Prophylaxis Plan VTE Prophylaxis will be ordered: Yes Supervising Physician Co-Signing Physician Notes Patient is a 73-year-old female with history of coronary artery disease, paroxysmal A-fib, hypertension, hyperlipidemia, hypothyroidism, chronic respiratory failure and hypoxia 3 L at baseline, COPD and other medical problems who recently had a hip fracture of the distal left humerus with overlapping of the right segments and lateral displacement of the proximal fracture fragment secondary to a fall was discharged from [facility] to [place] for a complex left shoulder surgery. Patient was sent back to [facility] from [place] for possible placement needs. Patient required 1 unit PRBCs postsurgery. Currently she states having left shoulder pain 7/10 intensity, with associated numbness tingling of fourth and fifth fingers. She has chronic intermittent chest pain associated with dyspnea which is unchanged. Currently offers no other complaints. Please review HPI for complete details of presentation. I person inoy reviewed blood work. WBC 13.3, hemoglobin 8.0, hematocrit 25.1, platelet 429, sodium 132, chloride 90, bicarbonate 36, magnesium 1.4. Physical Exam: Vitals signs as noted above General Appearance: Elderly, frail, no apparent distress Head: normocephalic, +traumatic, multiple ecchymosis, ? left frontal hematoma Eyes: normal inspection, EOMI Neck: supple, Trachea midline Respiratory/Chest: Normal breath sounds, CTA, No accessory muscle use Cardiovascular: S1, S2, No murmur Abdomen/GI:Soft, Non tender, Bowel sounds present Extremities/Musculoskeletal:normal inspection, 1+ edema, LUE surgical dressing, sling Neurologic/Psych:AAOX3, grossly no focal neurological deficits Skin: normal color, warm Fracture of distal end of left humerus S/P Surgery Secondary to fall Postop anemia S/P 1 unit PRBCs Hypomagnesemia Leukocytosis likely reactive Mild hyponatremia Chronic respiratory failure with hypoxia, COPD Paroxysmal A-fib--resume Eliquis, monitor Hb Pain control, fall precautions PT OT as able Replete electrolytes as needed Monitor sodium, magnesium levels May need placement I personally interviewed and examined at bedside. Patient's care is coordinated with Ce Castellanos PA-C. I have reviewed the advanced practitioner's documentation, and I agree with plan of care. Please refer to the documentation above for details of patient's presentation and for discussion of other issues. I spent a total [id number] coordinating, documenting, and providing care for this patient excluding time spent in the performance of separately billed services. (1) Fall Encounter type: initial encounter Qualified Code(s): W19.XXXA - Unspecified fall, initial encounter (2) Left humeral fracture Encounter type: initial encounter Fracture alignment: displaced Fracture morphology: other fracture Fracture type: closed Humerus Location: distal Qualified Code(s): S42.492A - Other displaced fracture of lower end of left humerus, initial encounter for closed fracture (4) HTN (hypertension) Hypertension type: primary hypertension Qualified Code(s): I10 - Essential (primary) hypertension
[2024-03-24 13:34] LABS: Hematocrit (blood only) 25.1 % (37.0-47.0); Mean Corpuscular Hemoglobin 30.4 pg (25.0-34.0); Mean Corpuscular Hgb Conc 31.9 g/dL (32.0-36.0); Mean Corpuscular Volume 95.4 fL (80.0-100.0); Mean Platelet Volume 8.5 fL (9.4-12.4); Platelet Count 429 K/uL (130-400); RDW Standard Deviation 49.7 fL (36.4-46.3); Red Blood Count 2.63 M/uL (4.20-5.40); White Blood Count 13.38 K/ul (4.8-10.8)
[2024-03-24 13:36] LABS: Anion Gap 6 (3-11); Carbon Dioxide 36 mmol/L (21-32); Chloride 90 mmol/L (98-107); Magnesium 1.4 mg/dl (1.7-2.4); Potassium 4.1 mmol/L (3.5-5.1); Sodium 132 mmol/L (136-145)
[2024-03-24 13:42] LABS: Blood Urea Nitrogen 11 mg/dl (6-23); Glucose 96 mg/dl (70-99(Fasting))
[2024-03-24] MEDS ORDERED: ALBUT/IPRATROP 3MG/0.5MG NEB 3 ML VIAL NEB PRN (13:52)
[2024-03-24] MEDS: Patient's HEIGHT &/or WEIGHT Needed STA (15:09)
[2024-03-24] MEDS: GABAPENTIN 300 MG CAP PO SCH (15:13)
[2024-03-24] MEDS: MAGNESIUM SULFATE / D5W 1 GM/100 ML BAG IV SCH (15:21)
[2024-03-24] MEDS: oxyCODONE HCL IR 5 MG TAB (IMMEDIATE RELEASE) PO PRN ×2 (16:12→22:07)
[2024-03-24] MEDS: MAGNESIUM OXIDE 400 MG TAB PO SCH (20:40)
[2024-03-24] MEDS: APIXABAN 5 MG TABLET PO SCH (20:40)
[2024-03-24] MEDS: carvediloL 3.125 MG TAB PO SCH (20:40)
[2024-03-24] MEDS: DOCUSATE SODIUM 100 MG CAP PO SCH (20:43)
[2024-03-24] MEDS: POTASSIUM CHLORIDE 10 MEQ TABCR PO SCH (20:43)
[2024-03-25] MEDS: METOPROLOL TARTRATE 1 MG/ML VIAL IV STA (04:20)
[2024-03-25] MEDS: LEVOTHYROXINE SODIUM 25 MCG TABLET PO SCH (06:02)
[2024-03-25 06:35] LABS: Hematocrit (blood only) 23.7 % (37.0-47.0); Hemoglobin 7.5 g/dl (12.0-16.0); Mean Corpuscular Hemoglobin 30.5 pg (25.0-34.0); Mean Corpuscular Hgb Conc 31.6 g/dL (32.0-36.0); Mean Corpuscular Volume 96.3 fL (80.0-100.0); Mean Platelet Volume 8.3 fL (9.4-12.4); Platelet Count 419 K/uL (130-400); RDW Coefficient of Variation 15.5 % (11.5-14.5); RDW Standard Deviation 50.9 fL (36.4-46.3); Red Blood Count 2.46 M/uL (4.20-5.40); White Blood Count 11.75 K/ul (4.8-10.8)
[2024-03-25 06:55] LABS: BUN Creatinine Ratio 11.3 (10-20); Calcium 8.5 mg/dl (8.6-10.3); Creatinine Clr Calc Pharmacy 46.6 ml/min; Magnesium 2.1 mg/dl (1.7-2.4); Potassium 3.8 mmol/L (3.5-5.1)
[2024-03-25] MEDS: CLOPIDOGREL BISULFATE 75 MG TAB PO SCH (08:03)
[2024-03-25] MEDS: FUROSEMIDE 20 MG TAB PO SCH (08:03)
[2024-03-25] MEDS: CALCIUM 600MG + VIT D 400 IU TAB PO SCH (08:03)
[2024-03-25] MEDS: CITALOPRAM 40 MG TAB PO SCH (08:03)
[2024-03-25] MEDS: ATORVASTATIN 40 MG TAB PO SCH (08:03)
[2024-03-25] MEDS: OXYBUTYNIN CHLORIDE XL 5 MG TABCR PO SCH (08:04)
[2024-03-25] MEDS: MULTIVITAMIN TAB PO SCH (08:04)
[2024-03-25] MEDS: LOSARTAN POTASSIUM 25 MG TAB PO SCH (08:04)
[2024-03-25] MEDS: PANTOprazole 40 MG TAB PO SCH (08:04)
[2024-03-25] MEDS: CHOLECALCIFEROL 25 MCG (1000 UNITS) TAB PO SCH (08:05)
[2024-03-25] MEDS: UMECLIDINIUM BROMIDE 62.5MCG/BLISTER 7 PUFFS/INHALER INH SCH (08:06)
[2024-03-25] MEDS: FLUTICASONE/VILANTEROL 100/25MCG 14 PUFFS/INHALER INH SCH (08:06)
[2024-03-25] MEDS ORDERED: UMECLIDINIUM BROMIDE 62.5MCG/BLISTER 7 PUFFS/INHALER INH SCH (09:00)
--- NOTE | 2024-03-25 13:10 | Hospitalist Progress Note ---
Date of Service March 25, 2024 Assessment & Plan (1) Fracture of distal end of left humerus: (2) PAF (paroxysmal atrial fibrillation): (3) HTN (hypertension): (4) Hypomagnesemia: (5) Chronic anemia: (6) Contusion of face: (7) Anticoagulant long-term use: (8) Acute blood loss anemia: (9) Contusion of left knee: (10) COPD (chronic obstructive pulmonary disease): Plan Patient transferred here from [facility] after undergoing orthopedic repair of her humerus fracture. Patient has had some brief bursts with suspect atrial fibrillation here in the hospital, blood pressure is borderline low. Hold Lasix and Cozaar, monitor blood pressure Check EKG Continue therapies Continue current pain management Continue to pursue rehab placement. Monitor hemoglobin, has been trending downward suspect blood loss from contusions, hematomas, fracture. Admission and Anticipated Discharge Date Admission Date: March 24, 2024 Subjective Patient denies any chest pain, no shortness of breath, no lightheadedness. Pain is overall well-controlled Physical Exam Physical Exam: Constitutional: Alert, sitting in chair HEENT: Mucous membranes moist. Large contusion and hematoma left forehead Ecchymosis under both eyes and over her cheeks. Lungs: Clear to auscultation, decreased, no wheezes rales or rhonchi CV: S1-S2, irregular Abdomen: Soft, nontender, nondistended Extremities: No significant edema, left upper extremity in posterior splint cast Neuro: No focal deficits Psych: Cooperative, normal mood Results & Data Results & Data Vital Signs (Past 12 Hours) Vital Signs Temp Pulse Pulse Pulse Pulse Resp BP 03/25/24 11:53 36.6 C 96 H 12 03/25/24 07:40 36.8 C 105 H 16 03/25/24 07:29 104 H 03/25/24 06:02 108 H 126/79 03/25/24 04:20 125 H 134/79 03/25/24 03:21 110 H 03/25/24 03:10 37.1 C 49 L 20 BP BP Pulse Ox O2 Del Method O2 Flow Rate 03/25/24 11:53 94/61 L 98 Nasal Cannula 3 03/25/24 07:40 119/74 98 Nasal Cannula 3 03/25/24 07:29 03/25/24 06:02 03/25/24 04:20 03/25/24 03:21 03/25/24 03:10 139/87 97 Nasal Cannula 3 Diagnostic Findings Reviewed imaging, laboratory and diagnostic studies. Pertinent findings as be low. Hemoglobin 7.5 Platelets 419 Creatinine 0.8 (1) Fracture of distal end of left humerus Encounter type: initial encounter Fracture type: closed (3) HTN (hypertension) Hypertension type: primary hypertension Qualified Code(s): I10 - Essential (primary) hypertension (6) Contusion of face Encounter type: initial encounter Qualified Code(s): S00.83XA - Contusion of other part of head, initial encounter
--- OUTSIDE RECORDS SUMMARY | 2024-03-26 00:59 | External Medical Summary | Summary of Care ---
Author Name Unknown Organization [facility] Address [address] [facility] [place] [address] Phone [phone] Care Team Providers Care Press Loader Name Role Phone Ronald Cortes MD Primary Care Provider [phone] Encounter Details Date Type Department Care Team (Late st Contact Info) Description 03/15/2024 Orders Only [facility] [address] [facility] [place] [address] Ronald Cortes MD [address] [place] [address] Allergies Active Allergy Reactions Criticality Noted Date Comments Bee Venom Anaphylaxis High 02/27/2006 Doxycycline Low 08/04/2023 Intolerant, GI upset documented as of this encounter (statuses as of 03/23/2024) Medications CALCIUM + D 600-200 MG-UNIT PO TABS 1 BID 0 03/13/20 06 Active MULTIVITAMINS PO TABS daily 0 03/13/20 06 Active ACETAMINOPHEN 325 MG PO TABSIndications:IN TERFACED RESULT,Pneumothora x 2 Tab Oral Every 6 hours as needed for fever, pain, headache 1 Tab 0 07/28/19 14 Active [place]-3 Fatty Acids (FISH OIL) 1000 MG Capsule [...] Cough. 54 g 3 02/08/20 Active Tiotropium [place] Monohydrate 18 MCG Inhalation Capsule (Spiriva HandiHaler) [...] by mouth in the morning. 03/08/20 Active Hospital, Clinic, or Other Facility Administered [...] as of this encounter (statuses as of 03/23/2024) Active Problems Problem Noted Date Diagnosed Date History of atrial fibrillation 02/08/2024 Gait difficulty 02/08/2024 Chronic respiratory failure with hypoxia 024 COPD, group B, by GOLD 2017 classification 09/20 Overview: Per COPD GOLD Classification Acquired hypothyroidism 07/19/2023 History of coronary angioplasty with insertion o f stent 07/01/2023 Coronary artery disease invo lving [place] coronary artery of [place] heart without angina pectoris 07/01/2023 Hematuria of undiagnosed cause 07/12/2019 Tobacco use disorder 12/21/2017 Chronic nonspecific lung disease 06/16/2017 HTN, goal below 150/90 11/16/2015 Osteoporosis 12/28/2014 Dyslipidemia, goal LDL below 100 06/10/2010 Generalized osteoarthritis of multiple sites 02/2011 GENERALIZED ANXIETY DIS 12/05/2004 COMMON MIGRAINE WITHOUT MENTION OF INTRACTABLE M IGRAINE documented as of this encounter (statuses as of 03/23/2024) Resolved Problems Problem Noted Date Diagnosed Date [...] as of this encounter (statuses as of 03/23/2024) Immunizations Name Administration Dates Next Due COVID-19, [...] Date Smoking Tobacco: Every Day Cigarettes 0.6 70.6 Started: 09/02/1973 Smokeless Tobacco: Never Comments:04/14 ppd. 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 Not on file Not on file Not [...] Barry Doherty RN documented in this encounter Plan of Treatment Upcoming Encounters Date Type Department Care Team (Late st Contact Info) Description 04/28/2024 1:00 PM EST Office Visit [facility] 16 [place] [address] Hitesh Gordillo, 16 [place] [address] 05/23/2024 2:00 PM EST Office Visit Pulmonary Medicine, [facility] [address] [facility] [place] [address] Marbin Serrano MD [address] [place] [address] 06/07/2024 8:30 AM EST Office Visit Cardiology, [facility] [address] [place] [address] Pepe Lennon DO 132 [facility] [place] [address] 07/13/2024 3:30 PM EDT Imaging Radiology, [place] [id number] [facility] [place] [address] Scheduled Procedures Name Priority Associated Diagnoses Date/Ti [...] D LEVEL ONCE IN A LIFETIME-USE SMARTSET# 80841 Completed 03/22/2015 Pneumococcal Vaccine: 65+ Years Completed [...] this encounter Medical Devices Implanted Type Area Ship Construction Teacher Device Identifier Shelf Expiration Date Model / Serial / Lot Chip Cancellous [facility] [id number] - [id number] Implanted:Qty: 1 on 08/08/2013 [place] [facility] [place] - [place] Left: Foot MUSCULOSKELETAL TRANSPLANT FND 07/24/2015 [id number] / [id number] / Screw Nonlock 3.5 X 24 - [id number] Implanted:Qty: 1 on 08/08/2013 [place] [facility] Left: Foot ORTHOHELIX SURGICAL DESIGNS AMMONIA STILL OPERATOR-011-3 5-24 / / Screw Locking 3.5 X 16 - [id number] Implanted:Qty: 2 on 08/08/2013 at [place] [facility] Left: Foot ORTHOHELIX SURGICAL DESIGNS AMMONIA STILL OPERATOR-021-3 5-16 / / Plate 6 Hole Beta Mxl-0026 - [id number] Implanted:Qty: 1 on 08/08/2013 at [place] [facility] Left: Foot ORTHOHELIX SURGICAL DESIGNS MXL-0026 / / Screw Locking 3.5 X 20 - [id number] Implanted:Qty: 1 on 08/08/2013 at [place] [facility] Left: Foot ORTHOHELIX SURGICAL DESIGNS AMMONIA STILL OPERATOR-021-3 5-20 / / Screw Nonlock 3.5 X 16 - [id number] Implanted:Qty: 1 on 08/08/2013 at [place] [facility] Left: Foot ORTHOHELIX SURGICAL DESIGNS AMMONIA STILL OPERATOR-011-3 5-16 / / Screw Nonlock 3.5 X 18 - [id number] Implanted:Qty: 1 on 08/08/2013 at [place] [facility] Left: Foot ORTHOHELIX SURGICAL DESIGNS AMMONIA STILL OPERATOR-011-3 5-18 / / Screw Nonlock 3.5 X 14 - [id number] Implanted:Qty: 1 on 08/08/2013 at [place] [facility] Left: Foot ORTHOHELIX SURGICAL DESIGNS AMMONIA STILL OPERATOR-011-3 5-14 / / 4.0 X 3.0 Short Max Torque Implanted:Qty: 1 on 08/08/2013 at [place] [facility] Left: Foot ORTHOHELIX SURGICAL DESIGNS MSD-010-4 0-030S / / 4.0 X 32.5 Short Max Torque Implanted:Qty: 1 on 08/08/2013 at [place] [facility] Left: Foot MSD-010-4 0-325S / / 4.0 X 28 Short Max Torque Implanted:Qty: 1 on 08/08/2013 at [place] [facility] Left: Foot ORTHOHELIX SURGICAL DESIGNS MSD-010-4 0-028S / / 4.0 X 22 Short Max Torque Implanted:Qty: 1 on 08/08/2013 at [place] [facility] Left: Foot ORTHOHELIX SURGICAL DESIGNS MSD-010-4 0-022S / / [place] Gold 4.0 - [id number] Implanted:Qty: 1 on 08/08/2013 at [place] [facility] Left: Foot ORTHOHELIX SURGICAL DESIGNS CSS-500-4 0A / / Plate Lps Alpha 2 Slot - [id number] Implanted:Qty: 1 on 08/08/2013 at [place] [facility] Left: Foot ORTHOHELIX SURGICAL DESIGNS MXL-002-2 A / / Screw Variable 3.5 X 12mm - [id number] Implanted:Qty: 1 on 08/08/2013 at [place] [facility] Left: Foot ORTHOHELIX SURGICAL DESIGNS RAKESH-031-3 5-12 / / Screw Variable 3.5 X 18mm - [id number] Implanted:Qty: 1 on 08/08/2013 at [place] [facility] Left: Foot ORTHOHELIX SURGICAL DESIGNS RAKESH-031-3 5-18 / / documented as of this encounter Procedures Procedure Name Priority Date/Time Associated Diagnosis Comments RADIOLOGY EXAM - CT (IMAGES ONLY, NO REPORT) Routine 03/15/2024 7:05 PM EST documented in this encounter Results * RADIOLOGY EXAM - CT (IMAGES ONLY, NO REPORT) (03/15/2024 7:05 PM EST) 03/15/2024 6:42 PM EST Narrative Scheduling, Silent - 03/23/2024 10:30 PM EST This is an imaging study not interpreted or resulted by a [employer] or [employer] contracted radiologist. us Ronald Cortes MD RAD CT Final Result documented in this encounter Advance Directives * [...] Power of Attor elizabeth? No Care Teams Press Loader Relationship Specialty Start Date End Date Ronald Cortes MD [address] [place] [address] PCP - General 06/10/02 documented as of this encounter
--- OUTSIDE RECORDS SUMMARY | 2024-03-26 00:59 | External Medical Summary | Summary of Care ---
Author Name Unknown Organization [facility] Address [address] [facility] [place] [address] Phone [phone] Care Team Providers Care Adjunct Trainer Name Role Phone Ronald Cortes MD Primary Care Provider [phone] Encounter Details Date Type Department Care Team (Late st Contact Info) Description 03/15/2024 Orders Only [facility] [address] [facility] [place] [address] Ronald Cortes MD [address] [place] [address] Allergies Active Allergy Reactions Criticality Noted Date [...] headache 1 Tab 0 07/28/19 14 Active [place]-3 Fatty Acids (FISH OIL) 1000 MG Capsule [...] Cough. 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 Not on file Not on file Not [...] Description 04/28/2024 1:00 PM EST Office Visit [facility] [address] [place] [address] Hitesh Gordillo, 16 [place] [address] 05/23/2024 2:00 PM EST Office Visit Pulmonary Medicine, [facility] [address] [facility] [place] [address] Marbin Serrano MD [address] [place] [address] 06/07/2024 8:30 AM EST Office Visit Cardiology, [facility] [address] [place] [address] Pepe Lennon DO 132 [facility] [place] [address] 07/13/2024 3:30 PM EDT Imaging Radiology, [place] [id number] [facility] [place] [address] Scheduled Procedures Name Priority Associated Diagnoses Date/Ti [...] D LEVEL ONCE IN A LIFETIME-USE SMARTSET# 82962 Completed 03/22/2015 Pneumococcal Vaccine: 65+ Years Completed [...] this encounter Medical Devices Implanted Type Area Citrus Fruit Packer Device Identifier Shelf Expiration Date Model / Serial / Lot Chip Cancellous psychiatric 577089 - [id number] Implanted:Qty: 1 on 08/08/2013 [place] [facility] - Human Left: Foot MUSCULOSKELETAL TRANSPLANT FND 07/24/2015 [id number] / [id number] / Screw Nonlock 3.5 X 24 - [id number] Implanted:Qty: 1 on 08/08/2013 [place] [facility] Left: Foot ORTHOHELIX SURGICAL DESIGNS PLACEMENT DIRECTOR-011-3 5-24 / / Screw Locking 3.5 X 16 - [id number] Implanted:Qty: 2 on 08/08/2013 [place] [facility] [place] Left: Foot ORTHOHELIX SURGICAL DESIGNS PLACEMENT DIRECTOR-021-3 5-16 / / Plate 6 Hole Beta Mxl-0026 - [id number] Implanted:Qty: 1 on 08/08/2013 [place] [facility] [place] Left: Foot ORTHOHELIX SURGICAL DESIGNS MXL-0026 / / Screw Locking 3.5 X 20 - [id number] Implanted:Qty: 1 on 08/08/2013 [place] [facility] [place] Left: Foot ORTHOHELIX SURGICAL DESIGNS PLACEMENT DIRECTOR-021-3 5-20 / / Screw Nonlock 3.5 X 16 - [id number] Implanted:Qty: 1 on 08/08/2013 [place] [facility] [place] Left: Foot ORTHOHELIX SURGICAL DESIGNS PLACEMENT DIRECTOR-011-3 5-16 / / Screw Nonlock 3.5 X 18 - [id number] Implanted:Qty: 1 on 08/08/2013 [place] [facility] [place] Left: Foot ORTHOHELIX SURGICAL DESIGNS PLACEMENT DIRECTOR-011-3 5-18 / / Screw Nonlock 3.5 X 14 - [id number] Implanted:Qty: 1 on 08/08/2013 [place] [facility] [place] Left: Foot ORTHOHELIX SURGICAL DESIGNS PLACEMENT DIRECTOR-011-3 5-14 / / 4.0 X 3.0 Short Max Torque Implanted:Qty: 1 on 08/08/2013 [place] [facility] [place] Left: Foot ORTHOHELIX SURGICAL DESIGNS MSD-010-4 0-030S / / 4.0 X 32.5 Short Max Torque Implanted:Qty: 1 on 08/08/2013 [place] [facility] [place] Left: Foot MSD-010-4 0-325S / / 4.0 X 28 Short Max Torque Implanted:Qty: 1 on 08/08/2013 [place] [facility] [place] Left: Foot ORTHOHELIX SURGICAL DESIGNS MSD-010-4 0-028S / / 4.0 X 22 Short Max Torque Implanted:Qty: 1 on 08/08/2013 [place] [facility] [place] Left: Foot ORTHOHELIX SURGICAL DESIGNS MSD-010-4 0-022S / / [place] Gold 4.0 - [id number] Implanted:Qty: 1 on 08/08/2013 [place] [facility] [place] Left: Foot ORTHOHELIX SURGICAL DESIGNS CSS-500-4 0A / / Plate Lps Alpha 2 Slot - [id number] Implanted:Qty: 1 on 08/08/2013 [place] [facility] [place] Left: Foot ORTHOHELIX SURGICAL DESIGNS MXL-002-2 A / / Screw Variable 3.5 X 12mm - [id number] Implanted:Qty: 1 on 08/08/2013 [place] [facility] [place] Left: Foot ORTHOHELIX SURGICAL DESIGNS RAKESH-031-3 5-12 / / Screw Variable 3.5 X 18mm - [id number] Implanted:Qty: 1 on 08/08/2013 [place] [facility] [place] Left: Foot ORTHOHELIX SURGICAL DESIGNS RAKESH-031-3 5-18 / / documented as of this encounter Procedures Procedure Name Priority Date/Time Associated Diagnosis Comments RADIOLOGY EXAM - CT (IMAGES ONLY, NO REPORT) Routine 03/15/2024 7:10 PM EST documented in this encounter Results * RADIOLOGY EXAM - CT (IMAGES ONLY, NO REPORT) (03/15/2024 7:10 PM EST) 03/15/2024 6:42 PM EST Narrative Scheduling, Silent - 03/23/2024 10:34 PM EST This is an imaging study not interpreted or resulted by a [employer] or [employer] contracted radiologist. us Ronald Cortes MD RAD [...] Power of Attor elizabeth? No Care Teams Adjunct Trainer Relationship Specialty Start Date End Date Ronald Cortes MD [address] [place] [address] PCP - General 06/10/02 documented as of this encounter
--- OUTSIDE RECORDS SUMMARY | 2024-03-26 01:00 | External Medical Summary | Summary of Care ---
Author Name Unknown Organization [facility] Address [address] [facility] [place] [address] Phone [phone] Care Team Providers Care Curriculum Director Name Role Phone Ronald Cortes MD Primary Care Provider [phone] Encounter Details Date Type Department Care Team (Late st Contact Info) Description 03/15/2024 Orders Only [facility] [address] [facility] [place] [address] Ronald Cortes MD [address] [place] [address] Allergies Active Allergy Reactions Criticality Noted Date [...] headache 1 Tab 0 07/28/19 14 Active [place]-3 Fatty Acids (FISH OIL) 1000 MG Capsule [...] Cough. 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 Not on file Not on file [...] Description 04/28/2024 1:00 PM EST Office Visit [facility] [address] [place] [address] Hitesh Gordillo, 16 [place] [address] 05/23/2024 2:00 PM EST Office Visit Pulmonary Medicine, [facility] [address] [facility] [place] [address] Marbin Serrano MD [address] [place] [address] 06/07/2024 8:30 AM EST Office Visit Cardiology, [facility] [address] [place] [address] Pepe Lennon DO 132 [facility] [place] [address] 07/13/2024 3:30 PM EDT Imaging Radiology, [place] [address] [facility] [place] [address] Scheduled Procedures Name Priority Associated Diagnoses Date/Ti [...] D LEVEL ONCE IN A LIFETIME-USE SMARTSET# 93121 Completed 03/22/2015 Pneumococcal Vaccine: 65+ Years Completed [...] this encounter Medical Devices Implanted Type Area Aircraft Engine Mechanic Supervisor Device Identifier Shelf Expiration Date Model / Serial / Lot Chip Cancellous [facility] 535310 - [id number] Implanted:Qty: 1 on 08/08/2013 [place] [facility] [place] - Human Left: Foot MUSCULOSKELETAL TRANSPLANT FND 07/24/2015 [id number] / [id number] / Screw Nonlock 3.5 X 24 - [id number] Implanted:Qty: 1 on 08/08/2013 at [place] [facility] [place] Left: Foot ORTHOHELIX SURGICAL DESIGNS CHEMISTRY INSTRUCTOR-011-3 5-24 / / Screw Locking 3.5 X 16 - [id number] Implanted:Qty: 2 on 08/08/2013 at [place] [facility] [place] Left: Foot ORTHOHELIX SURGICAL DESIGNS CHEMISTRY INSTRUCTOR-021-3 5-16 / / Plate 6 Hole Beta Mxl-0026 - [id number] Implanted:Qty: 1 on 08/08/2013 at [place] [facility] [place] Left: Foot ORTHOHELIX SURGICAL DESIGNS MXL-0026 / / Screw Locking 3.5 X 20 - [id number] Implanted:Qty: 1 on 08/08/2013 at [place] [facility] [place] Left: Foot ORTHOHELIX SURGICAL DESIGNS CHEMISTRY INSTRUCTOR-021-3 5-20 / / Screw Nonlock 3.5 X 16 - [id number] Implanted:Qty: 1 on 08/08/2013 at [place] [facility] [place] Left: Foot ORTHOHELIX SURGICAL DESIGNS CHEMISTRY INSTRUCTOR-011-3 5-16 / / Screw Nonlock 3.5 X 18 - [id number] Implanted:Qty: 1 on 08/08/2013 at [place] [facility] [place] Left: Foot ORTHOHELIX SURGICAL DESIGNS CHEMISTRY INSTRUCTOR-011-3 5-18 / / Screw Nonlock 3.5 X 14 - [id number] Implanted:Qty: 1 on 08/08/2013 at [place] [facility] [place] [place] Left: Foot ORTHOHELIX SURGICAL DESIGNS CHEMISTRY INSTRUCTOR-011-3 5-14 / / 4.0 X 3.0 Short Max Torque Implanted:Qty: 1 on 08/08/2013 at [place] [facility] [place] [place] Left: Foot ORTHOHELIX SURGICAL DESIGNS MSD-010-4 0-030S / / 4.0 X 32.5 Short Max Torque Implanted:Qty: 1 on 08/08/2013 at [place] [facility] [place] Left: Foot MSD-010-4 0-325S / / 4.0 X 28 Short Max Torque Implanted:Qty: 1 on 08/08/2013 at [place] [facility] [place] [place] Left: Foot ORTHOHELIX SURGICAL DESIGNS MSD-010-4 0-028S / / 4.0 X 22 Short Max Torque Implanted:Qty: 1 on 08/08/2013 at [place] [facility] [place] Left: Foot ORTHOHELIX SURGICAL DESIGNS MSD-010-4 0-022S / / [place] Gold 4.0 - [id number] Implanted:Qty: 1 on 08/08/2013 at [place] [facility] [place] [place] Left: Foot ORTHOHELIX SURGICAL DESIGNS CSS-500-4 0A / / Plate Lps Alpha 2 Slot - [id number] Implanted:Qty: 1 on 08/08/2013 at [place] [facility] [place] Left: Foot ORTHOHELIX SURGICAL DESIGNS MXL-002-2 A / / Screw Variable 3.5 X 12mm - [id number] Implanted:Qty: 1 on 08/08/2013 at [place] [facility] [place] [place] Left: Foot ORTHOHELIX SURGICAL DESIGNS RAKESH-031-3 5-12 / / Screw Variable 3.5 X 18mm - [id number] Implanted:Qty: 1 on 08/08/2013 at [place] [facility] [place] Left: Foot ORTHOHELIX SURGICAL DESIGNS RAKESH-031-3 5-18 / / documented as of this encounter Procedures Procedure Name Priority Date/Time Associated Diagnosis Comments RADIOLOGY EXAM - GENERAL RAD (IMAGES ONLY,NO REPORT) Routine 03/15/2024 6:45 PM EST documented in this encounter Results * RADIOLOGY EXAM - GENERAL RAD (IMAGES ONLY,NO REPORT) (03/15/2024 6:45 PM EST) 03/15/2024 6:30 PM EST Narrative Scheduling, Silent - 03/23/2024 10:08 PM EST This is an imaging study not interpreted or resulted by a [employer] or [employer] contracted radiologist. us Ronald Cortes MD RADIOLOGY (RAD GENERAL) Final R esult documented in this encounter Advance Directives * [...] Power of Attor elizabeth? No Care Teams Curriculum Director Relationship Specialty Start Date End Date Ronald Cortes MD [address] [place] [address] PCP - General 06/10/02 documented as of this encounter
--- OUTSIDE RECORDS SUMMARY | 2024-03-26 01:00 | External Medical Summary | Summary of Care ---
Author Name Unknown Organization [facility] Address [address] [facility] [place] [place] [address] Phone [phone] Care Team Providers Care Accounting System Expert Name Role Phone Ronald Cortes MD Primary Care Provider [phone] Encounter Details Date Type Department Care Team (Late st Contact Info) Description 03/15/2024 Orders Only [facility] [address] [facility] [place] [address] Ronald Cortes MD [address] [place] [address] Allergies Active Allergy Reactions Criticality Noted Date [...] headache 1 Tab 0 07/28/19 14 Active [place]-3 Fatty Acids (FISH OIL) 1000 MG Capsule [...] Cough. 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 file Not on file Not [...] Description 04/28/2024 1:00 PM EST Office Visit [facility] 16 [place] [address] Hitesh Gordillo, 16 [place] [address] 05/23/2024 2:00 PM EST Office Visit Pulmonary Medicine, [facility] 132 [facility] [place] [address] Marbin Serrano MD [address] [place] [address] 06/07/2024 8:30 AM EST Office Visit Cardiology, [facility] [address] [place] [address] Pepe Lennon DO 132 [facility] [place] [address] 07/13/2024 3:30 PM EDT Imaging Radiology, [place] [id number] [facility] [place] [address] Scheduled Procedures Name Priority Associated Diagnoses Date/Ti [...] D LEVEL ONCE IN A LIFETIME-USE SMARTSET# 90084 Completed 03/22/2015 Pneumococcal Vaccine: 65+ Years Completed [...] this encounter Medical Devices Implanted Type Area Printer'S Devil Device Identifier Shelf Expiration Date Model / Serial / Lot Chip Cancellous [facility] 055791 - [id number] Implanted:Qty: 1 on 08/08/2013 at [place] Tissue - Human Left: Foot MUSCULOSKELETAL TRANSPLANT FND 07/24/2015 [id number] / [id number] / Screw Nonlock 3.5 X 24 - [id number] Implanted:Qty: 1 on 08/08/2013 at OR [facility] Left: Foot ORTHOHELIX SURGICAL DESIGNS AIR CARRIER OPERATIONS INSPECTOR-011-3 5-24 / / Screw Locking 3.5 X 16 - [id number] Implanted:Qty: 2 on 08/08/2013 at OR [facility] Left: Foot ORTHOHELIX SURGICAL DESIGNS AIR CARRIER OPERATIONS INSPECTOR-021-3 5-16 / / Plate 6 Hole Beta Mxl-0026 - [id number] Implanted:Qty: 1 on 08/08/2013 at OR [facility] Left: Foot ORTHOHELIX SURGICAL DESIGNS MXL-0026 / / Screw Locking 3.5 X 20 - [id number] Implanted:Qty: 1 on 08/08/2013 at OR [facility] Left: Foot ORTHOHELIX SURGICAL DESIGNS AIR CARRIER OPERATIONS INSPECTOR-021-3 5-20 / / Screw Nonlock 3.5 X 16 - [id number] Implanted:Qty: 1 on 08/08/2013 at OR [facility] Left: Foot ORTHOHELIX SURGICAL DESIGNS AIR CARRIER OPERATIONS INSPECTOR-011-3 5-16 / / Screw Nonlock 3.5 X 18 - [id number] Implanted:Qty: 1 on 08/08/2013 at OR [place] Left: Foot ORTHOHELIX SURGICAL DESIGNS AIR CARRIER OPERATIONS INSPECTOR-011-3 5-18 / / Screw Nonlock 3.5 X 14 - [id number] Implanted:Qty: 1 on 08/08/2013 at OR [facility] Left: Foot ORTHOHELIX SURGICAL DESIGNS AIR CARRIER OPERATIONS INSPECTOR-011-3 5-14 / / 4.0 X 3.0 [...] / / [place] Gold 4.0 - [id number] Implanted:Qty: 1 on 08/08/2013 at OR [facility] Left: Foot ORTHOHELIX SURGICAL DESIGNS CSS-500-4 0A / / Plate Lps Alpha 2 Slot - [id number] Implanted:Qty: 1 on 08/08/2013 at OR [facility] Left: Foot ORTHOHELIX SURGICAL DESIGNS MXL-002-2 A / / Screw Variable 3.5 X 12mm - [id number] Implanted:Qty: 1 on 08/08/2013 at OR [facility] Left: Foot ORTHOHELIX SURGICAL DESIGNS RAKESH-031-3 5-12 / / Screw Variable 3.5 X 18mm - [id number] Implanted:Qty: 1 on 08/08/2013 at OR [facility] Left: Foot ORTHOHELIX SURGICAL DESIGNS RAKESH-031-3 5-18 / / documented as of this encounter Procedures Procedure Name Priority Date/Time Associated Diagnosis Comments RADIOLOGY EXAM - GENERAL RAD (IMAGES ONLY,NO REPORT) Routine 03/15/2024 6:30 PM EST documented in this encounter Results * RADIOLOGY EXAM - GENERAL RAD (IMAGES ONLY,NO REPORT) (03/15/2024 6:30 PM EST) 03/15/2024 6:30 PM EST Narrative Scheduling, Silent - 03/23/2024 9:43 PM EST This is an imaging study not interpreted or resulted by a [facility] or [employer] contracted radiologist. us Ronald Cortes MD RADIOLOGY [...] Power of Attor elizabeth? No Care Teams Accounting System Expert Relationship Specialty Start Date End Date Ronald Cortes MD [address] [place] [address] PCP - General 06/10/02 documented as of this encounter
--- OUTSIDE RECORDS SUMMARY | 2024-03-26 01:00 | External Medical Summary | Summary of Care ---
Author Name Unknown Organization [facility] Address [address] [facility] [address] Phone [phone] Care Team Providers Care Flash Ranging Crewmember Name Role Phone Ronald Cortes MD Primary Care Provider [phone] Encounter Details Date Type Department Care Team (Late st Contact Info) Description 03/15/2024 Orders Only [facility] [address] [facility] [place] [address] Ronald Cortes MD [address] [place] [address] Allergies Active Allergy Reactions Criticality Noted Date [...] headache 1 Tab 0 07/28/19 14 Active [place]-3 Fatty Acids (FISH OIL) 1000 MG Capsule [...] Cough. 54 g 3 02/08/20 Active Tiotropium [place] Monohydrate 18 MCG Inhalation Capsule (Spiriva HandiHaler) [...] stent 07/01/2023 Coronary artery disease invo lving [place] coronary artery of [place] heart without angina pectoris 07/01/2023 Hematuria of [...] file Not on file Not on file Firer Kiln Not on file Not on file Not [...] Description 04/28/2024 1:00 PM EST Office Visit [facility] [address] [place] [address] Hitesh Gordillo, 16 [place] [address] 05/23/2024 2:00 PM EST Office Visit Pulmonary Medicine, [facility] 132 [facility] [place] [address] Marbin Serrano MD [address] [place] [address] 06/07/2024 8:30 AM EST Office Visit Cardiology, [facility] [address] [place] [address] Pepe Lennon DO 132 [facility] [place] [address] 07/13/2024 3:30 PM EDT Imaging Radiology, [place] [address] [facility] [place] [address] Scheduled Procedures Name Priority Associated Diagnoses Date/Ti [...] D LEVEL ONCE IN A LIFETIME-USE SMARTSET# 60798 Completed 03/22/2015 Pneumococcal Vaccine: 65+ Years Completed [...] this encounter Medical Devices Implanted Type Area Radiation Protection Engineer Device Identifier Shelf Expiration Date Model / Serial / Lot Chip Cancellous [facility] [id number] - [id number] Implanted:Qty: 1 on 08/08/2013 at [place] [facility] Tissue - Human Left: Foot MUSCULOSKELETAL TRANSPLANT FND 07/24/2015 [id number] / [id number] / Screw Nonlock 3.5 X 24 - [id number] Implanted:Qty: 1 on 08/08/2013 at OR [facility] Left: Foot ORTHOHELIX SURGICAL DESIGNS FRYER OPERATOR-011-3 5-24 / / Screw Locking 3.5 X 16 - [id number] Implanted:Qty: 2 on 08/08/2013 at [place] [facility] Left: Foot ORTHOHELIX SURGICAL DESIGNS FRYER OPERATOR-021-3 5-16 / / Plate 6 Hole Beta Mxl-0026 - [id number] Implanted:Qty: 1 on 08/08/2013 at [place] [facility] Left: Foot ORTHOHELIX SURGICAL DESIGNS MXL-0026 / / Screw Locking 3.5 X 20 - [id number] Implanted:Qty: 1 on 08/08/2013 at [place] [facility] Left: Foot ORTHOHELIX SURGICAL DESIGNS FRYER OPERATOR-021-3 5-20 / / Screw Nonlock 3.5 X 16 - [id number] Implanted:Qty: 1 on 08/08/2013 at [place] [facility] Left: Foot ORTHOHELIX SURGICAL DESIGNS FRYER OPERATOR-011-3 5-16 / / Screw Nonlock 3.5 X 18 - [id number] Implanted:Qty: 1 on 08/08/2013 at [place] [facility] Left: Foot ORTHOHELIX SURGICAL DESIGNS FRYER OPERATOR-011-3 5-18 / / Screw Nonlock 3.5 X 14 - [id number] Implanted:Qty: 1 on 08/08/2013 at OR [facility] Left: Foot ORTHOHELIX SURGICAL DESIGNS FRYER OPERATOR-011-3 5-14 / / 4.0 X 3.0 Short Max Torque Implanted:Qty: 1 on 08/08/2013 at OR [facility] Left: Foot ORTHOHELIX SURGICAL DESIGNS MSD-010-4 0-030S / / 4.0 X 32.5 Short Max Torque Implanted:Qty: 1 on 08/08/2013 at [place] [facility] Left: Foot MSD-010-4 0-325S / / 4.0 X 28 Short Max Torque Implanted:Qty: 1 on 08/08/2013 at OR [facility] Left: Foot ORTHOHELIX SURGICAL DESIGNS MSD-010-4 0-028S / / 4.0 X 22 Short Max Torque Implanted:Qty: 1 on 08/08/2013 at OR [facility] Left: Foot ORTHOHELIX SURGICAL DESIGNS MSD-010-4 0-022S / / [place] Gold 4.0 - [id number] Implanted:Qty: 1 on 08/08/2013 at OR [facility] Left: Foot ORTHOHELIX SURGICAL DESIGNS CSS-500-4 0A / / Plate Lps Alpha 2 Slot - [id number] Implanted:Qty: 1 on 08/08/2013 at OR [facility] Left: Foot ORTHOHELIX SURGICAL DESIGNS MXL-002-2 A / / Screw Variable 3.5 X 12mm - [id number] Implanted:Qty: 1 on 08/08/2013 at OR [facility] Left: Foot ORTHOHELIX SURGICAL DESIGNS RAKESH-031-3 5-12 / / Screw Variable 3.5 X 18mm - [id number] Implanted:Qty: 1 on 08/08/2013 at OR [facility] Left: Foot ORTHOHELIX SURGICAL DESIGNS RAKESH-031-3 5-18 / / documented as of this encounter Procedures Procedure Name Priority Date/Time Associated Diagnosis Comments RADIOLOGY EXAM - CT (IMAGES ONLY, NO REPORT) Routine 03/15/2024 7:00 PM EST documented in this encounter Results * RADIOLOGY EXAM - CT (IMAGES ONLY, NO REPORT) (03/15/2024 7:00 PM EST) 03/15/2024 6:42 PM EST Narrative Scheduling, Silent - 03/23/2024 10:27 PM EST This is an imaging study not interpreted or resulted by a [facility] or [employer] contracted radiologist. us Ronald Cortes MD RAD [...] Power of Attor elizabeth? No Care Teams Flash Ranging Crewmember Relationship Specialty Start Date End Date Ronald Cortes MD [address] [place] [address] PCP - General 06/10/02 documented as of this encounter
--- OUTSIDE RECORDS SUMMARY | 2024-03-26 01:00 | External Medical Summary | Summary of Care ---
Author Name Unknown Organization [facility] Address [address] [facility] [place] [address] Phone [phone] Care Team Providers Care Acute Care Nurse Practitioner Name Role Phone Ronald Cortes MD Primary Care Provider [phone] Encounter Details Date Type Department Care Team (Late st Contact Info) Description 03/15/2024 Orders Only [facility] [address] [facility] [place] [address] Ronald Cortes MD 226 [place] [address] Allergies Active Allergy Reactions Criticality Noted Date [...] headache 1 Tab 0 07/28/19 14 Active [place]-3 Fatty Acids (FISH OIL) 1000 MG Capsule [...] Cough. 54 g 3 02/08/20 Active Tiotropium [place] Monohydrate 18 MCG Inhalation Capsule (Spiriva HandiHaler) [...] stent 07/01/2023 Coronary artery disease invo lving [place] coronary artery of [place] heart without angina pectoris 07/01/2023 Hematuria of [...] file Not on file Not on file Weed Eradicator Not on file Not on file Not [...] Office Visit [facility] [address] [place] [address] Hitesh Gordillo, 16 [place] [address] 05/23/2024 2:00 PM EST Office Visit Pulmonary Medicine, [facility] 132 [facility] [place] [address] Marbin Serrano MD [address] [place] [address] 06/07/2024 8:30 AM EST Office Visit Cardiology, [facility] [address] [place] [address] Pepe Lennon DO 132 [facility] [place] [address] 07/13/2024 3:30 PM EDT Imaging Radiology, [place] [address] [facility] [place] [address] Scheduled Procedures Name Priority Associated Diagnoses Date/Ti [...] D LEVEL ONCE IN A LIFETIME-USE SMARTSET# 62584 Completed 03/22/2015 Pneumococcal Vaccine: 65+ Years Completed [...] this encounter Medical Devices Implanted Type Area Radiological Health Specialist Device Identifier Shelf Expiration Date Model / Serial / Lot Chip Cancellous [facility] 916019 - [id number] 1 Implanted:Qty: 1 on 08/08/2013 at [place] [facility] Tissue - Human Left: Foot MUSCULOSKELETAL TRANSPLANT FND 07/24/2015 [id number] / [id number] / Screw Nonlock 3.5 X 24 - [id number] Implanted:Qty: 1 on 08/08/2013 at OR [facility] Left: Foot ORTHOHELIX SURGICAL DESIGNS FIELD MARKETING LEAD-011-3 5-24 / / Screw Locking 3.5 X 16 - [id number] Implanted:Qty: 2 on 08/08/2013 at [place] [facility] Left: Foot ORTHOHELIX SURGICAL DESIGNS FIELD MARKETING LEAD-021-3 5-16 / / Plate 6 Hole Beta Mxl-0026 - [id number] Implanted:Qty: 1 on 08/08/2013 at [place] [facility] Left: Foot ORTHOHELIX SURGICAL DESIGNS MXL-0026 / / Screw Locking 3.5 X 20 - [id number] Implanted:Qty: 1 on 08/08/2013 at [place] [facility] Left: Foot ORTHOHELIX SURGICAL DESIGNS FIELD MARKETING LEAD-021-3 5-20 / / Screw Nonlock 3.5 X 16 - [id number] Implanted:Qty: 1 on 08/08/2013 at [place] [facility] Left: Foot ORTHOHELIX SURGICAL DESIGNS FIELD MARKETING LEAD-011-3 5-16 / / Screw Nonlock 3.5 X 18 - [id number] Implanted:Qty: 1 on 08/08/2013 at [place] [facility] Left: Foot ORTHOHELIX SURGICAL DESIGNS FIELD MARKETING LEAD-011-3 5-18 / / Screw Nonlock 3.5 X 14 - [id number] Implanted:Qty: 1 on 08/08/2013 at [place] [facility] Left: Foot ORTHOHELIX SURGICAL DESIGNS FIELD MARKETING LEAD-011-3 5-14 / / 4.0 X 3.0 Short Max Torque Implanted:Qty: 1 on 08/08/2013 at [place] [facility] Left: Foot ORTHOHELIX SURGICAL DESIGNS MSD-010-4 0-030S / / 4.0 X 32.5 Short Max Torque Implanted:Qty: 1 on 08/08/2013 at [place] [facility] Left: Foot MSD-010-4 0-325S / / 4.0 X 28 Short Max Torque Implanted:Qty: 1 on 08/08/2013 at [place] [facility] Left: Foot ORTHOHELIX SURGICAL DESIGNS MSD-010-4 0-028S / / 4.0 X 22 Short Max Torque Implanted:Qty: 1 on 08/08/2013 at [place] [facility] Left: Foot ORTHOHELIX SURGICAL DESIGNS MSD-010-4 0-022S / / [place] Gold 4.0 - [id number] Implanted:Qty: 1 on 08/08/2013 at [place] [facility] Left: Foot ORTHOHELIX SURGICAL DESIGNS CSS-500-4 0A / / Plate Lps Alpha 2 Slot - [id number] Implanted:Qty: 1 on 08/08/2013 at [place] [facility] Left: Foot ORTHOHELIX SURGICAL DESIGNS MXL-002-2 A / / Screw Variable 3.5 X 12mm - [id number] Implanted:Qty: 1 on 08/08/2013 at [place] [facility] Left: Foot ORTHOHELIX SURGICAL DESIGNS RAKESH-031-3 5-12 / / Screw Variable 3.5 X 18mm - [id number] Implanted:Qty: 1 on 08/08/2013 at [place] [facility] Left: Foot ORTHOHELIX SURGICAL DESIGNS RAKESH-031-3 5-18 / / documented as of this encounter Procedures Procedure Name Priority Date/Time Associated Diagnosis Comments RADIOLOGY EXAM - CT (IMAGES ONLY, NO REPORT) Routine 03/15/2024 6:50 PM EST documented in this encounter Results * RADIOLOGY EXAM - CT (IMAGES ONLY, NO REPORT) (03/15/2024 6:50 PM EST) 03/15/2024 6:42 PM EST Narrative Scheduling, Silent - 03/23/2024 10:18 PM EST This is an imaging study not interpreted or resulted by a [employer] or [employer] contracted radiologist. us Ronald Cortes MD RAD [...] Power of Attor elizabeth? No Care Teams Acute Care Nurse Practitioner Relationship Specialty Start Date End Date Ronald Cortes MD [address] [place] [address] PCP - General 06/10/02 documented as of this encounter
--- OUTSIDE RECORDS SUMMARY | 2024-03-26 01:00 | External Medical Summary | Summary of Care ---
Author Name Unknown Organization [facility] Address [address] [facility] [place] [address] Phone [phone] Care Team Providers Care Teacher Physically Impaired Name Role Phone Ronald Cortes MD Primary Care Provider [phone] Encounter Details Date Type Department Care Team (Late st Contact Info) Description 03/15/2024 Orders Only [facility] [address] [facility] [place] [address] Ronald Cortes MD 226 [place] [address] Allergies Active Allergy Reactions Criticality Noted Date [...] headache 1 Tab 0 07/28/19 14 Active [place]-3 Fatty Acids (FISH OIL) 1000 MG Capsule [...] 54 g 3 02/08/20 Active Tiotropium [place] Monohydrate 18 MCG Inhalation Capsule (Spiriva HandiHaler) [...] stent 07/01/2023 Coronary artery disease invo lving [place] coronary artery of [place] heart without angina pectoris 07/01/2023 Hematuria of [...] file Not on file Not on file Skin Lap Bonder Not on file Not on file Not [...] Description 04/28/2024 1:00 PM EST Office Visit [facility] 16 [place] [address] Hitesh Gordillo, 16 [place] [address] 05/23/2024 2:00 PM EST Office Visit Pulmonary Medicine, [facility] 132 [facility] [place] [address] Marbin Serrano MD [address] [place] [address] 06/07/2024 8:30 AM EST Office Visit Cardiology, [facility] [address] [place] [address] Pepe Lennon DO 132 [facility] [place] [address] 07/13/2024 3:30 PM EDT Imaging Radiology, [place] [address] [facility] [place] [address] Scheduled Procedures Name Priority Associated Diagnoses Date/Ti [...] D LEVEL ONCE IN A LIFETIME-USE SMARTSET# 16041 Completed 03/22/2015 Pneumococcal Vaccine: 65+ Years Completed [...] this encounter Medical Devices Implanted Type Area Cot Assembler Device Identifier Shelf Expiration Date Model / Serial / Lot Chip Cancellous [facility] 667307 - [id number] 1 Implanted:Qty: 1 on 08/08/2013 at [place] [facility] [place] - Human Left: Foot MUSCULOSKELETAL TRANSPLANT FND 07/24/2015 895881 / [id number] / Screw Nonlock 3.5 X 24 - [id number] Implanted:Qty: 1 on 08/08/2013 at [place] [facility] Left: Foot ORTHOHELIX SURGICAL DESIGNS PEER EDUCATOR-011-3 5-24 / / Screw Locking 3.5 X 16 - [id number] Implanted:Qty: 2 on 08/08/2013 at [place] [facility] Left: Foot ORTHOHELIX SURGICAL DESIGNS PEER EDUCATOR-021-3 5-16 / / Plate 6 Hole Beta Mxl-0026 - [id number] Implanted:Qty: 1 on 08/08/2013 at [place] [facility] Left: Foot ORTHOHELIX SURGICAL DESIGNS MXL-0026 / / Screw Locking 3.5 X 20 - [id number] Implanted:Qty: 1 on 08/08/2013 at [place] [facility] Left: Foot ORTHOHELIX SURGICAL DESIGNS PEER EDUCATOR-021-3 5-20 / / Screw Nonlock 3.5 X 16 - [id number] Implanted:Qty: 1 on 08/08/2013 at [place] [facility] Left: Foot ORTHOHELIX SURGICAL DESIGNS PEER EDUCATOR-011-3 5-16 / / Screw Nonlock 3.5 X 18 - [id number] Implanted:Qty: 1 on 08/08/2013 at [place] [facility] Left: Foot ORTHOHELIX SURGICAL DESIGNS PEER EDUCATOR-011-3 5-18 / / Screw Nonlock 3.5 X 14 - [id number] Implanted:Qty: 1 on 08/08/2013 at [place] [facility] Left: Foot ORTHOHELIX SURGICAL DESIGNS PEER EDUCATOR-011-3 5-14 / / 4.0 X 3.0 Short Max Torque Implanted:Qty: 1 on 08/08/2013 at [place] [facility] Left: Foot ORTHOHELIX SURGICAL DESIGNS MSD-010-4 0-030S / / 4.0 X 32.5 Short Max Torque Implanted:Qty: 1 on 08/08/2013 at [place] [facility] Left: Foot MSD-010-4 0-325S / / 4.0 X 28 Short Max Torque Implanted:Qty: 1 on 08/08/2013 at [place] [facility] Left: Foot ORTHOHELIX SURGICAL DESIGNS MSD-010-4 0-028S / / 4.0 X 22 Short Max Torque Implanted:Qty: 1 on 08/08/2013 at [place] [facility] Left: Foot ORTHOHELIX SURGICAL DESIGNS MSD-010-4 0-022S / / [place] Gold 4.0 - [id number] Implanted:Qty: 1 on 08/08/2013 at [place] [facility] Left: Foot ORTHOHELIX SURGICAL DESIGNS CSS-500-4 0A / / Plate Lps Alpha 2 Slot - [id number] Implanted:Qty: 1 on 08/08/2013 at [place] [facility] Left: Foot ORTHOHELIX SURGICAL DESIGNS MXL-002-2 A / / Screw Variable 3.5 X 12mm - [id number] Implanted:Qty: 1 on 08/08/2013 at [place] [facility] Left: Foot ORTHOHELIX SURGICAL DESIGNS RAKESH-031-3 5-12 / / Screw Variable 3.5 X 18mm - [id number] Implanted:Qty: 1 on 08/08/2013 at [place] [facility] Left: Foot ORTHOHELIX SURGICAL DESIGNS RAKESH-031-3 5-18 / / documented as of this encounter Procedures Procedure Name Priority Date/Time Associated Diagnosis Comments RADIOLOGY EXAM - CT (IMAGES ONLY, NO REPORT) Routine 03/15/2024 6:55 PM EST documented in this encounter Results * RADIOLOGY EXAM - CT (IMAGES ONLY, NO REPORT) (03/15/2024 6:55 PM EST) 03/15/2024 6:42 PM EST Narrative Scheduling, Silent - 03/23/2024 10:21 PM EST This is an imaging study not interpreted or resulted by a [facility] or [employer] contracted radiologist. us Ronald Cortes MD RAD [...] Power of Attor elizabeth? No Care Teams Teacher Physically Impaired Relationship Specialty Start Date End Date Ronald Cortes MD [address] [place] [address] PCP - General 06/10/02 documented as of this encounter
--- OUTSIDE RECORDS SUMMARY | 2024-03-26 01:00 | External Medical Summary | Summary of Care ---
Author Name Unknown Organization [facility] Address [address] [facility] [place] [address] Phone [phone] Care Team Providers Care Beef Farmer Name Role Phone Ronald Cortes MD Primary Care Provider [phone] Encounter Details Date Type Department Care Team (Late st Contact Info) Description 03/15/2024 Orders Only [facility] [address] [facility] [place] [address] Ronald Cortes MD [address] [place] [address] Allergies Active Allergy Reactions Criticality Noted Date [...] headache 1 Tab 0 07/28/19 14 Active [place]-3 Fatty Acids (FISH OIL) 1000 MG Capsule [...] Capsule 2 08/05/19 24 Active Potassium Chloride Uniuqe ER 10 MEQ Oral Tablet Extended Release [...] Cough. 54 g 3 02/08/20 Active Tiotropium [place] Monohydrate 18 MCG Inhalation Capsule (Spiriva HandiHaler) [...] stent 07/01/2023 Coronary artery disease invo lving [place] coronary artery of [place] heart without angina pectoris 07/01/2023 Hematuria of [...] file Not on file Not on file Paying Teller Not on file Not on file Not [...] Description 04/28/2024 1:00 PM EST Office Visit [facility] 16 [place] [address] Hitesh Gordillo, 16 [place] [address] 05/23/2024 2:00 PM EST Office Visit Pulmonary Medicine, [facility] 132 [facility] [place] [address] Marbin Serrano MD [address] [place] [address] 06/07/2024 8:30 AM EST Office Visit Cardiology, [facility] [address] [place] [address] Pepe Lennon DO 132 [facility] [place] [address] 07/13/2024 3:30 PM EDT Imaging Radiology, [place] [id number] [facility] [place] [address] Scheduled Procedures Name Priority Associated Diagnoses Date/Ti [...] D LEVEL ONCE IN A LIFETIME-USE SMARTSET# 29640 Completed 03/22/2015 Pneumococcal Vaccine: 65+ Years Completed [...] this encounter Medical Devices Implanted Type Area Pastoral Worker Device Identifier Shelf Expiration Date Model / Serial / Lot Chip Cancellous [facility] 379383 - [id number] 1 Implanted:Qty: 1 on 08/08/2013 at [place] [facility] [facility] Tissue - Human Left: Foot MUSCULOSKELETAL TRANSPLANT FND 07/24/2015 [id number] / [id number] / Screw Nonlock 3.5 X 24 - [id number] Implanted:Qty: 1 on 08/08/2013 at [place] [facility] Left: Foot ORTHOHELIX SURGICAL DESIGNS SENIOR COST ACCOUNTANT-011-3 5-24 / / Screw Locking 3.5 X 16 - [id number] Implanted:Qty: 2 on 08/08/2013 at [place] [facility] Left: Foot ORTHOHELIX SURGICAL DESIGNS SENIOR COST ACCOUNTANT-021-3 5-16 / / Plate 6 Hole Beta Mxl-0026 - [id number] Implanted:Qty: 1 on 08/08/2013 at [place] [facility] [facility] Left: Foot ORTHOHELIX SURGICAL DESIGNS MXL-0026 / / Screw Locking 3.5 X 20 - [id number] Implanted:Qty: 1 on 08/08/2013 at [place] [facility] [facility] Left: Foot ORTHOHELIX SURGICAL DESIGNS SENIOR COST ACCOUNTANT-021-3 5-20 / / Screw Nonlock 3.5 X 16 - [id number] Implanted:Qty: 1 on 08/08/2013 at [place] [facility] [facility] Left: Foot ORTHOHELIX SURGICAL DESIGNS SENIOR COST ACCOUNTANT-011-3 5-16 / / Screw Nonlock 3.5 X 18 - [id number] Implanted:Qty: 1 on 08/08/2013 at [place] [facility] [place] [facility] Left: Foot ORTHOHELIX SURGICAL DESIGNS SENIOR COST ACCOUNTANT-011-3 5-18 / / Screw Nonlock 3.5 X 14 - [id number] Implanted:Qty: 1 on 08/08/2013 at [place] [facility] [place] Left: Foot ORTHOHELIX SURGICAL DESIGNS SENIOR COST ACCOUNTANT-011-3 5-14 / / 4.0 X 3.0 Short [...] / / [place] Gold 4.0 - [id number] Implanted:Qty: 1 on 08/08/2013 at [place] [facility] Left: Foot ORTHOHELIX SURGICAL DESIGNS CSS-500-4 0A / / Plate Lps Alpha 2 Slot - [id number] Implanted:Qty: 1 on 08/08/2013 at [place] [facility] [facility] Left: Foot ORTHOHELIX SURGICAL DESIGNS MXL-002-2 A / / Screw Variable 3.5 X 12mm - [id number] Implanted:Qty: 1 on 08/08/2013 at [place] [facility] [place] [facility] Left: Foot ORTHOHELIX SURGICAL DESIGNS RAKESH-031-3 5-12 / / Screw Variable 3.5 X 18mm - [id number] Implanted:Qty: 1 on 08/08/2013 at [place] [facility] [place] Left: Foot ORTHOHELIX SURGICAL DESIGNS RAKESH-031-3 5-18 / / documented as of this encounter Procedures Procedure Name Priority Date/Time Associated Diagnosis Comments RADIOLOGY EXAM - GENERAL RAD (IMAGES ONLY,NO REPORT) Routine 03/15/2024 6:35 PM EST documented in this encounter Results * RADIOLOGY EXAM - GENERAL RAD (IMAGES ONLY,NO REPORT) (03/15/2024 6:35 PM EST) 03/15/2024 6:30 PM EST Narrative Scheduling, Silent - 03/23/2024 9:46 PM EST This is an imaging study not interpreted or resulted by a [facility] or [employer] contracted radiologist. us Ronald Cortes MD RADIOLOGY [...] Power of Attor elizabeth? No Care Teams Beef Farmer Relationship Specialty Start Date End Date Ronald Cortes MD [address] [place] [address] PCP - General 06/10/02 documented as of this encounter
--- OUTSIDE RECORDS SUMMARY | 2024-03-26 01:00 | External Medical Summary | Summary of Care ---
Author Name Unknown Organization [facility] Address [address] [facility] [place] [address] Phone [phone] Care Team Providers Care Manager Applied Name Role Phone Ronald Cortes MD Primary Care Provider [phone] Encounter Details Date Type Department Care Team (Late st Contact Info) Description 03/15/2024 Orders Only [facility] [address] [facility] [place] [address] Ronald Cortes MD [address] [place] [address] Allergies Active Allergy Reactions Criticality Noted Date [...] headache 1 Tab 0 07/28/19 14 Active [place]-3 Fatty Acids (FISH OIL) 1000 MG Capsule [...] Cough. 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 Not on file Not on file Not [...] Description 04/28/2024 1:00 PM EST Office Visit [facility] [address] [place] [address] Hitesh Gordillo, [address] [place] [address] 05/23/2024 2:00 PM EST Office Visit Pulmonary Medicine, [facility] [address] [facility] [place] [address] Marbin Serrano MD [address] [place] [address] 06/07/2024 8:30 AM EST Office Visit Cardiology, [facility] [address] [place] [address] Pepe Lennon DO [address] [facility] [place] [address] 07/13/2024 3:30 PM EDT Imaging Radiology, [place] [id number] [facility] [place] [address] Scheduled Procedures Name Priority Associated Diagnoses Date/Ti [...] D LEVEL ONCE IN A LIFETIME-USE SMARTSET# 90533 Completed 03/22/2015 Pneumococcal Vaccine: 65+ Years Completed [...] this encounter Medical Devices Implanted Type Area System Dispatcher Device Identifier Shelf Expiration Date Model / Serial / Lot Chip Cancellous [facility] 769692 - [id number] Implanted:Qty: 1 on 08/08/2013 at [place] [facility] Tissue - Human Left: Foot MUSCULOSKELETAL TRANSPLANT FND 07/24/2015 [id number] / [id number] / Screw Nonlock 3.5 X 24 - [id number] Implanted:Qty: 1 on 08/08/2013 at [place] [facility] Left: Foot ORTHOHELIX SURGICAL DESIGNS SESSIONS CLERK-011-3 5-24 / / Screw Locking 3.5 X 16 - [id number] Implanted:Qty: 2 on 08/08/2013 at [place] [facility] Left: Foot ORTHOHELIX SURGICAL DESIGNS SESSIONS CLERK-021-3 5-16 / / Plate 6 Hole Beta Mxl-0026 - [id number] Implanted:Qty: 1 on 08/08/2013 at [place] [facility] Left: Foot ORTHOHELIX SURGICAL DESIGNS MXL-0026 / / Screw Locking 3.5 X 20 - [id number] Implanted:Qty: 1 on 08/08/2013 at [place] [facility] Left: Foot ORTHOHELIX SURGICAL DESIGNS SESSIONS CLERK-021-3 5-20 / / Screw Nonlock 3.5 X 16 - [id number] Implanted:Qty: 1 on 08/08/2013 at [place] [facility] Left: Foot ORTHOHELIX SURGICAL DESIGNS SESSIONS CLERK-011-3 5-16 / / Screw Nonlock 3.5 X 18 - [id number] Implanted:Qty: 1 on 08/08/2013 at [place] [facility] Left: Foot ORTHOHELIX SURGICAL DESIGNS SESSIONS CLERK-011-3 5-18 / / Screw Nonlock 3.5 X 14 - [id number] Implanted:Qty: 1 on 08/08/2013 at [place] [facility] Left: Foot ORTHOHELIX SURGICAL DESIGNS SESSIONS CLERK-011-3 5-14 / / 4.0 X 3.0 Short Max Torque Implanted:Qty: 1 on 08/08/2013 at [place] [facility] Left: Foot ORTHOHELIX SURGICAL DESIGNS MSD-010-4 0-030S / / 4.0 X 32.5 Short Max Torque Implanted:Qty: 1 on 08/08/2013 at [place] [facility] Left: Foot MSD-010-4 0-325S / / 4.0 X 28 Short Max Torque Implanted:Qty: 1 on 08/08/2013 at [place] [facility] Left: Foot ORTHOHELIX SURGICAL DESIGNS MSD-010-4 0-028S / / 4.0 X 22 Short Max Torque Implanted:Qty: 1 on 08/08/2013 at [place] [facility] Left: Foot ORTHOHELIX SURGICAL DESIGNS MSD-010-4 0-022S / / [place] Gold 4.0 - [id number] Implanted:Qty: 1 on 08/08/2013 at [place] [facility] Left: Foot ORTHOHELIX SURGICAL DESIGNS CSS-500-4 0A / / Plate Lps Alpha 2 Slot - [id number] Implanted:Qty: 1 on 08/08/2013 at [place] [facility] Left: Foot ORTHOHELIX SURGICAL DESIGNS MXL-002-2 A / / Screw Variable 3.5 X 12mm - [id number] Implanted:Qty: 1 on 08/08/2013 at [place] [facility] Left: Foot ORTHOHELIX SURGICAL DESIGNS RAKESH-031-3 5-12 / / Screw Variable 3.5 X 18mm - [id number] Implanted:Qty: 1 on 08/08/2013 at [place] [facility] Left: Foot ORTHOHELIX SURGICAL DESIGNS RAKESH-031-3 5-18 / / documented as of this encounter Procedures Procedure Name Priority Date/Time Associated Diagnosis Comments RADIOLOGY EXAM - GENERAL RAD (IMAGES ONLY,NO REPORT) Routine 03/15/2024 6:40 PM EST documented in this encounter Results * RADIOLOGY EXAM - GENERAL RAD (IMAGES ONLY,NO REPORT) (03/15/2024 6:40 PM EST) 03/15/2024 6:30 PM EST Narrative Scheduling, Silent - 03/23/2024 9:49 PM EST This is an imaging study not interpreted or resulted by a [facility] or [facility] contracted radiologist. us Ronald Cortes MD RADIOLOGY [...] Power of Attor elizabeth? No Care Teams Manager Applied Relationship Specialty Start Date End Date Ronald Cortes MD [address] [place] [address] PCP - General 06/10/02 documented as of this encounter
--- OUTSIDE RECORDS SUMMARY | 2024-03-26 01:01 | External Medical Summary | Summary of Care ---
Author Name Unknown Organization [facility] Address [address] [facility] [address] Phone [phone] Care Team Providers Care Academic Department Chair Name Role Phone Ronald Cortes MD Primary Care Provider [phone] Encounter Details Date Type Department Care Team (Late st Contact Info) Description 03/23/2024 Orders Only [facility] [address] [facility] [place] [address] Ronald Cortes MD [address] [place] [address] Allergies Active Allergy Reactions Criticality Noted Date [...] headache 1 Tab 0 07/28/19 14 Active [place]-3 Fatty Acids (FISH OIL) 1000 MG Capsule [...] Cough. 54 g 3 02/08/20 Active Tiotropium [place] Monohydrate 18 MCG Inhalation Capsule (Spiriva [...] stent 07/01/2023 Coronary artery disease invo lving [place] coronary artery of [place] heart without angina pectoris 07/01/2023 Hematuria [...] file Not on file Not on file Attractions Associate Not on file Not on file Not [...] Office Visit [facility] [address] [place] [address] Hitesh Gordillo, [address] [place] [address] 05/23/2024 2:00 PM EST Office Visit Pulmonary Medicine, [facility] [address] [facility] [place] [address] Marbin Serrano MD [address] [place] [address] 06/07/2024 8:30 AM EST Office Visit Cardiology, [facility] [address] [place] [address] Pepe Lennon DO [address] [facility] [place] [address] 07/13/2024 3:30 PM EDT Imaging Radiology, [place] [id number] [facility] [place] [address] Scheduled Procedures Name Priority Associated Diagnoses Date/Ti [...] D LEVEL ONCE IN A LIFETIME-USE SMARTSET# 24399 Completed 03/22/2015 Pneumococcal Vaccine: 65+ Years Completed [...] this encounter Medical Devices Implanted Type Area Computer Engineering Technologist Device Identifier Shelf Expiration Date Model / Serial / Lot Chip Cancellous [facility] 023206 - [id number] [place]ed:Qty: 1 [place] 08/08/2013 [place] [facility] [place] Left: Foot MUSCULOSKELETAL TRANSPLANT FND 07/24/2015 [id number] / [id number] / Screw Nonlock 3.5 X 24 - [id number] Implanted:Qty: 1 on 08/08/2013 [place] [facility] [place]: Foot ORTHOHELIX SURGICAL DESIGNS BRINE PROCESS OPERATOR-011-3 5-24 / / Screw Locking 3.5 X 16 - [id number] Implanted:Qty: 2 on 08/08/2013 [place] [facility] [place]: Foot ORTHOHELIX SURGICAL DESIGNS BRINE PROCESS OPERATOR-021-3 5-16 / / Plate 6 Hole Beta Mxl-0026 - [id number] Implanted:Qty: 1 on 08/08/2013 [place] [facility] [place]: Foot ORTHOHELIX SURGICAL DESIGNS MXL-0026 / / Screw Locking 3.5 X 20 - [id number] Implanted:Qty: 1 on 08/08/2013 [place] [facility] [place]: Foot ORTHOHELIX SURGICAL DESIGNS BRINE PROCESS OPERATOR-021-3 5-20 / / Screw Nonlock 3.5 X 16 - [id number] Implanted:Qty: 1 on 08/08/2013 [place] [facility] [place]: Foot ORTHOHELIX SURGICAL DESIGNS BRINE PROCESS OPERATOR-011-3 5-16 / / Screw Nonlock 3.5 X 18 - [id number] Implanted:Qty: 1 on 08/08/2013 [place] [facility] [place]: Foot ORTHOHELIX SURGICAL DESIGNS BRINE PROCESS OPERATOR-011-3 5-18 / / Screw Nonlock 3.5 X 14 - [id number] Implanted:Qty: 1 on 08/08/2013 [place] [facility] [place]: Foot ORTHOHELIX SURGICAL DESIGNS BRINE PROCESS OPERATOR-011-3 5-14 / / 4.0 X 3.0 Short Max Torque Implanted:Qty: 1 on 08/08/2013 [place] [facility] [place] Left: Foot ORTHOHELIX SURGICAL DESIGNS MSD-010-4 0-030S / / 4.0 X 32.5 Short Max Torque Implanted:Qty: 1 on 08/08/2013 [place] [facility] [place] Left: Foot MSD-010-4 0-325S / / 4.0 X 28 Short Max Torque Implanted:Qty: 1 on 08/08/2013 [place] [facility] [place]: Foot ORTHOHELIX SURGICAL DESIGNS MSD-010-4 0-028S / / 4.0 X 22 Short Max Torque Implanted:Qty: 1 on 08/08/2013 [place] [facility] [place] Left: Foot ORTHOHELIX SURGICAL DESIGNS MSD-010-4 0-022S / / [place] 4.0 - [id number] Implanted:Qty: 1 on 08/08/2013 [place] [facility] [place] Left: Foot ORTHOHELIX SURGICAL DESIGNS CSS-500-4 0A / / Plate Lps Alpha 2 Slot - [id number] Implanted:Qty: 1 on 08/08/2013 [place] [facility] [place] Left: Foot ORTHOHELIX SURGICAL DESIGNS MXL-002-2 A / / Screw Variable 3.5 X 12mm - [id number] Implanted:Qty: 1 on 08/08/2013 [place] [facility] [place]: Foot ORTHOHELIX SURGICAL DESIGNS RAKESH-031-3 5-12 / / Screw Variable 3.5 X 18mm - [id number] Implanted:Qty: 1 on 08/08/2013 [place] [facility] [place]: Foot ORTHOHELIX SURGICAL DESIGNS RAKESH-031-3 5-18 / / documented as of this encounter Procedures Procedure Name Priority Date/Time Associated Diagnosis Comments FVC SCREENING SPIROMETRY Routine 03/18/2024 documented in this encounter Results * FVC SCREENING SPIROMETRY (03/18/2024) 03/18/2024 us History Per Patient MEDICINE Final Result OUTSIDE LAB (SEE SCANNED REPORT) documented in this encounter Advance Directives * [...] Power of Attor elizabeth? No Care Teams Academic Department Chair Relationship Specialty Start Date End Date Ronald Cortes MD [address] [place] [address] PCP - General 06/10/02 documented as of this encounter
--- OUTSIDE RECORDS SUMMARY | 2024-03-26 01:01 | External Medical Summary | Summary of Care ---
Author Name Unknown Organization [facility] Address [address] [place] [address] Phone [phone] Care Team Providers Care Anesthesiologist Assistant Certified Name Role Phone Ronald Cortes MD Primary Care Provider [phone] Reason for Visit * Reason Onset Date Comments Hospital Follow-Up 03/08/2024 Encounter Details Date Type Department Care Team (Late st Contact Info) Description 03/08/2024 Telephone [facility] Medicine [address] [place] [address] Paty Liu MD [address] [place] [address] Hospital Follow-Up Allergies Active Allergy Reactions Criticality Noted Date Comments Bee Venom Anaphylaxis High 02/27/2006 Doxycycline Low 08/04/2023 Intolerant, GI upset documented as of this encounter (statuses as of 03/17/2024) Medications CALCIUM + D 600-200 MG-UNIT PO TABS 1 BID 0 03/13/20 06 Active MULTIVITAMINS PO TABS daily 0 03/13/20 06 Active ACETAMINOPHEN 325 MG PO TABSIndications:IN TERFACED RESULT,Pneumothora x 2 Tab Oral Every 6 hours as needed for fever, pain, headache 1 Tab 0 07/28/19 14 Active [place]-3 Fatty Acids (FISH OIL) 1000 MG Capsule [...] Cough. 54 g 3 02/08/20 Active Tiotropium [place] Monohydrate 18 MCG Inhalation Capsule (Spiriva HandiHaler) [...] as of this encounter (statuses as of 03/17/2024) Active Problems Problem Noted Date Diagnosed Date History of atrial fibrillation 02/08/2024 Gait difficulty 02/08/2024 Chronic respiratory failure with hypoxia 024 COPD, group B, by GOLD 2017 classification 09/20 Overview: Per COPD GOLD Classification Acquired hypothyroidism 07/19/2023 History of coronary angioplasty with insertion o f stent 07/01/2023 Coronary artery disease invo lving [place] coronary artery of [place] heart without angina pectoris 07/01/2023 Hematuria of undiagnosed cause 07/12/2019 Tobacco use disorder 12/21/2017 Chronic nonspecific lung disease 06/16/2017 HTN, goal below 150/90 11/16/2015 Osteoporosis 12/28/2014 Dyslipidemia, goal LDL below 100 06/10/2010 Generalized osteoarthritis of multiple sites 02/2011 GENERALIZED ANXIETY DIS 12/05/2004 COMMON MIGRAINE WITHOUT MENTION OF INTRACTABLE M IGRAINE documented as of this encounter (statuses as of 03/17/2024) Resolved Problems Problem Noted Date Diagnosed Date [...] as of this encounter (statuses as of 03/17/2024) Immunizations Name Administration Dates Next Due COVID-19, [...] file Not on file Not on file Rice Drier Not on file Not on file Not [...] encounter Miscellaneous Notes * Telephone Encounter - Anahi Staton RN - 03/17/2024 3:28 PM EST Noted. Appreciate input. Previous note corrected. * Telephone Encounter - Ronald Elaine PA-C - 03/16/2024 4:22 PM EST Patient hospitalized with sepsis. Cardiology consultation requested due to elevated troponin, type 2 NSTEMI. Conservative medical management recommended. Amiodarone discontinued during hospitalization Patient readmitted to [facility] March 15, 2024, ongoing. Would keep Cardiology follow-up as scheduled for now Ronald Elaine PA-C Department of Cardiology * Telephone Encounter - Anahi Staton RN - 03/16/2024 4:12 PM EST Chart reviewed. Cardiology consult performed 03/03/24 by Ronald Elaine PA-C at [facility]. Correction-- Amiodarone discontinued during admission. Ronald/Dr. Lennon, follow up scheduled for 06/07/24. Please advise on appropriate hospital follow up time frame. * Telephone Encounter - Virgilio Perez OSA [...] Description 04/28/2024 1:00 PM EST [facility] [place] [address] Hitesh Gordillo, [place] [address] 05/23/2024 2:00 PM EST Office Visit Pulmonary Medicine, [facility] [address] [facility] [place] [address] Marbin Serrano MD [address] [facility] [place] [address] 06/07/2024 8:30 AM EST Office Visit Cardiology, [facility] [address] [place] [address] Pepe Lennon, [address] [place] [address] 07/13/2024 3:30 PM EDT Imaging Radiology, [place] [address] [facility] [place] [address] Scheduled Procedures Name Priority Associated Diagnoses Date/Ti me COLONOSCOPY FLEXIBLE PROXIMA L DIAGNOSTIC Recall Encounter for screening colonoscopy Health Maintenance Due Date Last Done Comments DISCUSS TOBACCO CESSATION (REFER TO SMARTSET #1340) 1950 Alpha-1 Antitrypsin 1967 Cologuard 1994 Sigmoidoscopy [...] D LEVEL ONCE IN A LIFETIME-USE SMARTSET# 77387 Completed 03/22/2015 Pneumococcal Vaccine: 65+ Years Completed [...] this encounter Medical Devices Implanted Type Area Garbage Truck Driver Device Identifier Shelf Expiration Date Model / Serial / Lot Chip Cancellous [facility] 073715 - [id number] Implanted:Qty: 1 on 08/08/2013 [place] [facility] [place] - [place] Left: Foot MUSCULOSKELETAL TRANSPLANT FND 07/24/2015 [id number] / [id number] / Screw Nonlock 3.5 X 24 - [id number] Implanted:Qty: 1 on 08/08/2013 [place] [facility] [place]: Foot ORTHOHELIX SURGICAL DESIGNS DESKTOP SUPPORT ASSOCIATE-011-3 5-24 / / Screw Locking 3.5 X 16 - [id number] Implanted:Qty: 2 on 08/08/2013 [place] [facility] [place]: Foot ORTHOHELIX SURGICAL DESIGNS DESKTOP SUPPORT ASSOCIATE-021-3 5-16 / / Plate 6 Hole Beta Mxl-0026 - [id number] Implanted:Qty: 1 on 08/08/2013 [place] [facility] [place]: Foot ORTHOHELIX SURGICAL DESIGNS MXL-0026 / / Screw Locking 3.5 X 20 - [id number] Implanted:Qty: 1 on 08/08/2013 [place] [facility] [place]: Foot ORTHOHELIX SURGICAL DESIGNS DESKTOP SUPPORT ASSOCIATE-021-3 5-20 / / Screw Nonlock 3.5 X 16 - [id number] Implanted:Qty: 1 on 08/08/2013 [place] [facility] [place]: Foot ORTHOHELIX SURGICAL DESIGNS DESKTOP SUPPORT ASSOCIATE-011-3 5-16 / / Screw Nonlock 3.5 X 18 - [id number] Implanted:Qty: 1 on 08/08/2013 [place] [facility] [place]: Foot ORTHOHELIX SURGICAL DESIGNS DESKTOP SUPPORT ASSOCIATE-011-3 5-18 / / Screw Nonlock 3.5 X 14 - [id number] Implanted:Qty: 1 on 08/08/2013 [place] [facility] [place] Left: Foot ORTHOHELIX SURGICAL DESIGNS DESKTOP SUPPORT ASSOCIATE-011-3 5-14 / / 4.0 X 3.0 Short Max Torque Implanted:Qty: 1 on 08/08/2013 [place] [facility] [place] Left: Foot ORTHOHELIX SURGICAL DESIGNS MSD-010-4 0-030S / / 4.0 X 32.5 Short Max Torque Implanted:Qty: 1 on 08/08/2013 [place] [facility] [place] Left: Foot MSD-010-4 0-325S / / 4.0 X 28 Short Max Torque Implanted:Qty: 1 on 08/08/2013 [place] [facility] [place] Left: Foot ORTHOHELIX SURGICAL DESIGNS MSD-010-4 0-028S / / 4.0 X 22 Short Max Torque Implanted:Qty: 1 on 08/08/2013 [place] [facility] [place] Left: Foot ORTHOHELIX SURGICAL DESIGNS MSD-010-4 0-022S / / [place] Gold 4.0 - [id number] Implanted:Qty: 1 on 08/08/2013 [place] [facility] [place] Left: Foot ORTHOHELIX SURGICAL DESIGNS CSS-500-4 0A / / Plate Lps Alpha 2 Slot - [id number] Implanted:Qty: 1 on 08/08/2013 [place] [facility] [place] Left: Foot ORTHOHELIX SURGICAL DESIGNS MXL-002-2 A / / Screw Variable 3.5 X 12mm - [id number] Implanted:Qty: 1 on 08/08/2013 [place] [facility] [place] Left: Foot ORTHOHELIX SURGICAL DESIGNS RAKESH-031-3 5-12 / / Screw Variable 3.5 X 18mm - [id number] Implanted:Qty: 1 on 08/08/2013 [place] [facility] [place] Left: Foot ORTHOHELIX SURGICAL DESIGNS RAKESH-031-3 5-18 [...] Power of Attor elizabeth? No Care Teams Anesthesiologist Assistant Certified Relationship Specialty Start Date End Date Ronald Cortes MD [address] [place] [address] PCP - General 06/10/02 documented as of this encounter
--- OUTSIDE RECORDS SUMMARY | 2024-03-26 01:01 | External Medical Summary | Summary of Care ---
Author Name Unknown Organization [facility] Address [address] [place] [address] Phone [phone] Care Team Providers Care Commercial Lease Administrator Name Role Phone Ronald Cortes MD Primary Care Provider [phone] Reason for Visit * Reason Onset Date Comments Order Request 12/16/2023 Encounter Details Date Type Department Care Team (Late st Contact Info) Description 12/16/[address] [address] Ronald Cortes MD [address] [place] [id number] Order Request Allergies Active Allergy Reactions Criticality Noted Date Comments Bee Venom Anaphylaxis High 02/27/2006 Doxycycline Low 08/04/2023 Intolerant, GI upset documented as of this encounter (statuses as of 03/16/2024) Medications CALCIUM + D 600-200 MG-UNIT PO TABS 1 BID 0 03/13/20 06 Active MULTIVITAMINS PO TABS daily 0 03/13/20 06 Active ACETAMINOPHEN 325 MG PO TABSIndications:IN TERFACED RESULT,Pneumothora x 2 Tab Oral Every 6 hours as needed for fever, pain, headache 1 Tab 0 07/28/19 14 Active [place]lis-3 Fatty Acids (FISH OIL) 1000 MG Capsule [...] 5 07/01/19 24 Discontin ued(Refil l) Tiotropium [place] Monohydrate 18 MCG Inhalation Capsule (Spiriva HandiHaler) INHALE THE CONTENTS OF 1 CAPSULE EVERY DAY VIA HANDIHALER (DO NOT SWALLOW) 90 Capsule 3 09/03/19 24 Discontin ued(Refil l) Carvedilol 12.5 MG Oral Tablet (Coreg)Indications :Dyslipidemia, goal LDL below 100,HTN, goal below 150/90 TAKE 1 AND 1/2 TABLETS BY MOUTH TWICE DAILY 270 Tablet 3 11/28/19 24 Discontin ued(Disch arged) Pantoprazole Sodium 40 MG Oral Tablet Delayed [...] EVERY 12 HOURS FOR 4 DAYS 12/09/19 Discontin ued(Patie nt preferenc e/discont inuation) Hospital, [...] as of this encounter (statuses as of 03/16/2024) Active Problems Problem Noted Date Diagnosed Date History of atrial fibrillation 02/08/2024 Gait difficulty 02/08/2024 Chronic respiratory failure with hypoxia 024 COPD, group B, by GOLD 2017 classification 09/20 Overview: Per COPD GOLD Classification Acquired hypothyroidism 07/19/2023 History of coronary angioplasty with insertion o f stent 07/01/2023 Coronary artery disease invo lving [place] coronary artery of [place] heart without angina pectoris 07/01/2023 Hematuria of undiagnosed cause 07/12/2019 Tobacco use disorder 12/21/2017 Chronic nonspecific lung disease 06/16/2017 HTN, goal below 150/90 11/16/2015 Osteoporosis 12/28/2014 Dyslipidemia, goal LDL below 100 06/10/2010 Generalized osteoarthritis of multiple sites 02/2011 GENERALIZED ANXIETY DIS 12/05/2004 COMMON MIGRAINE WITHOUT MENTION OF INTRACTABLE M IGRAINE documented as of this encounter (statuses as of 03/16/2024) Resolved Problems Problem Noted Date Diagnosed Date [...] as of this encounter (statuses as of 03/16/2024) Immunizations Name Administration Dates Next Due Pneumococcal [...] file Not on file Not on file Sodder Not on file Not on file Not [...] Telephone Encounter - Jaylin Jarvis LPN - 12/29/2023 9:16 AM EDT I checked the [facility] order and the last update from them stated they were unable to reach thepatient to set up delivery. I contacted the daughter and she states they no longer need the [facility] one they received one from the hospital. * Telephone Encounter - Moy Boyce CPhT - 12/25/2023 2:16 PM EDT Pt calling to state that they have been trying to get things scheduled to get the nebulizer from [facility] for the last 3 days, but [facility] still has not sent out the nebulizer. Pt is requesting that the order be sent to [facility] instead, fax is [phone]. Pt is requesting high priority as she would like to get this before the weekend as she does not want to end up back in the hospital. Pt's daughter can be reached at [phone] if there are any additional questions. Thank you, Moy Boyce Bank Vault Clerk [facility] 12/25/2023,2:25 PM * Telephone Encounter - Jaylin Jarvis LPN - 12/18/2023 10:39 AM EDT Checked status of order for Nebulizer and was informed the order is currently with the scheduling team to call and set up delivery and patient could call their scheduling team Thursday through Thursday 8:30-5 pm @ [phone] if they wish to speed the process up. I attempted to call the patient, no answer lm that I was calling with an update in regards to nebulizer and that I would call her daughteras well. I called the daughter and informed her of the message and she states she will call to set up the delivery. * Telephone Encounter - Jaylin Jarvis LPN - 12/16/2023 12:50 PM EDT Submitted order for Nebulizer to [facility] through [facility] system and had provider sign orders. Status of order says Supplier reviewing. documented in this encounter Plan of Treatment Upcoming Encounters Date Type Department Care Team (Late st Contact Info) Description 04/28/2024 1:00 PM EST Office Visit [facility] [address] [address] Hitesh Gordillo, [address] [place] [address] 05/23/2024 2:00 PM EST Office Visit Pulmonary Medicine, [facility] [address] [facility] [place] [address] Marbin Serrano MD [address] [place] [address] 06/07/2024 8:30 AM EST Office Visit Cardiology, [facility] [address] [place] [address] Pepe Lennon, DO [address] [place] [address] 07/13/2024 3:30 PM EDT Imaging Radiology, [place] [id number] [facility] [place] [address] Scheduled Procedures Name Priority Associated Diagnoses Date/Ti [...] D LEVEL ONCE IN A LIFETIME-USE SMARTSET# 23281 Completed 03/22/2015 Pneumococcal Vaccine: 65+ Years Completed [...] this encounter Medical Devices Implanted Type Area Auto Wheel Alignment Specialist Device Identifier Shelf Expiration Date Model / Serial / Lot Chip Cancellous [facility] 186311 - [id number] Implanted:Qty: 1 on 08/08/2013 at [place] [facility] Tissue - Human Left: Foot MUSCULOSKELETAL TRANSPLANT FND 07/24/2015 [id number] / [id number] / Screw Nonlock 3.5 X 24 - [id number] Implanted:Qty: 1 on 08/08/2013 at [place] [facility] Left: Foot ORTHOHELIX SURGICAL DESIGNS COLLATERAL ANALYST-011-3 5-24 / / Screw Locking 3.5 X 16 - [id number] Implanted:Qty: 2 on 08/08/2013 at [place] [facility] Left: Foot ORTHOHELIX SURGICAL DESIGNS COLLATERAL ANALYST-021-3 5-16 / / Plate 6 Hole Beta Mxl-0026 - [id number] Implanted:Qty: 1 on 08/08/2013 at [place] [facility] Left: Foot ORTHOHELIX SURGICAL DESIGNS MXL-0026 / / Screw Locking 3.5 X 20 - [id number] Implanted:Qty: 1 on 08/08/2013 at [place] [facility] Left: Foot ORTHOHELIX SURGICAL DESIGNS COLLATERAL ANALYST-021-3 5-20 / / Screw Nonlock 3.5 X 16 - [id number] Implanted:Qty: 1 on 08/08/2013 at [place] [facility] Left: Foot ORTHOHELIX SURGICAL DESIGNS COLLATERAL ANALYST-011-3 5-16 / / Screw Nonlock 3.5 X 18 - [id number] Implanted:Qty: 1 on 08/08/2013 at [place] [facility] Left: Foot ORTHOHELIX SURGICAL DESIGNS COLLATERAL ANALYST-011-3 5-18 / / Screw Nonlock 3.5 X 14 - [id number] Implanted:Qty: 1 on 08/08/2013 at [facility] Left: Foot ORTHOHELIX SURGICAL DESIGNS COLLATERAL ANALYST-011-3 5-14 / / 4.0 X 3.0 Short [...] / / [place] Gold 4.0 - [id number] Implanted:Qty: 1 on 08/08/2013 at [place] [facility] Left: Foot ORTHOHELIX SURGICAL DESIGNS CSS-500-4 0A / / Plate Lps Alpha 2 Slot - [id number] Implanted:Qty: 1 on 08/08/2013 at [place] [facility] Left: Foot ORTHOHELIX SURGICAL DESIGNS MXL-002-2 A / / Screw Variable 3.5 X 12mm - [id number] Implanted:Qty: 1 on 08/08/2013 at [place] [facility] Left: Foot ORTHOHELIX SURGICAL DESIGNS RAKESH-031-3 5-12 / / Screw Variable 3.5 X 18mm - [id number] Implanted:Qty: 1 on 08/08/2013 at [facility] [...] Power of Attor elizabeth? No Care Teams Commercial Lease Administrator Relationship Specialty Start Date End Date Ronald Cortes MD [address] [place] [address] PCP - General 06/10/02 documented as of this encounter
--- OUTSIDE RECORDS SUMMARY | 2024-03-26 01:02 | External Medical Summary | Summary of Care ---
Author Name Unknown Organization [facility] Address [address] [place] [address] Phone [phone] Care Team Providers Care Trackman Name Role Phone Ronald Cortes MD Primary Care Provider [phone] Reason for Visit * Reason Onset Date Comments Hospital Follow-Up 03/08/2024 Encounter Details Date Type Department Care Team (Late st Contact Info) Description 03/08/2024 Telephone [facility] Medicine [address] [place] [address] Paty Liu MD [address] [place] [address] Hospital Follow-Up Allergies Active Allergy Reactions Criticality [...] headache 1 Tab 0 07/28/19 14 Active Duke-3 Fatty Acids (FISH OIL) 1000 MG Capsule [...] Cough. 54 g 3 02/08/20 Active Tiotropium [place] Monohydrate 18 MCG Inhalation Capsule (Spiriva HandiHaler) [...] stent 07/01/2023 Coronary artery disease invo lving [place] coronary artery of [place]er heart without angina pectoris 07/01/2023 Hematuria of [...] 03/16/2024) Immunizations Name Administration Dates Next Due COVID-19, [...] file Not on file Not on file Psychologist Experimental Not on file Not on file Not [...] Author No 08/08/2013 9:56 PM EDT Barry oDherty RN documented in this encounter Miscellaneous Notes * Telephone Encounter - Ronald Elaine PA-C - 03/16/2024 4:22 PM EST Patient hospitalized with sepsis. Cardiology consultation requested due to elevated troponin, type 2 NSTEMI. Conservative medical management recommended. Amiodarone discontinued during hospitalization Patient readmitted to [facility] March 15, 2024, ongoing. Would keep Cardiology follow-up as scheduled for now Ronald Elaine PA-C Department of Cardiology * Telephone Encounter - Anahi Staton RN - 03/16/2024 4:12 PM EST Chart reviewed. Cardiology consult performed 03/03/24 by Ronald Elaine PA-C at [facility]. Amiodarone restarted during admission. Ronald/Dr. Lennon, follow up scheduled [...] Description 04/28/2024 1:00 PM EST Office Visit [facility] [address] [place] [address] Hitesh Gordillo, DO [address] [place] [address] 05/23/2024 2:00 PM EST Office Visit Pulmonary Medicine, [facility] [address] [facility] [place] [address] Marbin Serraon MD [address] [place] [address] [address] 06/07/2024 8:30 AM EST Office Visit Cardiology, [facility] [address] [facility] [place] [address] Pepe Lennon, [address] [facility] [place] [address] 07/13/2024 3:30 PM EDT Imaging Radiology, [facility] [address] [facility] [place] [address] Scheduled Procedures Name Priority Associated Diagnoses Date/Ti me COLONOSCOPY FLEXIBLE PROXIMA L DIAGNOSTIC Recall Encounter for screening colonoscopy Health Maintenance Due Date Last Done Comments DISCUSS TOBACCO CESSATION (REFER TO SMARTSET #7485) 1950 Alpha-1 Antitrypsin 1967 Cologuard 1994 Sigmoidoscopy [...] D LEVEL ONCE IN A LIFETIME-USE SMARTSET# 53212 Completed 03/22/2015 Pneumococcal Vaccine: 65+ Years Completed [...] this encounter Medical Devices Implanted Type Area Vp Rheumatology Device Identifier Shelf Expiration Date Model / Serial / Lot Chip Cancellous c [id number] - [id number] Implanted:Qty: 1 on 08/08/2013 at [place] [facility] Tissue - Human Left: Foot MUSCULOSKELETAL TRANSPLANT FND 07/24/2015 056985 / [id number] / Screw Nonlock 3.5 X 24 - [id number] Implanted:Qty: 1 on 08/08/2013 at [place] [facility] Left: Foot ORTHOHELIX SURGICAL DESIGNS COOPERER-011-3 5-24 / / Screw Locking 3.5 X 16 - [id number] Implanted:Qty: 2 on 08/08/2013 at [place] [facility] Left: Foot ORTHOHELIX SURGICAL DESIGNS COOPERER-021-3 5-16 / / Plate 6 Hole Beta Mxl-0026 - [id number] Implanted:Qty: 1 on 08/08/2013 at [place] [facility] Left: Foot ORTHOHELIX SURGICAL DESIGNS MXL-0026 / / Screw Locking 3.5 X 20 - [id number] Implanted:Qty: 1 on 08/08/2013 at [place] [facility] Left: Foot ORTHOHELIX SURGICAL DESIGNS COOPERER-021-3 5-20 / / Screw Nonlock 3.5 X 16 - [id number] Implanted:Qty: 1 on 08/08/2013 at [facility] Left: Foot ORTHOHELIX SURGICAL DESIGNS COOPERER-011-3 5-16 / / Screw Nonlock 3.5 X 18 - [id number] Implanted:Qty: 1 on 08/08/2013 at [place] [facility] Left: Foot ORTHOHELIX SURGICAL DESIGNS COOPERER-011-3 5-18 / / Screw Nonlock 3.5 X 14 - [id number] Implanted:Qty: 1 on 08/08/2013 at [place] [facility] Left: Foot ORTHOHELIX SURGICAL DESIGNS COOPERER-011-3 5-14 / / 4.0 X 3.0 Short [...] / / [place] Gold 4.0 - [id number] Implanted:Qty: 1 on 08/08/2013 at [place] [facility] Left: Foot ORTHOHELIX SURGICAL DESIGNS CSS-500-4 0A / / Plate Lps Alpha 2 Slot - [id number] Implanted:Qty: 1 on 08/08/2013 at [place] [facility] Left: Foot ORTHOHELIX SURGICAL DESIGNS MXL-002-2 A / / Screw Variable 3.5 X 12mm - [id number] Implanted:Qty: 1 on 08/08/2013 at [place] [facility] Left: Foot ORTHOHELIX SURGICAL DESIGNS RAKESH-031-3 5-12 / / Screw Variable 3.5 X 18mm - [id number] Implanted:Qty: 1 on 08/08/2013 at [facility] [...] Power of Attor elizabeth? No Care Teams Trackman Relationship Specialty Start Date End Date Ronald Cortes MD [address] [place] [address] PCP - General 06/10/02 documented as of this encounter
--- OUTSIDE RECORDS SUMMARY | 2024-03-26 01:02 | External Medical Summary | Summary of Care ---
Author Name Unknown Organization [facility] Address [address] [place] [address] Phone [phone] Care Team Providers Care Commission Auditor Name Role Phone Ronald Cortes MD Primary Care Provider [phone] Reason for Visit * Reason Onset Date Comments Hospital Follow-Up 03/08/2024 Encounter Details Date Type Department Care Team (Late st Contact Info) Description 03/08/2024 Telephone [facility] Medicine [address] [place] [address] Paty Liu MD [address] [place] [address] Hospital Follow-Up Allergies Active Allergy Reactions Criticality [...] headache 1 Tab 0 07/28/19 14 Active [place]-3 Fatty Acids (FISH OIL) 1000 MG Capsule [...] Cough. 54 g 3 02/08/20 Active Tiotropium [place] Monohydrate 18 MCG Inhalation Capsule (Spiriva HandiHaler) [...] file Not on file Not on file Educational Specialist Not on file Not on file Not [...] performed 03/03/24 by Ronald Elaine PA-C at [facility]. Amiodarone restarted during admission. Ronald/Dr. Lennon, [...] Description 04/28/2024 1:00 PM EST Office Visit [facility] [address] [place] [address] Hitesh Gordillo, [address] [place] [address] 05/23/2024 2:00 PM EST Office Visit Pulmonary Medicine, [facility] [address] [place] [address] Marbin Serrano MD [address] [place] [facility] [place] [address] 06/07/2024 8:30 AM EST Office Visit Cardiology, [facility] [address] [facility] [address] Pepe Lennon, DO [address] [place] [address] 07/13/2024 3:30 PM EDT Imaging Radiology, [address] [place] [address] Scheduled Procedures Name Priority Associated Diagnoses Date/Ti me COLONOSCOPY FLEXIBLE PROXIMA L DIAGNOSTIC Recall Encounter for screening colonoscopy Health Maintenance Due Date Last Done Comments DISCUSS TOBACCO CESSATION (REFER TO SMARTSET #7677) 1950 Alpha-1 Antitrypsin 1967 Cologuard 1994 Sigmoidoscopy 1994 Zoster Vaccines (2 of 3) 03/19/2012 01/23/2012 Adult Wellness Visit 2015 DXA Scan 12/27/2016 12/27/2014, 03/13, 03/29/2007, Additional history exists Fecal Occult Blood Test 04/23/2018 04/23/19, 12/21/2000, 10/31/1999 GFR 06/30/2024 07/01/2023, 03/13, 03/09/2023, [...] D LEVEL ONCE IN A LIFETIME-USE SMARTSET# 17180 Completed 03/22/2015 Pneumococcal Vaccine: 65+ Years Completed [...] this encounter Medical Devices Implanted Type Area Loss Control Representative Device Identifier Shelf Expiration Date Model / Serial / Lot Chip Cancellous [facility] [id number] - [id number] Implanted:Qty: 1 on 08/08/2013 at [place] [facility] Tissue - Human Left: Foot MUSCULOSKELETAL TRANSPLANT FND 07/24/2015 156865 / [id number] / Screw Nonlock 3.5 X 24 - [id number] Implanted:Qty: 1 on 08/08/2013 at [place] [facility] Left: Foot ORTHOHELIX SURGICAL DESIGNS TURN OUT-011-3 5-24 / / Screw Locking 3.5 X 16 - [id number] Implanted:Qty: 2 on 08/08/2013 at [place] [facility] Left: Foot ORTHOHELIX SURGICAL DESIGNS TURN OUT-021-3 5-16 / / Plate 6 Hole Beta Mxl-0026 - [id number] Implanted:Qty: 1 on 08/08/2013 at [place] [facility] Left: Foot ORTHOHELIX SURGICAL DESIGNS MXL-0026 / / Screw Locking 3.5 X 20 - [id number] Implanted:Qty: 1 on 08/08/2013 at [place] [facility] Left: Foot ORTHOHELIX SURGICAL DESIGNS TURN OUT-021-3 5-20 / / Screw Nonlock 3.5 X 16 - [id number] Implanted:Qty: 1 on 08/08/2013 at [place] [facility] Left: Foot ORTHOHELIX SURGICAL DESIGNS TURN OUT-011-3 5-16 / / Screw Nonlock 3.5 X 18 - [id number] Implanted:Qty: 1 on 08/08/2013 at [place] [facility] Left: Foot ORTHOHELIX SURGICAL DESIGNS TURN OUT-011-3 5-18 / / Screw Nonlock 3.5 X 14 - [id number] Implanted:Qty: 1 on 08/08/2013 at [place] [facility] Left: Foot ORTHOHELIX SURGICAL DESIGNS TURN OUT-011-3 5-14 / / 4.0 X 3.0 Short [...] / / [place] Gold 4.0 - [id number] Implanted:Qty: 1 on 08/08/2013 at [place] [facility] Left: Foot ORTHOHELIX SURGICAL DESIGNS CSS-500-4 0A / / Plate Lps Alpha 2 Slot - [id number] Implanted:Qty: 1 on 08/08/2013 at [place] [facility] Left: Foot ORTHOHELIX SURGICAL DESIGNS MXL-002-2 A / / Screw Variable 3.5 X 12mm - [id number] Implanted:Qty: 1 on 08/08/2013 at [place] [facility] Left: Foot ORTHOHELIX SURGICAL DESIGNS RAKESH-031-3 5-12 / / Screw Variable 3.5 X 18mm - [id number] Implanted:Qty: 1 on 08/08/2013 at [facility] [...] Power of Attor elizabeth? No Care Teams Commission Auditor Relationship Specialty Start Date End Date Ronald Cortes MD [address] [place] [address] PCP - General 06/10/02 documented as of this encounter
[2024-03-26 06:41] LABS: Hemoglobin 7.2 g/dl (12.0-16.0); Mean Corpuscular Hgb Conc 32.7 g/dL (32.0-36.0); Mean Corpuscular Volume 97.8 fL (80.0-100.0); Mean Platelet Volume 8.3 fL (9.4-12.4); Platelet Count 431 K/uL (130-400); RDW Standard Deviation 52.7 fL (36.4-46.3); Red Blood Count 2.25 M/uL (4.20-5.40); White Blood Count 12.45 K/ul (4.8-10.8)
[2024-03-26] MEDS ORDERED: SODIUM CHLORIDE 0.9% 100 ML IV PRN (09:47)
[2024-03-26] MEDS ORDERED: SODIUM CHLORIDE 0.9% 50 ML IV PRN (09:47)
--- NOTE | 2024-03-26 13:14 | Hospitalist Progress Note ---
Date of Service March 26, 2024 Assessment & Plan (1) Fracture of distal end of left humerus: (2) PAF (paroxysmal atrial fibrillation): (3) HTN (hypertension): (4) Hypomagnesemia: (5) Chronic anemia: (6) Contusion of face: (7) Anticoagulant long-term use: (8) Acute blood loss anemia: (9) Contusion of left knee: (10) COPD (chronic obstructive pulmonary disease): Plan Patient continues to recover in the hospital after a fall with significant fracture of the humerus and acute on chronic anemia due to the blood loss with associated fracture. Heart rate slightly elevated with her atrial fibrillation, blood pressures running little bit low. Hemoglobin trending downward. Discussed blood transfusions with the patient. She had received transfusions while at [facility]. She is agreeable. Blood consent obtained Transfuse PRBCs Monitor labs in a.m. Continue therapies Continue current pain control Continue to pursue placement options. Admission and Anticipated Discharge Date Admission Date: March 24, 2024 Subjective Patient sitting in bed eating breakfast. Denies any acute symptoms. Pain is fairly well-controlled. Physical Exam Physical Exam: Constitutional: Alert, interactive HEENT: Mucous membranes moist., Large contusion left forehead, no surrounding redness Ecchymosis below both eyes and across nasal bridge Lungs: Clear to auscultation, decreased, no wheezes rales or rhonchi CV: S1-S2, regular Abdomen: Soft, nontender, nondistended Extremities: Left upper extremity in immobilizer with ecchymosis Neuro: No focal deficits Psych: Cooperative, normal mood Results & Data Results & Data Vital Signs (Past 12 Hours) Vital Signs Temp Pulse Pulse Resp BP Pulse Ox O2 Del Method 03/26/24 10:55 36.6 C 101 H 19 108/74 100 Nasal Cannula 03/26/24 08:00 Nasal Cannula 03/26/24 07:51 108 H 03/26/24 07:37 36.7 C 117 H 18 129/83 95 Nasal Cannula 03/26/24 03:02 36.8 C 102 H 18 110/61 99 Nasal Cannula 03/26/24 02:21 113 H O2 Flow Rate 03/26/24 10:55 3 03/26/24 08:00 3 03/26/24 07:51 03/26/24 07:37 3 03/26/24 03:02 3 03/26/24 02:21 Diagnostic Findings Reviewed imaging, laboratory and diagnostic studies. Pertinent findings as below. Hemoglobin 7.2, slowly trending down over the last couple days (1) Fracture of distal end of left humerus Encounter type: initial encounter Fracture type: closed (3) HTN (hypertension) Hypertension type: primary hypertension Qualified Code(s): I10 - Essential (primary) hypertension (6) Contusion of face Encounter type: initial encounter Qualified Code(s): S00.83XA - Contusion of other part of head, initial encounter
[2024-03-27 05:16] LABS: Hematocrit (blood only) 27.7 % (37.0-47.0); Mean Corpuscular Hemoglobin 31.1 pg (25.0-34.0); Mean Corpuscular Hgb Conc 32.5 g/dL (32.0-36.0); Mean Corpuscular Volume 95.8 fL (80.0-100.0); Mean Platelet Volume 8.1 fL (9.4-12.4); Platelet Count 434 K/uL (130-400); RDW Coefficient of Variation 16.3 % (11.5-14.5); Red Blood Count 2.89 M/uL (4.20-5.40); White Blood Count 11.72 K/ul (4.8-10.8)
[2024-03-27 05:26] LABS: BUN Creatinine Ratio 10.7 (10-20); Calcium 8.5 mg/dl (8.6-10.3); Creatinine Clr Calc Pharmacy 49.7 ml/min; Potassium 3.9 mmol/L (3.5-5.1)
--- NOTE | 2024-03-27 06:36 | Electrocardiogram Report ---
Test Reason : Blood Pressure : */* mmHG Vent. Rate : 120 BPM Atrial Rate : 122 BPM P-R Int : * ms QRS Dur : 88 ms QT Int : 296 ms P-R-T Axes : * 62 -81 degrees QTcB Int : 418 ms Atrial fibrillation with rapid ventricular response Nonspecific ST and T wave abnormality Abnormal ECG When compared with ECG of 15-Mar-2024 19:24, Atrial fibrillation has replaced Sinus rhythm Vent. rate has increased by 55 bpm Nonspecific T wave abnormality has replaced inverted T waves in Anterolateral leads QT has shortened Confirmed by Boston Salinas ([id number]) on 03/27/2024 6:36:39 AM Referred By: Gabriel Ponce Confirmed By: Boston Salinas
--- NOTE | 2024-03-27 06:39 | Electrocardiogram Report ---
Test Reason : Blood Pressure : */* mmHG Vent. Rate : 101 BPM Atrial Rate : 111 BPM P-R Int : * ms QRS Dur : 80 ms QT Int : 346 ms P-R-T Axes : * 56 -37 degrees QTcB Int : 448 ms Atrial fibrillation with rapid ventricular response Nonspecific T wave abnormality Abnormal ECG When compared with ECG of 25-Mar-2024 03:49, No significant change was found Confirmed by Boston Salinas ([id number]) on 03/27/2024 6:38:59 AM Referred By: Gabriel Ponce Confirmed By: Boston Salinas
[2024-03-27] MEDS: ACETAMINOPHEN 325 MG TAB PO PRN (08:35)
--- NOTE | 2024-03-27 11:47 | Hospitalist Progress Note ---
Date of Service March 27, 2024 Assessment & Plan (1) Fracture of distal end of left humerus: (2) PAF (paroxysmal atrial fibrillation): (3) HTN (hypertension): (4) Hypomagnesemia: (5) Chronic anemia: (6) Contusion of face: (7) Anticoagulant long-term use: (8) Acute blood loss anemia: (9) Contusion of left knee: (10) COPD (chronic obstructive pulmonary disease): Plan Patient status post fall with humeral fracture and significant blood loss associated with the fall. Hemoglobin improved after blood transfusion Continue current medications Continue therapies Continue to pursue rehab placement Monitor hemoglobin as needed Admission and Anticipated Discharge Date Admission Date: March 24, 2024 Subjective Sitting up in chair. Think she feels a little bit better after the blood transfusion yesterday. Physical Exam Physical Exam: Constitutional: Alert, sitting in chair HEENT: Mucous membranes moist., Contusion forehead and under both eyes slowly improving Lungs: Clear to auscultation, decreased, no wheezes rales or rhonchi CV: S1-S2, irregular Abdomen: Soft, nontender, nondistended Extremities: No significant edema, left upper extremity in immobilizer and posterior cast Neuro: No focal deficits Psych: Cooperative, normal mood Results & Data Results & Data Vital Signs (Past 12 Hours) Vital Signs Temp Pulse Resp BP BP Pulse Ox O2 Del Method 03/27/24 08:00 Nasal Cannula 03/27/24 08:00 36.5 C 75 16 156/67 H 99 Nasal Cannula 03/27/24 03:30 36.6 C 99 H 20 133/85 95 Nasal Cannula O2 Flow Rate 03/27/24 08:00 3 03/27/24 08:00 3 03/27/24 03:30 3 Diagnostic Findings WBCs 11.7 Hemoglobin 9.0 Platelets 434 BMP stable (1) Fracture of distal end of left humerus Encounter type: initial encounter Fracture type: closed (3) HTN (hypertension) Hypertension type: primary hypertension Qualified Code(s): I10 - Essential (primary) hypertension (6) Contusion of face Encounter type: initial encounter Qualified Code(s): S00.83XA - Contusion of other part of head, initial encounter
--- NOTE | 2024-03-28 14:36 | Hospitalist Progress Note ---
Date of Service March 28, 2024 Assessment & Plan (1) Fracture of distal end of left humerus: (2) PAF (paroxysmal atrial fibrillation): (3) HTN (hypertension): (4) Hypomagnesemia: (5) Chronic anemia: (6) Contusion of face: (7) Anticoagulant long-term use: (8) Acute blood loss anemia: (9) Contusion of left knee: (10) COPD (chronic obstructive pulmonary disease): Plan Patient continuing to recover from fall and subsequent humerus fracture Continue mobilization and follow-up with orthopedics as scheduled Continue therapies Blood pressure now significantly increased over the last 24 to 48 hours. Resume losartan 50 mg daily Monitor hemoglobin and electrolytes and renal function Communication with case management continue to pursue placement options, bed availability limited Updated patient's daughter via phone. [facility] ?? Admission and Anticipated Discharge Date Admission Date: March 24, 2024 Subjective No acute issues overnight. Patient denies any complaints. Physical Exam Physical Exam: Constitutional: Alert HEENT: Mucous membranes moist. Large contusion left forehead, bruising under eyes slowly getting better Lungs: Clear to auscultation, decreased, no wheezes rales or rhonchi CV: S1-S2, regular Abdomen: Soft, nontender, nondistended Extremities: No significant edema, left upper extremity in sling, contusion knee Neuro: No focal deficits Psych: Cooperative, normal mood Results & Data Results & Data Vital Signs (Past 12 Hours) Vital Signs Temp Pulse Resp BP Pulse Ox O2 Del Method O2 Flow Rate 03/28/24 11:58 Nasal Cannula 3 03/28/24 08:10 36.6 C 66 16 188/105 H 99 Nasal Cannula 3 (1) Fracture of distal end of left humerus Encounter type: initial encounter Fracture type: closed (3) HTN (hypertension) Hypertension type: primary hypertension Qualified Code(s): I10 - Essential (primary) hypertension (6) Contusion of face Encounter type: initial encounter Qualified Code(s): S00.83XA - Contusion of other part of head, initial encounter
[2024-03-28] MEDS: LOSARTAN POTASSIUM 50 MG TAB PO SCH (15:58)
[2024-03-29 07:02] LABS: Hematocrit (blood only) 27.7 % (37.0-47.0); Hemoglobin 8.6 g/dl (12.0-16.0); Mean Corpuscular Hemoglobin 30.7 pg (25.0-34.0); Mean Corpuscular Volume 98.9 fL (80.0-100.0); Mean Platelet Volume 8.2 fL (9.4-12.4); Platelet Count 453 K/uL (130-400); RDW Coefficient of Variation 16.9 % (11.5-14.5); RDW Standard Deviation 56.9 fL (36.4-46.3); White Blood Count 10.13 K/ul (4.8-10.8)
[2024-03-29 07:21] LABS: BUN Creatinine Ratio 12.5 (10-20); Calcium 8.2 mg/dl (8.6-10.3); Creatinine Clr Calc Pharmacy 58.2 ml/min; Potassium 4.4 mmol/L (3.5-5.1)
--- NOTE | 2024-03-29 12:52 | Hospitalist Progress Note ---
Date of Service March 29, 2024 Assessment & Plan (1) Fracture of distal end of left humerus: (2) PAF (paroxysmal atrial fibrillation): (3) HTN (hypertension): (4) Hypomagnesemia: (5) Chronic anemia: (6) Contusion of face: (7) Anticoagulant long-term use: (8) Acute blood loss anemia: (9) Contusion of left knee: (10) COPD (chronic obstructive pulmonary disease): Plan Patient status post fall with left humerus fracture, blood loss anemia multiple contusions. Transferred from [facility] to [facility] after patient underwent orthopedic surgery at [facility]. Continue current medications Continue therapies Follow-up with orthopedics as previously arranged Monitor hemoglobin intermittently Case management reports that [facility] has accepted patient for rehab. Awaiting insurance authorization. Ready for discharge when this is obtained. Admission and Anticipated Discharge Date Admission Date: March 24, 2024 Subjective Patient feels as though she is slowly improving Physical Exam Physical Exam: Constitutional: Alert HEENT: Mucous membranes moist. Large contusion left forehead seems to be getting a little bit smaller, bruising under eyes improving Lungs: Clear to auscultation, decreased, no wheezes rales or rhonchi CV: S1-S2, regular Abdomen: Soft, nontender, nondistended Extremities: No significant edema, left knee contusion and swelling significantly improved, swelling and bruising over left shoulder and arm significantly improved. Left upper extremity in immobilizer Neuro: No focal deficits, generally weak Psych: Cooperative, normal mood Results & Data Results & Data Vital Signs (Past 12 Hours) Vital Signs Temp Pulse Resp BP Pulse Ox O2 Del Method O2 Flow Rate 03/29/24 08:00 Nasal Cannula 3 03/29/24 07:20 36.5 C 64 18 172/96 H 100 Nasal Cannula 3 Diagnostic Findings Reviewed imaging, laboratory and diagnostic studies. Pertinent findings as below. Hemoglobin 8.6 Platelets 453 Sodium 134 Bicarb 35 Creatinine 0.64 (1) Fracture of distal end of left humerus Encounter type: initial encounter Fracture type: closed (3) HTN (hypertension) Hypertension type: primary hypertension Qualified Code(s): I10 - Essential (primary) hypertension (6) Contusion of face Encounter type: initial encounter Qualified Code(s): S00.83XA - Contusion of other part of head, initial encounter
[2024-03-29] MEDS: carvediloL 6.25 MG TAB PO SCH (21:14)
--- NOTE | 2024-03-29 23:11 | Communication Note ---
Date of Service: March 29, 2024 Made aware by RN of uncontrolled blood pressure. SBP 1 50-1 80s the last 48 hours. Heart rate 60 to 70s Patient asymptomatic as per RN. AP Hypertensive urgency Add amlodipine to regimen Will relay to AM provider.
[2024-03-29] MEDS: amLODIPine BESYLATE 5 MG TAB PO SCH (23:38)
[2024-03-30] MEDS: LOSARTAN POTASSIUM 50 MG TAB PO SCH (08:41)
--- NOTE | 2024-03-30 13:44 | Hospitalist Progress Note ---
Date of Service March 30, 2024 Assessment & Plan (1) Fracture of distal end of left humerus: Plan: Patient status post fall with left humerus fracture, blood loss anemia multiple contusions.- was transferred to [facility] for appropriate managemen t. Transferred from [facility] to [facility] after patient underwent orthopedic surgery at [facility]. Activity guidelines per ortho at [facility] --> LUE is coffee cup nonweightbearing, do not lift anything greater than a coffee cup. No pushing or pulling with the left arm. "Sling for comfort when out of bed. Left shoulder, finger range of motion as tolerated. Elevate left hand above elbow, and elbow above heart while in bed to decrease swelling." Keep the rigid cast/splint clean, dry and intact until seen in ortho clinic for f/u appt --> 04/01/2024 @ 10:45AM w/ Nelly Leach PA-C [[facility] in [place], [place]] Ortho recommends vitamin D3 50mcg/daily for a total of 8 weeks postop. May wrap the rigid cast/splint in a plastic bag to shower. PT/OT evals pending. PRN pain control, bowel regimen. Fall precautions. Pain is reasonably controlled with current medications Has been getting physical therapy and awaiting approval and transfer to rehab facility (2) PAF (paroxysmal atrial fibrillation): Plan: Chronic, stable. Eliquis restarted at [facility] - will continue. Continue Coreg. Rate is controlled and denies any symptoms (3) HTN (hypertension): Plan: Continue home BP medications - including Coreg, losartan, Lasix. Continue to monitor BP closely. Blood pressure remains stable at 138/87 (4) Hypomagnesemia: (5) Chronic anemia: Plan: Hgb 8 on admission 03/24/24, baseline Hgb ~8-11 per chart review. Of note patient is s/p 1 unit of PRBCs on 03/19/2024 as her Hgb had dropped down to 6.5 per the discharge summary from [facility]. Continue to closely monitor Hgb level. Will need to transfuse PRBCs if Hgb<7. Hemoglobin remains stable at 8.6 (6) Contusion of face: Plan: Has bruising involving the left side of the face including around the eye Denies any significant pain and/or discomfort (7) Anticoagulant long-term use: Plan: Has been on Eliquis (8) Acute blood loss anemia: (9) Contusion of left knee: (10) COPD (chronic obstructive pulmonary disease): Plan: Remains stable with other significant medical conditions as below * COPD - Continue home inhalers. CAD/HLD - Continue statin, Plavix. * Hypothyroidism - Continue levothyroxine. Mood Disorder/Anxiety - Continue citalopram. Plan Notes from the previous hospitalist: Patient status post fall with left humerus fracture, blood loss anemia multiple contusions. Transferred from [facility] to [facility] after patient underwent orthopedic surgery at [facility]. Continue current medications Continue therapies Follow-up with orthopedics as previously arranged Monitor hemoglobin intermittently Case management reports that [facility] has accepted patient for rehab. Awaiting insurance authorization. Ready for discharge when this is obtained. Admission and Anticipated Discharge Date Admission Date: March 24, 2024 Subjective 03/30/2024 The patient was seen and examined in medical floor She complains to have weakness but denies any other distress Has been getting physical therapy and awaiting placement Review of Systems Review of Systems: All systems reviewed and are unremarkable except as noted below Physical Exam Physical Exam: Lying in bed without any acute distress Constitutional: well developed, well nourished and + ill appearing Eyes: PERRL, conjunctivae normal, anicteric sclerae ENMT: external ear and nose normal, oropharynx normal Neck: trachea midline, no thyromegaly Respiratory: no respiratory distress Auscultation: lungs clear to auscultation bilaterally Cardiovascular: Rate/Rhythm: regular rate and regular rhythm; not tachycardic Heart Sounds: normal S1 and normal S2; no murmur Extremities: no edema Gastrointestinal (Abdomen): Inspection/Auscultation: normal bowel sounds; abdomen not distended Percussion/Palpation: abdomen soft; abdomen nontender Musculoskeletal: Left upper extremity is in sling due to recent humeral fracture Neurologic: normal touch/pain/proprioception and moves all extremities; no focal motor deficits Lymphatic: no cervical or axillary lymphadenopathy Results & Data Results & Data Vital Signs (Past 12 Hours) Vital Signs Temp Pulse Resp BP Pulse Ox O2 Del Method O2 Flow Rate 03/30/24 07:19 36.4 C L 90 18 138/87 98 Nasal Cannula 3 03/30/24 01:42 130/83 Medications Administered Current Inpatient Medications Acetaminophen (Acetaminophen 325 Mg Tab) 650 mg PO Q4H PRN PRN Reason: pain/fever Stop: 04/23/24 12:06 Last Admin: 03/30/24 07:30 Dose: 650 mg Albuterol (Albut/Ipratrop 3mg/0.5mg Neb 3 Ml Vial) 3 ml NEB QIDR PRN; Protocol PRN Reason: shortness of breath Stop: 04/23/24 13:51 Amlodipine Besylate (Amlodipine Besylate 5 Mg Tab) 2.5 mg PO HS [facility] Stop: 04/28/24 23:14 Last Admin: 03/29/24 23:38 Dose: 2.5 mg Apixaban (Apixaban 5 Mg Tablet) 5 mg PO BID [facility] Stop: 04/23/24 20:59 Last Admin: 03/30/24 08:40 Dose: 5 mg Atorvastatin Calcium (Atorvastatin 40 Mg Tab) 40 mg PO QAM [facility] Stop: 04/24/24 08:59 Last Admin: 03/30/24 08:41 Dose: 40 mg Calcium/Vitamin D (Calcium 600mg + Vit D 400 Iu Tab) 1 tab PO QAM [facility] Stop: 04/24/24 08:59 Last Admin: 03/30/24 08:40 Dose: 1 tab Carvedilol (Carvedilol 6.25 Mg Tab) 6.25 mg PO BID [facility] Stop: 04/28/24 20:59 Last Admin: 03/30/24 08:42 Dose: 6.25 mg Citalopram Hydrobromide (Citalopram 40 Mg Tab) 40 mg PO QAM [facility] Stop: 04/24/24 08:59 Last Admin: 03/30/24 08:42 Dose: 40 mg Clopidogrel Bisulfate (Clopidogrel Bisulfate 75 Mg Tab) 75 mg PO QAM [facility] Stop: 04/24/24 08:59 Last Admin: 03/30/24 08:40 Dose: 75 mg Docusate Sodium (Docusate Sodium 100 Mg Cap) 100 mg PO BID [facility] Stop: 04/23/24 20:59 Last Admin: 03/30/24 08:48 Dose: Not Given Fluticasone/Vilanterol (Fluticasone/Vilanterol 100/25mcg 14 Puffs/Inhaler) 1 puffs INH DAILY [facility] Stop: 04/24/24 08:59 Last Admin: 03/30/24 08:46 Dose: 1 puffs Gabapentin (Gabapentin 300 Mg Cap) 300 mg PO TID [facility] Stop: 04/23/24 13:59 Last Admin: 03/30/24 08:40 Dose: 300 mg Levalbuterol HCl (Levalbuterol Hcl 0.63 Mg/3 Ml Neb) 0.63 mg NEB Q6H PRN; Protocol PRN Reason: Shortness Of Breath Or Wheezing Stop: 04/23/24 12:15 Levothyroxine Sodium (Levothyroxine Sodium 25 Mcg Tablet) 25 mcg PO DAILYBB [facility] Stop: 04/24/24 06:29 Last Admin: 03/30/24 05:38 Dose: 25 mcg Losartan Potassium (Losartan Potassium 50 Mg Tab) 100 mg PO QAM [facility] Stop: 04/29/24 08:59 Last Admin: 03/30/24 08:41 Dose: 100 mg Magnesium Oxide (Magnesium Oxide 400 Mg Tab) 400 mg PO BID [facility] Stop: 04/23/24 20:59 Last Admin: 03/30/24 08:42 Dose: 400 mg Multivitamins (Multivitamin Tab) 1 tab PO DAILY [facility] Stop: 04/24/24 08:59 Last Admin: 03/30/24 08:41 Dose: 1 tab Ondansetron HCl (Ondansetron Inj 2 Mg/Ml 2 Ml Vial) 4 mg IV Q6H PRN PRN Reason: Nausea Stop: 04/23/24 12:06 Oxybutynin Chloride (Oxybutynin Chloride Xl 5 Mg Tabcr) 5 mg PO QAM [facility] Stop: 04/24/24 08:59 Last Admin: 03/30/24 08:41 Dose: 5 mg Oxycodone HCl (Oxycodone Hcl Ir 5 Mg Tab (Immediate Release)) 5 mg PO Q4H PRN PRN Reason: Moderate Pain (Scale 4, 5, 6) Stop: 04/07/24 13:46 Last Admin: 03/29/24 13:25 Dose: 5 mg Oxycodone HCl (Oxycodone Hcl Ir 5 Mg Tab (Immediate Release)) 10 mg PO Q4H PRN PRN Reason: Severe Pain (Scale 7, 8, 9,10) Stop: 04/07/24 13:46 Last Admin: 03/26/24 11:22 Dose: 10 mg Pantoprazole Sodium (Pantoprazole 40 Mg Tab) 40 mg PO QAM [facility] Stop: 04/24/24 08:59 Last Admin: 03/30/24 08:41 Dose: 40 mg Polyethylene Glycol (Polyethylene (Miralax) 17 Gm Pack) 17 gm PO DAILY PRN PRN Reason: Constipation Stop: 04/23/24 12:06 Potassium Chloride (Potassium Chloride 10 Meq Tabcr) 10 meq PO AMHS [facility] Stop: 04/23/24 20:59 Last Admin: 03/30/24 08:55 Dose: 10 meq Umeclidinium [place] (Umeclidinium [place] 62.5mcg/Blister 7 Puffs/Inhaler) 1 puffs INH QAM [facility] Stop: 04/24/24 08:59 Last Admin: 03/30/24 08:55 Dose: 1 puffs Vitamin D (Cholecalciferol 25 Mcg (1000 Units) Tab) 50 mcg PO DAILY [facility] Stop: 04/24/24 08:59 Last Admin: 03/30/24 08:40 Dose: 50 mcg (1) Fracture of distal end of left humerus Encounter type: initial encounter Fracture type: closed (3) HTN (hypertension) Hypertension type: primary hypertension Qualified Code(s): I10 - Essential (primary) hypertension (6) Contusion of face Encounter type: initial encounter Qualified Code(s): S00.83XA - Contusion of other part of head, initial encounter
--- NOTE | 2024-03-31 16:13 | Orthopedic Consultation ---
Date of Consultation March 31, 2024 Assessment & Plan (1) S/P ORIF (open reduction internal fixation) fracture: Splint was removed today revealing the above exam and photo. She does have some necrotic tissue distally along the wound with a small amount of friable skin breakdown. Arm was thoroughly cleansed. Sutures were removed today. Decided not to reinforce with Steri-Strips as her skin is very thin did not want to risk injuring the skin when these are removed/fall off. A new dressing including Adaptic, 4 x 4's, ABD pads, Ac wrap was reapplied. She was placed gently back into the sling for now. She complained of some subjective decreased sensation in the little finger. decreased sensation to light touch in this finger. I spoke with Nelly Leach PA-C through tiger text and forwarded the photo. She stated this should be seen in 2 weeks to ensure the wound is not breaking down. She is already scheduled for a 4 week follow up in [place]. Will have our office coordinate with their office to schedule this [address] Cochran is the attending. Patient can be coffee cup weightbearing. PT/OT for range of motion. Will recheck tomorrow to ensure no dressing saturation. Wound will need to be closely followed to ensure it does not break down. Continue PT/OT for range of motion Continue with elevation. Ice as needed. Pain control per primary service. DVT prophylaxis per primary service. Will review with Dr. Melendrez. Present on Admission?: Yes (2) Fracture of distal end of left humerus: Supervising Physician Co-Signing Physician Notes I Dr. Melendrez, saw and examined the patient and agree with the above findings and plan of care I discussed with my PA. History of Present Illness Reason for Consultation: Suture removal, dressing change Requesting Physician: Claudine Melendrez MD Attending Physician: Raymundo Lee MD History of Present Illness Kae Johnston is a 73-year-old female with past medical history significant for HTN, HLD, chronic respiratory failure with hypoxia [on 3L O2 via NC at baseline], chronic nonspecific lung disease/COPD, dyslipidemia, acquired hypothyroidism, HTN, CAD s/p stenting, chronic anemia [baseline Hgb 8-11], history of NE, hematuria, generalized osteoarthritis, osteoporosis, mood disorder/anxiety, tobacco use disorder, paroxysmal atrial fibrillation on Eliquis] and gait difficulty who initially presented to the [facility] ED on 03/15/2024 diagnosed with a fracture of the distal end/supracondylar part of left humerus with overlapping of the fracture fragments and lateral displacement of the proximal fracture fragment. She was subsequently transferred to [facility] and underwent Left distal humerus supracondylar fracture open reduction internal fixation and left ulnar neurolysis and anterior transposition on 03/18/2024. She was transferred back to [facility] on 03/24/2024 for ongoing medical management possible placement. Our service was consulted today because the patient had a 2- week follow-up appointment scheduled tomorrow in [place], but she is still currently admitted. Per recommendations from Nelly Leach PA-C who the patient was supposed to follow up with, we were asked to remove the splint, evaluate, remove sutures, and re-apply a new dressing. They recommended OT for range of motion and follow up in [address] Cochran with x-rays. Patient reports some numbness in her left little finger. She is able to move all of her fingers and has been working on range of motion with her fingers while in the splint. Reports a mild amount of pain in the elbow. Allergies Allergy/AdvReac Type Severity Reaction Status Date / Time bee venom protein (honey bee) Allergy Severe SWELLING Verified 01/30/24 16:12 SEVERE doxycycline Allergy Intermediate Vomiting Verified 01/30/24 16:12 Home Medications Medication Instructions Recorded Confirmed Type multivitamin 1 tab PO DAILY #0 tabs 02/07/14 03/24/24 History omega 2-xzr-yjk-fish oil 1,000 mg 1 cap PO DAILY #0 caps 04/22/17 03/24/24 History (120 mg-180 mg) capsule (Fish Oil) magnesium oxide 400 mg PO BID #0 tabs 06/01/17 03/24/24 History apixaban 5 mg tablet (Eliquis) 5 mg PO BID 12/06/23 03/24/24 History atorvastatin 40 mg tablet 40 mg PO QAM 12/06/23 03/24/24 History citalopram 40 mg tablet 40 mg PO QAM 12/06/23 03/24/24 History clopidogrel 75 mg tablet 75 mg PO QAM 12/06/23 03/24/24 History fluticasone propionate 115 2 puff inhalation AMHS 12/06/23 03/24/24 History mcg-salmeterol 21 mcg/actuation HFA inhaler gabapentin 300 mg capsule 300 mg PO TID 12/06/23 03/24/24 History levothyroxine 25 mcg tablet 25 mcg PO DAILYBB 12/06/23 03/24/24 History oxybutynin chloride 5 mg 5 mg PO QAM 12/06/23 03/24/24 History tablet,extended release 24 hr potassium chloride 10 mEq 10 meq PO AMHS 12/06/23 03/24/24 History tablet,extended release(part/cryst) (Klor-Con M) nitroglycerin 0.4 mg sublingual 0.4 mg sublingual Q5M PRN chest 12/09/23 03/24/24 Rx tablet (Nitrostat) pain #30 tabs umeclidinium 62.5 mcg/actuation 1 inh inhalation DAILY #30 ea 12/14/23 03/24/24 Rx blister powder for inhalation (Incruse Ellipta) ipratropium 0.5 mg-albuterol 3 mg 3 ml NEB QIDR PRN shortness of 12/28/23 03/24/24 Rx (2.5 mg base)/3 mL nebulization breath #90 mL soln albuterol sulfate 90 mcg/actuation 2 puff inhalation Q4 PRN WHEEZING 01/30/24 03/24/24 History aerosol inhaler OR COUGH pantoprazole 40 mg tablet,delayed 40 mg PO QAM 01/30/24 03/24/24 History release (Protonix) tiotropium bromide 18 mcg capsule 1 cap inhalation QAM 03/02/24 03/24/24 History with inhalation device carvedilol 3.125 mg tablet 3.125 mg PO BID 30 days #60 tabs 03/08/24 03/24/24 Rx losartan 25 mg tablet 25 mg PO QAM 30 days #30 tabs 03/08/24 03/24/24 Rx alendronate 70 mg tablet 70 mg PO WK 03/15/24 03/24/24 History cholecalciferol (vitamin D3) 50 50 mcg PO DAILY 03/24/24 03/24/24 History mcg (2,000 unit) tablet (Vitamin D3) furosemide 40 mg tablet 20 mg PO QAM 03/24/24 03/24/24 History Patient History Medical History Absent pedal pulses Macular degeneration Asthma Tobacco use disorder Coronary atherosclerosis of [place] coronary vessel Benign hypertension Atrial fibrillation Diabetes Surgical History H/O heart surgery History of cholecystectomy Hx of tubal ligation Social History Smoking Status: Never smoker Tobacco Type: Cigarettes Cigarettes Per Day: 5; Second Hand Exposure: No; Do You Dip or Chew Tobacco: No; Hx Alcohol Use: No Hx Substance Use: No Preferred Language: Slovenian Communication Ability: Effective Residential Framing Carpenter Required: No Beliefs That Will Affect Care: None Current Living Situation: Family Current Living Situation Comment: with daughter Feels Safe at Home: Yes Safety Concerns: Feels Safe At This Time Assistive Devices: Oxygen - Continuous, Walker and Wheelchair Physical Exam 2 Physical Exam: Constitutional: Resting comfortably in bed. Pleasant Cardiovascular: Left radial pulse 2+ Musculoskeletal: Left upper extremity: Plaster splint is in place. Arm resting in sling. Splint was removed showing some swelling about the elbow with associated ecchymosis from the distal humerus extending onto the proximal forearm posteriorly. No surrounding skin erythema. Likely a small underlying hematoma posteriorly. The surgical incision is intact with no dehiscence. Sutures are in place. The distal aspect of the incision has some necrotic friable tissue. Mild tenderness diffusely about the elbow. Elbow active ROM: 30-90 degrees. Motor function intact with wrist extension, thumb extension, resisted finger abduction, and thumb opposition to fingers. Able to make a full fist. Neurologic: Subjective decreased sensation to light touch in left little finger. Remaining fingers sensation to light touch intact in axillary nerve distribution intact. Results & Data Vital Signs (Past 12 Hours) Vital Signs Temp Pulse Resp BP Pulse Ox O2 Del Method O2 Flow Rate 03/31/24 07:21 97.9 F 96 H 16 156/97 H 94 Nasal Cannula 3 (2) Fracture of distal end of left humerus Encounter type: initial encounter Fracture type: closed
[2024-04-01 08:17] VITALS: RESP 17; O2SAT 99
--- NOTE | 2024-04-01 09:41 | Orthopedic Progress Note ---
Date of Service April 01, 2024 Assessment & Plan (1) S/P ORIF (open reduction internal fixation) fracture: Plan: Pain improved today now that she is out of the splint. She seems to be doing better. I readjusted her Ac wrap which seems to be feeling better. We reviewed gentle range of motion exercises that she can do while in her bed. PT/OT with range of motion. Coffee cup weightbearing. 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 Continue to monitor. Our office staff is currently coordinating a 2-week follow-up appointment in [place] for her. I reviewed the importance of following up with them in 2 weeks and she stated that she will work on coordinating transportation with her daughter. Sling for comfort if needed but I reviewed with her that she does not need to wear this at all times. DVT prophylaxis per primary service. Pain control per primary service. Dressing changes can be every several days or as needed. Will continue to follow every few days while patient is admitted (2) Fracture of distal end of left humerus: Admission and Anticipated Discharge Date Admission Date: March 24, 2024 Subjective Patient seen in bed today. She states the pain in her left arm is minimal, better now that she is out of the splint. A little bit of electric shocks in her fingers at times. Little finger and inside of her ring finger still numb. Has not had any drainage from the AC wrap on her arm. Physical Exam Constitutional: Resting comfortably no distress in bed. Pleasant. Cardiovascular: Left radial pulse 2+ Musculoskeletal: Left upper extremity: Dressing is in place. It is clean, dry, intact. The Ac wrap was taken down and the overlying dressing material is clean and dry. Ac wrap was reapplied with elbow more at 90 degrees, comfort improved per patient. Motor function: reduced/weak with resisted finger addution. wrist extension, thumb opposition to little finger, and thumb extension 5/5. Able to make a full fist. Skin: Capillary refill less than 2 seconds in left fingers Neurologic: Decree sensation to light touch in ulnar nerve distribution on the left hand Results & Data Vital Signs (Past 12 Hours) Vital Signs Temp Pulse Resp BP Pulse Ox O2 Del Method 04/01/24 08:00 97.9 F 97 H 17 163/95 H 99 Room Air (2) Fracture of distal end of left humerus Encounter type: initial encounter Fracture type: closed
--- NOTE | 2024-04-01 11:05 | Hospitalist Progress Note ---
Date of Service April 01, 2024 Assessment & Plan (1) Fracture of distal end of left humerus: Plan: Patient status post fall with left humerus fracture, blood loss anemia multiple contusions.- was transferred to [facility] for appropriate managemen t. Transferred from [facility] to [facility] after patient underwent orthopedic surgery at [facility]. Activity guidelines per ortho at [facility] --> LUE is coffee cup nonweightbearing, do not lift anything greater than a coffee cup. No pushing or pulling with the left arm. "Sling for comfort when out of bed. Left shoulder, finger range of motion as tolerated. Elevate left hand above elbow, and elbow above heart while in bed to decrease swelling." Keep the rigid cast/splint clean, dry and intact until seen in ortho clinic for f/u appt --> 04/01/2024 @ 10:45AM w/ Nelly Leach PA-C [[facility] in [place], [place]] Ortho recommends vitamin D3 50mcg/daily for a total of 8 weeks postop. May wrap the rigid cast/splint in a plastic bag to shower. PT/OT evals pending. PRN pain control, bowel regimen. Fall precautions. Pain is reasonably controlled with current medications Has been getting physical therapy and awaiting approval and transfer to rehab facility Ortho evaluation prior to discharge- Ortho consult is placed (2) PAF (paroxysmal atrial fibrillation): Plan: Chronic, stable. Eliquis restarted at [facility] - will continue. Continue Coreg. Rate is controlled and denies any symptoms Denies any cardiac symptoms (3) HTN (hypertension): Plan: Continue home BP medications - including Coreg, losartan, Lasix. Continue to monitor BP closely. Blood pressure remains stable at 138/87 (4) Hypomagnesemia: (5) Chronic anemia: Plan: Hgb 8 on admission 03/24/24, baseline Hgb ~8-11 per chart review. Of note pat ient is s/p 1 unit of PRBCs on 03/19/2024 as her Hgb had dropped down to 6.5 per the discharge summary from [facility]. Continue to closely monitor Hgb level. Will need to transfuse PRBCs if Hgb<7. Hemoglobin remains stable at 8.6 (6) Contusion of face: Plan: Has bruising involving the left side of the face including around the eye Denies any significant pain and/or discomfort Remains stable (7) Anticoagulant long-term use: Plan: Has been on Eliquis (8) Acute blood loss anemia: (9) Contusion of left knee: (10) COPD (chronic obstructive pulmonary disease): Plan: Remains stable with other significant medical conditions as below * COPD - Continue home inhalers. CAD/HLD - Continue statin, Plavix. * Hypothyroidism - Continue levothyroxine. Mood Disorder/Anxiety - Continue citalopram. Plan Notes from the previous hospitalist: Patient status post fall with left humerus fracture, blood loss anemia multiple contusions. Transferred from [facility] to [facility] after patient underwent orthopedic surgery at [facility]. Continue current medications Continue therapies Follow-up with orthopedics as previously arranged Monitor hemoglobin intermittently Case management reports that [facility] has accepted patient for rehab. Awaiting insurance authorization. Ready for discharge when this is obtained. Admission and Anticipated Discharge Date Admission Date: March 24, 2024 Subjective 03/30/2024 The patient was seen and examined in medical floor She complains to have weakness but denies any other distress Has been getting physical therapy and awaiting placement 03/31/2024 Patient was seen and examined in medical floor She has been stable and awaiting transfer to a facility She will need to be seen by Ortho prior to transfer Review of Systems Review of Systems: All systems reviewed and are unremarkable except as noted below Physical Exam Physical Exam: Lying in bed without any acute distress Constitutional: well developed, well nourished and + ill appearing Eyes: PERRL, conjunctivae normal, anicteric sclerae ENMT: external ear and nose normal, oropharynx normal Neck: trachea midline, no thyromegaly Respiratory: no respiratory distress Auscultation: lungs clear to auscultation bilaterally Cardiovascular: Rate/Rhythm: regular rate and regular rhythm; not tachycardic Heart Sounds: normal S1 and normal S2; no murmur Extremities: no edema Gastrointestinal (Abdomen): Inspection/Auscultation: normal bowel sounds; abdomen not distended Percussion/Palpation: abdomen soft; abdomen nontender Neurologic: normal touch/pain/proprioception and moves all extremities; no focal motor deficits Lymphatic: no cervical or axillary lymphadenopathy Results & Data Results & Data Vital Signs (Past 12 Hours) Vital Signs Temp Pulse Resp BP Pulse Ox O2 Del Method O2 Flow Rate 04/01/24 08:25 Nasal Cannula 3 04/01/24 08:00 36.6 C 97 H 17 163/95 H 99 Room Air (1) Fracture of distal end of left humerus Encounter type: initial encounter Fracture type: closed (3) HTN (hypertension) Hypertension type: primary hypertension Qualified Code(s): I10 - Essential (primary) hypertension (6) Contusion of face Encounter type: initial encounter Qualified Code(s): S00.83XA - Contusion of other part of head, initial encounter
--- NOTE | 2024-04-01 11:09 | Hospitalist Progress Note ---
Date of Service April 01, 2024 Assessment & Plan (1) Fracture of distal end of left humerus: Plan: Patient status post fall with left humerus fracture, blood loss anemia multiple contusions.- was transferred to [facility] for appropriate managemen t. Transferred from [facility] to [facility] after patient underwent orthopedic surgery at [facility]. Activity guidelines [place] [facility] --> LUE is coffee cup nonweightbearing, do not lift anything greater than a coffee cup. No pushing or pulling with the left arm. "Sling for comfort when out of bed. Left shoulder, finger range of motion as tolerated. Elevate left hand above elbow, and elbow above heart while in bed to decrease swelling." Keep the rigid cast/splint clean, dry and intact until seen in ortho clinic for f/u appt --> 04/01/2024 @ 10:45AM w/ Nelly Leach PA-C [[facility] in [place], [place]] Ortho recommends vitamin D3 50mcg/daily for a total of 8 weeks postop. May wrap the rigid cast/splint in a plastic bag to shower. PT/OT evals pending. PRN pain control, bowel regimen. Fall precautions. Pain is reasonably controlled with current medications Has been getting physical therapy and awaiting approval and transfer to rehab facility Ortho evaluation prior to discharge- Ortho consult is placed Appreciate Ortho input and recommendationsutures have been taken off and dressing is done Instruction about therapy as advised by the orthopedic surgeon and follow-up appointment has been made She will be discharged to rehab facility this afternoon (2) PAF (paroxysmal atrial fibrillation): Plan: Chronic, stable. Eliquis restarted at [facility] - will continue. Continue Coreg. Rate is controlled and denies any symptoms Denies any cardiac symptoms (3) HTN (hypertension): Plan: Continue home BP medications - including Coreg, losartan, Lasix. Continue to monitor BP closely. Blood pressure remains stable at 138/87 Blood pressure little high as of today 163/95 without any symptoms (4) Hypomagnesemia: (5) Chronic anemia: Plan: Hgb 8 on admission 03/24/24, baseline Hgb ~8-11 per chart review. Of note patient is s/p 1 unit of PRBCs on 03/19/2024 as her Hgb had dropped down to 6.5 per the discharge summary from [facility]. Continue to closely monitor Hgb level. Will need to transfuse PRBCs if Hgb<7. Hemoglobin remains stable at 8.6 (6) Contusion of face: Plan: Has bruising involving the left side of the face including around the eye Denies any significant pain and/or discomfort Remains stable (7) Anticoagulant long-term use: Plan: Has been on Eliquis (8) Acute blood loss anemia: (9) Contusion of left knee: (10) COPD (chronic obstructive pulmonary disease): Plan: Remains stable with other significant medical conditions as below * COPD - Continue home inhalers. CAD/HLD - Continue statin, Plavix. * Hypothyroidism - Continue levothyroxine. Mood Disorder/Anxiety - Continue citalopram. Plan Notes from the previous hospitalist: Patient status post fall with left humerus fracture, blood loss anemia multiple contusions. Transferred from [facility] to [facility] after patient underwent orthopedic surgery at [facility]. Continue current medications Continue therapies Follow-up with orthopedics as previously arranged Monitor hemoglobin intermittently Case management reports that [facility] has accepted patient for rehab. Awaiting insurance authorization. Ready for discharge when this is obtained. Admission and Anticipated Discharge Date Admission Date: March 24, 2024 Subjective 03/30/2024 The patient was seen and examined in medical floor She complains to have weakness but denies any other distress Has been getting physical therapy and awaiting placement 03/31/2024 Patient was seen and examined in medical floor She has been stable and awaiting transfer to a facility She will need to be seen by Ortho prior to transfer 04/01/2024 The patient was seen and examined in medical floor She was seen by the Ortho yesterday and also this morning and sutures and dressing have been changed She denies any significant symptoms except weakness and tiredness Her pain is controlled Review of Systems Review of Systems: All systems reviewed and are unremarkable except as noted below Physical Exam Physical Exam: Lying in bed without any acute distress Constitutional: well developed, well nourished and + ill appearing Eyes: PERRL, conjunctivae normal, anicteric sclerae ENMT: external ear and nose normal, oropharynx normal Neck: trachea midline, no thyromegaly Respiratory: no respiratory distress Auscultation: lungs clear to auscultation bilaterally Cardiovascular: Rate/Rhythm: regular rate and regular rhythm; not tachycardic Heart Sounds: normal S1 and normal S2; no murmur Extremities: no edema Gastrointestinal (Abdomen): Inspection/Auscultation: normal bowel sounds; abdomen not distended Percussion/Palpation: abdomen soft; abdomen nontender Musculoskeletal: any movement of the left upper extremity is painful otherwise no acute arthritis in any of the joint Neurologic: normal touch/pain/proprioception and moves all extremities; no foc al motor deficits Lymphatic: no cervical or axillary lymphadenopathy Results & Data Results & Data Vital Signs (Past 12 Hours) Vital Signs Temp Pulse Resp BP Pulse Ox O2 Del Method O2 Flow Rate 04/01/24 08:25 Nasal Cannula 3 04/01/24 08:00 36.6 C 97 H 17 163/95 H 99 Room Air Medications Administered Current Inpatient Medications Acetaminophen (Acetaminophen 325 Mg Tab) 650 mg PO Q4H PRN PRN Reason: pain/fever Stop: 04/23/24 12:06 Last Admin: 03/31/24 08:22 Dose: 650 mg Albuterol (Albut/Ipratrop 3mg/0.5mg Neb 3 Ml Vial) 3 ml NEB QIDR PRN; Protocol PRN Reason: shortness of breath Stop: 04/23/24 13:51 Amlodipine Besylate (Amlodipine Besylate 5 Mg Tab) 2.5 mg PO [facility] Stop: 04/28/24 23:14 Last Admin: 03/31/24 21:05 Dose: 2.5 mg Apixaban (Apixaban 5 Mg Tablet) 5 mg PO BID [facility] Stop: 04/23/24 20:59 Last Admin: 04/01/24 08:31 Dose: 5 mg Atorvastatin Calcium ([facility]atin 40 Mg Tab) [facility] Stop: 04/24/24 08:59 Last Admin: 04/01/24 08:31 Dose: 40 mg Calcium/Vitamin D (Calcium 600mg + Vit D 400 Iu Tab) 1 tab PO QAM [facility] Stop: 04/24/24 08:59 Last Admin: 04/01/24 08:30 Dose: 1 tab Carvedilol (Carvedilol 6.25 Mg Tab) 6.25 mg PO BID [facility] Stop: 04/28/24 20:59 Last Admin: 04/01/24 08:30 Dose: 6.25 mg Citalopram Hydrobromide (Citalopram 40 Mg Tab) 40 mg PO QAM [facility] Stop: 04/24/24 08:59 Last Admin: 04/01/24 08:30 Dose: 40 mg Clopidogrel Bisulfate (Clopidogrel Bisulfate 75 Mg Tab) 75 mg PO QAM [facility] Stop: 04/24/24 08:59 Last Admin: 04/01/24 08:30 Dose: 75 mg Docusate Sodium (Docusate Sodium 100 Mg Cap) 100 mg PO BID [facility] Stop: 04/23/24 20:59 Last Admin: 04/01/24 08:51 Dose: 100 mg Fluticasone/Vilanterol (Fluticasone/Vilanterol 100/25mcg 14 Puffs/Inhaler) 1 puffs INH DAILY [facility] Stop: 04/24/24 08:59 Last Admin: 04/01/24 08:28 Dose: 1 puffs Gabapentin (Gabapentin 300 Mg Cap) 300 mg PO TID [facility] Stop: 04/23/24 13:59 Last Admin: 04/01/24 08:31 Dose: 300 mg Levalbuterol HCl (Levalbuterol Hcl 0.63 Mg/3 Ml Neb) 0.63 mg NEB Q6H PRN; Protocol PRN Reason: Shortness Of Breath Or Wheezing Stop: 04/23/24 12:15 Levothyroxine Sodium (Levothyroxine Sodium 25 Mcg Tablet) [facility] Stop: 04/24/24 06:29 Last Admin: 04/01/24 05:39 Dose: 25 mcg Losartan Potassium (Losartan Potassium 50 Mg Tab) [facility] Stop: 04/29/24 08:59 Last Admin: 04/01/24 08:31 Dose: 100 mg Magnesium Oxide (Magnesium Oxide 400 Mg Tab) 400 mg PO BID [facility] Stop: 04/23/24 20:59 Last Admin: 04/01/24 08:30 Dose: 400 mg Multivitamins (Multivitamin Tab) 1 tab PO DAILY [facility] Stop: 04/24/24 08:59 Last Admin: 04/01/24 08:31 Dose: 1 tab Ondansetron HCl (Ondansetron Inj 2 Mg/Ml 2 Ml Vial) 4 mg IV Q6H PRN PRN Reason: Nausea Stop: 04/23/24 12:06 Oxybutynin Chloride (Oxybutynin Chloride Xl 5 Mg Tabcr) 5 mg PO QAM [facility] Stop: 04/24/24 08:59 Last Admin: 04/01/24 08:30 Dose: 5 mg Oxycodone HCl (Oxycodone Hcl Ir 5 Mg Tab (Immediate Release)) 5 mg PO Q4H PRN PRN Reason: Moderate Pain (Scale 4, 5, 6) Stop: 04/07/24 13:46 Last Admin: 03/29/24 13:25 Dose: 5 mg Oxycodone HCl (Oxycodone Hcl Ir 5 Mg Tab (Immediate Release)) 10 mg PO Q4H PRN PRN Reason: Severe Pain (Scale 7, 8, 9,10) Stop: 04/07/24 13:46 Last Admin: 03/31/24 15:44 Dose: 10 mg Pantoprazole Sodium (Pantoprazole 40 Mg Tab) 40 mg PO QAM [facility] Stop: 04/24/24 08:59 Last Admin: 04/01/24 08:31 Dose: 40 mg Polyethylene Glycol (Polyethylene (Miralax) 17 Gm Pack) 17 gm PO DAILY PRN PRN Reason: Constipation Stop: 04/23/24 12:06 Potassium Chloride (Potassium Chloride 10 Meq Tabcr) 10 meq PO [facility] Stop: 04/23/24 20:59 Last Admin: 04/01/24 08:51 Dose: 10 meq Umeclidinium Chloride (Umeclidinium Chloride 62.5mcg/Blister 7 Puffs/Inhaler) 1 puffs INH [facility] Stop: 04/24/24 08:59 Last Admin: 04/01/24 08:28 Dose: 1 puffs Vitamin D (Cholecalciferol 25 Mcg (1000 Units) Tab) 50 mcg PO DAILY [facility] Stop: 04/24/24 08:59 Last Admin: 04/01/24 08:30 Dose: 50 mcg (1) Fracture of distal end of left humerus Encounter type: initial encounter Fracture type: closed (3) HTN (hypertension) Hypertension type: primary hypertension Qualified Code(s): I10 - Essential (primary) hypertension (6) Contusion of face Encounter type: initial encounter Qualified Code(s): S00.83XA - Contusion of other part of head, initial encounter
[2024-04-01 11:16] VITALS: BP 122/80; PULSE 79; TEMP 98.1
--- NOTE | 2024-04-02 08:39 | Discharge Summary ---
Date of Service April 02, 2024 Admission HPI Per Admitting Provider Kae Johnston is a 73-year-old female with past medical history significant for HTN, HLD, chronic respiratory failure with hypoxia [on 3L O2 via NC at baseline], chronic nonspecific lung disease/COPD, dyslipidemia, acquired hypothyroidism, HTN, CAD s/p stenting, chronic anemia [baseline Hgb 8-11], history of OR, hematuria, generalized osteoarthritis, osteoporosis, mood disorder/anxiety, tobacco use disorder, paroxysmal atrial fibrillation [on Eliquis] and gait difficulty who initially presented to the ED on 03/15/2024 with complaints of significant left elbow pain, left eye bruising/facial tenderness and left knee pain after sustaining a recent fall which occurred a few days prior to her arrival. Radiographic workup at that time was significant for a fracture of the distal end/supracondylar part of left humerus with overlapping of the fracture fragments and lateral displacement of the proximal fracture fragment with mild soft tissue swelling. Face CT from her initial workup revealed a soft tissue hematoma centered in the frontal region with no evidence of fractures. Head CT at that time once again noted the soft tissue hematoma but thankfully did not show any evidence of intracranial hemorrhage. 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 Patient was also found to be septic on admission at that time secondary to leukocytosis, tachycardia and suspected UTI. Procalcitonin was also elevated at 1.15; she was empirically started on IV Rocephin she has since completed the appropriate treatment course for her UTI. Urine culture from 03/15/2024 grew Lena glabrata. Blood cultures from 03/16/2024 were negative. Patient did have an elevated troponin of 192.6 during her initial workup on 03/15/2024. There was no evidence of an acute STEMI on the presenting EKG however there were some T wave inversions in the anterolateral plus inferior leads on that likely represented an NSTEMI type II. Repeat troponin had down trended to 178.7. Previous echocardiogram from 03/03/2024 showed an EF of 55-60%, normal LV wall motion, normal LV systolic function, mild aortic valve sclerosis and mild tricuspid regurgitation. Patient was seen and evaluated by orthopedic surgery here at [facility] on 03/16/2024 whom recommended transfer to [facility] ([facility]) for further evaluation given the complexity of her fracture. She was subsequently transferred to [facility] on 03/17/2024. Patient underwent left distal humerus supracondylar fracture open reduction internal fixation on 03/18/2024 following both cardiology and pulmonology preoperative clearance. Patient has been transferred back here to [facility] on 03/24/2024 under our service from [facility] following successful surgical repair of her left humerus fracture. She will need to be evaluated by both PT and OT in anticipation for rehabilitation placement. Of note patient is s/p 1 unit of PRBCs on 03/19/2024 as her hemoglobin had dropped down to 6.[address] [facility] discharge summary. Patient seen and examined at bedside with Dr. Turcios in room 262-2 this afternoon. Patient with 7/10 left elbow pain during our conversation but she was eating lunch without any issue. Reports numbness/tingling in the lateral aspect of her fourth phalanx. She endorses numbness in her fifth phalanx. Patient mentions that they "had to cut a tendon during surgery" therefore she was instructed that these sensations are to be expected postoperatively due to the extensive nature of her operation. She has chronic intermittent chest pain associated with shortness of breath which is unchanged. She wears 3L via NC at baseline. Admission Exam Per Admitting Provider Vitals signs as noted above General Appearance: Elderly, frail, no apparent distress Head: normocephalic, +traumatic, multiple ecchymosis, ? left frontal hematoma Eyes: normal inspection, EOMI Neck: supple, Trachea midline Respiratory/Chest: Normal breath sounds, CTA, No accessory muscle use Cardiovascular: S1, S2, No murmur Abdomen/GI:Soft, Non tender, Bowel sounds present Extremities/Musculoskeletal:normal inspection, 1+ edema, LUE surgical dressing, sling Neurologic/Psych:AAOX3, grossly no focal neurological deficits Skin: normal color, warm Principal Diagnosis Fracture of distal end of left humerus status post repair, paroxysmal atrial fibrillation, hypertension, chronic anemia, stable COPD Discharge Exam Lying in bed without any acute distress Constitutional well developed, well nourished and + ill appearing Eyes PERRL, conjunctivae normal, anicteric sclerae ENMT external ear and nose normal, oropharynx normal Neck trachea midline, no thyromegaly Respiratory no respiratory distress Auscultation: lungs clear to auscultation bilaterally Cardiovascular Rate/Rhythm: regular rate and regular rhythm; not tachycardic Heart Sounds: normal S1 and normal S2; no murmur Extremities: no edema Gastrointestinal (Abdomen) Inspection/Auscultation: normal bowel sounds; abdomen not distended Percussion/Palpation: abdomen soft; abdomen nontender Neurologic normal touch/pain/proprioception and moves all extremities; no focal motor deficits Lymphatic no cervical or axillary lymphadenopathy Discharge Data Allergies Allergy/AdvReac Type Severity Reaction Status Date / Time bee venom protein (honey bee) Allergy Severe SWELLING Verified 01/30/24 16:12 SEVERE doxycycline Allergy Intermediate Vomiting Verified 01/30/24 16:12 Consultations 03/31/24 13:41 Consult Orthopedic Surgery Routine Hospital Course (1) Fracture of distal end of left humerus: Patient status post fall with left humerus fracture, blood loss anemia multiple contusions.- was transferred to [facility] for appropriate management. Transferred from [facility] to [facility] after patient underwent orthopedic surgery at [facility]. Activity guidelines per ortho at [facility] --> LUE is coffee cup nonweightbearing, do not lift anything greater than a coffee cup. No pushing or pulling with the left arm. "Sling for comfort when out of bed. Left shoulder, finger range of motion as tolerated. Elevate left hand above elbow, and elbow above heart while in bed to decrease swelling." Keep the rigid cast/splint clean, dry and intact until seen in ortho clinic for f/u appt --> 04/01/2024 @ 10:45AM w/ Nelly Leach PA-C [[facility] in [place], [place]] Ortho recommends vitamin D3 50mcg/daily for a total of 8 weeks postop. May wrap the rigid cast/splint in a plastic bag to shower. PT/OT evals pending. PRN pain control, bowel regimen. Fall precautions. Pain is reasonably controlled with current medications Has been getting physical therapy and awaiting approval and transfer to rehab facility Ortho evaluation prior to discharge- Ortho consult is placed Appreciate Ortho input and recommendationsutures have been taken off and dressing is done Instruction about therapy as advised by the orthopedic surgeon and follow-up appointment has been made She will be discharged to rehab facility this afternoon (2) PAF (paroxysmal atrial fibrillation): Chronic, stable. Eliquis restarted at [facility] - will continue. Continue Coreg. Rate is controlled and denies any symptoms Denies any cardiac symptoms (3) HTN (hypertension): Continue home BP medications - including Coreg, losartan, Lasix. Continue to monitor BP closely. Blood pressure remains stable at 138/87 Blood pressure little high as of today 163/95 without any symptoms (4) Hypomagnesemia: (5) Chronic anemia: Hgb 8 on admission 03/24/24, baseline Hgb ~8-11 per chart review. Of note patient is s/p 1 unit of PRBCs on 03/19/2024 as her Hgb had dropped down to 6.5 per the discharge summary from [facility]. Continue to closely monitor Hgb level. Will need to transfuse PRBCs if Hgb<7. Hemoglobin remains stable at 8.6 (6) Contusion of face: Has bruising involving the left side of the face including around the eye Denies any significant pain and/or discomfort Remains stable (7) Anticoagulant long-term use: Has been on Eliquis (8) Acute blood loss anemia: (9) Contusion of left knee: (10) COPD (chronic obstructive pulmonary disease): Remains stable with other significant medical conditions as below * COPD - Continue home inhalers. CAD/HLD - Continue statin, Plavix. * Hypothyroidism - Continue levothyroxine. Mood Disorder/Anxiety - Continue citalopram. Plan Notes from the previous hospitalist: Patient status post fall with left humerus fracture, blood loss anemia multiple contusions. Transferred from [facility] to [facility] after patient underwent orthopedic surgery at [facility]. Continue current medications Continue therapies Follow-up with orthopedics as previously arranged Monitor hemoglobin intermittently Case management reports that [facility] has accepted patient for rehab. Awaiting insurance authorization. Ready for discharge when this is obtained. Total Time Total Time Spent Total Time Spent (In Minutes): 40 minutes Discharge Plan Discharge Items Patient Disposition: Transfer [facility] Fac Reason For Visit: NEEDS PLACEMENT - RETURN FROM [facility] HUMERUS FX Discharge Diagnosis: Fracture of distal end of left humerus status post repair, paroxysmal atrial fibrillation, hypertension, chronic anemia, stable COPD Condition on Discharge: Fair Activity: As commented below Activity Comment: Continue PT as per instruction Non-emergency contact: Primary Care Provider Call non-emergency contact if: you have any medication questions and your symptoms worsen Follow-up/Referrals: Ronald Cortes MD [Primary Care Provider] - (Please make an appointment with your PCP within 7 days following discharge from the facility) Diet: Heart Healthy Kathryn Attending Provider Instructions: Please take extreme precautions to avoid falls Take your medications as advised Please keep appointments with your healthcare providers Continue physical therapy-PT/OT with range of motion. Coffee cup weightbearing. Sling for comfort if needed that she does not need to wear this at all times. Please keep follow-up appointment in [place] on April 28 at 10:30 AM Kathryn Robotics Technologist Provider Instructions: Orthopedic discharge instructions: You have a new orthopedic appointment scheduled with Nelly Leach PA-C in [place] 04/15/2024 at 12:00. It is very important you attend this appointment because your wound will need to be rechecked. Change dressing every few days. Use adaptic on wound for first week, then transition to dry dressing. PT range of motion with fingers, hand, wrist, elbow, shoulder Coffee cup weightbearing with left upper extremity Keep incision clean and dry until you are seen by orthopedics in 2 weeks DVT prophylaxis and pain management per primary service Contact [facility] orthopedic trauma with any questions or concerns Pending Studies at Discharge: No Stand-Alone Forms: My [facility] Skilled Items Patient informed of condition?: Yes DNR: No Discharge Level of Care: Skilled Communicable Disease: No Discharge Prognosis: Stable Lines: None Urinary Catheter: No Medications and DC Order Prescriptions: New losartan 50 mg Tablet 100 mg PO QAM Qty: 30 0RF carvedilol 6.25 mg Tablet 6.25 mg PO BID Qty: 60 0RF amlodipine [Norvasc] 5 mg Tablet 2.5 mg PO HS Qty: 15 0RF oxycodone 5 mg Tablet 5 mg PO Q4H PRN (Reason: pain) Qty: 15 0RF Continued multivitamin Tablet 1 tab PO DAILY Qty: 0 omega 1-bit-ems-fish oil [Fish Oil] 1,000 mg (120 mg-180 mg) Capsule 1 cap PO DAILY Qty: 0 magnesium oxide 400 mg magnesium Tablet 400 mg PO BID Qty: 0 atorvastatin 40 mg tablet 40 mg PO QAM citalopram 40 mg tablet 40 mg PO QAM clopidogrel 75 mg tablet 75 mg PO QAM levothyroxine 25 mcg tablet 25 mcg PO DAILYBB oxybutynin chloride 5 mg tablet extended release 24hr 5 mg PO QAM gabapentin 300 mg capsule 300 mg PO TID potassium chloride [Klor-Con M10] 10 mEq tablet,ER particles/crystals 10 meq PO AMHS fluticasone propion-salmeterol 115-21 mcg/actuation HFA aerosol inhaler 2 puff INHALATION [facility] Eliquis 5 mg tablet 5 mg PO BID nitroglycerin [Nitrostat] 0.4 mg Tablet, Sublingual 0.4 mg sublingual Q5M PRN (Reason: chest pain) Qty: 30 0RF ipratropium-albuterol 0.5 mg-3 mg(2.5 mg base)/3 mL Solution For Nebulization 3 ml NEB QIDR PRN (Reason: shortness of breath) Qty: 90 0RF albuterol sulfate 90 mcg/actuation HFA aerosol inhaler 2 puff INHALATION Q4 PRN (Reason: WHEEZING OR COUGH) pantoprazole [Protonix] 40 mg tablet,delayed release (DR/EC) 40 mg PO QAM alendronate 70 mg tablet 70 mg PO WK Rx Instructions: on mondays furosemide 40 mg tablet 20 mg PO QAM cholecalciferol (vitamin D3) [Vitamin D3] 50 mcg (2,000 unit) Tablet 50 mcg PO DAILY Incruse Ellipta 62.5 mcg/actuation Blister With Device 1 inh inhalation DAILY Qty: 30 0RF tiotropium bromide 18 mcg capsule, w/inhalation device 1 cap INHALATION QAM Discontinued carvedilol 3.125 mg Tablet 3.125 mg PO BID 30 Days Qty: 60 0RF losartan 25 mg Tablet 25 mg PO QAM 30 Days Qty: 30 0RF Discharge Orders: Discharge Order (Routine); Ordered 04/01/24 Ordered By: Raymundo Lee Admission Data Admit Date/Time: 03/24/24 12:21 Attending Provider: Raymundo Lee Admit Provider: Cale Turcios Primary Care Provider: Ronald Cortes Other Providers: Arnaldo Matias at [place]; [facility]; [facility]; IRB Approved Study,Annie; Gabriel Ponce; Carlos Melendrez; Mervin Chandra; Morro Calderon; Ruma Fang; Bertha Jim; Jesus Williamson; Yomi Reid; Darrell Lua; Darrell Galindo; Tresa Garcia; Sebastian Yoder; Amena Otoole; Berto Rodriguez; Elisabet Tracy; Addy Spring; Tremaine Tillman; Scout Mccann Other Interventions: Discharge Summary Assessment (RN) Last Done: 04/01/24 13:41
--- OUTSIDE RECORDS SUMMARY | 2024-04-11 18:09 | External Medical Summary | Continuity of Care Document ---
Author Name Unknown Organization [facility] Address [address] [place] [phone] Care Team Providers Care Survey Coordinator Name Role Phone Estevan Cortes Primary Care Physician [phone] [id number] Date(s): 03/16/24 - 03/24/[address] [phone] Encounter Diagnosis Closed fracture of left distal humerus(Discharge Diagnosis) - 03/17/24 Hypokalemia(Discharge Diagnosis) - 03/17/24 Chronic hypoxic respiratory failure, on home oxygen therapy(Discharge Diagnosis) - 03/17/24 Chronic obstructive pulmonary disease(Discharge Diagnosis) - 03/17/24 Anemia(Discharge Diagnosis) - 03/17/24 Hypomagnesemia(Discharge Diagnosis) - 03/17/24 Long QT interval(Discharge Diagnosis) - 03/17/24 Paroxysmal A-fib(Discharge Diagnosis) - 03/24/24 Coronary artery disease involving platinum heart(Discharge Diagnosis) - 03/17/24 Discharge Disposition: Other Type Healthcare Facility Attending Physician: MD Sin, [facility] Referring Physician: MD Alexa, Paty Allergies, Adverse Reactions, Alerts Substance Criticality Severity Reaction Reaction Severity Status doxycycline Vomiting Active Bee stings Swelling Active Functional Status 03/24/24 Speech Pattern Clear 03/24/24 History of Fall in Last 3 Months Sanabria Y es Presence of Secondary Diagnosis Sanabria Ye s Use of Ambulatory Aid Sanabria Crutches/can e/walker IV/Heparin Lock Fall Risk Sanabria Yes Gait/Transferring Fall Risk Sanabria Weak Mental Status Fall Risk Sanabria Oriented t o own ability Sanabria Fall Risk Score 85 Sanabria Fall Risk High risk 03/23/24 Neurological Symptoms None ADLs Moderate assistance Facial Symmetry Symmetric Gait Unable to assess Swallowing Difficulty None Level of Consciousness Neuro Alert Hallucinations Present None Immunizations Given and Recorded Vaccine Date Status Refusal Reason influenza virus vaccine, inactivated 02/08/24 Nikita rded pneumococcal 23-valent vaccine 12/31/16 Recorded pneumococcal 23-valent vaccine 06/10/10 Recorded Medications Albuterol (Eqv-Ventolin HFA) 90 mcg/inh inhalation aerosol INHALE 2 PUFFS BY MOUTH EVERY 4 HOURS NEEDED FOR WHEEZING OR COUGH Start Date: 03/17/24 Status: Ordered alendronate 70 mg oral tablet TAKE 1 TABLET BY MOUTH WEEKLY DIRECTED , SEE PACKAGE FOR ADDITIONAL INSTRUCTIONS Start Date: 03/17/24 Status: Ordered amiodarone 200 mg oral tablet TAKE 1 TABLET BY MOUTH DAILY. Start Date: 03/17/24 Status: Ordered atorvastatin 40 mg oral tablet TAKE 1 TABLET BY MOUTH EVERY DAY IN THE MORNING Start Date: 03/17/24 Status: Ordered carvedilol 3.125 mg oral tablet TAKE 1 TABLET BY MOUTH TWICE A DAY Start Date: 03/17/24 Status: Ordered citalopram 40 mg oral tablet TAKE 1 TABLET BY MOUTH EVERY DAY IN THE MORNING Start Date: 03/17/24 Status: Ordered clopidogrel 75 mg oral tablet TAKE 1 TABLET BY MOUTH EVERY DAY IN THE MORNING Start Date: 03/17/24 Status: Ordered Eliquis 5 mg oral tablet TAKE 1 TABLET BY MOUTH IN THE MORNING AND BEFORE BEDTIME Start Date: 03/17/24 Status: Ordered fluticasone-salmeterol 115 mcg-21 mcg inhalation aerosol INHALE 2 PUFFS BY MOUTH IN THE MORNING AND BEFORE BEDTIME Start Date: 03/17/24 Status: Ordered furosemide 40 mg oral tablet TAKE 1 TABLET BY MOUTH DAILY. MAX: 1 TAB DAILY Start Date: 03/17/24 Status: Ordered gabapentin 300 mg oral capsule TAKE 1 CAPSULE BY MOUTH THREE TIMES A DAY Start Date: 03/17/24 Status: Ordered ketorolac 0.5% ophthalmic solution PLEASE SEE ATTACHED FOR DETAILED DIRECTIONS Start Date: 03/17/24 Status: Ordered Klor-Con M10 oral tablet, extended release TAKE 1 TABLET BY MOUTH IN THE MORNING AND BEFORE BEDTIME Start Date: 03/17/24 Status: Ordered levothyroxine 25 mcg (0.025 mg) oral tablet TAKE 1 TABLET BY MOUTH IN THE MORNING. (AT LEAST 30 MIN PRIOR TO BREAKFAST OR OTHER MEDS). Start Date: 03/17/24 Status: Ordered losartan 25 mg oral tablet Start: 03/24/24 7:30:00 AM EST, 1 tab, PO, Daily Start Date: 03/24/24 Status: Ordered MiraLax Start: 03/24/24 7:17:00 AM EST, 17 g =, PO, Daily, PRN: constipation 2nd line Start Date: 03/24/24 Status: Ordered ocular lubricant ophthalmic ointment Start: 03/24/24 7:17:00 AM EST, right eye, qhs Start Date: 03/24/24 Status: Ordered ocular lubricant ophthalmic solution Start: 03/24/24 7:17:00 AM EST, both eyes, qid Start Date: 03/24/24 Status: Ordered ofloxacin 0.3% ophthalmic solution INSTILL 1 DROP IN THE LEFT EYE 4 TIMES A DAY STARTING THE DAY BEFORE SURGERY BRING TO SURGERY CENTER Start Date: 03/17/24 Status: Ordered oxyBUTYnin 5 mg/24 hours oral tablet, extended release TAKE 1 TABLET BY MOUTH EVERY DAY Start Date: 03/17/24 Status: Ordered oxyCODONE 10 mg oral tablet Start: 03/24/24 7:20:00 AM EST, 10 mg =, PO, q4h, Refills: 0, PRN: pain - severe (7-10) Start Date: 03/24/24 Status: Ordered oxyCODONE 5 mg oral tablet Start: 03/24/24 7:20:00 AM EST, 5 mg =, PO, q4h, Refills: 0, PRN: pain - moderate (4-6) Start Date: 03/24/24 Status: Ordered pantoprazole 40 mg oral delayed release tablet TAKE 1 TABLET BY MOUTH EVERY DAY IN THE MORNING Start Date: 03/17/24 Status: Ordered Senokot 8.6 mg oral tablet Start: 03/24/24 7:17:00 AM EST, 2 tab, PO, bid, PRN: constipation 1st line Start Date: 03/24/24 Status: Ordered spironolactone 25 mg oral tablet TAKE 1 TABLET BY MOUTH EVERY DAY Start Date: 03/17/24 Status: Ordered tiotropium 18 mcg inhalation capsule INHALE THE CONTENTS OF 1 CAPSULE EVERY MORNING VIA HANDIHALER (DO NOT SWALLOW). Start Date: 03/17/24 Status: Ordered Tylenol 500 mg oral tablet Start: 03/24/24 7:16:00 AM EST, 2 tab, PO, q8h Start Date: 03/24/24 Status: Ordered Vitamin D3 50 mcg (2000 intl units) oral capsule Start: 03/24/24 8:29:00 AM EST, 1 cap, PO, Daily, Disp# 1 cap, other Start Date: 03/24/24 Status: Ordered Mental Status 03/16/24 Primary Language Occitan Problem List Condition Confirmation Course Effective Dates Status H ealth Status Informant Atrial fibrillation, chronic Confirmed Active Chronic hypoxic respiratory failure, on home oxygen therapy Confirmed Active Chronic obstructive pulmonary disease Confirmed Active Coronary artery disease involving platinum heart Confirmed Active Macular degeneration Confirmed Active Generalized anxiety disorder Confirmed Active Hypertension Confirmed Active Hypothyroidism Confirmed Active Osteoarthritis Confirmed Active Osteoporosis Confirmed Active Left arm pain Confirmed Active Diagnosis Diagnosis Type Effective Dates Health Status Clinical Service Informant Closed fracture of left distal humerus Discharge Diagnosis 03/17/24 Non-Specified Hypomagnesemia Discharge Diagnosis 03/17/24 Non-Specified Long QT interval Discharge Diagnosis 03/17/24 Non-Specified Coronary artery disease involving platinum heart Discharge Diagnosis 03/17/24 Non-Specified Chronic obstructive pulmonary disease Discharge Diagnosis 03/17/24 Non-Specified Anemia Discharge Diagnosis 03/17/24 Non-Specified Chronic hypoxic respiratory failure, on home oxygen therapy Discharge Diagnosis 03/17/24 Non-Specified Hypokalemia Discharge Diagnosis 03/17/24 Non-Specified Paroxysmal A-fib Discharge Diagnosis 03/24/24 Non-Specified Procedures Procedure Date Related Diagnosis Body Site Status Appendectomy Completed Cardiac catheterization C ompleted Cholecystectomy Completed Coronary artery stent Com pleted Exploratory laparotomy Co mpleted Rotator cuff repair, Left Completed Tubal ligation done Compl eted Results Laboratory List Name Date Complete Blood Count (CBC w Platelets) 1 05/25/23 Magnesium Level 03/24/24 Nephrology Panel 03/24/24 Complete Blood Count (CBC w Platelets) 1 05/24/23 Magnesium Level 03/23/24 Nephrology Panel 03/23/24 Complete Blood Count (CBC w Platelets) 1 05/23/23 Magnesium Level 03/22/24 Nephrology Panel 03/22/24 Blood Type/Antibody Screen ( for possible transfusion) (Type and Screen (for possible transfusion)) 03/19/24 Complete Blood Count w Differential (CBC w Platelets and Diff) 03/19/24 Glucose Meter (GLUCOSE METER) 03/18/24 Added on Lab order 03/17/24 Troponin T ( 5th Gen) 03/17/24 Troponin T ( 5th Gen) 03/17/24 Ferritin (FERRITIN) 03/17/24 Iron Profile (IRON PROFILE) 03/17/24 Reticulocyte Panel (RETIC PANEL (AUTO)) 03/17/24 Reticulocyte Panel (RETIC PANEL (AUTO)) 03/17/24 Thyroid Stimulating Hormone (TSH) 4 Troponin T ( 5th Gen) 03/17/24 Added on Lab order 03/17/24 Added on Lab order 03/17/24 Blood Type (ABO/Rh) (ABO/RH) 03/17/24 Prothrombin Time w/ INR (PT/INR) 03/17/24 Vitamin D, 25-Hydroxy Level, Total Blood Type/Antibody Screen ( for possible transfusion) (Type and Screen (for possible transfusion)) 03/17/24 NT-Pro BNP 03/17/24 Hepatitis C Antibody 03/16/24 Most recent to oldest [Reference Range]: 1 2 3 ABO/Rh O POSITIVE (03/19/24 11:45 AM) O POSITIVE (03/17/24 1:19 AM) O POSITIVE (03/17/24 12:46 AM) Antibody Scr NEGATIVE (03/19/24 11:45 AM) NEGATIVE (03/17/24 12:46 AM) Expires at 0600AM on 03/22/2024 (03/19/24 11:45 AM) 03/20/2024 (03/17/24 12:46 AM) # Units 0 (03/19/24 11:45 AM) 5 (03/17/24 12:46 AM) R Number NRQ (03/19/24 11:45 AM) NRQ (03/17/24 12:46 AM) eGFR CKD-EPI [>60 mL/min/1.73 m2] 69 mL/min/1.73 m2 (03/24/24 5:22 AM) 76 mL/min/1.73 m2 (03/23/24 7:06 AM) 79 mL/min/1.73 m2 (03/22/24 8:42 AM) Vitamin D, 25-Hydroxy [30-100 ng/mL] 39 ng/mL 1 (03/17/24 12:46 AM) Troponin T ( 5th Gen) [<14 ng/L] 49 ng/L 2 *HI* (03/17/24 8:25 AM) 47 ng/L 3 *HI* (03/17/24 6:38 AM) 47 ng/L 4 *HI* (03/17/24 4:29 AM) Troponin T ( 5th Gen) Delta 1-hour delta NEGATIVE (03/17/24 8:25 AM) 2-hour delta NEGATIVE (03/17/24 6:38 AM) NOT CALCULATED (03/17/24 4:29 AM) Request of Physician iron profile transferrin ferritin reticulocyte count (03/17/24 6:12 AM) BNP (03/17/24 4:19 AM) magnesium level phosphate level (03/17/24 3:36 AM) Action Taken YES (03/17/24 6:12 AM) YES (03/17/24 4:19 AM) YES (03/17/24 3:36 AM) Imm. Retics [5.0-25.0 %] REQUEST CREDITED % 5 (03/17/24 6:12 AM) 19.8 % (03/17/24 6:11 AM) BNP, NT-Pro [<125 pg/mL] 1188 pg/mL *HI* (03/17/24 12:46 AM) Retic Hgb [30.8-36.6 pg] REQUEST CREDITED pg 6 (03/17/24 6:12 AM) 29.7 pg *LOW* (03/17/24 6:11 AM) MPV [9.0-12.2 fL] 8.5 fL *LOW* (03/24/24 5:23 AM) 8.5 fL *LOW* (03/23/24 2:35 PM) 8.7 fL *LOW* (03/22/24 8:42 AM) Immature Gran% 0.7 % (03/19/24 5:38 AM) Neut% 83.9 % (03/19/24 5:38 AM) Lymph% 8.6 % (03/19/24 5:38 AM) Mora% 6.8 % (03/19/24 5:38 AM) Baso% 0.0 % (03/19/24 5:38 AM) Eos% 0.0 % (03/19/24 5:38 AM) Immat Gran, Abs [0-0.4 K/uL] 0.06 K/uL (03/19/24 5:38 AM) Neut, Abs [2.0-7.7 K/uL] 7.49 K/uL (03/19/24 5:38 AM) Lymph, Abs [1.0-3.4 K/uL] 0.77 K/uL *LOW* (03/19/24 5:38 AM) Mora, Abs [0-1.0 K/uL] 0.61 K/uL (03/19/24 5:38 AM) Baso, Abs [0-0.1 K/uL] 0.00 K/uL (03/19/24 5:38 AM) Eos, Abs [0-0.5 K/uL] 0.00 K/uL (03/19/24 5:38 AM) Type of Diff: AUTO (03/19/24 5:38 AM) RDW [11.5-14.2 %] 15.2 % *HI* (03/24/24 5:23 AM) 14.7 % *HI* (03/23/24 2:35 PM) 14.8 % *HI* (03/22/24 8:42 AM) B Comments CALLED FOR 2ND PINK 03/17/24 0102 LASSANRA ASHLEY (03/17/24 12:46 AM) Component RED CELLS (03/19/24 11:45 AM) RED CELLS (03/17/24 12:46 AM) Anion Gap [5-14 mmol/L] 10 mmol/L (03/24/24 5:22 AM) 6 mmol/L (03/23/24 7:06 AM) 7 mmol/L (03/22/24 8:42 AM) Alb [3.5-5.2 g/dL] 2.8 g/dL *LOW* (03/24/24 5:22 AM) 2.8 g/dL *LOW* (03/23/24 7:06 AM) 2.8 g/dL *LOW* (03/22/24 8:42 AM) BUN [6-23 mg/dL] 11 mg/dL (03/24/24 5:22 AM) 10 mg/dL (03/23/24 7:06 AM) 11 mg/dL (03/22/24 8:42 AM) Ca [8.4-10.2 mg/dL] 9.3 mg/dL (03/24/24 5:22 AM) 8.6 mg/dL (03/23/24 7:06 AM) 8.8 mg/dL (03/22/24 8:42 AM) Cl- [98-107 mmol/L] 91 mmol/L *LOW* (03/24/24 5:22 AM) 90 mmol/L *LOW* (03/23/24 7:06 AM) 93 mmol/L *LOW* (03/22/24 8:42 AM) HCO3 [22-29 mmol/L] 34 mmol/L *HI* (03/24/24 5:22 AM) 35 mmol/L *HI* (03/23/24 7:06 AM) 36 mmol/L *HI* (03/22/24 8:42 AM) Cret [0.60-1.00 mg/dL] 0.87 mg/dL (03/24/24 5:22 AM) 0.81 mg/dL (03/23/24 7:06 AM) 0.78 mg/dL (03/22/24 8:42 AM) Iron [37-145 ug/dL] 43 ug/dL (03/17/24 6:12 AM) Ferritin [13.0-150.0 ng/mL] 61.6 ng/mL (03/17/24 6:12 AM) Glu [74-109 mg/dL] 117 mg/dL 7 *HI* (03/24/24 5:22 AM) 79 mg/dL 8 (03/23/24 7:06 AM) 105 mg/dL 9 (03/22/24 8:42 AM) Gluc Meter [74-109 mg/dL] 99 mg/dL (03/18/24 10:19 AM) Hct [35-44 %] 23.7 % *LOW* (03/24/24 5:23 AM) 23.0 % *LOW* (03/23/24 2:35 PM) 24.1 % *LOW* (03/22/24 8:42 AM) HCV Ab [NR] NONREACTIVE (03/17/24 6:11 AM) Hgb [11.7-15.0 g/dL] 7.6 g/dL *LOW* (03/24/24 5:23 AM) 7.4 g/dL *LOW* (03/23/24 2:35 PM) 7.7 g/dL *LOW* (03/22/24 8:42 AM) INR [0.9-1.1] 1.2 10 *HI* (03/17/24 12:46 AM) K [3.5-5.1 mmol/L] 4.1 mmol/L (03/24/24 5:22 AM) 3.6 mmol/L (03/23/24 7:06 AM) 4.1 mmol/L (03/22/24 8:42 AM) MCH [28-33 pg] 30.8 pg (03/24/24 5:23 AM) 31.0 pg (03/23/24 2:35 PM) 30.9 pg (03/22/24 8:42 AM) MCHC [32-36 g/dL] 32.1 g/dL (03/24/24 5:23 AM) 32.2 g/dL (03/23/24 2:35 PM) 32.0 g/dL (03/22/24 8:42 AM) MCV [81-96 fL] 96.0 fL (03/24/24 5:23 AM) 96.2 fL *HI* (03/23/24 2:35 PM) 96.8 fL *HI* (03/22/24 8:42 AM) Mg [1.6-2.6 mg/dL] 1.6 mg/dL (03/24/24 5:22 AM) 1.5 mg/dL *LOW* (03/23/24 7:06 AM) 1.6 mg/dL (03/22/24 8:42 AM) Na [136-145 mmol/L] 135 mmol/L *LOW* (03/24/24 5:22 AM) 131 mmol/L *LOW* (03/23/24 7:06 AM) 136 mmol/L (03/22/24 8:42 AM) PO4 [2.5-4.5 mg/dL] 4.3 mg/dL (03/24/24 5:22 AM) 3.5 mg/dL (03/23/24 7:06 AM) 4.1 mg/dL (03/22/24 8:42 AM) Plts [150-350 K/uL] 413 K/uL *HI* (03/24/24 5:23 AM) 398 K/uL *HI* (03/23/24 2:35 PM) 360 K/uL *HI* (03/22/24 8:42 AM) PT [12.0-14.2 seconds] 14.6 seconds *HI* (03/17/24 12:46 AM) RBC [3.90-5.00 M/uL] 2.47 M/uL *LOW* (03/24/24 5:23 AM) 2.39 M/uL *LOW* (03/23/24 2:35 PM) 2.49 M/uL *LOW* (03/22/24 8:42 AM) Retics (abs) [16.7-96.7 K/uL] REQUEST CREDITED K/uL 11 (03/17/24 6:12 AM) 62.9 K/uL (03/17/24 6:11 AM) Retic (%) [0.40-2.05 %] REQUEST CREDITED % 12 (03/17/24 6:12 AM) 2.19 % *HI* (03/17/24 6:11 AM) Fe Sat [14-50 %] 19 % (03/17/24 6:12 AM) Total IBC [250-400 ug/dL] 228 ug/dL *LOW* (03/17/24 6:12 AM) Transferrin [200-360 mg/dL] 193 mg/dL *LOW* (03/17/24 6:12 AM) TSH [0.30-4.20 uIU/mL] 2.06 uIU/mL (03/17/24 6:11 AM) WBC [4.0-10.4 K/uL] 11.49 K/uL *HI* (03/24/24 5:23 AM) 13.75 K/uL *HI* (03/23/24 2:35 PM) 10.12 K/uL (03/22/24 8:42 AM) 1Result Comment: Deficiency: <20 ng/mL Insufficiency: 21-29 ng/mL Sufficiency: 30-100 ng/mL Potenial Toxicity: >150 ng/mL 2Result Comment: To use the high-sensitivity cTnT assay, at least 2 blood samples should be drawnat time 0 and then at least 1h later. If the cTnT concentration at time 0 is greater than or equal to 53 ng/L in a patient whose clinicalpresentation is consistent with acute coronary syndrome, then there is a high likelihood that acutemyocardial injury is present. However, confirmation of acute myocardial injury still requires a second cTnT dena drawn. Delta cut-offs for determining the presence of acute myocardial injury have beenvalidated at the 1-hour and 2-hour time points referenced here. A 1-hour delta troponin >5 ng/L indicates acute myocardial injury. A 2h delta troponin >7 ng/L indicates acute myocardial injury. Values below these are consistent with chronic myocardial injury. For patients where there is a high index of suspicion for acute coronary syndrome, repeating the tests at 1 or 2 hours, and calculating a new delta, may be indicated. If the second sample is collected in less than 60 minutes, no delta calculationwill be performed. Deltas for blood samples drawn more than 3 hours apart have not been validated and will not be reported. Please interpret with caution. 3Result Comment: To use the high-sensitivity cTnT assay, at least 2 blood samples should be drawnat time 0 and then at least 1h later. If the cTnT concentration at time 0 is greater than or equal to 53 ng/L in a patient whose clinicalpresentation is consistent with acute coronary syndrome, then there is a high likelihood that acutemyocardial injury is present. However, confirmation of acute myocardial injury still requires a second cTnT dena drawn. Delta cut-offs for determining the presence of acute myocardial injury have beenvalidated at the 1-hour and 2-hour time points referenced here. A 1-hour delta troponin >5 ng/L indicates acute myocardial injury. A 2h delta troponin >7 ng/L indicates acute myocardial injury. Values below these are consistent with chronic myocardial injury. For patients where there is a high index of suspicion for acute coronary syndrome, repeating the tests at 1 or 2 hours, and calculating a new delta, may be indicated. If the second sample is collected in less than 60 minutes, no delta calculationwill be performed. Deltas for blood samples drawn more than 3 hours apart have not been validated and will not be reported. Please interpret with caution. 4Result Comment: To use the high-sensitivity cTnT assay, at least 2 blood samples should be drawnat time 0 and then at least 1h later. If the cTnT concentration at time 0 is greater than or equal to 53 ng/L in a patient whose clinicalpresentation is consistent with acute coronary syndrome, then there is a high likelihood that acutemyocardial injury is present. However, confirmation of acute myocardial injury still requires a second cTnT dena drawn. Delta cut-offs for determining the presence of acute myocardial injury have beenvalidated at the 1-hour and 2-hour time points referenced here. A 1-hour delta troponin >5 ng/L indicates acute myocardial injury. A 2h delta troponin >7 ng/L indicates acute myocardial injury. Values below these are consistent with chronic myocardial injury. For patients where there is a high index of suspicion for acute coronary syndrome, repeating the tests at 1 or 2 hours, and calculating a new delta, may be indicated. If the second sample is collected in less than 60 minutes, no delta calculationwill be performed. Deltas for blood samples drawn more than 3 hours apart have not been validated and will not be reported. Please interpret with caution. 5Result Comment: REORDERED BY LAB 6Result Comment: REORDERED BY LAB 7Result Comment: ADA recommendation for FASTING Serum/Plasma Glucose: Normal: 70-100 mg/dL Prediabetes: 100-125 mg/dL Diabetes: 126 mg/dL or higher 8Result Comment: ADA recommendation for FASTING Serum/Plasma Glucose: Normal: 70-100 mg/dL Prediabetes: 100-125 mg/dL Diabetes: 126 mg/dL or higher 9Result Comment: ADA recommendation for FASTING Serum/Plasma Glucose: Normal: 70-100 mg/dL Prediabetes: 100-125 mg/dL Diabetes: 126 mg/dL or higher 10Result Comment: Suggested therapeutic range for low-intensity Coumadin therapy for venous thromboembolism is INR 2.0-3.0 (ex: atrial fibrillation, history of TIA/stroke). For high risk patients, the suggested therapeutic range is INR 2.5-3.5 (ex: mechanical prosthetic valves). 11Result Comment: REORDERED BY LAB 12Result Comment: REORDERED BY LAB Orders for Microbiology Reports Name Date Urine Culture (Culture, Urine) 03/17/24 Blood Culture (Aerobic AND Anaerobic) Blood Culture (Aerobic AND Anaerobic) Microbiology Reports TEST:Urine.Cx STATUS:Auth (Verified) BODY SITE: SOURCE:Urine COLLECTED DATE/TIME:03/17/24 6:29 AM Culture NO GROWTH 1 DAY TEST:Blood.Cx STATUS:Auth (Verified) BODY SITE: SOURCE:Blood COLLECTED DATE/TIME:03/17/24 6:12 AM Culture NO GROWTH IN 5 DAYS TEST:Blood.Cx STATUS:Auth (Verified) BODY SITE: SOURCE:Blood COLLECTED DATE/TIME:03/17/24 6:11 AM Culture NO GROWTH IN 5 DAYS Radiology Reports (Most Recent Ten) * Exam Date Time Procedure Performing Provider Status 03/18/24 7:16 PM XR Elbow Complete 3+ Views Left Stef rOmaira; Final Notes: (XR Elbow Complete 3+ Views Left) Reason For Exam: postop XR Elbow Complete 3+ Views Left EXAMINATION: XR Elbow Complete 3+ Views Left CLINICAL HISTORY: postop COMPARISON: Multiple priors, most recently CT left elbow 03/17/2024 FINDINGS: 3 views of the left elbow. Postsurgical changes of plate and screw fixations for a left distal humerus fracture. No immediate hardware complication. Overlying splinting material. IMPRESSION: Left distal humerus ORIF without immediate hardware complication. Workstation ID: [id number] Final Dictated by:DO Astorga Rushi Dictated DT/TM:03/18/2024 7:24 Signed by:DO Astorga Rushi Signed (Electronic Signature):03/18/2024 7:23 p * Exam Date Time Procedure Performing Provider Status 03/17/24 7:[address] Face Consult Arnaud Miller ; Final Notes: (OO CT Face Consult) Reason For Exam: trauma OO CT Face Consult EXAMINATION: CT of the head, face, cervical, thoracic and lumbar spine without contrast performed at [facility] CLINICAL HISTORY: OSH CTs now available, pt w L dist hum fx FINDINGS: BRAIN: Cerebral parenchyma: No evidence of acute territorial infarct or hemorrhage Extra-axial spaces: No significant extra-axial collection Ventricles: Normal size and configuration without hydrocephalus Mass effect: No midline shift or herniation Basal cisterns: Patent Posterior fossa: Unremarkable Calvarium: Left frontal scalp hematoma. No displaced calvarial fracture. FACE: Facial bones: Intact Paranasal sinuses: Mild mucosal thickening right maxillary sinus Orbits: Intact Base of skull: Intact Mandibles and TMJs: Normally located CERVICAL SPINE: Alignment: Intact Vertebrae: Vertebral body height is maintained. Advanced multilevel degenerative changes/osteophytes. No evidence of fracture. Prevertebral space: Unremarkable Focused axial interbody analysis: No significant spinal canal stenosis. Extraspinal neck soft tissue structures: Thyroid: Unremarkable Lung Apices: Please see separately dictated CT of the chest THORACIC SPINE: Alignment: S-shaped curvature of the thoracolumbar spine Vertebrae: Vertebral body height is maintained without evidence of fracture Paraspinal space: Unremarkable Visualized retroperitoneal: Bilateral hydronephrosis. Please see separately dictated CT abdomen andpelvis. LUMBAR SPINE: Alignment: S-shaped curvature of the thoracolumbar spine. Vertebrae: Vertebral body heights are maintained without evidence of fracture. Paraspinal space: Aneurysmal dilatation of the abdominal aorta. Visualized retroperitoneal: Aneurysmal dilatation of the abdominal aorta. Focused and interbody analysis: No significant spinal canal stenosis IMPRESSION: 1. Left frontal scalp hematoma. No displaced calvarial or facial fracture. 2. No evidence of acute infarct, hemorrhage or intracranial mass lesion. 3. Degenerative changes of the cervical, thoracic and lumbar spine without acute fracture. 4. Please see separately dictated CT of the chest abdomen and pelvis for additional findings Workstation ID: [id number] Final Dictated by:MD Mo Jonathon K Dictated DT/TM:03/17/2024 9:01 Signed by:MD Mo Jonathon K Signed (Electronic Signature):03/17/2024 9:00 a * Exam Date Time Procedure Performing Provider Status 03/17/24 7:24 AM Echo TransTHORacic TTE Complete Juliette Solano; Final Notes: (Echo TransTHORacic TTE Complete) Reason For Exam: Needed for pre operation given extensive cardiachistory and heart failure Echo TransTHORacic TTE Complete Report Signatures Finalized by Dr. Tom Hay MD on 03/17/2024 09:24 AM [place] Act 112: No-No further action needed Summary 1. Normal left ventricular size and systolic function with no regional wall motion abnormalities. 2. Estimated ejection fraction 60-65%. 3. Normal diastolic function for age. 4. Normal right ventricular size and function. 5. No significant valvular abnormalities. 6. Normal estimated pulmonary artery systolic pressures. 7. No prior studies for comparison. Patient Info Name: KAE TORREZ Age: 73 years : 1950 Gender: Female Ht: 155 cm Wt: 54 kg BSA: 1.53 m2 HR: 82 bpm BP: 100 / 64 mmHg Heart Rhythm: Atrial Fibrillation Technical Quality: Fair Exam Date: 03/17/2024 6:27 AM Exam Location: [place] [id number] Patient Status: Inpatient Staff Ordering Physician: James Aleman Bottle Filler: Juliette Dubose Attending Physician: Fercho De La Cruz Study Info CPT 49018 - Indications Z01.810 - Preoperative Exam Procedure(s) * A complete two-dimensional, color flow and Doppler transthoracic echocardiogram was performed. Exam Type: Cardiac Basic Left Ventricle Normal left ventricular size and systolic function with no regional wall motion abnormalities. Estimated ejection fraction 60-65%. No left ventricular hypertrophy. Normal diastolic function for age. Right Ventricle Normal right ventricular size and function. Left Atrium Mildly dilated left atrium size. Right Atrium Normal right atrial size. Aortic Valve The aortic valve is trileaflet and unremarkable by two-dimensional, color flow and Doppler interrogation. Pulmonic Valve Unremarkable pulmonic valve. Mitral Valve Mitral valve is structurally and functionally normal to two-dimensional, color flow Doppler and Doppler interrogation. Tricuspid Valve Unremarkable tricuspid valve. Pericardium/Pleural No significant pericardial effusion. Inferior Vena Cava Normal IVC size and inspiratory collapse. Aorta Normal aortic root. Left Ventricular Outflow Tract Name Value Normal LVOT Doppler LVOT Peak Velocity 0.61 m/s LVOT Peak Gradient 2 mmHg Pulmonic Valve Name Value Normal RVOT Doppler RVOT Peak Velocity 0.49 m/s RVOT Peak Gradient 0 mmHg PV Doppler PV Peak Gradient 1 mmHg Mitral Valve Name Value Normal MV Annular TDI MV Septal s' Velocity 5.98 cm/s MV Septal e' Velocity 7.18 cm/s >=7.00 MV Lateral s' Velocity 4.57 cm/s MV Lateral e' Velocity 3.92 cm/s >=10.00 MV e' Average 5.55 Tricuspid Valve Name Value Normal TV Regurgitation Doppler TR Peak Velocity 2.14 m/s <=2.80 TR Peak Gradient 18 mmHg Estimated PAP/RSVP RA Pressure 3 mmHg <=5 PA Systolic Pressure 21 mmHg <40 TV Diastolic Function TV E Peak Velocity 0.29 m/s TV Decel Time 68 ms >=120 TV Annular TDI TV Lateral Kiersten s' Velocity 10.1 cm/s 9.5-18.7 TV Lateral Kiersten e' Velocity 14.7 cm/s <7.8 TV E/e' 2.01 2.00-6.00 Aorta Name Value Normal Ascending Aorta Sinus of Valsalva Diameter 2.8 cm 2.7-3.3 Sinus of Valsalva Index 1.83 cm/m2 1.60-2.00 Venous Name Value Normal IVC/SVC IVC Diameter (Insp 2D) 0.3 cm IVC Diameter (Exp 2D) 1.6 cm <=2.1 IVC Diameter Percent Change (2D) 81 % >=50 Aortic Valve Name Value Normal AV Doppler AV Peak Velocity 1.51 m/s <2.00 AV Peak Gradient 7 mmHg AV V1/V2 Ratio 0.40 Ventricles Name Value Normal LV Dimensions 2D/MM IVS Diastolic Thickness (2D) 0.6 cm 0.6-0.9 LVID Diastole (2D) 4.1 cm 3.3-5.1 LVIW Diastolic Thickness (2D) 0.7 cm 0.6-0.9 LVID Systole (2D) 2.7 cm 2.2-3.5 LV Mass (2D Cubed) 77.31 g 67.00-162.00 LV Mass Index (2D Cubed) 0.01 g/cm2 0.00-0.01 Relative Wall Thickness (2D) 0.34 LV Fractional Shortening/Ejection Fraction 2D/MM LV Fractional Shortening (2D) 33 % 27-45 RV Dimensions 2D/MM RV Basal Diastolic Dimension 2.3 cm 2.5-4.1 TAPSE 1.9 cm >=1.7 Atria Name Value Normal LA Dimensions LA Area (4C) 16.9 cm2 LA Length (4C) 6.5 cm LA Area (2C) 21.8 cm2 LA Length (2C) 6.0 cm LA Volume (4C A-L) 37.21 ml LA Volume (2C A-L) 67.50 ml LA Volume (BP A-L) 52 ml 22-52 LA Volume Index (BP A-L) 34.25 ml/m2 <=34.00 RA Dimensions RA Area (4C) 13.7 cm2 <=18.0 Final Signed by:MD Hay Ryan Signed (Electronic Signature):03/17/2024 6:27 a * Exam Date Time Procedure Performing Provider Status 03/17/24 5:[address] Head Consult RiveraJordyn; Final Notes: (OO CT Head Consult) Reason For Exam: OSH CTs now available, pt w L dist hum fx OO CT Head Consult EXAMINATION: CT of the head, face, cervical, thoracic and lumbar spine without contrast performed at [facility] CLINICAL HISTORY: OSH CTs now available, pt w L dist hum fx FINDINGS: BRAIN: Cerebral parenchyma: No evidence of acute territorial infarct or hemorrhage Extra-axial spaces: No significant extra-axial collection Ventricles: Normal size and configuration without hydrocephalus Mass effect: No midline shift or herniation Basal cisterns: Patent Posterior fossa: Unremarkable Calvarium: Left frontal scalp hematoma. No displaced calvarial fracture. FACE: Facial bones: Intact Paranasal sinuses: Mild mucosal thickening right maxillary sinus Orbits: Intact Base of skull: Intact Mandibles and TMJs: Normally located CERVICAL SPINE: Alignment: Intact Vertebrae: Vertebral body height is maintained. Advanced multilevel degenerative changes/osteophytes. No evidence of fracture. Prevertebral space: Unremarkable Focused axial interbody analysis: No significant spinal canal stenosis. Extraspinal neck soft tissue structures: Thyroid: Unremarkable Lung Apices: Please see separately dictated CT of the chest THORACIC SPINE: Alignment: S-shaped curvature of the thoracolumbar spine Vertebrae: Vertebral body height is maintained without evidence of fracture Paraspinal space: Unremarkable Visualized retroperitoneal: Bilateral hydronephrosis. Please see separately dictated CT abdomen andpelvis. LUMBAR SPINE: Alignment: S-shaped curvature of the thoracolumbar spine. Vertebrae: Vertebral body heights are maintained without evidence of fracture. Paraspinal space: Aneurysmal dilatation of the abdominal aorta. Visualized retroperitoneal: Aneurysmal dilatation of the abdominal aorta. Focused and interbody analysis: No significant spinal canal stenosis IMPRESSION: 1. Left frontal scalp hematoma. No displaced calvarial or facial fracture. 2. No evidence of acute infarct, hemorrhage or intracranial mass lesion. 3. Degenerative changes of the cervical, thoracic and lumbar spine without acute fracture. 4. Please see separately dictated CT of the chest abdomen and pelvis for additional findings Workstation ID: [id number] Final Dictated by:MD Mo Jonathon K Dictated DT/TM:03/17/2024 9:01 Signed by:MD Mo Jonathon K Signed (Electronic Signature):03/17/2024 9:00 a * Exam Date Time Procedure Performing Provider Status 03/17/24 5:[address] Spine Lumbar/Sacral Consult Host Jordyn fatima; Final Notes: (OO CT Spine Lumbar/Sacral Consult) Reason For Exam: OSH CTs now available, pt w L dist hum fx OO CT Spine Lumbar/Sacral Consult EXAMINATION: CT of the head, face, cervical, thoracic and lumbar spine without contrast performed at [facility] CLINICAL HISTORY: OSH CTs now available, pt w L dist hum fx FINDINGS: BRAIN: Cerebral parenchyma: No evidence of acute territorial infarct or hemorrhage Extra-axial spaces: No significant extra-axial collection Ventricles: Normal size and configuration without hydrocephalus Mass effect: No midline shift or herniation Basal cisterns: Patent Posterior fossa: Unremarkable Calvarium: Left frontal scalp hematoma. No displaced calvarial fracture. FACE: Facial bones: Intact Paranasal sinuses: Mild mucosal thickening right maxillary sinus Orbits: Intact Base of skull: Intact Mandibles and TMJs: Normally located CERVICAL SPINE: Alignment: Intact Vertebrae: Vertebral body height is maintained. Advanced multilevel degenerative changes/osteophytes. No evidence of fracture. Prevertebral space: Unremarkable Focused axial interbody analysis: No significant spinal canal stenosis. Extraspinal neck soft tissue structures: Thyroid: Unremarkable Lung Apices: Please see separately dictated CT of the chest THORACIC SPINE: Alignment: S-shaped curvature of the thoracolumbar spine Vertebrae: Vertebral body height is maintained without evidence of fracture Paraspinal space: Unremarkable Visualized retroperitoneal: Bilateral hydronephrosis. Please see separately dictated CT abdomen andpelvis. LUMBAR SPINE: Alignment: S-shaped curvature of the thoracolumbar spine. Vertebrae: Vertebral body heights are maintained without evidence of fracture. Paraspinal space: Aneurysmal dilatation of the abdominal aorta. Visualized retroperitoneal: Aneurysmal dilatation of the abdominal aorta. Focused and interbody analysis: No significant spinal canal stenosis IMPRESSION: 1. Left frontal scalp hematoma. No displaced calvarial or facial fracture. 2. No evidence of acute infarct, hemorrhage or intracranial mass lesion. 3. Degenerative changes of the cervical, thoracic and lumbar spine without acute fracture. 4. Please see separately dictated CT of the chest abdomen and pelvis for additional findings Workstation ID: [id number] Final Dictated by:MD Mo Jonathon K Dictated DT/TM:03/17/2024 9:01 Signed by:MD Mo Jonathon K Signed (Electronic Signature):03/17/2024 9:00 a * Exam Date Time Procedure Performing Provider Status 03/17/24 5:[address] Spine Thoracic Consult Rivera Jordyn; Final Notes: (OO CT Spine Thoracic Consult) Reason For Exam: OSH CTs now available, pt w L dist hum fx OO CT Spine Thoracic Consult EXAMINATION: CT of the head, face, cervical, thoracic and lumbar spine without contrast performed at [facility] CLINICAL HISTORY: OSH CTs now available, pt w L dist hum fx FINDINGS: BRAIN: Cerebral parenchyma: No evidence of acute territorial infarct or hemorrhage Extra-axial spaces: No significant extra-axial collection Ventricles: Normal size and configuration without hydrocephalus Mass effect: No midline shift or herniation Basal cisterns: Patent Posterior fossa: Unremarkable Calvarium: Left frontal scalp hematoma. No displaced calvarial fracture. FACE: Facial bones: Intact Paranasal sinuses: Mild mucosal thickening right maxillary sinus Orbits: Intact Base of skull: Intact Mandibles and TMJs: Normally located CERVICAL SPINE: Alignment: Intact Vertebrae: Vertebral body height is maintained. Advanced multilevel degenerative changes/osteophytes. No evidence of fracture. Prevertebral space: Unremarkable Focused axial interbody analysis: No significant spinal canal stenosis. Extraspinal neck soft tissue structures: Thyroid: Unremarkable Lung Apices: Please see separately dictated CT of the chest THORACIC SPINE: Alignment: S-shaped curvature of the thoracolumbar spine Vertebrae: Vertebral body height is maintained without evidence of fracture Paraspinal space: Unremarkable Visualized retroperitoneal: Bilateral hydronephrosis. Please see separately dictated CT abdomen andpelvis. LUMBAR SPINE: Alignment: S-shaped curvature of the thoracolumbar spine. Vertebrae: Vertebral body heights are maintained without evidence of fracture. Paraspinal space: Aneurysmal dilatation of the abdominal aorta. Visualized retroperitoneal: Aneurysmal dilatation of the abdominal aorta. Focused and interbody analysis: No significant spinal canal stenosis IMPRESSION: 1. Left frontal scalp hematoma. No displaced calvarial or facial fracture. 2. No evidence of acute infarct, hemorrhage or intracranial mass lesion. 3. Degenerative changes of the cervical, thoracic and lumbar spine without acute fracture. 4. Please see separately dictated CT of the chest abdomen and pelvis for additional findings Workstation ID: [id number] Final Dictated by:MD Mo Jonathon K Dictated DT/TM:03/17/2024 9:01 Signed by:MD Mo Jonathon K Signed (Electronic Signature):03/17/2024 9:00 a * Exam Date Time Procedure Performing Provider Status 03/17/24 5:[address] Spine Cervical Consult [place] , Jordyn; Final Notes: (OO CT Spine Cervical Consult) Reason For Exam: OSH CTs now available, pt w L dist hum fx OO CT Spine Cervical Consult EXAMINATION: CT of the head, face, cervical, thoracic and lumbar spine without contrast performed at [facility] CLINICAL HISTORY: OSH CTs now available, pt w L dist hum fx FINDINGS: BRAIN: Cerebral parenchyma: No evidence of acute territorial infarct or hemorrhage Extra-axial spaces: No significant extra-axial collection Ventricles: Normal size and configuration without hydrocephalus Mass effect: No midline shift or herniation Basal cisterns: Patent Posterior fossa: Unremarkable Calvarium: Left frontal scalp hematoma. No displaced calvarial fracture. FACE: Facial bones: Intact Paranasal sinuses: Mild mucosal thickening right maxillary sinus Orbits: Intact Base of skull: Intact Mandibles and TMJs: Normally located CERVICAL SPINE: Alignment: Intact Vertebrae: Vertebral body height is maintained. Advanced multilevel degenerative changes/osteophytes. No evidence of fracture. Prevertebral space: Unremarkable Focused axial interbody analysis: No significant spinal canal stenosis. Extraspinal neck soft tissue structures: Thyroid: Unremarkable Lung Apices: Please see separately dictated CT of the chest THORACIC SPINE: Alignment: S-shaped curvature of the thoracolumbar spine Vertebrae: Vertebral body height is maintained without evidence of fracture Paraspinal space: Unremarkable Visualized retroperitoneal: Bilateral hydronephrosis. Please see separately dictated CT abdomen andpelvis. LUMBAR SPINE: Alignment: S-shaped curvature of the thoracolumbar spine. Vertebrae: Vertebral body heights are maintained without evidence of fracture. Paraspinal space: Aneurysmal dilatation of the abdominal aorta. Visualized retroperitoneal: Aneurysmal dilatation of the abdominal aorta. Focused and interbody analysis: No significant spinal canal stenosis IMPRESSION: 1. Left frontal scalp hematoma. No displaced calvarial or facial fracture. 2. No evidence of acute infarct, hemorrhage or intracranial mass lesion. 3. Degenerative changes of the cervical, thoracic and lumbar spine without acute fracture. 4. Please see separately dictated CT of the chest abdomen and pelvis for additional findings Workstation ID: [id number] Final Dictated by:MD Chely, Zach Burnett Dictated DT/TM:03/17/2024 9:01 Signed by:MD Chely, Zach Burnett Signed (Electronic Signature):03/17/2024 9:00 a * Exam Date Time Procedure Performing Provider Status 03/17/24 5:[address] Abdomen and Pelvis Consult Jordyn Geiger; Modified Notes: (OO CT Abdomen and Pelvis Consult) Reason For Exam: OSH CTs now available, pt w L dist hum fx OO CT Abdomen and Pelvis Consult EXAMINATION: CT of the chest abdomen and pelvis performed at [facility] on 03/15/2024 CLINICAL HISTORY: OSH CTs now available, pt w L dist hum fx COMPARISON: None TECHNIQUE: Axial 5 mm slices through the chest followed by 5 mm slices through the abdomen and pelvis after IVcontrast only FINDINGS: Normal thyroid. Heart and mediastinum reveal coronary artery disease with possible stents in the RCA. Small amount of reflux in the esophagus. There is skin thickening of the right breast with nonmass like density behind the right nipple. Normal axilla. Lung parenchyma reveals emphysematous changes. Small pneumatocele right lower lobe. No pneumothorax. No hemothorax. Normal liver, spleen, adrenals, pancreas. Heavily calcified aorta with aneurysm just below the renal arteries measuring 33 mm in AP dimension. No evidence of leak. Vascular disease propagates into the SMA and DORA with normal enhancement of the bowel. No obstruction. No ascites. Kidneys enhance normally. Mild dilation of the collecting systems bilaterally. Distended bladder. Endometrial thickening within the uterus. Endometrium measures 14 mm. No free fluid in the pelvis. No inguinal lymphadenopathy. Bones reveal age-appropriate degenerative changes. Right anterior rib fractures without evidence ofacute displacement or fracture lines. Chronic sternal fracture. Significant spondylotic changes at the cervicothoracic junction and lumbar spine. No evidence of acute fracture. IMPRESSION: 1. Moderate symmetric bilateral hydronephrosis. Findings are otherwise nonspecific. 2. Endometrial thickening concerning for neoplasm. 3. Abdominal aortic aneurysm. 4. Chronic fractures without evidence of acute osseous or visceral trauma. 5. Nonspecific findings in the right breast may related to hematoma. Correlation with the patient'smechanism and exam is needed. Diagnostic breast imaging can be offered as an outpatient as needed clinically. Workstation ID: [id number] Final Dictated by:MD Montgomery Seth Millard Dictated DT/TM:03/17/2024 9:52 Signed by:MD Montgomery Seth Millard Signed (Electronic Signature):03/17/2024 9:[address] Abdomen and Pelvis Consult ADDENDUM BEGINS Dr. Morrell was alerted to the abnormal findings via [place] text with read receipt. Workstation ID: [id number] ADDENDUM ENDS Final Dictated by:MD Montgomery Seth Millard Dictated DT/TM:03/17/2024 4:14 Signed by:MD Montgomery Seth Millard Signed (Electronic Signature):03/17/2024 4:14 p * Exam Date Time Procedure Performing Provider Status 03/17/24 5:[address] Chest Consult Rivera, Jordyn; Modified Notes: (OO CT Chest Consult) Reason For Exam: OSH CTs now available, pt w L dist hum fx OO CT Chest Consult ADDENDUM BEGINS Dr. Morrell was alerted to the abnormal findings via [place] text with read receipt. Workstation ID: [id number] ADDENDUM ENDS Final Dictated by:MD Montgomery Seth Millard Dictated DT/TM:03/17/2024 4:14 Signed by:MD Montgomery Seth Millard Signed (Electronic Signature):03/17/2024 4:[address] Chest Consult EXAMINATION: CT of the chest abdomen and pelvis performed at [facility] on 03/15/2024 CLINICAL HISTORY: OSH CTs now available, pt w L dist hum fx COMPARISON: None TECHNIQUE: Axial 5 mm slices through the chest followed by 5 mm slices through the abdomen and pelvis after IVcontrast only FINDINGS: Normal thyroid. Heart and mediastinum reveal coronary artery disease with possible stents in the RCA. Small amount of reflux in the esophagus. There is skin thickening of the right breast with nonmass like density behind the right nipple. Normal axilla. Lung parenchyma reveals emphysematous changes. Small pneumatocele right lower lobe. No pneumothorax. No hemothorax. Normal liver, spleen, adrenals, pancreas. Heavily calcified aorta with aneurysm just below the renal arteries measuring 33 mm in AP dimension. No evidence of leak. Vascular disease propagates into the SMA and DORA with normal enhancement of the bowel. No obstruction. No ascites. Kidneys enhance normally. Mild dilation of the collecting systems bilaterally. Distended bladder. Endometrial thickening within the uterus. Endometrium measures 14 mm. No free fluid in the pelvis. No inguinal lymphadenopathy. Bones reveal age-appropriate degenerative changes. Right anterior rib fractures without evidence ofacute displacement or fracture lines. Chronic sternal fracture. Significant spondylotic changes at the cervicothoracic junction and lumbar spine. No evidence of acute fracture. IMPRESSION: 1. Moderate symmetric bilateral hydronephrosis. Findings are otherwise nonspecific. 2. Endometrial thickening concerning for neoplasm. 3. Abdominal aortic aneurysm. 4. Chronic fractures without evidence of acute osseous or visceral trauma. 5. Nonspecific findings in the right breast may related to hematoma. Correlation with the patient'smechanism and exam is needed. Diagnostic breast imaging can be offered as an outpatient as needed clinically. Workstation ID: [id number] Final Dictated by:MD Montgomery Seth Millard Dictated DT/TM:03/17/2024 9:52 Signed by:MD Ulises, Oral Randall Signed (Electronic Signature):03/17/2024 9:51 a * Exam Date Time Procedure Performing Provider Status 03/17/24 3:[address] Elbow w/o Contrast Left Hakeem Waggoner; Final Notes: (CT Elbow w/o Contrast Left) Reason For Exam: Left distal humerus fx, preop CT Elbow w/o Contrast Left EXAMINATION: CT Elbow w/o Contrast Left CLINICAL HISTORY: Left distal humerus fx, preop COMPARISON: Radius 04/11/2024 and 03/17/2024 TECHNIQUE: CT Elbow w/o Contrast Left DOSE: Total Reported Dose Length Product (DLP) = 132.76 mGy.cm FINDINGS: Bones/Joints: Minimally comminuted transverse left humeral supracondylar fracture. Distal fracture fragment is slightly medial and anterior to the proximal fragment. Small osseous jeannine adjacent to the proximal humeral fracture fragment (series 603, image 20). No elbow dislocation. Mild osteoarthritis with osteophyte formation. Soft Tissues: Mild soft tissue swelling. External splint. Neurovascular: Unremarkable IMPRESSION: Minimally comminuted displaced left humeral supracondylar fracture. [place]: This study does not meet the requirements of [place] Act 112. Dr. Bj Patiño is the dictating resident. Finalized reports status indicates that the attending has reviewed the images and report, and agrees with the interpretation. Preliminary report status should be regarded as NOT interpreted by the attending radiologist. Workstation ID: [id number] Final Dictated by:DO Patiño Zachary Dictated DT/TM:03/17/2024 8:13 Resident:DO Patiño Zachary Signed by:MD Love Cristy N Signed (Electronic Signature):03/17/2024 8:11 a Vital Signs Most recent to oldest [Reference Range]: 1 2 3 Patient Weight 56.7 kg (03/24/24 3:08 AM) 55.6 kg (03/23/24 4:08 AM) 56.6 kg (03/22/24 5:44 AM) Temperature [36.5-37.9 DegC] 36.2 DegC *LOW* (03/24/24 8:05 AM) 36.6 DegC (03/24/24 3:09 AM) 36.7 DegC (03/23/24 11:45 PM) Heart Rate 63 bpm (03/24/24 8:05 AM) 74 bpm (03/24/24 3:09 AM) 82 bpm (03/23/24 11:45 PM) Respiratory Rate 20 br/min (03/24/24 8:05 AM) 20 br/min (03/24/24 3:09 AM) 20 br/min (03/23/24 11:45 PM) Blood Pressure 154/80mmHg (03/24/24 8:05 AM) 138/70mmHg (03/24/24 3:09 AM) 133/82mmHg (03/23/24 11:45 PM) Mean Blood Pressure 97 mmHg (03/24/24 8:05 AM) 88 mmHg (03/24/24 3:09 AM) 95 mmHg (03/23/24 11:45 PM) Cuff Pulse Pressure 74 mmHg (03/24/24 8:05 AM) 68 mmHg (03/24/24 3:09 AM) 51 mmHg (03/23/24 11:45 PM) BP Location # 1 Right Arm (03/24/24 8:05 AM) Right Arm (03/24/24 3:09 AM) Right Arm (03/23/24 11:45 PM) Social History Social History Type Response Tobacco Current every day sm oker, Cigarettes 1 Smoking Status Smoker, current stat us unknown Sex Sex Representation Female (finding) 11-2 cigarrettes a day Implantable Device List Procedure Provider Procedure Date Device Type Site Unknown Unknown 03/18/24 Unknown Unknown Device Identifier Serial Number Lot or Batch Number Manufacturing Date Expiration Date Distinct Identification Code MRI Safety Implantable Status Assigning Authority Unknown Unknown NA Unknown Unknown Unknown Unknown Active Unkn own Unknown Unknown NA Unknown Unknown Unknown Unknown Active Unkn own Unknown Unknown NA Unknown Unknown Unknown Unknown Active Unkn own Unknown Unknown NA Unknown Unknown Unknown Unknown Active Unkn own Unknown Unknown NA Unknown Unknown Unknown Unknown Active Unkn own Unknown Unknown NA Unknown Unknown Unknown Unknown Active Unkn own Unknown Unknown NA Unknown Unknown Unknown Unknown Active Unkn own Unknown Unknown NA Unknown Unknown Unknown Unknown Active Unkn own Unknown Unknown NA Unknown Unknown Unknown Unknown Active Unkn own Unknown Unknown NA Unknown Unknown Unknown Unknown Active Unkn own Unknown Unknown NA Unknown Unknown Unknown Unknown Active Unkn own Unknown Unknown NA Unknown Unknown Unknown Unknown Active Unkn own Unknown Unknown NA Unknown Unknown Unknown Unknown Active Unkn own EKG study * Contributor_system, [id number]: VERIFY, PERFORM Event Display: EKG Authored Date: Please click on link to see image. Anes H&P * MD Welch Lonnie M: MODIFY MD Welch Lonnie M: MODIFY, PERFORM MD Welch Lonnie M: PERFORM, SIGN MD Welch Lonnie M: SIGN, VERIFY MD Welch Lonnie M: VERIFY, MODIFY, MODIFY, MODIFY, MODIFY MD Mercedes Alana Ebbitt: MODIFY DO Bullock Joy: MODIFY Event Display: Anes H&P Authored Date: Patient: KAE TORREZ Age: 73 years Sex: Female : 1950 Associated Diagnoses: None Author: MD Welch Lonnie M Preoperative Information Pre-Operative Diagnosis: Humerus fx . Anesthiesia Preop Info: Procedure: ORIF left distal humerus Date: 03/17/24 15:15 Surgeons: MD Jono, Fercho Patel Diagnosis: . History of Present Illness KAE TORREZ is a 73 year old Female 54 Kg with a past medical history of COPD on home oxygen3 L, CAD status post stents last year, A-fib on Eliquis (last on 12 PM) and Clopidogrel (last on 12 AM), hypertension, hyperlipidemia, chronic anemia with baseline hemoglobin 8-9, mood disorder, ongoing tobacco abuse, who is presenting from an outside hospital as a transfer for left humeral fracture and sepsis (UTI) - now for above Patient stated that she fell on Thursday after standing up immediately from her bed and she did notwait after she stood up quickly and walked couple seconds for 4 seconds and then she fell on her face. As she stated that she passed out before hitting the ground, and she fell on her face on the ground. She did not go to the emergency department at [facility] until Thursday03/16/2024. She has had 2 stents in her heart due to ACS in 2022, and that she is on Eliquis and clopidogrel for that in the A-fib. She was told that her heart function was compromised because of that and she kristel carvedilol and losartan . Patient stated that a couple weeks she was hospitalized for heart failure exacerbation and she was given diuretics. She takes furosemide 40 mg and at home. And she is on 3 L at home, sats 96% at rest. WHen gets up without oxygen to walk to the bathroom Sat is 86. At [facility] On 03/15 her white blood cell count was 16.1 which down trended to 11.75 on the fourth, her BMP on the third showed sodium 136, potassium 3.6, she did have cardiac enzymes elevated but appears delta negative and they called NSTEMI type II due to her UTI. Her urine was cloudy on the third with elevated leukocyte esterase. EKG : AF with RVR ST changes concerning for inferior and anterolateral infarcts. prolonged QT NPO: 03/17 midnight Prior Airway/Anesthetics: none documented Access: PIV right AC Current infusions: none Ventilation settings: 3L NC - home dose Labs: BMP: Date Na K Cl HC03 BUN Cret Glu Ca 03/17/2024 00:46 137 3.3 93 35 9 0.93 76 8.8 CBC: Date WBC Hgb Hct Plts Neut, Abs 03/17/2024 00:46 9.8 8.9 28.6 376 Date: PT: PTT: INR: 03/17/24 00:46 14.6 1.2 Imaging: Reason For Exam Needed for pre operation given extensive cardiac history and heart failure 03/17 Echo TransTHORacic TTE Complete Summary 1. Normal left ventricular size and systolic function with no regional wall motion abnormalities. 2. Estimated ejection fraction 60-65%. 3. Normal diastolic function for age. 4. Normal right ventricular size and function. 5. No significant valvular abnormalities. 6. Normal estimated pulmonary artery systolic pressures. 7. No prior studies for comparison. Outside hospital imaging: CT scan of her head that did not show any bleeding, but there was an aneurysm noted on the on the CT scan. CT abdomen showed distended bladder with trabeculations, cib-[id number] male infrarenal abdominal aorta 3.3 cm, an enlarged endometrial cavity but there were no acute traumatic findings. The CT chest showed emphysematous changes in the lungs but no major traumatic events or findings in the chest either. Medical History Past medical history obtained and reviewed from the pre-procedure screening form as noted above. Any significant interval changes are noted below: Yes. Health Status Allergies: Allergic Reactions (Selected) Severity Not Documented Bee stings- Swelling. Doxycycline- Vomiting.. Medications: Medication List (Selected) . Histories Procedure History: No active procedure history items have been selected or recorded.. 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 Smoker, current status unknown Other Tobacco Use: Never used other tobacco products Alcohol: Recreational Drugs: . Physical Examination VS/Measurements: Vital Signs 03/17/2024 03:10 EST Temperature 36.2 DegC LOW Temperature Route Temporal Heart Rate 106 bpm Respiratory Rate 18 br/min Systolic Blood Pressure 100 mmHg Diastolic Blood Pressure 64 mmHg BP Location # 1 Right Arm BP Cuff Size Regular Mean Blood Pressure 76 mmHg Cuff Pulse Pressure 36 mmHg Oxygen Flow 3 L/min Oxygen Therapy Nasal cannula SpO2 100 % , Weight 54 kg. General: Alert and oriented, No acute distress. Airway: Mallampati classification: II (soft palate, fauces, uvula visible). Mouth: Within normal limits, Teeth ( Edentulous ). Respiratory: Lungs are clear to auscultation. Cardiovascular: irregular, AF, rate controlled . Anesthesiologist Assessment and Plan Problems: No previous anesthetic complications, No a/w concerns. Cardiac risk factors: CAD, CHF. Risk of major adverse cardiac event (Revised Cardiac Risk Index) Disposition: No further testing or evaluation indicated preoperatively, may proceed with procedure as scheduled. ASA Classification: Class III. Anesthetic Plan: Premedication. Anesthetic technique discussed: General anesthesia, Regional anesthesia. Induction discussed: Intravenously. Airway plan discussed: Laryngeal mask airway, Oral endotracheal tube. Risks discussed: Nausea-vomiting, Headache, Sore throat, Dental injury, Eye injury, Allergic reaction, Serious complications, Nerve damage, Aspiration. Informed consent: Signed by patient. Special techniques and precautions discussed: Aspiration precautions, Nausea- vomiting, Transfusion of blood or blood products, Postoperative ICU, Mechanical ventilation. History, Physical Exam, Assessment and Plan Completed: 03/17/2024 04:41:00, MD Ponce, Bobby. I have reviewed her chart. hx hf prev ef but reassuring echo yesterday (03/17/2024) with normal diastology. cad but now > 12 months (certainly the 6) from stents. WRT her most important home meds, on amio, ppi, symbicort, umeculidium in house. Coreg held in setting of uti/sepsis already present on transfer from OSH per notes. At this point, HD stable and not meeting sofa (or even sirs).On ceftriaxone not again due until 0300 03/19/2024. hg 8.4, rather chronic for her. Blood available.About 48 hours off plavix and eliquis at this point. 05/18 dung Welch MD attdg anes/ccm Electronic Signature on File Electronically Reviewed/Signed by: Louis Welch MD Author Signature Dt/Tm:03/18/2024 08:33 AM Department of Anesthesia LMF * MD Petros, Mikey: MODIFY, PERFORM Event Display: Pre-OP H & P Authored Date: [id number] PRE-OPERATIVE HISTORY AND PHYSICAL Name: KAE TORREZ Patient Number: [id number] : 1950 Date of Service: 03/17/2024 REASON FOR CONSULTATION: Closedleft distal humerus fracture CONSULTING SERVICE: Emergency Department TIME OF CONSULTATION: direct admit, 14 TIME OF EVALUATION: 29 HISTORY OF PRESENT ILLNESS: Patient is aleft-hand [id number], who sustained a ground levelfall onto an outstretchedleftupper extremity while at her home. Patient noticed immediate pain about theupper extremity and when this did not improve, decided to present for further evaluation at [facility] [place] on Thursday03/14/24. Patient was subsequently transferred to [facility] Emergency Department for further management of a left distal fracture and medical management. Orthopaedic surgery was consulted for further evaluation and recommendations. Patient denies anyheadstrike or loss of consciousness. At the time of evaluation, patient denies any numbness or tingling. REVIEW OF SYSTEMS: All other systems are negative PAST MEDICAL HISTORY: COPD on newly inc 3L home O2, Afib on Eliquis, 1/2ppd smoker, MA, hx alc abuse, stroke, brain/breast cancer, chr anemia, CAD on Plavix, (AC held @ [place]) PAST SURGICAL HISTORY: Bone marrow aspiration, ganglion cyst removal, foot surgery, exploratory laparotomy, shoulder surgery, skin grafting, appendectomy, cholecystectomy, bilateral tubal ligation FAMILY HISTORY: No family or personal history of blood clots or bleeding disorders. No family or personal historyof lifethreatening complications with anesthesia. SOCIAL HISTORY:1/2 ppd, no current EtOH intake, no recreational drug history PHYSICAL EXAM: On exam, the patient is well-appearing in no acute distress.Mood and affect are normal.Alert and cooperative with examination.Head is normocephalic, atraumatic.Neck is supple, trachea midline.Nonlabored breathing.Equal chestrise bilaterally.On examination of theleft upper extremity, skin is intact.Tender to palpation about the humerus with swelling.Otherwise, patient demonstrates painless range of motion of the wrist, hand, fingers.Sensation is intact to light touch along the median, ulnar, radial, axillary nerve distributions with par esthesias about the long finger fingertip.Motor is intact.Able to give a thumbs up, okay sign, spread and cross index and longfingers, make a composite fist.Fires biceps, triceps, deltoid, wrist flexors, wrist extensors, finger flexors, hand intrinsics.Radial pulse 2+.Brisk capillary refill in all 5 fingers. IMAGING: Radiographs of theleft elbow obtained and reviewed,demonstrate evidence ofa left distal humerus fracture. ASSESSMENT: Patient is aleft-hand dominant, 73-year-old female with aleftdistal humerus fracture. Closed and neurovascularly intact. PLAN: -We discussed the risks and benefits of operative versus nonoperative management of her injury. -Plan for operative management, time and date pending surgeon and anesthesia availability. -Nonweightbearingleftupper extremity.Placed into posterior slab splint with outriggers, sling for comfort. -[facility] for possible OR 03/17/24 -Medicine contacted for co-management, recs appreciated given significant medical cormorbidities and recent increase to home oxygen requirement -NPO -CT left elbow ordered with recons -Patient was staffed with attending surgeon Dr. De La Cruz - Please [place] Text [facility] OrthoResidentOn Callwith any questions or concerns. Electronic Signature on File Electronically Reviewed/Signed by: Mikey Morrell MD Author Signature Dt/Tm:03/17/2024 08:08 AM Resident Division of Orthopaedics Electronically Reviewed/Signed by: Fercho De La Cruz MD Cosigner Signature Dt/Tm: 03/17/2024 11:57AM Division of Orthopaedics [place] Surgical operation note * MD Timo, Keenan: MODIFY, PERFORM, MODIFY MD Dimas, Corby Cantu: MODIFY Event Display: .Operative Report Authored Date: OPERATIVE REPORT Name: KAE TORREZ Patient Number: [id number] : 1950 Date of Service: 03/18/2024 1635 SURGEON: Corby Cochran MD DIRECTOR SOFTWARE DEVELOPMENT(s): Keenan Greenwood MD, Tomasa Lennon MD, Nick Jasso MD PREOPERATIVE DIAGNOSIS: 1) Left distal humerus fracture 2) Type II NSTEMI 3) Sepsis secondary to urinary tract infection 4) COPD on home O2 5) CAD s/p PCI on Plavix 6) Atrial fibrillation on Eliquis 7) Iatrogenic coagulopathy due to above mentioned anticoagulants 8) Chronic anemia 9) Tobacco use disorder POSTOPERATIVE DIAGNOSIS: 1) Left distal humerus fracture 2) Type II NSTEMI 3) Sepsis secondary to urinary tract infection 4) COPD on home O2 5) CAD s/p PCI on Plavix 6) Atrial fibrillation on Eliquis 7) Iatrogenic coagulopathy due to above mentioned anticoagulants 8) Chronic anemia 9) Tobacco use disorder OPERATION PERFORMED: 1) Left distal humerus supracondylar fracture open reduction internal fixation 2) Left ulnar neurolysis and anterior transposition 3) Independent Intra-Operative Interpretation of Fluoroscopy ANESTHESIA: General ANTIBIOTICS: Ancef 2g IV FLUIDS: 1200 mL Crystalloid TENORIO: 550 mL COMPLICATIONS: None SPECIMENS: None SURGICAL IMPLANTS: Synthes 3-hole 2.7/3.5mm VA-LCP posterolateral distal humerus plate and associated screws, Synthes 2-hole left medial distal humerus plate and associated screws ESTIMATED BLOOD LOSS: 50 mL INDICATIONS: Kae is a 73-year-old female with a complicated past medical history as noted above. She presented to [facility] on March 14 after suffering a fall March 12. She was found to have a left olecranon fracture and left orbital ecchymosis. Due to concern for need for total elbow arthroplasty with a simple transverse supracondylar humerus fracture, she was transferred to [facility] for further care. She was transferred to the internal medicine service given her complex medical history and ongoing sepsis with a urinary tract infection that was appropriately treated with ceftriaxone. On evaluation, we noted the supracondylar humerus fracture. Given her mechanism, this is a pathologic fracture likely due to osteoporosis that would not occur in normal bone quality after low-energy mechanism. This was discussed with our orthopedic trauma and shoulder and elbow colleagues who both agreed that this fracture pattern was most amenable to open reduction internal fixation. She had negative blood cultures, and was clinically stable and otherwise optimized by internal medicine and anesthesia teams, and so we felt operative intervention was appropriate on 03/18. The risks, limitations, benefits and alternatives to all treatment options were discussed with the patient. Risks including but not limited to bleeding, infection, damage to surrounding structures, nonunion, malunion, need for further surgery, symptomatic hardware or hardware failure, o ngoing pain. The patient elected to proceed with the above listed procedures (see "Operation Performed" above for full details) with Dr. Cochran on 03/18/2024. All questions and concerns were answered and addressed. The informed consent was signed. FINDINGS: Transverse supracondylar humerus fracture, improved alignment after open reduction internal fixation. Osteopenia. OPERATION: The patient was transferred to the operating room on 03/18/2024. The patient was intubated by anesthesia and positioned prone on a reverse diving board table with attention to padding of bony prominences. A radiolucent plexiglass table was placed under the left elbow and blankets were secured above this such that the arm was resting with the elbow flexed to 90 degrees, and during positioning and prep and throughout the case, care was taken to avoid hyperextension of the left shoulder. The patient's left upper extremity was then pre-cleansed with alcohol, sterilely prepped (DuraPrep) and drapedin standard orthopaedic fashion. A final time-out was conducted in accordance with [facility] protocol. After all members of the surgical team agreed upon the details of the procedure, a sterile tourniquet was applied to the left arm. Left arm was elevated and Esmarch exsanguinated, tourniquet was insufflated. We carried posterior approach to the left distal humerus using. Tricipital windows. We incised skin andsubcutaneous tissue, keeping our incision just radial to the olecranon, and otherwise midline. We made full-thickness skin flaps once we encountered the triceps fascia. We then incised triceps fasciaover the posterior lateral aspect of the humerus. Care was taken to avoid dissecting more proximal than the point of the distal humerus to avoid encountering our radial nerve as proximal dissection and fixation was not necessary given the level of her fracture. We elevated subperiosteally over the distal humerus. We encountered fracture and fracture hematoma which was debrided. Care was taken to protect the ulnar nerve during any medial dissection or approach. Once the lateral epicondyle and distal humerus was well exposed, we turned our attention to the medial tricipital window. We identified the ulnar nerve proximally and released this along its course. Under fascia, Chris's ligament, and FCU fascia distally. This was tagged with a vessel loop. Care was taken to protect the ulnar nerve throughout the case. We then exposed the medial epicondyle and distal humerus. Medial aspect of the distal humerus fracture was identified, fracture hematoma and periosteal edges were debrided. Once happy with our exposure, we turned our attention to reduction and fixation. We placed a medialand lateral column K wire in the distal aspect of the fracture. We reduced the fracture using K wires as joysticks and had good cortical reads medially and laterally. K wires were advanced up the columns. We noted a small amount of posterior comminution and gap. We improved our reduction with a pointed reduction clamp to apply compression laterally. We selected a Synthes 3 hole posterolateral distal humerus locking plate for fixation. This was provisionally fixed with K wires. We placed two 3.5cortical screws proximally to reduce to the shaft for excellent fit. We placed 2 locking screws distally in the capitellum. We placed two 2.7 cortical screws crossing into the distal articular block,taking care to avoid any intra-articular penetration. We placed an additional locking screw in the proximal segment. AP and lateral fluoroscopic images demonstrated acceptable alignment of the distalhumerus fracture and appropriate hardware fixation. We turned our attention to fixation of the medial column. We selected a Synthes 2 hole medial distal humerus plate. We provisionally secured this with K wires and obtain radiographs to ensure was in appropriate placement. We placed a medial columnscrew distally to compress across our fracture. We placed a cortical screw proximally in the shaft to reduce the plate to bone. We placed an additional 3.5 cortical screw in the proximal fragment, and an additional locking screw in the proximal fragment. We placed two 2.7 locking screws in the distal articular block. At this point, the supracondylar humerus fracture was now well-fixed. AP obliqueand lateral fluoroscopic images demonstrated appropriate alignment of her distal humerus fracture and hardware in appropriate placement with no intra-articular penetration. The left elbow was stable with smooth range of motion from full extension to approximately 120 degrees of flexion, and full pronation and supination without any mechanical blocks. We did note that the ulnar nerve was unstable with flexion and extension, and so we performed subcutaneous anterior transposition, and secured this with a fascial band of FCU that was elevated and secured with 0 Vicryl in [id number] fashion.The ulnar nerve was now stable in its anterior position, and without any evidence of areas of compression proximally, distally, at the medial intermuscular septum or at her area of transposition withFCU fascial sling. The incisions were thoroughly irrigated with sterile saline. The deep fascia was closed with interrupted 0 Vicryl sutures. The subcutaneous tissue of all incisions was closed with interrupted 2-0 Monocryl sutures then 2- 0 Monocryl in running fashion, followed by interrupted horizontal mattress sutures in the skin with 3-0 Nylon. The operative extremity was cleansed and sterile dressings were applied (Xeroform, 4x4s, Webril, and a well-padded posterior slabsplint with lateral outrigger). The tourniquet was deflated after 120 minutes of inflation during the procedure. Hemostasis was achieved with electrocautery. The patient was extubated by anesthesia and transferred to PACU in stable condition. Dr. Cochran was present for the entire duration of the procedure. Post-Operative Plan: -Management per internal medicine -Maintain coffee cup nonweightbearing (less than 5 pounds) to the left upper extremity, sling -PT/OT evaluation postoperatively -Post-Operative Antibiotics: Ancef 2g IV q8H x 2 doses from Ortho point of view; may continue ceftriaxone per primary for UTI -DVT PPX: Lovenox 30 mg BID beginning on postoperative day 0 at 2100; please hold Plavix and Eliquis; patient may resume home anticoagulation on discharge -Post-Operative X-Rays: Left elbow radiographs AP and lateral views ordered -Tenorio: Per primary, recommend discontinuing when mobilizing -Dressing: Well-padded posterior slab splint to remain in place until follow-up -Pain control; ice and elevation of the left upper extremity -Advance diet as tolerated; saline lock IV fluid with adequate PO intake from Ortho point of view -Disposition: Floor; will arrange follow-up in 2 weeks for suture removal MRR I was present and scrubbed forthe entire procedure. I agree with the operative report as written by my resident/fellow which I have personally reviewedwith addenda made as necessary. Corby Cochran MD DPT Orthopaedic Trauma [facility] 03/21/2024 10:55:17 Electronic Signature on File Electronically Reviewed/Signed by: Keenan Greenwood MD Author Signature Dt/Tm:03/20/2024 02:33 PM Resident Division of Orthopaedics Electronically Reviewed/Signed by: Corby Cochran MD Cosigner Signature Dt/Tm: 03/21/2024 10:55AM Division of Orthopaedics MR Medicine Inpt Consult * MD Love, Habib: MODIFY, MODIFY, PERFORM MD Jordan, Christopher Lima: MODIFY Event Display: Medicine Inpt Consult Authored Date: [id number] Subjective 73-year-old female past medical history of COPD on home oxygen 3 L, CAD status post stents last year, A-fib on Eliquis, hypertension, hyperlipidemia, chronic anemia with baseline hemoglobin 8-9, mooddisorder, ongoing tobacco abuse, who is presenting from an outside hospital as a transfer for left humeral fracture to orthopedics and were consulted from orthopedics for co-management Patient stated that she fell on Thursday after standing up immediately from her bed and she did notwait after she stood up quickly and walked couple seconds for 4 seconds and then she fell on her face. As she stated that she passed out before hitting the ground, and she fell on her face on the ground. She did not go to the emergency department at [facility] until Thursday03/16/2024. So since Thursday she has been having some pain with her left arm but has been able to manage herself with her daughter that been helping her shower and take care of her overall health. Patient stated that at the time of the fall she did not have any symptoms of shortness of breath, palpitations, chest pain or anything like that. He did not have any vasovagal symptoms. Patient stated that about 2 weeks or so she had an episodes of shakiness that was uncontrollable and involuntary in the bathroom and her daughter got her just before she fell, which she was aware of these shakiness, she did urinate herself, or experience any tongue bite or any auras before or after these movements that lasted couple of minutes. Patient never had any seizure activities or epilepsy diagnosis, and is not onantiseizure medications. She stated that this time is different from having the shakiness and then that her daughter did not witness her having any of this at this fall. She also did not have anyof the posterior preseizure symptoms. Of note patient had 2 stents in her heart due to ACS in 2022, and that she is on Eliquis and clopidogrel for that in the A-fib. She stated that she was told that her heart function was compromised because of that and she is on carvedilol and losartan I presume for GDMT but not sure. Patient stated that a couple weeks she was hospitalized for heart failure exacerbation and she was given diuretics. She takes furosemide 40 mg and at home. And she is on 3 L at home she used to be on 2 L butthey upped her on that hospitalization to 3 L. At the outside hospital they did a lot of imaging and a lot of x-rays. X-rays over her body basically showed not much of a concern for fractures except on the left humeral fracture for which she was transferred for possible Ortho procedure and she is currently NPO. They also did a CT scan of her head that did not show any bleeding, but there was an aneurysm noted on the on the CT scan. CT abdomen showed distended bladder with trabeculations, [id number] male infrarenal abdominal aorta 3.3 cm, an enlarged endometrial cavity but there were no acute traumatic findings. The CT chest showed emphysematous changes in the lungs but no major traumatic events or findings in the chest either.Patient blood pressure has been multi soft with lowest blood pressures as an outside hospital of 85/55 and as high as 117/58. On 03/15 her white blood cell count is in outside hospital showed 16.1which down trended to 11.75 on the fourth, her BMP on the third showed sodium 136, potassium 3.6, she did have cardiac enzymes elevated but appears delta negative and they called NSTEMI type II due to her UTI. Her urine was cloudy on the third with elevated leukocyte esterase. Review of Systems A 14 point review of symptoms was completed and found to be otherwise negative subsequent positivesnoted above in the HPI Objective Vitals & Measurements T:36.2C TMIN:36.0C TMAX:36.2C HR:106(Monitored) RR:18 BP:100/64 SpO2:100% Oxygen Flow:3(L/Min) Oxygen Therapy:Nasal cannula WT:54.100kg(Dosing) WT:54.1kg Input and Output - Last 24 hours (Last 8 hours) Total In: 0 (0) Total Out: 1000 (1000) Total Balance: -1000 (-1000) Indwelling Urethra:1000 (1000) Physical Exam General:NAD, alert and cooperative. Appears stated age and is well nourished. HEENT:EOMI, anicteric, conjunctiva without injection, MMM, no JVD, has bruising and small hematoma on the left side of scalp and upper face CV:Distant heart sounds, S1 S2 present with no murmur, gallops, rubs. No noted edema. Lungs:low air flow on the lungs, no wheezing. No increased WOB. On 3L NC. Abdomen:Soft, NTND, no palpable hepatosplenomegaly. Normoactive BS MSK:no gross deformities noted, Left upper extremity wrapped in place limited movement due to pain but able to move, 5/5 strength in rest of Extremities Neuro:No facial asymmetry at rest or with activation. No focal deficits. Skin:Warm, dry, intact, with no noted rash Lab Results Lab Results - Last 24hrs Na: 137 mmol/L (03/17/24 00:46:00) K:3.3 mmol/LLow (03/17/24 00:46:00) Cl-:93 mmol/LLow (03/17/24 00:46:00) HCO3:35 mmol/LHigh (03/17/24 00:46:00) Anion Gap: 9 mmol/L (03/17/24 00:46:00) BUN: 9 mg/dL (03/17/24 00:46:00) Cret: 0.93 mg/dL (03/17/24 00:46:00) eGFR CKD-EPI: 64 mL/min/1.73 m2 (03/17/24 00:46:00) Glu: 76 mg/dL (03/17/24 00:46:00) Ca: 8.8 mg/dL (03/17/24 00:46:00) WBC: 9.82 K/uL (03/17/24 00:46:00) Hgb:8.9 g/dLLow (03/17/24 00:46:00) Hct:28.6 %Low (03/17/24 00:46:00) RBC:2.9 M/uLLow (03/17/24 00:46:00) MCV:98.6 fLHigh (03/17/24 00:46:00) MCHC:31.1 g/dLLow (03/17/24 00:46:00) MCH: 30.7 pg (03/17/24 00:46:00) RDW: 14.1 % (03/17/24 00:46:00) Plts:376 K/uLHigh (03/17/24 00:46:00) MPV:8.8 fLLow (03/17/24 00:46:00) INR:1.2High (03/17/24 00:46:00) PT:14.6 secondsHigh (03/17/24 00:46:00) Vitamin D, 25-Hydroxy: 39 ng/mL (03/17/24 00:46:00) ABO/Rh: O POSITIVE (03/17/24 01:19:00) Antibody Scr: NEGATIVE (03/17/24 00:46:00) Expires at 0600AM on: 03/20/2024 (03/17/24 00:46:00) R Number: [id number] (03/17/24 00:46:00) Component: RED CELLS (03/17/24 00:46:00) # Units: 0 (03/17/24 00:46:00) B Comments: CALLED FOR 2ND PINK 03/17/24 010 LUCÍA ASHLEY (03/17/24 00:46:00) Assessment/Plan 73-year-old female past medical history of COPD on home oxygen 3 L, CAD status post stents last year, A-fib on Eliquis, hypertension, hyperlipidemia, chronic anemia with baseline hemoglobin 8-9, mooddisorder, ongoing tobacco abuse, who is presenting from an outside hospital as a transfer for left humeral fracture to orthopedics and were consulted from orthopedics for co-management #Syncope -Slightly due to rising up too quickly due to orthostatic hypotension as well as possibly having softer pressures at home due to sepsis from UTI, as well as and hypertensives -Obtain EKG, troponin,echocardiogram. Put patient on telemetry while on floors -ObtainTSH #Left humeral fracture Defer to orthopedics, patient at this time is n.p.o., Recommend consulting cardiology and pulmonology for preopclearance,patient surgery might get delayed given herchronic complicated cardiac and pulmonary condition. #CADstatus post stents Recommend holding clopidogrel -Obtain EKG and troponins -Obtain cardiologypreopclearance #NSTEMI type IIdue tosepsis -On outside hospital record appears to haveelevated troponins with delta negativeand no signs on EKGforacute STEMI however there weresome T wave inversions -Likely type II but will obtain troponins and repeat EKGwill continue to trend troponins until delta negative. -Continue to treat underlying infection #Heart failure with EF of55 to 60%on reported outside record echoon 03/04 Hold furosemide at this time givenlow mapsand soft blood pressures, patient is dry on physical exam. #Prolonged QT -Reported on EKG from outside hospital QT was reported at 550 -Switched Zofran to Tigan. Will hold onQT prolonging medications #Sepsis due to UTI Patient presented with white blood cell count of 16 on March 15 and then it continued to trend downwith treatment of ceftriaxone. Patient also had CT scan that showed trabeculation and distention of herbladder. As well as leukocyteEstracepositive anddirty urine. -Continue ceftriaxone 1 gevery 24 hours for 5 to 7 days -Will obtain urine culture,and blood culturesdespiteER blood cultures being negative on outside hospital #A-fib Recommendtelemetry, and obtain EKG at this time. Currently not in RVR,continue to hold carvedilol,would also recommend holding Eliquis at this timegiven that the patient might need a procedure. But Eliquis and clopidogrel will have to beresumedas soon as possible after procedure. #Anemia -Stable at this time #Hypothyroidism Continue levothyroxine #Chronic hypoxic respiratory failure due to COPD Continue home oxygen at 3 L, would recommend maintainingsaturation tween [id number],will start DuoNeb every 6 hours for shortness of breath Consult pulmonology for preopclearance. Order PFTs ifable to inpatient. The orderis in. - ImagingOSH did not show fluids on the lungs Chronic conditions -Continue levothyroxine for hypothyroidism -Can hold on atorvastatin for her hyperlipidemia -Can restart Aisha for neuropathy Full code SCD for DVT Diet: NPO Attestation Pt was seen and evaluated by me in consultation from Orthopedic service and I agree w/ this assessment as documented by Dr Aleman Electronic Signature on File Electronically Reviewed/Signed by: James Aleman MD Author Signature Dt/Tm:03/17/2024 04:07 AM Resident Division of Internal Medicine Electronically Reviewed/Signed by: Christopher Ortega MD Cosigner Signature Dt/Tm: 03/23/2024 11:19AM Division of Internal Medicine - Hospitalist .D/C Summary * MD Sin, Magen-Ing: MODIFY MD Sin, Magen-Ing: MODIFY Event Display: .D/C Summary Authored Date: [facility] For medical concerns, call: . Address: [address] [place] [address] [id number] (MOBILE) [phone] (ALTERNATE) :1950 . Date of Admission:03/16/2024 Date of Discharge:03/24/2024 Physician:MD Vogt Shiau-Ing Service:Internal Medicine Discharge Disposition[facility] am scribing for and in the presence ofFrancesca Vogt MD. I, Dr. Francesca Vogt, have personally performed the physical exam and review and edit the instruction/summary. I verify that the history, physical exam and recommendation as documented in the note by the scribe are accurate Primary Care Provider/Phone: MD CORTES MARK S (BUSINESS) [phone] (FAX BUSINESS) Principal Diagnosis: Closed fracture of left distal humerus Other Diagnoses: Anemia Hypokalemia Paroxysmal A-fib Hypomagnesemia Long QT interval Coronary artery disease involving platinum heart Chronic hypoxic respiratory failure, on home oxygen therapy Chronic obstructive pulmonary disease Major Tests and Procedures: Left humerus ORIF 03/18/2024 (03/17/2024 01:54 EST XR Elbow Complete 3+ Views Left) [1] (03/17/2024 01:54 EST XR Forearm 2 Views Left) [2] (03/17/2024 01:54 EST XR Hand Complete 3+ Views Left) [3] (03/17/2024 01:54 EST XR Humerus Left) [4] (03/17/2024 01:54 EST XR Shoulder Complete 2+ Views Left) [5] (03/17/2024 01:54 EST XR Wrist Complete 3+ Views Left) IMPRESSION: Left humeral displaced supracondylar fracture. [6] (03/17/2024 01:54 EST XR Knee 1 or 2 Views Left) IMPRESSION: No acute osseous abnormality in the left knee. [7] (03/17/2024 03:[address] 3D Image Recon Indep Wkstation) IMPRESSION: Displaced transverse supracondylar distal humerus fracture. [8] (03/17/2024 03:[address] Elbow w/o Contrast Left) IMPRESSION: Minimally comminuted displaced left humeral supracondylar fracture. [9] (03/17/2024 05:[address] Abdomen and Pelvis Consult) [10] (03/17/2024 05:[address] Chest Consult) IMPRESSION: 1. Moderate symmetric bilateral hydronephrosis. Findings are otherwise nonspecific. 2. Endometrial thickening concerning for neoplasm. 3. Abdominal aortic aneurysm. 4. Chronic fractures without evidence of acute osseous or visceral trauma. 5. Nonspecific findings in the right breast may related to hematoma. Correlation with the patient'smechanism and exam is needed. Diagnostic breast imaging can be offered as an outpatient as needed clinically. [11] (03/17/2024 05:[address] Spine Cervical Consult) [12] (03/17/2024 05:[address] Spine Lumbar/Sacral Consult) [13] (03/17/2024 05:[address] Spine Thoracic Consult) [14] (03/17/2024 05:[address] Head Consult) [15] (03/17/2024 07:[address] Face Consult) IMPRESSION: 1. Left frontal scalp hematoma. No displaced calvarial or facial fracture. 2. No evidence of acute infarct, hemorrhage or intracranial mass lesion. 3. Degenerative changes of the cervical, thoracic and lumbar spine without acute fracture. 4. Please see separately dictated CT of the chest abdomen and pelvis for additional findings [16] (03/17/2024 07:24 EST Echo TransTHORacic TTE Complete) Summary 1. Normal left ventricular size and systolic function with no regional wall motion abnormalities. 2. Estimated ejection fraction 60-65%. 3. Normal diastolic function for age. 4. Normal right ventricular size and function. 5. No significant valvular abnormalities. 6. Normal estimated pulmonary artery systolic pressures. 7. No prior studies for comparison. [17] (03/18/2024 19:16 EST XR Elbow Complete 3+ Views Left) IMPRESSION: Left distal humerus ORIF without immediate hardware complication. [18] Lab Results Test Name Test Result Date/Time Na 135 mmol/L 03/24/2024 05:22 EST K 4.1 mmol/L 03/24/2024 05:22 EST Cl- 91 mmol/L 03/24/2024 05:22 EST HCO3 34 mmol/L 03/24/2024 05:22 EST Anion Gap 10 mmol/L 03/24/2024 05:22 EST BUN 11 mg/dL 03/24/2024 05:22 EST Cret 0.87 mg/dL 03/24/2024 05:22 EST eGFR CKD-EPI 69 mL/min/1.73 m2 03/24/2024 05:22 EST Glu 117 mg/dL 03/24/2024 05:22 EST Ca 9.3 mg/dL 03/24/2024 05:22 EST Mg 1.6 mg/dL 03/24/2024 05:22 EST PO4 4.3 mg/dL 03/24/2024 05:22 EST WBC 11.49 K/uL 03/24/2024 05:23 EST Hgb 7.6 g/dL 03/24/2024 05:23 EST Hct 23.7 % 03/24/2024 05:23 EST RBC 2.47 M/uL 03/24/2024 05:23 EST MCV 96.0 fL 03/24/2024 05:23 EST MCHC 32.1 g/dL 03/24/2024 05:23 EST MCH 30.8 pg 03/24/2024 05:23 EST RDW 15.2 % 03/24/2024 05:23 EST Plts 413 K/uL 03/24/2024 05:23 EST MPV 8.5 fL 03/24/2024 05:23 EST Type of Diff: AUTO 03/19/2024 05:38 EST Immature Gran% 0.7 % 03/19/2024 05:38 EST Neut% 83.9 % 03/19/2024 05:38 EST Lymph% 8.6 % 03/19/2024 05:38 EST Mora% 6.8 % 03/19/2024 05:38 EST Baso% 0.0 % 03/19/2024 05:38 EST Eos% 0.0 % 03/19/2024 05:38 EST Immat Gran, Abs 0.06 K/uL 03/19/2024 05:38 EST Neut, Abs 7.49 K/uL 03/19/2024 05:38 EST Lymph, Abs 0.77 K/uL 03/19/2024 05:38 EST Mora, Abs 0.61 K/uL 03/19/2024 05:38 EST Baso, Abs 0.00 K/uL 03/19/2024 05:38 EST Eos, Abs 0.00 K/uL 03/19/2024 05:38 EST INR 1.2 03/17/2024 00:46 EST PT 14.6 seconds 03/17/2024 00:46 EST HCV Ab NONREACTIVE 03/17/2024 06:11 EST Alb 2.8 g/dL 03/24/2024 05:22 EST Transferrin 193 mg/dL 03/17/2024 06:12 EST Vitamin D, 25-Hydroxy 39 ng/mL 03/17/2024 00:46 EST Troponin T ( 5th Gen) 49 ng/L 03/17/2024 08:25 EST Troponin T ( 5th Gen) Delta 1-hour delta NEGATIVE 03/17/2024 08:25 EST BNP, NT-Pro 1188 pg/mL 03/17/2024 00:46 EST Gluc Meter 99 mg/dL 03/18/2024 10:19 EST TSH 2.06 uIU/mL 03/17/2024 06:11 EST Retic Hgb 29.7 pg 03/17/2024 06:11 EST Retic (%) 2.19 % 03/17/2024 06:11 EST Imm. Retics 19.8 % 03/17/2024 06:11 EST Ferritin 61.6 ng/mL 03/17/2024 06:12 EST Fe Sat 19 % 03/17/2024 06:12 EST Iron 43 ug/dL 03/17/2024 06:12 EST Total IBC 228 ug/dL 03/17/2024 06:12 EST Retics (abs) 62.9 K/uL 03/17/2024 06:11 EST ABO/Rh O POSITIVE 03/19/2024 11:45 EST Antibody Scr NEGATIVE 03/19/2024 11:45 EST Expires at 0600AM on 03/22/2024 03/19/2024 11:45 EST R Number [id number] 03/19/2024 11:45 EST Component RED CELLS 03/19/2024 11:45 EST # Units 0 03/19/2024 11:45 EST B Comments CALLED FOR 2ND PINK 03/17/24 0102 LUCÍA ASHLEY 03/17/2024 00:46 EST Brief History of Present Illness: Per Pre-Op H&P: Patient is aleft-hand [id number], who sustained a ground levelfall onto an outstretchedleftupper extremity while at her home. Patient noticed immediate pain about theupper extremity and when this did not improve, decided to present for further evaluation at [facility] on Thursday03/14/24. Patient was subsequently transferred to [facility] Emergency Department for further management of a left distal fracture and medical management. Orthopaedic surgery was consulted for further evaluation and recommendations. Patient denied any headstrike or loss of consciousness. At the time of evaluation, patient denied any numbness or tingling. [19] Hospital Course: 73-year-old female past medical history of COPD on home oxygen 3 L, CAD status post stents last year, probable HFrEF, A-fib on Eliquis, hypertension, hyperlipidemia, chronic anemia with baseline hemoglobin 8-9, mood disorder, and ongoing tobacco abuse, who presented from an [facility] a transfer for left humeral fracture to orthopedics. Initially, medicine wasconsulted for co- management of COPD and other chronic conditions, now requested us to be primary due to herCOPD andother chronic conditions.S/p L distal humerus ORIF 03/18, noted to havehemoglobin 6.5 03/19, s/p1 unit andrepeat H&H improved. Was seen by physical therapy recommendedIPR. Contacted [facility] to transfer her back and patient was accepted for rehab placement. Recommend continue monitoring CBC. Orthopedic plans to follow-up 04/01 Exam on Discharge: Vitals & Measurements: T:36.6C TMIN:36.3C TMAX:36.7C HR:74(Monitored) RR:20 BP:138/70 SpO2:97% Oxygen Flow:3(L/Min) Oxygen Therapy:Nasal cannula WT:56.7kg Constitutional:NAD, well-nourished, sitting up in bed, on 3L NC HEENT:EOMI, PERRL, MMM, nonicteric sclera, no LAD,Left side of the face has periorbital bruising and there is a left frontotemporal hematoma, improving CV:RRR, no murmurs,no JVD or LE edema Resp:Dry crackles heard diffuse GI:+BS, soft, nontender to palpation, non-distended MSK:No joint pain or tenderness, no edema/erythema,LUEinabrace and sling Skin:No skin lesions, no erythema Neurologic:AAO x3, moves all extremities equally, no focal deficits, CN generally intact Psychiatric: Pleasant, cooperative Discharge Medications: 1.Furosemide (furosemide 40 mg oral tablet) . TAKE 1 TABLET BY MOUTH DAILY. MAX: 1 TAB DAILY. 2.Fluticasone-salmeterol (fluticasone-salmeterol 115 mcg-21 mcg inhalation aerosol) . INHALE2 PUFFS BY MOUTH IN THE MORNING AND BEFORE BEDTIME. 3.Ofloxacin ophthalmic (ofloxacin 0.3% ophthalmic solution) . INSTILL 1 DROP IN THE LEFT EYE4 TIMES A DAY STARTING THE DAY BEFORE SURGERY BRING TO SURGERY CENTER. 4.Gabapentin (gabapentin 300 mg oral capsule) . TAKE 1 CAPSULE BY MOUTH THREE TIMES A DAY. 5.Albuterol (Albuterol (Eqv-Ventolin HFA) 90 mcg/inh inhalation aerosol) . INHALE 2 PUFFS BYMOUTH EVERY 4 HOURS NEEDED FOR WHEEZING OR COUGH. 6.Tiotropium (tiotropium 18 mcg inhalation capsule) . INHALE THE CONTENTS OF 1 CAPSULE EVERYMORNING VIA HANDIHALER (DO NOT SWALLOW).. 7.Alendronate (alendronate 70 mg oral tablet) . TAKE 1 TABLET BY MOUTH WEEKLY DIRECTED , SEE PACKAGE FOR ADDITIONAL INSTRUCTIONS. 8.Amiodarone (amiodarone 200 mg oral tablet) . TAKE 1 TABLET BY MOUTH DAILY.. 9.Spironolactone (spironolactone 25 mg oral tablet) . TAKE 1 TABLET BY MOUTH EVERY DAY. 10.Carvedilol (carvedilol 3.125 mg oral tablet) . TAKE 1 TABLET BY MOUTH TWICE A DAY. 11.Ketorolac ophthalmic (ketorolac 0.5% ophthalmic solution) . PLEASE SEE ATTACHED FOR DETAILED DIRECTIONS. 12.Citalopram (citalopram 40 mg oral tablet) . TAKE 1 TABLET BY MOUTH EVERY DAY IN THE MORNING. 13.Pantoprazole (pantoprazole 40 mg oral delayed release tablet) . TAKE 1 TABLET BY MOUTH EVERY DAY IN THE MORNING. 14.Atorvastatin (atorvastatin 40 mg oral tablet) . TAKE 1 TABLET BY MOUTH EVERY DAY IN THE MORNING. 15.Clopidogrel (clopidogrel 75 mg oral tablet) . TAKE 1 TABLET BY MOUTH EVERY DAY IN THE MORNING. 16.Apixaban (Eliquis 5 mg oral tablet) . TAKE 1 TABLET BY MOUTH IN THE MORNING AND BEFORE BEDTIME. 17.OxyBUTYnin (oxyBUTYnin 5 mg/24 hours oral tablet, extended release) . TAKE 1 TABLET BY MOUTH EVERY DAY. 18.Levothyroxine (levothyroxine 25 mcg (0.025 mg) oral tablet) . TAKE 1 TABLET BY MOUTH IN THE MORNING. (AT LEAST 30 MIN PRIOR TO BREAKFAST OR OTHER MEDS).. 19.Potassium chloride (Klor-Con M10 oral tablet, extended release) . TAKE 1 TABLET BY MOUTH IN THE MORNING AND BEFORE BEDTIME. 20.Ocular lubricant (ocular lubricant ophthalmic ointment) in right eye at bedtime. 21.Ocular lubricant (ocular lubricant ophthalmic solution) in both eyes 4 times daily. 22.OxyCODONE (oxyCODONE 5 mg oral tablet) 5 mg by mouth every 4 hours, as needed for pain - moderate (4-6). 23.OxyCODONE (oxyCODONE 10 mg oral tablet) 10 mg by mouth every 4 hours, as needed for pain - severe (7-10). 24.Losartan (losartan 25 mg oral tablet) 25 mg (1 tab) by mouth once daily. 25.Acetaminophen (Tylenol 500 mg oral tablet) 1,000 mg (2 tab) by mouth every 8 hours. 26.Cholecalciferol (Vitamin D3) 125 mcg (1 tab) by mouth once daily. 27.Polyethylene glycol 3350 (MiraLax) 17 g by mouth once daily, as needed for constipation 2nd line. 28.Senna (Senokot 8.6 mg oral tablet) 17.2 mg (2 tab) by mouth 2 times daily, as needed for constipation 1st line. Allergies and Sensitivities: Bee stingsSwelling doxycyclineVomiting Tests Pending: None Scheduled Appointments: Date/Time:Provider/Resource: Mar 10:45 HARRISON Franco, Nelly Coughlin Location/Instructions:[facility] [place], [address], [address], [place] [address] Discharge Services: No Post-Acute Placement(s) Listed No Post-Acute Service(s) Listed Care Instructions: Date of Service:03/18/2024 SURGEON: Corby Cochran MD OPERATION PERFORMED:Left distal humerus open reduction internal fixation - POST-DISCHARGE CARE INSTRUCTIONS: -Stool softener of choice while on pain medication -NO NSAIDS (Advil, Motrin, Ibuprofen, Aleve, Naproxen, Mobic, Celebrex) until further notice -NO SMOKING or use of any products containing nicotine including chew less tobacco and nicotine replacement medications - Research has shown that these can lead to a delay in wound/incision healing complications and delay of bone fusion and fracture healing and must be stopped in the postoperative period. Continuing these substance while your fracture is healing can lead to chronic pain and/or a non-united fracture that may require further surgery. -NO DRIVING until further notice - Take at least 10 deep breaths every hour, while awake, to help keep the lungs wide open and prevent pneumonia -Vitamin D recommendation: We would like you to take Vitamin D3 2,OOO IU once daily for 8 weekspost op. Your current Vitamin D level is 39 (normal 30-100) - WOUND CARE: - Keep the rigid cast/splinton your left armclean, dry and intact until seen in clinic. - You may over wrap your cast with a plastic bag to shower. Do NOT get your splint wet. - - ACTIVITY GUIDELINES: - Left upper extremity is coffee cupnon-weight bearing. Do not lift anything greater than a coffee cup. No pushing or pulling with the left arm. - sling for comfort when out of bed - Left shoulder, fingerrange of motion as tolerated. - elevate hand above elbow, and elbow above heart while in bed to decrease swelling Call your doctor with questions regarding your Orthopaedic injuries -Call with any questions concerning fevers > 101F, chills, redness, increased swelling, numbness, tingling, drainage or pus from your incisions or if you have any questions please phone our office. - 8am-4:30pm Call - Evenings or Weekends call the hospital board lining machine operator and ask for the Orthopaedic resident information technology associate to be paged If you experience chest pain or shortness of breath phone [phone] and report to the closest emergency room as this could be a sign of a heart attack or a blood clot to the lungs (pulmonary embolism). Immunizations Received this Hospital Stay: influenza virus vaccine, inactivated (02/08/2024) pneumococcal 23-valent vaccine (06/10/2010) pneumococcal 23-valent vaccine (12/31/2016) . Advance Directive:Health Care Power of [employer] I personally spent35 minutes in discharge planning. [1]XR Elbow Complete 3+ Views Left; MD Palmer Scott W 03/17/2024 01:54 EST [2]XR Forearm 2 Views Left; MD Palmer Scott W 03/17/2024 01:54 EST [3]XR Hand Complete 3+ Views Left; MD Palmer Scott W 03/17/2024 01:54 EST [4]XR Humerus Left; MD Palmer Scott W 03/17/2024 01:54 EST [5]XR Shoulder Complete 2+ Views Left; MD Palmer Scott W 03/17/2024 01:54 EST [6]XR Wrist Complete 3+ Views Left; MD Palmer Scott W 03/17/2024 01:54 EST [7]XR Knee 1 or 2 Views Left; MD Palmer Scott W 03/17/2024 01:54 EST [8]CT 3D Image Recon Indep Wkstation; MD Love Cristy N 03/17/2024 03:41 EST [9]CT Elbow w/o Contrast Left; MD Love Cristy N 03/17/2024 03:41 EST [10]OO CT Abdomen and Pelvis Consult; MD Montgomery Seth Millard 03/17/2024 05:09 EST [11]OO CT Chest Consult; MD Montgomery Seth Millard 03/17/2024 05:09 EST [12]OO CT Spine Cervical Consult; MD Mo Jonathon K 03/17/2024 05:09 EST [13]OO CT Spine Lumbar/Sacral Consult; MD Mo Jonathon K 03/17/2024 05:09 EST [14]OO CT Spine Thoracic Consult; MD Mo Jonathon K 03/17/2024 05:09 EST [15]OO CT Head Consult; MD Mo Jonathon K 03/17/2024 05:09 EST [16]OO CT Face Consult; MD Mo Jonathon K 03/17/2024 07:29 EST [17]Echo TransTHORacic TTE Complete; MD Hay Ryan 03/17/2024 07:24 EST [18]XR Elbow Complete 3+ Views Left; DO Astorga Rushi 03/18/2024 19:16 EST [19]Pre-OP H & P; MD Petros, Mikey 03/17/2024 00:59 EST Electronic Signature on File Electronically Reviewed/Signed by: Liz Watson Electronically Reviewed/Signed by: Francesca Vogt MD Cosigner Signature Dt/Tm: 03/24/2024 02:52 PM Division of Internal Medicine ARTURO Facility Discharge Instructions * MD Sin, Francesca: MODIFY Liz Watson: PERFORM Event Display: Facility Discharge Instructions Authored Date: [id number] KAE TORREZ :1950 Visit Date:03/16/2024 Facility Discharge Instructions [facility] For medical concerns, call: . Date of Admission:03/16/2024 Date of Discharge:03/24/2024 Physician:MD Sin, Francesca Service:Internal Medicine Discharge Disposition:Facility I, Liz Watson, am scribing for and in the presence ofFrancesca Vogt MD. I, Dr. Francesca Vogt, have personally performed the physical exam and review and edit the instruction/summary. I verify that the history, physical exam and recommendation as documented in the note by the scribe are accurate Primary Care Provider/Phone: MD SEBASTIAN, ESTEVAN Richard (BUSINESS) [phone] (FAX BUSINESS) . Advance Directive:Health Care Power of [employer] Reason for Hospitalization Closed fracture of left distal humerus Your Diagnoses Closed fracture of left distal humerus Anemia Hypokalemia Paroxysmal A-fib Hypomagnesemia Long QT interval Coronary artery disease involving platinum heart Chronic hypoxic respiratory failure, on home oxygen therapy Chronic obstructive pulmonary disease My [employer] Patient Portal: [email or web address] makes it easy for you to manage your health information online. [employer] is a free service that provides you instant, secure access to your medical information anytime, anywhere. Sign in or set up your account today at [email or web address] [email or web address] Thank you for allowing us to assist you with your healthcare needs. If you need additional community resources, BO 211 can help at https://www.paBig Think.org. 211 can assist you in connecting with social programs based on your unique needs and locations. 211 is an anonymous search that can help you locate resources for: Food, Housing, Transportation, Goods, Education and Healthcare. Hospital Course 73-year-old female past medical history of COPD on home oxygen 3 L, CAD status post stents last year, probable HFrEF, A-fib on Eliquis, hypertension, hyperlipidemia, chronic anemia with baseline hemoglobin 8-9, mood disorder, and ongoing tobacco abuse, who presented from an [facility] transfer for left humeral fracture to orthopedics. Initially, medicine wasconsulted for co- management of COPD and other chronic conditions, transferred to medicine service.S/p L distal humerus ORIF 03/18, noted to havehemoglobin 6.5 03/19, s/p1 unit and repeat H&H improved. Was seen by physical therapy recommendedIPR. Contacted [facility] to transfer her back and patient was accepted for rehab placement. Recommend continue monitoring CBC. Orthopedic plans to follow-up 04/01 Exam on Discharge Vitals & Measurements: T:36.6C TMIN:36.3C TMAX:36.7C HR:74(Monitored) RR:20 BP:138/70 SpO2:97% Oxygen Flow:3(L/Min) Oxygen Therapy:Nasal cannula WT:56.7kg Constitutional: NAD, well-nourished, sitting up in bed, on 3L NC HEENT: EOMI, PERRL, MMM, nonicteric sclera, no LAD, Left side of the face has periorbital bruising and there is a left frontotemporal hematoma, improving CV: RRR, no murmurs,no JVD or LE edema Resp: Dry crackles heard diffuse GI: +BS, soft, nontender to palpation, non-distended MSK: No joint pain or tenderness, no edema/erythema,LUEinabrace and sling Skin: No skin lesions, no erythema Neurologic: AAO x3, moves all extremities equally, no focal deficits, CN generally intact Psychiatric: Pleasant, cooperative Medications What How Much When Instructions Next Dose New acetaminophen (Tylenol 500 mg oral tablet) 2 tab(s) by mouth Every 8 hours 03/24 12 PM New cholecalciferol (Vitamin D3) 125 Microgram by mouth Once daily 03/25 9 AM New ocular lubricant (ocular lubricant ophthalmic ointment) in right eye At bedtime 03/1210 PM New ocular lubricant (ocular lubricant ophthalmic solution) in both eyes 4 times daily 03/24 12 PM New oxyCODONE (oxyCODONE 10 mg oral tablet) 10 Milligram by mouth Every 4 hours as needed for pain - severe (7-10) New oxyCODONE (oxyCODONE 5 mg oral tablet) 5 Milligram by mouth Every 4 hours as needed for pain - moderate (4-6) New polyethylene glycol 3350 (MiraLax) 17 gram by mouth Once daily as needed for constipation 2nd line New senna (Senokot 8.6 mg oral tablet) 2 tab(s) by mouth 2 times daily as needed for constipation 1st line Changed losartan (losartan 25 mg oral tablet) 1 tab(s) by mouth Once daily 03/25 9 AM Unchanged albuterol (Albuterol (Eqv-Ventolin HFA) 90 mcg/ inh inhalation aerosol) INHALE 2 PUFFS BY MOUTH EVERY 4 HOURS NEEDED FOR WHEEZING OR COUGH Unchanged alendronate (alendronate 70 mg oral tablet) TAKE 1 TABLET BY MOUTH WEEKLY DIRECTED , SEE PACKAGE FOR ADDITIONAL INSTRUCTIONS Unchanged amiodarone (amiodarone 200 mg oral tablet) TAKE 1 TABLET BY MOUTH DAILY. 12/13 9 AM Unchanged apixaban (Eliquis 5 mg oral tablet) TAKE 1 TABLET BY MOUTH IN THE MORNING AND BEFORE BEDTIME 129 PM Unchanged atorvastatin (atorvastatin 40 mg oral tablet) TAKE 1 TABLET BY MOUTH EVERY DAY IN THE MORNING 03/25 9 AM Unchanged carvedilol (carvedilol 3.125 mg oral tablet) TAKE 1 TABLET BY MOUTH TWICE A DAY PM Unchanged citalopram (citalopram 40 mg oral tablet) TAKE 1 TABLET BY MOUTH EVERY DAY IN THE MORNING 03/25 AM Unchanged clopidogrel (clopidogrel 75 mg oral tablet) TAKE 1 TABLET BY MOUTH EVERY DAY IN THE MORNING 03/25 AM Unchanged fluticasone-salmeterol (fluticasone-salmeterol 115 mcg-21 mcg inhalation aerosol) INHALE 2 PUFFS BY MOUTH IN THE MORNING AND BEFORE BEDTIME 03/1210 PM Unchanged furosemide (furosemide 40 mg oral tablet) TAKE 1 TABLET BY MOUTH DAILY. MAX: 1 TAB DAILY 03/25 AM Unchanged gabapentin (gabapentin 300 mg oral capsule) TAKE 1 CAPSULE BY MOUTH THREE TIMES A DAY PM Unchanged levothyroxine (levothyroxine 25 mcg (0.025 mg) oral tablet) TAKE 1 TABLET BY MOUTH IN THE MORNING. (AT LEAST 30 MIN PRIOR TO BREAKFAST OR OTHER MEDS). AM Unchanged ofloxacin ophthalmic (ofloxacin 0.3% ophthalmic solution) INSTILL 1 DROP IN THE LEFT EYE 4 TIMES A DAY STARTING THE DAY BEFORE SURGERY BRING TO SURGERY CENTER N/A Unchanged oxyBUTYnin (oxyBUTYnin 5 mg/ 24 hours oral tablet, extended release) TAKE 1 TABLET BY MOUTH EVERY DAY 03/25 AM Unchanged pantoprazole (pantoprazole 40 mg oral delayed release tablet) TAKE 1 TABLET BY MOUTH EVERY DAY IN THE MORNING AM Unchanged potassium chloride (Klor-Con M10 oral tablet, extended release) TAKE 1 TABLET BY MOUTH IN THE MORNING AND BEFORE BEDTIME 03/25 AM Unchanged spironolactone (spironolactone 25 mg oral tablet) TAKE 1 TABLET BY MOUTH EVERY DAY 03/25 AM Unchanged tiotropium (tiotropium 18 mcg inhalation capsule) INHALE THE CONTENTS OF 1 CAPSULE EVERY MORNING VIA HANDIHALER (DO NOT SWALLOW). 03/25 9 AM What When Comments Stop Taking albuterol-ipratropium (albuterol-ipratropium 2.5 mg-0.5 mg/ 3 mL inhalation solution) INHALE 3 ML VIA NEBULIZER 4 TIMES A DAY NEEDED FOR SHORTNESS OF BREATH Allergies Bee stingsSwelling doxycyclineVomiting What to do next Instructions From Your Doctor Date of Service:03/18/2024 SURGEON: Corby Cochran MD OPERATION PERFORMED:Left distal humerus open reduction internal fixation - POST-DISCHARGE CARE INSTRUCTIONS: -Stool softener of choice while on pain medication -NO NSAIDS (Advil, Motrin, Ibuprofen, Aleve, Naproxen, Mobic, Celebrex) until further notice -NO SMOKING or use of any products containing nicotine including chew less tobacco and nicotine replacement medications - Research has shown that these can lead to a delay in wound/incision healing complications and delay of bone fusion and fracture healing and must be stopped in the postoperative period. Continuing these substance while your fracture is healing can lead to chronic pain and/or a non-united fracture that may require further surgery. -NO DRIVING until further notice - Take at least 10 deep breaths every hour, while awake, to help keep the lungs wide open and prevent pneumonia -Vitamin D recommendation: We would like you to take Vitamin D3 2,OOO IU once daily for 8 weekspost op. Your current Vitamin D level is 39 (normal 30-100) - WOUND CARE: - Keep the rigid cast/splinton your left armclean, dry and intact until seen in clinic. - You may over wrap your cast with a plastic bag to shower. Do NOT get your splint wet. - - ACTIVITY GUIDELINES: - Left upper extremity is coffee cupnon-weight bearing. Do not lift anything greater than a coffee cup. No pushing or pulling with the left arm. - sling for comfort when out of bed - Left shoulder, fingerrange of motion as tolerated. - elevate hand above elbow, and elbow above heart while in bed to decrease swelling Call your doctor with questions regarding your Orthopaedic injuries -Call with any questions concerning fevers > 101F, chills, redness, increased swelling, numbness, tingling, drainage or pus from your incisions or if you have any questions please phone our office. - 8am-4:30pm Call - Evenings or Weekends call the hospital board lining machine operator and ask for the Orthopaedic resident information technology associate to be paged If you experience chest pain or shortness of breath phone 911 and report to the closest emergency room as this could be a sign of a heart attack or a blood clot to the lungs (pulmonary embolism). Your Hepatitis Screening Test was performed. Please follow up with your PCP. If you notice the following symptoms Please call your primary care provider for symptoms including, but not limited to: fevers (temperatures >100.4 degrees F or 38.1 degrees C), chills, intractable nausea or vomiting, diarrhea, abdominal pain, rash, shortness of breath, bleeding, pain, or if you experience any worsening of the symptoms that brought you to the hospital. ForEMERGENCYandVERY SERIOUShealth-related issues, such as chest pain, shortness of breath, or sudden onset of the symptoms that brought you to the hospital, you may need to [id number] go directly to theEmergency Room. Contact the [facility] at . If unable to contact your physician and you feel it is an emergency, go to the nearest Emergency Room or call 911 Diet Instructions heart health. 2L fluids restriction Activity Instructions LUE coffee cup NWB (<5lbs), sling for comfort Follow-Up Appointments Scheduled Follow-Up Appointments Date/Time:Provider/Resource: Mar 10:45 HARRISON Franco, Nelly Coughlin Location/Instructions:[facility] [place], [address], [facility], [address], [place] [id number] The Following Services Have Been Arranged for You No Post-Acute Placement(s) Listed No Post-Acute Service(s) Listed Test Results Test Name Test Result Date/Time Na 135 mmol/L 03/24/2024 05:22 EST K 4.1 mmol/L 03/24/2024 05:22 EST Cl- 91 mmol/L 03/24/2024 05:22 EST HCO3 34 mmol/L 03/24/2024 05:22 EST Anion Gap 10 mmol/L 03/24/2024 05:22 EST BUN 11 mg/dL 03/24/2024 05:22 EST Cret 0.87 mg/dL 03/24/2024 05:22 EST eGFR CKD-EPI 69 mL/min/1.73 m2 03/24/2024 05:22 EST Glu 117 mg/dL 03/24/2024 05:22 EST Ca 9.3 mg/dL 03/24/2024 05:22 EST Mg 1.6 mg/dL 03/24/2024 05:22 EST PO4 4.3 mg/dL 03/24/2024 05:22 EST WBC 11.49 K/uL 03/24/2024 05:23 EST Hgb 7.6 g/dL 03/24/2024 05:23 EST Hct 23.7 % 03/24/2024 05:23 EST RBC 2.47 M/uL 03/24/2024 05:23 EST MCV 96.0 fL 03/24/2024 05:23 EST MCHC 32.1 g/dL 03/24/2024 05:23 EST MCH 30.8 pg 03/24/2024 05:23 EST RDW 15.2 % 03/24/2024 05:23 EST Plts 413 K/uL 03/24/2024 05:23 EST MPV 8.5 fL 03/24/2024 05:23 EST Type of Diff: AUTO 03/19/2024 05:38 EST Immature Gran% 0.7 % 03/19/2024 05:38 EST Neut% 83.9 % 03/19/2024 05:38 EST Lymph% 8.6 % 03/19/2024 05:38 EST Mora% 6.8 % 03/19/2024 05:38 EST Baso% 0.0 % 03/19/2024 05:38 EST Eos% 0.0 % 03/19/2024 05:38 EST Immat Gran, Abs 0.06 K/uL 03/19/2024 05:38 EST Neut, Abs 7.49 K/uL 03/19/2024 05:38 EST Lymph, Abs 0.77 K/uL 03/19/2024 05:38 EST Mora, Abs 0.61 K/uL 03/19/2024 05:38 EST Baso, Abs 0.00 K/uL 03/19/2024 05:38 EST Eos, Abs 0.00 K/uL 03/19/2024 05:38 EST INR 1.2 03/17/2024 00:46 EST PT 14.6 seconds 03/17/2024 00:46 EST HCV Ab NONREACTIVE 03/17/2024 06:11 EST Alb 2.8 g/dL 03/24/2024 05:22 EST Transferrin 193 mg/dL 03/17/2024 06:12 EST Vitamin D, 25-Hydroxy 39 ng/mL 03/17/2024 00:46 EST Troponin T ( 5th Gen) 49 ng/L 03/17/2024 08:25 EST Troponin T ( 5th Gen) Delta 1-hour delta NEGATIVE 03/17/2024 08:25 EST BNP, NT-Pro 1188 pg/mL 03/17/2024 00:46 EST Gluc Meter 99 mg/dL 03/18/2024 10:19 EST TSH 2.06 uIU/mL 03/17/2024 06:11 EST Retic Hgb 29.7 pg 03/17/2024 06:11 EST Retic (%) 2.19 % 03/17/2024 06:11 EST Imm. Retics 19.8 % 03/17/2024 06:11 EST Ferritin 61.6 ng/mL 03/17/2024 06:12 EST Fe Sat 19 % 03/17/2024 06:12 EST Iron 43 ug/dL 03/17/2024 06:12 EST Total IBC 228 ug/dL 03/17/2024 06:12 EST Retics (abs) 62.9 K/uL 03/17/2024 06:11 EST ABO/Rh O POSITIVE 03/19/2024 11:45 EST Antibody Scr NEGATIVE 03/19/2024 11:45 EST Expires at 0600AM on 03/22/2024 03/19/2024 11:45 EST R Number NRQ 03/19/2024 11:45 EST Component RED CELLS 03/19/2024 11:45 EST # Units 0 03/19/2024 11:45 EST B Comments CALLED FOR 2ND PINK 03/17/24 0102 LUCÍA ASHLEY 03/17/2024 00:46 EST Tests Pending None Procedures Performed Left humerus ORIF 03/18/2024 (03/17/2024 01:54 EST XR Elbow Complete 3+ Views Left) [1] (03/17/2024 01:54 EST XR Forearm 2 Views Left) [2] (03/17/2024 01:54 EST XR Hand Complete 3+ Views Left) [3] (03/17/2024 01:54 EST XR Humerus Left) [4] (03/17/2024 01:54 EST XR Shoulder Complete 2+ Views Left) [5] (03/17/2024 01:54 EST XR Wrist Complete 3+ Views Left) IMPRESSION: Left humeral displaced supracondylar fracture. [6] (03/17/2024 01:54 EST XR Knee 1 or 2 Views Left) IMPRESSION: No acute osseous abnormality in the left knee. [7] (03/17/2024 03:[address] 3D Image Recon Indep Wkstation) IMPRESSION: Displaced transverse supracondylar distal humerus fracture. [8] (03/17/2024 03:[address] Elbow w/o Contrast Left) IMPRESSION: Minimally comminuted displaced left humeral supracondylar fracture. [9] (03/17/2024 05:[address] Abdomen and Pelvis Consult) [10] (03/17/2024 05:[address] Chest Consult) IMPRESSION: 1. Moderate symmetric bilateral hydronephrosis. Findings are otherwise nonspecific. 2. Endometrial thickening concerning for neoplasm. 3. Abdominal aortic aneurysm. 4. Chronic fractures without evidence of acute osseous or visceral trauma. 5. Nonspecific findings in the right breast may related to hematoma. Correlation with the patient'smechanism and exam is needed. Diagnostic breast imaging can be offered as an outpatient as needed clinically. [11] (03/17/2024 05:[address] Spine Cervical Consult) [12] (03/17/2024 05:[address] Spine Lumbar/Sacral Consult) [13] (03/17/2024 05:[address] Spine Thoracic Consult) [14] (03/17/2024 05:[address] Head Consult) [15] (03/17/2024 07:[address] Face Consult) IMPRESSION: 1. Left frontal scalp hematoma. No displaced calvarial or facial fracture. 2. No evidence of acute infarct, hemorrhage or intracranial mass lesion. 3. Degenerative changes of the cervical, thoracic and lumbar spine without acute fracture. 4. Please see separately dictated CT of the chest abdomen and pelvis for additional findings [16] (03/17/2024 07:24 EST Echo TransTHORacic TTE Complete) Summary 1. Normal left ventricular size and systolic function with no regional wall motion abnormalities. 2. Estimated ejection fraction 60-65%. 3. Normal diastolic function for age. 4. Normal right ventricular size and function. 5. No significant valvular abnormalities. 6. Normal estimated pulmonary artery systolic pressures. 7. No prior studies for comparison. [17] (03/18/2024 19:16 EST XR Elbow Complete 3+ Views Left) IMPRESSION: Left distal humerus ORIF without immediate hardware complication. [18] Nursing Assessment Tenorio: Indwelling Urethra Insert Date:03/17/24 00:23 (No insertion activity documented) Removal Date:No Removal Currently Documented. Tenorio: Female External Urinary Device Insert Date:03/20/24 18:21 Removal Date:No Removal Currently Documented. SPECIAL NEEDS: Sensory Deficits: Sensation/Touch deficit Other: pt reports numbness in tinging in feet at baseline Level of Consciousness Neuro: Alert Neurological Symptoms: None ADLS: Moderate assistance Last BM: 03/22/2024 Basic Skin Assessment: [place], Warm, Dry Special Instructions Common Emergency Awareness Tips Call 911 immediately if: experiencing any of the warning signs and symptoms of stroke: B.E. F.A.S.T. Balance: is there trouble with walking or coordination Eyes: is there double vision or visual loss Face: Smile, do both sides of face move equally Arm: Raise arms, do both arms move equally Speech: Is speech slurred or inappropriate Time: Time is critical, call 911 immediately Heart Attack Signs Chest discomfort: Most heart attacks involve discomfort in the center of the chest and lasts more than a few minutes, or goes away and comes back. It can feel like uncomfortable pressure, squeezing, fullness or pain. Discomfort in upper body: Symptoms can include pain or discomfort in one or both arms, back, neck, jaw or stomach. Shortness of breath: With or without discomfort. Other signs: Breaking out in a cold sweat, nausea, or lightheaded. Remember, MINUTES DO MATTER. If you experience any of these heart attack warning signs, call to get immediate medical attention! [1]XR Elbow Complete 3+ Views Left; MD Palmer Scott W 03/17/2024 01:54 EST [2]XR Forearm 2 Views Left; MD Palmer Scott W 03/17/2024 01:54 EST [3]XR Hand Complete 3+ Views Left; MD Palmer Scott W 03/17/2024 01:54 EST [4]XR Humerus Left; MD Palmer Scott W 03/17/2024 01:54 EST [5]XR Shoulder Complete 2+ Views Left; MD Palmer Scott W 03/17/2024 01:54 EST [6]XR Wrist Complete 3+ Views Left; MD Palmer Scott W 03/17/2024 01:54 EST [7]XR Knee 1 or 2 Views Left; MD Palmer Scott W 03/17/2024 01:54 EST [8]CT 3D Image Recon Indep Wkstation; MD Love Cristy N 03/17/2024 03:41 EST [9]CT Elbow w/o Contrast Left; MD Love Cristy N 03/17/2024 03:41 EST [10]OO CT Abdomen and Pelvis Consult; MD Montgomery Seth Millard 03/17/2024 05:09 EST [11]OO CT Chest Consult; MD Montgomery Seth Millard 03/17/2024 05:09 EST [12]OO CT Spine Cervical Consult; MD Mo Jonathon K 03/17/2024 05:09 EST [13]OO CT Spine Lumbar/Sacral Consult; MD Mo Jonathon K 03/17/2024 05:09 EST [14]OO CT Spine Thoracic Consult; MD Mo Jonathon K 03/17/2024 05:09 EST [15]OO CT Head Consult; MD Mo Jonathon K 03/17/2024 05:09 EST [16]OO CT Face Consult; MD Mo Jonathon K 03/17/2024 07:29 EST [17]Echo TransTHORacic TTE Complete; MD Hay Ryan 03/17/2024 07:24 EST [18]XR Elbow Complete 3+ Views Left; DO Astorga Rushi 03/18/2024 19:16 EST Note * MD Timo, Keenan: PERFORM MD Timo, Keenan: PERFORM Event Display: Brief Operative Note Authored Date: [id number] BRIEF OPERATIVE NOTE Name: KAE TORREZ Patient Number: [id number] : 1950 Date of Service: 03/18/2024 Pre-op Diagnosis: Left distal humerus fracture Post-op Diagnosis: same Procedure: Left distal humerus open reduction internal fixation Surgeon: Dimas Assistants: Saji Greenwood Meister Anesthesia: General Estimated Blood Loss: 50 cc _ Less than 50ml Drains: None Fluids: Per anesthesia record Urinary Output: Per anesthesia record Condition: stable to PACU Complications: none apparent Specimen: x None Findings: left distal humerus fracture with poor bone quality Check one x Pharmacologic VTE prophylaxis not indicated _ Standard VTE prophylactic regimen ordered _ Pharmacologic VTE prophylaxis contraindicated due to increased risk of intraoperative and / or postoperative bleeding Check one _ No antibiotics indicated x Standard prophylactic antibiotic regimen ordered _ Antibiotic regimen changed due to concern for infection Plan: Future OR plans: No further orthopedic interventions planned this admission Weight bearing: LUE coffee cup NWB (<5lbs), sling for comfort Physical Therapy: Consulted DVT prophylaxis: ok for DVT ppx POD1 9pm. Okay to resume home DVT PPx on dc Dressing: soft dressing to remain in place Antibiotics: Ancef 24h postop Pain control: per primary Drain: None Imaging: Post-Op XRs ordered Labs: per primary Vitamin D level pending - recommend 5,000 iu vitamin D3 daily Home Medications: per primary Diet/GI: per primary, ADAT from ortho POV, recommend bowel regimen : tenorio per primary Dispo: Floor. IM primary Follow-up: 2-3 weeks for suture removal, no XR. Then follow up in 6wk w XR. Please [employer] Trauma Resident/KYLE with questions or concerns Electronic Signature on File Electronically Reviewed/Signed by: Keenan Greenwood MD Author Signature Dt/Tm:03/21/2024 10:29 AM Resident Division of Orthopaedics Electronically Reviewed/Signed by: Nick Jasso MD Cosigner Signature Dt/Tm: 03/18/2024 04:45 PM Resident Division of Orthopaedics MR Patient Care team information Care Team Personnel Name: MD Sebastian, Estevan Richard Position: Referring DIRECT Member Role: Primary Care Provider Address: [address] [place] [id number] [place]
--- OUTSIDE RECORDS SUMMARY | 2024-04-11 18:09 | External Medical Summary | Summary of Care ---
Author Name Unknown Organization [facility] Address [address] [place] [address] Phone [phone] Care Team Providers Care Financial Accounting Manager Name Role Phone Ronald Cortes MD Primary Care Provider [phone] Reason for Visit * Reason Onset Date Comments Home Health 03/21/2024 Encounter Details Date Type Department Care Team (Late st Contact Info) Description 03/21/2024 Telephone [facility] [address] [place] [address] Ronald Cortes MD [address] [place] [address] Home Health Allergies Active Allergy Reactions Criticality Noted Date Comments Bee Venom Anaphylaxis High 02/27/2006 Doxycycline Low 08/04/2023 Intolerant, GI upset documented as of this encounter (statuses as of 03/29/2024) Medications CALCIUM + D 600-200 MG-UNIT PO TABS 1 BID 0 03/13/20 06 Active MULTIVITAMINS PO TABS daily 0 03/13/20 06 Active ACETAMINOPHEN 325 MG PO TABSIndications:IN TERFACED RESULT,Pneumothora x 2 Tab Oral Every 6 hours as needed for fever, pain, headache 1 Tab 0 07/28/19 14 Active [place]-3 Fatty Acids (FISH OIL) 1000 MG Capsule 1 Capsule in the morning. Active TO GO ondansetron ODT (ZOFRAN ODT) 4 MG Orally Disintegrated TabletIndications: Nonspecific colitis 1 tab every 8 hrs as needed for nausea 30 Each 3 03/31/20 20 Active Additional Information Patient not taking.Reported [...] Cough. 54 g 3 02/08/20 Active Tiotropium [place] Monohydrate 18 MCG Inhalation Capsule (Spiriva HandiHaler) [...] as of this encounter (statuses as of 03/29/2024) Active Problems Problem Noted Date Diagnosed Date History of atrial fibrillation 02/08/2024 Gait difficulty 02/08/2024 Chronic respiratory failure with hypoxia 024 COPD, group B, by GOLD 2017 classification 09/20 Overview: Per COPD GOLD Classification Acquired hypothyroidism 07/19/2023 History of coronary angioplasty with insertion o f stent 07/01/2023 Coronary artery disease invo lving [place] coronary artery of [place] heart without angina pectoris 07/01/2023 Hematuria of undiagnosed cause 07/12/2019 Tobacco use disorder 12/21/2017 Chronic nonspecific lung disease 06/16/2017 HTN, goal below 150/90 11/16/2015 Osteoporosis 12/28/2014 Dyslipidemia, goal LDL below 100 06/10/2010 Generalized osteoarthritis of multiple sites 02/2011 GENERALIZED ANXIETY DIS 12/05/2004 COMMON MIGRAINE WITHOUT MENTION OF INTRACTABLE M IGRAINE documented as of this encounter (statuses as of 03/29/2024) Resolved Problems Problem Noted Date Diagnosed Date [...] contusion 07/20/2013 12/31/2016 Atrial fibrillation 07/20/2013 01/01/20 Other specified prophylactic or treatment measure 05/24/2010 [...] as of this encounter (statuses as of 03/29/2024) Immunizations Name Administration Dates Next Due COVID-19, [...] file Not on file Not on file Pack Worker Supervisor Not on file Not on file Not [...] Telephone Encounter - Nina Singh OSA - 03/29/2024 11:33 AM EST LMOM. Patient was a no show for Hospital Discharge on 03.16.2024. 03/29/2024 * Telephone Encounter - Nina Singh OSA - 03/28/2024 1:41 PM EST LMOM. If nothing available with PCP, patient can be scheduled with any provider. * Telephone Encounter - Justina Canchola LPN - 03/23/2024 4:33 PM EST Pt needs scheduled for hospital follow up * Telephone Encounter - Nicole Anguiano LPN - 03/21/2024 9:40 AM EST HH Admission/Start of Care Admission/Start of Care: Janna, business process associate , Calling from: [facility] Patient was Admitted to: [facility] , for: distal humerus fracture from 03/17 to 03/20 Referral ordered by: Lawrence Referral received for: Senior Living, PT, and OT Planned start of care date:Yes, Date within 48 hours of discharge Start of care completed on: to be done within 48 hours of discharg Narrative: Mary calling from [facility]. Asking for start of care orders. Next Nursing visit(s) on to be done within 48 hours of discharge They will call with any updates or additional concerns from the upcoming visit. Last Office Visit: 02/08/24 Has patient been scheduled or seen in the office for a follow up visit: Needs contacted to schedulefollow up Left message on Answering machine. Advised that orders will be signed by Dr. Cortes and to fax to the office for signature. Call back Janna with advice or orders at [phone] Please fax orders to [phone] documented in this encounter Plan of Treatment Upcoming Encounters Date Type Department Care Team (Late st Contact Info) Description 04/28/2024 1:00 PM EST Office Visit [facility] [address] [place] [address] Hitesh Gordillo, [address] [place] [address] 05/23/2024 2:00 PM EST Office Visit Pulmonary Medicine, [address] [place] [address] Marbin Serrano MD [address] [facility] [address] 06/07/2024 8:30 AM EST Office Visit Cardiology, [facility] [address] [facility] [place] [address] Pepe Lennon, [address] [facility] [place] [address] 07/13/2024 3:30 PM EDT Imaging Radiology [facility] [address] [place] [address] Scheduled Procedures Name Priority Associated Diagnoses Date/Ti me COLONOSCOPY FLEXIBLE PROXIMA L DIAGNOSTIC Recall Encounter for screening colonoscopy Health Maintenance Due Date Last Done Comments DISCUSS TOBACCO CESSATION (REFER TO SMARTSET #1185) 1950 Alpha-1 Antitrypsin 1967 Cologuard 1994 Sigmoidoscopy [...] D LEVEL ONCE IN A LIFETIME-USE SMARTSET# [id number] Completed 03/22/2015 Pneumococcal Vaccine: 65+ Years Completed 12/31/2016, 11/17/2014, 06/10/2010 Lung Cancer Screening Completed 01/05/2017, 014 COVID-19 Vaccine Completed 02/08/2024, , 02/07/2021 Influenza Vaccine (FLU shot) Completed 02/08/2024, 02/08/2024, 03/14/2021, Additional history exists HPV (Gardasil) Vaccine Aged Out No lo nger eligible based on patient's age to complete this topic Hepatitis B Vaccine Aged Out No longe r eligible based on patient's age to complete this topic MENINGOCOCCAL (MENACTRA/MENVEO) Aged Out No longer eligible based on patient's age to complete this topic documented as of this encounter Medical Devices Implanted Type Area Pants Presser Device Identifier Shelf Expiration Date Model / Serial / Lot Chip Cancellous c [id number] - [id number] Implanted:Qty: 1 on 08/08/2013 at [place] [facility] [place] Tissue - Human Left: Foot MUSCULOSKELETAL TRANSPLANT FND 07/24/2015 [id number] / [id number] / Screw Nonlock 3.5 X 24 - [id number] Implanted:Qty: 1 on 08/08/2013 at [place] [facility] [place] Left: Foot ORTHOHELIX SURGICAL DESIGNS PYROMETALLURGICAL ENGINEER-011-3 5-24 / / Screw Locking 3.5 X 16 - [id number] Implanted:Qty: 2 on 08/08/2013 at [place] [facility] [place] Left: Foot ORTHOHELIX SURGICAL DESIGNS PYROMETALLURGICAL ENGINEER-021-3 5-16 / / Plate 6 Hole Beta Mxl-0026 - [id number] Implanted:Qty: 1 on 08/08/2013 at [place] [facility] [place] Left: Foot ORTHOHELIX SURGICAL DESIGNS MXL-0026 / / Screw Locking 3.5 X 20 - [id number] Implanted:Qty: 1 on 08/08/2013 at [place] [facility] [place] Left: Foot ORTHOHELIX SURGICAL DESIGNS PYROMETALLURGICAL ENGINEER-021-3 5-20 / / Screw Nonlock 3.5 X 16 - [id number] Implanted:Qty: 1 on 08/08/2013 at [place] [facility] [place] Left: Foot ORTHOHELIX SURGICAL DESIGNS PYROMETALLURGICAL ENGINEER-011-3 5-16 / / Screw Nonlock 3.5 X 18 - [id number] Implanted:Qty: 1 on 08/08/2013 at [place] [facility] [place] Left: Foot ORTHOHELIX SURGICAL DESIGNS PYROMETALLURGICAL ENGINEER-011-3 5-18 / / Screw Nonlock 3.5 X 14 - [id number] Implanted:Qty: 1 on 08/08/2013 at [place] [facility] [place] Left: Foot ORTHOHELIX SURGICAL DESIGNS PYROMETALLURGICAL ENGINEER-011-3 5-14 / / 4.0 X 3.0 Short [...] / / [place] Gold 4.0 - [id number] Implanted:Qty: 1 on 08/08/2013 at [place] [facility] [place] Left: Foot ORTHOHELIX SURGICAL DESIGNS CSS-500-4 0A / / Plate Lps Alpha 2 Slot - [id number] Implanted:Qty: 1 on 08/08/2013 at [place] [facility] [place] Left: Foot ORTHOHELIX SURGICAL DESIGNS MXL-002-2 A / / Screw Variable 3.5 X 12mm - [id number] Implanted:Qty: 1 on 08/08/2013 at [place] [facility] [place] Left: Foot ORTHOHELIX SURGICAL DESIGNS RAKESH-031-3 5-12 / / Screw Variable 3.5 X 18mm - [id number] Implanted:Qty: 1 on 08/08/2013 at [place] [facility] [...] Power of Attor elizabeth? No Care Teams Financial Accounting Manager Relationship Specialty Start Date End Date Ronald Cortes MD [address] [place] [address] PCP - General 06/10/02 documented as of this encounter
--- OUTSIDE RECORDS SUMMARY | 2024-04-11 18:09 | External Medical Summary | Summary of Care ---
Author Name Unknown Organization [facility] Address [address] [place] [address] Phone [phone] Care Team Providers Care Die Repair Name Role Phone Ronald Cortes MD Primary Care Provider [phone] Reason for Visit * Reason Onset Date Comments Home Health 03/21/2024 Encounter Details Date Type Department Care Team (Late st Contact Info) Description 03/21/2024 Telephone [facility] [address] [place] [address] Ronald Cortes MD [address] [place] [address] Home Health Allergies Active Allergy Reactions Criticality Noted Date Comments Bee Venom Anaphylaxis High 02/27/2006 Doxycycline Low 08/04/2023 Intolerant, GI upset documented as of this encounter (statuses as of 03/28/2024) Medications CALCIUM + D 600-200 MG-UNIT PO TABS 1 BID 0 03/13/20 06 Active MULTIVITAMINS PO TABS daily 0 03/13/20 06 Active ACETAMINOPHEN 325 MG PO TABSIndications:IN TERFACED RESULT,Pneumothora x 2 Tab Oral Every 6 hours as needed for fever, pain, headache 1 Tab 0 07/28/19 14 Active [place]-3 Fatty Acids (FISH OIL) 1000 MG Capsule [...] Cough. 54 g 3 02/08/20 Active Tiotropium [place] Monohydrate 18 MCG Inhalation Capsule (Spiriva HandiHaler) [...] as of this encounter (statuses as of 03/28/2024) Active Problems Problem Noted Date Diagnosed Date History of atrial fibrillation 02/08/2024 Gait difficulty 02/08/2024 Chronic respiratory failure with hypoxia 024 COPD, group B, by GOLD 2017 classification 09/20 Overview: Per COPD GOLD Classification Acquired hypothyroidism 07/19/2023 History of coronary angioplasty with insertion o f stent 07/01/2023 Coronary artery disease invo lving [place] coronary artery of [place] heart without angina pectoris 07/01/2023 Hematuria of undiagnosed cause 07/12/2019 Tobacco use disorder 12/21/2017 Chronic nonspecific lung disease 06/16/2017 HTN, goal below 150/90 11/16/2015 Osteoporosis 12/28/2014 Dyslipidemia, goal LDL below 100 06/10/2010 Generalized osteoarthritis of multiple sites 02/2011 GENERALIZED ANXIETY DIS 12/05/2004 COMMON MIGRAINE WITHOUT MENTION OF INTRACTABLE M IGRAINE documented as of this encounter (statuses as of 03/28/2024) Resolved Problems Problem Noted Date Diagnosed Date [...] as of this encounter (statuses as of 03/28/2024) Immunizations Name Administration Dates Next Due COVID-19, [...] file Not on file Not on file 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 (5 years old or older) Answer Entry Date Author No 08/08/2013 9:56 PM EDBarry Degroot RN documented in this encounter Miscellaneous Notes * Telephone Encounter - Nina Singh OSA - 03/28/2024 1:41 PM EST LMOM. If nothing available with PCP, patient can be scheduled with any provider. * Telephone Encounter - Justina Canchola LPN - 03/23/2024 4:33 PM EST Pt needs scheduled for hospital follow up * Telephone Encounter - Nicole Anguiano LPN - 03/21/2024 9:40 AM EST Admission/Start of Care Admission/Start of Care: Janna business process associate , Calling from: [facility] Patient was Admitted to: [facility] , for: distal humerus fracture from 03/17 to 03/20 Referral ordered by: [place] Referral received for: [facility], PT, and OT Planned start of care date:Yes, Date within 48 hours of discharge Start of care completed on: to be done within 48 hours of discharg Narrative: Mary calling from [facility]. Asking for start of care orders. Next [...] back Janna with advice or orders at [phone] Please fax orders to [phone] documented in this encounter Plan of Treatment Upcoming Encounters Date Type Department Care Team (Late st Contact Info) Description 04/28/2024 1:00 PM EST Office Visit [facility] [address] [place] [address] Hitesh Gordillo, [address] [place] [address] 05/23/2024 2:00 PM EST Office Visit Pulmonary Medicine, [facility] [address] [facility] [place] [address] Marbin Serrano MD [address] [facility] [place] [address] 06/07/2024 8:30 AM EST Office Visit Cardiology, [facility] [address] [facility] [place] [address] Pepe Lennon, DO [address] [facility] [place] [address] 07/13/2024 3:30 PM EDT Imaging Radiology [facility] [address] [facility] [place] [address] Scheduled Procedures Name Priority Associated Diagnoses Date/Ti me COLONOSCOPY FLEXIBLE PROXIMA L DIAGNOSTIC Recall Encounter for screening colonoscopy Health Maintenance Due Date Last Done Comments DISCUSS TOBACCO CESSATION (REFER TO SMARTSET #5201) 1950 Alpha-1 Antitrypsin 1967 Cologuard 1994 Sigmoidoscopy [...] D LEVEL ONCE IN A LIFETIME-USE SMARTSET# 17072 Completed 03/22/2015 Pneumococcal Vaccine: 65+ Years Completed [...] this encounter Medical Devices Implanted Type Area Research And Development Tester Device Identifier Shelf Expiration Date Model / Serial / Lot Chip Cancellous [facility] 200902 - [id number] Implanted:Qty: 1 on 08/08/2013 [place] [facility] [place] - Human Left: Foot MUSCULOSKELETAL TRANSPLANT FND 07/24/2015 [id number] / [id number] / Screw Nonlock 3.5 X 24 - [id number] Implanted:Qty: 1 on 08/08/2013 at [place] [facility] [place] Left: Foot ORTHOHELIX SURGICAL DESIGNS CHIEF STRATEGY OFFICER-011-3 5-24 / / Screw Locking 3.5 X 16 - [id number] Implanted:Qty: 2 on 08/08/2013 at [place] [facility] [place] Left: Foot ORTHOHELIX SURGICAL DESIGNS CHIEF STRATEGY OFFICER-021-3 5-16 / / Plate 6 Hole Beta Mxl-0026 - [id number] Implanted:Qty: 1 on 08/08/2013 at [place] [facility] [place] Left: Foot ORTHOHELIX SURGICAL DESIGNS MXL-0026 / / Screw Locking 3.5 X 20 - [id number] Implanted:Qty: 1 on 08/08/2013 at [place] [facility] [place] Left: Foot ORTHOHELIX SURGICAL DESIGNS CHIEF STRATEGY OFFICER-021-3 5-20 / / Screw Nonlock 3.5 X 16 - [id number] Implanted:Qty: 1 on 08/08/2013 at [place] [facility] [place] Left: Foot ORTHOHELIX SURGICAL DESIGNS CHIEF STRATEGY OFFICER-011-3 5-16 / / Screw Nonlock 3.5 X 18 - [id number] Implanted:Qty: 1 on 08/08/2013 at [place] [facility] [place] Left: Foot ORTHOHELIX SURGICAL DESIGNS CHIEF STRATEGY OFFICER-011-3 5-18 / / Screw Nonlock 3.5 X 14 - [id number] Implanted:Qty: 1 on 08/08/2013 at [place] [facility] [place] Left: Foot ORTHOHELIX SURGICAL DESIGNS CHIEF STRATEGY OFFICER-011-3 5-14 / / 4.0 X 3.0 Short Max Torque Implanted:Qty: 1 on 08/08/2013 at [place] [facility] [place] Left: Foot ORTHOHELIX SURGICAL DESIGNS MSD-010-4 0-030S / / 4.0 X 32.5 Short Max Torque Implanted:Qty: 1 on 08/08/2013 at [place] [facility] [place] Left: Foot MSD-010-4 0-325S / / 4.0 X 28 Short Max Torque Implanted:Qty: 1 on 08/08/2013 at [place] [facility] [place] Left: Foot ORTHOHELIX SURGICAL DESIGNS MSD-010-4 0-028S / / 4.0 X 22 Short Max Torque Implanted:Qty: 1 on 08/08/2013 at [place] [facility] [place] Left: Foot ORTHOHELIX SURGICAL DESIGNS MSD-010-4 0-022S / / [place] Gold 4.0 - [id number] Implanted:Qty: 1 on 08/08/2013 at [place] [facility] [place] Left: Foot ORTHOHELIX SURGICAL DESIGNS CSS-500-4 0A / / Plate Lps Alpha 2 Slot - [id number] Implanted:Qty: 1 on 08/08/2013 at [place] [facility] [place] Left: Foot ORTHOHELIX SURGICAL DESIGNS MXL-002-2 A / / Screw Variable 3.5 X 12mm - [id number] Implanted:Qty: 1 on 08/08/2013 at [place] [facility] [place] Left: Foot ORTHOHELIX SURGICAL DESIGNS RAKESH-031-3 5-12 / / Screw Variable 3.5 X 18mm - [id number] Implanted:Qty: 1 on 08/08/2013 at [place] [facility] [place] Left: Foot ORTHOHELIX SURGICAL DESIGNS [...] Power of Attor elizabeth? No Care Teams Die Repair Relationship Specialty Start Date End Date Ronald Cortes MD [address] [place] [address] PCP - General 06/10/02 documented as of this encounter
--- OUTSIDE RECORDS SUMMARY | 2024-04-11 18:09 | External Medical Summary | Summary of Care ---
Author Name Unknown Organization [facility] Address [address] [place] [address] Phone [phone] Care Team Providers Care Prosthodontist/Owner Name Role Phone Ronald Cortes MD Primary Care Provider [phone] Reason for Visit * Reason Onset Date Comments Home Health 03/21/2024 Encounter Details Date Type Department Care Team (Late st Contact Info) Description 03/21/2024 Telephone [facility] [address] [place] [address] Ronald Cortes MD [address] [place] [address] Home Health Allergies Active Allergy Reactions Criticality Noted Date Comments Bee Venom Anaphylaxis High 02/27/2006 Doxycycline Low 08/04/2023 Intolerant, GI upset documented as of this encounter (statuses as of 04/01/2024) Medications CALCIUM + D 600-200 MG-UNIT PO TABS 1 BID 0 03/13/20 06 Active MULTIVITAMINS PO TABS daily 0 03/13/20 06 Active ACETAMINOPHEN 325 MG PO TABSIndications:IN TERFACED RESULT,Pneumothora x 2 Tab Oral Every 6 hours as needed for fever, pain, headache 1 Tab 0 07/28/19 14 Active [place]-3 Fatty Acids (FISH OIL) 1000 MG Capsule [...] Cough. 54 g 3 02/08/20 Active Tiotropium [place] Monohydrate 18 MCG Inhalation Capsule (Spiriva HandiHaler) [...] as of this encounter (statuses as of 04/01/2024) Active Problems Problem Noted Date Diagnosed Date History of atrial fibrillation 02/08/2024 Gait difficulty 02/08/2024 Chronic respiratory failure with hypoxia 024 COPD, group B, by GOLD 2017 classification 09/20 Overview: Per COPD GOLD Classification Acquired hypothyroidism 07/19/2023 History of coronary angioplasty with insertion o f stent 07/01/2023 Coronary artery disease invo lving [place] coronary artery of [place] heart without angina pectoris 07/01/2023 Hematuria of undiagnosed cause 07/12/2019 Tobacco use disorder 12/21/2017 Chronic nonspecific lung disease 06/16/2017 HTN, goal below 150/90 11/16/2015 Osteoporosis 12/28/2014 Dyslipidemia, goal LDL below 100 06/10/2010 Generalized osteoarthritis of multiple sites 02/2011 GENERALIZED ANXIETY DIS 12/05/2004 COMMON MIGRAINE WITHOUT MENTION OF INTRACTABLE M IGRAINE documented as of this encounter (statuses as of 04/01/2024) Resolved Problems Problem Noted Date Diagnosed Date [...] as of this encounter (statuses as of 04/01/2024) Immunizations Name Administration Dates Next Due COVID-19, [...] file Not on file Not on file Medical Records Supervisor Not on file Not on file [...] Telephone Encounter - Nina Singh OSA - 04/01/2024 12:28 PM EST Spoke with patient and she is still in the hospital. She will call to schedule when she is discharged. 04/01/2024 * Telephone Encounter - Nina Singh OSA [...] of Care Admission/Start of Care: Janna business area manager , Calling from: [facility] Patient was Admitted to: [facility] , for: distal humerus fracture from 03/17 to 03/20 Referral ordered by: [place] Referral received for: Custodial, PT, and OT Planned start of care date:Yes, Date within 48 hours of discharge Start of care completed on: to be done within 48 hours of discharg Narrative: Mary calling from [facility]. Asking for start of care orders. Next Nursing visit(s) on to be done within 48 hours of discharge They will call with any updates or additional concerns from the upcoming HH visit. Last Office Visit: 02/08/24 Has patient been scheduled or seen in the office for a follow up visit: Needs contacted to schedulefollow up Left message on Answering machine. Advised that orders will be signed by Dr. Cortes and to fax to the office for signature. Call back Janna with advice or orders at [phone] Please fax orders to [phone] documented in this encounter Plan of Treatment Upcoming Encounters Date Type Department Care Team (Late st Contact Info) Description 04/28/2024 1:00 PM EST Office Visit [facility] [address] [address] Hitesh Gordillo, [address] [place] [address] 05/23/2024 2:00 PM EST Office Visit Pulmonary Medicine, [facility] [address] [facility] [place] [address] Marbin Serrano MD [address] [facility] [place] [phone] 06/07/2024 8:30 AM EST Office Visit Cardiology, [facility] [address] [place] [address] Pepe Lennon, DO [address] [place] [address] 07/13/2024 3:30 PM EDT Imaging Radiology [facility] [address] [place] [phone] Scheduled Procedures Name Priority Associated Diagnoses Date/Ti me COLONOSCOPY FLEXIBLE PROXIMA L DIAGNOSTIC Recall Encounter for screening colonoscopy Health Maintenance Due Date Last Done Comments DISCUSS TOBACCO CESSATION (REFER TO SMARTSET #2855) 1950 Alpha-1 Antitrypsin 1967 Cologuard 1994 Sigmoidoscopy [...] D LEVEL ONCE IN A LIFETIME-USE SMARTSET# 54223 Completed 03/22/2015 Pneumococcal Vaccine: 65+ Years Completed [...] this encounter Medical Devices Implanted Type Area Revenue Liaison Device Identifier Shelf Expiration Date Model / Serial / Lot Chip Cancellous [facility] 812925 - [id number] Implanted:Qty: 1 on 08/08/2013 at OR [facility] Tissue - Human Left: Foot MUSCULOSKELETAL TRANSPLANT FND 07/24/2015 [id number] / [id number] / Screw Nonlock 3.5 X 24 - [id number] Implanted:Qty: 1 on 08/08/2013 at OR [facility] Left: Foot ORTHOHELIX SURGICAL DESIGNS DESK SERGEANT-011-3 5-24 / / Screw Locking 3.5 X 16 - [id number] Implanted:Qty: 2 on 08/08/2013 at OR [facility] Left: Foot ORTHOHELIX SURGICAL DESIGNS DESK SERGEANT-021-3 5-16 / / Plate 6 Hole Beta Mxl-0026 - [id number] Implanted:Qty: 1 on 08/08/2013 at OR [facility] Left: Foot ORTHOHELIX SURGICAL DESIGNS MXL-0026 / / Screw Locking 3.5 X 20 - [id number] Implanted:Qty: 1 on 08/08/2013 at OR [facility] Left: Foot ORTHOHELIX SURGICAL DESIGNS DESK SERGEANT-021-3 5-20 / / Screw Nonlock 3.5 X 16 - [id number] Implanted:Qty: 1 on 08/08/2013 at OR [facility] Left: Foot ORTHOHELIX SURGICAL DESIGNS DESK SERGEANT-011-3 5-16 / / Screw Nonlock 3.5 X 18 - [id number] Implanted:Qty: 1 on 08/08/2013 at OR [facility] Left: Foot ORTHOHELIX SURGICAL DESIGNS DESK SERGEANT-011-3 5-18 / / Screw Nonlock 3.5 X 14 - [id number] Implanted:Qty: 1 on 08/08/2013 at OR [facility] Left: Foot ORTHOHELIX SURGICAL DESIGNS DESK SERGEANT-011-3 5-14 / / 4.0 X 3.0 Short Max Torque Implanted:Qty: 1 on 08/08/2013 at OR [facility] Left: Foot ORTHOHELIX SURGICAL DESIGNS MSD-010-4 0-030S / / 4.0 X 32.5 Short Max Torque Implanted:Qty: 1 on 08/08/2013 at OR [facility] Left: Foot MSD-010-4 0-325S / / 4.0 X 28 Short Max Torque Implanted:Qty: 1 on 08/08/2013 at OR [facility] Left: Foot ORTHOHELIX SURGICAL DESIGNS MSD-010-4 0-028S / / 4.0 X 22 Short Max Torque Implanted:Qty: 1 on 08/08/2013 at OR [facility] Left: Foot ORTHOHELIX SURGICAL DESIGNS MSD-010-4 0-022S / / [place] Gold 4.0 - [id number] Implanted:Qty: 1 on 08/08/2013 at OR [facility] Left: Foot ORTHOHELIX SURGICAL DESIGNS CSS-500-4 0A / / Plate Lps Alpha 2 Slot - [id number] Implanted:Qty: 1 on 08/08/2013 at OR [facility] Left: Foot ORTHOHELIX SURGICAL DESIGNS MXL-002-2 A / / Screw Variable 3.5 X 12mm - [id number] Implanted:Qty: 1 on 08/08/2013 at OR [facility] Left: Foot ORTHOHELIX SURGICAL DESIGNS RAKESH-031-3 5-12 / / Screw Variable 3.5 X 18mm - [id number] Implanted:Qty: 1 on 08/08/2013 at OR [facility] Left: Foot ORTHOHELIX SURGICAL [...] Power of Attor elizabeth? No Care Teams Prosthodontist/Owner Relationship Specialty Start Date End Date Ronald Cortes MD PCP - General 06/10/02 documented as of this encounter
--- OUTSIDE RECORDS SUMMARY | 2024-04-11 18:10 | External Medical Summary | Summary of Care ---
Author Name Unknown Organization [facility] Address [address] [place] [address] Phone [phone] Care Team Providers Care Printing Technician Name Role Phone Ronald Cortes MD Primary Care Provider [phone] Encounter Details Date Type Department Care Team (Latest Contact Info) Description 03/15/2024 6:30 PM EST - 03/15/2024 6:34 PM EST Hospital Encounter Radiology Film File [address] [place] [address] Discharge Disposition: Home - Self Care Allergies Active Allergy Reactions Criticality Noted Date Comments Bee Venom Anaphylaxis High 02/27/2006 Doxycycline Low 08/04/2023 Intolerant, GI upset documented as of this encounter (statuses as of 03/24/2024) Medications CALCIUM + D 600-200 MG-UNIT PO TABS 1 BID 0 03/13/20 06 Active MULTIVITAMINS PO TABS daily 0 03/13/20 06 Active ACETAMINOPHEN 325 MG PO TABSIndications:IN TERFACED RESULT,Pneumothora x 2 Tab Oral Every 6 hours as needed for fever, pain, headache 1 Tab 0 07/28/19 14 Active [place]-3 Fatty Acids (FISH OIL) 1000 MG Capsule [...] predniSONE 20 MG Oral Tablet (Deltasone) 12/14/19 24 Active Incruse Ellipta 62.5 MCG/ACT Inhalation Aerosol [...] Cough. 54 g 3 02/08/20 Active Tiotropium [place] Monohydrate 18 MCG Inhalation Capsule (Spiriva HandiHaler) [...] as of this encounter (statuses as of 03/24/2024) Active Problems Problem Noted Date Diagnosed Date History of atrial fibrillation 02/08/2024 Gait difficulty 02/08/2024 Chronic respiratory failure with hypoxia 024 COPD, group B, by GOLD 2017 classification 09/20 Overview: Per COPD GOLD Classification Acquired hypothyroidism 07/19/2023 History of coronary angioplasty with insertion o f stent 07/01/2023 Coronary artery disease invo lving [place] coronary artery of [place] heart without angina pectoris 07/01/2023 Hematuria of undiagnosed cause 07/12/2019 Tobacco use disorder 12/21/2017 Chronic nonspecific lung disease 06/16/2017 HTN, goal below 150/90 11/16/2015 Osteoporosis 12/28/2014 Dyslipidemia, goal LDL below 100 06/10/2010 Generalized osteoarthritis of multiple sites 02/2011 GENERALIZED ANXIETY DIS 12/05/2004 COMMON MIGRAINE WITHOUT MENTION OF INTRACTABLE M IGRAINE documented as of this encounter (statuses as of 03/24/2024) Resolved Problems Problem Noted Date Diagnosed Date [...] as of this encounter (statuses as of 03/24/2024) Immunizations Name Administration Dates Next Due COVID-19, [...] file Not on file Not on file Soft Drink Powder Mixer Not on file Not on file Not [...] Barry Charles RN documented in this encounter Plan of Treatment Upcoming Encounters Date Type Department Care Team (Late st Contact Info) Description 04/28/2024 1:00 PM EST Office Visit [facility] [address] [place] [address] Hitesh Gordillo, [address] [place] [address] 05/23/2024 2:00 PM EST Office Visit Pulmonary Medicine, [facility] [address] [facility] [place] [address] Marbin Serrano MD [address] [place] [facility] [place] [address] 06/07/2024 8:30 AM EST Office Visit Cardiology, [facility] [address] [facility] [place] [address] Pepe Lennon, [address] [facility] [place] [address] 07/13/2024 3:30 PM EDT Imaging Radiology [facility] [address] [facility] [place] [phone] Scheduled Procedures Name Priority [...] D LEVEL ONCE IN A LIFETIME-USE SMARTSET# 12977 Completed 03/22/2015 Pneumococcal Vaccine: 65+ Years Completed [...] this encounter Medical Devices Implanted Type Area Relish Blender Device Identifier Shelf Expiration Date Model / Serial / Lot Chip Cancellous c 961254 - [id number] Implanted:Qty: 1 on 08/08/2013 at [place] [facility] Tissue - Human Left: Foot MUSCULOSKELETAL TRANSPLANT FND 07/24/2015 [id number] / [id number] / Screw Nonlock 3.5 X 24 - [id number] Implanted:Qty: 1 on 08/08/2013 at [place] [facility] Left: Foot ORTHOHELIX SURGICAL DESIGNS MANAGEMENT LEAD-011-3 5-24 / / Screw Locking 3.5 X 16 - [id number] Implanted:Qty: 2 on 08/08/2013 at [place] [facility] Left: Foot ORTHOHELIX SURGICAL DESIGNS MANAGEMENT LEAD-021-3 5-16 / / Plate 6 Hole Beta Mxl-0026 - [id number] Implanted:Qty: 1 on 08/08/2013 at [place] [facility] Left: Foot ORTHOHELIX SURGICAL DESIGNS MXL-0026 / / Screw Locking 3.5 X 20 - [id number] Implanted:Qty: 1 on 08/08/2013 at [place] [facility] Left: Foot ORTHOHELIX SURGICAL DESIGNS MANAGEMENT LEAD-021-3 5-20 / / Screw Nonlock 3.5 X 16 - [id number] Implanted:Qty: 1 on 08/08/2013 at [place] [facility] Left: Foot ORTHOHELIX SURGICAL DESIGNS MANAGEMENT LEAD-011-3 5-16 / / Screw Nonlock 3.5 X 18 - [id number] Implanted:Qty: 1 on 08/08/2013 at [place] [facility] Left: Foot ORTHOHELIX SURGICAL DESIGNS MANAGEMENT LEAD-011-3 5-18 / / Screw Nonlock 3.5 X 14 - [id number] Implanted:Qty: 1 on 08/08/2013 at [place] [facility] Left: Foot ORTHOHELIX SURGICAL DESIGNS MANAGEMENT LEAD-011-3 5-14 / / 4.0 X 3.0 Short Max Torque Implanted:Qty: 1 on 08/08/2013 at [place] [facility] Left: Foot ORTHOHELIX SURGICAL DESIGNS MSD-010-4 0-030S / / 4.0 X 32.5 Short Max Torque Implanted:Qty: 1 on 08/08/2013 at [place] [facility] Left: Foot MSD-010-4 0-325S / / 4.0 X 28 Short Max Torque Implanted:Qty: 1 on 08/08/2013 at [place] [facility] Left: Foot ORTHOHELIX SURGICAL DESIGNS MSD-010-4 0-028S / / 4.0 X 22 Short Max Torque Implanted:Qty: 1 on 08/08/2013 at [place] [facility] Left: Foot ORTHOHELIX SURGICAL DESIGNS MSD-010-4 0-022S / / [place] Gold 4.0 - [id number] Implanted:Qty: 1 on 08/08/2013 at [place] [facility] Left: Foot ORTHOHELIX SURGICAL DESIGNS CSS-500-4 0A / / Plate Lps Alpha 2 Slot - [id number] Implanted:Qty: 1 on 08/08/2013 at [place] [facility] Left: Foot ORTHOHELIX SURGICAL DESIGNS MXL-002-2 A / / Screw Variable 3.5 X 12mm - [id number] Implanted:Qty: 1 on 08/08/2013 at [place] [facility] Left: Foot ORTHOHELIX SURGICAL DESIGNS RAKESH-031-3 5-12 / / Screw Variable 3.5 X 18mm - [id number] Implanted:Qty: 1 on 08/08/2013 at [place] [facility] Left: Foot ORTHOHELIX SURGICAL DESIGNS RAKESH-031-3 5-18 [...] study not interpreted or resulted by a [employer] or [employer] contracted radiologist. us Ronald Cortes MD RADIOLOGY [...] Power of Attor elizabeth? No Care Teams Printing Technician Relationship Specialty Start Date End Date Ronald Cortes MD [address] [place] [address] PCP - General 06/10/02 documented as of this encounter
--- OUTSIDE RECORDS SUMMARY | 2024-04-11 18:10 | External Medical Summary | Summary of Care ---
Author Name Unknown Organization [facility] Address [address] [place] [address] Phone [phone] Care Team Providers Care Manager Test Name Role Phone Ronald Cortes MD Primary Care Provider [phone] Encounter Details Date Type Department Care Team (Latest Contact Info) Description 03/15/2024 6:40 PM EST - 03/15/2024 6:44 PM EST Hospital Encounter Radiology Film File [address] [place] [address] Discharge Disposition: Home - Self [...] headache 1 Tab 0 07/28/19 14 Active [place]-3 Fatty Acids (FISH OIL) 1000 MG Capsule [...] Cough. 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 [address] [place] [address] Hitesh Gordillo, [address] [place] [address] 05/23/2024 2:00 PM EST Office Visit Pulmonary Medicine, [facility] [address] [facility] [place] [address] Marbin Serrano MD [address] [facility] [place] [address] 06/07/2024 8:30 AM EST Office Visit Cardiology, [facility] [address] [facility] [place] [address] Pepe Lennon, [address] [facility] [place] [address] 07/13/2024 3:30 PM EDT Imaging Radiology [facility] [address] [facility] [place] [phone] Scheduled Procedures Name Priority [...] D LEVEL ONCE IN A LIFETIME-USE SMARTSET# 74998 Completed 03/22/2015 Pneumococcal Vaccine: 65+ Years Completed [...] this encounter Medical Devices Implanted Type Area Steel Inspector Device Identifier Shelf Expiration Date Model / Serial / Lot Chip Cancellous c 569305 - [id number] Implanted:Qty: 1 on 08/08/2013 at [place] [facility] Tissue - Human Left: Foot MUSCULOSKELETAL TRANSPLANT FND 07/24/2015 [id number] / [id number] / Screw Nonlock 3.5 X 24 - [id number] Implanted:Qty: 1 on 08/08/2013 at [place] [facility] Left: Foot ORTHOHELIX SURGICAL DESIGNS ADOBE DEVELOPER-011-3 5-24 / / Screw Locking 3.5 X 16 - [id number] Implanted:Qty: 2 on 08/08/2013 at [place] [facility] Left: Foot ORTHOHELIX SURGICAL DESIGNS ADOBE DEVELOPER-021-3 5-16 / / Plate 6 Hole Beta Mxl-0026 - [id number] Implanted:Qty: 1 on 08/08/2013 at [place] [facility] Left: Foot ORTHOHELIX SURGICAL DESIGNS MXL-0026 / / Screw Locking 3.5 X 20 - [id number] Implanted:Qty: 1 on 08/08/2013 at [place] [facility] Left: Foot ORTHOHELIX SURGICAL DESIGNS ADOBE DEVELOPER-021-3 5-20 / / Screw Nonlock 3.5 X 16 - [id number] Implanted:Qty: 1 on 08/08/2013 at OR [facility] Left: Foot ORTHOHELIX SURGICAL DESIGNS ADOBE DEVELOPER-011-3 5-16 / / Screw Nonlock 3.5 X 18 - [id number] Implanted:Qty: 1 on 08/08/2013 at OR [facility] Left: Foot ORTHOHELIX SURGICAL DESIGNS ADOBE DEVELOPER-011-3 5-18 / / Screw Nonlock 3.5 X 14 - [id number] Implanted:Qty: 1 on 08/08/2013 at OR [facility] Left: Foot ORTHOHELIX SURGICAL DESIGNS ADOBE DEVELOPER-011-3 5-14 / / 4.0 X 3.0 Short Max Torque Implanted:Qty: 1 on 08/08/2013 at OR [facility] Left: Foot ORTHOHELIX SURGICAL DESIGNS MSD-010-4 0-030S / / 4.0 X 32.5 Short Max Torque Implanted:Qty: 1 on 08/08/2013 at OR [facility] Left: Foot MSD-010-4 0-325S / / 4.0 X 28 Short Max Torque Implanted:Qty: 1 on 08/08/2013 at OR [facility] Left: Foot ORTHOHELIX SURGICAL DESIGNS MSD-010-4 0-028S / / 4.0 X 22 Short Max Torque Implanted:Qty: 1 on 08/08/2013 at OR [facility] Left: Foot ORTHOHELIX SURGICAL DESIGNS MSD-010-4 0-022S / / [place] Gold 4.0 - [id number] Implanted:Qty: 1 on 08/08/2013 at [place] [facility] Left: Foot ORTHOHELIX SURGICAL DESIGNS CSS-500-4 0A / / Plate Lps Alpha 2 Slot - [id number] Implanted:Qty: 1 on 08/08/2013 at OR [facility] Left: Foot ORTHOHELIX SURGICAL DESIGNS MXL-002-2 A / / Screw Variable 3.5 X 12mm - [id number] Implanted:Qty: 1 on 08/08/2013 at OR [facility] Left: Foot ORTHOHELIX SURGICAL DESIGNS RAKESH-031-3 5-12 / / Screw Variable 3.5 X 18mm - [id number] Implanted:Qty: 1 on 08/08/2013 at [place] [facility] Left: Foot ORTHOHELIX SURGICAL DESIGNS RAKESH-031-3 5-18 [...] study not interpreted or resulted by a [facility] or [employer] contracted radiologist. us Ronald Cortes MD RADIOLOGY [...] of Attor elizabeth? No Care Teams Manager Test Relationship Specialty Start Date End Date Ronald Cortes MD [address] [place] [address] PCP - General 06/10/02 documented as of this encounter
--- OUTSIDE RECORDS SUMMARY | 2024-04-11 18:10 | External Medical Summary | Summary of Care ---
Author Name Unknown Organization [facility] Address [address] [place] [address] Phone [phone] Care Team Providers Care Volunteer Recruiter Name Role Phone Ronadl Cortes MD Primary Care Provider [phone] Encounter Details Date Type Department Care Team (Latest Contact Info) Description 03/15/2024 6:35 PM EST - 03/15/2024 6:39 PM EST Hospital Encounter Radiology Film File [address] [place] [address] Discharge Disposition: Home - Self [...] headache 1 Tab 0 07/28/19 14 Active [place]-3 Fatty Acids (FISH OIL) 1000 MG Capsule [...] Cough. 54 g 3 02/08/20 Active Tiotropium [place] Monohydrate 18 MCG Inhalation Capsule (Spiriva HandiHaler) [...] stent 07/01/2023 Coronary artery disease invo lving squaxin coronary artery of squaxin heart without angina pectoris 07/01/2023 Hematuria of [...] file Not on file Not on file Inspector Poising Not on file Not on file Not [...] Description 04/28/2024 1:00 PM EST Office Visit [facility] [address] [place] [address] Hitesh Gordillo, 16 [place] [address] 05/23/2024 2:00 PM EST Office Visit Pulmonary Medicine, [facility] [address] [facility] [place] [address] Marbin Serrano MD [address] [place] [facility] [place] [address] 06/07/2024 8:30 AM EST Office Visit Cardiology, [facility] 132 [facility] [place] [address] Pepe Lennon, 132 [facility] [place] [address] 07/13/2024 3:30 PM EDT Imaging Radiology [facility] 132 [facility] [place] [phone] Scheduled Procedures [...] D LEVEL ONCE IN A LIFETIME-USE SMARTSET# 81670 Completed 03/22/2015 Pneumococcal Vaccine: 65+ Years Completed [...] this encounter Medical Devices Implanted Type Area Hydraulic Riveter Device Identifier Shelf Expiration Date Model / Serial / Lot Chip Cancellous c [id number] - [id number] Implanted:Qty: 1 on 08/08/2013 at [place] [facility] Tissue - Human Left: Foot MUSCULOSKELETAL TRANSPLANT FND 07/24/2015 [id number] / [id number] / Screw Nonlock 3.5 X 24 - [id number] Implanted:Qty: 1 on 08/08/2013 at OR [facility] Left: Foot ORTHOHELIX SURGICAL DESIGNS VISITOR SERVICES REPRESENTATIVE-011-3 5-24 / / Screw Locking 3.5 X 16 - [id number] Implanted:Qty: 2 on 08/08/2013 at OR [facility] Left: Foot ORTHOHELIX SURGICAL DESIGNS VISITOR SERVICES REPRESENTATIVE-021-3 5-16 / / Plate 6 Hole Beta Mxl-0026 - [id number] Implanted:Qty: 1 on 08/08/2013 at OR [facility] Left: Foot ORTHOHELIX SURGICAL DESIGNS MXL-0026 / / Screw Locking 3.5 X 20 - [id number] Implanted:Qty: 1 on 08/08/2013 at OR [facility] Left: Foot ORTHOHELIX SURGICAL DESIGNS VISITOR SERVICES REPRESENTATIVE-021-3 5-20 / / Screw Nonlock 3.5 X 16 - [id number] Implanted:Qty: 1 on 08/08/2013 at OR [facility] Left: Foot ORTHOHELIX SURGICAL DESIGNS VISITOR SERVICES REPRESENTATIVE-011-3 5-16 / / Screw Nonlock 3.5 X 18 - [id number] Implanted:Qty: 1 on 08/08/2013 at OR [facility] Left: Foot ORTHOHELIX SURGICAL DESIGNS VISITOR SERVICES REPRESENTATIVE-011-3 5-18 / / Screw Nonlock 3.5 X 14 - [id number] Implanted:Qty: 1 on 08/08/2013 at OR [facility] Left: Foot ORTHOHELIX SURGICAL DESIGNS VISITOR SERVICES REPRESENTATIVE-011-3 5-14 / / 4.0 X 3.0 [...] / / [place] Gold 4.0 - [id number] Implanted:Qty: 1 on 08/08/2013 at OR [facility] Left: Foot ORTHOHELIX SURGICAL DESIGNS CSS-500-4 0A / / Plate Lps Alpha 2 Slot - [id number] Implanted:Qty: 1 on 08/08/2013 at OR [facility] Left: Foot ORTHOHELIX SURGICAL DESIGNS MXL-002-2 A / / Screw Variable 3.5 X 12mm - [id number] Implanted:Qty: 1 on 08/08/2013 at OR [facility] Left: Foot ORTHOHELIX SURGICAL DESIGNS RAKESH-031-3 5-12 / / Screw Variable 3.5 X 18mm - [id number] Implanted:Qty: 1 on 08/08/2013 at [facility] [...] study not interpreted or resulted by a [employer] or [employer] contracted radiologist. us Ronald Cortes MD RADIOLOGY [...] Power of Attor elizabeth? No Care Teams Volunteer Recruiter Relationship Specialty Start Date End Date Ronald Cortes MD [address] [place] [address] PCP - General 06/10/02 documented as of this encounter
--- OUTSIDE RECORDS SUMMARY | 2024-04-11 18:10 | External Medical Summary | Summary of Care ---
Author Name Unknown Organization [facility] Address [address] [place] [address] Phone [phone] Care Team Providers Care Parachute Mender Name Role Phone Ronald Cortes MD Primary Care Provider [phone] Encounter Details Date Type Department Care Team (Latest Contact Info) Description 03/15/2024 7:10 PM EST - 03/15/2024 11:59 PM EST Hospital Encounter Radiology Film File [address] [place] [address] Discharge Disposition: Home - Self [...] headache 1 Tab 0 07/28/19 14 Active [place]-3 Fatty Acids (FISH OIL) 1000 MG Capsule [...] Cough. 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 Not on file Not on file Not [...] Description 04/28/2024 1:00 PM EST Office Visit [facility] 16 [place] [address] Hitesh Gordillo, 16 [place] [address] 05/23/2024 2:00 PM EST Office Visit Pulmonary Medicine, [facility] 132 [facility] [place] [address] Marbin Serrano MD [address] [place] [facility] [place] [address] 06/07/2024 8:30 AM EST Office Visit Cardiology, [facility] 132 [facility] [place] [address] Pepe Lennon, 132 [facility] [place] [address] 07/13/2024 3:30 PM EDT Imaging Radiology [facility] 132 [facility] [place] [phone] Scheduled Procedures Name Priority [...] D LEVEL ONCE IN A LIFETIME-USE SMARTSET# 87953 Completed 03/22/2015 Pneumococcal Vaccine: 65+ Years Completed [...] this encounter Medical Devices Implanted Type Area Reservations Agent Device Identifier Shelf Expiration Date Model / Serial / Lot Chip Cancellous c 278024 - [id number] Implanted:Qty: 1 on 08/08/2013 at [place] [facility] Tissue - Human Left: Foot MUSCULOSKELETAL TRANSPLANT FND 07/24/2015 [id number] / [id number] / Screw Nonlock 3.5 X 24 - [id number] Implanted:Qty: 1 on 08/08/2013 at [place] [facility] Left: Foot ORTHOHELIX SURGICAL DESIGNS MERCURY CRACKING TESTER-011-3 5-24 / / Screw Locking 3.5 X 16 - [id number] Implanted:Qty: 2 on 08/08/2013 at [place] [facility] Left: Foot ORTHOHELIX SURGICAL DESIGNS MERCURY CRACKING TESTER-021-3 5-16 / / Plate 6 Hole Beta Mxl-0026 - [id number] Implanted:Qty: 1 on 08/08/2013 at [place] [facility] Left: Foot ORTHOHELIX SURGICAL DESIGNS MXL-0026 / / Screw Locking 3.5 X 20 - [id number] Implanted:Qty: 1 on 08/08/2013 at [place] [facility] Left: Foot ORTHOHELIX SURGICAL DESIGNS MERCURY CRACKING TESTER-021-3 5-20 / / Screw Nonlock 3.5 X 16 - [id number] Implanted:Qty: 1 on 08/08/2013 at [place] [facility] Left: Foot ORTHOHELIX SURGICAL DESIGNS MERCURY CRACKING TESTER-011-3 5-16 / / Screw Nonlock 3.5 X 18 - [id number] Implanted:Qty: 1 on 08/08/2013 at [place] [facility] Left: Foot ORTHOHELIX SURGICAL DESIGNS MERCURY CRACKING TESTER-011-3 5-18 / / Screw Nonlock 3.5 X 14 - [id number] Implanted:Qty: 1 on 08/08/2013 at [place] [facility] Left: Foot ORTHOHELIX SURGICAL DESIGNS MERCURY CRACKING TESTER-011-3 5-14 / / 4.0 X 3.0 Short Max Torque Implanted:Qty: 1 on 08/08/2013 at [place] [facility] Left: Foot ORTHOHELIX SURGICAL DESIGNS MSD-010-4 0-030S / / 4.0 X 32.5 Short Max Torque Implanted:Qty: 1 on 08/08/2013 at OR [facility] Left: Foot MSD-010-4 0-325S / / 4.0 X 28 Short Max Torque Implanted:Qty: 1 on 08/08/2013 at OR [facility] Left: Foot ORTHOHELIX SURGICAL DESIGNS MSD-010-4 0-028S / / 4.0 X 22 Short Max Torque Implanted:Qty: 1 on 08/08/2013 at OR [facility] Left: Foot ORTHOHELIX SURGICAL DESIGNS MSD-010-4 0-022S / / [place] Gold 4.0 - [id number] Implanted:Qty: 1 on 08/08/2013 at [place] [facility] Left: Foot ORTHOHELIX SURGICAL DESIGNS CSS-500-4 0A / / Plate Lps Alpha 2 Slot - [id number] Implanted:Qty: 1 on 08/08/2013 at [place] [facility] Left: Foot ORTHOHELIX SURGICAL DESIGNS MXL-002-2 A / / Screw Variable 3.5 X 12mm - [id number] Implanted:Qty: 1 on 08/08/2013 at [place] [facility] Left: Foot ORTHOHELIX SURGICAL DESIGNS RAKESH-031-3 5-12 / / Screw Variable 3.5 X 18mm - [id number] Implanted:Qty: 1 on 08/08/2013 at [place] [facility] Left: Foot ORTHOHELIX SURGICAL DESIGNS [...] study not interpreted or resulted by a [employer] or [employer] contracted radiologist. us Ronald Cortes MD RAD [...] Power of Attor elizabeth? No Care Teams Parachute Mender Relationship Specialty Start Date End Date Ronald Cortes MD [address] [place] [address] PCP - General 06/10/02 documented as of this encounter
--- OUTSIDE RECORDS SUMMARY | 2024-04-11 18:10 | External Medical Summary | Summary of Care ---
Author Name Unknown Organization [facility] Address [address] [place] [address] Phone [phone] Care Team Providers Care Police Commissioner Name Role Phone Ronald Cortes MD Primary Care Provider [phone] Encounter Details Date Type Department Care Team (Latest Contact Info) Description 03/15/2024 7:00 PM EST - 03/15/2024 7:04 PM EST Hospital Encounter Radiology Film File [address] [place] [address] Discharge Disposition: Home - Self [...] headache 1 Tab 0 07/28/19 14 Active [place]-3 Fatty Acids (FISH OIL) 1000 MG Capsule [...] 54 g 3 02/08/20 Active Tiotropium [place] Monohydrate 18 MCG Inhalation Capsule (Spiriva HandiHaler) [...] file Not on file Not on file 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 [place] [address] [place] [address] Hitesh Gordillo, 16 [place] [address] 05/23/2024 2:00 PM EST Office Visit Pulmonary Medicine, [facility] 132 [facility] [place] [address] Marbin Serrano MD [address] [place] [facility] [place] [address] 06/07/2024 8:30 AM EST Office Visit Cardiology, [facility] 132 [facility] [place] [address] Pepe Lennon, 132 [facility] [place] [address] 07/13/2024 3:30 PM EDT Imaging Radiology [facility] 132 [facility] [place] [phone] Scheduled Procedures Name [...] D LEVEL ONCE IN A LIFETIME-USE SMARTSET# 37353 Completed 03/22/2015 Pneumococcal Vaccine: 65+ Years Completed [...] this encounter Medical Devices Implanted Type Area Civil Engineering Intern Device Identifier Shelf Expiration Date Model / Serial / Lot Chip Cancellous c 316508 - [id number] Implanted:Qty: 1 on 08/08/2013 at OR [facility] Tissue - Human Left: Foot MUSCULOSKELETAL TRANSPLANT FND 07/24/2015 [id number] / [id number] / Screw Nonlock 3.5 X 24 - [id number] Implanted:Qty: 1 on 08/08/2013 at OR [facility] Left: Foot ORTHOHELIX SURGICAL DESIGNS PATTERN MAKER-011-3 5-24 / / Screw Locking 3.5 X 16 - [id number] Implanted:Qty: 2 on 08/08/2013 at OR [facility] Left: Foot ORTHOHELIX SURGICAL DESIGNS PATTERN MAKER-021-3 5-16 / / Plate 6 Hole Beta Mxl-0026 - [id number] Implanted:Qty: 1 on 08/08/2013 at OR [facility] Left: Foot ORTHOHELIX SURGICAL DESIGNS MXL-0026 / / Screw Locking 3.5 X 20 - [id number] Implanted:Qty: 1 on 08/08/2013 at OR [facility] Left: Foot ORTHOHELIX SURGICAL DESIGNS PATTERN MAKER-021-3 5-20 / / Screw Nonlock 3.5 X 16 - [id number] Implanted:Qty: 1 on 08/08/2013 at OR [facility] Left: Foot ORTHOHELIX SURGICAL DESIGNS PATTERN MAKER-011-3 5-16 / / Screw Nonlock 3.5 X 18 - [id number] Implanted:Qty: 1 on 08/08/2013 at OR [facility] Left: Foot ORTHOHELIX SURGICAL DESIGNS PATTERN MAKER-011-3 5-18 / / Screw Nonlock 3.5 X 14 - [id number] Implanted:Qty: 1 on 08/08/2013 at OR [facility] Left: Foot ORTHOHELIX SURGICAL DESIGNS PATTERN MAKER-011-3 5-14 / / 4.0 X 3.0 Short [...] / / [place] Gold 4.0 - [id number] Implanted:Qty: 1 on 08/08/2013 at OR [facility] Left: Foot ORTHOHELIX SURGICAL DESIGNS CSS-500-4 0A / / Plate Lps Alpha 2 Slot - [id number] Implanted:Qty: 1 on 08/08/2013 at OR [facility] Left: Foot ORTHOHELIX SURGICAL DESIGNS MXL-002-2 A / / Screw Variable 3.5 X 12mm - [id number] Implanted:Qty: 1 on 08/08/2013 at OR [facility] Left: Foot ORTHOHELIX SURGICAL DESIGNS RAKESH-031-3 5-12 / / Screw Variable 3.5 X 18mm - [id number] Implanted:Qty: 1 on 08/08/2013 [facility] [...] study not interpreted or resulted by a [employer] or [employer] contracted radiologist. us Ronald Cortes MD RAD [...] Power of Attor elizabeth? No Care Teams Police Commissioner Relationship Specialty Start Date End Date Ronald Cortes MD [address] [place] [address] PCP - General 06/10/02 documented as of this encounter
--- OUTSIDE RECORDS SUMMARY | 2024-04-11 18:10 | External Medical Summary | Summary of Care ---
Author Name Unknown Organization [facility] Address [address] [place] [address] Phone [phone] Care Team Providers Care Sap Director Name Role Phone Ronald Cortes MD Primary Care Provider [phone] Encounter Details Date Type Department Care Team (Latest Contact Info) Description 03/15/2024 6:50 PM EST - 03/15/2024 6:54 PM EST Hospital Encounter Radiology Film File [address] [place] [address] Discharge Disposition: Home - Self [...] headache 1 Tab 0 07/28/19 14 Active [place]-3 Fatty Acids (FISH OIL) 1000 MG Capsule [...] Cough. 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 Not on file Not on file Not [...] Description 04/28/2024 1:00 PM EST Office Visit [facility] Eye [facility] [address] [place] [address] Hitesh Gordillo, 16 [place] [address] 05/23/2024 2:00 PM EST Office Visit Pulmonary Medicine, [facility] 132 [facility] [place] [address] Marbin Serrano MD [address] [place] [address] 06/07/2024 8:30 AM EST Office Visit Cardiology, [facility] 132 [facility] [place] [address] Pepe Lennon, 132 [facility] [place] [address] 07/13/2024 3:30 PM EDT Imaging Radiology [facility] 132 [facility] [place] [phone] Scheduled Procedures Name [...] D LEVEL ONCE IN A LIFETIME-USE SMARTSET# 42596 Completed 03/22/2015 Pneumococcal Vaccine: 65+ Years Completed [...] this encounter Medical Devices Implanted Type Area Front Desk Officer Device Identifier Shelf Expiration Date Model / Serial / Lot Chip Cancellous c 711075 - [id number] Implanted:Qty: 1 on 08/08/[address] [facility] [facility] Tissue - Human Left: Foot MUSCULOSKELETAL TRANSPLANT FND 07/24/2015 [id number] / [id number] / Screw Nonlock 3.5 X 24 - [id number] Implanted:Qty: 1 on 08/08/[address] [facility] [place] [facility] Left: Foot ORTHOHELIX SURGICAL DESIGNS BLACK LEATHER TRIMMER-011-3 5-24 / / Screw Locking 3.5 X 16 - [id number] Implanted:Qty: 2 on 08/08/[address] [facility] [place] [facility] Left: Foot ORTHOHELIX SURGICAL DESIGNS BLACK LEATHER TRIMMER-021-3 5-16 / / Plate 6 Hole Beta Mxl-0026 - [id number] Implanted:Qty: 1 on 08/08/[address] [facility] [place] [facility] Left: Foot ORTHOHELIX SURGICAL DESIGNS MXL-0026 / / Screw Locking 3.5 X 20 - [id number] Implanted:Qty: 1 on 08/08/[address] [facility] [facility] Left: Foot ORTHOHELIX SURGICAL DESIGNS BLACK LEATHER TRIMMER-021-3 5-20 / / Screw Nonlock 3.5 X 16 - [id number] Implanted:Qty: 1 on 08/08/[address] [facility] [place] Left: Foot ORTHOHELIX SURGICAL DESIGNS BLACK LEATHER TRIMMER-011-3 5-16 / / Screw Nonlock 3.5 X 18 - [id number] Implanted:Qty: 1 on 08/08/[address] [facility] Left: Foot ORTHOHELIX SURGICAL DESIGNS BLACK LEATHER TRIMMER-011-3 5-18 / / Screw Nonlock 3.5 X 14 - [id number] Implanted:Qty: 1 on 08/08/[address] [facility] Left: Foot ORTHOHELIX SURGICAL DESIGNS BLACK LEATHER TRIMMER-011-3 5-14 / / 4.0 X 3.0 Short [...] / / [place] Gold 4.0 - [id number] Implanted:Qty: 1 on 08/08/[address] [facility] [facility] Left: Foot ORTHOHELIX SURGICAL DESIGNS CSS-500-4 0A / / Plate Lps Alpha 2 Slot - [id number] Implanted:Qty: 1 on 08/08/[address] [facility] Left: Foot ORTHOHELIX SURGICAL DESIGNS MXL-002-2 A / / Screw Variable 3.5 X 12mm - [id number] Implanted:Qty: 1 on 08/08/[address] [facility] Left: Foot ORTHOHELIX SURGICAL DESIGNS RAKESH-031-3 5-12 / / Screw Variable 3.5 X 18mm - [id number] Implanted:Qty: 1 on 08/08/[address] [...] study not interpreted or resulted by a [employer] or [employer] contracted radiologist. us Ronald Cortes MD RAD [...] Power of Attor elizabeth? No Care Teams Sap Director Relationship Specialty Start Date End Date Ronald Cortes MD [address] [place] [address] PCP - General 06/10/02 documented as of this encounter
--- OUTSIDE RECORDS SUMMARY | 2024-04-11 18:10 | External Medical Summary | Summary of Care ---
Author Name Unknown Organization [facility] Address [address] [place] [address] Phone [phone] Care Team Providers Care Set Up Mechanic Name Role Phone Ronald Cortes MD Primary Care Provider [phone] Encounter Details Date Type Department Care Team (Latest Contact Info) Description 03/15/2024 7:05 PM EST - 03/15/2024 7:09 PM EST Hospital Encounter Radiology Film File [address] [place] [address] Discharge Disposition: Home - Self [...] headache 1 Tab 0 07/28/19 14 Active [place]-3 Fatty Acids (FISH OIL) 1000 MG Capsule [...] Cough. 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 file Not on file Not [...] Description 04/28/2024 1:00 PM EST Office Visit [facility] [address] [place] [address] Hitesh Gordillo, 16 [place] [address] 05/23/2024 2:00 PM EST Office Visit Pulmonary Medicine, [facility] 132 [facility] [place] [address] Marbin Serrano MD [address] [facility] [place] [address] 06/07/2024 8:30 AM EST Office Visit Cardiology, [facility] 132 [facility] [place] [address] Pepe Lennon, 132 [facility] [place] [address] 07/13/2024 3:30 PM EDT Imaging Radiology [facility] 132 [facility] [place] [phone] Scheduled Procedures Name [...] D LEVEL ONCE IN A LIFETIME-USE SMARTSET# 28413 Completed 03/22/2015 Pneumococcal Vaccine: 65+ Years Completed [...] this encounter Medical Devices Implanted Type Area Fur Liner Device Identifier Shelf Expiration Date Model / Serial / Lot Chip Cancellous c 914985 - [id number] Implanted:Qty: 1 on 08/08/2013 at [place] [facility] [place] - Human Left: Foot MUSCULOSKELETAL TRANSPLANT FND 07/24/2015 701142 / [id number] / Screw Nonlock 3.5 X 24 - [id number] Implanted:Qty: 1 on 08/08/2013 at [place] [facility] Left: Foot ORTHOHELIX SURGICAL DESIGNS ACID RECOVERY OPERATOR-011-3 5-24 / / Screw Locking 3.5 X 16 - [id number] Implanted:Qty: 2 on 08/08/2013 at [place] [facility] Left: Foot ORTHOHELIX SURGICAL DESIGNS ACID RECOVERY OPERATOR-021-3 5-16 / / Plate 6 Hole Beta Mxl-0026 - [id number] Implanted:Qty: 1 on 08/08/2013 at [place] [facility] Left: Foot ORTHOHELIX SURGICAL DESIGNS MXL-0026 / / Screw Locking 3.5 X 20 - [id number] Implanted:Qty: 1 on 08/08/2013 at [place] [facility] Left: Foot ORTHOHELIX SURGICAL DESIGNS ACID RECOVERY OPERATOR-021-3 5-20 / / Screw Nonlock 3.5 X 16 - [id number] Implanted:Qty: 1 on 08/08/2013 at [place] [facility] Left: Foot ORTHOHELIX SURGICAL DESIGNS ACID RECOVERY OPERATOR-011-3 5-16 / / Screw Nonlock 3.5 X 18 - [id number] Implanted:Qty: 1 on 08/08/2013 at [place] [facility] Left: Foot ORTHOHELIX SURGICAL DESIGNS ACID RECOVERY OPERATOR-011-3 5-18 / / Screw Nonlock 3.5 X 14 - [id number] Implanted:Qty: 1 on 08/08/2013 at [place] [facility] Left: Foot ORTHOHELIX SURGICAL DESIGNS ACID RECOVERY OPERATOR-011-3 5-14 / / 4.0 X 3.0 [...] / / [place] Gold 4.0 - [id number] Implanted:Qty: 1 on 08/08/2013 at [place] [facility] Left: Foot ORTHOHELIX SURGICAL DESIGNS CSS-500-4 0A / / Plate Lps Alpha 2 Slot - [id number] Implanted:Qty: 1 on 08/08/2013 at [place] [facility] Left: Foot ORTHOHELIX SURGICAL DESIGNS MXL-002-2 A / / Screw Variable 3.5 X 12mm - [id number] Implanted:Qty: 1 on 08/08/2013 at [place] [facility] Left: Foot ORTHOHELIX SURGICAL DESIGNS RAKESH-031-3 5-12 / / Screw Variable 3.5 X 18mm - [id number] Implanted:Qty: 1 on 08/08/2013 at [facility] [...] study not interpreted or resulted by a [employer] or [employer] contracted radiologist. us Ronald Cortes MD RAD [...] Power of Attor elizabeth? No Care Teams Set Up Mechanic Relationship Specialty Start Date End Date Ronald Cortes MD [address] [place] [address] PCP - General 06/10/02 documented as of this encounter
--- OUTSIDE RECORDS SUMMARY | 2024-04-11 18:10 | External Medical Summary | Summary of Care ---
Author Name Unknown Organization [facility] Address [address] [place] [address] Phone [phone] Care Team Providers Care Automation Tender Name Role Phone Ronald Cortes MD Primary Care Provider [phone] Encounter Details Date Type Department Care Team (Latest Contact Info) Description 03/15/2024 6:55 PM EST - 03/15/2024 6:59 PM EST Hospital Encounter Radiology Film File [address] [place] [address] Discharge Disposition: Home - Self [...] headache 1 Tab 0 07/28/19 14 Active [place]-3 Fatty Acids (FISH OIL) 1000 MG Capsule [...] Cough. 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 Not on file Not on file Not [...] EST Office Visit [facility] [address] [place] [address] Hitesh Gordillo, [address] [place] [address] 05/23/2024 2:00 PM EST Office Visit Pulmonary Medicine, [facility] [address] [place] [address] Marbin Serrano MD [address] [place] [address] 06/07/2024 8:30 AM EST Office Visit Cardiology, [facility] [address] [facility] [place] [address] Pepe Lennon, [address] [facility] [place] [address] 07/13/2024 3:30 PM EDT Imaging Radiology [facility] [address] [facility] [place] [id number] Scheduled Procedures [...] D LEVEL ONCE IN A LIFETIME-USE SMARTSET# 55536 Completed 03/22/2015 Pneumococcal Vaccine: 65+ Years Completed [...] this encounter Medical Devices Implanted Type Area Patient Registration Clerk Device Identifier Shelf Expiration Date Model / Serial / Lot Chip Cancellous c [id number] - [id number] Implanted:Qty: 1 on 08/08/2013 at OR [facility] Tissue - Human Left: Foot MUSCULOSKELETAL TRANSPLANT FND 07/24/2015 [id number] / [id number] / Screw Nonlock 3.5 X 24 - [id number] Implanted:Qty: 1 on 08/08/2013 at OR [facility] Left: Foot ORTHOHELIX [employer]IGNS DIPLOMATIC COURIER-011-3 5-24 / / Screw Locking 3.5 X 16 - [id number] Implanted:Qty: 2 on 08/08/2013 at OR [facility] Left: Foot ORTHOHELIX SURG[employer] DESIGNS DIPLOMATIC COURIER-021-3 5-16 / / Plate 6 Hole Beta Mxl-0026 - [id number] Implanted:Qty: 1 on 08/08/2013 at OR [facility] Left: Foot ORTHOHELIX [employer] DESIGNS MXL-0026 / / Screw Locking 3.5 X 20 - [id number] Implanted:Qty: 1 on 08/08/2013 at OR [facility] Left: Foot ORTHOHELIX [employer] DESIGNS DIPLOMATIC COURIER-021-3 5-20 / / Screw Nonlock 3.5 X 16 - [id number] Implanted:Qty: 1 on 08/08/2013 at OR [facility] Left: Foot ORTHOHELIX [employer] DESIGNS DIPLOMATIC COURIER-011-3 5-16 / / Screw Nonlock 3.5 X 18 - [id number] Implanted:Qty: 1 on 08/08/2013 at OR [facility] Left: Foot ORTHOHELIX SURG[employer] DESIGNS DIPLOMATIC COURIER-011-3 5-18 / / Screw Nonlock 3.5 X 14 - [id number] Implanted:Qty: 1 on 08/08/2013 at OR [facility] Left: Foot ORTHOHELIX [employer] DESIGNS DIPLOMATIC COURIER-011-3 5-14 / / 4.0 X 3.0 Short Max Torque Implanted:Qty: 1 on 08/08/2013 at OR [facility] Left: Foot ORTHOHEL[employer] SURG[employer] DESIGNS MSD-010-4 0-030S / / 4.0 X 32.5 Short Max Torque Implanted:Qty: 1 on 08/08/2013 at OR [facility] Left: Foot MSD-010-4 0-325S / / 4.0 X 28 Short Max Torque Implanted:Qty: 1 on 08/08/2013 at OR [facility] Left: Foot ORTHOHELIX [employer] DESIGNS MSD-010-4 0-028S / / 4.0 X 22 Short Max Torque Implanted:Qty: 1 on 08/08/2013 at OR [facility] Left: Foot ORTHOHELIX SURGICAL DESIGNS MSD-010-4 0-022S / / [place] Gold 4.0 - [id number] Implanted:Qty: 1 on 08/08/2013 at OR [facility] Left: Foot ORTHOHELIX SURG[employer] DESIGNS CSS-500-4 0A / / Plate Lps Alpha 2 Slot - [id number] Implanted:Qty: 1 on 08/08/2013 at OR [facility] Left: Foot ORTHOHELIX SURG[employer] DESIGNS MXL-002-2 A / / Screw Variable 3.5 X 12mm - [id number] Implanted:Qty: 1 on 08/08/2013 at OR [facility] Left: Foot ORTHOHELIX [employer] DESIGNS RAKESH-031-3 5-12 / / Screw Variable 3.5 X 18mm - [id number] Implanted:Qty: 1 on 08/08/2013 at OR [facility] Left: Foot ORTHOHEL[employer] DESIGNS RAKESH-031-3 5-18 [...] study not interpreted or resulted by a [employer] or [employer] contracted radiologist. us Ronald Cortes MD RAD [...] Power of Attor elizabeth? No Care Teams Automation Tender Relationship Specialty Start Date End Date Ronald Cortes MD [address] [place] [address] PCP - General 06/10/02 documented as of this encounter
--- OUTSIDE RECORDS SUMMARY | 2024-04-11 18:10 | External Medical Summary | Summary of Care ---
Author Name Unknown Organization [facility] Address [address] [place] [address] Phone [phone] Care Team Providers Care Steel Checker Name Role Phone Ronald Cortes MD Primary Care Provider [phone] Encounter Details Date Type Department Care Team (Latest Contact Info) Description 03/15/2024 6:45 PM EST - 03/15/2024 6:49 PM EST Hospital Encounter Radiology Film File [address] [place] [address] Discharge Disposition: Home - Self [...] headache 1 Tab 0 07/28/19 14 Active [place]-3 Fatty Acids (FISH OIL) 1000 MG [...] Cough. 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 [place] [address] [place] [address] Hitesh Gordillo, [address] [place] [address] 05/23/2024 2:00 PM EST Office Visit Pulmonary Medicine, [facility] [address] [facility] [place] [address] Marbin Serrano MD [address] [place] [facility] [place] [address] 06/07/2024 8:30 AM EST Office Visit Cardiology, [facility] 132 [facility] [place] [address] Pepe Lennon, 132 [facility] [place] [address] 07/13/2024 3:30 PM EDT Imaging Radiology [facility] [address] [facility] [place] [phone] Scheduled Procedures Name Priority [...] D LEVEL ONCE IN A LIFETIME-USE SMARTSET# 08236 Completed 03/22/2015 Pneumococcal Vaccine: 65+ Years Completed [...] this encounter Medical Devices Implanted Type Area Cork Tile Floor Layer Device Identifier Shelf Expiration Date Model / Serial / Lot Chip Cancellous c [id number] - [id number] Implanted:Qty: 1 on 08/08/2013 at [place] [facility] [place] - Human Left: Foot MUSCULOSKELETAL TRANSPLANT FND 07/24/2015 [id number] / [id number] / Screw Nonlock 3.5 X 24 - [id number] Implanted:Qty: 1 on 08/08/2013 at [place] [facility] [place] Left: Foot ORTHOHELIX SURGICAL DESIGNS PICKER TENDER HELPER-011-3 5-24 / / Screw Locking 3.5 X 16 - [id number] Implanted:Qty: 2 on 08/08/2013 at [place] [facility] [place] Left: Foot ORTHOHELIX SURGICAL DESIGNS PICKER TENDER HELPER-021-3 5-16 / / Plate 6 Hole Beta Mxl-0026 - [id number] Implanted:Qty: 1 on 08/08/2013 at [place] [facility] Left: Foot ORTHOHELIX SURGICAL DESIGNS MXL-0026 / / Screw Locking 3.5 X 20 - [id number] Implanted:Qty: 1 on 08/08/2013 at [place] [facility] Left: Foot ORTHOHELIX SURGICAL DESIGNS PICKER TENDER HELPER-021-3 5-20 / / Screw Nonlock 3.5 X 16 - [id number] Implanted:Qty: 1 on 08/08/2013 at [place] [facility] Left: Foot ORTHOHELIX SURGICAL DESIGNS PICKER TENDER HELPER-011-3 5-16 / / Screw Nonlock 3.5 X 18 - [id number] Implanted:Qty: 1 on 08/08/2013 at [place] [facility] Left: Foot ORTHOHELIX SURGICAL DESIGNS PICKER TENDER HELPER-011-3 5-18 / / Screw Nonlock 3.5 X 14 - [id number] Implanted:Qty: 1 on 08/08/2013 at [place] [facility] Left: Foot ORTHOHELIX SURGICAL DESIGNS PICKER TENDER HELPER-011-3 5-14 / / 4.0 X 3.0 [...] / / [place] Gold 4.0 - [id number] Implanted:Qty: 1 on 08/08/2013 at [place] [facility] Left: Foot ORTHOHELIX SURGICAL DESIGNS CSS-500-4 0A / / Plate Lps Alpha 2 Slot - [id number] Implanted:Qty: 1 on 08/08/2013 at [place] [facility] Left: Foot ORTHOHELIX SURGICAL DESIGNS MXL-002-2 A / / Screw Variable 3.5 X 12mm - [id number] Implanted:Qty: 1 on 08/08/2013 at [place] [facility] Left: Foot ORTHOHELIX SURGICAL DESIGNS RAKESH-031-3 5-12 / / Screw Variable 3.5 X 18mm - [id number] Implanted:Qty: 1 on 08/08/2013 at [facility] [...] study not interpreted or resulted by a [employer] or [employer] contracted radiologist. us Ronald Cortes MD RADIOLOGY [...] Power of Attor elizabeth? No Care Teams Steel Checker Relationship Specialty Start Date End Date Ronald Cortes MD [address] [place] [address] PCP - General 06/10/02 documented as of this encounter
--- NOTE | 2024-04-12 09:52 | Coding Query ---
CODING QUERY To promote full compliance with coding requirements relating to patient care, provider participation is requested in all cases of icd 9 coder uncertainty. Please assist us with the question(s) below: Coding Question(s): The H&P documents, "Patient did have an elevated troponin of 192.6 during her initial workup on 03/15/2024. There was no evidence of an acute STEMI on the presenting EKG however there were some T wave inversions in the anterolateral plus inferior leads on that likely represented an NSTEMI type II", and the Addendum on the 03/25 Progress Note documents, "Demand ischemia myocardial infarction within the past 4 weeks". Please specify below, in your clinical opinion, regarding the VA within the past 4 weeks: ( x) Myocardial Infarction due to Demand Ischemia within the past 4 weeks (Type 2 VA) ( ) NSTEMI type II within the past 4 weeks Physician's Response(s): Thank you Mariam Mcgovern Principal Diagnosis: "that condition established after study, to be chiefly responsible for occasioning the admission of the patient to the hospital for care." Co-Existing Principal Diagnosis: "when two or more diagnoses equally meet the criteria for principal diagnosis as determined by the circumstances of admission, diagnostic work up, and/or therapy provided, and the Alphabetic Index, Tabular List, or another coding guideline does not provide sequencing direction, any one of the diagnoses may be sequenced first." "When the physician has documented what appears to be a current diagnosis in the body of the record, but has not included the diagnosis in the final diagnostic statement, the physician should be asked whether the diagnosis should be added." (Source Coding Clinic 2 QTR90. p3-4) BLAIR
--- NOTE | 2024-04-12 09:54 | Coding Query ---
To promote full compliance with coding requirements relating to patient care, physician participation is requested in all cases of back hanger uncertainty. Please assist us with the question(s) below: Coding Question(s): It was noted throughout the record that the patient has/is suspected to have osteoporosis. According to coding guidelines "a code for osteoporotic fracture, and not a traumatic fracture, should be used for any patient with known osteoporosis who suffers a fracture, even if the patient had a minor fall or trauma, if that fall or trauma would not usually break a normal, healthy bone." Please indicate below the type of fracture: Physician's Response(s): ( x ) Osteoporotic fracture of Distal End of Left Humerus ( ) Traumatic fracture of Distal End of Left Humerus ( X ) Other, please specify The fracture was treated in [place], they were 2 weeks post-op MTDD
== END 2024-04-01 14:14 | DRG 542 ==
LOC: OBSVTOIN 03-24 12:21 → 2W 03-24 12:21 → INTOOBSV 03-24 12:21 → SUATTDRO 03-24 12:21 → 3E 03-27 22:48
DX: S00.83XA Contusion of other part of head, initial encounter; Z79.890 Hormone replacement therapy; J96.11 Chronic respiratory failure with hypoxia; Z79.51 Long term (current) use of inhaled steroids; I16.0 Hypertensive urgency; E78.5 Hyperlipidemia, unspecified; I25.10 Atherosclerotic heart disease of native coronary artery without angina pectoris; Z79.01 Long term (current) use of anticoagulants; Z79.899 Other long term (current) drug therapy; E83.42 Hypomagnesemia; F41.9 Anxiety disorder, unspecified; M80.022A Age-related osteoporosis with current pathological fracture, left humerus, initial encounter for fracture; Z88.1 Allergy status to other antibiotic agents; Z91.030 Bee allergy status; I10 Essential (primary) hypertension; I48.0 Paroxysmal atrial fibrillation; E03.9 Hypothyroidism, unspecified; I21.A1 Myocardial infarction type 2; Z99.81 Dependence on supplemental oxygen; Z87.440 Personal history of urinary (tract) infections; J44.9 Chronic obstructive pulmonary disease, unspecified; I25.2 Old myocardial infarction; Z79.02 Long term (current) use of antithrombotics/antiplatelets; D62 Acute posthemorrhagic anemia; W19.XXXA Unspecified fall, initial encounter; S80.02XA Contusion of left knee, initial encounter; I48.20 Chronic atrial fibrillation, unspecified; E11.9 Type 2 diabetes mellitus without complications

== ENCOUNTER 2024-07-08 20:09 | Observation (INO) ==
[2024-07-08 21:06] LABS: Basophils # (auto) 0.04 K/uL (0.00-0.20); Basophils % (auto) 0.4 %; Eosinophils # (auto) 0.06 K/uL (0.00-0.50); Eosinophils % (auto) 0.6 %; Hematocrit (blood only) 38.8 % (37.0-47.0); Hemoglobin 12.4 g/dl (12.0-16.0); Immature Granulocytes # (auto) 0.04 K/uL (0.01-0.20); Immature Granulocytes % (auto) 0.4 %; Lymphocytes # (auto) 1.83 K/uL (1.20-3.40); Lymphocytes % (auto) 18.7 %; Mean Corpuscular Hemoglobin 28.6 pg (25.0-34.0); Mean Corpuscular Volume 89.4 fL (80.0-100.0); Mean Platelet Volume 8.7 fL (9.4-12.4); Monocytes # (auto) 0.56 K/uL (0.11-0.59); Monocytes % (auto) 5.7 %; Neutrophils # (auto) 7.26 K/uL (1.40-6.50); Neutrophils % (auto) 74.2 %; Platelet Count 504 K/uL (130-400); RDW Coefficient of Variation 14.9 % (11.5-14.5); RDW Standard Deviation 48.8 fL (36.4-46.3); Red Blood Count 4.34 M/uL (4.20-5.40); White Blood Count 9.79 K/ul (4.8-10.8)
[2024-07-08 21:23] LABS: Albumin Globulin Ratio 0.7 (0.9-2); Albumin Level 3.3 gm/dl (3.4-5.0); BUN Creatinine Ratio 12.2 (10-20); Bilirubin,Total 0.4 mg/dl (0.2-1.0); Calcium 9.8 mg/dl (8.6-10.3); Creatinine Clr Calc Pharmacy 41.7 ml/min; Globulin 4.5 gm/dl (2.5-4.0); Potassium 4.3 mmol/L (3.5-5.1); Total Protein 7.8 gm/dl (6.0-8.3)
[2024-07-08 22:00] LABS: Magnesium 1.6 mg/dl (1.7-2.4)
[2024-07-08] MEDS: FAMOTIDINE 20MG IV PUSH 20 MG/5 ML SYR IV STA (22:07)
[2024-07-08 22:08] LABS: Troponin I High Sensitivity 15.7 pg/ml (0-14)
[2024-07-08] MEDS: ONDANSETRON INJ 2 MG/ML 2 ML VIAL IV STA (22:09)
[2024-07-08] MEDS: SODIUM CHLORIDE 0.9% 500 ML IV ONE (22:09)
[2024-07-08 22:17] LABS: Thyroid Stimulating Hormone 1.836 uIu/ml (0.300-4.500)
[2024-07-08] MEDS: OPTIRAY 320 125ml IV ONE (22:58)
[2024-07-08] MEDS: MAGNESIUM SULFATE / D5W 1 GM/100 ML BAG IV SCH (23:14)
--- NOTE | 2024-07-08 23:15 | Emergency Department Note ---
History of Present Illness General Chief complaint: Weakness Stated complaint: WEAKNESS, DIARRHEA, SOB Time Seen by Provider: 07/08/24 21:25 History of Present Illness Maximum Pain Intensity: 8 This 74-year-old female with COPD presents the ER complaining of generalized weakness, abdominal pain and chronic loose stool with lack of appetite and weight loss for the past few months. Patient denies chest pain, cough, congestion, vomiting. She states she has no real appetite. Home Medications Medication Instructions Recorded Confirmed Type multivitamin 1 tab PO DAILY #0 tabs 02/07/14 07/09/24 History omega 8-kkl-yax-fish oil 1,000 mg 1 cap PO DAILY #0 caps 04/22/17 07/09/24 History (120 mg-180 mg) capsule (Fish Oil) magnesium oxide 400 mg PO BID #0 tabs 06/01/17 07/09/24 History apixaban 5 mg tablet (Eliquis) 5 mg PO BID 12/06/23 07/09/24 History atorvastatin 40 mg tablet 40 mg PO QAM 12/06/23 07/09/24 History citalopram 40 mg tablet 40 mg PO QAM 12/06/23 07/09/24 History clopidogrel 75 mg tablet 75 mg PO QAM 12/06/23 07/09/24 History fluticasone propionate 115 2 puff inhalation AMHS 12/06/23 07/09/24 History mcg-salmeterol 21 mcg/actuation HFA inhaler gabapentin 300 mg capsule 300 mg PO BID 12/06/23 07/09/24 History levothyroxine 25 mcg tablet 25 mcg PO DAILYBB 12/06/23 07/09/24 History oxybutynin chloride 5 mg 5 mg PO QAM 12/06/23 07/09/24 History tablet,extended release 24 hr potassium chloride 10 mEq 10 meq PO AMHS 12/06/23 07/09/24 History tablet,extended release(part/cryst) (Klor-Con M) nitroglycerin 0.4 mg sublingual 0.4 mg sublingual Q5M PRN chest 12/09/23 07/09/24 Rx tablet (Nitrostat) pain #30 tabs umeclidinium 62.5 mcg/actuation 1 inh inhalation DAILY #30 ea 12/14/23 07/09/24 Rx blister powder for inhalation (Incruse Ellipta) ipratropium 0.5 mg-albuterol 3 mg 3 ml NEB QIDR PRN shortness of 12/28/23 07/09/24 Rx (2.5 mg base)/3 mL nebulization breath #90 mL soln albuterol sulfate 90 mcg/actuation 2 puff inhalation Q4 PRN WHEEZING 01/30/24 07/09/24 History aerosol inhaler OR COUGH pantoprazole 40 mg tablet,delayed 40 mg PO QAM 01/30/24 07/09/24 History release (Protonix) tiotropium bromide 18 mcg capsule 1 cap inhalation QAM 03/02/24 07/09/24 History with inhalation device alendronate 70 mg tablet 70 mg PO WK 03/15/24 07/09/24 History cholecalciferol (vitamin D3) 50 50 mcg PO DAILY 03/24/24 07/09/24 History mcg (2,000 unit) tablet (Vitamin D3) furosemide 40 mg tablet 20 mg PO QAM 03/24/24 07/09/24 History carvedilol 6.25 mg tablet 6.25 mg PO BID #60 tabs 04/01/24 07/09/24 Rx losartan 50 mg tablet 100 mg (2 x 50 mg) PO QAM #30 tabs 04/01/24 07/09/24 Rx oxycodone 5 mg tablet 5 mg PO Q4H PRN pain #15 tabs 04/01/24 07/09/24 Rx amoxicillin 500 mg-potassium 1 tab PO BID 7 days #14 tabs 07/09/24 Rx clavulanate 125 mg tablet (Augmentin) phenazopyridine 200 mg tablet 200 mg PO TID PRN pain #30 tabs 07/09/24 Rx (Pyridium) Allergies Allergy/AdvReac Type Severity Reaction Status Date / Time bee venom protein (honey bee) Allergy Severe SWELLING Verified 01/30/24 16:12 SEVERE doxycycline Allergy Intermediate Vomiting Verified 01/30/24 16:12 Past Med/Surg History Problem List (Updated 07/09/24 @ 03:07 by Background Dione) Hypomagnesemia (Acute) Cellulitis of arm, left (Acute) Weakness (Acute) Elevated troponin (Acute) Abnormal ECG (Acute) Acute UTI (Acute) S/P ORIF (open reduction internal fixation) fracture Acute blood loss anemia Chronic anemia Hypomagnesemia Left humeral fracture Contusion of left knee Asymptomatic hypertensive urgency Acute pain of left knee (Acute) Anticoagulant long-term use (Acute) Contusion of face (Acute) Fracture of distal end of left humerus (Acute) Fall (Acute) Acute on chronic anemia E. coli UTI Acute dehydration (Acute) COPD (chronic obstructive pulmonary disease) (Acute) GUTIERREZ (acute kidney injury) (Acute) COPD (chronic obstructive pulmonary disease) (Acute) Acute and chronic postprocedural respiratory failure (Acute) COPD with exacerbation Acute on chronic respiratory failure with hypoxia and hypercapnia (Acute) COPD (chronic obstructive pulmonary disease) (Acute) Dyslipidemia, goal LDL below 70 PAF (paroxysmal atrial fibrillation) Uncontrolled hypertension ASCVD (arteriosclerotic cardiovascular disease) Chest pain at rest Thickened endometrium Elevated brain natriuretic peptide (BNP) level (Acute) Nausea & vomiting (Acute) Chest pain (Acute) Asthma exacerbation (Acute) Gastroenteritis (Acute) Fall in home (Acute) CHI (closed head injury) (Acute) Scalp laceration (Acute) Facial laceration (Acute) Heart disease HTN (hypertension) Kidney disease Bronchitis Fall in home (Acute) Hyponatremia (Acute) Hypokalemia (Acute) Abdominal pain Diarrhea Vomiting Medical History Absent pedal pulses Macular degeneration Asthma Tobacco use disorder Coronary atherosclerosis of [place] coronary vessel Benign hypertension Atrial fibrillation Diabetes Surgical History H/O heart surgery History of cholecystectomy Hx of tubal ligation Social History Smoking Status: Current every day smoker Tobacco Type: Cigarettes Cigarettes Per Day: 5; Second Hand Exposure: No; Do You Dip or Chew Tobacco: No; Hx Alcohol Use: No Hx Substance Use: No Preferred Language: Frisian Communication Ability: Effective [employer] Dean Required: No Beliefs That Will Affect Care: None Current Living Situation: Family Current Living Situation Comment: with daughter Feels Safe at Home: Yes Assistive Devices: Cane, Oxygen - Continuous, Walker and Wheelchair Review of Systems A total of 10 systems reviewed and were otherwise negative Physical Exam Vital Signs Vital Signs - 24 hr 07/08/24 20:01 07/08/24 20:24 07/08/24 22:00 Temperature 36.7 C Temperature Source Oral Pulse Rate 94 H 100 H Pulse Rate [Apical] 86 Pulse Rhythm Irregular Pulse Rhythm [Apical] Irregular Pulse Strength [Apical] Normal Respiratory Rate 22 20 Respiratory Effort / Characteristics Spontaneous Non-Labored Spontaneous Respiratory Depth Shallow Normal Respiratory Pattern Regular Regular Blood Pressure 156/113 H Blood Pressure [Right Arm] 137/100 Blood Pressure Mean 127 Blood Pressure Mean [Right Arm] 112 Blood Pressure Position Lying Blood Pressure Position [Right Arm] Lying Pulse Oximetry 100 100 Oxygen Delivery Method Nasal Cannula Nasal Cannula Oxygen Flow Rate 2 2 Sepsis Recent Fever Within 48 Hours No Sepsis New/Unexplained Change in Mental Status No Sepsis Action Taken by Nursing No Action Required 07/09/24 00:00 07/09/24 00:13 07/09/24 01:18 Temperature Temperature Source Pulse Rate 81 Pulse Rate [Apical] 84 83 Pulse Rhythm Pulse Rhythm [Apical] Irregular Irregular Pulse Strength [Apical] Normal Respiratory Rate 20 16 Respiratory Effort / Characteristics Non-Labored Spontaneous Non-Labored Spontaneous Respiratory Depth Normal Normal Respiratory Pattern Regular Regular Blood Pressure Blood Pressure [Right Arm] 143/81 H 137/80 Blood Pressure Mean Blood Pressure Mean [Right Arm] 101 99 Blood Pressure Position Blood Pressure Position [Right Arm] Lying Lying Pulse Oximetry 100 100 Oxygen Delivery Method Nasal Cannula Nasal Cannula Oxygen Flow Rate 2 2 Sepsis Recent Fever Within 48 Hours Sepsis New/Unexplained Change in Mental Status Sepsis Action Taken by Nursing VITALS: Vitals are noted on the nurse's note and reviewed by myself. Vital signs stable. GENERAL: Pleasant female dehydrated appearing, in no acute distress, nondiaphoretic, well-developed well-nourished. SKIN: Left elbow with abrasion with surrounding erythema concerning for infection, the rest of the skin was without rashes, erythema, edema, or bruising. There is no tenting of the skin. Capillary reflex less than 2 seconds. HEAD: Normocephalic atraumatic. EARS: External auditory canals clear EYES: Pupils equal round and reactive to light and accommodation. Conjunctivae without injection, sclerae without icterus. Extraocular movements intact. NOSE: Patent, no discharge. MOUTH: Mucous membranes moist. Pharynx without erythema or exudate. Uvula midline. Airway patent. Tongue does not deviate. NECK: Supple without nuchal rigidity. No lymphadenopathy. No thyromegaly. Cervical spine is nontender. No JVD. HEART: Regular rate and rhythm LUNGS: Clear to auscultation bilaterally without wheezes, rales or rhonchi. No retractions or accessory muscle use. ABDOMEN: Positive bowel sounds x 4. Normal tympanic percussion. Soft, tender to palpation lower abdomen, without masses or organomegaly. Berrios sign negative. No guarding or rebound tenderness. No CVA tenderness MUSCULOSKELETAL: No muscle atrophy, erythema, or edema noted. NEURO: Patient was alert and oriented to person place and time. Normal sensation to light and sharp touch. No focal neurological deficits. Course Administered Medications Discontinued Medications Acetaminophen (Acetaminophen 325 Mg Tab) 650 mg PO Q4H PRN PRN Reason: Pain rating 1-5 or Fever Stop: 08/08/24 03:27 Last Admin: 07/09/24 08:39 Dose: 650 mg Documented By: VICENTE Apixaban (Apixaban 5 Mg Tablet) 5 mg PO BID [facility] Stop: 08/08/24 08:59 Last Admin: 07/09/24 08:32 Dose: 5 mg Documented By: VICENTE Atorvastatin Calcium (Atorvastatin 40 Mg Tab) 40 mg PO QAM [facility] Stop: 08/08/24 08:59 Last Admin: 07/09/24 08:32 Dose: 40 mg Documented By: VICENTE Carvedilol (Carvedilol 6.25 Mg Tab) 6.25 mg PO BID [facility] Stop: 08/08/24 08:59 Last Admin: 07/09/24 08:33 Dose: 6.25 mg Documented By: VICENTE Clopidogrel Bisulfate (Clopidogrel Bisulfate 75 Mg Tab) 75 mg PO QAM [facility] Stop: 08/08/24 08:59 Last Admin: 07/09/24 08:33 Dose: 75 mg Documented By: VICENTE Fluticasone/Vilanterol (Fluticasone/Vilanterol 200/25mcg 14 Puffs/Inhaler) 1 puffs INH DAILY [facility] Stop: 08/08/24 08:59 Last Admin: 07/09/24 08:33 Dose: 1 puffs Documented By: VICENTE Furosemide (Furosemide 20 Mg Tab) 20 mg PO QAM [facility] Stop: 08/08/24 08:59 Last Admin: 07/09/24 08:12 Dose: Not Given Documented By: VICENTE Gabapentin (Gabapentin 300 Mg Cap) 300 mg PO BID [facility] Stop: 08/08/24 08:59 Last Admin: 07/09/24 08:33 Dose: 300 mg Documented By: VICENTE Sodium Chloride (Nss) 500 mls @ 999 mls/hr IV .Q31M ONE Stop: 07/08/24 22:10 Last Infusion: 07/08/24 22:40 Dose: Infused Documented By: Admin: 07/08/24 22:09 Dose: 999 mls/hr Documented By: JACQUELYN Famotidine (Pepcid 20mg Iv Push) 20 mg in 5 mls @ 2.5 mls/min IV NOW STA Stop: 07/08/24 21:41 Last Admin: 07/08/24 22:07 Dose: 2.5 mls/min Documented By: JACQUELYN Magnesium Sulfate/Dextrose (Magnesium Sulfate / D5w) 1 gm in 100 mls @ 100 mls/hr IV Q1H [facility] Stop: 07/09/24 00:33 Last Infusion: 07/09/24 01:09 Dose: Infused Documented By: Admin: 07/09/24 00:09 Dose: 100 mls/hr Documented By: Infusion: 07/09/24 00:09 Dose: Infused Documented By: Admin: 07/08/24 23:14 Dose: 100 mls/hr Documented By: YAW Ceftriaxone Sodium (Rocephin) 1,000 mg in 50 mls @ 100 mls/hr IV NOW STA Stop: 07/08/24 23:44 Last Infusion: 07/09/24 00:13 Dose: Infused Documented By: Admin: 07/08/24 23:43 Dose: 100 mls/hr Documented By: JACQUELYN Sodium Chloride (Nss) 1,000 mls @ 80 mls/hr IV .[id number] [facility] Stop: 07/09/24 15:57 Last Infusion: 07/09/24 14:32 Dose: Infused Documented By: Infusion: 07/09/24 10:05 Dose: 80 mls/hr Documented By: Infusion: 07/09/24 08:47 Dose: 0 mls/hr Documented By: Admin: 07/09/24 04:07 Dose: 80 mls/hr Documented By: MICHAEL Potassium Chloride (K Miguelangel / Wtr) 10 meq in 100 mls @ 100 mls/hr IV ONE ONE Stop: 07/09/24 08:42 Last Infusion: 07/09/24 11:47 Dose: Infused Documented By: Infusion: 07/09/24 10:05 Dose: 65 mls/hr Documented By: Infusion: 07/09/24 08:46 Dose: 0 mls/hr Documented By: Infusion: 07/09/24 08:31 Dose: 65 mls/hr Documented By: Infusion: 07/09/24 08:20 Dose: 0 mls/hr Documented By: Admin: 07/09/24 08:20 Dose: 100 mls/hr Documented By: VICENTE Sodium Chloride (Nss) 500 mls @ 999 mls/hr IV .Q31M ONE Stop: 07/09/24 08:51 Last Admin: 07/09/24 08:26 Dose: Not Given Documented By: VICENTE Ioversol (Optiray 320 125ml) 119 ml IV ONCE ONE Stop: 07/08/24 22:56 Last Admin: 07/08/24 22:58 Dose: 119 ml Documented By: RUBÉN Levothyroxine Sodium (Levothyroxine Sodium 25 Mcg Tablet) 25 mcg PO DAILYBB [facility] Stop: 08/08/24 06:29 Last Admin: 07/09/24 05:54 Dose: 25 mcg Documented By: MICHAEL Losartan Potassium (Losartan Potassium 50 Mg Tab) 100 mg PO QAM [facility] Stop: 08/08/24 08:59 Last Admin: 07/09/24 08:33 Dose: 100 mg Documented By: VICENTE Magnesium Oxide (Magnesium Oxide 400 Mg Tab) 400 mg PO BID [facility] Stop: 08/08/24 08:59 Last Admin: 07/09/24 08:34 Dose: 400 mg Documented By: VICENTE Multivitamins (Multivitamin Tab) 1 tab PO DAILY [facility] Stop: 08/08/24 08:59 Last Admin: 07/09/24 08:34 Dose: 1 tab Documented By: VICENTE Ondansetron HCl (Ondansetron Inj 2 Mg/Ml 2 Ml Vial) 4 mg IV NOW STA Stop: 07/08/24 21:41 Last Admin: 07/08/24 22:09 Dose: 4 mg Documented By: JACQUELYN Oxybutynin Chloride (Oxybutynin Chloride Xl 5 Mg Tabcr) 5 mg PO QAM [facility] Stop: 08/08/24 08:59 Last Admin: 07/09/24 08:34 Dose: 5 mg Documented By: VICENTE Oxycodone HCl (Oxycodone Hcl Ir 5 Mg Tab (Immediate Release)) 5 mg PO Q4H PRN PRN Reason: pain rating 6-10 Stop: 07/23/24 03:27 Last Admin: 07/09/24 08:19 Dose: 5 mg Documented By: VICENTE Pantoprazole Sodium (Pantoprazole 40 Mg Tab) 40 mg PO QAM [facility] Stop: 08/08/24 08:59 Last Admin: 07/09/24 08:34 Dose: 40 mg Documented By: VICENTE Potassium Chloride (Potassium Chloride 10 Meq Tabcr) 10 meq PO AMHS [facility] Stop: 08/08/24 08:59 Last Admin: 07/09/24 08:34 Dose: 10 meq Documented By: VICENTE Potassium Chloride (Potassium Chloride Crtab 20 Meq Tabcr) 40 meq PO NOW STA Stop: 07/09/24 07:44 Last Admin: 07/09/24 08:32 Dose: 40 meq Documented By: VICENTE Umeclidinium Young (Umeclidinium Young 62.5mcg/Blister 7 Puffs/Inhaler) 1 puffs INH QAM [facility] Stop: 08/08/24 08:59 Last Admin: 07/09/24 08:34 Dose: 1 puffs Documented By: VICENTE Vitamin D (Cholecalciferol 25 Mcg (1000 Units) Tab) 50 mcg PO DAILY [facility] Stop: 08/08/24 08:59 Last Admin: 07/09/24 08:33 Dose: 50 mcg Documented By: VICENTE Medical Decision Making Medical Records Attestation: I reviewed the patient's medical records. Home Medications Current Medication List: was personally reviewed by me Laboratory Data Attestation: I reviewed the patient's lab results. 07/09/24 06:05 07/09/24 05:10 Lab Results 07/08/24 07/08/24 07/08/24 Range/Units 18:26 22:39 23:26 WBC 9.79 (4.8-10.8) K/ul RBC 4.34 (4.20-5.40) M/uL Hgb 12.4 (12.0-16.0) g/dl Hct 38.8 (37.0-47.0) % MCV 89.4 (80.0-100.0) fL MCH 28.6 (25.0-34.0) pg MCHC 32.0 (32.0-36.0) g/dL RDW Std Deviation 48.8 H (36.4-46.3) fL RDW Coeff of Chet 14.9 H (11.5-14.5) % Plt Count 504 H (130-400) K/uL MPV 8.7 L (9.4-12.4) fL Immature Gran % (Auto) 0.4 % Neut % (Auto) 74.2 % Lymph % (Auto) 18.7 % Fannin % (Auto) 5.7 % Eos % (Auto) 0.6 % Baso % (Auto) 0.4 % Neut # (Auto) 7.26 H (1.40-6.50) K/uL Lymph # (Auto) 1.83 (1.20-3.40) K/uL [place]in # (Auto) 0.56 (0.11-0.59) K/uL Eos # (Auto) 0.06 (0.00-0.50) K/uL Baso # (Auto) 0.04 (0.00-0.20) K/uL Immature Gran # (Auto) 0.04 (0.01-0.20) K/uL Sodium 139 (136-145) mmol/L Potassium 4.3 (3.5-5.1) mmol/L Chloride 97 L (98-107) mmol/L Carbon Dioxide 36 H (21-32) mmol/L Anion Gap 6 (3-11) BUN 10 (6-23) mg/dl Creatinine 0.82 (0.6-1.2) mg/dl Est Cr Clr Drug Dosing 41.7 ml/min eGFR 74.55 BUN/Creatinine Ratio 12.2 (10-20) Glucose 129 H (70-99(Fasting)) mg/dl Calcium 9.8 (8.6-10.3) mg/dl Magnesium 1.6 L (1.7-2.4) mg/dl Total Bilirubin 0.4 (0.2-1.0) mg/dl AST 16 (13-39) U/L ALT 5 L (7-52) U/L Alkaline Phosphatase 120 H (34-104) U/L Troponin I High Sens 15.7 H 19.0 H (0-14) pg/ml Total Protein 7.8 (6.0-8.3) gm/dl Albumin 3.3 L (3.4-5.0) gm/dl Globulin 4.5 H (2.5-4.0) gm/dl Albumin/Globulin Ratio 0.7 L (0.9-2) TSH 1.836 (0.300-4.500) uIu/ml Urine Color Yellow Urine Appearance Cloudy A (Clear) Urine pH 7.0 (4.5-7.5) Ur Specific [place] 1.012 (1.000-1.030) Urine Protein 1+ H (Negative) Urine Glucose (UA) Negative (Negative) Urine Ketones Negative (Negative) Urine Blood Negative (Negative) Urine Nitrite Positive A (Negative) Urine Bilirubin Negative (Negative) Urine Urobilinogen Negative (Negative) Ur Leukocyte Esterase 3+ H (Negative) Urine WBC (Auto) 21-50 H (0-5) /hpf Urine RBC (Auto) >20 H (0-2) /hpf U Hyaline Cast (Auto) 0-2 (0-2) /lpf U Epithel Cells (Auto) 0-2 (0-2) /hpf Urine Bacteria (Auto) 4+ H (None Seen) Imaging Data Attestation: I personally reviewed and interpreted this imaging study as follows: Radiologist's Impression: Chest X-Ray 07/08/24 20:47 Exam(s): XR CXR 1 VIEW EXAM: XR Chest, 1 View CLINICAL HISTORY: Shortness of breath. TECHNIQUE: Frontal view of the chest. COMPARISON: Chest radiograph 03/25/2024 FINDINGS: Lungs: Emphysema. No consolidation. Pleural space: Unremarkable. No pneumothorax. Heart: Unremarkable. No cardiomegaly. Mediastinum: Unremarkable. Normal mediastinal contour. Bones/joints: There are degenerative changes of the spine. No acute fracture. IMPRESSION: No acute findings in the chest. Electronically signed by: Gardenia Zheng MD 07/08/24 23:13 PM Abdomen/Pelvis CT 07/08/24 21:40 Exam(s): CT ABDOMEN + PELVIS With Contrast IV Amt: 119ml optiray 320 EXAM: CT Abdomen and Pelvis With Intravenous Contrast CLINICAL HISTORY: Reason for exam: pain. TECHNIQUE: Axial computed tomography images of the abdomen and pelvis with intravenous contrast. CTDI is 8.5 mGy and DLP is 536.63 mGy-cm. Automated exposure control was utilized for the study. A dose lowering technique was utilized adhering to the principles of ALARA. CONTRAST: Patient received 119ml optiray 320 of IV contrast COMPARISON: CT abdomen pelvis with contrast March 15, 2024. FINDINGS: ABDOMEN: Liver: Unremarkable. No mass. Gallbladder and bile ducts: Cholecystectomy. No ductal dilation. Pancreas: Unremarkable. No mass. No ductal dilation. Spleen: Unremarkable. No splenomegaly. Adrenals: Unremarkable. No mass. Kidneys and ureters: Unremarkable. No solid mass. No hydronephrosis. Stomach and bowel: Unremarkable. No obstruction. No mucosal thickening. PELVIS: Appendix: No findings to suggest acute appendicitis. Bladder: Unremarkable. No mass. ABDOMEN and PELVIS: Intraperitoneal space: Unremarkable. No free air. No significant fluid collection. Bones/joints: Thoracolumbar levoscoliosis. Old compression fracture of the T11 vertebral body. No acute bone abnormality. Soft tissues: Unremarkable. Vasculature: Abdominal aortic aneurysm measuring approximately 3.3 cm in diameter. Lymph nodes: Unremarkable. No enlarged lymph nodes. IMPRESSION: No acute findings in the abdomen or pelvis. 2.3 cm abdominal aortic aneurysm. Electronically signed by: Eric Mcghee MD 07/08/24 23:43 PM Chest CTA 07/08/24 21:40 Exam(s): CTA CHEST IV Amt: 119ml optiray 320 EXAM: CT Angiography Chest With Intravenous Contrast CLINICAL HISTORY: Reason for exam: PE. TECHNIQUE: Axial computed tomographic angiography images of the chest with intravenous contrast. CTDI is 9.5 mGy and DLP is 536.63 mGy-cm. Automated exposure control was utilized for the study. A dose lowering technique was utilized adhering to the principles of ALARA. MIP reconstructed images were created and reviewed. COMPARISON: No relevant prior studies available. FINDINGS: Pulmonary arteries: Unremarkable. No pulmonary embolism. Aorta: No acute findings. No thoracic aortic aneurysm. Lungs: Unremarkable. No mass. No consolidation. Pleural space: Unremarkable. No significant effusion. No pneumothorax. Heart: Unremarkable. No cardiomegaly. No significant pericardial effusion. No evidence of RV dysfunction. Bones/joints: No acute fracture. No dislocation. Old compression fracture of the T11 vertebral body. Soft tissues: Unremarkable. Lymph nodes: Unremarkable. No enlarged lymph nodes. IMPRESSION: No evidence of pulmonary emboli or acute cardiopulmonary process. Electronically signed by: Eric Mcghee MD 07/08/24 23:35 PM MDM Narrative Prior records/ancillary studies reviewed and summarized above. Nursing notes reviewed. Additional history obtained from family. The patient's history was concerning for increasing weakness, lack of appetite, chronic loose stool and abdominal pain for the past several months. Differential diagnosis: Etiologies such as failure to thrive, cancer, metabolic, infection, hypo/hyperglycemia, electrolyte abnormalities, cardiac sources, intracerebral event, toxicologic, neurologic, as well as others were entertained. Physical examination: As above. ER treatment provided: IV Lock An order was placed for continuous cardiac monitoring. The monitor shows a rate of 60-100 with a sinus rhythm per my interpretation. Rocephin, IV fluids, magnesium On reassessment the patient felt better. Diagnostics interpretation by me: ECG: Ordered for weakness EKG: Normal sinus, T wave inversions in the lateral leads, rate 82. Impression normal sinus rhythm T wave inversions with ST depression in the lateral leads which is new per chart review independently turbid by myself EKG #2 ordered for positive troponin EKG: Normal sinus, persistent T wave inversions in the lateral leads similar to earlier EKG. Impression normal sinus rhythm with persistent T wave inversions and ST depression in the lateral leads independently interpreted by myself. The labs Independently Interpreted by myself revealed minimally elevated troponin repeat was ordered and repeat was similar Magnesium was low and this was replaced Urine concerning for infection [place] [address] / Director: Betty Caro M.D. Clinical Laboratory Report Name: JJ TORREZ Acct: [id number] Status: DIS IN : 1950 [facility] Date: 05/03/23 Age: 74 Sex: F Dis Date: 05/08/23 Loc: [address]/Bed: N275-1 Spec: [id number] Collected: 03/02/24 Received: 03/02/[address]: Mery Pearl MD Source: Urine,Straight Cath OV Order: Ordered: Urine Culture Procedure Result Verified Site Urine Culture Final 03/05/24103 Organism 1 Escherichia coli [place] Count >100,000 CFU/ml Sens Sensitivities to Follow E coli RX M.I.C. --- --------- Amikacin S <=16 Amox/Clav S <=8/4 Ampicillin S <=8 Amp/Sul S <=4/2 Cefazolin S <=2 Cefepime S <=2 Cefotaxime S <=2 Cefoxitin S <=8 Ceftriaxone S <=1 Cefuroxime S <=4 Ciprofloxacin S <=0.25 Ertapenem S <=0.5 Gentamicin S <=2 Levofloxacin S <=0.5 Meropenem S <=1 Nitrofurantoin S <=32 Tobramycin S <=2 Trimeth/Sulfa S <=0.5/9.5 Pip/Tazo S <=8 S = SENSITIVE I = INTERMEDIATE R = RESISTANT Imaging studies: Imaging was reviewed and read by radiology Consultation: A consultation was placed with the hospitalist. The case was discussed and diagnostics were reviewed. The patient was evaluated in the ER for further treatment. Exam and history seem consistent with increasing weakness with failure to thrive who has a UTI, low magnesium abnormal EKG and slightly elevated troponin. Magnesium was replaced. Patient is given Rocephin for the UTI and left elbow infection. Medicine was consulted case discussed. She will be mated to the medical service. Patient is agreeable. By the evaluation outlined above emergent etiologies such as intracerebral event, toxologic, abnormalities blood glucose, metabolic, as well as others were deemed relatively unlikely. The pt informed about the findings as listed above. All questions were answered and pleased with the treatment. The chart was completed utilizing [employer] voice recognition software. Grammatical errors, random word insertions, pronoun errors, and incomplete sentences are an occassional consequence of this system due to software limitations, ambient noise, and hardware issues. Any formal questions or concerns about the content, text, or information contained within the body of this dictation should be directly addressed to the physician assistant in nursing for clarification. Impression & Plan Acute UTI, Abnormal ECG, Elevated troponin, Weakness, Cellulitis of arm, left, Hypomagnesemia Discharge Plan Visit Data Chief Complaint: Weakness Stated Complaint: WEAKNESS, DIARRHEA, SOB ED Provider: Elton Shepard ED Midlevel Provider: Anna Durán Discharge Problem: Acute UTI, Abnormal ECG, Elevated troponin, Weakness, Cellulitis of arm, left, Hypomagnesemia Patient Disposition: Admitted As Inpatient Condition: Fair Discharge Instructions Interventions: ED Discharge Assessment Last Done: 07/09/24 02:41 Addendum July 09, 2024 19:34 I was consulted by the Advanced Practice Provider and was substantively involved in the patient's visit.This includes aspects of the HPI, MDM, diagnostic interpretations, and disposition/plan. I discussed the case with the KYLE and agree with the findings and plan as documented in KYLE Luis Armando's note.
--- NOTE | 2024-07-08 23:36 | CT Scan Report ---
Exam(s): CTA CHEST IV Amt: 119ml optiray 320 EXAM: CT Angiography Chest With Intravenous Contrast CLINICAL HISTORY: Reason for exam: PE. TECHNIQUE: Axial computed tomographic angiography images of the chest with intravenous contrast. CTDI is 9.5 mGy and DLP is 536.63 mGy-cm. Automated exposure control was utilized for the study. A dose lowering technique was utilized adhering to the principles of ALARA. MIP reconstructed images were created and reviewed. COMPARISON: No relevant prior studies available. FINDINGS: Pulmonary arteries: Unremarkable. No pulmonary embolism. Aorta: No acute findings. No thoracic aortic aneurysm. Lungs: Unremarkable. No mass. No consolidation. Pleural space: Unremarkable. No significant effusion. No pneumothorax. Heart: Unremarkable. No cardiomegaly. No significant pericardial effusion. No evidence of RV dysfunction. Bones/joints: No acute fracture. No dislocation. Old compression fracture of the T11 vertebral body. Soft tissues: Unremarkable. Lymph nodes: Unremarkable. No enlarged lymph nodes. IMPRESSION: No evidence of pulmonary emboli or acute cardiopulmonary process. Electronically signed by: Eric Mcghee MD 07/08/24 23:35 PM
[2024-07-08] MEDS: cefTRIAXone SODIUM 1,000 MG/50 ML BAG IV STA (23:43)
--- NOTE | 2024-07-08 23:44 | CT Scan Report ---
Exam(s): CT ABDOMEN + PELVIS With Contrast IV Amt: 119ml optiray 320 EXAM: CT Abdomen and Pelvis With Intravenous Contrast CLINICAL HISTORY: Reason for exam: pain. TECHNIQUE: Axial computed tomography images of the abdomen and pelvis with intravenous contrast. CTDI is 8.5 mGy and DLP is 536.63 mGy-cm. Automated exposure control was utilized for the study. A dose lowering technique was utilized adhering to the principles of ALARA. CONTRAST: Patient received 119ml optiray 320 of IV contrast COMPARISON: CT abdomen pelvis with contrast March 15, 2024. FINDINGS: ABDOMEN: Liver: Unremarkable. No mass. Gallbladder and bile ducts: Cholecystectomy. No ductal dilation. Pancreas: Unremarkable. No mass. No ductal dilation. Spleen: Unremarkable. No splenomegaly. Adrenals: Unremarkable. No mass. Kidneys and ureters: Unremarkable. No solid mass. No hydronephrosis. Stomach and bowel: Unremarkable. No obstruction. No mucosal thickening. PELVIS: Appendix: No findings to suggest acute appendicitis. Bladder: Unremarkable. No mass. ABDOMEN and PELVIS: Intraperitoneal space: Unremarkable. No free air. No significant fluid collection. Bones/joints: Thoracolumbar levoscoliosis. Old compression fracture of the T11 vertebral body. No acute bone abnormality. Soft tissues: Unremarkable. Vasculature: Abdominal aortic aneurysm measuring approximately 3.3 cm in diameter. Lymph nodes: Unremarkable. No enlarged lymph nodes. IMPRESSION: No acute findings in the abdomen or pelvis. 2.3 cm abdominal aortic aneurysm. Electronically signed by: Eric Mcghee MD 07/08/24 23:43 PM
[2024-07-08 23:51] LABS: Appearance Urine Cloudy (Clear); Bacteria Urine Automated 4+ (None Seen); Bilirubin Urine Negative (Negative); Blood Urine Negative (Negative); Cast Urine Automated 0-2 /lpf (0-2); Color Urine Yellow; Epithelial Cell Urine Auto 0-2 /hpf (0-2); Glucose Urine UA Negative (Negative); Ketones Urine Negative (Negative); Leukocyte Esterase Urine 3+ (Negative); Nitrite Urine Positive (Negative); Protein Urine 1+ (Negative); RBC Urine Automated >20 /hpf (0-2); Specific Gravity Urine 1.012 (1.000-1.030); Urobilinogen Urine Negative (Negative); WBC Urine Automated 21-50 /hpf (0-5)
--- NOTE | 2024-07-09 02:14 | History & Physical Report ---
Date of Service July 09, 2024 Assessment & Plan (1) Abnormal ECG: Plan: 74-year-old female with past medical history significant for chronic respiratory failure with hypoxia on 2 to 3 L oxygen at home, dyslipidemia, hypothyroidism, chronic nonspecific lung disease, COPD, hypertension, CAD status post stent, atrial fibrillation, tobacco use disorder, general anxiety disorder, generalized osteoarthritis, migraines, ambulatory dysfunction who lives at home with her daughter comes because of weakness and UTI. Patient says since last 1 week she is having burning micturition. Denies any blood in the urine. Also having a lot of diarrhea. Says stools are dark in color. Has some abdominal discomfort. Had low-grade temperature today. Lately also having some cough and shortness of breath. Denies any chest pain. Has mild headache now. Vision is okay. Has chronic runny nose. No sore throat. In March 2024 she was admitted for fall and found to have fracture of the distal end of left humerus and was transferred to [facility]. Patient had surgery at [place]. Patient states she has titanium valerie in her left elbow region. And since surgeries the elbow region is infected. She has a open wound there. Currently following with the orthopedics in [place] and says has appointment on July 13. Superficial wound cultures of the left elbow checked as outpatient by PCP on 07/05/2024 growing normal hans. Patient states she has rollator walker and cane and wheelchair at home and use them as needed. She states appetite is down. Says she lost several pounds of weight because of lack of appetite and not able to eat much because of abdominal discomfort. Abnormal EKG ST depression lateral leads Mild elevation of troponin initial 15 repeat 19 Has some shortness of breath. Denies chest pain. CTA chest no acute findings Will follow serial cardiac enzymes and echo and repeat EKG Telemetry Consult cardiology in a.m. for further recommendations Prolonged QTc QTc 572 Will hold trazodone and citalopram Replacing magnesium Avoid QT prolonging drugs Follow repeat EKG in a.m. Acute UTI Start on Rocephin Will follow cultures Abdominal discomfort CT scan no acute findings 2.3 cm abdominal arctic and rhythm Patient also complains significant weight loss Will do abdominal mesenteric artery ultrasound Needs follow-up Diarrhea Will follow stool studies Stool for Hemoccult Left elbow wound Since surgery for left distal humerus fracture in March 2024 Following with orthopedics Recent cultures normal hans Currently on Rocephin Wound care consult followup with ortho Chronic respiratory failure On home oxygen COPD Nonspecific lung disease Continue home inhalers and nebs as needed History of CAD s/p stents On statin, Coreg, Plavix A-fib On Coreg and Eliquis Hypertension On Coreg, losartan and Lasix with potassium supplement Will monitor Hypothyroidism On Synthyroid TSH is okay GERD On Protonix Hyperlipidemia On statin Tobacco use Needs counseling Generalized anxiety disorder On citalopram and trazodone Currently holding for prolonged QTc DVT prophylaxis On Eliquis Disposition Med/telemetry Full code. History of Present Illness Chief Complaint: Weakness and UTI Primary Care Provider: Ronald Cortes MD 74-year-old female with past medical history significant for chronic respiratory failure with hypoxia on 2 to 3 L oxygen at home, dyslipidemia, hypothyroidism, chronic nonspecific lung disease, COPD, hypertension, CAD status post stent, atrial fibrillation, tobacco use disorder, general anxiety disorder, generalized osteoarthritis, migraines, ambulatory dysfunction who lives at home with her daughter comes because of weakness and UTI. Patient says since last 1 week she is having burning micturition. Denies any blood in the urine. Also having a lot of diarrhea. Says stools are dark in color. Has some abdominal discomfort. Had low-grade temperature today. Lately also having some cough and shortness of breath. Denies any chest pain. Has mild headache now. Vision is okay. Has chronic runny nose. No sore throat. In March 2024 she was admitted for fall and found to have fracture of the distal end of left humerus and was transferred to [facility]. Patient had surgery at [place]. Patient states she has titanium valerie in her left elbow region. And since surgeries the elbow region is infected. She has a open wound there. Currently following with the orthopedics in [place] and says has appointment on July 13. Superficial wound cultures of the left elbow checked as outpatient by PCP on 07/05/2024 growing normal hans. Patient states she has rollator walker and cane and wheelchair at home and use them as needed. She states appetite is down. Says she lost several pounds of weight because of lack of appetite and not able to eat much because of abdominal discomfort. Past medical history. As mentioned above Past surgical history. Bone marrow aspiration. Colonoscopy. Exploration of abdomen. Ligation oviducts. Appendectomy. Cholecystectomy. Left repair of ruptured rotator cuff. Sigmoidoscopy with biopsy. Social history. . Smoked 0.6 pack a day for 70 years. No alcohol use. No drug use. Family history. Mother had diabetes. A-fib. Hypertension. Stroke. Aunt had breast cancer. Paternal grandfather had lung cancer. Father had diabetes. Brain cancer. Allergies Allergy/AdvReac Type Severity Reaction Status Date / Time bee venom protein (honey bee) Allergy Severe SWELLING Verified 01/30/24 16:12 SEVERE doxycycline Allergy Intermediate Vomiting Verified 01/30/24 16:12 Home Medications Medication Instructions Recorded Confirmed Type multivitamin 1 tab PO DAILY #0 tabs 02/07/14 07/09/24 History omega 7-sjp-sdm-fish oil 1,000 mg 1 cap PO DAILY #0 caps 04/22/17 07/09/24 History (120 mg-180 mg) capsule (Fish Oil) magnesium oxide 400 mg PO BID #0 tabs 06/01/17 07/09/24 History apixaban 5 mg tablet (Eliquis) 5 mg PO BID 12/06/23 07/09/24 History atorvastatin 40 mg tablet 40 mg PO QAM 12/06/23 07/09/24 History citalopram 40 mg tablet 40 mg PO QAM 12/06/23 07/09/24 History clopidogrel 75 mg tablet 75 mg PO QAM 12/06/23 07/09/24 History fluticasone propionate 115 2 puff inhalation AMHS 12/06/23 07/09/24 History mcg-salmeterol 21 mcg/actuation HFA inhaler gabapentin 300 mg capsule 300 mg PO BID 12/06/23 07/09/24 History levothyroxine 25 mcg tablet 25 mcg PO DAILYBB 12/06/23 07/09/24 History oxybutynin chloride 5 mg 5 mg PO QAM 12/06/23 07/09/24 History tablet,extended release 24 hr potassium chloride 10 mEq 10 meq PO AMHS 12/06/23 07/09/24 History tablet,extended release(part/cryst) (Klor-Con M) nitroglycerin 0.4 mg sublingual 0.4 mg sublingual Q5M PRN chest 12/09/23 07/09/24 Rx tablet (Nitrostat) pain #30 tabs umeclidinium 62.5 mcg/actuation 1 inh inhalation DAILY #30 ea 12/14/23 07/09/24 Rx blister powder for inhalation (Incruse Ellipta) ipratropium 0.5 mg-albuterol 3 mg 3 ml NEB QIDR PRN shortness of 12/28/23 07/09/24 Rx (2.5 mg base)/3 mL nebulization breath #90 mL soln albuterol sulfate 90 mcg/actuation 2 puff inhalation Q4 PRN WHEEZING 01/30/24 07/09/24 History aerosol inhaler OR COUGH pantoprazole 40 mg tablet,delayed 40 mg PO QAM 01/30/24 07/09/24 History release (Protonix) tiotropium bromide 18 mcg capsule 1 cap inhalation QAM 03/02/24 07/09/24 History with inhalation device alendronate 70 mg tablet 70 mg PO WK 03/15/24 07/09/24 History cholecalciferol (vitamin D3) 50 50 mcg PO DAILY 03/24/24 07/09/24 History mcg (2,000 unit) tablet (Vitamin D3) furosemide 40 mg tablet 20 mg PO QAM 03/24/24 07/09/24 History carvedilol 6.25 mg tablet 6.25 mg PO BID #60 tabs 04/01/24 07/09/24 Rx losartan 50 mg tablet 100 mg (2 x 50 mg) PO QAM #30 tabs 04/01/24 07/09/24 Rx oxycodone 5 mg tablet 5 mg PO Q4H PRN pain #15 tabs 04/01/24 07/09/24 Rx trazodone 50 mg tablet 50 - 100 mg PO HS 07/09/24 07/09/24 History Past Med/Surg History Problem List (Updated 07/09/24 @ 03:07 by Background Daemon) Hypomagnesemia (Acute) Cellulitis of arm, left (Acute) Weakness (Acute) Elevated troponin (Acute) Abnormal ECG (Acute) Acute UTI (Acute) S/P ORIF (open reduction internal fixation) fracture Acute blood loss anemia Chronic anemia Hypomagnesemia Left humeral fracture Contusion of left knee Asymptomatic hypertensive urgency Acute pain of left knee (Acute) Anticoagulant long-term use (Acute) Contusion of face (Acute) Fracture of distal end of left humerus (Acute) Fall (Acute) Acute on chronic anemia E. coli UTI Acute dehydration (Acute) COPD (chronic obstructive pulmonary disease) (Acute) GUTIERREZ (acute kidney injury) (Acute) COPD (chronic obstructive pulmonary disease) (Acute) Acute and chronic postprocedural respiratory failure (Acute) COPD with exacerbation Acute on chronic respiratory failure with hypoxia and hypercapnia (Acute) COPD (chronic obstructive pulmonary disease) (Acute) Dyslipidemia, goal LDL below 70 PAF (paroxysmal atrial fibrillation) Uncontrolled hypertension ASCVD (arteriosclerotic cardiovascular disease) Chest pain at rest Thickened endometrium Elevated brain natriuretic peptide (BNP) level (Acute) Nausea & vomiting (Acute) Chest pain (Acute) Asthma exacerbation (Acute) Gastroenteritis (Acute) Fall in home (Acute) CHI (closed head injury) (Acute) Scalp laceration (Acute) Facial laceration (Acute) Heart disease HTN (hypertension) Kidney disease Bronchitis Fall in home (Acute) Hyponatremia (Acute) Hypokalemia (Acute) Abdominal pain Diarrhea Vomiting Medical History Absent pedal pulses Macular degeneration Asthma Tobacco use disorder Coronary atherosclerosis of [place] coronary vessel Benign hypertension Atrial fibrillation Diabetes Surgical History H/O heart surgery History of cholecystectomy Hx of tubal ligation Social History Smoking Status: Current every day smoker Tobacco Type: Cigarettes Cigarettes Per Day: 5; Second Hand Exposure: No; Do You Dip or Chew Tobacco: No; Hx Alcohol Use: No Hx Substance Use: No Preferred Language: Finnish Communication Ability: Effective Engineering Program Analyst Required: No Beliefs That Will Affect Care: None Current Living Situation: Family Current Living Situation Comment: with daughter Feels Safe at Home: Yes Safety Concerns: Feels Safe At This Time Assistive Devices: Cane, Oxygen - Continuous, Walker and Wheelchair Review of Systems Review of Systems: All systems reviewed & are unremarkable except as noted in HPI & below Physical Exam Physical Exam: General- Not in distress Head- atraumatic Eyes- PERRL. ENT- oropharynx clear Neck- supple, no JVD. Lungs- clear to auscultation no wheezing or crackles Heart- regular rhythm; no murmur, no gallop. Abdomen- normal bowel sounds, soft, nontender, no distension Extremities- no pretibial edema, open superficial wound seen at left elbow region Neuro- alert, oriented PERRL, no facial palsy; no dysarthria; moves extremities Results & Data Results & Data Vital Signs (Past 12 Hours) Vital Signs Temp Pulse Pulse Resp BP BP Pulse Ox 07/09/24 01:18 83 16 137/80 100 07/09/24 00:13 81 07/09/24 00:00 84 20 143/81 H 100 07/08/24 22:00 86 20 137/100 100 07/08/24 20:24 100 H 07/08/24 20:01 36.7 C 94 H 22 156/113 H 100 O2 Del Method O2 Flow Rate 07/09/24 01:18 Nasal Cannula 2 07/09/24 00:13 07/09/24 00:00 Nasal Cannula 2 07/08/24 22:00 Nasal Cannula 2 07/08/24 20:24 07/08/24 20:01 Nasal Cannula 2 Diagnostic Findings Laboratory Results WBC 9.79 K/ul (4.8-10.8) 07/08/24 18:26 RBC 4.34 M/uL (4.20-5.40) 07/08/24 18:26 Hgb 12.4 g/dl (12.0-16.0) 07/08/24 18:26 Hct 38.8 % (37.0-47.0) 07/08/24 18:26 MCV 89.4 fL (80.0-100.0) 07/08/24 18:26 MCH 28.6 pg (25.0-34.0) 07/08/24 18: MCHC 32.0 g/dL (32.0-36.0) 07/08/24 18:26 RDW Std Deviation 48.8 fL (36.4-46.3) H 07/08/24 18:26 RDW Coeff of Chet 14.9 % (11.5-14.5) H 07/08/24 18:26 Plt Count 504 K/uL (130-400) H 07/08/24 18:26 MPV 8.7 fL (9.4-12.4) L 07/08/24 18:26 Immature Gran % (Auto) 0.4 % 07/08/24 18:26 Neut % (Auto) 74.2 % 07/08/24 18:26 Lymph % (Auto) 18.7 % 07/08/24 18:26 Mclean % (Auto) 5.7 % 07/08/24 18:26 Eos % (Auto) 0.6 % 07/08/24 18:26 Baso % (Auto) 0.4 % 07/08/24 18:26 Neut # (Auto) 7.26 K/uL (1.40-6.50) H 07/08/24 18:26 Lymph # (Auto) 1.83 K/uL (1.20-3.40) 07/08/24 18:26 Mclean # (Auto) 0.56 K/uL (0.11-0.59) 07/08/24 18:26 Eos # (Auto) 0.06 K/uL (0.00-0.50) 07/08/24 18:26 Baso # (Auto) 0.04 K/uL (0.00-0.20) 07/08/24 18: Immature Gran # (Auto) 0.04 K/uL (0.01-0.20) 07/08/24 18:26 Sodium 139 mmol/L (136-145) 07/08/24 18:26 Potassium 4.3 mmol/L (3.5-5.1) 07/08/24 18:26 Chloride 97 mmol/L (98-107) L 07/08/24 18:26 Carbon Dioxide 36 mmol/L (21-32) H 07/08/24 18:26 Anion Gap 6 (3-11) 07/08/24 18: BUN 10 mg/dl (6-23) 07/08/24 18: Creatinine 0.82 mg/dl (0.6-1.2) 07/08/24 18:26 Est Cr Clr Drug Dosing 41.7 ml/min 07/08/24 18:26 eGFR 74.55 07/08/24 18: BUN/Creatinine Ratio 12.2 (10-20) 07/08/24 18:26 Glucose 129 mg/dl (70-99(Fasting)) H 07/08/24 18:26 Calcium 9.8 mg/dl (8.6-10.3) 07/08/24 18:26 Magnesium 1.6 mg/dl (1.7-2.4) L 07/08/24 18:26 Total Bilirubin 0.4 mg/dl (0.2-1.0) 07/08/24 18:26 AST 16 U/L (13-39) 07/08/24 18:26 ALT 5 U/L (7-52) L 07/08/24 18:26 Alkaline Phosphatase 120 U/L (34-104) H 07/08/24 18:26 Troponin I High Sens 19.0 pg/ml (0-14) H 07/08/24 22:39 Total Protein 7.8 gm/dl (6.0-8.3) 07/08/24 18:26 Albumin 3.3 gm/dl (3.4-5.0) L 07/08/24 18:26 Globulin 4.5 gm/dl (2.5-4.0) H 07/08/24 18: Albumin/Globulin Ratio 0.7 (0.9-2) L 07/08/24 18:26 TSH 1.836 uIu/ml (0.300-4.500) 07/08/24 18:26 Urine Color Yellow 07/08/24 23:26 Urine Appearance Cloudy (Clear) A 07/08/24 23: Urine pH 7.0 (4.5-7.5) 07/08/24 23:26 Ur Specific [place] 1.012 (1.000-1.030) 07/08/24 23:26 Urine Protein 1+ (Negative) H 07/08/24 23:26 Urine Glucose (UA) Negative (Negative) 07/08/24 23: Urine Ketones Negative (Negative) 07/08/24 23: Urine Blood Negative (Negative) 07/08/24 23:26 Urine Nitrite Positive (Negative) A 07/08/24 23:26 Urine Bilirubin Negative (Negative) 07/08/24 23: Urine Urobilinogen Negative (Negative) 07/08/24 23:26 Ur Leukocyte Esterase 3+ (Negative) H 07/08/24 23:26 Urine WBC (Auto) 21-50 /hpf (0-5) H 07/08/24 23:26 Urine RBC (Auto) >20 /hpf (0-2) H 07/08/24 23:26 U Hyaline Cast (Auto) 0-2 /lpf (0-2) 07/08/24 23:26 U Epithel Cells (Auto) 0-2 /hpf (0-2) 07/08/24 23:26 Urine Bacteria (Auto) 4+ (None Seen) H 07/08/24 23:26 Impressions Chest X-Ray 07/08/24 20:47 Exam(s): XR CXR 1 VIEW EXAM: XR Chest, 1 View CLINICAL HISTORY: Shortness of breath. TECHNIQUE: Frontal view of the chest. COMPARISON: Chest radiograph 03/25/2024 FINDINGS: Lungs: Emphysema. No consolidation. Pleural space: Unremarkable. No pneumothorax. Heart: Unremarkable. No cardiomegaly. Mediastinum: Unremarkable. Normal mediastinal contour. Bones/joints: There are degenerative changes of the spine. No acute fracture. IMPRESSION: No acute findings in the chest. Electronically signed by: Gardenia Zheng MD 07/08/24 23:13 PM Abdomen/Pelvis CT 07/08/24 21:40 Exam(s): CT ABDOMEN + PELVIS With Contrast IV Amt: 119ml optiray 320 EXAM: CT Abdomen and Pelvis With Intravenous Contrast CLINICAL HISTORY: Reason for exam: pain. TECHNIQUE: Axial computed tomography images of the abdomen and pelvis with intravenous contrast. CTDI is 8.5 mGy and DLP is 536.63 mGy-cm. Automated exposure control was utilized for the study. A dose lowering technique was utilized adhering to the principles of ALARA. CONTRAST: Patient received 119ml optiray 320 of IV contrast COMPARISON: CT abdomen pelvis with contrast March 15, 2024. FINDINGS: ABDOMEN: Liver: Unremarkable. No mass. Gallbladder and bile ducts: Cholecystectomy. No ductal dilation. Pancreas: Unremarkable. No mass. No ductal dilation. Spleen: Unremarkable. No splenomegaly. Adrenals: Unremarkable. No mass. Kidneys and ureters: Unremarkable. No solid mass. No hydronephrosis. Stomach and bowel: Unremarkable. No obstruction. No mucosal thickening. PELVIS: Appendix: No findings to suggest acute appendicitis. Bladder: Unremarkable. No mass. ABDOMEN and PELVIS: Intraperitoneal space: Unremarkable. No free air. No significant fluid collection. Bones/joints: Thoracolumbar levoscoliosis. Old compression fracture of the T11 vertebral body. No acute bone abnormality. Soft tissues: Unremarkable. Vasculature: Abdominal aortic aneurysm measuring approximately 3.3 cm in diameter. Lymph nodes: Unremarkable. No enlarged lymph nodes. IMPRESSION: No acute findings in the abdomen or pelvis. 2.3 cm abdominal aortic aneurysm. Electronically signed by: Eric Mcghee MD 07/08/24 23:43 PM Chest CTA 07/08/24 21:40 Exam(s): CTA CHEST IV Amt: 119ml optiray 320 EXAM: CT Angiography Chest With Intravenous Contrast CLINICAL HISTORY: Reason for exam: PE. TECHNIQUE: Axial computed tomographic angiography images of the chest with intravenous contrast. CTDI is 9.5 mGy and DLP is 536.63 mGy-cm. Automated exposure control was utilized for the study. A dose lowering technique was utilized adhering to the principles of ALARA. MIP reconstructed images were created and reviewed. COMPARISON: No relevant prior studies available. FINDINGS: Pulmonary arteries: Unremarkable. No pulmonary embolism. Aorta: No acute findings. No thoracic aortic aneurysm. Lungs: Unremarkable. No mass. No consolidation. Pleural space: Unremarkable. No significant effusion. No pneumothorax. Heart: Unremarkable. No cardiomegaly. No significant pericardial effusion. No evidence of RV dysfunction. Bones/joints: No acute fracture. No dislocation. Old compression fracture of the T11 vertebral body. Soft tissues: Unremarkable. Lymph nodes: Unremarkable. No enlarged lymph nodes. IMPRESSION: No evidence of pulmonary emboli or acute cardiopulmonary process. Electronically signed by: Eric Mcghee MD 07/08/24 23:35 PM ECG Additional Comments: ECG. Normal sinus rhythm rate of 78. ST depressions in lateral leads. QTc 572. Code Status & VTE Plan VTE Prophylaxis Plan VTE Prophylaxis will be ordered: Yes
[2024-07-09] MEDS ORDERED: PROMETHAZINE 6.25 MG/50.25 ML BAG IV PRN (03:28)
[2024-07-09] MEDS ORDERED: ALBUTEROL HFA 8 GM INHALER INH PRN (03:28)
[2024-07-09] MEDS ORDERED: NITROGLYCERIN SL 0.4 MG/TAB TAB SL PRN (03:28)
[2024-07-09] MEDS ORDERED: ALBUT/IPRATROP 3MG/0.5MG NEB 3 ML VIAL NEB PRN (03:28)
[2024-07-09] MEDS: SODIUM CHLORIDE 0.9% 1,000 ML IV SCH (04:07)
[2024-07-09] MEDS: LEVOTHYROXINE SODIUM 25 MCG TABLET PO SCH (05:54)
[2024-07-09 06:03] LABS: BUN Creatinine Ratio 12.7 (10-20); Creatinine Clr Calc Pharmacy 52.1 ml/min; Magnesium 2.2 mg/dl (1.7-2.4); Troponin I High Sensitivity 22.1 pg/ml (0-14)
[2024-07-09 06:30] LABS: Basophils # (auto) 0.06 K/uL (0.00-0.20); Basophils % (auto) 0.7 %; Eosinophils # (auto) 0.22 K/uL (0.00-0.50); Eosinophils % (auto) 2.4 %; Hematocrit (blood only) 29.6 % (37.0-47.0); Hemoglobin 9.3 g/dl (12.0-16.0); Immature Granulocytes # (auto) 0.04 K/uL (0.01-0.20); Immature Granulocytes % (auto) 0.4 %; Lymphocytes # (auto) 2.71 K/uL (1.20-3.40); Lymphocytes % (auto) 29.4 %; Mean Corpuscular Hemoglobin 28.2 pg (25.0-34.0); Mean Corpuscular Hgb Conc 31.4 g/dL (32.0-36.0); Mean Corpuscular Volume 89.7 fL (80.0-100.0); Mean Platelet Volume 8.6 fL (9.4-12.4); Monocytes # (auto) 0.76 K/uL (0.11-0.59); Monocytes % (auto) 8.2 %; Neutrophils # (auto) 5.43 K/uL (1.40-6.50); Neutrophils % (auto) 58.9 %; Platelet Count 332 K/uL (130-400); RDW Standard Deviation 49.1 fL (36.4-46.3); White Blood Count 9.22 K/ul (4.8-10.8)
--- NOTE | 2024-07-09 07:53 | Cardiology Consultation ---
Date of Consultation July 09, 2024 History of Present Illness Reason for Consultation: Abnormal EKG Requesting Physician: [facility] Hospitalist Attending Physician: Jarred Quiñonez MD History of Present Illness HPI: Patient is a 74 year old female with PMHx of CAD (Inferolateral STEMI Feb 2023 s/p PCI with RADU x2 to RCA), P. Atrial fibrillation, HTN, Dyslipidemia, COPD, tobacco use, on chronic O2 therapy 2-3LPM, OA, and ambulatory dysfunction that presents to the ER due to weakness, dysuria and "dark diarrhea" x 1 week. O f note, patient was hospitalized at [facility] March 2024 s/t a fall and subsequent left humerus distal end fracture requiring surgical intervention. Patient has an open wound/infection to that elbow region. EKG on admission NSR, prior septal infarct, Prolonged QT 572ms, Marked deep T wave inversions noted on V3-V6 as well as inversions in inferior leads. When compared with last several EKG studies appear unchanged. Chest xray negative CT Chest negative CT Abd/Pelvis: IMPRESSION: No acute findings in the abdomen or pelvis. 2.3 cm abdominal aortic aneurysm. Serum K 3.0 being supplemented HST: 15.7/19.0/22.1 UA abnormal/culture pending For echocardiogram today Allergies Allergy/AdvReac Type Severity Reaction Status Date / Time bee venom protein (honey bee) Allergy Severe SWELLING Verified 01/30/24 16:12 SEVERE doxycycline Allergy Intermediate Vomiting Verified 01/30/24 16:12 Home Medications Medication Instructions Recorded Confirmed Type multivitamin 1 tab PO DAILY #0 tabs 02/07/14 07/09/24 History omega 1-bhb-oro-fish oil 1,000 mg 1 cap PO DAILY #0 caps 04/22/17 07/09/24 History (120 mg-180 mg) capsule (Fish Oil) magnesium oxide 400 mg PO BID #0 tabs 06/01/17 07/09/24 History apixaban 5 mg tablet (Eliquis) 5 mg PO BID 12/06/23 07/09/24 History atorvastatin 40 mg tablet 40 mg PO QAM 12/06/23 07/09/24 History citalopram 40 mg tablet 40 mg PO QAM 12/06/23 07/09/24 History clopidogrel 75 mg tablet 75 mg PO QAM 12/06/23 07/09/24 History fluticasone propionate 115 2 puff inhalation AMHS 12/06/23 07/09/24 History mcg-salmeterol 21 mcg/actuation HFA inhaler gabapentin 300 mg capsule 300 mg PO BID 12/06/23 07/09/24 History levothyroxine 25 mcg tablet 25 mcg PO DAILYBB 12/06/23 07/09/24 History oxybutynin chloride 5 mg 5 mg PO QAM 12/06/23 07/09/24 History tablet,extended release 24 hr potassium chloride 10 mEq 10 meq PO AMHS 12/06/23 07/09/24 History tablet,extended release(part/cryst) (Klor-Con M) nitroglycerin 0.4 mg sublingual 0.4 mg sublingual Q5M PRN chest 12/09/23 07/09/24 Rx tablet (Nitrostat) pain #30 tabs umeclidinium 62.5 mcg/actuation 1 inh inhalation DAILY #30 ea 12/14/23 07/09/24 Rx blister powder for inhalation (Incruse Ellipta) ipratropium 0.5 mg-albuterol 3 mg 3 ml NEB QIDR PRN shortness of 12/28/23 07/09/24 Rx (2.5 mg base)/3 mL nebulization breath #90 mL soln albuterol sulfate 90 mcg/actuation 2 puff inhalation Q4 PRN WHEEZING 01/30/24 07/09/24 History aerosol inhaler OR COUGH pantoprazole 40 mg tablet,delayed 40 mg PO QAM 01/30/24 07/09/24 History release (Protonix) tiotropium bromide 18 mcg capsule 1 cap inhalation QAM 03/02/24 07/09/24 History with inhalation device alendronate 70 mg tablet 70 mg PO WK 03/15/24 07/09/24 History cholecalciferol (vitamin D3) 50 50 mcg PO DAILY 03/24/24 07/09/24 History mcg (2,000 unit) tablet (Vitamin D3) furosemide 40 mg tablet 20 mg PO QAM 03/24/24 07/09/24 History carvedilol 6.25 mg tablet 6.25 mg PO BID #60 tabs 04/01/24 07/09/24 Rx losartan 50 mg tablet 100 mg (2 x 50 mg) PO QAM #30 tabs 04/01/24 07/09/24 Rx oxycodone 5 mg tablet 5 mg PO Q4H PRN pain #15 tabs 04/01/24 07/09/24 Rx trazodone 50 mg tablet 50 - 100 mg PO HS 07/09/24 07/09/24 History Patient History Medical History Absent pedal pulses Macular degeneration Asthma Tobacco use disorder Coronary atherosclerosis of [place] coronary vessel Benign hypertension Atrial fibrillation Diabetes Surgical History H/O heart surgery History of cholecystectomy Hx of tubal ligation Social History Smoking Status: Current every day smoker Tobacco Type: Cigarettes Cigarettes Per Day: 5; Second Hand Exposure: No; Do You Dip or Chew Tobacco: No; Hx Alcohol Use: No Hx Substance Use: No Preferred Language: Comoran Communication Ability: Effective Branch Service Associate Required: No Beliefs That Will Affect Care: None Current Living Situation: Family Current Living Situation Comment: with daughter Feels Safe at Home: Yes Safety Concerns: Feels Safe At This Time Assistive Devices: Cane, Oxygen - Continuous, Walker and Wheelchair Results & Data Vital Signs (Past 12 Hours) Vital Signs Temp Pulse Pulse Resp BP BP Pulse Ox 07/09/24 04:08 07/09/24 04:08 36.3 C L 86 20 139/77 97 07/09/24 03:28 36.3 C L 86 20 139/77 97 07/09/24 03:25 74 07/09/24 02:41 77 20 153/105 H 100 07/09/24 01:59 81 16 155/92 H 100 07/09/24 01:18 83 16 137/80 100 07/09/24 00:13 81 07/09/24 00:00 84 20 143/81 H 100 07/08/24 22:00 86 20 137/100 100 07/08/24 20:24 100 H 07/08/24 20:01 36.7 C 94 H 22 156/113 H 100 O2 Del Method O2 Flow Rate 07/09/24 04:08 Nasal Cannula 2 07/09/24 04:08 Nasal Cannula 2 07/09/24 03:28 Nasal Cannula 2 07/09/24 03:25 07/09/24 02:41 Nasal Cannula 2 07/09/24 01:59 Nasal Cannula 2 07/09/24 01:18 Nasal Cannula 2 07/09/24 00:13 07/09/24 00:00 Nasal Cannula 2 07/08/24 22:00 Nasal Cannula 2 07/08/24 20:24 07/08/24 20:01 Nasal Cannula 2
[2024-07-09] MEDS ORDERED: PHENAZOPYRIDINE HCL 200 MG TAB PO PRN (08:02)
[2024-07-09] MEDS: FUROSEMIDE 20 MG TAB PO SCH (08:12)
[2024-07-09] MEDS: oxyCODONE HCL IR 5 MG TAB (IMMEDIATE RELEASE) PO PRN (08:19)
[2024-07-09] MEDS: POTASSIUM CHLORIDE / WTR 10 MEQ/100 ML PLCT IV ONE (08:20)
[2024-07-09] MEDS: SODIUM CHLORIDE 0.9% 500 ML IV ONE (08:26)
[2024-07-09 08:29] VITALS: RESP 16
[2024-07-09] MEDS: APIXABAN 5 MG TABLET PO SCH (08:32)
[2024-07-09] MEDS: POTASSIUM CHLORIDE CRTAB 20 MEQ TABCR PO STA (08:32)
[2024-07-09] MEDS: ATORVASTATIN 40 MG TAB PO SCH (08:32)
[2024-07-09] MEDS: FLUTICASONE/VILANTEROL 200/25MCG 14 PUFFS/INHALER INH SCH (08:33)
[2024-07-09] MEDS: LOSARTAN POTASSIUM 50 MG TAB PO SCH (08:33)
[2024-07-09] MEDS: CHOLECALCIFEROL 25 MCG (1000 UNITS) TAB PO SCH (08:33)
[2024-07-09] MEDS: GABAPENTIN 300 MG CAP PO SCH (08:33)
[2024-07-09] MEDS: CLOPIDOGREL BISULFATE 75 MG TAB PO SCH (08:33)
[2024-07-09] MEDS: carvediloL 6.25 MG TAB PO SCH (08:33)
[2024-07-09] MEDS: UMECLIDINIUM BROMIDE 62.5MCG/BLISTER 7 PUFFS/INHALER INH SCH (08:34)
[2024-07-09] MEDS: PANTOprazole 40 MG TAB PO SCH (08:34)
[2024-07-09] MEDS: MULTIVITAMIN TAB PO SCH (08:34)
[2024-07-09] MEDS: MAGNESIUM OXIDE 400 MG TAB PO SCH (08:34)
[2024-07-09] MEDS: POTASSIUM CHLORIDE 10 MEQ TABCR PO SCH (08:34)
[2024-07-09] MEDS: OXYBUTYNIN CHLORIDE XL 5 MG TABCR PO SCH (08:34)
[2024-07-09] MEDS: ACETAMINOPHEN 325 MG TAB PO PRN (08:39)
[2024-07-09] MEDS ORDERED: UMECLIDINIUM BROMIDE 62.5MCG/BLISTER 7 PUFFS/INHALER INH SCH (09:00)
--- NOTE | 2024-07-09 09:40 | Ultrasound Report ---
HISTORY: Loss of appetite. Weight loss. TECHNIQUE: Color and spectral Doppler evaluation of the superior mesenteric artery. COMPARISON: None. FINDINGS: Evaluation is limited by bowel gas shadowing. The abdominal aorta is color Doppler patent with peak systolic velocity of 38 cm/s. Aorta is dilated measuring 3.2 cm in diameter. Celiac artery is patent with peak systolic velocity of 57.1 cm/s. Proximal superior mesenteric artery is patent with peak systolic velocity 117 cm/s. The mid superior mesenteric artery has a peak systolic velocity 158 cm/s. Mild atherosclerotic vascular disease. IMPRESSION: * No evidence of hemodynamically significant superior mesenteric artery stenosis. * Proximal aorta is mildly dilated measuring up to 3.2 cm in diameter. Consider further evaluation with dedicated aorta ultrasound. * Mild atherosclerotic vascular disease. Electronically signed by Yasmany Alvarez 07-09-2024 09:39 AM
[2024-07-09 10:14] VITALS: PULSE 71
--- OUTSIDE RECORDS SUMMARY | 2024-07-09 10:30 | External Medical Summary | Summary of Care ---
Author Name Unknown Organization [facility] Address [address] [place] [address] Phone [phone] Care Team Providers Care Digital Asset Specialist Name Role Phone Ronald Cortes MD Primary Care Provider [phone] Encounter Details Date Type Department Care Team (Late st Contact Info) Description 07/08/[address] [facility] [place] [facility] [address] [place] [id number] Marcelino Prado MD [address] [facility] [place] [id number] Wound infection* Allergies Active Allergy Reactions Criticality Noted Date Comments Bee Venom Anaphylaxis High 02/27/2006 Doxycycline Low 08/04/2023 Intolerant, GI upset documented as of this encounter (statuses as of 07/08/2024) Medications CALCIUM + D 600-200 MG-UNIT PO TABS 1 BID 0 03/13/20 06 Active MULTIVITAMINS PO TABS daily 0 03/13/20 06 Active ACETAMINOPHEN 325 MG PO TABSIndications:IN TERFACED RESULT,Pneumothora x 2 Tab Oral Every 6 hours as needed for fever, pain, headache 1 Tab 0 07/28/19 14 Active [place]-3 Fatty Acids (FISH OIL) 1000 MG Capsule 1 Capsule in the morning. Active TO GO ondansetron ODT (ZOFRAN ODT) 4 MG Orally Disintegrated TabletIndications: Nonspecific colitis 1 tab every 8 hrs as needed for nausea 30 Each 3 07/12/19 20 Active Additional Information Patient not taking.Reported on 07/05/2024 Magnesium Oxide 400 MG Oral TabletIndications: Hypomagnesemia Take 1 Tablet by mouth in the morning. 90 Tablet 07/30/19 23 Active Estradiol 0.1 MG/GM Vaginal Cream (Estrace) Apply pea sized amount (0.5 gm) vaginally twice a week at bedtime 42.5 g 3 11/26/19 23 Active Econazole Nitrate 1 % External Cream (Spectazole)Indica [...] a day. To affected area. 80 g 07/02/19 24 Active Clotrimazole 1 % External Cream (Lotrimin)Indicati ons:Candidal intertrigo Apply topically to affected area 2 times a day. Apply to area under breast twice daily until resolved 85 g 3 07/02/19 24 Active Gabapentin 300 MG Oral Capsule (Neurontin)Indicat ions:Post-traumati c arthrosis of multiple joints TAKE 1 CAPSULE THREE TIMES DAILY 270 Capsule 08/05/19 24 Active Potassium Chloride Unique ER 10 MEQ Oral Tablet Extended Release Take 1 Tablet by mouth in the morning and 1 Tablet before bedtime. 180 Tablet 08/05/19 24 Active Alendronate Sodium 70 MG Oral Tablet (Fosamax)Indicatio ns:Other osteoporosis without current pathological fracture,Dyslipide amita, goal LDL below 100 TAKE 1 TABLET EVERY WEEK DIRECTED , SEE PACKAGE FOR ADDITIONAL INSTRUCTIONS 12 Tablet 08/05/19 24 Active Levothyroxine Sodium 25 MCG Oral Tablet (Levoxyl)Indicatio ns:Acquired hypothyroidism Take 1 Tablet by mouth in the morning. (at least 30 min prior to breakfast or other meds). 90 Tablet 08/05/19 24 Active Omeprazole 20 MG Oral [...] Patient taking differently: 1 PuffInhalationPRN, Reported on 07/05/2024 Citalopram Hydrobromide 40 MG Oral Tablet (CeleXA) [...] MCG/ACT Inhalation Aerosol Powder Breath Activated 12/14/19 24 Active Pantoprazole Sodium 40 MG Oral Tablet Delayed Release (Protonix)Indicati ons:Gastroesophage al reflux disease, unspecified whether esophagitis present Take 1 Tablet by mouth in the morning. 90 Tablet 3 02/03/20 24 Active Albuterol Sulfate HFA 108 (90 Base) MCG/ACT Inhalation Aerosol Solution Inhale 2 Puffs by mouth every 4 hours as needed for Wheezing or Cough. 54 g 3 02/08/20 24 Active Tiotropium [place] Monohydrate 18 MCG Inhalation Capsule (Spiriva HandiHaler) Inhale 1 Capsule by mouth in the morning. INHALE THE CONTENTS OF 1 CAPSULE EVERY DAY VIA HANDIHALER (DO NOT SWALLOW). 90 Capsule 3 02/08/20 24 Active Carvedilol 3.125 MG Oral Tablet (Coreg) Take 1 Tablet by mouth 2 times a day with morning and evening meals. 03/08/20 24 Active Losartan Potassium 25 MG Oral Tablet (Cozaar) Take 1 Tablet by mouth in the morning. 03/08/20 24 Active traZODone HCl 50 MG Oral Tablet (Desyrel)Indicatio ns:Sleep disorder TAKE 1 TO 2 TABLETS BEFORE BEDTIME. 180 Tablet 1 05/23/19 25 Active Sulfamethoxazole-T rimethoprim 800-160 MG Oral Tablet (Bactrim DS) Take 1 Tablet by mouth in the morning and 1 Tablet before bedtime. Do all this for 10 days. Until gone.. 20 Tablet 07/06/19 25 025 Active Hospital, Clinic, or Other Facility Administered [...] as of this encounter (statuses as of 07/08/2024) Active Problems Problem Noted Date Diagnosed Date History of atrial fibrillation 02/08/2024 Gait difficulty 02/08/2024 Chronic respiratory failure with hypoxia 024 COPD, group B, by GOLD 2017 classification 09/20 Overview: Per COPD GOLD Classification Acquired hypothyroidism 07/19/2023 History of coronary angioplasty with insertion o f stent 07/01/2023 Coronary artery disease invo lving [place] coronary artery of [place] heart without angina pectoris 07/01/2023 Hematuria of undiagnosed cause 07/12/2019 Tobacco use disorder 12/21/2017 Chronic nonspecific lung disease 06/16/2017 HTN, goal below 150/90 11/16/2015 Osteoporosis 12/28/2014 Dyslipidemia, goal LDL below 100 06/10/2010 Generalized osteoarthritis of multiple sites 02/2011 GENERALIZED ANXIETY DIS 12/05/2004 COMMON MIGRAINE WITHOUT MENTION OF INTRACTABLE M IGRAINE documented as of this encounter (statuses as of 07/08/2024) Resolved Problems Problem Noted Date Diagnosed Date [...] as of this encounter (statuses as of 07/08/2024) Immunizations Name Administration Dates Next Due COVID-19, [...] Date Smoking Tobacco: Every Day Cigarettes 0.6 70.8 Started: 09/02/1973 Smokeless Tobacco: Never Comments:04/14 ppd. 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 (15 years old or [...] Care Team (Late st Contact Info) Description 07/13/2024 3:30 PM EDT Imaging Radiology [facility] [address] [place] [phone] Scheduled Orders Name Type Priority Associated Diagnoses Orde r Schedule CBC WITH WBC DIFFERENTIAL AND ANEMIA REFLEX WORKUP Lab Routine Wound infection Expected: 07/08/2024, Expires: 07/08/2025 Scheduled Procedures Name Priority Associated Diagnoses Date/Ti me COLONOSCOPY FLEXIBLE PROXIMA L DIAGNOSTIC Recall Encounter for screening colonoscopy Health Maintenance Due Date Last Done Comments DISCUSS TOBACCO CESSATION (REFER TO SMARTSET #7730) 1950 Alpha-1 Antitrypsin 1967 Zoster Vaccines (2 of 3) 03/19/2012 01/23/2012 Adult Wellness Visit 2015 DXA Scan 12/27/2016 12/27/2014, 03/13, 03/29/2007, Additional history exists COVID-19 Vaccine ( season) 2024 02/08/2024, 03/08/2021, 02/07/2021 Depression Screening 10/08/2024 10/09/2023 O2 ASSESSMENT COMPLETED IN PAST YEAR FOR COPD 02/07/2025 02/08/2024 GFR 07/05/2025 07/05/2024, 04/14, 04/13/2024, Additional history exists TSH 07/05/2025 07/05/2024, 09/12, 07/01/2023, Additional history exists Albumin/Creatinine Ratio 08/15/2025 08/15/2022 DTap/Tdap Vaccines (3 - Td or Tdap) 09/13/2031 09/12/2021, 06/10/2010, 07/16/1999 VITAMIN D LEVEL ONCE IN A LIFETIME-USE SMARTSET# [id number] Completed 03/22/2015 Pneumococcal Vaccine: 50+ Years Completed 12/31/2016, 11/17/2014, 06/10/2010 Fecal Occult Blood Test Discontinued 04/23/19 18, 12/21/2000, 10/31/1999 Colonoscopy Discontinued 06/02/2017, 04/12/2007 Colorectal Cancer Screening Discontinued Influenza Vaccine (FLU shot) Completed 02/08/2024, 02/08/2024, 03/14/2021, Additional history exists Lung Cancer Screening Completed 05/02/2024 , 04/13/2024, 01/05/2017, Additional history exists Cologuard Discontinued HPV (Gardasil) Vaccine Aged Out No lo nger eligible based on patient's age to complete this topic Hepatitis B Vaccine Aged Out No longe r eligible based on patient's age to complete this topic MENINGOCOCCAL (MENACTRA/MENVEO) Aged Out No longer eligible based on patient's age to complete this topic Meningitis B Vaccine (Bexsero/Trumemba) Aged Out No longer eligible based on patient's age to complete this topic Sigmoidoscopy Discontinued documented as of this encounter Medical Devices Implanted Type Area Set Staff Fitter Device Identifier Shelf Expiration Date Model / Serial / Lot Chip Cancellous c [id number] - [id number] Implanted:Qty: 1 on 08/08/2013 at OR [facility] Tissue - Human Left: Foot MUSCULOSKELETAL TRANSPLANT FND 07/24/2015 [id number] / [id number] / Screw Nonlock 3.5 X 24 - [id number] Implanted:Qty: 1 on 08/08/2013 at OR [facility] Left: Foot ORTHOHELIX SURGICAL DESIGNS BIO MEDICAL TECHNICIAN-011-3 5-24 / / Screw Locking 3.5 X 16 - [id number] Implanted:Qty: 2 on 08/08/2013 at OR [facility] Left: Foot ORTHOHELIX SURGICAL DESIGNS BIO MEDICAL TECHNICIAN-021-3 5-16 / / Plate 6 Hole Beta Mxl-0026 - [id number] Implanted:Qty: 1 on 08/08/2013 at OR [facility] Left: Foot ORTHOHELIX SURGICAL DESIGNS MXL-0026 / / Screw Locking 3.5 X 20 - [id number] Implanted:Qty: 1 on 08/08/2013 at OR [facility] Left: Foot ORTHOHELIX SURGICAL DESIGNS BIO MEDICAL TECHNICIAN-021-3 5-20 / / Screw Nonlock 3.5 X 16 - [id number] Implanted:Qty: 1 on 08/08/2013 at OR [facility] Left: Foot ORTHOHELIX SURGICAL DESIGNS BIO MEDICAL TECHNICIAN-011-3 5-16 / / Screw Nonlock 3.5 X 18 - [id number] Implanted:Qty: 1 on 08/08/2013 at OR [facility] Left: Foot ORTHOHELIX SURGICAL DESIGNS BIO MEDICAL TECHNICIAN-011-3 5-18 / / Screw Nonlock 3.5 X 14 - [id number] Implanted:Qty: 1 on 08/08/2013 at OR [facility] Left: Foot ORTHOHELIX SURGICAL DESIGNS BIO MEDICAL TECHNICIAN-011-3 5-14 / / 4.0 X 3.0 [...] / / [place] Gold 4.0 - [id number] Implanted:Qty: 1 on 08/08/2013 at OR [facility] Left: Foot ORTHOHELIX SURGICAL DESIGNS CSS-500-4 0A / / Plate Lps Alpha 2 Slot - [id number] Implanted:Qty: 1 on 08/08/2013 at OR [facility] Left: Foot ORTHOHELIX SURGICAL DESIGNS MXL-002-2 A / / Screw Variable 3.5 X 12mm - [id number] Implanted:Qty: 1 on 08/08/2013 at OR [facility] Left: Foot ORTHOHELIX SURGICAL DESIGNS RAKESH-031-3 5-12 / / Screw Variable 3.5 X 18mm - [id number] Implanted:Qty: 1 on 08/08/2013 at OR [facility] Left: Foot ORTHOHELIX SURGICAL DESIGNS RAKESH-031-3 5-18 / / documented as of this encounter Visit Diagnoses Diagnosis Wound infection- Primary Posttraumatic wound infection not elsewhere classified documented in this encounter Advance Directives * [...] Power of Attor elizabeth? No Care Teams Digital Asset Specialist Relationship Specialty Start Date End Date Ronald Cortes MD PCP - General 06/10/02 documented as of this encounter
--- OUTSIDE RECORDS SUMMARY | 2024-07-09 10:31 | External Medical Summary | Summary of Care ---
Author Name Unknown Organization [facility] Address [address] [place] [address] Phone [phone] Care Team Providers Care Director Emergency Department Name Role Phone Estevan Cortes MD Primary Care Provider [phone] Reason for Visit * Reason Comments eRx-Medication Refill Encounter Details Date Type Department Care Team (Late st Contact Info) Description 05/21/2024 Refill [facility] [address] [facility] [address] Estevan Cortes MD [address] [place] [address] Sleep disorder Allergies Active Allergy Reactions Criticality Noted Date Comments Bee Venom Anaphylaxis High 02/27/2006 Doxycycline Low 08/04/2023 Intolerant, GI upset documented as of this encounter (statuses as of 05/23/2024) Medications CALCIUM + D 600-200 MG-UNIT PO TABS 1 BID 0 006 Active MULTIVITAMINS PO TABS daily 0 006 Active ACETAMINOPHEN 325 MG PO TABSIndications:I NTERFACED RESULT,Pneumothor ax 2 Tab Oral Every 6 hours as needed for fever, pain, headache 1 Tab 0 014 Active [place]-3 Fatty Acids (FISH OIL) 1000 MG Capsule 1 Capsule in the morning. Active TO GO ondansetron ODT (ZOFRAN ODT) 4 MG Orally Disintegrated TabletIndications :Nonspecific colitis 1 tab every 8 hrs as needed for nausea 30 Each 3 020 Active Additional Information Patient not taking.Reported on 02/08/2024 Magnesium Oxide 400 MG Oral TabletIndications :Hypomagnesemia Take 1 Tablet by mouth in the morning. 90 Tablet 3 023 Active Estradiol 0.1 MG/GM Vaginal Cream (Estrace) Apply pea sized amount (0.5 gm) vaginally twice a week at bedtime 42.5 g 3 023 Active Additional Information Patient not taking.Reported on 07/01/2023 Econazole Nitrate 1 % External Cream (Spectazole)Indic ations:Candidal intertrigo Apply topically to affected area daily. Apply to affected area (under breast) twice daily 85 g 1 024 Active Furosemide 40 MG Oral Tablet (Lasix) 024 Active oxyBUTYnin Chloride ER 5 MG Oral Tablet Extended Release 24 Hour (Ditropan XL) 024 Active Triamcinolone Acetonide 0.1 % External Ointment (Aristocort)Indic ations:Candidal intertrigo Apply topically to affected area 2 times a day. To affected area. 80 g 5 024 Active Clotrimazole 1 % External Cream (Lotrimin)Indicat ions:Candidal intertrigo Apply topically to affected area 2 times a day. Apply to area under breast twice daily until resolved 85 g 3 024 Active Gabapentin 300 MG Oral Capsule (Neurontin)Indica tions:Post-trauma tic arthrosis of multiple joints TAKE 1 CAPSULE THREE TIMES DAILY 270 Capsule 2 024 Active Potassium Chloride Unique ER 10 MEQ Oral Tablet Extended Release Take 1 Tablet by mouth in the morning and 1 Tablet before bedtime. 180 Tablet 2 024 Active Alendronate Sodium 70 MG Oral Tablet (Fosamax)Indicati ons:Other osteoporosis without current pathological fracture,Dyslipid emia, goal LDL below 100 TAKE 1 TABLET EVERY WEEK DIRECTED , SEE PACKAGE FOR ADDITIONAL INSTRUCTIONS 12 Tablet 2 024 Active Levothyroxine Sodium 25 MCG Oral Tablet (Levoxyl)Indicati ons:Acquired hypothyroidism Take 1 Tablet by mouth in the morning. (at least 30 min prior to breakfast or other meds). 90 Tablet 3 024 Active Omeprazole 20 MG Oral Capsule Delayed Release (PriLOSEC)Indicat ions:Gastroesopha geal reflux disease, unspecified whether esophagitis present Take 1 Capsule by mouth in the morning. 1 hour before the first meal of the day.. 90 Capsule 2 Active traMADol HCl 50 MG Oral Tablet (Ultram)Indicatio ns:Generalized osteoarthritis of multiple sites Take 1 Tablet by mouth every 6 hours as needed for Pain, Moderate. 45 Tablet Active Fluticasone-Salme terol 115-21 MCG/ACT Inhalation Aerosol (Advair Hfa) Inhale 2 Puffs by mouth in the morning and 2 Puffs before bedtime. 12 g 12 Active Additional Information Patient taking differently: 1 PuffInhalationPRN, Reported on 11/13/2023 Citalopram Hydrobromide 40 MG Oral Tablet (CeleXA) TAKE 1 TABLET BY MOUTH EVERY DAY IN THE MORNING 90 Tablet 3 Active Ondansetron HCl 4 MG Oral Tablet (Zofran)Indicatio ns:Nausea without vomiting TAKE 1 TABLET EVERY 8 HOURS NEEDED FOR NAUSEA 20 Tablet 3 Active Clopidogrel Bisulfate 75 MG Oral Tablet (pLAVix) Take 1 Tablet by mouth in the morning. 90 Tablet 3 Active Full Kit Nebulizer Set Use with Nebulizer Medication EVERY SIX HOURS WHILE AWAKE as directed. Dx Code: J44.9 1 Each 3 Active Albuterol Sulfate 0.63 MG/3ML Inhalation Nebulization Solution (Accuneb) Inhale 1 Vial via nebulizer every 6 hours as needed for Wheezing or Shortness of Breath. Dx Code J 44.9 360 mL Active Atorvastatin Calcium 40 MG Oral Tablet (Lipitor) TAKE 1 TABLET BY MOUTH EVERY DAY IN THE MORNING 90 Tablet Active Eliquis 5 MG Oral Tablet (Apixaban)Indicat ions:Paroxysmal atrial fibrillation (HCC) TAKE 1 TABLET BY MOUTH IN THE MORNING AND BEFORE BEDTIME 180 Tablet 3 Active Nitroglycerin 0.4 MG Sublingual Tablet Sublingual (Nitrostat) Place 1 Tablet under the tongue every 5 minutes as needed for Pain, Chest. Active predniSONE 20 MG Oral Tablet (Deltasone) 09/02/2 024 Active Incruse Ellipta 62.5 MCG/ACT Inhalation Aerosol Powder Breath Activated Active Pantoprazole Sodium 40 MG Oral Tablet Delayed Release (Protonix)Indicat ions:Gastroesopha geal reflux disease, unspecified whether esophagitis present Take 1 Tablet by mouth in the morning. 90 Tablet 3 Active Albuterol Sulfate HFA 108 (90 Base) MCG/ACT Inhalation Aerosol Solution Inhale 2 Puffs by mouth every 4 hours as needed for Wheezing or Cough. 54 g 3 Active Tiotropium [place] Monohydrate 18 MCG Inhalation Capsule (Spiriva HandiHaler) Inhale 1 Capsule by mouth in the morning. INHALE THE CONTENTS OF 1 CAPSULE EVERY DAY VIA HANDIHALER (DO NOT SWALLOW). 90 Capsule 3 Active Carvedilol 3.125 MG Oral Tablet (Coreg) Take 1 Tablet by mouth 2 times a day with morning and evening meals. Active Cefuroxime Axetil 250 MG Oral Tablet (Ceftin) Take 1 Tablet by mouth in the morning and 1 Tablet before bedtime. Active Losartan Potassium 25 MG Oral Tablet (Cozaar) Take 1 Tablet by mouth in the morning. Active traZODone HCl 50 MG Oral Tablet (Desyrel)Indicati ons:Sleep disorder TAKE 1 TO 2 TABLETS BEFORE BEDTIME. 180 Tablet 1 Active traZODone HCl 50 MG Oral Tablet (Desyrel)Indicati ons:Sleep disorder TAKE 1 TO 2 TABLETS BEFORE BEDTIME. 180 Tablet 1 024 2024 Discontinued Hospital, Clinic, or Other Facility Administered [...] as of this encounter (statuses as of 05/23/2024) Active Problems Problem Noted Date Diagnosed Date History of atrial fibrillation 02/08/2024 Gait difficulty 02/08/2024 Chronic respiratory failure with hypoxia 024 COPD, group B, by GOLD 2017 classification 09/20 Overview: Per COPD GOLD Classification Acquired hypothyroidism 07/19/2023 History of coronary angioplasty with insertion o f stent 07/01/2023 Coronary artery disease invo lving [place] coronary artery of [place] heart without angina pectoris 07/01/2023 Hematuria of undiagnosed cause 07/12/2019 Tobacco use disorder 12/21/2017 Chronic nonspecific lung disease 06/16/2017 HTN, goal below 150/90 11/16/2015 Osteoporosis 12/28/2014 Dyslipidemia, goal LDL below 100 06/10/2010 Generalized osteoarthritis of multiple sites 02/2011 GENERALIZED ANXIETY DIS 12/05/2004 COMMON MIGRAINE WITHOUT MENTION OF INTRACTABLE M IGRAINE documented as of this encounter (statuses as of 05/23/2024) Resolved Problems Problem Noted Date Diagnosed Date [...] as of this encounter (statuses as of 05/23/2024) Immunizations Name Administration Dates Next Due COVID-19, [...] Date Smoking Tobacco: Every Day Cigarettes 0.6 70.7 Started: 09/02/1973 Smokeless Tobacco: Never Comments:04/14 ppd. 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 Not on file Not [...] encounter Miscellaneous Notes * Telephone Encounter - Mery Argueta RPh - 05/23/2024 9:03 AM ESTSigned Prescriptions: Disp Refills traZODone HCl 50 MG Oral Tablet (Desyrel) 180 Ta*1 Sig: TAKE 1 TO 2 TABLETS BEFORE BEDTIME.Authorizing Provider: ESTEVAN CORTES User: MERY ARGUETA------ documented in this encounter Plan of Treatment Upcoming Encounters Date Type Department Care Team (Late st Contact Info) Description 05/23/2024 2:00 PM EST Office Visit Pulmonary Medicine, [address] [place] [address] Marbin Serrano MD [facility] [address] [facility] [place] [address] 06/07/2024 8:30 AM EST Office Visit Cardiology, [facility] [address] [place] [address] Pepe Lennon, DO [address] [place] [address] 07/13/2024 3:30 PM EDT Imaging Radiology [facility] [address] [place] [phone] Scheduled Procedures Name Priority Associated Diagnoses Date/Ti me COLONOSCOPY FLEXIBLE PROXIMA L DIAGNOSTIC Recall Encounter for screening colonoscopy Health Maintenance Due Date Last Done Comments DISCUSS TOBACCO CESSATION (REFER TO SMARTSET #3291) 1950 Alpha-1 Antitrypsin 1967 Zoster Vaccines (2 of 3) 03/19/2012 01/23/2012 Adult Wellness Visit 2015 DXA Scan 12/27/2016 12/27/2014, 03/13, 03/29/2007, Additional history exists Depression Screening 10/08/2024 10/09/2023 TSH 10/08/2024 10/09/2023, 06/12, 08/08/2013, Additional history exists O2 ASSESSMENT COMPLETED IN PAST YEAR FOR COPD 02/07/2025 02/08/2024 GFR 05/09/2025 05/09/2024, 04/2024, 04/13/2024, Additional history exists Albumin/Creatinine Ratio 08/15/2025 08/15/2022 DTap/Tdap Vaccines (3 - Td or Tdap) 09/13/2031 09/12/2021, 06/10/2010, 07/16/1999 VITAMIN D LEVEL ONCE IN A LIFETIME-USE SMARTSET# [id number] Completed 03/22/2015 Pneumococcal Vaccine: 50+ Years Completed 12/31/2016, 11/17/2014, 06/10/2010 Fecal Occult Blood Test Discontinued 04/23/19 18, 12/21/2000, 10/31/1999 Colonoscopy Discontinued 06/02/2017, 04/12/2007 Colorectal Cancer Screening Discontinued COVID-19 Vaccine Completed 02/08/2024, , 02/07/2021 Influenza [...] this encounter Medical Devices Implanted Type Area Delicatessen Clerk Device Identifier Shelf Expiration Date Model / Serial / Lot Chip Cancellous [facility] [id number] - [id number] Implanted:Qty: 1 on 08/08/2013 at [place] [facility] Tissue - Human Left: Foot MUSCULOSKELETAL TRANSPLANT FND 07/24/2015 [id number] / [id number] / Screw Nonlock 3.5 X 24 - [id number] Implanted:Qty: 1 on 08/08/2013 at [place] [facility] Left: Foot [employer]THOHEL[employer] [place] NURSE-011-3 5-24 / / Screw Locking 3.5 X 16 - [id number] Implanted:Qty: 2 on 08/08/2013 at [place] [facility] Left: Foot ORTHOHELIX [employer] [place] NURSE-021-3 5-16 / / Plate 6 Hole Beta Mxl-0026 - [id number] Implanted:Qty: 1 on 08/08/2013 at [place] [facility] Left: Foot ORTHOHEL[employer] MXL-0026 / / Screw Locking 3.5 X 20 - [id number] Implanted:Qty: 1 on 08/08/2013 at [place] [facility] Left: Foot ORTHOHELIX [employer] [place] NURSE-021-3 5-20 / / Screw Nonlock 3.5 X 16 - [id number] Implanted:Qty: 1 on 08/08/2013 at [place] [facility] Left: Foot ORTHOHEL[employer] [place] NURSE-011-3 5-16 / / Screw Nonlock 3.5 X 18 - [id number] Implanted:Qty: 1 on 08/08/2013 at [place] [facility] Left: Foot [employer]HEL[employer] [place] NURSE-011-3 5-18 / / Screw Nonlock 3.5 X 14 - [id number] Implanted:Qty: 1 on 08/08/2013 at [place] [facility] Left: Foot [employer] [place] NURSE-011-3 5-14 / / 4.0 X 3.0 Short Max Torque Implanted:Qty: 1 on 08/08/2013 at [place] [facility] Left: Foot [employer] MSD-010-4 0-030S / / 4.0 X 32.5 Short Max Torque Implanted:Qty: 1 on 08/08/2013 at [place] [facility] Left: Foot MSD-010-4 0-325S / / 4.0 X 28 Short Max Torque Implanted:Qty: 1 on 08/08/2013 at [place] [facility] Left: Foot [employer]THOHEL[employer] MSD-010-4 0-028S / / 4.0 X 22 Short Max Torque Implanted:Qty: 1 on 08/08/2013 at [place] [facility] Left: Foot ORTHOHELIX [employer] MSD-010-4 0-022S / / [place] Gold 4.0 - [id number] Implanted:Qty: 1 on 08/08/2013 at [place] [facility] Left: Foot [employer]HEL[employer] CSS-500-4 0A / / Plate Lps Alpha 2 Slot - [id number] Implanted:Qty: 1 on 08/08/2013 at [place] [facility] Left: Foot [employer]TH[employer]HEL[employer] MXL-002-2 A / / Screw Variable 3.5 X 12mm - [id number] Implanted:Qty: 1 on 08/08/2013 at [place] [facility] Left: Foot [employer]THOHEL[employer] RAKESH-031-3 5-12 / / Screw Variable 3.5 X 18mm - [id number] Implanted:Qty: 1 on 08/08/2013 at [place] [facility] Left: Foot [employer]TH[employer]HEL[employer] RAKESH-031-3 5-18 [...] Power of Attor elizabeth? No Care Teams Director Emergency Department Relationship Specialty Start Date End Date Estevan Cortes MD PCP - General 06/10/02 documented as of this encounter
--- OUTSIDE RECORDS SUMMARY | 2024-07-09 10:31 | External Medical Summary | Continuity of Care Document ---
Author Name Unknown Organization [facility] [address] [place], [place] [address]A Address [address] [place] [id number] Care Team Providers Care Law Firm Administrator Name Role Phone Ronald Cortes Primary Care Physician [phone] [id number] Date(s[facility] 06/03/24 - 06/03/24 [facility] [address] [facility] [address] [facility] Sports Medicine [address] [place] [address] Encounter Diagnosis Closed fracture of left distal humerus(Discharge Diagnosis) - 06/03/24 Delayed wound healing(Discharge Diagnosis) - 06/03/24 Discharge Disposition: Home or Self Care Attending Physician: MD Chanell, Darrell Richard Referring Physician: HARRISON Leach, Nelly Coughlin Encounter Type: Clinic Allergies, Adverse Reactions, Alerts Substance Criticality Severity Reaction Reaction Severity Status doxycycline Vomiting Active Bee stings Swelling Active Immunizations Given and Recorded Vaccine Date Status Refusal Reason influenza virus vaccine, inactivated 02/08/24 Nikita rded pneumococcal 23-valent vaccine 12/31/16 Recorded pneumococcal 23-valent vaccine 06/10/10 Recorded Medications Albuterol (Eqv-Ventolin HFA) 90 mcg/inh inhalation aerosol INHALE 2 PUFFS BY MOUTH EVERY 4 HOURS NEEDED FOR WHEEZING OR COUGH Start Date: 03/17/24 Status: Ordered Repeat number: 1 alendronate 70 mg oral tablet TAKE 1 TABLET BY MOUTH WEEKLY DIRECTED , SEE PACKAGE FOR ADDITIONAL INSTRUCTIONS Start Date: 03/17/24 Status: Ordered Repeat number: 1 amiodarone 200 mg oral tablet TAKE 1 TABLET BY MOUTH DAILY. Start Date: 03/17/24 Status: Ordered Repeat number: 1 atorvastatin 40 mg oral tablet TAKE 1 TABLET BY MOUTH EVERY DAY IN THE MORNING Start Date: 03/17/24 Status: Ordered Repeat number: 1 carvedilol 3.125 mg oral tablet TAKE 1 TABLET BY MOUTH TWICE A DAY Start Date: 03/17/24 Status: Ordered Repeat number: 1 citalopram 40 mg oral tablet TAKE 1 TABLET BY MOUTH EVERY DAY IN THE MORNING Start Date: 03/17/24 Status: Ordered Repeat number: 1 clopidogrel 75 mg oral tablet TAKE 1 TABLET BY MOUTH EVERY DAY IN THE MORNING Start Date: 03/17/24 Status: Ordered Repeat number: 1 Eliquis 5 mg oral tablet TAKE 1 TABLET BY MOUTH IN THE MORNING AND BEFORE BEDTIME Start Date: 03/17/24 Status: Ordered Repeat number: 1 fluticasone-salmeterol 115 mcg-21 mcg inhalation aerosol INHALE 2 PUFFS BY MOUTH IN THE MORNING AND BEFORE BEDTIME Start Date: 03/17/24 Status: Ordered Repeat number: 1 furosemide 40 mg oral tablet TAKE 1 TABLET BY MOUTH DAILY. MAX: 1 TAB DAILY Start Date: 03/17/24 Status: Ordered Repeat number: 1 gabapentin 300 mg oral capsule TAKE 1 CAPSULE BY MOUTH THREE TIMES A DAY Start Date: 03/17/24 Status: Ordered Repeat number: 1 ketorolac 0.5% ophthalmic solution PLEASE SEE ATTACHED FOR DETAILED DIRECTIONS Start Date: 03/17/24 Status: Ordered Repeat number: 1 Klor-Con M10 oral tablet, extended release TAKE 1 TABLET BY MOUTH IN THE MORNING AND BEFORE BEDTIME Start Date: 03/17/24 Status: Ordered Repeat number: 1 levothyroxine 25 mcg (0.025 mg) oral tablet TAKE 1 TABLET BY MOUTH IN THE MORNING. (AT LEAST 30 MIN PRIOR TO BREAKFAST OR OTHER MEDS). Start Date: 03/17/24 Status: Ordered Repeat number: 1 losartan 25 mg oral tablet Start: 03/24/24 7:30:00 AM EST, 1 tab, PO, Daily Start Date: 03/24/24 Status: Ordered Repeat number: 1 MiraLax Start: 03/24/24 7:17:00 AM EST, 17 g =, PO, Daily, PRN: constipation 2nd line Start Date: 03/24/24 Status: Ordered Repeat number: 1 mirtazapine 7.5 mg oral tablet Start: 05/20/24 8:54:00 AM EST, 1 tab, PO, qhs Start Date: 05/20/24 Status: Ordered Repeat number: 1 ocular lubricant ophthalmic ointment Start: 03/24/24 7:17:00 AM EST, right eye, qhs Start Date: 03/24/24 Status: Ordered Repeat number: 1 ocular lubricant ophthalmic solution Start: 03/24/24 7:17:00 AM EST, both eyes, qid Start Date: 03/24/24 Status: Ordered Repeat number: 1 ofloxacin 0.3% ophthalmic solution INSTILL 1 DROP IN THE LEFT EYE 4 TIMES A DAY STARTING THE DAY BEFORE SURGERY BRING TO SURGERY CENTER Start Date: 03/17/24 Status: Ordered Repeat number: 1 oxyBUTYnin 5 mg/24 hours oral tablet, extended release TAKE 1 TABLET BY MOUTH EVERY DAY Start Date: 03/17/24 Status: Ordered Repeat number: 1 oxyCODONE 10 mg oral tablet Start: 03/24/24 7:20:00 AM EST, 10 mg =, PO, q4h, Refills: 0, PRN: pain - severe (7-10) Start Date: 03/24/24 Status: Ordered Repeat number: 1 oxyCODONE 5 mg oral tablet Start: 03/24/24 7:20:00 AM EST, 5 mg =, PO, q4h, Refills: 0, PRN: pain - moderate (4-6) Start Date: 03/24/24 Status: Ordered Repeat number: 1 pantoprazole 40 mg oral delayed release tablet TAKE 1 TABLET BY MOUTH EVERY DAY IN THE MORNING Start Date: 03/17/24 Status: Ordered Repeat number: 1 Senokot 8.6 mg oral tablet Start: 03/24/24 7:17:00 AM EST, 2 tab, PO, bid, PRN: constipation 1st line Start Date: 03/24/24 Status: Ordered Repeat number: 1 spironolactone 25 mg oral tablet TAKE 1 TABLET BY MOUTH EVERY DAY Start Date: 03/17/24 Status: Ordered Repeat number: 1 tiotropium 18 mcg inhalation capsule INHALE THE CONTENTS OF 1 CAPSULE EVERY MORNING VIA HANDIHALER (DO NOT SWALLOW). Start Date: 03/17/24 Status: Ordered Repeat number: 1 Tylenol 500 mg oral tablet Start: 03/24/24 7:16:00 AM EST, 2 tab, PO, q8h Start Date: 03/24/24 Status: Ordered Repeat number: 1 Vitamin D3 50 mcg (2000 intl units) oral capsule Start: 03/24/24 8:29:00 AM EST, 1 cap, PO, Daily, Disp# 1 cap, other Start Date: 03/24/24 Status: Ordered Quantity: 1.0 Unit: cap Repeat number: 1 Mental Status 06/03/24 Barriers to Learning one year None evide nt Mandatory Health Literacy Documentation Yes Health Literacy Communication Barriers N ever Primary Language Uzbek Problem List Condition Confirmation Course Effective Dates Status H ealth Status Informant Atrial fibrillation, chronic Confirmed Active Chronic hypoxic respiratory failure, on home oxygen therapy Confirmed Active Chronic obstructive pulmonary disease Confirmed Active Closed fracture of left distal humerus Confirmed Active Coronary artery disease involving [place] heart Confirmed Active Macular degeneration Confirmed Active Generalized anxiety disorder Confirmed Active Hypertension Confirmed Active Hypothyroidism Confirmed Active Osteoarthritis Confirmed Active Osteoporosis Confirmed Active Left arm pain Confirmed Active Diagnosis Diagnosis Type Effective Dates Health Status Cl inical Service Informant Closed fracture of left distal humerus Discharge Diagnosis 06/03/24 Non-Specified Delayed wound healing Discharge Diagnosis 06/03/24 Non-Specified Procedures Procedure Date Related Diagnosis Body Site Status Appendectomy Completed Cardiac catheterization C ompleted Cholecystectomy Completed Coronary artery stent Com pleted Exploratory laparotomy Co mpleted Rotator cuff repair, Left Completed Tubal ligation done Compl eted Social History Social History Type Response Tobacco Current every day sm oker, Cigarettes 1 Smoking Status Never smoked cigaret blayne Sex Sex Representation Female (finding) 11-2 cigarrettes [...] Unknown Unknown Unknown Unknown Active Unkn own Patient Care team information Care Team Personnel Name: MD Sebastian, Ronald Richard Position: Referring DIRECT Member Role: Primary Care Provider Address: [address] [place], [place] [address]Tray: [phone] Care Team Related Persons Name: DESHAWN FARIAS Insurance Providers Guarantor name: MARION Health Plan Information #: 1 Payer: [employer] Member Number: [id number] Policy Number: NA Group Number: [id number] Health Plan Information #: 2 Payer: [employer] Member Number: [id number] Policy Number: NA Group Number: [id number]
--- OUTSIDE RECORDS SUMMARY | 2024-07-09 10:31 | External Medical Summary | Continuity of Care Document ---
Author Name Unknown Organization [facility] [address] [place] [address] [place] [phone] Care Team Providers Care High Lighter Name Role Phone JohnytriniRonald Primary Care Physician [phone] Encounter [facility] [id number] Date(s): 05/20/24 - 05/20/24 [facility] [address] [facility] [place] [address] [place] [address] [phone] Encounter Diagnosis Closed fracture of left distal humerus(Discharge Diagnosis) - 04/24/24 Discharge Disposition: Home or Self Care Attending Physician: HARRISON Leach, Nelly Coughlin Allergies, Adverse Reactions, Alerts Substance Criticality Severity [...] 2nd line Start Date: 03/24/24 Status: Ordered mirtazapine 7.5 mg oral tablet Start: 05/20/24 8:54:00 AM EST, 1 tab, PO, qhs Start Date: 05/20/24 Status: Ordered ocular lubricant ophthalmic ointment Start: [...] Start Date: 03/24/24 Status: Ordered Mental Status 05/20/24 Barriers to Learning one year None evide nt Mandatory Health Literacy Documentation Yes Communication Barrier Present No Health Literacy Communication Barriers N ever Primary Language Qatari Problem List Condition Confirmation Course Effective Dates Status H ealt Status Informant Atrial fibrillation, chronic Confirmed Active Chronic hypoxic respiratory failure, on home oxygen therapy Confirmed Active Chronic obstructive pulmonary disease Confirmed Active Closed fracture of left distal humerus Confirmed Active Coronary artery disease involving [place] heart Confirmed Active Macular degeneration Confirmed Active Generalized anxiety disorder Confirmed Active Hypertension Confirmed Active Hypothyroidism Confirmed Active Osteoarthritis Confirmed Active Osteoporosis Confirmed Active Left arm pain Confirmed Active Diagnosis Diagnosis Type Effective Dates Health Status Cl inical Service Informant Closed fracture of left distal humerus Discharge Diagnosis 04/24/24 Procedures Procedure Date Related Diagnosis Body Site Status Appendectomy Completed Cardiac catheterization C ompleted Cholecystectomy Completed Coronary artery stent Com pleted Exploratory laparotomy Co mpleted Rotator cuff repair, Left Completed Tubal ligation done Compl eted Results Radiology Reports * Exam Date Time Procedure Performing Provider Status 05/20/24 9:22 AM XR Elbow Complete 3+ Views Left Pearl Nevarez; Final Notes: (XR Elbow Complete 3+ Views Left) Reason For Exam: distal humerus ORIF XR Elbow Complete 3+ Views Left EXAMINATION: XR Elbow Complete 3+ Views Left CLINICAL HISTORY: S42.402A: Unspecified fracture of lower end of left humerus,; AP, lateral and oblique Distal humerus ORIF COMPARISON: Prior study dated 03/18/2024 FINDINGS: 3 views of the left elbow. Postsurgical changes of medial and lateral plate and screw fixations fora left distal humerus fracture. No hardware complication. IMPRESSION: Left distal humerus ORIF without hardware complication Workstation ID: [id number] Final Dictated by:MD Argueta Eric A Dictated DT/TM:05/20/2024 9:27 Signed by:MD Argueta Eric A Signed (Electronic Signature):05/20/2024 9:26 a Social History Social History Type Response Tobacco [...] DIRECT Member Role: Primary Care Provider Address: [address] [place] [address] [place] Care Team Related Persons Name: DESHAWN FARIAS
--- OUTSIDE RECORDS SUMMARY | 2024-07-09 10:31 | External Medical Summary ---
Author Name Unknown Address Unknown Organization K01:[place] [place] [address] [facility] [address] Laboratory Report Ordering Provider Test Date Status APARNA GARCIA 07/05/2024 16:08:15 Final Observation Date Value Abnormality Reference (Units ) Status BUN 07/05/2024 16:08:15 11 6-20 (mg/dL) Final Creatinine 07/05/2024 16:08:15 0.8 0.5-1.0 (mg/dL) Final Glomerular filtration rate/1.73 sq M.predicted [Volume Rate/Area] in Serum, Plasma or Blood by Creatinine-based formula (CKD-EPI) 07/05/2024 16:08:15 79 >=60 (mL/min) Final eGFR is calculated based on the CKD-EPI 2020 equation. Sodium 07/05/2024 16:08:15 140 135-146 (m mol/L) Final Potassium 07/05/2024 16:08:15 3.6 3.5-5.1 (m mol/L) Final Cl 07/05/2024 16:08:15 98 98-107 (mm ol/L) Final CO2 07/05/2024 16:08:15 27 22-32 (mmo l/L) Final Anion gap 07/05/2024 16:08:15 15 7-15 (mmol /L) Final Glucose 07/05/2024 16:08:15 101 70-120 (mg /dL) Final Albumin 07/05/2024 16:08:15 3.2 Below low normal 3.8 -5.0 (g/dL) Final AST (Aspartate aminotransferase) 07/05/2024 16:08:15 23 10-35 (U/L) Fin al Alk Phos 07/05/2024 16:08:15 137 Above high normal 35 -130 (U/L) Final Bilirubin, Total 07/05/2024 16:08:15 <0.2 <=1 .2 (mg/dL) Final Calcium 07/05/2024 16:08:15 9.6 8.4-10.2 ( mg/dL) Final Protein 07/05/2024 16:08:15 6.8 6.0-8.3 (g /dL) Final ALT (Alanine aminotransferase) 07/05/2024 16:08:15 5 Below low normal 10-35 (U/L) Final Performing Location [facility] [place] [address] [facility] [address]
--- OUTSIDE RECORDS SUMMARY | 2024-07-09 10:31 | External Medical Summary | Summary of Care ---
Author Name Unknown Organization [facility] Address [address] [place] [address] Phone [phone] Care Team Providers Care Driver Service Technician Name Role Phone Ronald Cortes MD Primary Care Provider [phone] Reason for Visit * Reason Comments Outpatient Testing Encounter Details Date Type Department Care Team (Late st Contact Info) Description 07/05/2024 3:50 PM EDT Laboratory Laboratory, [facility] [address] [place] [address] [facility] [address] [place], [place] [phone] Dyslipidemia, goal LDL below 100; Encounter for long-term (current) use of medications; Enterogastritis; Dehydration; GUTIERREZ (acute kidney injury) (HCC); Chronic respiratory failure with hypoxia (HCC); Hypothyroidism, unspecified type; Wound infection; Acquired hypothyroidism Allergies Active Allergy Reactions Criticality Noted Date Comments Bee Venom Anaphylaxis High 02/27/2006 Doxycycline Low 08/04/2023 Intolerant, GI upset documented as of this encounter (statuses as of 07/06/2024) Medications CALCIUM + D 600-200 MG-UNIT PO TABS 1 BID 0 03/13/20 06 Active MULTIVITAMINS PO TABS daily 0 03/13/20 06 Active ACETAMINOPHEN 325 MG PO TABSIndications:IN TERFACED RESULT,Pneumothora x 2 Tab Oral Every 6 hours as needed for fever, pain, headache 1 Tab 0 07/28/19 14 Active [place]-3 Fatty Acids (FISH OIL) 1000 MG Capsule [...] bedtime. 180 Tablet 2 08/05/19 24 Active Alendronate Sodium 70 MG [...] 54 g 3 02/08/20 24 Active Tiotropium [place] Monohydrate 18 MCG Inhalation Capsule (Spiriva HandiHaler) [...] as of this encounter (statuses as of 07/06/2024) Active Problems Problem Noted Date Diagnosed Date History of atrial fibrillation 02/08/2024 Gait difficulty 02/08/2024 Chronic respiratory failure with hypoxia 024 COPD, group B, by GOLD 2017 classification 09/20 Overview: Per COPD GOLD Classification Acquired hypothyroidism 07/19/2023 History of coronary angioplasty with insertion o f stent 07/01/2023 Coronary artery disease invo lving [place] coronary artery of [place] heart without angina pectoris 07/01/2023 Hematuria of undiagnosed cause 07/12/2019 Tobacco use disorder 12/21/2017 Chronic nonspecific lung disease 06/16/2017 HTN, goal below 150/90 11/16/2015 Osteoporosis 12/28/2014 Dyslipidemia, goal LDL below 100 06/10/2010 Generalized osteoarthritis of multiple sites 02/2011 GENERALIZED ANXIETY DIS 12/05/2004 COMMON MIGRAINE WITHOUT MENTION OF INTRACTABLE M IGRAINE documented as of this encounter (statuses as of 07/06/2024) Resolved Problems Problem Noted Date Diagnosed Date [...] as of this encounter (statuses as of 07/06/2024) Immunizations Name Administration Dates Next Due COVID-19, [...] file Not on file Not on file Rn Mental Health Not on file Not on file Not [...] Description 07/13/2024 3:30 PM EDT Imaging Radiology [facility] [address] [place] [address] Pending Results Name Type Priority Associated Diagnoses Date /Time CBC WITH WBC DIFFERENTIAL AND ANEMIA REFLEX WORKUP Lab Routine Enterogastritis Dehydration GUTIERREZ (acute kidney injury) (HCC) Chronic respiratory failure with hypoxia (HCC) 07/05/2024 4:08 PM EDT TSH WITH FREE T4 IF INDICATED Lab Routine Enterogastritis Hypothyroidism, unspecified type 07/05/2024 4:08 PM EDT Scheduled Orders Name Type Priority Associated Diagnoses Orde r Schedule ANEMIA CBC Lab Routine Enterogastritis Dehydration GUTIERREZ (acute kidney injury) (HCC) Chronic respiratory failure with hypoxia (HCC) Ordered: 07/05/2024 DIFFERENTIAL, AUTOMATED Lab Routine Enterogastritis Dehydration GUTIERREZ (acute kidney injury) (HCC) Chronic respiratory failure with hypoxia (HCC) Ordered: 07/05/2024 Scheduled Procedures Name Priority Associated Diagnoses Date/Ti me COLONOSCOPY FLEXIBLE PROXIMA L DIAGNOSTIC Recall Encounter for screening colonoscopy Health Maintenance Due Date Last Done Comments DISCUSS TOBACCO CESSATION (REFER TO SMARTSET #5995) 1950 Alpha-1 Antitrypsin 1967 Zoster Vaccines (2 of 3) 03/19/2012 01/23/2012 Adult Wellness Visit 2015 DXA Scan 12/27/2016 12/27/2014, 03/13, 03/29/2007, Additional history exists COVID-19 Vaccine ( season) 2024 02/08/2024, 03/08/2021, 02/07/2021 Depression Screening 10/08/2024 10/09/2023 TSH 10/08/2024 10/09/2023, 06/12, 08/08/2013, Additional history exists O2 ASSESSMENT COMPLETED IN PAST YEAR FOR COPD 02/07/2025 02/08/2024 GFR 07/05/2025 07/05/2024, 04/14, 04/13/2024, Additional history exists Albumin/Creatinine Ratio 08/15/2025 08/15/2022 DTap/Tdap Vaccines (3 - Td or Tdap) 09/13/2031 09/12/2021, 06/10/2010, 07/16/1999 VITAMIN D LEVEL ONCE IN A LIFETIME-USE SMARTSET# 53454 Completed 03/22/2015 Pneumococcal Vaccine: 50+ Years Completed [...] this encounter Medical Devices Implanted Type 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 [employer] Device Identifier Shelf Expiration Date Model / Serial / Lot Chip Cancellous [facility] [id number] - [id number] [place] 1 [place] [facility] [place] Left: Foot MUSCULOSKELETAL TRANSPLANT FND 07/24/2015 [id number] / [id number] / Screw Nonlock 3.5 X 24 - [id number] [place]ed:Q[place] 1 [place] [facility] [place] Foot ORTHOHELIX SURGICAL DESIGNS MICROFICHE CAMERA OPERATOR-011-3 5-24 / / Screw Locking 3.5 X 16 - [id number] Implanted:Q[place]: 2 [place]08[place] [facility] [place] Foot ORTHOHELIX SURGICAL DESIGNS MICROFICHE CAMERA OPERATOR-021-3 5-16 / / Plate 6 Hole Beta Mxl-0026 - [id number] Im[place]ed:Qty: 1 [place] 08[place]08[place] [facility] [place] Foot ORTHOHELIX SURG[employer] DESIGNS MXL-0026 / / Screw Locking 3.5 X 20 - [id number] Implanted:Qty: 1 on 08/08/2013 [place] [facility] [place]: Foot ORTHOHELIX SURGICAL DESIGNS MICROFICHE CAMERA OPERATOR-021-3 5-20 / / Screw Nonlock 3.5 X 16 - [id number] Implanted:Qty: 1 on 08/08/2013 [place] [facility] [place] Foot ORTHOHELIX SURGICAL DESIGNS MICROFICHE CAMERA OPERATOR-011-3 5-16 / / Screw Nonlock 3.5 X 18 - [id number] Implanted:Qty: 1 [place] 08/08/2013 [place] [facility] [place]: Foot ORTHOHELIX SURGICAL DESIGNS MICROFICHE CAMERA OPERATOR-011-3 5-18 / / Screw Nonlock 3.5 X 14 - [id number] Implanted:Qty: 1 [place] 08/08/2013 [place] [facility] [place]: Foot ORTHOHELIX SURGICAL DESIGNS MICROFICHE CAMERA OPERATOR-011-3 5-14 / / 4.0 X 3.0 [...] / / [place] Gold 4.0 - [id number] Implanted:Qty: 1 on 08/08/2013 [place] [facility] [place]: Foot ORTHOHELIX SURGICAL DESIGNS CSS-500-4 0A / / Plate Lps Alpha 2 Slot - [id number] Implanted:Qty: 1 on 08/08/2013 [place] [facility] [place]: Foot ORTHOHELIX SURGICAL DESIGNS MXL-002-2 A / / Screw Variable 3.5 X 12mm - [id number] Implanted:Qty: 1 on 08/08/2013 [place] [facility] [place]: Foot ORTHOHELIX SURGICAL DESIGNS RAKESH-031-3 5-12 / / Screw Variable 3.5 X 18mm - [id number] Implanted:Qty: 1 on 08/08/2013 [place] [facility] [place]: Foot ORTHOHELIX SURGICAL DESIGNS RAKESH-031-3 5-18 / / documented as of this encounter Procedures Procedure Name Priority Date/Time Associated Diagnosis Comments LIPID PANEL WITH DIRECT LDL IF TG IS HIGH Routine 07/05/2024 4:08 PM EDT Dyslipidemia, goal LDL below 100 Encounter for long-term (current) use of medications COMPREHENSIVE METABOLIC PANEL Routine 07/05/2024 4:08 PM EDT Enterogastritis Dehydration GUTIERREZ (acute kidney injury) (HCC) Chronic respiratory failure with hypoxia (HCC) documented in this encounter Results * (ABNORMAL) COMPREHENSIVE METABOLIC PANEL (07/05/2024 4:08 PM EDT) BUN 11 6 - 20 mg/dL 07/05/2024 10:08 PM EDT [place] [place] CREATININE 0.8 0.5 - 1.0 mg/dL 07/05/2024 10:08 PM EDT [facility] [place] EGFR 79 >=60 mL/min 07/05/2024 10:08 PM EDT [facility] Comment:eGFR is calculated b ased on the CKD-EPI 2020 equation. SODIUM 140 135 - 146 mmol/L 07/05/2024 10:08 PM EDT [facility] POTASSIUM 3.6 3.5 - 5.1 mmol/L 07/05/2024 10:08 PM EDT [facility] CHLORIDE 98 98 - 107 mmol/L 07/05/2024 10:08 PM EDT [facility] CO2 27 22 - 32 mmol/L 07/05/2024 10:08 PM EDT [facility] ANION GAP 15 7 - 15 mmol/L 07/05/2024 10:08 PM EDT [facility] GLUCOSE 101 70 - 120 mg/dL 07/05/2024 10:08 PM EDT [facility] Albumin 3.2(L) 3.8 - 5.0 g/dL 07/05/2024 10:08 PM EDT [facility] AST 23 10 - 35 U/L 07/05/2024 10:08 PM EDT [facility] Alkaline Phosphatase 137(H) 35 - 130 U/L 07/05/2024 10:08 PM EDT [facility] Bilirubin, Total <0.2 <=1.2 mg/dL 07/05/2024 10:08 PM EDT [facility] CALCIUM 9.6 8.4 - 10.2 mg/dL 07/05/2024 10:08 PM EDT [facility] Protein 6.8 6.0 - 8.3 g/dL 07/05/2024 10:08 PM EDT [facility] ALT 5(L) 10 - 35 U/L 07/05/2024 10:08 PM EDT LABORATORY C Blood Venous blood specimen / Unknown Venipuncture / Unknown 07/05/2024 4:08 PM EDT 07/05/2024 4:08 PM EDT us Marcelino Prado MD LAB BLOOD ORDERABLES Final Resul t LABORATORY [facility] [address] [place], [place] [id number] * LIPID PANEL WITH DIRECT LDL IF TG IS HIGH (07/05/2024 4:08 PM EDT) Triglycerides 94 <=174 mg/dL 07/05/2024 10:08 PM EDT [facility] [place] Comment: Triglyceride Reference Ranges (mg/dL): <150 Acceptable 150-174 Borderline high 175-499 High >=500 Very high Cholesterol 121 <200 mg/dL 07/05/2024 10:08 PM EDT [facility] [place] Comment: Total Cholesterol Reference Ranges (mg/dL): <200 Desirable 200-239 Borderline high >=240 High HDL Cholesterol 50 >49 mg/dL 10:08 PM EDT [facility] [place]: HDL Cholesterol Reference Ranges (mg/dL): >=60 High (Desirable) <50 Low (Undesirable) For Females <40 Low (Undesirable) For Males Non-HDL Cholesterol 71 <=159 mg/dL 07/05/2024 10:08 PM EDT [facility] [place]: Non-HDL Cholesterol Reference Range (mg/dL): <100 Target level for high risk ASCVD patient <130 Optimal for general population 130-159 Near optimal for general population 160-189 Borderline High 190-219 High >=220 Very High LDL Cholesterol 52 <=129 mg/dL 07/05/2024 10:08 PM EDT [facility] [place]: LDL Cholesterol Reference Ranges (mg/dL): <70 Target level for high risk ASCVD patient <100 Optimal for general population 100-129 Near optimal for general population 130-159 Borderline high 160-189 High >=190 Very high Patient has high LDL cholesterol. Consider screening for Familial Hypercholesterolemia. Blood Venous blood specimen / Unknown Venipuncture / Unknown 07/05/2024 4:08 PM EDT 07/05/2024 4:08 PM EDT us Gracie Rodrigues [facility] LAB BLOOD ORDERABLES F inal Result [address] [address] documented in this encounter Visit Diagnoses Diagnosis Dyslipidemia, goal LDL below 100 Other and unspecified hyperlipidemia Encounter for long-term (current) use of medications Encounter for long-term (current) use of other medications Enterogastritis Other and unspecified noninfectious gastroenteritis and colitis Dehydration GUTIERREZ (acute kidney injury) (HCC) Acute kidney failure, unspecified Chronic respiratory failure with hypoxia (HCC) Chronic respiratory failure Hypothyroidism, unspecified type Wound infection Posttraumatic wound infection not elsewhere classified Acquired hypothyroidism Unspecified hypothyroidism documented in this [...] Power of Attor elizabeth? No Care Teams Driver Service Technician Relationship Specialty Start Date End Date Ronald Cortes MD PCP - General 06/10/02 documented as of this encounter
--- OUTSIDE RECORDS SUMMARY | 2024-07-09 10:31 | External Medical Summary ---
Author Name Unknown Address Unknown Organization K01:[facility]ORY [facility] [place] [address] [facility] [address] [facility] [address] Laboratory Report Ordering Provider Test Date Status VIPULROSENDOAPARNA 07/05/2024 16:08:15 Final Observation Date Value Abnormality Reference (Units ) Status TSH 07/05/2024 16:08:15 2.69 0.27-4.20 (uIU/mL) Final Performing Location [facility]ATORY [facility] [place] - [address] [facility] [address]
--- OUTSIDE RECORDS SUMMARY | 2024-07-09 10:31 | External Medical Summary | Summary of Care ---
Author Name Unknown Organization [facility] Address [address] [place] [address] Phone [phone] Care Team Providers Care Muffler Mechanic Name Role Phone Ronald Cortes MD Primary Care Provider [phone] Reason for Visit * Reason Onset Date Comments FYI 06/14/2024 Encounter Details Date Type Department Care Team (Late st Contact Info) Description 06/14/2024 Telephone [facility] [address] [facility] [place] [address] Ronald Cortes MD [address] [place], [place] [id number] FYI Allergies Active Allergy Reactions Criticality Noted Date Comments Bee Venom Anaphylaxis High 02/27/2006 Doxycycline Low 08/04/2023 Intolerant, GI upset documented as of this encounter (statuses as of 06/18/2024) Medications CALCIUM + D 600-200 MG-UNIT PO TABS 1 BID 0 03/13/20 06 Active MULTIVITAMINS PO TABS daily 0 03/13/20 06 Active ACETAMINOPHEN 325 MG PO TABSIndications:IN TERFACED RESULT,Pneumothora x 2 Tab Oral Every 6 hours as needed for fever, pain, headache 1 Tab 0 07/28/19 14 Active [place]-3 Fatty Acids (FISH OIL) 1000 MG Capsule [...] 54 g 3 02/08/20 24 Active Tiotropium [place] Monohydrate 18 MCG Inhalation Capsule (Spiriva HandiHaler) Inhale 1 Capsule by mouth in the morning. INHALE THE CONTENTS OF 1 CAPSULE EVERY DAY VIA HANDIHALER (DO NOT SWALLOW). 90 Capsule 3 02/08/20 24 Active Carvedilol 3.125 MG Oral Tablet (Coreg) Take 1 Tablet by mouth 2 times a day with morning and evening meals. 03/08/20 24 Active Cefuroxime Axetil 250 MG Oral Tablet (Ceftin) Take 1 Tablet by mouth in the morning and 1 Tablet before bedtime. 03/08/20 24 Active Losartan Potassium 25 MG Oral Tablet (Cozaar) Take 1 Tablet by mouth in the morning. 03/08/20 24 Active traZODone HCl 50 MG Oral Tablet (Desyrel)Indicatio ns:Sleep disorder TAKE 1 TO 2 TABLETS BEFORE BEDTIME. 180 Tablet 1 05/23/19 25 Active Hospital, Clinic, or Other Facility Administered [...] as of this encounter (statuses as of 06/18/2024) Active Problems Problem Noted Date Diagnosed Date History of atrial fibrillation 02/08/2024 Gait difficulty 02/08/2024 Chronic respiratory failure with hypoxia 024 COPD, group B, by GOLD 2017 classification 09/20 Overview: Per COPD GOLD Classification Acquired hypothyroidism 07/19/2023 History of coronary angioplasty with insertion o f stent 07/01/2023 Coronary artery disease invo lving [place] coronary artery of [place] heart without angina pectoris 07/01/2023 Hematuria of undiagnosed cause 07/12/2019 Tobacco use disorder 12/21/2017 Chronic nonspecific lung disease 06/16/2017 HTN, goal below 150/90 11/16/2015 Osteoporosis 12/28/2014 Dyslipidemia, goal LDL below 100 06/10/2010 Generalized osteoarthritis of multiple sites 02/2011 GENERALIZED ANXIETY DIS 12/05/2004 COMMON MIGRAINE WITHOUT MENTION OF INTRACTABLE M IGRAINE documented as of this encounter (statuses as of 06/18/2024) Resolved Problems Problem Noted Date Diagnosed Date [...] as of this encounter (statuses as of 06/18/2024) Immunizations Name Administration Dates Next Due COVID-19, [...] file Not on file Not on file Merchandise Complaint Adjuster Not on file Not on file Not [...] encounter Miscellaneous Notes * Telephone Encounter - Traci Lemons OSA - 06/14/2024 11:51 AM EST Deann from [facility] calling in she went in to wound care on pt left elbow and when Deann wentin the pt has bedbugs she they need to suspend services till its treated and Pt also did cancel wound appt yesterday.Deann is just calling in to let office know. documented in this encounter Plan of Treatment Upcoming Encounters Date Type Department Care Team (Late st Contact Info) Description 07/13/2024 3:30 PM EDT Imaging Radiology [facility] [address] [place] [phone] Scheduled Procedures Name Priority Associated Diagnoses Date/Ti me COLONOSCOPY FLEXIBLE PROXIMA L DIAGNOSTIC Recall Encounter for screening colonoscopy Health Maintenance Due Date Last Done Comments DISCUSS TOBACCO CESSATION (REFER TO SMARTSET #8512) 1950 Alpha-1 Antitrypsin 1967 Zoster Vaccines (2 of 3) 03/19/2012 01/23/2012 Adult Wellness Visit 2015 DXA Scan 12/27/2016 12/27/2014, 03/13, 03/29/2007, Additional history exists COVID-19 Vaccine ( season) 2024 02/08/2024, 03/08/2021, 02/07/2021 Depression Screening 10/08/2024 10/09/2023 TSH 10/08/2024 10/09/2023, 03/, 08/08/2013, Additional history exists O2 ASSESSMENT COMPLETED IN PAST YEAR FOR COPD 02/07/2025 02/08/2024 GFR 05/09/2025 05/09/2024, 01/0 04/2024, 04/13/2024, Additional history exists Albumin/Creatinine Ratio 08/15/2025 08/15/2022 DTap/Tdap Vaccines (3 - Td or Tdap) 09/13/2031 09/12/2021, 06/10/2010, 07/16/1999 VITAMIN D LEVEL ONCE IN A LIFETIME-USE SMARTSET# [id number] Completed 03/22/2015 Pneumococcal Vaccine: 50+ Years Completed 12/31/2016, 11/17/2014, 06/10/2010 Fecal Occult Blood Test Discontinued 04/23/19, 12/21/2000, 10/31/1999 Colonoscopy Discontinued 06/02/2017, 04/12/2007 Colorectal [...] this encounter Medical Devices Implanted Type Area Transitions Rn Care Coordinator Device Identifier Shelf Expiration Date Model / Serial / Lot Chip Cancellous 5cc [id number] - [id number] Implanted:Qty: 1 on 08/08/2013 [place] [facility] [place] - Human Left: Foot MUSCULOSKELETAL TRANSPLANT FND 07/24/2015 [id number] / [id number] / Screw Nonlock 3.5 X 24 - [id number] Implanted:Qty: 1 on 08/08/2013 [place] [facility] [place] Left: Foot ORTHOHELIX SURGICAL DESIGNS KILN MECHANIC-011-3 5-24 / / Screw Locking 3.5 X 16 - [id number] Implanted:Qty: 2 on 08/08/2013 [place] [facility] [place] Left: Foot ORTHOHELIX SURGICAL DESIGNS KILN MECHANIC-021-3 5-16 / / Plate 6 Hole Beta Mxl-0026 - [id number] Implanted:Qty: 1 on 08/08/2013 [place] [facility] [place] Left: Foot ORTHOHELIX SURGICAL DESIGNS MXL-0026 / / Screw Locking 3.5 X 20 - [id number] Implanted:Qty: 1 on 08/08/2013 at [place] [facility] [place] Left: Foot ORTHOHELIX SURGICAL DESIGNS KILN MECHANIC-021-3 5-20 / / Screw Nonlock 3.5 X 16 - [id number] Implanted:Qty: 1 on 08/08/2013 at [place] [facility] [place] Left: Foot ORTHOHELIX SURGICAL DESIGNS KILN MECHANIC-011-3 5-16 / / Screw Nonlock 3.5 X 18 - [id number] Implanted:Qty: 1 on 08/08/2013 at [place] [facility] [place] Left: Foot ORTHOHELIX SURGICAL DESIGNS KILN MECHANIC-011-3 5-18 / / Screw Nonlock 3.5 X 14 - [id number] Implanted:Qty: 1 on 08/08/2013 at [place] [facility] [place] Left: Foot ORTHOHELIX SURGICAL DESIGNS KILN MECHANIC-011-3 5-14 / / 4.0 X 3.0 [...] / / [place] Gold 4.0 - [id number] Implanted:Qty: 1 on 08/08/2013 at [place] [facility] [place] Left: Foot ORTHOHELIX SURGICAL DESIGNS CSS-500-4 0A / / Plate Lps Alpha 2 Slot - [id number] Implanted:Qty: 1 on 08/08/2013 at [place] [facility] [place] Left: Foot ORTHOHELIX SURGICAL DESIGNS MXL-002-2 A / / Screw Variable 3.5 X 12mm - [id number] Implanted:Qty: 1 on 08/08/2013 at [place] [facility] [place] Left: Foot ORTHOHELIX SURGICAL DESIGNS RAKESH-031-3 5-12 / / Screw Variable 3.5 X 18mm - [id number] Implanted:Qty: 1 on 08/08/2013 at [facility] [...] Power of Attor elizabeth? No Care Teams Muffler Mechanic Relationship Specialty Start Date End Date Ronald Cortes MD PCP - General 06/10/02 documented as of this encounter
--- OUTSIDE RECORDS SUMMARY | 2024-07-09 10:31 | External Medical Summary | Summary of Care ---
Author Name Unknown Organization [facility] Address [address] [place] [address] Phone [phone] Care Team Providers Care Typists Supervisor Name Role Phone Ronald Cortes MD Primary Care Provider [phone] Reason for Visit * Reason Comments Follow Up Pt here for follow u p visit from being in the rehab Encounter Details Date Type Department Care Team (Late st Contact Info) Description 07/05/2024 3:00 PM EDT Office Visit [facility] [address] [place] [address] Marcelino Prado MD [address] [place] [address] Wound infection*; Closed fracture of distal end of left humerus, unspecified fracture morphology, initial encounter; S/P ORIF (open reduction internal fixation) fracture; COPD, group B, by GOLD 2017 classification ([facility]); Tobacco use disorder; Acquired hypothyroidism; Chronic respiratory failure with hypoxia ([facility]); History of coronary angioplasty with insertion of stent; Coronary artery disease involving agdaagux coronary artery of agdaagux heart without angina pectoris Allergies Active Allergy Reactions Criticality Noted Date Comments Bee Venom Anaphylaxis High 02/27/2006 Doxycycline Low 08/04/2023 Intolerant, GI upset documented as of this encounter (statuses as of 07/07/2024) Medications CALCIUM + D 600-200 MG-UNIT PO TABS 1 BID 0 03/13/20 06 Active MULTIVITAMINS PO TABS daily 0 03/13/20 06 Active ACETAMINOPHEN 325 MG PO TABSIndications:IN TERFACED RESULT,Pneumothora x 2 Tab Oral Every 6 hours as needed for fever, pain, headache 1 Tab 0 07/28/19 14 Active [place]-3 Fatty Acids (FISH OIL) 1000 MG Capsule [...] 54 g 3 02/08/20 24 Active Tiotropium Valier Monohydrate 18 MCG Inhalation Capsule (Spiriva HandiHaler) [...] gone.. 20 Tablet 07/06/19 25 025 Active Cefuroxime Axetil 250 MG Oral Tablet (Ceftin) Take 1 Tablet by mouth in the morning and 1 Tablet before bedtime. 03/08/20 24 025 Discontin ued(Patie nt preferenc e/discont inuation) Hospital, [...] as of this encounter (statuses as of 07/07/2024) Active Problems Problem Noted Date Diagnosed Date History of atrial fibrillation 02/08/2024 Gait difficulty 02/08/2024 Chronic respiratory failure with hypoxia 024 COPD, group B, by GOLD 2017 classification 09/20 Overview: Per COPD GOLD Classification Acquired hypothyroidism 07/19/2023 History of coronary angioplasty with insertion o f stent 07/01/2023 Coronary artery disease invo lving agdaagux coronary artery of agdaagux heart without angina pectoris 07/01/2023 Hematuria of undiagnosed cause 07/12/2019 Tobacco use disorder 12/21/2017 Chronic nonspecific lung disease 06/16/2017 HTN, goal below 150/90 11/16/2015 Osteoporosis 12/28/2014 Dyslipidemia, goal LDL below 100 06/10/2010 Generalized osteoarthritis of multiple sites 02/2011 GENERALIZED ANXIETY DIS 12/05/2004 COMMON MIGRAINE WITHOUT MENTION OF INTRACTABLE M IGRAINE documented as of this encounter (statuses as of 07/07/2024) Resolved Problems Problem Noted Date Diagnosed Date [...] as of this encounter (statuses as of 07/07/2024) Immunizations Name Administration Dates Next Due COVID-19, [...] 0.6 70.8 Started: 09/02/1973 Smokeless Tobacco: Never Comments:2 ppd. Smoker 08/12 07/04. 5 cpd smoker. 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 Answer Date of Assessment Author No 08/08/2013 9:56 PM EDT Barry Doherty RN * Are you blind or do [...] Barry Doherty RN documented in this encounter Progress Notes * Marcelino Prado MD - 07/05/2024 3:19 PM EDT Images from the original note were not included. Subjective Kae Johnston is a 74 year old female. Chief Complaint Patient presents with Follow Up Pt here for follow up visit from being in the rehab HPI: Text in this note was generated using an ambient documentation service. I discussed the use of a device to record and summarize our discussion today. All persons present during the encounter consented to its use f/u on her delayed healing of lt distal humerus fracture ( left elbow ) Sustained on may 02 and was at rehab for about 2 months Text in this note was generated using an ambient documentation service. I discussed the use of a device to record and summarize our discussion today. All persons present during the encounter consented to its use History of Present Illness The patient, with a history of a t distal humerus fracture that required surgical intervention, presents with ongoing issues of infection at the surgical site. The surgery, which took place about a month ago, involved the placement of a valerie. Despite this intervention, the patient reports that the site has been continuously infected and has recently started oozing again. The patient has a history of smoking, although she reports that she does not smoke often. She also has a history of coronary artery disease and has had two stents placed in the past. She is currently on medication for thyroid issues. O2 3 L for her known chronic respiratory failure, COPD Still smoking - poor wound healing Refilled her inhalers Known [place], CAD, stent, hx of afib, ( no PE), HTN, HL PMH: Patient Active Problem List Diagnosis GENERALIZED ANXIETY DIS COMMON MIGRAINE WITHOUT MENTION OF INTRACTABLE MIGRAINE Generalized osteoarthritis of multiple sites Dyslipidemia, goal LDL below 100 Osteoporosis HTN, goal below 150/90 Chronic nonspecific lung disease Tobacco use disorder Hematuria of undiagnosed cause History of coronary angioplasty with insertion of stent Coronary artery disease involving agdaagux coronary artery of agdaagux heart without angina pectoris Acquired hypothyroidism COPD, group B, by GOLD 2017 classification ([facility]) History of atrial fibrillation Gait difficulty Chronic respiratory failure with hypoxia ([facility]) Current Outpatient Medications Medication Sig Dispense Refill CALCIUM + D 600-200 MG-UNIT PO TABS 1 BID 0 MULTIVITAMINS PO TABS daily 0 ACETAMINOPHEN 325 MG PO TABS 2 Tab Oral Every 6 hours as needed for fever, pain, headache 1 Tab 0 Magnesium Oxide 400 MG Oral Tablet Take 1 Tablet by mouth in the morning. 90 Tablet 3 Estradiol 0.1 MG/GM Vaginal Cream (Estrace) Apply pea sized amount (0.5 gm) vaginally twice a week at bedtime 42.5 g 3 Econazole Nitrate 1 % [...] 1 Tablet before bedtime. 180 Tablet 2 Alendronate Sodium 70 MG Oral Tablet (Fosamax) [...] EVERY DAY IN THE MORNING 90Tablet 0 Nitroglycerin 0.4 MG Sublingual Tablet Sublingual (Nitrostat) Place 1 Tablet under the tongue every5 minutes as needed for Pain, Chest. Incruse Ellipta 62.5 MCG/ACT Inhalation Aerosol Powder Breath Activated Pantoprazole Sodium 40 MG Oral Tablet Delayed Release (Protonix) Take 1 Tablet by mouth in the morning. 90 Tablet 3 Albuterol Sulfate HFA 108 (90 Base) MCG/ACT Inhalation Aerosol Solution Inhale 2 Puffs by mouth every 4 hours as needed for Wheezing or Cough. 54 g 3 Tiotropium Valier Monohydrate 18 MCG Inhalation Capsule (Spiriva HandiHaler) Inhale 1 Capsule by mouth in the morning. INHALE THE CONTENTS OF 1 CAPSULE EVERY DAY VIA HANDIHALER (DO NOT SWALLOW). 90 Capsule 3 Carvedilol 3.125 MG Oral Tablet (Coreg) Take 1 Tablet by mouth 2 times a day with morning and evening meals. Losartan Potassium 25 MG Oral Tablet (Cozaar) Take 1 Tablet by mouth in the morning. traZODone HCl 50 MG Oral Tablet (Desyrel) TAKE 1 TO 2 TABLETS BEFORE BEDTIME. 180 Tablet 1 Sulfamethoxazole-Trimethoprim 800-160 MG Oral Tablet (Bactrim DS) Take 1 Tablet by mouth in the morning and 1 Tablet before bedtime. Do all this for 10 days. Until gone.. 20 Tablet 0 [place]-3 Fatty Acids (FISH OIL) 1000 MG Capsule 1 Capsule in the morning. (Patient not taking: Reported on 07/05/2024) TO GO ondansetron ODT (ZOFRAN ODT) 4 MG Orally Disintegrated Tablet 1 tab every 8 hrs as needed fornausea (Patient not taking: Reported on 07/05/2024) 30 Each 3 Eliquis 5 MG Oral Tablet (Apixaban) TAKE 1 TABLET BY MOUTH IN THE MORNING AND BEFORE BEDTIME 180 Tablet 3 predniSONE 20 MG Oral Tablet (Deltasone) (Patient not taking: Reported on 07/05/2024) Current Facility-Administered Medications Medication Dose Route Frequency [...] performed by Dk Hernandez MD [place] [facility] [place]ONOSCOPY, DIAGNOSTIC (RECTUM) 03/19 normal, repeat 5-10 years COLONOSCOPY, DIAGNOSTIC (RECTUM) 06/02/2017 normal, repeat 10 yrs/[facility] DRAIN FOOT BONE LESION ganglion cyst EXPLORATION OF ABDOMEN 07/20/2013 EXPLORATORY LAPAROTOMY performed by Tanya Hannon MD at [place] [facility] [place] FUSION OF MIDFOOT JOINT 08/08/2013 MIDTARSAL ARTHRODESIS SINGLE JOINT performed by Dk Hernandez MD at [place] [facility] [place]AGING, CARDIAC CATHETERIZATION 02/16 mild non occulsive [...] Occupational History Comment: unemployed-caring for mother 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 Smoker 09/03/23. 5 cpd smoker. 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 Negative for appetite change, chills, diaphoresis, fever and unexpected weight change. Respiratory: Positive for cough, chest tightness and shortness of breath. Negative for wheezing. Cardiovascular: Negative for chest pain, palpitations and leg swelling. Musculoskeletal: Positive for arthralgias and back pain. Skin: Positive for wound (lt elbow, open shallow wound, discharge). Neurological: Positive for weakness and numbness. Psychiatric/Behavioral: Positive for dysphoric mood and sleep disturbance. Negative for agitation and behavioral problems. The patient is nervous/anxious. Objective BP 85/68 | Pulse 96 | Temp 98.6 °F (37 °C) (Tympanic) | Resp 20 | Wt 96 lb 14.4 oz (44 kg) | BMI 18.31 kg/m² | BSA 1.38 m² Physical Exam Constitutional: General: She is not in acute distress. Appearance: Normal appearance. She is not ill-appearing, toxic-appearing or diaphoretic. HENT: Head: Normocephalic and atraumatic. Pulmonary: Effort: Respiratory distress present. Comments: O2 3L Musculoskeletal: General: Tenderness present. No swelling. Skin: Findings: Erythema and lesion present. Comments: Lt elbow, open wound Neurological: Mental Status: She is alert and oriented to person, place, and time. Psychiatric: Behavior: Behavior normal. ASSESSMENT/PLAN: Wound infection (Primary) - CBC WITH WBC DIFFERENTIAL AND ANEMIA REFLEX WORKUP; Future; Expected date: 07/05/2024 - COMPREHENSIVE METABOLIC PANEL; Future; Expected date: 07/05/2024 - CULTURE, WOUND, SUPERFICIAL, AEROBIC; Future; Expected date: 07/05/2024 - CULTURE, WOUND, SUPERFICIAL, AEROBIC Closed fracture of distal end of left humerus, unspecified fracture morphology, initial encounter S/P ORIF (open reduction internal fixation) fracture COPD, group B, by GOLD 2017 classification ([facility]) Tobacco use disorder Acquired hypothyroidism - TSH WITH FREE T4 IF INDICATED; Future; Expected date: 07/05/2024 Chronic respiratory failure with hypoxia ([facility]) History of coronary angioplasty with insertion of stent Coronary artery disease involving agdaagux coronary artery of agdaagux heart without angina pectoris Other orders - Sulfamethoxazole-Trimethoprim 800-160 MG Oral Tablet (Bactrim DS); Take 1 Tablet by mouth in the morning and 1 Tablet before bedtime. Do all this for 10 days. Until gone.. Assessment & Plan Infected surgical wound Infected wound post-ORIF with valerie placement. Smoking may delay healing. Immediate antibiotics required to prevent progression. Possible valerie removal if infection persists. - Perform wound culture. - Start Bactrim twice daily. - Advise use of non-sticky pads for wound dressing. - Ensure adequate hydration. - Advise smoking cessation. - Schedule follow-up with orthopedics. Coronary artery disease Coronary artery disease managed with two stents and Plavix. Hypothyroidism On thyroid medication, missed dose today. Uncertain about recent prescription. General Health Maintenance Advised probiotics or plain Finnish yogurt during antibiotic course to maintain gut health. - Advise consumption of plain Finnish yogurt or probiotics while on antibiotics. Marcelino Prado MD documented in this encounter Nursing Notes * Natalia Marr LPN - 07/05/2024 3:20 PM EDT Chief Complaint Patient presents with Follow Up Pt here for follow up visit from being in the rehab documented in this encounter Plan of Treatment Upcoming Encounters Date Type Department Care Team (Late st Contact Info) Description 07/13/2024 3:30 PM EDT Imaging Radiology [facility] [address] [place] [phone] Pending Results Name Type Priority Associated Diagnoses Date /Time CULTURE, WOUND, SUPERFICIAL, AEROBIC Lab Routine Wound infection 07/05/2024 3:44 PM EDT Scheduled Procedures Name Priority Associated Diagnoses Date/Ti me COLONOSCOPY FLEXIBLE PROXIMA L DIAGNOSTIC Recall Encounter for screening colonoscopy Health Maintenance Due Date Last Done Comments DISCUSS TOBACCO CESSATION (REFER TO SMARTSET #2340) 1950 Alpha-1 Antitrypsin 1967 Zoster Vaccines (2 [...] D LEVEL ONCE IN A LIFETIME-USE SMARTSET# 16713 Completed 03/22/2015 Pneumococcal Vaccine: 50+ Years Completed [...] this encounter Medical Devices Implanted Type Area Preassembler Printed Circuit Board Device Identifier Shelf Expiration Date Model / Serial / Lot Chip Cancellous [facility] [id number] - [id number] Implanted:Qty: 1 on 08/08/2013 at [place] [facility] [place] Tissue - Human Left: Foot MUSCULOSKELETAL TRANSPLANT FND 07/24/2015 [id number] / [id number] / Screw Nonlock 3.5 X 24 - [id number] Implanted:Qty: 1 on 08/08/2013 [place] [facility] [place] Left: Foot ORTHOHELIX SURGICAL DESIGNS [employer]IS[employer] UNIFIED COMMUNICATIONS ENGINEER-011-3 5-24 / / Screw Locking 3.5 X 16 - [id number] Implanted:Qty: 2 on 08/08/2013 [place] [facility] [place] Left: Foot ORTHOHELIX SURGICAL DESIGNS [employer]ISCO UNIFIED COMMUNICATIONS ENGINEER-021-3 5-16 / / Plate 6 Hole Beta Mxl-0026 - [id number] Implanted:Qty: 1 on 08/08/2013 [place] [facility] [place] Left: Foot ORTHOHELIX SURGICAL DESIGNS MXL-0026 / / Screw Locking 3.5 X 20 - [id number] Implanted:Qty: 1 on 08/08/2013 at [place] [facility] [place] Left: Foot ORTHOHELIX SURGICAL DESIGNS [employer]ISCO UNIFIED COMMUNICATIONS ENGINEER-021-3 5-20 / / Screw Nonlock 3.5 X 16 - [id number] Implanted:Qty: 1 on 08/08/2013 at [place] [facility] [place] Left: Foot ORTHOHELIX SURGICAL DESIGNS CISCO UNIFIED COMMUNICATIONS ENGINEER-011-3 5-16 / / Screw Nonlock 3.5 X 18 - [id number] Implanted:Qty: 1 on 08/08/2013 at [place] [facility] [place] Left: Foot ORTHOHELIX SURGICAL DESIGNS [employer]ISCO UNIFIED COMMUNICATIONS ENGINEER-011-3 5-18 / / Screw Nonlock 3.5 X 14 - [id number] Implanted:Qty: 1 on 08/08/2013 at [place] [facility] [place] Left: Foot ORTHOHELIX SURGICAL DESIGNS CISCO UNIFIED COMMUNICATIONS ENGINEER-011-3 5-14 / / 4.0 X 3.0 Short Max Torque Implanted:Qty: 1 on 08/08/2013 at [place] [facility] [place] Left: Foot ORTHOHELIX SURGICAL DESIGNS MSD-010-4 0-030S / / 4.0 X 32.5 Short Max Torque Implanted:Qty: 1 on 08/08/2013 at [place] [facility] [place] Left: Foot MSD-010-4 0-325S / / 4.0 X 28 Short Max Torque Implanted:Qty: 1 on 08/08/2013 at [place] [facility] [place] Left: Foot ORTHOHELIX SURGICAL DESIGNS MSD-010-4 0-028S / / 4.0 X 22 Short Max Torque Implanted:Qty: 1 on 08/08/2013 at [place] [facility] [place] Left: Foot ORTHOHELIX SURGICAL DESIGNS MSD-010-4 0-022S / / [place] Gold 4.0 - [id number] Implanted:Qty: 1 on 08/08/2013 at [place] [facility] [place] Left: Foot ORTHOHELIX SURGICAL DESIGNS CSS-500-4 0A / / Plate Lps Alpha 2 Slot - [id number] Implanted:Qty: 1 on 08/08/2013 at [place] [facility] [place] Left: Foot ORTHOHELIX SURGICAL DESIGNS MXL-002-2 A / / Screw Variable 3.5 X 12mm - [id number] Implanted:Qty: 1 on 08/08/2013 at [place] [facility] [place] Left: Foot ORTHOHELIX SURGICAL DESIGNS RAKESH-031-3 5-12 / / Screw Variable 3.5 X 18mm - [id number] Implanted:Qty: 1 on 08/08/2013 at [place] [facility] [place] Left: Foot ORTHOHELIX SURGICAL DESIGNS RAKESH-031-3 5-18 / / documented as of this encounter Procedures Procedure Name Priority Date/Time Associated Diagnosis Comments CULTURE, WOUND, SUPERFICIAL, AEROBIC Routine 07/05/2024 3:44 PM EDT Wound infection documented in this encounter Visit Diagnoses Diagnosis Wound infection- Primary Posttraumatic wound infection not elsewhere classified Closed fracture of distal end of left humerus, unspecified fracture morphology, initial encounter S/P ORIF (open reduction internal fixation) fracture Other postprocedural status COPD, group B, by GOLD 2017 classification (HCC) Tobacco use disorder Acquired hypothyroidism Unspecified hypothyroidism Chronic respiratory failure with hypoxia (HCC) Chronic respiratory failure History of coronary angioplasty with insertion of stent Coronary artery disease involving agdaagux coronary artery of agdaagux heart without angina pectoris documented in this encounter Advance Directives * [...] Power of Attor elizabeth? No Care Teams Typists Supervisor Relationship Specialty Start Date End Date Ronald Crotes MD PCP - General 06/10/02 documented as of this encounter"
--- OUTSIDE RECORDS SUMMARY | 2024-07-09 10:31 | External Medical Summary | Summary of Care ---
Author Name Unknown Organization [facility] Address [address] [place] [address] Phone [phone] Care Team Providers Care Vp Biology Name Role Phone Ronald Cortes MD Primary Care Provider [phone] Reason for Visit * Reason Onset Date Comments Advice 02/26/2024 Pre op clearance needed Encounter Details Date Type Department Care Team (Late st Contact Info) Description 02/26/2024 Telephone [facility] DEPT CLOSED - 03/31/24 [address] [place] [address] Ronald Cortes MD [address] [place] [address] Advice (Pre op clearance needed) Allergies Active Allergy Reactions Criticality Noted Date Comments Bee Venom Anaphylaxis High 02/27/2006 Doxycycline Low 08/04/2023 Intolerant, GI upset documented as of this encounter (statuses as of 05/28/2024) Medications CALCIUM + D 600-200 MG-UNIT PO TABS 1 BID 0 006 Active MULTIVITAMINS PO TABS daily 0 006 Active ACETAMINOPHEN 325 MG PO TABSIndications:I NTERFACED RESULT,Pneumothor ax 2 Tab Oral Every 6 hours as needed for fever, pain, headache 1 Tab 0 014 Active [place]-3 Fatty Acids (FISH OIL) 1000 MG Capsule 1 Capsule in the morning. Active TO GO ondansetron ODT (ZOFRAN ODT) 4 MG Orally Disintegrated TabletIndications :Nonspecific colitis 1 tab every 8 hrs as needed for nausea 30 Each 3 Active Additional Information Patient not taking.Reported [...] Active Furosemide 40 MG Oral Tablet (Lasix) Active oxyBUTYnin Chloride ER 5 MG Oral [...] breakfast or other meds). 90 Tablet 3 Active Omeprazole 20 MG Oral Capsule Delayed Release (PriLOSEC)Indicat ions:Gastroesopha geal reflux disease, unspecified whether esophagitis present Take 1 Capsule by mouth in the morning. 1 hour before the first meal of the day.. 90 Capsule 2 024 Active traMADol HCl 50 MG Oral Tablet [...] HOURS NEEDED FOR NAUSEA 20 Tablet 3 024 Active Clopidogrel Bisulfate 75 MG Oral Tablet [...] Active predniSONE 20 MG Oral Tablet (Deltasone) Active Incruse Ellipta 62.5 MCG/ACT Inhalation Aerosol [...] or Cough. 54 g 3 Active Tiotropium [place] Monohydrate 18 MCG Inhalation Capsule (Spiriva HandiHaler) Inhale 1 Capsule by mouth in the morning. INHALE THE CONTENTS OF 1 CAPSULE EVERY DAY VIA HANDIHALER (DO NOT SWALLOW). 90 Capsule 3 Active traZODone HCl 50 MG Oral Tablet [...] as of this encounter (statuses as of 05/28/2024) Active Problems Problem Noted Date Diagnosed Date History of atrial fibrillation 02/08/2024 Gait difficulty 02/08/2024 Chronic respiratory failure with hypoxia 024 COPD, group B, by GOLD 2017 classification 09/20 Overview: Per COPD GOLD Classification Acquired hypothyroidism 07/19/2023 History of coronary angioplasty with insertion o f stent 07/01/2023 Coronary artery disease invo lving [place] coronary artery of [place] heart without angina pectoris 07/01/2023 Hematuria of undiagnosed cause 07/12/2019 Tobacco use disorder 12/21/2017 Chronic nonspecific lung disease 06/16/2017 HTN, goal below 150/90 11/16/2015 Osteoporosis 12/28/2014 Dyslipidemia, goal LDL below 100 06/10/2010 Generalized osteoarthritis of multiple sites 02/2011 GENERALIZED ANXIETY DIS 12/05/2004 COMMON MIGRAINE WITHOUT MENTION OF INTRACTABLE M IGRAINE documented as of this encounter (statuses as of 05/28/2024) Resolved Problems Problem Noted Date Diagnosed Date [...] as of this encounter (statuses as of 05/28/2024) Immunizations Name Administration Dates Next Due COVID-19, [...] Not on file Not on file 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 She is calling to ask if pt has been cleared for cataract surgery? Pt's surgery is scheduled 03/23/24. Will need clearance letter and office notes faxed to [phone]. Pt's last appt was 02/07 for HD and has upcoming appt scheduled for 03/09. documented in this encounter Plan of Treatment Upcoming Encounters Date Type Department Care Team (Late st Contact Info) Description 06/07/2024 8:30 AM EST Office Visit Cardiology, [facility] [address] [place] [address] [place]pe Lennon, [address] [place] [address] 07/13/2024 3:30 PM EDT Imaging Radiology [facility] [address] [place] [phone] Scheduled Procedures Name Priority Associated Diagnoses Date/Ti me COLONOSCOPY FLEXIBLE PROXIMA L DIAGNOSTIC Recall Encounter for screening colonoscopy Health Maintenance Due Date Last Done Comments DISCUSS TOBACCO CESSATION (REFER TO SMARTSET #2209) 1950 Alpha-1 Antitrypsin 1967 Zoster Vaccines (2 [...] D LEVEL ONCE IN A LIFETIME-USE SMARTSET# 57636 Completed 03/22/2015 Pneumococcal Vaccine: 50+ Years Completed [...] this encounter Medical Devices Implanted Type Area Housing Management Representative Device Identifier Shelf Expiration Date Model / Serial / Lot Chip Cancellous c [id number] - [id number] Implanted:Qty: 1 on 08/08/2013 at [place] [facility] [place] Tissue - Human Left: Foot MUSCULOSKELETAL TRANSPLANT FND 07/24/2015 [id number] / [id number] / Screw Nonlock 3.5 X 24 - [id number] Implanted:Qty: 1 on 08/08/2013 at OR [facility] [place] Left: Foot ORTHOHELIX SURGICAL DESIGNS INVESTMENT ASSOCIATE-011-3 5-24 / / Screw Locking 3.5 X 16 - [id number] Implanted:Qty: 2 on 08/08/2013 at OR [facility] [place] Left: Foot ORTHOHELIX SURGICAL DESIGNS INVESTMENT ASSOCIATE-021-3 5-16 / / Plate 6 Hole Beta Mxl-0026 - [id number] Implanted:Qty: 1 on 08/08/2013 at OR [facility] [place] Left: Foot ORTHOHELIX SURGICAL DESIGNS MXL-0026 / / Screw Locking 3.5 X 20 - [id number] Implanted:Qty: 1 on 08/08/2013 at OR [facility] [place] Left: Foot ORTHOHELIX SURGICAL DESIGNS INVESTMENT ASSOCIATE-021-3 5-20 / / Screw Nonlock 3.5 X 16 - [id number] Implanted:Qty: 1 on 08/08/2013 at OR [facility] [place] Left: Foot ORTHOHELIX SURGICAL DESIGNS INVESTMENT ASSOCIATE-011-3 5-16 / / Screw Nonlock 3.5 X 18 - [id number] Implanted:Qty: 1 on 08/08/2013 at OR [facility] [place] Left: Foot ORTHOHELIX SURGICAL DESIGNS INVESTMENT ASSOCIATE-011-3 5-18 / / Screw Nonlock 3.5 X 14 - [id number] Implanted:Qty: 1 on 08/08/2013 at OR [facility] [place] Left: Foot ORTHOHELIX SURGICAL DESIGNS INVESTMENT ASSOCIATE-011-3 5-14 / / 4.0 X 3.0 Short Max Torque Implanted:Qty: 1 on 08/08/2013 at OR [facility] [place] Left: Foot ORTHOHELIX SURGICAL DESIGNS MSD-010-4 0-030S / / 4.0 X 32.5 Short Max Torque Implanted:Qty: 1 on 08/08/2013 at OR [facility] [place] Left: Foot MSD-010-4 0-325S / / 4.0 X 28 Short Max Torque Implanted:Qty: 1 on 08/08/2013 at OR [facility] [place] Left: Foot ORTHOHELIX SURGICAL DESIGNS MSD-010-4 0-028S / / 4.0 X 22 Short Max Torque Implanted:Qty: 1 on 08/08/2013 at OR [facility] [place] Left: Foot ORTHOHELIX SURGICAL DESIGNS MSD-010-4 0-022S / / [place] Gold 4.0 - [id number] Implanted:Qty: 1 on 08/08/2013 at OR [facility] [place] Left: Foot ORTHOHELIX SURGICAL DESIGNS CSS-500-4 0A / / Plate Lps Alpha 2 Slot - [id number] Implanted:Qty: 1 on 08/08/2013 at OR [facility] [place] Left: Foot ORTHOHELIX SURGICAL DESIGNS MXL-002-2 A / / Screw Variable 3.5 X 12mm - [id number] Implanted:Qty: 1 on 08/08/2013 at OR [facility] [place] Left: Foot ORTHOHELIX SURGICAL DESIGNS RAKESH-031-3 5-12 / / Screw Variable 3.5 X 18mm - [id number] Implanted:Qty: 1 on 08/08/2013 at OR [facility] [place] Left: Foot ORTHOHELIX SURGICAL DESIGNS RAKESH-031-3 5-18 [...] Power of Attor elizabeth? No Care Teams Vp Biology Relationship Specialty Start Date End Date Ronald Cortes MD PCP - General 06/10/02 documented as of this encounter
--- OUTSIDE RECORDS SUMMARY | 2024-07-09 10:31 | External Medical Summary | Summary of Care ---
Author Name Unknown Organization [facility] Address [address] [place] [address] Phone [phone] Care Team Providers Care Monorail Operator Name Role Phone Ronald Cortes MD Primary Care Provider Encounter Details Date Type Department Care Team (Late st Contact Info) Description 05/09/2024 Result Scan Unspecified Department <No scans attached> Allergies Active Allergy Reactions Criticality Noted Date Comments Bee Venom Anaphylaxis High 02/27/2006 Doxycycline Low 08/04/2023 Intolerant, GI upset documented as of this encounter (statuses as of 05/16/2024) Medications CALCIUM + D 600-200 MG-UNIT PO TABS 1 BID 0 03/13/20 06 Active MULTIVITAMINS PO TABS daily 0 03/13/20 06 Active ACETAMINOPHEN 325 MG PO TABSIndications:IN TERFACED RESULT,Pneumothora x 2 Tab Oral Every 6 hours as needed for fever, pain, headache 1 Tab 0 07/28/19 14 Active [place]-3 Fatty Acids (FISH OIL) 1000 MG Capsule [...] Cough. 54 g 3 02/08/20 Active Tiotropium [place] Monohydrate 18 MCG Inhalation Capsule (Spiriva HandiHaler) [...] as of this encounter (statuses as of 05/16/2024) Active Problems Problem Noted Date Diagnosed Date History of atrial fibrillation 02/08/2024 Gait difficulty 02/08/2024 Chronic respiratory failure with hypoxia 024 COPD, group B, by GOLD 2017 classification 09/20 Overview: Per COPD GOLD Classification Acquired hypothyroidism 07/19/2023 History of coronary angioplasty with insertion o f stent 07/01/2023 Coronary artery disease invo lving [place] coronary artery of [place] heart without angina pectoris 07/01/2023 Hematuria of undiagnosed cause 07/12/2019 Tobacco use disorder 12/21/2017 Chronic nonspecific lung disease 06/16/2017 HTN, goal below 150/90 11/16/2015 Osteoporosis 12/28/2014 Dyslipidemia, goal LDL below 100 06/10/2010 Generalized osteoarthritis of multiple sites 02/2011 GENERALIZED ANXIETY DIS 12/05/2004 COMMON MIGRAINE WITHOUT MENTION OF INTRACTABLE M IGRAINE documented as of this encounter (statuses as of 05/16/2024) Resolved Problems Problem Noted Date Diagnosed Date [...] as of this encounter (statuses as of 05/16/2024) Immunizations Name Administration Dates Next Due COVID-19, [...] file Not on file Not on file 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 Not on file Not on file Not [...] 2:00 PM EST Office Visit Pulmonary Medicine, [facility] [address] [place] [address] Marbin Serrano MD [address] [place] [phone] 06/07/2024 8:30 AM EST Office Visit Cardiology, [facility] [address] [place] [address] Pepe Lennon DO [address] [place] [address] 07/13/2024 3:30 PM EDT Imaging Radiology [facility] [address] [place] [phone] Scheduled Procedures Name Priority Associated Diagnoses Date/Ti [...] D LEVEL ONCE IN A LIFETIME-USE SMARTSET# 91934 Completed 03/22/2015 Pneumococcal Vaccine: 50+ Years Completed [...] this encounter Medical Devices Implanted Type Area Counter Intelligence Agent Device Identifier Shelf Expiration Date Model / Serial / Lot Chip Cancellous 5cc 973649 - [id number] Implanted:Qty: 1 on 08/08/2013 at [place] [facility] [place] Tissue - Human Left: Foot MUSCULOSKELETAL TRANSPLANT FND 07/24/2015 [id number] / [id number] / Screw Nonlock 3.5 X 24 - [id number] Implanted:Qty: 1 on 08/08/2013 at [place] [facility] [place] Left: Foot ORTHOHELIX SURGICAL DESIGNS ELASTIC TAPE INSERTER-011-3 5-24 / / Screw Locking 3.5 X 16 - [id number] Implanted:Qty: 2 on 08/08/2013 at [place] [facility] [place] Left: Foot ORTHOHELIX SURGICAL DESIGNS ELASTIC TAPE INSERTER-021-3 5-16 / / Plate 6 Hole Beta Mxl-0026 - [id number] Implanted:Qty: 1 on 08/08/2013 at [place] [facility] [place] Left: Foot ORTHOHELIX SURGICAL DESIGNS MXL-0026 / / Screw Locking 3.5 X 20 - [id number] Implanted:Qty: 1 on 08/08/2013 at [place] [facility] [place] Left: Foot ORTHOHELIX SURGICAL DESIGNS ELASTIC TAPE INSERTER-021-3 5-20 / / Screw Nonlock 3.5 X 16 - [id number] Implanted:Qty: 1 on 08/08/2013 at [place] [facility] Left: Foot ORTHOHELIX SURGICAL DESIGNS ELASTIC TAPE INSERTER-011-3 5-16 / / Screw Nonlock 3.5 X 18 - [id number] Implanted:Qty: 1 on 08/08/2013 at [place] [facility] [place] Left: Foot ORTHOHELIX SURGICAL DESIGNS ELASTIC TAPE INSERTER-011-3 5-18 / / Screw Nonlock 3.5 X 14 - [id number] Implanted:Qty: 1 on 08/08/2013 at [place] [facility] [place] Left: Foot ORTHOHELIX SURGICAL DESIGNS ELASTIC TAPE INSERTER-011-3 5-14 / / 4.0 X 3.0 Short [...] / / [place] Gold 4.0 - [id number] Implanted:Qty: 1 on 08/08/2013 at [place] [facility] Left: Foot ORTHOHELIX SURGICAL DESIGNS CSS-500-4 0A / / Plate Lps Alpha 2 Slot - [id number] Implanted:Qty: 1 on 08/08/2013 at [place] [facility] Left: Foot ORTHOHELIX SURGICAL DESIGNS MXL-002-2 A / / Screw Variable 3.5 X 12mm - [id number] Implanted:Qty: 1 on 08/08/2013 at [place] [facility] Left: Foot ORTHOHELIX SURGICAL DESIGNS RAKESH-031-3 5-12 / / Screw Variable 3.5 X 18mm - [id number] Implanted:Qty: 1 on 08/08/2013 at [place] [facility] [place] Left: Foot ORTHOHELIX SURGICAL DESIGNS RAKESH-031-3 5-18 / / documented as of this encounter Procedures Procedure Name Priority Date/Time Associated Diagnosis Comments OUTSIDE LAB RESULTS 05/09/2024 documented in this encounter Results * OUTSIDE LAB RESULTS (05/09/2024) 05/09/2024 us No Physician Data Unknown LABORATORY Final Result documented in this encounter Advance [...] Power of Attor elizabeth? No Care Teams Monorail Operator Relationship Specialty Start Date End Date Ronald Cortes MD PCP - General 06/10/02 documented as of this encounter
--- OUTSIDE RECORDS SUMMARY | 2024-07-09 10:31 | External Medical Summary ---
Author Name Unknown Address Unknown Organization [id number]:LABORATORY [facility] [place] - [address] [place] [id number] Laboratory Report Ordering Provider Test Date Status APARNA GARCIA 07/05/2024 15:44:37 Final Observation Date Value Abnormality Reference (Units ) Status Bacteria identified in Specimen by Culture 07/05/2024 15:44:37 Moderate growth normal hans Final Test: Culture, Wound, Superf icial, Aerobic
Specimen Source: Elbow, Left
Specimen Type: Superficial Wound
Specimen Date: 07/05/2024 1544
Result Date: 07/07/2024 1519
Result Status: Final result
Resulting Lab: LABORATORY [facility]
[address]
[place] [id number]

CULTURE

Moderate growth normal hans

null Performing Location LABORATORY [facility] - [address] [facility] [address]
--- OUTSIDE RECORDS SUMMARY | 2024-07-09 10:31 | External Medical Summary ---
Author Name Unknown Address Unknown Organization [id number][place] [facility] [place] [address] [facility] [address] Laboratory Report Ordering Provider Test Date Status SAGRARIO ARCHER 07/05/2024 16:08:15 Final Observation Date Value Abnormality Reference (Units ) Status Triglyceride 07/05/2024 16:08:15 94 <=174 ( mg/dL) Final Triglyceride Reference Range s (mg/dL):
<150 Acceptable
150-174 Borderline high
175-499 High
>=500 Very high Cholesterol 07/05/2024 16:08:15 121 <200 (mg /dL) Final Total Cholesterol Reference Ranges (mg/dL):
<200 Desirable
200-239 Borderline high
>=240 High HDL 07/05/2024 16:08:15 50 >49 (mg/dL ) Final HDL Cholesterol Reference Ra nges (mg/dL):
>=60 High (Desirable)
<50 Low (Undesirable) For Females
<40 Low (Undesirable) For Males NON-HDL CHOLESTEROL 07/05/2024 16:08:15 71 <=159 (mg/dL) Final Non-HDL Cholesterol Referenc e Range (mg/dL):
<100 Target level for high risk ASCVD patient
<130 Optimal for general population
130-159 Near optimal for general population
160-189 Borderline High
190-219 High
>=220 Very High LDL, (calculated) 07/05/2024 16:08:15 52 <= 129 (mg/dL) Final LDL Cholesterol Reference Ra nges (mg/dL):
<70 Target level for high risk ASCVD patient
<100 Optimal for general population
100-129 Near optimal for general population
130-159 Borderline high
160-189 High
>=190 Very high
Patient has high LDL cholesterol. Consider screening for Familial Hypercholesterolemia. Performing Location [facility] [facility] [place] [address] [facility] [id number]
--- OUTSIDE RECORDS SUMMARY | 2024-07-09 10:32 | External Medical Summary | Summary of Care ---
Author Name Unknown Organization [facility] Address [address] [place] [address] Phone [phone] Care Team Providers Care Bakery Technician Name Role Phone Ronald Cortes MD Primary Care Provider [phone] Encounter Details Date Type Department Care Team (Late st Contact Info) Description 05/04/2024 Orders Only [facility] [address] [place] [address] Ronald Cortes MD [address] [place] [address] Allergies Active Allergy Reactions Criticality Noted Date Comments Bee Venom Anaphylaxis High 02/27/2006 Doxycycline Low 08/04/2023 Intolerant, GI upset documented as of this encounter (statuses as of 05/04/2024) Medications CALCIUM + D 600-200 MG-UNIT PO TABS 1 BID 0 03/13/20 06 Active MULTIVITAMINS PO TABS daily 0 03/13/20 06 Active ACETAMINOPHEN 325 MG PO TABSIndications:IN TERFACED RESULT,Pneumothora x 2 Tab Oral Every 6 hours as needed for fever, pain, headache 1 Tab 0 07/28/19 14 Active [place]-3 Fatty Acids (FISH OIL) 1000 MG Capsule [...] Cough. 54 g 3 02/08/20 Active Tiotropium [place] Monohydrate 18 MCG Inhalation Capsule (Spiriva HandiHaler) [...] as of this encounter (statuses as of 05/04/2024) Active Problems Problem Noted Date Diagnosed Date History of atrial fibrillation 02/08/2024 Gait difficulty 02/08/2024 Chronic respiratory failure with hypoxia 024 COPD, group B, by GOLD 2017 classification 09/20 Overview: Per COPD GOLD Classification Acquired hypothyroidism 07/19/2023 History of coronary angioplasty with insertion o f stent 07/01/2023 Coronary artery disease invo lving [place] coronary artery of [place] heart without angina pectoris 07/01/2023 Hematuria of undiagnosed cause 07/12/2019 Tobacco use disorder 12/21/2017 Chronic nonspecific lung disease 06/16/2017 HTN, goal below 150/90 11/16/2015 Osteoporosis 12/28/2014 Dyslipidemia, goal LDL below 100 06/10/2010 Generalized osteoarthritis of multiple sites 02/2011 GENERALIZED ANXIETY DIS 12/05/2004 COMMON MIGRAINE WITHOUT MENTION OF INTRACTABLE M IGRAINE documented as of this encounter (statuses as of 05/04/2024) Resolved Problems Problem Noted Date Diagnosed Date [...] as of this encounter (statuses as of 05/04/2024) Immunizations Name Administration Dates Next Due COVID-19, [...] file Not on file Not on file Collet Driller Not on file Not on file Not [...] Care Team (Late st Contact Info) Description 05/16/2024 8:50 AM EST Office Visit Ophthalmology, [facility] [address] [facility] [address] [place] [address] Hitesh Gordillo, DO [address] [place] [address] 05/23/2024 2:00 PM EST Office Visit Pulmonary Medicine, [facility] [address] [facility] [place] [address] Marbin Serrano MD [address] [place] [address] 06/07/2024 8:30 AM EST Office Visit Cardiology, [facility] [address] [facility] [place] [address] Pepe Lennon, [address] [facility] [place] [address] 07/13/2024 3:30 PM EDT Imaging Radiology [facility] [address] [facility] [place] [id number] Scheduled Procedures Name Priority Associated Diagnoses Date/Ti me COLONOSCOPY FLEXIBLE PROXIMA L DIAGNOSTIC Recall Encounter for screening colonoscopy Health Maintenance Due Date Last Done Comments DISCUSS TOBACCO CESSATION (REFER TO SMARTSET #6849) 1950 Alpha-1 Antitrypsin 1967 Cologuard 1994 Sigmoidoscopy 1994 Zoster Vaccines (2 of 3) 03/19/2012 01/23/2012 Adult Wellness Visit 2015 DXA Scan 12/27/2016 12/27/2014, 03/13, 03/29/2007, Additional history exists Fecal Occult Blood Test 04/23/2018 04/23/19 18, 12/21/2000, 10/31/1999 Depression Screening 10/08/2024 10/09/2023 Mammogram 10/08/2024 07/22/2012, 07/12, 07/18/2010, Additional history exists Postponed from 07/22/2013 (Patient Declined After Education) TSH 10/08/2024 10/09/2023, 06/12, 08/08/2013, Additional history exists O2 ASSESSMENT COMPLETED IN PAST YEAR FOR COPD 02/07/2025 02/08/2024 GFR 04/13/2025 04/13/2024, 01/0 04/2024, 07/01/2023, Additional history exists Albumin/Creatinine Ratio 08/15/2025 08/15/2022 Colonoscopy 06/02/2027 06/02/2017, 04/12/2007 Colorectal Cancer Screening 06/02/2027 DTap/Tdap Vaccines (3 - Td or Tdap) 09/13/2031 09/12/2021, 06/10/2010, 07/16/1999 VITAMIN D LEVEL ONCE IN A LIFETIME-USE SMARTSET# [id number] Completed 03/22/2015 Pneumococcal Vaccine: 50+ Years Completed 12/31/2016, 11/17/2014, 06/10/2010 COVID-19 Vaccine Completed 02/08/2024, , 02/07/2021 Influenza Vaccine (FLU shot) Completed 02/08/2024, 02/08/2024, 03/14/2021, Additional history exists Lung Cancer Screening Completed 05/02/2024 , 04/13/2024, 01/05/2017, Additional history exists HPV (Gardasil) Vaccine Aged Out No lo nger eligible based on patient's age to complete this topic Hepatitis B Vaccine Aged Out No longe r eligible based on patient's age to complete this topic MENINGOCOCCAL (MENACTRA/MENVEO) Aged Out No longer eligible based on patient's age to complete this topic documented as of this encounter Medical Devices Implanted Type Area Lead Web Developer Device Identifier Shelf Expiration Date Model / Serial / Lot Chip Cancellous c [id number] - [id number] Implanted:Qty: 1 on 08/08/2013 at [place] [facility] [place] Tissue - Human Left: Foot MUSCULOSKELETAL TRANSPLANT FND 07/24/2015 [id number] / [id number] / Screw Nonlock 3.5 X 24 - [id number] Implanted:Qty: 1 on 08/08/2013 at [place] [facility] [place] Left: Foot ORTHOHELIX SURGICAL DESIGNS CHILD CUSTODY EVALUATOR-011-3 5-24 / / Screw Locking 3.5 X 16 - [id number] Implanted:Qty: 2 on 08/08/2013 at [place] [facility] [place] Left: Foot ORTHOHELIX SURGICAL DESIGNS CHILD CUSTODY EVALUATOR-021-3 5-16 / / Plate 6 Hole Beta Mxl-0026 - [id number] Implanted:Qty: 1 on 08/08/2013 at [place] [facility] [place] Left: Foot ORTHOHELIX SURGICAL DESIGNS MXL-0026 / / Screw Locking 3.5 X 20 - [id number] Implanted:Qty: 1 on 08/08/2013 at [place] [facility] Left: Foot ORTHOHELIX SURGICAL DESIGNS CHILD CUSTODY EVALUATOR-021-3 5-20 / / Screw Nonlock 3.5 X 16 - [id number] Implanted:Qty: 1 on 08/08/2013 at [place] [facility] Left: Foot ORTHOHELIX SURGICAL DESIGNS CHILD CUSTODY EVALUATOR-011-3 5-16 / / Screw Nonlock 3.5 X 18 - [id number] Implanted:Qty: 1 on 08/08/2013 at [place] [facility] Left: Foot ORTHOHELIX SURGICAL DESIGNS CHILD CUSTODY EVALUATOR-011-3 5-18 / / Screw Nonlock 3.5 X 14 - [id number] Implanted:Qty: 1 on 08/08/2013 at [place] [facility] Left: Foot ORTHOHELIX SURGICAL DESIGNS CHILD CUSTODY EVALUATOR-011-3 5-14 / / 4.0 X 3.0 Short [...] / / [place] Gold 4.0 - [id number] Implanted:Qty: 1 on 08/08/2013 at [place] [facility] Left: Foot ORTHOHELIX SURGICAL DESIGNS CSS-500-4 0A / / Plate Lps Alpha 2 Slot - [id number] Implanted:Qty: 1 on 08/08/2013 at [place] [facility] Left: Foot ORTHOHELIX SURGICAL DESIGNS MXL-002-2 A / / Screw Variable 3.5 X 12mm - [id number] Implanted:Qty: 1 on 08/08/2013 at [place] [facility] Left: Foot ORTHOHELIX SURGICAL DESIGNS RAKESH-031-3 5-12 / / Screw Variable 3.5 X 18mm - [id number] Implanted:Qty: 1 on 08/08/2013 at [place] [facility] Left: Foot ORTHOHELIX SURGICAL DESIGNS RAKESH-031-3 5-18 / / documented as of this encounter Procedures Procedure Name Priority Date/Time Associated Diagnosis Comments CTA CHEST NON-CORONARY W CONTRAST Routine 05/02/2024 documented in this encounter Results * CTA CHEST NON-CORONARY W CONTRAST (05/02/2024) Anatomical Region Laterality Modality Chest, Cardio, Body Other 05/02/2024 us History Per Patient RAD CT Final Result documented in this [...] Power of Attor elizabeth? No Care Teams Bakery Technician Relationship Specialty Start Date End Date Ronald Cortes MD PCP - General 06/10/02 documented as of this encounter
--- OUTSIDE RECORDS SUMMARY | 2024-07-09 10:32 | External Medical Summary | Summary of Care ---
Author Name Unknown Organization [facility] Address [address] [place] [address] Phone [phone] Care Team Providers Care Entry Level Programmer Name Role Phone Ronald Cortes MD Primary Care Provider [phone] Encounter Details Date Type Department Care Team (Late st Contact Info) Description 05/10/2024 Result Scan Unspecified Department <No scans attached> [...] headache 1 Tab 0 07/28/19 14 Active [place]-3 Fatty Acids (FISH OIL) 1000 MG Capsule [...] 54 g 3 02/08/20 Active Tiotropium [place] Monohydrate 18 MCG Inhalation Capsule (Spiriva HandiHaler) [...] stent 07/01/2023 Coronary artery disease invo lving [place] coronary artery of [place] heart without angina pectoris 07/01/2023 Hematuria of [...] file Not on file Not on file 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 [address] [place] [address] Marbin Serrano MD [address] [place] [address] 06/07/2024 8:30 AM EST Office Visit Cardiology, [facility] [address] [place] [address] Pepe Lennon DO [address] [place] [address] 07/13/2024 3:30 PM EDT Imaging Radiology [facility] [address] [place] [phone] Scheduled Procedures Name Priority Associated Diagnoses Date/Ti [...] D LEVEL ONCE IN A LIFETIME-USE SMARTSET# [id number] Completed 03/22/2015 Pneumococcal Vaccine: 50+ Years Completed [...] this encounter Medical Devices Implanted Type Area Manager Fraud Device Identifier Shelf Expiration Date Model / Serial / Lot Chip Cancellous 5cc [id number] - [id number] Implanted:Qty: 1 on 08/08/2013 at OR [facility] [place] Tissue - Human Left: Foot MUSCULOSKELETAL TRANSPLANT FND 07/24/2015 [id number] / [id number] / Screw Nonlock 3.5 X 24 - [id number] Implanted:Qty: 1 on 08/08/2013 at OR [facility] Left: Foot ORTHOHELIX SURGICAL DESIGNS SHEET ROCK SANDER-011-3 5-24 / / Screw Locking 3.5 X 16 - [id number] Implanted:Qty: 2 on 08/08/2013 at OR [facility] Left: Foot ORTHOHELIX SURGICAL DESIGNS SHEET ROCK SANDER-021-3 5-16 / / Plate 6 Hole Beta Mxl-0026 - [id number] Implanted:Qty: 1 on 08/08/2013 at OR [facility] Left: Foot ORTHOHELIX SURGICAL DESIGNS MXL-0026 / / Screw Locking 3.5 X 20 - [id number] Implanted:Qty: 1 on 08/08/2013 at OR [facility] Left: Foot ORTHOHELIX SURGICAL DESIGNS SHEET ROCK SANDER-021-3 5-20 / / Screw Nonlock 3.5 X 16 - [id number] Implanted:Qty: 1 on 08/08/2013 at OR [facility] Left: Foot ORTHOHELIX SURGICAL DESIGNS SHEET ROCK SANDER-011-3 5-16 / / Screw Nonlock 3.5 X 18 - [id number] Implanted:Qty: 1 on 08/08/2013 at OR [facility] Left: Foot ORTHOHELIX SURGICAL DESIGNS SHEET ROCK SANDER-011-3 5-18 / / Screw Nonlock 3.5 X 14 - [id number] Implanted:Qty: 1 on 08/08/2013 at OR [facility] Left: Foot ORTHOHELIX SURGICAL DESIGNS SHEET ROCK SANDER-011-3 5-14 / / 4.0 X 3.0 Short Max Torque Implanted:Qty: 1 on 08/08/2013 at OR [facility] Left: Foot ORTHOHELIX SURGICAL DESIGNS MSD-010-4 0-030S / / 4.0 X 32.5 Short Max Torque Implanted:Qty: 1 on 08/08/2013 at OR [facility] Left: Foot MSD-010-4 0-325S / / 4.0 X 28 Short Max Torque Implanted:Qty: 1 on 08/08/2013 at OR [facility] Left: Foot ORTHOHELIX SURGICAL DESIGNS MSD-010-4 0-028S / / 4.0 X 22 Short Max Torque Implanted:Qty: 1 on 08/08/2013 at OR [facility] Left: Foot ORTHOHELIX SURGICAL DESIGNS MSD-010-4 0-022S / / [place] Gold 4.0 - [id number] Implanted:Qty: 1 on 08/08/2013 at OR [facility] Left: Foot ORTHOHELIX SURGICAL DESIGNS CSS-500-4 0A / / Plate Lps Alpha 2 Slot - [id number] Implanted:Qty: 1 on 08/08/2013 at OR [facility] Left: Foot ORTHOHELIX SURGICAL DESIGNS MXL-002-2 A / / Screw Variable 3.5 X 12mm - [id number] Implanted:Qty: 1 on 08/08/2013 at OR [facility] Left: Foot ORTHOHELIX SURGICAL DESIGNS RAKESH-031-3 5-12 / / Screw Variable 3.5 X 18mm - [id number] Implanted:Qty: 1 on 08/08/2013 at OR [facility] Left: Foot ORTHOHELIX SURGICAL DESIGNS RAKESH-031-3 5-18 / / documented as of this encounter Procedures Procedure Name Priority Date/Time Associated Diagnosis Comments OUTSIDE LAB RESULTS 05/10/2024 documented in this encounter Results * OUTSIDE LAB RESULTS (05/10/2024) 05/10/2024 us No Physician Data Unknown LABORATORY Final [...] Power of Attor elizabeth? No Care Teams Entry Level Programmer Relationship Specialty Start Date End Date Ronald Cortes MD PCP - General 06/10/02 documented as of this encounter
--- OUTSIDE RECORDS SUMMARY | 2024-07-09 10:32 | External Medical Summary | Summary of Care ---
Author Name Unknown Organization [facility] Address [address] [place] [address] Phone [phone] Care Team Providers Care Webmethods Architect Name Role Phone Ronald Cortes MD Primary Care Provider [phone] Encounter Details Date Type Department Care Team (Late st Contact Info) Description 05/04/2024 Orders Only [facility], [facility] [address] [place] [address] Ronald Cortes MD [address] [place] [address] Allergies Active Allergy Reactions Criticality Noted Date [...] headache 1 Tab 0 07/28/19 14 Active [place]-3 Fatty Acids (FISH OIL) 1000 MG Capsule [...] Cough. 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 [address] 05/23/2024 2:00 PM EST Office Visit Pulmonary Medicine, [facility] [address] [facility] [place] [address] Marbin Serrano MD [address] [place] [address] 06/07/2024 8:30 AM EST Office Visit Cardiology, [facility] [address] [facility] [place] [address] Pepe Lennon, [address] [facility] [place] [address] 07/13/2024 3:30 PM EDT Imaging Radiology [facility] [address] [facility] [place] [phone] Scheduled Procedures Name Priority Associated Diagnoses Date/Ti me COLONOSCOPY FLEXIBLE PROXIMA L DIAGNOSTIC Recall Encounter for screening colonoscopy Health Maintenance Due Date Last Done Comments DISCUSS TOBACCO CESSATION (REFER TO SMARTSET #7877) 1950 Alpha-1 Antitrypsin 1967 Cologuard 1994 Sigmoidoscopy [...] D LEVEL ONCE IN A LIFETIME-USE SMARTSET# [id number] Completed 03/22/2015 Pneumococcal Vaccine: 50+ Years Completed [...] this encounter Medical Devices Implanted Type Area Culture Media Laboratory Assistant Device Identifier Shelf Expiration Date Model / Serial / Lot Chip Cancellous c 190636 - [id number] Implanted:Qty: 1 on 08/08/[address] [facility] Tissue - Human Left: Foot MUSCULOSKELETAL TRANSPLANT FND 07/24/2015 [id number] / [id number] / Screw Nonlock 3.5 X 24 - [id number] Implanted:Qty: 1 on 08/08/[address] [facility] Left: Foot ORTHOHELIX SURGICAL DESIGNS DIETARY AIDE COOK-011-3 5-24 / / Screw Locking 3.5 X 16 - [id number] Implanted:Qty: 2 on 08/08/[address] [facility] Left: Foot ORTHOHELIX SURGICAL DESIGNS DIETARY AIDE COOK-021-3 5-16 / / Plate 6 Hole Beta Mxl-0026 - [id number] Implanted:Qty: 1 on 08/08/[address] [facility] Left: Foot ORTHOHELIX SURGICAL DESIGNS MXL-0026 / / Screw Locking 3.5 X 20 - [id number] Implanted:Qty: 1 on 08/08/[address] [facility] Left: Foot ORTHOHELIX SURGICAL DESIGNS DIETARY AIDE COOK-021-3 5-20 / / Screw Nonlock 3.5 X 16 - [id number] Implanted:Qty: 1 on 08/08/[address] [facility] Left: Foot ORTHOHELIX SURGICAL DESIGNS DIETARY AIDE COOK-011-3 5-16 / / Screw Nonlock 3.5 X 18 - [id number] Implanted:Qty: 1 on 08/08/[address] [facility] Left: Foot ORTHOHELIX SURGICAL DESIGNS DIETARY AIDE COOK-011-3 5-18 / / Screw Nonlock 3.5 X 14 - [id number] Implanted:Qty: 1 on 08/08/[address] [facility] Left: Foot ORTHOHELIX SURGICAL DESIGNS DIETARY AIDE COOK-011-3 5-14 / / 4.0 X 3.0 Short Max Torque Implanted:Qty: 1 on 08/08/[address] [facility] Left: Foot ORTHOHELIX SURGICAL DESIGNS MSD-010-4 0-030S / / 4.0 X 32.5 Short Max Torque Implanted:Qty: 1 on 08/08/[address] [facility] Left: Foot MSD-010-4 0-325S / / 4.0 X 28 Short Max Torque Implanted:Qty: 1 on 08/08/[address] [facility] Left: Foot ORTHOHELIX SURGICAL DESIGNS MSD-010-4 0-028S / / 4.0 X 22 Short Max Torque Implanted:Qty: 1 on 08/08/[address] [facility] Left: Foot ORTHOHELIX SURGICAL DESIGNS MSD-010-4 0-022S / / [place] Gold 4.0 - [id number] Implanted:Qty: 1 on 08/08/[address] [facility] Left: Foot ORTHOHELIX SURGICAL DESIGNS CSS-500-4 0A / / Plate Lps Alpha 2 Slot - [id number] Implanted:Qty: 1 on 08/08/[address] [facility] Left: Foot ORTHOHELIX SURGICAL DESIGNS MXL-002-2 A / / Screw Variable 3.5 X 12mm - [id number] Implanted:Qty: 1 on 08/08/[address] [facility] Left: Foot ORTHOHELIX SURGICAL DESIGNS RAKESH-031-3 5-12 / / Screw Variable 3.5 X 18mm - [id number] Implanted:Qty: 1 on 08/08/[address] [facility] Left: Foot ORTHOHELIX SURGICAL DESIGNS RAKESH-031-3 5-18 / / documented as of this encounter Procedures Procedure Name Priority Date/Time Associated Diagnosis Comments CT ABD/PELVIS W IV AND W ORAL CONTRAST Routine 05/03/2024 documented in this encounter Results * CT ABD/PELVIS W IV AND W ORAL CONTRAST (05/03/2024) Anatomical Region Laterality Modality Body, Abdomen, Pelvis Other 05/03/2024 us Mya Rose PA-C RAD CT Final Result documented in this [...] Power of Attor elizabeth? No Care Teams Webmethods Architect Relationship Specialty Start Date End Date Ronald Cortes MD PCP - General 06/10/02 documented as of this encounter
--- OUTSIDE RECORDS SUMMARY | 2024-07-09 10:32 | External Medical Summary | Summary of Care ---
Author Name Unknown Organization [facility] Address [address] [place] [address] Phone [phone] Care Team Providers Care Business Management Intern Name Role Phone Ronald Cortes MD Primary Care Provider [phone] Encounter Details Date Type Department Care Team (Late st Contact Info) Description 05/02/2024 Result Scan Unspecified Department <No scans attached> [...] headache 1 Tab 0 07/28/19 14 Active [place]-3 Fatty Acids (FISH OIL) 1000 MG Capsule [...] Cough. 54 g 3 02/08/20 Active Tiotropium [place] Monohydrate 18 MCG Inhalation Capsule (Spiriva HandiHaler) [...] stent 07/01/2023 Coronary artery disease invo lving shosh[place] coronary artery of [place] heart without angina pectoris 07/01/2023 Hematuria of [...] file Not on file Not on file Edi Analyst Not on file Not on file Not [...] 8:50 AM EST Office Visit Ophthalmology, [facility] [address] [place] [address] Hitesh Gordillo, DO 16 [facility] [address] 05/23/2024 2:00 PM EST Office Visit Pulmonary Medicine, [facility] [address] [place] [address] Marbin Serrano MD [address] [place] [facility] [place] [facility] [place] [address] 06/07/2024 8:30 AM EST Office Visit Cardiology, [facility] [address] [place] [address] Pepe Lennon, DO 132 [facility] [place] [address] 07/13/2024 3:30 PM EDT Imaging Rad[facility] [phone] Scheduled Procedures Name Priority Associated Diagnoses Date/Ti me COLONOSCOPY FLEXIBLE PROXIMA L DIAGNOSTIC Recall Encounter for screening colonoscopy Health Maintenance Due Date Last Done Comments DISCUSS TOBACCO CESSATION (REFER TO SMARTSET #4641) 1950 Alpha-1 Antitrypsin 1967 Cologuard 1994 Sigmoidoscopy [...] FOR COPD 02/07/2025 02/08/2024 GFR 04/13/2025 04/13/2024, 04/2024, 07/01/2023, Additional history exists Albumin/Creatinine Ratio 08/15/2025 08/15/2022 Colonoscopy 06/02/2027 06/02/2017, 04/12/2007 Colorectal Cancer Screening 06/02/2027 DTap/Tdap Vaccines (3 - Td or Tdap) 09/13/2031 09/12/2021, 06/10/2010, 07/16/1999 VITAMIN D LEVEL ONCE IN A LIFETIME-USE SMARTSET# [id number] Completed 03/22/2015 Pneumococcal Vaccine: 50+ Years Completed 12/31/2016, 11/17/2014, 06/10/2010 COVID-19 Vaccine Completed 02/08/2024, , 02/07/2021 Influenza Vaccine (FLU shot) Completed 02/08/2024, 02/08/2024, 03/14/2021, Additional history exists Lung Cancer Screening Completed 04/13/2024 , 01/05/2017, 07/18/2013 HPV (Gardasil) Vaccine Aged Out No lo nger eligible based on patient's age to complete this topic Hepatitis B Vaccine Aged Out No longe r eligible based on patient's age to complete this topic MENINGOCOCCAL (MENACTRA/MENVEO) Aged Out No longer eligible based on patient's age to complete this topic documented as of this encounter Medical Devices Implanted Type Area Disability Case Manager Device Identifier Shelf Expiration Date Model / Serial / Lot Chip Cancellous 5cc [id number] - [id number] Implanted:Qty: 1 on 08/08/2013 at [place] [facility] Tissue - Human Left: Foot MUSCULOSKELETAL TRANSPLANT FND 07/24/2015 [id number] / [id number] / Screw Nonlock 3.5 X 24 - [id number] Implanted:Qty: 1 on 08/08/2013 at [place] [facility] Left: Foot ORTHOHELIX SURGICAL DESIGNS BRICK SETTER-011-3 5-24 / / Screw Locking 3.5 X 16 - [id number] Implanted:Qty: 2 on 08/08/2013 at [place] [facility] Left: Foot ORTHOHELIX SURGICAL DESIGNS BRICK SETTER-021-3 5-16 / / Plate 6 Hole Beta Mxl-0026 - [id number] Implanted:Qty: 1 on 08/08/2013 at [place] [facility] Left: Foot ORTHOHELIX SURGICAL DESIGNS MXL-0026 / / Screw Locking 3.5 X 20 - [id number] Implanted:Qty: 1 on 08/08/2013 at [place] [facility] Left: Foot ORTHOHELIX SURGICAL DESIGNS BRICK SETTER-021-3 5-20 / / Screw Nonlock 3.5 X 16 - [id number] Implanted:Qty: 1 on 08/08/2013 at [place] [facility] Left: Foot ORTHOHELIX SURGICAL DESIGNS BRICK SETTER-011-3 5-16 / / Screw Nonlock 3.5 X 18 - [id number] Implanted:Qty: 1 on 08/08/2013 at [place] [facility] Left: Foot ORTHOHELIX SURGICAL DESIGNS BRICK SETTER-011-3 5-18 / / Screw Nonlock 3.5 X 14 - [id number] Implanted:Qty: 1 on 08/08/2013 at [place] [facility] Left: Foot ORTHOHELIX SURGICAL DESIGNS BRICK SETTER-011-3 5-14 / / 4.0 X 3.0 Short Max Torque Implanted:Qty: 1 on 08/08/2013 at [place] [facility] Left: Foot ORTHOHELIX SURGICAL DESIGNS MSD-010-4 0-030S / / 4.0 X 32.5 Short Max Torque Implanted:Qty: 1 on 08/08/2013 at [place] [facility] Left: Foot MSD-010-4 0-325S / / 4.0 X 28 Short Max Torque Implanted:Qty: 1 on 08/08/2013 at [place] [facility] Left: Foot ORTHOHELIX SURGICAL DESIGNS MSD-010-4 0-028S / / 4.0 X 22 Short Max Torque Implanted:Qty: 1 on 08/08/2013 at [place] [facility] Left: Foot ORTHOHELIX SURGICAL DESIGNS MSD-010-4 0-022S / / [place] Gold 4.0 - [id number] Implanted:Qty: 1 on 08/08/2013 at [place] [facility] Left: Foot ORTHOHELIX SURGICAL DESIGNS CSS-500-4 0A / / Plate Lps Alpha 2 Slot - [id number] Implanted:Qty: 1 on 08/08/2013 at [place] [facility] Left: Foot ORTHOHELIX SURGICAL DESIGNS MXL-002-2 A / / Screw Variable 3.5 X 12mm - [id number] Implanted:Qty: 1 on 08/08/2013 at [place] [facility] Left: Foot ORTHOHELIX SURGICAL DESIGNS RAKESH-031-3 5-12 / / Screw Variable 3.5 X 18mm - [id number] Implanted:Qty: 1 on 08/08/2013 at [place] [facility] Left: Foot ORTHOHELIX SURGICAL DESIGNS RAKESH-031-3 5-18 / / documented as of this encounter Procedures Procedure Name Priority Date/Time Associated Diagnosis Comments EKG SCANNED RESULT 05/02/2024 documented in this encounter Results * EKG SCANNED RESULT (05/02/2024) 05/02/2024 us No Physician Data Unknown EKG Final Result documented in this encounter Advance [...] of Attor elizabeth? No Care Teams Business Management Intern Relationship Specialty Start Date End Date Ronald Cortes MD PCP - General 06/10/02 documented as of this encounter
--- OUTSIDE RECORDS SUMMARY | 2024-07-09 10:32 | External Medical Summary | Summary of Care ---
Author Name Unknown Organization [facility] Address [address] [facility] [place] [address] Phone [phone] Care Team Providers Care Business Risk Consultant Name Role Phone Ronald Cortes MD Primary Care Provider [phone] Encounter Details Date Type Department Care Team (Late st Contact Info) Description 04/14/2024 Orders Only [facility] [address] [facility] [place] [address] Ronald Cortes MD [address] [place] [address] Allergies Active Allergy Reactions Criticality Noted Date Comments Bee Venom Anaphylaxis High 02/27/2006 Doxycycline Low 08/04/2023 Intolerant, GI upset documented as of this encounter (statuses as of 04/14/2024) Medications CALCIUM + D 600-200 MG-UNIT PO TABS 1 BID 0 03/13/20 06 Active MULTIVITAMINS PO TABS daily 0 03/13/20 06 Active ACETAMINOPHEN 325 MG PO TABSIndications:IN TERFACED RESULT,Pneumothora x 2 Tab Oral Every 6 hours as needed for fever, pain, headache 1 Tab 0 07/28/19 14 Active [place]-3 Fatty Acids (FISH OIL) 1000 MG Capsule [...] Capsule 2 08/05/19 24 Active Potassium Chloride Unqiue ER 10 MEQ Oral Tablet Extended Release [...] Cough. 54 g 3 02/08/20 Active Tiotropium [place] Monohydrate 18 MCG Inhalation Capsule (Spiriva HandiHaler) [...] as of this encounter (statuses as of 04/14/2024) Active Problems Problem Noted Date Diagnosed Date History of atrial fibrillation 02/08/2024 Gait difficulty 02/08/2024 Chronic respiratory failure with hypoxia 024 COPD, group B, by GOLD 2017 classification 09/20 Overview: Per COPD GOLD Classification Acquired hypothyroidism 07/19/2023 History of coronary angioplasty with insertion o f stent 07/01/2023 Coronary artery disease invo lving huslia coronary artery of hus[place] heart without angina pectoris 07/01/2023 Hematuria of undiagnosed cause 07/12/2019 Tobacco use disorder 12/21/2017 Chronic nonspecific lung disease 06/16/2017 HTN, goal below 150/90 11/16/2015 Osteoporosis 12/28/2014 Dyslipidemia, goal LDL below 100 06/10/2010 Generalized osteoarthritis of multiple sites 02/2011 GENERALIZED ANXIETY DIS 12/05/2004 COMMON MIGRAINE WITHOUT MENTION OF INTRACTABLE M IGRAINE documented as of this encounter (statuses as of 04/14/2024) Resolved Problems Problem Noted Date Diagnosed Date [...] as of this encounter (statuses as of 04/14/2024) Immunizations Name Administration Dates Next Due COVID-19, [...] file Not on file Not on file 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 Not on file Not on file [...] Description 04/28/2024 1:00 PM EST Office Visit [facility] [address] [place] [address] Hitesh Gordillo, [address] [place] [address] 05/23/2024 2:00 PM EST Office Visit Pulmonary Medicine, [facility] [address] [facility] [place] [address] Marbin Serrano MD [address] [place] [address] 06/07/2024 8:30 AM EST Office Visit Cardiology, [facility] [address] [facility] [place] [address] Pepe Lennon DO [address] [facility] [place] [address] 07/13/2024 3:30 PM EDT Imaging Radiology [facility] [address] [facility] [place] [phone] Scheduled Procedures Name Priority Associated Diagnoses Date/Ti me COLONOSCOPY FLEXIBLE PROXIMA L DIAGNOSTIC Recall Encounter for screening colonoscopy Health Maintenance Due Date Last Done Comments DISCUSS TOBACCO CESSATION (REFER TO SMARTSET #2303) 1950 Alpha-1 Antitrypsin 1967 Cologuard 1994 Sigmoidoscopy 1994 Zoster Vaccines (2 of 3) 03/19/2012 01/23/2012 Adult Wellness Visit 2015 DXA Scan 12/27/2016 12/27/2014, 03/13, 03/29/2007, Additional history exists Fecal Occult Blood Test 04/23/2018 04/23/19 18, 12/21/2000, 10/31/1999 GFR 06/30/2024 04/13/2024, 06/12, 03/22/2023, Additional history exists Depression Screening 10/08/2024 10/09/2023 [...] D LEVEL ONCE IN A LIFETIME-USE SMARTSET# [id number] Completed 03/22/2015 Pneumococcal Vaccine: 50+ Years Completed 12/31/2016, 11/17/2014, 06/10/2010 Lung Cancer [...] this encounter Medical Devices Implanted Type Area Engine Test Cell Technician Device Identifier Shelf Expiration Date Model / Serial / Lot Chip Cancellous [facility] [id number] - [id number] Implanted:Qty: 1 on 08/08/2013 at [place] [facility] [place] Tissue - Human Left: Foot MUSCULOSKELETAL TRANSPLANT FND 07/24/2015 [id number] / [id number] / Screw Nonlock 3.5 X 24 - [id number] Implanted:Qty: 1 on 08/08/2013 at [place] [facility] [place] Left: Foot ORTHOHELIX SURGICAL DESIGNS CLINICAL APPLICATIONS MANAGER-011-3 5-24 / / Screw Locking 3.5 X 16 - [id number] Implanted:Qty: 2 on 08/08/2013 at [place] [facility] [place] Left: Foot ORTHOHELIX SURGICAL DESIGNS CLINICAL APPLICATIONS MANAGER-021-3 5-16 / / Plate 6 Hole Beta Mxl-0026 - [id number] Implanted:Qty: 1 on 08/08/2013 at [place] [facility] [place] Left: Foot ORTHOHELIX SURGICAL DESIGNS MXL-0026 / / Screw Locking 3.5 X 20 - [id number] Implanted:Qty: 1 on 08/08/2013 at [place] [facility] [place] Left: Foot ORTHOHELIX SURGICAL DESIGNS CLINICAL APPLICATIONS MANAGER-021-3 5-20 / / Screw Nonlock 3.5 X 16 - [id number] Implanted:Qty: 1 on 08/08/2013 at [place] [facility] [place] Left: Foot ORTHOHELIX SURGICAL DESIGNS CLINICAL APPLICATIONS MANAGER-011-3 5-16 / / Screw Nonlock 3.5 X 18 - [id number] Implanted:Qty: 1 on 08/08/2013 at [place] [facility] [place] Left: Foot ORTHOHELIX SURGICAL DESIGNS CLINICAL APPLICATIONS MANAGER-011-3 5-18 / / Screw Nonlock 3.5 X 14 - [id number] Implanted:Qty: 1 on 08/08/2013 at [place] [facility] [place] Left: Foot ORTHOHELIX SURGICAL DESIGNS CLINICAL APPLICATIONS MANAGER-011-3 5-14 / / 4.0 X 3.0 Short Max Torque Implanted:Qty: 1 on 08/08/2013 at [place] [facility] [place] Left: Foot ORTHOHELIX SURGICAL DESIGNS MSD-010-4 0-030S / / 4.0 X 32.5 Short Max Torque Implanted:Qty: 1 on 08/08/2013 at [place] [facility] [place] Left: Foot MSD-010-4 0-325S / / 4.0 X 28 Short Max Torque Implanted:Qty: 1 on 08/08/2013 at [place] [facility] [place] Left: Foot ORTHOHELIX SURGICAL DESIGNS MSD-010-4 0-028S / / 4.0 X 22 Short Max Torque Implanted:Qty: 1 on 08/08/2013 at [place] [facility] [place] Left: Foot ORTHOHELIX SURGICAL DESIGNS MSD-010-4 0-022S / / [place] Gold 4.0 - [id number] Implanted:Qty: 1 on 08/08/2013 at [place] [facility] [place] Left: Foot ORTHOHELIX SURGICAL DESIGNS CSS-500-4 0A / / Plate Lps Alpha 2 Slot - [id number] Implanted:Qty: 1 on 08/08/2013 at [place] [facility] [place] Left: Foot ORTHOHELIX SURGICAL DESIGNS MXL-002-2 A / / Screw Variable 3.5 X 12mm - [id number] Implanted:Qty: 1 on 08/08/2013 at [place] [facility] [place] Left: Foot ORTHOHELIX SURGICAL DESIGNS RAKESH-031-3 5-12 / / Screw Variable 3.5 X 18mm - [id number] Implanted:Qty: 1 on 08/08/2013 at [place] [facility] [place] Left: Foot ORTHOHELIX SURGICAL DESIGNS RAKESH-031-3 5-18 / / documented as of this encounter Procedures Procedure Name Priority Date/Time Associated Diagnosis Comments CHEMISTRY-OUTSIDE Routine 04/13/2024 documented in this encounter Results * (ABNORMAL) CHEMISTRY-OUTSIDE (04/13/2024) Not all results display below - see scan for full detail OUTSIDE LAB (SEE SCANNED REPORT) Comment:SCAN INCLUDES-CBC W DIFF,BLOOD GAS ARTERIAL (ABG) CREATININE OUTSIDE L AB (SEE SCANNED REPORT) EGFR OUTSIDE LA B (SEE SCANNED REPORT) POTASSIUM OUTSIDE LA B (SEE SCANNED REPORT) GLUCOSE OUTSIDE LA B (SEE SCANNED REPORT) HOURS FASTING OUTSID E LAB (SEE SCANNED REPORT) TRIGLYCERIDES-OUT SIDE LAB OUTSIDE LAB (SEE SCANNED REPORT) CHOLESTEROL-OUTSI DE LAB OUTSIDE LAB (SEE SCANNED REPORT) HDL-OUTSIDE LAB OUTS [facility] (SEE SCANNED REPORT) CHOL/HDL RATIO-OUTSIDE LAB OUTSIDE LA B (SEE SCANNED REPORT) LDL (CALCULATED)-OUTS [facility] LAB OUTSIDE LAB (SEE SCANNED REPORT) LDL (DIRECT MEASURE)-OUTSIDE LAB OUTSIDE LAB (SEE SCANNED REPORT) HEMOGLOBIN, Y3X-REDZNZW LAB OUTSIDE LAB (SEE SCANNED REPORT) PHOSPHORUS-OUTSID E LAB OUTSIDE LAB (SEE SCANNED REPORT) PTH-OUTSIDE LAB OUTS [facility] LAB (SEE SCANNED REPORT) MICROALBUMIN RATIO-OUTSIDE LAB OUTSIDE LA B (SEE SCANNED REPORT) PROTEIN, UA-OUTSIDE LAB OUTSIDE LAB (SEE SCANNED REPORT) HGB 11.1(A) 12.0 - 16.0 GM/DL OUTSIDE LAB (SEE SCANNED REPORT) 04/13/2024 us Christopher Dasilva MD LABORATORY Final Result OUTSIDE LAB (SEE SCANNED REPORT) [...] of Attor elizabeth? No Care Teams Business Risk Consultant Relationship Specialty Start Date End Date Ronald Cortes MD PCP - General 06/10/02 documented as of this encounter
--- OUTSIDE RECORDS SUMMARY | 2024-07-09 10:32 | External Medical Summary | Summary of Care ---
Author Name Unknown Organization [facility] Address [address] [place] [address] Phone [phone] Care Team Providers Care Incising Machine Operator Name Role Phone Ronald Cortes MD Primary Care Provider [phone] Encounter Details Date Type Department Care Team (Late st Contact Info) Description 05/13/2024 Orders Only [facility] [address] [place] [address] Ronald Cortes MD [address] [place] [address] Allergies Active Allergy Reactions Criticality Noted Date Comments Bee Venom Anaphylaxis High 02/27/2006 Doxycycline Low 08/04/2023 Intolerant, GI upset documented as of this encounter (statuses as of 05/13/2024) Medications CALCIUM + D 600-200 MG-UNIT PO TABS 1 BID 0 03/13/20 06 Active MULTIVITAMINS PO TABS daily 0 03/13/20 06 Active ACETAMINOPHEN 325 MG PO TABSIndications:IN TERFACED RESULT,Pneumothora x 2 Tab Oral Every 6 hours as needed for fever, pain, headache 1 Tab 0 07/28/19 14 Active [place]-3 Fatty Acids (FISH OIL) 1000 MG Capsule [...] Cough. 54 g 3 02/08/20 Active Tiotropium [place] Monohydrate 18 MCG Inhalation Capsule (Spiriva HandiHaler) [...] as of this encounter (statuses as of 05/13/2024) Active Problems Problem Noted Date Diagnosed Date History of atrial fibrillation 02/08/2024 Gait difficulty 02/08/2024 Chronic respiratory failure with hypoxia 024 COPD, group B, by GOLD 2017 classification 09/20 Overview: Per COPD GOLD Classification Acquired hypothyroidism 07/19/2023 History of coronary angioplasty with insertion o f stent 07/01/2023 Coronary artery disease invo lving nikolai coronary artery of nikolai heart without angina pectoris 07/01/2023 Hematuria of undiagnosed cause 07/12/2019 Tobacco use disorder 12/21/2017 Chronic nonspecific lung disease 06/16/2017 HTN, goal below 150/90 11/16/2015 Osteoporosis 12/28/2014 Dyslipidemia, goal LDL below 100 06/10/2010 Generalized osteoarthritis of multiple sites 02/2011 GENERALIZED ANXIETY DIS 12/05/2004 COMMON MIGRAINE WITHOUT MENTION OF INTRACTABLE M IGRAINE documented as of this encounter (statuses as of 05/13/2024) Resolved Problems Problem Noted Date Diagnosed Date [...] as of this encounter (statuses as of 05/13/2024) Immunizations Name Administration Dates Next Due COVID-19, [...] file Not on file Not on file Credit Card Interviewer Not on file Not on file Not [...] 2:00 PM EST Office Visit Pulmonary Medicine, [facility] [address] [facility] [place] [address] Marbin Serrano MD [address] [facility] [place] [address] 06/07/2024 8:30 AM EST Office Visit Cardiology, [facility] [address] [facility] [place] [address] Pepe Lennon DO [address] [place] [address] 07/13/2024 3:30 PM EDT Imaging Radiology [facility] [address] [place] [phone] Scheduled Procedures Name Priority Associated Diagnoses Date/Ti me COLONOSCOPY FLEXIBLE PROXIMA L DIAGNOSTIC Recall Encounter for screening colonoscopy Health Maintenance Due Date Last Done Comments DISCUSS TOBACCO CESSATION (REFER TO SMARTSET #3291) 1950 Alpha-1 Antitrypsin 1967 Zoster Vaccines (2 of 3) 03/19/2012 01/23/2012 Adult Wellness Visit 2015 DXA Scan 12/27/2016 12/27/2014, 03/13, 03/29/2007, Additional history exists Depression Screening 10/08/2024 10/09/2023 TSH 10/08/2024 10/09/2023, 03/2 , 08/08/2013, Additional history exists O2 ASSESSMENT COMPLETED IN PAST YEAR FOR COPD 02/07/2025 02/08/2024 GFR 05/09/2025 05/09/2024, 01/0 04/2024, 04/13/2024, Additional history exists Albumin/Creatinine Ratio 08/15/2025 08/15/2022 DTap/Tdap Vaccines (3 - Td or Tdap) 09/13/2031 09/12/2021, 06/10/2010, 07/16/1999 VITAMIN D LEVEL ONCE IN A LIFETIME-USE SMARTSET# [id number] Completed 03/22/2015 Pneumococcal Vaccine: 50+ Years Completed [...] this encounter Medical Devices Implanted Type Area Bad Work Gatherer Device Identifier Shelf Expiration Date Model / Serial / Lot Chip Cancellous 5cc [id number] - [id number] Implanted:Qty: 1 on 08/08/2013 at [place] [facility] [place] Tissue - Human Left: Foot MUSCULOSKELETAL TRANSPLANT FND 07/24/2015 [id number] / [id number] / Screw Nonlock 3.5 X 24 - [id number] Implanted:Qty: 1 on 08/08/2013 at [place] [facility] [place] Left: Foot ORTHOHELIX SURGICAL DESIGNS STONECUTTER ASSISTANT-011-3 5-24 / / Screw Locking 3.5 X 16 - [id number] Implanted:Qty: 2 on 08/08/2013 at [place] [facility] [place] Left: Foot ORTHOHELIX SURGICAL DESIGNS STONECUTTER ASSISTANT-021-3 5-16 / / Plate 6 Hole Beta Mxl-0026 - [id number] Implanted:Qty: 1 on 08/08/2013 at [place] [facility] [place] Left: Foot ORTHOHELIX SURGICAL DESIGNS MXL-0026 / / Screw Locking 3.5 X 20 - [id number] Implanted:Qty: 1 on 08/08/2013 at [place] [facility] [place] Left: Foot ORTHOHELIX SURGICAL DESIGNS STONECUTTER ASSISTANT-021-3 5-20 / / Screw Nonlock 3.5 X 16 - [id number] Implanted:Qty: 1 on 08/08/2013 at [place] [facility] Left: Foot ORTHOHELIX SURGICAL DESIGNS STONECUTTER ASSISTANT-011-3 5-16 / / Screw Nonlock 3.5 X 18 - [id number] Implanted:Qty: 1 on 08/08/2013 at [place] [facility] Left: Foot ORTHOHELIX SURGICAL DESIGNS STONECUTTER ASSISTANT-011-3 5-18 / / Screw Nonlock 3.5 X 14 - [id number] Implanted:Qty: 1 on 08/08/2013 at [place] [facility] Left: Foot ORTHOHELIX SURGICAL DESIGNS STONECUTTER ASSISTANT-011-3 5-14 / / 4.0 X 3.0 Short Max Torque Implanted:Qty: 1 on 08/08/2013 at [place] [facility] Left: Foot ORTHOHELIX SURGICAL DESIGNS MSD-010-4 0-030S / / 4.0 X 32.5 Short Max Torque Implanted:Qty: 1 on 08/08/2013 at [place] [facility] Left: Foot MSD-010-4 0-325S / / 4.0 X 28 Short Max Torque Implanted:Qty: 1 on 08/08/2013 at [place] [facility] Left: Foot ORTHOHELIX SURGICAL DESIGNS MSD-010-4 0-028S / / 4.0 X 22 Short Max Torque Implanted:Qty: 1 on 08/08/2013 at [place] [facility] Left: Foot ORTHOHELIX SURGICAL DESIGNS MSD-010-4 0-022S / / [place] Gold 4.0 - [id number] Implanted:Qty: 1 on 08/08/2013 at [place] [facility] Left: Foot ORTHOHELIX SURGICAL DESIGNS CSS-500-4 0A / / Plate Lps Alpha 2 Slot - [id number] Implanted:Qty: 1 on 08/08/2013 at [place] [facility] Left: Foot ORTHOHELIX SURGICAL DESIGNS MXL-002-2 A / / Screw Variable 3.5 X 12mm - [id number] Implanted:Qty: 1 on 08/08/2013 at [place] [facility] Left: Foot ORTHOHELIX SURGICAL DESIGNS RAKESH-031-3 5-12 / / Screw Variable 3.5 X 18mm - [id number] Implanted:Qty: 1 on 08/08/2013 at [place] [facility] [place] Left: Foot ORTHOHELIX SURGICAL DESIGNS RAKESH-031-3 5-18 / / documented as of this encounter Procedures Procedure Name Priority Date/Time Associated Diagnosis Comments XR CHEST 1 VIEW Routine 05/12/2024 documented in this encounter Results * XR CHEST 1 VIEW (05/12/2024) Anatomical Region Laterality Modality Chest Other 05/12/2024 [facility] DO RADIOLOGY (RAD GENERAL) Ros l Result documented in this encounter Advance Directives [...] Power of Attor elizabeth? No Care Teams Incising Machine Operator Relationship Specialty Start Date End Date Ronald Cortes MD PCP - General 06/10/02 documented as of this encounter
--- OUTSIDE RECORDS SUMMARY | 2024-07-09 10:32 | External Medical Summary | Summary of Care ---
Author Name Unknown Organization [facility] Address [address] [place] [address] Phone [phone] Care Team Providers Care Credit Professional Name Role Phone Ronald Cortes MD Primary Care Provider [phone] Encounter Details Date Type Department Care Team (Late st Contact Info) Description 04/13/2024 Result Scan Unspecified Department <No scans attached> [...] headache 1 Tab 0 07/28/19 14 Active [place]-3 Fatty Acids (FISH OIL) 1000 MG Capsule [...] Cough. 54 g 3 02/08/20 Active Tiotropium [place] Monohydrate 18 MCG Inhalation Capsule (Spiriva HandiHaler) [...] stent 07/01/2023 Coronary artery disease invo lving [place] coronary artery of [place] heart without angina pectoris 07/01/2023 Hematuria of [...] file Not on file Not on file [employer] Not on file Not on file Not [...] Author No 08/08/2013 9:56 PM EDT Barry Doherty, RN documented as of this encounter Mental [...] Description 04/28/2024 1:00 PM EST Office Visit [facility] [address] [place] [address] Hitesh Gordillo DO [address] [place] [address] 05/23/2024 2:00 PM EST Office Visit Pulmonary Medicine, [facility] [address] [facility] [place] [address] Marbin Serrano MD [address] [place] [facility] [place] [address] 06/07/2024 8:30 AM EST Office Visit Cardiology, [facility] [address] [facility] [place] [address] Pepe Lennon DO [address] [facility] [place] [address] 07/13/2024 3:30 PM EDT Imaging Radiology [facility] [address] [facility] [place] [address] Scheduled Procedures Name Priority Associated Diagnoses Date/Ti me COLONOSCOPY FLEXIBLE PROXIMA L DIAGNOSTIC Recall Encounter for screening colonoscopy Health Maintenance Due Date Last Done Comments DISCUSS TOBACCO CESSATION (REFER TO SMARTSET #0294) 1950 Alpha-1 Antitrypsin 1967 Cologuard 1994 Sigmoidoscopy [...] D LEVEL ONCE IN A LIFETIME-USE SMARTSET# 09656 Completed 03/22/2015 Pneumococcal Vaccine: 50+ Years Completed [...] this encounter Medical Devices Implanted Type Area Presser And Shaper Knitted Goods Device Identifier Shelf Expiration Date Model / Serial / Lot Chip Cancellous 5cc [id number] - [id number] Implanted:Qty: 1 on 08/08/2013 at OR [facility] [place] Tissue - Human Left: Foot MUSCULOSKELETAL TRANSPLANT FND 07/24/2015 [id number] / [id number] / Screw Nonlock 3.5 X 24 - [id number] Implanted:Qty: 1 on 08/08/2013 at OR [facility] [place] Left: Foot ORTHOHELIX SURGICAL DESIGNS AIRCRAFT STRUCTURE MECHANIC-011-3 5-24 / / Screw Locking 3.5 X 16 - [id number] Implanted:Qty: 2 on 08/08/2013 at [place] [facility] [place] Left: Foot ORTHOHELIX SURGICAL DESIGNS AIRCRAFT STRUCTURE MECHANIC-021-3 5-16 / / Plate 6 Hole Beta Mxl-0026 - [id number] Implanted:Qty: 1 on 08/08/2013 at [place] [facility] [place] Left: Foot ORTHOHELIX SURGICAL DESIGNS MXL-0026 / / Screw Locking 3.5 X 20 - [id number] Implanted:Qty: 1 on 08/08/2013 at [place] [facility] [place] Left: Foot ORTHOHELIX SURGICAL DESIGNS AIRCRAFT STRUCTURE MECHANIC-021-3 5-20 / / Screw Nonlock 3.5 X 16 - [id number] Implanted:Qty: 1 on 08/08/2013 at [place] [facility] [place] Left: Foot ORTHOHELIX SURGICAL DESIGNS AIRCRAFT STRUCTURE MECHANIC-011-3 5-16 / / Screw Nonlock 3.5 X 18 - [id number] Implanted:Qty: 1 on 08/08/2013 at [place] [facility] [place] Left: Foot ORTHOHELIX SURGICAL DESIGNS AIRCRAFT STRUCTURE MECHANIC-011-3 5-18 / / Screw Nonlock 3.5 X 14 - [id number] Implanted:Qty: 1 on 08/08/2013 at [place] [facility] [place] Left: Foot ORTHOHELIX SURGICAL DESIGNS AIRCRAFT STRUCTURE MECHANIC-011-3 5-14 / / 4.0 X 3.0 [...] / / [place] Gold 4.0 - [id number] Implanted:Qty: 1 on 08/08/2013 at [place] [facility] [place] Left: Foot ORTHOHELIX SURGICAL DESIGNS CSS-500-4 0A / / Plate Lps Alpha 2 Slot - [id number] Implanted:Qty: 1 on 08/08/2013 at [place] [facility] [place] Left: Foot ORTHOHELIX SURGICAL DESIGNS MXL-002-2 A / / Screw Variable 3.5 X 12mm - [id number] Implanted:Qty: 1 on 08/08/2013 at [place] [facility] [place] Left: Foot ORTHOHELIX SURGICAL DESIGNS RAKESH-031-3 5-12 / / Screw Variable 3.5 X 18mm - [id number] Implanted:Qty: 1 on 08/08/2013 at [place] [facility] [place] Left: Foot ORTHOHELIX SURGICAL DESIGNS RAKESH-031-3 5-18 / / documented as of this encounter Procedures Procedure Name Priority Date/Time Associated Diagnosis Comments EKG SCANNED RESULT 04/13/2024 documented in this encounter Results * EKG SCANNED RESULT (04/13/2024) 04/13/2024 us No Physician Data Unknown EKG Final [...] Power of Attor elizabeth? No Care Teams Credit Professional Relationship Specialty Start Date End Date Ronald Cortes MD PCP - General 06/10/02 documented as of this encounter
--- OUTSIDE RECORDS SUMMARY | 2024-07-09 10:32 | External Medical Summary | Summary of Care ---
Author Name Unknown Organization [facility] Address [address] [place] [address] Phone [phone] Care Team Providers Care Gas Meter Installer Helper Name Role Phone Ronald Cortes MD Primary Care Provider [phone] Encounter Details Date Type Department Care Team (Late st Contact Info) Description 04/15/[address] [facility] [address] [facility] [place] [address] Ronald Cortes MD [address] [place] [address] Allergies Active Allergy Reactions Criticality Noted Date Comments Bee Venom Anaphylaxis High 02/27/2006 Doxycycline Low 08/04/2023 Intolerant, GI upset documented as of this encounter (statuses as of 04/15/2024) Medications CALCIUM + D 600-200 MG-UNIT PO TABS 1 BID 0 03/13/20 06 Active MULTIVITAMINS PO TABS daily 0 03/13/20 06 Active ACETAMINOPHEN 325 MG PO TABSIndications:IN TERFACED RESULT,Pneumothora x 2 Tab Oral Every 6 hours as needed for fever, pain, headache 1 Tab 0 07/28/19 14 Active [place]-3 Fatty Acids (FISH OIL) 1000 MG Capsule [...] Moderate. 45 Tablet 08/07/19 24 Active Fluticasone-Salmet ojdy 115-21 MCG/ACT Inhalation Aerosol (Advair Hfa) Inhale [...] Cough. 54 g 3 02/08/20 Active Tiotropium [place] Monohydrate 18 MCG Inhalation Capsule (Spiriva HandiHaler) [...] as of this encounter (statuses as of 04/15/2024) Active Problems Problem Noted Date Diagnosed Date History of atrial fibrillation 02/08/2024 Gait difficulty 02/08/2024 Chronic respiratory failure with hypoxia 024 COPD, group B, by GOLD 2017 classification 09/20 Overview: Per COPD GOLD Classification Acquired hypothyroidism 07/19/2023 History of coronary angioplasty with insertion o f stent 07/01/2023 Coronary artery disease invo lving [place] coronary artery of [place] heart without angina pectoris 07/01/2023 Hematuria of undiagnosed cause 07/12/2019 Tobacco use disorder 12/21/2017 Chronic nonspecific lung disease 06/16/2017 HTN, goal below 150/90 11/16/2015 Osteoporosis 12/28/2014 Dyslipidemia, goal LDL below 100 06/10/2010 Generalized osteoarthritis of multiple sites 02/2011 GENERALIZED ANXIETY DIS 12/05/2004 COMMON MIGRAINE WITHOUT MENTION OF INTRACTABLE M IGRAINE documented as of this encounter (statuses as of 04/15/2024) Resolved Problems Problem Noted Date Diagnosed Date [...] as of this encounter (statuses as of 04/15/2024) Immunizations Name Administration Dates Next Due COVID-19, [...] file Not on file Not on file Spool Sorter Not on file Not on file Not [...] 04/28/2024 1:00 PM EST Office Visit [facility] [address] [place] [address] Hitesh Gordillo, [address] [place] [address] 05/23/2024 2:00 PM EST Office Visit Pulmonary Medicine, [facility] [address] [facility] [place] [address] Marbin Serrano MD [address] [place] [address] 06/07/2024 8:30 AM EST Office Visit Cardiology, [facility] [address] [facility] [place] [address] Pepe Lennon DO [address] [facility] [place] [address] 07/13/2024 3:30 PM EDT Imaging Radiology [facility] [address] [facility] [place] [phone] Scheduled Procedures Name Priority Associated Diagnoses Date/Ti me COLONOSCOPY FLEXIBLE PROXIMA L DIAGNOSTIC Recall Encounter for screening colonoscopy Health Maintenance Due Date Last Done Comments DISCUSS TOBACCO CESSATION (REFER TO SMARTSET #7947) 1950 Alpha-1 Antitrypsin 1967 Cologuard 1994 Sigmoidoscopy [...] D LEVEL ONCE IN A LIFETIME-USE SMARTSET# 23232 Completed 03/22/2015 Pneumococcal Vaccine: 50+ Years Completed [...] this encounter Medical Devices Implanted Type Area Weights And Measures Sealer Device Identifier Shelf Expiration Date Model / Serial / Lot Chip Cancellous [facility] [id number] - [id number] Implanted:Qty: 1 on 08/08/2013 at OR [facility] [place] Tissue - Human Left: Foot MUSCULOSKELETAL TRANSPLANT FND 07/24/2015 [id number] / [id number] / Screw Nonlock 3.5 X 24 - [id number] Implanted:Qty: 1 on 08/08/2013 at OR [facility] [place] Left: Foot ORTHOHELIX SURGICAL DESIGNS SCHOOL PHOTOGRAPHER-011-3 5-24 / / Screw Locking 3.5 X 16 - [id number] Implanted:Qty: 2 on 08/08/2013 at OR [facility] [place] Left: Foot ORTHOHELIX SURGICAL DESIGNS SCHOOL PHOTOGRAPHER-021-3 5-16 / / Plate 6 Hole Beta Mxl-0026 - [id number] Implanted:Qty: 1 on 08/08/2013 at OR [facility] [place] Left: Foot ORTHOHELIX SURGICAL DESIGNS MXL-0026 / / Screw Locking 3.5 X 20 - [id number] Implanted:Qty: 1 on 08/08/2013 at [place] [facility] [place] Left: Foot ORTHOHELIX SURGICAL DESIGNS SCHOOL PHOTOGRAPHER-021-3 5-20 / / Screw Nonlock 3.5 X 16 - [id number] Implanted:Qty: 1 on 08/08/2013 at [place] [facility] [place] Left: Foot ORTHOHELIX SURGICAL DESIGNS SCHOOL PHOTOGRAPHER-011-3 5-16 / / Screw Nonlock 3.5 X 18 - [id number] Implanted:Qty: 1 on 08/08/2013 at [place] [facility] [place] Left: Foot ORTHOHELIX SURGICAL DESIGNS SCHOOL PHOTOGRAPHER-011-3 5-18 / / Screw Nonlock 3.5 X 14 - [id number] Implanted:Qty: 1 on 08/08/2013 at [place] [facility] [place] Left: Foot ORTHOHELIX SURGICAL DESIGNS SCHOOL PHOTOGRAPHER-011-3 5-14 / / 4.0 X 3.0 Short Max Torque Implanted:Qty: 1 on 08/08/2013 at OR [facility] [place] Left: Foot ORTHOHELIX SURGICAL DESIGNS MSD-010-4 0-030S / / 4.0 X 32.5 Short Max Torque Implanted:Qty: 1 on 08/08/2013 at OR [facility] [place] Left: Foot MSD-010-4 0-325S / / 4.0 X 28 Short Max Torque Implanted:Qty: 1 on 08/08/2013 at OR [facility] [place] Left: Foot ORTHOHELIX SURGICAL DESIGNS MSD-010-4 0-028S / / 4.0 X 22 Short Max Torque Implanted:Qty: 1 on 08/08/2013 at OR [facility] [place] Left: Foot ORTHOHELIX SURGICAL DESIGNS MSD-010-4 0-022S / / [place] Gold 4.0 - [id number] Implanted:Qty: 1 on 08/08/2013 at OR [facility] [place] Left: Foot ORTHOHELIX SURGICAL DESIGNS CSS-500-4 0A / / Plate Lps Alpha 2 Slot - [id number] Implanted:Qty: 1 on 08/08/2013 at OR [facility] [place] Left: Foot ORTHOHELIX SURGICAL DESIGNS MXL-002-2 A / / Screw Variable 3.5 X 12mm - [id number] Implanted:Qty: 1 on 08/08/2013 at OR [facility] [place] Left: Foot ORTHOHELIX SURGICAL DESIGNS RAKESH-031-3 5-12 / / Screw Variable 3.5 X 18mm - [id number] Implanted:Qty: 1 on 08/08/2013 at [place] [facility] [place] Left: Foot ORTHOHELIX SURGICAL DESIGNS RAKESH-031-3 5-18 / / documented as of this encounter Procedures Procedure Name Priority Date/Time Associated Diagnosis Comments XR CHEST 1 VIEW Routine 04/13/2024 CHEMISTRY-OUTSIDE Routine 04/13/2024 CTA CHEST NON-CORONARY W CONTRAST Routine 04/13/2024 documented in this encounter Results * (ABNORMAL) CHEMISTRY-OUTSIDE (04/13/2024) Not all results display below - see scan for full detail SCAN INCLUDES ER PH [place]: BLOOD GAS ARTERIAL, TROPONIN, LACTIC ACID, UA, CMP, LIPASE, MG, PROBNP OUTSIDE LAB (SEE SCANNED REPORT) CREATININE 1.13(A) 0.55 - 1.02 MG/DL OUTSIDE LAB (SEE SCANNED REPORT) EGFR 51(A) >60 ML/MIN OUTSIDE L AB (SEE SCANNED REPORT) POTASSIUM 4.4 3.5 - 5.1 MMOL/L OUTSIDE LAB (SEE SCANNED REPORT) GLUCOSE 197(A) 70 - 110 MG/DL OUTSIDE LAB (SEE SCANNED REPORT) HOURS FASTING OUTSID E LAB (SEE SCANNED REPORT) TRIGLYCERIDES-OU TSIDE LAB OUTSIDE LAB (SEE SCANNED REPORT) CHOLESTEROL-OUTS VENKATESH LAB OUTSIDE LAB (SEE SCANNED REPORT) HDL-OUTSIDE LAB OUTS [place] LAB (SEE SCANNED REPORT) CHOL/HDL RATIO-OUTSIDE LAB OUTSIDE LAB (SEE SCANNED REPORT) LDL (CALCULATED)-OUT SIDE LAB OUTSIDE LAB (SEE SCANNED REPORT) LDL (DIRECT MEASURE)-OUTSIDE LAB OUTSIDE LAB (SEE SCANNED REPORT) HEMOGLOBIN, [id number] LAB OUTSIDE LAB (SEE SCANNED REPORT) PHOSPHORUS-OUTSI DE LAB OUTSIDE LAB (SEE SCANNED REPORT) PTH-OUTSIDE LAB OUTS [place]ATESH LAB (SEE SCANNED REPORT) MICROALBUMIN RATIO-OUTSIDE LAB OUTSIDE LAB (SEE SCANNED REPORT) PROTEIN, UA-OUTSIDE LAB TRACE(A) NEGATIVE OUTSIDE LAB (SEE SCANNED REPORT) HGB OUTSIDE LA B (SEE SCANNED REPORT) 04/13/2024 us Christopher Dasilva MD LABORATORY Final Result OUTSIDE LAB (SEE SCANNED REPORT) * CTA CHEST NON-CORONARY W CONTRAST (04/13/2024) Anatomical Region Laterality Modality Chest, Cardio, Body Other 04/13/2024 us Christopher Dasilva MD RAD CT Final Result * XR CHEST 1 VIEW (04/13/2024) Anatomical Region Laterality Modality Chest Other 04/13/2024 us Christopher Dasilva MD RADIOLOGY (RAD GENERAL) Final Result documented in this encounter Advance [...] Power of Attor elizabeth? No Care Teams Gas Meter Installer Helper Relationship Specialty Start Date End Date Ronald Cortes MD PCP - General 06/10/02 documented as of this encounter
--- OUTSIDE RECORDS SUMMARY | 2024-07-09 10:32 | External Medical Summary | Summary of Care ---
Author Name Unknown Organization [facility] Address [address] [place] [address] Phone [phone] Care Team Providers Care Correctional Officer Sergeant Name Role Phone Ronald Cortes MD Primary Care Provider [phone] Encounter Details Date Type Department Care Team (Late st Contact Info) Description 05/03/2024 Orders Only [facility] [address] [place] [address] Ronald Cortes MD [address] [place] [address] Allergies Active Allergy Reactions Criticality Noted Date Comments Bee Venom Anaphylaxis High 02/27/2006 Doxycycline Low 08/04/2023 Intolerant, GI upset documented as of this encounter (statuses as of 05/03/2024) Medications CALCIUM + D 600-200 MG-UNIT PO TABS 1 BID 0 03/13/20 06 Active MULTIVITAMINS PO TABS daily 0 03/13/20 06 Active ACETAMINOPHEN 325 MG PO TABSIndications:IN TERFACED RESULT,Pneumothora x 2 Tab Oral Every 6 hours as needed for fever, pain, headache 1 Tab 0 07/28/19 14 Active [place]-3 Fatty Acids (FISH OIL) 1000 MG Capsule [...] Cough. 54 g 3 02/08/20 Active Tiotropium [place] Monohydrate 18 MCG Inhalation Capsule (Spiriva HandiHaler) [...] as of this encounter (statuses as of 05/03/2024) Active Problems Problem Noted Date Diagnosed Date [...] as of this encounter (statuses as of 05/03/2024) Resolved Problems Problem Noted Date Diagnosed Date [...] as of this encounter (statuses as of 05/03/2024) Immunizations Name Administration Dates Next Due COVID-19, [...] file Not on file Not on file Director Records Management Not on file Not on file Not [...] 05/16/2024 8:50 AM EST Office Visit Ophthalmology, [facility] [address] [facility] [place] [address] Hitesh Gordillo, DO [address] [place] [address] 05/23/2024 2:00 PM EST Office Visit Pulmonary Medicine, [facility] [address] [facility] [place] [address] Marbin Serrano MD [address] [place] [address] 06/07/2024 8:30 AM EST Office Visit Cardiology, [facility] [address] [facility] [place] [address] Pepe Lennon, [address] [facility] [place] [address] 07/13/2024 3:30 PM EDT Imaging Radiology [facility] [address] [facility] [place] [phone] Scheduled Procedures Name Priority Associated Diagnoses Date/Ti me COLONOSCOPY FLEXIBLE PROXIMA L DIAGNOSTIC Recall Encounter for screening colonoscopy Health Maintenance Due Date Last Done Comments DISCUSS TOBACCO CESSATION (REFER TO SMARTSET #2296) 1950 Alpha-1 Antitrypsin 1967 Cologuard 1994 Sigmoidoscopy [...] D LEVEL ONCE IN A LIFETIME-USE SMARTSET# 73048 Completed 03/22/2015 Pneumococcal Vaccine: 50+ Years Completed [...] this encounter Medical Devices Implanted Type Area Antique Clocks Repairer Device Identifier Shelf Expiration Date Model / Serial / Lot Chip Cancellous [facility] [id number] - [id number] Implanted:Qty: 1 on 08/08/2013 at [place] [facility] [place] Tissue - Human Left: Foot MUSCULOSKELETAL TRANSPLANT FND 07/24/2015 [id number] / [id number] / Screw Nonlock 3.5 X 24 - [id number] Implanted:Qty: 1 on 08/08/2013 at OR [facility] [place] Left: Foot ORTHOHELIX SURGICAL DESIGNS SUPPORT TEAM MEMBER-011-3 5-24 / / Screw Locking 3.5 X 16 - [id number] Implanted:Qty: 2 on 08/08/2013 at OR [facility] [place] Left: Foot ORTHOHELIX SURGICAL DESIGNS SUPPORT TEAM MEMBER-021-3 5-16 / / Plate 6 Hole Beta Mxl-0026 - [id number] Implanted:Qty: 1 on 08/08/2013 at OR [facility] [place] Left: Foot ORTHOHELIX SURGICAL DESIGNS MXL-0026 / / Screw Locking 3.5 X 20 - [id number] Implanted:Qty: 1 on 08/08/2013 at [place] [facility] [place] Left: Foot ORTHOHELIX SURGICAL DESIGNS SUPPORT TEAM MEMBER-021-3 5-20 / / Screw Nonlock 3.5 X 16 - [id number] Implanted:Qty: 1 on 08/08/2013 at [place] [facility] [place] Left: Foot ORTHOHELIX SURGICAL DESIGNS SUPPORT TEAM MEMBER-011-3 5-16 / / Screw Nonlock 3.5 X 18 - [id number] Implanted:Qty: 1 on 08/08/2013 at [place] [facility] [place] Left: Foot ORTHOHELIX SURGICAL DESIGNS SUPPORT TEAM MEMBER-011-3 5-18 / / Screw Nonlock 3.5 X 14 - [id number] Implanted:Qty: 1 on 08/08/2013 at OR [facility] [place] Left: Foot ORTHOHELIX SURGICAL DESIGNS SUPPORT TEAM MEMBER-011-3 5-14 / / 4.0 X 3.0 Short Max Torque Implanted:Qty: 1 on 08/08/2013 at [place] [facility] [place] Left: Foot ORTHOHELIX SURGICAL DESIGNS MSD-010-4 0-030S / / 4.0 X 32.5 Short Max Torque Implanted:Qty: 1 on 08/08/2013 at [place] [facility] [place] Left: Foot MSD-010-4 0-325S / / 4.0 X 28 Short Max Torque Implanted:Qty: 1 on 08/08/2013 at [place] [facility] [place] Left: Foot ORTHOHELIX SURGICAL DESIGNS MSD-010-4 0-028S / / 4.0 X 22 Short Max Torque Implanted:Qty: 1 on 08/08/2013 at OR [facility] [place] Left: Foot ORTHOHELIX SURGICAL DESIGNS MSD-010-4 0-022S / / [place]he Flat Gold 4.0 - [id number] Implanted:Qty: 1 on 08/08/2013 at OR [facility] [place] Left: Foot ORTHOHELIX SURGICAL DESIGNS CSS-500-4 0A / / Plate Lps Alpha 2 Slot - [id number] Implanted:Qty: 1 on 08/08/2013 at OR [facility] [place] Left: Foot ORTHOHELIX SURGICAL DESIGNS MXL-002-2 A / / Screw Variable 3.5 X 12mm - [id number] Implanted:Qty: 1 on 08/08/2013 at OR [facility] [place] Left: Foot ORTHOHELIX SURGICAL DESIGNS RAKESH-031-3 5-12 / / Screw Variable 3.5 X 18mm - [id number] Implanted:Qty: 1 on 08/08/2013 at [place] [facility] [place] Left: Foot ORTHOHELIX SURGICAL DESIGNS RAKESH-031-3 5-18 / / documented as of this encounter Procedures Procedure Name Priority Date/Time Associated Diagnosis Comments CHEMISTRY-OUTSIDE Routine 05/02/2024 documented in this encounter Results * (ABNORMAL) CHEMISTRY-OUTSIDE (05/02/2024) Not all results display below - see scan for full detail OUTSIDE LAB (SEE SCANNED REPORT) Comment:SCAN INCLUDES - E.R. LABS: CBCD, D-DIMER, LACTATE LEVEL CREATININE OUTSIDE L AB (SEE SCANNED REPORT) [...] LAB OUTSIDE LAB (SEE SCANNED REPORT) HEMOGLOBIN, [id number] LAB OUTSIDE LAB (SEE SCANNED REPORT) PHOSPHORUS-OUTSID E LAB OUTSIDE LAB (SEE SCANNED REPORT) PTH-OUTSIDE LAB OUTS VENKATESH LAB (SEE SCANNED REPORT) MICROALBUMIN RATIO-OUTSIDE LAB OUTSIDE LA B (SEE SCANNED REPORT) PROTEIN, UA-OUTSIDE LAB OUTSIDE LAB (SEE SCANNED REPORT) HGB 10.8(A) 12.0 - 16.0 GM/DL OUTSIDE LAB (SEE SCANNED REPORT) 05/02/2024 us History Per Patient LABORATORY Final Result OUTSIDE LAB (SEE SCANNED [...] Power of Attor elizabeth? No Care Teams Correctional Officer Sergeant Relationship Specialty Start Date End Date Ronald Cortes MD PCP - General 06/10/02 documented as of this encounter
--- OUTSIDE RECORDS SUMMARY | 2024-07-09 10:33 | External Medical Summary | Summary of Care ---
Author Name Unknown Organization [facility] Address [address] [facility] [place] [address] Phone [phone] Care Team Providers Care Telegraph Dispatcher Name Role Phone Ronald Cortes MD Primary Care Provider [phone] Encounter Details Date Type Department Care Team (Late st Contact Info) Description 04/14/2024 Orders Only [facility] [address] [place] [address] Ronald Cortes MD [address] [place] [address] Allergies Active Allergy Reactions Criticality Noted Date [...] headache 1 Tab 0 07/28/19 14 Active Fish [place]-3 Fatty Acids (FISH OIL) 1000 MG Capsule [...] Cough. 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 Not on file Not [...] 1:00 PM EST Office Visit [facility] [address] [place] [address] Hitesh Gordillo, [address] [place] [address] 05/23/2024 2:00 PM EST Office Visit Pulmonary Medicine, [facility] [address] [facility] [place] [id number] Marbin Serrano MD [address] [place] [id number] 06/07/2024 8:30 AM EST Office Visit Cardiology, [facility] [address] [facility] [place] [address] Pepe Lennon DO [address] [facility] [place] [id number] 07/13/2024 3:30 PM EDT Imaging Radiology [facility] [address] [facility] [place] [id number] Scheduled Procedures Name Priority Associated Diagnoses Date/Ti me COLONOSCOPY FLEXIBLE PROXIMA L DIAGNOSTIC Recall Encounter for screening colonoscopy Health Maintenance Due Date Last Done Comments DISCUSS TOBACCO CESSATION (REFER TO SMARTSET #3452) 1950 Alpha-1 Antitrypsin 1967 Cologuard 1994 Sigmoidoscopy [...] D LEVEL ONCE IN A LIFETIME-USE SMARTSET# 37834 Completed 03/22/2015 Pneumococcal Vaccine: 50+ Years Completed [...] this encounter Medical Devices Implanted Type Area Regional Manager Device Identifier Shelf Expiration Date Model / Serial / Lot Chip [facility] [id number] - [id number] Implanted:Qty: 1 on 08/08/2013 at OR [facility] Tissue - Human Left: Foot MUSCULOSKELETAL TRANSPLANT FND 07/24/2015 [id number] / [id number] / Screw Nonlock 3.5 X 24 - [id number] Implanted:Qty: 1 on 08/08/2013 at OR [facility] Left: Foot [employer] PRETZEL TWISTER-011-3 5-24 / / Screw Locking 3.5 X 16 - [id number] Implanted:Qty: 2 on 08/08/2013 at OR [facility] Left: Foot [employer]THOHEL[employer] PRETZEL TWISTER-021-3 5-16 / / Plate 6 Hole Beta Mxl-0026 - [id number] Implanted:Qty: 1 on 08/08/2013 at OR [facility] Left: Foot [employer] MXL-0026 / / Screw Locking 3.5 X 20 - [id number] Implanted:Qty: 1 on 08/08/2013 at OR [facility] Left: Foot ORTHOHEL[employer]IGNS PRETZEL TWISTER-021-3 5-20 / / Screw Nonlock 3.5 X 16 - [id number] Implanted:Qty: 1 on 08/08/2013 at OR [facility] Left: Foot [employer]HEL[employer] PRETZEL TWISTER-011-3 5-16 / / Screw Nonlock 3.5 X 18 - [id number] Implanted:Qty: 1 on 08/08/2013 at OR [facility] Left: Foot [employer]TH[employer]HEL[employer] PRETZEL TWISTER-011-3 5-18 / / Screw Nonlock 3.5 X 14 - [id number] Implanted:Qty: 1 on 08/08/2013 at OR [facility] Left: Foot [employer] PRETZEL TWISTER-011-3 5-14 / / 4.0 X 3.0 Short [...] / / [place] Gold 4.0 - [id number] Implanted:Qty: 1 on 08/08/2013 at OR [facility] Left: Foot [employer] CSS-500-4 0A / / Plate Lps Alpha 2 Slot - [id number] Implanted:Qty: 1 on 08/08/2013 at OR [facility] Left: Foot [employer]TH[employer] MXL-002-2 A / / Screw Variable 3.5 X 12mm - [id number] Implanted:Qty: 1 on 08/08/2013 at OR [facility] Left: Foot ORTHOHEL[employer]IGNS RAKESH-031-3 5-12 / / Screw Variable 3.5 X 18mm - [id number] Implanted:Qty: 1 on 08/08/2013 at OR [facility] Left: Foot [employer]TH[employer]HEL[employer]NS RAKESH-031-3 5-18 / / documented as of this encounter Procedures Procedure Name Priority Date/Time Associated Diagnosis Comments CHEMISTRY-OUTSIDE Routine 04/13/2024 documented in this encounter Results * (ABNORMAL) CHEMISTRY-OUTSIDE (04/13/2024) Not all results display below - see scan for full detail OUTSIDE LAB (SEE SCANNED REPORT) Comment:BMP, CBC CREATININE 0.93 0.55 - 1.02 MG/DL OUTSIDE LAB (SEE SCANNED REPORT) EGFR 65 OUTSIDE LA B (SEE SCANNED REPORT) POTASSIUM 4.0 3.5 - 5.1 MMOL/L OUTSIDE LAB (SEE SCANNED REPORT) GLUCOSE 117(A) 70 - 110 MG/DL OUTSIDE LAB (SEE [...] LAB OUTSIDE LAB (SEE SCANNED REPORT) HEMOGLOBIN, [id number]-[id number] LAB OUTSIDE LAB (SEE SCANNED REPORT) PHOSPHORUS-OUTSID E LAB OUTSIDE LAB (SEE SCANNED REPORT) PTH-OUTSIDE LAB OUTS [facility] LAB (SEE SCANNED REPORT) MICROALBUMIN RATIO-OUTSIDE LAB OUTSIDE LA B (SEE SCANNED REPORT) PROTEIN, UA-OUTSIDE LAB OUTSIDE LAB (SEE SCANNED REPORT) HGB 9.6(A) 12.0 - 16.0 G/DL OUTSIDE LAB (SEE SCANNED REPORT) 04/13/2024 us Jorge Anderson MD LABORATORY Final Result OUTSIDE LAB (SEE [...] Power of Attor elizabeth? No Care Teams Telegraph Dispatcher Relationship Specialty Start Date End Date Ronald Cortes MD PCP - General 06/10/02 documented as of this encounter
[2024-07-09 11:58] VITALS: BP 102/66; TEMP 97.9; O2SAT 95
--- NOTE | 2024-07-09 12:16 | Electrocardiogram Report ---
Test Reason : Blood Pressure : */* mmHG Vent. Rate : 101 BPM Atrial Rate : 101 BPM P-R Int : 134 ms QRS Dur : 72 ms QT Int : 424 ms P-R-T Axes : 76 71 236 degrees QTcB Int : 549 ms Sinus tachycardia Possible Left atrial enlargement Minimal voltage criteria for LVH, may be normal variant ( Sokolow-Oden ) Marked ST abnormality, possible lateral subendocardial injury Prolonged QT Abnormal ECG When compared with ECG of 25-Mar-2024 14:59, Significant changes have occurred Confirmed by Emily Patterson ([id number]) on 07/09/2024 12:16:45 PM Referred By: REFERRED SELF Confirmed By: Emily Patterson
--- NOTE | 2024-07-09 12:17 | Electrocardiogram Report ---
Test Reason : Blood Pressure : */* mmHG Vent. Rate : 82 BPM Atrial Rate : 82 BPM P-R Int : 126 ms QRS Dur : 86 ms QT Int : 484 ms P-R-T Axes : 68 67 241 degrees QTcB Int : 565 ms Normal sinus rhythm Possible Left atrial enlargement Marked ST abnormality, possible anterior subendocardial injury Marked ST abnormality, possible lateral subendocardial injury Prolonged QT Abnormal ECG When compared with ECG of 08-Jul-2024 20:16, (unconfirmed) T wave abnormality is more pronounced Confirmed by Emily Patterson (Carolynn) on 07/09/2024 12:17:33 PM Referred By: REFERRED SELF Confirmed By: Emily Patterson
--- NOTE | 2024-07-09 12:18 | Electrocardiogram Report ---
Test Reason : Blood Pressure : */* mmHG Vent. Rate : 78 BPM Atrial Rate : 78 BPM P-R Int : 140 ms QRS Dur : 82 ms QT Int : 502 ms P-R-T Axes : 71 78 262 degrees QTcB Int : 572 ms Normal sinus rhythm Minimal voltage criteria for LVH, may be normal variant ( Sokolow-Oden ) Septal infarct , age undetermined Marked ST abnormality, possible lateral subendocardial injury Marked ST abnormality, possible anterior subendocardial injury Prolonged QT Abnormal ECG When compared with ECG of 08-Jul-2024 20:16, (unconfirmed) No significant change was found Confirmed by Emily Patterson (1968) on 07/09/2024 12:18:05 PM Referred By: REFERRED SELF Confirmed By: Emily Patterson
--- NOTE | 2024-07-09 12:58 | Communication Note ---
Patient has complicated UTI, without signs or symptoms of systemic toxicity or pyelonephritis. ECG similar to prior, with deepened T waves. No chest pain. Troponins minimally elevated On exam, cachexia noted, RRR. Unlikely to be ACS, will check echo, discharge if unchanged, will consider cardiology consult if echo worsened. Date of Service: July 09, 2024
--- NOTE | 2024-07-09 14:28 | Discharge Summary ---
Discharge Summary Date of Service July 09, 2024 Principal Dx & Hospital Course #1 = Principal Diagnosis (1) Abnormal [age]-year-old female with past medical history significant for chronic respiratory failure with hypoxia on 2 to 3 L oxygen at home, dyslipidemia, hypothyroidism, chronic nonspecific lung disease, COPD, hypertension, CAD status post stent, atrial fibrillation, tobacco use disorder, general anxiety disorder, generalized osteoarthritis, migraines, ambulatory dysfunction who lives at home with her daughter comes because of weakness and UTI. Patient says since last 1 week she is having burning micturition. Denies any blood in the urine. Also having a lot of diarrhea. Says stools are dark in color. Has some abdominal discomfort. Had low-grade temperature today. Lately also having some cough and shortness of breath. Denies any chest pain. Has mild headache now. Vision is okay. Has chronic runny nose. No sore throat. In March 2024 she was admitted for fall and found to have fracture of the distal end of left humerus and was transferred to [facility]. Patient had surgery at [facility]. Patient states she has titanium valerie in her left elbow region. And since surgeries the elbow region is infected. She has a open wound there. Currently following with the orthopedics in [place] and says has appointment on July 13. Superficial wound cultures of the left elbow checked as outpatient by PCP on 07/05/2024 growing normal hans. Patient states she has rollator walker and cane and wheelchair at home and use them as needed. She states appetite is down. Says she lost several pounds of weight because of lack of appetite and not able to eat much because of abdominal discomfort. Abnormal EKG ST depression lateral leads Mild elevation of troponin initial 15 repeat 19 Has some shortness of breath. Denies chest pain. CTA chest no acute findings Will follow serial cardiac enzymes and echo and repeat EKG Telemetry Consult cardiology in a.m. for further recommendations Prolonged QTc QTc 572 Will hold trazodone and citalopram Replacing magnesium Avoid QT prolonging drugs Follow repeat EKG in a.m. Acute UTI Start on Rocephin Will follow cultures Abdominal discomfort CT scan no acute findings 2.3 cm abdominal arctic and rhythm Patient also complains significant weight loss Will do abdominal mesenteric artery ultrasound Needs follow-up Diarrhea Will follow stool studies Stool for Hemoccult Left elbow wound Since surgery for left distal humerus fracture in March 2024 Following with orthopedics Recent cultures normal hans Currently on Rocephin Wound care consult followup with ortho Chronic respiratory failure On home oxygen COPD Nonspecific lung disease Continue home inhalers and nebs as needed History of CAD s/p stents On statin, Coreg, Plavix A-fib On Coreg and Eliquis Hypertension On Coreg, losartan and Lasix with potassium supplement Will monitor Hypothyroidism On Synthyroid TSH is okay GERD On Protonix Hyperlipidemia On statin Tobacco use Needs counseling Generalized anxiety disorder On citalopram and trazodone Currently holding for prolonged QTc DVT prophylaxis On Eliquis Disposition Med/telemetry Full code. Notes For Next Care Provider 74-year-old female with past medical history significant for chronic respiratory failure with hypoxia on 2 to 3 L oxygen at home, dyslipidemia, hypothyroidism, chronic nonspecific lung disease, COPD, hypertension, CAD status post stent, atrial fibrillation, tobacco use disorder, general anxiety disorder, generalized osteoarthritis, migraines, ambulatory dysfunction who lives at home with her daughter comes because of weakness and UTI. On medicine, treated for UTI. Troponins downtrended. Prolonged QTc, on many medications at home that can prolong QTc. Potassium repleted. ECG with deeper T waves but unchanged in pattern from prior. Given downtrended trops, no chest pain, relatively unchanged from prior, patient stable for discharge. Medication Changes From Visit -pyridium, augmentin Admission HPI Per Admitting Provider 74-year-old female with past medical history significant for chronic respiratory failure with hypoxia on 2 to 3 L oxygen at home, dyslipidemia, hypothyroidism, chronic nonspecific lung disease, COPD, hypertension, CAD status post stent, atrial fibrillation, tobacco use disorder, general anxiety disorder, generalized osteoarthritis, migraines, ambulatory dysfunction who lives at home with her daughter comes because of weakness and UTI. Patient says since last 1 week she is having burning micturition. Denies any blood in the urine. Also having a lot of diarrhea. Says stools are dark in color. Has some abdominal discomfort. Had low-grade temperature today. Lately also having some cough and shortness of breath. Denies any chest pain. Has mild headache now. Vision is okay. Has chronic runny nose. No sore throat. In March 2024 she was admitted for fall and found to have fracture of the distal end of left humerus and was transferred to [facility]. Patient had surgery at [facility]. Patient states she has titanium valerie in her left elbow region. And since surgeries the elbow region is infected. She has a open wound there. Currently following with the orthopedics in [place] and says has appointment on July 13. Superficial wound cultures of the left elbow checked as outpatient by PCP on 07/05/2024 growing normal hans. Patient states she has rollator walker and cane and wheelchair at home and use them as needed. She states appetite is down. Says she lost several pounds of weight because of lack of appetite and not able to eat much because of abdominal discomfort. Past medical history. As mentioned above Past surgical history. Bone marrow aspiration. Colonoscopy. Exploration of abdomen. Ligation oviducts. Appendectomy. Cholecystectomy. Left repair of ruptured rotator cuff. Sigmoidoscopy with biopsy. Social history. . Smoked 0.6 pack a day for 70 years. No alcohol use. No drug use. Family history. Mother had diabetes. A-fib. Hypertension. Stroke. Aunt had breast cancer. Paternal grandfather had lung cancer. Father had diabetes. Brain cancer. Discharge Exam Gen: A&O 3 NAD HEENT: NCAT, EOMI, not icteric. External ears normal. No rhinorrhea. Moist mucous membranes. Neck: Supple, full range of motion, no observable masses, No meningeal sign. Lungs: No Respiratory distress. CV: RRR, no edema. Abdomen: Soft, nondistended, No rebound tenderness. MSK: No joint swelling, no redness. Skin: No rashes, petechiae, lesions. Normal color per patient. Neuro: Normal Gait, Grossly intact. Psych: Appropriate for situation. Updated Medication List Medication Instructions Recorded Confirmed Type multivitamin 1 tab PO DAILY #0 tabs 02/07/14 07/09/24 History omega 2-wot-acu-fish oil 1,000 mg 1 cap PO DAILY #0 caps 04/22/17 07/09/24 History (120 mg-180 mg) capsule (Fish Oil) magnesium oxide 400 mg PO BID #0 tabs 06/01/17 07/09/24 History apixaban 5 mg tablet (Eliquis) 5 mg PO BID 12/06/23 07/09/24 History atorvastatin 40 mg tablet 40 mg PO QAM 12/06/23 07/09/24 History citalopram 40 mg tablet 40 mg PO QAM 12/06/23 07/09/24 History clopidogrel 75 mg tablet 75 mg PO QAM 12/06/23 07/09/24 History fluticasone propionate 115 2 puff inhalation AMHS 12/06/23 07/09/24 History mcg-salmeterol 21 mcg/actuation HFA inhaler gabapentin 300 mg capsule 300 mg PO BID 12/06/23 07/09/24 History levothyroxine 25 mcg tablet 25 mcg PO DAILYBB 12/06/23 07/09/24 History oxybutynin chloride 5 mg 5 mg PO QAM 12/06/23 07/09/24 History tablet,extended release 24 hr potassium chloride 10 mEq 10 meq PO AMHS 12/06/23 07/09/24 History tablet,extended release(part/cryst) (Klor-Con M) nitroglycerin 0.4 mg sublingual 0.4 mg sublingual Q5M PRN chest 12/09/23 07/09/24 Rx tablet (Nitrostat) pain #30 tabs umeclidinium 62.5 mcg/actuation 1 inh inhalation DAILY #30 ea 12/14/23 07/09/24 Rx blister powder for inhalation (Incruse Ellipta) ipratropium 0.5 mg-albuterol 3 mg 3 ml NEB QIDR PRN shortness of 12/28/23 07/09/24 Rx (2.5 mg base)/3 mL nebulization breath #90 mL soln albuterol sulfate 90 mcg/actuation 2 puff inhalation Q4 PRN WHEEZING 01/30/24 07/09/24 History aerosol inhaler OR COUGH pantoprazole 40 mg tablet,delayed 40 mg PO QAM 01/30/24 07/09/24 History release (Protonix) tiotropium bromide 18 mcg capsule 1 cap inhalation QAM 03/02/24 07/09/24 History with inhalation device alendronate 70 mg tablet 70 mg PO WK 03/15/24 07/09/24 History cholecalciferol (vitamin D3) 50 50 mcg PO DAILY 03/24/24 07/09/24 History mcg (2,000 unit) tablet (Vitamin D3) furosemide 40 mg tablet 20 mg PO QAM 03/24/24 07/09/24 History carvedilol 6.25 mg tablet 6.25 mg PO BID #60 tabs 04/01/24 07/09/24 Rx losartan 50 mg tablet 100 mg (2 x 50 mg) PO QAM #30 tabs 04/01/24 07/09/24 Rx oxycodone 5 mg tablet 5 mg PO Q4H PRN pain #15 tabs 04/01/24 07/09/24 Rx amoxicillin 500 mg-potassium 1 tab PO BID 7 days #14 tabs 07/09/24 Rx clavulanate 125 mg tablet (Augmentin) phenazopyridine 200 mg tablet 200 mg PO TID PRN pain #30 tabs 07/09/24 Rx (Pyridium) trazodone 50 mg tablet 50 - 100 mg PO HS 07/09/24 07/09/24 History Hospital Stay Data Consultations 07/08/24 23:48 ED Decision to Admit Stat Diagnostic Imagining Performed 07/08/24 21:40 CT Abd and Pelvis [CT abd pelvis IV con only] Stat CT angio chest PE protocol Stat 07/09/24 03:28 US duplex mesenteric Routine Pending Results Patient Have Any Pending Studies at Discharge: No Discharge Instructions Given to Patient (Per Discharging Provider) 1. Please follow up with PCP and supervisor central supply (within 2 weeks) to discuss echo findings. 2. Please take medications as prescribed, and finish course of abx. Total Time Total Time Spent Total Time Spent (In Minutes): I spent a total of 35 minutes in direct patient care, including [id number] time with the patient and/or family, reviewing medical records, ordering and reviewing diagnostic tests, and coordinating care with other healthcare providers. This time includes: history taking, physical examination, medical decision making, counseling, ECG interpretation, imaging interpretation, lab interpretation, orders, and education, excluding time spent in the performance of separately billed services.
[2024-07-09] MEDS ORDERED: cefTRIAXone SODIUM 2,000 MG/50 ML BAG IV SCH (22:30)
== END 2024-07-09 14:54 | disposition home or self-care (01) | DRG 315 ==
LOC: ED 20:09 → 2N 07-09 01:55 → INTOOBSV 07-09 01:55 → 2N 07-09 02:41

== ENCOUNTER 2024-07-11 22:36 | Inpatient (IN) ==
[2024-07-11] MEDS: methylPREDNISolone 125 MG/2 ML VIAL IV STA (22:52)
[2024-07-11] MEDS: ONDANSETRON INJ 2 MG/ML 2 ML VIAL IV STA (22:53)
[2024-07-11] MEDS: MAGNESIUM SULFATE / D5W 1 GM/100 ML BAG IV STA (22:53)
[2024-07-11] MEDS: dilTIAZem HCl 5 MG/ML 5 ML VIAL IV STA (22:53)
[2024-07-11 23:25] LABS: Albumin Globulin Ratio 0.8 (0.9-2); Albumin Level 3.1 gm/dl (3.4-5.0); BUN Creatinine Ratio 9.9 (10-20); Bilirubin,Total 0.3 mg/dl (0.2-1.0); Calcium 8.7 mg/dl (8.6-10.3); Globulin 3.8 gm/dl (2.5-4.0); Potassium 3.9 mmol/L (3.5-5.1); Total Protein 6.9 gm/dl (6.0-8.3)
[2024-07-11 23:31] LABS: Troponin I High Sensitivity 15.2 pg/ml (0-14)
[2024-07-11 23:32] LABS: Partial Thromboplastin Ratio 0.9; Partial Thromboplastin Time 25 Seconds (21-31); Prothrombin Time 10.7 Seconds (9.0-12.0)
[2024-07-11 23:48] LABS: Adenovirus PCR Not Detected (NotDetected); Bordetella parapertussis PCR Not Detected (NotDetected); Bordetella pertussis PCR Not Detected (NotDetected); Chlamydia pneumoniae PCR Not Detected (NotDetected); Coronavirus 229E PCR Not Detected (NotDetected); Coronavirus CoV-2 (COVID19)PCR Not Detected (NotDetected); Coronavirus HKU1 PCR Not Detected (NotDetected); Coronavirus NL63 PCR Not Detected (NotDetected); Coronavirus OC43PCR Not Detected (NotDetected); Human Metapneumovirus PCR Not Detected (NotDetected); Influenza A PCR Not Detected (NotDetected); Influenza B PCR Not Detected (NotDetected); Mycoplasma pneumoniae PCR Not Detected (NotDetected); Parainfluenza Virus 1 PCR Not Detected (NotDetected); Parainfluenza Virus 2 PCR Not Detected (NotDetected); Parainfluenza Virus 3 PCR Not Detected (NotDetected); Parainfluenza Virus 4 PCR Not Detected (NotDetected); Respiratory Syncytial VirusPCR Not Detected (NotDetected); Rhinovirus/Enterovirus PCR Not Detected (NotDetected)
--- NOTE | 2024-07-11 23:52 | Emergency Department Note ---
Impression & Plan Atrial fibrillation with RVR, COPD (chronic obstructive pulmonary disease) ED Provider Note CHIEF COMPLAINT: Shortness of breath HISTORY OF PRESENT ILLNESS: This 74-year-old female patient with past medical history of COPD, paroxysmal atrial fibrillation on chronic anticoagulation, CAD, hypertension, dyslipidemia,presents emergency department with complaints of shortness of breath. Patient has a long history of COPD and began to feel short of breath this evening. She did give herself a breathing treatment prior to calling the ambulance. She received 2 DuoNebs in route. Patient was recently hospitalized last week for similar presentation. REVIEW OF SYSTEMS: A review of systems was performed with positives and pertinent negatives listed in the history of present illness. 10 systems were reviewed and are otherwise negative. ALLERGIES: see below MEDICATIONS: see below PMH: see below SOCIAL HISTORY: see below DDx: cardiac arrhythmia, dehydration, pneumonia, COPD exacerbation, electrolyte abnormality among others. PHYSICAL EXAM: Vital signs reviewed. General: Chronically ill-appearing, thin and frail 74-year-old female, in some respiratory discomfort HEENT: No scleral icterus, PERRLA, neck supple. Right periorbital ecchymosis Cardiovascular: Tachycardic and irregular Pulmonary: Coarse breath sounds bilaterally increased work of breathing. Abdomen: Soft, nontender, nondistended, positive bowel sounds. Musculoskeletal: Atraumatic, no peripheral edema. Neurologic: Patient awake alert and oriented x 3, speech is clear Skin: Warm, dry, no rash . Right periorbital Ecchymosis as above. EMERGENCY DEPARTMENT COURSE/MDM: this patient was evaluated and appeared to be in no significant distress. IV access was obtained and laboratory work was drawn. The patient was placed on BiPAP with stabilization of her oxygenation. Chest x-ray was performed and reveals COPD, no focal lung consolidation or failure. EKG reveals anterior lateral T wave inversions not seem to be baseline. Patient was medicated with 1 g of IV magnesium, 10 mg of IV Cardizem for atrial fibs with RVR. She did receive IV Zofran and 60 mg of Solu-Medrol. A DuoNeb was given in the emergency department. Patient does have a slight elevation of the high-sensitivity troponin which is likely secondary to demand mediated process. Case was discussed with the hospitalist service who will evaluate the patient for admission and further management. Patient is aware of the plan and agrees. MONITORING: An order for cardiac monitoring was placed and the patient is noted to be in a rapid atrial fibrillation at 164 per minute. RADIOLOGY: chest x-ray to my interpretation reveals evidence of COPD, no focal lung consolidation or failure. EKG: To my interpretation reveals atrial fibrillation with RVR at 103 bpm. Diffuse T wave inversions in the anterior lateral leads, QTc of 463. DISPOSITION: Admit I have personally spent greater than 40 minutes of critical care time in the direct management of this patient. This includes bedside care, interpretation of diagnostic studies, and testing, discussion with consultants, patient, and family members, and other required patient management activities. This 40 minutes is in excess of all separately billable procedures. Past Med/Surg History Problem List (Updated 07/17/24 @ 21:51 by Meghan Jim MD) COPD (chronic obstructive pulmonary disease) (Acute) Atrial fibrillation with RVR (Acute) Delayed wound healing Atrial fibrillation with RVR SOB (shortness of breath) Hypomagnesemia (Acute) Cellulitis of arm, left (Acute) Weakness (Acute) Elevated troponin (Acute) Abnormal ECG (Acute) Acute UTI (Acute) S/P ORIF (open reduction internal fixation) fracture Acute blood loss anemia Chronic anemia Hypomagnesemia Left humeral fracture Contusion of left knee Asymptomatic hypertensive urgency Acute pain of left knee (Acute) Anticoagulant long-term use (Acute) Contusion of face (Acute) Fracture of distal end of left humerus (Acute) Fall (Acute) Acute on chronic anemia E. coli UTI Acute dehydration (Acute) COPD (chronic obstructive pulmonary disease) (Acute) GUTIERREZ (acute kidney injury) (Acute) COPD (chronic obstructive pulmonary disease) (Acute) Acute and chronic postprocedural respiratory failure (Acute) COPD with exacerbation Acute on chronic respiratory failure with hypoxia and hypercapnia (Acute) COPD (chronic obstructive pulmonary disease) (Acute) Dyslipidemia, goal LDL below 70 PAF (paroxysmal atrial fibrillation) Uncontrolled hypertension ASCVD (arteriosclerotic cardiovascular disease) Chest pain at rest Thickened endometrium Elevated brain natriuretic peptide (BNP) level (Acute) Nausea & vomiting (Acute) Chest pain (Acute) Asthma exacerbation (Acute) Gastroenteritis (Acute) Fall in home (Acute) CHI (closed head injury) (Acute) Scalp laceration (Acute) Facial laceration (Acute) Heart disease HTN (hypertension) Kidney disease Bronchitis Fall in home (Acute) Hyponatremia (Acute) Hypokalemia (Acute) Abdominal pain Diarrhea Vomiting Medical History Acute metabolic encephalopathy Myocardial infarction due to demand ischemia Suspected urinary tract infection Severe sepsis with acute organ dysfunction Sepsis Epigastric abdominal tenderness Intravascular volume depletion Non-ST elevation [place] (NSTEMI) Acute dyspnea Generalized weakness Elevated troponin level Absent pedal pulses Macular degeneration Asthma Tobacco use disorder Coronary atherosclerosis of [place] coronary vessel Benign hypertension Atrial fibrillation Diabetes Surgical History H/O heart surgery History of cholecystectomy Hx of tubal ligation Social History Smoking Status: Current every day smoker Tobacco Type: Cigarettes Cigarettes Per Day: 5; Second Hand Exposure: No; Do You Dip or Chew Tobacco: No; Hx Alcohol Use: No Hx Substance Use: No Preferred Language: Qatari Communication Ability: Effective Automatic Beading Lathe Operator Required: No Beliefs That Will Affect Care: None Current Living Situation: Family Current Living Situation Comment: with daughter Feels Safe at Home: Yes Assistive Devices: Cane, Oxygen - Continuous, Walker and Wheelchair Allergies Allergies Allergy/AdvReac Type Severity Reaction Status Date / Time bee venom protein (honey bee) Allergy Severe SWELLING Verified 01/30/24 16:12 SEVERE doxycycline Allergy Intermediate Vomiting Verified 01/30/24 16:12 Home Meds Home Medications Medication Instructions Recorded Confirmed multivitamin 1 tab PO DAILY #0 tabs 02/07/14 07/11/24 omega 5-lmc-ecc-fish oil 1,000 mg 1 cap PO DAILY #0 caps 04/22/17 07/11/24 (120 mg-180 mg) capsule (Fish Oil) magnesium oxide 400 mg PO BID #0 tabs 06/01/17 07/11/24 apixaban 5 mg tablet (Eliquis) 5 mg PO BID 12/06/23 07/11/24 atorvastatin 40 mg tablet 40 mg PO QAM 12/06/23 07/11/24 citalopram 40 mg tablet 40 mg PO QAM 12/06/23 07/11/24 clopidogrel 75 mg tablet 75 mg PO QAM 12/06/23 07/11/24 fluticasone propionate 115 2 puff inhalation [facility] 12/06/23 07/11/24 mcg-salmeterol 21 mcg/actuation HFA inhaler gabapentin 300 mg capsule 300 mg PO BID 12/06/23 07/11/24 levothyroxine 25 mcg tablet 25 mcg PO DAILYBB 12/06/23 07/11/24 oxybutynin chloride 5 mg 5 mg PO QAM 12/06/23 07/11/24 tablet,extended release 24 hr potassium chloride 10 mEq 10 meq PO [facility] 12/06/23 07/11/24 tablet,extended release(part/cryst) (Klor-Con M) albuterol sulfate 90 mcg/actuation 2 puff inhalation Q4 PRN WHEEZING 01/30/24 07/11/24 aerosol inhaler OR COUGH pantoprazole 40 mg tablet,delayed 40 mg PO QAM 01/30/24 07/11/24 release (Protonix) tiotropium bromide 18 mcg capsule 1 cap inhalation QAM 03/02/24 07/11/24 with inhalation device alendronate 70 mg tablet 70 mg PO WK 03/15/24 07/11/24 cholecalciferol (vitamin D3) 50 50 mcg PO DAILY 03/24/24 07/11/24 mcg (2,000 unit) tablet (Vitamin D3) furosemide 40 mg tablet 20 mg PO QAM 03/24/24 07/11/24 Previous Rx's Medication Instructions Recorded nitroglycerin 0.4 mg sublingual 0.4 mg sublingual Q5M PRN chest 12/09/23 tablet (Nitrostat) pain #30 tabs umeclidinium 62.5 mcg/actuation 1 inh inhalation DAILY #30 ea 12/14/23 blister powder for inhalation (Incruse Ellipta) ipratropium 0.5 mg-albuterol 3 mg 3 ml NEB QIDR PRN shortness of 12/28/23 (2.5 mg base)/3 mL nebulization breath #90 mL soln carvedilol 6.25 mg tablet 6.25 mg PO BID #60 tabs 04/01/24 losartan 50 mg tablet 100 mg (2 x 50 mg) PO QAM #30 tabs 04/01/24 oxycodone 5 mg tablet 5 mg PO Q4H PRN pain #15 tabs 04/01/24 amoxicillin 500 mg-potassium 1 tab PO BID 7 days #14 tabs 07/09/24 clavulanate 125 mg tablet (Augmentin) phenazopyridine 200 mg tablet 200 mg PO TID PRN pain #30 tabs 07/09/24 (Pyridium) Results & Data (ED) Vital Signs Vital Signs - 24 hr 07/11/24 22:44 07/11/24 22:45 07/11/24 22:57 Pulse Rate 174 H 158 H 129 H Pulse Rate [Radial] Pulse Rhythm Irregular Irregular Pulse Strength Normal Respiratory Rate 38 H 24 Respiratory Effort / Characteristics Accessory Muscle Use Grunting Labored Short of Breath SOB on Exertion Respiratory Depth Normal Respiratory Pattern Grunting Tachypnea Blood Pressure 142/111 H Blood Pressure [Right Arm] Blood Pressure Mean 121 Blood Pressure Mean [Right Arm] Pulse Oximetry 100 Oxygen Delivery Method BiPAP Fraction of Inspired Oxygen 70 SaO2/FiO2 Ratio 142 Sepsis Recent Fever Within 48 Hours No Sepsis New/Unexplained Change in Mental Status N/A Sepsis Action Taken by Nursing Physician Notified 07/11/24 23:10 07/11/24 23:22 07/11/24 23:32 Pulse Rate 98 H Pulse Rate [Radial] 129 H 80 Pulse Rhythm Pulse Strength Respiratory Rate 20 17 20 Respiratory Effort / Characteristics Non-Labored Spontaneous Non-Labored Spontaneous Non-Labored Spontaneous Respiratory Depth Normal Normal Normal Respiratory Pattern Regular Regular Regular Blood Pressure Blood Pressure [Right Arm] 127/96 128/87 Blood Pressure Mean Blood Pressure Mean [Right Arm] 106 100 Pulse Oximetry 100 96 100 Oxygen Delivery Method BiPAP BiPAP Fraction of Inspired Oxygen 40 40 40 SaO2/FiO2 Ratio 250 250 Sepsis Recent Fever Within 48 Hours Sepsis New/Unexplained Change in Mental Status Sepsis Action Taken by Nursing 07/11/24 23:45 Pulse Rate 84 Pulse Rate [Radial] Pulse Rhythm Pulse Strength Respiratory Rate Respiratory Effort / Characteristics Respiratory Depth Respiratory Pattern Blood Pressure Blood Pressure [Right Arm] Blood Pressure Mean Blood Pressure Mean [Right Arm] Pulse Oximetry Oxygen Delivery Method Fraction of Inspired Oxygen SaO2/FiO2 Ratio Sepsis Recent Fever Within 48 Hours Sepsis New/Unexplained Change in Mental Status Sepsis Action Taken by Assisted Medications Current Medication List: was personally reviewed by me Laboratory Data Attestation: I reviewed the patient's lab results. 07/17/24 08:55 07/17/24 10:46 Lab Results 07/11/24 07/11/24 Range/Units 22:50 22:55 WBC 11.07 H (4.8-10.8) K/ul RBC 3.60 L (4.20-5.40) M/uL Hgb 10.3 L (12.0-16.0) g/dl Hct 34.4 L (37.0-47.0) % MCV 95.6 D (80.0-100.0) fL MCH 28.6 (25.0-34.0) pg MCHC 29.9 L (32.0-36.0) g/dL RDW Std Deviation 53.8 H (36.4-46.3) fL RDW Coeff of Chet 15.2 H (11.5-14.5) % Plt Count 492 H (130-400) K/uL MPV 8.7 L (9.4-12.4) fL Immature Gran % (Auto) 0.7 % Neut % (Auto) 51.4 % Lymph % (Auto) 39.6 % [place] % (Auto) 4.6 % Eos % (Auto) 3.1 % Baso % (Auto) 0.6 % Neut # (Auto) 5.69 (1.40-6.50) K/uL Lymph # (Auto) 4.38 H (1.20-3.40) K/uL [place] # (Auto) 0.51 (0.11-0.59) K/uL Eos # (Auto) 0.34 (0.00-0.50) K/uL Baso # (Auto) 0.07 (0.00-0.20) K/uL Immature Gran # (Auto) 0.08 (0.01-0.20) K/uL PT 10.7 (9.0-12.0) Seconds INR 1.0 (0.9-1.1) APTT 25 (21-31) Seconds PTT Ratio 0.9 Sodium 141 (136-145) mmol/L Potassium 3.9 (3.5-5.1) mmol/L Chloride 102 (98-107) mmol/L Carbon Dioxide 32 (21-32) mmol/L Anion Gap 7 (3-11) BUN 8 (6-23) mg/dl Creatinine 0.81 (0.6-1.2) mg/dl Est Cr Clr Drug Dosing 44.0 ml/min eGFR 75.65 BUN/Creatinine Ratio 9.9 L (10-20) Glucose 259 H (70-99(Fasting)) mg/dl Calcium 8.7 (8.6-10.3) mg/dl Magnesium 2.0 (1.7-2.4) mg/dl Total Bilirubin 0.3 (0.2-1.0) mg/dl AST 14 (13-39) U/L ALT 8 (7-52) U/L Alkaline Phosphatase 105 H (34-104) U/L Troponin I High Sens 15.2 H (0-14) pg/ml Total Protein 6.9 (6.0-8.3) gm/dl Albumin 3.1 L (3.4-5.0) gm/dl Globulin 3.8 (2.5-4.0) gm/dl Albumin/Globulin Ratio 0.8 L (0.9-2) Adenovirus (PCR) Not Detected (NotDetected) B. pertussis DNA (PCR) Not Detected (NotDetected) B.parapertussis DNA PCR Not Detected (NotDetected) C. pneumoniae DNA (PCR) Not Detected (NotDetected) Coronavirus OC43 (PCR) Not Detected (NotDetected) Coronavirus HKU1 (PCR) Not Detected (NotDetected) Coronavirus 229E (PCR) Not Detected (NotDetected) SARS-CoV-2 (PCR) Not Detected (NotDetected) Coronavirus NL63 (PCR) Not Detected (NotDetected) Human Metapneumovir PCR Not Detected (NotDetected) Influenza Type A (PCR) Not Detected (NotDetected) Influenza Type B (PCR) Not Detected (NotDetected) M. pneumoniae (PCR) Not Detected (NotDetected) Parainfluenza 1 (PCR) Not Detected (NotDetected) Parainfluenza 2 (PCR) Not Detected (NotDetected) Parainfluenza 3 (PCR) Not Detected (NotDetected) Parainfluenza 4 (PCR) Not Detected (NotDetected) RSV (PCR) Not Detected (NotDetected) Entero/Rhino (PCR) Not Detected (NotDetected) Administered Medications Acetaminophen (Acetaminophen 325 Mg Tab) 650 mg PO Q4H PRN PRN Reason: Pain or Fever Stop: 08/11/24 03:15 Last Admin: 07/16/24 01:21 Dose: 650 mg Documented By: Admin: 07/14/24 09:42 Dose: 650 mg Documented By: Admin: 07/12/24 11:38 Dose: 650 mg Documented By: CHIQUIS Aspirin (Aspirin 81 Mg Ectab) 81 mg PO QAM [facility] Stop: 08/13/24 08:59 Last Admin: 07/17/24 08:38 Dose: 81 mg Documented By: Admin: 07/16/24 08:11 Dose: 81 mg Documented By: Admin: 07/15/24 08:56 Dose: 81 mg Documented By: Admin: 07/14/24 09:36 Dose: 81 mg Documented By: MARANDA Atorvastatin Calcium (Atorvastatin 40 Mg Tab) [facility] [place] Stop: 08/11/24 08:59 Last Admin: 07/17/24 08:37 Dose: 40 mg Documented By: Admin: 07/16/24 08:10 Dose: 40 mg Documented By: Admin: 07/15/24 08:57 Dose: 40 mg Documented By: Admin: 07/14/24 09:37 Dose: 40 mg Documented By: Admin: 07/13/24 09:01 Dose: 40 mg Documented By: Admin: 07/12/24 08:05 Dose: 40 mg Documented By: CHIQUIS Cephalexin HCl (Cephalexin 500 Mg Cap) 500 mg PO BID [facility]; Protocol Stop: 07/24/24 20:59 Last Admin: 07/17/24 20:48 Dose: 500 mg Documented By: JENNIFER Citalopram Hydrobromide (Citalopram 40 Mg Tab) [facility] [place] Stop: 08/11/24 08:59 Last Admin: 07/17/24 08:38 Dose: 40 mg Documented By: Admin: 07/16/24 08:07 Dose: 40 mg Documented By: Admin: 07/15/24 08:56 Dose: 40 mg Documented By: Admin: 07/14/24 09:35 Dose: 40 mg Documented By: Admin: 07/13/24 09:05 Dose: 40 mg Documented By: Admin: 07/12/24 08:06 Dose: 40 mg Documented By: CHIQUIS Fluticasone/Vilanterol (Fluticasone/Vilanterol 100/25mcg 14 Puffs/Inhaler) 1 puffs INH DAILY [facility] Stop: 08/11/24 08:59 Last Admin: 07/17/24 08:33 Dose: 1 puffs Documented By: Admin: 07/16/24 08:12 Dose: 1 puffs Documented By: Admin: 07/15/24 08:54 Dose: 1 puffs Documented By: Admin: 07/14/24 09:33 Dose: 1 puffs Documented By: Admin: 07/13/24 09:09 Dose: 1 puffs Documented By: Admin: 07/12/24 08:07 Dose: 1 puffs Documented By: CHIQUIS Furosemide (Furosemide 20 Mg Tab) 20 mg PO QAM [facility] Stop: 08/11/24 08:59 Last Admin: 07/17/24 08:37 Dose: 20 mg Documented By: Admin: 07/16/24 08:11 Dose: 20 mg Documented By: Admin: 07/15/24 08:56 Dose: 20 mg Documented By: Admin: 07/14/24 09:34 Dose: 20 mg Documented By: Admin: 07/13/24 09:04 Dose: 20 mg Documented By: Admin: 07/12/24 08:07 Dose: 20 mg Documented By: CHIQUIS Gabapentin (Gabapentin 300 Mg Cap) 300 mg PO BID [facility] Stop: 08/11/24 08:59 Last Admin: 07/17/24 20:47 Dose: 300 mg Documented By: Admin: 07/17/24 08:36 Dose: 300 mg Documented By: Admin: 07/16/24 20:40 Dose: 300 mg Documented By: Admin: 07/16/24 08:08 Dose: 300 mg Documented By: Admin: 07/15/24 20:22 Dose: 300 mg Documented By: Admin: 07/15/24 08:57 Dose: 300 mg Documented By: Admin: 07/14/24 20:53 Dose: 300 mg Documented By: Admin: 07/14/24 09:35 Dose: 300 mg Documented By: Admin: 07/13/24 21:33 Dose: 300 mg Documented By: Admin: 07/13/24 09:01 Dose: 300 mg Documented By: Admin: 07/12/24 20:12 Dose: 300 mg Documented By: Admin: 07/12/24 08:06 Dose: 300 mg Documented By: CHIQUIS Promethazine HCl (Phenergan) 6.25 mg in 50.25 mls @ 201 mls/hr IV Q6H PRN PRN Reason: Nausea And Vomiting Stop: 08/12/24 14:44 Last Infusion: 07/16/24 15:49 Dose: Infused Documented By: Admin: 07/16/24 12:34 Dose: 201 mls/hr Documented By: Infusion: 07/14/24 17:56 Dose: Infused Documented By: Admin: 07/14/24 16:48 Dose: 201 mls/hr Documented By: Infusion: 07/13/24 16:07 Dose: Infused Documented By: Admin: 07/13/24 15:33 Dose: 201 mls/hr Documented By: MARANDA Heparin Sodium/Dextrose (Heparin 96153 Unit/500 Ml D5w) 25,000 units in 500 mls @ 11 mls/hr IV .Q24H [facility]; Protocol Stop: 08/16/24 20:29 Last Admin: 07/17/24 20:37 Dose: 550 units/hr, 11 mls/hr Documented By: JENNIFER Co-signed By: ROBYN Lactobacillus Acidophilus (Advanced Probiotic 625 Mg Capsule) 1,250 mg PO DAILY [facility] Stop: 08/15/24 17:59 Last Admin: 07/17/24 08:39 Dose: 1,250 mg Documented By: Admin: 07/16/24 19:21 Dose: 1,250 mg Documented By: TYRESE Levalbuterol HCl (Levalbuterol Hcl 0.63 Mg/3 Ml Neb) 0.63 mg NEB Q4H PRN; Protocol PRN Reason: Shortness Of Breath Or Wheezing Stop: 08/11/24 03:15 Last Admin: 07/17/24 08:14 Dose: 0.63 mg Documented By: SJ Levothyroxine Sodium (Levothyroxine Sodium 25 Mcg Tablet) 25 mcg PO DAILYBB [facility] Stop: 08/11/24 06:29 Last Admin: 07/17/24 06:24 Dose: 25 mcg Documented By: Admin: 07/16/24 05:56 Dose: 25 mcg Documented By: Admin: 07/15/24 06:21 Dose: 25 mcg Documented By: Admin: 07/14/24 05:53 Dose: 25 mcg Documented By: Admin: 07/13/24 06:00 Dose: 25 mcg Documented By: Admin: 07/12/24 05:55 Dose: 25 mcg Documented By: CONNIE Losartan Potassium (Losartan Potassium 50 Mg Tab) 100 mg PO QAM [facility] Stop: 08/11/24 08:59 Last Admin: 07/17/24 08:35 Dose: 100 mg Documented By: Admin: 07/16/24 08:09 Dose: 100 mg Documented By: Admin: 07/15/24 08:57 Dose: 100 mg Documented By: Admin: 07/14/24 09:35 Dose: 100 mg Documented By: Admin: 07/13/24 09:01 Dose: 100 mg Documented By: Admin: 07/12/24 08:06 Dose: 100 mg Documented By: CHIQUIS Magnesium Oxide (Magnesium Oxide 400 Mg Tab) 400 mg PO BID [facility] Stop: 08/11/24 08:59 Last Admin: 07/17/24 20:47 Dose: 400 mg Documented By: Admin: 07/17/24 08:36 Dose: 400 mg Documented By: Admin: 07/16/24 20:40 Dose: 400 mg Documented By: Admin: 07/16/24 08:09 Dose: 400 mg Documented By: Admin: 07/15/24 20:22 Dose: 400 mg Documented By: Admin: 07/15/24 08:57 Dose: 400 mg Documented By: Admin: 07/14/24 20:54 Dose: 400 mg Documented By: Admin: 07/14/24 09:35 Dose: 400 mg Documented By: Admin: 07/13/24 21:33 Dose: 400 mg Documented By: Admin: 07/13/24 09:02 Dose: 400 mg Documented By: Admin: 07/12/24 20:12 Dose: 400 mg Documented By: Admin: 07/12/24 08:07 Dose: 400 mg Documented By: CHIQUIS Metoprolol Succinate (Metoprolol Succ 25mg Ext Rel Tab) 37.5 mg PO BID [facility] Stop: 08/16/24 20:59 Last Admin: 07/17/24 20:48 Dose: 37.5 mg Documented By: JENNIFER Metoprolol Tartrate (Metoprolol Tartrate 1 Mg/Ml Vial) 5 mg IV Q6 PRN PRN Reason: Tachycardia Stop: 08/11/24 03:15 Last Admin: 07/17/24 10:22 Dose: 5 mg Documented By: DRE Multivitamins (Multivitamin Tab) 1 tab PO DAILY [facility] Stop: 08/11/24 08:59 Last Admin: 07/17/24 08:38 Dose: 1 tab Documented By: Admin: 07/16/24 08:08 Dose: 1 tab Documented By: Admin: 07/15/24 08:57 Dose: 1 tab Documented By: Admin: 07/14/24 09:37 Dose: 1 tab Documented By: Admin: 07/13/24 09:03 Dose: 1 tab Documented By: Admin: 07/12/24 08:07 Dose: 1 tab Documented By: CHIQUIS Nitroglycerin (Nitroglycerin Sl 0.4 Mg/Tab Tab) 0.4 mg SL Q5M PRN PRN Reason: Chest Pain Stop: 08/11/24 03:15 Last Admin: 07/17/24 10:13 Dose: 0.4 mg Documented By: Admin: 07/17/24 09:58 Dose: 0.4 mg Documented By: DRE Oxybutynin Chloride (Oxybutynin Chloride Xl 5 Mg Tabcr) 5 mg PO QAM [facility] Stop: 08/11/24 08:59 Last Admin: 07/17/24 08:37 Dose: 5 mg Documented By: Admin: 07/16/24 08:09 Dose: 5 mg Documented By: Admin: 07/15/24 08:57 Dose: 5 mg Documented By: Admin: 07/14/24 09:35 Dose: 5 mg Documented By: Admin: 07/13/24 09:02 Dose: 5 mg Documented By: Admin: 07/12/24 08:06 Dose: 5 mg Documented By: CHIQUIS Oxycodone HCl (Oxycodone Hcl Ir 5 Mg Tab (Immediate Release)) 5 mg PO Q4H PRN PRN Reason: pain Stop: 07/26/24 03:15 Last Admin: 07/15/24 20:43 Dose: 5 mg Documented By: Admin: 07/14/24 11:50 Dose: 5 mg Documented By: Admin: 07/14/24 05:53 Dose: 5 mg Documented By: Admin: 07/13/24 21:44 Dose: 5 mg Documented By: Admin: 07/13/24 09:09 Dose: 5 mg Documented By: Admin: 07/13/24 01:56 Dose: 5 mg Documented By: Admin: 07/12/24 20:19 Dose: 5 mg Documented By: CONNIE Pantoprazole Sodium (Pantoprazole 40 Mg Tab) 40 mg PO QAM [facility] Stop: 08/11/24 08:59 Last Admin: 07/17/24 08:36 Dose: 40 mg Documented By: Admin: 07/16/24 08:08 Dose: 40 mg Documented By: Admin: 07/15/24 08:57 Dose: 40 mg Documented By: Admin: 07/14/24 09:34 Dose: 40 mg Documented By: Admin: 07/13/24 09:03 Dose: 40 mg Documented By: Admin: 07/12/24 08:07 Dose: 40 mg Documented By: CHIQUIS Polyethylene Glycol (Polyethylene (Miralax) 17 Gm Pack) 17 gm PO DAILY PRN PRN Reason: Constipation Stop: 08/11/24 03:15 Last Admin: 07/16/24 08:23 Dose: 17 gm Documented By: Admin: 07/14/24 11:50 Dose: 17 gm Documented By: MARANDA Potassium Chloride (Potassium Chloride 10 Meq Tabcr) 10 meq PO BID [facility] Stop: 08/11/24 08:59 Last Admin: 07/17/24 20:47 Dose: 10 meq Documented By: Admin: 07/17/24 08:42 Dose: 10 meq Documented By: Admin: 07/16/24 20:44 Dose: 10 meq Documented By: Admin: 07/16/24 08:22 Dose: 10 meq Documented By: Admin: 07/15/24 20:22 Dose: 10 meq Documented By: Admin: 07/15/24 09:02 Dose: 10 meq Documented By: Admin: 07/14/24 20:55 Dose: 10 meq Documented By: Admin: 07/14/24 09:42 Dose: 10 meq Documented By: Admin: 07/13/24 21:41 Dose: 10 meq Documented By: Admin: 07/13/24 09:09 Dose: 10 meq Documented By: Admin: 07/12/24 20:12 Dose: 10 meq Documented By: Admin: 07/12/24 08:11 Dose: 10 meq Documented By: CHIQUIS Umeclidinium [place] (Umeclidinium [place] 62.5mcg/Blister 7 Puffs/Inhaler) 1 puffs INH DAILY [facility] Stop: 08/11/24 08:59 Last Admin: 07/17/24 08:33 Dose: 1 puffs Documented By: Admin: 07/16/24 08:12 Dose: 1 puffs Documented By: Admin: 07/15/24 08:54 Dose: 1 puffs Documented By: Admin: 07/14/24 09:33 Dose: 1 puffs Documented By: Admin: 07/13/24 09:09 Dose: 1 puffs Documented By: Admin: 07/12/24 08:07 Dose: 1 puffs Documented By: CHIQUIS Vitamin D (Cholecalciferol 25 Mcg (1000 Units) Tab) 50 mcg PO DAILY [facility] Stop: 08/11/24 08:59 Last Admin: 07/17/24 08:39 Dose: 50 mcg Documented By: Admin: 07/16/24 08:10 Dose: 50 mcg Documented By: Admin: 07/15/24 08:56 Dose: 50 mcg Documented By: Admin: 07/14/24 09:35 Dose: 50 mcg Documented By: Admin: 07/13/24 09:05 Dose: 50 mcg Documented By: Admin: 07/12/24 08:06 Dose: 50 mcg Documented By: CHIQUIS Discontinued Medications Amoxicillin/Clavulanate Potassium (Amoxicillin/Clavulanate 500 Mg Tab) 1 tab PO BIDM [facility]; Protocol Stop: 07/17/24 07:59 Last Admin: 07/16/24 18:02 Dose: 1 tab Documented By: Admin: 07/16/24 08:06 Dose: 1 tab Documented By: Admin: 07/15/24 17:31 Dose: 1 tab Documented By: Admin: 07/15/24 08:56 Dose: 1 tab Documented By: Admin: 07/14/24 18:08 Dose: 1 tab Documented By: Admin: 07/14/24 09:36 Dose: 1 tab Documented By: Admin: 07/13/24 16:38 Dose: 1 tab Documented By: Admin: 07/13/24 09:04 Dose: 1 tab Documented By: Admin: 07/12/24 15:37 Dose: 1 tab Documented By: Admin: 07/12/24 08:05 Dose: 1 tab Documented By: CHIQUIS Apixaban (Apixaban 5 Mg Tablet) 5 mg PO BID [facility] Stop: 08/11/24 08:59 Last Admin: 07/17/24 08:35 Dose: 5 mg Documented By: Admin: 07/16/24 20:40 Dose: 5 mg Documented By: Admin: 07/16/24 08:07 Dose: 5 mg Documented By: Admin: 07/15/24 20:22 Dose: 5 mg Documented By: Admin: 07/15/24 08:57 Dose: 5 mg Documented By: Admin: 07/14/24 20:53 Dose: 5 mg Documented By: Admin: 07/14/24 09:36 Dose: 5 mg Documented By: Admin: 07/13/24 21:33 Dose: 5 mg Documented By: Admin: 07/13/24 09:00 Dose: 5 mg Documented By: Admin: 07/12/24 20:12 Dose: 5 mg Documented By: Admin: 07/12/24 08:07 Dose: 5 mg Documented By: CHIQUIS Carvedilol (Carvedilol 6.25 Mg Tab) 6.25 mg PO BID GELACIO Stop: 08/11/24 08:59 Last Admin: 07/12/24 08:07 Dose: 6.25 mg Documented By: CHIQUIS Clopidogrel Bisulfate (Clopidogrel Bisulfate 75 Mg Tab) 75 mg PO QAM GELACIO Stop: 08/11/24 08:59 Last Admin: 07/13/24 09:04 Dose: 75 mg Documented By: Admin: 07/12/24 08:06 Dose: 75 mg Documented By: CHIQUIS Diltiazem HCl (Diltiazem Hcl 5 Mg/Ml 5 Ml Vial) 10 mg IV NOW STA Stop: 07/11/24 22:48 Last Admin: 07/11/24 22:53 Dose: 10 mg Documented By: THANIAW Co-signed By: HILL Diltiazem HCl (Diltiazem Hcl 5 Mg/Ml 5 Ml Vial) 10 mg IV NOW STA Stop: 07/11/24 23:17 Last Admin: 07/12/24 00:06 Dose: 10 mg Documented By: SHAGGY Co-signed By: HILL Magnesium Sulfate/Dextrose (Magnesium Sulfate / D5w) 1 gm in 100 mls @ 100 mls/hr IV NOW STA Stop: 07/11/24 23:49 Last Infusion: 07/12/24 00:12 Dose: Infused Documented By: NRRegina Admin: 07/11/24 22:53 Dose: 100 mls/hr Documented By: OSMIN Methylprednisolone 40 mg/ (Syringe) 0.64 mls @ 1.5 mls/min IV Q8H GELACIO Stop: 08/11/24 05:59 Last Admin: 07/12/24 20:09 Dose: 1.5 mls/min Documented By: Admin: 07/12/24 13:40 Dose: 1.5 mls/min Documented By: Admin: 07/12/24 05:55 Dose: 1.5 mls/min Documented By: CONNIE Magnesium Sulfate/Dextrose (Magnesium Sulfate / D5w) 1 gm in 100 mls @ 50 mls/hr IV Q2H GELACIO Stop: 07/14/24 16:59 Last Infusion: 07/14/24 17:57 Dose: Infused Documented By: Admin: 07/14/24 15:43 Dose: 50 mls/hr Documented By: Infusion: 07/14/24 15:43 Dose: Infused Documented By: Admin: 07/14/24 15:43 Dose: 50 mls/hr Documented By: MARANDA Iron Sucrose 300 mg/ Sodium (Chloride) 265 mls @ 176.667 mls/hr IV TODAY ONE Stop: 07/14/24 14:29 Last Infusion: 07/14/24 15:52 Dose: Infused Documented By: Admin: 07/14/24 14:00 Dose: 176.7 mls/hr Documented By: MARANDA Lactulose (Lactulose Syrup 30 Gm/45 Ml Udp) 30 gm PO NOW STA Stop: 07/14/24 17:02 Last Admin: 07/14/24 18:08 Dose: 30 gm Documented By: MARANDA Levalbuterol HCl (Levalbuterol Hcl 0.63 Mg/3 Ml Neb) 0.63 mg NEB QIDR GELACIO; Protocol Stop: 08/11/24 06:59 Last Admin: 07/12/24 07:15 Dose: 0.63 mg Documented By: [id number] Methylprednisolone (Methylprednisolone 125 Mg/2 Ml Vial) 60 mg IV NOW STA Stop: 07/11/24 22:46 Last Admin: 07/11/24 22:52 Dose: 60 mg Documented By: ASW Metoprolol Succinate (Metoprolol Succ 25mg Ext Rel Tab) 25 mg PO BID GELACIO Stop: 08/11/24 20:59 Last Admin: 07/17/24 08:37 Dose: 25 mg Documented By: Admin: 07/16/24 20:41 Dose: 25 mg Documented By: Admin: 07/16/24 08:11 Dose: 25 mg Documented By: Admin: 07/15/24 20:22 Dose: 25 mg Documented By: Admin: 07/15/24 08:57 Dose: 25 mg Documented By: Admin: 07/14/24 20:54 Dose: 25 mg Documented By: Admin: 07/14/24 09:34 Dose: 25 mg Documented By: Admin: 07/13/24 21:33 Dose: 25 mg Documented By: Admin: 07/13/24 09:06 Dose: 25 mg Documented By: Admin: 07/12/24 20:11 Dose: 25 mg Documented By: CONNIE Ondansetron HCl (Ondansetron Inj 2 Mg/Ml 2 Ml Vial) 4 mg IV NOW STA Stop: 07/11/24 22:47 Last Admin: 07/11/24 22:53 Dose: 4 mg Documented By: THANIAW Prednisone (Prednisone 20 Mg Tab) 40 mg PO DAILY GELACIO Stop: 08/12/24 08:59 Last Admin: 07/16/24 08:08 Dose: 40 mg Documented By: Admin: 07/15/24 08:55 Dose: 40 mg Documented By: Admin: 07/14/24 09:34 Dose: 40 mg Documented By: Admin: 07/13/24 09:06 Dose: 40 mg Documented By: MARANDA Discharge Plan Visit Data Chief Complaint: Respiratory Distress Stated Complaint: RESPIRATORY DISTRESS ED Provider: Meghan Jim Discharge Problem: Atrial fibrillation with RVR, COPD (chronic obstructive pulmonary disease) Patient Disposition: Admitted As Inpatient Discharge Instructions Interventions: ED Discharge Assessment Last Done: 07/12/24 02:35 Discharge Problem: COPD (chronic obstructive pulmonary disease) Qualifiers: COPD type: COPD with acute exacerbation Qualified Code(s): J44.1 - Chronic obstructive pulmonary disease with (acute) exacerbation
[2024-07-11 23:57] LABS: Basophils # (auto) 0.07 K/uL (0.00-0.20); Basophils % (auto) 0.6 %; Eosinophils # (auto) 0.34 K/uL (0.00-0.50); Eosinophils % (auto) 3.1 %; Hematocrit (blood only) 34.4 % (37.0-47.0); Hemoglobin 10.3 g/dl (12.0-16.0); Immature Granulocytes # (auto) 0.08 K/uL (0.01-0.20); Immature Granulocytes % (auto) 0.7 %; Lymphocytes # (auto) 4.38 K/uL (1.20-3.40); Lymphocytes % (auto) 39.6 %; Mean Corpuscular Hemoglobin 28.6 pg (25.0-34.0); Mean Corpuscular Hgb Conc 29.9 g/dL (32.0-36.0); Mean Corpuscular Volume 95.6 fL (80.0-100.0); Mean Platelet Volume 8.7 fL (9.4-12.4); Monocytes # (auto) 0.51 K/uL (0.11-0.59); Monocytes % (auto) 4.6 %; Neutrophils # (auto) 5.69 K/uL (1.40-6.50); Neutrophils % (auto) 51.4 %; Platelet Count 492 K/uL (130-400); RDW Coefficient of Variation 15.2 % (11.5-14.5); RDW Standard Deviation 53.8 fL (36.4-46.3); White Blood Count 11.07 K/ul (4.8-10.8)
[2024-07-12] MEDS: dilTIAZem HCl 5 MG/ML 5 ML VIAL IV STA (00:06)
--- NOTE | 2024-07-12 00:20 | XRay Report ---
Exam(s): XR CXR 1 VIEW EXAM: XR Chest, 1 View CLINICAL HISTORY: Reason for exam: Dyspnea. TECHNIQUE: Frontal view of the chest. COMPARISON: Chest radiograph July 08, 2024. FINDINGS: Lungs: No acute infiltration, atelectasis or mass. Pleural space: Unremarkable. No pneumothorax or pleural fluid. Heart: Unremarkable. No cardiomegaly. Mediastinum: Unremarkable. Normal mediastinal contour. Bones/joints: No acute findings. IMPRESSION: No acute findings in the chest. Electronically signed by: Eric Mcghee MD 07/12/24 00:19 AM
--- NOTE | 2024-07-12 02:02 | History & Physical Report ---
Date of Service July 12, 2024 Assessment & Plan (1) SOB (shortness of breath): Plan: 74-year-old female with past medical history significant for chronic respiratory failure with hypoxia on 2 to 3 L oxygen at home, dyslipidemia, hypothyroidism, chronic nonspecific lung disease, COPD, hypertension, CAD status post stent, atrial fibrillation, tobacco use disorder, general anxiety disorder, generalized osteoarthritis, migraines, ambulatory dysfunction who lives at home with her daughter comes because of shortness of breath and found to also be in rapid A- fib. Patient was recently in the hospital for UTI, abnormal EKG, abdominal discomfort and shortness of breath but signed out AMA. Today she was feeling very short of breath. She gave herself breathing treatment and en route she received 2 DuoNeb's. In the ER she was in rapid A-fib with rate of 164 and received couple doses of IV Cardizem. Currently heart rate is under control. Currently resting comfortably. Complains of mild headache. There is a bruise on the right eyelid and brow region and she says she rubbed the eye and denies any falls. No blurred vision. No earache. No runny nose. No sore throat. Has cough. Denies chest pain. Denies nausea. Has abdominal discomfort and poor appetite. Complains of loss of weight. Having diarrhea for couple of weeks. Stools are dark in color. Seems having some burning micturition. Hemodynamics are okay currently. Shortness of breath COPD exacerbation Chronic respiratory failure with hypoxia on 2-3 l oxygen at home Chest x-ray no acute findings Respiratory BioFire negative Will do Xopenex nebs [id number] and as needed IV Solu-Medrol 40 mg 3 times daily Continue home inhalers Close monitor Rapid A-fib History of A-fib Received couple of doses of IV Cardizem in the ER Continue home Coreg. Question of recently reduced Coreg dose to 3.125 mg IV Lopressor as needed On Eliquis Few days ago had echo Telemetry cardiology consult for further recommendations Mild elevation of troponin Mostly demand ischemia We will follow serial enzymes UTI Cultures growing Klebsiella and Staphylococcus epidermidis last admit On Augmentin which will be continued Abdominal aortic aneurysm Will follow ultrasound Diarrhea Will follow stool studies Left elbow wound Since surgery of left distal humerus fracture in March 2024 Following with orthopedics Recent cultures normal hans Currently on Augmentin Wound care consult followup with ortho as scheduled Can consider consult while in the hospital History of CAD s/p stents On statin, Coreg, Plavix Hypertension On Coreg, losartan and Lasix with potassium supplement Will monitor Hypothyroidism On Synthyroid GERD On Protonix Hyperlipidemia On statin Tobacco use Needs counseling Generalized anxiety disorder On citalopram and trazodone DVT prophylaxis On Eliquis Disposition Telemetry Full code. History of Present Illness Chief Complaint: Shortness of breath and rapid A-fib Primary Care Provider: Ronald Cortes MD 74-year-old female with past medical history significant for chronic respiratory failure with hypoxia on 2 to 3 L oxygen at home, dyslipidemia, hypothyroidism, chronic nonspecific lung disease, COPD, hypertension, CAD status post stent, atrial fibrillation, tobacco use disorder, general anxiety disorder, generalized osteoarthritis, migraines, ambulatory dysfunction who lives at home with her daughter comes because of shortness of breath and found to also be in rapid A- fib. Patient was recently in the hospital for UTI, abnormal EKG, abdominal discomfort and shortness of breath but signed out AMA. Today she was feeling very short of breath. She gave herself breathing treatment and en route she received 2 DuoNeb's. In the ER she was in rapid A-fib with rate of 164 and received couple doses of IV Cardizem. Currently heart rate is under control. Currently resting comfortably. Complains of mild headache. There is a bruise on the right eyelid and brow region and she says she rubbed the eye and denies any falls. No blurred vision. No earache. No runny nose. No sore throat. Has cough. Denies chest pain. Denies nausea. Has abdominal discomfort and poor appetite. Complains of loss of weight. Having diarrhea for couple of weeks. Stools are dark in color. Seems having some burning micturition. Hemodynamics are okay currently. Past medical history. As mentioned above Past surgical history. Bone marrow aspiration. Colonoscopy. Exploration of abdomen. Ligation oviducts. Appendectomy. Cholecystectomy. Left repair of ruptured rotator cuff. Sigmoidoscopy with biopsy. Social history. . Smoked 0.6 pack a day for 70 years. No alcohol use. No drug use. Family history. Mother had diabetes. A-fib. Hypertension. Stroke. Aunt had breast cancer. Paternal grandfather had lung cancer. Father had diabetes. Brain cancer. Allergies Allergy/AdvReac Type Severity Reaction Status Date / Time bee venom protein (honey bee) Allergy Severe SWELLING Verified 01/30/24 16:12 SEVERE doxycycline Allergy Intermediate Vomiting Verified 01/30/24 16:12 Home Medications Medication Instructions Recorded Confirmed Type multivitamin 1 tab PO DAILY #0 tabs 02/07/14 07/11/24 History omega 4-luc-rfx-fish oil 1,000 mg 1 cap PO DAILY #0 caps 04/22/17 07/11/24 History (120 mg-180 mg) capsule (Fish Oil) magnesium oxide 400 mg PO BID #0 tabs 06/01/17 07/11/24 History apixaban 5 mg tablet (Eliquis) 5 mg PO BID 12/06/23 07/11/24 History atorvastatin 40 mg tablet 40 mg PO QAM 12/06/23 07/11/24 History citalopram 40 mg tablet 40 mg PO QAM 12/06/23 07/11/24 History clopidogrel 75 mg tablet 75 mg PO QAM 12/06/23 07/11/24 History fluticasone propionate 115 2 puff inhalation AMHS 12/06/23 07/11/24 History mcg-salmeterol 21 mcg/actuation HFA inhaler gabapentin 300 mg capsule 300 mg PO BID 12/06/23 07/11/24 History levothyroxine 25 mcg tablet 25 mcg PO DAILYBB 12/06/23 07/11/24 History oxybutynin chloride 5 mg 5 mg PO QAM 12/06/23 07/11/24 History tablet,extended release 24 hr potassium chloride 10 mEq 10 meq PO AMHS 12/06/23 07/11/24 History tablet,extended release(part/cryst) (Klor-Con M) nitroglycerin 0.4 mg sublingual 0.4 mg sublingual Q5M PRN chest 12/09/23 07/11/24 Rx tablet (Nitrostat) pain #30 tabs umeclidinium 62.5 mcg/actuation 1 inh inhalation DAILY #30 ea 12/14/23 07/11/24 Rx blister powder for inhalation (Incruse Ellipta) ipratropium 0.5 mg-albuterol 3 mg 3 ml NEB QIDR PRN shortness of 12/28/23 07/11/24 Rx (2.5 mg base)/3 mL nebulization breath #90 mL soln albuterol sulfate 90 mcg/actuation 2 puff inhalation Q4 PRN WHEEZING 01/30/24 07/11/24 History aerosol inhaler OR COUGH pantoprazole 40 mg tablet,delayed 40 mg PO QAM 01/30/24 07/11/24 History release (Protonix) tiotropium bromide 18 mcg capsule 1 cap inhalation QAM 03/02/24 07/11/24 History with inhalation device alendronate 70 mg tablet 70 mg PO WK 03/15/24 07/11/24 History cholecalciferol (vitamin D3) 50 50 mcg PO DAILY 03/24/24 07/11/24 History mcg (2,000 unit) tablet (Vitamin D3) furosemide 40 mg tablet 20 mg PO QAM 03/24/24 07/11/24 History carvedilol 6.25 mg tablet 6.25 mg PO BID #60 tabs 04/01/24 07/11/24 Rx losartan 50 mg tablet 100 mg (2 x 50 mg) PO QAM #30 tabs 04/01/24 07/11/24 Rx oxycodone 5 mg tablet 5 mg PO Q4H PRN pain #15 tabs 04/01/24 07/11/24 Rx amoxicillin 500 mg-potassium 1 tab PO BID 7 days #14 tabs 07/09/24 07/11/24 Rx clavulanate 125 mg tablet (Augmentin) phenazopyridine 200 mg tablet 200 mg PO TID PRN pain #30 tabs 07/09/24 07/11/24 Rx (Pyridium) Past Med/Surg History Problem List (Updated 07/12/24 @ 02:19 by Adan Shelton MD) SOB (shortness of breath) Hypomagnesemia (Acute) Cellulitis of arm, left (Acute) Weakness (Acute) Elevated troponin (Acute) Abnormal ECG (Acute) Acute UTI (Acute) S/P ORIF (open reduction internal fixation) fracture Acute blood loss anemia Chronic anemia Hypomagnesemia Left humeral fracture Contusion of left knee Asymptomatic hypertensive urgency Acute pain of left knee (Acute) Anticoagulant long-term use (Acute) Contusion of face (Acute) Fracture of distal end of left humerus (Acute) Fall (Acute) Acute on chronic anemia E. coli UTI Acute dehydration (Acute) COPD (chronic obstructive pulmonary disease) (Acute) GUTIERREZ (acute kidney injury) (Acute) COPD (chronic obstructive pulmonary disease) (Acute) Acute and chronic postprocedural respiratory failure (Acute) COPD with exacerbation Acute on chronic respiratory failure with hypoxia and hypercapnia (Acute) COPD (chronic obstructive pulmonary disease) (Acute) Dyslipidemia, goal LDL below 70 PAF (paroxysmal atrial fibrillation) Uncontrolled hypertension ASCVD (arteriosclerotic cardiovascular disease) Chest pain at rest Thickened endometrium Elevated brain natriuretic peptide (BNP) level (Acute) Nausea & vomiting (Acute) Chest pain (Acute) Asthma exacerbation (Acute) Gastroenteritis (Acute) Fall in home (Acute) CHI (closed head injury) (Acute) Scalp laceration (Acute) Facial laceration (Acute) Heart disease HTN (hypertension) Kidney disease Bronchitis Fall in home (Acute) Hyponatremia (Acute) Hypokalemia (Acute) Abdominal pain Diarrhea Vomiting Medical History Acute metabolic encephalopathy Myocardial infarction due to demand ischemia Suspected urinary tract infection Severe sepsis with acute organ dysfunction Sepsis Epigastric abdominal tenderness Intravascular volume depletion Non-ST elevation [place] (NSTEMI) Acute dyspnea Generalized weakness Elevated troponin level Absent pedal pulses Macular degeneration Asthma Tobacco use disorder Coronary atherosclerosis of [place] coronary vessel Benign hypertension Atrial fibrillation Diabetes Surgical History H/O heart surgery History of cholecystectomy Hx of tubal ligation Social History Smoking Status: Current every day smoker Tobacco Type: Cigarettes Cigarettes Per Day: 5; Second Hand Exposure: No; Do You Dip or Chew Tobacco: No; Hx Alcohol Use: No Hx Substance Use: No Preferred Language: German Communication Ability: Effective Fitter/Welder Required: No Beliefs That Will Affect Care: None Current Living Situation: Family Current Living Situation Comment: with daughter Feels Safe at Home: Yes Assistive Devices: Cane, CPAP, Oxygen - Continuous, Walker and Wheelchair Review of Systems Review of Systems: All systems reviewed & are unremarkable except as noted in HPI & below Physical Exam Physical Exam: General- Not in distress Head- atraumatic Eyes- PERRL. ENT- oropharynx clear Neck- supple, no JVD. Lungs- diminished b/l breath sounds, no wheezing or crackles Heart- irregular rhythm; no murmur, no gallop. Abdomen- normal bowel sounds, soft, mild diffuse abdominal discomfort, no distension Extremities- no pretibial edema, no erythema seen Neuro- alert, oriented PERRL, no facial palsy; no dysarthria; moves extremities Results & Data Results & Data Vital Signs (Past 12 Hours) Vital Signs Pulse Pulse Resp BP BP Pulse Ox O2 Del Method 07/12/24 01:38 95 H 07/12/24 01:00 94 H 18 109/69 96 Nasal Cannula 07/12/24 00:46 94 H 30 H 112/73 96 07/12/24 00:30 104 H 25 H 96/61 L 92 07/12/24 00:00 128 H 21 108/91 92 Nasal Cannula 07/11/24 23:45 84 07/11/24 23:36 81 17 129/87 96 Nasal Cannula 07/11/24 23:32 80 20 128/87 100 BiPAP 07/11/24 23:22 98 H 17 96 07/11/24 23:10 129 H 20 127/96 100 BiPAP 07/11/24 23:00 130 H 16 127/96 91 BiPAP 07/11/24 22:57 129 H 24 100 BiPAP 07/11/24 22:45 143 H 21 142/111 H 07/11/24 22:45 158 H 07/11/24 22:44 174 H 38 H 142/111 H O2 Flow Rate FiO2 07/12/24 01:38 07/12/24 01:00 2 07/12/24 00:46 07/12/24 00:30 07/12/24 00:00 2 07/11/24 23:45 07/11/24 23:36 2 07/11/24 23:32 40 07/11/24 23:22 40 07/11/24 23:10 40 07/11/24 23:00 07/11/24 22:57 70 07/11/24 22:45 07/11/24 22:45 07/11/24 22:44 Diagnostic Findings Laboratory Results WBC 11.07 K/ul (4.8-10.8) H 07/11/24 22:50 RBC 3.60 M/uL (4.20-5.40) L 07/11/24 22:50 Hgb 10.3 g/dl (12.0-16.0) L 07/11/24 22:50 Hct 34.4 % (37.0-47.0) L 07/11/24 22:50 MCV 95.6 fL (80.0-100.0) D 07/11/24 22:50 MCH 28.6 pg (25.0-34.0) 07/11/24 22:50 MCHC 29.9 g/dL (32.0-36.0) L 07/11/24 22:50 RDW Std Deviation 53.8 fL (36.4-46.3) H 07/11/24 22:50 RDW Coeff of Chet 15.2 % (11.5-14.5) H 07/11/24:50 Plt Count 492 K/uL (130-400) H 07/11/24 22:50 MPV 8.7 fL (9.4-12.4) L 07/11/24 22:50 Immature Gran % (Auto) 0.7 % 07/11/24 22:50 Neut % (Auto) 51.4 % 07/11/24 22:50 Lymph % (Auto) 39.6 % 07/11/24 22:50 [place] % (Auto) 4.6 % 07/11/24 22:50 Eos % (Auto) 3.1 % 07/11/24 22:50 Baso % (Auto) 0.6 % 07/11/24:50 Neut # (Auto) 5.69 K/uL (1.40-6.50) 07/11/24 22:50 Lymph # (Auto) 4.38 K/uL (1.20-3.40) H 07/11/24 22:50 [place] # (Auto) 0.51 K/uL (0.11-0.59) 07/11/24 22:50 Eos # (Auto) 0.34 K/uL (0.00-0.50) 07/11/24 22:50 Baso # (Auto) 0.07 K/uL (0.00-0.20) 07/11/24:50 Immature Gran # (Auto) 0.08 K/uL (0.01-0.20) 07/11/24 22:50 PT 10.7 Seconds (9.0-12.0) 07/11/24 22:50 INR 1.0 (0.9-1.1) 07/11/24 22:50 APTT 25 Seconds (21-31) 07/11/24 22:50 PTT Ratio 0.9 07/11/24 22:50 Sodium 141 mmol/L (136-145) 07/11/24 22:50 Potassium 3.9 mmol/L (3.5-5.1) 07/11/24 22:50 Chloride 102 mmol/L (98-107) 07/11/24 22:50 Carbon Dioxide 32 mmol/L (21-32) 07/11/24 22:50 Anion Gap 7 (3-11) 07/11/24 22:50 BUN 8 mg/dl (6-23) 07/11/24 22:50 Creatinine 0.81 mg/dl (0.6-1.2) 07/11/24 22:50 Est Cr Clr Drug Dosing 44.0 ml/min 07/11/24 22:50 eGFR 75.65 07/11/24 22:50 BUN/Creatinine Ratio 9.9 (10-20) L 07/11/24 22:50 Glucose 259 mg/dl (70-99(Fasting)) H 07/11/24 22:50 Calcium 8.7 mg/dl (8.6-10.3) 07/11/24 22:50 Magnesium 2.0 mg/dl (1.7-2.4) 07/11/24 22:50 Total Bilirubin 0.3 mg/dl (0.2-1.0) 07/11/24 22:50 AST 14 U/L (13-39) 07/11/24 22:50 ALT 8 U/L (7-52) 07/11/24 22:50 Alkaline Phosphatase 105 U/L (34-104) H 07/11/24 22:50 Troponin I High Sens 15.2 pg/ml (0-14) H 07/11/24 22:50 Total Protein 6.9 gm/dl (6.0-8.3) 07/11/24 22:50 Albumin 3.1 gm/dl (3.4-5.0) L 07/11/24 22:50 Globulin 3.8 gm/dl (2.5-4.0) 07/11/24 22:50 Albumin/Globulin Ratio 0.8 (0.9-2) L 07/11/24 22:50 Adenovirus (PCR) Not Detected (NotDetected) 07/11/24 22:55 B. pertussis DNA (PCR) Not Detected (NotDetected) 07/11/24 22:55 B.parapertussis DNA PCR Not Detected (NotDetected) 07/11/24 22:55 C. pneumoniae DNA (PCR) Not Detected (NotDetected) 07/11/24 22:55 Coronavirus OC43 (PCR) Not Detected (NotDetected) 07/11/24 22:55 Coronavirus HKU1 (PCR) Not Detected (NotDetected) 07/11/24 22:55 Coronavirus 229E (PCR) Not Detected (NotDetected) 07/11/24 22:55 SARS-CoV-2 (PCR) Not Detected (NotDetected) 07/11/24 22:55 Coronavirus NL63 (PCR) Not Detected (NotDetected) 07/11/24 22:55 Human Metapneumovir PCR Not Detected (NotDetected) 07/11/24 22:55 Influenza Type A (PCR) Not Detected (NotDetected) 07/11/24 22:55 Influenza Type B (PCR) Not Detected (NotDetected) 07/11/24 22:55 M. pneumoniae (PCR) Not Detected (NotDetected) 07/11/24 22:55 Parainfluenza 1 (PCR) Not Detected (NotDetected) 07/11/24 22:55 Parainfluenza 2 (PCR) Not Detected (NotDetected) 07/11/24 22:55 Parainfluenza 3 (PCR) Not Detected (NotDetected) 07/11/24 22:55 Parainfluenza 4 (PCR) Not Detected (NotDetected) 07/11/24 22:55 RSV (PCR) Not Detected (NotDetected) 07/11/24 22:55 Entero/Rhino (PCR) Not Detected (NotDetected) 07/11/24 22:55 Impressions Chest X-Ray 07/11/24 22:45 Exam(s): XR CXR 1 VIEW EXAM: XR Chest, 1 View CLINICAL HISTORY: Reason for exam: Dyspnea. TECHNIQUE: Frontal view of the chest. COMPARISON: Chest radiograph July 08, 2024. FINDINGS: Lungs: No acute infiltration, atelectasis or mass. Pleural space: Unremarkable. No pneumothorax or pleural fluid. Heart: Unremarkable. No cardiomegaly. Mediastinum: Unremarkable. Normal mediastinal contour. Bones/joints: No acute findings. IMPRESSION: No acute findings in the chest. Electronically signed by: Eric Mcghee MD 07/12/24 00:19 AM ECG Additional Comments: ECG. Atrial fibrillation with rapid ventricular response at the rate of 151. Marked ST abnormality. QTc 427. Code Status & VTE Plan VTE Prophylaxis Plan VTE Prophylaxis will be ordered: Yes
[2024-07-12] MEDS ORDERED: ALBUTEROL HFA 8 GM INHALER INH PRN (03:16)
--- NOTE | 2024-07-12 04:27 | CT Scan Report ---
EXAM: CT head/brain wo con CLINICAL HISTORY: head ache, bruise on right eye TECHNIQUE: Multiple axial images are obtained from the skull base to the vertex without contrast. CT scan was performed according to ALARA (as low as reasonably achievable). COMPARISON: 15 March 2024. FINDINGS: There is cerebral atrophy. The jack-white matter differentiation is preserved. There are scattered periventricular hypodensities as can be seen with chronic microvascular ischemic changes. No evidence of space occupying lesion, hemorrhage, edema, mass effect, midline shift, extra axial collection, or hydrocephalus is noted. Basal cisterns are symmetric and normal in size and configuration. Visualized paranasal sinuses and mastoid air cells are well aerated. Orbital contents are within normal limits. Bony structures are intact. Complete resolution of the previously seen left anterior frontal subcutaneous hematoma is noted. Rest of the findings are unchanged compared to the previous CT scan. IMPRESSION: 1. No evidence of acute intracranial abnormality is demonstrated. 2. Chronic microvascular ischemic changes. 3. Cerebral atrophy. 4. Complete resolution of the previously seen left anterior frontal subcutaneous hematoma is noted. No significant interval new findings detected. Electronically signed by Mervin Stewart 07-12-2024 04:26 AM
--- OUTSIDE RECORDS SUMMARY | 2024-07-12 05:26 | External Medical Summary | Summary of Care ---
Author Name Unknown Organization [facility] Address [address] [place] [address] Phone [phone] Care Team Providers Care Switchboard Manager Name Role Phone Ronald Cortes MD Primary Care Provider [phone] Reason for Visit * Reason Onset Date Comments Hospital Follow-Up 07/11/2024 [facility] ([facility]) Encounter Details Date Type Department Care Team (Late st Contact Info) Description 07/11/2024 Telephone [facility] [address] [place] [address] Ping Payan, ABILIO Hospital Follow-Up ([facility] ([facility])) Allergies Active Allergy Reactions Criticality Noted Date Comments Bee Venom Anaphylaxis High 02/27/2006 Doxycycline Low 08/04/2023 Intolerant, GI upset documented as of this encounter (statuses as of 07/11/2024) Medications CALCIUM + D 600-200 MG-UNIT PO TABS 1 BID 0 03/13/20 06 Active MULTIVITAMINS PO TABS daily 0 03/13/20 06 Active ACETAMINOPHEN 325 MG PO TABSIndications:IN TERFACED RESULT,Pneumothora x 2 Tab Oral Every 6 hours as needed for fever, pain, headache 1 Tab 0 07/28/19 14 Active [place]-3 Fatty Acids (FISH OIL) 1000 MG Capsule [...] 54 g 3 02/08/20 24 Active Tiotropium [place] Monohydrate 18 MCG Inhalation Capsule (Spiriva HandiHaler) [...] as of this encounter (statuses as of 07/11/2024) Active Problems Problem Noted Date Diagnosed Date History of atrial fibrillation 02/08/2024 Gait difficulty 02/08/2024 Chronic respiratory failure with hypoxia 024 COPD, group B, by GOLD 2017 classification 09/20 Overview: Per COPD GOLD Classification Acquired hypothyroidism 07/19/2023 History of coronary angioplasty with insertion o f stent 07/01/2023 Coronary artery disease invo lving standing rock coronary artery of standing rock heart without angina pectoris 07/01/2023 Hematuria of undiagnosed cause 07/12/2019 Tobacco use disorder 12/21/2017 Chronic nonspecific lung disease 06/16/2017 HTN, goal below 150/90 11/16/2015 Osteoporosis 12/28/2014 Dyslipidemia, goal LDL below 100 06/10/2010 Generalized osteoarthritis of multiple sites 02/2011 GENERALIZED ANXIETY DIS 12/05/2004 COMMON MIGRAINE WITHOUT MENTION OF INTRACTABLE M IGRAINE documented as of this encounter (statuses as of 07/11/2024) Resolved Problems Problem Noted Date Diagnosed Date [...] as of this encounter (statuses as of 07/11/2024) Immunizations Name Administration Dates Next Due COVID-19, [...] Date Smoking Tobacco: Every Day Cigarettes 0.6 70.9 Started: 09/02/1973 Smokeless Tobacco: Never Comments:04/14 ppd. [...] file Not on file Not on file Nursing Home Admissions Director Not on file Not on file Not [...] Assessment Author Yes 08/08/2013 9:56 PM EDT Gulliver, Barry A, RN * Do you have difficulty dressing [...] Telephone Encounter - Ping Payan RN - 07/11/2024 2:01 PM EDT Transitions of Care Note Reason for Referral:Recent Admission Phone visit for follow up: [facility] #1 Admitted to: [facility], Date: 07/09/2024 Discharged to: Home, Date: 07/09/2024 Diagnosis driving hospitalization: Acute Cystitis New medications: Augmentin, Pyridium Held medication: Oxybutynin Discontinued medication: Trazodone Attempted Phone Call First Attempt Call Outcome Left Voicemail/Message Message left on voicemail for patient. When they call back please transfer them to me at [phone]. If you are unable to reach me or my voicemail please route this message back to me. Thank you. documented in this encounter Plan of Treatment Upcoming Encounters Date Type Department Care Team (Late st Contact Info) Description 07/13/2024 3:30 PM EDT Imaging Radiology [facility] [address] [place] [phone] Scheduled Procedures Name Priority Associated Diagnoses Date/Ti [...] D LEVEL ONCE IN A LIFETIME-USE SMARTSET# [id number] Completed 03/22/2015 Pneumococcal Vaccine: 50+ Years Completed [...] this encounter Medical Devices Implanted Type Area Prescription Clerk Device Identifier Shelf Expiration Date Model / Serial / Lot Chip Cancellous [facility] [id number] - [id number] Implanted:Qty: 1 on 08/08/2013 [place] [facility] [place] - Human Left: Foot [employer]CULOSKELETAL TRANSPLANT FND 07/24/2015 [id number] / [id number] / Screw Nonlock 3.5 X 24 - [id number] Implanted:Qty: 1 on 08/08/2013 [place] [facility] [place]: Foot [employer] VICE PRESIDENT [employer]IDENT[employer] SALES-011-3 5-24 / / Screw Locking 3.5 X 16 - [id number] Implanted:Qty: 2 on 08/08/2013 [place] [facility] [place]: Foot [employer] VICE PRESIDENT [employer]IDENT[employer]-021-3 5-16 / / Plate 6 Hole Beta Mxl-0026 - [id number] Implanted:Qty: 1 on 08/08/2013 at [place] [facility] [place] Left: Foot [employer] MXL-0026 / / Screw Locking 3.5 X 20 - [id number] Implanted:Qty: 1 on 08/08/2013 at [place] [facility] [place] Left: Foot [employer] VICE PRESIDENT RESIDENTIAL [employer] SAL[employer]-021-3 5-20 / / Screw Nonlock 3.5 X 16 - [id number] Implanted:Qty: 1 on 08/08/2013 at [place] [facility] [place]: Foot [employer] VICE PRESIDENT RESIDENT[employer]-011-3 5-16 / / Screw Nonlock 3.5 X 18 - [id number] Implanted:Qty: 1 on 08/08/2013 at [place] [facility] [place]: Foot [employer] VICE PRESIDENT RESIDENTIAL [employer] SALES-011-3 5-18 / / Screw Nonlock 3.5 X 14 - [id number] Implanted:Qty: 1 on 08/08/2013 at [place] [facility] [place] Left: Foot [employer] VICE PRESIDENT RESIDENTIAL [employer] SALES-011-3 5-14 / / 4.0 X 3.0 Short Max Torque Implanted:Qty: 1 on 08/08/2013 at [place] [facility] [place]: Foot [employer] MSD-010-4 0-030S / / 4.0 X 32.5 Short Max Torque Implanted:Qty: 1 on 08/08/2013 at [place] [facility] [place] Left: Foot MSD-010-4 0-325S / / 4.0 X 28 Short Max Torque Implanted:Qty: 1 on 08/08/2013 at [place] [facility] [place] Left: Foot [employer] MSD-010-4 0-028S / / 4.0 X 22 Short Max Torque Implanted:Qty: 1 on 08/08/2013 at [place] [facility] [place] Left: Foot [employer] MSD-010-4 0-022S / / [place] Gold 4.0 - [id number] Implanted:Qty: 1 on 08/08/2013 at [place] [facility] [place] Left: Foot [employer] CSS-500-4 0A / / Plate Lps Alpha 2 Slot - [id number] Implanted:Qty: 1 on 08/08/2013 at [place] [facility] [place] Left: Foot [employer] MXL-002-2 A / / Screw Variable 3.5 X 12mm - [id number] Implanted:Qty: 1 on 08/08/2013 at [place] [facility] [place] Left: Foot [employer] RAKESH-031-3 5-12 / / Screw Variable 3.5 X 18mm - [id number] Implanted:Qty: 1 on 08/08/2013 at [place] [facility] [place] Left: Foot [employer] RAKESH-031-3 5-18 [...] Power of Attor elizabeth? No Care Teams Switchboard Manager Relationship Specialty Start Date End Date Ronald Cortes MD PCP - General 06/10/02 documented as of this encounter
[2024-07-12] MEDS: LEVOTHYROXINE SODIUM 25 MCG TABLET PO SCH (05:55)
[2024-07-12] MEDS: methylPREDNISolone 40 MG in SYRINGE 0 ML IV SCH (05:55)
[2024-07-12] MEDS: LEVALBUTEROL HCL 0.63 MG/3 ML NEB NEB SCH (07:15)
[2024-07-12] MEDS: AMOXICILLIN/CLAVULANATE 500 MG TAB PO SCH (08:05)
[2024-07-12] MEDS: ATORVASTATIN 40 MG TAB PO SCH (08:05)
--- NOTE | 2024-07-12 08:05 | Electrocardiogram Report ---
Test Reason : Blood Pressure : */* mmHG Vent. Rate : 151 BPM Atrial Rate : * BPM P-R Int : * ms QRS Dur : 84 ms QT Int : 270 ms P-R-T Axes : * 75 243 degrees QTcB Int : 427 ms Atrial fibrillation with rapid ventricular response Marked ST abnormality, possible inferior subendocardial injury Abnormal ECG When compared with ECG of 08-Jul-2024 22:40, Atrial fibrillation has replaced Sinus rhythm Vent. rate has increased by 73 bpm Confirmed by Tahir Perry ([id number]) on 07/12/2024 8:05:13 AM Referred By: REFERRED SELF Confirmed By: Tahir Perry
[2024-07-12] MEDS: CLOPIDOGREL BISULFATE 75 MG TAB PO SCH (08:06)
[2024-07-12] MEDS: CHOLECALCIFEROL 25 MCG (1000 UNITS) TAB PO SCH (08:06)
[2024-07-12] MEDS: OXYBUTYNIN CHLORIDE XL 5 MG TABCR PO SCH (08:06)
[2024-07-12] MEDS: LOSARTAN POTASSIUM 50 MG TAB PO SCH (08:06)
[2024-07-12] MEDS: CITALOPRAM 40 MG TAB PO SCH (08:06)
[2024-07-12] MEDS: GABAPENTIN 300 MG CAP PO SCH (08:06)
[2024-07-12] MEDS: UMECLIDINIUM BROMIDE 62.5MCG/BLISTER 7 PUFFS/INHALER INH SCH (08:07)
[2024-07-12] MEDS: carvediloL 6.25 MG TAB PO SCH (08:07)
[2024-07-12] MEDS: FLUTICASONE/VILANTEROL 100/25MCG 14 PUFFS/INHALER INH SCH (08:07)
[2024-07-12] MEDS: MAGNESIUM OXIDE 400 MG TAB PO SCH (08:07)
[2024-07-12] MEDS: MULTIVITAMIN TAB PO SCH (08:07)
[2024-07-12] MEDS: APIXABAN 5 MG TABLET PO SCH (08:07)
[2024-07-12] MEDS: PANTOprazole 40 MG TAB PO SCH (08:07)
[2024-07-12] MEDS: FUROSEMIDE 20 MG TAB PO SCH (08:07)
[2024-07-12] MEDS: POTASSIUM CHLORIDE 10 MEQ TABCR PO SCH (08:11)
[2024-07-12] MEDS ORDERED: TIOTROPIUM BROMIDE 5 PUFF/90 MCG INH INH SCH (09:00)
[2024-07-12] MEDS ORDERED: methylPREDNISolone 125 MG/2 ML VIAL IV SCH (09:00)
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
[2024-07-12] MEDS ORDERED: LEVALBUTEROL HCL 0.63 MG/3 ML NEB NEB PRN (10:50)
--- NOTE | 2024-07-12 11:28 | Electrocardiogram Report ---
Test Reason : Blood Pressure : */* mmHG Vent. Rate : 103 BPM Atrial Rate : * BPM P-R Int : * ms QRS Dur : 86 ms QT Int : 354 ms P-R-T Axes : * 71 259 degrees QTcB Int : 463 ms Atrial fibrillation with rapid ventricular response Marked ST abnormality, possible anterior subendocardial injury Abnormal ECG When compared with ECG of 11-Jul-2024 22:46, HR has decreased by 48 bpm T wave inversion less evident in Lateral leads Confirmed by Tahir Perry ([id number]) on 07/12/2024 11:28:31 AM Referred By: REFERRED SELF Confirmed By: Tahir Perry
[2024-07-12] MEDS: ACETAMINOPHEN 325 MG TAB PO PRN (11:38)
--- NOTE | 2024-07-12 19:50 | Communication Note ---
Patient seen and examined at bedside. Patient curled up in a ball, states she feels close to her baseline. On exam, trace expiratory wheezing, right eye bruising (raccoon eye), cachexia noted. Plan is steroids, duonebs, cardiology consult for homegoing regiment for atrial fibrillation with RVR. Discussed social concerns regarding right eye bruising with case management and nursing staff. Date of Service: July 12, 2024
[2024-07-12] MEDS: METOPROLOL SUCC 25MG EXT REL TAB PO SCH (20:11)
[2024-07-12] MEDS: oxyCODONE HCL IR 5 MG TAB (IMMEDIATE RELEASE) PO PRN (20:19)
[2024-07-13 06:44] LABS: Hematocrit (blood only) 25.3 % (37.0-47.0); Hemoglobin 7.8 g/dl (12.0-16.0); Mean Corpuscular Hemoglobin 28.1 pg (25.0-34.0); Mean Corpuscular Hgb Conc 30.8 g/dL (32.0-36.0); Mean Platelet Volume 8.6 fL (9.4-12.4); Platelet Count 382 K/uL (130-400); RDW Coefficient of Variation 15.6 % (11.5-14.5); RDW Standard Deviation 51.8 fL (36.4-46.3); Red Blood Count 2.78 M/uL (4.20-5.40); White Blood Count 10.64 K/ul (4.8-10.8)
[2024-07-13 07:02] LABS: BUN Creatinine Ratio 19.2 (10-20); Calcium 8.1 mg/dl (8.6-10.3); Creatinine Clr Calc Pharmacy 41.9 ml/min; Potassium 4.4 mmol/L (3.5-5.1)
--- NOTE | 2024-07-13 08:44 | Electrocardiogram Report ---
Test Reason : Blood Pressure : */* mmHG Vent. Rate : 73 BPM Atrial Rate : 73 BPM P-R Int : 132 ms QRS Dur : 76 ms QT Int : 442 ms P-R-T Axes : 103 70 -86 degrees QTcB Int : 486 ms Poor data quality, interpretation may be adversely affected Normal sinus rhythm Minimal voltage criteria for LVH, may be normal variant ( Sokolow-Oden ) Marked ST abnormality, possible lateral subendocardial injury QTcB >= 480 msec Abnormal ECG When compared with ECG of 12-Jul-2024 04:48, Sinus rhythm has replaced Atrial fibrillation Confirmed by Tahir Perry ([id number]) on 07/13/2024 8:43:45 AM Referred By: REFERRED SELF Confirmed By: Tahir Perry
[2024-07-13] MEDS: predniSONE 20 MG TAB PO SCH (09:06)
--- NOTE | 2024-07-13 13:54 | Hospitalist Progress Note ---
Date of Service July 13, 2024 Assessment & Plan (1) SOB (shortness of breath): Plan: 74-year-old female with past medical history significant for chronic respiratory failure with hypoxia on 2 to 3 L oxygen at home, dyslipidemia, hypothyroidism, chronic nonspecific lung disease, COPD, hypertension, CAD status post stent, atrial fibrillation, tobacco use disorder, general anxiety disorder, generalized osteoarthritis, migraines, ambulatory dysfunction who lives at home with her daughter comes because of shortness of breath and found to also be in rapid A- fib. Patient was recently in the hospital for UTI, abnormal EKG, abdominal discomfort and shortness of breath but signed out AMA. Today she was feeling very short of breath. She gave herself breathing treatment and en route she received 2 DuoNeb's. In the ER she was in rapid A-fib with rate of 164 and received couple doses of IV Cardizem. Currently heart rate is under control. Currently resting comfortably. Complains of mild headache. There is a bruise on the right eyelid and brow region and she says she rubbed the eye and denies any falls. No blurred vision. No earache. No runny nose. No sore throat. Has cough. Denies chest pain. Denies nausea. Has abdominal discomfort and poor appetite. Complains of loss of weight. Having diarrhea for couple of weeks. Stools are dark in color. Seems having some burning micturition. Hemodynamics are okay currently. Shortness of breath COPD exacerbation Chronic respiratory failure with hypoxia on 2-3 l oxygen at home Chest x-ray no acute findings Respiratory BioFire negative Will do Xopenex nebs [id number] and as needed IV Solu-Medrol 40 mg 3 times daily Continue home inhalers Close monitor 4/2 back to baseline 2 L NC transitioned from Solumedrol to Prednisone 40mg po daily x 3 more day Rapid A-fib History of A-fib Received couple of doses of IV Cardizem in the ER Continue home Coreg. Question of recently reduced Coreg dose to 3.125 mg IV Lopressor as needed On Eliquis Few days ago had echo Telemetry cardiology consult for further recommendations 4/2 HR controlled on Metoprolol XL 25mg BID on usual Eliquis appreciate Cardiology service evaluation Mild elevation of troponin Mostly demand ischemia trop 19--> 20--> 15 UTI Cultures growing Klebsiella and Staphylococcus epidermidis last admit On Augmentin which will be continued Abdominal aortic aneurysm Ct abd/pelvis: Abdominal aortic aneurysm measuring approximately 3.3 cm in diameter. asymptomatic will need surveillance Ultrasound continue Plavix, Eliquis, Atorvastatin Diarrhea resolved Left elbow wound Since surgery of left distal humerus fracture in March 2024 Following with orthopedics Recent cultures normal hans Currently on Augmentin Wound care consult / Elbow XR ordered will consult Orth History of CAD s/p stents On statin, Coreg, Plavix Hypertension On Coreg, losartan and Lasix with potassium supplement Will monitor Hypothyroidism On Synthyroid GERD On Protonix Hyperlipidemia On statin Tobacco use Needs counseling Generalized anxiety disorder On citalopram and trazodone DVT prophylaxis On Eliquis Disposition pending Full code. Admission and Anticipated Discharge Date Admission Date: July 12, 2024 Subjective ff up for copd exacerbation, etc seen resting in bed, comfortable states she feels that she is improving overall breathing is better, no cough no chest pain, shortness of breath, palpitations no diarrhea, urinary symptoms denies elbow pain no other symptoms Review of Systems Review of Systems: all noted and negative except for above Physical Exam Physical Exam: General- oriented x 3, not in distress, speaks in sentences with no effort or accessory muscle use Eyes- anicteric Neck- no JVD Lungs- clear breath sounds bilaterally, no rales/wheezes Heart- normal rate, irregularly irregular rhythm; no murmurs Abdomen- normal bowel sounds, nondistended, soft, no tenderness Extremities- no pretibial edema, no calf tenderness Neuro- alert, oriented x 3; no gross focal neurologic deficits Skin- warm & dry Results & Data Results & Data Vital Signs (Past 12 Hours) Vital Signs Temp Pulse Resp BP Pulse Ox O2 Del Method O2 Flow Rate 07/13/24 10:58 Nasal Cannula 2 07/13/24 10:20 36.5 C 71 17 126/79 92 Nasal Cannula 2 07/13/24 07:17 36.6 C 70 18 134/85 100 Nasal Cannula 2 07/13/24 02:41 37.1 C 82 20 109/69 99 Nasal Cannula 2 all noted and reviewed including below
--- NOTE | 2024-07-13 14:12 | Cardiology Progress Note ---
Date of Service July 13, 2024 Assessment & Plan (1) Atrial fibrillation with RVR: (2) Abnormal ECG: (3) SOB (shortness of breath): (4) COPD with exacerbation: Plan 07/12/24 Patient admitted with worsening SOB and afib RVR. Treated for COPD exacerbation in setting of chronic respiratory failure. Treatment per hospitalist. Symptoms improving. Oxygen at baseline. Long history of PAF - initially treated with amiodarone. However, this was discontinued in 02/2024 due to underlying severe lung disease. Ongoing rate control strategy recommended with carvedilol and Eliquis. Rates elevated on admission. There was discussion about questionable compliance with home meds. Rates improved after IV cardizem and oral carvedilol. Will change carvedilol to metoprolol due to lower BP readings and for possible better rate control. Start metoprolol succinate 25 mg BID and titrate as needed/tolerated. Continue Eliquis Ongoing rate control recommended. Diffuse T wave inversions noted last week and on current EKG's No anginal complaints. Echo with preserved LVEF, no wall motion abnormalities. possible LVH strain pattern. HS troponin not significantly elevated and flat ranging 15--20 over the last 2 admisisons. History of prior STEMI with RCA interventions in 2022 -Continue plavix, losartan, BB, statin 07/13/24: Ongoing treatment for COPD exacerbation, acute on chronic respiratory failure per hospitalist. PAF - converted to NSR on metoprolol. Continue metoprolol succinate 25 mg BID on discharge (in place of carvedilol) Worsening anemia noted today - 7.8. No acute GI bleeding reported by patient. history of stent to the RCA in 2022. No recent interventions. Acceptable to switch Plavix to ASA 81 mg daily, starting tomorrow. May need to hold Eliquis? Monitor closely consider transfusion. Consider GI evaluation. Abnormal EKG - diffuse T wave abnormality. Preserved LVEF on echo, no wall motion abnormalities. No anginal symptoms Possible LVH with strain pattern. Case discussed with Dr. Mackey I spent a total of 30 minutes on the date of service in preparation, delivery, and documentation of the care provided to this patient, excluding any time spent in the performance of separately billed services. Skylar Macias PA-C Department of Cardiology, [facility] This chart was completed in part utilizing Speech Voice Recognition Software. Grammatical errors, random word insertions, pronoun errors, and incomplete sentences are an occasional consequence of this system due to software limitations, ambient noise, and hardware issues. Any formal questions or concerns about the content, text, or information contained within the body of this dictation should be directly addressed to the provider for clarification. Admission and Anticipated Discharge Date Admission Date: July 12, 2024 Supervising Physician Co-Signing Physician Notes I have personally performed a history and physical examination on the patient. I have reviewed the advance practitioner's documentation, and I agree with, and take responsibility for the plan of care. 74-year-old female with history of paroxysmal atrial fibrillation previously treated with amiodarone. Amiodarone discontinued due to underlying lung disease 02/2024. Carvedilol transition to metoprolol 07/12/2024. Converted to sinus rhythm overnight. Recommend continue metoprolol 25 mg twice daily. Consider holding Eliquis with further drop in hemoglobin. Treated with low-dose aspirin due to history of RCA intervention 2022. Monitor for any signs/symptoms of GI/ blood loss. Serial H/H. Treatment of COPD exacerbation as per internal medicine. I spent a total of 25 minutes on the date of service in preparation, delivery, and documentation of the care provided to this patient, excluding any time spent in the performance of separately billed services. Venkat Mackey DO, [facility] Subjective Patient resting in chair. Feeling better today. SOB improved, back to baseline. No chest pain. No dizziness or lightheadedness. Review of Systems Review of Systems: All systems reviewed & are unremarkable except as noted in HPI & below Physical Exam Constitutional: + thin; no acute distress Neck: trachea midline, no thyromegaly Respiratory: Auscultation: + diminished lung sounds; no crackles and no rales Cardiovascular: Rate/Rhythm: regular rate and regular rhythm Heart Sounds: normal S1 and normal S2; no murmur Vessels: no JVD Extremities: no edema Gastrointestinal (Abdomen): normal bowel sounds, soft, nontender, no hepatosplenomegaly Skin: no rashes, warm and dry Neurologic: PERRL, EOMI, accommodation nl, no face palsy, no dysarthria Psychiatric: A+Ox3, euthymic affect Results & Data Vital Signs (Past 12 Hours) Vital Signs Temp Pulse Pulse Resp BP Pulse Ox O2 Del Method 07/13/24 13:00 75 07/13/24 10:58 Nasal Cannula 07/13/24 10:20 36.5 C 71 17 126/79 92 Nasal Cannula 07/13/24 07:17 36.6 C 70 18 134/85 100 Nasal Cannula 07/13/24 02:41 37.1 C 82 20 109/69 99 Nasal Cannula O2 Flow Rate 07/13/24 13:00 07/13/24 10:58 2 07/13/24 10:20 2 07/13/24 07:17 2 07/13/24 02:41 2 Laboratory Results CBC 07/13/24 Range/Units 06:04 WBC 10.64 (4.8-10.8) K/ul RBC 2.78 L (4.20-5.40) M/uL Hgb 7.8 L (12.0-16.0) g/dl Hct 25.3 L (37.0-47.0) % Plt Count 382 (130-400) K/uL Comprehensive Metabolic Panel 07/13/24 Range/Units 06:04 Sodium 132 L D (136-145) mmol/L Potassium 4.4 (3.5-5.1) mmol/L Chloride 96 L (98-107) mmol/L Carbon Dioxide 33 H (21-32) mmol/L BUN 15 (6-23) mg/dl Creatinine 0.78 (0.6-1.2) mg/dl Glucose 135 H (70-99(Fasting)) mg/dl Calcium 8.1 L (8.6-10.3) mg/dl Intake and Output 07/12/24 07/13/24 07/13/24 22:59 06:59 14:59 Intake Total 200 / 1060 500 / 1060 Output Total 400 / 400 Balance -200 / 660 500 / 660 Intake: Oral 200 / 1060 500 / 1060 Output: Urine 400 / 400 Other: # Unmeasured Voids 1 Diagnostic Findings Telemetry reviewed: Currently NSR in the 's. She converted from atrial to NSR around 4:48 AM this morning EKG today: NSR at 73 bmp, diffuse ST/T wave abnormality. NSR has replaced atrial fib. Medications Administered Current Inpatient Medications Acetaminophen (Acetaminophen 325 Mg Tab) 650 mg PO Q4H PRN PRN Reason: Pain or Fever Stop: 08/11/24 03:15 Last Admin: 07/12/24 11:38 Dose: 650 mg Albuterol (Albuterol Hfa 8 Gm Inhaler) 2 puffs INH Q4 PRN PRN Reason: WHEEZING OR COUGH Stop: 08/11/24 03:15 Amoxicillin/Clavulanate Potassium (Amoxicillin/Clavulanate 500 Mg Tab) 1 tab PO BIDM [facility]; Protocol Stop: 07/17/24 07:59 Last Admin: 07/13/24 09:04 Dose: 1 tab Apixaban (Apixaban 5 Mg Tablet) 5 mg PO BID [facility] Stop: 08/11/24 08:59 Last Admin: 07/13/24 09:00 Dose: 5 mg Atorvastatin Calcium (Atorvastatin 40 Mg Tab) 40 mg PO [facility] Stop: 08/11/24 08:59 Last Admin: 07/13/24 09:01 Dose: 40 mg Citalopram Hydrobromide (Citalopram 40 Mg Tab) 40 mg PO [facility] Stop: 08/11/24 08:59 Last Admin: 07/13/24 09:05 Dose: 40 mg Clopidogrel Bisulfate (Clopidogrel Bisulfate 75 Mg Tab) 75 mg PO [facility] Stop: 08/11/24 08:59 Last Admin: 07/13/24 09:04 Dose: 75 mg Fluticasone/Vilanterol (Fluticasone/Vilanterol 100/25mcg 14 Puffs/Inhaler) 1 puffs INH DAILY [facility] Stop: 08/11/24 08:59 Last Admin: 07/13/24 09:09 Dose: 1 puffs Furosemide (Furosemide 20 Mg Tab) 20 mg PO [facility] Stop: 08/11/24 08:59 Last Admin: 07/13/24 09:04 Dose: 20 mg Gabapentin (Gabapentin 300 Mg Cap) 300 mg PO BID [facility] Stop: 08/11/24 08:59 Last Admin: 07/13/24 09:01 Dose: 300 mg Levalbuterol HCl (Levalbuterol Hcl 0.63 Mg/3 Ml Neb) 0.63 mg NEB Q4H PRN; Protocol PRN Reason: Shortness Of Breath Or Wheezing Stop: 08/11/24 03:15 Levalbuterol HCl (Levalbuterol Hcl 0.63 Mg/3 Ml Neb) 0.63 mg NEB QIDR PRN; Protocol PRN Reason: Shortness Of Breath Or Wheezing Stop: 08/11/24 06:59 Levothyroxine Sodium (Levothyroxine Sodium 25 Mcg Tablet) 25 mcg PO DAILYBB [facility] Stop: 08/11/24 06:29 Last Admin: 07/13/24 06:00 Dose: 25 mcg Losartan Potassium (Losartan Potassium 50 Mg Tab) 100 mg PO QAM [facility] Stop: 08/11/24 08:59 Last Admin: 07/13/24 09:01 Dose: 100 mg Magnesium Oxide (Magnesium Oxide 400 Mg Tab) 400 mg PO BID [facility] Stop: 08/11/24 08:59 Last Admin: 07/13/24 09:02 Dose: 400 mg Metoprolol Succinate (Metoprolol Succ 25mg Ext Rel Tab) 25 mg PO BID [facility] Stop: 08/11/24 20:59 Last Admin: 07/13/24 09:06 Dose: 25 mg Metoprolol Tartrate (Metoprolol Tartrate 1 Mg/Ml Vial) 5 mg IV Q6 PRN PRN Reason: Tachycardia Stop: 08/11/24 03:15 Multivitamins (Multivitamin Tab) 1 tab PO DAILY [facility] Stop: 08/11/24 08:59 Last Admin: 07/13/24 09:03 Dose: 1 tab Nitroglycerin (Nitroglycerin Sl 0.4 Mg/Tab Tab) 0.4 mg SL Q5M PRN PRN Reason: Chest Pain Stop: 08/11/24 03:15 Oxybutynin Chloride (Oxybutynin Chloride Xl 5 Mg Tabcr) [facility]: 08/11/24 08:59 Last Admin: 07/13/24 09:02 Dose: 5 mg Oxycodone HCl (Oxycodone Hcl Ir 5 Mg Tab (Immediate Release)) 5 mg PO Q4H PRN PRN Reason: pain Stop: 07/26/24 03:15 Last Admin: 07/13/24 09:09 Dose: 5 mg Pantoprazole Sodium (Pantoprazole 40 Mg Tab) 40 mg PO QAM [facility] Stop: 08/11/24 08:59 Last Admin: 07/13/24 09:03 Dose: 40 mg Polyethylene Glycol (Polyethylene (Miralax) 17 Gm Pack) 17 gm PO DAILY PRN PRN Reason: Constipation Stop: 08/11/24 03:15 Potassium Chloride (Potassium Chloride 10 Meq Tabcr) 10 meq PO BID [facility] Stop: 08/11/24 08:59 Last Admin: 07/13/24 09:09 Dose: 10 meq Prednisone (Prednisone 20 Mg Tab) 40 mg PO DAILY [facility] Stop: 08/12/24 08:59 Last Admin: 07/13/24 09:06 Dose: 40 mg Umeclidinium Verdon (Umeclidinium [place] 62.5mcg/Blister 7 Puffs/Inhaler) 1 puffs INH DAILY [facility] Stop: 08/11/24 08:59 Last Admin: 07/13/24 09:09 Dose: 1 puffs Vitamin D (Cholecalciferol 25 Mcg (1000 Units) Tab) 50 mcg PO DAILY [facility] Stop: 08/11/24 08:59 Last Admin: 07/13/24 09:05 Dose: 50 mcg
--- NOTE | 2024-07-13 14:37 | XRay Report ---
XR elbow LT min 3V routine CLINICAL HISTORY: non healing elbow wound history of prior fracture with fixation COMPARISON: 03/15/2024 FINDINGS: The distal humeral fracture has been fixed with excellent alignment by the presence of mul tiple screws and metal plates. There is no evidence of hardware failure. No periosteal reaction. Ther e is no joint space abnormality. There are multiple, tiny particles of radiopacity in the soft tissue s posterior to the distal humerus which are likely to be a postoperative in nature. IMPRESSION: Status post ORIF supracondylar fracture of the distal left humerus with satisfactory posi tioning and alignment. No evidence of aggressive bone lesion or periosteal reaction. No elbow joint m alalignment. ACT 112: Negative or not required by law. Electronically signed by: Simi Miller M.D. 07/13/2024 2:35 PM
[2024-07-13] MEDS: PROMETHAZINE 6.25 MG/50.25 ML BAG IV PRN (15:33)
--- NOTE | 2024-07-13 17:52 | Orthopedic Consultation ---
Date of Consultation July 13, 2024 Assessment & Plan (1) Delayed wound healing: Not clear if she is having drainage from a deeper source or if this is just some exudate from the shallow healing wound. I do not see any overt evidence of infection. Continue wound care. Follow-up as an outpatient. Will discuss with medicine regarding the antibiotics and what to do with them. History of Present Illness Attending Physician: Rogers Burnham MD History of Present Illness Patient known to me from outpatient treatment. Had left elbow fracture treated with ORIF at [place]. Developed a wound. The last time I saw her over a month ago she had a large eschar on the posterolateral aspect of her elbow. She had not mated in for follow-up. She was admitted to the hospital for cardiac reasons. She reports having some drainage from her elbow. She is currently on Augmentin and it is not clear who put her on that or how long it has been. Allergies Allergy/AdvReac Type Severity Reaction Status Date / Time bee venom protein (honey bee) Allergy Severe SWELLING Verified 01/30/24 16:12 SEVERE doxycycline Allergy Intermediate Vomiting Verified 01/30/24 16:12 Home Medications Medication Instructions Recorded Confirmed Type multivitamin 1 tab PO DAILY #0 tabs 02/07/14 07/11/24 History omega 9-emd-udm-fish oil 1,000 mg 1 cap PO DAILY #0 caps 04/22/17 07/11/24 History (120 mg-180 mg) capsule (Fish Oil) magnesium oxide 400 mg PO BID #0 tabs 06/01/17 07/11/24 History apixaban 5 mg tablet (Eliquis) 5 mg PO BID 12/06/23 07/11/24 History atorvastatin 40 mg tablet 40 mg PO QAM 12/06/23 07/11/24 History citalopram 40 mg tablet 40 mg PO QAM 12/06/23 07/11/24 History clopidogrel 75 mg tablet 75 mg PO QAM 12/06/23 07/11/24 History fluticasone propionate 115 2 puff inhalation [facility] 12/06/23 07/11/24 History mcg-salmeterol 21 mcg/actuation HFA inhaler gabapentin 300 mg capsule 300 mg PO BID 12/06/23 07/11/24 History levothyroxine 25 mcg tablet 25 mcg PO DAILYBB 12/06/23 07/11/24 History oxybutynin chloride 5 mg 5 mg PO QAM 12/06/23 07/11/24 History tablet,extended release 24 hr potassium chloride 10 mEq 10 meq PO [facility] 12/06/23 07/11/24 History tablet,extended release(part/cryst) (Klor-Con M) nitroglycerin 0.4 mg sublingual 0.4 mg sublingual Q5M PRN chest 12/09/23 07/11/24 Rx tablet (Nitrostat) pain #30 tabs umeclidinium 62.5 mcg/actuation 1 inh inhalation DAILY #30 ea 12/14/23 07/11/24 Rx blister powder for inhalation (Incruse Ellipta) ipratropium 0.5 mg-albuterol 3 mg 3 ml NEB QIDR PRN shortness of 12/28/23 07/11/24 Rx (2.5 mg base)/3 mL nebulization breath #90 mL soln albuterol sulfate 90 mcg/actuation 2 puff inhalation Q4 PRN WHEEZING 01/30/24 07/11/24 History aerosol inhaler OR COUGH pantoprazole 40 mg tablet,delayed 40 mg PO QAM 01/30/24 07/11/24 History release (Protonix) tiotropium bromide 18 mcg capsule 1 cap inhalation QAM 03/02/24 07/11/24 History with inhalation device alendronate 70 mg tablet 70 mg PO WK 03/15/24 07/11/24 History cholecalciferol (vitamin D3) 50 50 mcg PO DAILY 03/24/24 07/11/24 History mcg (2,000 unit) tablet (Vitamin D3) furosemide 40 mg tablet 20 mg PO QAM 03/24/24 07/11/24 History carvedilol 6.25 mg tablet 6.25 mg PO BID #60 tabs 04/01/24 07/11/24 Rx losartan 50 mg tablet 100 mg (2 x 50 mg) PO QAM #30 tabs 04/01/24 07/11/24 Rx oxycodone 5 mg tablet 5 mg PO Q4H PRN pain #15 tabs 04/01/24 07/11/24 Rx amoxicillin 500 mg-potassium 1 tab PO BID 7 days #14 tabs 07/09/24 07/11/24 Rx clavulanate 125 mg tablet (Augmentin) phenazopyridine 200 mg tablet 200 mg PO TID PRN pain #30 tabs 07/09/24 07/11/24 Rx (Pyridium) Patient History Medical History Acute metabolic encephalopathy Myocardial infarction due to demand ischemia Suspected urinary tract infection Severe sepsis with acute organ dysfunction Sepsis Epigastric abdominal tenderness Intravascular volume depletion Non-ST elevation MD (NSTEMI) Acute dyspnea Generalized weakness Elevated troponin level Absent pedal pulses Macular degeneration Asthma Tobacco use disorder Coronary atherosclerosis of [place] coronary vessel Benign hypertension Atrial fibrillation Diabetes Surgical History H/O heart surgery History of cholecystectomy Hx of tubal ligation Social History Smoking Status: Current every day smoker Tobacco Type: Cigarettes Cigarettes Per Day: 5; Second Hand Exposure: No; Do You Dip or Chew Tobacco: No; Hx Alcohol Use: No Hx Substance Use: No Preferred Language: American Communication Ability: Effective Chalk Cutter Required: No Beliefs That Will Affect Care: None Current Living Situation: Family Current Living Situation Comment: with daughter Feels Safe at Home: Yes Assistive Devices: Cane, Oxygen - Continuous, Walker and Wheelchair Physical Exam Physical Exam: Her white count is normal. Elbow motion is full forearm rotation 0/15/115. The elbow is not swollen or red. There is no active drainage. There is some tenderness over the wound which is on the posterolateral aspect of the elbow. It is shallow wound which is about 1 cm wide 2 cm long. I do not see a sinus tract and I cannot express any purulence or fluid. The epidermis is missing and appears to be in the process of reepithelialized. No swelling or redness Results & Data Vital Signs (Past 12 Hours) Vital Signs Temp Pulse Pulse Resp BP Pulse Ox O2 Del Method 07/13/24 16:15 36.6 C 69 20 94/60 L 97 Nasal Cannula 07/13/24 13:00 75 07/13/24 10:58 Nasal Cannula 07/13/24 10:20 36.5 C 71 17 126/79 92 Nasal Cannula 07/13/24 07:17 36.6 C 70 18 134/85 100 Nasal Cannula O2 Flow Rate 07/13/24 16:15 2 04/02/25 13:00 07/13/24 10:58 2 07/13/24 10:20 2 07/13/24 07:17 2 Diagnostic Findings Radiographs of the elbow reviewed. Internal fixation plate and screws distal humerus. Alignment anatomic. There is no evidence of hardware failure or radiolucencies. Fracture appears to be healed. Elbow joint anatomically aligned. Report noted
[2024-07-14 09:20] LABS: Hematocrit (blood only) 24.5 % (37.0-47.0); Hemoglobin 7.6 g/dl (12.0-16.0); Mean Corpuscular Hemoglobin 28.5 pg (25.0-34.0); Mean Corpuscular Volume 91.8 fL (80.0-100.0); Mean Platelet Volume 8.8 fL (9.4-12.4); Platelet Count 347 K/uL (130-400); RDW Coefficient of Variation 15.4 % (11.5-14.5); RDW Standard Deviation 51.8 fL (36.4-46.3); Red Blood Count 2.67 M/uL (4.20-5.40); White Blood Count 9.73 K/ul (4.8-10.8)
[2024-07-14] MEDS: ASPIRIN 81 MG ECTAB PO SCH (09:36)
[2024-07-14 09:55] LABS: Ferritin 32.4 ng/ml (8-388)
--- NOTE | 2024-07-14 09:59 | Electrocardiogram Report ---
Test Reason : Blood Pressure : */* mmHG Vent. Rate : 57 BPM Atrial Rate : 57 BPM P-R Int : 140 ms QRS Dur : 82 ms QT Int : 492 ms P-R-T Axes : 75 54 218 degrees QTcB Int : 478 ms Sinus bradycardia Minimal voltage criteria for LVH, may be normal variant ( Sokolow-Oden ) Abnormal ECG When compared with ECG of 13-Jul-2024 05:06, ST no longer depressed in Inferior leads Confirmed by Tahir Perry ([id number]) on 07/14/2024 9:59:01 AM Referred By: REFERRED SELF Confirmed By: Tahir Perry
[2024-07-14 11:01] LABS: BUN Creatinine Ratio 21.3 (10-20); Calcium 7.9 mg/dl (8.6-10.3); Creatinine Clr Calc Pharmacy 46.3 ml/min; Magnesium 1.8 mg/dl (1.7-2.4); Potassium 4.1 mmol/L (3.5-5.1)
[2024-07-14] MEDS: POLYETHYLENE (MIRALAX) 17 GM PACK PO PRN (11:50)
--- NOTE | 2024-07-14 12:51 | Cardiology Progress Note ---
Date of Service July 14, 2024 Assessment & Plan (1) Atrial fibrillation with RVR: (2) Abnormal ECG: (3) SOB (shortness of breath): (4) COPD with exacerbation: (5) Chronic anemia: Plan 07/12/24 Patient admitted with worsening SOB and afib RVR. Treated for COPD exacerbation in setting of chronic respiratory failure. Treatment per hospitalist. Symptoms improving. Oxygen at baseline. Long history of PAF - initially treated with amiodarone. However, this was discontinued in 02/2024 due to underlying severe lung disease. Ongoing rate control strategy recommended with carvedilol and Eliquis. Rates elevated on admission. There was discussion about questionable compliance with home meds. Rates improved after IV cardizem and oral carvedilol. Will change carvedilol to metoprolol due to lower BP readings and for possible better rate control. Start metoprolol succinate 25 mg BID and titrate as needed/tolerated. Continue Eliquis Ongoing rate control recommended. Diffuse T wave inversions noted last week and on current EKG's No anginal complaints. Echo with preserved LVEF, no wall motion abnormalities. possible LVH strain pattern. HS troponin not significantly elevated and flat ranging 15--20 over the last 2 admisisons. History of prior STEMI with RCA interventions in 2022 -Continue plavix, losartan, BB, statin 07/13/24: Ongoing treatment for COPD exacerbation, acute on chronic respiratory failure per hospitalist. PAF - converted to NSR on metoprolol. Continue metoprolol succinate 25 mg BID on discharge (in place of carvedilol) Worsening anemia noted today - 7.8. No acute GI bleeding reported by patient. history of stent to the RCA in 2022. No recent interventions. Acceptable to switch Plavix to ASA 81 mg daily, starting tomorrow. May need to hold Eliquis? Monitor closely consider transfusion. Consider GI evaluation. Abnormal EKG - diffuse T wave abnormality. Preserved LVEF on echo, no wall motion abnormalities. No anginal symptoms Possible LVH with strain pattern. 07/14/24: SOB/respiratory status appears at baseline with underlying chronic respiratory failure. PAF - remains in NSR. continue metoprolol succinate 25 mg BID (in place of carvedilol). continue Elquis, unless she has evidence of GI bleeding. Supplement magnesium. Hbg down to 7.6. Low iron. Consider IV iron supplement prior to discharge. Would defer to hospitalist. Asa 81 mg daily initiated in place of plavix. She had been on plavix since RCA intervention in 2022. Acceptable to change to Aspirin. No anginal symptoms - continue ASA, BB, statin. No further cardiac testing warranted at this time. will sign off. Please contact pensions retirement plan specialist cardiology provider with additional questions or concerns. Case discussed with Dr. Mackey I spent a total of 30 minutes on the date of service in preparation, delivery, and documentation of the care provided to this patient, excluding any time spent in the performance of separately billed services. Skylar Macias PA-C Department of Cardiology, [facility] This chart was completed in part utilizing Speech Voice Recognition Software. Grammatical errors, random word insertions, pronoun errors, and incomplete sentences are an occasional consequence of this system due to software limitations, ambient noise, and hardware issues. Any formal questions or concerns about the content, text, or information contained within the body of this dictation should be directly addressed to the provider for clarification. Admission and Anticipated Discharge Date Admission Date: July 12, 2024 Supervising Physician Co-Signing Physician Notes I have personally performed a history and physical examination on the patient. I have reviewed the advance practitioner's documentation, and I agree with, and take responsibility for the plan of care. 74-year-old female with history of paroxysmal atrial fibrillation previously treated with amiodarone. Amiodarone discontinued due to underlying lung disease 02/2024. Carvedilol transition to metoprolol 07/12/2024. Converted to sinus rhythm 07/13/2024. Hemoglobin trending down to 7.6 g/dL today. Low iron and ferritin. No signs/symptoms of GI/GI blood loss. Recommendations: * Continue metoprolol 25 mg twice daily. * Consider IV and/or oral iron supplementation (defer to hospitalist) * Consider holding Eliquis with further drop in hemoglobin. * Continue low-dose aspirin due to history of RCA intervention 2022. * Monitor for any signs/symptoms of GI/ blood loss. * Serial H/H. * Treatment of COPD exacerbation as per internal medicine. I spent a total of 25 minutes on the date of service in preparation, delivery, and documentation of the care provided to this patient, excluding any time spent in the performance of separately billed services. Venkat Mackey DO [facility] Subjective Patient resting in bed feeling "good". Denies chest pain. SOB at baseline. No complaints of GI blood loss. Hbg continues to trend lower. No palpitations. No dizziness. Review of Systems Review of Systems: All systems reviewed & are unremarkable except as noted in HPI & below Physical Exam Constitutional: + ill appearing and + thin; no acute dis tress Neck: trachea midline, no thyromegaly Respiratory: Auscultation: + diminished lung sounds; no crackles and no rales Cardiovascular: Rate/Rhythm: regular rate and regular rhythm Heart Sounds: normal S1 and normal S2; no murmur Vessels: no JVD Extremities: no edema Gastrointestinal (Abdomen): normal bowel sounds, soft, nontender, no hepatosplenomegaly Skin: no rashes, warm and dry Neurologic: PERRL, EOMI, accommodation nl, no face palsy, no dysarthria Psychiatric: A+Ox3, euthymic affect Results & Data Vital Signs (Past 12 Hours) Vital Signs Temp Pulse Pulse Resp BP BP Pulse Ox 07/14/24 11:17 36.5 C 61 18 114/69 99 07/14/24 08:29 67 07/14/24 08:02 07/14/24 07:32 36.7 C 57 L 18 105/65 100 07/14/24 03:00 36.7 C 70 16 101/52 L 100 O2 Del Method O2 Flow Rate 07/14/24 11:17 Nasal Cannula 2 07/14/24 08:29 07/14/24 08:02 Nasal Cannula 2 07/14/24 07:32 Nasal Cannula 2 07/14/24 03:00 Nasal Cannula 2 Laboratory Results CBC 07/14/24 Range/Units 08:47 WBC 9.73 (4.8-10.8) K/ul RBC 2.67 L (4.20-5.40) M/uL Hgb 7.6 L (12.0-16.0) g/dl Hct 24.5 L (37.0-47.0) % Plt Count 347 (130-400) K/uL Comprehensive Metabolic Panel 07/14/24 Range/Units 08:47 Sodium 134 L (136-145) mmol/L Potassium 4.1 (3.5-5.1) mmol/L Chloride 97 L (98-107) mmol/L Carbon Dioxide 32 (21-32) mmol/L BUN 16 (6-23) mg/dl Creatinine 0.75 (0.6-1.2) mg/dl Glucose 104 H (70-99(Fasting)) mg/dl Calcium 7.9 L (8.6-10.3) mg/dl Intake and Output 07/13/24 07/14/24 07/14/24 22:59 06:59 14:59 Intake Total 250.25 / 1020.25 340 / 1020.25 Output Total 450 / 800 200 / 200 Balance 250.25 / 220.25 -110 / 220.25 -200 / -200 Intake: IV 50.25 / 50.25 Promethazine 6.25 mg In 50.25 50.25 / 50.25 ml @ 201 mls/hr IV Q6H PRN Rx#: [id number] Oral 200 / 970 340 / 970 Output: Urine 450 / 800 200 / 200 Other: # Unmeasured Voids 1 Weight 45.269 kg Weight Measurement Method Built in [facility] Diagnostic Findings Telemetry reviewed: NSR in the 60-80s. No recurrent afib. Medications Administered Current Inpatient Medications Acetaminophen (Acetaminophen 325 Mg Tab) 650 mg PO Q4H PRN PRN Reason: Pain or Fever Stop: 08/11/24 03:15 Last Admin: 07/14/24 09:42 Dose: 650 mg Albuterol (Albuterol Hfa 8 Gm Inhaler) 2 puffs INH Q4 PRN PRN Reason: WHEEZING OR COUGH Stop: 08/11/24 03:15 Amoxicillin/Clavulanate Potassium (Amoxicillin/Clavulanate 500 Mg Tab) 1 tab PO BIDM [facility]; Protocol Stop: 07/17/24 07:59 Last Admin: 07/14/24 09:36 Dose: 1 tab Apixaban (Apixaban 5 Mg Tablet) 5 mg PO BID [facility] Stop: 08/11/24 08:59 Last Admin: 07/14/24 09:36 Dose: 5 mg Aspirin (Aspirin 81 Mg Ectab) 81 mg PO [facility] Stop: 08/13/24 08:59 Last Admin: 07/14/24 09:36 Dose: 81 mg Atorvastatin Calcium (Atorvastatin 40 Mg Tab) 40 mg PO [facility] Stop: 08/11/24 08:59 Last Admin: 07/14/24 09:37 Dose: 40 mg Citalopram Hydrobromide (Citalopram 40 Mg Tab) 40 mg PO QAM [facility] Stop: 08/11/24 08:59 Last Admin: 07/14/24 09:35 Dose: 40 mg Fluticasone/Vilanterol (Fluticasone/Vilanterol 100/25mcg 14 Puffs/Inhaler) 1 puffs INH DAILY [facility] Stop: 08/11/24 08:59 Last Admin: 07/14/24 09:33 Dose: 1 puffs Furosemide (Furosemide 20 Mg Tab) 20 mg PO QAM [facility] Stop: 08/11/24 08:59 Last Admin: 07/14/24 09:34 Dose: 20 mg Gabapentin (Gabapentin 300 Mg Cap) 300 mg PO BID [facility] Stop: 08/11/24 08:59 Last Admin: 07/14/24 09:35 Dose: 300 mg Promethazine HCl (Phenergan) 6.25 mg in 50.25 mls @ 201 mls/hr IV Q6H PRN PRN Reason: Nausea And Vomiting Stop: 08/12/24 14:44 Last Infusion: 07/13/24 16:07 Dose: Infused Levalbuterol HCl (Levalbuterol Hcl 0.63 Mg/3 Ml Neb) 0.63 mg NEB Q4H PRN; Protocol PRN Reason: Shortness Of Breath Or Wheezing Stop: 08/11/24 03:15 Levalbuterol HCl (Levalbuterol Hcl 0.63 Mg/3 Ml Neb) 0.63 mg NEB QIDR PRN; Protocol PRN Reason: Shortness Of Breath Or Wheezing Stop: 08/11/24 06:59 Levothyroxine Sodium (Levothyroxine Sodium 25 Mcg Tablet) 25 mcg PO DAILYBB [facility] Stop: 08/11/24 06:29 Last Admin: 07/14/24 05:53 Dose: 25 mcg Losartan Potassium (Losartan Potassium 50 Mg Tab) 100 mg PO QAM [facility] Stop: 08/11/24 08:59 Last Admin: 07/14/24 09:35 Dose: 100 mg Magnesium Oxide (Magnesium Oxide 400 Mg Tab) 400 mg PO BID [facility] Stop: 08/11/24 08:59 Last Admin: 07/14/24 09:35 Dose: 400 mg Metoprolol Succinate (Metoprolol Succ 25mg Ext Rel Tab) 25 mg PO BID [facility] Stop: 08/11/24 20:59 Last Admin: 07/14/24 09:34 Dose: 25 mg Metoprolol Tartrate (Metoprolol Tartrate 1 Mg/Ml Vial) 5 mg IV Q6 PRN PRN Reason: Tachycardia Stop: 08/11/24 03:15 Multivitamins (Multivitamin Tab) 1 tab PO DAILY GELACIO Stop: 08/11/24 08:59 Last Admin: 07/14/24 09:37 Dose: 1 tab Nitroglycerin (Nitroglycerin Sl 0.4 Mg/Tab Tab) 0.4 mg SL Q5M PRN PRN Reason: Chest Pain Stop: 08/11/24 03:15 Oxybutynin Chloride (Oxybutynin Chloride Xl 5 Mg Tabcr) 5 mg PO QAM [facility] Stop: 08/11/24 08:59 Last Admin: 07/14/24 09:35 Dose: 5 mg Oxycodone HCl (Oxycodone Hcl Ir 5 Mg Tab (Immediate Release)) 5 mg PO Q4H PRN PRN Reason: pain Stop: 07/26/24 03:15 Last Admin: 07/14/24 11:50 Dose: 5 mg Pantoprazole Sodium (Pantoprazole 40 Mg Tab) 40 mg PO QAM [facility] Stop: 08/11/24 08:59 Last Admin: 07/14/24 09:34 Dose: 40 mg Polyethylene Glycol (Polyethylene (Miralax) 17 Gm Pack) 17 gm PO DAILY PRN PRN Reason: Constipation Stop: 08/11/24 03:15 Last Admin: 07/14/24 11:50 Dose: 17 gm Potassium Chloride (Potassium Chloride 10 Meq Tabcr) 10 meq PO BID [facility] Stop: 08/11/24 08:59 Last Admin: 07/14/24 09:42 Dose: 10 meq Prednisone (Prednisone 20 Mg Tab) 40 mg PO DAILY G[facility]ACIO Stop: 08/12/24 08:59 Last Admin: 07/14/24 09:34 Dose: 40 mg Umeclidinium [place] (Umeclidinium [place] 62.5mcg/Blister 7 Puffs/Inhaler) 1 puffs INH DAILY G[facility]ACIO Stop: 08/11/24 08:59 Last Admin: 07/14/24 09:33 Dose: 1 puffs Vitamin D (Cholecalciferol 25 Mcg (1000 Units) Tab) 50 mcg PO DAILY GELACIO Stop: 08/11/24 08:59 Last Admin: 07/14/24 09:35 Dose: 50 mcg
[2024-07-14] MEDS: IRON SUCROSE 300 MG in SODIUM CHLORIDE 0.9% 250 ML IV ONE (14:00)
--- NOTE | 2024-07-14 14:52 | Hospitalist Progress Note ---
Date of Service July 14, 2024 Assessment & Plan (1) SOB (shortness of breath): Plan: 74-year-old female with past medical history significant for chronic respiratory failure with hypoxia on 2 to 3 L oxygen at home, dyslipidemia, hypothyroidism, chronic nonspecific lung disease, COPD, hypertension, CAD status post stent, atrial fibrillation, tobacco use disorder, general anxiety disorder, generalized osteoarthritis, migraines, ambulatory dysfunction who lives at home with her daughter comes because of shortness of breath and found to also be in rapid A- fib. Patient was recently in the hospital for UTI, abnormal EKG, abdominal discomfort and shortness of breath but signed out AMA. Today she was feeling very short of breath. She gave herself breathing treatment and en route she received 2 DuoNeb's. In the ER she was in rapid A-fib with rate of 164 and received couple doses of IV Cardizem. Currently heart rate is under control. Currently resting comfortably. Complains of mild headache. There is a bruise on the right eyelid and brow region and she says she rubbed the eye and denies any falls. No blurred vision. No earache. No runny nose. No sore throat. Has cough. Denies chest pain. Denies nausea. Has abdominal discomfort and poor appetite. Complains of loss of weight. Having diarrhea for couple of weeks. Stools are dark in color. Seems having some burning micturition. Hemodynamics are okay currently. Shortness of breath COPD exacerbation Chronic respiratory failure with hypoxia on 2-3 l oxygen at home Chest x-ray no acute findings Respiratory BioFire negative Will do Xopenex nebs [id number] and as needed IV Solu-Medrol 40 mg 3 times daily Continue home inhalers Close monitor 4/2 back to baseline 2 L NC transitioned from Solumedrol to Prednisone 40mg po daily x 3 more day /3 stable continue Prednusone 40mg daily x 1 more day Anemia Iron Deficiency - denies melena/hematochezia - check Vit B12 and Folic acid levels - stool fecal occult ordered - Venofer IV ordered - continue Protonix - monitor closely Rapid A-fib History of A-fib Received couple of doses of IV Cardizem in the ER Continue home Coreg. Question of recently reduced Coreg dose to 3.125 mg IV Lopressor as needed On Eliquis Few days ago had echo Telemetry cardiology consult for further recommendations 4/2 HR controlled on Metoprolol XL 25mg BID on usual Eliquis appreciate Cardiology service evaluation 4/3 stable Mild elevation of troponin Mostly demand ischemia trop 19--> 20--> 15 UTI Cultures growing Klebsiella and Staphylococcus epidermidis last admit On Augmentin which will be continued Abdominal aortic aneurysm Ct abd/pelvis: Abdominal aortic aneurysm measuring approximately 3.3 cm in diameter. asymptomatic will need surveillance Ultrasound continue Plavix, Eliquis, Atorvastatin Diarrhea resolved Left elbow wound Since surgery of left distal humerus fracture in March 2024 Following with orthopedics Recent cultures normal hans Currently on Augmentin Wound care consult / Elbow XR ordered will consult Orth 07/14 Elbow xr: Status post ORIF supracondylar fracture of the distal left humerus with satisfactory positioning and alignment. No evidence of aggressive bone lesion or periosteal reaction. No elbow joint malalignment. awaiting Ortho eval History of CAD s/p stents On statin, Coreg, Plavix Hypertension On Coreg, losartan and Lasix with potassium supplement Will monitor Hypothyroidism On Synthyroid GERD On Protonix Hyperlipidemia On statin Tobacco use Needs counseling Generalized anxiety disorder On citalopram and trazodone DVT prophylaxis On Eliquis Disposition pending Full code. Admission and Anticipated Discharge Date Admission Date: July 12, 2024 Subjective ff up for copd exacerbation, etc seen resting in bed, comfortable on 2 L NC states she feels ok overall denies cough, SOB no chest pain, palpitations, dizziness has mild lower abdominal discomfort- no BMs x 2 days, denies hematochezia/melena no other symptoms Review of Systems Review of Systems: all noted and negative except for above Physical Exam Physical Exam: General- oriented x 3, not in distress, speaks in sentences with no effort or accessory muscle use Eyes- anicteric Neck- no JVD Lungs- clear breath sounds bilaterally, no crackles/wheezing Heart- normal rate, irregularly irregular rhythm; no murmurs Abdomen- normal bowel sounds, nondistended, soft, nontender Extremities- no pretibial edema, no calf tenderness Neuro- alert, oriented x 3; no gross focal neurologic deficits Skin- warm & dry Results & Data Results & Data Vital Signs (Past 12 Hours) Vital Signs Temp Pulse Pulse Resp BP BP Pulse Ox 07/14/24 14:08 62 07/14/24 11:17 36.5 C 61 18 114/69 99 07/14/24 08:29 67 07/14/24 08:02 07/14/24 07:32 36.7 C 57 L 18 105/65 100 07/14/24 03:00 36.7 C 70 16 101/52 L 100 O2 Del Method O2 Flow Rate 07/14/24 14:08 07/14/24 11:17 Nasal Cannula 2 07/14/24 08:29 07/14/24 08:02 Nasal Cannula 2 07/14/24 07:32 Nasal Cannula 2 07/14/24 03:00 Nasal Cannula 2
[2024-07-14] MEDS: MAGNESIUM SULFATE / D5W 1 GM/100 ML BAG IV SCH (15:43)
[2024-07-14] MEDS: LACTULOSE SYRUP 30 GM/45 ML UDP PO STA (18:08)
[2024-07-15 06:35] LABS: Basophils # (auto) 0.01 K/uL (0.00-0.20); Basophils % (auto) 0.1 %; Hematocrit (blood only) 28.2 % (37.0-47.0); Hemoglobin 8.7 g/dl (12.0-16.0); Immature Granulocytes # (auto) 0.17 K/uL (0.01-0.20); Immature Granulocytes % (auto) 1.5 %; Lymphocytes # (auto) 1.28 K/uL (1.20-3.40); Lymphocytes % (auto) 11.4 %; Mean Corpuscular Hemoglobin 28.3 pg (25.0-34.0); Mean Corpuscular Hgb Conc 30.9 g/dL (32.0-36.0); Mean Corpuscular Volume 91.9 fL (80.0-100.0); Mean Platelet Volume 8.9 fL (9.4-12.4); Monocytes % (auto) 7.2 %; Neutrophils # (auto) 8.92 K/uL (1.40-6.50); Neutrophils % (auto) 79.8 %; Nucleated RBC # (auto) 0.02 K/uL (0.00-0.12); Nucleated RBC % (auto) 0.2 %; Platelet Count 418 K/uL (130-400); RDW Coefficient of Variation 15.3 % (11.5-14.5); RDW Standard Deviation 51.6 fL (36.4-46.3); Red Blood Count 3.07 M/uL (4.20-5.40); White Blood Count 11.18 K/ul (4.8-10.8)
[2024-07-15 07:36] LABS: Folate (Folic Acid),Ser orPlas 14.16 ng/ml (>5.38)
--- NOTE | 2024-07-15 14:43 | Orthopedic Progress Note ---
Date of Service July 15, 2024 Assessment & Plan (1) Delayed wound healing: Plan: Wound evaluated. There is good movement of the elbow without redness swelling. There is some scant drainage on her Optifoam dressing. There is a wound about a centimeter wide 2 to 3 cm long which is superficial. Proximally there is some fibrinous exudate and some marginally necrotic stringy type tissue. This area is tender. It is located over the posterolateral olecranon and towards the lateral side of her distal humerus. There is no young purulence erythema or expressible drainage. The patient reports that she has had recurrent bouts of drainage from the elbow wound. Given these findings it is possible that her elbow hardware may be contaminated. If that is the case the options would be to try some chronic suppression with Keflex or cefpodoxime. Another option would be to get her seen by her doctors at [place] to evaluate for possible hardware removal irrigation debridement. She is interested in seeing her doctor at [place] and will try to make that happen. Will try to set up an appointment as an outpatient. Admission and Anticipated Discharge Date Admission Date: July 12, 2024 Orthopedic Progress Note No current problems reported on the left elbow. Culture July 08 grew out Staph epidermidis. I was trying to figure out why she was on Augmentin. Bertha Jim tracked down that July 09, 2024 patient was admitted to [facility] for urinary tract infection and was started on Augmentin. She then left AMA that same day. I also talked with her daughter and she states that she was placed on Augmentin from the family physician, Dr. Prado that she saw on July 05. I called their office and they stated that they actually put her on Bactrim. The daughter seems to think it was for the infection of the elbow.
[2024-07-15 17:27] LABS: BUN Creatinine Ratio 21.5 (10-20); Creatinine Clr Calc Pharmacy 43.7 ml/min; Potassium 4.2 mmol/L (3.5-5.1)
--- NOTE | 2024-07-15 17:46 | Hospitalist Progress Note ---
Date of Service July 15, 2024 delayed entry date of service noted above Assessment & Plan (1) SOB (shortness of breath): Plan: 74-year-old female with past medical history significant for chronic respiratory failure with hypoxia on 2 to 3 L oxygen at home, dyslipidemia, hypothyroidism, chronic nonspecific lung disease, COPD, hypertension, CAD status post stent, atrial fibrillation, tobacco use disorder, general anxiety disorder, generalized osteoarthritis, migraines, ambulatory dysfunction who lives at home with her daughter comes because of shortness of breath and found to also be in rapid A- fib. Patient was recently in the hospital for UTI, abnormal EKG, abdominal discomfort and shortness of breath but signed out AMA. Today she was feeling very short of breath. She gave herself breathing treatment and en route she received 2 DuoNeb's. In the ER she was in rapid A-fib with rate of 164 and received couple doses of IV Cardizem. Currently heart rate is under control. Currently resting comfortably. Complains of mild headache. There is a bruise on the right eyelid and brow region and she says she rubbed the eye and denies any falls. No blurred vision. No earache. No runny nose. No sore throat. Has cough. Denies chest pain. Denies nausea. Has abdominal discomfort and poor appetite. Complains of loss of weight. Having diarrhea for couple of weeks. Stools are dark in color. Seems having some burning micturition. Hemodynamics are okay currently. Shortness of breath COPD exacerbation Chronic respiratory failure with hypoxia on 2-3 l oxygen at home Chest x-ray no acute findings Respiratory BioFire negative Will do Xopenex nebs [id number] and as needed IV Solu-Medrol 40 mg 3 times daily Continue home inhalers Close monitor 4/2 back to baseline 2 L NC transitioned from Solumedrol to Prednisone 40mg po daily x 3 more day 4/3 stable continue Prednusone 40mg daily x 1 more day 4/4 respiratory status continues to improve Anemia Iron Deficiency - denies melena/hematochezia - check Vit B12 and Folic acid levels - stool fecal occult ordered - Venofer IV ordered - continue Protonix - monitor closely Hg 8.7 Rapid A-fib History of A-fib Received couple of doses of IV Cardizem in the ER Continue home Coreg. Question of recently reduced Coreg dose to 3.125 mg IV Lopressor as needed On Eliquis Few days ago had echo Telemetry cardiology consult for further recommendations 4/2 HR controlled on Metoprolol XL 25mg BID on usual Eliquis appreciate Cardiology service evaluation 07/15 stable Mild elevation of troponin Mostly demand ischemia trop 19--> 20--> 15 UTI Cultures growing Klebsiella and Staphylococcus epidermidis last admit On Augmentin which will be continued Abdominal aortic aneurysm Ct abd/pelvis: Abdominal aortic aneurysm measuring approximately 3.3 cm in diameter. asymptomatic will need surveillance Ultrasound continue Plavix, Eliquis, Atorvastatin Diarrhea resolved Left elbow wound Since surgery of left distal humerus fracture in March 2024 Following with orthopedics Recent cultures normal hans Currently on Augmentin Wound care consult 07/13 Elbow XR ordered will consult Orth 07/14 Elbow xr: Status post ORIF supracondylar fracture of the distal left humerus with satisfactory positioning and alignment. No evidence of aggressive bone lesion or periosteal reaction. No elbow joint malalignment. awaiting Ortho eval 07/15 per Ortho, Patient may have contaminated hardware in the left elbow Patient prefers to follow-up with [place] [facility] She will need suppressive cephalexin or cefpodoxime per Ortho service Appreciate recommendations by Dr. Lua History of CAD s/p stents On statin, Coreg, Plavix Hypertension On Coreg, losartan and Lasix with potassium supplement Will monitor Hypothyroidism On Synthyroid GERD On Protonix Hyperlipidemia On statin Tobacco use Needs counseling Generalized anxiety disorder On citalopram and trazodone DVT prophylaxis On Eliquis Disposition pending Full code. Admission and Anticipated Discharge Date Admission Date: July 12, 2024 Subjective seen resting in bed, comfortable not in distress states breathing is improving denies pain no abdominal pain, nausea Review of Systems Review of Systems: all noted and negative except for above Physical Exam Physical Exam: General- oriented x 3, not in distress, speaks in sentences with no effort or accessory muscle use Eyes- anicteric Neck- no JVD Lungs- clear breath sounds bilaterally Heart- normal rate, regular rhythm; no murmurs Abdomen- normal bowel sounds, nondistended, soft, nontender Extremities- no pretibial edema, no calf tenderness Neuro- alert, oriented x 3; no gross focal neurologic deficits Skin- warm & dry Results & Data Results & Data Vital Signs (Past 12 Hours) Vital Signs Temp Pulse Pulse Resp BP Pulse Ox O2 Del Method 07/15/24 16:13 36.7 C 104 H 18 114/70 97 Nasal Cannula 07/15/24 13:53 92 H 07/15/24 11:22 36.7 C 102 H 18 120/85 96 Nasal Cannula 07/15/24 10:26 Nasal Cannula 07/15/24 07:51 62 07/15/24 07:41 36.7 C 98 H 18 134/78 91 Nasal Cannula O2 Flow Rate 07/15/24 16:13 2 07/15/24 13:53 07/15/24 11:22 2 07/15/24 10:26 2 07/15/24 07:51 07/15/24 07:41 all noted and negative except for above
[2024-07-16 08:37] LABS: Basophils # (auto) 0.02 K/uL (0.00-0.20); Basophils % (auto) 0.1 %; Eosinophils # (auto) 0.01 K/uL (0.00-0.50); Eosinophils % (auto) 0.1 %; Hematocrit (blood only) 27.9 % (37.0-47.0); Hemoglobin 8.6 g/dl (12.0-16.0); Immature Granulocytes # (auto) 0.29 K/uL (0.01-0.20); Immature Granulocytes % (auto) 2.1 %; Lymphocytes # (auto) 3.31 K/uL (1.20-3.40); Lymphocytes % (auto) 24.4 %; Mean Corpuscular Hemoglobin 28.1 pg (25.0-34.0); Mean Corpuscular Hgb Conc 30.8 g/dL (32.0-36.0); Mean Corpuscular Volume 91.2 fL (80.0-100.0); Mean Platelet Volume 8.8 fL (9.4-12.4); Monocytes # (auto) 0.99 K/uL (0.11-0.59); Monocytes % (auto) 7.3 %; Neutrophils # (auto) 8.95 K/uL (1.40-6.50); Nucleated RBC # (auto) 0.05 K/uL (0.00-0.12); Nucleated RBC % (auto) 0.4 %; Platelet Count 454 K/uL (130-400); RDW Coefficient of Variation 15.4 % (11.5-14.5); RDW Standard Deviation 50.9 fL (36.4-46.3); Red Blood Count 3.06 M/uL (4.20-5.40); White Blood Count 13.57 K/ul (4.8-10.8)
[2024-07-16 08:51] LABS: BUN Creatinine Ratio 24.2 (10-20); Calcium 8.2 mg/dl (8.6-10.3); Creatinine Clr Calc Pharmacy 52.8 ml/min; Potassium 4.1 mmol/L (3.5-5.1)
--- NOTE | 2024-07-16 18:04 | Hospitalist Progress Note ---
Date of Service July 16, 2024 Assessment & Plan (1) SOB (shortness of breath): Plan: 74-year-old female with past medical history significant for chronic respiratory failure with hypoxia on 2 to 3 L oxygen at home, dyslipidemia, hypothyroidism, chronic nonspecific lung disease, COPD, hypertension, CAD status post stent, atrial fibrillation, tobacco use disorder, general anxiety disorder, generalized osteoarthritis, migraines, ambulatory dysfunction who lives at home with her daughter comes because of shortness of breath and found to also be in rapid A- fib. Patient was recently in the hospital for UTI, abnormal EKG, abdominal discomfort and shortness of breath but signed out AMA. Today she was feeling very short of breath. She gave herself breathing treatment and en route she received 2 DuoNeb's. In the ER she was in rapid A-fib with rate of 164 and received couple doses of IV Cardizem. Currently heart rate is under control. Currently resting comfortably. Complains of mild headache. There is a bruise on the right eyelid and brow region and she says she rubbed the eye and denies any falls. No blurred vision. No earache. No runny nose. No sore throat. Has cough. Denies chest pain. Denies nausea. Has abdominal discomfort and poor appetite. Complains of loss of weight. Having diarrhea for couple of weeks. Stools are dark in color. Seems having some burning micturition. Hemodynamics are okay currently. Shortness of breath COPD exacerbation Chronic respiratory failure with hypoxia on 2-3 l oxygen at home Chest x-ray no acute findings Respiratory BioFire negative Will do Xopenex nebs [id number] and as needed IV Solu-Medrol 40 mg 3 times daily Continue home inhalers Close monitor 4/2 back to baseline 2 L NC transitioned from Solumedrol to Prednisone 40mg po daily x 3 more day 4/3 stable continue Prednusone 40mg daily x 1 more day 4/5 Stable At baseline O2 2 L DC prednisone Anemia Iron Deficiency - denies melena/hematochezia - check Vit B12 and Folic acid levels - stool fecal occult ordered - Venofer IV ordered - continue Protonix - monitor closely 4/5 Hg 7.6, 8.7, 8.6 Denies melena hematochezia FOBT pending Continue to monitor closely in light of Eliquis use Continue Protonix Status post IV iron Will need oral ferrous sulfate Will need close monitoring while on Eliquis Rapid A-fib History of A-fib Received couple of doses of IV Cardizem in the ER Continue home Coreg. Question of recently reduced Coreg dose to 3.125 mg IV Lopressor as needed On Eliquis Few days ago had echo Telemetry cardiology consult for further recommendations 4/2 HR controlled on Metoprolol XL 25mg BID on usual Eliquis appreciate Cardiology service evaluation 4/5 stable Mild elevation of troponin Mostly demand ischemia trop 19--> 20--> 15 UTI Cultures growing Klebsiella and Staphylococcus epidermidis last admit On Augmentin day # [address] abd/pelvis: Abdominal aortic aneurysm measuring approximately 3.3 cm in diameter. asymptomatic will need surveillance Ultrasound continue Plavix, Eliquis, Atorvastatin Diarrhea resolved Left elbow wound Since surgery of left distal humerus fracture in March 2024 Following with orthopedics Recent cultures normal hans Currently on Augmentin Wound care consult / Elbow XR ordered will consult Orth / Elbow xr: Status post ORIF supracondylar fracture of the distal left humerus with satisfactory positioning and alignment. No evidence of aggressive bone lesion or periosteal reaction. No elbow joint malalignment. awaiting Ortho eval 4/ per Ortho, Patient may have contaminated hardware in the left elbow Patient prefers to follow-up with [facility] She will need suppressive cephalexin or cefpodoxime per Ortho service Appreciate recommendations by Dr. Lua History of CAD s/p stents On statin, Coreg, Plavix Hypertension On Coreg, losartan and Lasix with potassium supplement Will monitor Hypothyroidism On Synthyroid GERD On Protonix Hyperlipidemia On statin Tobacco use Needs counseling Generalized anxiety disorder On citalopram and trazodone DVT prophylaxis On Eliquis Disposition pending Admission and Anticipated Discharge Date Admission Date: July 12, 2024 Subjective Follow-up for COPD exacerbation, atrial fibrillation RVR, left elbow wound, etc. Seen resting in bed, comfortable, not in distress States she feels fine overall No shortness of breath, chest pain, palpitations No abdominal pain, melena or hematochezia Denies pain over the left elbow No other new symptoms Review of Systems Review of Systems: all noted and negative except for above Physical Exam Physical Exam: General- oriented x 3, not in distress, speaks in sentences with no effort or accessory muscle use Eyes- anicteric Neck- no JVD Lungs- clear breath sounds bilaterally, no rales/wheezes Heart- normal rate, regular rhythm; no murmurs Abdomen- normal bowel sounds, nondistended, soft, nontender Extremities- no pretibial edema, no calf tenderness Neuro- alert, oriented x 3; no gross focal neurologic deficits Skin- warm & dry Results & Data Results & Data Vital Signs (Past 12 Hours) Vital Signs Temp Pulse Pulse Resp BP Pulse Ox O2 Del Method 07/16/24 15:08 36.7 C 96 H 18 112/75 97 Nasal Cannula 07/16/24 13:26 81 07/16/24 11:44 36.7 C 86 18 106/71 97 Nasal Cannula 07/16/24 10:23 Nasal Cannula 07/16/24 07:50 36.6 C 86 18 124/76 98 Nasal Cannula O2 Flow Rate 07/16/24 15:08 2 07/16/24 13:26 07/16/24 11:44 07/16/24 10:23 2 07/16/24 07:50 all noted and reviewed including below
[2024-07-16] MEDS: ADVANCED PROBIOTIC 625 MG CAPSULE PO SCH (19:21)
[2024-07-17] MEDS: LEVALBUTEROL HCL 0.63 MG/3 ML NEB NEB PRN (08:14)
[2024-07-17 09:41] LABS: Basophils # (auto) 0.03 K/uL (0.00-0.20); Basophils % (auto) 0.2 %; Eosinophils # (auto) 0.03 K/uL (0.00-0.50); Eosinophils % (auto) 0.2 %; Immature Granulocytes # (auto) 0.36 K/uL (0.01-0.20); Immature Granulocytes % (auto) 2.4 %; Mean Corpuscular Hemoglobin 27.9 pg (25.0-34.0); Mean Corpuscular Volume 92.9 fL (80.0-100.0); Mean Platelet Volume 8.9 fL (9.4-12.4); Monocytes # (auto) 0.88 K/uL (0.11-0.59); Monocytes % (auto) 5.9 %; Neutrophils # (auto) 10.71 K/uL (1.40-6.50); Neutrophils % (auto) 71.3 %; Nucleated RBC # (auto) 0.04 K/uL (0.00-0.12); Nucleated RBC % (auto) 0.3 %; Platelet Count 536 K/uL (130-400); RDW Coefficient of Variation 15.5 % (11.5-14.5); RDW Standard Deviation 52.6 fL (36.4-46.3); Red Blood Count 3.23 M/uL (4.20-5.40); White Blood Count 15.01 K/ul (4.8-10.8)
[2024-07-17] MEDS: NITROGLYCERIN SL 0.4 MG/TAB TAB SL PRN (09:58)
[2024-07-17] MEDS: METOPROLOL TARTRATE 1 MG/ML VIAL IV PRN (10:22)
[2024-07-17 11:27] LABS: Calcium 8.7 mg/dl (8.6-10.3); Creatinine Clr Calc Pharmacy 65.9 ml/min; Potassium 4.1 mmol/L (3.5-5.1)
--- NOTE | 2024-07-17 12:32 | Cardiology Progress Note ---
Date of Service July 17, 2024 Assessment & Plan (1) Chest pain: (2) Atrial fibrillation with RVR: (3) SOB (shortness of breath): (4) COPD (chronic obstructive pulmonary disease): (5) Chronic anemia: Plan 74 year old female with history of paroxysmal atrial fibrillation, was admitted with worsening shortness of breath and afib with RVR. Also treated for COPD exacerbation in setting of chronic respiratory failure. Converted to NSR. Noted to have abnormal EKG with diffuse T wave abnormality on admission. Echo with preserved EF, no WMA. Today, was in afib/flutter with RVR, had acute chest pain, that was improved with sublingual nitro. - troponin negative x1 - repeat limited echo with normal LVEF, no definitive WMA, possible HCM - T wave inversions may be due to HCM, no significant change compared to previous EKGs - chest pain may be due to tachycardia with HCM, recommend rate control - increase metoprolol succinate to 37.5 mg twice daily - continue Eliquis, furosemide, atorvastatin, losartan, aspirin - continue to monitor on telemetry - outpatient cardiology follow up, can consider cardiac MRI as outpatient Case discussed with attending physician, further recommendations per Dr. Stockton. I spent a total of 45 minutes on the date of service in preparation, delivery, and documentation of the care provided to this patient excluding any time spent in the performance of separately billed services. This visit was a split-shared visit with the substantial portion of the decision making performed by the supervising airplane electrical repairer/billing provider. Admission and Anticipated Discharge Date Admission Date: July 12, 2024 Supervising Physician Co-Signing Physician Notes I spent a total of 40 minutes on the date of service in preparation, delivery, and documentation of the care provided to this patient, excluding any time spent in the performance of separately billed services. I have personally performed a history and physical examination on the patient. I have reviewed the advance practitioner's documentation, and I agree with, and take responsibility for the plan of care. 74-year-old female with past medical history of paroxysmal atrial fibrillation, coronary artery disease (history of inferior STEMI in 2022 stent to RCA) presented today for response. She was treated for COPD exacerbation. For his tory of paroxysmal atrial fibrillation she was initially treated with amiodarone with continued due to underlying severe lung disease. She was opted to have a rate control strategy. Her dose of carvedilol was switched over to metoprolol due to low blood pressure readings and for allowing better rate control. Of note her ECG was noted to have diffuse T wave inversions that was also loaded on ECGs from June but was not having any chest pain and was not to have these changes due to LVH strain pattern. Her troponins were flat. Echocardiogram done on 07/09/2024 showed preserved left ventricular systolic function with no wall motion abnormalities. Cardiology was asked to evaluate patient again today as she had an episode of chest discomfort this morning. Again her ECG showed atrial fibrillation with rapid ventricular response with a rate of 106 bpm and deep T wave inversions in the anterior precordial leads. Her chest pain has now subsided. Her troponins were negative x 2. Repeat echocardiogram shows preserved left ventricular ejection fraction with no overt wall motion abnormalities. Unclear what to make of these deep T wave inversions. She has no neurologic symptoms. She is currently resting comfortably in bed euvolemic on exam. Her echocardiogram did show possible apical atrophy which unclear if it is apical hypertrophy or foreshortening of her LV apex. Given her deep T wave inversions apical hypertrophic cardiomyopathy is in the differential and may consider outpatient cardiac MRI. However in light of her chest discomfort ischemia is also a possibility. I discussed case with interventional cardiology as patient currently is chest pain-free with negative troponins no need to take her to the [facility] now but if she develops more chest discomfort we will co nsider a left heart catheterization. Will trend troponins today. In anticipation for possible left heart catheterization the patient has recurrent symptoms we will have patient's will be switched from Eliquis to heparin and will keep patient n.p.o. after midnight. Subjective Patient seen today in follow up due to sudden onset of chest pain. I was contacted by nursing around 10AM due to patient having substernal chest pain. On examination, she noted chest tightness and mild shortness of breath. EKG with atrial flutter with RVR, T wave inversions in V2-V5. Was given sublingual nitro with mild improvement of symptoms. Metoprolol IVP given. Echo and stat troponin ordered. Hospitalist at bedside and case also discussed with attending cardiolo gist. Review of Systems Review of Systems: CONSTITUTIONAL: No change in weight, No weakness, No fatigue and No fevers, No sweats or chills. PULMONARY: No cough, sputum, or hemoptysis, No wheezing, +shortness of breath and No recent change in breathing. CARDIOVASCULAR: +chest pain, No dyspnea on exertion, No edema, No palpitations and No syncope. GASTROINTESTINAL: No abdominal pain, No change in bowel habits, No significant heartburn, No nausea, No vomiting, No diarrhea, No constipation, No blood in stools or black tarry stools. No dysphagia. HEMATOLOGIC: No abnormal bleeding and No bruising. NEUROLOGICAL: Normal balance, No headaches and No weakness. Physical Exam Physical Exam: General: Ill appearing. A+Ox3. HEENT: Normocephalic. Atraumatic. PERRL. EOMI. Conjunctiva and sclera clear. NECK: No carotid bruits. No JVD. Carotid upstrokes are brisk. Heart: Tachycardic, regular. S1 and S2 noted. No murmur. No rubs or gallops. PMI non displaced. Lungs: Clear to auscultation. No wheezes. No rhonchi. No rales. Abdomen: Normal bowel sounds. Soft. Nontender. No masses or organomegaly. No abdominal bruits. Extremities: No edema. No clubbing or cyanosis. Pulses: radial=2/4, posterior tibial=2/4, dorsalis pedis = 2/4. NEURO: No focal deficits. PSYCH: Appropriate affect and insight. Results & Data Vital Signs (Past 12 Hours) Vital Signs Temp Pulse Pulse Pulse Resp BP BP 07/17/24 11:34 07/17/24 11:30 36.6 C 93 H 18 123/83 07/17/24 10:41 100 H 17 07/17/24 10:40 100 H 115/77 07/17/24 10:28 97 H 16 07/17/24 10:22 101 H 114/67 07/17/24 10:17 101 H 14 07/17/24 10:10 104 H 16 07/17/24 09:58 114 H 125/84 07/17/24 08:16 84 16 07/17/24 07:56 36.5 C 85 18 145/90 H 07/17/24 03:11 36.4 C L 94 H 20 143/87 H BP Pulse Ox O2 Del Method O2 Flow Rate 07/17/24 11:34 Nasal Cannula 2 07/17/24 11:30 98 Nasal Cannula 2 07/17/24 10:41 115/77 95 Nasal Cannula 2 07/17/24 10:40 07/17/24 10:28 112/70 94 Nasal Cannula 2 07/17/24 10:22 07/17/24 10:17 114/67 96 Nasal Cannula 2 07/17/24 10:10 96/64 L 07/17/24 09:58 95 Nasal Cannula 2 07/17/24 08:16 97 Nasal Cannula 2 07/17/24 07:56 99 Nasal Cannula 2 07/17/24 03:11 99 Room Air Laboratory Results Cardiac Enzymes 07/17/24 07/17/24 Range/Units 08:55 10:46 Troponin I High Sens 6.6 5.7 (0-14) pg/ml CBC 07/17/24 Range/Units 08:55 WBC 15.01 H (4.8-10.8) K/ul RBC 3.23 L (4.20-5.40) M/uL Hgb 9.0 L (12.0-16.0) g/dl Hct 30.0 L (37.0-47.0) % Plt Count 536 H (130-400) K/uL Neut # (Auto) 10.71 H (1.40-6.50) K/uL Lymph # (Auto) 3.00 (1.20-3.40) K/uL [place] # (Auto) 0.88 H (0.11-0.59) K/uL Eos # (Auto) 0.03 (0.00-0.50) K/uL Baso # (Auto) 0.03 (0.00-0.20) K/uL Comprehensive Metabolic Panel 07/17/24 Range/Units 10:46 Sodium 136 (136-145) mmol/L Potassium 4.1 (3.5-5.1) mmol/L Chloride 95 L (98-107) mmol/L Carbon Dioxide 38 H (21-32) mmol/L BUN 22 (6-23) mg/dl Creatinine 0.55 L (0.6-1.2) mg/dl Glucose 101 H (70-99(Fasting)) mg/dl Calcium 8.7 (8.6-10.3) mg/dl Intake and Output 07/16/24 07/17/24 07/17/24 22:59 06:59 14:59 Intake Total 125.25 / 200.25 75 / 200.25 Balance 125.25 / 200.25 75 / 200.25 Intake: IV 50.25 / 50.25 Promethazine 6.25 mg In 50.25 50.25 / 50.25 ml @ 201 mls/hr IV Q6H PRN Rx#: [id number] Oral 75 / 150 75 / 150 Other: # Unmeasured Voids 2 1 Weight 47.2 kg Weight Measurement Method Built in [facility] Diagnostic Findings Echo 07/17/24 with normal LVEF 55-60%, no clear cut WMA, apical thickening suggestive of apical HCM (1) Chest pain Chest pain type: unspecified Qualified Code(s): R07.9 - Chest pain, unspecified (4) COPD (chronic obstructive pulmonary disease) COPD type: COPD with acute exacerbation Qualified Code(s): J44.1 - Chronic obstructive pulmonary disease with (acute) exacerbation
--- NOTE | 2024-07-17 12:59 | Hospitalist Progress Note ---
Date of Service July 17, 2024 Assessment & Plan (1) SOB (shortness of breath): Plan: 74-year-old female with past medical history significant for chronic respiratory failure with hypoxia on 2 to 3 L oxygen at home, dyslipidemia, hypothyroidism, chronic nonspecific lung disease, COPD, hypertension, CAD status post stent, atrial fibrillation, tobacco use disorder, general anxiety disorder, generalized osteoarthritis, migraines, ambulatory dysfunction who lives at home with her daughter comes because of shortness of breath and found to also be in rapid A- fib. Patient was recently in the hospital for UTI, abnormal EKG, abdominal discomfort and shortness of breath but signed out AMA. Today she was feeling very short of breath. She gave herself breathing treatment and en route she received 2 DuoNeb's. In the ER she was in rapid A-fib with rate of 164 and received couple doses of IV Cardizem. Currently heart rate is under control. Currently resting comfortably. Complains of mild headache. There is a bruise on the right eyelid and brow region and she says she rubbed the eye and denies any falls. No blurred vision. No earache. No runny nose. No sore throat. Has cough. Denies chest pain. Denies nausea. Has abdominal discomfort and poor appetite. Complains of loss of weight. Having diarrhea for couple of weeks. Stools are dark in color. Seems having some burning micturition. Hemodynamics are okay currently. Chest pain New septalT wave depressions Troponin x 1 negative Seems to have resolved after 2 doses of nitro Lopressor IV also given Already on Eliquis, aspirin Cardiology on board Shortness of breath COPD exacerbation Chronic respiratory failure with hypoxia on 2-3 l oxygen at home Chest x-ray no acute findings Respiratory BioFire negative Will do Xopenex nebs [id number] and as needed IV Solu-Medrol 40 mg 3 times daily Continue home inhalers Close monitor 4/2 back to baseline 2 L NC transitioned from Solumedrol to Prednisone 40mg po daily x 3 more day 4/3 stable continue Prednusone 40mg daily x 1 more day 4/5 Stable At baseline O2 2 L DC prednisone 4/6 Respiratory stable Off prednisone Anemia Iron Deficiency - denies melena/hematochezia - check Vit B12 and Folic acid levels - stool fecal occult ordered - Venofer IV ordered - continue Protonix - monitor closely 4/5 Hg 7.6, 8.7, 8.6 Denies melena hematochezia FOBT pending Continue to monitor closely in light of Eliquis use Continue Protonix Status post IV iron Will need oral ferrous sulfate Will need close monitoring while on Eliquis 07/17 Hemoglobin remains around 8-9 FOBT positive GI consulted as patient is on Eliquis plus aspirin Rapid A-fib History of A-fib Received couple of doses of IV Cardizem in the ER Continue home Coreg. Question of recently reduced Coreg dose to 3.125 mg IV Lopressor as needed On Eliquis Few days ago had echo Telemetry cardiology consult for further recommendations 4/2 HR controlled on Metoprolol XL 25mg BID on usual Eliquis appreciate Cardiology service evaluation / stable / Mild tachycardia today Lopressor IV given Awaiting further recommendations per cardiology service Mild elevation of troponin Mostly demand ischemia trop 19--> 20--> 15 UTI Cultures growing Klebsiella and Staphylococcus epidermidis last admit completed Augmentin day # [address] abd/pelvis: Abdominal aortic aneurysm measuring approximately 3.3 cm in diameter. asymptomatic will need surveillance Ultrasound continue Plavix, Eliquis, Atorvastatin Diarrhea resolved Left elbow wound Since surgery of left distal humerus fracture in March 2024 Following with orthopedics Recent cultures normal hans Currently on Augmentin Wound care consult / Elbow XR ordered will consult Orth 07/14 Elbow xr: Status post ORIF supracondylar fracture of the distal left humerus with satisfactory positioning and alignment. No evidence of aggressive bone lesion or periosteal reaction. No elbow joint malalignment. awaiting Ortho eval / per Ortho, Patient may have contaminated hardware in the left elbow Patient prefers to follow-up with [facility] She will need suppressive cephalexin or cefpodoxime per Ortho service Appreciate recommendations by Dr. Lua 07/[address] on suppressive therapy of Cephalexin BID History of CAD s/p stents On statin, Coreg, Plavix Hypertension On Coreg, losartan and Lasix with potassium supplement Will monitor Hypothyroidism On Synthyroid GERD On Protonix Hyperlipidemia On statin Tobacco use Needs counseling Generalized anxiety disorder On citalopram and trazodone DVT prophylaxis On Eliquis Disposition pending Admission and Anticipated Discharge Date Admission Date: July 12, 2024 Subjective Notified by RN as patient was having chest pain EKG showing worsening anterolateral T wave depressions and new septal T wave depressions Nitroglycerin tablet ordered to be given stat Seen at the bedside, states chest pain is somewhat improving No shortness of breath No other new symptoms Review of Systems Review of Systems: all noted and negative except for above Physical Exam Physical Exam: General- oriented x 3, not in distress, speaks in sentences with no effort or accessory muscle use Eyes- anicteric Neck- no JVD Lungs- clear breath sounds bilaterally, no rales/wheezes Heart- mild tachycardia, irregularly irregular rhythm; no murmurs Abdomen- normal bowel sounds, nondistended, soft, nontender Extremities- no pretibial edema, no calf tenderness Neuro- alert, oriented x 3; no gross focal neurologic deficits Skin- warm & dry Results & Data Results & Data Vital Signs (Past 12 Hours) Vital Signs Temp Pulse Pulse Pulse Resp BP BP 07/17/24 11:34 07/17/24 11:30 36.6 C 93 H 18 123/83 07/17/24 10:41 100 H 17 07/17/24 10:40 100 H 115/77 07/17/24 10:28 97 H 16 07/17/24 10:22 101 H 114/67 07/17/24 10:17 101 H 14 07/17/24 10:10 104 H 16 07/17/24 09:58 114 H 125/84 07/17/24 08:16 84 16 07/17/24 07:56 36.5 C 85 18 145/90 H 07/17/24 03:11 36.4 C L 94 H 20 143/87 H BP Pulse Ox O2 Del Method O2 Flow Rate 07/17/24 11:34 Nasal Cannula 2 07/17/24 11:30 98 Nasal Cannula 2 07/17/24 10:41 115/77 95 Nasal Cannula 2 07/17/24 10:40 07/17/24 10:28 112/70 94 Nasal Cannula 2 07/17/24 10:22 07/17/24 10:17 114/67 96 Nasal Cannula 2 07/17/24 10:10 96/64 L 07/17/24 09:58 95 Nasal Cannula 2 07/17/24 08:16 97 Nasal Cannula 2 07/17/24 07:56 99 Nasal Cannula 2 07/17/24 03:11 99 Room Air all noted and reviewed including below
--- NOTE | 2024-07-17 13:35 | Electrocardiogram Report ---
Test Reason : Blood Pressure : */* mmHG Vent. Rate : 106 BPM Atrial Rate : * BPM P-R Int : * ms QRS Dur : 72 ms QT Int : 368 ms P-R-T Axes : * 76 253 degrees QTcB Int : 488 ms Atrial fibrillation with rapid ventricular response Prolonged QT Abnormal ECG When compared with ECG of 14-Jul-2024 06:26, Atrial fibrillation has replaced Sinus rhythm Vent. rate has increased by 49 bpm Confirmed by Boston Salinas ([id number]) on 07/17/2024 1:35:23 PM Referred By: REFERRED SELF Confirmed By: Boston Salinas
[2024-07-17] MEDS: HEPARIN 25000 UNIT/500 ML D5W 25,000 UNITS/500 ML BAG IV SCH (20:37)
[2024-07-17] MEDS: cephALEXin 500 MG CAP PO SCH (20:48)
[2024-07-17] MEDS: METOPROLOL SUCC 25MG EXT REL TAB PO SCH (20:48)
[2024-07-18 02:52] LABS: Basophils # (auto) 0.02 K/uL (0.00-0.20); Basophils % (auto) 0.1 %; Eosinophils # (auto) 0.21 K/uL (0.00-0.50); Eosinophils % (auto) 1.4 %; Hematocrit (blood only) 28.4 % (37.0-47.0); Hemoglobin 8.8 g/dl (12.0-16.0); Immature Granulocytes % (auto) 2.8 %; Lymphocytes # (auto) 3.51 K/uL (1.20-3.40); Lymphocytes % (auto) 24.2 %; Mean Corpuscular Hemoglobin 28.7 pg (25.0-34.0); Mean Corpuscular Volume 92.5 fL (80.0-100.0); Mean Platelet Volume 8.6 fL (9.4-12.4); Monocytes % (auto) 6.9 %; Neutrophils # (auto) 9.37 K/uL (1.40-6.50); Neutrophils % (auto) 64.6 %; Nucleated RBC # (auto) 0.06 K/uL (0.00-0.12); Nucleated RBC % (auto) 0.4 %; Platelet Count 517 K/uL (130-400); RDW Coefficient of Variation 15.9 % (11.5-14.5); RDW Standard Deviation 52.8 fL (36.4-46.3); Red Blood Count 3.07 M/uL (4.20-5.40); White Blood Count 14.51 K/ul (4.8-10.8)
[2024-07-18 03:22] LABS: ANTI-Xa, UFH(UnfractionatedHep 1.46 IU/ml (0.3-0.7)
[2024-07-18 04:22] LABS: ANTI-Xa, UFH(UnfractionatedHep 1.27 IU/ml (0.3-0.7)
[2024-07-18 06:30] LABS: ANTI-Xa, UFH(UnfractionatedHep 0.97 IU/ml (0.3-0.7)
[2024-07-18 07:33] LABS: ANTI-Xa, UFH(UnfractionatedHep 0.92 IU/ml (0.3-0.7)
[2024-07-18 09:20] LABS: ANTI-Xa, UFH(UnfractionatedHep 0.86 IU/ml (0.3-0.7)
[2024-07-18 10:17] LABS: BUN Creatinine Ratio 29.7 (10-20); Calcium 8.7 mg/dl (8.6-10.3); Potassium 4.3 mmol/L (3.5-5.1)
--- NOTE | 2024-07-18 10:54 | Electrocardiogram Report ---
Test Reason : Blood Pressure : */* mmHG Vent. Rate : 109 BPM Atrial Rate : 329 BPM P-R Int : * ms QRS Dur : 76 ms QT Int : 376 ms P-R-T Axes : 84 76 256 degrees QTcB Int : 506 ms Atrial fibrillation with rapid ventricular response Prolonged QT Abnormal ECG When compared with ECG of 14-Jul-2024 06:26, Atrial fibrillation has replaced Sinus rhythm Vent. rate has increased by 52 bpm Confirmed by Boston Salinas ([id number]) on 07/18/2024 10:54:44 AM Referred By: REFERRED SELF Confirmed By: Boston Salinas
--- NOTE | 2024-07-18 10:55 | Electrocardiogram Report ---
Test Reason : Blood Pressure : */* mmHG Vent. Rate : 86 BPM Atrial Rate : 319 BPM P-R Int : * ms QRS Dur : 70 ms QT Int : 398 ms P-R-T Axes : * 77 244 degrees QTcB Int : 476 ms Atrial fibrillation Abnormal ECG When compared with ECG of 17-Jul-2024 09:45, No significant change was found Confirmed by Boston Salinas ([id number]) on 07/18/2024 10:55:13 AM Referred By: REFERRED SELF Confirmed By: Boston Salinas
--- NOTE | 2024-07-18 11:21 | Cardiology Progress Note ---
Date of Service July 18, 2024 Assessment & Plan (1) Chest pain: (2) Atrial fibrillation with RVR: (3) SOB (shortness of breath): (4) COPD (chronic obstructive pulmonary disease): (5) Chronic anemia: Plan 74 year old female with history of paroxysmal atrial fibrillation, was admitted with worsening shortness of breath and afib with RVR. Also treated for COPD exacerbation in setting of chronic respiratory failure. Converted to NSR. Noted to have abnormal EKG with diffuse T wave abnormality on admission. Echo with preserved EF, no WMA. Today, was in afib/flutter with RVR, had acute chest pain, that was improved with sublingual nitro. - troponin negative x1 - repeat limited echo with normal LVEF, no definitive WMA, possible HCM - T wave inversions may be due to HCM, no significant change compared to previous EKGs - chest pain may be due to tachycardia with HCM, recommend rate control - increase metoprolol succinate to 37.5 mg twice daily - continue Eliquis, furosemide, atorvastatin, losartan, aspirin - continue to monitor on telemetry - outpatient cardiology follow up, can consider cardiac MRI as outpatient 07/18/2024 1. Atrial fibrillation/flutter with rapid ventricular response: Rates improved since increasing metoprolol succinate 2. COPD exacerbation with mixed respiratory failure: Clinically improved 3. Abnormal EKG possible apical hypertrophic cardiomyopathy: No signs of acute coronary syndrome by echocardiogram enzymes or cardiac symptoms Plan: Increase metoprolol succinate to 50 mg twice per day to be used on discharge in place of carvedilol Reduce losartan to 50 mg/day Resume Eliquis once bleeding risks evaluated I spent a total of 40 minutes on the date of service in preparation, delivery, and documentation of the care provided to this patient excluding any time spent in the performance of separately billed services. Admission and Anticipated Discharge Date Admission Date: July 12, 2024 Subjective Patient seen and examined, chart, medications, telemetry reviewed. No cardiac complaints this morning notes respiratory status has returned to baseline. No chest pains, tachypalpitations or dizziness. Stools did return Hemoccult positive with GI evaluation pending Review of Systems Review of Systems: All systems reviewed & are unremarkable except as noted in Subjective Physical Exam Constitutional: + ill appearing and + thin; no acute dis tress Neck: trachea midline, no thyromegaly Respiratory: + tachypneic Auscultation: + diminish ed lung sounds; no soft crab shedder ckles and no rales Cardiovascular: Rate/Rhythm: regular rate, regular rhythm and + irregularly irregular Heart Sounds: normal S1 and normal S2; no murmur Vessels: no JVD Extremities: no edema Gastrointestinal (Abdomen): normal bowel sounds, soft, nontender, no hepatosplenomegaly Skin: no rashes, warm and dry Neurologic: PERRL, EOMI, accommodation nl, no face palsy, no dysarthria Psychiatric: A+Ox3, euthymic affect Results & Data Vital Signs (Past 12 Hours) Vital Signs Temp Pulse Resp BP Pulse Ox O2 Del Method O2 Flow Rate 07/18/24 11:04 36.7 C 87 18 100/65 95 Nasal Cannula 2 07/18/24 09:00 Nasal Cannula 07/18/24 07:29 36.9 C 74 18 122/76 99 Nasal Cannula 2 07/18/24 03:28 36.8 C 91 H 20 115/81 96 Nasal Cannula (1) Chest pain Chest pain type: unspecified Qualified Code(s): R07.9 - Chest pain, unspecified (4) COPD (chronic obstructive pulmonary disease) COPD type: COPD with acute exacerbation Qualified Code(s): J44.1 - Chronic obstructive pulmonary disease with (acute) exacerbation
[2024-07-18 11:37] LABS: ANTI-Xa, UFH(UnfractionatedHep 0.77 IU/ml (0.3-0.7)
--- NOTE | 2024-07-18 11:48 | Gastrointestinal Consultation ---
Date of Consultation July 18, 2024 Assessment & Plan (1) Anemia: (2) Heme + stool: Plan Patient had stools that tested positive for blood. She notes that stools are darker and that she moves her bowels once every 4-5 days which is her baseline. It does not sound like she has an active GI bleed at this time. she does have a history of eliquis use with last dose being 4/6 in the morning. - continue with protonix 40mg once daily. - follow hgb/hct and transfuse as needed. - she is agreeable to having an EGD to further evaluate her anemia, heme positive stools in the setting of darker stools. will discuss timing with Dr. Orr. Supervising Physician Co-Signing Physician Notes I saw and examined this patient with our nurse practitioner and agree with her assessment and plan. Patient with chronic anemia low iron despite normal MCV with Hemoccult positive stool. No significant GI symptoms. Discussed proceeding with endoscopy and colonoscopy to rule out any significant pathology. However her cardiopulmonary status needs to be optimized. Please let us know when she is cleared medically for the procedures. History of Present Illness Reason for Consultation: Iron deficiency anemia +IFOT, possible GIB Requesting Physician: Rogers Burnham MD Attending Physician: Rogers Burnham MD History of Present Illness Patient is a 74 year old female with past medical history significant for chronic respiratory failure with hypoxia on 2 to 3 L oxygen at home, dyslipidemia, hypothyroidism, chronic nonspecific lung disease, COPD, hypertension, CAD status post stent, atrial fibrillation, tobacco use disorder, general anxiety disorder, generalized osteoarthritis, migraines, ambulatory dysfunction who presented to the ED on 07/11 due to shortness of breath and was found to also be in rapid A-fib. Patient was recently in the hospital for UTI, abnormal EKG, abdominal discomfort and shortness of breath but signed out AMA. During her stay, her stools tested heme positive on 07/17. She reports that she moves her bowels once every 4-5 days which is her baseline. she tells me stools can be a dark brown in color, but never black. no brbpr. she does use eliquis with her last dose being 4/6 in the AM. she has never had an EGD. Last colonoscopy was done years ago at [facility] per patient and she reports this was unremarkable. rest of GI ros are unremarkable. 07/11/24 hgb 10.3 07/17/24 hgb 9. Allergies Allergy/AdvReac Type Severity Reaction Status Date / Time bee venom protein (honey bee) Allergy Severe SWELLING Verified 01/30/24 16:12 SEVERE doxycycline Allergy Intermediate Vomiting Verified 01/30/24 16:12 Home Medications Medication Instructions Recorded Confirmed Type multivitamin 1 tab PO DAILY #0 tabs 02/07/14 07/11/24 History omega 5-azs-mud-fish oil 1,000 mg 1 cap PO DAILY #0 caps 04/22/17 07/11/24 History (120 mg-180 mg) capsule (Fish Oil) magnesium oxide 400 mg PO BID #0 tabs 06/01/17 07/11/24 History apixaban 5 mg tablet (Eliquis) 5 mg PO BID 12/06/23 07/11/24 History atorvastatin 40 mg tablet 40 mg PO QAM 12/06/23 07/11/24 History citalopram 40 mg tablet 40 mg PO QAM 12/06/23 07/11/24 History clopidogrel 75 mg tablet 75 mg PO QAM 12/06/23 07/11/24 History fluticasone propionate 115 2 puff inhalation AMHS 12/06/23 07/11/24 History mcg-salmeterol 21 mcg/actuation HFA inhaler gabapentin 300 mg capsule 300 mg PO BID 12/06/23 07/11/24 History levothyroxine 25 mcg tablet 25 mcg PO DAILYBB 12/06/23 07/11/24 History oxybutynin chloride 5 mg 5 mg PO QAM 12/06/23 07/11/24 History tablet,extended release 24 hr potassium chloride 10 mEq 10 meq PO AMHS 12/06/23 07/11/24 History tablet,extended release(part/cryst) (Klor-Con M) nitroglycerin 0.4 mg sublingual 0.4 mg sublingual Q5M PRN chest 12/09/23 07/11/24 Rx tablet (Nitrostat) pain #30 tabs umeclidinium 62.5 mcg/actuation 1 inh inhalation DAILY #30 ea 12/14/23 07/11/24 Rx blister powder for inhalation (Incruse Ellipta) ipratropium 0.5 mg-albuterol 3 mg 3 ml NEB QIDR PRN shortness of 12/28/23 07/11/24 Rx (2.5 mg base)/3 mL nebulization breath #90 mL soln albuterol sulfate 90 mcg/actuation 2 puff inhalation Q4 PRN WHEEZING 01/30/24 07/11/24 History aerosol inhaler OR COUGH pantoprazole 40 mg tablet,delayed 40 mg PO QAM 01/30/24 07/11/24 History release (Protonix) tiotropium bromide 18 mcg capsule 1 cap inhalation QAM 03/02/24 07/11/24 History with inhalation device alendronate 70 mg tablet 70 mg PO WK 03/15/24 07/11/24 History cholecalciferol (vitamin D3) 50 50 mcg PO DAILY 03/24/24 07/11/24 History mcg (2,000 unit) tablet (Vitamin D3) furosemide 40 mg tablet 20 mg PO QAM 03/24/24 07/11/24 History carvedilol 6.25 mg tablet 6.25 mg PO BID #60 tabs 04/01/24 07/11/24 Rx losartan 50 mg tablet 100 mg (2 x 50 mg) PO QAM #30 tabs 04/01/24 07/11/24 Rx oxycodone 5 mg tablet 5 mg PO Q4H PRN pain #15 tabs 04/01/24 07/11/24 Rx amoxicillin 500 mg-potassium 1 tab PO BID 7 days #14 tabs 07/09/24 07/11/24 Rx clavulanate 125 mg tablet (Augmentin) phenazopyridine 200 mg tablet 200 mg PO TID PRN pain #30 tabs 07/09/24 07/11/24 Rx (Pyridium) Patient History Medical History Acute metabolic encephalopathy Myocardial infarction due to demand ischemia Suspected urinary tract infection Severe sepsis with acute organ dysfunction Sepsis Epigastric abdominal tenderness Intravascular volume depletion Non-ST elevation AL (NSTEMI) Acute dyspnea Generalized weakness Elevated troponin level Absent pedal pulses Macular degeneration Asthma Tobacco use disorder Coronary atherosclerosis of [place] coronary vessel Benign hypertension Atrial fibrillation Diabetes Surgical History H/O heart surgery History of cholecystectomy Hx of tubal ligation Social History Smoking Status: Current every day smoker Tobacco Type: Cigarettes Cigarettes Per Day: 5; Second Hand Exposure: No; Do You Dip or Chew Tobacco: No; Hx Alcohol Use: No Hx Substance Use: No Preferred Language: Slovak Communication Ability: Effective Human Factors Engineer Required: No Beliefs That Will Affect Care: None Current Living Situation: Family Current Living Situation Comment: with daughter Feels Safe at Home: Yes Assistive Devices: Cane, Oxygen - Continuous, Walker and Wheelchair Review of Systems Review of Systems: All systems reviewed & are unremarkable except as noted in HPI & below Physical Exam Constitutional: WD/WN, vitals as above Respiratory: normal respiratory effort, lungs clear to auscultation Cardiovascular: Rate/Rhythm: regular rate and regular rhythm Gastrointestinal (Abdomen): normal bowel sounds, soft, nontender, no hepatosplenomegaly Psychiatric: Orientation: alert and oriented x 3 Affect: euthymic affect Results & Data Vital Signs (Past 12 Hours) Vital Signs Temp Pulse Resp BP Pulse Ox O2 Del Method O2 Flow Rate 07/18/24 11:04 98.1 F 87 18 100/65 95 Nasal Cannula 2 07/18/24 09:00 Nasal Cannula 07/18/24 07:29 98.4 F 74 18 122/76 99 Nasal Cannula 2 07/18/24 03:28 98.2 F 91 H 20 115/81 96 Nasal Cannula Laboratory Results Laboratory Results - last 48 hr 07/17/24 07/17/24 07/17/24 07:56 08:55 10:46 WBC 15.01 H RBC 3.23 L Hgb 9.0 L Hct 30.0 L MCV 92.9 MCH 27.9 MCHC 30.0 L RDW Std Deviation 52.6 H RDW Coeff of Chet 15.5 H Plt Count 536 H MPV 8.9 L Immature Gran % (Auto) 2.4 Neut % (Auto) 71.3 Lymph % (Auto) 20.0 Fountain % (Auto) 5.9 Eos % (Auto) 0.2 Baso % (Auto) 0.2 Neut # (Auto) 10.71 H Lymph # (Auto) 3.00 Fountain # (Auto) 0.88 H Eos # (Auto) 0.03 Baso # (Auto) 0.03 Immature Gran # (Auto) 0.36 H Absolute Nucleated RBC 0.04 Nucleated RBC % (auto) 0.3 Heparin Anti-Xa, Unfract Sodium 136 Potassium 4.1 Chloride 95 L Carbon Dioxide 38 H Anion Gap 3 BUN 22 Creatinine 0.55 L Est Cr Clr Drug Dosing 65.9 eGFR 95.53 BUN/Creatinine Ratio 40.0 H Glucose 101 H Calcium 8.7 Troponin I High Sens 6.6 5.7 Stool Occult Bld Scrn Positive A 07/17/24 07/18/24 07/18/24 14:11 02:33 03:37 WBC 14.51 H RBC 3.07 L Hgb 8.8 L Hct 28.4 L MCV 92.5 MCH 28.7 MCHC 31.0 L RDW Std Deviation 52.8 H RDW Coeff of Chet 15.9 H Plt Count 517 H MPV 8.6 L Immature Gran % (Auto) 2.8 Neut % (Auto) 64.6 Lymph % (Auto) 24.2 Fountain % (Auto) 6.9 Eos % (Auto) 1.4 Baso % (Auto) 0.1 Neut # (Auto) 9.37 H Lymph # (Auto) 3.51 H Fountain # (Auto) 1.00 H Eos # (Auto) 0.21 Baso # (Auto) 0.02 Immature Gran # (Auto) 0.40 H Absolute Nucleated RBC 0.06 Nucleated RBC % (auto) 0.4 Heparin Anti-Xa, Unfract 1.46 H* 1.27 H* Sodium Potassium Chloride Carbon Dioxide Anion Gap BUN Creatinine Est Cr Clr Drug Dosing eGFR BUN/Creatinine Ratio Glucose Calcium Troponin I High Sens 4.7 Stool Occult Bld Scrn 07/18/24 07/18/24 07/18/24 05:23 05:28 06:45 WBC RBC Hgb Hct MCV MCH MCHC RDW Std Deviation RDW Coeff of Chet Plt Count MPV Immature Gran % (Auto) Neut % (Auto) Lymph % (Auto) Fountain % (Auto) Eos % (Auto) Baso % (Auto) Neut # (Auto) Lymph # (Auto) Fountain # (Auto) Eos # (Auto) Baso # (Auto) Immature Gran # (Auto) Absolute Nucleated RBC Nucleated RBC % (auto) Heparin Anti-Xa, Unfract 0.97 H* 0.92 H* Sodium 138 Potassium 4.3 Chloride 92 L Carbon Dioxide 45 H* Anion Gap 1 L BUN 22 Creatinine 0.74 Est Cr Clr Drug Dosing 48.0 eGFR 84.32 BUN/Creatinine Ratio 29.7 H Glucose 77 Calcium 8.7 Troponin I High Sens Stool Occult Bld Scrn 07/18/24 07/18/24 07/18/24 08:31 10:52 12:14 WBC RBC Hgb Hct MCV MCH MCHC RDW Std Deviation RDW Coeff of Chet Plt Count MPV Immature Gran % (Auto) Neut % (Auto) Lymph % (Auto) Fountain % (Auto) Eos % (Auto) Baso % (Auto) Neut # (Auto) Lymph # (Auto) Fountain # (Auto) Eos # (Auto) Baso # (Auto) Immature Gran # (Auto) Absolute Nucleated RBC Nucleated RBC % (auto) Heparin Anti-Xa, Unfract 0.86 H* 0.77 H* 0.87 H* Sodium Potassium Chloride Carbon Dioxide Anion Gap BUN Creatinine Est Cr Clr Drug Dosing eGFR BUN/Creatinine Ratio Glucose Calcium Troponin I High Sens Stool Occult Bld Scrn 07/18/24 14:28 WBC RBC Hgb Hct MCV MCH MCHC RDW Std Deviation RDW Coeff of Chet Plt Count MPV Immature Gran % (Auto) Neut % (Auto) Lymph % (Auto) Fountain % (Auto) Eos % (Auto) Baso % (Auto) Neut # (Auto) Lymph # (Auto) Fountain # (Auto) Eos # (Auto) Baso # (Auto) Immature Gran # (Auto) Absolute Nucleated RBC Nucleated RBC % (auto) Heparin Anti-Xa, Unfract 0.78 H* Sodium Potassium Chloride Carbon Dioxide Anion Gap BUN Creatinine Est Cr Clr Drug Dosing eGFR BUN/Creatinine Ratio Glucose Calcium Troponin I High Sens Stool Occult Bld Scrn Coding Level of Care Code 26029 INT INP/OBS CARE 2/55MIN Diagnoses Anemia D64.9 Heme + stool R19.5
[2024-07-18 13:05] LABS: ANTI-Xa, UFH(UnfractionatedHep 0.87 IU/ml (0.3-0.7)
[2024-07-18] MEDS: Heparin IV Adult Wt-Based Low-Dose *NO* INITIAL Bolus Protocol IV ONE (14:14)
[2024-07-18 16:00] LABS: ANTI-Xa, UFH(UnfractionatedHep 0.78 IU/ml (0.3-0.7)
--- NOTE | 2024-07-18 17:10 | Hospitalist Progress Note ---
Date of Service July 18, 2024 Assessment & Plan (1) SOB (shortness of breath): Plan: 74-year-old female with past medical history significant for chronic respiratory failure with hypoxia on 2 to 3 L oxygen at home, dyslipidemia, hypothyroidism, chronic nonspecific lung disease, COPD, hypertension, CAD status post stent, atrial fibrillation, tobacco use disorder, general anxiety disorder, generalized osteoarthritis, migraines, ambulatory dysfunction who lives at home with her daughter comes because of shortness of breath and found to also be in rapid A- fib. Patient was recently in the hospital for UTI, abnormal EKG, abdominal discomfort and shortness of breath but signed out AMA. Today she was feeling very short of breath. She gave herself breathing treatment and en route she received 2 DuoNeb's. In the ER she was in rapid A-fib with rate of 164 and received couple doses of IV Cardizem. Currently heart rate is under control. Currently resting comfortably. Complains of mild headache. There is a bruise on the right eyelid and brow region and she says she rubbed the eye and denies any falls. No blurred vision. No earache. No runny nose. No sore throat. Has cough. Denies chest pain. Denies nausea. Has abdominal discomfort and poor appetite. Complains of loss of weight. Having diarrhea for couple of weeks. Stools are dark in color. Seems having some burning micturition. Hemodynamics are okay currently. Chest pain New septalT wave depressions Troponin x 1 negative Seems to have resolved after 2 doses of nitro Lopressor IV also given Already on Eliquis, aspirin Cardiology on board Shortness of breath COPD exacerbation Chronic respiratory failure with hypoxia on 2-3 l oxygen at home Chest x-ray no acute findings Respiratory BioFire negative Will do Xopenex nebs [id number] and as needed IV Solu-Medrol 40 mg 3 times daily Continue home inhalers Close monitor 4/2 back to baseline 2 L NC transitioned from Solumedrol to Prednisone 40mg po daily x 3 more day 4/3 stable continue Prednusone 40mg daily x 1 more day 4/5 Stable At baseline O2 2 L DC prednisone 4/7 Respiratory stable Off prednisone Anemia Iron Deficiency - denies melena/hematochezia - check Vit B12 and Folic acid levels - stool fecal occult ordered - Venofer IV ordered - continue Protonix - monitor closely 4/5 Hg 7.6, 8.7, 8.6 Denies melena hematochezia FOBT pending Continue to monitor closely in light of Eliquis use Continue Protonix Status post IV iron Will need oral ferrous sulfate Will need close monitoring while on Eliquis 07/17 Hemoglobin remains around 8-9 FOBT positive GI consulted as patient is on Eliquis plus aspirin 4/7 Hg stable per GI, will proceed with endoscopy once cleared by cardiology Will discuss with cardiology service Rapid A-fib History of A-fib Received couple of doses of IV Cardizem in the ER Continue home Coreg. Question of recently reduced Coreg dose to 3.125 mg IV Lopressor as needed On Eliquis Few days ago had echo Telemetry cardiology consult for further recommendations 4/2 HR controlled on Metoprolol XL 25mg BID on usual Eliquis appreciate Cardiology service evaluation / stable / Mild tachycardia today Lopressor IV given Awaiting further recommendations per cardiology service 07/18 metoprolol increased for better heart rate control Losartan decreased Continue to monitor closely Mild elevation of troponin Mostly demand ischemia trop 19--> 20--> 15 UTI Cultures growing Klebsiella and Staphylococcus epidermidis last admit completed Augmentin day # [address] abd/pelvis: Abdominal aortic aneurysm measuring approximately 3.3 cm in diameter. asymptomatic will need surveillance Ultrasound continue Plavix, Eliquis, Atorvastatin Diarrhea resolved Left elbow wound Since surgery of left distal humerus fracture in March 2024 Following with orthopedics Recent cultures normal hans Currently on Augmentin Wound care consult 4/ Elbow XR ordered will consult Orth 07/14 Elbow xr: Status post ORIF supracondylar fracture of the distal left humerus with satisfactory positioning and alignment. No evidence of aggressive bone lesion or periosteal reaction. No elbow joint malalignment. awaiting Ortho eval / per Ortho, Patient may have contaminated hardware in the left elbow Patient prefers to follow-up with [facility] She will need suppressive cephalexin or cefpodoxime per Ortho service Appreciate recommendations by Dr. Lua 07/17 placed on suppressive therapy of Cephalexin BID History of CAD s/p stents On statin, Coreg, Plavix Hypertension On Coreg, losartan and Lasix with potassium supplement Will monitor Hypothyroidism On Synthyroid GERD On Protonix Hyperlipidemia On statin Tobacco use Needs counseling Generalized anxiety disorder On citalopram and trazodone DVT prophylaxis On Eliquis Disposition pending Admission and Anticipated Discharge Date Admission Date: July 12, 2024 Subjective seen resting in bed, comfortable states she feels much better compared to yesterday No chest pain No shortness of breath No abdominal pain, nausea no other new symptoms no melena hematochezia Review of Systems Review of Systems: all noted and negative except for above Physical Exam Physical Exam: General- oriented x 3, not in distress, speaks in sentences with no effort or accessory muscle use Eyes- anicteric Neck- no JVD Lungs- clear breath sounds bilaterally, no rales/wheezes Heart- normal rate, irregularly irregular rhythm; no murmurs Abdomen- normal bowel sounds, nondistended, soft, nontender Extremities- no pretibial edema, no calf tenderness Neuro- alert, oriented x 3; no gross focal neurologic deficits Skin- warm & dry Results & Data Results & Data Vital Signs (Past 12 Hours) Vital Signs Temp Pulse Resp BP Pulse Ox O2 Del Method O2 Flow Rate 07/18/24 16:03 36.8 C 71 18 100/65 98 Nasal Cannula 2 07/18/24 11:04 36.7 C 87 18 100/65 95 Nasal Cannula 2 07/18/24 09:00 Nasal Cannula 07/18/24 07:29 36.9 C 74 18 122/76 99 Nasal Cannula 2
[2024-07-18 18:05] LABS: ANTI-Xa, UFH(UnfractionatedHep 0.72 IU/ml (0.3-0.7)
[2024-07-18 20:16] LABS: ANTI-Xa, UFH(UnfractionatedHep 0.71 IU/ml (0.3-0.7)
[2024-07-18] MEDS: METOPROLOL SUCC 50MG EXT REL TAB PO SCH (20:43)
[2024-07-18 22:04] LABS: ANTI-Xa, UFH(UnfractionatedHep 0.72 IU/ml (0.3-0.7)
[2024-07-18 23:27] LABS: ANTI-Xa, UFH(UnfractionatedHep 0.69 IU/ml (0.3-0.7)
[2024-07-19 07:04] LABS: BUN Creatinine Ratio 21.5 (10-20); Calcium 8.6 mg/dl (8.6-10.3); Creatinine Clr Calc Pharmacy 72.2 ml/min; Potassium 4.1 mmol/L (3.5-5.1)
[2024-07-19 07:13] LABS: ANTI-Xa, UFH(UnfractionatedHep 0.58 IU/ml (0.3-0.7)
[2024-07-19] MEDS: LOSARTAN POTASSIUM 50 MG TAB PO SCH (08:37)
--- NOTE | 2024-07-19 11:58 | Cardiology Progress Note ---
Date of Service July 19, 2024 Assessment & Plan (1) Chest pain: (2) Atrial fibrillation with RVR: (3) SOB (shortness of breath): (4) COPD (chronic obstructive pulmonary disease): (5) Chronic anemia: Plan Admission with COPD exacerbation, chronic respiratory failure, ongoing tobacco abuse. As per Hospitalist. Tobacco cessation mandated. Paroxysmal atrial fibrillation/flutter. Patient is a poor candidate for amiodarone/antiarrhythmic therapy. Continue rate control with metoprolol succinate as presently prescribed. Resume apixaban (Eliquis) once bleeding risk evaluated No overt cardiac contraindication to endoscopy, expecting recurrence of PAF. Continue metoprolol without interruption. Abnormal EKG, diffuse T wave abnormality on admission. 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 LVEF 55 to 60%. No wall motion abnormalities. High sensitivity troponin negative this admission. Recommend medical management. Admission and Anticipated Discharge Date Admission Date: July 12, 2024 Supervising Physician Co-Signing Physician Notes Patient seen and personally examined, chart and medication reviewed. Assessment and plan by advanced provider as above. Continued conservative medical therapy. Telemetry reveals paroxysmal atrial flutter with rate control patient asymptomatic. Respiratory status improved after treatment of underlying COPD exacerbation Subjective Patient seen and examined. Chart, medications, telemetry reviewed. Feeling better overall Has not felt palpitations since last evening Telemetry: Initially with sinus/sinus bradycardia down to 50 bpm, lapsing into atrial flutter on July 15, 2024 at 9:02 AM with rates in the 80s to low 100s. Paroxysmal atrial flutter/fibrillation noted, currently in sinus rhythm at 76 bpm. No significant conversion pause. Physical Exam Physical Exam: General: No acute distress HENT: Normocephalic. Atraumatic. Eyes: Right-sided periorbital ecchymosis. Conjunctiva pink, sclera pale Neck: No JVD. Heart: Regular at 70 bpm. No murmur. No rub. Lungs: Diminished. Decreased. Dry right midlung crackles, left lower lobe rales Abdomen: +BS. Soft. Nontender. No masses or organomegaly. Extremities: No significant edema Limited neurological examination is without focal deficits. Pulses: Posterior tibial=1/4. Results & Data Vital Signs (Past 12 Hours) Vital Signs Temp Pulse Resp BP Pulse Ox O2 Del Method O2 Flow Rate 07/19/24 11:32 36.8 C 119 H 18 110/74 96 Nasal Cannula 2 07/19/24 09:00 Nasal Cannula 2 07/19/24 07:28 37.1 C 91 H 18 106/68 Nasal Cannula 2 07/19/24 02:58 37.0 C 87 18 97/63 L 97 Nasal Cannula 2 Laboratory Results Comprehensive Metabolic Panel 07/18/24 07/19/24 Range/Units 05:28 06:05 Sodium 138 137 (136-145) mmol/L Potassium 4.3 4.1 (3.5-5.1) mmol/L Chloride 92 L 91 L (98-107) mmol/L Carbon Dioxide 45 H* 42 H* (21-32) mmol/L BUN 22 17 (6-23) mg/dl Creatinine 0.74 0.79 (0.6-1.2) mg/dl Glucose 77 86 (70-99(Fasting)) mg/dl Calcium 8.7 8.6 (8.6-10.3) mg/dl Intake and Output 07/18/24 07/19/24 07/19/24 22:59 06:59 14:59 Intake Total 860 / 1310 450 / 1310 43.2 / 43.2 Output Total 2 / 2 Balance 858 / 1308 450 / 1308 43.2 / 43.2 Intake: IV 0 / 0 43.2 / 43.2 Heparin 78664 Unit/500 ml D5w 0 / 0 43.2 / 43.2 25,000 units In 500 ml @ 300 UNITS/HR 6 mls/hr IV .Q24H [facility] Rx#:[id number] Oral 860 / 1310 450 / 1310 Output: # Bowel Movements 2 / 2 Other: # Unmeasured Voids 5 1 Weight 100.3 kg Weight Measurement Method Built in [facility] (1) Chest pain Chest pain type: unspecified Qualified Code(s): R07.9 - Chest pain, unspecified (4) COPD (chronic obstructive pulmonary disease) COPD type: COPD with acute exacerbation Qualified Code(s): J44.1 - Chronic obstructive pulmonary disease with (acute) exacerbation
[2024-07-19] MEDS: LAVAGE SOLUTION 4000ML PO SCH (15:42)
--- NOTE | 2024-07-19 17:12 | Hospitalist Progress Note ---
Date of Service July 19, 2024 Assessment & Plan (1) SOB (shortness of breath): Plan: per previous hospitalist notes with addendum: 74-year-old female with past medical history significant for chronic respiratory failure with hypoxia on 2 to 3 L oxygen at home, dyslipidemia, hypothyroidism, chronic nonspecific lung disease, COPD, hypertension, CAD status post stent, atrial fibrillation, tobacco use disorder, general anxiety disorder, generalized osteoarthritis, migraines, ambulatory dysfunction who lives at home with her daughter comes because of shortness of breath and found to also be in rapid A- fib. Patient was recently in the hospital for UTI, abnormal EKG, abdominal discomfort and shortness of breath but signed out AMA. Today she was feeling very short of breath. She gave herself breathing treatment and en route she received 2 DuoNeb's. In the ER she was in rapid A-fib with rate of 164 and received couple doses of IV Cardizem. Currently heart rate is under control. Currently resting comfortably. Complains of mild headache. There is a bruise on the right eyelid and brow region and she says she rubbed the eye and denies any falls. No blurred vision. No earache. No runny nose. No sore throat. Has cough. Denies chest pain. Denies nausea. Has abdominal discomfort and poor appetite. Complains of loss of weight. Having diarrhea for couple of weeks. Stools are dark in color. Seems having some burning micturition. Hemod ynamics are okay currently. COPD exacerbation Chronic respiratory failure with hypoxia on 2-3 l oxygen at home Chest x-ray no acute findings Respiratory BioFire negative 4/8 completed course of steroids, nebs Respiratory stable back to baseline 2 L nasal cannula Anemia Iron Deficiency - denies melena/hematochezia - iron: 15 - check Vit B12 and Folic acid levels: normal - stool fecal occult ordered: positive - Venofer IV given - continue Protonix - monitor closely 4/8 Hg stable 7-8 no melena/ hematochezia observed so far continue Protonix Will need oral ferrous sulfate anticoagulation--> currently on heparin drip, plan to transition to Eliquis after Upper GI Endoscopy per GI, will proceed with endoscopy once cleared by cardiology--> no cardiac contraindication for Upper GI Endoscopy per Cardiology Rapid A-fib History of A-fib Received couple of doses of IV Cardizem in the ER Continue home Coreg. Question of recently reduced Coreg dose to 3.125 mg IV Lopressor as needed 07/19 per Cardiology: Patient is a poor candidate for amiodarone/antiarrhythmic therapy. Continue rate control with metoprolol succinate as presently prescribed. Resume apixaban (Eliquis) once bleeding risk evaluated (currently on heparin drip until Upper GI Endoscopy performed) -- Metoprolol increased, Losartan decreased Chest pain occurred over the weekend New septal T wave depressions Troponin x 1 negative Seems to have resolved after 2 doses of nitro Lopressor IV also given -- per Cardiology: Abnormal EKG, diffuse T wave abnormality on admission. 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 LVEF 55 to 60%. No wall motion abnormalities. High sensitivity troponin negative this admission. Recommend medical management. Mild elevation of troponin during admission Mostly demand ischemia trop 19--> 20--> 15 UTI Cultures growing Klebsiella and Staphylococcus epidermidis last admit completed Augmentin 7 day course while admitted no urinary symptoms Abdominal aortic aneurysm Ct abd/pelvis: Abdominal aortic aneurysm measuring approximately 3.3 cm in diameter. asymptomatic will need surveillance Ultrasound continue Plavix, Atorvastatin Diarrhea resolved Left elbow wound Since surgery of left distal humerus fracture in March 2024 Elbow xr: Status post ORIF supracondylar fracture of the distal left humerus with satisfactory positioning and alignment. No evidence of aggressive bone lesion or periosteal reaction. No elbow joint malalignment. awaiting Ortho eval 07/16 per Ortho, Patient may have contaminated hardware in the left elbow Patient prefers to follow-up with [facility] She will need suppressive cephalexin or cefpodoxime per Ortho service Appreciate recommendations by Dr. Lua placed on suppressive therapy of Cephalexin BID + probiotics will need to closely follow up with Ortho at [facility] History of CAD s/p stents On statin, Coreg, Plavix Hypertension On Metoprolol, losartan and Lasix with potassium supplement Hypothyroidism On Synthyroid GERD On Protonix Hyperlipidemia On statin Tobacco use Needs counseling Generalized anxiety disorder On citalopram and trazodone DVT prophylaxis on heparin drip Disposition PT/OT recommending Acute Rehab patient prefers to go home with home health inadvertently called patient's daughter Cindy over the phone re: patient's pronouncement of expiration, instead of another patient's family member notified by Kristel KNOX re: above, went to bedside immediately to talk to Cindy Explained to them what happened,and I offered my sincere, profuse apologies to her and to his grandson at the bedside I relayed to them that I take full responsibility of what has transpired updated on patient's improving medical condition overall, current plan of care and reassured them regarding her stable medical condition patient and son accepted my apologies Expressed to them to let us know if we can be of any assistance to them anytime Rogers Burnham MD Admission and Anticipated Discharge Date Admission Date: July 12, 2024 Subjective follow-up for COPD exacerbation, atrial fibrillation, etc. Seen resting in bed, comfortable, not in distress, on 2 L of O2 which is her baseline States she feels fine overall Denies chest pain, shortness of breath, palpitations, dizziness Denies cough No abdominal pain, nausea or vomiting No other new symptoms Review of Systems Review of Systems: all noted and negative except for above Physical Exam 2 Physical Exam: General- oriented x 3, not in distress, speaks in sentences with no effort or accessory muscle use Eyes- anicteric Neck- no JVD Lungs- clear breath sounds bilaterally, no crackles/wheezing Heart- normal rate, regular rhythm; no murmurs Abdomen- normal bowel sounds, nondistended, soft, nontender Extremities- no pretibial edema, no calf tenderness Neuro- alert, oriented x 3; no gross focal neurologic deficits Skin- warm & dry Results & Data Results & Data Vital Signs (Past 12 Hours) Vital Signs Temp Pulse Resp BP Pulse Ox O2 Del Method O2 Flow Rate 07/19/24 15:51 37.1 C 102 H 18 105/69 97 Room Air 07/19/24 13:23 97 07/19/24 11:32 36.8 C 119 H 18 110/74 96 Nasal Cannula 2 07/19/24 09:00 Nasal Cannula 2 07/19/24 07:28 37.1 C 91 H 18 106/68 Nasal Cannula 2 all noted and reviewed including below
--- NOTE | 2024-07-20 00:06 | Communication Note ---
Date of Service: July 20, 2024 Patient noted to be febrile and tachycardic as per RN. Strong smelling urine as per RN. Patient without unusual abdominal/flank pain as per RN. UA WBC esterase AP Sepsis Complicated UTI CS, Cefepime (Hold current cephalexin suppressive Rx for elbow hardware contamination while on cefepime)
[2024-07-20] MEDS: ACETAMINOPHEN 325 MG TAB PO STA (00:26)
[2024-07-20] MEDS: SODIUM CHLORIDE 0.9% 1,000 ML IV ONE (00:32)
[2024-07-20] MEDS: METOPROLOL TARTRATE 1 MG/ML VIAL IV STA (00:32)
[2024-07-20 01:36] LABS: Basophils # (auto) 0.01 K/uL (0.00-0.20); Basophils % (auto) 0.1 %; Eosinophils # (auto) 0.03 K/uL (0.00-0.50); Eosinophils % (auto) 0.2 %; Hematocrit (blood only) 26.3 % (37.0-47.0); Hemoglobin 8.3 g/dl (12.0-16.0); Immature Granulocytes # (auto) 0.17 K/uL (0.01-0.20); Immature Granulocytes % (auto) 1.2 %; Lymphocytes % (auto) 10.3 %; Mean Corpuscular Hemoglobin 28.4 pg (25.0-34.0); Mean Corpuscular Hgb Conc 31.6 g/dL (32.0-36.0); Mean Corpuscular Volume 90.1 fL (80.0-100.0); Mean Platelet Volume 8.8 fL (9.4-12.4); Monocytes # (auto) 1.24 K/uL (0.11-0.59); Monocytes % (auto) 9.1 %; Neutrophils # (auto) 10.77 K/uL (1.40-6.50); Neutrophils % (auto) 79.1 %; Platelet Count 430 K/uL (130-400); RDW Coefficient of Variation 16.9 % (11.5-14.5); RDW Standard Deviation 53.1 fL (36.4-46.3); Red Blood Count 2.92 M/uL (4.20-5.40); White Blood Count 13.62 K/ul (4.8-10.8)
[2024-07-20 01:37] LABS: Albumin Level 2.7 gm/dl (3.4-5.0); BUN Creatinine Ratio 18.4 (10-20); Bilirubin,Total 0.7 mg/dl (0.2-1.0); Calcium 8.3 mg/dl (8.6-10.3); Globulin 2.7 gm/dl (2.5-4.0); Magnesium 1.7 mg/dl (1.7-2.4); Potassium 4.1 mmol/L (3.5-5.1); Total Protein 5.4 gm/dl (6.0-8.3)
[2024-07-20 01:44] LABS: ANTI-Xa, UFH(UnfractionatedHep 0.58 IU/ml (0.3-0.7)
[2024-07-20] MEDS: MAGNESIUM SULFATE / D5W 1 GM/100 ML BAG IV SCH (04:16)
[2024-07-20 04:35] LABS: Appearance Urine Turbid (Clear); Bacteria Urine Automated 4+ (None Seen); Bilirubin Urine Negative (Negative); Blood Urine 1+ (Negative); Color Urine Yellow; Epithelial Cell Urine Auto 0-2 /hpf (0-2); Glucose Urine UA Negative (Negative); Ketones Urine Negative (Negative); Leukocyte Esterase Urine 3+ (Negative); Nitrite Urine Negative (Negative); Protein Urine 2+ (Negative); Specific Gravity Urine 1.013 (1.000-1.030); Urobilinogen Urine Negative (Negative); WBC Urine Automated >50 /hpf (0-5); pH Urine >= 9.0 (4.5-7.5)
[2024-07-20] MEDS: CEFEPIME 2000MG 2,000 MG/20 ML SYR IV SCH (06:04)
[2024-07-20] MEDS: MAGNESIUM OXIDE 400 MG TAB PO SCH (07:33)
--- NOTE | 2024-07-20 08:06 | Hospitalist Progress Note ---
Date of Service July 20, 2024 Assessment & Plan (1) SOB (shortness of breath): Plan: per previous hospitalist notes with addendum: 74-year-old female with past medical history significant for chronic respiratory failure with hypoxia on 2 to 3 L oxygen at home, dyslipidemia, hypothyroidism, chronic nonspecific lung disease, COPD, hypertension, CAD status post stent, atrial fibrillation, tobacco use disorder, general anxiety disorder, generalized osteoarthritis, migraines, ambulatory dysfunction who lives at home with her daughter comes because of shortness of breath and found to also be in rapid A- fib. Patient was recently in the hospital for UTI, abnormal EKG, abdominal discomfort and shortness of breath but signed out AMA. Today she was feeling very short of breath. She gave herself breathing treatment and en route she received 2 DuoNeb's. In the ER she was in rapid A-fib with rate of 164 and received couple doses of IV Cardizem. Currently heart rate is under control. Currently resting comfortably. Complains of mild headache. There is a bruise on the right eyelid and brow region and she says she rubbed the eye and denies any falls. No blurred vision. No earache. No runny nose. No sore throat. Has cough. Denies chest pain. Denies nausea. Has abdominal discomfort and poor appetite. Complains of loss of weight. Having diarrhea for couple of weeks. Stools are dark in color. Seems having some burning micturition. Hemodynamics are okay currently. COPD exacerbation Chronic respiratory failure with hypoxia on 2-3 l oxygen at home Chest x-ray no acute findings Respiratory BioFire negative 4/8 completed course of steroids, nebs Respiratory stable back to baseline 2 L nasal cannula Anemia Iron Deficiency - denies melena/hematochezia - iron: 15 - check Vit B12 and Folic acid levels: normal - stool fecal occult ordered: positive - Venofer IV given - continue Protonix - monitor closely 4/8 Hg stable 7-8 no melena/ hematochezia observed so far continue Protonix Will need oral ferrous sulfate anticoagulation--> currently on heparin drip, plan to transition to Eliquis after Upper GI Endoscopy per GI, will proceed with endoscopy once cleared by cardiology--> no cardiac contraindication for Upper GI Endoscopy per Cardiology Rapid A-fib History of A-fib Received couple of doses of IV Cardizem in the ER Continue home Coreg. Question of recently reduced Coreg dose to 3.125 mg IV Lopressor as needed 07/19 per Cardiology: Patient is a poor candidate for amiodarone/antiarrhythmic therapy. Continue rate control with metoprolol succinate as presently prescribed. Resume apixaban (Eliquis) once bleeding risk evaluated (currently on heparin drip until Upper GI Endoscopy performed) -- Metoprolol increased, Losartan decreased Chest pain occurred over the weekend New septal T wave depressions Troponin x 1 negative Seems to have resolved after 2 doses of nitro Lopressor IV also given -- per Cardiology: Abnormal EKG, diffuse T wave abnormality on admission. 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 LVEF 55 to 60%. No wall motion abnormalities. High sensitivity troponin negative this admission. Recommend medical management. Mild elevation of troponin during admission Mostly demand ischemia trop 19--> 20--> 15 UTI Cultures growing Klebsiella and Staphylococcus epidermidis last admit completed Augmentin 7 day course while admitted no urinary symptoms per previous provider Overnight (07/19/2024) pt tachycardic and temp 37.7C, UA repeated, concern for UTI, started cefepime follow Ucultx Abdominal aortic aneurysm Ct abd/pelvis: Abdominal aortic aneurysm measuring approximately 3.3 cm in diameter. asymptomatic will need surveillance Ultrasound continue Plavix, Atorvastatin Diarrhea resolved Left elbow wound Since surgery of left distal humerus fracture in March 2024 Elbow xr: Status post ORIF supracondylar fracture of the distal left humerus with satisfactory positioning and alignment. No evidence of aggressive bone lesion or periosteal reaction. No elbow joint malalignment. awaiting Ortho eval 07/16 per Ortho, Patient may have contaminated hardware in the left elbow Patient prefers to follow-up with [facility] She will need suppressive cephalexin or cefpodoxime per Ortho service Appreciate recommendations by Dr. Lua placed on suppressive therapy of Cephalexin BID + probiotics will need to closely follow up with Ortho at [facility] History of CAD s/p stents On statin, Coreg, Plavix Hypertension On Metoprolol, losartan and Lasix with potassium supplement Hypothyroidism On Synthyroid GERD On Protonix Hyperlipidemia On statin Tobacco use Needs counseling Generalized anxiety disorder On citalopram and trazodone DVT prophylaxis on heparin drip Disposition PT/OT recommending Acute Rehab patient prefers to go home with home health Admission and Anticipated Discharge Date Admission Date: July 12, 2024 Subjective Pt seen in follow-up for COPD exacerbation, atrial fibrillation, etc. Overnight concern for sepsis/ UTI, HR elevated , temp 37.7C Gas Technician obtained UA and started cefepime Currently pt is resting in bed, comfortable, not in distress, on 2 L of O2 which is her baseline States she feels fine overall Denies chest pain, shortness of breath, palpitations, dizziness Denies cough No abdominal pain, nausea or vomiting No other new symptoms discussed w/ RN at the bedside Review of Systems Review of Systems: All systems reviewed & are unremarkable except as noted in Subjective Physical Exam Physical Exam: General- oriented x 3, not in distress, speaks in sentences with no effort or accessory muscle use Eyes- anicteric Neck- no JVD Lungs- clear breath sounds bilaterally, no crackles/wheezing Heart- normal rate, regular rhythm; no murmurs Abdomen- normal bowel sounds, nondistended, soft, nontender Extremities- no pretibial edema, no calf tenderness Neuro- alert, oriented x 3; no gross focal neurologic deficits Skin- warm & dry Results & Data Results & Data Vital Signs (Past 12 Hours) Vital Signs Temp Pulse Pulse Resp BP BP Pulse Ox 07/20/24 07:11 36.3 C L 59 L 18 99/61 L 98 07/20/24 02:40 36.7 C 70 17 98/64 L 97 07/20/24 00:47 72 100/64 07/19/24 23:41 37.7 C H 107 H 18 124/78 95 07/19/24 21:00 O2 Del Method O2 Flow Rate 07/20/24 07:11 Nasal Cannula 2 07/20/24 02:40 Nasal Cannula 2 07/20/24 00:47 07/19/24 23:41 Nasal Cannula 2 07/19/24 21:00 Nasal Cannula 2 Laboratory Results 07/20/24 07/20/24 Range/Units 04:00 00:41 WBC 13.62 H (4.8-10.8) K/ul RBC 2.92 L (4.20-5.40) M/uL Hgb 8.3 L (12.0-16.0) g/dl Hct 26.3 L (37.0-47.0) % MCV 90.1 (80.0-100.0) fL MCH 28.4 (25.0-34.0) pg MCHC 31.6 L (32.0-36.0) g/dL RDW Std Deviation 53.1 H (36.4-46.3) fL RDW Coeff of Chet 16.9 H (11.5-14.5) % Plt Count 430 H (130-400) K/uL MPV 8.8 L (9.4-12.4) fL Immature Gran % (Auto) 1.2 % Neut % (Auto) 79.1 % Lymph % (Auto) 10.3 % Callahan % (Auto) 9.1 % Eos % (Auto) 0.2 % Baso % (Auto) 0.1 % Neut # (Auto) 10.77 H (1.40-6.50) K/uL Lymph # (Auto) 1.40 (1.20-3.40) K/uL Callahan # (Auto) 1.24 H (0.11-0.59) K/uL Eos # (Auto) 0.03 (0.00-0.50) K/uL Baso # (Auto) 0.01 (0.00-0.20) K/uL Immature Gran # (Auto) 0.17 (0.01-0.20) K/uL Heparin Anti-Xa, Unfract 0.58 (0.3-0.7) IU/ml Sodium 134 L (136-145) mmol/L Potassium 4.1 (3.5-5.1) mmol/L Chloride 91 L (98-107) mmol/L Carbon Dioxide 40 H (21-32) mmol/L Anion Gap 3 (3-11) BUN 14 (6-23) mg/dl Creatinine 0.76 (0.6-1.2) mg/dl Est Cr Clr Drug Dosing 75.0 ml/min eGFR 81.67 BUN/Creatinine Ratio 18.4 (10-20) Glucose 101 H (70-99(Fasting)) mg/dl Lactate 1.1 (0.4-2.0) mmol/L Calcium 8.3 L (8.6-10.3) mg/dl Magnesium 1.7 (1.7-2.4) mg/dl Total Bilirubin 0.7 (0.2-1.0) mg/dl AST 12 L (13-39) U/L ALT 11 (7-52) U/L Alkaline Phosphatase 57 (34-104) U/L Total Protein 5.4 L (6.0-8.3) gm/dl Albumin 2.7 L (3.4-5.0) gm/dl Globulin 2.7 (2.5-4.0) gm/dl Albumin/Globulin Ratio 1.0 (0.9-2) Procalcitonin 0.05 (0-0.5) ng/ml Urine Color Yellow Urine Appearance Turbid A (Clear) Urine pH >= 9.0 H (4.5-7.5) Ur Specific [place] 1.013 (1.000-1.030) Urine Protein 2+ H (Negative) Urine Glucose (UA) Negative (Negative) Urine Ketones Negative (Negative) Urine Blood 1+ H (Negative) Urine Nitrite Negative (Negative) Urine Bilirubin Negative (Negative) Urine Urobilinogen Negative (Negative) Ur Leukocyte Esterase 3+ H (Negative) Urine WBC (Auto) >50 H (0-5) /hpf Urine RBC (Auto) 3-5 H (0-2) /hpf U Hyaline Cast (Auto) 3-5 H (0-2) /lpf U Epithel Cells (Auto) 0-2 (0-2) /hpf Urine Bacteria (Auto) 4+ H (None Seen) Medications Administered Current Inpatient Medications Acetaminophen (Acetaminophen 325 Mg Tab) 650 mg PO Q4H PRN PRN Reason: Pain or Fever Stop: 08/11/24 03:15 Last Admin: 07/16/24 01:21 Dose: 650 mg Albuterol (Albuterol Hfa 8 Gm Inhaler) 2 puffs INH Q4 PRN PRN Reason: WHEEZING OR COUGH Stop: 08/11/24 03:15 Aspirin (Aspirin 81 Mg Ectab) 81 mg PO [facility] Stop: 08/13/24 08:59 Last Admin: 07/20/24 07:31 Dose: 81 mg Atorvastatin Calcium (Atorvastatin 40 Mg Tab) 40 mg PO [facility] Stop: 08/11/24 08:59 Last Admin: 07/20/24 07:34 Dose: 40 mg Citalopram Hydrobromide (Citalopram 40 Mg Tab) 40 mg PO [facility] Stop: 08/11/24 08:59 Last Admin: 07/20/24 07:33 Dose: 40 mg Fluticasone/Vilanterol (Fluticasone/Vilanterol 100/25mcg 14 Puffs/Inhaler) 1 puffs INH DAILY [facility] Stop: 08/11/24 08:59 Last Admin: 07/20/24 07:31 Dose: 1 puffs Furosemide (Furosemide 20 Mg Tab) 20 mg PO QAM [facility] Stop: 08/11/24 08:59 Last Admin: 07/20/24 07:33 Dose: 20 mg Gabapentin (Gabapentin 300 Mg Cap) 300 mg PO BID [facility] Stop: 08/11/24 08:59 Last Admin: 07/20/24 07:34 Dose: 300 mg Promethazine HCl (Phenergan) 6.25 mg in 50.25 mls @ 201 mls/hr IV Q6H PRN PRN Reason: Nausea And Vomiting Stop: 08/12/24 14:44 Last Infusion: 07/16/24 15:49 Dose: Infused Heparin Sodium/Dextrose (Heparin 20465 Unit/500 Ml D5w) 25,000 units in 500 mls @ 6 mls/hr IV .Q24H GELACIO; Protocol Stop: 08/16/24 20:29 Last Admin: 07/19/24 22:06 Dose: 300 units/hr, 6 mls/hr Sodium Chloride (Nss) 1,000 mls @ 60 mls/hr IV .[id number] ONE Stop: 07/20/24 16:46 Last Admin: 07/20/24 00:32 Dose: 60 mls/hr Cefepime HCl (Maxipime 2000mg) 2,000 mg in 20 mls @ 5 mls/min IV Q8H GELACIO; Protocol Stop: 07/30/24 05:59 Last Admin: 07/20/24 06:04 Dose: 5 mls/min Lactobacillus Acidophilus (Advanced Probiotic 625 Mg Capsule) 1,250 mg PO DAILY [facility] Stop: 08/15/24 17:59 Last Admin: 07/20/24 07:31 Dose: 1,250 mg Levalbuterol HCl (Levalbuterol Hcl 0.63 Mg/3 Ml Neb) 0.63 mg NEB Q4H PRN; Protocol PRN Reason: Shortness Of Breath Or Wheezing Stop: 08/11/24 03:15 Last Admin: 07/17/24 08:14 Dose: 0.63 mg Levalbuterol HCl (Levalbuterol Hcl 0.63 Mg/3 Ml Neb) 0.63 mg NEB QIDR PRN; Protocol PRN Reason: Shortness Of Breath Or Wheezing Stop: 08/11/24 06:59 Levothyroxine Sodium (Levothyroxine Sodium 25 Mcg Tablet) 25 mcg PO DAILYBB [facility] Stop: 08/11/24 06:29 Last Admin: 07/20/24 06:04 Dose: 25 mcg Losartan Potassium (Losartan Potassium 50 Mg Tab) 50 mg PO QAM [facility] Stop: 08/18/24 08:59 Last Admin: 07/19/24 08:37 Dose: 50 mg Magnesium Oxide (Magnesium Oxide 400 Mg Tab) 400 mg PO BID [facility] Stop: 08/20/24 08:59 Last Admin: 07/20/24 07:33 Dose: 400 mg Metoprolol Succinate (Metoprolol Succ 50mg Ext Rel Tab) 50 mg PO BID [facility] Stop: 08/17/24 20:59 Last Admin: 07/20/24 07:34 Dose: 50 mg Multivitamins (Multivitamin Tab) 1 tab PO DAILY [facility] Stop: 08/11/24 08:59 Last Admin: 07/20/24 07:33 Dose: 1 tab Nitroglycerin (Nitroglycerin Sl 0.4 Mg/Tab Tab) 0.4 mg SL Q5M PRN PRN Reason: Chest Pain Stop: 08/11/24 03:15 Last Admin: 07/17/24 10:13 Dose: 0.4 mg Oxybutynin Chloride (Oxybutynin Chloride Xl 5 Mg Tabcr) 5 mg PO QAM [facility] Stop: 08/11/24 08:59 Last Admin: 07/20/24 07:34 Dose: 5 mg Oxycodone HCl (Oxycodone Hcl Ir 5 Mg Tab (Immediate Release)) 5 mg PO Q4H PRN PRN Reason: pain Stop: 07/26/24 03:15 Last Admin: 07/15/24 20:43 Dose: 5 mg Pantoprazole Sodium (Pantoprazole 40 Mg Tab) 40 mg PO QAM [facility] Stop: 08/11/24 08:59 Last Admin: 07/20/24 07:34 Dose: 40 mg Polyethylene Glycol (Polyethylene (Miralax) 17 Gm Pack) 17 gm PO DAILY PRN PRN Reason: Constipation Stop: 08/11/24 03:15 Last Admin: 07/16/24 08:23 Dose: 17 gm Potassium Chloride (Potassium Chloride 10 Meq Tabcr) 10 meq PO BID [facility] Stop: 08/11/24 08:59 Last Admin: 07/20/24 07:34 Dose: 10 meq Umeclidinium [place] (Umeclidinium [place] 62.5mcg/Blister 7 Puffs/Inhaler) 1 puffs INH DAILY G[facility]ACIO Stop: 08/11/24 08:59 Last Admin: 07/20/24 07:31 Dose: 1 puffs Vitamin D (Cholecalciferol 25 Mcg (1000 Units) Tab) 50 mcg PO DAILY [facility] Stop: 08/11/24 08:59 Last Admin: 07/20/24 07:31 Dose: 50 mcg
--- NOTE | 2024-07-20 10:14 | Gastroenterology Progress Note ---
Date of Service July 20, 2024 Assessment & Plan (1) Heme + stool: Plan She was planned for EGD and colonoscopy today. reportedly clear stools but anesthesia is recommending delaying procedures due to concern for sepsis. - will start clears on her now. - will discuss timing of endoscopic attempt with Dr. Orr. Admission and Anticipated Discharge Date Admission Date: July 12, 2024 Supervising Physician Co-Signing Physician Notes I saw and examined this patient with our nurse practitioner and agree with her assessment and plan. Procedures canceled today due to incomplete preparation and further infectious etiology workup. Hopefully can reschedule for tomorrow pending findings. Subjective Patient took prep yesterday and got about half of it in. Nursing tells me that she was having clear stools over night. Anesthesia is recommending delay of procedures as they feel she is septic. patient offers no GI concerns. Review of Systems Review of Systems: All systems reviewed & are unremarkable except as noted in HPI & below Physical Exam Constitutional: WD/WN, vitals as above Respiratory: normal respiratory effort, lungs clear to auscultation Cardiovascular: Rate/Rhythm: regular rate and regular rhythm Gastrointestinal (Abdomen): normal bowel sounds, soft, nontender, no hepatosplenomegaly Psychiatric: Orientation: alert and oriented x 3 Affect: euthymic affect Results & Data Results & Data Vital Signs (Past 12 Hours) Vital Signs Temp Pulse Pulse Resp BP BP Pulse Ox 07/20/24 09:29 105/60 07/20/24 07:11 97.3 F L 59 L 18 99/61 L 98 07/20/24 02:40 98.1 F 70 17 98/64 L 97 07/20/24 00:47 72 100/64 07/19/24 23:41 99.9 F H 107 H 18 124/78 95 O2 Del Method O2 Flow Rate 07/20/24 09:29 07/20/24 07:11 Nasal Cannula 2 07/20/24 02:40 Nasal Cannula 2 07/20/24 00:47 07/19/24 23:41 Nasal Cannula 2 Coding Level of Care Code 16251 SUB INP/OBS CARE 1/25MIN Diagnoses Heme + stool R19.5
--- NOTE | 2024-07-20 16:27 | CT Scan Report ---
Clinical history: Nonhealing wound Technique: Axial computed tomography images were obtained of the left elbow without intravenous contrast. Sagittal and coronal reconstructions were obtained Comparison is made to the radiographs dated 07/13/2024 Findings: Again seen is internal fixation of the distal humeral shaft, metaphysis, and condyles with fixation plates and screws. There is no definite sign of infection or loosening. No definite new fracture is identified. No subluxation or dislocation is seen. There are no significant arthritic changes. No focal osseous lesion is evident There is an apparent soft tissue ulceration or surgical wound along the lateral aspect of the elbow. The visualized musculature appears unremarkable. No definite soft tissue mass or focal fluid collection is seen. No foreign body is evident Impression: 1. Unchanged internal fixation of the distal left humerus 2. Surgical wound or soft tissue ulceration laterally. No clear abscess, hematoma, or foreign body is seen Electronically signed by Rome Gama 07-20-2024 4:26 PM
--- NOTE | 2024-07-20 17:01 | Orthopedic Progress Note ---
Date of Service July 20, 2024 Assessment & Plan (1) Delayed wound healing: Plan: Ordered CT scan to assess healing. Hardware intact. No abscess. Bone looks relatively well-healed to me. Once her acute needs are addressed here at [facility] I will help arrange to have her follow-up with the trauma surgeon at [place]. I have been in contact with them and they have suggested the CT and we can get her an outpatient appointment set up to further evaluate the elbow. Assess to see whether she needs suppressive antibiotics, whether the wound heals or she needs a hardware removal. Admission and Anticipated Discharge Date Admission Date: July 12, 2024
[2024-07-21 06:47] LABS: Hematocrit (blood only) 23.4 % (37.0-47.0); Hemoglobin 7.4 g/dl (12.0-16.0); Mean Corpuscular Hemoglobin 29.4 pg (25.0-34.0); Mean Corpuscular Hgb Conc 31.6 g/dL (32.0-36.0); Mean Corpuscular Volume 92.9 fL (80.0-100.0); Platelet Count 359 K/uL (130-400); RDW Standard Deviation 56.4 fL (36.4-46.3); Red Blood Count 2.52 M/uL (4.20-5.40); White Blood Count 12.85 K/ul (4.8-10.8)
[2024-07-21 07:12] LABS: ANTI-Xa, UFH(UnfractionatedHep 0.34 IU/ml (0.3-0.7)
[2024-07-21 07:24] LABS: BUN Creatinine Ratio 16.9 (10-20); Calcium 7.9 mg/dl (8.6-10.3); Creatinine Clr Calc Pharmacy 48.1 ml/min; Magnesium 2.1 mg/dl (1.7-2.4); Phosphorus 2.7 mg/dl (2.5-4.9)
--- NOTE | 2024-07-21 09:31 | Hospitalist Progress Note ---
Date of Service July 21, 2024 Assessment & Plan (1) SOB (shortness of breath): Plan: per previous hospitalist notes with addendum: 74-year-old female with past medical history significant for chronic respiratory failure with hypoxia on 2 to 3 L oxygen at home, dyslipidemia, hypothyroidism, chronic nonspecific lung disease, COPD, hypertension, CAD status post stent, atrial fibrillation, tobacco use disorder, general anxiety disorder, generalized osteoarthritis, migraines, ambulatory dysfunction who lives at home with her daughter comes because of shortness of breath and found to also be in rapid A- fib. Patient was recently in the hospital for UTI, abnormal EKG, abdominal discomfort and shortness of breath but signed out AMA. Today she was feeling very short of breath. She gave herself breathing treatment and en route she received 2 DuoNeb's. In the ER she was in rapid A-fib with rate of 164 and received couple doses of IV Cardizem. Currently heart rate is under control. Currently resting comfortably. Complains of mild headache. There is a bruise on the right eyelid and brow region and she says she rubbed the eye and denies any falls. No blurred vision. No earache. No runny nose. No sore throat. Has cough. Denies chest pain. Denies nausea. Has abdominal discomfort and poor appetite. Complains of loss of weight. Having diarrhea for couple of weeks. Stools are dark in color. Seems having some burning micturition. Hemodynamics are okay currently. COPD exacerbation Chronic respiratory failure with hypoxia on 2-3 l oxygen at home Chest x-ray no acute findings Respiratory BioFire negative 07/19 completed course of steroids, nebs Respiratory stable back to baseline 2 L nasal cannula Anemia Iron Deficiency - denies melena/hematochezia - iron: 15 - Vit B12 and Folic acid levels: normal - stool fecal occult ordered: positive - Venofer IV given - continue Protonix - monitor closely /8 Hg stable 7-8 no melena/ hematochezia observed so far continue Protonix Will need oral ferrous sulfate anticoagulation--> currently on heparin drip, plan to transition to Eliquis after Upper GI Endoscopy per GI, will proceed with endoscopy once cleared by cardiology--> no cardiac contraindication for Upper GI Endoscopy per Cardiology 07/21 pt did not finish prep - unable to proceed w/ endoscopy, discussed w/ GI, will try to continue w/ prep and plan for endoscopy tmrw Rapid A-fib History of A-fib Received couple of doses of IV Cardizem in the ER Continue home Coreg. Question of recently reduced Coreg dose to 3.125 mg IV Lopressor as needed 07/19 per Cardiology: Patient is a poor candidate for amiodarone/antiarrhythmic therapy. Continue rate control with metoprolol succinate as presently prescribed. Resume apixaban (Eliquis) once bleeding risk evaluated (currently on heparin drip until Upper GI Endoscopy performed) -- Metoprolol increased, Losartan decreased Chest pain occurred over the weekend New septal T wave depressions Troponin x 1 negative Seems to have resolved after 2 doses of nitro Lopressor IV also given -- per Cardiology: Abnormal EKG, diffuse T wave abnormality on admission. 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 LVEF 55 to 60%. No wall motion abnormalities. High sensitivity troponin negative this admission. Recommend medical management. Mild elevation of troponin during admission Mostly demand ischemia trop 19--> 20--> 15 UTI Cultures growing Klebsiella and Staphylococcus epidermidis last admit completed Augmentin 7 day course while admitted no urinary symptoms per previous provider Overnight (07/19/2024) pt tachycardic and temp 37.7C, UA repeated, concern for UTI, started cefepime follow Ucultx Abdominal aortic aneurysm Ct abd/pelvis: Abdominal aortic aneurysm measuring approximately 3.3 cm in diameter. asymptomatic will need surveillance Ultrasound continue Plavix, Atorvastatin Diarrhea resolved Left elbow wound Since surgery of left distal humerus fracture in March 2024 Elbow xr: Status post ORIF supracondylar fracture of the distal left humerus with satisfactory positioning and alignment. No evidence of aggressive bone lesion or periosteal reaction. No elbow joint malalignment. Orthopedics consulted 07/16 per Ortho, Patient may have contaminated hardware in the left elbow Patient prefers to follow-up with [facility] She will need suppressive cephalexin or cefpodoxime per Ortho service Appreciate recommendations by Dr. Lua placed on suppressive therapy of Cephalexin BID + probiotics will need to closely follow up with Ortho at [facility] 07/20 - per Dr. Lua Ordered CT scan to assess healing. Hardware intact. No abscess. Bone looks relatively well-healed to me. Once her acute needs are addressed here at [facility] I will help arrange to have her follow-up with the trauma surgeon at [facility]. I have been in contact with them and they have suggested the CT and we can get her an outpatient appointment set up to further evaluate the elbow. Assess to see whether she needs suppressive antibiotics, whether the wound heals or she needs a hardware removal. History of CAD s/p stents On statin, Coreg, Plavix Hypertension On Metoprolol, losartan and Lasix with potassium supplement Hypothyroidism On Synthyroid GERD On Protonix Hyperlipidemia On statin Tobacco use Needs counseling Generalized anxiety disorder On citalopram and trazodone DVT prophylaxis on heparin drip Disposition PT/OT recommending Acute Rehab patient prefers to go home with home health Admission and Anticipated Discharge Date Admission Date: July 12, 2024 Subjective Pt seen in follow-up for COPD exacerbation, atrial fibrillation, etc. Overnight concern for sepsis/ UTI, HR elevated , temp 37.7C [employer] obtained UA and started cefepime Currently pt is resting in bed, comfortable, not in distress, on 2 L of O2 which is her baseline States she feels fine overall Denies chest pain, shortness of breath, palpitations, dizziness Denies cough No abdominal pain, nausea or vomiting No other new symptoms discussed w/ GI - will try to cont. prep and hopefully pt can get endoscopy done tmrw Hgb 7.4 this AM, will repeat H&H Daughter updated over the phone Also discussed in detail w/ RN Bed bugs found overnight, daughter also notified Review of Systems Review of Systems: All systems reviewed & are unremarkable except as noted in Subjective Physical Exam Physical Exam: General- oriented x 3, not in distress, speaks in sentences with no effort or accessory muscle use Eyes- anicteric Neck- no JVD Lungs- clear breath sounds bilaterally, no crackles/wheezing Heart- normal rate, regular rhythm; no murmurs Abdomen- normal bowel sounds, nondistended, soft, nontender Extremities- no pretibial edema, no calf tenderness Neuro- alert, oriented x 3; no gross focal neurologic deficits Skin- warm & dry Results & Data Results & Data Vital Signs (Past 12 Hours) Vital Signs Temp Pulse Pulse Resp BP Pulse Ox O2 Del Method 07/21/24 08:04 36.9 C 61 18 116/70 100 Nasal Cannula 07/21/24 02:56 36.8 C 66 17 110/66 100 Room Air 07/20/24 21:48 67 O2 Flow Rate 07/21/24 08:04 2 07/21/24 02:56 07/20/24 21:48 Laboratory Results 07/21/24 Range/Units 05:30 WBC 12.85 H (4.8-10.8) K/ul RBC 2.52 L (4.20-5.40) M/uL Hgb 7.4 L (12.0-16.0) g/dl Hct 23.4 L (37.0-47.0) % MCV 92.9 (80.0-100.0) fL MCH 29.4 (25.0-34.0) pg MCHC 31.6 L (32.0-36.0) g/dL RDW Std Deviation 56.4 H (36.4-46.3) fL RDW Coeff of Chet 17.0 H (11.5-14.5) % Plt Count 359 (130-400) K/uL MPV 9.0 L (9.4-12.4) fL Heparin Anti-Xa, Unfract 0.34 (0.3-0.7) IU/ml Sodium 134 L (136-145) mmol/L Potassium 4.0 (3.5-5.1) mmol/L Chloride 95 L (98-107) mmol/L Carbon Dioxide 35 H (21-32) mmol/L Anion Gap 4 (3-11) BUN 12 (6-23) mg/dl Creatinine 0.71 (0.6-1.2) mg/dl Est Cr Clr Drug Dosing 48.1 ml/min eGFR 88.61 BUN/Creatinine Ratio 16.9 (10-20) Glucose 82 (70-99(Fasting)) mg/dl Calcium 7.9 L (8.6-10.3) mg/dl Phosphorus 2.7 (2.5-4.9) mg/dl Magnesium 2.1 (1.7-2.4) mg/dl Medications Administered Current Inpatient Medications Acetaminophen (Acetaminophen 325 Mg Tab) 650 mg PO Q4H PRN PRN Reason: Pain or Fever Stop: 08/11/24 03:15 Last Admin: 07/16/24 01:21 Dose: 650 mg Albuterol (Albuterol Hfa 8 Gm Inhaler) 2 puffs INH Q4 PRN PRN Reason: WHEEZING OR COUGH Stop: 08/11/24 03:15 Aspirin (Aspirin 81 Mg Ectab) [facility] Stop: 08/13/24 08:59 Last Admin: 07/20/24 07:31 Dose: 81 mg Atorvastatin Calcium (Atorvastatin 40 Mg Tab) 40 [facility] Stop: 08/11/24 08:59 Last Admin: 07/20/24 07:34 Dose: 40 mg Citalopram Hydrobromide (Citalopram 40 Mg Tab) 40 mg PO [facility] Stop: 08/11/24 08:59 Last Admin: 07/20/24 07:33 Dose: 40 mg Fluticasone/Vilanterol (Fluticasone/Vilanterol 100/25mcg 14 Puffs/Inhaler) 1 puffs INH DAILY [facility] Stop: 08/11/24 08:59 Last Admin: 07/20/24 07:31 Dose: 1 puffs Furosemide (Furosemide 20 Mg Tab) 20 mg PO [facility] Stop: 08/11/24 08:59 Last Admin: 07/20/24 07:33 Dose: 20 mg Gabapentin (Gabapentin 300 Mg Cap) 300 mg PO BID [facility] Stop: 08/11/24 08:59 Last Admin: 07/20/24 21:32 Dose: 300 mg Promethazine HCl (Phenergan) 6.25 mg in 50.25 mls @ 201 mls/hr IV Q6H PRN PRN Reason: Nausea And Vomiting Stop: 08/12/24 14:44 Last Infusion: 07/16/24 15:49 Dose: Infused Heparin Sodium/Dextrose (Heparin 67752 Unit/500 Ml D5w) 25,000 units in 500 mls @ 6 mls/hr IV .Q24H [facility]; Protocol Stop: 08/16/24 20:29 Last Admin: 07/20/24 21:30 Dose: 300 units/hr, 6 mls/hr Cefepime HCl (Maxipime 2000mg) 2,000 mg in 20 mls @ 5 mls/min IV Q8H [facility]; Protocol Stop: 07/30/24 05:59 Last Admin: 07/21/24 06:20 Dose: 5 mls/min Lactobacillus Acidophilus (Advanced Probiotic 625 Mg Capsule) 1,250 mg PO DAILY [facility] Stop: 08/15/24 17:59 Last Admin: 07/20/24 07:31 Dose: 1,250 mg Levalbuterol HCl (Levalbuterol Hcl 0.63 Mg/3 Ml Neb) 0.63 mg NEB Q4H PRN; Protocol PRN Reason: Shortness Of Breath Or Wheezing Stop: 08/11/24 03:15 Last Admin: 07/17/24 08:14 Dose: 0.63 mg Levalbuterol HCl (Levalbuterol Hcl 0.63 Mg/3 Ml Neb) 0.63 mg NEB QIDR PRN; Protocol PRN Reason: Shortness Of Breath Or Wheezing Stop: 08/11/24 06:59 Levothyroxine Sodium (Levothyroxine Sodium 25 Mcg Tablet) 25 mcg PO DAILYBB [facility] Stop: 08/11/24 06:29 Last Admin: 07/21/24 06:21 Dose: 25 mcg Losartan Potassium (Losartan Potassium 50 Mg Tab) 50 mg PO QAM [facility] Stop: 08/18/24 08:59 Last Admin: 07/20/24 09:28 Dose: 50 mg Magnesium Oxide (Magnesium Oxide 400 Mg Tab) 400 mg PO BID [facility] Stop: 08/20/24 08:59 Last Admin: 07/20/24 07:33 Dose: 400 mg Metoprolol Succinate (Metoprolol Succ 50mg Ext Rel Tab) 50 mg PO BID [facility] Stop: 08/17/24 20:59 Last Admin: 07/20/24 21:32 Dose: Not Given Multivitamins (Multivitamin Tab) 1 tab PO DAILY [facility] Stop: 08/11/24 08:59 Last Admin: 07/20/24 07:33 Dose: 1 tab Nitroglycerin (Nitroglycerin Sl 0.4 Mg/Tab Tab) 0.4 mg SL Q5M PRN PRN Reason: Chest Pain Stop: 08/11/24 03:15 Last Admin: 07/17/24 10:13 Dose: 0.4 mg Oxybutynin Chloride (Oxybutynin Chloride Xl 5 Mg Tabcr) 5 mg PO QAM [facility] Stop: 08/11/24 08:59 Last Admin: 07/20/24 07:34 Dose: 5 mg Oxycodone HCl (Oxycodone Hcl Ir 5 Mg Tab (Immediate Release)) 5 mg PO Q4H PRN PRN Reason: pain Stop: 07/26/24 03:15 Last Admin: 07/15/24 20:43 Dose: 5 mg Pantoprazole Sodium (Pantoprazole 40 Mg Tab) 40 mg PO QAM [facility] Stop: 08/11/24 08:59 Last Admin: 07/20/24 07:34 Dose: 40 mg Polyethylene Glycol (Polyethylene (Miralax) 17 Gm Pack) 17 gm PO DAILY PRN PRN Reason: Constipation Stop: 08/11/24 03:15 Last Admin: 07/16/24 08:23 Dose: 17 gm Potassium Chloride (Potassium Chloride 10 Meq Tabcr) 10 meq PO BID [facility] Stop: 08/11/24 08:59 Last Admin: 07/20/24 21:31 Dose: 10 meq Umeclidinium Nazlini (Umeclidinium Nazlini 62.5mcg/Blister 7 Puffs/Inhaler) 1 puffs INH DAILY [facility] Stop: 08/11/24 08:59 Last Admin: 07/20/24 07:31 Dose: 1 puffs Vitamin D (Cholecalciferol 25 Mcg (1000 Units) Tab) 50 mcg PO DAILY [facility] Stop: 08/11/24 08:59 Last Admin: 07/20/24 07:31 Dose: 50 mcg
--- NOTE | 2024-07-21 10:31 | Gastroenterology Progress Note ---
Date of Service July 21, 2024 Assessment & Plan (1) Heme + stool: Plan: Stools were not clear per nursing and patient is now refusing prep and scopes. Will discuss case further with Dr. Orr. Admission and Anticipated Discharge Date Admission Date: July 12, 2024 Subjective Patient was refusing prep yesterday evening saying it makes her sick. she refused to try doing prep while using antiemetic. Nursing notes that she has had formed stools. she was found to have bed bugs yesterday and had to have room change secondary to this. Physical Exam Respiratory: normal respiratory effort on O2. Psychiatric: alert and oriented. Results & Data Results & Data Vital Signs (Past 12 Hours) Vital Signs Temp Pulse Pulse Resp BP Pulse Ox O2 Del Method 07/21/24 10:00 67 07/21/24 08:04 98.4 F 61 18 116/70 100 Nasal Cannula 07/21/24 02:56 98.2 F 66 17 110/66 100 Room Air O2 Flow Rate 07/21/24 10:00 07/21/24 08:04 2 07/21/24 02:56 Coding Level of Care Code 22839 SUB INP/OBS CARE 05/07MIN Diagnoses Heme + stool R19.5
[2024-07-21 18:58] LABS: Hematocrit (blood only) 25.1 % (37.0-47.0); Hemoglobin 7.6 g/dl (12.0-16.0)
[2024-07-21] MEDS: CEFEPIME 2000MG 2,000 MG/20 ML SYR IV SCH (19:51)
[2024-07-21] MEDS: SODIUM CHLORIDE 0.9% 1,000 ML IV ONE (20:54)
[2024-07-21] MEDS: LAVAGE SOLUTION 4000ML PO SCH (20:54)
[2024-07-22 07:50] LABS: Hematocrit (blood only) 25.5 % (37.0-47.0); Hemoglobin 7.9 g/dl (12.0-16.0); Mean Corpuscular Hemoglobin 28.6 pg (25.0-34.0); Mean Corpuscular Volume 92.4 fL (80.0-100.0); Platelet Count 356 K/uL (130-400); RDW Coefficient of Variation 16.9 % (11.5-14.5); RDW Standard Deviation 55.7 fL (36.4-46.3); Red Blood Count 2.76 M/uL (4.20-5.40); White Blood Count 11.58 K/ul (4.8-10.8)
[2024-07-22 08:07] LABS: ANTI-Xa, UFH(UnfractionatedHep 0.19 IU/ml (0.3-0.7)
[2024-07-22 08:08] LABS: BUN Creatinine Ratio 22.8 (10-20); Calcium 7.9 mg/dl (8.6-10.3); Creatinine Clr Calc Pharmacy 60.2 ml/min; Phosphorus 2.8 mg/dl (2.5-4.9); Potassium 4.1 mmol/L (3.5-5.1)
[2024-07-22] MEDS: HEPARIN SOD (PORCINE) 1000 UNIT/ML IV ONE (09:41)
--- NOTE | 2024-07-22 10:27 | Gastroenterology Progress Note ---
Date of Service July 22, 2024 Assessment & Plan (1) Heme + stool: Plan Patient is again refusing prep. We also discussed attempting prep with an antiemetic on board and she refuses this. We even discussed having her prep over the weekend so she had more time to get the prep in and she is not interested in this. I offered to perform just an EGD and again, she is not sure she wants to do this. hgb currently stable. - follow hgb/hct and transfuse as needed. - continue with pantoprazole 40mg once daily. - okay to resume previous diet. - please recall GI if patient is agreeable to prepping as well as testing. Admission and Anticipated Discharge Date Admission Date: July 12, 2024 Subjective Patient again refused her prep last evening. spoke with nursing and she is moving her bowels but they are not clear. stools were reportedly darker last evening per chart. Patient is again refusing procedures at this time. rest of GI ros are unremarkable. 07/21/24 hgb 7.6 07/22/24 hgb 7.9 Review of Systems Review of Systems: All systems reviewed & are unremarkable except as noted in HPI & below Physical Exam Respiratory: normal respiratory effort. Psychiatric: alert and oriented x 3. Results & Data Results & Data Vital Signs (Past 12 Hours) Vital Signs Temp Pulse Pulse Resp BP Pulse Ox O2 Del Method 07/22/24 09:00 Nasal Cannula 07/22/24 08:14 97.7 F 97 H 18 122/76 98 Nasal Cannula 07/22/24 03:01 97.9 F 98 H 17 110/67 96 Nasal Cannula 07/21/24 23:05 98.1 F 100 H 17 112/75 97 Nasal Cannula 07/21/24 23:00 108 H O2 Flow Rate 07/22/24 09:00 2 07/22/24 08:14 2 07/22/24 03:01 2 07/21/24 23:05 2 07/21/24 23:00 Coding Level of Care Code 96130 SUB INP/OBS CARE 05/07MIN Diagnoses Heme + stool R19.5
[2024-07-22 15:40] LABS: ANTI-Xa, UFH(UnfractionatedHep 0.32 IU/ml (0.3-0.7)
--- NOTE | 2024-07-22 18:07 | Hospitalist Progress Note ---
Date of Service July 22, 2024 Assessment & Plan (1) SOB (shortness of breath): Plan: per previous hospitalist notes with addendum: 74-year-old female with past medical history significant for chronic respiratory failure with hypoxia on 2 to 3 L oxygen at home, dyslipidemia, hypothyroidism, chronic nonspecific lung disease, COPD, hypertension, CAD status post stent, atrial fibrillation, tobacco use disorder, general anxiety disorder, generalized osteoarthritis, migraines, ambulatory dysfunction who lives at home with her daughter comes because of shortness of breath and found to also be in rapid A- fib. Patient was recently in the hospital for UTI, abnormal EKG, abdominal discomfort and shortness of breath but signed out AMA. Today she was feeling very short of breath. She gave herself breathing treatment and en route she received 2 DuoNeb's. In the ER she was in rapid A-fib with rate of 164 and received couple doses of IV Cardizem. Currently heart rate is under control. Currently resting comfortably. Complains of mild headache. There is a bruise on the right eyelid and brow region and she says she rubbed the eye and denies any falls. No blurred vision. No earache. No runny nose. No sore throat. Has cough. Denies chest pain. Denies nausea. Has abdominal discomfort and poor appetite. Complains of loss of weight. Having diarrhea for couple of weeks. Stools are dark in color. Seems having some burning micturition. Hemodynamics are okay currently. COPD exacerbation Chronic respiratory failure with hypoxia on 2-3 l oxygen at home Chest x-ray no acute findings Respiratory BioFire negative 07/19 completed course of steroids, nebs Respiratory stable back to baseline 2 L nasal cannula Anemia Iron Deficiency - denies melena/hematochezia - iron: 15 - Vit B12 and Folic acid levels: normal - stool fecal occult ordered: positive - Venofer IV given - continue Protonix - monitor closely /8 Hg stable 7-8 no melena/ hematochezia observed so far continue Protonix Will need oral ferrous sulfate anticoagulation--> currently on heparin drip, plan to transition to Eliquis after Upper GI Endoscopy per GI, will proceed with endoscopy once cleared by cardiology--> no cardiac contraindication for Upper GI Endoscopy per Cardiology 07/21 pt did not finish prep - unable to proceed w/ endoscopy, discussed w/ GI, will try to continue w/ prep and plan for endoscopy tmrw 07/22 discussed w/ GI - will plan for endoscopy for Thursday, will go with miralax prep Rapid A-fib History of A-fib Received couple of doses of IV Cardizem in the ER Continue home Coreg. Question of recently reduced Coreg dose to 3.125 mg IV Lopressor as needed 07/19 per Cardiology: Patient is a poor candidate for amiodarone/antiarrhythmic therapy. Continue rate control with metoprolol succinate as presently prescribed. Resume apixaban (Eliquis) once bleeding risk evaluated (currently on heparin drip until Upper GI Endoscopy performed) -- Metoprolol increased, Losartan decreased Chest pain occurred over the weekend New septal T wave depressions Troponin x 1 negative Seems to have resolved after 2 doses of nitro Lopressor IV also given -- per Cardiology: Abnormal EKG, diffuse T wave abnormality on admission. 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 LVEF 55 to 60%. No wall motion abnormalities. High sensitivity troponin negative this admission. Recommend medical management. Mild elevation of troponin during admission Mostly demand ischemia trop 19--> 20--> 15 UTI Cultures growing Klebsiella and Staphylococcus epidermidis last admit completed Augmentin 7 day course while admitted no urinary symptoms per previous provider Overnight (07/19/2024) pt tachycardic and temp 37.7C, UA repeated, concern for UTI, started cefepime follow Ucultx Ucultx posit. for Pseudomonas, cont. cefepime Abdominal aortic aneurysm Ct abd/pelvis: Abdominal aortic aneurysm measuring approximately 3.3 cm in diameter. asymptomatic will need surveillance Ultrasound continue Plavix, Atorvastatin Diarrhea resolved Left elbow wound Since surgery of left distal humerus fracture in March 2024 Elbow xr: Status post ORIF supracondylar fracture of the distal left humerus with satisfactory positioning and alignment. No evidence of aggressive bone lesion or periosteal reaction. No elbow joint malalignment. Orthopedics consulted 07/16 per Ortho, Patient may have contaminated hardware in the left elbow Patient prefers to follow-up with [facility] service She will need suppressive cephalexin or cefpodoxime per Ortho service Appreciate recommendations by Dr. Lua placed on suppressive therapy of Cephalexin BID + probiotics will need to closely follow up with Ortho at [facility] 07/20 - per Dr. Lua Ordered CT scan to assess healing. Hardware intact. No abscess. Bone looks relatively well-healed to me. Once her acute needs are addressed here at [facility] I will help arrange to have her follow-up with the trauma surgeon at [facility]. I have been in contact with them and they have suggested the CT and we can get her an outpatient appointment set up to further evaluate the elbow. Assess to see whether she needs suppressive antibiotics, whether the wound heals or she needs a hardware removal. History of CAD s/p stents On statin, Coreg, Plavix Hypertension On Metoprolol, losartan and Lasix with potassium supplement Hypothyroidism On Synthyroid GERD On Protonix Hyperlipidemia On statin Tobacco use Needs counseling Generalized anxiety disorder On citalopram and trazodone DVT prophylaxis on heparin drip Disposition PT/OT recommending Acute Rehab patient prefers to go home with home health Admission and Anticipated Discharge Date Admission Date: July 12, 2024 Subjective Pt seen in follow-up for COPD exacerbation, atrial fibrillation, etc. ucultx posit for pseudomonas, cont. cefepime Currently pt is resting in bed, comfortable, not in distress, on 2 L of O2 which is her baseline States she feels fine overall Denies chest pain, shortness of breath, palpitations, dizziness Denies cough No abdominal pain, nausea or vomiting No other new symptoms discussed w/ GI - plan for endoscopy on Thursday, will use miralax for prep Hgb 7.9 this AM Daughter updated over the phone yesterday Also discussed in detail w/ RN Bed bugs found, daughter also notified yesterday Review of Systems Review of Systems: All systems reviewed & are unremarkable except as noted in Subjective Physical Exam Physical Exam: General- oriented x 3, not in distress, speaks in sentences with no effort or accessory muscle use Eyes- anicteric Neck- no JVD Lungs- clear breath sounds bilaterally, no crackles/wheezing Heart- normal rate, regular rhythm; no murmurs Abdomen- normal bowel sounds, nondistended, soft, nontender Extremities- no pretibial edema, no calf tenderness Neuro- alert, oriented x 3; no gross focal neurologic deficits Skin- warm & dry Results & Data Results & Data Vital Signs (Past 12 Hours) Vital Signs Temp Pulse Resp BP Pulse Ox O2 Del Method O2 Flow Rate 07/22/24 15:35 36.4 C L 82 18 98/62 L 98 Nasal Cannula 2 07/22/24 11:19 36.4 C L 61 18 126/64 97 Room Air 07/22/24 09:00 Nasal Cannula 2 07/22/24 08:14 36.5 C 97 H 18 122/76 98 Nasal Cannula 2 Laboratory Results 07/22/24 07/22/24 07/21/24 Range/Units 14:50 07:06 18:24 WBC 11.58 H (4.8-10.8) K/ul RBC 2.76 L (4.20-5.40) M/uL Hgb 7.9 L 7.6 L (12.0-16.0) g/dl Hct 25.5 L 25.1 L (37.0-47.0) % MCV 92.4 (80.0-100.0) fL MCH 28.6 (25.0-34.0) pg MCHC 31.0 L (32.0-36.0) g/dL RDW Std Deviation 55.7 H (36.4-46.3) fL RDW Coeff of Chet 16.9 H (11.5-14.5) % Plt Count 356 (130-400) K/uL MPV 9.0 L (9.4-12.4) fL Heparin Anti-Xa, Unfract 0.32 0.19 L (0.3-0.7) IU/ml Sodium 135 L (136-145) mmol/L Potassium 4.1 (3.5-5.1) mmol/L Chloride 98 (98-107) mmol/L Carbon Dioxide 29 (21-32) mmol/L Anion Gap 8 (3-11) BUN 13 (6-23) mg/dl Creatinine 0.57 L (0.6-1.2) mg/dl Est Cr Clr Drug Dosing 60.2 ml/min eGFR 94.71 BUN/Creatinine Ratio 22.8 H (10-20) Glucose 54 L (70-99(Fasting)) mg/dl Calcium 7.9 L (8.6-10.3) mg/dl Phosphorus 2.8 (2.5-4.9) mg/dl Magnesium 2.0 (1.7-2.4) mg/dl Medications Administered Current Inpatient Medications Acetaminophen (Acetaminophen 325 Mg Tab) 650 mg PO Q4H PRN PRN Reason: Pain or Fever Stop: 08/11/24 03:15 Last Admin: 04/05/25 01:21 Dose: 650 mg Albuterol (Albuterol Hfa 8 Gm Inhaler) 2 puffs INH Q4 PRN PRN Reason: WHEEZING OR COUGH Stop: 08/11/24 03:15 Aspirin (Aspirin 81 Mg Ectab) [facility] [place] Stop: 08/13/24 08:59 Last Admin: 07/22/24 09:44 Dose: 81 mg Atorvastatin Calcium (Atorvastatin 40 Mg Tab) 40 mg PO [facility] Stop: 08/11/24 08:59 Last Admin: 07/22/24 09:44 Dose: 40 mg Citalopram Hydrobromide (Citalopram 40 Mg Tab) 40 mg PO [facility] Stop: 08/11/24 08:59 Last Admin: 07/22/24 09:43 Dose: 40 mg Fluticasone/Vilanterol (Fluticasone/Vilanterol 100/25mcg 14 Puffs/Inhaler) 1 puffs INH DAILY [facility] Stop: 08/11/24 08:59 Last Admin: 07/22/24 09:41 Dose: 1 puffs Furosemide (Furosemide 20 Mg Tab) [facility] [place] Stop: 08/11/24 08:59 Last Admin: 07/22/24 09:44 Dose: 20 mg Gabapentin (Gabapentin 300 Mg Cap) 300 mg PO BID [facility] Stop: 08/11/24 08:59 Last Admin: 07/22/24 09:44 Dose: 300 mg Promethazine HCl (Phenergan) 6.25 mg in 50.25 mls @ 201 mls/hr IV Q6H PRN PRN Reason: Nausea And Vomiting Stop: 08/12/24 14:44 Last Infusion: 07/16/24 15:49 Dose: Infused Heparin Sodium/Dextrose (Heparin 07813 Unit/500 Ml D5w) 25,000 units in 500 mls @ 8 mls/hr IV .Q24H [facility]; Protocol Stop: 08/16/24 20:29 Last Titration: 07/22/24 15:46 Dose: 400 units/hr, 8 mls/hr Cefepime HCl (Maxipime 2000mg) 2,000 mg in 20 mls @ 5 mls/min IV Q12H [facility]; Protocol Stop: 07/30/24 17:59 Last Admin: 07/22/24 16:14 Dose: 5 mls/min Lactobacillus Acidophilus (Advanced Probiotic 625 Mg Capsule) 1,250 mg PO DAILY [facility] Stop: 08/15/24 17:59 Last Admin: 07/22/24 09:42 Dose: 1,250 mg Levalbuterol HCl (Levalbuterol Hcl 0.63 Mg/3 Ml Neb) 0.63 mg NEB Q4H PRN; Protocol PRN Reason: Shortness Of Breath Or Wheezing Stop: 08/11/24 03:15 Last Admin: 07/17/24 08:14 Dose: 0.63 mg Levalbuterol HCl (Levalbuterol Hcl 0.63 Mg/3 Ml Neb) 0.63 mg NEB QIDR PRN; Protocol PRN Reason: Shortness Of Breath Or Wheezing Stop: 08/11/24 06:59 Levothyroxine Sodium (Levothyroxine Sodium 25 Mcg Tablet) [facility] Stop: 08/11/24 06:29 Last Admin: 07/22/24 05:58 Dose: 25 mcg Losartan Potassium (Losartan Potassium 50 Mg Tab) 50 mg PO QAM [facility] Stop: 08/18/24 08:59 Last Admin: 07/22/24 09:44 Dose: 50 mg Magnesium Oxide (Magnesium Oxide 400 Mg Tab) 400 mg PO BID [facility] Stop: 08/20/24 08:59 Last Admin: 07/22/24 09:45 Dose: 400 mg Metoprolol Succinate (Metoprolol Succ 50mg Ext Rel Tab) 50 mg PO BID [facility] Stop: 08/17/24 20:59 Last Admin: 07/22/24 09:44 Dose: 50 mg Multivitamins (Multivitamin Tab) 1 tab PO DAILY [facility] Stop: 08/11/24 08:59 Last Admin: 07/22/24 09:44 Dose: 1 tab Nitroglycerin (Nitroglycerin Sl 0.4 Mg/Tab Tab) 0.4 mg SL Q5M PRN PRN Reason: Chest Pain Stop: 08/11/24 03:15 Last Admin: 07/17/24 10:13 Dose: 0.4 mg Oxybutynin Chloride (Oxybutynin Chloride Xl 5 Mg Tabcr) 5 mg PO QAM [facility] Stop: 08/11/24 08:59 Last Admin: 07/22/24 09:44 Dose: 5 mg Oxycodone HCl (Oxycodone Hcl Ir 5 Mg Tab (Immediate Release)) 5 mg PO Q4H PRN PRN Reason: pain Stop: 07/26/24 03:15 Last Admin: 07/15/24 20:43 Dose: 5 mg Pantoprazole Sodium (Pantoprazole 40 Mg Tab) 40 mg PO QAM [facility] Stop: 08/11/24 08:59 Last Admin: 07/22/24 09:44 Dose: 40 mg Polyethylene Glycol (Polyethylene (Miralax) 17 Gm Pack) 17 gm PO DAILY PRN PRN Reason: Constipation Stop: 08/11/24 03:15 Last Admin: 07/21/24 20:54 Dose: 17 gm Polyethylene Glycol (Polyethylene (Miralax) 17 Gm Pack) 119 gm PO TODAY@0100,1800 [facility] Stop: 07/24/24 01:01 Potassium Chloride (Potassium Chloride 10 Meq Tabcr) 10 meq PO BID [facility] Stop: 08/11/24 08:59 Last Admin: 07/22/24 09:41 Dose: 10 meq Umeclidinium Cocoa (Umeclidinium Cocoa 62.5mcg/Blister 7 Puffs/Inhaler) 1 puffs INH DAILY [facility] Stop: 08/11/24 08:59 Last Admin: 07/22/24 09:41 Dose: 1 puffs Vitamin D (Cholecalciferol 25 Mcg (1000 Units) Tab) 50 mcg PO DAILY [facility] Stop: 08/11/24 08:59 Last Admin: 07/22/24 09:44 Dose: 50 mcg
[2024-07-23 08:28] LABS: Hematocrit (blood only) 27.1 % (37.0-47.0); Hemoglobin 8.2 g/dl (12.0-16.0); Mean Corpuscular Hemoglobin 27.7 pg (25.0-34.0); Mean Corpuscular Hgb Conc 30.3 g/dL (32.0-36.0); Mean Corpuscular Volume 91.6 fL (80.0-100.0); Mean Platelet Volume 9.1 fL (9.4-12.4); Platelet Count 403 K/uL (130-400); RDW Coefficient of Variation 16.9 % (11.5-14.5); RDW Standard Deviation 55.2 fL (36.4-46.3); Red Blood Count 2.96 M/uL (4.20-5.40); White Blood Count 13.02 K/ul (4.8-10.8)
[2024-07-23 08:43] LABS: ANTI-Xa, UFH(UnfractionatedHep 0.18 IU/ml (0.3-0.7); BUN Creatinine Ratio 14.1 (10-20); Calcium 8.2 mg/dl (8.6-10.3); Creatinine Clr Calc Pharmacy 43.9 ml/min; Phosphorus 2.2 mg/dl (2.5-4.9)
--- NOTE | 2024-07-23 09:00 | Gastroenterology Progress Note ---
Date of Service July 23, 2024 Assessment & Plan (1) Heme + stool: Plan: Anemia, heme + stool, Agreeable for EGD/colonoscopy on Tuesday 07/25. Two day prep ordered Admission and Anticipated Discharge Date Admission Date: July 12, 2024 Subjective Rapid atrial fibrillation. Received couple doses of IV Cardizem. Currently heart rate is under control. Worsening of anemia, Hg 7.4 Dark, heme+ stools. The patient is now agreeable for EGD/colonoscopy The most recent colonoscopy was >10 years ago. Multiple chronic medical issues: chronic respiratory failure with hypoxia on 2 to 3 L oxygen at home, dyslipidemia, hypothyroidism, chronic nonspecific lung disease, COPD, hypertension, CAD status post stent, atrial fibrillation, tobacco use disorder, general anxiety disorder, generalized osteoarthritis, migraines, ambulatory dysfunction Review of Systems Review of Systems: Constitutional: Denies weight loss, chills, fever, fatigue. Respiratory: Denies cough, denies shortness of breath at rest. Cardiovascular: Denies chest pain and palpitations. Gastrointestinal: Denies nausea, vomiting, diarrhea, constipation, abdominal pain. Physical Exam Physical Exam: Constitutional: Appears chronically ill, vitals as above Respiratory: normal respiratory effort, lungs clear to auscultation Cardiovascular: irregular, no murmur, no edema Gastrointestinal (Abdomen): normal bowel sounds, soft, nontender, no hepatosplenomegaly. Neurological: Oriented x 3, grossly no focal abnormalities, speech is intact. Results & Data Results & Data Vital Signs (Past 12 Hours) Vital Signs Temp Pulse Pulse Resp BP BP Pulse Ox 07/23/24 07:59 36.7 C 114 H 18 138/79 99 07/23/24 03:04 36.7 C 84 16 129/79 96 07/23/24 00:58 90 07/22/24 23:39 36.7 C 86 18 133/69 94 07/22/24 22:00 O2 Del Method O2 Flow Rate 07/23/24 07:59 Nasal Cannula 2.0 07/23/24 03:04 Nasal Cannula 2 07/23/24 00:58 07/22/24 23:39 Room Air 07/22/24 22:00 Room Air Laboratory Results Reviewed PG Care Time/CCT Total # of Minutes Spent Total Time Spent with Patient: Total time spent is greater than 50% in coordination of care (as documented) at patient's floor/unit and/or counseling patient: Coding Level of Care Code 90793 SUB INP/OBS CARE 235MIN Diagnoses Heme + stool R19.5
[2024-07-23] MEDS: HEPARIN SOD (PORCINE) 1000 UNIT/ML IV ONE (10:08)
--- NOTE | 2024-07-23 14:12 | Hospitalist Progress Note ---
Date of Service July 23, 2024 Assessment & Plan (1) SOB (shortness of breath): Plan: per previous hospitalist notes with addendum: 74-year-old female with past medical history significant for chronic respiratory failure with hypoxia on 2 to 3 L oxygen at home, dyslipidemia, hypothyroidism, chronic nonspecific lung disease, COPD, hypertension, CAD status post stent, atrial fibrillation, tobacco use disorder, general anxiety disorder, generalized osteoarthritis, migraines, ambulatory dysfunction who lives at home with her daughter comes because of shortness of breath and found to also be in rapid A- fib. Patient was recently in the hospital for UTI, abnormal EKG, abdominal discomfort and shortness of breath but signed out AMA. Today she was feeling very short of breath. She gave herself breathing treatment and en route she received 2 DuoNeb's. In the ER she was in rapid A-fib with rate of 164 and received couple doses of IV Cardizem. Currently heart rate is under control. Currently resting comfortably. Complains of mild headache. There is a bruise on the right eyelid and brow region and she says she rubbed the eye and denies any falls. No blurred vision. No earache. No runny nose. No sore throat. Has cough. Denies chest pain. Denies nausea. Has abdominal discomfort and poor appetite. Complains of loss of weight. Having diarrhea for couple of weeks. Stools are dark in color. Seems having some burning micturition. Hemodynamics are okay currently. COPD exacerbation Chronic respiratory failure with hypoxia on 2-3 l oxygen at home Chest x-ray no acute findings Respiratory BioFire negative 07/19 completed course of steroids, nebs Respiratory stable back to baseline 2 L nasal cannula Anemia Iron Deficiency - denies melena/hematochezia - iron: 15 - Vit B12 and Folic acid levels: normal - stool fecal occult ordered: positive - Venofer IV given - continue Protonix - monitor closely /8 Hg stable 7-8 no melena/ hematochezia observed so far continue Protonix Will need oral ferrous sulfate anticoagulation--> currently on heparin drip, plan to transition to Eliquis after Upper GI Endoscopy per GI, will proceed with endoscopy once cleared by cardiology--> no cardiac contraindication for Upper GI Endoscopy per Cardiology 07/21 pt did not finish prep - unable to proceed w/ endoscopy, discussed w/ GI, will try to continue w/ prep and plan for endoscopy tmrw 07/22 discussed w/ GI - will plan for endoscopy for Thursday, will go with miralax prep Rapid A-fib History of A-fib Received couple of doses of IV Cardizem in the ER Continue home Coreg. Question of recently reduced Coreg dose to 3.125 mg IV Lopressor as needed 07/19 per Cardiology: Patient is a poor candidate for amiodarone/antiarrhythmic therapy. Continue rate control with metoprolol succinate as presently prescribed. Resume apixaban (Eliquis) once bleeding risk evaluated (currently on heparin drip until Upper GI Endoscopy performed) -- Metoprolol increased, Losartan decreased Chest pain occurred over the weekend New septal T wave depressions Troponin x 1 negative Seems to have resolved after 2 doses of nitro Lopressor IV also given -- per Cardiology: Abnormal EKG, diffuse T wave abnormality on admission. 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 LVEF 55 to 60%. No wall motion abnormalities. High sensitivity troponin negative this admission. Recommend medical management. Mild elevation of troponin during admission Mostly demand ischemia trop 19--> 20--> 15 UTI Cultures growing Klebsiella and Staphylococcus epidermidis last admit completed Augmentin 7 day course while admitted no urinary symptoms per previous provider Overnight (07/19/2024) pt tachycardic and temp 37.7C, UA repeated, concern for UTI, started cefepime follow Ucultx Ucultx posit. for Pseudomonas, cont. cefepime Abdominal aortic aneurysm Ct abd/pelvis: Abdominal aortic aneurysm measuring approximately 3.3 cm in nelly meter. asymptomatic will need surveillance Ultrasound continue Plavix, Atorvastatin Diarrhea resolved Left elbow wound Since surgery of left distal humerus fracture in March 2024 Elbow xr: Status post ORIF supracondylar fracture of the distal left humerus with satisfactory positioning and alignment. No evidence of aggressive bone le brian or periosteal reaction. No elbow joint malalignment. Orthopedics consulted 07/16 per Ortho, Patient may have contaminated hardware in the left elbow Patient prefers to follow-up with [facility] service She will need suppressive cephalexin or cefpodoxime per Ortho service Appreciate recommendations by Dr. Lua placed on suppressive therapy of Cephalexin BID + probiotics will need to closely follow up with Ortho at [facility] 07/20 - per Dr. Lua Ordered CT scan to assess healing. Hardware intact. No abscess. Bone looks relatively well-healed to me. Once her acute needs are addressed here at [facility] I will help arrange to have her follow-up with the trauma surgeon at [facility]. I have been in contact with them and they have suggested the CT and we can get her an outpatient appointment set up to further evaluate the elbow. Assess to see whether she needs suppressive antibiotics, whether the wound heals or she needs a hardware removal. History of CAD s/p stents On statin, Coreg, Plavix Hypertension On Metoprolol, losartan and Lasix with potassium supplement Hypothyroidism On Synthyroid GERD On Protonix Hyperlipidemia On statin Tobacco use Needs counseling Generalized anxiety disorder On citalopram and trazodone DVT prophylaxis on heparin drip Disposition PT/OT recommending Acute Rehab patient prefers to go home with home health Admission and Anticipated Discharge Date Admission Date: July 12, 2024 Subjective Pt seen in follow-up for COPD exacerbation, atrial fibrillation, etc. ucultx posit for pseudomonas, cont. cefepime Currently pt is resting in bed, comfortable, not in distress States she feels well overall Denies chest pain, shortness of breath, palpitations, dizziness Denies cough No abdominal pain, nausea or vomiting No other new symptoms discussed w/ GI - plan for endoscopy on Thursday, will use miralax for prep Hgb 8.2 this AM Review of Systems Review of Systems: All systems reviewed & are unremarkable except as noted in Subjective Physical Exam Physical Exam: General- oriented x 3, not in distress, speaks in sentences with no effort or accessory muscle use Eyes- anicteric Neck- no JVD Lungs- clear breath sounds bilaterally, no crackles/wheezing Heart- normal rate, regular rhythm; no murmurs Abdomen- normal bowel sounds, nondistended, soft, nontender Extremities- no pretibial edema, no calf tenderness Neuro- alert, oriented x 3; no gross focal neurologic deficits Skin- warm & dry Results & Data Results & Data Vital Signs (Past 12 Hours) Vital Signs Temp Pulse Resp BP BP Pulse Ox O2 Del Method 07/23/24 11:58 36.7 C 87 18 122/78 94 Room Air 07/23/24 08:45 Nasal Cannula 07/23/24 07:59 36.7 C 114 H 18 138/79 99 Nasal Cannula 07/23/24 03:04 36.7 C 84 16 129/79 96 Nasal Cannula O2 Flow Rate 07/23/24 11:58 07/23/24 08:45 2 07/23/24 07:59 2.0 07/23/24 03:04 2 Laboratory Results 07/23/24 07/22/24 Range/Units 07:54 14:50 WBC 13.02 H (4.8-10.8) K/ul RBC 2.96 L (4.20-5.40) M/uL Hgb 8.2 L (12.0-16.0) g/dl Hct 27.1 L (37.0-47.0) % MCV 91.6 (80.0-100.0) fL MCH 27.7 (25.0-34.0) pg MCHC 30.3 L (32.0-36.0) g/dL RDW Std Deviation 55.2 H (36.4-46.3) fL RDW Coeff of Chet 16.9 H (11.5-14.5) % Plt Count 403 H (130-400) K/uL MPV 9.1 L (9.4-12.4) fL Heparin Anti-Xa, Unfract 0.18 L 0.32 (0.3-0.7) IU/ml Sodium 133 L (136-145) mmol/L Potassium 4.0 (3.5-5.1) mmol/L Chloride 97 L (98-107) mmol/L Carbon Dioxide 32 (21-32) mmol/L Anion Gap 4 (3-11) BUN 11 (6-23) mg/dl Creatinine 0.78 (0.6-1.2) mg/dl Est Cr Clr Drug Dosing 43.9 ml/min eGFR 79.16 BUN/Creatinine Ratio 14.1 (10-20) Glucose 110 H (70-99(Fasting)) mg/dl Calcium 8.2 L (8.6-10.3) mg/dl Phosphorus 2.2 L (2.5-4.9) mg/dl Magnesium 2.0 (1.7-2.4) mg/dl Medications Administered Current Inpatient Medications Acetaminophen (Acetaminophen 325 Mg Tab) 650 mg PO Q4H PRN PRN Reason: Pain or Fever Stop: 08/11/24 03:15 Last Admin: 07/16/24 01:21 Dose: 650 mg Albuterol (Albuterol Hfa 8 Gm Inhaler) 2 puffs INH Q4 PRN PRN Reason: WHEEZING OR COUGH Stop: 08/11/24 03:15 Aspirin (Aspirin 81 Mg Ectab) 81 mg PO QAM [facility] Stop: 08/13/24 08:59 Last Admin: 07/23/24 09:46 Dose: 81 mg Atorvastatin Calcium (Atorvastatin 40 Mg Tab) 40 mg PO QAM [facility] Stop: 08/11/24 08:59 Last Admin: 07/23/24 09:47 Dose: 40 mg Citalopram Hydrobromide (Citalopram 20 Mg Tab) 40 mg PO QAM [facility] Stop: 08/23/24 08:59 Fluticasone/Vilanterol (Fluticasone/Vilanterol 100/25mcg 14 Puffs/Inhaler) 1 puffs INH DAILY [facility] Stop: 08/11/24 08:59 Last Admin: 07/23/24 09:47 Dose: 1 puffs Furosemide (Furosemide 20 Mg Tab) 20 mg PO QAM [facility] Stop: 08/11/24 08:59 Last Admin: 07/23/24 09:46 Dose: 20 mg Gabapentin (Gabapentin 300 Mg Cap) 300 mg PO BID [facility] Stop: 08/11/24 08:59 Last Admin: 07/23/24 09:47 Dose: 300 mg Promethazine HCl (Phenergan) 6.25 mg in 50.25 mls @ 201 mls/hr IV Q6H PRN PRN Reason: Nausea And Vomiting Stop: 08/12/24 14:44 Last Infusion: 07/16/24 15:49 Dose: Infused Heparin Sodium/Dextrose (Heparin 87971 Unit/500 Ml D5w) 25,000 units in 500 mls @ 10 mls/hr IV .Q24H [facility]; Protocol Stop: 08/16/24 20:29 Last Titration: 07/23/24 09:40 Dose: 500 units/hr, 10 mls/hr Cefepime HCl (Maxipime 2000mg) 2,000 mg in 20 mls @ 5 mls/min IV Q12H [facility]; Protocol Stop: 07/30/24 17:59 Last Admin: 07/23/24 06:26 Dose: 5 mls/min Lactobacillus Acidophilus (Advanced Probiotic 625 Mg Capsule) 1,250 mg PO DAILY [facility] Stop: 08/15/24 17:59 Last Admin: 07/23/24 09:47 Dose: 1,250 mg Levalbuterol HCl (Levalbuterol Hcl 0.63 Mg/3 Ml Neb) 0.63 mg NEB Q4H PRN; Protocol PRN Reason: Shortness Of Breath Or Wheezing Stop: 08/11/24 03:15 Last Admin: 07/17/24 08:14 Dose: 0.63 mg Levalbuterol HCl (Levalbuterol Hcl 0.63 Mg/3 Ml Neb) 0.63 mg NEB QIDR PRN; Protocol PRN Reason: Shortness Of Breath Or Wheezing Stop: 08/11/24 06:59 Levothyroxine Sodium (Levothyroxine Sodium 25 Mcg Tablet) [facility] Stop: 08/11/24 06:29 Last Admin: 07/23/24 06:27 Dose: 25 mcg Losartan Potassium (Losartan Potassium 50 Mg Tab) 50 mg PO QAM [facility] Stop: 08/18/24 08:59 Last Admin: 07/22/24 22:21 Dose: 50 mg Magnesium Oxide (Magnesium Oxide 400 Mg Tab) 400 mg PO BID [facility] Stop: 08/20/24 08:59 Last Admin: 07/23/24 09:48 Dose: 400 mg Metoprolol Succinate (Metoprolol Succ 50mg Ext Rel Tab) 50 mg PO BID [facility] Stop: 08/17/24 20:59 Last Admin: 07/23/24 09:48 Dose: 50 mg Multivitamins (Multivitamin Tab) 1 tab PO DAILY [facility] Stop: 08/11/24 08:59 Last Admin: 07/23/24 09:48 Dose: 1 tab Nitroglycerin (Nitroglycerin Sl 0.4 Mg/Tab Tab) 0.4 mg SL Q5M PRN PRN Reason: Chest Pain Stop: 08/11/24 03:15 Last Admin: 07/17/24 10:13 Dose: 0.4 mg Oxybutynin Chloride (Oxybutynin Chloride Xl 5 Mg Tabcr) 5 mg PO QAM [facility] Stop: 08/11/24 08:59 Last Admin: 07/23/24 09:48 Dose: 5 mg Oxycodone HCl (Oxycodone Hcl Ir 5 Mg Tab (Immediate Release)) 5 mg PO Q4H PRN PRN Reason: pain Stop: 07/26/24 03:15 Last Admin: 07/15/24 20:43 Dose: 5 mg Pantoprazole Sodium (Pantoprazole 40 Mg Tab) 40 mg PO QAM [facility] Stop: 08/11/24 08:59 Last Admin: 07/23/24 09:48 Dose: 40 mg Polyethylene Glycol (Polyethylene (Miralax) 17 Gm Pack) 17 gm PO DAILY PRN PRN Reason: Constipation Stop: 08/11/24 03:15 Last Admin: 07/21/24 20:54 Dose: 17 gm Polyethylene Glycol (Polyethylene (Miralax) 17 Gm Pack) 119 gm PO TODAY@0100,1800 [facility] Stop: 07/24/24 01:01 Potassium Chloride (Potassium Chloride 10 Meq Tabcr) 10 meq PO BID [facility] Stop: 08/11/24 08:59 Last Admin: 07/23/24 09:46 Dose: 10 meq Umeclidinium [place] (Umeclidinium [place] 62.5mcg/Blister 7 Puffs/Inhaler) 1 puffs INH DAILY [facility] Stop: 08/11/24 08:59 Last Admin: 07/23/24 09:48 Dose: 1 puffs Vitamin D (Cholecalciferol 25 Mcg (1000 Units) Tab) 50 mcg PO DAILY [facility] Stop: 08/11/24 08:59 Last Admin: 07/23/24 09:47 Dose: 50 mcg
[2024-07-23 16:29] LABS: ANTI-Xa, UFH(UnfractionatedHep 0.35 IU/ml (0.3-0.7)
[2024-07-23] MEDS: POLYETHYLENE (MIRALAX) 17 GM PACK PO SCH (18:07)
--- NOTE | 2024-07-24 07:59 | Hospitalist Progress Note ---
Date of Service July 24, 2024 Assessment & Plan (1) SOB (shortness of breath): Plan: per previous hospitalist notes with addendum: 74-year-old female with past medical history significant for chronic respiratory failure with hypoxia on 2 to 3 L oxygen at home, dyslipidemia, hypothyroidism, chronic nonspecific lung disease, COPD, hypertension, CAD status post stent, atrial fibrillation, tobacco use disorder, general anxiety disorder, generalized osteoarthritis, migraines, ambulatory dysfunction who lives at home with her daughter comes because of shortness of breath and found to also be in rapid A- fib. Patient was recently in the hospital for UTI, abnormal EKG, abdominal discomfort and shortness of breath but signed out AMA. Today she was feeling very short of breath. She gave herself breathing treatment and en route she received 2 DuoNeb's. In the ER she was in rapid A-fib with rate of 164 and received couple doses of IV Cardizem. Currently heart rate is under control. Currently resting comfortably. Complains of mild headache. There is a bruise on the right eyelid and brow region and she says she rubbed the eye and denies any falls. No blurred vision. No earache. No runny nose. No sore throat. Has cough. Denies chest pain. Denies nausea. Has abdominal discomfort and poor appetite. Complains of loss of weight. Having diarrhea for couple of weeks. Stools are dark in color. Seems having some burning micturition. Hemodynamics are okay currently. COPD exacerbation Chronic respiratory failure with hypoxia on 2-3 l oxygen at home Chest x-ray no acute findings Respiratory BioFire negative 07/19 completed course of steroids, nebs Respiratory stable back to baseline 2 L nasal cannula Anemia Iron Deficiency - denies melena/hematochezia - iron: 15 - Vit B12 and Folic acid levels: normal - stool fecal occult ordered: positive - Venofer IV given - continue Protonix - monitor closely /8 Hg stable 7-8 no melena/ hematochezia observed so far continue Protonix Will need oral ferrous sulfate anticoagulation--> currently on heparin drip, plan to transition to Eliquis after Upper GI Endoscopy per GI, will proceed with endoscopy once cleared by cardiology--> no cardiac contraindication for Upper GI Endoscopy per Cardiology 07/21 pt did not finish prep - unable to proceed w/ endoscopy, discussed w/ GI, will try to continue w/ prep and plan for endoscopy tmrw 07/22 discussed w/ GI - will plan for endoscopy for Thursday, will go with miralax prep 07/24 Hgb 7.3 - blood consent obtained - will provide 1 unit of pRBC Rapid A-fib History of A-fib Received couple of doses of IV Cardizem in the ER Continue home Coreg. Question of recently reduced Coreg dose to 3.125 mg IV Lopressor as needed 07/19 per Cardiology: Patient is a poor candidate for amiodarone/antiarrhythmic therapy. Continue rate control with metoprolol succinate as presently prescribed. Resume apixaban (Eliquis) once bleeding risk evaluated (currently on heparin drip until Upper GI Endoscopy performed) -- Metoprolol increased, Losartan decreased Chest pain occurred over the weekend New septal T wave depressions Troponin x 1 negative Seems to have resolved after 2 doses of nitro Lopressor IV also given -- per Cardiology: Abnormal EKG, diffuse T wave abnormality on admission. 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 LVEF 55 to 60%. No wall motion abnormalities. High sensitivity troponin negative this admission. Recommend medical management. Mild elevation of troponin during admission Mostly demand ischemia trop 19--> 20--> 15 UTI Cultures growing Klebsiella and Staphylococcus epidermidis last admit completed Augmentin 7 day course while admitted no urinary symptoms per previous provider Overnight (07/19/2024) pt tachycardic and temp 37.7C, UA repeated, concern for UTI, started cefepime follow Ucultx Ucultx posit. for Pseudomonas, cont. cefepime Abdominal aortic aneurysm Ct abd/pelvis: Abdominal aortic aneurysm measuring approximately 3.3 cm in diameter. asymptomatic will need surveillance Ultrasound continue Plavix, Atorvastatin Diarrhea resolved Left elbow wound Since surgery of left distal humerus fracture in March 2024 Elbow xr: Status post ORIF supracondylar fracture of the distal left humerus with satisfactory positioning and alignment. No evidence of aggressive bone lesion or periosteal reaction. No elbow joint malalignment. Orthopedics consulted 07/16 per Ortho, Patient may have contaminated hardware in the left elbow Patient prefers to follow-up with [place] [facility] service She will need suppressive cephalexin or cefpodoxime per Ortho service Appreciate recommendations by Dr. Lua placed on suppressive therapy of Cephalexin BID + probiotics will need to closely follow up with Ortho at [place] 07/20 - per Dr. Lua Ordered CT scan to assess healing. Hardware intact. No abscess. Bone looks relatively well-healed to me. Once her acute needs are addressed here at [facility] I will help arrange to have her follow-up with the trauma surgeon at [place]. I have been in contact with them and they have suggested the CT and we can get her an outpatient appointment set up to further evaluate the elbow. Assess to see whether she needs suppressive antibiotics, whether the wound heals or she needs a hardware removal. History of CAD s/p stents On statin, Coreg, Plavix Hypertension On Metoprolol, losartan and Lasix with potassium supplement Hypothyroidism On Synthyroid GERD On Protonix Hyperlipidemia On statin Tobacco use Needs counseling Generalized anxiety disorder On citalopram and trazodone Beg bugs noted in pt's room - pt cleaned and rooms changed - daughter also notified over the phone DVT prophylaxis on heparin drip Disposition PT/OT recommending Acute Rehab patient prefers to go home with home health Admission and Anticipated Discharge Date Admission Date: July 12, 2024 Subjective Pt seen in follow-up for COPD exacerbation, atrial fibrillation, etc. ucultx posit for pseudomonas, cont. cefepime Currently pt is resting in bed, not in distress, however appears worse today, complains of feeling cold, also having trouble drinking miralax Denies chest pain, shortness of breath, palpitations, dizziness Denies cough No abdominal pain No other new symptoms discussed w/ GI - plan for endoscopy on Thursday, using miralax for prep Hgb 7.3 this AM - obtained consent for blood transfusion, will give 1 unit of pRBC, cont. to monitor H&H Review of Systems Review of Systems: All systems reviewed & are unremarkable except as noted in Subjective Physical Exam Physical Exam: General- oriented x 3, not in distress, speaks in sentences with no effort or accessory muscle use Eyes- anicteric Neck- no JVD Lungs- clear breath sounds bilaterally, no crackles/wheezing Heart- normal rate, regular rhythm; no murmurs Abdomen- normal bowel sounds, nondistended, soft, nontender Extremities- no pretibial edema, no calf tenderness Neuro- alert, oriented x 3; no gross focal neurologic deficits Skin- warm & dry Results & Data Results & Data Vital Signs (Past 12 Hours) Vital Signs Temp Pulse Resp BP Pulse Ox O2 Del Method O2 Flow Rate 07/24/24 07:05 36.5 C 91 H 18 100/70 93 Nasal Cannula 5 07/23/24 23:01 36.6 C 88 19 133/88 94 Nasal Cannula 5 07/23/24 22:00 Nasal Cannula 5 Laboratory Results 07/24/24 07/24/24 07/24/24 Range/Units 12:23 07:37 07:16 WBC 10.23 (4.8-10.8) K/ul RBC 2.62 L (4.20-5.40) M/uL Hgb 7.3 L (12.0-16.0) g/dl Hct 23.9 L (37.0-47.0) % MCV 91.2 (80.0-100.0) fL MCH 27.9 (25.0-34.0) pg MCHC 30.5 L (32.0-36.0) g/dL RDW Std Deviation 54.3 H (36.4-46.3) fL RDW Coeff of Chet 16.9 H (11.5-14.5) % Plt Count 370 (130-400) K/uL MPV 9.0 L (9.4-12.4) fL Heparin Anti-Xa, Unfract 0.16 L (0.3-0.7) IU/ml Sodium 135 L (136-145) mmol/L Potassium 4.0 (3.5-5.1) mmol/L Chloride 99 (98-107) mmol/L Carbon Dioxide 33 H (21-32) mmol/L Anion Gap 3 (3-11) BUN 11 (6-23) mg/dl Creatinine 0.73 (0.6-1.2) mg/dl Est Cr Clr Drug Dosing 46.8 ml/min eGFR 85.71 BUN/Creatinine Ratio 15.1 (10-20) Glucose 85 (70-99(Fasting)) mg/dl Calcium 8.2 L (8.6-10.3) mg/dl Phosphorus 2.2 L (2.5-4.9) mg/dl Magnesium 1.9 (1.7-2.4) mg/dl Blood Type O Positive Antibody Screen NEGATIVE Crossmatch See Detail 07/23/24 Range/Units 15:38 WBC (4.8-10.8) K/ul RBC (4.20-5.40) M/uL Hgb (12.0-16.0) g/dl Hct (37.0-47.0) % MCV (80.0-100.0) fL MCH (25.0-34.0) pg MCHC (32.0-36.0) g/dL RDW Std Deviation (36.4-46.3) fL RDW Coeff of Chet (11.5-14.5) % Plt Count (130-400) K/uL MPV (9.4-12.4) fL Heparin Anti-Xa, Unfract 0.35 (0.3-0.7) IU/ml Sodium (136-145) mmol/L Potassium (3.5-5.1) mmol/L Chloride (98-107) mmol/L Carbon Dioxide (21-32) mmol/L Anion Gap (3-11) BUN (6-23) mg/dl Creatinine (0.6-1.2) mg/dl Est Cr Clr Drug Dosing ml/min eGFR BUN/Creatinine Ratio (10-20) Glucose (70-99(Fasting)) mg/dl Calcium (8.6-10.3) mg/dl Phosphorus (2.5-4.9) mg/dl Magnesium (1.7-2.4) mg/dl Blood Type Antibody Screen Crossmatch Medications Administered Current Inpatient Medications Acetaminophen (Acetaminophen 325 Mg Tab) 650 mg PO Q4H PRN PRN Reason: Pain or Fever Stop: 08/11/24 03:15 Last Admin: 07/16/24 01:21 Dose: 650 mg Albuterol (Albuterol Hfa 8 Gm Inhaler) 2 puffs INH Q4 PRN PRN Reason: WHEEZING OR COUGH Stop: 08/11/24 03:15 Aspirin (Aspirin 81 Mg Ectab) 81 mg PO [facility] Stop: 08/13/24 08:59 Last Admin: 07/23/24 09:46 Dose: 81 mg Atorvastatin Calcium (Atorvastatin 40 Mg Tab) 40 mg PO [facility] Stop: 08/11/24 08:59 Last Admin: 07/23/24 09:47 Dose: 40 mg Citalopram Hydrobromide (Citalopram 20 Mg Tab) 40 mg PO [facility] Stop: 08/23/24 08:59 Fluticasone/Vilanterol (Fluticasone/Vilanterol 100/25mcg 14 Puffs/Inhaler) 1 puffs INH DAILY [facility] Stop: 08/11/24 08:59 Last Admin: 07/23/24 09:47 Dose: 1 puffs Furosemide (Furosemide 20 Mg Tab) 20 mg PO QAM [facility] Stop: 08/11/24 08:59 Last Admin: 07/23/24 09:46 Dose: 20 mg Gabapentin (Gabapentin 300 Mg Cap) 300 mg PO BID [facility] Stop: 08/11/24 08:59 Last Admin: 07/23/24 22:16 Dose: 300 mg Promethazine HCl (Phenergan) 6.25 mg in 50.25 mls @ 201 mls/hr IV Q6H PRN PRN Reason: Nausea And Vomiting Stop: 08/12/24 14:44 Last Infusion: 07/16/24 15:49 Dose: Infused Heparin Sodium/Dextrose (Heparin 68378 Unit/500 Ml D5w) 25,000 units in 500 mls @ 10 mls/hr IV .Q24H [facility]; Protocol Stop: 08/16/24 20:29 Last Titration: 07/23/24 09:40 Dose: 500 units/hr, 10 mls/hr Cefepime HCl (Maxipime 2000mg) 2,000 mg in 20 mls @ 5 mls/min IV Q12H [facility]; Protocol Stop: 07/30/24 17:59 Last Admin: 07/24/24 06:36 Dose: 5 mls/min Lactobacillus Acidophilus (Advanced Probiotic 625 Mg Capsule) 1,250 mg PO DAILY [facility] Stop: 08/15/24 17:59 Last Admin: 07/23/24 09:47 Dose: 1,250 mg Levalbuterol HCl (Levalbuterol Hcl 0.63 Mg/3 Ml Neb) 0.63 mg NEB Q4H PRN; Protocol PRN Reason: Shortness Of Breath Or Wheezing Stop: 08/11/24 03:15 Last Admin: 07/17/24 08:14 Dose: 0.63 mg Levalbuterol HCl (Levalbuterol Hcl 0.63 Mg/3 Ml Neb) 0.63 mg NEB QIDR PRN; Protocol PRN Reason: Shortness Of Breath Or Wheezing Stop: 08/11/24 06:59 Levothyroxine Sodium (Levothyroxine Sodium 25 Mcg Tablet) 25 mcg PO DAILYBB [facility] Stop: 08/11/24 06:29 Last Admin: 07/24/24 06:36 Dose: 25 mcg Losartan Potassium (Losartan Potassium 50 Mg Tab) 50 mg PO QAM [facility] Stop: 08/18/24 08:59 Last Admin: 07/22/24 22:21 Dose: 50 mg Magnesium Oxide (Magnesium Oxide 400 Mg Tab) 400 mg PO BID [facility] Stop: 08/20/24 08:59 Last Admin: 07/23/24 22:16 Dose: 400 mg Metoprolol Succinate (Metoprolol Succ 50mg Ext Rel Tab) 50 mg PO BID [facility] Stop: 08/17/24 20:59 Last Admin: 07/23/24 22:16 Dose: 50 mg Multivitamins (Multivitamin Tab) 1 tab PO DAILY [facility] Stop: 08/11/24 08:59 Last Admin: 07/23/24 09:48 Dose: 1 tab Nitroglycerin (Nitroglycerin Sl 0.4 Mg/Tab Tab) 0.4 mg SL Q5M PRN PRN Reason: Chest Pain Stop: 08/11/24 03:15 Last Admin: 07/17/24 10:13 Dose: 0.4 mg Oxybutynin Chloride (Oxybutynin Chloride Xl 5 Mg Tabcr) 5 mg PO QAM [facility] Stop: 08/11/24 08:59 Last Admin: 07/23/24 09:48 Dose: 5 mg Oxycodone HCl (Oxycodone Hcl Ir 5 Mg Tab (Immediate Release)) 5 mg PO Q4H PRN PRN Reason: pain Stop: 07/26/24 03:15 Last Admin: 07/15/24 20:43 Dose: 5 mg Pantoprazole Sodium (Pantoprazole 40 Mg Tab) 40 mg PO QAM [facility] Stop: 08/11/24 08:59 Last Admin: 07/23/24 09:48 Dose: 40 mg Polyethylene Glycol (Polyethylene (Miralax) 17 Gm Pack) 17 gm PO DAILY PRN PRN Reason: Constipation Stop: 08/11/24 03:15 Last Admin: 07/21/24 20:54 Dose: 17 gm Potassium Chloride (Potassium Chloride 10 Meq Tabcr) 10 meq PO BID [facility] Stop: 08/11/24 08:59 Last Admin: 07/23/24 22:16 Dose: 10 meq Umeclidinium Caraway (Umeclidinium Caraway 62.5mcg/Blister 7 Puffs/Inhaler) 1 puffs INH DAILY [facility] Stop: 08/11/24 08:59 Last Admin: 07/23/24 09:48 Dose: 1 puffs Vitamin D (Cholecalciferol 25 Mcg (1000 Units) Tab) 50 mcg PO DAILY [facility] Stop: 08/11/24 08:59 Last Admin: 07/23/24 09:47 Dose: 50 mcg
[2024-07-24 08:08] LABS: Hematocrit (blood only) 23.9 % (37.0-47.0); Hemoglobin 7.3 g/dl (12.0-16.0); Mean Corpuscular Hemoglobin 27.9 pg (25.0-34.0); Mean Corpuscular Hgb Conc 30.5 g/dL (32.0-36.0); Mean Corpuscular Volume 91.2 fL (80.0-100.0); Platelet Count 370 K/uL (130-400); RDW Coefficient of Variation 16.9 % (11.5-14.5); RDW Standard Deviation 54.3 fL (36.4-46.3); Red Blood Count 2.62 M/uL (4.20-5.40); White Blood Count 10.23 K/ul (4.8-10.8)
[2024-07-24 08:19] LABS: BUN Creatinine Ratio 15.1 (10-20); Calcium 8.2 mg/dl (8.6-10.3); Creatinine Clr Calc Pharmacy 46.8 ml/min; Magnesium 1.9 mg/dl (1.7-2.4); Phosphorus 2.2 mg/dl (2.5-4.9)
[2024-07-24 08:21] LABS: ANTI-Xa, UFH(UnfractionatedHep 0.16 IU/ml (0.3-0.7)
[2024-07-24] MEDS: HEPARIN SOD (PORCINE) 1000 UNIT/ML IV ONE (08:54)
[2024-07-24] MEDS: CITALOPRAM 20 MG TAB PO SCH (08:56)
[2024-07-24] MEDS ORDERED: SODIUM CHLORIDE 0.9% 100 ML IV PRN (11:23)
[2024-07-24] MEDS: SENNA 8.6 MG TAB PO SCH (12:36)
[2024-07-24] MEDS: bisacodyL 10 MG SUPP PR ONE (14:54)
[2024-07-24] MEDS: THIAMINE HCL 100 MG in SYRINGE 9 ML IV SCH (15:12)
[2024-07-24 16:16] LABS: ANTI-Xa, UFH(UnfractionatedHep 0.35 IU/ml (0.3-0.7)
[2024-07-24] MEDS: MAGNESIUM HYDROXIDE SUSP 30 ML UDC PO ONE (17:44)
[2024-07-24 20:01] LABS: Hematocrit (blood only) 28.5 % (37.0-47.0); Hemoglobin 8.8 g/dl (12.0-16.0)
[2024-07-25 02:54] VITALS: TEMP 97.7
[2024-07-25 07:32] LABS: Hematocrit (blood only) 33.6 % (37.0-47.0); Hemoglobin 10.4 g/dl (12.0-16.0); Mean Corpuscular Hemoglobin 27.8 pg (25.0-34.0); Mean Corpuscular Volume 89.8 fL (80.0-100.0); Mean Platelet Volume 9.2 fL (9.4-12.4); Platelet Count 364 K/uL (130-400); RDW Coefficient of Variation 19.2 % (11.5-14.5); Red Blood Count 3.74 M/uL (4.20-5.40); White Blood Count 10.48 K/ul (4.8-10.8)
[2024-07-25 08:06] VITALS: RESP 17
[2024-07-25 08:11] LABS: BUN Creatinine Ratio 11.9 (10-20); Calcium 9.1 mg/dl (8.6-10.3); Creatinine Clr Calc Pharmacy 40.7 ml/min; Magnesium 2.2 mg/dl (1.7-2.4); Phosphorus 2.2 mg/dl (2.5-4.9); Potassium 4.9 mmol/L (3.5-5.1)
[2024-07-25 08:38] LABS: ANTI-Xa, UFH(UnfractionatedHep 0.39 IU/ml (0.3-0.7)
--- NOTE | 2024-07-25 11:41 | Communication Note ---
Date of Service: July 25, 2024 GI has agreed to perform EGD/Colonoscopy for this patient, however she has not been able to agree with the necessary preparation for the procedure during her hospitalization. Consider outpatient colonoscopy in the absence of overt GI bleeding and stable blood counts. Discussed patient care with hospitalist.
[2024-07-25 12:09] VITALS: O2SAT 95
--- NOTE | 2024-07-25 14:58 | Discharge Summary ---
Date of Service July 25, 2024 Admission HPI Per Admitting Provider 74-year-old female with past medical history significant for chronic respiratory failure with hypoxia on 2 to 3 L oxygen at home, dyslipidemia, hypothyroidism, chronic nonspecific lung disease, COPD, hypertension, CAD status post stent, atrial fibrillation, tobacco use disorder, general anxiety disorder, generalized osteoarthritis, migraines, ambulatory dysfunction who lives at home with her daughter comes because of shortness of breath and found to also be in rapid A- fib. Patient was recently in the hospital for UTI, abnormal EKG, abdominal discomfort and shortness of breath but signed out AMA. Today she was feeling very short of breath. She gave herself breathing treatment and en route she received 2 DuoNeb's. In the ER she was in rapid A-fib with rate of 164 and received couple doses of IV Cardizem. Currently heart rate is under control. Currently resting comfortably. Complains of mild headache. There is a bruise on the right eyelid and brow region and she says she rubbed the eye and denies a ny falls. No blurred vision. No earache. No runny nose. No sore throat. Has cough. Denies chest pain. Denies nausea. Has abdominal discomfort and poor appetite. Complains of loss of weight. Having diarrhea for couple of weeks. Stools are dark in color. Seems having some burning micturition. Hemodynamics are okay currently. Past medical history. As mentioned above Past surgical history. Bone marrow aspiration. Colonoscopy. Exploration of abdomen. Ligation oviducts. Appendectomy. Cholecystectomy. Left repair of ruptured rotator cuff. Sigmoidoscopy with biopsy. Social history. . Smoked 0.6 pack a day for 70 years. No alcohol use. No drug use. Family history. Mother had diabetes. A-fib. Hypertension. Stroke. Aunt had breast cancer. Paternal grandfather had lung cancer. Father had diabetes. Brain cancer. Admission Exam Per Admitting Provider General- Not in distress Head- atraumatic Eyes- PERRL. ENT- oropharynx clear Neck- supple, no JVD. Lungs- diminished b/l breath sounds, no wheezing or crackles Heart- irregular rhythm; no murmur, no gallop. Abdomen- normal bowel sounds, soft, mild diffuse abdominal discomfort, no distension Extremities- no pretibial edema, no erythema seen Neuro- alert, oriented PERRL, no facial palsy; no dysarthria; moves extre mities Principal Diagnosis COPD exacerbation Atrial fibrillation w/ RVR Discharge Exam General- oriented x 3, not in distress, speaks in sentences with no effort or accessory muscle use Eyes- anicteric Neck- no JVD Lungs- clear breath sounds bilaterally, no crackles/wheezing Heart- normal rate, regular rhythm; no murmurs Abdomen- normal bowel sounds, nondistended, soft, nontender Extremities- no pretibial edema, no calf tenderness Neuro- alert, oriented x 3; no gross focal neurologic deficits Skin- warm & dry Discharge Data Allergies Allergy/AdvReac Type Severity Reaction Status Date / Time bee venom protein (honey bee) Allergy Severe SWELLING Verified 01/30/24 16:12 SEVERE doxycycline Allergy Intermediate Vomiting Verified 01/30/24 16:12 Consultations 07/12/24 01:03 ED Decision to Admit Stat 07/12/24 08:00 Consult Cardiology Routine 07/13/24 14:07 Consult Orthopedic Surgery Routine 07/17/24 12:01 Consult Gastroenterology Routine 07/19/24 10:21 Consult Patient Rep [Consult Patient Services] Routine Procedures Performed Operation Date: 07/21/24 16:45 <No data on this case meets the specified criteria> Ordered Studies 07/12/24 03:16 CT head/brain wo con Routine IMPRESSION: 1. No evidence of acute intracranial abnormality is demonstrated. 2. Chronic microvascular ischemic changes. 3. Cerebral atrophy. 4. Complete resolution of the previously seen left anterior frontal subcutaneous hematoma is noted. No significant interval new findings detected. 07/20/24 15:07 CT elbow LT wo con Routine Findings: Again seen is internal fixation of the distal humeral shaft, metaphysis, and condyles with fixation plates and screws. There is no definite sign of infection or loosening. No definite new fracture is identified. No subluxation or dislocation is seen. There are no significant arthritic changes. No focal osseous lesion is evident There is an apparent soft tissue ulceration or surgical wound along the lateral aspect of the elbow. The visualized musculature appears unremarkable. No definite soft tissue mass or focal fluid collection is seen. No foreign body is evident Impression: 1. Unchanged internal fixation of the distal left humerus 2. Surgical wound or soft tissue ulceration laterally. No clear abscess, hematoma, or foreign body is seen Hospital Course (1) SOB (shortness of breath): 74-year-old female with past medical history significant for chronic respiratory failure with hypoxia on 2 to 3 L oxygen at home, dyslipidemia, hypothyroidism, chronic nonspecific lung disease, COPD, hypertension, CAD status post stent, atrial fibrillation, tobacco use disorder, general anxiety disorder, generalized osteoarthritis, migraines, ambulatory dysfunction who lives at home with her daughter comes because of shortness of breath and found to also be in rapid A- fib. Patient was recently in the hospital for UTI, abnormal EKG, abdominal discomfort and shortness of breath but signed out AMA. Today she was feeling very short of breath. She gave herself breathing treatment and en route she received 2 DuoNeb's. In the ER she was in rapid A-fib with rate of 164 and received couple doses of IV Cardizem. Currently heart rate is under control. Currently resting comfortably. Complains of mild headache. There is a bruise on the right eyelid and brow region and she says she rubbed the eye and denies any falls. No blurred vision. No earache. No runny nose. No sore throat. Has cough. Denies chest pain. Denies nausea. Has abdominal discomfort and poor appetite. Complains of loss of weight. Having diarrhea for couple of weeks. Stools are dark in color. Seems having some burning micturition. Hemodynamics are okay currently. COPD exacerbation Chronic respiratory failure with hypoxia on 2-3 L oxygen at home Chest x-ray no acute findings Respiratory BioFire negative 07/19 completed course of steroids, nebs Respiratory stable back to baseline 2 L nasal cannula Anemia Iron Deficiency - denies melena/hematochezia - iron: 15 - Vit B12 and Folic acid levels: normal - stool fecal occult ordered: positive - Venofer IV given - continue Protonix - monitor closely 07/19 Hg stable 10-18 no melena/ hematochezia observed so far continue Protonix Will need oral ferrous sulfate anticoagulation--> currently on heparin drip, plan to transition to Eliquis after Upper GI Endoscopy per GI, will proceed with endoscopy once cleared by cardiology--> no cardiac contraindication for Upper GI Endoscopy per Cardiology 07/21 pt did not finish prep - unable to proceed w/ endoscopy, discussed w/ GI, will try to continue w/ prep and plan for endoscopy tmrw 07/22 discussed w/ GI - will plan for endoscopy for Thursday, will go with miralax prep 07/24 Hgb 7.3 - blood consent obtained - will provide 1 unit of pRBC -> Hgb 8.8 PM (after 1 unit of pRBC) 07/25 Hgb 10.4 Pt not able to finish prep for endoscopy at this time. Had a prolonged discussion with the pt and her daughter at the bedside, and RN present at the bedside as well. Also discussed with GI. Pt prefer to be discharged and try to do outpt endoscopy instead. Through shared -decision making - pt will be discharged home and will closely follow up with outpt providers, including GI. Rapid A-fib History of A-fib Received couple of doses of IV Cardizem in the ER Continue home Coreg. Question of recently reduced Coreg dose to 3.125 mg IV Lopressor as needed 07/19 per Cardiology: Patient is a poor candidate for amiodarone/antiarrhythmic therapy. Continue rate control with metoprolol succinate as presently prescribed. Resume apixaban (Eliquis) once bleeding risk evaluated (currently on heparin drip until Upper GI Endoscopy performed) -- Metoprolol increased, Losartan decreased Chest pain occurred over the weekend New septal T wave depressions Troponin x 1 negative Seems to have resolved after 2 doses of nitro Lopressor IV also given -- per Cardiology: Abnormal EKG, diffuse T wave abnormality on admission. Resting echocardiography this admission with apical thickening, possible apical hypertrophic car diomyopathy. LVEF 55 to 60%. No wall motion abnormalities. High sensitivity troponin negative this admission. Recommend medical management. Mild elevation of troponin during admission Mostly demand ischemia trop 19--> 20--> 15 UTI Cultures growing Klebsiella and Staphylococcus epidermidis last admit completed Augmentin 7 day course while admitted no urinary symptoms per previous provider Overnight (07/19/2024) pt tachycardic and temp 37.7C, UA repeated, concern for UTI, started cefepime follow Ucultx Ucultx posit. for Pseudomonas, cont. cefepime while inpt Abdominal aortic aneurysm Ct abd/pelvis: Abdominal aortic aneurysm measuring approximately 3.3 cm in diameter. asymptomatic will need surveillance Ultrasound continue Plavix, Atorvastatin Diarrhea resolved Left elbow wound Since surgery of left distal humerus fracture in March 2024 Elbow xr: Status post ORIF supracondylar fracture of the distal left humerus with satisfactory positioning and alignment. No evidence of aggressive bone lesion or periosteal reaction. No elbow joint malalignment. Orthopedics consulted 07/16 per Ortho, Patient may have contaminated hardware in the left elbow Patient prefers to follow-up with [facility] She will need suppressive cephalexin or cefpodoxime per Ortho service Appreciate recommendations by Dr. Lua placed on suppressive therapy of Cephalexin BID + probiotics will need to closely follow up with Ortho at [facility] 07/20 - per Dr. Lua Ordered CT scan to assess healing. Hardware intact. No abscess. Bone looks relatively well-healed to me. Once her acute needs are addressed here at [facility] I will help arrange to have her follow-up with the trauma surgeon at [facility]. I have been in contact with them and they have suggested the CT and we can get her an outpatient appointment set up to further evaluate the elbow. Assess to see whether she needs suppressive antibiotics, whether the wound heals or she needs a hardware removal. History of CAD s/p stents On statin, Coreg, Plavix Hypertension On Metoprolol, losartan and Lasix with potassium supplement Hypothyroidism On Synthyroid GERD On Protonix Hyperlipidemia On statin Tobacco use Needs counseling Generalized anxiety disorder On citalopram and trazodone Beg bugs noted in pt's room - pt cleaned and rooms changed - daughter also notified over the phone DVT prophylaxis on heparin drip Disposition PT/OT recommending Acute Rehab patient prefers to go home with home health Total Time Total Time Spent Total Time Spent (In Minutes): 40 Discharge Plan Discharge Items Patient Disposition: Home - Self-Care Reason For Visit: SOB, RAPID A FIB Discharge Diagnosis: COPD exacerbation Atrial fibrillation w/ RVR Activity: Per Instructions section Non-emergency contact: Primary Care Provider and Specialist Call non-emergency contact if: you have any medication questions and your symptoms worsen Follow-up/Referrals: Ronald Cortes MD [Primary Care Provider] - (Date & Time 07/29/2024 3:00 PM Provider: Ronald Cortes MD [facility] ) Diet: Regular Addtl Attending Provider Instructions: Follow up with your primary care doctor within 1 week. The appointment was scheduled for you for 07/29/2024. Stop taking carvedilol, start taking metoprolol as prescribed. Your losartan dose was decreased to 25 mg daily. It is recommended that you have upper endoscopy/ colonoscopy done - discuss this with your primary care physician. You will also need to follow up with orthopedic surgery - at [facility]. Pending Studies at Discharge: No Stand-Alone Forms: My [facility], Smoking Cessation Medications and DC Order Prescriptions: New aspirin 81 mg Tablet,Delayed Release (Dr/Ec) 81 mg PO QAM Qty: 30 0RF losartan 25 mg Tablet 25 mg PO QAM Qty: 30 0RF metoprolol succinate 25 mg Tablet Extended Release 24 Hr 37.5 mg PO BID Qty: 60 0RF Continued multivitamin Tablet 1 tab PO DAILY Qty: 0 omega [id number]-fish oil [Fish Oil] 1,000 mg (120 mg-180 mg) Capsule 1 cap PO DAILY Qty: 0 magnesium oxide 400 mg magnesium Tablet 400 mg PO BID Qty: 0 atorvastatin 40 mg tablet 40 mg PO QAM citalopram 40 mg tablet 40 mg PO QAM clopidogrel 75 mg tablet 75 mg PO QAM levothyroxine 25 mcg tablet 25 mcg PO DAILYBB oxybutynin chloride 5 mg tablet extended release 24hr 5 mg PO QAM Hold Instructions: Resume on 07/13/24. gabapentin 300 mg capsule 300 mg PO BID potassium chloride [Klor-Con M10] 10 mEq tablet,ER particles/crystals 10 meq PO [facility] fluticasone propion-salmeterol 115-21 mcg/actuation HFA aerosol inhaler 2 puff INHALATION [facility] Eliquis 5 mg tablet 5 mg PO BID nitroglycerin [Nitrostat] 0.4 mg Tablet, Sublingual 0.4 mg sublingual Q5M PRN (Reason: chest pain) Qty: 30 0RF ipratropium-albuterol 0.5 mg-3 mg(2.5 mg base)/3 mL Solution For Nebulization 3 ml NEB QIDR PRN (Reason: shortness of breath) Qty: 90 0RF albuterol sulfate 90 mcg/actuation HFA aerosol inhaler 2 puff INHALATION Q4 PRN (Reason: WHEEZING OR COUGH) pantoprazole [Protonix] 40 mg tablet,delayed release (DR/EC) 40 mg PO QAM alendronate 70 mg tablet 70 mg PO WK Rx Instructions: on mondays furosemide 40 mg tablet 20 mg PO QAM cholecalciferol (vitamin D3) [Vitamin D3] 50 mcg (2,000 unit) Tablet 50 mcg PO DAILY oxycodone 5 mg Tablet 5 mg PO Q4H PRN (Reason: pain) Qty: 15 0RF Incruse Ellipta 62.5 mcg/actuation Blister With Device 1 inh inhalation DAILY Qty: 30 0RF tiotropium bromide 18 mcg capsule, w/inhalation device 1 cap INHALATION QAM phenazopyridine [Pyridium] 200 mg Tablet 200 mg PO TID PRN (Reason: pain) Qty: 30 0RF Discontinued losartan 50 mg Tablet 100 mg PO QAM Qty: 30 0RF carvedilol 6.25 mg Tablet 6.25 mg PO BID Qty: 60 0RF amoxicillin-pot clavulanate [Augmentin] 500-125 mg tablet 1 tab PO BID 7 Days Qty: 14 0RF Discharge Orders: Discharge Order (Routine); Ordered 07/25/24 Ordered By: Jose Capps Admission Data Admit Date/Time: 07/12/24 01:51 Attending Provider: Jose Capps Admit Provider: Adan Shelton Primary Care Provider: Ronald Cortes Other Providers: Adan Shelton; Carlos Melendrez; Mervin Chandra; Morro Calderon; Ruma Fang; Bertha Jim; Jesus Williamson; Yomi Reid; Darrell Lua; Darrell Galindo; Tresa Garcia; Sebastian Yoder; mAena Otoole; Berto Rodriguez; Elisabet Tracy; Addy Spring; Scout Mccann; [facility]; Dennis Robledo; Abdirizak Howard; Mya Irvin; Itzel Aquino; Alma Cole; Phyllis Khalil; Jorge Peters; Joanna Browne; Edwin Baron; Paul Munoz; Annamarie Williamson; Christina Miranda; Devi Vazquez; Adilene Arreola; Meera Newton; Jose L Leyva; Alexey Adamson; Elisabet Spring; Moses Arevalo Jr; Moisés Raya.; Francisco Salcedo; Bal Delcid; Sandoval Durham; Debra Oconnell; Miguel Orr I; Dayan Cardona; Hayden Aguilera; Luke Parsons; Rogers Burnham
[2024-07-25] MEDS: METOPROLOL TARTRATE 1 MG/ML VIAL IV STA (17:22)
[2024-07-25] MEDS: APIXABAN 5 MG TABLET PO ONE (18:24)
[2024-07-25] MEDS: METOPROLOL SUCC 25MG EXT REL TAB PO ONE (18:24)
[2024-07-25 18:30] VITALS: BP 107/66; PULSE 84
[2024-07-25] MEDS ORDERED: CIPROFLOXACIN 500 MG TAB PO SCH (21:00)
[2024-07-25] MEDS ORDERED: METOPROLOL SUCC 25MG EXT REL TAB PO SCH (21:00)
[2024-07-26] MEDS ORDERED: LOSARTAN POTASSIUM 25 MG TAB PO SCH (09:00)
== END 2024-07-25 18:53 | disposition home health service (06) | DRG 190 ==
LOC: ED 22:36 → 2S 07-12 01:51 → SUATTDRO 07-12 01:51 → 2S 07-12 02:35

== ENCOUNTER 2024-08-22 10:46 | Inpatient (IN) ==
--- NOTE | 2024-08-22 10:59 | Emergency Department Note ---
ED DC CONDITION Conditon at Discharge Condition at Discharge: Fair Impression & Plan Sepsis, COPD with exacerbation, Atrial fibrillation with RVR, UTI (urinary tract infection) ED Provider Note Name: JJ TORREZ Age: 74 Sex: Female Arrives Via: Ambulance Informant: Patient, EMS ED Provider: Kane Zhu MD Chief Complaint: weakness Impression: As per impressions above Medical Decision Makin-year-old female with a history of COPD and A-fib arrives for evaluation of worsening generalized weakness at home last seen her normal self about 4 days ago and is now too weak to get up. On arrival patient is significantly tachycardic but also with relatively poor lung sounds requiring oxygen. Patient was given a dose of IV Lopressor along with some IV fluids while at the same time steroids and magnesium started. This was followed by a EndyoNeb lunch heart rate had started coming down. She received some further IV fluids as workup progressed. Fortunately blood pressure remained stable if not a bit elevated. Heart rate came down nicely. Chest x- ray without clear evidence of infiltrate. She does have a straight cath UA that is concerning for infection. Given previous infections we will treat with Zosyn. Patient with an elevated white blood cell count, elevated lactic acid and hypoxia with concern for infection and thus high concern for sepsis. She was treated for severe sepsis with IV fluids and empiric IV antibiotics that were given following the blood cultures and lactate. Sepsis resuscitation: Patient was given 1.5 L normal saline bolus IV for management of sepsis. Sepsis reevaluation: A sepsis reevaluation examination completed by me at 2 PM. Blood pressure and heart rate have improved. Patient is breathing comfortably. No indication for vasopressors indicated at this time. Triage/Nursing Notes reviewed by Me External Chart Review by me: Discharge summary from 07/25/2024 at this facility was reviewed by me for recent management Differential:Infection, dehydration, metabolic abnormality, hypo/hyperglycemia, electrolyte disturbance, anemia, hypoxia, cardiac sources, intracerebral event, toxicologic, neurologic, as well as other pathologies. Vital Signs: reviewed and remarkable for tachycardia, hypoxia Interventions: Lopressor 5 mg IV, 1.5 L normal saline bolus, magnesium IV, Decadron IV, DuoNeb, Zosyn IV. Labs:ED labs Reviewed by me and remarkable for elevated lactate, elevated white blood cell count, urinalysis concerning for UTI Imagin view chest x-ray as per my interpretation no infiltrate or effusion appreciated. EKG as per my interpretation indication generalized weakness. A-fib RVR at 166 bpm QTc of 468. There are some lateral ST depressions but no overt ST elevation. Compared to EKG of July 17, 2022 heart rate has increased and there are now new depressions laterally. Cardiac/Tele Monitoring: Cardiac Monitoring: An Order was placed for continuous cardiac monitoring. The monitor shows a rate of 100 with a afib rhythm. Cons[facility] who will further evaluate and manage. Plan: Disposition:Hospitalization. Condition: Fair History of Present Illness: 74-year-old female arrives for evaluation of generalized weakness. Patient has reportedly been doing well at home with home health every 4 days. When she was seen 4 days ago there did not seem to be an issue. Today when home health arrived they noticed that she had not really been out of bed in the last few days. Patient states she just feels weak. She complains of some mild epigastric discomfort. Is unsure when she last ate. She notes she has not smoked a cigarette in a few days because she is not feeling well. Denies any fevers, vomiting, chest pain, back pain, leg swelling or other concerning signs or symptoms. Believes she is taking her medications. Past Medical History:See Below Home Medications:See Below Allergies:See Below Vitals:Blood Pressure: 173/129, Pulse 157, RR 22, T 37.3C, O2 99% on 3L Physical Exam: GENERAL: Patient is unwell appearing and in moderate distress. Cachectic and dehydrated. RESPIRATORY: Diffusely tight lung sounds all vazquez. Moderate dyspnea/tachypnea. CARDIOVASCULAR: Tachycardia irregular.No murmur appreciated. GASTROINTESTINAL: Abdomen soft, non-tender, no peritonitis. EXTREMITIES: Normal motion all extremities, no cyanosis, no edema. NEUROLOGIC: Alert and oriented with mild confusion regarding recent events. No focal neurologic deficits appreciated SKIN: No rash, no jaundice, no diaphoresis. PSYCH: Appropriate GCS: 15 ED Course: Times/Reassessments: Multiple repeat evaluations of patient throughout the stay. She is feeling much better after heart rate controlled and breathing a bit better. Critical Care: I have personally spent 40 minutes of critical care time in the direct management of this patient. Afib RVR with underlying sepsis secondary to UTI, as well as COPD Exacerbation, requiring resuccitation. This was a life/limb threatening event. This 40 minutes is in excess of all separately billable procedures. Kane Zhu MD Past Med/Surg History Problem List (Updated 08/22/24 @ 18:31 by Kane Zhu MD) Sepsis (Acute) UTI (urinary tract infection) (Acute) Atrial fibrillation with RVR (Acute) S/P ORIF (open reduction internal fixation) fracture Anticoagulant long-term use (Acute) Fracture of distal end of left humerus (Acute) COPD with exacerbation (Acute) Dyslipidemia, goal LDL below 70 Hypokalemia (Acute) Medical History (Updated 08/22/24 @ 18:31 by Kane Zhu MD) Chronic hypoxic respiratory failure Hypothyroidism CAD (coronary artery disease) 2022 - STEMI w/ RCA interventions Anemia COPD (chronic obstructive pulmonary disease) PAF (paroxysmal atrial fibrillation) HTN (hypertension) Myocardial infarction due to demand ischemia Non-ST elevation VA (NSTEMI) Macular degeneration Tobacco use disorder Atrial fibrillation Diabetes Surgical History (Updated 08/09/24 @ 00:07 by Papito Parham) H/O heart surgery History of cholecystectomy Hx of tubal ligation Social History Smoking Status: Current every day smoker Tobacco Type: Cigarettes Cigarettes Per Day: 5; Second Hand Exposure: No; Do You Dip or Chew Tobacco: No; Tobacco Cessation Education Requested by Patient: No Hx Alcohol Use: No Hx Substance Use: No Preferred Language: Slovak Communication Ability: Effective Sample Distributor Required: No Beliefs That Will Affect Care: None Current Living Situation: Family Current Living Situation Comment: with daughter Other Information That Helps Us Care for You: No Feels Safe at Home: Yes Safety Concerns: Feels Safe At This Time Assistive Devices: Oxygen - Continuous, Walker and Wheelchair Allergies Allergies Allergy/AdvReac Type Severity Reaction Status Date / Time bee venom protein (honey bee) Allergy Severe SWELLING Verified 01/30/24 16:12 SEVERE doxycycline Allergy Intermediate Vomiting Verified 01/30/24 16:12 Home Meds Home Medications Medication Instructions Recorded Confirmed multivitamin 1 tab PO DAILY #0 tabs 02/07/14 08/22/24 omega 3-xps-rfb-fish oil 1,000 mg 1 cap PO DAILY #0 caps 04/22/17 08/22/24 (120 mg-180 mg) capsule (Fish Oil) magnesium oxide 400 mg PO BID #0 tabs 06/01/17 08/22/24 apixaban 5 mg tablet (Eliquis) 5 mg PO BID 12/06/23 08/22/24 atorvastatin 40 mg tablet 40 mg PO QAM 12/06/23 08/22/24 citalopram 40 mg tablet 40 mg PO QAM 12/06/23 08/22/24 clopidogrel 75 mg tablet 75 mg PO QAM 12/06/23 08/22/24 fluticasone propionate 115 2 puff inhalation AMHS 12/06/23 08/22/24 mcg-salmeterol 21 mcg/actuation HFA inhaler gabapentin 300 mg capsule 300 mg PO BID 12/06/23 08/22/24 levothyroxine 25 mcg tablet 25 mcg PO DAILYBB 12/06/23 08/22/24 oxybutynin chloride 5 mg 5 mg PO QAM 12/06/23 08/22/24 tablet,extended release 24 hr potassium chloride 10 mEq 10 meq PO AMHS 12/06/23 08/22/24 tablet,extended release(part/cryst) (Klor-Con M) albuterol sulfate 90 mcg/actuation 2 puff inhalation Q4 PRN WHEEZING 01/30/24 08/22/24 aerosol inhaler OR COUGH pantoprazole 40 mg tablet,delayed 40 mg PO QAM 01/30/24 08/22/24 release (Protonix) tiotropium bromide 18 mcg capsule 1 cap inhalation QAM 03/02/24 08/22/24 with inhalation device alendronate 70 mg tablet 70 mg PO WK 03/15/24 08/22/24 cholecalciferol (vitamin D3) 50 50 mcg PO DAILY 03/24/24 08/22/24 mcg (2,000 unit) tablet (Vitamin D3) furosemide 40 mg tablet 20 mg PO QAM 03/24/24 08/22/24 Previous Rx's Medication Instructions Recorded nitroglycerin 0.4 mg sublingual 0.4 mg sublingual Q5M PRN chest 12/09/23 tablet (Nitrostat) pain #30 tabs ipratropium 0.5 mg-albuterol 3 mg 3 ml NEB QIDR PRN shortness of 12/28/23 (2.5 mg base)/3 mL nebulization breath #90 mL soln oxycodone 5 mg tablet 5 mg PO Q4H PRN pain #15 tabs 04/01/24 phenazopyridine 200 mg tablet 200 mg PO TID PRN pain #30 tabs 07/09/24 (Pyridium) aspirin 81 mg tablet,delayed 81 mg PO QAM #30 tabs 07/25/24 release losartan 25 mg tablet 25 mg PO QAM #30 tabs 07/25/24 metoprolol succinate 25 mg 37.5 mg (1.5 x 25 mg) PO BID #60 07/25/24 tablet,extended release 24 hr tabs Results & Data (ED) Vital Signs Vital Signs - 24 hr 08/22/24 10:51 08/22/24 10:51 08/22/24 10:51 Temperature Temperature Source Pulse Rate 157 H Pulse Rate [Apical] Pulse Rate from SpO2 Sensor Respiratory Rate 22 Respiratory Effort / Characteristics Blood Pressure 173/129 H 173/129 H Blood Pressure [Right Arm] Blood Pressure Mean 139 139 Blood Pressure Mean [Right Arm] Blood Pressure Position Blood Pressure Position [Right Arm] Pulse Oximetry Oxygen Delivery Method Nasal Cannula Oxygen Flow Rate 3 Sepsis Recent Fever Within 48 Hours Sepsis New/Unexplained Change in Mental Status Sepsis Action Taken by Nursing 08/22/24 11:08/22/24 11:00 08/22/24 11:00 Temperature 37.3 C 37.3 C Temperature Source Oral Oral Pulse Rate 153 H 153 H Pulse Rate [Apical] 153 H Pulse Rate from SpO2 Sensor Respiratory Rate 16 16 16 Respiratory Effort / Characteristics Non-Labored Spontaneous Non-Labored Spontaneous Blood Pressure 173/129 H Blood Pressure [Right Arm] 173/129 H Blood Pressure Mean 143 Blood Pressure Mean [Right Arm] 143 Blood Pressure Position Lying Blood Pressure Position [Right Arm] Pulse Oximetry 99 99 99 Oxygen Delivery Method Nasal Cannula Nasal Cannula Nasal Cannula Oxygen Flow Rate 3 3 3 Sepsis Recent Fever Within 48 Hours No Sepsis New/Unexplained Change in Mental Status No Sepsis Action Taken by Nursing No Action Required 08/22/24 11:00 08/22/24 11:00 08/22/24 11:00 Temperature Temperature Source Pulse Rate Pulse Rate [Apical] 153 H Pulse Rate from SpO2 Sensor Respiratory Rate 16 Respiratory Effort / Characteristics Non-Labored Spontaneous Blood Pressure Blood Pressure [Right Arm] 173/129 H Blood Pressure Mean Blood Pressure Mean [Right Arm] 143 Blood Pressure Position Blood Pressure Position [Right Arm] Lying Pulse Oximetry 99 99 99 Oxygen Delivery Method Nasal Cannula Nasal Cannula Room Air Oxygen Flow Rate 3 3 Sepsis Recent Fever Within 48 Hours Sepsis New/Unexplained Change in Mental Status Sepsis Action Taken by Nursing 08/22/24 11:06 08/22/24 11:10 08/22/24 11:16 Temperature Temperature Source Pulse Rate 154 H 138 H Pulse Rate [Apical] Pulse Rate from SpO2 Sensor Respiratory Rate Respiratory Effort / Characteristics Blood Pressure 167/145 H 157/120 H Blood Pressure [Right Arm] Blood Pressure Mean 121 Blood Pressure Mean [Right Arm] Blood Pressure Position Blood Pressure Position [Right Arm] Pulse Oximetry Oxygen Delivery Method Oxygen Flow Rate Sepsis Recent Fever Within 48 Hours Sepsis New/Unexplained Change in Mental Status Sepsis Action Taken by Nursing 08/22/24 11:16 08/22/24 11:21 08/22/24 11:27 Temperature Temperature Source Pulse Rate 126 H 104 H Pulse Rate [Apical] Pulse Rate from SpO2 Sensor 104 H Respiratory Rate 12 Respiratory Effort / Characteristics Blood Pressure 157/120 H 157/120 H Blood Pressure [Right Arm] Blood Pressure Mean 121 Blood Pressure Mean [Right Arm] Blood Pressure Position Blood Pressure Position [Right Arm] Pulse Oximetry 100 Oxygen Delivery Method Oxygen Flow Rate Sepsis Recent Fever Within 48 Hours Sepsis New/Unexplained Change in Mental Status Sepsis Action Taken by Nursing 08/22/24 11:30 08/22/24 11:30 08/22/24 11:36 Temperature Temperature Source Pulse Rate 113 H Pulse Rate [Apical] Pulse Rate from SpO2 Sensor Respiratory Rate 16 Respiratory Effort / Characteristics Blood Pressure 165/125 H 165/125 H Blood Pressure [Right Arm] Blood Pressure Mean 129 129 Blood Pressure Mean [Right Arm] Blood Pressure Position Blood Pressure Position [Right Arm] Pulse Oximetry Oxygen Delivery Method Oxygen Flow Rate Sepsis Recent Fever Within 48 Hours Sepsis New/Unexplained Change in Mental Status Sepsis Action Taken by Nursing 08/22/24 11:42 08/22/24 11:51 08/22/24 11:57 Temperature Temperature Source Pulse Rate 98 H 107 H 104 H Pulse Rate [Apical] Pulse Rate from SpO2 Sensor Respiratory Rate 22 14 19 Respiratory Effort / Characteristics Blood Pressure Blood Pressure [Right Arm] Blood Pressure Mean Blood Pressure Mean [Right Arm] Blood Pressure Position Blood Pressure Position [Right Arm] Pulse Oximetry 97 Oxygen Delivery Method Oxygen Flow Rate Sepsis Recent Fever Within 48 Hours Sepsis New/Unexplained Change in Mental Status Sepsis Action Taken by Nursing 08/22/24 12:00 08/22/24 12:01 08/22/24 12:06 Temperature Temperature Source Pulse Rate 103 H Pulse Rate [Apical] Pulse Rate from SpO2 Sensor 101 H Respiratory Rate 16 Respiratory Effort / Characteristics Blood Pressure 153/103 H Blood Pressure [Right Arm] Blood Pressure Mean 120 Blood Pressure Mean [Right Arm] Blood Pressure Position Blood Pressure Position [Right Arm] Pulse Oximetry 99 100 Oxygen Delivery Method Nasal Cannula Oxygen Flow Rate 3 Sepsis Recent Fever Within 48 Hours Sepsis New/Unexplained Change in Mental Status Sepsis Action Taken by Nursing 08/22/24 12:15 08/22/24 12:15 08/22/24 12:15 Temperature Temperature Source Pulse Rate Pulse Rate [Apical] Pulse Rate from SpO2 Sensor Respiratory Rate Respiratory Effort / Characteristics Blood Pressure 138/101 H 138/101 H 138/101 H Blood Pressure [Right Arm] Blood Pressure Mean 106 106 106 Blood Pressure Mean [Right Arm] Blood Pressure Position Blood Pressure Position [Right Arm] Pulse Oximetry Oxygen Delivery Method Oxygen Flow Rate Sepsis Recent Fever Within 48 Hours Sepsis New/Unexplained Change in Mental Status Sepsis Action Taken by Nursing 08/22/24 12:15 08/22/24 12:27 08/22/24 12:31 Temperature Temperature Source Pulse Rate 111 H 113 H Pulse Rate [Apical] Pulse Rate from SpO2 Sensor 113 H 111 H Respiratory Rate 23 22 Respiratory Effort / Characteristics Blood Pressure 120/72 Blood Pressure [Right Arm] Blood Pressure Mean 80 Blood Pressure Mean [Right Arm] Blood Pressure Position Blood Pressure Position [Right Arm] Pulse Oximetry 100 100 Oxygen Delivery Method Oxygen Flow Rate Sepsis Recent Fever Within 48 Hours Sepsis New/Unexplained Change in Mental Status Sepsis Action Taken by Nursing 08/22/24 12:31 08/22/24 12:33 08/22/24 12:36 Temperature Temperature Source Pulse Rate 107 H 115 H Pulse Rate [Apical] Pulse Rate from SpO2 Sensor 117 H 112 H Respiratory Rate 22 17 Respiratory Effort / Characteristics Blood Pressure 120/72 Blood Pressure [Right Arm] Blood Pressure Mean 80 Blood Pressure Mean [Right Arm] Blood Pressure Position Blood Pressure Position [Right Arm] Pulse Oximetry 99 100 Oxygen Delivery Method Oxygen Flow Rate Sepsis Recent Fever Within 48 Hours Sepsis New/Unexplained Change in Mental Status Sepsis Action Taken by Nursing 08/22/24 12:46 08/22/24 12:54 08/22/24 13:00 Temperature Temperature Source Pulse Rate 102 H 98 H Pulse Rate [Apical] Pulse Rate from SpO2 Sensor 112 H 103 H Respiratory Rate 22 22 Respiratory Effort / Characteristics Blood Pressure 147/108 H Blood Pressure [Right Arm] Blood Pressure Mean 118 Blood Pressure Mean [Right Arm] Blood Pressure Position Blood Pressure Position [Right Arm] Pulse Oximetry 96 Oxygen Delivery Method Oxygen Flow Rate Sepsis Recent Fever Within 48 Hours Sepsis New/Unexplained Change in Mental Status Sepsis Action Taken by Nursing 08/22/24 13:01 08/22/24 13:01 08/22/24 13:15 Temperature Temperature Source Pulse Rate 107 H Pulse Rate [Apical] Pulse Rate from SpO2 Sensor Respiratory Rate 23 Respiratory Effort / Characteristics Blood Pressure 141/98 H 141/98 H Blood Pressure [Right Arm] Blood Pressure Mean 107 107 Blood Pressure Mean [Right Arm] Blood Pressure Position Blood Pressure Position [Right Arm] Pulse Oximetry 92 Oxygen Delivery Method Oxygen Flow Rate Sepsis Recent Fever Within 48 Hours Sepsis New/Unexplained Change in Mental Status Sepsis Action Taken by Nursing 08/22/24 13:16 08/22/24 13:16 08/22/24 13:30 Temperature Temperature Source Pulse Rate Pulse Rate [Apical] Pulse Rate from SpO2 Sensor Respiratory Rate Respiratory Effort / Characteristics Blood Pressure 143/88 H 143/88 H 168/113 H Blood Pressure [Right Arm] Blood Pressure Mean 109 109 122 Blood Pressure Mean [Right Arm] Blood Pressure Position Blood Pressure Position [Right Arm] Pulse Oximetry Oxygen Delivery Method Oxygen Flow Rate Sepsis Recent Fever Within 48 Hours Sepsis New/Unexplained Change in Mental Status Sepsis Action Taken by Nursing 08/22/24 13:30 08/22/24 13:33 08/22/24 13:45 Temperature Temperature Source Pulse Rate 104 H Pulse Rate [Apical] Pulse Rate from SpO2 Sensor 106 H Respiratory Rate 20 Respiratory Effort / Characteristics Blood Pressure 168/113 H 145/93 H Blood Pressure [Right Arm] Blood Pressure Mean 122 107 Blood Pressure Mean [Right Arm] Blood Pressure Position Blood Pressure Position [Right Arm] Pulse Oximetry 100 Oxygen Delivery Method Oxygen Flow Rate Sepsis Recent Fever Within 48 Hours Sepsis New/Unexplained Change in Mental Status Sepsis Action Taken by Nursing Laboratory Data 08/22/24 10:56 08/22/24 10:56 Lab Results 08/22/24 08/22/24 08/22/24 Range/Units 10:56 12:21 12:34 WBC 15.85 H (4.8-10.8) K/ul RBC 4.27 (4.20-5.40) M/uL Hgb 11.9 L (12.0-16.0) g/dl Hct 37.5 (37.0-47.0) % MCV 87.8 (80.0-100.0) fL MCH 27.9 (25.0-34.0) pg MCHC 31.7 L (32.0-36.0) g/dL RDW Std Deviation 54.4 H (36.4-46.3) fL RDW Coeff of Chet 17.1 H (11.5-14.5) % Plt Count 413 H (130-400) K/uL MPV 8.9 L (9.4-12.4) fL Immature Gran % (Auto) 0.6 % Neut % (Auto) 84.6 % Lymph % (Auto) 7.8 % [place] % (Auto) 6.9 % Eos % (Auto) 0.0 % Baso % (Auto) 0.1 % Neut # (Auto) 13.40 H (1.40-6.50) K/uL Lymph # (Auto) 1.24 (1.20-3.40) K/uL [place] # (Auto) 1.10 H (0.11-0.59) K/uL Eos # (Auto) 0.00 (0.00-0.50) K/uL Baso # (Auto) 0.01 (0.00-0.20) K/uL Immature Gran # (Auto) 0.10 (0.01-0.20) K/uL VBG pH 7.43 H (7.36-7.41) VBG pCO2 58 H (38-50) mmHg VBG pO2 21 mmHg VBG HCO3 39 mmol/L VBG O2 Saturation < 60.0 % VBG Base Excess 12.0 mEq/L Sodium 134 L (136-145) mmol/L Potassium 2.9 L (3.5-5.1) mmol/L Chloride 87 L (98-107) mmol/L Carbon Dioxide 38 H (21-32) mmol/L Anion Gap 9 (3-11) BUN 13 (6-23) mg/dl Creatinine 0.62 (0.6-1.2) mg/dl Est Cr Clr Drug Dosing Not Reportable eGFR 92.81 BUN/Creatinine Ratio 21.0 H (10-20) Glucose 100 H (70-99(Fasting)) mg/dl Lactate 2.5 H* (0.4-2.0) mmol/L Calcium 9.3 (8.6-10.3) mg/dl Magnesium 1.7 (1.7-2.4) mg/dl Total Bilirubin 0.7 (0.2-1.0) mg/dl Direct Bilirubin 0.2 (0-0.2) mg/dl AST 14 (13-39) U/L ALT 6 L (7-52) U/L Alkaline Phosphatase 101 (34-104) U/L Total Creatine Kinase 15 L (26-192) U/L Troponin I High Sens 22.3 H (0-14) pg/ml Total Protein 7.0 (6.0-8.3) gm/dl Albumin 2.9 L (3.4-5.0) gm/dl Procalcitonin 0.30 (0-0.5) ng/ml Urine Color Yellow Urine Appearance Turbid A (Clear) Urine pH 7.5 (4.5-7.5) Ur Specific [place] 1.011 (1.000-1.030) Urine Protein 2+ H (Negative) Urine Glucose (UA) Negative (Negative) Urine Ketones Trace H (Negative) Urine Blood 2+ H (Negative) Urine Nitrite Positive A (Negative) Urine Bilirubin Negative (Negative) Urine Urobilinogen Negative (Negative) Ur Leukocyte Esterase 3+ H (Negative) Urine WBC (Auto) >50 H (0-5) /hpf Urine RBC (Auto) 0-2 (0-2) /hpf U Hyaline Cast (Auto) 11-20 H (0-2) /lpf U Epithel Cells (Auto) 0-2 (0-2) /hpf Urine Bacteria (Auto) 4+ H (None Seen) SARS-CoV-2 (PCR) NEGATIVE (Negative) Influenza Type A (PCR) Negative (Neg) Influenza Type B (PCR) Negative (Neg) RSV (RT-PCR) Negative (Neg) 08/22/24 Range/Units 13:02 WBC (4.8-10.8) K/ul RBC (4.20-5.40) M/uL Hgb (12.0-16.0) g/dl Hct (37.0-47.0) % MCV (80.0-100.0) fL MCH (25.0-34.0) pg MCHC (32.0-36.0) g/dL RDW Std Deviation (36.4-46.3) fL RDW Coeff of Chet (11.5-14.5) % Plt Count (130-400) K/uL MPV (9.4-12.4) fL Immature Gran % (Auto) % Neut % (Auto) % Lymph % (Auto) % [place] % (Auto) % Eos % (Auto) % Baso % (Auto) % Neut # (Auto) (1.40-6.50) K/uL Lymph # (Auto) (1.20-3.40) K/uL [place] # (Auto) (0.11-0.59) K/uL Eos # (Auto) (0.00-0.50) K/uL Baso # (Auto) (0.00-0.20) K/uL Immature Gran # (Auto) (0.01-0.20) K/uL VBG pH (7.36-7.41) VBG pCO2 (38-50) mmHg VBG pO2 mmHg VBG HCO3 mmol/L VBG O2 Saturation % VBG Base Excess mEq/L Sodium (136-145) mmol/L Potassium (3.5-5.1) mmol/L Chloride (98-107) mmol/L Carbon Dioxide (21-32) mmol/L Anion Gap (3-11) BUN (6-23) mg/dl Creatinine (0.6-1.2) mg/dl Est Cr Clr Drug Dosing eGFR BUN/Creatinine Ratio (10-20) Glucose (70-99(Fasting)) mg/dl Lactate (0.4-2.0) mmol/L Calcium (8.6-10.3) mg/dl Magnesium (1.7-2.4) mg/dl Total Bilirubin (0.2-1.0) mg/dl Direct Bilirubin (0-0.2) mg/dl AST (13-39) U/L ALT (7-52) U/L Alkaline Phosphatase (34-104) U/L Total Creatine Kinase (26-192) U/L Troponin I High Sens 10.5 D (0-14) pg/ml Total Protein (6.0-8.3) gm/dl Albumin (3.4-5.0) gm/dl Procalcitonin (0-0.5) ng/ml Urine Color Urine Appearance (Clear) Urine pH (4.5-7.5) Ur Specific [place] (1.000-1.030) Urine Protein (Negative) Urine Glucose (UA) (Negative) Urine Ketones (Negative) Urine Blood (Negative) Urine Nitrite (Negative) Urine Bilirubin (Negative) Urine Urobilinogen (Negative) Ur Leukocyte Esterase (Negative) Urine WBC (Auto) (0-5) /hpf Urine RBC (Auto) (0-2) /hpf U Hyaline Cast (Auto) (0-2) /lpf U Epithel Cells (Auto) (0-2) /hpf Urine Bacteria (Auto) (None Seen) SARS-CoV-2 (PCR) (Negative) Influenza Type A (PCR) (Neg) Influenza Type B (PCR) (Neg) RSV (RT-PCR) (Neg) Administered Medications Metoprolol Succinate (Metoprolol Succ 25mg Ext Rel Tab) 37.5 mg PO BID GELACIO Stop: 09/21/24 14:14 Last Admin: 08/22/24 17:22 Dose: 37.5 mg Documented By: BETH Discontinued Medications Albuterol (Albut/Ipratrop 3mg/0.5mg Neb 3 Ml Vial) 3 ml NEB NOW STA; Protocol Stop: 08/22/24 11:17 Last Admin: 08/22/24 11:20 Dose: 3 ml Documented By: TYRESE Dexamethasone Sodium Phosphate (DexamethasonePf 10 Mg/Ml Vial) 10 mg IV NOW ONE Stop: 08/22/24 10:57 Last Admin: 08/22/24 11:12 Dose: 10 mg Documented By: TYRESE Sodium Chloride (Nss) 1,000 mls @ 999 mls/hr IV .Q1H1M ONE Stop: 08/22/24 11:56 Last Infusion: 08/22/24 12:17 Dose: Infused Documented By: Admin: 08/22/24 11:06 Dose: 999 mls/hr Documented By: TYRESE Magnesium Sulfate/Dextrose (Magnesium Sulfate / D5w) 1 gm in 100 mls @ 100 mls/hr IV NOW STA Stop: 08/22/24 11:56 Last Infusion: 08/22/24 13:42 Dose: Infused Documented By: Admin: 08/22/24 11:14 Dose: 100 mls/hr Documented By: TYRESE Piperacillin Sod/Tazobactam Sod (Zosyn) 4.5 gm in 100 mls @ 200 mls/hr IV NOW ONE; Protocol Stop: 08/22/24 12:29 Last Infusion: 08/22/24 14:04 Dose: Infused Documented By: Admin: 08/22/24 12:14 Dose: 200 mls/hr Documented By: TYRESE Sodium Chloride (Nss) 500 mls @ 999 mls/hr IV .Q31M ONE Stop: 08/22/24 12:30 Last Infusion: 08/22/24 13:42 Dose: Infused Documented By: Admin: 08/22/24 12:15 Dose: 999 mls/hr Documented By: TYRESE Magnesium Sulfate/Dextrose (Magnesium Sulfate / D5w) 1 gm in 100 mls @ 50 mls/hr IV ONE ONE Stop: 08/22/24 15:53 Last Infusion: 08/22/24 16:53 Dose: Infused Documented By: Admin: 08/22/24 14:40 Dose: 50 mls/hr Documented By: TYRESE Potassium Chloride (K Miguelangel / Wtr) 10 meq in 100 mls @ 100 mls/hr IV Q1H GELACIO Stop: 08/22/24 15:59 Last Infusion: 08/22/24 16:29 Dose: Infused Documented By: Admin: 08/22/24 14:40 Dose: 100 mls/hr Documented By: TYRESE Metoprolol Tartrate (Metoprolol Tartrate 1 Mg/Ml Vial) 5 mg IV NOW STA Stop: 08/22/24 10:57 Last Admin: 08/22/24 11:06 Dose: 5 mg Documented By: TYRESE Potassium Chloride (Potassium Chloride Crtab 20 Meq Tabcr) 40 meq PO NOW STA Stop: 08/22/24 13:49 Last Admin: 08/22/24 14:40 Dose: 40 meq Documented By: TYRESE Imaging Data Radiologist's Impression: Chest X-Ray 08/22/24 10:56 XR chest 1V portable CLINICAL HISTORY: Sepsis COMPARISON STUDY: 07/11/2024 FINDINGS: Stable mild cardiomegaly without pulmonary vascular congestion. Stable aortic ectasia. Stable hyperexpanded lungs. No effusion, consolidation, or pneumothorax. There is plate-screw fixation of the distal left humerus. IMPRESSION: No acute findings. ACT 112: Negative or not required by law. Electronically signed by: Theodore Villegas M.D. 08/22/2024 11:33 AM Discharge Plan Visit Data Chief Complaint: Altered Mental Status Stated Complaint: AB PAIN ED Provider: Kane Zhu Discharge Problem: Sepsis, COPD with exacerbation, Atrial fibrillation with RVR, UTI (urinary tract infection) Patient Disposition: Admitted As Inpatient Condition: Fair Discharge Instructions Interventions: ED Discharge Assessment Last Done: 08/22/24 15:43 Discharge Problem: Sepsis Qualifiers: Sepsis type: sepsis due to unspecified organism Sepsis acute organ dysfunction status: with acute organ dysfunction Severe sepsis acute organ dysfunction type: acute respiratory failure Acute respiratory failure type: with hypoxia Severe sepsis shock status: without septic shock Qualified Code(s): A41.9 - Sepsis, unspecified organism; R65.20 - Severe sepsis without septic shock; J96.01 - Acute respiratory failure with hypoxia UTI (urinary tract infection) Qualifiers: Urinary tract infection type: acute cystitis Hematuria presence: without hematuria Qualified Code(s): N30.00 - Acute cystitis without hematuria
[2024-08-22] MEDS: METOPROLOL TARTRATE 1 MG/ML VIAL IV STA (11:06)
[2024-08-22] MEDS: SODIUM CHLORIDE 0.9% 1,000 ML IV ONE (11:06)
[2024-08-22 11:09] LABS: HCO3 VBG 39 mmol/L; Oxygen Saturation VBG < 60.0 %; PCO2 VBG 58 mmHg (38-50); PO2 VBG 21 mmHg; pH VBG 7.43 (7.36-7.41)
[2024-08-22] MEDS: dexAMETHasone**PF** 10 MG/ML VIAL IV ONE (11:12)
[2024-08-22] MEDS: MAGNESIUM SULFATE / D5W 1 GM/100 ML BAG IV STA (11:14)
[2024-08-22] MEDS: ALBUT/IPRATROP 3MG/0.5MG NEB 3 ML VIAL NEB STA (11:20)
[2024-08-22 11:26] LABS: Basophils # (auto) 0.01 K/uL (0.00-0.20); Basophils % (auto) 0.1 %; Hematocrit (blood only) 37.5 % (37.0-47.0); Hemoglobin 11.9 g/dl (12.0-16.0); Immature Granulocytes % (auto) 0.6 %; Lymphocytes # (auto) 1.24 K/uL (1.20-3.40); Lymphocytes % (auto) 7.8 %; Mean Corpuscular Hemoglobin 27.9 pg (25.0-34.0); Mean Corpuscular Hgb Conc 31.7 g/dL (32.0-36.0); Mean Corpuscular Volume 87.8 fL (80.0-100.0); Mean Platelet Volume 8.9 fL (9.4-12.4); Monocytes % (auto) 6.9 %; Neutrophils % (auto) 84.6 %; Platelet Count 413 K/uL (130-400); RDW Coefficient of Variation 17.1 % (11.5-14.5); RDW Standard Deviation 54.4 fL (36.4-46.3); Red Blood Count 4.27 M/uL (4.20-5.40); White Blood Count 15.85 K/ul (4.8-10.8)
--- NOTE | 2024-08-22 11:34 | XRay Report ---
XR chest 1V portable CLINICAL HISTORY: Sepsis COMPARISON STUDY: 07/11/2024 FINDINGS: Stable mild cardiomegaly without pulmonary vascular congestion. Stable aortic ectasia. Stab le hyperexpanded lungs. No effusion, consolidation, or pneumothorax. There is plate-screw fixation of the distal left humerus. IMPRESSION: No acute findings. ACT 112: Negative or not required by law. Electronically signed by: Theodore Villegas M.D. 08/22/2024 11:33 AM
[2024-08-22 11:44] LABS: Alanine Aminotransferase 6 U/L (7-52); Albumin Level 2.9 gm/dl (3.4-5.0); Alkaline Phosphatase 101 U/L (34-104); Anion Gap 9 (3-11); Aspartate Aminotransferase 14 U/L (13-39); Bilirubin Direct 0.2 mg/dl (0-0.2); Bilirubin,Total 0.7 mg/dl (0.2-1.0); Blood Urea Nitrogen 13 mg/dl (6-23); Calcium 9.3 mg/dl (8.6-10.3); Carbon Dioxide 38 mmol/L (21-32); Chloride 87 mmol/L (98-107); Creatine Kinase 15 U/L (26-192); Glucose 100 mg/dl (70-99(Fasting)); Magnesium 1.7 mg/dl (1.7-2.4); Potassium 2.9 mmol/L (3.5-5.1); Sodium 134 mmol/L (136-145)
[2024-08-22 11:50] LABS: Troponin I High Sensitivity 22.3 pg/ml (0-14)
[2024-08-22] MEDS: PIPERACILLIN/TAZOBACTAM 4.5 GM/100 ML BAG IV ONE (12:14)
[2024-08-22] MEDS: SODIUM CHLORIDE 0.9% 500 ML IV ONE (12:15)
[2024-08-22 13:09] LABS: Appearance Urine Turbid (Clear); Bacteria Urine Automated 4+ (None Seen); Bilirubin Urine Negative (Negative); Blood Urine 2+ (Negative); Color Urine Yellow; Epithelial Cell Urine Auto 0-2 /hpf (0-2); Glucose Urine UA Negative (Negative); Ketones Urine Trace (Negative); Leukocyte Esterase Urine 3+ (Negative); Nitrite Urine Positive (Negative); Protein Urine 2+ (Negative); RBC Urine Automated 0-2 /hpf (0-2); Specific Gravity Urine 1.011 (1.000-1.030); Urobilinogen Urine Negative (Negative); WBC Urine Automated >50 /hpf (0-5); pH Urine 7.5 (4.5-7.5)
[2024-08-22 13:25] LABS: Influenza A virus by PCR Negative (Neg); Influenza B virus by PCR Negative (Neg); RSV by PCR Negative (Neg); SARS CoV2 RNA(COVID-19) Ceph NEGATIVE (Negative)
--- NOTE | 2024-08-22 13:51 | History & Physical Report ---
Date of Service August 22, 2024 Assessment & Plan (1) Sepsis: (2) UTI (urinary tract infection): Plan: Admit to telemetry Patient presenting from home for evaluation of shortness of breath and weakness. Patient is a poor historian. Recently admitted to [facility] 07/12 - 07/25 for COPD exacerbation, atrial fibrillation with RVR, Pseudomonas UTI. Patient was noted to have anemia and heme + stools. Endoscopy was attempted however patient could not tolerate the prep. Deferred for outpatient endoscopy. Also noted to have ongoing left elbow wound from surgery for left distal humerus fracture. Imaging was obtained showing intact hardware and no abscess. Recommended that patient continues follow-up with trauma surgeon at [place]. On presentation, tachycardic in the 150s (afib RVR), WBC 15K, lactate 2.5. BP stable and saturating well on chronic 3 L of oxygen. UA suggestive of UTI. CT abd/pelvis: Distended urinary bladder. Mild right hydronephrosis and hydroureter without obstructing calculus. The mild hydronephrosis could be due to the urinary bladder distention or a stricture at the right UVJ. There is mild inflammation at the right kidney. Suggest clinical correlation for ascending UTI/early right pyelonephritis. Will place lord and consult urology s/p Zosyn in the ED, will continue with given history of pseudomonas UTI Lactate 2/5 -> 1.7 Follow urine and blood cultures (3) Atrial fibrillation with RVR: Plan: Likely multifactorial due to sepsis, hypokalemia, and missed medications S/p metoprolol 5 mg IV in the ED, with improvement in heart rate Will resume metoprolol succinate 37.5 mg twice daily (note that during last hospitalization, carvedilol was changed to metoprolol however it appears that patient got both prescriptions filled. Attempted to call daughter to confirm medications but call went straight to voicemail) Continue Eliquis (4) COPD with exacerbation: (5) Chronic hypoxic respiratory failure: Plan: Per ED, patient had wheezeing on presentation s/p neb, dexamethasone 10 mg IV with improvement Saturating well on chronic 3L of oxygen Will continue with prednisone 40 mg daily from tomorrow, as needed nebs, Mucinex, incentive spirometer, flutter valve Flu, COVID, RSV negative No infiltrate noted on CXR (6) Hypokalemia: Plan: K+ 2.9, Mg +1.7 Replace, follow (7) HTN (hypertension): Plan: Continue metoprolol, losartan Hold Lasix for now (8) Anemia: Plan: During last admission, patient was noted to have anemia and heme + stools. Endoscopy was attempted however patient could not tolerate the prep. Deferred for outpatient endoscopy. Hgb 11.9 today Continue to monitor CBC (9) CAD (coronary artery disease): Plan: Appears stable Note that patient is currently on triple therapy with ASA, Plavix, and Eliquis. Underwent RCA stent in 02/2023. Also does not appear that Plavix has been filled recently so question if patient is taking. Attempted to call daughter to clarify meds but call went directly to [facility]. For now will continue ASA and Eliquis only until medications can be confirmed with daughter. Continue ASA, statin, beta-zaki DVT PROPHYLAXIS On Eliquis DISCHARGE PLANNING ISSUES Note that rehab was recommended during last hospitalization however patient and daughter elected for discharge home. Patient no showed for her hospital discharge follow-up appointment with PCP. Patient does appear to have home h ealth arranged. Also noted that patient has not gotten several of her medications filled recently. Attempted to call patient's daughter however call went directly to [facility]. Patient seen in collaboration with Dr. Perkins. I spent a total of 75 minutes coordinating, documenting, and providing care for this patient excluding time spent in the performance of separately billed serv ices. This included personally reviewing all current laboratories and imaging studies, medication reconciliation, outpatient chart review, and discussion with specialists. History of Present Illness Chief Complaint: Shortness of Breath Primary Care Provider: Ronald Cortes MD 74 year old female with PMH COPD on chronic 3 L of oxygen, HTN, CAD (STEMI in 2022 s/p RCA intervention), paroxysmal atrial fibrillation, hypothyroidism, and other problems listed below who presents for evaluation of shortness of breath. Patient is somewhat of a poor historian. Reports that she has had worsening shortness of breath over the past few days. Upon further questioning, also reports some abdominal pain, nausea, urinary frequency. Denies fevers and chills. No vomiting. Denies chest pain, lightheadedness, dizziness, diaphoresis, syncopal event. According to review of records, home health did a visit on the patient today and found her to be very weak and had not gotten out of bed for few days. Attempted to call patient's daughter for additional history however call went straight to [facility]. In the ED, patient found to be in atrial fibrillation with RVR with rate in the 150s, wheezing on exam, UA suggestive of UTI, WBC 15K, lactate 2.5, K+ 2.9. patient was given nebulizer treatment, IV dexamethasone, metoprolol 5 mg IV, IV Zosyn, IVF. Allergies Allergy/AdvReac Type Severity Reaction Status Date / Time bee venom protein (honey bee) Allergy Severe SWELLING Verified 01/30/24 16:12 SEVERE doxycycline Allergy Intermediate Vomiting Verified 01/30/24 16:12 Home Medications Medication Instructions Recorded Confirmed Type multivitamin 1 tab PO DAILY #0 tabs 02/07/14 08/22/24 History omega 5-vkz-fel-fish oil 1,000 mg 1 cap PO DAILY #0 caps 04/22/17 08/22/24 History (120 mg-180 mg) capsule (Fish Oil) magnesium oxide 400 mg PO BID #0 tabs 06/01/17 08/22/24 History apixaban 5 mg tablet (Eliquis) 5 mg PO BID 12/06/23 08/22/24 History atorvastatin 40 mg tablet 40 mg PO QAM 12/06/23 08/22/24 History citalopram 40 mg tablet 40 mg PO QAM 12/06/23 08/22/24 History clopidogrel 75 mg tablet 75 mg PO QAM 12/06/23 08/22/24 History fluticasone propionate 115 2 puff inhalation AMHS 12/06/23 08/22/24 History mcg-salmeterol 21 mcg/actuation HFA inhaler gabapentin 300 mg capsule 300 mg PO BID 12/06/23 08/22/24 History levothyroxine 25 mcg tablet 25 mcg PO DAILYBB 12/06/23 08/22/24 History oxybutynin chloride 5 mg 5 mg PO QAM 12/06/23 08/22/24 History tablet,extended release 24 hr potassium chloride 10 mEq 10 meq PO AMHS 12/06/23 08/22/24 History tablet,extended release(part/cryst) (Klor-Con M) nitroglycerin 0.4 mg sublingual 0.4 mg sublingual Q5M PRN chest 12/09/23 08/22/24 Rx tablet (Nitrostat) pain #30 tabs ipratropium 0.5 mg-albuterol 3 mg 3 ml NEB QIDR PRN shortness of 12/28/23 08/22/24 Rx (2.5 mg base)/3 mL nebulization breath #90 mL soln albuterol sulfate 90 mcg/actuation 2 puff inhalation Q4 PRN WHEEZING 01/30/24 08/22/24 History aerosol inhaler OR COUGH pantoprazole 40 mg tablet,delayed 40 mg PO QAM 01/30/24 08/22/24 History release (Protonix) tiotropium bromide 18 mcg capsule 1 cap inhalation QAM 03/02/24 08/22/24 History with inhalation device alendronate 70 mg tablet 70 mg PO WK 03/15/24 08/22/24 History cholecalciferol (vitamin D3) 50 50 mcg PO DAILY 03/24/24 08/22/24 History mcg (2,000 unit) tablet (Vitamin D3) furosemide 40 mg tablet 20 mg PO QAM 03/24/24 08/22/24 History oxycodone 5 mg tablet 5 mg PO Q4H PRN pain #15 tabs 04/01/24 08/22/24 Rx phenazopyridine 200 mg tablet 200 mg PO TID PRN pain #30 tabs 07/09/24 08/22/24 Rx (Pyridium) aspirin 81 mg tablet,delayed 81 mg PO QAM #30 tabs 07/25/24 08/22/24 Rx release losartan 25 mg tablet 25 mg PO QAM #30 tabs 07/25/24 08/22/24 Rx metoprolol succinate 25 mg 37.5 mg (1.5 x 25 mg) PO BID #60 07/25/24 08/22/24 Rx tablet,extended release 24 hr tabs Past Med/Surg History Problem List (Updated 08/22/24 @ 14:45 by BLANK Kinsey) Sepsis UTI (urinary tract infection) Atrial fibrillation with RVR (Acute) S/P ORIF (open reduction internal fixation) fracture Anticoagulant long-term use (Acute) Fracture of distal end of left humerus (Acute) COPD with exacerbation Dyslipidemia, goal LDL below 70 Hypokalemia (Acute) Medical History (Updated 08/22/24 @ 14:45 by BALNK Kinsey) Chronic hypoxic respiratory failure Hypothyroidism CAD (coronary artery disease) 2022 - STEMI w/ RCA interventions Anemia COPD (chronic obstructive pulmonary disease) PAF (paroxysmal atrial fibrillation) HTN (hypertension) Myocardial infarction due to demand ischemia Non-ST elevation NH (NSTEMI) Macular degeneration Tobacco use disorder Atrial fibrillation Diabetes Surgical History (Updated 08/09/24 @ 00:07 by Papito Parham) H/O heart surgery History of cholecystectomy Hx of tubal ligation Social History Smoking Status: Current every day smoker Tobacco Type: Cigarettes Cigarettes Per Day: 5; Second Hand Exposure: No; Do You Dip or Chew Tobacco: No; Hx Alcohol Use: No Hx Substance Use: No Preferred Language: German Communication Ability: Effective Equipment Scheduler Required: No Beliefs That Will Affect Care: None Current Living Situation: Family Current Living Situation Comment: with daughter Feels Safe at Home: Yes Assistive Devices: Cane, Oxygen - Continuous, Walker and Wheelchair Physical Exam Physical Exam: please refer to Dr. Perkins's addendum for physical exam Results & Data Results & Data Vital Signs (Past 12 Hours) Vital Signs Temp Pulse Pulse Resp BP BP Pulse Ox 08/22/24 12:00 99 08/22/24 11:21 126 H 157/120 H 08/22/24 11:10 138 H 08/22/24 11:06 154 H 167/145 H 08/22/24 11:00 153 H 16 173/129 H 99 08/22/24 11:00 99 08/22/24 11:00 99 08/22/24 11:00 37.3 C 153 H 16 173/129 H 99 08/22/24 11:00 153 H 16 99 08/22/24 11:00 37.3 C 153 H 16 173/129 H 99 O2 Del Method O2 Flow Rate 08/22/24 12:00 Nasal Cannula 3 08/22/24 11:21 08/22/24 11:10 08/22/24 11:06 08/22/24 11:00 Room Air 08/22/24 11:00 Nasal Cannula 3 08/22/24 11:00 Nasal Cannula 3 08/22/24 11:00 Nasal Cannula 3 08/22/24 11:00 Nasal Cannula 3 08/22/24 11:00 Nasal Cannula 3 Laboratory Results Short CBC 08/22/24 Range/Units 10:56 WBC 15.85 H (4.8-10.8) K/ul Hgb 11.9 L (12.0-16.0) g/dl Hct 37.5 (37.0-47.0) % Plt Count 413 H (130-400) K/uL BMP 08/22/24 10:56 Sodium 134 L Potassium 2.9 L Chloride 87 L Carbon Dioxide 38 H BUN 13 Creatinine 0.62 Glucose 100 H Calcium 9.3 Cardiac Enzymes 08/22/24 Range/Units 10:56 Total Creatine Kinase 15 L (26-192) U/L Liver Function 08/22/24 Range/Units 10:56 Total Bilirubin 0.7 (0.2-1.0) mg/dl Direct Bilirubin 0.2 (0-0.2) mg/dl AST 14 (13-39) U/L ALT 6 L (7-52) U/L Alkaline Phosphatase 101 (34-104) U/L Albumin 2.9 L (3.4-5.0) gm/dl Urine 08/22/24 Range/Units 12:34 Urine Color Yellow Urine Appearance Turbid A (Clear) Urine pH 7.5 (4.5-7.5) Ur Specific [place] 1.011 (1.000-1.030) Urine Protein 2+ H (Negative) Urine Glucose (UA) Negative (Negative) Diagnostic Findings Chest X-Ray 08/22/24 10:56 XR chest 1V portable CLINICAL HISTORY: Sepsis COMPARISON STUDY: 07/11/2024 FINDINGS: Stable mild cardiomegaly without pulmonary vascular congestion. Stable aortic ectasia. Stable hyperexpanded lungs. No effusion, consolidation, or pneumothorax. There is plate-screw fixation of the distal left humerus. IMPRESSION: No acute findings. ACT 112: Negative or not required by law. Electronically signed by: Theodore Villegas M.D. 08/22/2024 11:33 AM Code Status & VTE Plan VTE Prophylaxis Plan VTE Prophylaxis will be ordered: No Supervising Physician Co-Signing Physician Notes Presents to the hospital complaining of generalized weakness and SOB Also reports nausea, abd pain and urinary freq. Reports back and flank pain Was noted to be weak at home and wheezing on presentation per ER Reports she has not taken her meds today or yesterday On exam, General: Ill appearing Eyes: PERRL, conjunctivae normal, not pale, anicteric sclerae, EOM intact bilaterally ENMT: External ear and nose normal, oropharynx normal Respiratory: Normal respiratory effort, on chronic 2L NC, globally diminished breath sounds Cardiovascular: Irregularly irregular, tachycardia Gastrointestinal (Abdomen): Abdomen is not distended, soft, non-tender to palpation, no guarding, normal bowel sounds Musculoskeletal: No pedal edema Genitourinary: +CVA tenderness b/l Neurologic: Alert and oriented to person and place, No focal weakness, sensation grossly intact Psychiatric: Euthymic affect Labs notable for leukocytosis of 15.8, hemoglobin of 11.9, sodium of 134, potassium of 2.9, chloride of 87, lactate of 2.5 troponins 23.310.5 UA had 3+ leukocyte esterase, positive nitrite and more than 50 WBC Chest x-ray did not show any acute abnormalities. Sepsis likely due to UTI. COPD exacerbation Continue Zosyn for now as urine culture from last month grew Pseudomonas. Follow-up infectious workup [blood cultures and urine cultures] Got IVF in ER Get CT A/P to rule out pyelonephritis Per chart review [look at recent med fill from pharm in the past patient], may have reviewed Coreg as well as metoprolol succinate within the past month. Patient's Coreg was discontinued last admission started on metoprolol succinate for better rate control of A-fib. Counseled patient about this. However, patient's daughter who helps with medication will need to be considered about any medication changes current meds at the time of discharge. Resume metoprolol succinate at 7.5 mg twice daily at this time. 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
[2024-08-22] MEDS: POTASSIUM CHLORIDE CRTAB 20 MEQ TABCR PO STA (14:40)
[2024-08-22] MEDS: POTASSIUM CHLORIDE / WTR 10 MEQ/100 ML PLCT IV SCH ×2 (14:40→19:22)
[2024-08-22] MEDS: MAGNESIUM SULFATE / D5W 1 GM/100 ML BAG IV ONE (14:40)
--- NOTE | 2024-08-22 14:47 | CT Scan Report ---
ABDOMEN AND PELVIS CT WITHOUT CONTRAST CT DOSE: 316.52 mGy.cm HISTORY: sepsis, UTI TECHNIQUE: Multiaxial CT images of the abdomen and pelvis were performed without contrast. A dose lo wering technique was utilized adhering to the principles of ALARA. COMPARISON STUDY: 07/08/2024 FINDINGS: ABDOMEN: Liver, spleen, pancreas, and adrenal glands have an unremarkable noncontrast appearance. The re is no hydronephrosis or calculi on the left. There is a stable small cyst superior right kidney. T here is mild hydronephrosis at the right kidney with mild perinephric stranding. There is a tiny calc ulus at the right mid kidney. No ureteral calculi seen. The ureter is mildly diffusely dilated to the right UVJ. Pelvis: Urinary bladder is distended. Uterus and adnexa are grossly unremarkable. Rectum is mildly di stended with stool. Otherwise there is mild retained stool. No bowel inflammation or obstruction. No free fluid or free air. No enlarged adenopathy. Osseous structures: There is osteopenia. Stable mild scoliosis. Stable severe height loss at the T11 vertebral body. No acute osseous finding. Stable lumbar degenerative changes. IMPRESSION: 1. Distended urinary bladder. 2. Mild right hydronephrosis and hydroureter without obstructing calculus. The mild hydronephrosis co uld be due to the urinary bladder distention or a stricture at the right UVJ. There is mild inflammat ion at the right kidney. Suggest clinical correlation for ascending UTI/early right pyelonephritis. 3. Otherwise as described. No other acute findings seen. ACT 112: Negative or not required by law. The above report was generated using voice recognition software. It may contain grammatical, syntax o r spelling errors. Electronically signed by: Theodore Villegas M.D. 08/22/2024 2:44 PM
--- OUTSIDE RECORDS SUMMARY | 2024-08-22 15:00 | External Medical Summary | Summary of Care ---
Author Name Unknown Organization [facility] Address [address] [place] [address] Phone [phone] Care Team Providers Care Supervisor Chlorine Liquefaction Name Role Phone Ronald Cortes MD Primary Care Provider [phone] Reason for Visit * Reason Onset Date Comments Hospital Follow-Up 07/26/2024 [facility] ([facility]) Encounter Details Date Type Department Care Team (Late st Contact Info) Description 07/26/2024 Telephone [facility] [address] [place] [address] Ping Payan, ABILIO Hospital Follow-Up ([facility] ([facility])) Allergies Active Allergy Reactions Criticality Noted Date Comments Bee Venom Anaphylaxis High 02/27/2006 Doxycycline Low 08/04/2023 Intolerant, GI upset documented as of this encounter (statuses as of 07/27/2024) Medications CALCIUM + D 600-200 MG-UNIT PO TABS 1 BID 0 03/13/20 06 Active MULTIVITAMINS PO TABS daily 0 03/13/20 06 Active ACETAMINOPHEN 325 MG PO TABSIndications:IN TERFACED RESULT,Pneumothora x 2 Tab Oral Every 6 hours as needed for fever, pain, headache 1 Tab 0 07/28/19 14 Active [place]-3 Fatty Acids (FISH OIL) 1000 MG Capsule [...] 54 g 3 02/08/20 24 Active Tiotropium [place] Monohydrate 18 MCG Inhalation Capsule (Spiriva HandiHaler) Inhale 1 Capsule by mouth in the morning. INHALE THE CONTENTS OF 1 CAPSULE EVERY DAY VIA HANDIHALER (DO NOT SWALLOW). 90 Capsule 3 02/08/20 Active Carvedilol 3.125 MG Oral Tablet (Coreg) Take 1 Tablet by mouth 2 times a day with morning and evening meals. 03/08/20 Active Losartan Potassium 25 MG Oral Tablet (Cozaar) Take 1 Tablet by mouth in the morning. 03/08/20 Active traZODone HCl 50 MG Oral Tablet [...] as of this encounter (statuses as of 07/27/2024) Active Problems Problem Noted Date Diagnosed Date History of atrial fibrillation 02/08/2024 Gait difficulty 02/08/2024 Chronic respiratory failure with hypoxia 024 COPD, group B, by GOLD 2017 classification 09/20 Overview: Per COPD GOLD Classification Acquired hypothyroidism 07/19/2023 History of coronary angioplasty with insertion o f stent 07/01/2023 Coronary artery disease invo lving [place] coronary artery of [place] heart without angina pectoris 07/01/2023 Hematuria of undiagnosed cause 07/12/2019 Tobacco use disorder 12/21/2017 Chronic nonspecific lung disease 06/16/2017 HTN, goal below 150/90 11/16/2015 Osteoporosis 12/28/2014 Dyslipidemia, goal LDL below 100 06/10/2010 Generalized osteoarthritis of multiple sites 02/2011 GENERALIZED ANXIETY DIS 12/05/2004 COMMON MIGRAINE WITHOUT MENTION OF INTRACTABLE M IGRAINE documented as of this encounter (statuses as of 07/27/2024) Resolved Problems Problem Noted Date Diagnosed Date [...] as of this encounter (statuses as of 07/27/2024) Immunizations Name Administration Dates Next Due COVID-19, [...] Tetanus Toxid Adsorbed 11/19/1978 Varicella Zoster Vaccine Trace lt (Zostavax) 01/23/2012 documented as of this encounter Social [...] file Not on file Not on file [employer] Not on file Not on file Not [...] Telephone Encounter - Ping Payan RN - 07/26/2024 1:08 PM EDT Transitions of Care Note Reason for Referral:Recent Admission Phone visit for follow up: SUNITHA #1 Admitted to: [facility], Date: 07/12/2024 Discharged to: Home with Home Services, Date: 07/25/2024 Diagnosis driving hospitalization: COPD Exacerbation Attempted Phone Call First Attempt Call Outcome Left Voicemail/Message Message left on voicemail for patient. When they call back please transfer them to me at [phone]. If you are unable to reach me or my voicemail please route this message back to me. Thank you. Transitions of Care Note Reason for Referral:Recent Admission Phone visit for follow up: SUNITHA #2 Admitted to: [facility], Date: 07/12/2024 Discharged to: Home with Home Services, Date: 07/25/2024 Diagnosis driving hospitalization: COPD Exacerbation Attempted Phone Call Second Attempt Call Outcome Left Voicemail/Message Message left on voicemail for patient. When they call back please transfer them to me at [phone]. If you are unable to reach me or my voicemail please route this message back to me. Thank you. documented in this encounter Plan of Treatment Upcoming Encounters Date Type Department Care Team (Late st Contact Info) Description 07/29/2024 3:00 PM EDT Office Visit [facility] [address] [place] [address] Ronald Cortes MD [address] [place] [id number] Scheduled Procedures Name Priority Associated Diagnoses Date/Ti [...] IN PAST YEAR FOR COPD 02/07/2025 02/08/2024 Lung Cancer Screening 05/02/2025 05/02/2024 , 04/13/2024, 01/05/2017, Additional history exists GFR 07/05/2025 07/05/2024, 04/14, 04/13/2024, Additional history exists TSH 07/05/2025 07/05/2024, 09/12, 07/01/2023, Additional history exists Albumin/Creatinine Ratio 08/15/2025 08/15/2022 DTap/Tdap Vaccines (3 - Td or Tdap) 09/13/2031 09/12/2021, 06/10/2010, 07/16/1999 VITAMIN D LEVEL ONCE IN A LIFETIME-USE SMARTSET# [id number] Completed 03/22/2015 Pneumococcal Vaccine: 50+ Years Completed 12/31/2016, 11/17/2014, 06/10/2010 Fecal Occult Blood Test Discontinued 04/23/19 18, 12/21/2000, 10/31/1999 Colonoscopy Discontinued 06/02/2017, 04/12/2007 Colorectal Cancer Screening Discontinued Influenza Vaccine (FLU shot) Completed 02/08/2024, 02/08/2024, 03/14/2021, Additional history exists Cologuard Discontinued HPV (Gardasil) [...] this encounter Medical Devices Implanted Type Area Networks Computer Consultant Device Identifier Shelf Expiration Date Model / Serial / Lot Chip Cancellous [facility] 640896 - [id number] [place]ed:[place] [facility] [place] Left: Foot MUSCULOSKELETAL TRANSPLANT FND 07/24/2015 [id number] / [id number] / Screw Nonlock 3.5 X 24 - [id number] Implanted:Qty: 1 [place] 08[place]08[place]2013 [place] [facility] [place]: Foot ORTHOHELIX SURGICAL DESIGNS EARTH SCIENCE TEACHER-011-3 5-24 / / Screw Locking 3.5 X 16 - [id number] Implanted:Qty: 2 [place] 08/08/2013 [place] [facility]: Foot ORTHOHELIX SURGICAL DESIGNS EARTH SCIENCE TEACHER-021-3 5-16 / / Plate 6 Hole Beta Mxl-0026 - [id number] Implanted:Qty: 1 on 08/08/2013 [place] [facility]: Foot ORTHOHELIX SURGICAL DESIGNS MXL-0026 / / Screw Locking 3.5 X 20 - [id number] Implanted:Qty: 1 on 08/08/2013 [place] [facility]: Foot ORTHOHELIX SURGICAL DESIGNS EARTH SCIENCE TEACHER-021-3 5-20 / / Screw Nonlock 3.5 X 16 - [id number] Implanted:Qty: 1 on 08/08/2013 [place] [facility] [place]: Foot ORTHOHELIX SURGICAL DESIGNS EARTH SCIENCE TEACHER-011-3 5-16 / / Screw Nonlock 3.5 X 18 - [id number] Implanted:Qty: 1 on 08/08/2013 [place] [facility] [place]: Foot ORTHOHELIX SURGICAL DESIGNS EARTH SCIENCE TEACHER-011-3 5-18 / / Screw Nonlock 3.5 X 14 - [id number] Implanted:Qty: 1 on 08/08/2013 [place] [facility]: Foot ORTHOHELIX SURGICAL DESIGNS EARTH SCIENCE TEACHER-011-3 5-14 / / 4.0 X 3.0 Short Max Torque Implanted:Qty: 1 on 08/08/2013 [place] [facility] [place]: Foot ORTHOHELIX SURGICAL DESIGNS MSD-010-4 0-030S / / 4.0 X 32.5 Short Max Torque Implanted:Qty: 1 on 08/08/2013 [place] [facility]: Foot MSD-010-4 0-325S / / 4.0 X 28 Short Max Torque Implanted:Qty: 1 on 08/08/2013 [place] [facility]: Foot ORTHOHELIX SURGICAL DESIGNS MSD-010-4 0-028S / / 4.0 X 22 Short Max Torque Implanted:Qty: 1 on 08/08/2013 [place] [facility] [place]: Foot ORTHOHELIX SURGICAL DESIGNS MSD-010-4 0-022S / / [place] Gold 4.0 - [id number] Implanted:Qty: 1 on 08/08/2013 [place] [facility]: Foot ORTHOHELIX SURGICAL DESIGNS CSS-500-4 0A / / Plate Lps Alpha 2 Slot - [id number] Implanted:Qty: 1 on 08/08/2013 [place] [facility]: Foot ORTHOHELIX SURGICAL DESIGNS MXL-002-2 A / / Screw Variable 3.5 X 12mm - [id number] Implanted:Qty: 1 on 08/08/2013 [place] [facility]: Foot ORTHOHELIX SURGICAL DESIGNS RAKESH-031-3 5-12 / / Screw Variable 3.5 X 18mm - [id number] Implanted:Qty: 1 on 08/08/2013 [place] [facility]: Foot ORTHOHELIX SURGICAL DESIGNS RAKESH-031-3 5-18 [...] Power of Attor elizabeth? No Care Teams Supervisor Chlorine Liquefaction Relationship Specialty Start Date End Date Ronald Cortes MD [address] [facility] [place] [address] PCP - General 06/10/02 documented as of this encounter
--- OUTSIDE RECORDS SUMMARY | 2024-08-22 15:01 | External Medical Summary | Summary of Care ---
Author Name Unknown Organization [facility] Address [address] [place] [address] Phone [phone] Care Team Providers Care Industrial Gas Servicer Name Role Phone Ronald Cortes MD Primary Care Provider [phone] Encounter Details Date Type Department Care Team (Late st Contact Info) Description 07/12/2024 Orders Only PATIENT PORTAL DO NOT DELETE THIS DEPT USED BY BO STACY [id number] Allergies Active Allergy Reactions Criticality Noted Date Comments Bee Venom Anaphylaxis High 02/27/2006 Doxycycline Low 08/04/2023 Intolerant, GI upset documented as of this encounter (statuses as of 07/12/2024) Medications CALCIUM + D 600-200 MG-UNIT PO TABS 1 BID 0 03/13/20 06 Active MULTIVITAMINS PO TABS daily 0 03/13/20 06 Active ACETAMINOPHEN 325 MG PO TABSIndications:IN TERFACED RESULT,Pneumothora x 2 Tab Oral Every 6 hours as needed for fever, pain, headache 1 Tab 0 07/28/19 14 Active [place]-3 Fatty Acids (FISH OIL) 1000 MG Capsule [...] Cough. 54 g 3 02/08/20 Active Tiotropium [place] Monohydrate 18 MCG Inhalation Capsule (Spiriva HandiHaler) [...] TABLETS BEFORE BEDTIME. 180 Tablet 1 05/23/19 Active Sulfamethoxazole-T rimethoprim 800-160 MG Oral Tablet [...] as of this encounter (statuses as of 07/12/2024) Active Problems Problem Noted Date Diagnosed Date [...] [place] heart without angina pectoris 07/01/2023 Hematuria of undiagnosed cause 07/12/2019 Tobacco use disorder 12/21/2017 Chronic nonspecific lung disease 06/16/2017 HTN, goal below 150/90 11/16/2015 Osteoporosis 12/28/2014 Dyslipidemia, goal LDL below 100 06/10/2010 Generalized osteoarthritis of multiple sites 02/2011 GENERALIZED ANXIETY DIS 12/05/2004 COMMON MIGRAINE WITHOUT MENTION OF INTRACTABLE M IGRAINE documented as of this encounter (statuses as of 07/12/2024) Resolved Problems Problem Noted Date Diagnosed Date [...] as of this encounter (statuses as of 07/12/2024) Immunizations Name Administration Dates Next Due COVID-19, [...] file Not on file Not on file Detail Supervisor Not on file Not on file [...] Description 07/13/2024 3:30 PM EDT Imaging Radiology [facility] [address] [place] [phone] Scheduled Procedures Name Priority Associated Diagnoses Date/Ti [...] D LEVEL ONCE IN A LIFETIME-USE SMARTSET# [id number] Completed 03/22/2015 Pneumococcal Vaccine: 50+ Years Completed [...] this encounter Medical Devices Implanted Type Area Tipple Worker Device Identifier Shelf Expiration Date Model / Serial / Lot Chip Cancellous [facility] 525680 - [id number] 1 Implanted:Qty: 1 on 08/08/[place] [facility] [place] Left: Foot MUSCULOSKELETAL TRANSPLANT FND 07/24/2015 [id number] / [id number] / Screw Nonlock 3.5 X 24 - [id number] Implanted:Qty: 1 on 08/08[place]2013 [place] [facility] [place] Foot ORTHOHELIX SURGICAL DESIGNS WASTEWATER ENGINEER-011-3 5-24 / / Screw Locking 3.5 X 16 - [id number] Implanted:Qty: 2 on 08/08/2013 [place] [facility] [place] Foot ORTHOHELIX SURGICAL DESIGNS WASTEWATER ENGINEER-021-3 5-16 / / Plate 6 Hole Beta Mxl-0026 - [id number] Implanted:Qty: 1 on 08/08/2013 [place] [facility] [place]: Foot ORTHOHELIX SURGICAL DESIGNS MXL-0026 / / Screw Locking 3.5 X 20 - [id number] Implanted:Qty: 1 on 08/08/2013 [place] [facility] [place]: Foot ORTHOHELIX SURGICAL DESIGNS WASTEWATER ENGINEER-021-3 5-20 / / Screw Nonlock 3.5 X 16 - [id number] Implanted:Qty: 1 on 08/08/2013 [place] [facility] [place] Foot ORTHOHELIX SURGICAL DESIGNS WASTEWATER ENGINEER-011-3 5-16 / / Screw Nonlock 3.5 X 18 - [id number] Implanted:Qty: 1 on 08/08/2013 [place] [facility] [place] Foot ORTHOHELIX SURGICAL DESIGNS WASTEWATER ENGINEER-011-3 5-18 / / Screw Nonlock 3.5 X 14 - [id number] Implanted:Qty: 1 on 08/08/2013 [place] [facility] [place] Foot ORTHOHELIX SURGICAL DESIGNS WASTEWATER ENGINEER-011-3 5-14 / / 4.0 X 3.0 [...] / / [place] Gold 4.0 - [id number] Implanted:Qty: 1 on 08/08/2013 [place] [facility] [place] Foot ORTHOHELIX SURGICAL DESIGNS CSS-500-4 0A / / Plate Lps Alpha 2 Slot - [id number] Implanted:Qty: 1 on 08/08/2013 [place] [facility] [place]: Foot ORTHOHELIX SURGICAL DESIGNS MXL-002-2 A / / Screw Variable 3.5 X 12mm - [id number] Implanted:Qty: 1 on 08/08/2013 [place] [facility] [place]: Foot ORTHOHELIX SURGICAL DESIGNS RAKESH-031-3 5-12 / / Screw Variable 3.5 X 18mm - [id number] Implanted:Qty: 1 on [place]08/2013 [place] [...] Power of Attor elizabeth? No Care Teams Industrial Gas Servicer Relationship Specialty Start Date End Date Ronald Cortes MD PCP - General 06/10/02 documented as of this encounter
--- OUTSIDE RECORDS SUMMARY | 2024-08-22 15:01 | External Medical Summary | Summary of Care ---
Author Name Unknown Organization [facility] Address [address] [place] [address] Phone [phone] Care Team Providers Care Rail Transit Operator Name Role Phone Ronald Cortes MD Primary Care Provider [phone] Reason for Visit * Reason Onset Date Comments Hospital Follow-Up 07/11/2024 [facility] Encounter Details Date Type Department Care Team (Late st Contact Info) Description 07/11/2024 Telephone [facility] [address] [place] [address] Ping Payan, ABILIO Hospital Follow-Up ([facility] ([facility] Allergies Active Allergy Reactions Criticality Noted Date [...] headache 1 Tab 0 07/28/19 14 Active [place]-3 Fatty Acids (FISH OIL) 1000 MG Capsule [...] 54 g 3 02/08/20 24 Active Tiotropium [place] Monohydrate 18 MCG Inhalation Capsule (Spiriva HandiHaler) [...] stent 07/01/2023 Coronary artery disease invo lving [place] coronary artery of [place] heart without angina pectoris 07/01/2023 Hematuria of [...] 0.6 70.9 Started: 09/02/1973 Smokeless Tobacco: Never Comments:/2 ppd. Smoker /2 07/04. 5 cpd smoker. [...] file Not on file Not on file Compressed Gas Equipment Mechanic Not on file Not on file Not [...] for follow up: SUNITHA #1 Admitted to: [facility], Date: 07/09/2024 Discharged to: Home, Date: 07/09/2024 Diagnosis driving hospitalization: Acute Cystitis Attempted Phone Call First Attempt Call Outcome Left Voicemail/Message Message left on voicemail for patient. When they call back please transfer them to me at [phone]. If you are unable to reach me or my voicemail please route this message back to me. Thank you. Transitions of Care Note Reason for Referral:Recent Admission Phone visit for follow up: SUNITHA #2 Admitted to: [facility], Date: 07/09/2024 Discharged to: Home, Date: 07/09/2024 Diagnosis driving hospitalization: Acute Cystitis Patient currently admitted to [facility]. SUNITHA #2 not needed. documented in this encounter Plan of Treatment Upcoming Encounters Date Type Department Care Team (Late st Contact Info) Description 07/13/2024 3:30 PM EDT Imaging Radiology [facility] [address] [place] [phone] [...] D LEVEL ONCE IN A LIFETIME-USE SMARTSET# [id number] Completed 03/22/2015 Pneumococcal Vaccine: 50+ Years Completed [...] this encounter Medical Devices Implanted Type Area Process Development Technician Device Identifier Shelf Expiration Date Model / Serial / Lot Chip Cancellous c 416034 - [id number] Implanted:Qty: 1 on 08/08/[address] [facility] [place] Tissue - Human Left: Foot MUSCULOSKELETAL TRANSPLANT FND 07/24/2015 [id number] / [id number] / Screw Nonlock 3.5 X 24 - [id number] Implanted:Qty: 1 on 08/08/[address] [facility] [place] Left: Foot ORTHOHELIX SURGICAL DESIGNS PANEL EDGE SEALER-011-3 5-24 / / Screw Locking 3.5 X 16 - [id number] Implanted:Qty: 2 on 08/08/[address] [facility] [place] Left: Foot ORTHOHELIX SURGICAL DESIGNS PANEL EDGE SEALER-021-3 5-16 / / Plate 6 Hole Beta Mxl-0026 - [id number] Implanted:Qty: 1 on 08/08/[address] [facility] [place] Left: Foot ORTHOHELIX SURGICAL DESIGNS MXL-0026 / / Screw Locking 3.5 X 20 - [id number] Implanted:Qty: 1 on 08/08/[address] [facility] [place] Left: Foot ORTHOHELIX SURGICAL DESIGNS PANEL EDGE SEALER-021-3 5-20 / / Screw Nonlock 3.5 X 16 - [id number] Implanted:Qty: 1 on 08/08/[address] [facility] [place] Left: Foot ORTHOHELIX SURGICAL DESIGNS PANEL EDGE SEALER-011-3 5-16 / / Screw Nonlock 3.5 X 18 - [id number] Implanted:Qty: 1 on 08/08/[address] [facility] [place] Left: Foot ORTHOHELIX SURGICAL DESIGNS PANEL EDGE SEALER-011-3 5-18 / / Screw Nonlock 3.5 X 14 - [id number] Implanted:Qty: 1 on 08/08/[address] [facility] [place] [place] Left: Foot ORTHOHELIX SURGICAL DESIGNS PANEL EDGE SEALER-011-3 5-14 / / 4.0 X 3.0 Short Max Torque Implanted:Qty: 1 on 08/08/2013 at [facility] Left: Foot ORTHOHELIX SURGICAL DESIGNS MSD-010-4 0-030S / / 4.0 X 32.5 Short Max Torque Implanted:Qty: 1 on 08/08/[address] [facility] [place] Left: Foot MSD-010-4 0-325S / / 4.0 X 28 Short Max Torque Implanted:Qty: 1 on 08/08/[address] [facility] [place] Left: Foot ORTHOHELIX SURGICAL DESIGNS MSD-010-4 0-028S / / 4.0 X 22 Short Max Torque Implanted:Qty: 1 on 08/08/[address] [facility] [place] [place] Left: Foot ORTHOHELIX SURGICAL DESIGNS MSD-010-4 0-022S / / [place] Gold 4.0 - [id number] Implanted:Qty: 1 on 08/08/[address] [facility] [place] [place] Left: Foot ORTHOHELIX SURGICAL DESIGNS CSS-500-4 0A / / Plate Lps Alpha 2 Slot - [id number] Implanted:Qty: 1 on 08/08/[address] [facility] [place] [place] Left: Foot ORTHOHELIX SURGICAL DESIGNS MXL-002-2 A / / Screw Variable 3.5 X 12mm - [id number] Implanted:Qty: 1 on 08/08/[address] [facility] [place] [place] Left: Foot ORTHOHELIX SURGICAL DESIGNS RAKESH-031-3 5-12 / / Screw Variable 3.5 X 18mm - [id number] Implanted:Qty: 1 on 08/08/[address] [facility] [place] Left: Foot ORTHOHELIX SURGICAL DESIGNS RAKESH-031-3 5-18 [...] Power of Attor elizabeth? No Care Teams Rail Transit Operator Relationship Specialty Start Date End Date Ronald Cortes MD PCP - General 06/10/02 documented as of this encounter
--- OUTSIDE RECORDS SUMMARY | 2024-08-22 15:01 | External Medical Summary | Summary of Care ---
Author Name Unknown Organization [facility] Address [address] [place] [address] Phone [phone] Care Team Providers Care C Programmer Name Role Phone Ronald Cortes MD Primary Care Provider [phone] Encounter Details Date Type Department Care Team (Late st Contact Info) Description 07/17/2024 Result Scan Unspecified Department <No scans attached> Allergies Active Allergy Reactions Criticality Noted Date Comments Bee Venom Anaphylaxis High 02/27/2006 Doxycycline Low 08/04/2023 Intolerant, GI upset documented as of this encounter (statuses as of 07/20/2024) Medications CALCIUM + D 600-200 MG-UNIT PO TABS 1 BID 0 03/13/20 06 Active MULTIVITAMINS PO TABS daily 0 03/13/20 06 Active ACETAMINOPHEN 325 MG PO TABSIndications:IN TERFACED RESULT,Pneumothora x 2 Tab Oral Every 6 hours as needed for fever, pain, headache 1 Tab 0 07/28/19 14 Active [place]-3 Fatty Acids (FISH OIL) 1000 MG Capsule [...] 54 g 3 02/08/20 24 Active Tiotropium [place] Monohydrate 18 MCG Inhalation Capsule (Spiriva HandiHaler) [...] as of this encounter (statuses as of 07/20/2024) Active Problems Problem Noted Date Diagnosed Date [...] as of this encounter (statuses as of 07/20/2024) Resolved Problems Problem Noted Date Diagnosed Date [...] as of this encounter (statuses as of 07/20/2024) Immunizations Name Administration Dates Next Due COVID-19, [...] older, IM (Adacel) 06/10/2010 Varicella Zoster Vaccine Trace lt (Zostavax) 01/23/2012 [...] file Not on file Not on file Family And Consumer Education Teacher Not on file Not on file Not [...] Care Team (Late st Contact Info) Description 07/22/2024 3:00 PM EDT Office Visit [facility] [place] [facility] [address] [phone] Ronald Cortes MD [address] [phone] Scheduled Procedures Name Priority Associated Diagnoses Date/Ti me COLONOSCOPY FLEXIBLE PROXIMA L DIAGNOSTIC Recall Encounter for screening colonoscopy Health Maintenance Due Date Last Done Comments DISCUSS TOBACCO CESSATION (REFER TO SMARTSET #0743) 1950 Alpha-1 Antitrypsin 1967 Zoster Vaccines (2 [...] D LEVEL ONCE IN A LIFETIME-USE SMARTSET# 78007 Completed 03/22/2015 Pneumococcal Vaccine: 50+ Years Completed [...] this encounter Medical Devices Implanted Type Area Perinatal Technician Device Identifier Shelf Expiration Date Model / Serial / Lot Chip Cancellous [facility] [id number] - [id number] Implanted:Qty: 1 on 08/08/2013 at [facility] Tissue - Human Left: Foot MUSCULOSKELETAL TRANSPLANT FND 07/24/2015 [id number] / [id number] / Screw Nonlock 3.5 X 24 - [id number] Implanted:Qty: 1 on 08/08/2013 at [facility] Left: Foot [employer] SPAR CAP BEVELER-011-3 5-24 / / Screw Locking 3.5 X 16 - [id number] Implanted:Qty: 2 on 08/08/2013 at [facility] Left: Foot [employer] SPAR CAP BEVELER-021-3 5-16 / / Plate 6 Hole Beta Mxl-0026 - [id number] Implanted:Qty: 1 on 08/08/2013 at [facility] Left: Foot [employer] MXL-0026 / / Screw Locking 3.5 X 20 - [id number] Implanted:Qty: 1 on 08/08/2013 at [facility] Left: Foot [employer] SPAR CAP BEVELER-021-3 5-20 / / Screw Nonlock 3.5 X 16 - [id number] Implanted:Qty: 1 on 08/08/2013 at [facility] Left: Foot [employer] SPAR CAP BEVELER-011-3 5-16 / / Screw Nonlock 3.5 X 18 - [id number] Implanted:Qty: 1 on 08/08/2013 at [facility] Left: Foot [employer] SPAR CAP BEVELER-011-3 5-18 / / Screw Nonlock 3.5 X 14 - [id number] Implanted:Qty: 1 on 08/08/2013 at [facility] Left: Foot [employer] SPAR CAP BEVELER-011-3 5-14 / / 4.0 X 3.0 Short Max Torque Implanted:Qty: 1 on 08/08/2013 at [facility] Left: Foot [employer] MSD-010-4 0-030S / / 4.0 X 32.5 Short Max Torque Implanted:Qty: 1 on 08/08/2013 at [facility] Left: Foot MSD-010-4 0-325S / / 4.0 X 28 Short Max Torque Implanted:Qty: 1 on 08/08/2013 at [facility] Left: Foot [employer] MSD-010-4 0-028S / / 4.0 X 22 Short Max Torque Implanted:Qty: 1 on 08/08/2013 at [facility] Left: Foot [employer] MSD-010-4 0-022S / / [place] Gold 4.0 - [id number] Implanted:Qty: 1 on 08/08/2013 at [facility] Left: Foot [employer] CSS-500-4 0A / / Plate Lps Alpha 2 Slot - [id number] Implanted:Qty: 1 on 08/08/2013 at [facility] Left: Foot [employer] MXL-002-2 A / / Screw Variable 3.5 X 12mm - [id number] Implanted:Qty: 1 on 08/08/2013 at [facility] Left: Foot [employer]TH[employer] RAKESH-031-3 5-12 / / Screw Variable 3.5 X 18mm - [id number] Implanted:Qty: 1 on 08/08/2013 at [facility] Left: Foot [employer]TH[employer] RKAESH-031-3 5-18 / / documented as of this encounter Procedures Procedure Name Priority Date/Time Associated Diagnosis Comments ECHOCARDIOLOGY SCANNED RESULT 07/17/2024 documented in this encounter Results * ECHOCARDIOLOGY SCANNED RESULT (07/17/2024) 07/17/2024 us No Physician Data Unknown ECHOCARDIOLOGY Final Result documented in this encounter Advance [...] Power of Attor elizabeth? No Care Teams C Programmer Relationship Specialty Start Date End Date Ronald Cortes MD [address] [facility] [address] [place] [id number] PCP - General 06/10/02 documented as of this encounter
[2024-08-22] MEDS ORDERED: ALBUT/IPRATROP 3MG/0.5MG NEB 3 ML VIAL NEB PRN (15:50)
[2024-08-22] MEDS: METOPROLOL SUCC 25MG EXT REL TAB PO SCH (17:22)
--- NOTE | 2024-08-22 18:33 | Electrocardiogram Report ---
Test Reason : Blood Pressure : */* mmHG Vent. Rate : 166 BPM Atrial Rate : 332 BPM P-R Int : * ms QRS Dur : 70 ms QT Int : 282 ms P-R-T Axes : * 80 268 degrees QTcB Int : 468 ms Atrial fibrillation Marked ST abnormality, possible anterior subendocardial injury Abnormal ECG When compared with ECG of 17-Jul-2024 16:34, Vent. rate has increased by [address] now depressed in Inferior leads Inverted T waves have replaced nonspecific T wave abnormality in Inferior leads T wave inversion less evident in Anterior leads Confirmed by Meliton Falcon ([id number]) on 08/22/2024 6:33:09 PM Referred By: Confirmed By: Meliton Falcon
[2024-08-22] MEDS: ACETAMINOPHEN 325 MG TAB PO PRN (19:10)
[2024-08-22] MEDS: PIPERACILLIN/TAZOBACTAM 4.5 GM/100 ML BAG IV SCH (19:15)
[2024-08-22 19:59] LABS: Calcium 7.9 mg/dl (8.6-10.3); Creatinine Clr Calc Pharmacy 49.1 ml/min; Potassium 3.3 mmol/L (3.5-5.1)
[2024-08-22] MEDS: GABAPENTIN 300 MG CAP PO SCH (20:14)
[2024-08-22] MEDS: APIXABAN 5 MG TABLET PO SCH (20:14)
[2024-08-22] MEDS: guaiFENesin 600 MG TABCR PO SCH (20:15)
--- NOTE | 2024-08-22 20:25 | Urology Consultation ---
Date of Consultation August 22, 2024 Assessment & Plan (1) UTI (urinary tract infection): The patient has been admitted on the hospitalist service. From urologic perspective we recommend the following: Patient appears to be suffering from urinary tract infection Broad-spectrum antibiotics in form of Zosyn been initiated. He should continue. Appropriate cultures have been sent and antibiotics can be tailored based on culture results Helms catheter has been placed for maximal urinary drainage Would recommend following serial labs Patient may have a ureteral stricture on the right side. At some point the patient may require cystoscopy for further evaluation but we would like to optimize her medically at this time. If patient does become febrile or hypotensive consideration can be given to performing cystoscopy at an earlier time Additional recommendations were forthcoming based on her clinical course as it unfolds History of Present Illness Reason for Consultation: Obstructive uropathy Attending Physician: Yenny Perkins MD History of Present Illness This is a 74-year-old male who was admitted to the hospital secondary to sepsis from a urinary source. Patient was not the best historian but she says that she has been somewhat more short of breath over the past few days. She denies any abdominal pain or nausea or vomiting. She also denies any fevers, shakes, or chills. She does note that she has had some dysuria but denies any hematuria. To the best of her knowledge she has not had any kidney stones. Since arrival to the hospital the patient has had labs and imaging which have been reviewed. Chest x-ray showed no evidence of pneumonia. A CT scan of the abdomen pelvis showed the patient had right hydronephrosis and hydroureter however no kidney stones were noted. The patient was noted to have concern for a stricture at the right ureterovesical junction with mild inflammation in the right kidney. Labs including CBC were white blood cell count was elevated 15.8. Hemoglobin and hematocrit were 11.9 and 37.5. Platelet count was 4 and 13,000. Chemistry profile showed sodium and potassium are 133 and 3.3. BUN and creatinine were both within normal range. Lactic acid upon presentation was 2.5 but was checked approximately 3 hours later and had normalized to 1.7. Uri nalysis was concerning for infectionwas positive for nitrites as well as 3+ leukocyte Estrace and pyuria with greater than 50 white blood cells per high- power field along with 4+ bacteria. Patient was tested for COVID, influenza, as well as RSV all of which were negative. At the time of my interview she was resting comfortably bed and she was in no distress Allergies Allergy/AdvReac Type Severity Reaction Status Date / Time bee venom protein (honey bee) Allergy Severe SWELLING Verified 01/30/24 16:12 SEVERE doxycycline Allergy Intermediate Vomiting Verified 01/30/24 16:12 Home Medications Medication Instructions Recorded Confirmed Type multivitamin 1 tab PO DAILY #0 tabs 02/07/14 08/22/24 History omega 8-gjd-gmg-fish oil 1,000 mg 1 cap PO DAILY #0 caps 04/22/17 08/22/24 History (120 mg-180 mg) capsule (Fish Oil) magnesium oxide 400 mg PO BID #0 tabs 06/01/17 08/22/24 History apixaban 5 mg tablet (Eliquis) 5 mg PO BID 12/06/23 08/22/24 History atorvastatin 40 mg tablet 40 mg PO QAM 12/06/23 08/22/24 History citalopram 40 mg tablet 40 mg PO QAM 12/06/23 08/22/24 History clopidogrel 75 mg tablet 75 mg PO QAM 12/06/23 08/22/24 History fluticasone propionate 115 2 puff inhalation AMHS 12/06/23 08/22/24 History mcg-salmeterol 21 mcg/actuation HFA inhaler gabapentin 300 mg capsule 300 mg PO BID 12/06/23 08/22/24 History levothyroxine 25 mcg tablet 25 mcg PO DAILYBB 12/06/23 08/22/24 History oxybutynin chloride 5 mg 5 mg PO QAM 12/06/23 08/22/24 History tablet,extended release 24 hr potassium chloride 10 mEq 10 meq PO AMHS 12/06/23 08/22/24 History tablet,extended release(part/cryst) (Klor-Con M) nitroglycerin 0.4 mg sublingual 0.4 mg sublingual Q5M PRN chest 12/09/23 08/22/24 Rx tablet (Nitrostat) pain #30 tabs ipratropium 0.5 mg-albuterol 3 mg 3 ml NEB QIDR PRN shortness of 12/28/23 08/22/24 Rx (2.5 mg base)/3 mL nebulization breath #90 mL soln albuterol sulfate 90 mcg/actuation 2 puff inhalation Q4 PRN WHEEZING 01/30/24 08/22/24 History aerosol inhaler OR COUGH pantoprazole 40 mg tablet,delayed 40 mg PO QAM 01/30/24 08/22/24 History release (Protonix) tiotropium bromide 18 mcg capsule 1 cap inhalation QAM 03/02/24 08/22/24 History with inhalation device alendronate 70 mg tablet 70 mg PO WK 03/15/24 08/22/24 History cholecalciferol (vitamin D3) 50 50 mcg PO DAILY 03/24/24 08/22/24 History mcg (2,000 unit) tablet (Vitamin D3) furosemide 40 mg tablet 20 mg PO QAM 03/24/24 08/22/24 History oxycodone 5 mg tablet 5 mg PO Q4H PRN pain #15 tabs 04/01/24 08/22/24 Rx phenazopyridine 200 mg tablet 200 mg PO TID PRN pain #30 tabs 07/09/24 08/22/24 Rx (Pyridium) aspirin 81 mg tablet,delayed 81 mg PO QAM #30 tabs 07/25/24 08/22/24 Rx release losartan 25 mg tablet 25 mg PO QAM #30 tabs 07/25/24 08/22/24 Rx metoprolol succinate 25 mg 37.5 mg (1.5 x 25 mg) PO BID #60 07/25/24 08/22/24 Rx tablet,extended release 24 hr tabs Patient History Medical History Chronic hypoxic respiratory failure Hypothyroidism CAD (coronary artery disease) 2022 - STEMI w/ RCA interventions Anemia COPD (chronic obstructive pulmonary disease) PAF (paroxysmal atrial fibrillation) HTN (hypertension) Myocardial infarction due to demand ischemia Non-ST elevation NC (NSTEMI) Macular degeneration Tobacco use disorder Atrial fibrillation Diabetes Surgical History H/O heart surgery History of cholecystectomy Hx of tubal ligation Social History Smoking Status: Current every day smoker Tobacco Type: Cigarettes Cigarettes Per Day: 5; Second Hand Exposure: No; Do You Dip or Chew Tobacco: No; Tobacco Cessation Education Requested by Patient: No Hx Alcohol Use: No Hx Substance Use: No Preferred Language: Turkmen Communication Ability: Effective Dockworker Required: No Beliefs That Will Affect Care: None Current Living Situation: Family Current Living Situation Comment: with daughter Other Information That Helps Us Care for You: No Feels Safe at Home: Yes Safety Concerns: Feels Safe At This Time Assistive Devices: Oxygen - Continuous, Walker and Wheelchair Review of Systems Review of Systems: All systems reviewed & are unremarkable except as noted in HPI & below Physical Exam Constitutional: WD/WN, vitals as above Eyes: no conjunctival abnormality ENMT: Ears: no hearing impairment and no external ear abnormality Mouth: no oropharynx abnormality Neck: trachea midline Respiratory: normal respiratory effort; no respiratory distress and no labored breathing Cardiovascular: Rate/Rhythm: regular rate and regular rhythm Gastrointestinal (Abdomen): Abdomen is soft without distention. There is no pain with palpation Musculoskeletal: No calf tenderness Skin: no jaundice Neurologic: moves all extremities Genitourinary: Patient did have some slight CVA tenderness with percussion on the right, slight CVA tenderness with percussion on the left. Helms catheter is in place draining cloudy urine. Results & Data Vital Signs (Past 12 Hours) Vital Signs Temp Pulse Pulse Resp BP BP Pulse Ox 08/22/24 19:41 36.7 C 122 H 18 143/100 H 100 08/22/24 16:17 08/22/24 15:43 103 H 16 151/89 H 100 08/22/24 15:42 97 H 22 100 08/22/24 15:30 110 H 22 100 08/22/24 15:30 145/107 H 08/22/24 15:30 145/107 H 08/22/24 15:30 145/107 H 08/22/24 15:24 108 H 20 100 08/22/24 15:15 151/89 H 08/22/24 15:00 150/101 H 08/22/24 15:00 150/101 H 08/22/24 15:00 109 H 22 100 08/22/24 14:54 107 H 16 100 08/22/24 14:45 121/95 08/22/24 14:45 121/95 08/22/24 14:45 99 H 24 100 08/22/24 14:30 108 H 23 100 08/22/24 14:30 131/96 08/22/24 14:30 131/96 08/22/24 14:09 96 H 17 100 08/22/24 14:06 112 H 14 100 08/22/24 14:01 135/81 08/22/24 14:01 135/81 08/22/24 13:54 113 H 13 99 08/22/24 13:51 103 H 22 100 08/22/24 13:45 145/93 H 08/22/24 13:33 104 H 20 100 08/22/24 13:30 168/113 H 08/22/24 13:30 168/113 H 08/22/24 13:16 143/88 H 08/22/24 13:16 143/88 H 08/22/24 13:15 107 H 23 92 08/22/24 13:01 141/98 H 08/22/24 13:01 141/98 H 08/22/24 13:00 98 H 22 96 08/22/24 12:54 102 H 22 08/22/24 12:46 147/108 H 08/22/24 12:36 115 H 17 100 08/22/24 12:33 107 H 22 99 08/22/24 12:31 120/72 08/22/24 12:31 120/72 08/22/24 12:27 113 H 22 100 08/22/24 12:15 111 H 23 100 08/22/24 12:15 138/101 H 08/22/24 12:15 138/101 H 08/22/24 12:15 138/101 H 08/22/24 12:06 103 H 16 100 08/22/24 12:01 153/103 H 08/22/24 12:00 99 08/22/24 11:57 104 H 19 08/22/24 11:51 107 H 14 97 08/22/24 11:42 98 H 22 08/22/24 11:36 113 H 16 08/22/24 11:30 165/125 H 08/22/24 11:30 165/125 H 08/22/24 11:27 104 H 12 100 08/22/24 11:21 126 H 157/120 H 08/22/24 11:16 157/120 H 08/22/24 11:16 157/120 H 08/22/24 11:10 138 H 08/22/24 11:06 154 H 167/145 H 08/22/24 11:00 153 H 16 173/129 H 99 08/22/24 11:00 99 08/22/24 11:00 99 08/22/24 11:00 37.3 C 153 H 16 173/129 H 99 08/22/24 11:00 153 H 16 99 08/22/24 11:00 37.3 C 153 H 16 173/129 H 99 08/22/24 10:51 173/129 H 08/22/24 10:51 173/129 H 08/22/24 10:51 157 H 22 O2 Del Method O2 Flow Rate 08/22/24 19:41 Nasal Cannula 08/22/24 16:17 Nasal Cannula 3 08/22/24 15:43 Nasal Cannula 3 08/22/24 15:42 08/22/24 15:30 08/22/24 15:30 08/22/24 15:30 08/22/24 15:30 08/22/24 15:24 08/22/24 15:15 08/22/24 15:00 08/22/24 15:00 08/22/24 15:00 08/22/24 14:54 08/22/24 14:45 08/22/24 14:45 08/22/24 14:45 08/22/24 14:30 08/22/24 14:30 08/22/24 14:30 08/22/24 14:09 08/22/24 14:06 08/22/24 14:01 08/22/24 14:01 08/22/24 13:54 08/22/24 13:51 08/22/24 13:45 08/22/24 13:33 08/22/24 13:30 08/22/24 13:30 08/22/24 13:16 08/22/24 13:16 08/22/24 13:15 08/22/24 13:01 08/22/24 13:01 08/22/24 13:00 08/22/24 12:54 08/22/24 12:46 08/22/24 12:36 08/22/24 12:33 08/22/24 12:31 08/22/24 12:31 08/22/24 12:27 08/22/24 12:15 08/22/24 12:15 08/22/24 12:15 08/22/24 12:15 08/22/24 12:06 08/22/24 12:01 08/22/24 12:00 Nasal Cannula 3 08/22/24 11:57 08/22/24 11:51 08/22/24 11:42 08/22/24 11:36 08/22/24 11:30 08/22/24 11:30 08/22/24 11:27 08/22/24 11:21 08/22/24 11:16 08/22/24 11:16 08/22/24 11:10 08/22/24 11:06 08/22/24 11:00 Room Air 08/22/24 11:00 Nasal Cannula 3 08/22/24 11:00 Nasal Cannula 3 08/22/24 11:00 Nasal Cannula 3 08/22/24 11:00 Nasal Cannula 3 08/22/24 11:00 Nasal Cannula 3 08/22/24 10:51 08/22/24 10:51 08/22/24 10:51 Nasal Cannula 3 PG Care Time/CCT Total # of Minutes Spent Total Time Spent with Patient: Total time spent is greater than 50% in coordination of care (as documented) at patient's floor/unit and/or counseling patient: Coding Level of Care Code 86808 INT INP/OBS CARE 3/75MIN Diagnoses UTI (urinary tract infection) N30.00 Hematuria presence: without hematuria Urinary tract infection type: acute cystitis (1) UTI (urinary tract infection) Hematuria presence: without hematuria Urinary tract infection type: acute cystitis Qualified Code(s): N30.00 - Acute cystitis without hematuria
[2024-08-22] MEDS ORDERED: FLUTICASONE PROPION SALMETEROL INH SCH (21:00)
[2024-08-22] MEDS ORDERED: [UNRECOGNIZED DRUG - OTHER] INH SCH (21:00)
[2024-08-22] MEDS: HYDROmorphone INJ 0.5 MG/0.5 ML SYR IV PRN (21:25)
[2024-08-22] MEDS: MAGNESIUM OXIDE 400 MG TAB PO SCH (21:25)
[2024-08-22] MEDS: POTASSIUM CHLORIDE 10 MEQ TABCR PO SCH (21:26)
[2024-08-23] MEDS ORDERED: VANCOMYCIN CONSULT ACTIVE PRN (05:33)
[2024-08-23 06:03] LABS: Hemoglobin 9.1 g/dl (12.0-16.0); Mean Corpuscular Hemoglobin 27.7 pg (25.0-34.0); Mean Corpuscular Hgb Conc 31.4 g/dL (32.0-36.0); Mean Corpuscular Volume 88.4 fL (80.0-100.0); Platelet Count 284 K/uL (130-400); RDW Coefficient of Variation 17.2 % (11.5-14.5); Red Blood Count 3.28 M/uL (4.20-5.40); White Blood Count 7.74 K/ul (4.8-10.8)
[2024-08-23] MEDS: VANCOMYCIN HCL 1,000 MG/270 ML BAG IV ONE (06:11)
[2024-08-23] MEDS: SODIUM CHLORIDE 0.9% 1,000 ML IV SCH (06:12)
[2024-08-23] MEDS: LEVOTHYROXINE SODIUM 25 MCG TABLET PO SCH (06:13)
[2024-08-23 06:30] LABS: Calcium 7.7 mg/dl (8.6-10.3); Magnesium 2.1 mg/dl (1.7-2.4); Potassium 3.8 mmol/L (3.5-5.1)
[2024-08-23 06:36] LABS: BUN Creatinine Ratio 28.3 (10-20); Creatinine Clr Calc Pharmacy 64.4 ml/min
[2024-08-23 06:38] LABS: Thyroid Stimulating Hormone 0.47 uIu/ml (0.300-4.500)
[2024-08-23] MEDS: CALCIUM GLUCONATE 1,000 MG/60 ML BAG IV SCH (08:39)
[2024-08-23] MEDS: CITALOPRAM 40 MG TAB PO SCH (08:47)
[2024-08-23] MEDS: ATORVASTATIN 40 MG TAB PO SCH (08:47)
[2024-08-23] MEDS: ASPIRIN 81 MG ECTAB PO SCH (08:47)
[2024-08-23] MEDS: FLUTICASONE FUROATE 100MCG 14 PUFFS/INHALER INH SCH (08:48)
[2024-08-23] MEDS: LOSARTAN POTASSIUM 25 MG TAB PO SCH (08:49)
[2024-08-23] MEDS: OXYBUTYNIN CHLORIDE XL 5 MG TABCR PO SCH (08:50)
[2024-08-23] MEDS: PANTOprazole 40 MG TAB PO SCH (08:50)
[2024-08-23] MEDS: UMECLIDINIUM/VILANTEROL 62.5/25MCG 7 PUFFS/INHALER INH SCH (08:51)
[2024-08-23] MEDS: predniSONE 20 MG TAB PO SCH (08:51)
[2024-08-23] MEDS ORDERED: CLOPIDOGREL BISULFATE 75 MG TAB PO SCH (09:00)
[2024-08-23] MEDS ORDERED: TIOTROPIUM BROMIDE 5 PUFF/90 MCG INH INH SCH (09:00)
[2024-08-23 09:31] LABS: Base Excess VBG 6.4 mEq/L; HCO3 VBG 32 mmol/L; Oxygen Saturation VBG 81.7 %; PCO2 VBG 49 mmHg (38-50); PO2 VBG 50 mmHg; pH VBG 7.42 (7.36-7.41)
--- NOTE | 2024-08-23 10:43 | Electrocardiogram Report ---
Test Reason : Blood Pressure : */* mmHG Vent. Rate : 92 BPM Atrial Rate : * BPM P-R Int : * ms QRS Dur : 80 ms QT Int : 424 ms P-R-T Axes : * 75 -62 degrees QTcB Int : 524 ms Atrial fibrillation T wave abnormality, consider anterior ischemia Prolonged QT Abnormal ECG Confirmed by Meliton Falcon ([id number]) on 08/23/2024 10:42:36 AM Referred By: REFERRED SELF Confirmed By: Meliton Falcon
--- NOTE | 2024-08-23 12:46 | Urology Progress Note ---
Date of Service August 23, 2024 Assessment & Plan (1) Hydronephrosis: (2) UTI (urinary tract infection): Plan - Afebrile with stable vitals at present - Labs reviewed today - WBCs down to 7.74 (was 15 on admission) and creatinine 0.53 - Urine culture prelim with Citrobacter; Blood cultures prelim no growth x 24 hours - Helms intact and draining appropriately - urine is light red - CT reviewed and shows moderate right hydronephrosis and hydroureter to the level of the bladder without obstructing stone which is possibly due to urinary retention or stricture at the right UVJ. There is also mild inflation of the right kidney possibly due to UTI/pyelonephritis. - No plan for acute intervention today as she is currently stable and is not appropriately NPO. - Continue supportive care and antibiotic therapy - Maintain Helms catheter - Will make NPO for reassessment tomorrow unless she were to become febrile or hypotensive as that may necessitate urgent surgical intervention - Urology will follow - please call with any questions/concerns or changes in status Admission and Anticipated Discharge Date Admission Date: August 22, 2024 Subjective Pt seen at bedside Awake and resting in bed on arrival No acute distress Helms in place, draining light red urine Reports mild right sided pain No fevers Review of Systems Constitutional: as per Subjective / HPI Genitourinary: as per Subjective / HPI Physical Exam Constitutional: no acute distress Respiratory: no respiratory distress and no labored breathing Musculoskeletal: Head/Neck/Chest: normocephalic Neurologic: awake Psychiatric: Orientation: alert, oriented to person and cooperative Genitourinary: Helms intact Results & Data Vital Signs (Past 12 Hours) Vital Signs Temp Pulse Resp BP Pulse Ox O2 Del Method O2 Flow Rate 08/23/24 11:32 36.3 C L 90 18 124/89 100 Nasal Cannula 3 08/23/24 09:30 37.1 C 08/23/24 09:00 37.1 C 08/23/24 08:30 37.1 C 08/23/24 08:00 Nasal Cannula 3 08/23/24 08:00 36.9 C 08/23/24 07:30 36.1 C L 08/23/24 07:18 79 18 126/87 100 Nasal Cannula 3 08/23/24 07:00 35.7 C L 05/13/25 06:35 35.7 C L 08/23/24 05:16 35.4 C L 08/23/24 04:43 35.7 C L 08/23/24 04:25 35.7 C L 08/23/24 04:15 16 121/84 97 Room Air PG Care Time/CCT Total # of Minutes Spent Total Time Spent with Patient: Total time spent is greater than 50% in coordination of care (as documented) at patient's floor/unit and/or counseling patient: Coding Level of Care Code 33061 SUB INP/OBS CARE 2/35MIN Diagnoses Hydronephrosis N13.30 UTI (urinary tract infection) N30.00 Hematuria presence: without hematuria Urinary tract infection type: acute cystitis (2) UTI (urinary tract infection) Hematuria presence: without hematuria Urinary tract infection type: acute cystitis Qualified Code(s): N30.00 - Acute cystitis without hematuria
--- NOTE | 2024-08-23 14:15 | Hospitalist Progress Note ---
Date of Service August 23, 2024 Assessment & Plan (1) Sepsis: (2) UTI (urinary tract infection): (3) Atrial fibrillation with RVR: (4) COPD with exacerbation: (5) Chronic hypoxic respiratory failure: (6) Hypokalemia: (7) HTN (hypertension): (8) Anemia: (9) CAD (coronary artery disease): Plan Ms. Johnston is 74 year old female with PMH COPD on chronic 3 L of oxygen, HTN, CAD (STEMI in 2022 s/p RCA intervention), paroxysmal atrial fibrillation, hypothyroidism us admitted for sepsis due to acute complicated cystitis, as well as a fib RVR. Recently admitted to [facility] 07/12 - 07/25 for COPD exacerbation, atrial fibrillation with RVR, Pseudomonas UTI. Patient was noted to have anemia and heme + stools. Endoscopy was attempted however patient could not tolerate the prep. Deferred for outpatient endoscopy. Also noted to have ongoing left elbow wound from surgery for left distal humerus fracture. Imaging was obtained showing intact hardware and no abscess. Patient evaluated by urology with plan for cystoscopy tomorrow. 45 minutes spent with daughter to discuss goals of care: encouraged family discussion with patient--if patient wishes to increase functionality then rehab is strongly recommended as it has been over a week sense patient has walked; if patient is not motivated for recovery, strongly recommended consideration of hospice given monthly admissions since 11/2023. 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 UA suggestive of UTI. CT abd/pelvis: Distended urinary bladder. Mild right hydronephrosis and hydroureter without obstructing calculus. The mild hydronephrosis could be due to the urinary bladder distention or a stricture at the right UVJ. There is mild inflammation at the right kidney. Suggest clinical correlation for ascending UTI/early right pyelonephritis. Urology: plan for cystoscope tomorrow, NPO midnight continue zosyn for now UA with citrobacter discontinue vanc #atrial fibrillation with RVR: Likely multifactorial due to sepsis, hypokalemia, and missed medications S/p metoprolol 5 mg IV in the ED, with improvement in heart rate Continue metoprolol succinate 37.5 mg twice daily Continue Eliquis #COPD with exacerbation: #Chronic hypoxic respiratory failure: Per ED, patient had wheezing on presentation s/p neb, dexamethasone 10 mg IV with improvement Saturating well on chronic 3L of oxygen continue prednisone 40 mg daily, as needed nebs, Mucinex, incentive spirometer, flutter valve Flu, COVID, RSV negative No infiltrate noted on CXR #Hypokalemia: K+ 2.9, Mg +1.7 Replace, follow lytes #HTN (hypertension): Continue metoprolol, losartan Hold Lasix for now #Chronic normocytic Anemia: 11 on admission down to 9, however, baseline looks to be 8-9 Trend cbc #Chronic CAD s/p RCA stent in 02/2023. clarified medications with daughter, not on asa but takes plavix and eliquis Continue statin, beta-zaki DVT PROPHYLAXIS On Eliquis Admission and Anticipated Discharge Date Admission Date: August 22, 2024 Subjective Reports feeling marginally better from day prior, but over all still generally weak denies chest pain, palpitations, nausea, or vomiting reports she is well taken care of at home, but hasn't walked in Physical Exam Constitutional: weak, frail elderly woman Respiratory: diminished in bases mostly 2/2 effort Cardiovascular: irregularly irregular Gastrointestinal (Abdomen): suprapubic tenderness noted, urine dark brown Results & Data Results & Data Vital Signs (Past 12 Hours) Vital Signs Temp Pulse Resp BP Pulse Ox O2 Del Method O2 Flow Rate 08/23/24 11:32 36.3 C L 90 18 124/89 100 Nasal Cannula 3 08/23/24 09:30 37.1 C 08/23/24 09:00 37.1 C 08/23/24 08:30 37.1 C 08/23/24 08:00 Nasal Cannula 3 08/23/24 08:00 36.9 C 08/23/24 07:30 36.1 C L 08/23/24 07:18 79 18 126/87 100 Nasal Cannula 3 08/23/24 07:00 35.7 C L 08/23/24 06:35 35.7 C L 08/23/24 05:16 35.4 C L 08/23/24 04:43 35.7 C L 08/23/24 04:25 35.7 C L 08/23/24 04:15 16 121/84 97 Room Air Laboratory Results Short CBC 08/23/24 Range/Units 05:46 WBC 7.74 (4.8-10.8) K/ul Hgb 9.1 L (12.0-16.0) g/dl Hct 29.0 L (37.0-47.0) % Plt Count 284 (130-400) K/uL BMP 08/22/24 08/23/24 19:16 05:46 Sodium 133 L 135 L Potassium 3.3 L 3.8 Chloride 94 L 100 Carbon Dioxide 33 H 30 BUN 13 15 Creatinine 0.65 0.53 L Glucose 152 H 111 H Calcium 7.9 L 7.7 L Medications Administered Home Medications Medication Instructions Recorded Confirmed Last Taken multivitamin 1 tab PO DAILY #0 tabs 02/07/14 08/22/24 07/10/24 omega 3-cyj-fpj-fish oil 1,000 mg 1 cap PO DAILY #0 caps 04/22/17 08/22/24 07/10/24 (120 mg-180 mg) capsule (Fish Oil) magnesium oxide 400 mg PO BID #0 tabs 06/01/17 08/22/24 07/10/24 apixaban 5 mg tablet (Eliquis) 5 mg PO BID 12/06/23 08/22/24 07/10/24 atorvastatin 40 mg tablet 40 mg PO QAM 12/06/23 08/22/24 07/10/24 citalopram 40 mg tablet 40 mg PO QAM 12/06/23 08/22/24 07/11/24 clopidogrel 75 mg tablet 75 mg PO QA 12/06/23 08/22/24 07/11/24 fluticasone propionate 115 2 puff inhalation [facility] 12/06/23 08/22/24 07/10/24 mcg-salmeterol 21 mcg/actuation HFA inhaler gabapentin 300 mg capsule 300 mg PO BID 12/06/23 08/22/24 07/10/24 levothyroxine 25 mcg tablet 25 mcg PO DAILYBB 12/06/23 08/22/24 07/10/24 oxybutynin chloride 5 mg 5 mg PO QAM 12/06/23 08/22/24 07/10/24 tablet,extended release 24 hr potassium chloride 10 mEq 10 meq PO [facility] 12/06/23 08/22/24 07/10/24 tablet,extended release(part/cryst) (Klor-Con M) nitroglycerin 0.4 mg sublingual 0.4 mg sublingual Q5M PRN chest 12/09/23 08/22/24 07/10/24 tablet (Nitrostat) pain #30 tabs ipratropium 0.5 mg-albuterol 3 mg 3 ml NEB QIDR PRN shortness of 12/28/23 08/22/24 07/10/24 (2.5 mg base)/3 mL nebulization breath #90 mL soln albuterol sulfate 90 mcg/actuation 2 puff inhalation Q4 PRN WHEEZING 01/30/24 08/22/24 07/10/24 aerosol inhaler OR COUGH pantoprazole 40 mg tablet,delayed 40 mg PO QAM 01/30/24 08/22/24 07/10/24 release (Protonix) tiotropium bromide 18 mcg capsule 1 cap inhalation QAM 03/02/24 08/22/24 07/10/24 with inhalation device alendronate 70 mg tablet 70 mg PO WK 03/15/24 08/22/24 07/11/24 cholecalciferol (vitamin D3) 50 50 mcg PO DAILY 03/24/24 08/22/24 07/10/24 mcg (2,000 unit) tablet (Vitamin D3) furosemide 40 mg tablet 20 mg PO QAM 03/24/24 08/22/24 07/10/24 oxycodone 5 mg tablet 5 mg PO Q4H PRN pain #15 tabs 04/01/24 08/22/24 07/10/24 phenazopyridine 200 mg tablet 200 mg PO TID PRN pain #30 tabs 07/09/24 08/22/24 07/10/24 (Pyridium) aspirin 81 mg tablet,delayed 81 mg PO QAM #30 tabs 07/25/24 08/22/24 Unknown release losartan 25 mg tablet 25 mg PO QAM #30 tabs 07/25/24 08/22/24 Unknown metoprolol succinate 25 mg 37.5 mg (1.5 x 25 mg) PO BID #60 07/25/24 08/22/24 Unknown tablet,extended release 24 hr tabs Active Medications Generic Name Dose Route Start Last Admin Trade Name Freq PRN Reason Stop Dose Admin Acetaminophen 650 mg 08/22/24 15:50 08/22/24 19:10 Acetaminophen 325 Mg Tab PO 09/21/24 15:49 650 mg Q4H PRN Administration Pain or Fever Apixaban 5 mg 08/22/24 21:00 08/23/24 08:47 Apixaban 5 Mg Tablet PO 09/21/24 20:59 5 mg BID GELACIO Administration Aspirin 81 mg 08/23/24 09:00 08/23/24 08:47 Aspirin 81 Mg Ectab PO 09/22/24 08:59 81 mg QAM GELACIO Administration Atorvastatin Calcium 40 mg 08/23/24 09:00 08/23/24 08:47 Atorvastatin 40 Mg Tab PO 09/22/24 08:59 40 mg QAM GELACIO Administration Citalopram Hydrobromide 40 mg 08/23/24 09:00 08/23/24 08:47 Citalopram 40 Mg Tab PO 09/22/24 08:59 40 mg QAM GELACIO Administration Fluticasone Furoate 1 puffs 08/23/24 09:00 08/23/24 08:48 Fluticasone Furoate 100mcg 14 Puffs/Inhaler INH 09/22/24 08:59 1 puffs DAILY GELACIO Administration Gabapentin 300 mg 08/22/24 21:00 08/23/24 08:48 Gabapentin 300 Mg Cap PO 09/21/24 20:59 300 mg BID GELACIO Administration Guaifenesin 1,200 mg 08/22/24 21:00 08/23/24 08:48 Guaifenesin 600 Mg Tabcr PO 09/21/24 20:59 1,200 mg Q12 GELACIO Administration Hydromorphone HCl 0.25 mg 08/22/24 20:46 08/22/24 21:25 Hydromorphone Inj 0.5 Mg/0.5 Ml Syr IV 09/05/24 20:45 0.25 mg Q4H PRN Administration Mod-Sev Pain (Scale 4-10) Piperacillin Sod/Tazobactam Sod 4.5 gm in 100 mls @ 25 mls/hr 08/22/24 18:00 08/23/24 13:14 Zosyn IV 08/27/24 17:59 Infused Q8H GELACIO Infusion Protocol Sodium Chloride 1,000 mls @ 100 mls/hr 08/23/24 05:30 08/23/24 06:12 Nss IV 08/23/24 15:29 100 mls/hr .Q10H GELACIO Administration Levothyroxine Sodium 25 mcg 08/23/24 06:30 08/23/24 06:13 Levothyroxine Sodium 25 Mcg Tablet PO 09/22/24 06:29 25 mcg DAILYBB GELACIO Administration Losartan Potassium 25 mg 08/23/24 09:00 08/23/24 08:49 Losartan Potassium 25 Mg Tab PO 09/22/24 08:59 25 mg QAM GELACIO Administration Magnesium Oxide 400 mg 08/22/24 21:00 08/23/24 08:49 Magnesium Oxide 400 Mg Tab PO 09/21/24 20:59 400 mg BID GELACIO Administration Metoprolol Succinate 37.5 mg 08/22/24 14:15 08/23/24 08:50 Metoprolol Succ 25mg Ext Rel Tab PO 09/21/24 14:14 37.5 mg BID GELACIO Administration Oxybutynin Chloride 5 mg 08/23/24 09:00 08/23/24 08:50 Oxybutynin Chloride Xl 5 Mg Tabcr PO 09/22/24 08:59 5 mg QAM GELACIO Administration Pantoprazole Sodium 40 mg 08/23/24 09:00 08/23/24 08:50 Pantoprazole 40 Mg Tab PO 09/22/24 08:59 40 mg QAM GELACIO Administration Potassium Chloride 10 meq 08/22/24 21:00 08/23/24 09:05 Potassium Chloride 10 Meq Tabcr PO 09/21/24 20:59 10 meq BID GELACIO Administration Prednisone 40 mg 08/23/24 09:00 08/23/24 08:51 Prednisone 20 Mg Tab PO 09/22/24 08:59 40 mg DAILY GELACIO Administration Umeclidinium/Vilanterol 1 puffs 08/23/24 09:00 08/23/24 08:51 Umeclidinium/Vilanterol 62.5/25mcg 7 Puffs/Inhaler INH 09/22/24 08:59 1 puffs DAILY GELACIO Administration (1) Sepsis Acute respiratory failure type: with hypoxia Sepsis acute organ dysfunction status: with acute organ dysfunction Sepsis type: sepsis due to unspecified organism Severe sepsis acute organ dysfunction type: acute respiratory failure Severe sepsis shock status: without septic shock Qualified Code(s): A41.9 - Sepsis, unspecified organism; R65.20 - Severe sepsis without septic shock; J96.01 - Acute respiratory failure with hypoxia (2) UTI (urinary tract infection) Hematuria presence: without hematuria Urinary tract infection type: acute cystitis Qualified Code(s): N30.00 - Acute cystitis without hematuria (7) HTN (hypertension) Hypertension type: primary hypertension Qualified Code(s): I10 - Essential (primary) hypertension
[2024-08-24] MEDS: CLOPIDOGREL BISULFATE 75 MG TAB PO SCH (09:18)
[2024-08-24 10:18] LABS: Hematocrit (blood only) 29.7 % (37.0-47.0); Hemoglobin 9.4 g/dl (12.0-16.0); Mean Corpuscular Hemoglobin 28.1 pg (25.0-34.0); Mean Corpuscular Hgb Conc 31.6 g/dL (32.0-36.0); Mean Corpuscular Volume 88.7 fL (80.0-100.0); Mean Platelet Volume 9.4 fL (9.4-12.4); Platelet Count 339 K/uL (130-400); RDW Coefficient of Variation 17.2 % (11.5-14.5); RDW Standard Deviation 55.5 fL (36.4-46.3); Red Blood Count 3.35 M/uL (4.20-5.40); White Blood Count 11.28 K/ul (4.8-10.8)
[2024-08-24 10:37] LABS: Albumin Globulin Ratio 0.8 (0.9-2); Albumin Level 2.5 gm/dl (3.4-5.0); BUN Creatinine Ratio 19.2 (10-20); Bilirubin,Total 0.3 mg/dl (0.2-1.0); Calcium 8.3 mg/dl (8.6-10.3); Creatinine Clr Calc Pharmacy 43.3 ml/min; Phosphorus 2.4 mg/dl (2.5-4.9); Potassium 4.5 mmol/L (3.5-5.1); Total Protein 5.5 gm/dl (6.0-8.3)
--- NOTE | 2024-08-24 11:44 | Urology Progress Note ---
Date of Service August 24, 2024 Assessment & Plan (1) Hydronephrosis: (2) UTI (urinary tract infection): Plan - Afebrile, normotensive, tachycardic - Labs reviewed today - WBCs 11.28, hemoglobin 9.4, creatinine 0.78 - Urine culture prelim with Citrobacter and Pseudomonas; Blood cultures prelim no growth x 24 hours - Helms intact and draining appropriately - urine is light red - CT on arrival demonstrated moderate right hydronephrosis and hydroureter to the level of the bladder without obstructing stone which is possibly due to urinary retention or stricture at the right UVJ. There is also mild inflation of the right kidney possibly due to UTI/pyelonephritis. - No plan for acute intervention. OK for diet today from standpoint. - Continue supportive care and antibiotic therapy for treatment of infection. - Maintain Helms catheter. Can hand irrigate as needed. - If she were to clinically deteriorate, we can revisit possible ureteral stent placement. - Urology will follow along - please call with any questions/concerns or changes in status Admission and Anticipated Discharge Date Admission Date: August 22, 2024 Subjective Pt seen at bedside today Awake and resting in bed on arrival No acute distress Denies any pain at present Helms draining light red urine Has been NPO No fevers Review of Systems Constitutional: as per Subjective / HPI Genitourinary: as per Subjective / HPI Physical Exam Constitutional: no acute distress Respiratory: no respiratory distress and no labored breathing Musculoskeletal: Head/Neck/Chest: normocephalic Neurologic: awake Psychiatric: Orientation: alert, oriented to person and cooperative Genitourinary: Helms intact Results & Data Vital Signs (Past 12 Hours) Vital Signs Temp Pulse Pulse Resp BP Pulse Ox O2 Del Method 08/24/24 11:10 36.3 C L 112 H 18 122/86 100 Nasal Cannula 08/24/24 07:22 36.3 C L 109 H 18 126/90 100 Nasal Cannula 08/24/24 03:26 36.9 C 86 18 120/84 94 Nasal Cannula 08/23/24 23:54 79 O2 Flow Rate 08/24/24 11:10 3 08/24/24 07:22 3 08/24/24 03:26 2 08/23/24 23:54 PG Care Time/CCT Total # of Minutes Spent Total Time Spent with Patient: Total time spent is greater than 50% in coordination of care (as documented) at patient's floor/unit and/or counseling patient: Coding Level of Care Code 32641 SUB INP/OBS CARE Diagnoses Hydronephrosis N13.30 UTI (urinary tract infection) N30.00 Hematuria presence: without hematuria Urinary tract infection type: acute cystitis (2) UTI (urinary tract infection) Hematuria presence: without hematuria Urinary tract infection type: acute cystitis Qualified Code(s): N30.00 - Acute cystitis without hematuria
--- NOTE | 2024-08-24 12:42 | Hospitalist Progress Note ---
Date of Service August 24, 2024 Assessment & Plan (1) Sepsis: (2) UTI (urinary tract infection): (3) Atrial fibrillation with RVR: (4) COPD with exacerbation: (5) Chronic hypoxic respiratory failure: (6) Hypokalemia: (7) HTN (hypertension): (8) Anemia: (9) CAD (coronary artery disease): Plan Ms. Johnston is 74 year old female with PMH COPD on chronic 3 L of oxygen, HTN, CAD (STEMI in 2022 s/p RCA intervention), paroxysmal atrial fibrillation, hypothyroidism us admitted for sepsis due to acute complicated cystitis, as well as a fib RVR. Recently admitted to [facility] 07/12 - 07/25 for COPD exacerbation, atrial fibrillation with RVR, Pseudomonas UTI. Patient was noted to have anemia and heme + stools. Endoscopy was attempted however patient could not tolerate the prep. Deferred for outpatient endoscopy. Also noted to have ongoing left elbow wound from surgery for left distal humerus fracture. Imaging was obtained showing intact hardware and no abscess. Patient evaluated by urology with plan for cystoscopy- no plans at this time Discussion of possible hospice with pt's family. 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 UA suggestive of UTI. CT abd/pelvis: Distended urinary bladder. Mild right hydronephrosis and hydroureter without obstructing calculus. The mild hydronephrosis could be due to the urinary bladder distention or a stricture at the right UVJ. There is mild inflammation at the right kidney. Suggest clinical correlation for ascending UTI/early right pyelonephritis. Urology: supportive care, abx, no plans for cysto continue zosyn for now UA with citrobacter discontinue vanc atrial fibrillation with RVR Likely multifactorial due to sepsis, hypokalemia, and missed medications S/p metoprolol 5 mg IV in the ED, with improvement in heart rate Continue metoprolol succinate 37.5 mg twice daily Continue Eliquis COPD with exacerbation Chronic hypoxic respiratory failure Per ED, patient had wheezing on presentation s/p neb, dexamethasone 10 mg IV with improvement Saturating well on chronic 3L of oxygen continue prednisone 40 mg daily, as needed nebs, Mucinex, incentive spirometer, flutter valve Flu, COVID, RSV negative No infiltrate noted on CXR Hypokalemia: K+ 2.9, Mg +1.7 Replace, follow lytes HTN (hypertension): Continue metoprolol, losartan Hold Lasix for now Chronic normocytic Anemia: 11 on admission down to 9, however, baseline looks to be 8-9 Trend cbc Chronic CAD s/p RCA stent in 02/2023. clarified medications with daughter, not on asa but takes plavix and eliquis Continue statin, beta-zaki DVT PROPHYLAXIS On Eliquis Admission and Anticipated Discharge Date Admission Date: August 22, 2024 Subjective Pt was seen in the AM before her procedure. Stated that her eyes were itchy Later notified by nursing that bed bugs were noted in the room Review of Systems Review of Systems: All systems reviewed & are unremarkable except as noted in Subjective Physical Exam Physical Exam: General: Alert, oriented. No acute distress HEENT: NC/AT CV: RRR Resp: Breath sounds decreased bilaterally, no increased effort of breathing Abdomen: Soft, nontender Extremities: No edema in lower extremities bilaterally. Results & Data Results & Data Vital Signs (Past 12 Hours) Vital Signs Temp Pulse Resp BP Pulse Ox O2 Del Method O2 Flow Rate 08/24/24 11:10 36.3 C L 112 H 18 122/86 100 Nasal Cannula 3 08/24/24 07:22 36.3 C L 109 H 18 126/90 100 Nasal Cannula 3 08/24/24 03:26 36.9 C 86 18 120/84 94 Nasal Cannula 2 (1) Sepsis Acute respiratory failure type: with hypoxia Sepsis acute organ dysfunction status: with acute organ dysfunction Sepsis type: sepsis due to unspecified organism Severe sepsis acute organ dysfunction type: acute respiratory failure Severe sepsis shock status: without septic shock Qualified Code(s): A41.9 - Sepsis, unspecified organism; R65.20 - Severe sepsis without septic shock; J96.01 - Acute respiratory failure with hypoxia (2) UTI (urinary tract infection) Hematuria presence: without hematuria Urinary tract infection type: acute cystitis Qualified Code(s): N30.00 - Acute cystitis without hematuria (7) HTN (hypertension) Hypertension type: primary hypertension Qualified Code(s): I10 - Essential (primary) hypertension
--- NOTE | 2024-08-24 14:14 | Electrocardiogram Report ---
Test Reason : Blood Pressure : */* mmHG Vent. Rate : 92 BPM Atrial Rate : * BPM P-R Int : * ms QRS Dur : 70 ms QT Int : 354 ms P-R-T Axes : * 63 33 degrees QTcB Int : 437 ms Atrial fibrillation T wave abnormality, consider lateral ischemia Abnormal ECG When compared with ECG of 23-Aug-2024 04:23, Non-specific change in ST segment in Inferior leads T wave inversion less evident in Anterior leads QT has shortened Confirmed by Meliton Falcon [id number] on 08/24/2024 2:14:25 PM Referred By: REFERRED SELF Confirmed By: Meliton Falcon
[2024-08-24] MEDS: POT PHOSPHATE MONOBASIC W/ SOD TAB PO SCH (20:36)
[2024-08-24] MEDS: TRIMETHOPRIM/POLYMYXIN B OPB SCH (20:38)
[2024-08-25 06:13] LABS: Basophils # (auto) 0.01 K/uL (0.00-0.20); Basophils % (auto) 0.1 %; Hematocrit (blood only) 29.3 % (37.0-47.0); Immature Granulocytes # (auto) 0.23 K/uL (0.01-0.20); Lymphocytes # (auto) 1.94 K/uL (1.20-3.40); Lymphocytes % (auto) 16.7 %; Mean Corpuscular Hemoglobin 27.5 pg (25.0-34.0); Mean Corpuscular Hgb Conc 30.7 g/dL (32.0-36.0); Mean Corpuscular Volume 89.6 fL (80.0-100.0); Mean Platelet Volume 9.3 fL (9.4-12.4); Monocytes # (auto) 0.71 K/uL (0.11-0.59); Monocytes % (auto) 6.1 %; Neutrophils # (auto) 8.72 K/uL (1.40-6.50); Neutrophils % (auto) 75.1 %; Platelet Count 351 K/uL (130-400); RDW Coefficient of Variation 17.1 % (11.5-14.5); RDW Standard Deviation 56.1 fL (36.4-46.3); Red Blood Count 3.27 M/uL (4.20-5.40); White Blood Count 11.61 K/ul (4.8-10.8)
[2024-08-25 06:22] LABS: Albumin Level 2.6 gm/dl (3.4-5.0); Bilirubin,Total 0.2 mg/dl (0.2-1.0); Magnesium 1.9 mg/dl (1.7-2.4); Potassium 3.9 mmol/L (3.5-5.1)
[2024-08-25 06:28] LABS: Albumin Globulin Ratio 0.9 (0.9-2); BUN Creatinine Ratio 17.7 (10-20); Creatinine Clr Calc Pharmacy 42.8 ml/min; Globulin 2.9 gm/dl (2.5-4.0); Phosphorus 2.2 mg/dl (2.5-4.9); Total Protein 5.5 gm/dl (6.0-8.3)
[2024-08-25] MEDS: POTASSIUM PHOSPHATE 15 MMOL in SODIUM CHLORIDE 0.9% 250 ML IV ONE (08:59)
[2024-08-25] MEDS: POTASSIUM PHOS 3 MMOL/1 ML INFUSION IV STA (09:41)
[2024-08-25] MEDS: ONDANSETRON INJ 2 MG/ML 2 ML VIAL IV PRN (11:29)
[2024-08-25] MEDS: POT PHOSPHATE MONOBASIC W/ SOD TAB PO SCH (11:32)
--- NOTE | 2024-08-25 13:30 | Hospitalist Progress Note ---
Date of Service August 25, 2024 Assessment & Plan (1) Sepsis: (2) UTI (urinary tract infection): (3) Atrial fibrillation with RVR: (4) COPD with exacerbation: (5) Chronic hypoxic respiratory failure: (6) Hypokalemia: (7) HTN (hypertension): (8) Anemia: (9) CAD (coronary artery disease): Plan Ms. Johnston is 74 year old female with PMH COPD on chronic 3 L of oxygen, HTN, CAD (STEMI in 2022 s/p RCA intervention), paroxysmal atrial fibrillation, hypothyroidism us admitted for sepsis due to acute complicated cystitis, as well as a fib RVR. Recently admitted to [facility] [place] 07/12 - 07/25 for COPD exacerbation, atrial fibrillation with RVR, Pseudomonas UTI. Patient was noted to have anemia and heme + stools. Endoscopy was attempted however patient could not tolerate the prep. Deferred for outpatient endoscopy. Also noted to have ongoing left elbow wound from surgery for left distal humerus fracture. Imaging was obtained showing intact hardware and no abscess. Patient evaluated by urology with plan for cystoscopy- no plans at this time Discussion of possible hospice with pt's family. 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 UA suggestive of UTI. CT abd/pelvis: Distended urinary bladder. Mild right hydronephrosis and hydroureter without obstructing calculus. The mild hydronephrosis could be due to the urinary bladder distention or a stricture at the right UVJ. There is mild inflammation at the right kidney. Suggest clinical correlation for ascending UTI/early right pyelonephritis. Urology: supportive care, abx, no plans for cysto UA and urine cx with citrobacter and pseudomonas discontinue vanc Zosyn transitioned to po cipro Hypophosphatemia replete as needed atrial fibrillation with RVR Likely multifactorial due to sepsis, hypokalemia, and missed medications S/p metoprolol 5 mg IV in the ED, with improvement in heart rate Continue metoprolol succinate 37.5 mg twice daily Continue Eliquis COPD with exacerbation Chronic hypoxic respiratory failure Per ED, patient had wheezing on presentation s/p neb, dexamethasone 10 mg IV with improvement Saturating well on chronic 3L of oxygen continue prednisone 40 mg daily, as needed nebs, Mucinex, incentive spirometer, flutter valve Flu, COVID, RSV negative No infiltrate noted on CXR Hypokalemia: K+ 2.9, Mg +1.7 Replace, follow lytes HTN (hypertension): Continue metoprolol, losartan Hold Lasix for now Chronic normocytic Anemia: 11 on admission down to 9, however, baseline looks to be 8-9 Trend cbc Chronic CAD s/p RCA stent in 02/2023. clarified medications with daughter, not on asa but takes plavix and eliquis Continue statin, beta-zaki DVT PROPHYLAXIS On Eliquis Admission and Anticipated Discharge Date Admission Date: August 22, 2024 Subjective Pt seen in the early AM Had chest pain at that time with diaphoresis and radiation to the her jaw and arm Notes also having epigastric pain Noted conversion to sinus rhythm from atrial fibrillation in the early AM Daughter called and updated States she would like her mom to go on hospice but she will be discussing that with her this afternoon. Will update physician of her decision in the AM Review of Systems Review of Systems: All systems reviewed & are unremarkable except as noted in Subjective Physical Exam Physical Exam: General: Alert, oriented. No acute distress HEENT: NC/AT CV: RRR Resp: Breath sounds decreased bilaterally, no increased effort of breathing Abdomen: Soft, nontender Extremities: No edema in lower extremities bilaterally. Results & Data Results & Data Vital Signs (Past 12 Hours) Vital Signs Temp Pulse Pulse Resp BP Pulse Ox O2 Del Method 08/25/24 11:38 36.6 C 61 18 128/83 100 Nasal Cannula 08/25/24 08:12 Nasal Cannula 08/25/24 07:40 36.6 C 61 18 151/97 H 100 Nasal Cannula 08/25/24 07:00 64 08/25/24 03:50 62 08/25/24 03:06 36.7 C 110 H 20 120/78 94 Nasal Cannula O2 Flow Rate 08/25/24 11:38 3 08/25/24 08:12 2 08/25/24 07:40 3 08/25/24 07:00 08/25/24 03:50 08/25/24 03:06 2 (1) Sepsis Acute respiratory failure type: with hypoxia Sepsis acute organ dysfunction status: with acute organ dysfunction Sepsis type: sepsis due to unspecified organism Severe sepsis acute organ dysfunction type: acute respiratory failure Severe sepsis shock status: without septic shock Qualified Code(s): A41.9 - Sepsis, unspecified organism; R65.20 - Severe sepsis without septic shock; J96.01 - Acute respiratory failure with hypoxia (2) UTI (urinary tract infection) Hematuria presence: without hematuria Urinary tract infection type: acute cystitis Qualified Code(s): N30.00 - Acute cystitis without hematuria (7) HTN (hypertension) Hypertension type: primary hypertension Qualified Code(s): I10 - Essential (primary) hypertension
--- NOTE | 2024-08-25 16:18 | Urology Progress Note ---
Date of Service August 25, 2024 Assessment & Plan (1) Hydronephrosis: (2) UTI (urinary tract infection): Plan - Afebrile with stable vitals at present - Labs reviewed today - WBCs 11.61, hemoglobin 9.0, creatinine 0.79 - Urine culture grew Citrobacter and Pseudomonas; Blood cultures prelim no growth x 48 hours - Helms intact and draining appropriately - urine is light red - CT on arrival demonstrated moderate right hydronephrosis and hydroureter to the level of the bladder without obstructing stone which is possibly due to urinary retention or stricture at the right UVJ. There is also mild inflation of the right kidney possibly due to UTI/pyelonephritis. - No plan for acute intervention. - Continue supportive care and antibiotic therapy for treatment of infection. - Maintain Helms catheter. Can hand irrigate as needed. - If she were to clinically deteriorate, we can revisit possible ureteral stent placement. - Urology will follow along - please call with any questions/concerns or changes in status Admission and Anticipated Discharge Date Admission Date: August 22, 2024 Subjective Pt seen at bedside today Awake and resting in bed on arrival No acute distress Helms draining light red urine Reports lower abdominal/bladder pain No fevers Review of Systems Constitutional: as per Subjective / HPI Genitourinary: as per Subjective / HPI Physical Exam Constitutional: no acute distress Respiratory: no respiratory distress and no labored breathing Musculoskeletal: Head/Neck/Chest: normocephalic Neurologic: awake Psychiatric: Orientation: alert, oriented to person and cooperative Genitourinary: Helms intact Results & Data Vital Signs (Past 12 Hours) Vital Signs Temp Pulse Pulse Resp BP Pulse Ox O2 Del Method 08/25/24 15:43 36.6 C 58 L 18 125/73 100 Room Air 08/25/24 15:21 Nasal Cannula 08/25/24 14:31 57 L 08/25/24 11:38 36.6 C 61 18 128/83 100 Nasal Cannula 08/25/24 08:12 Nasal Cannula 08/25/24 07:40 36.6 C 61 18 151/97 H 100 Nasal Cannula 08/25/24 07:00 64 O2 Flow Rate 08/25/24 15:43 08/25/24 15:21 3 08/25/24 14:31 08/25/24 11:38 3 05/15/25 08:12 2 08/25/24 07:40 3 08/25/24 07:00 PG Care Time/CCT Total # of Minutes Spent Total Time Spent with Patient: Total time spent is greater than 50% in coordination of care (as documented) at patient's floor/unit and/or counseling patient: Coding Level of Care Code 92558 SUB INP/OBS CARE 05/07MIN Diagnoses Hydronephrosis N13.30 UTI (urinary tract infection) N30.00 Hematuria presence: without hematuria Urinary tract infection type: acute cystitis (2) UTI (urinary tract infection) Hematuria presence: without hematuria Urinary tract infection type: acute cystitis Qualified Code(s): N30.00 - Acute cystitis without hematuria
--- NOTE | 2024-08-25 17:18 | Electrocardiogram Report ---
Test Reason : Blood Pressure : */* mmHG Vent. Rate : 62 BPM Atrial Rate : 62 BPM P-R Int : 138 ms QRS Dur : 90 ms QT Int : 448 ms P-R-T Axes : 69 75 67 degrees QTcB Int : 454 ms Sinus rhythm with Premature atrial complexes Otherwise normal ECG When compared with ECG of 24-Aug-2024 05:44, Sinus rhythm has replaced Atrial fibrillation Vent. rate has decreased by 30 bpm QRS duration has increased Non-specific change in ST segment in Anterior leads Nonspecific T wave abnormality no longer evident in Inferior leads T wave inversion less evident in Anterolateral leads Confirmed by Meliton Falcon ([id number] on 08/25/2024 5:18:02 PM Referred By: REFERRED SELF Confirmed By: Meliton Falcon
[2024-08-25] MEDS: CIPROFLOXACIN 500 MG TAB PO SCH (20:15)
[2024-08-26] MEDS: SODIUM CHLORIDE 0.9% 1,000 ML IV ONE (06:21)
[2024-08-26 07:45] LABS: Hemoglobin 8.3 g/dl (12.0-16.0); Mean Corpuscular Hemoglobin 27.6 pg (25.0-34.0); Mean Corpuscular Hgb Conc 30.7 g/dL (32.0-36.0); Mean Corpuscular Volume 89.7 fL (80.0-100.0); Mean Platelet Volume 9.4 fL (9.4-12.4); Nucleated RBC # (auto) 0.08 K/uL (0.00-0.12); Nucleated RBC % (auto) 0.6 %; Platelet Count 346 K/uL (130-400); RDW Coefficient of Variation 17.1 % (11.5-14.5); RDW Standard Deviation 55.6 fL (36.4-46.3); Red Blood Count 3.01 M/uL (4.20-5.40); White Blood Count 13.71 K/ul (4.8-10.8)
[2024-08-26 08:04] LABS: Basophils # (auto) 0.03 K/uL (0.00-0.20); Basophils % (auto) 0.2 %; Immature Granulocytes # (auto) 0.86 K/uL (0.01-0.20); Immature Granulocytes % (auto) 6.3 %; Lymphocytes # (auto) 2.03 K/uL (1.20-3.40); Lymphocytes % (auto) 14.8 %; Monocytes # (auto) 1.09 K/uL (0.11-0.59); Neutrophils % (auto) 70.7 %
[2024-08-26 08:57] LABS: Albumin Level 2.6 gm/dl (3.4-5.0); Bilirubin,Total 0.2 mg/dl (0.2-1.0); Calcium 7.3 mg/dl (8.6-10.3); Magnesium 1.6 mg/dl (1.7-2.4); Potassium 3.1 mmol/L (3.5-5.1)
[2024-08-26 08:59] LABS: BUN Creatinine Ratio 13.1 (10-20); Creatinine Clr Calc Pharmacy 39.4 ml/min; Globulin 2.7 gm/dl (2.5-4.0); Phosphorus 3.6 mg/dl (2.5-4.9); Total Protein 5.3 gm/dl (6.0-8.3)
[2024-08-26] MEDS: METOPROLOL SUCC 50MG EXT REL TAB PO SCH (10:03)
--- NOTE | 2024-08-26 10:47 | Hospitalist Progress Note ---
Date of Service August 26, 2024 Assessment & Plan (1) Sepsis: (2) UTI (urinary tract infection): (3) Atrial fibrillation with RVR: (4) COPD with exacerbation: (5) Chronic hypoxic respiratory failure: (6) Hypokalemia: (7) HTN (hypertension): (8) Anemia: (9) CAD (coronary artery disease): Plan Ms. Johnston is 74 year old female with PMH COPD on chronic 3 L of oxygen, HTN, CAD (STEMI in 2022 s/p RCA intervention), paroxysmal atrial fibrillation, hypothyroidism us admitted for sepsis due to acute complicated cystitis, as well as a fib RVR. Recently admitted to [facility] 07/12 - 07/25 for COPD exacerbation, atrial fibrillation with RVR, Pseudomonas UTI. Patient was noted to have anemia and heme + stools. Endoscopy was attempted however patient could not tolerate the prep. Deferred for outpatient endoscopy. Also noted to have ongoing left elbow wound from surgery for left distal humerus fracture. Imaging was obtained showing intact hardware and no abscess. Patient evaluated by urology with plan for cystoscopy- no plans at this time Discussion of possible hospice with pt's family. 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 UA suggestive of UTI. CT abd/pelvis: Distended urinary bladder. Mild right hydronephrosis and hydroureter without obstructing calculus. The mild hydronephrosis could be due to the urinary bladder distention or a stricture at the right UVJ. There is mild inflammation at the right kidney. Suggest clinical correlation for ascending UTI/early right pyelonephritis. Urology: supportive care, abx, no plans for cysto UA and urine cx with citrobacter and pseudomonas discontinue vanc Zosyn transitioned to po cipro Hypophosphatemia replete as needed atrial fibrillation with RVR Likely multifactorial due to sepsis, hypokalemia, and missed medications S/p metoprolol 5 mg IV in the ED, with improvement in heart rate Continue metoprolol succinate 37.5 mg twice daily Continue Eliquis COPD with exacerbation Chronic hypoxic respiratory failure Per ED, patient had wheezing on presentation s/p neb, dexamethasone 10 mg IV with improvement Saturating well on chronic 3L of oxygen continue prednisone 40 mg daily, as needed nebs, Mucinex, incentive spirometer, flutter valve Flu, COVID, RSV negative No infiltrate noted on CXR Hypokalemia: K+ 2.9, Mg +1.7 Replace, follow lytes HTN (hypertension): Continue metoprolol, losartan Hold Lasix for now Chronic normocytic Anemia: 11 on admission down to 9, however, baseline looks to be 8-9 Trend cbc Chronic CAD s/p RCA stent in 02/2023. clarified medications with daughter, not on asa but takes plavix and eliquis Continue statin, beta-zaki DVT PROPHYLAXIS On Eliquis Admission and Anticipated Discharge Date Admission Date: August 22, 2024 Subjective Pt was seen in the AM Resting comfortably Minimal discussion of hospice, states she did not discuss this with her daughter yesterday Review of Systems Review of Systems: All systems reviewed & are unremarkable except as noted in Subjective Physical Exam Physical Exam: General: Alert, oriented. No acute distress HEENT: NC/AT CV: RRR Resp: Breath sounds decreased bilaterally, no increased effort of breathing Abdomen: Soft, nontender Extremities: No edema in lower extremities bilaterally. Results & Data Results & Data Vital Signs (Past 12 Hours) Vital Signs Temp Pulse Pulse Resp BP Pulse Ox O2 Del Method 08/26/24 07:49 36.3 C L 101 H 19 145/94 H 99 Nasal Cannula 08/26/24 07:22 94 H 08/26/24 03:20 36.6 C 95 H 18 145/85 H 100 Nasal Cannula 08/25/24 23:04 36.6 C 89 18 138/88 98 Nasal Cannula (1) Sepsis Acute respiratory failure type: with hypoxia Sepsis acute organ dysfunction status: with acute organ dysfunction Sepsis type: sepsis due to unspecified organism Severe sepsis acute organ dysfunction type: acute respiratory failure Severe sepsis shock status: without septic shock Qualified Code(s): A41.9 - Sepsis, unspecified organism; R65.20 - Severe sepsis without septic shock; J96.01 - Acute respiratory failure with hypoxia (2) UTI (urinary tract infection) Hematuria presence: without hematuria Urinary tract infection type: acute cystitis Qualified Code(s): N30.00 - Acute cystitis without hematuria (7) HTN (hypertension) Hypertension type: primary hypertension Qualified Code(s): I10 - Essential (primary) hypertension
--- NOTE | 2024-08-26 14:11 | Urology Progress Note ---
Date of Service August 26, 2024 Assessment & Plan (1) Hydronephrosis: (2) UTI (urinary tract infection): Plan Follow-up for UTI, Hydronephrosis - Afebrile and hemodynamically stable - Labs reviewed today - WBCs 13.71, hemoglobin 8.3, creatinine 0.84 - Urine culture grew Citrobacter and Pseudomonas; Blood cultures prelim no growth x 48 hours - Helms intact and draining appropriately - urine is light pink - CT on arrival demonstrated moderate right hydronephrosis and hydroureter to the level of the bladder without obstructing stone which is possibly due to urinary retention or stricture at the right UVJ. There is also mild inflation of the right kidney possibly due to UTI/pyelonephritis. - No plan for acute intervention. - Continue supportive care and antibiotic therapy for treatment of infection. - Maintain Helms catheter. Can hand irrigate as needed. - If she were to clinically deteriorate, we can revisit possible ureteral stent placement. - Urology will follow peripherally- please call with any questions/concerns or changes in status Attending note: Agree with note as above. Will plan to observe. If patient develops significant febrile illness or worsening pain discomfort or worsening vitals or concern for worsening septic issues would plan for possible stent placement and dilation. Admission and Anticipated Discharge Date Admission Date: August 22, 2024 Subjective Pt seen at bedside today Awake and resting in bed on arrival No acute distress Helms draining light pink urine She reports some mild bladder discomfort No fevers Review of Systems Constitutional: as per Subjective / HPI Genitourinary: as per Subjective / HPI Physical Exam Constitutional: no acute distress Respiratory: no respiratory distress and no labored breathing Musculoskeletal: Head/Neck/Chest: normocephalic Neurologic: awake Psychiatric: Orientation: alert, oriented to person and cooperative Genitourinary: Helms intact Results & Data Vital Signs (Past 12 Hours) Vital Signs Temp Pulse Pulse Resp BP Pulse Ox O2 Del Method 08/26/24 11:39 36.5 C 91 H 18 142/91 H 98 Nasal Cannula 08/26/24 07:49 36.3 C L 101 H 19 145/94 H 99 Nasal Cannula 08/26/24 07:22 94 H 08/26/24 03:20 36.6 C 95 H 18 145/85 H 100 Nasal Cannula PG Care Time/CCT Total # of Minutes Spent Total Time Spent with Patient: Total time spent is greater than 50% in coordination of care (as documented) at patient's floor/unit and/or counseling patient: Coding Level of Care Code 51605 SUB INP/OBS CARE 350MIN Diagnoses Hydronephrosis N13.30 UTI (urinary tract infection) N30.00 Hematuria presence: without hematuria Urinary tract infection type: acute cystitis (2) UTI (urinary tract infection) Hematuria presence: without hematuria Urinary tract infection type: acute cystitis Qualified Code(s): N30.00 - Acute cystitis without hematuria
[2024-08-26] MEDS: MAGNESIUM SULFATE / D5W 1 GM/100 ML BAG IV SCH (16:19)
[2024-08-26] MEDS: POTASSIUM CHLORIDE CRTAB 20 MEQ TABCR PO STA (16:19)
[2024-08-27 07:33] LABS: Basophils # (auto) 0.03 K/uL (0.00-0.20); Basophils % (auto) 0.2 %; Eosinophils # (auto) 0.03 K/uL (0.00-0.50); Eosinophils % (auto) 0.2 %; Hematocrit (blood only) 28.7 % (37.0-47.0); Hemoglobin 9.1 g/dl (12.0-16.0); Immature Granulocytes # (auto) 0.68 K/uL (0.01-0.20); Immature Granulocytes % (auto) 4.7 %; Lymphocytes # (auto) 2.76 K/uL (1.20-3.40); Lymphocytes % (auto) 18.9 %; Mean Corpuscular Hemoglobin 27.8 pg (25.0-34.0); Mean Corpuscular Hgb Conc 31.7 g/dL (32.0-36.0); Mean Corpuscular Volume 87.8 fL (80.0-100.0); Mean Platelet Volume 9.4 fL (9.4-12.4); Monocytes # (auto) 0.84 K/uL (0.11-0.59); Monocytes % (auto) 5.8 %; Neutrophils # (auto) 10.24 K/uL (1.40-6.50); Neutrophils % (auto) 70.2 %; Nucleated RBC # (auto) 0.12 K/uL (0.00-0.12); Nucleated RBC % (auto) 0.8 %; Platelet Count 432 K/uL (130-400); RDW Standard Deviation 54.4 fL (36.4-46.3); Red Blood Count 3.27 M/uL (4.20-5.40); White Blood Count 14.58 K/ul (4.8-10.8)
[2024-08-27 08:18] LABS: Albumin Level 2.7 gm/dl (3.4-5.0); BUN Creatinine Ratio 14.8 (10-20); Bilirubin,Total 0.3 mg/dl (0.2-1.0); Calcium 7.6 mg/dl (8.6-10.3); Creatinine Clr Calc Pharmacy 57.6 ml/min; Globulin 2.8 gm/dl (2.5-4.0); Magnesium 1.9 mg/dl (1.7-2.4); Phosphorus 2.4 mg/dl (2.5-4.9); Potassium 2.6 mmol/L (3.5-5.1); Total Protein 5.5 gm/dl (6.0-8.3)
[2024-08-27] MEDS: POTASSIUM CHLORIDE CRTAB 20 MEQ TABCR PO STA (09:00)
--- NOTE | 2024-08-27 11:46 | Hospitalist Progress Note ---
Date of Service August 27, 2024 Assessment & Plan (1) Sepsis: (2) UTI (urinary tract infection): (3) Atrial fibrillation with RVR: (4) COPD with exacerbation: (5) Chronic hypoxic respiratory failure: (6) Hypokalemia: (7) HTN (hypertension): (8) Anemia: (9) CAD (coronary artery disease): Plan Ms. Johnston is 74 year old female with PMH COPD on chronic 3 L of oxygen, HTN, CAD (STEMI in 2022 s/p RCA intervention), paroxysmal atrial fibrillation, hypothyroidism us admitted for sepsis due to acute complicated cystitis, as well as a fib RVR. Recently admitted to [facility] 07/12 - 07/25 for COPD exacerbation, atrial fibrillation with RVR, Pseudomonas UTI. Patient was noted to have anemia and heme + stools. Endoscopy was attempted however patient could not tolerate the prep. Deferred for outpatient endoscopy. Also noted to have ongoing left elbow wound from surgery for left distal humerus fracture. Imaging was obtained showing intact hardware and no abscess. Patient evaluated by urology with plan for cystoscopy- no plans at this time Discussion of possible hospice with pt's family. 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 UA suggestive of UTI. CT abd/pelvis: Distended urinary bladder. Mild right hydronephrosis and hydrour eter without obstructing calculus. The mild hydronephrosis could be due to the urinary bladder distention or a stricture at the right UVJ. There is mild inflammation at the right kidney. Suggest clinical correlation for ascending UTI/early right pyelonephritis. Urology: supportive care, abx, no plans for cysto UA and urine cx with citrobacter and pseudomonas discontinue vanc Zosyn transitioned to po cipro Awaiting placement- PT/OT recommending rehab Hypophosphatemia replete as needed atrial fibrillation with RVR Likely multifactorial due to sepsis, hypokalemia, and missed medications S/p metoprolol 5 mg IV in the ED, with improvement in heart rate Continue metoprolol succinate 37.5 mg twice daily Continue Eliquis COPD with exacerbation Chronic hypoxic respiratory failure Per ED, patient had wheezing on presentation s/p neb, dexamethasone 10 mg IV with improvement Saturating well on chronic 3L of oxygen continue prednisone 40 mg daily, as needed nebs, Mucinex, incentive spirometer, flutter valve Flu, COVID, RSV negative No infiltrate noted on CXR Hypokalemia: K+ 2.9, Mg +1.7 Replace, follow lytes HTN (hypertension): Continue metoprolol, losartan Hold Lasix for now Chronic normocytic Anemia: 11 on admission down to 9, however, baseline looks to be 8-9 Trend cbc Chronic CAD s/p RCA stent in 02/2023. clarified medications with daughter, not on asa but takes plavix and eliquis Continue statin, beta-zaki DVT PROPHYLAXIS On Eliquis Admission and Anticipated Discharge Date Admission Date: August 22, 2024 Subjective Pt was seen in the AM Denied acute concerns Review of Systems Review of Systems: All systems reviewed & are unremarkable except as noted in Subjective Physical Exam Physical Exam: General: Alert, oriented. No acute distress HEENT: NC/AT CV: RRR Resp: Breath sounds decreased bilaterally, no increased effort of breathing Abdomen: Soft, nontender Extremities: No edema in lower extremities bilaterally. Results & Data Results & Data Vital Signs (Past 12 Hours) Vital Signs Temp Pulse Pulse Resp BP Pulse Ox O2 Del Method 08/27/24 11:39 36.6 C 91 H 18 150/85 H 100 Nasal Cannula 08/27/24 08:00 90 08/27/24 07:44 36.7 C 76 18 148/89 H 100 Nasal Cannula 08/27/24 03:15 36.5 C 89 18 149/89 H 99 Nasal Cannula O2 Flow Rate 08/27/24 11:39 08/27/24 08:00 08/27/24 07:44 3 08/27/24 03:15 (1) Sepsis Acute respiratory failure type: with hypoxia Sepsis acute organ dysfunction status: with acute organ dysfunction Sepsis type: sepsis due to unspecified organism Severe sepsis acute organ dysfunction type: acute respiratory failure Severe sepsis shock status: without septic shock Qualified Code(s): A41.9 - Sepsis, unspecified organism; R65.20 - Severe sepsis without septic shock; J96.01 - Acute respiratory failure with hypoxia (2) UTI (urinary tract infection) Hematuria presence: without hematuria Urinary tract infection type: acute cystitis Qualified Code(s): N30.00 - Acute cystitis without hematuria (7) HTN (hypertension) Hypertension type: primary hypertension Qualified Code(s): I10 - Essential (primary) hypertension
--- NOTE | 2024-08-27 12:46 | Urology Progress Note ---
Date of Service August 27, 2024 Assessment & Plan (1) Hydronephrosis: (2) UTI (urinary tract infection): Plan Follow-up for UTI, Hydronephrosis - Afebrile and hemodynamically stable - Labs reviewed today -overall stable. White count however has gone up to 14.58. Creatinine now down to 0.61. - Urine culture grew Citrobacter and Pseudomonas; Blood cultures prelim no growth x 48 hours - Helms intact and draining appropriately - urine is clear yellow. - CT on arrival demonstrated moderate right hydronephrosis and hydroureter to the level of the bladder without obstructing stone which is possibly due to urinary retention or stricture at the right UVJ. There is also mild inflation of the right kidney possibly due to UTI/pyelonephritis. Reviewed options with patient. Has now been on antibiotics. Is having a mild increase in the white count this has been going over the last few days. Has not developed febrile illness. Did discuss possible need for urgent/emergent intervention if patient's white count does significantly increase or patient develops severe fevers. Creatinine has stabilized now down to 0.61. Did review options for cystoscopy and possible dilation and stent placement or biopsy and stent placement depending on findings. Does appear to have obstruction occurring at the UVJ. Did discuss possible development of further episodes of pyelonephritis if obstructive issues continue. Did discuss potential option for maintenance of Helms catheter as a management option for ongoing obstructive issues. Has not had severe or significant increase in bleeding or other problems and currently urine appears to be clear. - Continue supportive care and antibiotic therapy for treatment of infection. - Maintain Helms catheter. Can hand irrigate as needed. Will plan to observe. If patient develops significant febrile illness or worsening pain discomfort or worsening vitals or concern for worsening septic issues would plan for possible stent placement and dilation. Did discuss with patient possibly moving forward with assessment and interven tion while patient is in the hospital. Did discuss also intervention while on active coverage for her known UTIs. Discussed possible options for evaluation and dilation or biopsy depending on obstructive issues. Discussed other alternatives. Patient was considering this is a potential option. Will make Npo. at midnight in order to move forward with intervention if patient and family chooses to proceed. Will consider moving forward with cystoscopy and possible ureteroscopy and dilation bilaterally with stent placement. If patient does suddenly become considerably worse or develop significant febrile illness would need to be taken urgently/emergently for stent placement and drainage. Admission and Anticipated Discharge Date Admission Date: August 22, 2024 Subjective Patient admitted with hydronephrosis, infection, and discomfort. Patient is currently afebrile. Has been undergoing supportive care with oral medications, IV medications, IV fluids, and oral intake. Has been tolerating antibiotics without considerable increase in pain or major issues. Has not developed severe vomiting or other issues. Has not experienced fever or chills. Has been tolerating oral medications. Is tolerating fluids. Has noticed some frequency and urgency. Has not had severe pain in the back and flank. Does have occasional burning and irritation. No severe episodes or major changes. Has not passed a large amount of blood or debris. Patient does have catheter in place. Review of Systems Review of Systems: All systems reviewed & are unremarkable except as noted in HPI & below Physical Exam Physical Exam: General: Alert in no acute distress. Advanced age. HEENT: Normocephalic Atraumatic. Inspection normal. Cranial Nerves 2-12 Grossly intact. Normal inspection of face. Normal inspection of neck. Psychologic: Normal affect. Respiratory: Nonlabored. No use of accessory muscles. No tachypnea or dyspnea. Cardiovascular: No tachycardia Skin: [place] and Dry. No rashes or visible lesions. Extremities/Lymphatics: No edema Abdomen: Soft Non-distended. No rebound or guarding. : Helms catheter in place draining clear yellow urine. Results & Data Vital Signs (Past 12 Hours) Vital Signs Temp Pulse Pulse Resp BP Pulse Ox O2 Del Method 08/27/24 11:39 36.6 C 91 H 18 150/85 H 100 Nasal Cannula 08/27/24 08:00 90 08/27/24 07:44 36.7 C 76 18 148/89 H 100 Nasal Cannula 08/27/24 03:15 36.5 C 89 18 149/89 H 99 Nasal Cannula O2 Flow Rate 08/27/24 11:39 08/27/24 08:00 08/27/24 07:44 3 08/27/24 03:15 PG Care Time/CCT Total # of Minutes Spent Total Time Spent with Patient: Total time spent is greater than 50% in coordination of care (as documented) at patient's floor/unit and/or counseling patient: Coding Level of Care Code 36567 SUB INP/OBS CARE 3/50MIN Diagnoses Hydronephrosis N13.30 UTI (urinary tract infection) N30.00 Hematuria presence: without hematuria Urinary tract infection type: acute cystitis Time Spent (min) 55 (2) UTI (urinary tract infection) Hematuria presence: without hematuria Urinary tract infection type: acute cystitis Qualified Code(s): N30.00 - Acute cystitis without hematuria
[2024-08-27] MEDS: POTASSIUM CHLORIDE CRTAB 20 MEQ TABCR PO SCH (14:04)
[2024-08-28 07:52] LABS: Basophils # (auto) 0.03 K/uL (0.00-0.20); Basophils % (auto) 0.2 %; Eosinophils # (auto) 0.04 K/uL (0.00-0.50); Eosinophils % (auto) 0.3 %; Hematocrit (blood only) 28.3 % (37.0-47.0); Hemoglobin 9.2 g/dl (12.0-16.0); Immature Granulocytes % (auto) 4.3 %; Lymphocytes # (auto) 2.38 K/uL (1.20-3.40); Lymphocytes % (auto) 17.2 %; Mean Corpuscular Hemoglobin 28.4 pg (25.0-34.0); Mean Corpuscular Hgb Conc 32.5 g/dL (32.0-36.0); Mean Corpuscular Volume 87.3 fL (80.0-100.0); Mean Platelet Volume 8.9 fL (9.4-12.4); Monocytes # (auto) 0.91 K/uL (0.11-0.59); Monocytes % (auto) 6.6 %; Neutrophils # (auto) 9.86 K/uL (1.40-6.50); Neutrophils % (auto) 71.4 %; Nucleated RBC # (auto) 0.07 K/uL (0.00-0.12); Nucleated RBC % (auto) 0.5 %; Platelet Count 495 K/uL (130-400); RDW Coefficient of Variation 17.1 % (11.5-14.5); RDW Standard Deviation 53.1 fL (36.4-46.3); Red Blood Count 3.24 M/uL (4.20-5.40); White Blood Count 13.82 K/ul (4.8-10.8)
[2024-08-28 08:39] LABS: Calcium 7.7 mg/dl (8.6-10.3); Creatinine Clr Calc Pharmacy 63.8 ml/min; Magnesium 1.7 mg/dl (1.7-2.4); Phosphorus 3.2 mg/dl (2.5-4.9); Potassium 2.7 mmol/L (3.5-5.1)
--- NOTE | 2024-08-28 09:19 | Urology Progress Note ---
Date of Service August 28, 2024 Assessment & Plan (1) Hydronephrosis: (2) UTI (urinary tract infection): Plan Follow-up for UTI, Hydronephrosis possible UPJ obstruction. - Afebrile and hemodynamically stable No severe major change in symptoms or bother. No fever overnight. Has been dealing with occasional episodes of hypertension. Is on 3 L nasal cannula with O2 sats at 94%. - Labs reviewed White count remains elevated. Patient has been tolerating IV antibiotics. Crea tinine has remained stable at 0.52. Most recent white count now 13.82. This is down from yesterday 14. - Urine culture grew Citrobacter and Pseudomonas; Blood cultures prelim no growth x 48 hours Currently on broad-spectrum antibiotics. - Helms intact and draining appropriately - urine is clear yellow. - CT on arrival demonstrated moderate right hydronephrosis and hydroureter to the level of the bladder without obstructing stone which is possibly due to urinary retention or stricture at the right UVJ. There is also mild inflation of the right kidney possibly due to UTI/pyelonephritis. On review and interpretation by myself of imaging concern for possible UVJ obstruction versus stricture versus other obstruction leading to increased risk for pyelonephritis and potential issues. Patient appears to have fairly severe hydronephrosis and hydroureter with obstruction causing severe dilation of the ureter on the right going down to the junction of the ureter with bladder. Reviewed options with patient. I discussed extensively yesterday current findings and concern. Discussed need for assessment at some point due to significant hydronephrosis and severe pyelonephritis. Has now been on antibiotics. White count has remained elevated. Has not developed febrile illness. Did discuss possible need for urgent/emergent intervention if patient's white count does significantly in crease or patient develops severe fevers. Once again reviewed options for intervention to assess possible source of obstruction and potentially place drain for improved drainage for treatment of likely pyelonephritis. Patient had requested this discussed with her family. The patient's daughter was called this morning at approximately 8:30 AM. Extensively reviewed current findings concerns and issues. Discussed and reviewed options moving forward. Did review options for cystoscopy and possible dilation and stent placement or biopsy and stent placement depending on findings. Reviewed concern for findings on imaging for possible obstruction occurring at the UVJ. Discussed potential causes including stricture mass or lesion or other possible causes of obstruction. Did discuss possible development of further episodes of pyelonephritis if obstructive issues continue. Discussed option for stent placement to facilitate drainage. Did discuss evaluation of both sides with retrograde pyelogram. Risk and benefits were thoroughly reviewed. Reviewed need to assess with cystoscopy at some point. Did discuss with patient's persistently elevated white count and continued issues option to move forward with cystoscopy and assessment while inpatient. Both patient and family were interested in this option. Patient has been n.p.o. since midnight. Risks and benefits discussed at length for procedure. These include bleeding, infection, injury to surrounding tissues or organs, and risks associated with anesthesia. Patient states understanding and agrees to proceed. Will sign consent and schedule. Plan to move forward with cystoscopy and possible ureteroscopy and dilation bilaterally with stent placement. If patient does suddenly become considerably worse or develop significant febrile illness would need to be taken urgently/emergently for stent placement and drainage. Admission and Anticipated Discharge Date Admission Date: August 22, 2024 Subjective Patient admitted with hydronephrosis, infection, and discomfort. Patient is currently afebrile. Initial reports on imaging had mild hydronephrosis however on review of CT and review and interpretation by myself patient appears to have severe hydronephrosis with severe hydroureter on the right. Patient's white count has been elevated. Has been increasing the last few days. Has gone down slightly from over 14 yesterday to now 13.82. Still elevated. Creatinine came back 0.52. Had discussed yesterday with patient possible intervention especially if patient has persistent white count while on antibiotics. Discussed need to notably evaluate the obstructive issue with the possible UPJ obstruction. Patient requested this to be discussed with her family. Spoke with patient's daughter this morning. Explained concerns and issues. Multiple questions answered. Has been undergoing supportive care with oral medications, IV medications, IV fluids, and oral intake. Has been tolerating antibiotics without considerable increase in pain or major issues. Has not developed severe vomiting or other issues. Has not experienced fever or chills. Has been tolerating oral medications. Is tolerating fluids. Has noticed some frequency and urgency. Has not had severe pain in the back and flank. Does have occasional burning and irritation. No severe episodes or major changes. Has not passed a large amount of blood or debris. Patient does have catheter in place. Review of Systems Review of Systems: All systems were reviewed. Any pertinent positives and/or negatives are listed in the history of present illness section. Physical Exam Physical Exam: General: Alert in no acute distress. Advanced age. HEENT: Normocephalic Atraumatic. Inspection normal. Cranial Nerves 2-12 Grossly intact. Normal inspection of face. Normal inspection of neck. Psychologic: Normal affect. Respiratory: Nonlabored. No use of accessory muscles. No tachypnea or dyspnea. Cardiovascular: No tachycardia Skin: [place] and Dry. No rashes or visible lesions. Extremities/Lymphatics: No edema Abdomen: Soft Non-distended. No rebound or guarding. : Helms catheter in place draining clear yellow urine. Results & Data Vital Signs (Past 12 Hours) Vital Signs Temp Pulse Pulse Resp BP Pulse Ox O2 Del Method 08/28/24 07:49 79 08/28/24 07:36 36.4 C L 79 19 169/92 H 94 Nasal Cannula 08/28/24 02:59 36.6 C 86 18 158/45 H 100 Nasal Cannula 08/28/24 00:00 79 08/27/24 23:10 36.6 C 85 18 149/50 H 100 Nasal Cannula O2 Flow Rate 08/28/24 07:49 08/28/24 07:36 3 08/28/24 02:59 08/28/24 00:00 08/27/24 23:10 PG Care Time/CCT Total # of Minutes Spent Total Time Spent with Patient: Total time spent is greater than 50% in coordination of care (as documented) at patient's floor/unit and/or counseling patient: Coding Level of Care Code 89970 SUB INP/OBS CARE 3/50MIN Diagnoses Hydronephrosis N13.30 UTI (urinary tract infection) N30.00 Hematuria presence: without hematuria Urinary tract infection type: acute cystitis (2) UTI (urinary tract infection) Hematuria presence: without hematuria Urinary tract infection type: acute cystitis Qualified Code(s): N30.00 - Acute cystitis without hematuria
[2024-08-28] MEDS: POTASSIUM CHLORIDE / WTR 10 MEQ/100 ML PLCT IV SCH (10:15)
[2024-08-28] MEDS ORDERED: PROPOFOL IV EMULSION 10 MG/ML 20 ML VIAL IV ONE (10:40)
[2024-08-28] MEDS ORDERED: fentaNYL citrate PF 100 MCG/2 ML VIAL ONE (10:41)
[2024-08-28] MEDS ORDERED: MIDAZOLAM HCL 1 MG/ML 2ML VIAL ONE (10:41)
--- NOTE | 2024-08-28 10:41 | Anesthesiology Consultation ---
Date of Service August 28, 2024 Assessment & Plan (1) Sepsis: (2) Hydronephrosis: (3) Atrial fibrillation with RVR: (4) UTI (urinary tract infection): Chart Review Chart Review: Acceptable Risk for Surgery Consults Requested none ASA [id number] Proposed Anesthesia Anesthesia Type: MAC Risk / Benefits Reviewed With: PT / POA / Parent / Guardian, Accepts Plan and Informed Consent Obtained History Surgery Operation Date: 08/28/24 11:00 Proposed Procedures p Cystoscopy with Bilateral Stent Insertion(Bilateral) - Pascual Newberry, Height/Weight Height: 5 ft 1 in Weight: 43.2 kg Allergies Allergy/AdvReac Type Severity Reaction Status Date / Time bee venom protein (honey bee) Allergy Severe SWELLING Verified 01/30/24 16:12 SEVERE doxycycline Allergy Intermediate Vomiting Verified 01/30/24 16:12 Medications Home Medications Medication Instructions Recorded Confirmed Last Taken multivitamin 1 tab PO DAILY #0 tabs 02/07/14 08/22/24 07/10/24 omega 9-ejw-yab-fish oil 1,000 mg 1 cap PO DAILY #0 caps 04/22/17 08/22/24 07/10/24 (120 mg-180 mg) capsule (Fish Oil) magnesium oxide 400 mg PO BID #0 tabs 06/01/17 08/22/24 07/10/24 apixaban 5 mg tablet (Eliquis) 5 mg PO BID 12/06/23 08/22/24 07/10/24 atorvastatin 40 mg tablet 40 mg PO QAM 12/06/23 08/22/24 07/10/24 citalopram 40 mg tablet 40 mg PO QAM 12/06/23 08/22/24 07/11/24 clopidogrel 75 mg tablet 75 mg PO QAM 12/06/23 08/22/24 07/11/24 fluticasone propionate 115 2 puff inhalation AMHS 12/06/23 08/22/24 07/10/24 mcg-salmeterol 21 mcg/actuation HFA inhaler gabapentin 300 mg capsule 300 mg PO BID 12/06/23 08/22/24 07/10/24 levothyroxine 25 mcg tablet 25 mcg PO DAILYBB 12/06/23 08/22/24 07/10/24 oxybutynin chloride 5 mg 5 mg PO QAM 08/08/22/24 07/10/24 tablet,extended release 24 hr potassium chloride 10 mEq 10 meq PO AMHS 12/06/23 08/22/24 07/10/24 tablet,extended release(part/cryst) (Klor-Con M) nitroglycerin 0.4 mg sublingual 0.4 mg sublingual Q5M PRN chest 12/09/23 08/22/24 07/10/24 tablet (Nitrostat) pain #30 tabs ipratropium 0.5 mg-albuterol 3 mg 3 ml NEB QIDR PRN shortness of 12/28/23 08/22/24 07/10/24 (2.5 mg base)/3 mL nebulization breath #90 mL soln albuterol sulfate 90 mcg/actuation 2 puff inhalation Q4 PRN WHEEZING 01/30/24 08/22/24 07/10/24 aerosol inhaler OR COUGH pantoprazole 40 mg tablet,delayed 40 mg PO QAM 01/30/24 08/22/24 07/10/24 release (Protonix) tiotropium bromide 18 mcg capsule 1 cap inhalation QAM 03/02/24 08/22/24 07/10/24 with inhalation device alendronate 70 mg tablet 70 mg PO WK 03/15/24 08/22/24 07/11/24 cholecalciferol (vitamin D3) 50 50 mcg PO DAILY 03/24/24 08/22/24 07/10/24 mcg (2,000 unit) tablet (Vitamin D3) furosemide 40 mg tablet 20 mg PO QAM 03/24/24 08/22/24 07/10/24 oxycodone 5 mg tablet 5 mg PO Q4H PRN pain #15 tabs 04/01/24 08/22/24 07/10/24 phenazopyridine 200 mg tablet 200 mg PO TID PRN pain #30 tabs 07/09/24 08/22/24 07/10/24 (Pyridium) losartan 25 mg tablet 25 mg PO QAM #30 tabs 07/25/24 08/22/24 Unknown metoprolol succinate 25 mg 37.5 mg (1.5 x 25 mg) PO BID #60 07/25/24 08/22/24 Unknown tablet,extended release 24 hr tabs Active Medications Generic Name Dose Route Start Last Admin Trade Name Freq PRN Reason Stop Dose Admin Acetaminophen 650 mg 08/22/24 15:50 08/28/24 00:25 Acetaminophen 325 Mg Tab PO 09/21/24 15:49 650 mg Q4H PRN Administration Pain or Fever Apixaban 5 mg 08/22/24 21:00 08/27/24 20:23 Apixaban 5 Mg Tablet PO 09/21/24 20:59 5 mg BID GELACIO Administration Atorvastatin Calcium 40 mg 08/23/24 09:00 08/27/24 08:17 Atorvastatin 40 Mg Tab PO 09/22/24 08:59 40 mg QAM GELACIO Administration Ciprofloxacin 500 mg 08/25/24 21:00 08/27/24 20:23 Ciprofloxacin 500 Mg Tab PO 09/04/24 20:59 500 mg BID GELACIO Administration Protocol Citalopram Hydrobromide 40 mg 08/23/24 09:00 08/27/24 08:16 Citalopram 40 Mg Tab PO 09/22/24 08:59 40 mg QAM GELACIO Administration Clopidogrel Bisulfate 75 mg 08/24/24 09:00 08/27/24 08:17 Clopidogrel Bisulfate 75 Mg Tab PO 09/23/24 08:59 75 mg QAM GELACIO Administration Fluticasone Furoate 1 puffs 08/23/24 09:00 08/28/24 08:57 Fluticasone Furoate 100mcg 14 Puffs/Inhaler INH 09/22/24 08:59 1 puffs DAILY GELACIO Administration Gabapentin 300 mg 08/22/24 21:00 08/27/24 20:24 Gabapentin 300 Mg Cap PO 09/21/24 20:59 300 mg BID GELACIO Administration Guaifenesin 1,200 mg 08/22/24 21:00 08/27/24 20:24 Guaifenesin 600 Mg Tabcr PO 09/21/24 20:59 1,200 mg Q12 GELACIO Administration Hydromorphone HCl 0.25 mg 08/22/24 20:46 08/27/24 09:23 Hydromorphone Inj 0.5 Mg/0.5 Ml Syr IV 09/05/24 20:45 0.25 mg Q4H PRN Administration Mod-Sev Pain (Scale 4-10) Levothyroxine Sodium 25 mcg 08/23/24 06:30 08/28/24 06:04 Levothyroxine Sodium 25 Mcg Tablet PO 09/22/24 06:29 25 mcg DAILYBB GELACIO Administration Losartan Potassium 25 mg 08/23/24 09:00 08/27/24 08:18 Losartan Potassium 25 Mg Tab PO 09/22/24 08:59 25 mg QAM GELACIO Administration Magnesium Oxide 400 mg 08/22/24 21:00 08/27/24 20:25 Magnesium Oxide 400 Mg Tab PO 09/21/24 20:59 400 mg BID GELACIO Administration Metoprolol Succinate 50 mg 08/26/24 09:00 08/27/24 20:26 Metoprolol Succ 50mg Ext Rel Tab PO 09/25/24 08:59 50 mg BID GELACIO Administration Ondansetron HCl 4 mg 08/25/24 08:20 08/27/24 09:23 Ondansetron Inj 2 Mg/Ml 2 Ml Vial IV 09/24/24 08:19 4 mg Q6H PRN Administration Nausea And Vomiting Oxybutynin Chloride 5 mg 08/23/24 09:00 08/27/24 08:17 Oxybutynin Chloride Xl 5 Mg Tabcr PO 09/22/24 08:59 5 mg QAM GELACIO Administration Pantoprazole Sodium 40 mg 08/23/24 09:00 08/27/24 08:17 Pantoprazole 40 Mg Tab PO 09/22/24 08:59 40 mg QAM GELACIO Administration Polymyxin/Trimethoprim Sulfate 1 drops 08/24/24 21:00 08/28/24 09:06 Trimethoprim/Polymyxin B OPB 09/23/24 20:59 1 drops QID GELACIO Administration Potassium Chloride 20 meq 08/27/24 14:00 08/27/24 21:04 Potassium Chloride Crtab 20 Meq Tabcr PO 09/26/24 13:59 20 meq TID GELACIO Administration Potassium Phosphate 2 tab 08/25/24 09:00 08/27/24 20:26 Pot Phosphate Monobasic W/ Sod Tab PO 09/24/24 08:59 2 tab QID GELACIO Administration Prednisone 40 mg 08/23/24 09:00 08/27/24 08:18 Prednisone 20 Mg Tab PO 09/22/24 08:59 40 mg DAILY GELACIO Administration Umeclidinium/Vilanterol 1 puffs 08/23/24 09:00 08/28/24 08:57 Umeclidinium/Vilanterol 62.5/25mcg 7 Puffs/Inhaler INH 09/22/24 08:59 1 puffs DAILY GELACIO Administration NPO Date Last Intake of Fluids: 08/27/24 Time Last Intake of Fluids: 23:59 Date Last Intake of Solids: 08/27/24 Time Last Intake of Solids: 23:59 Past Medical History Medical History (Updated 08/28/24 @ 10:44 by Bertha Valladares DO) Depression GERD (gastroesophageal reflux disease) COPD with exacerbation Dyslipidemia, goal LDL below 70 Chronic hypoxic respiratory failure 3L NC chronic Hypothyroidism CAD (coronary artery disease) 2022 - STEMI w/ RCA interventions Anemia COPD (chronic obstructive pulmonary disease) PAF (paroxysmal atrial fibrillation) HTN (hypertension) Myocardial infarction due to demand ischemia Non-ST elevation [place] (NSTEMI) Macular degeneration Tobacco use disorder Atrial fibrillation Diabetes pt with active bedbugs so we taken straight to OR for preop and will stay for phase 1 recovery in OR Exercise / Class Metabolic Activity III < 4 Walking/Shop/Light housework Past Surgical History Surgical History (Updated 08/28/24 @ 10:38 by Bertha Valladares DO) S/P ORIF (open reduction internal fixation) fracture H/O skin graft History of tonsillectomy H/O heart surgery History of cholecystectomy Hx of tubal ligation Past Anesthesia History No Hx of Anesthesia Complications and No Family Hx of Anesthesia Complications History of PONV No Hx of PONV and No Hx of Motion Sickness Social History Smoking Status: Current every day smoker Smoking cigarettes per day: 5 Do You Dip or Chew Tobacco: No Hx Alcohol Use: No Hx Substance Use: No substance use type: does not use Physical Exam Vital Signs Last Vital Signs Temp 36.4 C L 08/28/24 07:36 Pulse 79 08/28/24 07:49 Resp 19 08/28/24 07:36 BP 169/92 H 08/28/24 07:36 Pulse Ox 94 08/28/24 07:36 O2 Del Method Nasal Cannula 08/28/24 07:36 O2 Flow Rate 3 08/28/24 07:36 Constitutional + cachectic ENMT Mouth: + edentulous; no TMJ abnormality Thyromental Distance: > or= 3.5 Finger Breadths Mallampati Class: I Neck normal visual inspection and trachea midline; neck extension not limited Respiratory normal respiratory effort Auscultation: lungs clear to auscultation bilaterally Cardiovascular Rate/Rhythm: regular rate and regular rhythm Heart Sounds: no murmur Musculoskeletal Spine: normal cervical ROM Extremities: full ROM of extremities Neurologic moves all extremities Psychiatric Orientation: alert and oriented x 3 Testing Laboratory Results 08/28/24 07:16 08/28/24 07:16 Urine Color Yellow 08/22/24 12:34 Urine Appearance Turbid (Clear) A 08/22/24 12:34 Urine pH 7.5 (4.5-7.5) 08/22/24 12:34 Ur Specific [place] 1.011 (1.000-1.030) 08/22/24 12:34 Urine Protein 2+ (Negative) H 08/22/24 12:34 Urine Glucose (UA) Negative (Negative) 08/22/24 12:34 Urine Ketones Trace (Negative) H 08/22/24 12:34 Urine Nitrite Positive (Negative) A 08/22/24 12:34 Ur Leukocyte Esterase 3+ (Negative) H 08/22/24 12:34 Urine WBC (Auto) >50 /hpf (0-5) H 08/22/24 12:34 Urine RBC (Auto) 0-2 /hpf (0-2) 08/22/24 12:34 U Hyaline Cast (Auto) 11-20 /lpf (0-2) H 08/22/24 12:34 U Epithel Cells (Auto) 0-2 /hpf (0-2) 08/22/24 12:34 Urine Bacteria (Auto) 4+ (None Seen) H 08/22/24 12:34 08/22/24 11:14 Aerobic Blood Culture - Final Blood No growth in Aerobic bottle after 5 days. Anaerobic Blood Culture - Final No growth in Anaerobic bottle after 5 days. 08/22/24 10:56 Aerobic Blood Culture - Final Blood No growth in Aerobic bottle after 5 days. Anaerobic Blood Culture - Final No growth in Anaerobic bottle after 5 days. 08/22/24 12:34 Urine Culture - Final Urine,Straight Cath Citrobacter freundii complex Pseudomonas aeruginosa LK currently being replaced by medicine Electrocardiogram Date: 08/25/24 Vent. Rate : 62 BPM Atrial Rate : 62 BPM P-R Int : 138 ms QRS Dur : 90 ms QT Int : 448 ms P-R-T Axes : 69 75 67 degrees QTcB Int : 454 ms Sinus rhythm with Premature atrial complexes Otherwise normal ECG When compared with ECG of 24-Aug-2024 05:44, Sinus rhythm has replaced Atrial fibrillation Vent. rate has decreased by 30 bpm QRS duration has increased Non-specific change in ST segment in Anterior leads Nonspecific T wave abnormality no longer evident in Inferior leads T wave inversion less evident in Anterolateral leads Chest X-Ray Date: 08/22/24 Findings: + NAD and + cardiomegaly; no pulmonary vascular congestion Echocardiogram Date: 07/17/24 EF: 55-60% RWMA: + none Valvular Disease: + no significant valvular disease Apical thickening possible foreshortened view but can rule out apical hypertrophic cardiomyopathy (1) Sepsis Acute respiratory failure type: with hypoxia Sepsis acute organ dysfunction status: with acute organ dysfunction Sepsis type: sepsis due to unspecified organism Severe sepsis acute organ dysfunction type: acute respiratory failure Severe sepsis shock status: without septic shock Qualified Code(s): A41.9 - Sepsis, unspecified organism; R65.20 - Severe sepsis without septic shock; J96.01 - Acute respiratory failure with hypoxia (4) UTI (urinary tract infection) Hematuria presence: without hematuria Urinary tract infection type: acute cystitis Qualified Code(s): N30.00 - Acute cystitis without hematuria
[2024-08-28] MEDS ORDERED: KETAMINE HCL 10MG/ML SYR ONE (10:42)
[2024-08-28] MEDS ORDERED: ONDANSETRON INJ 2 MG/ML 2 ML VIAL IV PRN (10:48)
[2024-08-28] MEDS ORDERED: ePHEDrine sulfate 50 MG/ML AMP IV PRN (10:48)
[2024-08-28] MEDS ORDERED: HYDROmorphone INJ 1 MG/ML SYRINGE IV PRN (10:48)
[2024-08-28] MEDS ORDERED: ALBUT/IPRATROP 3MG/0.5MG NEB 3 ML VIAL INH PRN (10:48)
[2024-08-28] MEDS ORDERED: ATROPINE SULFATE 0.1 MG/ML 10ML SYR IV PRN (10:48)
[2024-08-28] MEDS ORDERED: fentaNYL citrate PF 100 MCG/2 ML VIAL IV PRN (10:48)
[2024-08-28] MEDS: ceFAZolin 2,000 MG/15 ML IV PUSH IV ONE (11:42)
[2024-08-28] MEDS: DIATRIZOATE MEGLUMINE 30% 100ML VIAL INSTIL ONE (11:49)
[2024-08-28] MEDS ORDERED: ONDANSETRON INJ 2 MG/ML 2 ML VIAL ONE (11:53)
--- NOTE | 2024-08-28 12:06 | Operative Report ---
PG Post Operative Report Pre & Post Diagnosis Right Hydronephrosis, Pyelonephritis Same Operation Date: 08/28/24 11:00 <No data on this case meets the specified criteria> I identified the patient and participated in the time-out.: Yes Procedure Cystoscopy with Bilateral retrograde pyelogram. Right Ureteroscopy with ureteral dilation and stent placement Operation Date: 08/28/24 11:00 <No data on this case meets the specified criteria> Surgeon Pascual Newberry, II, DO Assignment Agent None Estimated Blood Loss 1 Findings Consistent with Post-Op Diagnosis Trabeculation and diverticulum within bladder. Significant inflammation on the posterior wall likely secondary to catheter. No filling defects or major issues on left. Significant distention of the right ureter and right hydronephrosis with significant narrowing at the UVJ. Stricture within the right distal ureter. Dilated Specimens None Drains 7 [place] by 24 cm stent on right 18 [place] silicone catheter Anesthesia Type General Complications none Disposition Disposition: Recovery Room Indications Patient with bothersome right hydronephrosis and recurrent infection with pyelonephritis. Patient was currently admitted secondary to recurrent in fections and was having persistent elevated white count. Risks and benefits discussed at length. Description of Procedure Patient was consented and brought back to the operating room. Patient was placed under anesthesia in the supine position and moved to the dorsal lithotomy position. Patient was prepped and draped in the regular sterile fashion. A time out was completed. A 30degree Cystoscope was placed into the bladder and the entire bladder was examined. The UO's were identified. The bladder was found to have areas of trabeculation and diverticulum. There was significant thickening and irritation and inflammation on the posterior wall likely secondary to catheter. The UO was cannulized with a catheter and a retrograde pyelogram was completed. The left side appeared to have no sign of major obstruction no sign of hydronephrosis no filling defects or other abnormalities. The right had significant hydroureter and hydronephrosis with hydroureter appearing to travel all the way down to the insertion into the bladder. A wire was then placed on the right. The Rigid ureteroscope was taken into the ureter. Immediately approximately 3 to 4 mm past the UO a significant stricture was noted. The wire appeared to go through the lumen. The scope was difficult to advance secondary to the stricture. Proximal to this there was significant distention seen. The area was sequentially dilated. After dilation to 14 [place] the rigid scope was replaced. The scope was then able to advance past the area of stricture up to the portion of the proximal ureter. The ureter proximal to the stricture was found to be distended/dilated possibly due to chronic obstruction at the UVJ/distal ureter. No masses tumors lesions or others concern. The wire was visualized and found to be in good position in the renal pelvis on the right. The scope was slowly removed. The area of dilation was inspected. No fissures tears or other major areas of concern. The stricture had been well dilated without major issue. The entire area was once again examined. No areas of concern were noted. The scope was slowly removed with the wire left in place. Contrast was placed through the scope for a pyelogram to assist in stent placement. The entire ureter was examined as the scope was slowly removed. No obstructions or other areas of concern were noted. With the wire in place, a 7 Fr Double J stent was placed. It was confirmed with fluoroscopy. With the stent in place, the bladder was emptied. The scope was removed. An 18 [place] catheter was then placed. This was set to drainage. The patient was cleaned, aroused from anesthesia, and transferred to the pacu in stable condition having tolerated the procedure well with no complications. I was present and participated in all aspects of the procedure. The patient will be monitored in the PACU until transferred. Will likely need to maintain stent for approximately 2 to 4 weeks with plans for removal of stent in office. Will maintain catheter and monitor during treatment of infection. Plan to transfer back to the floor for observation I attest to the content of the Intraoperative Record and any orders documented therein. Any exceptions are noted below.
--- NOTE | 2024-08-28 12:22 | Fluoroscopy Report ---
FL retrograde includes kub CLINICAL HISTORY: bilateral retrograde - right stent placement COMPARISON STUDY: CT 08/22/2024 FLUOROSCOPY TIME: 55.7 seconds FLUOROSCOPY IMAGES: 5 EXPOSURE DOSE: 6.94 mGy FINDINGS: Status post placement of a right ureteral stent which appears to be in satisfactory positio ying. Persistent hydronephrosis. IMPRESSION: Fluoroscopic assistance as above. ACT 112: Negative or not required by law. Electronically signed by: Huber Cano M.D. 08/28/2024 12:20 PM
--- NOTE | 2024-08-28 12:45 | Anesthesiology Progress Note ---
Date of Service August 28, 2024 Anesthesia Post Procedure Vital Signs Vital Signs: Temp Pulse Pulse Pulse Resp BP Pulse Ox 08/28/24 12:35 77 18 144/92 H 100 08/28/24 12:25 81 16 121/74 98 08/28/24 12:15 74 16 112/78 100 08/28/24 12:05 82 16 118/86 100 08/28/24 07:49 79 08/28/24 07:36 36.4 C L 79 19 169/92 H 94 08/28/24 02:59 36.6 C 86 18 158/45 H 100 08/28/24 00:00 79 08/27/24 23:10 36.6 C 85 18 149/50 H 100 08/27/24 20:00 08/27/24 19:58 36.6 C 87 18 145/90 H 100 08/27/24 16:31 36.4 C L 90 18 138/88 100 08/27/24 16:13 O2 Del Method O2 Flow Rate 08/28/24 12:35 Oxymask 4 08/28/24 12:25 Oxymask 4 08/28/24 12:15 Oxymask 8 08/28/24 12:05 Oxymask 8 08/28/24 07:49 08/28/24 07:36 Nasal Cannula 3 08/28/24 02:59 Nasal Cannula 08/28/24 00:00 08/27/24 23:10 Nasal Cannula 08/27/24 20:00 Nasal Cannula 3 08/27/24 19:58 Nasal Cannula 08/27/24 16:31 Nasal Cannula 08/27/24 16:13 Nasal Cannula 2.5 Pain Intensity Medial Abdomen: Pain Intensity: 0 Transfer of Care Handoff Completed per policy Notes Mental Status: alert / awake / arousable Patient Amnestic to Procedure: Yes Nausea / Vomiting: adequately controlled Pain: adequately controlled Airway Patency, RR, SpO2: stable & adequate BP & HR: stable & adequate Hydration State: stable & adequate Anesthetic Complications: no major complications apparent and Pt Satisfied with anesthetic care
--- NOTE | 2024-08-28 13:19 | Hospitalist Progress Note ---
Date of Service August 28, 2024 Assessment & Plan (1) Sepsis: (2) UTI (urinary tract infection): (3) Atrial fibrillation with RVR: (4) COPD with exacerbation: (5) Chronic hypoxic respiratory failure: (6) Hypokalemia: (7) HTN (hypertension): (8) Anemia: (9) CAD (coronary artery disease): Plan Ms. Johnston is 74 year old female with PMH COPD on chronic 3 L of oxygen, HTN, CAD (STEMI in 2022 s/p RCA intervention), paroxysmal atrial fibrillation, hypothyroidism us admitted for sepsis due to acute complicated cystitis, as well as a fib RVR. Recently admitted to [facility] 07/12 - 07/25 for COPD exacerbation, atrial fibrillation with RVR, Pseudomonas UTI. Patient was noted to have anemia and heme + stools. Endoscopy was attempted however patient could not tolerate the prep. Deferred for outpatient endoscopy. Also noted to have ongoing left elbow wound from surgery for left distal humerus fracture. Imaging was obtained showing intact hardware and no abscess. Patient evaluated by urology with plan for cystoscopy- no plans at this time Discussion of possible hospice with pt's family. 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 UA suggestive of UTI. CT abd/pelvis: Distended urinary bladder. Mild right hydronephrosis and hydrour eter without obstructing calculus. The mild hydronephrosis could be due to the urinary bladder distention or a stricture at the right UVJ. There is mild inflammation at the right kidney. Suggest clinical correlation for ascending UTI/early right pyelonephritis. Urology: supportive care, abx, no plans for cysto UA and urine cx with citrobacter and pseudomonas discontinue vanc Zosyn transitioned to po cipro Awaiting placement- PT/OT recommending rehab Hypophosphatemia replete as needed atrial fibrillation with RVR Likely multifactorial due to sepsis, hypokalemia, and missed medications S/p metoprolol 5 mg IV in the ED, with improvement in heart rate Continue metoprolol succinate 37.5 mg twice daily Continue Eliquis COPD with exacerbation Chronic hypoxic respiratory failure Per ED, patient had wheezing on presentation s/p neb, dexamethasone 10 mg IV with improvement Saturating well on chronic 3L of oxygen continue prednisone 40 mg daily, as needed nebs, Mucinex, incentive spirometer, flutter valve Flu, COVID, RSV negative No infiltrate noted on CXR Hypokalemia: replete as needed HTN (hypertension): Continue metoprolol, losartan Hold Lasix for now Chronic normocytic Anemia: 11 on admission down to 9, however, baseline looks to be 8-9 Trend cbc Chronic CAD s/p RCA stent in 02/2023. clarified medications with daughter, not on asa but takes plavix and eliquis Continue statin, beta-zaki DVT PROPHYLAXIS On Eliquis Admission and Anticipated Discharge Date Admission Date: August 22, 2024 Subjective Seen in the AM with IV Kcl running Noted it joyce Otherwise denied acute concerns Reports of bed bugs once more Review of Systems Review of Systems: All systems reviewed & are unremarkable except as noted in Subjective Physical Exam Physical Exam: General: Alert, oriented. No acute distress HEENT: NC/AT CV: RRR Resp: Breath sounds decreased bilaterally, no increased effort of breathing Abdomen: Soft, nontender Extremities: No edema in lower extremities bilaterally. Results & Data Results & Data Vital Signs (Past 12 Hours) Vital Signs Temp Pulse Pulse Pulse Resp BP Pulse Ox 08/28/24 13:18 36.5 C 81 14 157/107 H 100 08/28/24 13:02 72 18 150/96 H 100 08/28/24 12:55 81 18 155/100 H 100 08/28/24 12:45 36.5 C 74 16 148/100 H 100 08/28/24 12:35 77 18 144/92 H 100 08/28/24 12:25 81 16 121/74 98 08/28/24 12:15 74 16 112/78 100 08/28/24 12:05 82 16 118/86 100 08/28/24 07:49 79 08/28/24 07:36 36.4 C L 79 19 169/92 H 94 08/28/24 02:59 36.6 C 86 18 158/45 H 100 O2 Del Method O2 Flow Rate 08/28/24 13:18 Nasal Cannula 3 08/28/24 13:02 Oxymask 4 08/28/24 12:55 Oxymask 4 08/28/24 12:45 Oxymask 4 08/28/24 12:35 Oxymask 4 08/28/24 12:25 Oxymask 4 08/28/24 12:15 Oxymask 8 08/28/24 12:05 Oxymask 8 08/28/24 07:49 08/28/24 07:36 Nasal Cannula 3 08/28/24 02:59 Nasal Cannula (1) Sepsis Acute respiratory failure type: with hypoxia Sepsis acute organ dysfunction status: with acute organ dysfunction Sepsis type: sepsis due to unspecified organism Severe sepsis acute organ dysfunction type: acute respiratory failure Severe sepsis shock status: without septic shock Qualified Code(s): A41.9 - Sepsis, unspecified organism; R65.20 - Severe sepsis without septic shock; J96.01 - Acute respiratory failure with hypoxia (2) UTI (urinary tract infection) Hematuria presence: without hematuria Urinary tract infection type: acute cystitis Qualified Code(s): N30.00 - Acute cystitis without hematuria (7) HTN (hypertension) Hypertension type: primary hypertension Qualified Code(s): I10 - Essential (primary) hypertension
[2024-08-29 06:51] LABS: Basophils # (auto) 0.03 K/uL (0.00-0.20); Basophils % (auto) 0.2 %; Eosinophils # (auto) 0.18 K/uL (0.00-0.50); Eosinophils % (auto) 1.5 %; Hematocrit (blood only) 34.9 % (37.0-47.0); Immature Granulocytes # (auto) 0.48 K/uL (0.01-0.20); Lymphocytes # (auto) 2.44 K/uL (1.20-3.40); Lymphocytes % (auto) 20.2 %; Mean Corpuscular Hemoglobin 27.6 pg (25.0-34.0); Mean Corpuscular Hgb Conc 31.5 g/dL (32.0-36.0); Mean Corpuscular Volume 87.7 fL (80.0-100.0); Mean Platelet Volume 8.8 fL (9.4-12.4); Monocytes # (auto) 0.68 K/uL (0.11-0.59); Monocytes % (auto) 5.6 %; Neutrophils # (auto) 8.28 K/uL (1.40-6.50); Neutrophils % (auto) 68.5 %; Nucleated RBC # (auto) 0.04 K/uL (0.00-0.12); Nucleated RBC % (auto) 0.3 %; Platelet Count 576 K/uL (130-400); RDW Coefficient of Variation 17.5 % (11.5-14.5); RDW Standard Deviation 54.3 fL (36.4-46.3); Red Blood Count 3.98 M/uL (4.20-5.40); White Blood Count 12.09 K/ul (4.8-10.8)
[2024-08-29 07:21] LABS: BUN Creatinine Ratio 15.9 (10-20); Calcium 8.6 mg/dl (8.6-10.3); Creatinine Clr Calc Pharmacy 54.6 ml/min; Magnesium 1.7 mg/dl (1.7-2.4); Phosphorus 4.7 mg/dl (2.5-4.9); Potassium 3.2 mmol/L (3.5-5.1)
[2024-08-29] MEDS: POTASSIUM CHLORIDE / WTR 10 MEQ/100 ML PLCT IV SCH (10:10)
--- NOTE | 2024-08-29 10:16 | Urology Progress Note ---
Date of Service August 29, 2024 Assessment & Plan (1) Hydronephrosis: Plan: Patient POD #1 status post cystoscopy with bilateral retrograde pyelogram, right ureteroscopy with ureteral dilation and stent placement Patient afebrile, hemodynamically stable Labs reviewedcreatinine 0.63, WBC 12.09, hemoglobin 11.0 Tolerating stent without bother Maintain Helms catheter at this time Continue course of antibiotics for complicated UTI Will plan for outpatient follow-up to remove ureteral stent in 2 to 4 weeks will sign off, please contact our service with any questions/concerns Admission and Anticipated Discharge Date Admission Date: August 22, 2024 Subjective Patient seen and examined at bedside this morning. She is resting in bed, a rouses easily to her name. Denies flank discomfort. Helms intact. Denies nausea, vomiting, fever or chills. Review of Systems Constitutional: as per Subjective / HPI Genitourinary: as per Subjective / HPI Physical Exam Constitutional: no acute distress Respiratory: normal respiratory effort; no respiratory distress and no labored breathing Musculoskeletal: Head/Neck/Chest: normocephalic Neurologic: moves all extremities Psychiatric: Orientation: alert and oriented x 3 Results & Data Vital Signs (Past 12 Hours) Vital Signs Temp Pulse Pulse Resp BP Pulse Ox O2 Del Method 08/29/24 07:08 36.6 C 79 16 158/95 H 100 Nasal Cannula 08/29/24 03:56 36.4 C L 72 16 129/84 100 Nasal Cannula 08/29/24 00:00 72 08/28/24 22:45 36.5 C 68 16 151/94 H 92 Nasal Cannula O2 Flow Rate 08/29/24 07:08 3 08/29/24 03:56 3 08/29/24 00:00 08/28/24 22:45 3 PG Care Time/CCT Total # of Minutes Spent Total Time Spent with Patient: Total time spent is greater than 50% in coordination of care (as documented) at patient's floor/unit and/or counseling patient: Coding Level of Care Code 14181 SUB INP/OBS CARE 2/35MIN Diagnoses Hydronephrosis N13.30
--- NOTE | 2024-08-29 13:48 | Hospitalist Progress Note ---
Date of Service August 29, 2024 Assessment & Plan (1) Sepsis: (2) UTI (urinary tract infection): (3) Atrial fibrillation with RVR: (4) Chronic hypoxic respiratory failure: (5) Hypokalemia: (6) HTN (hypertension): (7) Anemia: (8) CAD (coronary artery disease): Plan Ms. Johnston is 74 year old female with PMH COPD on chronic 3 L of oxygen, HTN, CAD (STEMI in 2022 s/p RCA intervention), paroxysmal atrial fibrillation, hypothyroidism us admitted for sepsis due to acute complicated cystitis, as well as a fib RVR. Recently admitted to [facility] 07/12 - 07/25 for COPD exacerbation, atrial fibrillation with RVR, Pseudomonas UTI. Patient was noted to have anemia and heme + stools. E ndoscopy was attempted however patient could not tolerate the prep. Deferred for outpatient endoscopy. Also noted to have ongoing left elbow wound from surgery for left distal humerus fracture. Imaging was obtained showing intact hardware and no abscess. Patient evaluated by urology with plan for cystoscopy- no plans at this time Discussion of possible hospice with pt's family. 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 UA suggestive of UTI. CT abd/pelvis: Distended urinary bladder. Mild right hydronephrosis and hydroureter without obstructing calculus. The mild hydronephrosis could be due to the urinary bladder distention or a stricture at the right UVJ. There is mild inflammation at the right kidney. Suggest clinical correlation for ascending UTI/early right pyelonephritis. Urology: supportive care, abx, no plans for cysto UA and urine cx with citrobacter and pseudomonas discontinue vanc Zosyn transitioned to po cipro On 08/28/24, s/p Cystoscopy with Bilateral retrograde pyelogram, right Ureteroscopy with ureteral dilation and stent placement with urology Awaiting placement- PT/OT recommending rehab. [facility] noting no beds at this time and would like bed bug situation at home under control before taking pt Hypophosphatemia replete as needed atrial fibrillation with RVR Likely multifactorial due to sepsis, hypokalemia, and missed medications S/p metoprolol 5 mg IV in the ED, with improvement in heart rate Continue metoprolol succinate 37.5 mg twice daily Continue Eliquis COPD with exacerbation Chronic hypoxic respiratory failure Per ED, patient had wheezing on presentation s/p neb, dexamethasone 10 mg IV with improvement Saturating well on chronic 3L of oxygen continue prednisone 40 mg daily, as needed nebs, Mucinex, incentive spirometer, flutter valve Flu, COVID, RSV negative No infiltrate noted on CXR Hypokalemia: replete as needed HTN (hypertension): Continue metoprolol, losartan Hold Lasix for now Chronic normocytic Anemia: 11 on admission down to 9, however, baseline looks to be 8-9 Trend cbc Chronic CAD s/p RCA stent in 02/2023. clarified medications with daughter, not on asa but takes plavix and eliquis Continue statin, beta-zaki DVT PROPHYLAXIS On Eliquis Admission and Anticipated Discharge Date Admission Date: August 22, 2024 Subjective Pt was seen laying bed, resting comfortably Taken back by urology to the OR yesterday She denied current concerns Per case management it will be some time before placement due to the bed bug infestation at [facility] Review of Systems Review of Systems: All systems reviewed & are unremarkable except as noted in Subjective Physical Exam Physical Exam: General: Alert, oriented. No acute distress HEENT: NC/AT CV: RRR Resp: Breath sounds decreased bilaterally, no increased effort of breathing Abdomen: Soft, nontender Extremities: No edema in lower extremities bilaterally. Results & Data Results & Data Vital Signs (Past 12 Hours) Vital Signs Temp Pulse Pulse Resp BP Pulse Ox O2 Del Method 08/29/24 10:58 36.2 C L 69 18 142/84 H 97 Nasal Cannula 08/29/24 08:00 85 08/29/24 07:08 36.6 C 79 16 158/95 H 100 Nasal Cannula 08/29/24 03:56 36.4 C L 72 16 129/84 100 Nasal Cannula O2 Flow Rate 08/29/24 10:58 1 08/29/24 08:00 08/29/24 07:08 3 08/29/24 03:56 3 (1) Sepsis Acute respiratory failure type: with hypoxia Sepsis acute organ dysfunction status: with acute organ dysfunction Sepsis type: sepsis due to unspecified organism Severe sepsis acute organ dysfunction type: acute respiratory failure Severe sepsis shock status: without septic shock Qualified Code(s): A41.9 - Sepsis, unspecified organism; R65.20 - Severe sepsis without septic shock; J96.01 - Acute respiratory failure with hypoxia (2) UTI (urinary tract infection) Hematuria presence: without hematuria Urinary tract infection type: acute cystitis Qualified Code(s): N30.00 - Acute cystitis without hematuria (6) HTN (hypertension) Hypertension type: primary hypertension Qualified Code(s): I10 - Essential (primary) hypertension
[2024-08-30 07:58] LABS: Basophils # (auto) 0.01 K/uL (0.00-0.20); Basophils % (auto) 0.1 %; Eosinophils # (auto) 0.01 K/uL (0.00-0.50); Eosinophils % (auto) 0.1 %; Hematocrit (blood only) 29.5 % (37.0-47.0); Hemoglobin 9.2 g/dl (12.0-16.0); Immature Granulocytes # (auto) 0.22 K/uL (0.01-0.20); Immature Granulocytes % (auto) 1.7 %; Lymphocytes # (auto) 1.34 K/uL (1.20-3.40); Lymphocytes % (auto) 10.3 %; Mean Corpuscular Hemoglobin 27.4 pg (25.0-34.0); Mean Corpuscular Hgb Conc 31.2 g/dL (32.0-36.0); Mean Corpuscular Volume 87.8 fL (80.0-100.0); Mean Platelet Volume 8.7 fL (9.4-12.4); Monocytes # (auto) 0.71 K/uL (0.11-0.59); Monocytes % (auto) 5.5 %; Neutrophils # (auto) 10.69 K/uL (1.40-6.50); Neutrophils % (auto) 82.3 %; Platelet Count 523 K/uL (130-400); RDW Coefficient of Variation 17.7 % (11.5-14.5); RDW Standard Deviation 55.8 fL (36.4-46.3); Red Blood Count 3.36 M/uL (4.20-5.40); White Blood Count 12.98 K/ul (4.8-10.8)
[2024-08-30 08:30] LABS: BUN Creatinine Ratio 15.9 (10-20); Calcium 8.5 mg/dl (8.6-10.3); Creatinine Clr Calc Pharmacy 43.2 ml/min; Magnesium 1.6 mg/dl (1.7-2.4); Phosphorus 6.2 mg/dl (2.5-4.9)
[2024-08-30 12:36] LABS: C. diff 027-NAP1-BI NEGATIVE; Cdiff Toxin B Gene (2yr or >) Negative Cdiff Gene (Neg)
--- NOTE | 2024-08-30 16:21 | Hospitalist Progress Note ---
Date of Service August 30, 2024 Assessment & Plan (1) Sepsis: (2) UTI (urinary tract infection): (3) Atrial fibrillation with RVR: (4) Chronic hypoxic respiratory failure: (5) Hypokalemia: (6) HTN (hypertension): (7) Anemia: (8) CAD (coronary artery disease): Plan Ms. Johnston is 74 year old female with PMH COPD on chronic 3 L of oxygen, HTN, CAD (STEMI in 2022 s/p RCA intervention), paroxysmal atrial fibrillation, hypothyroidism us admitted for sepsis due to acute complicated cystitis, as well as a fib RVR. Recently admitted to [facility] 07/12 - 07/25 for COPD exacerbation, atrial fibrillation with RVR, Pseudomonas UTI. Patient was noted to have anemia and heme + stools. E ndoscopy was attempted however patient could not tolerate the prep. Deferred for outpatient endoscopy. Also noted to have ongoing left elbow wound from surgery for left distal humerus fracture. Imaging was obtained showing intact hardware and no abscess. Patient evaluated by urology with plan for cystoscopy- no plans at this time Discussion of possible hospice with pt's family. 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 UA suggestive of UTI. CT abd/pelvis: Distended urinary bladder. Mild right hydronephrosis and hydroureter without obstructing calculus. The mild hydronephrosis could be due to the urinary bladder distention or a stricture at the right UVJ. There is mild inflammation at the right kidney. Suggest clinical correlation for ascending UTI/early right pyelonephritis. Urology: supportive care, abx, no plans for cysto UA and urine cx with citrobacter and pseudomonas discontinue vanc Zosyn transitioned to po cipro On 08/28/24, s/p Cystoscopy with Bilateral retrograde pyelogram, right Ureteroscopy with ureteral dilation and stent placement with urology Awaiting placement- PT/OT recommending rehab. [facility] noting no beds at this time and would like bed bug situation at home under control before taking pt Hypophosphatemia replete as needed atrial fibrillation with RVR Likely multifactorial due to sepsis, hypokalemia, and missed medications S/p metoprolol 5 mg IV in the ED, with improvement in heart rate Continue metoprolol succinate 37.5 mg twice daily Continue Eliquis COPD with exacerbation Chronic hypoxic respiratory failure Per ED, patient had wheezing on presentation s/p neb, dexamethasone 10 mg IV with improvement Saturating well on chronic 3L of oxygen continue prednisone 40 mg daily, as needed nebs, Mucinex, incentive spirometer, flutter valve Flu, COVID, RSV negative No infiltrate noted on CXR Hypokalemia: replete as needed HTN (hypertension): Continue metoprolol, losartan Hold Lasix for now Chronic normocytic Anemia: 11 on admission down to 9, however, baseline looks to be 8-9 Trend cbc Chronic CAD s/p RCA stent in 02/2023. clarified medications with daughter, not on asa but takes plavix and eliquis Continue statin, beta-zaki DVT PROPHYLAXIS On Eliquis Admission and Anticipated Discharge Date Admission Date: August 22, 2024 Subjective Pt was seen in the AM Resting comfortably in bed Denied acute concerns Review of Systems Review of Systems: All systems reviewed & are unremarkable except as noted in Subjective Physical Exam Physical Exam: General: Alert, oriented. No acute distress HEENT: NC/AT CV: RRR Resp: Breath sounds decreased bilaterally, no increased effort of breathing Abdomen: Soft, nontender Extremities: No edema in lower extremities bilaterally. Results & Data Results & Data Vital Signs (Past 12 Hours) Vital Signs Temp Pulse Resp BP Pulse Ox O2 Del Method O2 Del Method 08/30/24 15:03 36.6 C 61 16 136/78 96 Nasal Cannula 08/30/24 15:00 Nasal Cannula 08/30/24 08:00 Nasal Cannula 08/30/24 07:10 37.0 C 59 L 16 156/90 H 98 Nasal Cannula O2 Flow Rate 08/30/24 15:03 1 08/30/24 15:00 08/30/24 08:00 2 08/30/24 07:10 1 (1) Sepsis Acute respiratory failure type: with hypoxia Sepsis acute organ dysfunction status: with acute organ dysfunction Sepsis type: sepsis due to unspecified organism Severe sepsis acute organ dysfunction type: acute respiratory failure Severe sepsis shock status: without septic shock Qualified Code(s): A41.9 - Sepsis, unspecified organism; R65.20 - Severe sepsis without septic shock; J96.01 - Acute respiratory failure with hypoxia (2) UTI (urinary tract infection) Hematuria presence: without hematuria Urinary tract infection type: acute cystitis Qualified Code(s): N30.00 - Acute cystitis without hematuria (6) HTN (hypertension) Hypertension type: primary hypertension Qualified Code(s): I10 - Essential (primary) hypertension
[2024-08-31 07:11] LABS: Basophils # (auto) 0.01 K/uL (0.00-0.20); Basophils % (auto) 0.1 %; Eosinophils # (auto) 0.03 K/uL (0.00-0.50); Eosinophils % (auto) 0.2 %; Hematocrit (blood only) 26.9 % (37.0-47.0); Hemoglobin 8.4 g/dl (12.0-16.0); Immature Granulocytes # (auto) 0.19 K/uL (0.01-0.20); Immature Granulocytes % (auto) 1.5 %; Lymphocytes # (auto) 1.56 K/uL (1.20-3.40); Lymphocytes % (auto) 12.4 %; Mean Corpuscular Hemoglobin 27.5 pg (25.0-34.0); Mean Corpuscular Hgb Conc 31.2 g/dL (32.0-36.0); Mean Corpuscular Volume 88.2 fL (80.0-100.0); Mean Platelet Volume 8.6 fL (9.4-12.4); Monocytes % (auto) 6.3 %; Neutrophils # (auto) 10.02 K/uL (1.40-6.50); Neutrophils % (auto) 79.5 %; Platelet Count 430 K/uL (130-400); RDW Coefficient of Variation 18.1 % (11.5-14.5); RDW Standard Deviation 57.3 fL (36.4-46.3); Red Blood Count 3.05 M/uL (4.20-5.40); White Blood Count 12.61 K/ul (4.8-10.8)
[2024-08-31 07:41] LABS: Albumin Level 2.6 gm/dl (3.4-5.0); Bilirubin,Total 0.2 mg/dl (0.2-1.0); Calcium 8.3 mg/dl (8.6-10.3); Magnesium 1.5 mg/dl (1.7-2.4); Potassium 3.9 mmol/L (3.5-5.1)
[2024-08-31 07:52] LABS: Albumin Globulin Ratio 1.1 (0.9-2); BUN Creatinine Ratio 16.9 (10-20); Creatinine Clr Calc Pharmacy 39.2 ml/min; Globulin 2.4 gm/dl (2.5-4.0); Phosphorus 4.3 mg/dl (2.5-4.9)
[2024-08-31] MEDS: POTASSIUM CHLORIDE CRTAB 20 MEQ TABCR PO SCH (08:24)
--- NOTE | 2024-08-31 08:44 | Hospitalist Progress Note ---
Date of Service August 31, 2024 Assessment & Plan (1) Sepsis: (2) UTI (urinary tract infection): (3) Atrial fibrillation with RVR: (4) Chronic hypoxic respiratory failure: (5) CAD (coronary artery disease): (6) HTN (hypertension): (7) Hypokalemia: (8) Hypothyroidism: (9) Anemia: Plan 74 year old female with PMH significant for COPD on chronic 3L of oxygen, HTN, CAD (STEMI in 2022 s/p RCA intervention), paroxysmal atrial fibrillation, and hypothyroidism who presented to the ED on 08/22/2024 with SOB and weakness and is admitted for sepsis due to acute complicated cystitis, as well as a fib RVR. 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 Mild right hydronephrosis and hydroureter without obstructing calculus. The mild hydronephrosis could be due to the urinary bladder distention or a stricture at the right UVJ. There is mild inflammation at the right kidney. Suggest clinical correlation for ascending UTI/early right pyelonephritis. Urine culture positive for Citrobacter freundii complex and pseudomonas Blood cultures negative Initially was on vanco and zosyn transitioned to PO cipro on 08/25/2024 (end date 09/04/2024) Due to persistent leukocytosis, underwent cystoscopy on 08/28 with bilateral retrograde pyelogram, right ureteroscopy with ureteral dilation and stent placement by Dr Newberry Urology recommendations: -Maintain Lord catheter at this time -Continue course of antibiotics for complicated UTI -Will plan for outpatient follow-up to remove ureteral stent in 2 to 4 weeks Atrial fibrillation with RVR Likely multifactorial due to sepsis, hypokalemia, and missed medications s/p metoprolol 5 mg IV in the ED with improvement in heart rate Continue metoprolol succinate 37.5 mg twice daily and Eliquis COPD with exacerbation Chronic hypoxic respiratory failure On admission patient had wheezing s/p neb, dexamethasone 10 mg IV with improvement Flu, COVID, RSV negative No infiltrate noted on CXR Saturating well on 1-2L NC Patient received x9 days of prednisone 40mg - discontinued today as patient has no respiratory symptoms or wheezing Continue inhalers Duonebs, mucinex PRN Chronic CAD s/p RCA stent in 02/2023 Continue Plavix and Eliquis per home dosing Continue atorvastatin and metoprolol per home dosing HTN Continue metoprolol and losartan per home dosing Plan to resume lasix on 09/01 Hypothyroidism Continue levothyroxine per home dosing Hypokalemia/hypophosphatemia Monitor and replete as needed Continue potassium and mag supplements per home dosing Chronic normocytic anemia Stable Baseline hemoglobin around 8-9 Monitor CBC Depression Continue citalopram per home dosing DVT Prophylaxis: on Eliquis Code Status: FULL CODE PCP: Ronald Cortes Disposition: dc to [facility] 09/01 Patient seen in collaboration with Dr French. Please see addendum. I spent a total of 60 minutes coordinating, documenting and providing care for this patient excluding time spent in the performance of separately billed services or time spent by another provider/QHP. Admission and Anticipated Discharge Date Admission Date: August 22, 2024 Supervising Physician Co-Signing Physician Notes I have reviewed the advanced practitioner's documentation, and I agree with, and take responsibility for the plan of care I spent a total of 30 minutes coordinating, documenting, and providing care for this patient excluding time spent in the performance of separately billed services. All of the aforementioned completed while collaborating with the assigned advanced practitioner for a full treatment plan Subjective Patient seen sitting up in bed No acute concerns Denies headache, chest pain, SOB, abdominal pain, N/V/D, weakness Review of Systems Review of Systems: All systems reviewed & are unremarkable except as noted in Subjective Physical Exam Physical Exam: General/Psych: WD/WN, sitting up in bed, NAD, conversing easily Head: normocephalic, atraumatic Eyes: normal inspection, PERRL, conjunctivae pink ENT: external ear and nose normal, oropharynx normal Neck: normal visual inspection, trachea midline Respiratory: normal respiratory effort, lungs clear to auscultation, no wheeze/rales/rhonchi, no accessory muscle use Cardiovascular: regular rate and rhythm, no murmur/rub/gallop, no JVD Extremities: no cyanosis or clubbing, normal peripheral pulses, no BLE edema Abdomen/GI: normal bowel sounds, soft, nontender : lord in place with blood tinged urine Neurologic/MSK: A+Ox3, motor strength 5/5, moves all extremities Skin: no rashes, normal color, warm and dry Results & Data Results & Data Vital Signs (Past 12 Hours) Vital Signs Temp Pulse Resp BP Pulse Ox O2 Del Method O2 Flow Rate 08/31/24 08:11 36.5 C 54 L 16 142/81 H 100 Nasal Cannula 1 08/31/24 07:44 Nasal Cannula 1 Laboratory Results Short CBC 08/31/24 Range/Units 06:33 WBC 12.61 H (4.8-10.8) K/ul Hgb 8.4 L (12.0-16.0) g/dl Hct 26.9 L (37.0-47.0) % Plt Count 430 H (130-400) K/uL BMP 08/30/24 08/31/24 07:14 06:33 Sodium 132 L Potassium 4.0 D 3.9 Chloride 89 L Carbon Dioxide 38 H BUN 15 Creatinine 0.89 Glucose 95 Calcium 8.3 L Liver Function 08/31/24 Range/Units 06:33 Total Bilirubin 0.2 (0.2-1.0) mg/dl AST 11 L (13-39) U/L ALT 10 (7-52) U/L Alkaline Phosphatase 65 (34-104) U/L Albumin 2.6 L (3.4-5.0) gm/dl I have independently reviewed and interpreted patient's labs including CBC, CMP, mag, phos. Medications Administered Current Inpatient Medications Acetaminophen (Acetaminophen 325 Mg Tab) 650 mg PO Q4H PRN PRN Reason: Pain or Fever Stop: 09/21/24 15:49 Last Admin: 08/30/24 09:06 Dose: 650 mg Albuterol (Albut/Ipratrop 3mg/0.5mg Neb 3 Ml Vial) 3 ml NEB Q6H PRN; Protocol PRN Reason: shortness of breath Stop: 09/21/24 15:49 Apixaban (Apixaban 5 Mg Tablet) 5 mg PO BID [facility] Stop: 09/21/24 20:59 Last Admin: 08/31/24 08:21 Dose: 5 mg Atorvastatin Calcium (Atorvastatin 40 Mg Tab) 40 mg PO QAM [facility] Stop: 09/22/24 08:59 Last Admin: 08/31/24 08:21 Dose: 40 mg Ciprofloxacin (Ciprofloxacin 500 Mg Tab) 500 mg PO BID [facility]; Protocol Stop: 09/04/24 20:59 Last Admin: 08/31/24 08:21 Dose: 500 mg Citalopram Hydrobromide (Citalopram 40 Mg Tab) 40 mg PO QAM [facility] Stop: 09/22/24 08:59 Last Admin: 08/31/24 08:20 Dose: 40 mg Clopidogrel Bisulfate (Clopidogrel Bisulfate 75 Mg Tab) 75 mg PO QAM [facility] Stop: 09/23/24 08:59 Last Admin: 08/31/24 08:21 Dose: 75 mg Fluticasone Furoate (Fluticasone Furoate 100mcg 14 Puffs/Inhaler) 1 puffs INH DAILY [facility] Stop: 09/22/24 08:59 Last Admin: 08/31/24 08:22 Dose: 1 puffs Gabapentin (Gabapentin 300 Mg Cap) 300 mg PO BID [facility] Stop: 09/21/24 20:59 Last Admin: 08/31/24 08:22 Dose: 300 mg Guaifenesin (Guaifenesin 600 Mg Tabcr) 1,200 mg PO Q12 [facility] Stop: 09/21/24 20:59 Last Admin: 08/31/24 08:20 Dose: 1,200 mg Hydromorphone HCl (Hydromorphone Inj 0.5 Mg/0.5 Ml Syr) 0.25 mg IV Q4H PRN PRN Reason: Mod-Sev Pain (Scale 4-10) Stop: 09/05/24 20:45 Last Admin: 08/30/24 20:51 Dose: 0.25 mg Magnesium Sulfate/Dextrose (Magnesium Sulfate / D5w) 1 gm in 100 mls @ 50 mls/hr IV Q2H [facility] Stop: 08/31/24 12:44 Levothyroxine Sodium (Levothyroxine Sodium 25 Mcg Tablet) 25 mcg PO DAILYBB [facility] Stop: 09/22/24 06:29 Last Admin: 08/31/24 05:33 Dose: 25 mcg Losartan Potassium (Losartan Potassium 25 Mg Tab) 25 mg PO QAM [facility] Stop: 09/22/24 08:59 Last Admin: 08/31/24 08:22 Dose: 25 mg Magnesium Oxide (Magnesium Oxide 400 Mg Tab) 400 mg PO BID [facility] Stop: 09/21/24 20:59 Last Admin: 08/31/24 08:22 Dose: 400 mg Metoprolol Succinate (Metoprolol Succ 50mg Ext Rel Tab) 50 mg PO BID [facility] Stop: 09/25/24 08:59 Last Admin: 08/31/24 08:22 Dose: 50 mg Ondansetron HCl (Ondansetron Inj 2 Mg/Ml 2 Ml Vial) 4 mg IV Q6H PRN PRN Reason: Nausea And Vomiting Stop: 09/24/24 08:19 Last Admin: 08/29/24 22:24 Dose: 4 mg Oxybutynin Chloride (Oxybutynin Chloride Xl 5 Mg Tabcr) 5 mg PO QAM [facility] Stop: 09/22/24 08:59 Last Admin: 08/31/24 08:22 Dose: 5 mg Pantoprazole Sodium (Pantoprazole 40 Mg Tab) 40 mg PO QAM [facility] Stop: 09/22/24 08:59 Last Admin: 08/31/24 08:23 Dose: 40 mg Polymyxin/Trimethoprim Sulfate (Trimethoprim/Polymyxin B) 1 drops OPB QID [facility] Stop: 09/23/24 20:59 Last Admin: 08/31/24 08:24 Dose: 1 drops Potassium Chloride (Potassium Chloride Crtab 20 Meq Tabcr) 20 meq PO DAILY [facility] Stop: 09/30/24 08:59 Last Admin: 08/31/24 08:24 Dose: 20 meq Umeclidinium/Vilanterol (Umeclidinium/Vilanterol 62.5/25mcg 7 Puffs/Inhaler) 1 puffs INH DAILY [facility] Stop: 09/22/24 08:59 Last Admin: 08/31/24 08:25 Dose: 1 puffs (1) Sepsis Acute respiratory failure type: with hypoxia Sepsis acute organ dysfunction status: with acute organ dysfunction Sepsis type: sepsis due to unspecified organism Severe sepsis acute organ dysfunction type: acute respiratory failure Severe sepsis shock status: without septic shock Qualified Code(s): A41.9 - Sepsis, unspecified organism; R65.20 - Severe sepsis without septic shock; J96.01 - Acute respiratory failure with hypoxia (2) UTI (urinary tract infection) Hematuria presence: without hematuria Urinary tract infection type: acute cystitis Qualified Code(s): N30.00 - Acute cystitis without hematuria (6) HTN (hypertension) Hypertension type: primary hypertension Qualified Code(s): I10 - Essential (primary) hypertension
[2024-08-31] MEDS: MAGNESIUM SULFATE / D5W 1 GM/100 ML BAG IV SCH (09:07)
[2024-08-31] MEDS ORDERED: guaiFENesin 600 MG TABCR PO PRN (14:43)
[2024-09-01 07:05] VITALS: BP 174/91; PULSE 55; RESP 16; TEMP 97.3; O2SAT 100
[2024-09-01 07:15] LABS: Basophils # (auto) 0.02 K/uL (0.00-0.20); Basophils % (auto) 0.1 %; Eosinophils # (auto) 0.01 K/uL (0.00-0.50); Eosinophils % (auto) 0.1 %; Hematocrit (blood only) 27.4 % (37.0-47.0); Hemoglobin 8.8 g/dl (12.0-16.0); Immature Granulocytes # (auto) 0.23 K/uL (0.01-0.20); Immature Granulocytes % (auto) 1.6 %; Lymphocytes # (auto) 1.47 K/uL (1.20-3.40); Lymphocytes % (auto) 10.5 %; Mean Corpuscular Hemoglobin 28.2 pg (25.0-34.0); Mean Corpuscular Hgb Conc 32.1 g/dL (32.0-36.0); Mean Corpuscular Volume 87.8 fL (80.0-100.0); Mean Platelet Volume 8.6 fL (9.4-12.4); Monocytes # (auto) 0.94 K/uL (0.11-0.59); Monocytes % (auto) 6.7 %; Neutrophils # (auto) 11.27 K/uL (1.40-6.50); Platelet Count 413 K/uL (130-400); RDW Coefficient of Variation 17.9 % (11.5-14.5); RDW Standard Deviation 56.7 fL (36.4-46.3); Red Blood Count 3.12 M/uL (4.20-5.40); White Blood Count 13.94 K/ul (4.8-10.8)
[2024-09-01 07:44] LABS: BUN Creatinine Ratio 25.3 (10-20); Calcium 8.3 mg/dl (8.6-10.3); Creatinine Clr Calc Pharmacy 42.1 ml/min; Potassium 4.7 mmol/L (3.5-5.1)
[2024-09-01] MEDS: FUROSEMIDE 20 MG TAB PO SCH (09:03)
[2024-09-01] MEDS ORDERED: PHENAZOPYRIDINE HCL 200 MG TAB PO PRN (10:08)
--- NOTE | 2024-09-01 13:44 | Discharge Summary ---
Discharge Summary Date of Service September 01, 2024 Principal Dx & Hospital Course #1 = Principal Diagnosis (1) Sepsis: (2) UTI (urinary tract infection): (3) Atrial fibrillation with RVR: (4) Chronic hypoxic respiratory failure: (5) CAD (coronary artery disease): (6) HTN (hypertension): (7) Hypokalemia: (8) Hypothyroidism: (9) Anemia: Plan 74 year old female with PMH significant for COPD on chronic 3L of oxygen, HTN, CAD (STEMI in 2022 s/p RCA intervention), paroxysmal atrial fibrillation, and hypothyroidism who presented to the ED on 08/22/2024 with SOB and weakness and was admitted for sepsis due to acute complicated cystitis, as well as a fib RVR. 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 Mild right hydronephrosis and hydroureter without obstructing calculus. The mild hydronephrosis could be due to the urinary bladder distention or a stricture at the right UVJ. There is mild inflammation at the right kidney. Suggest clinical correlation for ascending UTI/early right pyelonephritis. Lord catheter placed on 08/22/2024 Urine culture positive for Citrobacter freundii complex and pseudomonas Blood cultures negative Initially was on vanco and zosyn transitioned to PO ciprofloxacin on 08/25/2024 (end date 09/04/2024) Due to persistent leukocytosis, underwent cystoscopy on 08/28 with bilateral retrograde pyelogram, right ureteroscopy with ureteral dilation and stent p lacement by Dr Newberry Urology recommendations: -Maintain Lord catheter at this time - should be changed every 4 weeks (last placed on 08/22/2024) -Continue course of ciprofloxacin for complicated UTI -Will plan for outpatient follow-up to remove ureteral stent in 2 to 4 weeks Atrial fibrillation with RVR Likely multifactorial due to sepsis, hypokalemia, and missed medications Received metoprolol 5 mg IV in the ED with improvement in heart rate Metoprolol succinate dose increased from 37.5mg bid to 50mg bid Continue Eliquis per home dosing COPD with exacerbation Chronic hypoxic respiratory failure On admission patient had wheezing s/p neb, dexamethasone 10 mg IV with improvement Flu, COVID, RSV negative No infiltrate noted on CXR Saturating well on baseline 1-2L NC Patient received x9 days of prednisone 40mg - discontinued on 08/31/2024 Continue inhalers per home dosing Chronic CAD s/p RCA stent in 02/2023 Continue Plavix and atorvastatin per home dosing HTN Intermittent hypertension while hospitalized likely due to pain Continue furosemide and losartan per home dosing Hypothyroidism Continue levothyroxine per home dosing Hypokalemia/hypophosphatemia Received repletions in the hospital as indicated Continue potassium and mag supplements per home dosing Chronic normocytic anemia Stable at baseline hemoglobin around 8-9 Depression Continue citalopram per home dosing Patient seen in collaboration with Dr French. Please see addendum. Notes For Next Care Provider 74 year old female with significant PMH who presented to the ED on 08/22/2024 with SOB and weakness and was admitted for sepsis secondary to acute complicated cystitis and pyelonephritis. A lord catheter was placed and patient underwent cystoscopy on 08/28 with bilateral retrograde pyelogram, right ureteroscopy with ureteral dilation and stent placement. Urology recommended maintaining lord catheter (recommend replacing catheter every 4 weeks), completing course of oral antibiotics as described below, and follow up with them in 2-4 weeks for stent removal. Initially had A fib with RVR and received IV metoprolol. Her oral dose of metoprolol was increased this admission and her heart rates have been controlled. Patient was evaluated by PT and OT in the hospital who recommended rehab at time of discharge and patient was discharged to [facility]. Medication Changes From Visit -Ciprofloxacin 500mg PO bid until 09/04/2024 -Metoprolol 50mg PO bid Admission HPI Per Admitting Provider 74 year old female with PMH COPD on chronic 3 L of oxygen, HTN, CAD (STEMI in 2022 s/p RCA intervention), paroxysmal atrial fibrillation, hypothyroidism, and other problems listed below who presents for evaluation of shortness of breath. Patient is somewhat of a poor historian. Reports that she has had worsening shortness of breath over the past few days. Upon further questioning, also reports some abdominal pain, nausea, urinary frequency. Denies fevers and chills. No vomiting. Denies chest pain, lightheadedness, dizziness, diaphoresis, syncopal event. According to review of records, home health did a visit on the patient today and found her to be very weak and had not gotten out of bed for few days. Attempted to call patient's daughter for additional history however [facility] In the ED, patient found to be in atrial fibrillation with RVR with rate in the 150s, wheezing on exam, UA suggestive of UTI, WBC 15K, lactate 2.5, K+ 2.9. patient was given nebulizer treatment, IV dexamethasone, metoprolol 5 mg IV, IV Zosyn, IVF. Admission Exam Per Admitting Provider General: Ill appearing Eyes: PERRL, conjunctivae normal, not pale, anicteric sclerae, EOM intact bilaterally ENMT: External ear and nose normal, oropharynx normal Respiratory: Normal respiratory effort, on chronic 2L NC, globally diminished breath sounds Cardiovascular: Irregularly irregular, tachycardia Gastrointestinal (Abdomen): Abdomen is not distended, soft, non-tender to palpation, no guarding, normal bowel sounds Musculoskeletal: No pedal edema Genitourinary: +CVA tenderness b/l Neurologic: Alert and oriented to person and place, No focal weakness, sensation grossly intact Psychiatric: Euthymic affect Discharge Exam Gen/Psych: WD/WN, sitting up in bed, NAD, A&Ox3 HEENT: Normocephalic, atraumatic, conjunctivae pink, mucous membranes moist Lung: Clear to auscultation bilaterally, no wheezes/rales/rhonchi Heart: Regular rate and rhythm, no murmurs/rubs/gallops Extremities: Normal peripheral pulses, no edema Abdomen: Soft, NT, ND, +BS x 4 : Lord in place with blood tinged urine Skin: Warm and dry, no rash Updated Medication List Medication Instructions Recorded Confirmed Type multivitamin 1 tab PO DAILY #0 tabs 02/07/14 08/22/24 History omega 1-qum-cyc-fish oil 1,000 mg 1 cap PO DAILY #0 caps 04/22/17 08/22/24 History (120 mg-180 mg) capsule (Fish Oil) magnesium oxide 400 mg PO BID #0 tabs 06/01/17 08/22/24 History apixaban 5 mg tablet (Eliquis) 5 mg PO BID 12/06/23 08/22/24 History atorvastatin 40 mg tablet 40 mg PO QAM 12/06/23 08/22/24 History citalopram 40 mg tablet 40 mg PO QAM 12/06/23 08/22/24 History clopidogrel 75 mg tablet 75 mg PO QAM 12/06/23 08/22/24 History fluticasone propionate 115 2 puff inhalation AMHS 12/06/23 08/22/24 History mcg-salmeterol 21 mcg/actuation HFA inhaler gabapentin 300 mg capsule 300 mg PO BID 12/06/23 08/22/24 History levothyroxine 25 mcg tablet 25 mcg PO DAILYBB 12/06/23 08/22/24 History oxybutynin chloride 5 mg 5 mg PO QAM 12/06/23 08/22/24 History tablet,extended release 24 hr potassium chloride 10 mEq 10 meq PO AMHS 12/06/23 08/22/24 History tablet,extended release(part/cryst) (Klor-Con M) nitroglycerin 0.4 mg sublingual 0.4 mg sublingual Q5M PRN chest 12/09/23 08/22/24 Rx tablet (Nitrostat) pain #30 tabs ipratropium 0.5 mg-albuterol 3 mg 3 ml NEB QIDR PRN shortness of 12/28/23 08/22/24 Rx (2.5 mg base)/3 mL nebulization breath #90 mL soln albuterol sulfate 90 mcg/actuation 2 puff inhalation Q4 PRN WHEEZING 01/30/24 08/22/24 History aerosol inhaler OR COUGH pantoprazole 40 mg tablet,delayed 40 mg PO QAM 01/30/24 08/22/24 History release (Protonix) tiotropium bromide 18 mcg capsule 1 cap inhalation QAM 03/02/24 08/22/24 History with inhalation device alendronate 70 mg tablet 70 mg PO WK 03/15/24 08/22/24 History cholecalciferol (vitamin D3) 50 50 mcg PO DAILY 03/24/24 08/22/24 History mcg (2,000 unit) tablet (Vitamin D3) furosemide 40 mg tablet 20 mg PO QAM 03/24/24 08/22/24 History oxycodone 5 mg tablet 5 mg PO Q4H PRN pain #15 tabs 04/01/24 08/22/24 Rx phenazopyridine 200 mg tablet 200 mg PO TID PRN pain #30 tabs 07/09/24 08/22/24 Rx (Pyridium) losartan 25 mg tablet 25 mg PO QAM #30 tabs 07/25/24 08/22/24 Rx ciprofloxacin HCl 500 mg tablet 500 mg PO BID #6 tabs 09/01/24 Rx metoprolol succinate 50 mg 50 mg PO BID #60 tabs 09/01/24 Rx tablet,extended release 24 hr Hospital Stay Data Consultations 08/22/24 13:23 ED Decision to Admit Stat 08/22/24 15:50 Consult Urology Routine Procedures Performed Operation Date: 08/28/24 11:00 Actual Procedures p Cystoscopy with Bilateral Retrograde Pyelogram, Right Ureteroscopy, Dilation, and Right Ureteral Stent Placement(Bilateral) - Pascual Newberry DO Diagnostic Imagining Performed Chest X-Ray 08/22/24 10:56 XR chest 1V portable CLINICAL HISTORY: Sepsis COMPARISON STUDY: 07/11/2024 FINDINGS: Stable mild cardiomegaly without pulmonary vascular congestion. Stable aortic ectasia. Stable hyperexpanded lungs. No effusion, consolidation, or pneumothorax. There is plate-screw fixation of the distal left humerus. IMPRESSION: No acute findings. ACT 112: Negative or not required by law. Electronically signed by: Theodore Villegas M.D. 08/22/2024 11:33 AM Abdomen/Pelvis CT 08/22/24 13:[address] WITHOUT CONTRAST CT DOSE: 316.52 mGy.cm HISTORY: sepsis, UTI TECHNIQUE: Multiaxial CT images of the abdomen and pelvis were performed without contrast. A dose lowering technique was utilized adhering to the principles of ALARA. COMPARISON STUDY: 07/08/2024 FINDINGS: ABDOMEN: Liver, spleen, pancreas, and adrenal glands have an unremarkable nonco ntrast appearance. There is no hydronephrosis or calculi on the left. There is a stable small cyst superior right kidney. There is mild hydronephrosis at the right kidney with mild perinephric stranding. There is a tiny calculus at the right mid kidney. No ureteral calculi seen. The ureter is mildly diffusely dilated to the right UVJ. Pelvis: Urinary bladder is distended. Uterus and adnexa are grossly unremarkable. Rectum is mildly distended with stool. Otherwise there is mild retained stool. No bowel inflammation or obstruction. No free fluid or free air. No enlarged adenopathy. Osseous structures: There is osteopenia. Stable mild scoliosis. Stable severe height loss at the T11 vertebral body. No acute osseous finding. Stable lumbar degenerative changes. IMPRESSION: 1. Distended urinary bladder. 2. Mild right hydronephrosis and hydroureter without obstructing calculus. The mild hydronephrosis could be due to the urinary bladder distention or a stricture at the right UVJ. There is mild inflammation at the right kidney. Suggest clinical correlation for ascending UTI/early right pyelonephritis. 3. Otherwise as described. No other acute findings seen. ACT 112: Negative or not required by law. The above report was generated using voice recognition software. It may contain grammatical, syntax or spelling errors. Electronically signed by: Theodore Villegas M.D. 08/22/2024 2:44 PM Retrograde Pyelogram 08/28/24 00:00 FL retrograde includes kub CLINICAL HISTORY: bilateral retrograde - right stent placement COMPARISON STUDY: CT 08/22/2024 FLUOROSCOPY TIME: 55.7 seconds FLUOROSCOPY IMAGES: 5 EXPOSURE DOSE: 6.94 mGy FINDINGS: Status post placement of a right ureteral stent which appears to be in satisfactory positioning. Persistent hydronephrosis. IMPRESSION: Fluoroscopic assistance as above. ACT 112: Negative or not required by law. Electronically signed by: Huber Cano M.D. 08/28/2024 12:20 PM Pending Results Patient Have Any Pending Studies at Discharge: No Discharge Instructions Given to Patient (Per Discharging Provider) You were admitted to the hospital for sepsis due to a urinary tract infection. You had a CT scan of your abdomen that showed an infection of your kidney. Therefore, you underwent a cystoscopy with stent placement by Dr Newberry on 08/28/2024. Urology is recommending that you continue with the lord catheter, complete your course of oral antibiotics, and follow up with them outpatient to remove the stent in 2-4 weeks. Your lord catheter was placed on 08/22/2024 and will need to be changed every 4 weeks. Early in your admission you had A fib with rapid rate. You received an IV dose of metoprolol and we increased your home dose of this medication. You worked with physical and occupational therapy while admitted who recommended rehab at discharge so you are being discharged to [facility]. MEDICATION CHANGES: -Ciprofloxacin 500mg by mouth twice daily until 09/04/2024 -Metoprolol 50mg by mouth twice daily -Please continue all other home medications as prescribed -You may take your Pyridium as needed for bladder/urinary pain SUMMARY OF TEST RESULTS: -See above PENDING TEST RESULTS: -None RECOMMENDATIONS FOR FOLLOW-UP: -Please follow up with your PCP after hospitalization -Expect a call from Urology to schedule a follow up appointment for stent removal in 2-4 weeks OTHER INSTRUCTIONS: Seek medical attention if you have: * temperature above 101 * chest pain or trouble breathing * abdominal pain, nausea, vomiting * diarrhea, dark stools or bloody stools * any unanswered questions or concerns Call 911 if symptoms are severe. It has been a pleasure taking care of you. Please take care of yourself. If you have any questions regarding your recent hospitalization please contact [facility] and request Steffen Aniketist @ [phone]. Total Time Total Time Spent Total Time Spent (In Minutes): I spent a total of 35 minutes coordinating, documenting and providing care for this patient excluding time spent in the performance of separately billed services or time spent by another provider/QHP. Supervising Physician Co-Signing Physician Notes I have reviewed the advanced practitioner's documentation, and I agree with, and take responsibility for the plan of care I spent a total of 30 minutes coordinating, documenting, and providing care for this patient excluding time spent in the performance of separately billed services. All of the aforementioned completed while collaborating with the assigned advanced practitioner for a full treatment plan
== END 2024-09-01 14:48 | DRG 854 ==
LOC: ED 10:46 → 2E 13:48 → SUATTDRO 13:48 → 2E 15:43 → 2S 17:37 → 3W 08-30 16:50

== ENCOUNTER 2024-09-24 18:32 | Inpatient (IN) ==
[~2024-09-24 18:32] MED LIST changes: -ACET-1311 PO; -CARV12.52 PO; -CHOL1POW32 PO; -CLX40 PO; -DICL75TA2 PO; +ETOMIDATE 2 MG/ML 20 ML VIAL IV ONE; -HYDR25TA4 PO; -LOSA100T33 PO; -LUTE15CA PO; -METR-163 PO; -MULT-506 PO; -POTA75TA PO; +ROCURONIUM BROMIDE 10 MG/ML 5 ML VIAL IV ONE; -SIMV40TA4 PO
--- NOTE | 2024-09-24 18:51 | Emergency Department Note ---
Impression & Plan Sepsis, Hypotension, Hypoglycemia, Acute UTI, Acute AK, Anemia, Respiratory failure, Acidosis ED Provider Note NAME: JJ TORREZ AGE: 74 SEX: F : 1950 ARRIVES VIA: Ambulance INFORMANT: [EMS, nursing] ED PROVIDER(S): [Wilfrido Retana MD] CHIEF COMPLAINT: Unresponsive HISTORY OF PRESENT ILLNESS: The patient is a 74-year-old female who left center care yesterday. Today, as per family, she was tired and really did not respond much of the day today. EMS was summoned this evening and her blood sugar was 14. Her blood pressure was in the 80s systolic. She received 25 g of dextrose IV and the sugar is now in the 200s and she is responding better although, her blood pressure is still low. She received about 100 cc of fluid in route. Of note, the EMS crew did find bedbugs in her home. The patient really cannot give any history. She has a history of COPD, she does wear 2 L of oxygen on a regular basis. As per the EMS team, the patient is a full code. PMHx/PSHx/Social Hx: See Below PHYSICAL EXAM: GENERAL: Patient is in mild respiratory distress. Quite thin and frail. HEENT: No acute trauma, normocephalic atraumatic, mucous membranes moist, no nasal congestion. Pupils equal and reactive to light. NECK: No stridor, no adenopathy, no meningismus, trachea is midline. LUNGS: Coarse breath sounds bilaterally with some crackles bilaterally. Mild respiratory distress. HEART: Heart tones are quite distant, no obvious murmur. ABDOMEN: Soft, nontender, no peritonitis. Helms catheter was noted. EXTREMITIES: No cyanosis, full range of motion of all the joints without pain or difficulty. NEUROLOGIC: Does open her eyes to voice. Does move all extremities. SKIN: No jaundice, no diaphoresis. DIFFERENTIAL DIAGNOSIS: Sepsis or bacteremia, UTI, pneumonia, hypoglycemia, electrolyte imbalance, AK, intracranial bleeding, among others. EMERGENCY DEPARTMENT PROCEDURES: Central line placement: This procedure was performed by me. The area for the procedure was cleansed sterilely and prepared for the procedure. Sterile technique was employed. Using the Seldinger technique, I was able to cannulate the right femoral vein. Placement of this line was difficult and 1 arterial puncture was noted. Pressure was held. Once the venous central line was placed, all ports did flush well. The line was then sutured into position. Intubation: This procedure was performed by me. Patient received 15 mg of etomidate IV, 50 mg of rocuronium IV. The patient was hyper oxygenated. Using rapid technique, the patient was intubated with a Sosa two blade. Some suction was required. No complication. The endotracheal tube was placed at 22 centimeters at the the lips. Good O2 saturation noted afterwards. Good CO2 color change. Breath sounds equal bilaterally. Post intubation chest x-ray demonstrated the tube to be somewhat deep, orders were given to withdraw the tube 2 cm. MEDICAL DECISION MAKING: There is a marked leukocytosis at 20,000, this would be consistent with infection. The patient is anemic however, this appears to be a chronic finding. There was an elevation to the platelet count at 529. INR was elevated at 2. Initial VBG showed evidence for respiratory acidosis. Potassium was elevated at 5.9. There was a very mild elevation to the creatinine. The glucose value was adequate. Lactic acid level was quite elevated at over 6, this is consistent with sepsis and dehydration. There was significant liver enzyme elevation consistent likely with shock liver. There was elevation to the troponin consistent with cardiac injury or mismatch from her hypotension and sepsis. Urinalysis is suggestive of infection. Chest x-ray did not show pneumonia or CHF. Brain CT did not show shift or intracranial bleeding. On exam, the patient was hypotensive, somnolent and in some mild respiratory distress. As per her daughter, she was a full code. The patient was aggressively managed. The nursing staff had a very difficult time finding an IV. I did eventually place a right femoral central line as noted above. Patient was placed on BiPAP with a DuoNeb. Patient received 1500 cc of IV saline. This should qualify for sepsis protocol based on actual body weight. Patient received IV cefepime as antibiotic coverage. Patient did seem to make some improvement with IV fluids. Her blood pressure was adequate. However she eventually began complaining of chest pain. Repeat ECG showed evidence for an acute AK. A heart alert was called. The patient was seen by the cardiac team and, the decision was made to hold off on catheter lab intervention given the seriousness to her situation and her other ongoing issues. I did elect to place the patient on the ventilator. Intubation was felt warranted given her respiratory status, the sepsis and now the AK. Intubation was performed without difficulty. The patient was seen by the ICU team and, an arterial line was placed to monitor blood pressure. While in the ED, she very briefly was placed on pressors by the ICU team, however, this was then discontinued by the ICU team as she was noted to be hypertensive. I had a long talk with the patient's daughter, I expressed the seriousness of the patient's condition and my concern that she would not survive this hospital stay. In short, the patient is septic, likely from a UTI. She has suffered an AK. She required central line placement, intubation, IV fluid replacement, IV antibiotic therapy. She will be admitted to the ICU. Her condition is critical. I spoke with case management, the on-call hospitalist was called. Prior/Outside records/notes reviewed: Today's EMS notes describing her presentation and transport to this hospital. ECG per my interpretation: Indication was presumed sepsis. The ECG shows a normal sinus rhythm with a rate of 73. There is an old septal infarct. There are some inverted T waves across the anterior leads. There is no acute ST elevation, no PVCs. The QTc is 519. Repeat ECG per my interpretation: Indication was chest pain. The ECG shows a normal sinus rhythm with evidence for an acute AK across the inferior and lateral leads. There were no PVCs. QTc was 511. The ST elevation was new compared to today's earlier ECG. Continuous Cardiac Monitoring per my interpretation: An order was placed for continuous cardiac monitoring. The monitor shows a rate of 75 with normal sinus rhythm. Imaging/x-ray results per my interpretation: Chest x-ray shows evidence for COPD, there was no pneumonia or CHF. A repeat film was done post intubation showing the tube to be within the trachea but slightly deep. The tube was withdrawn 2 cm. There was no pneumothorax. Chronic Medical/Social conditions affecting care: Advanced age, recent group home stay. Care/Management discussed with: Cardiology-Dr. Talavera. The ICU staff. Case management and the on-call hospitalist. Level of care consideration(s): After review of the information above and other included data: --I believe the patient requires escalation of care to admission Critical Care Note: I have personally spent 72 minutes of critical care time in the direct management of this patient. This includes bedside care, interpretation of diagnostic studies, and testing, discussion with consultants, patient, and family members, and other required patient management activities. This 72 minutes is in excess of all separately billable procedures. DISPOSITION: Admission Past Med/Surg History Problem List (Updated 09/25/24 @ 13:02 by Wilfrido Retana MD) Acidosis (Acute) Respiratory failure (Acute) Anemia (Acute) Acute AK (Acute) Acute UTI (Acute) Hypoglycemia (Acute) Hypotension (Acute) Sepsis (Acute) Shock liver Acute blood loss anemia Hypovolemic shock Septic shock Rectal bleeding Acute and chronic respiratory failure Urinary tract infection Severe sepsis Hyperkalemia Acute renal failure LVH (left ventricular hypertrophy) due to hypertensive disease CAD (coronary artery disease), [place] coronary artery Abnormal EKG Hypothyroidism Hydronephrosis Sepsis (Acute) Atrial fibrillation with RVR (Acute) Anticoagulant long-term use (Acute) Hypokalemia (Acute) Medical History Depression GERD (gastroesophageal reflux disease) COPD with exacerbation Dyslipidemia, goal LDL below 70 Chronic hypoxic respiratory failure 3L NC chronic CAD (coronary artery disease) 2022 - STEMI w/ RCA interventions Anemia COPD (chronic obstructive pulmonary disease) PAF (paroxysmal atrial fibrillation) HTN (hypertension) Myocardial infarction due to demand ischemia Non-ST elevation AK (NSTEMI) Macular degeneration Tobacco use disorder Atrial fibrillation Diabetes Surgical History S/P ORIF (open reduction internal fixation) fracture H/O skin graft History of tonsillectomy H/O heart surgery History of cholecystectomy Hx of tubal ligation Social History Smoking Status: Current every day smoker Tobacco Type: Cigarettes Cigarettes Per Day: 5; Second Hand Exposure: No; Do You Dip or Chew Tobacco: No; Hx Alcohol Use: No Hx Substance Use: No Preferred Language: Thai Communication Ability: Effective Cushion Filler Required: No Beliefs That Will Affect Care: None Current Living Situation: Family Current Living Situation Comment: with daughter Other Information That Helps Us Care for You: No Feels Safe at Home: Yes Safety Concerns: Feels Safe At This Time Assistive Devices: Oxygen - Continuous, Walker and Wheelchair Allergies Allergies Allergy/AdvReac Type Severity Reaction Status Date / Time bee venom protein (honey bee) Allergy Severe SWELLING Verified 01/30/24 16:12 SEVERE doxycycline Allergy Intermediate Vomiting Verified 01/30/24 16:12 Home Meds Home Medications Medication Instructions Recorded Confirmed albuterol sulfate 90 mcg/actuation 2 puff inhalation Q4H PRN 09/24/24 09/24/24 aerosol inhaler Shortness Of Breath Or Wheezing alendronate 70 mg tablet 70 mg PO WK 09/24/24 09/24/24 apixaban 5 mg tablet (Eliquis) 5 mg PO BID 09/24/24 09/24/24 atorvastatin 40 mg tablet 40 mg PO DAILY 09/24/24 09/24/24 cholecalciferol (vitamin D3) 50 50 mcg PO DAILY 09/24/24 09/24/24 mcg (2,000 unit) capsule (Vitamin D3) citalopram 40 mg tablet 40 mg PO DAILY 09/24/24 09/24/24 clopidogrel 75 mg tablet (Plavix) 75 mg PO DAILY 09/24/24 09/24/24 docosahexaenoic acid (dha)-epa 120 1 cap PO DAILY 09/24/24 09/24/24 mg-180 mg capsule (Fish Oil) fluticasone propionate 115 2 puff inhalation BID 09/24/24 09/24/24 mcg-salmeterol 21 mcg/actuation HFA inhaler furosemide 40 mg tablet 20 mg PO DAILY 09/24/24 09/24/24 gabapentin 300 mg capsule 300 mg PO BID 09/24/24 09/24/24 ipratropium 0.5 mg-albuterol 3 mg 3 ml inhalation QID PRN Shortness 09/24/24 09/24/24 (2.5 mg base)/3 mL nebulization Of Breath Or Wheezing soln levothyroxine 25 mcg tablet 25 mcg PO DAILY 09/24/24 09/24/24 losartan 25 mg tablet 25 mg PO DAILY 09/24/24 09/24/24 magnesium oxide 400 mg PO BID 09/24/24 09/24/24 metoprolol succinate 50 mg 50 mg PO BID 09/24/24 09/24/24 tablet,extended release 24 hr multivitamin 1 tab PO DAILY 09/24/24 09/24/24 nitroglycerin 0.4 mg sublingual 0.4 mg sublingual UD 09/24/24 09/24/24 tablet oxybutynin chloride 5 mg 5 mg PO DAILY 09/24/24 09/24/24 tablet,extended release 24 hr oxycodone 5 mg tablet 5 mg PO Q4H PRN Pain 09/24/24 09/24/24 pantoprazole 40 mg tablet,delayed 40 mg PO DAILY 09/24/24 09/24/24 release (Protonix) potassium chloride 10 mEq 10 meq PO BID 09/24/24 09/24/24 tablet,extended release (Klor-Con) tiotropium bromide 18 mcg capsule 1 cap inhalation DAILY 09/24/24 09/24/24 with inhalation device Results & Data (ED) Vital Signs Vital Signs - 24 hr 09/24/24 18:43 09/24/24 18:43 09/24/24 18:43 Temperature 36.6 C Temperature Source Rectal Rectal Pulse Rate Pulse Rate [Apical] 74 Pulse Rate from SpO2 Sensor Pulse Rhythm Regular Pulse Rhythm [Apical] Regular Pulse Strength Normal Pulse Strength [Apical] Normal Respiratory Rate 32 H 35 H Respiratory Effort / Characteristics Spontaneous Labored Short of Breath Non-Labored Spontaneous Respiratory Depth Normal Normal Respiratory Pattern Rapid/Shallow Regular Blood Pressure 106/87 Blood Pressure [Right Arm] 106/87 Blood Pressure Mean 93 Blood Pressure Mean [Right Arm] 93 Blood Pressure Position Lying Pulse Oximetry 100 87 L 100 Oxygen Delivery Method Non-rebreather Non-rebreather Non-rebreather Oxygen Flow Rate 8 2 8 Fraction of Inspired Oxygen Sepsis Recent Fever Within 48 Hours No Sepsis New/Unexplained Change in Mental Status No Sepsis Action Taken by Nursing No Action Required Oxygen Flow Rate - Titration 8 Pulse Oximetry Post Tiitration 100 09/24/24 18:48 09/24/24 18:48 09/24/24 18:57 Temperature Temperature Source Pulse Rate 73 74 74 Pulse Rate [Apical] Pulse Rate from SpO2 Sensor 74 74 Pulse Rhythm Pulse Rhythm [Apical] Pulse Strength Pulse Strength [Apical] Respiratory Rate 36 H 27 H Respiratory Effort / Characteristics Respiratory Depth Respiratory Pattern Blood Pressure 123/84 Blood Pressure [Right Arm] Blood Pressure Mean 97 Blood Pressure Mean [Right Arm] Blood Pressure Position Pulse Oximetry 100 100 Oxygen Delivery Method Oxygen Flow Rate Fraction of Inspired Oxygen Sepsis Recent Fever Within 48 Hours Sepsis New/Unexplained Change in Mental Status Sepsis Action Taken by Nursing Oxygen Flow Rate - Titration Pulse Oximetry Post Tiitration 09/24/24 19:06 09/24/24 19:20 09/24/24 19:24 Temperature Temperature Source Pulse Rate 73 104 H Pulse Rate [Apical] Pulse Rate from SpO2 Sensor Pulse Rhythm Pulse Rhythm [Apical] Pulse Strength Pulse Strength [Apical] Respiratory Rate 33 H 36 H Respiratory Effort / Characteristics Non-Labored Spontaneous Respiratory Depth Normal Respiratory Pattern Regular Blood Pressure 135/68 Blood Pressure [Right Arm] Blood Pressure Mean 86 Blood Pressure Mean [Right Arm] Blood Pressure Position Pulse Oximetry 100 91 Oxygen Delivery Method Non-rebreather Oxygen Flow Rate 8 Fraction of Inspired Oxygen 24 Sepsis Recent Fever Within 48 Hours Sepsis New/Unexplained Change in Mental Status Sepsis Action Taken by Nursing Oxygen Flow Rate - Titration Pulse Oximetry Post Tiitration 09/24/24 19:24 09/24/24 19:30 09/24/24 19:31 Temperature Temperature Source Pulse Rate 75 81 Pulse Rate [Apical] Pulse Rate from SpO2 Sensor 75 71 Pulse Rhythm Pulse Rhythm [Apical] Pulse Strength Pulse Strength [Apical] Respiratory Rate 26 H 37 H 32 H Respiratory Effort / Characteristics Respiratory Depth Respiratory Pattern Blood Pressure 135/68 110/75 Blood Pressure [Right Arm] Blood Pressure Mean 90 101 Blood Pressure Mean [Right Arm] Blood Pressure Position Pulse Oximetry 100 81 L 90 Oxygen Delivery Method BiPAP Oxygen Flow Rate Fraction of Inspired Oxygen Sepsis Recent Fever Within 48 Hours Sepsis New/Unexplained Change in Mental Status Sepsis Action Taken by Nursing Oxygen Flow Rate - Titration Pulse Oximetry Post Tiitration 09/24/24 19:42 09/24/24 19:54 09/24/24 20:06 Temperature Temperature Source Pulse Rate 81 Pulse Rate [Apical] Pulse Rate from SpO2 Sensor 68 65 63 Pulse Rhythm Pulse Rhythm [Apical] Pulse Strength Pulse Strength [Apical] Respiratory Rate 32 H 33 H 31 H Respiratory Effort / Characteristics Respiratory Depth Respiratory Pattern Blood Pressure Blood Pressure [Right Arm] Blood Pressure Mean Blood Pressure Mean [Right Arm] Blood Pressure Position Pulse Oximetry 88 L 84 L 90 Oxygen Delivery Method Oxygen Flow Rate Fraction of Inspired Oxygen Sepsis Recent Fever Within 48 Hours Sepsis New/Unexplained Change in Mental Status Sepsis Action Taken by Nursing Oxygen Flow Rate - Titration Pulse Oximetry Post Tiitration 09/24/24 20:10 09/24/24 20:18 09/24/24 20:24 Temperature Temperature Source Pulse Rate 97 H 63 Pulse Rate [Apical] Pulse Rate from SpO2 Sensor 63 64 63 Pulse Rhythm Pulse Rhythm [Apical] Pulse Strength Pulse Strength [Apical] Respiratory Rate 31 H 33 H 30 H Respiratory Effort / Characteristics Respiratory Depth Respiratory Pattern Blood Pressure 114/66 108/59 L Blood Pressure [Right Arm] Blood Pressure Mean 80 75 Blood Pressure Mean [Right Arm] Blood Pressure Position Pulse Oximetry 93 91 Oxygen Delivery Method Oxygen Flow Rate Fraction of Inspired Oxygen Sepsis Recent Fever Within 48 Hours Sepsis New/Unexplained Change in Mental Status Sepsis Action Taken by Nursing Oxygen Flow Rate - Titration Pulse Oximetry Post Tiitration 09/24/24 20:46 09/24/24 20:49 09/24/24 20:51 Temperature Temperature Source Pulse Rate 65 65 Pulse Rate [Apical] Pulse Rate from SpO2 Sensor 66 Pulse Rhythm Pulse Rhythm [Apical] Pulse Strength Pulse Strength [Apical] Respiratory Rate 22 Respiratory Effort / Characteristics Respiratory Depth Respiratory Pattern Blood Pressure Blood Pressure [Right Arm] Blood Pressure Mean 83 Blood Pressure Mean [Right Arm] Blood Pressure Position Pulse Oximetry 98 Oxygen Delivery Method Oxygen Flow Rate Fraction of Inspired Oxygen Sepsis Recent Fever Within 48 Hours Sepsis New/Unexplained Change in Mental Status Sepsis Action Taken by Nursing Oxygen Flow Rate - Titration Pulse Oximetry Post Tiitration 09/24/24 21:03 09/24/24 21:12 09/24/24 21:21 Temperature Temperature Source Pulse Rate 66 69 68 Pulse Rate [Apical] Pulse Rate from SpO2 Sensor 69 Pulse Rhythm Pulse Rhythm [Apical] Pulse Strength Pulse Strength [Apical] Respiratory Rate 16 25 H 21 Respiratory Effort / Characteristics Respiratory Depth Respiratory Pattern Blood Pressure Blood Pressure [Right Arm] Blood Pressure Mean Blood Pressure Mean [Right Arm] Blood Pressure Position Pulse Oximetry 94 Oxygen Delivery Method Oxygen Flow Rate Fraction of Inspired Oxygen Sepsis Recent Fever Within 48 Hours Sepsis New/Unexplained Change in Mental Status Sepsis Action Taken by Nursing Oxygen Flow Rate - Titration Pulse Oximetry Post Tiitration Home Medications Current Medication List: was personally reviewed by me Laboratory Data Attestation: I reviewed the patient's lab results. 09/25/24 10:31 09/25/24 02:13 Lab Results 09/24/24 09/24/24 09/24/24 Range/Units 19:14 19:58 20:17 WBC 20.14 H (4.8-10.8) K/ul RBC 3.03 L (4.20-5.40) M/uL Hgb 8.4 L (12.0-16.0) g/dl POC Hgb 9.9 L (12.0-16.0) g/dl Hct 29.2 L (37.0-47.0) % POC Hct 29 L (37-47) % MCV 96.4 (80.0-100.0) fL MCH 27.7 (25.0-34.0) pg MCHC 28.8 L (32.0-36.0) g/dL RDW Std Deviation 62.7 H (36.4-46.3) fL RDW Coeff of Chet 17.6 H (11.5-14.5) % Plt Count 529 H (130-400) K/uL MPV 9.0 L (9.4-12.4) fL Immature Gran % (Auto) 2.4 % Neut % (Auto) 87.2 % Lymph % (Auto) 4.7 % [place] % (Auto) 5.5 % Eos % (Auto) 0.1 % Baso % (Auto) 0.1 % Neut # (Auto) 17.55 H (1.40-6.50) K/uL Lymph # (Auto) 0.94 L (1.20-3.40) K/uL [place] # (Auto) 1.11 H (0.11-0.59) K/uL Eos # (Auto) 0.03 (0.00-0.50) K/uL Baso # (Auto) 0.03 (0.00-0.20) K/uL Immature Gran # (Auto) 0.48 H (0.01-0.20) K/uL Absolute Nucleated RBC 0.02 (0.00-0.12) K/uL Nucleated RBC % (auto) 0.1 % PT 20.8 H (9.0-12.0) Seconds INR 2.0 H (0.9-1.1) APTT 37 H (21-31) Seconds PTT Ratio 1.4 POC pH 7.17 L* (7.35-7.45) POC pCO2 84 H (35-46) mmHg POC pO2 295 H (80-95) mmHg POC HCO3 31 H (19-24) norma/L POC Total CO2 34 H (24-31) mmol/L POC Base Excess 3.0 H (-9-1.8) norma/L POC ABG O2 Sat 100.0 H (90-95) % POC Sodium 136 (135-144) mmol/L Sodium 141 (136-145) mmol/L POC Potassium 5.8 H (3.3-5.0) mmol/L Potassium 5.9 H (3.5-5.1) mmol/L POC Chloride (101-112) mmol/L Chloride 99 (98-107) mmol/L Carbon Dioxide 29 (21-32) mmol/L Anion Gap 13 H (3-11) POC Anion Gap (16-25) mmol/L POC BUN (7-18) mg/dl BUN 33 H (6-23) mg/dl Creatinine 1.35 H (0.6-1.2) mg/dl POC Creatinine (0.6-1.3) mg/dl Est Cr Clr Drug Dosing 26.7 ml/min eGFR 40.98 BUN/Creatinine Ratio 24.4 H (10-20) Glucose 186 H (70-99(Fasting)) mg/dl POC Glucose 196 H (70-99) mg/dl POC Glucose (other) (70-99) mg/dl Lactate 6.6 H* (0.4-2.0) mmol/L Calcium 8.4 L (8.6-10.3) mg/dl POC Ioniz Calcium Tabitha (1.12-1.32) mmol/l Magnesium 2.4 (1.7-2.4) mg/dl Total Bilirubin 0.8 (0.2-1.0) mg/dl Direct Bilirubin 0.4 H (0-0.2) mg/dl AST 1122 H (13-39) U/L ALT 692 H (7-52) U/L Alkaline Phosphatase 132 H (34-104) U/L Troponin I High Sens 415.2 H* (0-14) pg/ml Total Protein 6.1 (6.0-8.3) gm/dl Albumin 3.1 L (3.4-5.0) gm/dl Procalcitonin 4.50 H (0-0.5) ng/ml Urine Color Urine Appearance (Clear) Urine pH (4.5-7.5) Ur Specific Delta (1.000-1.030) Urine Protein (Negative) Urine Glucose (UA) (Negative) Urine Ketones (Negative) Urine Blood (Negative) Urine Nitrite (Negative) Urine Bilirubin (Negative) Urine Urobilinogen (Negative) Ur Leukocyte Esterase (Negative) Urine WBC (Auto) (0-5) /hpf Urine RBC (Auto) (0-2) /hpf U Hyaline Cast (Auto) (0-2) /lpf U Epithel Cells (Auto) (0-2) /hpf Urine Bacteria (Auto) (None Seen) Hyaline Casts (None Presnt) /lpf Urine Yeast (None Prsent) Urine Comment 09/24/24 09/24/24 Range/Units 20:23 20:27 WBC (4.8-10.8) K/ul RBC (4.20-5.40) M/uL Hgb (12.0-16.0) g/dl POC Hgb 9.5 L (12.0-16.0) g/dl Hct (37.0-47.0) % POC Hct 28 L (37-47) % MCV (80.0-100.0) fL MCH (25.0-34.0) pg MCHC (32.0-36.0) g/dL RDW Std Deviation (36.4-46.3) fL RDW Coeff of Chet (11.5-14.5) % Plt Count (130-400) K/uL MPV (9.4-12.4) fL Immature Gran % (Auto) % Neut % (Auto) % Lymph % (Auto) % [place] % (Auto) % Eos % (Auto) % Baso % (Auto) % Neut # (Auto) (1.40-6.50) K/uL Lymph # (Auto) (1.20-3.40) K/uL [place] # (Auto) (0.11-0.59) K/uL Eos # (Auto) (0.00-0.50) K/uL Baso # (Auto) (0.00-0.20) K/uL Immature Gran # (Auto) (0.01-0.20) K/uL Absolute Nucleated RBC (0.00-0.12) K/uL Nucleated RBC % (auto) % PT (9.0-12.0) Seconds INR (0.9-1.1) APTT (21-31) Seconds PTT Ratio POC pH (7.35-7.45) POC pCO2 (35-46) mmHg POC pO2 (80-95) mmHg POC HCO3 (19-24) norma/L POC Total CO2 28 (24-31) mmol/L POC Base Excess (-9-1.8) norma/L POC ABG O2 Sat (90-95) % POC Sodium 138 (135-144) mmol/L Sodium (136-145) mmol/L POC Potassium 5.8 H (3.3-5.0) mmol/L Potassium (3.5-5.1) mmol/L POC Chloride 100 L (101-112) mmol/L Chloride (98-107) mmol/L Carbon Dioxide (21-32) mmol/L Anion Gap (3-11) POC Anion Gap 17.0 (16-25) mmol/L POC BUN 31 H (7-18) mg/dl BUN (6-23) mg/dl Creatinine (0.6-1.2) mg/dl POC Creatinine 1.4 H (0.6-1.3) mg/dl Est Cr Clr Drug Dosing ml/min eGFR BUN/Creatinine Ratio (10-20) Glucose (70-99(Fasting)) mg/dl POC Glucose (70-99) mg/dl POC Glucose (other) 177 H (70-99) mg/dl Lactate (0.4-2.0) mmol/L Calcium (8.6-10.3) mg/dl POC Ioniz Calcium Tabitha 1.01 L (1.12-1.32) mmol/l Magnesium (1.7-2.4) mg/dl Total Bilirubin (0.2-1.0) mg/dl Direct Bilirubin (0-0.2) mg/dl AST (13-39) U/L ALT (7-52) U/L Alkaline Phosphatase (34-104) U/L Troponin I High Sens (0-14) pg/ml Total Protein (6.0-8.3) gm/dl Albumin (3.4-5.0) gm/dl Procalcitonin (0-0.5) ng/ml Urine Color [place] Urine Appearance Turbid A (Clear) Urine pH 5.0 (4.5-7.5) Ur Specific Delta 1.014 (1.000-1.030) Urine Protein 2+ H (Negative) Urine Glucose (UA) Negative (Negative) Urine Ketones Negative (Negative) Urine Blood 3+ H (Negative) Urine Nitrite Negative (Negative) Urine Bilirubin 1+ H (Negative) Urine Urobilinogen Negative (Negative) Ur Leukocyte Esterase 3+ H (Negative) Urine WBC (Auto) >50 H (0-5) /hpf Urine RBC (Auto) >20 H (0-2) /hpf U Hyaline Cast (Auto) >20 H (0-2) /lpf U Epithel Cells (Auto) 3-5 H (0-2) /hpf Urine Bacteria (Auto) 2+ H (None Seen) Hyaline Casts Present A (None Presnt) /lpf Urine Yeast Present A (None Prsent) Urine Comment Administered Medications Albuterol (Albut/Ipratrop 3mg/0.5mg Neb 3 Ml Vial) 3 ml NEB Q6R GELACIO; Protocol Stop: 10/25/24 00:59 Last Admin: 09/25/24 07:22 Dose: 3 ml Documented By: Admin: 09/25/24 01:50 Dose: 3 ml Documented By: ROMANA Norepinephrine Bitartrate (Levophed/D5w) 4 mg in 250 mls @ 8.813 mls/hr IV .Q24H GELACIO; Protocol Stop: 10/24/24 21:44 Last Titration: 09/25/24 11:47 Dose: 0.07 mcg/kg/min, 12.3 mls/hr Documented By: PATRICIA Co-signed By: GPF Titration: 09/25/24 10:11 Dose: 0.05 mcg/kg/min, 8.8 mls/hr Documented By: PATRICIA Co-signed By: GPF Titration: 09/25/24 09:52 Dose: 0.07 mcg/kg/min, 12.3 mls/hr Documented By: PATRICIA Co-signed By: KJS Titration: 09/25/24 08:58 Dose: 0.09 mcg/kg/min, 15.9 mls/hr Documented By: MELISSAL Co-signed By: WMK Titration: 09/25/24 07:48 Dose: 0.11 mcg/kg/min, 19.4 mls/hr Documented By: BOB Co-signed By: PATRICIA Titration: 09/25/24 02:15 Dose: 0.13 mcg/kg/min, 22.9 mls/hr Documented By: AMS Co-signed By: KAN Titration: 09/25/24 02:01 Dose: 0.11 mcg/kg/min, 19.4 mls/hr Documented By: AMS Co-signed By: KAN Titration: 09/25/24 01:42 Dose: 0.09 mcg/kg/min, 15.9 mls/hr Documented By: AMS Co-signed By: CLC Titration: 09/25/24 01:27 Dose: 0.07 mcg/kg/min, 12.3 mls/hr Documented By: AMS Co-signed By: SG Titration: 09/25/24 01:21 Dose: 0.05 mcg/kg/min, 8.8 mls/hr Documented By: AMS Co-signed By: SG Titration: 09/24/24 21:54 Dose: 0 mcg/kg/min, 0 mls/hr Documented By: JOLENEW Co-signed By: OTONIEL Admin: 09/24/24 21:36 Dose: 0.05 mcg/kg/min, 8.8 mls/hr Documented By: EJW Co-signed By: OTONIEL Propofol (Diprivan) 1,000 mg in 100 mls @ 4.23 mls/hr IV .[id number] [facility]; Protocol Stop: 09/27/24 21:44 Last Admin: 09/25/24 12:21 Dose: 15 mcg/kg/min, 4.2 mls/hr Documented By: MTP Co-signed By: PATRICIA Titration: 09/25/24 12:21 Dose: Infused Documented By: MTP Co-signed By: KJOlive Titration: 09/25/24 08:19 Dose: 15 mcg/kg/min, 4.2 mls/hr Documented By: AMS Co-signed By: KJL Titration: 09/25/24 01:30 Dose: 15 mcg/kg/min, 4.2 mls/hr Documented By: Admin: 09/24/24 21:38 Dose: 20 mcg/kg/min, 5.6 mls/hr Documented By: EJW Co-signed By: OTONIEL Fentanyl Citrate (Fentanyl Citrate) 2,500 mcg in 250 mls @ 5 mls/hr IV .Q50H [facility]; Protocol Stop: 10/08/24 22:14 Last Titration: 09/25/24 08:19 Dose: 50 mcg/hr, 5 mls/hr Documented By: AMS Co-signed By: PATRICIA Admin: 09/24/24 23:22 Dose: 50 mcg/hr, 5 mls/hr Documented By: KAN Co-signed By: TYRESE Lactated Ringer's (Lr) 1,000 mls @ 75 mls/hr IV .[id number] [facility] Stop: 09/28/24 00:44 Last Admin: 09/25/24 12:30 Dose: 75 mls/hr Documented By: Infusion: 09/25/24 12:30 Dose: Infused Documented By: Admin: 09/25/24 00:46 Dose: 75 mls/hr Documented By: BOB Famotidine (Pepcid 20mg Iv Push) 20 mg in 5 mls @ 2.5 mls/min IV BID GELACIO Stop: 10/25/24 00:44 Last Admin: 09/25/24 08:48 Dose: 2.5 mls/min Documented By: Admin: 09/25/24 01:14 Dose: 2.5 mls/min Documented By: BOB Piperacillin Sod/Tazobactam Sod (Zosyn) 4.5 gm in 100 mls @ 25 mls/hr IV Q8H [facility]; Protocol Stop: 10/05/24 13:29 Last Admin: 09/25/24 12:27 Dose: 25 mls/hr Documented By: MTP Insulin Aspart (Insulin Aspart Per Unit Charge) 0 units SC Q6 [facility]IO Stop: 10/25/24 05:59 Last Admin: 09/25/24 11:59 Dose: 1 units Documented By: PATRICIA Co-signed By: ZOYA Admin: 09/25/24 08:47 Dose: Not Given Documented By: PATRICIA Polyethylene Glycol (Polyethylene (Miralax) 17 Gm Pack) 17 gm PO DAILY GELACIO Stop: 10/25/24 08:59 Last Admin: 09/25/24 08:41 Dose: Not Given Documented By: PATRICIA Senna/Docusate Sodium (Docusate Sodium/Senna 50/8.6mg Tab) 1 tab PO QAM [facility] Stop: 10/25/24 08:59 Last Admin: 09/25/24 08:41 Dose: Not Given Documented By: PATRICIA Discontinued Medications Albuterol (Albut/Ipratrop 3mg/0.5mg Neb 3 Ml Vial) 3 ml NEB NOW STA; Protocol Stop: 09/24/24 19:25 Last Admin: 09/24/24 20:22 Dose: 3 ml Documented By: JACKIE Atropine Sulfate (Atropine Sulfate 0.1 Mg/Ml 10ml Syr) Confirm Administered Dose 1 mg IV .STK-MED ONE Stop: 09/24/24 21:15 Last Admin: 09/24/24 21:58 Dose: Not Given Documented By: JACKIE Epinephrine HCl (Epinephrine 1.5" Ndl 0.1 Mg/Ml Syr) Confirm Administered Dose 2 mg IV .STK-MED ONE Stop: 09/24/24 21:15 Last Admin: 09/24/24 21:58 Dose: Not Given Documented By: JACKIE Fentanyl Citrate (Fentanyl Citrate Pf 100 Mcg/2 Ml Vial) Confirm Administered Dose 100 mcg .ROUTE .STK-MED ONE Stop: 09/24/24 21:13 Last Admin: 09/24/24 21:58 Dose: Not Given Documented By: JACKIE Fentanyl Citrate (Fentanyl Citrate Pf 100 Mcg/2 Ml Vial) 50 mcg IV NOW STA Stop: 09/24/24 22:03 Last Admin: 09/24/24 22:06 Dose: 50 mcg Documented By: JACKIE Fentanyl Citrate (Fentanyl Citrate Pf 100 Mcg/2 Ml Vial) Confirm Administered Dose 100 mcg .ROUTE .STK-MED ONE Stop: 09/24/24 22:06 Last Admin: 09/24/24 22:17 Dose: Not Given Documented By: JACKIE Heparin Sodium (Porcine) (Heparin (Porcine) 1000 Unit/Ml 10 Ml ([facility] Use Only)) Confirm Administered Dose 10,000 units .ROUTE .STK-MED ONE Stop: 09/24/24 21:13 Last Admin: 09/24/24 21:58 Dose: Not Given Documented By: JACKIE Heparin Sodium/Sodium Chloride (Heparin In Nss Infusion 1000 Unit/500 Ml (2 U/Ml) Bag) Confirm Administered Dose 3,000 units IV .STK-MED ONE Stop: 09/24/24 21:14 Last Admin: 09/24/24 21:58 Dose: Not Given Documented By: JACKIE Sodium Chloride (Nss) 1,000 mls @ 999 mls/hr IV .Q1H1M [facility] Stop: 09/24/24 19:45 Last Infusion: 09/24/24 21:41 Dose: Infused Documented By: Admin: 09/24/24 20:22 Dose: 999 mls/hr Documented By: JACKIE Cefepime HCl (Maxipime 2000mg) 2,000 mg in 20 mls @ 5 mls/min IV NOW STA; Protocol Stop: 09/24/24 18:45 Last Admin: 09/24/24 20:18 Dose: 5 mls/min Documented By: JACKIE Sodium Chloride (Nss) 500 mls @ 999 mls/hr IV .Q31M ONE Stop: 09/24/24 21:07 Last Infusion: 09/24/24 21:41 Dose: Infused Documented By: Admin: 09/24/24 21:04 Dose: 999 mls/hr Documented By: JACKIE Piperacillin Sod/Tazobactam Sod (Zosyn) 4.5 gm in 100 mls @ 200 mls/hr IV NOW ONE; Protocol Stop: 09/24/24 22:23 Last Admin: 09/24/24 22:12 Dose: Not Given Documented By: JACKIE Dextrose/Lactated Ringer's (D5w And Lactated Ringers) 1,000 mls @ 75 mls/hr IV .[id number] [facility] Stop: 09/27/24 22:59 Last Infusion: 09/25/24 00:47 Dose: Infused Documented By: Admin: 09/24/24 23:23 Dose: 75 mls/hr Documented By: KAN Vancomycin HCl (Vancomycin Hcl) 1,000 mg in 270 mls @ 200 mls/hr IV ONE ONE; Protocol Stop: 09/25/24 00:50 Last Infusion: 09/25/24 00:49 Dose: Infused Documented By: Admin: 09/24/24 23:28 Dose: 200 mls/hr Documented By: KAN Vancomycin HCl 750 mg/ Sodium (Chloride) 265 mls @ 200 mls/hr IV Q24H [facility] Stop: 10/05/24 07:59 Last Admin: 09/25/24 08:48 Dose: 200 mls/hr Documented By: KJOlive Lactated Ringer's (Lr) 500 mls @ 999 mls/hr IV .Q31M ONE Stop: 09/25/24 02:32 Last Infusion: 09/25/24 03:04 Dose: Infused Documented By: Admin: 09/25/24 02:33 Dose: 999 mls/hr Documented By: KAN Vasopressin 20 units/ Sodium (Chloride) 101 mls @ 12.12 mls/hr IV .Q8H20M [facility] Stop: 10/25/24 02:14 Last Infusion: 09/25/24 10:16 Dose: Infused Documented By: PATRICIA Co-signed By: SOCRATES Admin: 09/25/24 09:55 Dose: 0.04 unit/min, 12.1 mls/hr Documented By: PATRICIA Co-signed By: SOCRATES Infusion: 09/25/24 09:55 Dose: Infused Documented By: PATRICIA Co-signed By: SOCRATES Infusion: 09/25/24 08:18 Dose: 0.04 unit/min, 12.1 mls/hr Documented By: AMS Co-signed By: PATRICIA Admin: 09/25/24 02:32 Dose: 0.04 unit/min, 12.1 mls/hr Documented By: KAN Co-signed By: TYRESE Prothrombin Complex Concent ( (Human) 2,000 units/ Syringe) 80 mls @ 10 mls/min IV NOW ONE; Protocol Stop: 09/25/24 03:52 Last Admin: 09/25/24 04:04 Dose: 10 mls/min Documented By: BOB Phytonadione 10 mg/ Dextrose 51 mls @ 102 mls/hr IV ONE ONE Stop: 09/25/24 04:14 Last Infusion: 09/25/24 05:32 Dose: Infused Documented By: Admin: 09/25/24 05:02 Dose: 102 mls/hr Documented By: BOB Piperacillin Sod/Tazobactam Sod (Zosyn) 4.5 gm in 100 mls @ 200 mls/hr IV NOW STA; Protocol Stop: 09/25/24 08:02 Last Admin: 09/25/24 08:48 Dose: 200 mls/hr Documented By: PATRICIA Calcium Gluconate () 1,000 mg in 60 mls @ 240 mls/hr IV Q15M [facility] Stop: 09/25/24 11:44 Last Admin: 09/25/24 12:30 Dose: 240 mls/hr Documented By: Infusion: 09/25/24 12:19 Dose: Infused Documented By: Admin: 09/25/24 11:59 Dose: 240 mls/hr Documented By: PATRICIA Insulin Aspart (Insulin Aspart Per Unit Charge) 0 units SC ONE STA Stop: 09/25/24 01:06 Last Admin: 09/25/24 01:13 Dose: 3 units Documented By: AMS Co-signed By: [id number] Iodixanol (Iodixanol (Visipaque) 320 Mg/Ml 100ml) Confirm Administered Dose 1 ml IV .STK-MED ONE Stop: 09/24/24 21:14 Last Admin: 09/24/24 21:58 Dose: Not Given Documented By: JACKIE Ioversol (Optiray 350) Confirm Administered Dose 1 ml .ROUTE .STK-MED ONE Stop: 09/24/24 21:14 Last Admin: 09/24/24 21:58 Dose: Not Given Documented By: JACKIE Ioversol (Optiray 320 125ml) 118 ml IV ONCE ONE Stop: 09/25/24 04:43 Last Admin: 09/25/24 04:43 Dose: 118 ml Documented By: ROXANN Midazolam HCl (Midazolam Hcl 1 Mg/Ml 2ml Vial) Confirm Administered Dose 2 mg .ROUTE .STK-MED ONE Stop: 09/24/24 21:13 Last Admin: 09/24/24 21:58 Dose: Not Given Documented By: JACKIE Miscellaneous (Rapid Sequence Induction Bag) Confirm Administered Dose 1 each N/A .STK-MED ONE Stop: 09/24/24 21:18 Last Admin: 09/24/24 21:57 Dose: 1 each Documented By: JACKIE Lynn (Stat Iv Infusion Titration Per Protocol) 1 each N/A NOW STA Stop: 09/24/24 21:35 Last Admin: 09/24/24 21:39 Dose: 1 each Documented By: JACKIE Morphine Sulfate (Morphine Sulfate 2 Mg/Ml Carp) 2 mg IV NOW STA Stop: 09/24/24 21:05 Last Admin: 09/24/24 21:13 Dose: 2 mg Documented By: JACKIE Nicardipine HCl (Nicardipine 2,000 Mcg/20 Ml Syr) Confirm Administered Dose 2,000 mcg .ROUTE .STK-MED ONE Stop: 09/24/24 21:14 Last Admin: 09/24/24 21:58 Dose: Not Given Documented By: JACKIE Nitroglycerin/Dextrose (Nitroglycerin/D5w 100mcg/Ml 20ml Syr) Confirm Administered Dose 2,000 mcg .ROUTE .STK-MED ONE Stop: 09/24/24 21:14 Last Admin: 09/24/24 21:58 Dose: Not Given Documented By: JACKIE Norepinephrine Bitartrate (Norepinephrine/D5w 4 Mg/250 Ml) Confirm Administered Dose 4 mg IV .STK-MED ONE Stop: 09/24/24 21:33 Last Admin: 09/24/24 21:38 Dose: Not Given Documented By: JACKIE Propofol (Propofol Iv Emulsion 10 Mg/Ml 100 Ml Vial) Confirm Administered Dose 1,000 mg IV .STK-MED ONE Stop: 09/24/24 21:36 Last Admin: 09/24/24 21:38 Dose: Not Given Documented By: JACKIE Imaging Data Radiologist's Impression: Head CT 09/24/24 18:51 Exam(s): CT HEAD Without Contrast EXAM: CT Head Without Intravenous Contrast CLINICAL HISTORY: Altered mental status TECHNIQUE: Axial computed tomography images of the head/brain without intravenous contrast. CTDI is 37 mGy and DLP is 702 mGy-cm. Automated exposure control was utilized for the study. A dose lowering technique was utilized adhering to the principles of ALARA. COMPARISON: No relevant prior studies available. FINDINGS: Brain: No intracranial hemorrhage, mass-effect or midline shift. No abnormal extra axial fluid. No evidence of acute infarct. 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 Ventricles: Unremarkable. No ventriculomegaly. Bones/joints: Unremarkable. No acute fracture. Soft tissues: Unremarkable. Sinuses: Unremarkable as visualized. No acute sinusitis. Mastoid air cells: Unremarkable as visualized. No mastoid effusion. IMPRESSION: No acute intracranial finding. Electronically signed by: Gardenia Zheng MD 09/25/24 01:17 AM Discharge Plan Visit Data Chief Complaint: Unresponsive ED Provider: Wilfrido Retana Discharge Problem: Sepsis, Hypotension, Hypoglycemia, Acute UTI, Acute AK, Anemia, Respiratory failure, Acidosis Patient Disposition: Admitted As Inpatient Condition: Critical Discharge Instructions Interventions: ED Discharge Assessment Last Done: 09/24/24 22:05 Discharge Problem: Sepsis Qualifiers: Sepsis type: sepsis due to unspecified organism Sepsis acute organ dysfunction status: with acute organ dysfunction Severe sepsis acute organ dysfunction type: encephalopathy Severe sepsis shock status: unspecified Qualified Code(s): A41.9 - Sepsis, unspecified organism; R65.20 - Severe sepsis without septic shock; G93.41 - Metabolic encephalopathy Hypotension Qualifiers: Hypotension type: unspecified hypotension type Qualified Code(s): I95.9 - Hypotension, unspecified Acute AK Qualifiers: Myocardial infarction type: unspecified Involved coronary artery: unspecified coronary artery Qualified Code(s): I21.9 - Acute myocardial infarction, unspecified Anemia Qualifiers: Anemia type: unspecified type Qualified Code(s): D64.9 - Anemia, unspecified Respiratory failure Qualifiers: Chronicity: acute Respiratory failure complication: hypercapnia Qualified Code(s): J96.02 - Acute respiratory failure with hypercapnia
[2024-09-24 19:29] LABS: iSTAT Art Bld Gas Base Excess 3.0 meg/L (-9-1.8)
--- NOTE | 2024-09-24 20:06 | XRay Report ---
Chest radiograph, one view History: Sepsis Comparison: 08/22/2024 Findings: Single AP view of the chest performed. No focal consolidation or pleural effusion. No pneumothorax. The lungs are emphysematous. The cardiomediastinal silhouette is within normal limits. Normal pulmonary vascularity. No evidence for lymphadenopathy. No visualized bony or soft tissue abnormality. Impression: Normal chest radiograph. The lower chest is not completely in the [id number]. Electronically signed by Meliton Blackwell 09-24-2024 8:06 PM
[2024-09-24] MEDS: CEFEPIME 2000MG 2,000 MG/20 ML SYR IV STA (20:18)
[2024-09-24] MEDS: ALBUT/IPRATROP 3MG/0.5MG NEB 3 ML VIAL NEB STA (20:22)
[2024-09-24] MEDS: SODIUM CHLORIDE 0.9% 1,000 ML IV SCH (20:22)
[2024-09-24 20:57] LABS: Hematocrit (blood only) 29.2 % (37.0-47.0); Hemoglobin 8.4 g/dl (12.0-16.0); Immature Granulocytes # (auto) 0.48 K/uL (0.01-0.20); Immature Granulocytes % (auto) 2.4 %; Mean Corpuscular Hemoglobin 27.7 pg (25.0-34.0); Mean Corpuscular Volume 96.4 fL (80.0-100.0); Platelet Count 529 K/uL (130-400); RDW Standard Deviation 62.7 fL (36.4-46.3); Red Blood Count 3.03 M/uL (4.20-5.40); White Blood Count 20.14 K/ul (4.8-10.8)
[2024-09-24] MEDS: SODIUM CHLORIDE 0.9% 500 ML IV ONE (21:04)
[2024-09-24 21:06] LABS: Anion Gap 13.0 (3-11); Blood Urea Nitrogen 33.0 mg/dl (6-23); Calcium 8.4 mg/dl (8.6-10.3); Carbon Dioxide 29.0 mmol/L (21-32); Chloride 99.0 mmol/L (98-107); Creatinine Clr Calc Pharmacy 26.7 ml/min; Glucose 186.0 mg/dl (70-99(Fasting)); Potassium 5.9 mmol/L (3.5-5.1); Sodium 141.0 mmol/L (136-145)
[2024-09-24] MEDS: MoRPHine SULFATE 2 MG/ML CARP IV STA (21:13)
[2024-09-24 21:17] LABS: INR 2.0 (0.9-1.1); Partial Thromboplastin Time 37 Seconds (21-31); Prothrombin Time 20.8 Seconds (9.0-12.0)
[2024-09-24 21:18] LABS: Appearance Urine Turbid (Clear); Bacteria Urine Automated 2+ (None Seen); Cast Urine Automated >20 /lpf (0-2); Glucose Urine UA Negative (Negative); RBC Urine Automated >20 /hpf (0-2); WBC Urine Automated >50 /hpf (0-5)
[2024-09-24 21:22] LABS: Alanine Aminotransferase 692.0 U/L (7-52); Alkaline Phosphatase 132.0 U/L (34-104); Bilirubin,Total 0.8 mg/dl (0.2-1.0); Magnesium 2.4 mg/dl (1.7-2.4); Total Protein 6.1 gm/dl (6.0-8.3)
[2024-09-24] MEDS ORDERED: PROPOFOL BOLUS FROM BAG IV PRN (21:34)
[2024-09-24] MEDS: NOREPINEPHRINE/D5W 4 MG/250 ML PLCT IV SCH (21:36)
[2024-09-24] MEDS: PROPOFOL IV EMULSION 10 MG/ML 100 ML VIAL IV ONE (21:38)
[2024-09-24] MEDS: NOREPINEPHRINE/D5W 4 MG/250 ML IV ONE (21:38)
[2024-09-24] MEDS: STAT IV Infusion **Titration per Protocol STA (21:39)
[2024-09-24] MEDS: RAPID SEQUENCE INDUCTION BAG ONE (21:57)
[2024-09-24] MEDS: NITROGLYCERIN/D5W 100MCG/ML 20ML SYR ONE (21:58)
[2024-09-24] MEDS: ATROPINE SULFATE 0.1 MG/ML 10ML SYR IV ONE (21:58)
[2024-09-24] MEDS: MIDAZOLAM HCL 1 MG/ML 2ML VIAL ONE (21:58)
[2024-09-24] MEDS: HEPARIN (PORCINE) 1000 UNIT/ML 10 ML (CATH LAB USE ONLY) ONE (21:58)
[2024-09-24] MEDS: OPTIRAY 350 ONE (21:58)
[2024-09-24] MEDS: IODIXANOL (VISIPAQUE) 320 MG/ML 100ML IV ONE (21:58)
[2024-09-24] MEDS: niCARdipine 2,000 MCG/20 ML SYR ONE (21:58)
[2024-09-24] MEDS ORDERED: STAT IV Infusion **Titration per Protocol STA (22:02)
--- NOTE | 2024-09-24 22:09 | Procedure Note ---
Procedure Note Date of Service September 24, 2024 ARTERIAL LINE PROCEDURE NOTE: Procedure: Arterial Line Placement Attending: Dr. Mark APC: Delilah Burnette PA-C Indication: Monitoring on Pressors/Frequent labs Anesthesia: Lidocaine 1% Emergency consent implied. A time-out was completed verifying correct patient, procedure, site, positioning, and implant(s) or special equipment if applicable. Allens test was performed to ensure adequate perfusion. Patients L wrist was prepped and draped in the usual sterile fashion. Ultrasound guidance was used to aid needle plac ement. A 20g Arrow arterial line was introduced into the L radial artery. Catheter was threaded, and the needle was removed with appropriate blood return. Good waveform was observed. The patient tolerated the procedure well. Blood Loss: Minimal Complications: None Coding Additional Codes Date of Service (PG.[email or web address])
[2024-09-24] MEDS: PIPERACILLIN/TAZOBACTAM 4.5 GM/100 ML BAG IV ONE (22:12)
--- NOTE | 2024-09-24 22:14 | Cardiology Consultation ---
Date of Consultation September 24, 2024 Assessment & Plan (1) Abnormal EKG: EKG essentially has diffuse ST depressions without significant reciprocal ischemic changes. Also, downsloping ST depressions in anterolateral leads. Known underlying coronary disease with prior RCA stenting and known evidence of apical LVH (definitive evaluation pending). Also with initial ultrasonic evidence of normal segmental wall motion. Taken as a whole, suspect the EKG changes are secondary to her sepsis with acidosis and hyperkalemia. She has prior history of RCA stenting for AMI and previous EKG evidence of inferior [place]. She has been on her Plavix and Eliquis so acute thrombosis of prior RCA stent is less likely. The diffuse nature of the changes also suggest a more systemic cause rather than ACS particularly with the absence of wall motion abnormalities. I do suggest her Eliquis is held and heparin started instead. We should reassess her EKG after correction of her acidosis, treatment of her sepsis, and correction of her electrolytes. We should also try to get [facility] cardiology to see her so that we can get a better assessment of what has been done with regard to her most recent stress testing/cath, findings on prior cath, cardiac MRI if completed, etc. I will also ask for an echocardiogram to better evaluate wall motion and EF. If she continues to worsen despite treatment for her sepsis and electrolyte abnormalities then we may need to at that point to proceed with catheterization. However, it is understood that given her multiple acute issues as well as her significant chronic medical issues that there may not be significant morbidity/mortality benefit to coronary angiography and/or PCI in this setting. (2) CAD (coronary artery disease), [place] coronary artery: Prior RCA stenting. Additional coronary artery disease and severity is unknown at this time. Need to obtain cath report which is presumably through [facility] system. Will have the [facility] patternmaker see the patient as they had been working up her potential apical LVH. She should remain on Plavix 75 mg daily and we will change her to heparin drip in place of Eliquis for the short term in anticipation that we may need to catheter. She can remain on her statin but with her hypotension and sepsis I would hold on metoprolol succinate, and losartan. (3) LVH (left ventricular hypertrophy) due to hypertensive disease: Not sure if this has been definitively evaluated by cardiac MRI. Will ask [facility] cardiology to investigate further for this. This certainly can cause her EKG changes and particularly if she is septic, hypotensive, and hypovolemic this could have a negative impact on her hemodynamically. (4) Sepsis: Her urinalysis has returned and is very suggestive of UTI. Treatment per critical care medicine team. (5) Atrial fibrillation with RVR: Currently not in atrial fibrillation. However, she does have propensity for A- fib with RVR given her lung disease. She will need to remain on anticoagulation although I am recommending heparin over Eliquis for the short-term. Hopefully she will not get A-fib and tachycardia as she may not tolerate this while septic. (6) Acute renal failure: BUN and in particular creatinine have increased significantly since her recent discharge. Current GFR estimated at 41 down from a more normal GFR previously. She will be receiving IV fluids. This is another reason that we would like to hold off on catheterization if possible because her risk for contrast-induced nephropathy would be significant. (7) Hyperkalemia: Her EKG findings are consistent with hyperkalemia. This will need to be corrected and we will reassess. 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 Patient follows with [facility] cardiology. She was recently admitted to this facility with urosepsis, paroxysmal atrial fibrillation with a rapid ventricular response, plus her numerous chronic medical issues including COPD requiring 3 L of nasal cannula. Evidently she was in [facility] until yesterday when she was discharged to home. She was talkative and "normal" at that time. However, today she had low energy and evidently was increasingly less responsive. EMS was reportedly called to the home and found her blood sugar to be 14. Administered dextrose and brought her to the emergency department. Initially felt to have hypoglycemia and recurrent sepsis. She was hypotensive with systolic blood pressures in the 80s. Initial EKG was reportedly unremarkable. T wave inversions anterior leads (present on prior EKG) and QT prolongation. Was to be admitted for sepsis. However, august avmehul had some chest discomfort and a second EKG demonstrated diffuse ST elevations including flat ST elevations inferiorly downsloping ST elevations throughout the precordial leads V1 to V6 with the more lateral leads being flat in morphology. For this reason I was called to see her. On my arrival patient was hypotensive, appeared in acute distress, chronically ill, frail, but did not directly answer whether or not she had chest discomfort. A sono site sonogram probe was placed on the patient's chest by myself. Imaging was suboptimal but the LV appeared to be micheal normally. The ante rior septal and inferior re[place] were certainly normal and best visualized. The short axis imaging was not as good but suggested normal contractility of the anterior and posterior segments. The lateral wall motion was not well visualized. She also appeared to have a normal micheal RV in the limited views. Some of her labs had returned and she was quite acidotic by ABG (pH 7.17), lactate was 6.6, procalcitonin was 4.5, potassium was 5.9, and she had acute renal failure. Additionally, very elevated white blood cell count. The urine was pending. She also had significant respiratory distress. Given the clear picture of sepsis with metabolic and electrolyte disturbance and in the setting of no significant wall motion abnormalities on our limited ultrasonic view decision was made to intubate the patient, treat her sepsis and metabolic/electrolyte issues and then reassess. She was not an appropriate candidate on initial evaluation to go to the [facility]. I discussed this with her daughter briefly and suggested that I would reassess and if appropriate she would be transferred to the [facility] at that time for treatment. Emergency medicine physician was in agreement and made arrangements for intubation as well as admission to the ICU. Allergies Allergy/AdvReac Type Severity Reaction Status Date / Time bee venom protein (honey bee) Allergy Severe SWELLING Verified 01/30/24 16:12 SEVERE doxycycline Allergy Intermediate Vomiting Verified 01/30/24 16:12 Home Medications Medication Instructions Recorded Confirmed Type albuterol sulfate 90 mcg/actuation 2 puff inhalation Q4H PRN 09/24/24 09/24/24 History aerosol inhaler Shortness Of Breath Or Wheezing alendronate 70 mg tablet 70 mg PO WK 09/24/24 09/24/24 History apixaban 5 mg tablet (Eliquis) 5 mg PO BID 09/24/24 09/24/24 History atorvastatin 40 mg tablet 40 mg PO DAILY 09/24/24 09/24/24 History cholecalciferol (vitamin D3) 50 50 mcg PO DAILY 09/24/24 09/24/24 History mcg (2,000 unit) capsule (Vitamin D3) citalopram 40 mg tablet 40 mg PO DAILY 09/24/24 09/24/24 History clopidogrel 75 mg tablet (Plavix) 75 mg PO DAILY 09/24/24 09/24/24 History docosahexaenoic acid (dha)-epa 120 1 cap PO DAILY 09/24/24 09/24/24 History mg-180 mg capsule (Fish Oil) fluticasone propionate 115 2 puff inhalation BID 09/24/24 09/24/24 History mcg-salmeterol 21 mcg/actuation HFA inhaler furosemide 40 mg tablet 20 mg PO DAILY 09/24/24 09/24/24 History gabapentin 300 mg capsule 300 mg PO BID 09/24/24 09/24/24 History ipratropium 0.5 mg-albuterol 3 mg 3 ml inhalation QID PRN Shortness 09/24/24 09/24/24 History (2.5 mg base)/3 mL nebulization Of Breath Or Wheezing soln levothyroxine 25 mcg tablet 25 mcg PO DAILY 09/24/24 09/24/24 History losartan 25 mg tablet 25 mg PO DAILY 09/24/24 09/24/24 History magnesium oxide 400 mg PO BID 09/24/24 09/24/24 History metoprolol succinate 50 mg 50 mg PO BID 09/24/24 09/24/24 History tablet,extended release 24 hr multivitamin 1 tab PO DAILY 09/24/24 09/24/24 History nitroglycerin 0.4 mg sublingual 0.4 mg sublingual UD 09/24/24 09/24/24 History tablet oxybutynin chloride 5 mg 5 mg PO DAILY 09/24/24 09/24/24 History tablet,extended release 24 hr oxycodone 5 mg tablet 5 mg PO Q4H PRN Pain 09/24/24 09/24/24 History pantoprazole 40 mg tablet,delayed 40 mg PO DAILY 09/24/24 09/24/24 History release (Protonix) potassium chloride 10 mEq 10 meq PO BID 09/24/24 09/24/24 History tablet,extended release (Klor-Con) tiotropium bromide 18 mcg capsule 1 cap inhalation DAILY 09/24/24 09/24/24 History with inhalation device Patient History Medical History Depression GERD (gastroesophageal reflux disease) COPD with exacerbation Dyslipidemia, goal LDL below 70 Chronic hypoxic respiratory failure 3L NC chronic CAD (coronary artery disease) 2022 - STEMI w/ RCA interventions Anemia COPD (chronic obstructive pulmonary disease) PAF (paroxysmal atrial fibrillation) HTN (hypertension) Myocardial infarction due to demand ischemia Non-ST elevation [place] (NSTEMI) Macular degeneration Tobacco use disorder Atrial fibrillation Diabetes Surgical History S/P ORIF (open reduction internal fixation) fracture H/O skin graft History of tonsillectomy H/O heart surgery History of cholecystectomy Hx of tubal ligation Social History Smoking Status: Unknown if ever smoked Tobacco Type: Cigarettes Cigarettes Per Day: 5; Second Hand Exposure: No; Do You Dip or Chew Tobacco: No; Hx Alcohol Use: No Hx Substance Use: No Preferred Language: Wallisian Communication Ability: Effective Aesthetician Required: No Beliefs That Will Affect Care: None Current Living Situation: Family Current Living Situation Comment: with daughter Feels Safe at Home: Yes Assistive Devices: Nebulizer, Oxygen - Continuous, Walker and Wheelchair Review of Systems Review of Systems: Unobtainable except as per HPI Physical Exam Constitutional: Acutely on chronically ill. Respiratory distress. Frail. Neck: No JVD Respiratory: Ventilator sounds. Diminished air movement. Diffuse crackles. Cardiovascular: Tachycardic, regular. No murmur. No edema. Neurologic: Intubated and sedated. Psychiatric: Cannot assess. Agitated prior to intubation. Results & Data Vital Signs (Past 12 Hours) Vital Signs Temp Pulse Pulse Resp BP BP Pulse Ox 09/24/24 21:57 63 27 H 184/99 H 09/24/24 21:12 69 25 H 94 09/24/24 21:03 66 16 09/24/24 20:51 65 22 98 09/24/24 20:46 65 09/24/24 20:24 63 30 H 91 09/24/24 20:18 97 H 33 H 108/59 L 93 09/24/24 20:10 31 H 114/66 09/24/24 20:06 31 H 90 09/24/24 19:54 33 H 84 L 09/24/24 19:42 81 32 H 88 L 09/24/24 19:31 81 32 H 110/75 90 09/24/24 19:30 37 H 81 L 09/24/24 19:24 75 26 H 135/68 100 09/24/24 19:24 135/68 09/24/24 19:20 104 H 36 H 91 09/24/24 19:06 73 33 H 100 09/24/24 18:57 74 27 H 100 09/24/24 18:48 74 36 H 123/84 100 09/24/24 18:48 73 09/24/24 18:43 36.6 C 74 35 H 106/87 100 09/24/24 18:43 87 L 09/24/24 18:43 32 H 106/87 100 O2 Del Method O2 Flow Rate FiO2 09/24/24 21:57 Mechanical Vent 09/24/24 21:12 09/24/24 21:03 09/24/24 20:51 09/24/24 20:46 09/24/24 20:24 09/24/24 20:18 09/24/24 20:10 09/24/24 20:06 09/24/24 19:54 09/24/24 19:42 09/24/24 19:31 BiPAP 09/24/24 19:30 09/24/24 19:24 09/24/24 19:24 09/24/24 19:20 24 09/24/24 19:06 Non-rebreather 8 09/24/24 18:57 09/24/24 18:48 09/24/24 18:48 09/24/24 18:43 Non-rebreather 8 09/24/24 18:43 Non-rebreather 2 09/24/24 18:43 Non-rebreather 8 PG Care Time/CCT Total # of Minutes Spent Total Time Spent with Patient: Total time spent is greater than 50% in coordination of care (as documented) at patient's floor/unit and/or counseling patient: I spent a total of 130 minutes critical care time in the initial examination, evaluation, review of medical records, discussion with family, discussion with emergency medicine team, discussion with critical care team and the hospitalist, ultrasonic evaluation, formulation and implementation of the plan of care and all associated documentation. This time also includes the reassessment after the patient was transferred to the ICU. Coding Level of Care Code 62598 CRITICAL CARE 1ST 30-74M Diagnoses Abnormal EKG R94.31 CAD (coronary artery disease), [place] coronary artery I25.10 LVH (left ventricular hypertrophy) due to hypertensive disease I11.9 Sepsis A41.9; R65.20; J96.01 Acute respiratory failure type: with hypoxia Sepsis acute organ dysfunction status: with acute organ dysfunction Sepsis type: sepsis due to unspecified organism Severe sepsis acute organ dysfunction type: acute respiratory failure Severe sepsis shock status: without septic shock Atrial fibrillation with RVR I48.91 Acute renal failure N17.9 Hyperkalemia E87.5 Time Spent (min) 130 (4) Sepsis Acute respiratory failure type: with hypoxia Sepsis acute organ dysfunction status: with acute organ dysfunction Sepsis type: sepsis due to unspecified organism Severe sepsis acute organ dysfunction type: acute respiratory failure Severe sepsis shock status: without septic shock Qualified Code(s): A41.9 - Sepsis, unspecified organism; R65.20 - Severe sepsis without septic shock; J96.01 - Acute respiratory failure with hypoxia
[2024-09-24 22:15] LABS: iSTAT Art Bld Gas Base Excess -5.0 meg/L (-9-1.8)
[2024-09-24] MEDS ORDERED: Heparin IV Adult Wt-Based Low-Dose *NO* INITIAL Bolus Protocol IV STA (22:50)
[2024-09-24] MEDS ORDERED: SODIUM CHLORIDE 0.9% 1,000 ML IV SCH (23:05)
[2024-09-24] MEDS ORDERED: VANCOMYCIN CONSULT ACTIVE PRN (23:05)
[2024-09-24] MEDS ORDERED: HEPARIN 25000 UNIT/500 ML D5W 25,000 UNITS/500 ML BAG IV SCH (23:15)
--- NOTE | 2024-09-24 23:16 | Critical Care Consultation ---
Date of Consultation September 24, 2024 Assessment & Plan (1) Hyperkalemia: (2) CAD (coronary artery disease), [place] coronary artery: (3) Abnormal EKG: (4) Severe sepsis: (5) Anticoagulant long-term use: (6) Urinary tract infection: (7) Acute and chronic respiratory failure: Plan Reason Critically Ill: 1. Severe sepsis 2. Acute on chronic combined respiratory failure 3. GUTIERREZ on CKD 4. Urinary tract infection with chronic lord 5. Shock liver 6. Lactic acidosis 7. Respiratory acidosis, resolved 8. Protein calorie malnutrition 9. Failure to thrive Neuro - [facility] ICU: Unable to assess RASS GOAL 0 to -1 Propofol/Fentanyl gtt Hold Gabapentin, Alendronate Cardiac - STEMI on EKG, resolved. Likely type II demand ischemia i/s/o severe sepsis and dehydration with pre-existing CAD No plan for collaborative physician per Dr. Talavera. Consult Cardiology, appreciate continued recommendations Eliquis, Plavix held MAP goal > 65mmHg Hold statin with LFTs Low-dose heparin infusion, held for now with rectal bleeding Recheck coags in AM POCUS on arrival to ICU Respiratory - Daily SAT/SBT SpO2 goal 88-92% DuoNeb scheduled, Albuterol PRN HOB 30, pulmonary hygiene GI - Rectal bleeding appears hemorrhoidal. Appears to have large burden stool on CT AP Diet: NPO except meds via OGT SUP: H2B Bowel regimen: Miralax, Senna, Colace Trend LFTs RENAL/LYTES - Continued IVF as guided by POCUS Trend electrolytes Lord for accurate I/Os D5LR gtt ENDO - BG 140-180 per SCCM guidelines ISS if needed while inpatient Levoxyl HEME - DOAC and antiplatelets held Start heparin infusion as clinically feasible Trend coags ID - Continue cefepime/vancomycin, de-escalate as guided by culture data UTI in August 2024 susceptible to cefepime BC x2 pending, MRSA nares pending, procalcitonin elevated, UA + LINES/TUBES/DRAINS - R femoral CVC (Day #1) L radial arterial line (Day #1) Lord (Day #1) ETT (Day #1) OGT (Day #1) DVT PROPHYLAXIS - Held, start heparin infusion as able I have personally spent 52 minutes of critical care time in the direct management of this patient. This is a life/limb threatening event. This includes time spent evaluating patient, direct bedside care, chart review, placing orders, interpretation of diagnostic studies, discussion with consultants, patient, and family members, as well as other required patient management activities. This time is exclusive of all separately billable procedures, and teaching time and separate from and in addition to any other critical care service time. Thank you for allowing us to participate in the care of this patient. Please refer to my attending physician's documentation for any further recommendations. History of Present Illness Reason for Consultation: Septic shock Requesting Physician: Mazin Attending Physician: Gabriel Ponce DO History of Present Illness Ms. Kae Johnston is a 74YOF with a history of COPD on 3L NC, tobacco use disorder, HTN/HLD, CAD with inferior STEMI 2022, paroxysmal AF, hypothyroidism who presented to [facility] ED from home on 09/24/2024 due to unresponsiveness. Per report, patient was recently discharged home from [facility] after being hospitalized for urosepsis. She was unresponsive much of the day. Upon EMS arrival the patient was noted to have a BG of 14 and SBP 80s. She received 25g IV dextrose with improvement. Normotensive on arrival to ED. Received 2L IVF per sepsis protocol. Cefepime and Vancomycin given. 12-lead EKG showed STEMI. Heart Alert activated. Dr. Talavera to bedside. crime lab analyst was not pursued as ST changes attributed to severe sepsis. POCUS performed by Dr. Talavera without signs of focal WMA to indicate ACS. FILEMON resolved with return to NSR. Patient was intubated for airway protection in ED. Labs revealed leukocytosis with neutrophil predominance, elevated INR and aPTT, respiratory acidosis with pH 7.17, K 5.9, GUTIERREZ, [place] 6.6, significantly elevated liver enzymes, + UA, elevated procalcitonin. CTH negative for acute intracranial abnormality. CT A/P pending on admission given recent ureteral stent placement. Admitted to ICU for continuation of care. Patient seen in ED A03. She is intubated and sedated. Arterial line placed emergently due to inability to obtain non-invasive BP. Propofol and fentanyl initiated. Chronic lord in place, this catheter was exchanged. Bleeding from rectum noted, appears hemorrhoidal. ROS unable to be elicited due to intubation. Allergies Allergy/AdvReac Type Severity Reaction Status Date / Time bee venom protein (honey bee) Allergy Severe SWELLING Verified 01/30/24 16:12 SEVERE doxycycline Allergy Intermediate Vomiting Verified 01/30/24 16:12 Home Medications Medication Instructions Recorded Confirmed Type albuterol sulfate 90 mcg/actuation 2 puff inhalation Q4H PRN 09/24/24 09/24/24 History aerosol inhaler Shortness Of Breath Or Wheezing alendronate 70 mg tablet 70 mg PO WK 09/24/24 09/24/24 History apixaban 5 mg tablet (Eliquis) 5 mg PO BID 09/24/24 09/24/24 History atorvastatin 40 mg tablet 40 mg PO DAILY 09/24/24 09/24/24 History cholecalciferol (vitamin D3) 50 50 mcg PO DAILY 09/24/24 09/24/24 History mcg (2,000 unit) capsule (Vitamin D3) citalopram 40 mg tablet 40 mg PO DAILY 09/24/24 09/24/24 History clopidogrel 75 mg tablet (Plavix) 75 mg PO DAILY 09/24/24 09/24/24 History docosahexaenoic acid (dha)-epa 120 1 cap PO DAILY 09/24/24 09/24/24 History mg-180 mg capsule (Fish Oil) fluticasone propionate 115 2 puff inhalation BID 09/24/24 09/24/24 History mcg-salmeterol 21 mcg/actuation HFA inhaler furosemide 40 mg tablet 20 mg PO DAILY 09/24/24 09/24/24 History gabapentin 300 mg capsule 300 mg PO BID 09/24/24 09/24/24 History ipratropium 0.5 mg-albuterol 3 mg 3 ml inhalation QID PRN Shortness 09/24/24 09/24/24 History (2.5 mg base)/3 mL nebulization Of Breath Or Wheezing soln levothyroxine 25 mcg tablet 25 mcg PO DAILY 09/24/24 09/24/24 History losartan 25 mg tablet 25 mg PO DAILY 09/24/24 09/24/24 History magnesium oxide 400 mg PO BID 09/24/24 09/24/24 History metoprolol succinate 50 mg 50 mg PO BID 09/24/24 09/24/24 History tablet,extended release 24 hr multivitamin 1 tab PO DAILY 09/24/24 09/24/24 History nitroglycerin 0.4 mg sublingual 0.4 mg sublingual UD 09/24/24 09/24/24 History tablet oxybutynin chloride 5 mg 5 mg PO DAILY 09/24/24 09/24/24 History tablet,extended release 24 hr oxycodone 5 mg tablet 5 mg PO Q4H PRN Pain 09/24/24 09/24/24 History pantoprazole 40 mg tablet,delayed 40 mg PO DAILY 09/24/24 09/24/24 History release (Protonix) potassium chloride 10 mEq 10 meq PO BID 09/24/24 09/24/24 History tablet,extended release (Klor-Con) tiotropium bromide 18 mcg capsule 1 cap inhalation DAILY 09/24/24 09/24/24 History with inhalation device Patient History Medical History Depression GERD (gastroesophageal reflux disease) COPD with exacerbation Dyslipidemia, goal LDL below 70 Chronic hypoxic respiratory failure 3L NC chronic CAD (coronary artery disease) 2022 - STEMI w/ RCA interventions Anemia COPD (chronic obstructive pulmonary disease) PAF (paroxysmal atrial fibrillation) HTN (hypertension) Myocardial infarction due to demand ischemia Non-ST elevation RI (NSTEMI) Macular degeneration Tobacco use disorder Atrial fibrillation Diabetes Surgical History S/P ORIF (open reduction internal fixation) fracture H/O skin graft History of tonsillectomy H/O heart surgery History of cholecystectomy Hx of tubal ligation Social History Smoking Status: Unknown if ever smoked Tobacco Type: Cigarettes Cigarettes Per Day: 5; Second Hand Exposure: No; Do You Dip or Chew Tobacco: No; Hx Alcohol Use: No Hx Substance Use: No Preferred Language: Occitan Communication Ability: Effective Dough Panner Required: No Beliefs That Will Affect Care: None Current Living Situation: Family Current Living Situation Comment: with daughter Feels Safe at Home: Yes Assistive Devices: Nebulizer, Oxygen - Continuous, Walker and Wheelchair Review of Systems Review of Systems: Unobtainable due to endotracheal tube Physical Exam Constitutional: + ill appearing, + thin, + frail appeari ng and + disheveled Bed bugs found Eyes: PERRL, conjunctivae normal, anicteric sclerae ENMT: Bloody mucosa Neck: trachea midline, no thyromegaly Respiratory: symmetric chest movement Auscultation: + diminished lung sounds; no crackles, no rales and no wheezes Cardiovascular: Rate/Rhythm: regular rate and regular rhythm Heart Sounds: no murmur Vessels: no JVD and no carotid bruit Extremities: normal capillary refill; no edema Gastrointestinal (Abdomen): normal bowel sounds, soft, nontender, no hepatosplenomegaly Musculoskeletal: Muscle wasting Skin: Scattered ecchymosis and small lesions. Hematoma at site of IV attempt. Neurologic: Unresponsive Genitourinary: Lord exchange draining dark, sedimented urine Results & Data Results & Data Vital Signs (Past 12 Hours) Vital Signs Temp Pulse Pulse Resp BP BP Pulse Ox 09/24/24 22:05 61 27 H 187/95 H 62 L 09/24/24 21:57 63 27 H 184/99 H 09/24/24 21:54 65 20 97 09/24/24 21:21 68 21 09/24/24 21:12 69 25 H 94 09/24/24 21:03 66 16 09/24/24 20:51 65 22 98 09/24/24 20:46 65 09/24/24 20:24 63 30 H 91 09/24/24 20:18 97 H 33 H 108/59 L 93 09/24/24 20:10 31 H 114/66 09/24/24 20:06 31 H 90 09/24/24 19:54 33 H 84 L 09/24/24 19:42 81 32 H 88 L 09/24/24 19:31 81 32 H 110/75 90 09/24/24 19:30 37 H 81 L 09/24/24 19:24 75 26 H 135/68 100 09/24/24 19:24 135/68 09/24/24 19:20 104 H 36 H 91 09/24/24 19:06 73 33 H 100 09/24/24 18:57 74 27 H 100 09/24/24 18:48 74 36 H 123/84 100 09/24/24 18:48 73 09/24/24 18:43 36.6 C 74 35 H 106/87 100 09/24/24 18:43 87 L 09/24/24 18:43 32 H 106/87 100 O2 Del Method O2 Flow Rate FiO2 09/24/24 22:05 Mechanical Vent 09/24/24 21:57 Mechanical Vent 09/24/24 21:54 Mechanical Vent 50 09/24/24 21:21 09/24/24 21:12 09/24/24 21:03 09/24/24 20:51 09/24/24 20:46 09/24/24 20:24 09/24/24 20:18 09/24/24 20:10 09/24/24 20:06 09/24/24 19:54 09/24/24 19:42 09/24/24 19:31 BiPAP 09/24/24 19:30 09/24/24 19:24 09/24/24 19:24 09/24/24 19:20 24 09/24/24 19:06 Non-rebreather 8 09/24/24 18:57 09/24/24 18:48 09/24/24 18:48 09/24/24 18:43 Non-rebreather 8 09/24/24 18:43 Non-rebreather 2 09/24/24 18:43 Non-rebreather 8 Laboratory Results Reviewed Diagnostic Findings Reviewed Medications Administered See MAR [facility] Procedure Codes (Charges) Aterial Pressure Waveform Analysis Arterial Pressure Waveform: 56929 Arterial Pressure Waveform Analysis Ventilator Management Ventilator Managment: 51756 Ventilation assist and management; Hospital inpt/obs, intl day Coding Level of Care Code 65588 IN/OBS CONSULT LVL 3,45M Diagnoses Hyperkalemia E87.5 CAD (coronary artery disease), [place] coronary artery I25.10 Abnormal EKG R94.31 Severe sepsis A41.9; R65.20 Anticoagulant long-term use Z79.01 Urinary tract infection N39.0 Acute and chronic respiratory failure J96.20 CPT Codes Aterial Pressure Waveform Analysis - Arterial Pressure Waveform: 63597 Arterial Pressure Waveform Analysis ([id number]) Ventilator Management - Ventilator Managment: 12174 Ventilation assist and management; Hospital inpt/obs, intl day ([id number]) Time Spent (min) 52
[2024-09-24 23:20] LABS: Anion Gap 14.0 (3-11); Blood Urea Nitrogen 35.0 mg/dl (6-23); Calcium 7.6 mg/dl (8.6-10.3); Carbon Dioxide 22.0 mmol/L (21-32); Chloride 105.0 mmol/L (98-107); Creatinine Clr Calc Pharmacy 31.9 ml/min; Glucose 183.0 mg/dl (70-99(Fasting)); Potassium 5.4 mmol/L (3.5-5.1); Sodium 141.0 mmol/L (136-145)
[2024-09-24] MEDS ORDERED: ALBUTEROL 0.083% NEBU SOLN 3 ML VIAL NEB PRN (23:22)
[2024-09-24] MEDS: fentaNYL citrate 2,500 MCG/250 ML BAG IV SCH (23:22)
[2024-09-24] MEDS: D5W AND LACTATED RINGERS 1,000 ML IV SCH (23:23)
--- NOTE | 2024-09-24 23:24 | XRay Report ---
Exam(s): XR CXR 1 VIEW EXAM: XR Chest, 1 View CLINICAL HISTORY: Reason for exam: intubation. TECHNIQUE: Frontal view of the chest. COMPARISON: X-ray chest: 09/24/2024 and 1925 hrs. FINDINGS: A suboptimally placed endotracheal tube seen with the tip abutting the right main bronchus. This needs to be retracted by pulling at least 3 cm. Lungs: Hyperinflated lungs/COPD bilateral perihilar mildly increased interstitial markings seen in both lung vazquez, more in the left lower lobe.. No consolidation. Pleural space: No pleural effusion. No pneumothorax. Heart: Atherosclerotic tortuosity of the aortic arch. No cardiomegaly. Mediastinum: Normal mediastinal contour. Bones/joints: Osteopenia.. No acute fracture. Possibly rotator cuff pathology. A small metallic anchor clip present laterally over the right humeral head.. IMPRESSION: A suboptimally placed endotracheal tube with the tip proximally at the right main bronchus. This needs to be retracted prior to its use. No consolidation, pulmonary vascular congestion or pleural effusion seen in the visualized lungs. . Electronically signed by: Kayden Salcedo MD, BERE 09/24/24 23:23 PM
[2024-09-24] MEDS: VANCOMYCIN HCL 1,000 MG/270 ML BAG IV ONE (23:28)
--- NOTE | 2024-09-25 00:42 | XRay Report ---
Exam(s): XR CXR 1 VIEW EXAM: XR Chest, 1 View CLINICAL HISTORY: Reason for exam: ETT and OGT. TECHNIQUE: Frontal view of the chest. COMPARISON: X-ray chest: 09/24/2024 at 2135 hrs. FINDINGS: Again noted the tip of the endotracheal tube is abutting most proximally the right main bronchus. A NG tube tip is seen in topography of the gastric fundus. Lungs: Hyperinflated lungs. Bilateral bronchial wall thickening. No consolidation. Pleural space: No pleural effusion. No pneumothorax. Heart: No cardiomegaly. Mediastinum: Significant atherosclerotic tortuosity of the thoracic aorta. Normal mediastinal contour. Bones/joints: Osteopenia. No acute fracture. IMPRESSION: An adequately placed NG tube. Again noted a suboptimally placed endotracheal tube. . Electronically signed by: Kayden Salcedo MD, BERE 09/25/24 00:41 AM
[2024-09-25] MEDS: LACTATED RINGER'S 1,000 ML IV SCH (00:46)
[2024-09-25] MEDS ORDERED: GLUCOSE 10 TAB/TUBE PO PRN (01:00)
[2024-09-25] MEDS ORDERED: GLUCOSE 40% GEL 15 GM TUBE PO PRN (01:00)
[2024-09-25] MEDS ORDERED: CARBOHYDRATES FOR HYPOGLYCEMIA PO PRN (01:00)
[2024-09-25] MEDS ORDERED: GLUCAGON FOR INJ 1 MG VIAL SQ PRN (01:00)
[2024-09-25] MEDS ORDERED: DEXTROSE 50% 50 ML SYRINGE IV PRN (01:00)
[2024-09-25] MEDS: INSULIN ASPART PER UNIT CHARGE SC STA (01:13)
[2024-09-25] MEDS: FAMOTIDINE 20MG IV PUSH 20 MG/5 ML SYR IV SCH (01:14)
--- NOTE | 2024-09-25 01:18 | CT Scan Report ---
Exam(s): CT HEAD Without Contrast EXAM: CT Head Without Intravenous Contrast CLINICAL HISTORY: Altered mental status TECHNIQUE: Axial computed tomography images of the head/brain without intravenous contrast. CTDI is 37 mGy and DLP is 702 mGy-cm. Automated exposure control was utilized for the study. A dose lowering technique was utilized adhering to the principles of ALARA. COMPARISON: No relevant prior studies available. FINDINGS: Brain: No intracranial hemorrhage, mass-effect or midline shift. No abnormal extra axial fluid. No evidence of acute infarct. 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 Ventricles: Unremarkable. No ventriculomegaly. Bones/joints: Unremarkable. No acute fracture. Soft tissues: Unremarkable. Sinuses: Unremarkable as visualized. No acute sinusitis. Mastoid air cells: Unremarkable as visualized. No mastoid effusion. IMPRESSION: No acute intracranial finding. Electronically signed by: Gardenia Zheng MD 09/25/24 01:17 AM
--- NOTE | 2024-09-25 01:25 | CT Scan Report ---
Exam(s): CT ABDOMEN + PELVIS Without Contrast EXAM: CT Abdomen and Pelvis Without Intravenous Contrast CLINICAL HISTORY: Ureteral stent, septic shock. TECHNIQUE: Axial computed tomography images of the abdomen and pelvis without intravenous contrast. CTDI is 37 mGy and DLP is 702 mGy-cm. Automated exposure control was utilized for the study. A dose lowering technique was utilized adhering to the principles of ALARA. COMPARISON: No relevant prior studies available. FINDINGS: Lung bases: Unremarkable. No mass. No consolidation. ABDOMEN: Liver: Unremarkable. Gallbladder and bile ducts: Unremarkable. No calcified stones. No ductal dilation. Pancreas: Unremarkable. No ductal dilation. Spleen: Unremarkable. No splenomegaly. Adrenals: Unremarkable. No mass. Kidneys and ureters: Minimal right hydronephrosis with a ureteral stent in good position. Left kidney is unremarkable. Stomach and bowel: The rectum is fluid-filled. There is prominence of the wall throughout the colon. No obstruction. No mucosal thickening. PELVIS: Appendix: No findings to suggest acute appendicitis. Bladder: Thickening of the urinary bladder wall could relate to nondistention or cystitis. A Helms catheter is present. No stones. Reproductive: Unremarkable as visualized. ABDOMEN and PELVIS: Intraperitoneal space: Unremarkable. No free air. No significant fluid collection. Bones/joints: Age-indeterminate severe compression fracture of T11. No dislocation. Soft tissues: Unremarkable. Vasculature: Abdominal aortic aneurysm measuring 3.1 cm in maximum diameter. Lymph nodes: Unremarkable. No enlarged lymph nodes. Tubes, lines and devices: The NG tube side port is at the gastroesophageal junction. IMPRESSION: 1. Minimal right hydronephrosis with a ureteral stent in good position. 2. Thickening of the urinary bladder wall could relate to nondistention or cystitis. 3. The rectum is fluid-filled. Question diarrheal state. 4. There is prominence of the wall throughout the colon. This is likely infectious or inflammatory. 5. Abdominal aortic aneurysm measuring 3.1 cm in maximum diameter. Recommend abdomen/pelvis CT or MR imaging follow-up in 3 years. 6. Age-indeterminate severe compression fracture of T11. 7. The NG tube side port is at the gastroesophageal junction. Advancement is recommended. Electronically signed by: Gardenia Zheng MD 09/25/24 01:24 AM
[2024-09-25] MEDS: ALBUT/IPRATROP 3MG/0.5MG NEB 3 ML VIAL NEB SCH (01:50)
[2024-09-25] MEDS ORDERED: STAT IV Infusion **Titration per Protocol STA ×3 (02:02→21:58)
[2024-09-25] MEDS: VASOPRESSIN 20 UNITS in SODIUM CHLORIDE 0.9% 100 ML IV SCH ×2 (02:32→16:02)
[2024-09-25] MEDS: LACTATED RINGER'S 500 ML IV ONE (02:33)
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
[2024-09-25 03:01] LABS: Alkaline Phosphatase 103.0 U/L (34-104); Anion Gap 13.0 (3-11); Bilirubin,Total 0.5 mg/dl (0.2-1.0); Blood Urea Nitrogen 36.0 mg/dl (6-23); Calcium 7.4 mg/dl (8.6-10.3); Carbon Dioxide 23.0 mmol/L (21-32); Chloride 106.0 mmol/L (98-107); Creatinine Clr Calc Pharmacy 34.7 ml/min; Glucose 201.0 mg/dl (70-99(Fasting)); Magnesium 2.1 mg/dl (1.7-2.4); Potassium 5.0 mmol/L (3.5-5.1); Sodium 142.0 mmol/L (136-145); Total Protein 4.7 gm/dl (6.0-8.3)
[2024-09-25 03:03] LABS: Hematocrit (blood only) 22.3 % (37.0-47.0); Hemoglobin 6.5 g/dl (12.0-16.0); Mean Corpuscular Hemoglobin 27.1 pg (25.0-34.0); Mean Corpuscular Volume 92.9 fL (80.0-100.0); Platelet Count 435 K/uL (130-400); RDW Standard Deviation 60.8 fL (36.4-46.3); Red Blood Count 2.40 M/uL (4.20-5.40); White Blood Count 22.07 K/ul (4.8-10.8)
[2024-09-25] MEDS ORDERED: SODIUM CHLORIDE 0.9% 100 ML IV PRN ×3 (03:09→15:40)
[2024-09-25] MEDS ORDERED: STAT IV/IM STA (03:18)
[2024-09-25 03:21] LABS: iSTAT Art Bld Gas Base Excess -6.0 meg/L (-9-1.8); iSTAT Art Bld Gas pCO2 Correct 40 mmHg (35-46); iSTAT Art Bld Gas pH Corrected 7.314 (7.35-7.45); iSTAT Arterial Blood Gas pO2 C 80
[2024-09-25 03:30] LABS: Alanine Aminotransferase 1391.0 U/L (7-52)
--- NOTE | 2024-09-25 03:31 | Communication Note ---
Date of Service: September 25, 2024 Rectal bleeding is now continuous. We did not ever start heparin. HGB 6.5 from 8.4 at 2017 last night. Type and screen pending. Transfuse 1U PRBC stat. Kcentra to be given. We do not have reversal agent in house. Will obtain STAT CT AP with contrast to evaluate LGIB. GI consult, will contact them with CT result or if bleeding worsens. Coding Level of Care Code None
[2024-09-25 03:42] LABS: Immature Granulocytes # (auto) 0.77 K/uL (0.01-0.20); Immature Granulocytes % (auto) 3.5 %; Polychromasia 1+
[2024-09-25] MEDS: PROTHROMBIN COMP CONC- KCENTRA 2,000 UNITS in SYRINGE 0 ML IV ONE (04:04)
[2024-09-25 04:08] LABS: INR 2.1 (0.9-1.1); Partial Thromboplastin Time 34 Seconds (21-31); Prothrombin Time 21.4 Seconds (9.0-12.0)
[2024-09-25 04:17] LABS: Fibrinogen 393 mg/dl (184-400)
[2024-09-25] MEDS: OPTIRAY 320 125ml IV ONE (04:43)
[2024-09-25 04:57] LABS: ANTI-Xa, UFH(UnfractionatedHep > 1.50 IU/ml (0.3-0.7)
[2024-09-25] MEDS: PHYTONADIONE 10 MG in DEXTROSE 5% 50 ML IV ONE (05:02)
--- NOTE | 2024-09-25 05:36 | CT Scan Report ---
EXAM: CT angio abd pelvis wo/w con CLINICAL HISTORY: Lower gastrointestinal bleed, shock TECHNIQUE: Contrast enhanced thin slice CT angiography scan of the abdominal aorta was performed with intravenous contrast. Angiographic images were processed, 3D MIP images were acquired for interpretation. Contiguous axial images were obtained. Reformatted coronal and sagittal images were also reviewed. If IV contrast material had not been administered, the likelihood of detecting abnormalities relevant to the patients condition would have been substantially decreased. CT scan was performed according to ALARA (as low as reasonable achievable). COMPARISON: CT dated 07/08/2024 21:50:23 TOW PICKER. FINDINGS: Rectum is distended with mildly hyperdense material. On arterial phase images, few foci of hyperdensity are seen in the right lower lateral wall of the rectum; not previously seen on plain images. Right kidney shows a simple cortical cyst measuring 31mm in interpolar region. Stent is seen in the right ureter with proximal end in right renal pelvis and distal end in the urinary bladder. Urinary bladder is empty and shows Helms's catheter bulb in situ. Nasogastric tube is seen in situ with its tip in the body of stomach. Atherosclerotic wall thickening and calcification is seen in the aorta and its major branches. Abdominal aorta is normal in course, calibre and opacification. Fusiform dilatation of infra-renal abdominal aorta of diameter 3.2cm, for a length of 3.4cm. Origin of coeliac artery, superior mesenteric artery , bilateral main renal and lumbar arteries are normal with no hemodynamically significant ostial stenosis noted. Bilateral common, external and internal iliac arteries are normal in course, caliber and opacification. Solid abdominal organs including liver, spleen and pancreas reveal no significant abnormality. Bowel loops are otherwise grossly unremarkable. No evidence of ascites. IMPRESSION: 1. Distended rectum with hyperdense material in the lumen and focal arterial phase hyperdensity in right lateral lower rectal wall suggesting active arterial leak. 2. Right renal simple cortical cyst - persistent. 3. Right ureteric stent. Previously identified right hydroureteronephrosis is not seen in this evaluation. 4. Persistent fusiform dilatation of infra-renal abdominal aorta of diameter 3.2cm, for a length of 3.4cm. Electronically signed by Mervin Stewart 09-25-2024 05:35 AM
--- NOTE | 2024-09-25 07:51 | Ultrasound Report ---
EXAM: US liver CLINICAL HISTORY: Shock, liver TECHNIQUE: Ultrasound examination of the RUQ was performed in real-time. COMPARISON: CT study done earlier, 09/25/2024 FINDINGS: Liver: Liver size: 12.9cm. Liver appears normal in size, with coarse echotexture and periportal tract thickening No evidence of focal lesions, cysts, or masses. Hepatic vasculature appears normal. Gallbladder: surgically removed Biliary Tree: Common bile duct diameter: 5mm. The common bile duct is within normal limits in caliber and not dilated. No evidence of choledocholithiasis or biliary obstruction. Right Kidney: Not fully seen due to overlying bowel gas, and the patient is unable to hold breath/decubitus. Increased renal parenchymal echogenicity Two cortical cysts, the largest measures 2.4x2.4x1.7cm, the smaller one measures about 0.9x0.6x0.7 cm Pancreas: head and body appear unremarkable. The tail is not visualized due to bowel gases IMPRESSION: 1. Heterogeneous liver parenchyma with periportal tract thickening could suggest chronic parenchymal liver disease 2. Echogenic grade I renal parenchyma could suggest chronic medical renal disease 3. Two right renal cortical cysts. 4. No interval changes. RECOMMENDATIONS: Clinical correlation with symptoms and further evaluation, including liver function and renal function tests as indicated. Electronically signed by Fred Cerda 09-25-2024 07:51 AM
--- NOTE | 2024-09-25 07:56 | Gastrointestinal Consultation ---
Date of Consultation September 25, 2024 Assessment & Plan (1) Rectal bleeding: Limited information but patient admitted with urosepsis, hypotension requiring pressors and "active rectal bleeding". Flex sig planned. Emergent consent performed as family unobtainable. Dr. Mark and I signed consent along with nursing staff. History of Present Illness Reason for Consultation: rectal bleeding Attending Physician: Gabriel Ponce DO History of Present Illness Called to see patient emergently for rectal bleeding and hgb 6. Patient admitted with sepsis and became hypotensive requiring pressure support. CTA suggests "arterial bleeding in rectum". No further history obtained as patient sedated and intubated. Patient is on plavix and eliquis Allergies Allergy/AdvReac Type Severity Reaction Status Date / Time bee venom protein (honey bee) Allergy Severe SWELLING Verified 01/30/24 16:12 SEVERE doxycycline Allergy Intermediate Vomiting Verified 01/30/24 16:12 Home Medications Medication Instructions Recorded Confirmed Type albuterol sulfate 90 mcg/actuation 2 puff inhalation Q4H PRN 09/24/24 09/24/24 History aerosol inhaler Shortness Of Breath Or Wheezing alendronate 70 mg tablet 70 mg PO WK 09/24/24 09/24/24 History apixaban 5 mg tablet (Eliquis) 5 mg PO BID 09/24/24 09/24/24 History atorvastatin 40 mg tablet 40 mg PO DAILY 09/24/24 09/24/24 History cholecalciferol (vitamin D3) 50 50 mcg PO DAILY 09/24/24 09/24/24 History mcg (2,000 unit) capsule (Vitamin D3) citalopram 40 mg tablet 40 mg PO DAILY 09/24/24 09/24/24 History clopidogrel 75 mg tablet (Plavix) 75 mg PO DAILY 09/24/24 09/24/24 History docosahexaenoic acid (dha)-epa 120 1 cap PO DAILY 09/24/24 09/24/24 History mg-180 mg capsule (Fish Oil) fluticasone propionate 115 2 puff inhalation BID 09/24/24 09/24/24 History mcg-salmeterol 21 mcg/actuation HFA inhaler furosemide 40 mg tablet 20 mg PO DAILY 09/24/24 09/24/24 History gabapentin 300 mg capsule 300 mg PO BID 09/24/24 09/24/24 History ipratropium 0.5 mg-albuterol 3 mg 3 ml inhalation QID PRN Shortness 09/24/24 09/24/24 History (2.5 mg base)/3 mL nebulization Of Breath Or Wheezing soln levothyroxine 25 mcg tablet 25 mcg PO DAILY 09/24/24 09/24/24 History losartan 25 mg tablet 25 mg PO DAILY 09/24/24 09/24/24 History magnesium oxide 400 mg PO BID 09/24/24 09/24/24 History metoprolol succinate 50 mg 50 mg PO BID 09/24/24 09/24/24 History tablet,extended release 24 hr multivitamin 1 tab PO DAILY 09/24/24 09/24/24 History nitroglycerin 0.4 mg sublingual 0.4 mg sublingual UD 09/24/24 09/24/24 History tablet oxybutynin chloride 5 mg 5 mg PO DAILY 09/24/24 09/24/24 History tablet,extended release 24 hr oxycodone 5 mg tablet 5 mg PO Q4H PRN Pain 09/24/24 09/24/24 History pantoprazole 40 mg tablet,delayed 40 mg PO DAILY 09/24/24 09/24/24 History release (Protonix) potassium chloride 10 mEq 10 meq PO BID 09/24/24 09/24/24 History tablet,extended release (Klor-Con) tiotropium bromide 18 mcg capsule 1 cap inhalation DAILY 09/24/24 09/24/24 History with inhalation device Patient History Medical History Depression GERD (gastroesophageal reflux disease) COPD with exacerbation Dyslipidemia, goal LDL below 70 Chronic hypoxic respiratory failure 3L NC chronic CAD (coronary artery disease) 2022 - STEMI w/ RCA interventions Anemia COPD (chronic obstructive pulmonary disease) PAF (paroxysmal atrial fibrillation) HTN (hypertension) Myocardial infarction due to demand ischemia Non-ST elevation ID (NSTEMI) Macular degeneration Tobacco use disorder Atrial fibrillation Diabetes Surgical History S/P ORIF (open reduction internal fixation) fracture H/O skin graft History of tonsillectomy H/O heart surgery History of cholecystectomy Hx of tubal ligation Social History Smoking Status: Unknown if ever smoked Tobacco Type: Cigarettes Cigarettes Per Day: 5; Second Hand Exposure: No; Do You Dip or Chew Tobacco: No; Hx Alcohol Use: No Hx Substance Use: No Preferred Language: Kyrgyz Communication Ability: Effective Gold Beater Required: No Beliefs That Will Affect Care: None Current Living Situation: Family Current Living Situation Comment: with daughter Feels Safe at Home: Yes Assistive Devices: Nebulizer, Oxygen - Continuous, Walker and Wheelchair Review of Systems Review of Systems: Unobtainable due to cognitive status Physical Exam Physical Exam: sedated Gastrointestinal (Abdomen): normal bowel sounds, soft, nontender, no hepatosplenomegaly Results & Data Vital Signs (Past 12 Hours) Vital Signs Temp Pulse Pulse Resp BP BP Pulse Ox 09/25/24 07:20 99 H 20 96 09/25/24 07:06 36.6 C 104 H 18 121/78 93 09/25/24 06:50 37.6 C H 97 H 25 H 107/64 98 09/25/24 05:00 37.2 C 74 20 98 09/25/24 04:00 09/25/24 03:39 36.9 C 69 20 96 09/25/24 03:12 36.5 C 70 20 97 09/25/24 02:30 35.8 C L 66 20 96 09/25/24 02:21 60 20 98 09/25/24 02:00 35.3 C L 59 L 20 98 09/25/24 01:50 60 20 98 09/25/24 01:33 34.8 C L 58 L 20 99 09/25/24 01:09 34.4 C L 58 L 20 99 09/25/24 00:30 33.9 C L 54 L 20 100 09/25/24 00:00 09/25/24 00:00 55 L 09/24/24 23:54 33.9 C L 52 L 20 100 09/24/24 23:12 33.6 C L 53 L 20 100 09/24/24 23:00 57 L 20 100 09/24/24 22:30 09/24/24 22:15 58 L 20 99 09/24/24 22:05 61 27 H 187/95 H 62 L 09/24/24 21:57 63 27 H 184/99 H 09/24/24 21:54 65 20 97 09/24/24 21:21 68 21 09/24/24 21:12 69 25 H 94 09/24/24 21:03 66 16 09/24/24 20:51 65 22 98 09/24/24 20:46 65 09/24/24 20:24 63 30 H 91 09/24/24 20:18 97 H 33 H 108/59 L 93 09/24/24 20:10 31 H 114/66 09/24/24 20:06 31 H 90 O2 Del Method FiO2 09/25/24 07:20 30 09/25/24 07:06 09/25/24 06:50 09/25/24 05:00 Mechanical Vent 30 09/25/24 04:00 30 09/25/24 03:39 Mechanical Vent 30 09/25/24 03:12 Mechanical Vent 30 09/25/24 02:30 Mechanical Vent 30 09/25/24 02:21 30 09/25/24 02:00 Mechanical Vent 30 09/25/24 01:50 Mechanical Vent 09/25/24 01:33 Mechanical Vent 30 09/25/24 01:09 Mechanical Vent 30 09/25/24 00:30 Mechanical Vent 30 09/25/24 00:00 30 09/25/24 00:00 09/24/24 23:54 Mechanical Vent 30 09/24/24 23:12 Mechanical Vent 30 09/24/24 23:00 30 09/24/24 22:30 Mechanical Vent 30 09/24/24 22:15 Mechanical Vent 09/24/24 22:05 Mechanical Vent 09/24/24 21:57 Mechanical Vent 09/24/24 21:54 Mechanical Vent 50 09/24/24 21:21 09/24/24 21:12 09/24/24 21:03 09/24/24 20:51 09/24/24 20:46 09/24/24 20:24 09/24/24 20:18 09/24/24 20:10 09/24/24 20:06 Laboratory Results 09/25/24 09/25/24 09/25/24 Range/Units Unknown 06:43 06:11 WBC (4.8-10.8) K/ul RBC (4.20-5.40) M/uL Hgb (12.0-16.0) g/dl POC Hgb (12.0-16.0) g/dl Hct (37.0-47.0) % POC Hct (37-47) % MCV (80.0-100.0) fL MCH (25.0-34.0) pg MCHC (32.0-36.0) g/dL RDW Std Deviation (36.4-46.3) fL RDW Coeff of Chet (11.5-14.5) % Plt Count (130-400) K/uL MPV (9.4-12.4) fL Immature Gran % (Auto) % Neut % (Auto) % Lymph % (Auto) % [place] % (Auto) % Eos % (Auto) % Baso % (Auto) % Neut # (Auto) (1.40-6.50) K/uL Lymph # (Auto) (1.20-3.40) K/uL [place] # (Auto) (0.11-0.59) K/uL Eos # (Auto) (0.00-0.50) K/uL Baso # (Auto) (0.00-0.20) K/uL Immature Gran # (Auto) (0.01-0.20) K/uL Absolute Nucleated RBC (0.00-0.12) K/uL Nucleated RBC % (auto) % Polychromasia PT (9.0-12.0) Seconds INR (0.9-1.1) APTT (21-31) Seconds PTT Ratio Fibrinogen (184-400) mg/dl Heparin Anti-Xa, Unfract (0.3-0.7) IU/ml Specimen Type Sample Site POC pH (7.35-7.45) POC pCO2 (35-46) mmHg POC pO2 (80-95) mmHg POC HCO3 (19-24) norma/L POC Total CO2 (24-31) mmol/L POC Base Excess (-9-1.8) norma/L O2 Sat Pulse Oximetry ABG pH (Temp Correct) (7.35-7.45) ABG pCO2 (Temp Corrct (35-46) mmHg POC ABG pO2 at Pt Temp POC ABG O2 Sat (90-95) % Donnie Test O2 Delivery Device Vent Mode POC FiO2 % End Tidal CO2 POC Sodium (135-144) mmol/L Sodium (136-145) mmol/L POC Potassium (3.3-5.0) mmol/L Potassium (3.5-5.1) mmol/L POC Chloride (101-112) mmol/L Chloride (98-107) mmol/L Carbon Dioxide (21-32) mmol/L Anion Gap (3-11) POC Anion Gap (16-25) mmol/L POC BUN (7-18) mg/dl BUN (6-23) mg/dl Creatinine (0.6-1.2) mg/dl POC Creatinine (0.6-1.3) mg/dl Est Cr Clr Drug Dosing ml/min eGFR BUN/Creatinine Ratio (10-20) Glucose (70-99(Fasting)) mg/dl POC Glucose (70-99) mg/dl POC Glucose (other) 150 H (70-99) mg/dl Lactate 8.3 H* (0.4-2.0) mmol/L Calcium (8.6-10.3) mg/dl POC Ioniz Calcium Tabitha (1.12-1.32) mmol/l Phosphorus (2.5-4.9) mg/dl Magnesium (1.7-2.4) mg/dl Total Bilirubin (0.2-1.0) mg/dl Direct Bilirubin (0-0.2) mg/dl AST (13-39) U/L ALT (7-52) U/L Alkaline Phosphatase (34-104) U/L Troponin I High Sens (0-14) pg/ml Total Protein (6.0-8.3) gm/dl Albumin (3.4-5.0) gm/dl Procalcitonin (0-0.5) ng/ml Urine Color Urine Appearance (Clear) Urine pH (4.5-7.5) Ur Specific [place] (1.000-1.030) Urine Protein (Negative) Urine Glucose (UA) (Negative) Urine Ketones (Negative) Urine Blood (Negative) Urine Nitrite (Negative) Urine Bilirubin (Negative) Urine Urobilinogen (Negative) Ur Leukocyte Esterase (Negative) Urine WBC (Auto) (0-5) /hpf Urine RBC (Auto) (0-2) /hpf U Hyaline Cast (Auto) (0-2) /lpf U Epithel Cells (Auto) (0-2) /hpf Urine Bacteria (Auto) (None Seen) Hyaline Casts (None Presnt) /lpf Urine Yeast (None Prsent) Urine Comment Nasal Screen MRSA (PCR) Negative (Negative) Blood Type Antibody Screen Crossmatch 09/25/24 09/25/24 09/25/24 Range/Units 03:40 03:04 02:16 WBC (4.8-10.8) K/ul RBC (4.20-5.40) M/uL Hgb (12.0-16.0) g/dl POC Hgb 6.8 L* (12.0-16.0) g/dl Hct (37.0-47.0) % POC Hct 20 L* (37-47) % MCV (80.0-100.0) fL MCH (25.0-34.0) pg MCHC (32.0-36.0) g/dL RDW Std Deviation (36.4-46.3) fL RDW Coeff of Chet (11.5-14.5) % Plt Count (130-400) K/uL MPV (9.4-12.4) fL Immature Gran % (Auto) % Neut % (Auto) % Lymph % (Auto) % [place] % (Auto) % Eos % (Auto) % Baso % (Auto) % Neut # (Auto) (1.40-6.50) K/uL Lymph # (Auto) (1.20-3.40) K/uL [place] # (Auto) (0.11-0.59) K/uL Eos # (Auto) (0.00-0.50) K/uL Baso # (Auto) (0.00-0.20) K/uL Immature Gran # (Auto) (0.01-0.20) K/uL Absolute Nucleated RBC (0.00-0.12) K/uL Nucleated RBC % (auto) % Polychromasia PT 21.4 H (9.0-12.0) Seconds INR 2.1 H (0.9-1.1) APTT 34 H (21-31) Seconds PTT Ratio 1.3 Fibrinogen 393 (184-400) mg/dl Heparin Anti-Xa, Unfract > 1.50 H* (0.3-0.7) IU/ml Specimen Type Arterial Sample Site Art Line POC pH 7.31 L (7.35-7.45) POC pCO2 41 (35-46) mmHg POC pO2 84 (80-95) mmHg POC HCO3 21 (19-24) norma/L POC Total CO2 22 L (24-31) mmol/L POC Base Excess -6.0 (-9-1.8) norma/L O2 Sat Pulse Oximetry 97 ABG pH (Temp Correct) 7.314 L (7.35-7.45) ABG pCO2 (Temp Corrct 40 (35-46) mmHg POC ABG pO2 at Pt Temp 80 POC ABG O2 Sat 95.0 (90-95) % Donnie Test NA O2 Delivery Device Ventilator Vent Mode AC POC FiO2 30 % End Tidal CO2 26 POC Sodium 141 (135-144) mmol/L Sodium (136-145) mmol/L POC Potassium 4.7 (3.3-5.0) mmol/L Potassium (3.5-5.1) mmol/L POC Chloride (101-112) mmol/L Chloride (98-107) mmol/L Carbon Dioxide (21-32) mmol/L Anion Gap (3-11) POC Anion Gap (16-25) mmol/L POC BUN (7-18) mg/dl BUN (6-23) mg/dl Creatinine (0.6-1.2) mg/dl POC Creatinine (0.6-1.3) mg/dl Est Cr Clr Drug Dosing ml/min eGFR BUN/Creatinine Ratio (10-20) Glucose (70-99(Fasting)) mg/dl POC Glucose (70-99) mg/dl POC Glucose (other) (70-99) mg/dl Lactate 8.1 H* (0.4-2.0) mmol/L Calcium (8.6-10.3) mg/dl POC Ioniz Calcium Tabitha (1.12-1.32) mmol/l Phosphorus (2.5-4.9) mg/dl Magnesium (1.7-2.4) mg/dl Total Bilirubin (0.2-1.0) mg/dl Direct Bilirubin (0-0.2) mg/dl AST (13-39) U/L ALT (7-52) U/L Alkaline Phosphatase (34-104) U/L Troponin I High Sens (0-14) pg/ml Total Protein (6.0-8.3) gm/dl Albumin (3.4-5.0) gm/dl Procalcitonin (0-0.5) ng/ml Urine Color Urine Appearance (Clear) Urine pH (4.5-7.5) Ur Specific [place] (1.000-1.030) Urine Protein (Negative) Urine Glucose (UA) (Negative) Urine Ketones (Negative) Urine Blood (Negative) Urine Nitrite (Negative) Urine Bilirubin (Negative) Urine Urobilinogen (Negative) Ur Leukocyte Esterase (Negative) Urine WBC (Auto) (0-5) /hpf Urine RBC (Auto) (0-2) /hpf U Hyaline Cast (Auto) (0-2) /lpf U Epithel Cells (Auto) (0-2) /hpf Urine Bacteria (Auto) (None Seen) Hyaline Casts (None Presnt) /lpf Urine Yeast (None Prsent) Urine Comment Nasal Screen MRSA (PCR) (Negative) Blood Type O Positive Antibody Screen NEGATIVE Crossmatch See Detail 09/25/24 09/25/24 09/24/24 Range/Units 02:13 00:31 22:46 WBC 22.07 H (4.8-10.8) K/ul RBC 2.40 L (4.20-5.40) M/uL Hgb 6.5 L* (12.0-16.0) g/dl POC Hgb (12.0-16.0) g/dl Hct 22.3 L (37.0-47.0) % POC Hct (37-47) % MCV 92.9 (80.0-100.0) fL MCH 27.1 (25.0-34.0) pg MCHC 29.1 L (32.0-36.0) g/dL RDW Std Deviation 60.8 H (36.4-46.3) fL RDW Coeff of Chet 17.6 H (11.5-14.5) % Plt Count 435 H (130-400) K/uL MPV 9.1 L (9.4-12.4) fL Immature Gran % (Auto) 3.5 % Neut % (Auto) 82.3 % Lymph % (Auto) 9.6 % [place] % (Auto) 4.5 % Eos % (Auto) 0.0 % Baso % (Auto) 0.1 % Neut # (Auto) 18.14 H (1.40-6.50) K/uL Lymph # (Auto) 2.12 (1.20-3.40) K/uL [place] # (Auto) 1.00 H (0.11-0.59) K/uL Eos # (Auto) 0.01 (0.00-0.50) K/uL Baso # (Auto) 0.03 (0.00-0.20) K/uL Immature Gran # (Auto) 0.77 H (0.01-0.20) K/uL Absolute Nucleated RBC (0.00-0.12) K/uL Nucleated RBC % (auto) % Polychromasia 1+ PT (9.0-12.0) Seconds INR (0.9-1.1) APTT (21-31) Seconds PTT Ratio Fibrinogen (184-400) mg/dl Heparin Anti-Xa, Unfract (0.3-0.7) IU/ml Specimen Type Sample Site POC pH (7.35-7.45) POC pCO2 (35-46) mmHg POC pO2 (80-95) mmHg POC HCO3 (19-24) norma/L POC Total CO2 (24-31) mmol/L POC Base Excess (-9-1.8) norma/L O2 Sat Pulse Oximetry ABG pH (Temp Correct) (7.35-7.45) ABG pCO2 (Temp Corrct (35-46) mmHg POC ABG pO2 at Pt Temp POC ABG O2 Sat (90-95) % Donnie Test O2 Delivery Device Vent Mode POC FiO2 % End Tidal CO2 POC Sodium (135-144) mmol/L Sodium 142 141 (136-145) mmol/L POC Potassium (3.3-5.0) mmol/L Potassium 5.0 5.4 H (3.5-5.1) mmol/L POC Chloride (101-112) mmol/L Chloride 106 105 (98-107) mmol/L Carbon Dioxide 23 22 (21-32) mmol/L Anion Gap 13 H 14 H (3-11) POC Anion Gap (16-25) mmol/L POC BUN (7-18) mg/dl BUN 36 H 35 H (6-23) mg/dl Creatinine 1.04 1.13 (0.6-1.2) mg/dl POC Creatinine (0.6-1.3) mg/dl Est Cr Clr Drug Dosing 34.7 31.9 ml/min eGFR 56.05 50.74 BUN/Creatinine Ratio 34.6 H 31.0 H (10-20) Glucose 201 H 183 H (70-99(Fasting)) mg/dl POC Glucose 250 H (70-99) mg/dl POC Glucose (other) (70-99) mg/dl Lactate 6.3 H* (0.4-2.0) mmol/L Calcium 7.4 L 7.6 L (8.6-10.3) mg/dl POC Ioniz Calcium Tabitha (1.12-1.32) mmol/l Phosphorus 4.5 (2.5-4.9) mg/dl Magnesium 2.1 (1.7-2.4) mg/dl Total Bilirubin 0.5 (0.2-1.0) mg/dl Direct Bilirubin 0.2 (0-0.2) mg/dl AST 2562 H (13-39) U/L ALT 1391 H (7-52) U/L Alkaline Phosphatase 103 (34-104) U/L Troponin I High Sens 963.3 H* D 792.0 H* D (0-14) pg/ml Total Protein 4.7 L D (6.0-8.3) gm/dl Albumin 2.4 L (3.4-5.0) gm/dl Procalcitonin (0-0.5) ng/ml Urine Color Urine Appearance (Clear) Urine pH (4.5-7.5) Ur Specific [place] (1.000-1.030) Urine Protein (Negative) Urine Glucose (UA) (Negative) Urine Ketones (Negative) Urine Blood (Negative) Urine Nitrite (Negative) Urine Bilirubin (Negative) Urine Urobilinogen (Negative) Ur Leukocyte Esterase (Negative) Urine WBC (Auto) (0-5) /hpf Urine RBC (Auto) (0-2) /hpf U Hyaline Cast (Auto) (0-2) /lpf U Epithel Cells (Auto) (0-2) /hpf Urine Bacteria (Auto) (None Seen) Hyaline Casts (None Presnt) /lpf Urine Yeast (None Prsent) Urine Comment Nasal Screen MRSA (PCR) (Negative) Blood Type Antibody Screen Crossmatch 09/24/24 09/24/24 09/24/24 Range/Units 21:49 20:27 20:23 WBC (4.8-10.8) K/ul RBC (4.20-5.40) M/uL Hgb (12.0-16.0) g/dl POC Hgb 7.1 L 9.5 L (12.0-16.0) g/dl Hct (37.0-47.0) % POC Hct 21 L 28 L (37-47) % MCV (80.0-100.0) fL MCH (25.0-34.0) pg MCHC (32.0-36.0) g/dL RDW Std Deviation (36.4-46.3) fL RDW Coeff of Chet (11.5-14.5) % Plt Count (130-400) K/uL MPV (9.4-12.4) fL Immature Gran % (Auto) % Neut % (Auto) % Lymph % (Auto) % [place] % (Auto) % Eos % (Auto) % Baso % (Auto) % Neut # (Auto) (1.40-6.50) K/uL Lymph # (Auto) (1.20-3.40) K/uL [place] # (Auto) (0.11-0.59) K/uL Eos # (Auto) (0.00-0.50) K/uL Baso # (Auto) (0.00-0.20) K/uL Immature Gran # (Auto) (0.01-0.20) K/uL Absolute Nucleated RBC (0.00-0.12) K/uL Nucleated RBC % (auto) % Polychromasia PT (9.0-12.0) Seconds INR (0.9-1.1) APTT (21-31) Seconds PTT Ratio Fibrinogen (184-400) mg/dl Heparin Anti-Xa, Unfract (0.3-0.7) IU/ml Specimen Type Sample Site POC pH 7.32 L (7.35-7.45) POC pCO2 42 (35-46) mmHg POC pO2 565 H (80-95) mmHg POC HCO3 21 (19-24) norma/L POC Total CO2 23 L 28 (24-31) mmol/L POC Base Excess -5.0 (-9-1.8) norma/L O2 Sat Pulse Oximetry ABG pH (Temp Correct) (7.35-7.45) ABG pCO2 (Temp Corrct (35-46) mmHg POC ABG pO2 at Pt Temp POC ABG O2 Sat 100.0 H (90-95) % Donnie Test O2 Delivery Device Vent Mode POC FiO2 % End Tidal CO2 POC Sodium 140 138 (135-144) mmol/L Sodium (136-145) mmol/L POC Potassium 5.0 5.8 H (3.3-5.0) mmol/L Potassium (3.5-5.1) mmol/L POC Chloride 100 L (101-112) mmol/L Chloride (98-107) mmol/L Carbon Dioxide (21-32) mmol/L Anion Gap (3-11) POC Anion Gap 17.0 (16-25) mmol/L POC BUN 31 H (7-18) mg/dl BUN (6-23) mg/dl Creatinine (0.6-1.2) mg/dl POC Creatinine 1.4 H (0.6-1.3) mg/dl Est Cr Clr Drug Dosing ml/min eGFR BUN/Creatinine Ratio (10-20) Glucose (70-99(Fasting)) mg/dl POC Glucose (70-99) mg/dl POC Glucose (other) 177 H (70-99) mg/dl Lactate (0.4-2.0) mmol/L Calcium (8.6-10.3) mg/dl POC Ioniz Calcium Tabitha 1.01 L (1.12-1.32) mmol/l Phosphorus (2.5-4.9) mg/dl Magnesium (1.7-2.4) mg/dl Total Bilirubin (0.2-1.0) mg/dl Direct Bilirubin (0-0.2) mg/dl AST (13-39) U/L ALT (7-52) U/L Alkaline Phosphatase (34-104) U/L Troponin I High Sens (0-14) pg/ml Total Protein (6.0-8.3) gm/dl Albumin (3.4-5.0) gm/dl Procalcitonin (0-0.5) ng/ml Urine Color [place] Urine Appearance Turbid A (Clear) Urine pH 5.0 (4.5-7.5) Ur Specific [place] 1.014 (1.000-1.030) Urine Protein 2+ H (Negative) Urine Glucose (UA) Negative (Negative) Urine Ketones Negative (Negative) Urine Blood 3+ H (Negative) Urine Nitrite Negative (Negative) Urine Bilirubin 1+ H (Negative) Urine Urobilinogen Negative (Negative) Ur Leukocyte Esterase 3+ H (Negative) Urine WBC (Auto) >50 H (0-5) /hpf Urine RBC (Auto) >20 H (0-2) /hpf U Hyaline Cast (Auto) >20 H (0-2) /lpf U Epithel Cells (Auto) 3-5 H (0-2) /hpf Urine Bacteria (Auto) 2+ H (None Seen) Hyaline Casts Present A (None Presnt) /lpf Urine Yeast Present A (None Prsent) Urine Comment Nasal Screen MRSA (PCR) (Negative) Blood Type Antibody Screen Crossmatch 09/24/24 09/24/24 09/24/24 Range/Units 20:17 19:58 19:14 WBC 20.14 H (4.8-10.8) K/ul RBC 3.03 L (4.20-5.40) M/uL Hgb 8.4 L (12.0-16.0) g/dl POC Hgb 9.9 L (12.0-16.0) g/dl Hct 29.2 L (37.0-47.0) % POC Hct 29 L (37-47) % MCV 96.4 (80.0-100.0) fL MCH 27.7 (25.0-34.0) pg MCHC 28.8 L (32.0-36.0) g/dL RDW Std Deviation 62.7 H (36.4-46.3) fL RDW Coeff of Chet 17.6 H (11.5-14.5) % Plt Count 529 H (130-400) K/uL MPV 9.0 L (9.4-12.4) fL Immature Gran % (Auto) 2.4 % Neut % (Auto) 87.2 % Lymph % (Auto) 4.7 % [place] % (Auto) 5.5 % Eos % (Auto) 0.1 % Baso % (Auto) 0.1 % Neut # (Auto) 17.55 H (1.40-6.50) K/uL Lymph # (Auto) 0.94 L (1.20-3.40) K/uL [place] # (Auto) 1.11 H (0.11-0.59) K/uL Eos # (Auto) 0.03 (0.00-0.50) K/uL Baso # (Auto) 0.03 (0.00-0.20) K/uL Immature Gran # (Auto) 0.48 H (0.01-0.20) K/uL Absolute Nucleated RBC 0.02 (0.00-0.12) K/uL Nucleated RBC % (auto) 0.1 % Polychromasia PT 20.8 H (9.0-12.0) Seconds INR 2.0 H (0.9-1.1) APTT 37 H (21-31) Seconds PTT Ratio 1.4 Fibrinogen (184-400) mg/dl Heparin Anti-Xa, Unfract (0.3-0.7) IU/ml Specimen Type Sample Site POC pH 7.17 L* (7.35-7.45) POC pCO2 84 H (35-46) mmHg POC pO2 295 H (80-95) mmHg POC HCO3 31 H (19-24) norma/L POC Total CO2 34 H (24-31) mmol/L POC Base Excess 3.0 H (-9-1.8) noram/L O2 Sat Pulse Oximetry ABG pH (Temp Correct) (7.35-7.45) ABG pCO2 (Temp Corrct (35-46) mmHg POC ABG pO2 at Pt Temp POC ABG O2 Sat 100.0 H (90-95) % Donnie Test O2 Delivery Device Vent Mode POC FiO2 % End Tidal CO2 POC Sodium 136 (135-144) mmol/L Sodium 141 (136-145) mmol/L POC Potassium 5.8 H (3.3-5.0) mmol/L Potassium 5.9 H (3.5-5.1) mmol/L POC Chloride (101-112) mmol/L Chloride 99 (98-107) mmol/L Carbon Dioxide 29 (21-32) mmol/L Anion Gap 13 H (3-11) POC Anion Gap (16-25) mmol/L POC BUN (7-18) mg/dl BUN 33 H (6-23) mg/dl Creatinine 1.35 H (0.6-1.2) mg/dl POC Creatinine (0.6-1.3) mg/dl Est Cr Clr Drug Dosing 26.7 ml/min eGFR 40.98 BUN/Creatinine Ratio 24.4 H (10-20) Glucose 186 H (70-99(Fasting)) mg/dl POC Glucose 196 H (70-99) mg/dl POC Glucose (other) (70-99) mg/dl Lactate 6.6 H* (0.4-2.0) mmol/L Calcium 8.4 L (8.6-10.3) mg/dl POC Ioniz Calcium [place] (1.12-1.32) mmol/l Phosphorus (2.5-4.9) mg/dl Magnesium 2.4 (1.7-2.4) mg/dl Total Bilirubin 0.8 (0.2-1.0) mg/dl Direct Bilirubin 0.4 H (0-0.2) mg/dl AST 1122 H (13-39) U/L ALT 692 H (7-52) U/L Alkaline Phosphatase 132 H (34-104) U/L Troponin I High Sens 415.2 H* (0-14) pg/ml Total Protein 6.1 (6.0-8.3) gm/dl Albumin 3.1 L (3.4-5.0) gm/dl Procalcitonin 4.50 H (0-0.5) ng/ml Urine Color Urine Appearance (Clear) Urine pH (4.5-7.5) Ur Specific [place] (1.000-1.030) Urine Protein (Negative) Urine Glucose (UA) (Negative) Urine Ketones (Negative) Urine Blood (Negative) Urine Nitrite (Negative) Urine Bilirubin (Negative) Urine Urobilinogen (Negative) Ur Leukocyte Esterase (Negative) Urine WBC (Auto) (0-5) /hpf Urine RBC (Auto) (0-2) /hpf U Hyaline Cast (Auto) (0-2) /lpf U Epithel Cells (Auto) (0-2) /hpf Urine Bacteria (Auto) (None Seen) Hyaline Casts (None Presnt) /lpf Urine Yeast (None Prsent) Urine Comment Nasal Screen MRSA (PCR) (Negative) Blood Type Antibody Screen Crossmatch Diagnostic Findings Chest X-Ray 09/24/24 18:42 Chest radiograph, one view History: Sepsis Comparison: 08/22/2024 Findings: Single AP view of the chest performed. No focal consolidation or pleural effusion. No pneumothorax. The lungs are emphysematous. The cardiomediastinal silhouette is within normal limits. Normal pulmonary vascularity. No evidence for lymphadenopathy. No visualized bony or soft tissue abnormality. Impression: Normal chest radiograph. The lower chest is not completely in the [id number]. Electronically signed by Meliton Blackwell 09-24-2024 8:[address] 09/24/24 18:51 Exam(s): CT HEAD Without Contrast EXAM: CT Head Without Intravenous Contrast CLINICAL HISTORY: Altered mental status TECHNIQUE: Axial computed tomography images of the head/brain without intravenous contrast. CTDI is 37 mGy and DLP is 702 mGy-cm. Automated exposure control was utilized for the study. A dose lowering technique was utilized adhering to the principles of ALARA. COMPARISON: No relevant prior studies available. FINDINGS: Brain: No intracranial hemorrhage, mass-effect or midline shift. No abnormal extra axial fluid. No evidence of acute infarct. 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 Ventricles: Unremarkable. No ventriculomegaly. Bones/joints: Unremarkable. No acute fracture. Soft tissues: Unremarkable. Sinuses: Unremarkable as visualized. No acute sinusitis. Mastoid air cells: Unremarkable as visualized. No mastoid effusion. IMPRESSION: No acute intracranial finding. Electronically signed by: Gardenia Zheng MD 09/25/24 01:17 AM Chest X-Ray 09/24/24 21:34 Exam(s): XR CXR 1 VIEW EXAM: XR Chest, 1 View CLINICAL HISTORY: Reason for exam: intubation. TECHNIQUE: Frontal view of the chest. COMPARISON: X-ray chest: 09/24/2024 and 1926 hrs. FINDINGS: A suboptimally placed endotracheal tube seen with the tip abutting the right main bronchus. This needs to be retracted by pulling at least 3 cm. Lungs: Hyperinflated lungs/COPD bilateral perihilar mildly increased interstitial markings seen in both lung vazquez, more in the left lower lobe.. No consolidation. Pleural space: No pleural effusion. No pneumothorax. Heart: Atherosclerotic tortuosity of the aortic arch. No cardiomegaly. Mediastinum: Normal mediastinal contour. Bones/joints: Osteopenia.. No acute fracture. Possibly rotator cuff pathology. A small metallic anchor clip present laterally over the right humeral head.. IMPRESSION: A suboptimally placed endotracheal tube with the tip proximally at the right main bronchus. This needs to be retracted prior to its use. No consolidation, pulmonary vascular congestion or pleural effusion seen in the visualized lungs. . Electronically signed by: Kayden Salcedo MD, ELLER 09/24/24 23:23 PM Abdomen/Pelvis CT 09/24/24 22:00 Exam(s): CT ABDOMEN + PELVIS Without Contrast EXAM: CT Abdomen and Pelvis Without Intravenous Contrast CLINICAL HISTORY: Ureteral stent, septic shock. TECHNIQUE: Axial computed tomography images of the abdomen and pelvis without intravenous contrast. CTDI is 37 mGy and DLP is 702 mGy-cm. Automated exposure control was utilized for the study. A dose lowering technique was utilized adhering to the principles of ALARA. COMPARISON: No relevant prior studies available. FINDINGS: Lung bases: Unremarkable. No mass. No consolidation. ABDOMEN: Liver: Unremarkable. Gallbladder and bile ducts: Unremarkable. No calcified stones. No ductal dilation. Pancreas: Unremarkable. No ductal dilation. Spleen: Unremarkable. No splenomegaly. Adrenals: Unremarkable. No mass. Kidneys and ureters: Minimal right hydronephrosis with a ureteral stent in good position. Left kidney is unremarkable. Stomach and bowel: The rectum is fluid-filled. There is prominence of the wall throughout the colon. No obstruction. No mucosal thickening. PELVIS: Appendix: No findings to suggest acute appendicitis. Bladder: Thickening of the urinary bladder wall could relate to nondistention or cystitis. A Helms catheter is present. No stones. Reproductive: Unremarkable as visualized. ABDOMEN and PELVIS: Intraperitoneal space: Unremarkable. No free air. No significant fluid collection. Bones/joints: Age-indeterminate severe compression fracture of T11. No dislocation. Soft tissues: Unremarkable. Vasculature: Abdominal aortic aneurysm measuring 3.1 cm in maximum diameter. Lymph nodes: Unremarkable. No enlarged lymph nodes. Tubes, lines and devices: The NG tube side port is at the gastroesophageal junction. IMPRESSION: 1. Minimal right hydronephrosis with a ureteral stent in good position. 2. Thickening of the urinary bladder wall could relate to nondistention or cystitis. 3. The rectum is fluid-filled. Question diarrheal state. 4. There is prominence of the wall throughout the colon. This is likely infectious or inflammatory. 5. Abdominal aortic aneurysm measuring 3.1 cm in maximum diameter. Recommend abdomen/pelvis CT or MR imaging follow-up in 3 years. 6. Age-indeterminate severe compression fracture of T11. 7. The NG tube side port is at the gastroesophageal junction. Advancement is recommended. Electronically signed by: Gardneia Zheng MD 09/25/24 01:24 AM Chest X-Ray 09/24/24 22:06 Exam(s): XR CXR 1 VIEW EXAM: XR Chest, 1 View CLINICAL HISTORY: Reason for exam: ETT and OGT. TECHNIQUE: Frontal view of the chest. COMPARISON: X-ray chest: 09/24/2024 at 2135 hrs. FINDINGS: Again noted the tip of the endotracheal tube is abutting most proximally the right main bronchus. A NG tube tip is seen in topography of the gastric fundus. Lungs: Hyperinflated lungs. Bilateral bronchial wall thickening. No consolidation. Pleural space: No pleural effusion. No pneumothorax. Heart: No cardiomegaly. Mediastinum: Significant atherosclerotic tortuosity of the thoracic aorta. Normal mediastinal contour. Bones/joints: Osteopenia. No acute fracture. IMPRESSION: An adequately placed NG tube. Again noted a suboptimally placed endotracheal tube. . Electronically signed by: Kayden Salcedo MD, DABR 09/25/24 00:41 AM Abdomen/Pelvis CTA 09/25/24 03:20 EXAM: CT angio abd pelvis wo/w con CLINICAL HISTORY: Lower gastrointestinal bleed, shock TECHNIQUE: Contrast enhanced thin slice CT angiography scan of the abdominal aorta was performed with intravenous contrast. Angiographic images were processed, 3D MIP images were acquired for interpretation. Contiguous axial images were obtained. Reformatted coronal and sagittal images were also reviewed. If IV contrast material had not been administered, the likelihood of detecting abnormalities relevant to the patients condition would have been substantially decreased. CT scan was performed according to ALARA (as low as reasonable achievable). COMPARISON: CT dated 07/08/2024 21:50:23 [employer]. FINDINGS: Rectum is distended with mildly hyperdense material. On arterial phase images, few foci of hyperdensity are seen in the right lower lateral wall of the rectum; not previously seen on plain images. Right kidney shows a simple cortical cyst measuring 31mm in interpolar region. Stent is seen in the right ureter with proximal end in right renal pelvis and distal end in the urinary bladder. Urinary bladder is empty and shows Helms's catheter bulb in situ. Nasogastric tube is seen in situ with its tip in the body of stomach. Atherosclerotic wall thickening and calcification is seen in the aorta and its major branches. Abdominal aorta is normal in course, calibre and opacification. Fusiform dilatation of infra-renal abdominal aorta of diameter 3.2cm, for a length of 3.4cm. Origin of coeliac artery, superior mesenteric artery , bilateral main renal and lumbar arteries are normal with no hemodynamically significant ostial stenosis noted. Bilateral common, external and internal iliac arteries are normal in course, caliber and opacification. Solid abdominal organs including liver, spleen and pancreas reveal no significant abnormality. Bowel loops are otherwise grossly unremarkable. No evidence of ascites. IMPRESSION: 1. Distended rectum with hyperdense material in the lumen and focal arterial phase hyperdensity in right lateral lower rectal wall suggesting active arterial leak. 2. Right renal simple cortical cyst - persistent. 3. Right ureteric stent. Previously identified right hydroureteronephrosis is not seen in this evaluation. 4. Persistent fusiform dilatation of infra-renal abdominal aorta of diameter 3.2cm, for a length of 3.4cm. Electronically signed by Mervin Stewart 09-25-2024 05:35 AM Liver Ultrasound 09/25/24 03:32 EXAM: US liver CLINICAL HISTORY: Shock, liver TECHNIQUE: Ultrasound examination of the RUQ was performed in real-time. COMPARISON: CT study done earlier, 09/25/2024 FINDINGS: Liver: Liver size: 12.9cm. Liver appears normal in size, with coarse echotexture and periportal tract thickening No evidence of focal lesions, cysts, or masses. Hepatic vasculature appears normal. Gallbladder: surgically removed Biliary Tree: Common bile duct diameter: 5mm. The common bile duct is within normal limits in caliber and not dilated. No evidence of choledocholithiasis or biliary obstruction. Right Kidney: Not fully seen due to overlying bowel gas, and the patient is unable to hold breath/decubitus. Increased renal parenchymal echogenicity Two cortical cysts, the largest measures 2.4x2.4x1.7cm, the smaller one measures about 0.9x0.6x0.7 cm Pancreas: head and body appear unremarkable. The tail is not visualized due to bowel gases IMPRESSION: 1. Heterogeneous liver parenchyma with periportal tract thickening could suggest chronic parenchymal liver disease 2. Echogenic grade I renal parenchyma could suggest chronic medical renal disease 3. Two right renal cortical cysts. 4. No interval changes. RECOMMENDATIONS: Clinical correlation with symptoms and further evaluation, including liver function and renal function tests as indicated. Electronically signed by Fred Cerda 09-25-2024 07:51 AM
[2024-09-25] MEDS ORDERED: CEFEPIME 1000MG 1,000 MG/10 ML SYR IV SCH (08:00)
[2024-09-25] MEDS ORDERED: CEFEPIME 2000MG 2,000 MG/20 ML SYR IV SCH (08:00)
--- NOTE | 2024-09-25 08:00 | Cardiology Consultation ---
Date of Consultation September 25, 2024 Assessment & Plan (1) CAD (coronary artery disease), [place] coronary artery: (2) Abnormal EKG: (3) Sepsis: (4) PAF (paroxysmal atrial fibrillation): (5) Anticoagulant long-term use: (6) Rectal bleeding: Plan 74-year-old female with PMHx significant for CAD s/p RADU x2 to RCA (2022), history of STEMI, HTN, HLD, COPD, chronic hypoxic respiratory failure (on 3L via NC at baseline), and paroxysmal atrial fibrillation who presented on 09/24/24 for evaluation of AMS. Recent [facility] admission (08/22-09/01/24) for sepsis due to complicated cystitis, COPD exacerbation and AFIB with RVR. 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 Underwent cystoscopy (08/28/24) with bilateral retrograde pyelogram and right ureteroscopy with ureteral dilatation and stent placement. Positive for Citrobacter and Pseudomonas. Treated with IV antiobiotics and transitioned to PO ciprofloxacin upon discharged. Metoprolol succinate ER dose increased to 50 mg twice daily and discharged on ORDER DESK CALLER Eliquis. [facility] and came back home yesterday. Her daughter tried to wake her up and patient would not wake up yesterday morning and EMS was called. Chest pain reported yesterday evening. EKG revealed STEMI in anterolateral and inferior leads and heart alert was called. Intubated in ED due to ongoing issues. Cardiology consulted and initially planned to take patient to cardiac qc lab technician but abnormal ST changes resolved on repeat EKG. Abnormal EKG changes felt to be secondary to sepsis and metabolic derangements and cardiac cath deferred. Transferred to ICU for close monitoring. 09/25/24: Remains sedated and intubated on ventilator in no acute distress. Remains on two IV pressors for blood pressure support. Indwelling lord catheter draining clear, yellow urine. Episode of paroxysmal atrial fibrillation at 0600 AM with rates in 100-110 bpm. Hemoglobin dropped (7.1 -> 6.8) on AM labs and received 1 unit blood. Plan/Recommendations: * Does not appear significant volume overloaded upon examination * Elevated high sensitivity troponins ([phone]) and abnormal EKG changes likely secondary to demand ischemia in setting of acute septic and hypovolemic shock in setting of possible UTI and acute blood loss anemia * ECHO today with preserved LVEF 50-55%, mild concentric left ventricular hypertrophy, mild mitral regurgitation, and no regional WMAs * Titrate down IV pressors as tolerated * Continue to monitor H&H and transfuse as needed to maintain Hgb > 9.0 * Would hold off on anticoagulation and consider starting heparin gtt once hemoglobin stabilizes * Will continue conservative medical management and defer to primary team for treatment of sepsis in setting of complicated UTI * Gastroenterology consulted regarding acute blood loss anemia with suspected diverticular bleed Case discussed and coordinated with Dr. Stockton. Please see Dr. Stockton notes for further recommendations. I spent a total of 45 minutes coordinating, documenting, and providing care for this patient excluding time spent in the performance of separately billed services or time spent by another provider/QHP. BLANK Yoder Department of Cardiology Supervising Physician Co-Signing Physician Notes I spent a total of 60minutes on the date of service in preparation, delivery, and documentation of the care provided to this patient, excluding any time spent in the performance of separately billed services. I have personally performed a history and physical examination on the patient. I have reviewed the advance practitioner's documentation, and I agree with, and take responsibility for the plan of care. 74-year-old female with past medical history of paroxysmal atrial fibrillation, coronary artery disease (history of inferior STEMI in 2022 stent to RCA), COPD, chronic respiratory failure on 3 L nasal cannula at baseline, HTN, HLD, questionable apical HCM presented yesterday with altered mental status. Patient was found unresponsive by her daughter. Patient was recently hospitalized from 08/22/2024 to 09/01/2024 at that time was admitted for sepsis and UTI along with COPD exacerbation. At the time she was found to have a stricture in the right ureterovesicular junction and underwent ureteral dilatation and stent placement. Her cultures grew Citrobacter and Pseudomonas and was initially treated with IV antibiotics. Yesterday morning daughter found patient unresponsive and there was blood in her Lord. Once EMS arrived her blood sugar was noted to be 14 and she was given the 25 and her systolic blood pressures are in the 70s. After day 25 she became more alert in the ER however patient deteriorated and ended up being intubated. Initial ECG done showed ST elevations in the inferior and anterolateral leads and a heart alert was called. Patient was evaluated by interventional cardiology and repeat EKG was done which showed resolution of her ST elevations and with a prolonged QT interval. Troponins were noted to be elevated at 04 15 and trended upwards to 1178. Decision was made not to take patient to [facility] due to metabolic derangements that were noted. Patient was noted to be hyperkalemic with a potassium of 5.9 patient currently intubated. Patient currently intubated in the ICU. Had echocardiogram done today showed preserved left ventricular ejection fraction. Her hemoglobin dropped to 6.8 today. GI has been consulted. Heparin drip on hold due to acute drop in hemoglobin. Lactate trended upwards to 8.3. Patient currently on pressor support with Levophed and on IV antibiotics. Agree with holding heparin infusion for now until hemoglobin is more stable. Conservative management for now. Prognosis guarded. History of Present Illness Reason for Consultation: STEMI Requesting Physician: Adan Shelton MD Attending Physician: Gabriel Ponce DO History of Present Illness 74-year-old female with PMHx significant for CAD s/p RADU x2 to RCA (2022), history of STEMI, HTN, HLD, COPD, chronic hypoxic respiratory failure (on 3L via NC at baseline), chronic nonspecific lung disease, hypothyroidism, osteoarthritis, osteoporosis, migraines, ELIZABETH, tobacco use disorder and paroxysmal atrial fibrillation (on Eliquis) who presented on 09/24/24 for evaluation of AMS. History obtained via chart review. Recent [facility] admission (08/22-09/01/24) for s epsis due to complicated cystitis, COPD exacerbation and AFIB with RVR. 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 Underwent cystoscopy (08/28/24) with bilateral retrograde pyelogram and right ureteroscopy with ureteral dilatation and stent placement. Positive for Citrobacter and Pseudomonas. Treated with IV antiobiotics and transitioned to PO ciprofloxacin upon discharged. Metoprolol succinate ER dose increased to 50 mg twice daily and discharged on ORDER DESK CALLER Eliquis. She was [facility] to [facility] and came back home yesterday. Her daughter tried to wake her up and patient would not wake up yesterday morning. She was drooling and her daughter noticed some blood in her lord. EMS was called. Blood sugar was 14 and received D25. Systolic blood pressure was 70s and received fluid bolus. Patient reported chest pain yesterday evening. EKG revealed STEMI in anterolateral and inferior leads and heart alert was called. Intubated in ED due to ongoing issues. Cardiology consulted and initially planed to take patient to cardiac qc lab technician but abnormal ST changes resolved on repeat EKG. Abnormal EKG changes felt to be secondary to sepsis and metabolic derangements. Remains sedated and intubated on ventilator in no acute distress. Remains on two IV pressors for blood pressure support. Indwelling lord catheter draining clear, yellow urine. Episode of paroxysmal atrial fibrillation at 0600 AM with rates in 100-110 bpm. Hemoglobin dropped (7.1 -> 6.8) on AM labs and received 1 unit blood. Chart, medications, and telemetry reviewed personally. Allergies Allergy/AdvReac Type Severity Reaction Status Date / Time bee venom protein (honey bee) Allergy Severe SWELLING Verified 01/30/24 16:12 SEVERE doxycycline Allergy Intermediate Vomiting Verified 01/30/24 16:12 Home Medications Medication Instructions Recorded Confirmed Type albuterol sulfate 90 mcg/actuation 2 puff inhalation Q4H PRN 09/24/24 09/24/24 History aerosol inhaler Shortness Of Breath Or Wheezing alendronate 70 mg tablet 70 mg PO WK 09/24/24 09/24/24 History apixaban 5 mg tablet (Eliquis) 5 mg PO BID 09/24/24 09/24/24 History atorvastatin 40 mg tablet 40 mg PO DAILY 09/24/24 09/24/24 History cholecalciferol (vitamin D3) 50 50 mcg PO DAILY 09/24/24 09/24/24 History mcg (2,000 unit) capsule (Vitamin D3) citalopram 40 mg tablet 40 mg PO DAILY 09/24/24 09/24/24 History clopidogrel 75 mg tablet (Plavix) 75 mg PO DAILY 09/24/24 09/24/24 History docosahexaenoic acid (dha)-epa 120 1 cap PO DAILY 09/24/24 09/24/24 History mg-180 mg capsule (Fish Oil) fluticasone propionate 115 2 puff inhalation BID 09/24/24 09/24/24 History mcg-salmeterol 21 mcg/actuation HFA inhaler furosemide 40 mg tablet 20 mg PO DAILY 09/24/24 09/24/24 History gabapentin 300 mg capsule 300 mg PO BID 09/24/24 09/24/24 History ipratropium 0.5 mg-albuterol 3 mg 3 ml inhalation QID PRN Shortness 09/24/24 09/24/24 History (2.5 mg base)/3 mL nebulization Of Breath Or Wheezing soln levothyroxine 25 mcg tablet 25 mcg PO DAILY 09/24/24 09/24/24 History losartan 25 mg tablet 25 mg PO DAILY 09/24/24 09/24/24 History magnesium oxide 400 mg PO BID 09/24/24 09/24/24 History metoprolol succinate 50 mg 50 mg PO BID 09/24/24 09/24/24 History tablet,extended release 24 hr multivitamin 1 tab PO DAILY 09/24/24 09/24/24 History nitroglycerin 0.4 mg sublingual 0.4 mg sublingual UD 09/24/24 09/24/24 History tablet oxybutynin chloride 5 mg 5 mg PO DAILY 09/24/24 09/24/24 History tablet,extended release 24 hr oxycodone 5 mg tablet 5 mg PO Q4H PRN Pain 09/24/24 09/24/24 History pantoprazole 40 mg tablet,delayed 40 mg PO DAILY 09/24/24 09/24/24 History release (Protonix) potassium chloride 10 mEq 10 meq PO BID 09/24/24 09/24/24 History tablet,extended release (Klor-Con) tiotropium bromide 18 mcg capsule 1 cap inhalation DAILY 09/24/24 09/24/24 History with inhalation device Patient History Medical History Depression GERD (gastroesophageal reflux disease) COPD with exacerbation Dyslipidemia, goal LDL below 70 Chronic hypoxic respiratory failure 3L NC chronic CAD (coronary artery disease) 2022 - STEMI w/ RCA interventions Anemia COPD (chronic obstructive pulmonary disease) PAF (paroxysmal atrial fibrillation) HTN (hypertension) Myocardial infarction due to demand ischemia Non-ST elevation VT (NSTEMI) Macular degeneration Tobacco use disorder Atrial fibrillation Diabetes Surgical History S/P ORIF (open reduction internal fixation) fracture H/O skin graft History of tonsillectomy H/O heart surgery History of cholecystectomy Hx of tubal ligation Social History Smoking Status: Current every day smoker Tobacco Type: Cigarettes Cigarettes Per Day: 5; Second Hand Exposure: No; Do You Dip or Chew Tobacco: No; Hx Alcohol Use: No Hx Substance Use: No Preferred Language: Kyrgyz Communication Ability: Effective Optician Required: No Beliefs That Will Affect Care: None Current Living Situation: Family Current Living Situation Comment: with daughter Other Information That Helps Us Care for You: No Feels Safe at Home: Yes Safety Concerns: Feels Safe At This Time Assistive Devices: Oxygen - Continuous, Walker and Wheelchair Review of Systems Review of Systems: See HPI for pertinent positives. All others negative other than those noted in the HPI. CONSTITUTIONAL: No change in weight, No weakness, No fatigue, No fevers, No sweats or chills. HEENT: No visual changes, No epistaxis, No bleeding gums, No dysphagia, PULMONARY: No cough, sputum, or hemoptysis, No wheezing, No shortness of breath, and No recent change in breathing. CARDIOVASCULAR: No chest pain, No dyspnea on exertion, No edema, No palpitations, No syncope, No claudication, No calf pain. GASTROINTESTINAL: No change in appetite, No abdominal pain, No change in bowel habits, No significant heartburn, No nausea, No vomiting, No diarrhea, No constipation, No blood in stools or black tarry stools, No dysphagia. HEMATOLOGIC: No abnormal bleeding and No bruising. NEUROLOGICAL: No falls, No dizziness, No lightheadedness, Normal balance, No headaches, and No weakness. PSYCH: No sleep disturbances, No mood changes. Physical Exam Physical Exam: Vital signs within normal limits as above. General: Sedated on ventilator. HEENT: Normocephalic. Atraumatic. EOMI. Conjunctiva and sclera clear. NECK: Trachea midline. No thyromegaly. No carotid bruits. No JVD. Carotid upstrokes are brisk. Heart: RRR. S1 and S2 noted. Lungs: Diminished breath sounds throughout. Abdomen: Normal bowel sounds. Soft. Nontender. No abdominal bruits. Extremities: Normal capillary refill. No edema. No clubbing or cyanosis. Pulses: radial=2/4, dorsal pedis=2/4. Skin: Warm and dry. Results & Data Vital Signs (Past 12 Hours) Vital Signs Temp Pulse Pulse Resp BP BP Pulse Ox 09/25/24 07:20 99 H 20 96 06/15/25 07:06 36.6 C 104 H 18 121/78 93 09/25/24 06:50 37.6 C H 97 H 25 H 107/64 98 09/25/24 05:00 37.2 C 74 20 98 09/25/24 04:00 09/25/24 03:39 36.9 C 69 20 96 09/25/24 03:12 36.5 C 70 20 97 09/25/24 02:30 35.8 C L 66 20 96 09/25/24 02:21 60 20 98 09/25/24 02:00 35.3 C L 59 L 20 98 09/25/24 01:50 60 20 98 09/25/24 01:33 34.8 C L 58 L 20 99 09/25/24 01:09 34.4 C L 58 L 20 99 09/25/24 00:30 33.9 C L 54 L 20 100 09/25/24 00:00 09/25/24 00:00 55 L 09/24/24 23:54 33.9 C L 52 L 20 100 09/24/24 23:12 33.6 C L 53 L 20 100 09/24/24 23:00 57 L 20 100 09/24/24 22:30 09/24/24 22:15 58 L 20 99 09/24/24 22:05 61 27 H 187/95 H 62 L 09/24/24 21:57 63 27 H 184/99 H 09/24/24 21:54 65 20 97 09/24/24 21:21 68 21 09/24/24 21:12 69 25 H 94 09/24/24 21:03 66 16 09/24/24 20:51 65 22 98 09/24/24 20:46 65 09/24/24 20:24 63 30 H 91 09/24/24 20:18 97 H 33 H 108/59 L 93 09/24/24 20:10 31 H 114/66 09/24/24 20:06 31 H 90 09/24/24 19:54 33 H 84 L O2 Del Method FiO2 09/25/24 07:20 30 09/25/24 07:06 09/25/24 06:50 09/25/24 05:00 Mechanical Vent 30 09/25/24 04:00 09/25/24 03:39 Mechanical Vent 30 09/25/24 03:12 Mechanical Vent 30 09/25/24 02:30 Mechanical Vent 30 09/25/24 02:21 30 09/25/24 02:00 Mechanical Vent 30 09/25/24 01:50 Mechanical Vent 30 09/25/24 01:33 Mechanical Vent 30 09/25/24 01:09 Mechanical Vent 30 09/25/24 00:30 Mechanical Vent 30 09/25/24 00:00 09/25/24 00:00 09/24/24 23:54 Mechanical Vent 30 09/24/24 23:12 Mechanical Vent 30 09/24/24 23:00 30 09/24/24 22:30 Mechanical Vent 30 09/24/24 22:15 Mechanical Vent 09/24/24 22:05 Mechanical Vent 09/24/24 21:57 Mechanical Vent 09/24/24 21:54 Mechanical Vent 50 09/24/24 21:21 09/24/24 21:12 09/24/24 21:03 09/24/24 20:51 09/24/24 20:46 09/24/24 20:24 09/24/24 20:18 09/24/24 20:10 09/24/24 20:06 09/24/24 19:54 Laboratory Results Cardiac Enzymes 09/24/24 09/24/24 09/25/24 Range/Units 20:17 22:46 02:13 AST 1122 H 2562 H (13-39) U/L Troponin I High Sens 415.2 H* 792.0 H* D 963.3 H* D (0-14) pg/ml Coagulation 09/24/24 09/25/24 Range/Units 20:17 03:40 PT 20.8 H 21.4 H (9.0-12.0) Seconds APTT 37 H 34 H (21-31) Seconds CBC 09/24/24 09/25/24 Range/Units 20:17 02:13 WBC 20.14 H 22.07 H (4.8-10.8) K/ul RBC 3.03 L 2.40 L (4.20-5.40) M/uL Hgb 8.4 L 6.5 L* (12.0-16.0) g/dl Hct 29.2 L 22.3 L (37.0-47.0) % Plt Count 529 H 435 H (130-400) K/uL Neut # (Auto) 17.55 H 18.14 H (1.40-6.50) K/uL Lymph # (Auto) 0.94 L 2.12 (1.20-3.40) K/uL [place] # (Auto) 1.11 H 1.00 H (0.11-0.59) K/uL Eos # (Auto) 0.03 0.01 (0.00-0.50) K/uL Baso # (Auto) 0.03 0.03 (0.00-0.20) K/uL Comprehensive Metabolic Panel 09/24/24 09/24/24 09/25/24 Range/Units 20:17 22:46 02:13 Sodium 141 141 142 (136-145) mmol/L Potassium 5.9 H 5.4 H 5.0 (3.5-5.1) mmol/L Chloride 99 105 106 (98-107) mmol/L Carbon Dioxide 29 22 23 (21-32) mmol/L BUN 33 H 35 H 36 H (6-23) mg/dl Creatinine 1.35 H 1.13 1.04 (0.6-1.2) mg/dl Glucose 186 H 183 H 201 H (70-99(Fasting)) mg/dl Calcium 8.4 L 7.6 L 7.4 L (8.6-10.3) mg/dl Direct Bilirubin 0.4 H 0.2 (0-0.2) mg/dl AST 1122 H 2562 H (13-39) U/L ALT 692 H 1391 H (7-52) U/L Alkaline Phosphatase 132 H 103 (34-104) U/L Total Protein 6.1 4.7 L D (6.0-8.3) gm/dl Albumin 3.1 L 2.4 L (3.4-5.0) gm/dl Intake and Output 09/24/24 09/25/24 09/25/24 22:59 06:59 14:59 Intake Total 1502.64 / 2442.157 939.517 / 2442.157 Output Total 180 / 180 Balance 1502.64 / 2262.157 759.517 / 2262.157 Intake: IV 1502.64 / 2442.157 939.517 / 2442.157 D5w and Lactated Ringers 1,000 105 / 105 ml @ 75 mls/hr IV .[id number] [facility] Rx#:[id number] Lactated Ringer's 500 ml @ 999 500 / 500 mls/hr IV .Q31M ONE Rx#: [id number] Norepinephrine/D5w 4 mg In 250 2.64 / 16.157 13.517 / 16.157 ml @ 0.13 MCG/KG/MIN 22.913 mls /hr IV .[id number] [facility] Rx#: [id number] Phytonadione 10 mg In Dextrose 51 / 51 5% 50 ml @ 102 mls/hr IV ONE ONE Rx#:[id number] Sodium Chloride 0.9% 500 ml @ 1500 / 1500 999 mls/hr IV .Q31M ONE Rx#: [id number] Vancomycin HCl 1,000 mg In 270 270 / 270 ml @ 200 mls/hr IV ONE ONE Rx#: [id number] Oral 0 / 0 Intake (Blood Product) Amt 0 / 0 Packed Cells, Leukoreduced 2 0 / 0 Unit [id number] Output: Urine Amount (Catheter) 180 / 180 Temp Sensing Lord 180 / 180 Other: Weight 47 kg 47.2 kg Weight Measurement Method Built in [facility] Built in [facility] Diagnostic Findings EKG 09/24/24 at 22:58:43 Normal sinus rhythm 60 bpm QTc 540 EKG 09/24/24 at 20:46:18 Normal sinus rhythm Abnormal ST-T changes with ST elevation in anterolateral and inferior leads 66 bpm QTc 511 (3) Sepsis Acute respiratory failure type: with hypoxia Sepsis acute organ dysfunction status: with acute organ dysfunction Sepsis type: sepsis due to unspecified organism Severe sepsis acute organ dysfunction type: acute respiratory failure Severe sepsis shock status: without septic shock Qualified Code(s): A41.9 - Sepsis, unspecified organism; R65.20 - Severe sepsis without septic shock; J96.01 - Acute respiratory failure with hypoxia
--- NOTE | 2024-09-25 08:07 | GI REPORT ---
[facility] Patient: JJ TORREZ : 1950 Sex at : Female Age: 74 Years Procedure: Colonoscopy Date: 09/25/2024 Attending Physician: Moses Arevalo MD Referring MD: Referred Self; Gabriel Ponce DO Indications: - Rectal bleeding Medications: Complications: - No immediate complications. Estimated Blood Loss: - Estimated blood loss: None. Procedure: - ASA Grade Assessment: IV - A patient with severe systemic disease that is a constant threat to life. - The adult colonoscope was introduced through the anus and advanced to the descending colon for evaluation. this was the intended extent. - The colonoscopy was performed without difficulty. - The quality of the bowel preparation was evaluated using the BBPS ([place] Bowel Preparation Scale) with scores of: Left Colon = 2. The total BBPS score equals 2. The quality of the bowel preparation was good. - The rectum was photographed. Findings: - A few small-mouthed diverticula were found in the sigmoid colon. - The rectum, sigmoid colon and descending colon appeared normal. Specifically the mucosa of the rectum was perfectly cleaned and no active bleeding seen as well as no potential bleeding site seen. In the descending and sigmoid colon scatted small scyballous stool seen. There was blood tinged fluid in the sigmoid and descending colon but this was more stool than blood. Impression: - Diverticulosis in the sigmoid colon. - The rectum, sigmoid colon and descending colon are normal. - No specimens collected. Recommendation: - May need consideration for completion colonoscopy once stable. Would support until antiplatelet drugs wear off. Procedure Code(s): - 37471-13, Colonoscopy, flexible; diagnostic, including collection of specimen(s) by brushing or washing, when performed (separate procedure) Diagnosis Code(s): - K62.5, Hemorrhage of anus and rectum - K57.30, Diverticulosis of large intestine without perforation or abscess without bleeding CPT(R) - 2023 copyright [employer]. All Rights Reserved. The CPT codes, CCI edits and ICD codes generated are intended as suggestions and were generated based on input data. These codes are preliminary and upon metallic yarn slitting machine operator review may be revised to meet current compliance and payer requirements. The provider is responsible for the final determination of appropriate codes, and modifiers. Dr. Moses Arevalo MD This document has been electronically signed. Note Initiated:09/25/2024 Note Completed:09/25/2024 8:06 AM \\[email or web address]\Central\InterfaceData\Data\Provation\Results\LIVE\[id number]
[2024-09-25] MEDS: POLYETHYLENE (MIRALAX) 17 GM PACK PO SCH (08:41)
[2024-09-25] MEDS: DOCUSATE SODIUM/SENNA 50/8.6MG TAB PO SCH (08:41)
[2024-09-25] MEDS: INSULIN ASPART PER UNIT CHARGE SC SCH (08:47)
[2024-09-25] MEDS: VANCOMYCIN 750 MG in SODIUM CHLORIDE 0.9% 250 ML IV SCH (08:48)
[2024-09-25] MEDS: 4.5GM X1 IV STA (08:48)
[2024-09-25 10:44] LABS: Hematocrit (blood only) 26.8 % (37.0-47.0); Hemoglobin 8.3 g/dl (12.0-16.0)
--- NOTE | 2024-09-25 10:57 | Hospitalist Progress Note ---
Date of Service September 25, 2024 Assessment & Plan (1) Septic shock: (2) Hypovolemic shock: (3) Acute blood loss anemia: (4) Acute and chronic respiratory failure: (5) Urinary tract infection: (6) Shock liver: (7) Acute renal failure: (8) Myocardial infarction due to demand ischemia: (9) PAF (paroxysmal atrial fibrillation): Plan Patient 74-year-old female who presents critically ill with findings consistent with acute septic shock and hypovolemic shock from presumed urinary tract infection and acute blood loss anemia from suspected diverticular bleed. Patient requires intensive care, specialist evaluation, procedures, ventilatory support and frequent monitoring. Continue antibiotics Titrate IV pressors as able Reviewed GI procedure and recommendations Cardiology recommendations reviewed, continue to treat underlying sepsis. Patient has known coronary artery disease, however myocardial infarction most likely due to her septic shock and will treat medically, will have to hold on any anticoagulation due to her significant blood loss and hypovolemic shock Monitor hemoglobin, transfuse as needed, consider maintaining hemoglobin greater than 9 in the setting of coronary artery disease and shock Monitor blood and urine cultures, narrow antibiotics as able Continue ventilatory support, wean ventilator as directed by shredded filler cigar maker machine Continue treatments for chronic COPD Monitor liver functions, suspect acute shock liver in the setting of sepsis and hypotension as evidenced by elevated transaminases and INR. Patient given vitamin K. Attempted to contact patient's daughter, no answer Admission and Anticipated Discharge Date Admission Date: September 24, 2024 Subjective Patient is sedated on the ventilator. Unresponsive. Patient underwent flexible sigmoidoscopy this morning by GI. Patient at the time of my evaluation on 2 pressors for blood pressure support. Receiving blood transfusion. Physical Exam Physical Exam: Constitutional: Sedated on ventilator HEENT: Mucous membranes moist., ET tube, OG tube Lungs: Decreased breath sounds, prolonged expiratory phase, few scattered crackles, no wheezes CV: S1-S2, regular Abdomen: Soft, nontender, nondistended Extremities: No significant edema Neuro: Sedated on ventilator Psych: Sedated Results & Data Results & Data Vital Signs (Past 12 Hours) Vital Signs Temp Pulse Pulse Resp BP BP Pulse Ox 09/25/24 10:44 108/65 09/25/24 10:11 140/87 09/25/24 09:55 145/92 H 09/25/24 09:20 37.2 C 103 H 24 124/97 98 09/25/24 08:57 150/98 H 09/25/24 08:51 37.1 C 110 H 20 145/101 H 98 09/25/24 08:08 126/84 09/25/24 08:06 37.1 C 110 H 20 09/25/24 08:05 111/80 09/25/24 08:03 37.1 C 105 H 20 09/25/24 08:03 111/87 09/25/24 07:57 131/95 09/25/24 07:55 114/87 09/25/24 07:51 37.1 C 110 H 20 145/101 H 98 09/25/24 07:50 154/106 H 09/25/24 07:48 157/108 H 09/25/24 07:48 37.1 C 119 H 20 09/25/24 07:48 145/101 H 09/25/24 07:46 110 H 20 150/98 H 100 09/25/24 07:45 37.1 C 99 H 20 09/25/24 07:45 132/96 09/25/24 07:39 37.0 C 103 H 20 94 09/25/24 07:21 36.7 C 111 H 20 132/96 97 09/25/24 07:20 99 H 20 96 09/25/24 07:06 36.6 C 104 H 18 121/78 93 09/25/24 07:03 37.2 C 109 H 20 97 09/25/24 06:50 37.6 C H 97 H 25 H 107/64 98 09/25/24 06:30 37.6 C H 100 H 20 97 09/25/24 06:03 37.6 C H 70 20 97 09/25/24 05:00 37.2 C 74 20 98 09/25/24 04:00 09/25/24 03:39 36.9 C 69 20 96 09/25/24 03:12 36.5 C 70 20 97 09/25/24 02:30 35.8 C L 66 20 96 09/25/24 02:21 60 20 98 09/25/24 02:00 35.3 C L 59 L 20 98 09/25/24 01:50 60 20 98 09/25/24 01:33 34.8 C L 58 L 20 99 09/25/24 01:09 34.4 C L 58 L 20 99 09/25/24 00:30 33.9 C L 54 L 20 100 09/25/24 00:00 09/25/24 00:00 55 L 09/24/24 23:54 33.9 C L 52 L 20 100 09/24/24 23:12 33.6 C L 53 L 20 100 09/24/24 23:00 57 L 20 100 O2 Del Method O2 Flow Rate FiO2 09/25/24 10:44 09/25/24 10:11 09/25/24 09:55 09/25/24 09:20 3 09/25/24 08:57 09/25/24 08:51 3 09/25/24 08:08 09/25/24 08:06 09/25/24 08:05 09/25/24 08:03 09/25/24 08:03 09/25/24 07:57 09/25/24 07:55 09/25/24 07:51 3 09/25/24 07:50 09/25/24 07:48 09/25/24 07:48 09/25/24 07:48 09/25/24 07:46 Mechanical Vent 09/25/24 07:45 09/25/24 07:45 09/25/24 07:39 09/25/24 07:21 3 09/25/24 07:20 30 09/25/24 07:06 09/25/24 07:03 09/25/24 06:50 09/25/24 06:30 09/25/24 06:03 09/25/24 05:00 Mechanical Vent 09/25/24 04:00 09/25/24 03:39 Mechanical Vent 09/25/24 03:12 Mechanical Vent 09/25/24 02:30 Mechanical Vent 09/25/24 02:21 30 09/25/24 02:00 Mechanical Vent 09/25/24 01:50 Mechanical Vent 09/25/24 01:33 Mechanical Vent 09/25/24 01:09 Mechanical Vent 09/25/24 00:30 Mechanical Vent 30 09/25/24 00:00 30 09/25/24 00:00 09/24/24 23:54 Mechanical Vent 30 09/24/24 23:12 Mechanical Vent 30 09/24/24 23:00 30 Diagnostic Findings Reviewed imaging, laboratory and diagnostic studies. Pertinent findings as below. Sigmoidoscopy report reviewed, no active bleeding, diverticular disease WBC 22.07 Hemoglobin 8.3 post PRBC Platelets of 435 INR 2.1 pH 7.31 BUN 36 Creatinine 1.04 Glucose 201 Lactate 8.3 Ionized calcium 1.01 AST 2562 ALT 1391 Troponin 963 Procalcitonin 4.5 Urinalysis reviewed Blood and urine cultures pending
--- NOTE | 2024-09-25 11:58 | Electrocardiogram Report ---
Test Reason : Blood Pressure : */* mmHG Vent. Rate : 60 BPM Atrial Rate : 60 BPM P-R Int : 170 ms QRS Dur : 72 ms QT Int : 540 ms P-R-T Axes : 83 81 18 degrees QTcB Int : 540 ms Normal sinus rhythm Prolonged QT Abnormal ECG When compared with ECG of 24-Sep-2024 20:46, (unconfirmed) ST no longer elevated in Inferior leads ST no longer elevated in Anterolateral leads T wave inversion no longer evident in Anterior leads Confirmed by Bo Quintero ([id number]) on 09/25/2024 11:58:03 AM Referred By: REFERRED SELF Confirmed By: Bo Quintero
[2024-09-25] MEDS: CALCIUM GLUCONATE 1,000 MG/60 ML BAG IV SCH (11:59)
--- NOTE | 2024-09-25 12:00 | Electrocardiogram Report ---
Test Reason : Blood Pressure : */* mmHG Vent. Rate : 66 BPM Atrial Rate : 66 BPM P-R Int : 172 ms QRS Dur : 76 ms QT Int : 488 ms P-R-T Axes : 74 82 84 degrees QTcB Int : 511 ms Normal sinus rhythm ST elevation consider anterolateral injury or acute infarct ST elevation consider inferior injury or acute infarct Prolonged QT ACUTE VT / STEMI Consider right ventricular involvement in acute inferior infarct Abnormal ECG When compared with ECG of 24-Sep-2024 18:45, (unconfirmed) Significant changes have occurred Confirmed by Bo Quintero ([id number]) on 09/25/2024 11:59:51 AM Referred By: REFERRED SELF Confirmed By: Bo Quintero
--- NOTE | 2024-09-25 12:07 | XCELERA ---
[id number] \\[id number]
[2024-09-25] MEDS: PIPERACILLIN/TAZOBACTAM 4.5 GM/100 ML BAG IV SCH (12:27)
[2024-09-25] MEDS: METOPROLOL TARTRATE 1 MG/ML VIAL IV STA (15:00)
[2024-09-25 15:13] LABS: Hematocrit (blood only) 27.7 % (37.0-47.0); Hemoglobin 8.7 g/dl (12.0-16.0)
[2024-09-25] MEDS: MAGNESIUM SULFATE / D5W 1 GM/100 ML BAG IV SCH (15:28)
[2024-09-25] MEDS: ALBUMIN 5% 250 ML IV ONE (15:31)
[2024-09-25 15:51] LABS: Anion Gap 7.0 (3-11); Blood Urea Nitrogen 39.0 mg/dl (6-23); Calcium 8.1 mg/dl (8.6-10.3); Carbon Dioxide 27.0 mmol/L (21-32); Chloride 105.0 mmol/L (98-107); Creatinine Clr Calc Pharmacy 31.0 ml/min; Glucose 148.0 mg/dl (70-99(Fasting)); Magnesium 2.1 mg/dl (1.7-2.4); Potassium 4.3 mmol/L (3.5-5.1); Sodium 139.0 mmol/L (136-145)
--- NOTE | 2024-09-25 16:38 | Critical Care Progress Note ---
Date of Service September 25, 2024 Assessment & Plan (1) Septic shock: (2) Rectal bleeding: (3) Acute and chronic respiratory failure: (4) Urinary tract infection: (5) Severe sepsis: (6) Acidosis: (7) Respiratory failure: (8) Atrial fibrillation with RVR: Plan Kae Johnston is a 74-year-old female with PMHX of COPD on 3L NC, tobacco use, HTN/HLD, CAD with inferior wall STEMI 2022, Paroxysmal a fib, hypothyroidism who presented to [facility] ED after being unresponsive with hypoglycemia and hypotension concerning for sepsis. Plan Reason Critically Ill: 1. Severe sepsis 2. Acute on chronic combined respiratory failure 3. GUTIERREZ on CKD 4. Urinary tract infection with chronic lord 5. Shock liver 6. Lactic acidosis 7. Respiratory acidosis, resolved 8. Protein calorie malnutrition 9. Failure to thrive Neuro - [facility] ICU: Unable to assess due to sedation RASS GOAL 0 to -1 Propofol/Fentanyl gtt weaned down to 10 of prop and 25 of fentanyl. Hold Gabapentin, Alendronate Cardiac - STEMI on EKG, resolved. 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 Talavera. Consult Cardiology, appreciate continued recommendations Eliquis, Plavix held MAP goal > 65mmHg Hold statin with LFTs Low-dose heparin infusion, held for now with rectal bleeding Recheck coags in AM POCUS on arrival to ICU Respiratory - Hypoxic respiratory failure Current vent settings: VC-AC 30% [id number] 5 Daily SAT/SBT SpO2 goal 88-92% DuoNeb scheduled, Albuterol PRN HOB 30, pulmonary hygiene GI - Rectal bleeding appears hemorrhoidal. Appears to have large burden stool on CT AP. GI scoped 09/25/2024 with no indetified source of bleeding. Diet: NPO except meds via OGT SUP: H2B Bowel regimen: Miralax, Senna, Colace Trend LFTs RENAL/LYTES - Continued IVF as guided by POCUS Trend electrolytes Lord for accurate I/Os D5LR gtt ENDO - BG 140-180 per SCCM guidelines ISS if needed while inpatient Levoxyl HEME - DOAC and antiplatelets held Start heparin infusion as clinically feasible Trend coags ID - Continue cefepime/vancomycin, de-escalate as guided by culture data UTI in August 2024 susceptible to cefepime BC x2 pending, MRSA nares pending, procalcitonin elevated, UA + LINES/TUBES/DRAINS - R femoral CVC (Day #1) L radial arterial line (Day #1) Lord (Day #1) ETT (Day #1) OGT (Day #1) DVT PROPHYLAXIS - Held, start heparin infusion as able Pepcid SCD I have personally spent 52 minutes of critical care time in the direct management of this patient. This is a life/limb threatening event. This includes time spent evaluating patient, direct bedside care, chart review, placing orders, interpretation of diagnostic studies, discussion with consultants, patient, and family members, as well as other required patient management activities. This time is exclusive of all separately billable procedures, and teaching time and separate from and in addition to any other critical care service time. Thank you for allowing us to participate in the care of this patient. Please refer to my attending physician's documentation for any further recommendations. Admission and Anticipated Discharge Date Admission Date: September 24, 2024 Subjective Patient admitted yesterday after altered mental status. BG 14 and SBP in the 80's. Patient given dextrose with BG improvement. Given 2 liters crystalloid for sepsis protocol ad started on broad spectrum ABX. 12 lead EKG initially concerning for STEMI no intervention due to ST changes likely related to sepsis. Patient was intubated for airway protection. CTA head negative. Patient brought to ICU and found to have rectal bleeding. CTA abdomen and pelvis showed a distended rectum with hyperdense material in the lumen and focal arterial phase hyperdensity suggesting active arterial leak. GI performed at bedside this am and performed a colonoscopy a large clot was removed bu there was no identified source of bleeding. Remains on levo and vasopressin gtt. Review of Systems Review of Systems: Unobtainable due to endotracheal tube Physical Exam Constitutional: + ill appearing, + thin, + frail appeari ng and + disheveled Eyes: PERRL, conjunctivae normal, anicteric sclerae ENMT: Bloody mucosa Neck: trachea midline, no thyromegaly Respiratory: symmetric chest movement Auscultation: + diminished lung sounds; no crackles, no rales and no wheezes Cardiovascular: Rate/Rhythm: regular rate and regular rhythm Heart Sounds: no murmur Vessels: no JVD and no carotid bruit Extremities: normal capillary refill; no edema Gastrointestinal (Abdomen): normal bowel sounds, soft, nontender, no hepatosplenomegaly Musculoskeletal: Muscle wasting Skin: Scattered ecchymosis and small lesions. Hematoma at site of IV attempt. Neurologic: Unresponsive/sedated. Genitourinary: Lord exchange draining dark, sedimented urine Results & Data Results & Data Vital Signs (Past 12 Hours) Vital Signs Temp Pulse Pulse Resp BP BP Pulse Ox 09/25/24 16:00 141 H 09/25/24 16:00 09/25/24 15:15 141 H 09/25/24 15:00 135 H 09/25/24 13:37 80/52 L 09/25/24 13:30 91/62 L 09/25/24 13:30 91/62 L 09/25/24 13:18 37.0 C 122 H 20 100 09/25/24 13:00 105/79 09/25/24 13:00 37.0 C 116 H 20 100 09/25/24 12:30 94/63 L 09/25/24 12:30 94/63 L 09/25/24 12:24 36.9 C 109 H 20 100 09/25/24 12:15 36.9 C 112 H 20 100 09/25/24 12:00 101/48 L 09/25/24 12:00 09/25/24 11:54 36.8 C 125 H 20 100 09/25/24 11:48 80/51 L 09/25/24 11:30 108/73 09/25/24 11:30 108/73 09/25/24 11:30 108/73 09/25/24 11:30 108/73 09/25/24 11:21 36.8 C 118 H 20 100 09/25/24 11:03 36.9 C 105 H 20 100 09/25/24 11:00 107/75 09/25/24 11:00 107/75 09/25/24 11:00 107/75 09/25/24 11:00 99 H 20 96 09/25/24 10:57 36.9 C 107 H 20 09/25/24 10:44 108/65 09/25/24 10:30 114/77 09/25/24 10:30 114/77 09/25/24 10:30 114/77 09/25/24 10:30 37.0 C 110 H 20 09/25/24 10:11 140/87 09/25/24 10:03 37.1 C 111 H 21 09/25/24 10:00 139/108 H 09/25/24 10:00 139/108 H 09/25/24 10:00 139/108 H 09/25/24 09:55 145/92 H 09/25/24 09:40 152/118 H 09/25/24 09:40 152/118 H 09/25/24 09:39 37.2 C 105 H 20 09/25/24 09:38 132/85 09/25/24 09:38 132/85 09/25/24 09:33 133/90 09/25/24 09:25 116/88 09/25/24 09:23 139/108 H 09/25/24 09:20 37.2 C 103 H 24 124/97 98 09/25/24 09:17 148/97 H 09/25/24 09:15 37.2 C 118 H 20 09/25/24 09:15 113/82 09/25/24 09:15 113/82 09/25/24 09:08 123/86 09/25/24 08:57 150/98 H 09/25/24 08:51 37.1 C 110 H 20 145/101 H 98 09/25/24 08:08 126/84 09/25/24 08:06 37.1 C 110 H 20 09/25/24 08:05 111/80 09/25/24 08:03 37.1 C 105 H 20 09/25/24 08:03 111/87 09/25/24 08:00 09/25/24 08:00 106 H 09/25/24 08:00 09/25/24 07:57 131/95 09/25/24 07:55 114/87 09/25/24 07:51 37.1 C 110 H 20 145/101 H 98 09/25/24 07:50 154/106 H 09/25/24 07:48 157/108 H 09/25/24 07:48 37.1 C 119 H 20 09/25/24 07:48 145/101 H 09/25/24 07:46 110 H 20 150/98 H 100 09/25/24 07:45 37.1 C 99 H 20 09/25/24 07:45 132/96 06/15/25 07:39 37.0 C 103 H 20 94 09/25/24 07:21 36.7 C 111 H 20 132/96 97 09/25/24 07:20 99 H 20 96 09/25/24 07:06 36.6 C 104 H 18 121/78 93 09/25/24 07:03 37.2 C 109 H 20 97 09/25/24 06:50 37.6 C H 97 H 25 H 107/64 98 09/25/24 06:30 37.6 C H 100 H 20 97 09/25/24 06:03 37.6 C H 70 20 97 09/25/24 05:00 37.2 C 74 20 98 O2 Del Method O2 Flow Rate FiO2 09/25/24 16:00 09/25/24 16:00 30 09/25/24 15:15 09/25/24 15:00 09/25/24 13:37 09/25/24 13:30 09/25/24 13:30 09/25/24 13:18 09/25/24 13:00 09/25/24 13:00 09/25/24 12:30 09/25/24 12:30 09/25/24 12:24 09/25/24 12:15 09/25/24 12:00 09/25/24 12:00 09/25/24 11:54 09/25/24 11:48 09/25/24 11:30 09/25/24 11:30 09/25/24 11:30 09/25/24 11:30 09/25/24 11:21 09/25/24 11:03 09/25/24 11:00 09/25/24 11:00 09/25/24 11:00 09/25/24 11:00 30 09/25/24 10:57 09/25/24 10:44 09/25/24 10:30 09/25/24 10:30 09/25/24 10:30 09/25/24 10:30 09/25/24 10:11 09/25/24 10:03 09/25/24 10:00 09/25/24 10:00 09/25/24 10:00 09/25/24 09:55 09/25/24 09:40 09/25/24 09:40 09/25/24 09:39 09/25/24 09:38 09/25/24 09:38 09/25/24 09:33 09/25/24 09:25 09/25/24 09:23 09/25/24 09:20 3 09/25/24 09:17 09/25/24 09:15 Mechanical Vent 30 09/25/24 09:15 09/25/24 09:15 09/25/24 09:08 09/25/24 08:57 09/25/24 08:51 3 09/25/24 08:08 09/25/24 08:06 09/25/24 08:05 09/25/24 08:03 09/25/24 08:03 09/25/24 08:00 Mechanical Vent 30 09/25/24 08:00 09/25/24 08:00 30 09/25/24 07:57 09/25/24 07:55 09/25/24 07:51 3 09/25/24 07:50 09/25/24 07:48 09/25/24 07:48 09/25/24 07:48 09/25/24 07:46 Mechanical Vent 09/25/24 07:45 09/25/24 07:45 09/25/24 07:39 09/25/24 07:21 3 09/25/24 07:20 30 09/25/24 07:06 09/25/24 07:03 09/25/24 06:50 09/25/24 06:30 09/25/24 06:03 09/25/24 05:00 Mechanical Vent 30 Critical Care Results & Data Vital Signs (Past 12 Hours) Vital Signs Temp Pulse Pulse Resp BP BP Pulse Ox 09/25/24 16:35 37.0 C 135 H 20 154/97 H 100 09/25/24 16:00 141 H 09/25/24 16:00 09/25/24 15:15 141 H 09/25/24 15:00 135 H 09/25/24 13:37 80/52 L 09/25/24 13:30 91/62 L 09/25/24 13:30 91/62 L 09/25/24 13:18 37.0 C 122 H 20 100 09/25/24 13:00 105/79 09/25/24 13:00 37.0 C 116 H 20 100 09/25/24 12:30 94/63 L 09/25/24 12:30 94/63 L 09/25/24 12:24 36.9 C 109 H 20 100 09/25/24 12:15 36.9 C 112 H 20 100 09/25/24 12:00 101/48 L 09/25/24 12:00 09/25/24 11:54 36.8 C 125 H 20 100 09/25/24 11:48 80/51 L 09/25/24 11:30 108/73 09/25/24 11:30 108/73 09/25/24 11:30 108/73 09/25/24 11:30 108/73 09/25/24 11:21 36.8 C 118 H 20 100 09/25/24 11:03 36.9 C 105 H 20 100 09/25/24 11:00 107/75 09/25/24 11:00 107/75 09/25/24 11:00 107/75 09/25/24 11:00 99 H 20 96 09/25/24 10:57 36.9 C 107 H 20 09/25/24 10:44 108/65 09/25/24 10:30 114/77 09/25/24 10:30 114/77 09/25/24 10:30 114/77 09/25/24 10:30 37.0 C 110 H 20 09/25/24 10:11 140/87 09/25/24 10:03 37.1 C 111 H 21 09/25/24 10:00 139/108 H 09/25/24 10:00 139/108 H 09/25/24 10:00 139/108 H 09/25/24 09:55 145/92 H 09/25/24 09:40 152/118 H 09/25/24 09:40 152/118 H 09/25/24 09:39 37.2 C 105 H 20 09/25/24 09:38 132/85 09/25/24 09:38 132/85 09/25/24 09:33 133/90 09/25/24 09:25 116/88 09/25/24 09:23 139/108 H 09/25/24 09:20 37.2 C 103 H 24 124/97 98 09/25/24 09:17 148/97 H 06/15/25 09:15 37.2 C 118 H 20 09/25/24 09:15 113/82 09/25/24 09:15 113/82 09/25/24 09:08 123/86 09/25/24 08:57 150/98 H 09/25/24 08:51 37.1 C 110 H 20 145/101 H 98 09/25/24 08:08 126/84 09/25/24 08:06 37.1 C 110 H 20 09/25/24 08:05 111/80 09/25/24 08:03 37.1 C 105 H 20 09/25/24 08:03 111/87 09/25/24 08:00 09/25/24 08:00 106 H 09/25/24 08:00 09/25/24 07:57 131/95 09/25/24 07:55 114/87 09/25/24 07:51 37.1 C 110 H 20 145/101 H 98 09/25/24 07:50 154/106 H 09/25/24 07:48 157/108 H 09/25/24 07:48 37.1 C 119 H 20 09/25/24 07:48 145/101 H 09/25/24 07:46 110 H 20 150/98 H 100 09/25/24 07:45 37.1 C 99 H 20 09/25/24 07:45 132/96 09/25/24 07:39 37.0 C 103 H 20 94 09/25/24 07:21 36.7 C 111 H 20 132/96 97 09/25/24 07:20 99 H 20 96 09/25/24 07:06 36.6 C 104 H 18 121/78 93 09/25/24 07:03 37.2 C 109 H 20 97 09/25/24 06:50 37.6 C H 97 H 25 H 107/64 98 09/25/24 06:30 37.6 C H 100 H 20 97 09/25/24 06:03 37.6 C H 70 20 97 09/25/24 05:00 37.2 C 74 20 98 O2 Del Method O2 Flow Rate FiO2 09/25/24 16:35 09/25/24 16:00 09/25/24 16:00 30 09/25/24 15:15 09/25/24 15:00 09/25/24 13:37 09/25/24 13:30 09/25/24 13:30 09/25/24 13:18 09/25/24 13:00 09/25/24 13:00 09/25/24 12:30 09/25/24 12:30 09/25/24 12:24 09/25/24 12:15 09/25/24 12:00 09/25/24 12:00 30 09/25/24 11:54 09/25/24 11:48 09/25/24 11:30 09/25/24 11:30 09/25/24 11:30 09/25/24 11:30 09/25/24 11:21 09/25/24 11:03 09/25/24 11:00 09/25/24 11:00 09/25/24 11:00 09/25/24 11:00 30 09/25/24 10:57 09/25/24 10:44 09/25/24 10:30 09/25/24 10:30 09/25/24 10:30 09/25/24 10:30 09/25/24 10:11 09/25/24 10:03 09/25/24 10:00 09/25/24 10:00 09/25/24 10:00 09/25/24 09:55 09/25/24 09:40 09/25/24 09:40 09/25/24 09:39 09/25/24 09:38 09/25/24 09:38 09/25/24 09:33 09/25/24 09:25 09/25/24 09:23 09/25/24 09:20 3 09/25/24 09:17 09/25/24 09:15 Mechanical Vent 30 09/25/24 09:15 09/25/24 09:15 09/25/24 09:08 09/25/24 08:57 09/25/24 08:51 3 09/25/24 08:08 09/25/24 08:06 09/25/24 08:05 09/25/24 08:03 09/25/24 08:03 09/25/24 08:00 Mechanical Vent 30 09/25/24 08:00 09/25/24 08:00 30 09/25/24 07:57 09/25/24 07:55 09/25/24 07:51 3 09/25/24 07:50 09/25/24 07:48 09/25/24 07:48 09/25/24 07:48 09/25/24 07:46 Mechanical Vent 09/25/24 07:45 09/25/24 07:45 09/25/24 07:39 09/25/24 07:21 3 09/25/24 07:20 30 09/25/24 07:06 09/25/24 07:03 09/25/24 06:50 09/25/24 06:30 09/25/24 06:03 09/25/24 05:00 Mechanical Vent 30 Lab & Micro Results (Past 24 Hours) RBC 2.40 M/uL (4.20-5.40) L 09/25/24 WBC 22.07 K/ul (4.8-10.8) H 09/25/24 Hgb 8.7 g/dl (12.0-16.0) L 09/25/24 Hct 27.7 % (37.0-47.0) L 09/25/24 MCV 92.9 fL (80.0-100.0) 09/25/24 MCH 27.1 pg (25.0-34.0) 09/25/24 MCHC 29.1 g/dL (32.0-36.0) L 09/25/24 RDW Standard Deviation 60.8 fL (36.4-46.3) H 09/25/24 RDW Coefficient of Variation 17.6 % (11.5-14.5) H 09/25/24 Plt Count 435 K/uL (130-400) H 09/25/24 MPV 9.1 fL (9.4-12.4) L 09/25/24 Nucleated Red Blood Cells % (auto) 0.1 % 09/24 Nucleated RBC Absolute Count (auto) 0.02 K/uL (0.00-0.12) 0 09/24/24 Neutrophils (%) (Auto) 82.3 % 09/25/24 Lymphocytes (%) (Auto) 9.6 % 09/25/24 Monocytes # (Auto) 1.00 K/uL (0.11-0.59) H 09/25/24 Eosinophils # (Auto) 0.01 K/uL (0.00-0.50) 09/25/24 Immature Granulocyte % (Auto) 3.5 % 09/25/24 Neutrophils # (Auto) 18.14 K/uL (1.40-6.50) H 09/25/24 Lymphocytes # (Auto) 2.12 K/uL (1.20-3.40) 09/25/24 Monocytes # (Auto) 1.00 K/uL (0.11-0.59) H 09/25/24 Eosinophils # (Auto) 0.01 K/uL (0.00-0.50) 09/25/24 Basophils # (Auto) 0.03 K/uL (0.00-0.20) 09/25/24 Immature Granulocyte # (Auto) 0.77 K/uL (0.01-0.20) H 09/25 Polychromasia 1+ 09/25/24 Na 139 mmol/L (136-145) 09/25/24 K 4.3 mmol/L (3.5-5.1) 09/25/24 Cl 105 mmol/L (98-107) 09/25/24 CO2 27 mmol/L (21-32) 09/25/24 Anion Gap 7 (3-11) 09/25/24 BUN 39 mg/dl (6-23) H 09/25/24 Creatinine 1.17 mg/dl (0.6-1.2) 09/25/24 BUN/Creatinine Ratio 33.3 (10-20) H 09/25/24 Glu 148 mg/dl (70-99(Fasting)) H 09/25/24 Ca 8.1 mg/dl (8.6-10.3) L 09/25/24 Phosphorus Level 4.1 mg/dl (2.5-4.9) 09/25/24 Total Bilirubin 0.5 mg/dl (0.2-1.0) 09/25/24 Direct Bilirubin 0.2 mg/dl (0-0.2) 09/25/24 AST 2562 U/L (13-39) H 09/25/24 ALT 1391 U/L (7-52) H 09/25/24 Alkaline Phosphatase 103 U/L (34-104) 09/25/24 TP 4.7 gm/dl (6.0-8.3) L 09/25/24 Albumin 2.4 gm/dl (3.4-5.0) L 09/25/24 Mg 2.1 mg/dl (1.7-2.4) 09/25/24 14:58 Calcium Level 8.1 mg/dl (8.6-10.3) L 09/25/24 14:58 Prothromb Time International Ratio 2.1 (0.9-1.1) H 09/25/24 03 :40 Donnie Test NA 09/25/24 03:04 Diagnostic Findings (Past 24 Hours) Chest X-Ray 09/24/24 18:42 Chest radiograph, one view History: Sepsis Comparison: 08/22/2024 Findings: Single AP view of the chest performed. No focal consolidation or pleural effusion. No pneumothorax. The lungs are emphysematous. The cardiomediastinal silhouette is within normal limits. Normal pulmonary vascularity. No evidence for lymphadenopathy. No visualized bony or soft tissue abnormality. Impression: Normal chest radiograph. The lower chest is not completely in the [id number]. Electronically signed by Meliton Blackwell 09-24-2024 8:[address] 09/24/24 18:51 Exam(s): CT HEAD Without Contrast EXAM: CT Head Without Intravenous Contrast CLINICAL HISTORY: Altered mental status TECHNIQUE: Axial computed tomography images of the head/brain without intravenous contrast. CTDI is 37 mGy and DLP is 702 mGy-cm. Automated exposure control was utilized for the study. A dose lowering technique was utilized adhering to the principles of ALARA. COMPARISON: No relevant prior studies available. FINDINGS: Brain: No intracranial hemorrhage, mass-effect or midline shift. No abnormal extra axial fluid. No evidence of acute infarct. 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 Ventricles: Unremarkable. No ventriculomegaly. Bones/joints: Unremarkable. No acute fracture. Soft tissues: Unremarkable. Sinuses: Unremarkable as visualized. No acute sinusitis. Mastoid air cells: Unremarkable as visualized. No mastoid effusion. IMPRESSION: No acute intracranial finding. Electronically signed by: Gardenia Zheng MD 09/25/24 01:17 AM Chest X-Ray 09/24/24 21:34 Exam(s): XR CXR 1 VIEW EXAM: XR Chest, 1 View CLINICAL HISTORY: Reason for exam: intubation. TECHNIQUE: Frontal view of the chest. COMPARISON: X-ray chest: 09/24/2024 and 1926 hrs. FINDINGS: A suboptimally placed endotracheal tube seen with the tip abutting the right main bronchus. This needs to be retracted by pulling at least 3 cm. Lungs: Hyperinflated lungs/COPD bilateral perihilar mildly increased interstitial markings seen in both lung vazquez, more in the left lower lobe.. No consolidation. Pleural space: No pleural effusion. No pneumothorax. Heart: Atherosclerotic tortuosity of the aortic arch. No cardiomegaly. Mediastinum: Normal mediastinal contour. Bones/joints: Osteopenia.. No acute fracture. Possibly rotator cuff pathology. A small metallic anchor clip present laterally over the right humeral head.. IMPRESSION: A suboptimally placed endotracheal tube with the tip proximally at the right main bronchus. This needs to be retracted prior to its use. No consolidation, pulmonary vascular congestion or pleural effusion seen in the visualized lungs. . Electronically signed by: Kayden Salcedo MD, DABNiels 09/24/24 23:23 PM Abdomen/Pelvis CT 09/24/24 22:00 Exam(s): CT ABDOMEN + PELVIS Without Contrast EXAM: CT Abdomen and Pelvis Without Intravenous Contrast CLINICAL HISTORY: Ureteral stent, septic shock. TECHNIQUE: Axial computed tomography images of the abdomen and pelvis without intravenous contrast. CTDI is 37 mGy and DLP is 702 mGy-cm. Automated exposure control was utilized for the study. A dose lowering technique was utilized adhering to the principles of ALARA. COMPARISON: No relevant prior studies available. FINDINGS: Lung bases: Unremarkable. No mass. No consolidation. ABDOMEN: Liver: Unremarkable. Gallbladder and bile ducts: Unremarkable. No calcified stones. No ductal dilation. Pancreas: Unremarkable. No ductal dilation. Spleen: Unremarkable. No splenomegaly. Adrenals: Unremarkable. No mass. Kidneys and ureters: Minimal right hydronephrosis with a ureteral stent in good position. Left kidney is unremarkable. Stomach and bowel: The rectum is fluid-filled. There is prominence of the wall throughout the colon. No obstruction. No mucosal thickening. PELVIS: Appendix: No findings to suggest acute appendicitis. Bladder: Thickening of the urinary bladder wall could relate to nondistention or cystitis. A Lord catheter is present. No stones. Reproductive: Unremarkable as visualized. ABDOMEN and PELVIS: Intraperitoneal space: Unremarkable. No free air. No significant fluid collection. Bones/joints: Age-indeterminate severe compression fracture of T11. No dislocation. Soft tissues: Unremarkable. Vasculature: Abdominal aortic aneurysm measuring 3.1 cm in maximum diameter. Lymph nodes: Unremarkable. No enlarged lymph nodes. Tubes, lines and devices: The NG tube side port is at the gastroesophageal junction. IMPRESSION: 1. Minimal right hydronephrosis with a ureteral stent in good position. 2. Thickening of the urinary bladder wall could relate to nondistention or cystitis. 3. The rectum is fluid-filled. Question diarrheal state. 4. There is prominence of the wall throughout the colon. This is likely infectious or inflammatory. 5. Abdominal aortic aneurysm measuring 3.1 cm in maximum diameter. Recommend abdomen/pelvis CT or MR imaging follow-up in 3 years. 6. Age-indeterminate severe compression fracture of T11. 7. The NG tube side port is at the gastroesophageal junction. Advancement is recommended. Electronically signed by: Gardenia Zheng MD 09/25/24 01:24 AM Chest X-Ray 09/24/24 22:06 Exam(s): XR CXR 1 VIEW EXAM: XR Chest, 1 View CLINICAL HISTORY: Reason for exam: ETT and OGT. TECHNIQUE: Frontal view of the chest. COMPARISON: X-ray chest: 09/24/2024 at 2135 hrs. FINDINGS: Again noted the tip of the endotracheal tube is abutting most proximally the right main bronchus. A NG tube tip is seen in topography of the gastric fundus. Lungs: Hyperinflated lungs. Bilateral bronchial wall thickening. No consolidation. Pleural space: No pleural effusion. No pneumothorax. Heart: No cardiomegaly. Mediastinum: Significant atherosclerotic tortuosity of the thoracic aorta. Normal mediastinal contour. Bones/joints: Osteopenia. No acute fracture. IMPRESSION: An adequately placed NG tube. Again noted a suboptimally placed endotracheal tube. . Electronically signed by: Kayden Salcedo MD, DABR 09/25/24 00:41 AM Abdomen/Pelvis CTA 09/25/24 03:20 EXAM: CT angio abd pelvis wo/w con CLINICAL HISTORY: Lower gastrointestinal bleed, shock TECHNIQUE: Contrast enhanced thin slice CT angiography scan of the abdominal aorta was performed with intravenous contrast. Angiographic images were processed, 3D MIP images were acquired for interpretation. Contiguous axial images were obtained. Reformatted coronal and sagittal images were also reviewed. If IV contrast material had not been administered, the likelihood of detecting abnormalities relevant to the patients condition would have been substantially decreased. CT scan was performed according to ALARA (as low as reasonable achievable). 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 FINDINGS: Rectum is distended with mildly hyperdense material. On arterial phase images, few foci of hyperdensity are seen in the right lower lateral wall of the rectum; not previously seen on plain images. Right kidney shows a simple cortical cyst measuring 31mm in interpolar region. Stent is seen in the right ureter with proximal end in right renal pelvis and distal end in the urinary bladder. Urinary bladder is empty and shows Lord's catheter bulb in situ. Nasogastric tube is seen in situ with its tip in the body of stomach. Atherosclerotic wall thickening and calcification is seen in the aorta and its major branches. Abdominal aorta is normal in course, calibre and opacification. Fusiform dilatation of infra-renal abdominal aorta of diameter 3.2cm, for a length of 3.4cm. Origin of coeliac artery, superior mesenteric artery , bilateral main renal and lumbar arteries are normal with no hemodynamically significant ostial stenosis noted. Bilateral common, external and internal iliac arteries are normal in course, caliber and opacification. Solid abdominal organs including liver, spleen and pancreas reveal no significant abnormality. Bowel loops are otherwise grossly unremarkable. No evidence of ascites. IMPRESSION: 1. Distended rectum with hyperdense material in the lumen and focal arterial phase hyperdensity in right lateral lower rectal wall suggesting active arterial leak. 2. Right renal simple cortical cyst - persistent. 3. Right ureteric stent. Previously identified right hydroureteronephrosis is not seen in this evaluation. 4. Persistent fusiform dilatation of infra-renal abdominal aorta of diameter 3.2cm, for a length of 3.4cm. Electronically signed by Mervin Stewart 09-25-2024 05:35 AM Liver Ultrasound 09/25/24 03:32 EXAM: US liver CLINICAL HISTORY: Shock, liver TECHNIQUE: Ultrasound examination of the RUQ was performed in real-time. COMPARISON: CT study done earlier, 09/25/2024 FINDINGS: Liver: Liver size: 12.9cm. Liver appears normal in size, with coarse echotexture and periportal tract thickening No evidence of focal lesions, cysts, or masses. Hepatic vasculature appears normal. Gallbladder: surgically removed Biliary Tree: Common bile duct diameter: 5mm. The common bile duct is within normal limits in caliber and not dilated. No evidence of choledocholithiasis or biliary obstruction. Right Kidney: Not fully seen due to overlying bowel gas, and the patient is unable to hold breath/decubitus. Increased renal parenchymal echogenicity Two cortical cysts, the largest measures 2.4x2.4x1.7cm, the smaller one measures about 0.9x0.6x0.7 cm Pancreas: head and body appear unremarkable. The tail is not visualized due to bowel gases IMPRESSION: 1. Heterogeneous liver parenchyma with periportal tract thickening could suggest chronic parenchymal liver disease 2. Echogenic grade I renal parenchyma could suggest chronic medical renal disease 3. Two right renal cortical cysts. 4. No interval changes. RECOMMENDATIONS: Clinical correlation with symptoms and further evaluation, including liver function and renal function tests as indicated. Electronically signed by Fred Cerda 09-25-2024 07:51 AM I & O Totals 24 Hours 09/24/24 09/25/24 09/26/24 06:59 06:59 06:59 Intake Total 2463.810 / 2463.810 2078.790 / 2078.790 Output Total 240 / 240 110 / 110 Balance 2223.810 / 2223.810 1968.790 / 1968.790 Cumulative 09/24/24 18:21 thru 09/25/24 16:35 Intake Total 4542.600 Output Total 350 Balance 4192.600 RT Ventilator Mngmt (Last Documented) Ventilator Ordered Settings Ventilator Support Mode Assist Control 09/25/24 16:00 Respiratory Rate 20 09/25/24 16:35 Ventilator Tidal Volume 330 09/25/24 16:00 Setting Minute Ventilation 6.6 09/25/24 11:00 Positive End Expiratory 5 09/25/24 16:00 Pressure Fraction of Inspired Oxygen 30 09/25/24 16:00 Ventilator - PT Measurements Respiratory Rate 20 Exhaled Tidal Volume 327 Minute Ventilation 6.6 Peak Inspiratory Airway 21 Pressure Plateau Pressure 14 Respiratory Cycle Inspiratory: 1:2.8 Expiratory Ratio Inspiratory Phase Time 0.8 End-Tidal CO2 28 Static Lung Compliance 36.33 Dynamic Lung Compliance 20.44 Normal Static Lung Compliance 46.00 Coding Level of Care Code 01298 CRITICAL CARE 1ST 30-74M Diagnoses Septic shock A41.9; R65.21 Rectal bleeding K62.5 Acute and chronic respiratory failure J96.20 Urinary tract infection N39.0 Severe sepsis A41.9; R65.20 Acidosis E87.20 Respiratory failure J96.02 Chronicity: acute Respiratory failure complication: hypercapnia Atrial fibrillation with RVR I48.91 (7) Respiratory failure Chronicity: acute Respiratory failure complication: hypercapnia Qualified Code(s): J96.02 - Acute respiratory failure with hypercapnia
[2024-09-25] MEDS ORDERED: 0.2 MICRON FILTER SET 1 EACH IV STA (21:58)
[2024-09-25] MEDS ORDERED: AMIODARONE IV BOLUS & DRIP IV STA (21:58)
--- NOTE | 2024-09-25 22:01 | Communication Note ---
Date of Service: September 25, 2024 From hemodynamic standpoint the patient is not tolerating intermittent tachycardia with AFRVR up to 150s. Pressors are off but hypotensive with increased HR. SBP 150s when HR < 120. Heparin is being held due to acute blood loss anemia. Amiodarone bolus and infusion started, rebolus PRN. Coding Level of Care Code None
[2024-09-25] MEDS: AMIODARONE / D5W 150 MG/100 ML BAG IV STA (22:05)
[2024-09-25] MEDS: AMIODARONE / D5W 360 MG/200 ML BAG IV ONE (22:22)
[2024-09-26] MEDS: AMIODARONE / D5W 360 MG/200 ML BAG IV SCH (03:52)
[2024-09-26 05:01] LABS: Hematocrit (blood only) 29.9 % (37.0-47.0); Hemoglobin 9.7 g/dl (12.0-16.0); Immature Granulocytes # (auto) 0.19 K/uL (0.01-0.20); Immature Granulocytes % (auto) 1.3 %; Mean Corpuscular Hemoglobin 28.6 pg (25.0-34.0); Mean Corpuscular Volume 88.2 fL (80.0-100.0); Platelet Count 322 K/uL (130-400); RDW Standard Deviation 52.8 fL (36.4-46.3); Red Blood Count 3.39 M/uL (4.20-5.40); White Blood Count 14.27 K/ul (4.8-10.8)
[2024-09-26 05:57] LABS: Alanine Aminotransferase 1461.0 U/L (7-52); Alkaline Phosphatase 87.0 U/L (34-104); Anion Gap 7.0 (3-11); Bilirubin,Total 0.6 mg/dl (0.2-1.0); Blood Urea Nitrogen 32.0 mg/dl (6-23); Calcium 7.8 mg/dl (8.6-10.3); Carbon Dioxide 25.0 mmol/L (21-32); Chloride 105.0 mmol/L (98-107); Creatinine Clr Calc Pharmacy 39.4 ml/min; Glucose 159.0 mg/dl (70-99(Fasting)); Magnesium 2.5 mg/dl (1.7-2.4); Potassium 3.8 mmol/L (3.5-5.1); Sodium 137.0 mmol/L (136-145); Total Protein 5.0 gm/dl (6.0-8.3)
--- NOTE | 2024-09-26 07:28 | Critical Care Progress Note ---
Date of Service September 26, 2024 Assessment & Plan (1) Septic shock: (2) Rectal bleeding: (3) Acute and chronic respiratory failure: (4) Urinary tract infection: (5) Severe sepsis: (6) Acidosis: (7) Respiratory failure: (8) Atrial fibrillation with RVR: Plan Reason critically ill: Kae Johnston is a 74-year-old female with PMHX of COPD on 3L NC, tobacco use, HTN/HLD, CAD with inferior wall STEMI 2022, Paroxysmal a fib, hypothyroidism who presented to [facility] ED after being unresponsive with hypoglycemia and hypotension concerning for sepsis. Neuro - [facility] ICU: Unable to assess due to sedation RASS GOAL 0 to -1 Propofol/Fentanyl gtt weaned down to 10 of prop and 25 of fentanyl. Hold Gabapentin, Alendronate Cardiac - 2D echo 09/25/2024: EF 50-55%, mild concentric LVH, mild MR, RV not well- visualized -- Shock Multifactorial Sepsis plus sedative medication STEMI on EKG, resolved. 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 Cardiology on board MAP goal > 65mmHg Hold statin with LFTs -- A-fib RVR Does have history of A-fib and is on Eliquis at home Amiodarone drip started 09/25/2024 Respiratory - --Acute hypoxic hypercapnic respiratory failure Multifactorial COPD exacerbation as well as shock Continue with ventilatory support Keep RASS -1 Daily sedation holidays and SBT's Chlorhexidine mouthwash -- COPD On Advair 115 and Spiriva at home --Pulmonary hypertension Likely type III -- Current smoker Reports of quitting explained to the patient GI - -- Rectal bleeding appears hemorrhoidal. Appears to have large burden stool on CT AP. GI scoped 09/25/2024 with no clear source of bleeding --Transaminitis Likely shock liver Continue to trend Follow-up hepatitis profile RENAL/LYTES - -- Monitor BUN/creatinine Avoid nephrotoxic medications ENDO - -- Hypothyroidism Continue with levofloxacin --ICU hyperglycemia protocol HEME - -- Acute blood loss anemia S/p PRBC Monitor H&H, transfuse for hemoglobin less than 7 ID - -- UTI History of Pseudomonas as well as Citrobacter in August 2024, sensitive to cefepime --> antibiotics changed to cefepime on 09/26/2024 Vancomycin discontinued 09/25/2024 given nasal MRSA negative Follow-up blood culture --Prophylaxis VTE: IPC GI: Pepcid Lines: Right femoral, left radial Diet: N.p.o. Plan: In/out: +3.8 L, urine output 695, +6 L since coming to the hospital Potassium being replaced DC vasopressin Start the patient on metoprolol 5 mg every 4 hours for A-fib RVR SBT with trial of extubation today to BiPAP Zosyn will be changed back to cefepime Urine output is not good I have personally spent 42 minutes of critical care time in the direct management of this patient. This is a life/limb threatening event. This includes time spent evaluating patient, direct bedside care, chart review, placing orders, interpretation of diagnostic studies, discussion with consultants, patient, and family members, as well as other required patient management activities. This time is exclusive of all separately billable procedures, and teaching time and separate from and in addition to any other critical care service time. Thank you for allowing us to participate in the care of this patient. Please refer to my attending physician's documentation for any further recommendations. Admission and Anticipated Discharge Date Admission Date: September 24, 2024 Subjective Patient seen and examined at bedside. No acute distress. She was on 0.04 of vasopressin, her map was actually in the 115 at the time of examination Heart rate was in the 130s-140s irregular. She is afebrile Overnight amiodarone was started for A-fib RVR Review of Systems 2 Review of Systems: Unobtainable due to endotracheal tube Physical Exam 2 Physical Exam: Constitutional: No acute distress HEENT: PERRLA, arcus senilis bilaterally Respiratory system: Decreased air entry bilaterally, no wheeze, no rhonchi, positive crackles bilateral lower lobes more on the right side CVS: S1-S2 positive, no murmurs or gallops, irregular Abdomen: Soft, nontender, nondistended, positive bowel sounds x4 Extremities: +2 pulses bilaterally radialis/ dorsalis pedis, no cyanosis, +1 pitting edema bilateral lower extremity Neuro: Sedated, RASS -2, breathing with the vent Psych: Unable to assess G/U: Positive Helms Skin: no rashes, warm and dry Lymphatic: no cervical or axillary lymphadenopathy Results & Data Results & Data Vital Signs (Past 12 Hours) Vital Signs Temp Pulse Pulse Resp BP Pulse Ox O2 Del Method 09/26/24 06:00 37.4 C 115 H 18 100 Mechanical Vent 09/26/24 05:00 37.4 C 109 H 18 100 Mechanical Vent 09/26/24 04:51 37.4 C 112 H 18 98 Mechanical Vent 09/26/24 04:45 37.4 C 124 H 18 98 Mechanical Vent 09/26/24 04:39 37.4 C 117 H 18 97 Mechanical Vent 09/26/24 04:12 120 H 18 09/26/24 04:00 09/26/24 04:00 121 H 09/26/24 03:30 37.4 C 113 H 18 97 Mechanical Vent 09/26/24 03:11 121 H 18 97 09/26/24 03:00 37.3 C 115 H 19 96 Mechanical Vent 09/26/24 02:33 37.4 C 116 H 18 97 Mechanical Vent 09/26/24 02:09 37.4 C 121 H 18 96 Mechanical Vent 09/26/24 01:30 37.4 C 122 H 18 93 Mechanical Vent 09/26/24 01:22 112 H 18 98 Mechanical Vent 09/26/24 01:15 37.4 C 111 H 18 95 Mechanical Vent 09/26/24 01:04 130/92 09/26/24 01:04 130/92 09/26/24 00:54 37.3 C 101 H 18 98 Mechanical Vent 09/26/24 00:33 37.2 C 117 H 18 98 Mechanical Vent 09/26/24 00:00 37.2 C 106 H 18 94 Mechanical Vent 09/26/24 00:00 09/25/24 23:57 113 H 09/25/24 23:54 37.2 C 105 H 18 94 Mechanical Vent 09/25/24 23:16 107 H 18 98 09/25/24 23:15 37.1 C 111 H 18 97 Mechanical Vent 09/25/24 23:00 128/89 09/25/24 22:57 37.1 C 115 H 18 98 Mechanical Vent 09/25/24 22:39 37.1 C 118 H 18 100 Mechanical Vent 09/25/24 22:00 83/63 L 09/25/24 22:00 37.2 C 132 H 18 98 Mechanical Vent 09/25/24 21:59 90/63 L 09/25/24 21:58 37.2 C 130 H 18 83/63 L 98 09/25/24 21:54 37.2 C 137 H 18 98 Mechanical Vent 09/25/24 21:45 120/91 09/25/24 21:36 37.3 C 127 H 18 97 Mechanical Vent 09/25/24 21:30 09/25/24 21:13 116 H 18 100 09/25/24 21:13 116 H 18 100 Mechanical Vent 09/25/24 21:00 Mechanical Vent 09/25/24 21:00 37.4 C 111 H 20 100 Mechanical Vent 09/25/24 20:38 37.4 C 108 H 20 160/90 H 100 09/25/24 20:30 37.4 C 111 H 20 100 Mechanical Vent 09/25/24 20:00 37.4 C 111 H 20 100 Mechanical Vent 09/25/24 19:35 37.5 C 108 H 20 100 09/25/24 19:30 37.4 C 114 H 20 100 Mechanical Vent FiO2 09/26/24 06:00 09/26/24 05:00 09/26/24 04:51 09/26/24 04:45 09/26/24 04:39 09/26/24 04:12 09/26/24 04:00 09/26/24 04:00 09/26/24 03:30 09/26/24 03:11 09/26/24 03:00 09/26/24 02:33 09/26/24 02:09 09/26/24 01:30 09/26/24 01:22 09/26/24 01:15 09/26/24 01:04 09/26/24 01:04 09/26/24 00:54 09/26/24 00:33 09/26/24 00:00 09/26/24 00:00 09/25/24 23:57 09/25/24 23:54 30 09/25/24 23:16 30 09/25/24 23:15 30 09/25/24 23:00 09/25/24 22:57 40 09/25/24 22:39 40 09/25/24 22:00 09/25/24 22:00 40 09/25/24 21:59 09/25/24 21:58 09/25/24 21:54 40 09/25/24 21:45 09/25/24 21:36 40 09/25/24 21:30 40 09/25/24 21:13 40 09/25/24 21:13 40 09/25/24 21:00 40 09/25/24 21:00 09/25/24 20:38 09/25/24 20:30 09/25/24 20:00 09/25/24 19:35 09/25/24 19:30 Laboratory Results 09/26/24 04:40 09/26/24 04:40 Coding Level of Care Code 28535 CRITICAL CARE 1ST 30-74M Diagnoses Septic shock A41.9; R65.21 Rectal bleeding K62.5 Acute and chronic respiratory failure J96.20 Urinary tract infection N39.0 Severe sepsis A41.9; R65.20 Acidosis E87.20 Respiratory failure J96.02 Chronicity: acute Respiratory failure complication: hypercapnia Atrial fibrillation with RVR I48.91 (7) Respiratory failure Chronicity: acute Respiratory failure complication: hypercapnia Qualified Code(s): J96.02 - Acute respiratory failure with hypercapnia
[2024-09-26] MEDS: CALCIUM GLUCONATE 1,000 MG/60 ML BAG IV STA (07:50)
[2024-09-26] MEDS: POTASSIUM CHLORIDE / WTR 10 MEQ/100 ML PLCT IV SCH (07:50)
[2024-09-26] MEDS: METOPROLOL TARTRATE 1 MG/ML VIAL IV STA (08:44)
[2024-09-26] MEDS ORDERED: Nursing to Pharmacy Communication SCH (08:45)
--- NOTE | 2024-09-26 09:42 | Gastroenterology Progress Note ---
Date of Service September 26, 2024 Assessment & Plan (1) Rectal bleeding: Plan: 74 year old female w/ history of COPD on home oxygen, HTN, CAD (STEMI in 2022 s/p RCA intervention), paroxysmal atrial fibrillation, hypothyroidism, hyperlipidemia, generalized osteoarthritis, osteoporosis, migraines admitted 09/24 w/ altered mental status, sepsis - GI was asked to evaluate for rectal bleeding CT w/ distended rectum with hyperdense material in the lumen and focal arterial phase hyperdensity in right lateral lower rectal wall suggesting active arterial leak s/p urgent colonoscopy 09/25 w/o signs of active bleeding 1. Rectal bleeding - Negative colonoscopy - May consider repeat evaluate as an outpatient once able to tolerate prep - Continue to hold Eliquis/Plavix - Supportive measures - Trend HGB - Monitor GI output - Transfuse PRN per primary service 2. Elevated LFTs - ABD US reviewed - LFTs normal prior admission - Suspected shock liver - Follow hepatitis panel - Trend LFTs - Supportive measures I spent a total of 40 minutes on the date of service in review of patient's record, and previously obtained information in person and appropriate medical visit, discussion and education of plan, with patient and/or caregiver, placing orders for tests/referral/procedures as medically necessary and documentation of pertinent clinical information in patient's medical records for their visit today. 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 Patient with acute lower GI bleed hypotension. Hypotension however may be related to sepsis. Only 1 bowel movement since admission. Counts are stable. CTA suggested potential rectal bleeding. This could been a low diverticular bleed. Blood thinners on hold. Patient has evidence of ischemic hepatitis. Those enzyme levels have peaked and are normalizing. Colonoscopy did not show any definitive bleeding site or active bleeding. Follow clinical course. Subjective Pt was seen and evaluated, chart reviewed. Remains intubated. S/P urgent evaluation w/ colonoscopy yesterday by Dr. Arevalo w/o signs of active bleeding but there was report of blood tinged fluid present during the evaluation. Per nursing, no report of bloody stools this shift. Last documented blood output was around 0100. S/P 2 units RBCs. HGB 9.7, BUN 32. Home anticoagulants (Eliquis and Plavix) are held. Review of Systems Review of Systems: Unobtainable due to endotracheal tube Physical Exam Gastrointestinal (Abdomen): normal bowel sounds, soft, nontender, no hepatosplenomegaly Results & Data Results & Data Vital Signs (Past 12 Hours) Vital Signs Temp Pulse Pulse Resp BP Pulse Ox O2 Del Method 09/26/24 09:12 98.4 F 129 H 18 111/92 96 09/26/24 08:44 156 H 119/76 09/26/24 08:12 99.0 F 123 H 18 135/112 H 96 09/26/24 08:00 135/112 H 09/26/24 08:00 09/26/24 08:00 122 H 09/26/24 07:33 98.8 F 114 H 18 139/115 H 97 09/26/24 07:33 105 H 18 97 09/26/24 06:00 99.3 F 115 H 18 100 Mechanical Vent 09/26/24 05:00 99.3 F 109 H 18 100 Mechanical Vent 09/26/24 04:51 99.3 F 112 H 18 98 Mechanical Vent 09/26/24 04:45 99.3 F 124 H 18 98 Mechanical Vent 09/26/24 04:39 99.3 F 117 H 18 97 Mechanical Vent 09/26/24 04:12 120 H 18 09/26/24 04:00 09/26/24 04:00 121 H 09/26/24 03:30 99.3 F 113 H 18 97 Mechanical Vent 09/26/24 03:11 121 H 18 97 09/26/24 03:00 99.1 F 115 H 19 96 Mechanical Vent 09/26/24 02:33 99.3 F 116 H 18 97 Mechanical Vent 09/26/24 02:09 99.3 F 121 H 18 96 Mechanical Vent 09/26/24 01:30 99.3 F 122 H 18 93 Mechanical Vent 09/26/24 01:22 112 H 18 98 Mechanical Vent 09/26/24 01:15 99.3 F 111 H 18 95 Mechanical Vent 09/26/24 01:04 130/92 09/26/24 01:04 130/92 09/26/24 00:54 99.1 F 101 H 18 98 Mechanical Vent 09/26/24 00:33 99.0 F 117 H 18 98 Mechanical Vent 09/26/24 00:00 99.0 F 106 H 18 94 Mechanical Vent 09/26/24 00:00 09/25/24 23:57 113 H 09/25/24 23:54 99.0 F 105 H 18 94 Mechanical Vent 09/25/24 23:16 107 H 18 98 09/25/24 23:15 98.8 F 111 H 18 97 Mechanical Vent 09/25/24 23:00 128/89 09/25/24 22:57 98.8 F 115 H 18 98 Mechanical Vent 09/25/24 22:39 98.8 F 118 H 18 100 Mechanical Vent 09/25/24 22:00 83/63 L 09/25/24 22:00 99.0 F 132 H 18 98 Mechanical Vent 09/25/24 21:59 90/63 L 09/25/24 21:58 99.0 F 130 H 18 83/63 L 98 09/25/24 21:54 99.0 F 137 H 18 98 Mechanical Vent 09/25/24 21:45 120/91 09/25/24 21:36 99.1 F 127 H 18 97 Mechanical Vent 09/25/24 21:30 FiO2 09/26/24 09:12 09/26/24 08:44 09/26/24 08:12 09/26/24 08:00 09/26/24 08:00 09/26/24 08:00 09/26/24 07:33 09/26/24 07:33 09/26/24 06:00 09/26/24 05:00 09/26/24 04:51 09/26/24 04:45 09/26/24 04:39 09/26/24 04:12 09/26/24 04:00 09/26/24 04:00 09/26/24 03:30 09/26/24 03:11 09/26/24 03:00 09/26/24 02:33 09/26/24 02:09 09/26/24 01:30 09/26/24 01:22 09/26/24 01:15 09/26/24 01:04 09/26/24 01:04 09/26/24 00:54 09/26/24 00:33 09/26/24 00:00 09/26/24 00:00 09/25/24 23:57 09/25/24 23:54 09/25/24 23:16 30 09/25/24 23:15 30 09/25/24 23:00 09/25/24 22:57 40 09/25/24 22:39 40 09/25/24 22:00 09/25/24 22:00 40 09/25/24 21:59 09/25/24 21:58 09/25/24 21:54 40 09/25/24 21:45 09/25/24 21:36 40 09/25/24 21:30 40 Laboratory Results 09/26/24 09/26/24 09/26/24 Range/Units 07:35 07:17 05:25 WBC (4.8-10.8) K/ul RBC (4.20-5.40) M/uL Hgb (12.0-16.0) g/dl Hct (37.0-47.0) % MCV (80.0-100.0) fL MCH (25.0-34.0) pg MCHC (32.0-36.0) g/dL RDW Std Deviation (36.4-46.3) fL RDW Coeff of Chet (11.5-14.5) % Plt Count (130-400) K/uL MPV (9.4-12.4) fL Immature Gran % (Auto) % Neut % (Auto) % Lymph % (Auto) % [place] % (Auto) % Eos % (Auto) % Baso % (Auto) % Neut # (Auto) (1.40-6.50) K/uL Lymph # (Auto) (1.20-3.40) K/uL [place] # (Auto) (0.11-0.59) K/uL Eos # (Auto) (0.00-0.50) K/uL Baso # (Auto) (0.00-0.20) K/uL Immature Gran # (Auto) (0.01-0.20) K/uL Absolute Nucleated RBC (0.00-0.12) K/uL Nucleated RBC % (auto) % Sodium (136-145) mmol/L Potassium (3.5-5.1) mmol/L Chloride (98-107) mmol/L Carbon Dioxide (21-32) mmol/L Anion Gap (3-11) BUN (6-23) mg/dl Creatinine (0.6-1.2) mg/dl Est Cr Clr Drug Dosing ml/min eGFR BUN/Creatinine Ratio (10-20) Glucose (70-99(Fasting)) mg/dl POC Glucose 162 H (70-99) mg/dl Lactate 1.8 (0.4-2.0) mmol/L Calcium (8.6-10.3) mg/dl Phosphorus (2.5-4.9) mg/dl Magnesium (1.7-2.4) mg/dl Total Bilirubin (0.2-1.0) mg/dl Direct Bilirubin (0-0.2) mg/dl AST (13-39) U/L ALT (7-52) U/L Alkaline Phosphatase (34-104) U/L Troponin I High Sens (0-14) pg/ml Total Protein (6.0-8.3) gm/dl Albumin (3.4-5.0) gm/dl Random Cortisol mcg/dl Hepatitis A IgM Ab Pending Hep Bs Antigen Pending Hep B Core IgM Ab Pending Hepatitis C Antibody Pending Blood Type Antibody Screen Crossmatch 09/26/24 09/25/24 09/25/24 Range/Units 04:40 23:39 17:53 WBC 14.27 H (4.8-10.8) K/ul RBC 3.39 L (4.20-5.40) M/uL Hgb 9.7 L (12.0-16.0) g/dl Hct 29.9 L (37.0-47.0) % MCV 88.2 D (80.0-100.0) fL MCH 28.6 (25.0-34.0) pg MCHC 32.4 D (32.0-36.0) g/dL RDW Std Deviation 52.8 H (36.4-46.3) fL RDW Coeff of Chet 16.3 H (11.5-14.5) % Plt Count 322 (130-400) K/uL MPV 9.0 L (9.4-12.4) fL Immature Gran % (Auto) 1.3 % Neut % (Auto) 83.8 % Lymph % (Auto) 9.5 % [place] % (Auto) 5.3 % Eos % (Auto) 0.0 % Baso % (Auto) 0.1 % Neut # (Auto) 11.96 H (1.40-6.50) K/uL Lymph # (Auto) 1.35 (1.20-3.40) K/uL [place] # (Auto) 0.75 H (0.11-0.59) K/uL Eos # (Auto) 0.00 (0.00-0.50) K/uL Baso # (Auto) 0.02 (0.00-0.20) K/uL Immature Gran # (Auto) 0.19 (0.01-0.20) K/uL Absolute Nucleated RBC 0.13 H (0.00-0.12) K/uL Nucleated RBC % (auto) 0.9 % Sodium 137 (136-145) mmol/L Potassium 3.8 (3.5-5.1) mmol/L Chloride 105 (98-107) mmol/L Carbon Dioxide 25 (21-32) mmol/L Anion Gap 7 (3-11) BUN 32 H (6-23) mg/dl Creatinine 0.92 (0.6-1.2) mg/dl Est Cr Clr Drug Dosing 39.4 ml/min eGFR 64.93 BUN/Creatinine Ratio 34.8 H (10-20) Glucose 159 H (70-99(Fasting)) mg/dl POC Glucose 134 H (70-99) mg/dl Lactate (0.4-2.0) mmol/L Calcium 7.8 L (8.6-10.3) mg/dl Phosphorus 2.9 D (2.5-4.9) mg/dl Magnesium 2.5 H (1.7-2.4) mg/dl Total Bilirubin 0.6 (0.2-1.0) mg/dl Direct Bilirubin 0.3 H (0-0.2) mg/dl AST 1502 H (13-39) U/L ALT 1461 H (7-52) U/L Alkaline Phosphatase 87 (34-104) U/L Troponin I High Sens 1189.4 H* (0-14) pg/ml Total Protein 5.0 L (6.0-8.3) gm/dl Albumin 2.8 L (3.4-5.0) gm/dl Random Cortisol 40.51 mcg/dl Hepatitis A IgM Ab Hep Bs Antigen Hep B Core IgM Ab Hepatitis C Antibody Blood Type Antibody Screen Crossmatch 06/15/25 06/15/25 06/15/25 Range/Units 14:58 11:40 10:31 WBC (4.8-10.8) K/ul RBC (4.20-5.40) M/uL Hgb 8.7 L 8.3 L (12.0-16.0) g/dl Hct 27.7 L 26.8 L (37.0-47.0) % MCV (80.0-100.0) fL MCH (25.0-34.0) pg MCHC (32.0-36.0) g/dL RDW Std Deviation (36.4-46.3) fL RDW Coeff of Chet (11.5-14.5) % Plt Count (130-400) K/uL MPV (9.4-12.4) fL Immature Gran % (Auto) % Neut % (Auto) % Lymph % (Auto) % [place] % (Auto) % Eos % (Auto) % Baso % (Auto) % Neut # (Auto) (1.40-6.50) K/uL Lymph # (Auto) (1.20-3.40) K/uL [place] # (Auto) (0.11-0.59) K/uL Eos # (Auto) (0.00-0.50) K/uL Baso # (Auto) (0.00-0.20) K/uL Immature Gran # (Auto) (0.01-0.20) K/uL Absolute Nucleated RBC (0.00-0.12) K/uL Nucleated RBC % (auto) % Sodium 139 (136-145) mmol/L Potassium 4.3 (3.5-5.1) mmol/L Chloride 105 (98-107) mmol/L Carbon Dioxide 27 (21-32) mmol/L Anion Gap 7 (3-11) BUN 39 H (6-23) mg/dl Creatinine 1.17 (0.6-1.2) mg/dl Est Cr Clr Drug Dosing 31.0 ml/min eGFR 48.66 BUN/Creatinine Ratio 33.3 H (10-20) Glucose 148 H (70-99(Fasting)) mg/dl POC Glucose (70-99) mg/dl Lactate (0.4-2.0) mmol/L Calcium 8.1 L (8.6-10.3) mg/dl Phosphorus 4.1 (2.5-4.9) mg/dl Magnesium 2.1 (1.7-2.4) mg/dl Total Bilirubin (0.2-1.0) mg/dl Direct Bilirubin (0-0.2) mg/dl AST (13-39) U/L ALT (7-52) U/L Alkaline Phosphatase (34-104) U/L Troponin I High Sens 1178.4 H* D (0-14) pg/ml Total Protein (6.0-8.3) gm/dl Albumin (3.4-5.0) gm/dl Random Cortisol mcg/dl Hepatitis A IgM Ab Hep Bs Antigen Hep B Core IgM Ab Hepatitis C Antibody Blood Type Antibody Screen Crossmatch 09/25/24 Range/Units 03:40 WBC (4.8-10.8) K/ul RBC (4.20-5.40) M/uL Hgb (12.0-16.0) g/dl Hct (37.0-47.0) % MCV (80.0-100.0) fL MCH (25.0-34.0) pg MCHC (32.0-36.0) g/dL RDW Std Deviation (36.4-46.3) fL RDW Coeff of Chet (11.5-14.5) % Plt Count (130-400) K/uL MPV (9.4-12.4) fL Immature Gran % (Auto) % Neut % (Auto) % Lymph % (Auto) % [place] % (Auto) % Eos % (Auto) % Baso % (Auto) % Neut # (Auto) (1.40-6.50) K/uL Lymph # (Auto) (1.20-3.40) K/uL [place] # (Auto) (0.11-0.59) K/uL Eos # (Auto) (0.00-0.50) K/uL Baso # (Auto) (0.00-0.20) K/uL Immature Gran # (Auto) (0.01-0.20) K/uL Absolute Nucleated RBC (0.00-0.12) K/uL Nucleated RBC % (auto) % Sodium (136-145) mmol/L Potassium (3.5-5.1) mmol/L Chloride (98-107) mmol/L Carbon Dioxide (21-32) mmol/L Anion Gap (3-11) BUN (6-23) mg/dl Creatinine (0.6-1.2) mg/dl Est Cr Clr Drug Dosing ml/min eGFR BUN/Creatinine Ratio (10-20) Glucose (70-99(Fasting)) mg/dl POC Glucose (70-99) mg/dl Lactate (0.4-2.0) mmol/L Calcium (8.6-10.3) mg/dl Phosphorus (2.5-4.9) mg/dl Magnesium (1.7-2.4) mg/dl Total Bilirubin (0.2-1.0) mg/dl Direct Bilirubin (0-0.2) mg/dl AST (13-39) U/L ALT (7-52) U/L Alkaline Phosphatase (34-104) U/L Troponin I High Sens (0-14) pg/ml Total Protein (6.0-8.3) gm/dl Albumin (3.4-5.0) gm/dl Random Cortisol mcg/dl Hepatitis A IgM Ab Hep Bs Antigen Hep B Core IgM Ab Hepatitis C Antibody Blood Type O Positive Antibody Screen NEGATIVE Crossmatch See Detail PG Care Time/CCT Total # of Minutes Spent Total Time Spent with Patient: Total time spent is greater than 50% in coordination of care (as documented) at patient's floor/unit and/or counseling patient: Coding Level of Care Code 59339 SUB INP/OBS CARE 2/35MIN Diagnoses Rectal bleeding K62.5
[2024-09-26 09:55] LABS: Hep C Ab Rflx HepCQuant RNA Negative (Negative)
[2024-09-26 10:01] LABS: Hep B Surface Ag with confirm Negative (Negative)
[2024-09-26] MEDS: CEFEPIME 2000MG 2,000 MG/20 ML SYR IV SCH (10:22)
--- NOTE | 2024-09-26 10:23 | Cardiology Progress Note ---
Date of Service September 26, 2024 Assessment & Plan (1) CAD (coronary artery disease), [place] coronary artery: (2) Abnormal EKG: (3) Sepsis: (4) PAF (paroxysmal atrial fibrillation): (5) Anticoagulant long-term use: (6) Rectal bleeding: Plan 74-year-old female with PMHx significant for CAD s/p RADU x2 to RCA (2022), history of STEMI, HTN, HLD, COPD, chronic hypoxic respiratory failure (on 3L via NC at baseline), and paroxysmal atrial fibrillation who presented on 09/24/24 for evaluation of AMS. Recent [facility] admission (08/22-09/01/24) for sepsis due to complicated cystitis, COPD exacerbation and AFIB with RVR. Found to have stricture at the right ureterovesical junction. Underwent cystoscopy (08/28/24) with bilateral retrograde pyelogram and right ureteroscopy with ureteral dilatation and stent placement. Positive for Citrobacter and Pseudomonas. Treated with IV antiobiotics and transitioned to PO ciprofloxacin upon discharged. Metoprolol succinate ER dose increased to 50 mg twice daily and discharged on [employer] Eliquis. Sinur rhythm observed on EKG performed 08/25/24. She was discharged to [facility] and then to home. One 09/24/24, her daughter tried to wake her up and patient would not wake up and EMS was called. Chest pain reported yesterday evening. EKG revealed STEMI in anterolateral and inferior leads and heart alert was called. Intubated in ED due to ongoing issues. Cardiology consulted and initially planned to take patient to cardiac laborer [facility] but abnormal ST changes resolved on repeat EKG. Abnormal EKG changes felt to be secondary to sepsis and metabolic derangements and cardiac cath deferred. Transferred to ICU for close monitoring. -Levophed weaned to off at 1800 on 09/25/24 -Remained in AF overnight and ventricular rates trended up prompting initiation of IV amiodarone, remains on amiodarone infusion at 0.5 mg /min. IV metoprolol also ordered. -Remains off of anticoagulation and eliquis due due to anemia. Colonoscopy on 09/25 unrevealing for source of bleeding. -LFTs elevated due to shock liver picture but trending down. -EKG 09/26/24 reveals AF RVR but no ST segment elevation. -Echo 09/25/24 with no regional wall motion abnormalities and normal LVEF. -Helms catheter and right femoral vein triple lumen catheter in place -Has received at leas 2 units of PRBCs Hgb of 6.5 g/dl improved to 9.7 g/dl this am. -blood cultures x 2 negative thus far. -Agree with IV metoprolol for rate control as BP allows and short term amiodarone for rate control . -Continue cefepime. -Hold plavix, eliquis, and IV heparin Pepe Lennon DO Department of Cardiology Admission and Anticipated Discharge Date Admission Date: September 24, 2024 Subjective Patient seen in cardiology follow up. She remains on the ventilator. Sedation was weaned. Responds to commands. Telemetry reveals atrial fibrillation with rapid ventricular response in the 120s. Review of Systems Review of Systems: Unobtainable due to endotracheal tube Physical Exam Physical Exam: Vital signs within normal limits as below. General: On ventilator. HEENT: Normocephalic. Atraumatic. EOMI. Conjunctiva and sclera clear. NECK: Trachea midline. No thyromegaly. No carotid bruits. No JVD. Carotid upstrokes are brisk. Heart: tachycardia , irregular rhythm, no murmur S1 and S2 noted. Lungs: Diminished breath sounds throughout. Abdomen: Normal bowel sounds. Soft. Nontender. No abdominal bruits. Extremities: Normal capillary refill. No edema. No clubbing or cyanosis. Skin: Warm and dry. Neuro: responds to commands. Results & Data Vital Signs (Past 12 Hours) Vital Signs Temp Pulse Pulse Resp BP Pulse Ox O2 Del Method 09/26/24 09:12 36.9 C 129 H 18 111/92 96 09/26/24 09:02 114 H 98/58 L 09/26/24 08:44 156 H 119/76 09/26/24 08:12 37.2 C 123 H 18 135/112 H 96 09/26/24 08:00 135/112 H 09/26/24 08:00 09/26/24 08:00 122 H 09/26/24 07:33 37.1 C 114 H 18 139/115 H 97 09/26/24 07:33 105 H 18 97 09/26/24 06:00 37.4 C 115 H 18 100 Mechanical Vent 09/26/24 05:00 37.4 C 109 H 18 100 Mechanical Vent 09/26/24 04:51 37.4 C 112 H 18 98 Mechanical Vent 09/26/24 04:45 37.4 C 124 H 18 98 Mechanical Vent 09/26/24 04:39 37.4 C 117 H 18 97 Mechanical Vent 09/26/24 04:12 120 H 18 09/26/24 04:00 09/26/24 04:00 121 H 09/26/24 03:30 37.4 C 113 H 18 97 Mechanical Vent 09/26/24 03:11 121 H 18 97 09/26/24 03:00 37.3 C 115 H 19 96 Mechanical Vent 09/26/24 02:33 37.4 C 116 H 18 97 Mechanical Vent 09/26/24 02:09 37.4 C 121 H 18 96 Mechanical Vent 09/26/24 01:30 37.4 C 122 H 18 93 Mechanical Vent 09/26/24 01:22 112 H 18 98 Mechanical Vent 09/26/24 01:15 37.4 C 111 H 18 95 Mechanical Vent 09/26/24 01:04 130/92 09/26/24 01:04 130/92 09/26/24 00:54 37.3 C 101 H 18 98 Mechanical Vent 09/26/24 00:33 37.2 C 117 H 18 98 Mechanical Vent 09/26/24 00:00 37.2 C 106 H 18 94 Mechanical Vent 09/26/24 00:00 09/25/24 23:57 113 H 09/25/24 23:54 37.2 C 105 H 18 94 Mechanical Vent 09/25/24 23:16 107 H 18 98 09/25/24 23:15 37.1 C 111 H 18 97 Mechanical Vent 09/25/24 23:00 128/89 09/25/24 22:57 37.1 C 115 H 18 98 Mechanical Vent 09/25/24 22:39 37.1 C 118 H 18 100 Mechanical Vent FiO2 09/26/24 09:12 09/26/24 09:02 09/26/24 08:44 09/26/24 08:12 09/26/24 08:00 09/26/24 08:00 30 09/26/24 08:00 09/26/24 07:33 09/26/24 07:33 30 09/26/24 06:00 30 09/26/24 05:00 30 09/26/24 04:51 09/26/24 04:45 30 09/26/24 04:39 30 09/26/24 04:12 09/26/24 04:00 09/26/24 04:00 09/26/24 03:30 09/26/24 03:11 30 09/26/24 03:00 09/26/24 02:33 30 09/26/24 02:09 09/26/24 01:30 09/26/24 01:22 09/26/24 01:15 09/26/24 01:04 09/26/24 01:04 09/26/24 00:54 09/26/24 00:33 30 09/26/24 00:00 09/26/24 00:00 30 09/25/24 23:57 09/25/24 23:54 30 09/25/24 23:16 30 09/25/24 23:15 30 09/25/24 23:00 09/25/24 22:57 40 09/25/24 22:39 40 Laboratory Results Cardiac Enzymes 09/25/24 09/25/24 09/26/24 Range/Units 11:40 17:53 04:40 AST 1502 H (13-39) U/L Troponin I High Sens 1178.4 H* D 1189.4 H* (0-14) pg/ml CBC 09/25/24 09/25/24 09/26/24 Range/Units 10:31 14:58 04:40 WBC 14.27 H (4.8-10.8) K/ul RBC 3.39 L (4.20-5.40) M/uL Hgb 8.3 L 8.7 L 9.7 L (12.0-16.0) g/dl Hct 26.8 L 27.7 L 29.9 L (37.0-47.0) % Plt Count 322 (130-400) K/uL Neut # (Auto) 11.96 H (1.40-6.50) K/uL Lymph # (Auto) 1.35 (1.20-3.40) K/uL [place] # (Auto) 0.75 H (0.11-0.59) K/uL Eos # (Auto) 0.00 (0.00-0.50) K/uL Baso # (Auto) 0.02 (0.00-0.20) K/uL Comprehensive Metabolic Panel 09/25/24 09/26/24 Range/Units 14:58 04:40 Sodium 139 137 (136-145) mmol/L Potassium 4.3 3.8 (3.5-5.1) mmol/L Chloride 105 105 (98-107) mmol/L Carbon Dioxide 27 25 (21-32) mmol/L BUN 39 H 32 H (6-23) mg/dl Creatinine 1.17 0.92 (0.6-1.2) mg/dl Glucose 148 H 159 H (70-99(Fasting)) mg/dl Calcium 8.1 L 7.8 L (8.6-10.3) mg/dl Direct Bilirubin 0.3 H (0-0.2) mg/dl AST 1502 H (13-39) U/L ALT 1461 H (7-52) U/L Alkaline Phosphatase 87 (34-104) U/L Total Protein 5.0 L (6.0-8.3) gm/dl Albumin 2.8 L (3.4-5.0) gm/dl (3) Sepsis Acute respiratory failure type: with hypoxia Sepsis acute organ dysfunction status: with acute organ dysfunction Sepsis type: sepsis due to unspecified organism Severe sepsis acute organ dysfunction type: acute respiratory failure Severe sepsis shock status: without septic shock Qualified Code(s): A41.9 - Sepsis, unspecified organism; R65.20 - Severe sepsis without septic shock; J96.01 - Acute respiratory failure with hypoxia
[2024-09-26] MEDS: METOPROLOL TARTRATE 1 MG/ML VIAL IV SCH (11:44)
--- NOTE | 2024-09-26 12:38 | Hospitalist Progress Note ---
Date of Service September 26, 2024 Assessment & Plan (1) Septic shock: (2) Hypovolemic shock: (3) Acute blood loss anemia: (4) Acute and chronic respiratory failure: (5) Urinary tract infection: (6) Shock liver: (7) Acute renal failure: (8) Myocardial infarction due to demand ischemia: (9) PAF (paroxysmal atrial fibrillation): (10) Hypoglycemia associated with diabetes: Plan Patient 74-year-old female presents with septic shock and hypovolemic shock and multiorgan failure. Patient remains critically ill requiring ICU level care Patient extubated and remains on BiPAP-continue to monitor respiratory status Patient off IV pressors, continue to monitor blood pressure in the setting of managing her atrial fibrillation Patient on IV amiodarone transitioning metoprolol for rate control with her atrial fibrillation Continue broad-spectrum antibiotics Discussed with cash poster team to consider possible infectious disease consultation in the setting of septic shock without a defined clear source Continue medical management of demand ischemia myocardial infarction by treating sepsis Acute blood loss anemia stabilized. No evidence of ongoing bleeding, hemoglobin stable after transfusion PRBCs x 2 Continue to monitor laboratory studies Communication with cash poster team, they were able to contact daughter last evening. At this time patient's daughter continues to request full code Phone conversation with patient's daughter today. Again reviewed patient's guar ded condition and concerning prognosis. She states that when she spoke with patient in the past patient had requested full code and for ICU level care. Admission and Anticipated Discharge Date Admission Date: September 24, 2024 Subjective Events of last 24 hours reviewed with cash poster team. Patient having episodes of paroxysmal atrial fibrillation with rapid ventricular spots, started on IV amiodarone, extubated this morning to BiPAP. Off IV pressors at this time. Min imal response from patient. Did open her eyes. Physical Exam Physical Exam: Constitutional: Lethargic, ill in appearance HEENT: Mucous membranes dry, BiPAP mask Lungs: Decreased breath sounds, fine crackles CV: S1-S2, regular Abdomen: Soft, nontender, nondistended Extremities: Some pretibial lower extremity edema Neuro: Lethargic, generally weak, opens eyes when you call her name but no significant purposeful following of commands Psych: Lethargic, flat Results & Data Results & Data Vital Signs (Past 12 Hours) Vital Signs Temp Pulse Pulse Resp BP Pulse Ox O2 Del Method 09/26/24 12:00 37.1 C 118 H 12 121/81 91 09/26/24 11:44 124 H 112/68 09/26/24 11:14 118 H 21 99 09/26/24 11:00 37.1 C 133 H 16 95/73 L 93 09/26/24 10:00 36.9 C 123 H 15 92 09/26/24 09:12 36.9 C 129 H 18 111/92 96 09/26/24 09:02 114 H 98/58 L 09/26/24 08:44 156 H 119/76 09/26/24 08:12 37.2 C 123 H 18 135/112 H 96 09/26/24 08:00 135/112 H 09/26/24 08:00 09/26/24 08:00 122 H 09/26/24 07:33 37.1 C 114 H 18 139/115 H 97 09/26/24 07:33 105 H 18 97 09/26/24 06:00 37.4 C 115 H 18 100 Mechanical Vent 09/26/24 05:00 37.4 C 109 H 18 100 Mechanical Vent 09/26/24 04:51 37.4 C 112 H 18 98 Mechanical Vent 09/26/24 04:45 37.4 C 124 H 18 98 Mechanical Vent 09/26/24 04:39 37.4 C 117 H 18 97 Mechanical Vent 09/26/24 04:12 120 H 18 09/26/24 04:00 09/26/24 04:00 121 H 09/26/24 03:30 37.4 C 113 H 18 97 Mechanical Vent 09/26/24 03:11 121 H 18 97 09/26/24 03:00 37.3 C 115 H 19 96 Mechanical Vent 09/26/24 02:33 37.4 C 116 H 18 97 Mechanical Vent 09/26/24 02:09 37.4 C 121 H 18 96 Mechanical Vent 09/26/24 01:30 37.4 C 122 H 18 93 Mechanical Vent 09/26/24 01:22 112 H 18 98 Mechanical Vent 09/26/24 01:15 37.4 C 111 H 18 95 Mechanical Vent 09/26/24 01:04 130/92 09/26/24 01:04 130/92 09/26/24 00:54 37.3 C 101 H 18 98 Mechanical Vent 09/26/24 00:33 37.2 C 117 H 18 98 Mechanical Vent FiO2 09/26/24 12:00 09/26/24 11:44 09/26/24 11:14 40 09/26/24 11:00 09/26/24 10:00 09/26/24 09:12 09/26/24 09:02 09/26/24 08:44 09/26/24 08:12 09/26/24 08:00 09/26/24 08:00 30 09/26/24 08:00 09/26/24 07:33 09/26/24 07:33 30 09/26/24 06:00 30 09/26/24 05:00 30 09/26/24 04:51 30 09/26/24 04:45 30 09/26/24 04:39 30 09/26/24 04:12 09/26/24 04:00 30 09/26/24 04:00 09/26/24 03:30 30 09/26/24 03:11 30 09/26/24 03:00 30 09/26/24 02:33 30 09/26/24 02:09 30 09/26/24 01:30 30 09/26/24 01:22 30 09/26/24 01:15 30 09/26/24 01:04 09/26/24 01:04 09/26/24 00:54 30 09/26/24 00:33 30 Diagnostic Findings Reviewed imaging, laboratory and diagnostic studies. Pertinent findings as below. WBCs 14.2 Hemoglobin 9.7, improved Platelets of 322 Electrolytes stable Creatinine 0.92 Glucose was reviewed LFTs reviewed, improving Troponins reviewed Hepatitis panel negative Liver ultrasound reviewed, evidence of medical liver disease Echocardiogram shows ejection fraction 50 to 55%, no significant wall motion abnormalities, no significant change from previous Blood cultures no growth Urine culture Lena most likely colonization
[2024-09-26] MEDS: FORMOTEROL 20 MCG/2 ML VIAL NEB SCH (19:53)
[2024-09-26] MEDS: BUDESONIDE 0.5 MG/2 ML VIAL (PULMICORT) NEB SCH (19:53)
[2024-09-27 05:05] LABS: Hematocrit (blood only) 29.1 % (37.0-47.0); Hemoglobin 9.4 g/dl (12.0-16.0); Immature Granulocytes # (auto) 0.19 K/uL (0.01-0.20); Immature Granulocytes % (auto) 1.2 %; Mean Corpuscular Hemoglobin 28.2 pg (25.0-34.0); Mean Corpuscular Volume 87.4 fL (80.0-100.0); Platelet Count 269 K/uL (130-400); RDW Standard Deviation 53.4 fL (36.4-46.3); Red Blood Count 3.33 M/uL (4.20-5.40); White Blood Count 15.72 K/ul (4.8-10.8)
[2024-09-27 05:35] LABS: Alkaline Phosphatase 98.0 U/L (34-104); Anion Gap 7.0 (3-11); Bilirubin,Total 0.5 mg/dl (0.2-1.0); Blood Urea Nitrogen 23.0 mg/dl (6-23); Calcium 8.0 mg/dl (8.6-10.3); Carbon Dioxide 25.0 mmol/L (21-32); Chloride 107.0 mmol/L (98-107); Creatinine Clr Calc Pharmacy 46.4 ml/min; Glucose 96.0 mg/dl (70-99(Fasting)); Magnesium 2.1 mg/dl (1.7-2.4); Potassium 3.8 mmol/L (3.5-5.1); Sodium 139.0 mmol/L (136-145); Total Protein 4.9 gm/dl (6.0-8.3)
[2024-09-27 05:39] LABS: Alanine Aminotransferase 1146.0 U/L (7-52)
[2024-09-27] MEDS ORDERED: POTASSIUM PHOS 3 MMOL/1 ML INFUSION IV STA (05:48)
[2024-09-27] MEDS: POTASSIUM PHOSPHATE 21 MMOL in SODIUM CHLORIDE 0.9% 500 ML IV ONE (06:08)
--- NOTE | 2024-09-27 07:41 | Critical Care Progress Note ---
Date of Service September 27, 2024 Assessment & Plan (1) Septic shock: (2) Rectal bleeding: (3) Acute and chronic respiratory failure: (4) Urinary tract infection: (5) Severe sepsis: (6) Acidosis: (7) Respiratory failure: (8) Atrial fibrillation with RVR: (9) Metabolic encephalopathy: Plan Reason critically ill: Kae Johnston is a 74-year-old female with PMHX of COPD on 3L NC, tobacco use, HTN/HLD, CAD with inferior wall STEMI 2022, Paroxysmal a fib, hypothyroidism who presented to [facility] ED after being unresponsive with hypoglycemia and hypotension concerning for sepsis. Neuro - [facility] ICU: Negative --Metabolic encephalopathy Multifactorial Severe hypoglycemia at presentation with blood sugar of 14 Severe hypercapnia on presentation TSH within normal limit 09/04 CT head 09/24/2024: No acute intracranial finding Cardiac - 2D echo 09/25/2024: EF 50-55%, mild concentric LVH, mild MR, RV not well- visualized -- S/p shock Multifactorial Sepsis plus sedative medication STEMI on EKG, resolved. 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 Cardiology on board MAP goal > 65mmHg Hold statin with LFTs -- A-fib RVR Does have history of A-fib and is on Eliquis at home Amiodarone drip started 09/25/2024 Respiratory - --Acute hypoxic hypercapnic respiratory failure Multifactorial COPD exacerbation as well as shock Continue with ventilatory support Extubated 09/26/2024 -- COPD On Advair 115 and Spiriva at home --Pulmonary hypertension Likely type III -- Current smoker Reports of quitting explained to the patient - -- History of right-sided hydronephrosis Ureteral stent placed on 08/28/2024 Stent removed 09/25/2024 GI - -- Rectal bleeding appears hemorrhoidal. Appears to have large burden stool on CT AP. GI scoped 09/25/2024 with no clear source of bleeding --Transaminitis --> improving Likely shock liver Continue to trend Follow-up hepatitis profile RENAL/LYTES - -- Monitor BUN/creatinine Avoid nephrotoxic medications ENDO - -- Hypothyroidism Continue with levofloxacin --ICU hyperglycemia protocol HEME - -- Acute blood loss anemia S/p PRBC Monitor H&H, transfuse for hemoglobin less than 7 --Coagulopathy Vitamin K given 09/27/2024 ID - -- UTI History of Pseudomonas as well as Citrobacter in August 2024, sensitive to cefepime --> antibiotics changed to cefepime on 09/26/2024 Vancomycin discontinued 09/25/2024 given nasal MRSA negative Urine culture growing Lena which is likely colonizer. Follow-up blood culture --Prophylaxis VTE: IPC GI: Pepcid Lines: Right femoral, left radial Diet: N.p.o. Plan: In/out: +1.5 L, urine output 1150, +7.6 L since coming to the hospital Phosphorus and potassium are being replaced. Continue with metoprolol 5 mg every 4 hours for A-fib RVR Will give her a dose of Lasix 20 mg BiPAP nightly and as needed shortness of breath. I do think patient would benefit from an AVAPS machine at home given her presentation she was severely hypercapnic with PCO2 of 84 Patient's mentation unfortunately is not back to her baseline. Will consider either repeating a CT of the head or an MRI of the brain Continue with cefepime Slight bump in leukocytes likely from removal of the stent yesterday. Continue to monitor DC A-line Will get PT OT involved Overall I think goals of care should be discussed with the patient, will get palliative care involved I spent more than 50 minutes looking in the chart, images, discussing the plan of care with the patient, RN as well as primary team Please note the above document was generated using voice recognition software. It may contain grammatical, syntax or spelling errors.Any formal questions or concerns about the content, text or information contained within the body of this dictation should be directly addressed to the provider for clarification. Admission and Anticipated Discharge Date Admission Date: September 24, 2024 Subjective Patient seen and examined at bedside. No acute distress, no adverse events overnight She was on BiPAP 10/6, 21% FiO2. Saturating 96%. She was awake and alert but not answering any question, not moving any extremities. Has been afebrile, Tmax 37.3 Review of Systems 2 Review of Systems: All systems reviewed & are unremarkable except as noted in Subjective Physical Exam 2 Physical Exam: Constitutional: No acute distress HEENT: PERRLA, arcus senilis bilaterally Respiratory system: Decreased air entry bilaterally, no wheeze, no rhonchi, positive crackles bilateral lower lobes CVS: S1-S2 positive, no murmurs or gallops, irregular Abdomen: Soft, nontender, nondistended, positive bowel sounds x4 Extremities: +2 pulses bilaterally radialis/ dorsalis pedis, no cyanosis, +1 pitting edema bilateral lower extremity as well as upper extremity Neuro: Awake and alert, not answering any questions Psych: Normal mood, flat affect G/U: Positive Helms Skin: no rashes, warm and dry Lymphatic: no cervical or axillary lymphadenopathy Results & Data Results & Data Vital Signs (Past 12 Hours) Vital Signs Temp Pulse Pulse Resp BP Pulse Ox Pulse Ox 09/27/24 06:52 120 H 19 92 09/27/24 06:52 120 H 19 92 09/27/24 06:00 139/92 09/27/24 05:36 37.1 C 103 H 19 96 09/27/24 05:06 37.1 C 104 H 19 93 09/27/24 05:00 140/104 H 09/27/24 04:57 37.1 C 108 H 16 92 09/27/24 04:44 105 H 136/80 09/27/24 04:29 114 H 142/87 H 09/27/24 04:00 37.1 C 119 H 26 H 91 09/27/24 04:00 150/118 H 09/27/24 04:00 150/118 H 09/27/24 04:00 136/80 09/27/24 03:03 37.0 C 109 H 18 93 09/27/24 03:00 135/90 09/27/24 02:54 37.0 C 103 H 20 93 09/27/24 02:18 111 H 20 93 09/27/24 02:18 112 H 17 93 09/27/24 02:03 37.2 C 105 H 18 95 09/27/24 02:00 121/90 09/27/24 01:54 37.2 C 97 H 18 96 09/27/24 01:13 103 H 137/83 09/27/24 01:03 37.2 C 109 H 17 95 09/27/24 01:00 127/107 H 09/27/24 00:58 114 H 137/83 09/27/24 00:54 37.3 C 106 H 16 96 09/27/24 00:12 37.3 C 124 H 17 96 09/27/24 00:00 132/82 09/27/24 00:00 132/82 09/27/24 00:00 142/88 H 09/26/24 23:39 37.3 C 112 H 16 96 09/26/24 23:00 37.3 C 98 H 16 95 09/26/24 23:00 134/99 09/26/24 23:00 134/99 09/26/24 23:00 134/99 09/26/24 23:00 134/99 09/26/24 23:00 134/99 09/26/24 23:00 94 09/26/24 22:58 105 H 17 96 09/26/24 22:06 37.3 C 103 H 20 94 09/26/24 22:06 115 H 128/77 09/26/24 22:00 131/96 09/26/24 21:51 37.3 C 109 H 18 95 09/26/24 21:51 127 H 136/86 09/26/24 21:06 37.3 C 105 H 18 94 09/26/24 21:01 108/86 09/26/24 20:57 37.3 C 108 H 14 95 09/26/24 20:09 37.3 C 105 H 15 95 09/26/24 20:00 130/98 09/26/24 20:00 130/98 09/26/24 20:00 09/26/24 20:00 138/84 09/26/24 19:56 112 H 18 96 09/26/24 19:53 117 H 14 95 09/26/24 19:48 37.3 C 114 H 15 94 O2 Del Method O2 Del Method FiO2 09/27/24 06:52 21 09/27/24 06:52 BiPAP 21 09/27/24 06:00 09/27/24 05:36 09/27/24 05:06 09/27/24 05:00 09/27/24 04:57 09/27/24 04:44 09/27/24 04:29 09/27/24 04:00 09/27/24 04:00 09/27/24 04:00 09/27/24 04:00 09/27/24 03:03 09/27/24 03:00 09/27/24 02:54 09/27/24 02:18 21 09/27/24 02:18 BiPAP 21 09/27/24 02:03 09/27/24 02:00 09/27/24 01:54 09/27/24 01:13 09/27/24 01:03 09/27/24 01:00 09/27/24 00:58 09/27/24 00:54 09/27/24 00:12 09/27/24 00:00 09/27/24 00:00 09/27/24 00:00 09/26/24 23:39 09/26/24 23:00 09/26/24 23:00 09/26/24 23:00 09/26/24 23:00 09/26/24 23:00 09/26/24 23:00 09/26/24 23:00 BiPAP 09/26/24 22:58 24 09/26/24 22:06 09/26/24 22:06 09/26/24 22:00 09/26/24 21:51 09/26/24 21:51 09/26/24 21:06 09/26/24 21:01 09/26/24 20:57 09/26/24 20:09 09/26/24 20:00 09/26/24 20:00 09/26/24 20:00 BiPAP 24 09/26/24 20:00 09/26/24 19:56 24 09/26/24 19:53 BiPAP 24 09/26/24 19:48 Laboratory Results 09/27/24 04:43 09/27/24 04:43 Coding Level of Care Code 14537 SUB INP/OBS CARE 3/50MIN Diagnoses Septic shock A41.9; R65.21 Rectal bleeding K62.5 Acute and chronic respiratory failure J96.20 Urinary tract infection N39.0 Severe sepsis A41.9; R65.20 Acidosis E87.20 Respiratory failure J96.02 Chronicity: acute Respiratory failure complication: hypercapnia Atrial fibrillation with RVR I48.91 Metabolic encephalopathy G93.41 (7) Respiratory failure Chronicity: acute Respiratory failure complication: hypercapnia Qualified Code(s): J96.02 - Acute respiratory failure with hypercapnia
[2024-09-27] MEDS: PHYTONADIONE 5 MG in DEXTROSE 5% 50 ML IV ONE (09:00)
[2024-09-27] MEDS: FUROSEMIDE INJ 20 MG/2 ML VIAL IV ONE (09:04)
--- NOTE | 2024-09-27 09:04 | Cardiology Progress Note ---
Date of Service September 27, 2024 Assessment & Plan (1) CAD (coronary artery disease), [place] coronary artery: (2) Abnormal EKG: (3) Sepsis: (4) PAF (paroxysmal atrial fibrillation): (5) Anticoagulant long-term use: (6) Rectal bleeding: Plan 74-year-old female with PMHx significant for CAD s/p RADU x2 to RCA (2022), history of STEMI, HTN, HLD, COPD, chronic hypoxic respiratory failure (on 3L via NC at baseline), and paroxysmal atrial fibrillation who presented on 09/24/24 for evaluation of AMS. Recent [facility] admission (08/22-09/01/24) for sepsis due to complicated cystitis, COPD exacerbation and AFIB with RVR. Found to have stricture at the right ureterovesical junction. Underwent cystoscopy (08/28/24) with bilateral retrograde pyelogram and right ureteroscopy with ureteral dilatation and stent placement. Positive for Citrobacter and Pseudomonas. Treated with IV antiobiotics and transitioned to PO ciprofloxacin upon discharged. Metoprolol succinate ER dose increased to 50 mg twice daily and discharged on [employer] Eliquis. Sinur rhythm observed on EKG performed 08/25/24. She was discharged to [facility] and then to home. One 09/24/24, her daughter tried to wake her up and patient would not wake up and EMS was called. Chest pain reported yesterday evening. EKG revealed STEMI in anterolateral and inferior leads and heart alert was called. Intubated in ED due to ongoing issues. Cardiology consulted and initially planned to take patient to cardiac quality assurance qa lab analyst but abnormal ST changes resolved on repeat EKG. Abnormal EKG changes felt to be secondary to sepsis and metabolic derangements and cardiac cath deferred. Transferred to ICU for close monitoring. -Levophed weaned to off at 1800 on 09/25/24 -Remains in AF .On IV amiodarone infusion at 0.5 mg /min plus IV metoprolol 5 mg IV every 4 hours. BP has improved and patient has been able to receive the metoprolol. -Remains off of anticoagulation and eliquis due due to anemia. Colonoscopy on 09/25 unrevealing for source of bleeding. -LFTs elevated due to shock liver picture but trending down. -EKG 09/26/24 reveals AF RVR but no ST segment elevation. -Echo 09/25/24 with no regional wall motion abnormalities and normal LVEF. -Helms catheter and right femoral vein triple lumen catheter in place -Has received at leas 2 units of PRBCs Hgb of 6.5 g/dl improved to 9.7--> 9.4 g/dl -blood cultures x 2 negative thus far. -Agree with IV metoprolol for rate control as BP allows and short term amiodarone for rate control . -Continue cefepime. -Hold plavix, eliquis, and IV heparin -SCDs for DVT prophylaxis. Pepe Lennon DO Department of Cardiology Admission and Anticipated Discharge Date Admission Date: September 24, 2024 Subjective Patient seen in cardiology follow up. Extubated on 09/26/24, and is now on BiPap. Opens eyes to verbal stimuli , but does not answer questions or follow commands this am. Telemetry reveals ongoing atrial fibrillation, however ventricular rates sligh tly improved to 90-111 bpm compared to 120s yesterday morning. Review of Systems Review of Systems: Other (on BiPap) Physical Exam Physical Exam: Temp Pulse Resp BP Pulse Ox O2 Del Method O2 Flow Rate 37.1 C 90-111 bpm, AF 19 139/92 92 BiPAP 3 09/27/24 05:36 09/27/24 06:52 09/27/24 06:52 09/27/24 06:00 09/27/24 06:52 09/27/24 06:52 09/25/24 09:20 FiO2 21 09/27/24 06:52 General: On ventilator. HEENT: Normocephalic. Atraumatic. EOMI. Conjunctiva and sclera clear. NECK: Trachea midline. No thyromegaly. No carotid bruits. No JVD. Carotid upstrokes are brisk. Heart: tachycardia , irregular rhythm, no murmur S1 and S2 noted. Lungs: Diminished breath sounds throughout. Abdomen: Normal bowel sounds. Soft. Nontender. No abdominal bruits. Extremities: Normal capillary refill. No edema. No clubbing or cyanosis. Skin: Warm and dry. Neuro: opens eyes Results & Data Laboratory Results Cardiac Enzymes 09/27/24 Range/Units 04:43 AST 716 H (13-39) U/L CBC 09/27/24 Range/Units 04:43 WBC 15.72 H (4.8-10.8) K/ul RBC 3.33 L (4.20-5.40) M/uL Hgb 9.4 L (12.0-16.0) g/dl Hct 29.1 L (37.0-47.0) % Plt Count 269 (130-400) K/uL Neut # (Auto) 13.04 H (1.40-6.50) K/uL Lymph # (Auto) 1.47 (1.20-3.40) K/uL [place] # (Auto) 0.99 H (0.11-0.59) K/uL Eos # (Auto) 0.01 (0.00-0.50) K/uL Baso # (Auto) 0.02 (0.00-0.20) K/uL Comprehensive Metabolic Panel 09/27/24 Range/Units 04:43 Sodium 139 (136-145) mmol/L Potassium 3.8 (3.5-5.1) mmol/L Chloride 107 (98-107) mmol/L Carbon Dioxide 25 (21-32) mmol/L BUN 23 (6-23) mg/dl Creatinine 0.79 (0.6-1.2) mg/dl Glucose 96 (70-99(Fasting)) mg/dl Calcium 8.0 L (8.6-10.3) mg/dl Direct Bilirubin 0.2 (0-0.2) mg/dl AST 716 H (13-39) U/L ALT 1146 H (7-52) U/L Alkaline Phosphatase 98 (34-104) U/L Total Protein 4.9 L (6.0-8.3) gm/dl Albumin 2.7 L (3.4-5.0) gm/dl Intake and Output 09/26/24 09/27/24 09/27/24 22:59 06:59 14:59 Intake Total 1140.002 / 2906.990 1159.257 / 2906.990 Output Total 300 / 1150 150 / 1150 Balance 840.002 / 4550.739 4743.257 / 1756.990 Intake: IV 1140.002 / 2846.990 1159.257 / 2846.990 Amiodarone / D5w 360 mg In 200 140.002 / 378.256 184.257 / 378.256 ml @ 0.5 MG/MIN 16.667 mls/hr IV .Q12H GELACIO Rx#:[id number] Lactated Ringer's 1,000 ml @ 75 1000 / 1975 975 / 1975 mls/hr IV .[id number] GELACIO Rx#: [id number] Oral 0 / 0 0 / 0 Output: Urine Amount (Catheter) 300 / 750 150 / 750 Temp Sensing Helms 300 / 750 150 / 750 Other: Weight 56.5 kg Weight Measurement Method Built in [facility] (3) Sepsis Acute respiratory failure type: with hypoxia Sepsis acute organ dysfunction s tatus: with acute organ dysfunction Sepsis type: sepsis due to unspecified organism Severe sepsis acute organ dysfunction type: acute respiratory failure Severe sepsis shock status: without septic shock Qualified Code(s): A41.9 - Sepsis, unspecified organism; R65.20 - Severe sepsis without septic shock; J96.01 - Acute respiratory failure with hypoxia
[2024-09-27 09:06] LABS: INR 1.2 (0.9-1.1); Prothrombin Time 13.0 Seconds (9.0-12.0)
--- NOTE | 2024-09-27 09:18 | Gastroenterology Progress Note ---
Date of Service September 27, 2024 Assessment & Plan (1) Rectal bleeding: Plan: 74 year old female w/ history of COPD on home oxygen, HTN, CAD (STEMI in 2022 s/p RCA intervention), paroxysmal atrial fibrillation, hypothyroidism, hyperlipidemia, generalized osteoarthritis, osteoporosis, migraines admitted 09/24 w/ altered mental status, sepsis - GI was asked to evaluate for rectal bleeding CT w/ distended rectum with hyperdense material in the lumen and focal arterial phase hyperdensity in right lateral lower rectal wall suggesting active arterial leak s/p urgent colonoscopy 09/25 w/o signs of active bleeding 1. Rectal bleeding - Negative colonoscopy - Suspect diverticular bleed as source. - H/H stable thus far with Hgb 9.7 g/dl -> 9.4 g/dl. - Recommend holding Eliquis and Plavix x 48h from last suspected bleeding. Last blood noted 0116 on 09/26/24. Therefore, could restart tomorrow if no further signs of bleeding. - Supportive measures - Continune to trend HGB - Monitor GI output - Transfuse PRN per primary service 2. Elevated LFTs - ABD US reviewed - LFTs normal prior admission. Continuing to trend downwards. - Suspected shock liver - Follow hepatitis panel - Pending. - Continue to trend LFTs - Continue with supportive measures Further recommendations to come with Supervising GI provider on medical rounds. Please see co-signature comments. (2) Elevated LFTs: Admission and Anticipated Discharge Date Admission Date: September 24, 2024 Supervising Physician Co-Signing Physician Notes No further bleeding. Typically would like to wait 48 hours after cessation of bleeding as this may be diverticular. Before reintroduction of anticoagulation. If it is essential for her management of her comorbidities and anticoagulation be reintroduced can proceed tomorrow. Reconsult GI for further bleeding or recurrent bleeding. Would be reasonable to keep the unit of packed cells on h old in this patient to develop hemodynamic instability with previous bleeding though this may have been sepsis related. Subjective Pt was seen and evaluated, chart reviewed. Remains on BIPAP. Patient unable to provide any historical information. S/P urgent evaluation w/ colonoscopy 09/25/[address] Arevalo w/o signs of active bleeding but there was report of blood tinged fluid present during the evaluation. Discussed with nursing this morning. No obvious signs of active LGIB/hematochezia. Last documented blood output was around 0100. S/P 2 units RBCs. HGB 9.7 yesterday. Today Hgb is 9.4 g/dl. BUN 23. Home anticoagulants (Eliquis and Plavix) are held. CTA abd/pelvis 09/25/24 - Distended rectum with hyperdense material in the lumen and focal arterial phase hyperdensity in right lateral lower rectal wall suggesting active arterial leak Liver US 09/25/24 - Heterogeneous liver parenchyma with periportal tract thickening could suggest chronic parenchymal liver disease T-Bili - 0.5 => 0.6 => 0.5 D Bili 0.2 => 0.3 => 0.2 AST 562 => 1502 => 716 ALT 391 => 1461 => 1146 Alk Phos 103 => 87 => 98 Review of Systems Review of Systems: See HPI Physical Exam Physical Exam: Constitutional: Patient lying comfortably in bed with BIPAP intact. Opens eyes to verbal stimuli. Respiratory: Breathing is even, non-labored. Lungs vazquez are clear to auscultation anteriorly. Cardiovascular: Regular Rate and Rhythm, no murmurs, rubs or gallops appreciated. Gastrointestinal (Abdomen): Normoactive bowel sounds x4, soft, non-distended, non-tender. Musculoskeletal: Lying in bed comfortably. Results & Data Results & Data Vital Signs (Past 12 Hours) Vital Signs Temp Pulse Pulse Resp BP Pulse Ox Pulse Ox 09/27/24 09:04 99 H 157/98 H 09/27/24 06:52 120 H 19 92 09/27/24 06:52 120 H 19 92 09/27/24 06:00 139/92 09/27/24 05:36 98.8 F 103 H 19 96 09/27/24 05:06 98.8 F 104 H 19 93 09/27/24 05:00 140/104 H 09/27/24 04:57 98.8 F 108 H 16 92 09/27/24 04:44 105 H 136/80 09/27/24 04:29 114 H 142/87 H 09/27/24 04:00 98.8 F 119 H 26 H 91 09/27/24 04:00 150/118 H 09/27/24 04:00 150/118 H 09/27/24 04:00 136/80 09/27/24 03:03 98.6 F 109 H 18 93 09/27/24 03:00 135/90 09/27/24 02:54 98.6 F 103 H 20 93 09/27/24 02:18 111 H 20 93 09/27/24 02:18 112 H 17 93 09/27/24 02:03 99.0 F 105 H 18 95 09/27/24 02:00 121/90 09/27/24 01:54 99.0 F 97 H 18 96 09/27/24 01:13 103 H 137/83 09/27/24 01:03 99.0 F 109 H 17 95 09/27/24 01:00 127/107 H 09/27/24 00:58 114 H 137/83 09/27/24 00:54 99.1 F 106 H 16 96 09/27/24 00:12 99.1 F 124 H 17 96 09/27/24 00:00 132/82 09/27/24 00:00 132/82 09/27/24 00:00 142/88 H 09/26/24 23:39 99.1 F 112 H 16 96 09/26/24 23:00 99.1 F 98 H 16 95 09/26/24 23:00 134/99 09/26/24 23:00 134/99 09/26/24 23:00 134/99 09/26/24 23:00 134/99 09/26/24 23:00 134/99 09/26/24 23:00 94 09/26/24 22:58 105 H 17 96 09/26/24 22:06 99.1 F 103 H 20 94 09/26/24 22:06 115 H 128/77 09/26/24 22:00 131/96 09/26/24 21:51 99.1 F 109 H 18 95 09/26/24 21:51 127 H 136/86 O2 Del Method O2 Del Method FiO2 09/27/24 09:04 09/27/24 06:52 21 09/27/24 06:52 BiPAP 21 09/27/24 06:00 09/27/24 05:36 09/27/24 05:06 09/27/24 05:00 09/27/24 04:57 09/27/24 04:44 09/27/24 04:29 09/27/24 04:00 09/27/24 04:00 09/27/24 04:00 09/27/24 04:00 09/27/24 03:03 09/27/24 03:00 09/27/24 02:54 09/27/24 02:18 21 09/27/24 02:18 BiPAP 21 09/27/24 02:03 09/27/24 02:00 09/27/24 01:54 09/27/24 01:13 09/27/24 01:03 09/27/24 01:00 09/27/24 00:58 09/27/24 00:54 09/27/24 00:12 09/27/24 00:00 09/27/24 00:00 09/27/24 00:00 09/26/24 23:39 09/26/24 23:00 09/26/24 23:00 09/26/24 23:00 09/26/24 23:00 09/26/24 23:00 09/26/24 23:00 09/26/24 23:00 BiPAP 09/26/24 22:58 24 09/26/24 22:06 09/26/24 22:06 09/26/24 22:00 09/26/24 21:51 09/26/24 21:51 Laboratory Results 09/24/24 19:42 Aerobic Blood Culture - Preliminary Blood No growth in Aerobic bottle after 48 hours. Anaerobic Blood Culture - Preliminary No growth in Anaerobic bottle after 48 hours. 09/24/24 19:42 Aerobic Blood Culture - Preliminary Blood No growth in Aerobic bottle after 48 hours. Anaerobic Blood Culture - Preliminary No growth in Anaerobic bottle after 48 hours. 09/24/24 20:27 Urine Culture - Preliminary Urine,Straight Cath Lena albicans 09/27/24 09/27/24 09/27/24 08:11 04:43 00:05 WBC 15.72 H RBC 3.33 L Hgb 9.4 L Hct 29.1 L MCV 87.4 MCH 28.2 MCHC 32.3 RDW Std Deviation 53.4 H RDW Coeff of Chet 16.8 H Plt Count 269 MPV 9.2 L Immature Gran % (Auto) 1.2 Neut % (Auto) 82.9 Lymph % (Auto) 9.4 [place] % (Auto) 6.3 Eos % (Auto) 0.1 Baso % (Auto) 0.1 Neut # (Auto) 13.04 H Lymph # (Auto) 1.47 [place] # (Auto) 0.99 H Eos # (Auto) 0.01 Baso # (Auto) 0.02 Immature Gran # (Auto) 0.19 Absolute Nucleated RBC 0.07 Nucleated RBC % (auto) 0.4 PT 13.0 H INR 1.2 H Sodium 139 Potassium 3.8 Chloride 107 Carbon Dioxide 25 Anion Gap 7 BUN 23 Creatinine 0.79 Est Cr Clr Drug Dosing 46.4 eGFR 77.96 BUN/Creatinine Ratio 29.1 H Glucose 96 POC Glucose 96 POC Glucose (other) Calcium 8.0 L Phosphorus 1.8 L D Magnesium 2.1 Total Bilirubin 0.5 Direct Bilirubin 0.2 AST 716 H ALT 1146 H Alkaline Phosphatase 98 Total Protein 4.9 L Albumin 2.7 L Hep Bs Antigen Hepatitis C Antibody 09/26/24 09/26/24 09/26/24 17:49 11:46 07:35 WBC RBC Hgb Hct MCV MCH MCHC RDW Std Deviation RDW Coeff of Chet Plt Count MPV Immature Gran % (Auto) Neut % (Auto) Lymph % (Auto) [place] % (Auto) Eos % (Auto) Baso % (Auto) Neut # (Auto) Lymph # (Auto) [place] # (Auto) Eos # (Auto) Baso # (Auto) Immature Gran # (Auto) Absolute Nucleated RBC Nucleated RBC % (auto) PT INR Sodium Potassium Chloride Carbon Dioxide Anion Gap BUN Creatinine Est Cr Clr Drug Dosing eGFR BUN/Creatinine Ratio Glucose POC Glucose 99 117 H POC Glucose (other) Calcium Phosphorus Magnesium Total Bilirubin Direct Bilirubin AST ALT Alkaline Phosphatase Total Protein Albumin Hep Bs Antigen Negative Hepatitis C Antibody Negative 09/25/24 09/25/24 18:01 11:46 WBC RBC Hgb Hct MCV MCH MCHC RDW Std Deviation RDW Coeff of Chet Plt Count MPV Immature Gran % (Auto) Neut % (Auto) Lymph % (Auto) [place] % (Auto) Eos % (Auto) Baso % (Auto) Neut # (Auto) Lymph # (Auto) [place] # (Auto) Eos # (Auto) Baso # (Auto) Immature Gran # (Auto) Absolute Nucleated RBC Nucleated RBC % (auto) PT INR Sodium Potassium Chloride Carbon Dioxide Anion Gap BUN Creatinine Est Cr Clr Drug Dosing eGFR BUN/Creatinine Ratio Glucose POC Glucose POC Glucose (other) 157 H 164 H Calcium Phosphorus Magnesium Total Bilirubin Direct Bilirubin AST ALT Alkaline Phosphatase Total Protein Albumin Hep Bs Antigen Hepatitis C Antibody PG Care Time/CCT Total # of Minutes Spent Total Time Spent with Patient: Total time spent is greater than 50% in coordination of care (as documented) at patient's floor/unit and/or counseling patient: Coding Level of Care Code 74557 SUB INP/OBS CARE 2/35MIN Diagnoses Rectal bleeding K62.5 Elevated LFTs R79.89
[2024-09-27 09:42] LABS: Thyroid Stimulating Hormone 3.352 uIu/ml (0.300-4.500)
--- NOTE | 2024-09-27 11:22 | Palliative Care Consultation ---
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 (Negative) Urine WBC (Auto) (0-5) /hpf Urine RBC (Auto) (0-2) /hpf U Hyaline Cast (Auto) (0-2) /lpf U Epithel Cells (Auto) (0-2) /hpf Urine Bacteria (Auto) (None Seen) Hyaline Casts (None Presnt) /lpf Urine Yeast (None Prsent) Urine Comment Nasal Screen MRSA (PCR) Negative (Negative) Hepatitis A IgM Ab Hep Bs Antigen (Negative) Hep B Core IgM Ab Hepatitis C Antibody (Negative) Blood Type Antibody Screen Crossmatch 09/25/24 09/25/24 09/25/24 Range/Units 17:53 14:58 11:46 WBC (4.8-10.8) K/ul RBC (4.20-5.40) M/uL Hgb 8.7 L (12.0-16.0) g/dl POC Hgb (12.0-16.0) g/dl Hct 27.7 L (37.0-47.0) % POC Hct (37-47) % MCV (80.0-100.0) fL MCH (25.0-34.0) pg MCHC (32.0-36.0) g/dL RDW Std Deviation (36.4-46.3) fL RDW Coeff of Chet (11.5-14.5) % Plt Count (130-400) K/uL MPV (9.4-12.4) fL Immature Gran % (Auto) % Neut % (Auto) % Lymph % (Auto) % [place] % (Auto) % Eos % (Auto) % Baso % (Auto) % Neut # (Auto) (1.40-6.50) K/uL Lymph # (Auto) (1.20-3.40) K/uL [place] # (Auto) (0.11-0.59) K/uL Eos # (Auto) (0.00-0.50) K/uL Baso # (Auto) (0.00-0.20) K/uL Immature Gran # (Auto) (0.01-0.20) K/uL Absolute Nucleated RBC (0.00-0.12) K/uL Nucleated RBC % (auto) % Polychromasia PT (9.0-12.0) Seconds INR (0.9-1.1) APTT (21-31) Seconds PTT Ratio Fibrinogen (184-400) mg/dl Heparin Anti-Xa, Unfract (0.3-0.7) IU/ml Specimen Type Sample Site POC pH (7.35-7.45) POC pCO2 (35-46) mmHg POC pO2 (80-95) mmHg POC HCO3 (19-24) norma/L POC Total CO2 (24-31) mmol/L POC Base Excess (-9-1.8) norma/L O2 Sat Pulse Oximetry ABG pH (Temp Correct) (7.35-7.45) ABG pCO2 (Temp Corrct (35-46) mmHg POC ABG pO2 at Pt Temp POC ABG O2 Sat (90-95) % Donnie Test O2 Delivery Device Vent Mode POC FiO2 % End Tidal CO2 POC Sodium (135-144) mmol/L Sodium 139 (136-145) mmol/L POC Potassium (3.3-5.0) mmol/L Potassium 4.3 (3.5-5.1) mmol/L POC Chloride (101-112) mmol/L Chloride 105 (98-107) mmol/L Carbon Dioxide 27 (21-32) mmol/L Anion Gap 7 (3-11) POC Anion Gap (16-25) mmol/L POC BUN (7-18) mg/dl BUN 39 H (6-23) mg/dl Creatinine 1.17 (0.6-1.2) mg/dl POC Creatinine (0.6-1.3) mg/dl Est Cr Clr Drug Dosing 31.0 ml/min eGFR 48.66 BUN/Creatinine Ratio 33.3 H (10-20) Glucose 148 H (70-99(Fasting)) mg/dl POC Glucose (70-99) mg/dl POC Glucose (other) 164 H (70-99) mg/dl Lactate (0.4-2.0) mmol/L Calcium 8.1 L (8.6-10.3) mg/dl POC Ioniz Calcium Tabitha (1.12-1.32) mmol/l Phosphorus 4.1 (2.5-4.9) mg/dl Magnesium 2.1 (1.7-2.4) mg/dl Total Bilirubin (0.2-1.0) mg/dl Direct Bilirubin (0-0.2) mg/dl AST (13-39) U/L ALT (7-52) U/L Alkaline Phosphatase (34-104) U/L Troponin I High Sens 1189.4 H* (0-14) pg/ml Total Protein (6.0-8.3) gm/dl Albumin (3.4-5.0) gm/dl Procalcitonin (0-0.5) ng/ml TSH (0.300-4.500) uIu/ml Random Cortisol mcg/dl Urine Color Urine Appearance (Clear) Urine pH (4.5-7.5) Ur Specific [place] (1.000-1.030) Urine Protein (Negative) Urine Glucose (UA) (Negative) Urine Ketones (Negative) Urine Blood (Negative) Urine Nitrite (Negative) Urine Bilirubin (Negative) Urine Urobilinogen (Negative) Ur Leukocyte Esterase (Negative) Urine WBC (Auto) (0-5) /hpf Urine RBC (Auto) (0-2) /hpf U Hyaline Cast (Auto) (0-2) /lpf U Epithel Cells (Auto) (0-2) /hpf Urine Bacteria (Auto) (None Seen) Hyaline Casts (None Presnt) /lpf Urine Yeast (None Prsent) Urine Comment Nasal Screen MRSA (PCR) (Negative) Hepatitis A IgM Ab Hep Bs Antigen (Negative) Hep B Core IgM Ab Hepatitis C Antibody (Negative) Blood Type Antibody Screen Crossmatch 09/25/24 09/25/24 09/25/24 Range/Units 11:40 10:31 06:43 WBC (4.8-10.8) K/ul RBC (4.20-5.40) M/uL Hgb 8.3 L (12.0-16.0) g/dl POC Hgb (12.0-16.0) g/dl Hct 26.8 L (37.0-47.0) % POC Hct (37-47) % MCV (80.0-100.0) fL MCH (25.0-34.0) pg MCHC (32.0-36.0) g/dL RDW Std Deviation (36.4-46.3) fL RDW Coeff of Chet (11.5-14.5) % Plt Count (130-400) K/uL MPV (9.4-12.4) fL Immature Gran % (Auto) % Neut % (Auto) % Lymph % (Auto) % [place] % (Auto) % Eos % (Auto) % Baso % (Auto) % Neut # (Auto) (1.40-6.50) K/uL Lymph # (Auto) (1.20-3.40) K/uL [place] # (Auto) (0.11-0.59) K/uL Eos # (Auto) (0.00-0.50) K/uL Baso # (Auto) (0.00-0.20) K/uL Immature Gran # (Auto) (0.01-0.20) K/uL Absolute Nucleated RBC (0.00-0.12) K/uL Nucleated RBC % (auto) % Polychromasia PT (9.0-12.0) Seconds INR (0.9-1.1) APTT (21-31) Seconds PTT Ratio Fibrinogen (184-400) mg/dl Heparin Anti-Xa, Unfract (0.3-0.7) IU/ml Specimen Type Sample Site POC pH (7.35-7.45) POC pCO2 (35-46) mmHg POC pO2 (80-95) mmHg POC HCO3 (19-24) norma/L POC Total CO2 (24-31) mmol/L POC Base Excess (-9-1.8) norma/L O2 Sat Pulse Oximetry ABG pH (Temp Correct) (7.35-7.45) ABG pCO2 (Temp Corrct (35-46) mmHg POC ABG pO2 at Pt Temp POC ABG O2 Sat (90-95) % Donnie Test O2 Delivery Device Vent Mode POC FiO2 % End Tidal CO2 POC Sodium (135-144) mmol/L Sodium (136-145) mmol/L POC Potassium (3.3-5.0) mmol/L Potassium (3.5-5.1) mmol/L POC Chloride (101-112) mmol/L Chloride (98-107) mmol/L Carbon Dioxide (21-32) mmol/L Anion Gap (3-11) POC Anion Gap (16-25) mmol/L POC BUN (7-18) mg/dl BUN (6-23) mg/dl Creatinine (0.6-1.2) mg/dl POC Creatinine (0.6-1.3) mg/dl Est Cr Clr Drug Dosing ml/min eGFR BUN/Creatinine Ratio (10-20) Glucose (70-99(Fasting)) mg/dl POC Glucose (70-99) mg/dl POC Glucose (other) 150 H (70-99) mg/dl Lactate (0.4-2.0) mmol/L Calcium (8.6-10.3) mg/dl POC Ioniz Calcium Tabitha (1.12-1.32) mmol/l Phosphorus (2.5-4.9) mg/dl Magnesium (1.7-2.4) mg/dl Total Bilirubin (0.2-1.0) mg/dl Direct Bilirubin (0-0.2) mg/dl AST (13-39) U/L ALT (7-52) U/L Alkaline Phosphatase (34-104) U/L Troponin I High Sens 1178.4 H* D (0-14) pg/ml Total Protein (6.0-8.3) gm/dl Albumin (3.4-5.0) gm/dl Procalcitonin (0-0.5) ng/ml TSH (0.300-4.500) uIu/ml Random Cortisol mcg/dl Urine Color Urine Appearance (Clear) Urine pH (4.5-7.5) Ur Specific [place] (1.000-1.030) Urine Protein (Negative) Urine Glucose (UA) (Negative) Urine Ketones (Negative) Urine Blood (Negative) Urine Nitrite (Negative) Urine Bilirubin (Negative) Urine Urobilinogen (Negative) Ur Leukocyte Esterase (Negative) Urine WBC (Auto) (0-5) /hpf Urine RBC (Auto) (0-2) /hpf U Hyaline Cast (Auto) (0-2) /lpf U Epithel Cells (Auto) (0-2) /hpf Urine Bacteria (Auto) (None Seen) Hyaline Casts (None Presnt) /lpf Urine Yeast (None Prsent) Urine Comment Nasal Screen MRSA (PCR) (Negative) Hepatitis A IgM Ab Hep Bs Antigen (Negative) Hep B Core IgM Ab Hepatitis C Antibody (Negative) Blood Type Antibody Screen Crossmatch 09/25/24 09/25/24 09/25/24 Range/Units 06:11 03:40 03:04 WBC (4.8-10.8) K/ul RBC (4.20-5.40) M/uL Hgb (12.0-16.0) g/dl POC Hgb 6.8 L* (12.0-16.0) g/dl Hct (37.0-47.0) % POC Hct 20 L* (37-47) % MCV (80.0-100.0) fL MCH (25.0-34.0) pg MCHC (32.0-36.0) g/dL RDW Std Deviation (36.4-46.3) fL RDW Coeff of Chet (11.5-14.5) % Plt Count (130-400) K/uL MPV (9.4-12.4) fL Immature Gran % (Auto) % Neut % (Auto) % Lymph % (Auto) % [place] % (Auto) % Eos % (Auto) % Baso % (Auto) % Neut # (Auto) (1.40-6.50) K/uL Lymph # (Auto) (1.20-3.40) K/uL [place] # (Auto) (0.11-0.59) K/uL Eos # (Auto) (0.00-0.50) K/uL Baso # (Auto) (0.00-0.20) K/uL Immature Gran # (Auto) (0.01-0.20) K/uL Absolute Nucleated RBC (0.00-0.12) K/uL Nucleated RBC % (auto) % Polychromasia PT 21.4 H (9.0-12.0) Seconds INR 2.1 H (0.9-1.1) APTT 34 H (21-31) Seconds PTT Ratio 1.3 Fibrinogen 393 (184-400) mg/dl Heparin Anti-Xa, Unfract > 1.50 H* (0.3-0.7) IU/ml Specimen Type Arterial Sample Site Art Line POC pH 7.31 L (7.35-7.45) POC pCO2 41 (35-46) mmHg POC pO2 84 (80-95) mmHg POC HCO3 21 (19-24) norma/L POC Total CO2 22 L (24-31) mmol/L POC Base Excess -6.0 (-9-1.8) norma/L O2 Sat Pulse Oximetry 97 ABG pH (Temp Correct) 7.314 L (7.35-7.45) ABG pCO2 (Temp Corrct 40 (35-46) mmHg POC ABG pO2 at Pt Temp 80 POC ABG O2 Sat 95.0 (90-95) % Donnie Test NA O2 Delivery Device Ventilator Vent Mode AC POC FiO2 30 % End Tidal CO2 26 POC Sodium 141 (135-144) mmol/L Sodium (136-145) mmol/L POC Potassium 4.7 (3.3-5.0) mmol/L Potassium (3.5-5.1) mmol/L POC Chloride (101-112) mmol/L Chloride (98-107) mmol/L Carbon Dioxide (21-32) mmol/L Anion Gap (3-11) POC Anion Gap (16-25) mmol/L POC BUN (7-18) mg/dl BUN (6-23) mg/dl Creatinine (0.6-1.2) mg/dl POC Creatinine (0.6-1.3) mg/dl Est Cr Clr Drug Dosing ml/min eGFR BUN/Creatinine Ratio (10-20) Glucose (70-99(Fasting)) mg/dl POC Glucose (70-99) mg/dl POC Glucose (other) (70-99) mg/dl Lactate 8.3 H* (0.4-2.0) mmol/L Calcium (8.6-10.3) mg/dl POC Ioniz Calcium Tabitha (1.12-1.32) mmol/l Phosphorus (2.5-4.9) mg/dl Magnesium (1.7-2.4) mg/dl Total Bilirubin (0.2-1.0) mg/dl Direct Bilirubin (0-0.2) mg/dl AST (13-39) U/L ALT (7-52) U/L Alkaline Phosphatase (34-104) U/L Troponin I High Sens (0-14) pg/ml Total Protein (6.0-8.3) gm/dl Albumin (3.4-5.0) gm/dl Procalcitonin (0-0.5) ng/ml TSH (0.300-4.500) uIu/ml Random Cortisol mcg/dl Urine Color Urine Appearance (Clear) Urine pH (4.5-7.5) Ur Specific [place] (1.000-1.030) Urine Protein (Negative) Urine Glucose (UA) (Negative) Urine Ketones (Negative) Urine Blood (Negative) Urine Nitrite (Negative) Urine Bilirubin (Negative) Urine Urobilinogen (Negative) Ur Leukocyte Esterase (Negative) Urine WBC (Auto) (0-5) /hpf Urine RBC (Auto) (0-2) /hpf U Hyaline Cast (Auto) (0-2) /lpf U Epithel Cells (Auto) (0-2) /hpf Urine Bacteria (Auto) (None Seen) Hyaline Casts (None Presnt) /lpf Urine Yeast (None Prsent) Urine Comment Nasal Screen MRSA (PCR) (Negative) Hepatitis A IgM Ab Hep Bs Antigen (Negative) Hep B Core IgM Ab Hepatitis C Antibody (Negative) Blood Type O Positive Antibody Screen NEGATIVE Crossmatch See Detail 09/25/24 09/25/24 09/25/24 Range/Units 02:16 02:13 00:31 WBC 22.07 H (4.8-10.8) K/ul RBC 2.40 L (4.20-5.40) M/uL Hgb 6.5 L* (12.0-16.0) g/dl POC Hgb (12.0-16.0) g/dl Hct 22.3 L (37.0-47.0) % POC Hct (37-47) % MCV 92.9 (80.0-100.0) fL MCH 27.1 (25.0-34.0) pg MCHC 29.1 L (32.0-36.0) g/dL RDW Std Deviation 60.8 H (36.4-46.3) fL RDW Coeff of Chet 17.6 H (11.5-14.5) % Plt Count 435 H (130-400) K/uL MPV 9.1 L (9.4-12.4) fL Immature Gran % (Auto) 3.5 % Neut % (Auto) 82.3 % Lymph % (Auto) 9.6 % [place] % (Auto) 4.5 % Eos % (Auto) 0.0 % Baso % (Auto) 0.1 % Neut # (Auto) 18.14 H (1.40-6.50) K/uL Lymph # (Auto) 2.12 (1.20-3.40) K/uL [place] # (Auto) 1.00 H (0.11-0.59) K/uL Eos # (Auto) 0.01 (0.00-0.50) K/uL Baso # (Auto) 0.03 (0.00-0.20) K/uL Immature Gran # (Auto) 0.77 H (0.01-0.20) K/uL Absolute Nucleated RBC (0.00-0.12) K/uL Nucleated RBC % (auto) % Polychromasia 1+ PT (9.0-12.0) Seconds INR (0.9-1.1) APTT (21-31) Seconds PTT Ratio Fibrinogen (184-400) mg/dl Heparin Anti-Xa, Unfract (0.3-0.7) IU/ml Specimen Type Sample Site POC pH (7.35-7.45) POC pCO2 (35-46) mmHg POC pO2 (80-95) mmHg POC HCO3 (19-24) norma/L POC Total CO2 (24-31) mmol/L POC Base Excess (-9-1.8) norma/L O2 Sat Pulse Oximetry ABG pH (Temp Correct) (7.35-7.45) ABG pCO2 (Temp Corrct (35-46) mmHg POC ABG pO2 at Pt Temp POC ABG O2 Sat (90-95) % Donnie Test O2 Delivery Device Vent Mode POC FiO2 % End Tidal CO2 POC Sodium (135-144) mmol/L Sodium 142 (136-145) mmol/L POC Potassium (3.3-5.0) mmol/L Potassium 5.0 (3.5-5.1) mmol/L POC Chloride (101-112) mmol/L Chloride 106 (98-107) mmol/L Carbon Dioxide 23 (21-32) mmol/L Anion Gap 13 H (3-11) POC Anion Gap (16-25) mmol/L POC BUN (7-18) mg/dl BUN 36 H (6-23) mg/dl Creatinine 1.04 (0.6-1.2) mg/dl POC Creatinine (0.6-1.3) mg/dl Est Cr Clr Drug Dosing 34.7 ml/min eGFR 56.05 BUN/Creatinine Ratio 34.6 H (10-20) Glucose 201 H (70-99(Fasting)) mg/dl POC Glucose 250 H (70-99) mg/dl POC Glucose (other) (70-99) mg/dl Lactate 8.1 H* (0.4-2.0) mmol/L Calcium 7.4 L (8.6-10.3) mg/dl POC Ioniz Calcium Tabitha (1.12-1.32) mmol/l Phosphorus 4.5 (2.5-4.9) mg/dl Magnesium 2.1 (1.7-2.4) mg/dl Total Bilirubin 0.5 (0.2-1.0) mg/dl Direct Bilirubin 0.2 (0-0.2) mg/dl AST 2562 H (13-39) U/L ALT 1391 H (7-52) U/L Alkaline Phosphatase 103 (34-104) U/L Troponin I High Sens 963.3 H* D (0-14) pg/ml Total Protein 4.7 L D (6.0-8.3) gm/dl Albumin 2.4 L (3.4-5.0) gm/dl Procalcitonin (0-0.5) ng/ml TSH (0.300-4.500) uIu/ml Random Cortisol mcg/dl Urine Color Urine Appearance (Clear) Urine pH (4.5-7.5) Ur Specific [place] (1.000-1.030) Urine Protein (Negative) Urine Glucose (UA) (Negative) Urine Ketones (Negative) Urine Blood (Negative) Urine Nitrite (Negative) Urine Bilirubin (Negative) Urine Urobilinogen (Negative) Ur Leukocyte Esterase (Negative) Urine WBC (Auto) (0-5) /hpf Urine RBC (Auto) (0-2) /hpf U Hyaline Cast (Auto) (0-2) /lpf U Epithel Cells (Auto) (0-2) /hpf Urine Bacteria (Auto) (None Seen) Hyaline Casts (None Presnt) /lpf Urine Yeast (None Prsent) Urine Comment Nasal Screen MRSA (PCR) (Negative) Hepatitis A IgM Ab Hep Bs Antigen (Negative) Hep B Core IgM Ab Hepatitis C Antibody (Negative) Blood Type Antibody Screen Crossmatch 09/24/24 09/24/24 09/24/24 Range/Units 22:46 21:49 20:27 WBC (4.8-10.8) K/ul RBC (4.20-5.40) M/uL Hgb (12.0-16.0) g/dl POC Hgb 7.1 L (12.0-16.0) g/dl Hct (37.0-47.0) % POC Hct 21 L (37-47) % MCV (80.0-100.0) fL MCH (25.0-34.0) pg MCHC (32.0-36.0) g/dL RDW Std Deviation (36.4-46.3) fL RDW Coeff of Chet (11.5-14.5) % Plt Count (130-400) K/uL MPV (9.4-12.4) fL Immature Gran % (Auto) % Neut % (Auto) % Lymph % (Auto) % [place] % (Auto) % Eos % (Auto) % Baso % (Auto) % Neut # (Auto) (1.40-6.50) K/uL Lymph # (Auto) (1.20-3.40) K/uL [place] # (Auto) (0.11-0.59) K/uL Eos # (Auto) (0.00-0.50) K/uL Baso # (Auto) (0.00-0.20) K/uL Immature Gran # (Auto) (0.01-0.20) K/uL Absolute Nucleated RBC (0.00-0.12) K/uL Nucleated RBC % (auto) % Polychromasia PT (9.0-12.0) Seconds INR (0.9-1.1) APTT (21-31) Seconds PTT Ratio Fibrinogen (184-400) mg/dl Heparin Anti-Xa, Unfract (0.3-0.7) IU/ml Specimen Type Sample Site POC pH 7.32 L (7.35-7.45) POC pCO2 42 (35-46) mmHg POC pO2 565 H (80-95) mmHg POC HCO3 21 (19-24) norma/L POC Total CO2 23 L (24-31) mmol/L POC Base Excess -5.0 (-9-1.8) norma/L O2 Sat Pulse Oximetry ABG pH (Temp Correct) (7.35-7.45) ABG pCO2 (Temp Corrct (35-46) mmHg POC ABG pO2 at Pt Temp POC ABG O2 Sat 100.0 H (90-95) % Donnie Test O2 Delivery Device Vent Mode POC FiO2 % End Tidal CO2 POC Sodium 140 (135-144) mmol/L Sodium 141 (136-145) mmol/L POC Potassium 5.0 (3.3-5.0) mmol/L Potassium 5.4 H (3.5-5.1) mmol/L POC Chloride (101-112) mmol/L Chloride 105 (98-107) mmol/L Carbon Dioxide 22 (21-32) mmol/L Anion Gap 14 H (3-11) POC Anion Gap (16-25) mmol/L POC BUN (7-18) mg/dl BUN 35 H (6-23) mg/dl Creatinine 1.13 (0.6-1.2) mg/dl POC Creatinine (0.6-1.3) mg/dl Est Cr Clr Drug Dosing 31.9 ml/min eGFR 50.74 BUN/Creatinine Ratio 31.0 H (10-20) Glucose 183 H (70-99(Fasting)) mg/dl POC Glucose (70-99) mg/dl POC Glucose (other) (70-99) mg/dl Lactate 6.3 H* (0.4-2.0) mmol/L Calcium 7.6 L (8.6-10.3) mg/dl POC Ioniz Calcium Tabitha (1.12-1.32) mmol/l Phosphorus (2.5-4.9) mg/dl Magnesium (1.7-2.4) mg/dl Total Bilirubin (0.2-1.0) mg/dl Direct Bilirubin (0-0.2) mg/dl AST (13-39) U/L ALT (7-52) U/L Alkaline Phosphatase (34-104) U/L Troponin I High Sens 792.0 H* D (0-14) pg/ml Total Protein (6.0-8.3) gm/dl Albumin (3.4-5.0) gm/dl Procalcitonin (0-0.5) ng/ml TSH (0.300-4.500) uIu/ml Random Cortisol mcg/dl Urine Color [place] Urine Appearance Turbid A (Clear) Urine pH 5.0 (4.5-7.5) Ur Specific [place] 1.014 (1.000-1.030) Urine Protein 2+ H (Negative) Urine Glucose (UA) Negative (Negative) Urine Ketones Negative (Negative) Urine Blood 3+ H (Negative) Urine Nitrite Negative (Negative) Urine Bilirubin 1+ H (Negative) Urine Urobilinogen Negative (Negative) Ur Leukocyte Esterase 3+ H (Negative) Urine WBC (Auto) >50 H (0-5) /hpf Urine RBC (Auto) >20 H (0-2) /hpf U Hyaline Cast (Auto) >20 H (0-2) /lpf U Epithel Cells (Auto) 3-5 H (0-2) /hpf Urine Bacteria (Auto) 2+ H (None Seen) Hyaline Casts Present A (None Presnt) /lpf Urine Yeast Present A (None Prsent) Urine Comment Nasal Screen MRSA (PCR) (Negative) Hepatitis A IgM Ab Hep Bs Antigen (Negative) Hep B Core IgM Ab Hepatitis C Antibody (Negative) Blood Type Antibody Screen Crossmatch 09/24/24 09/24/24 09/24/24 Range/Units 20:23 20:17 19:58 WBC 20.14 H (4.8-10.8) K/ul RBC 3.03 L (4.20-5.40) M/uL Hgb 8.4 L (12.0-16.0) g/dl POC Hgb 9.5 L (12.0-16.0) g/dl Hct 29.2 L (37.0-47.0) % POC Hct 28 L (37-47) % MCV 96.4 (80.0-100.0) fL MCH 27.7 (25.0-34.0) pg MCHC 28.8 L (32.0-36.0) g/dL RDW Std Deviation 62.7 H (36.4-46.3) fL RDW Coeff of Chet 17.6 H (11.5-14.5) % Plt Count 529 H (130-400) K/uL MPV 9.0 L (9.4-12.4) fL Immature Gran % (Auto) 2.4 % Neut % (Auto) 87.2 % Lymph % (Auto) 4.7 % [place] % (Auto) 5.5 % Eos % (Auto) 0.1 % Baso % (Auto) 0.1 % Neut # (Auto) 17.55 H (1.40-6.50) K/uL Lymph # (Auto) 0.94 L (1.20-3.40) K/uL [place] # (Auto) 1.11 H (0.11-0.59) K/uL Eos # (Auto) 0.03 (0.00-0.50) K/uL Baso # (Auto) 0.03 (0.00-0.20) K/uL Immature Gran # (Auto) 0.48 H (0.01-0.20) K/uL Absolute Nucleated RBC 0.02 (0.00-0.12) K/uL Nucleated RBC % (auto) 0.1 % Polychromasia PT 20.8 H (9.0-12.0) Seconds INR 2.0 H (0.9-1.1) APTT 37 H (21-31) Seconds PTT Ratio 1.4 Fibrinogen (184-400) mg/dl Heparin Anti-Xa, Unfract (0.3-0.7) IU/ml Specimen Type Sample Site POC pH (7.35-7.45) POC pCO2 (35-46) mmHg POC pO2 (80-95) mmHg POC HCO3 (19-24) norma/L POC Total CO2 28 (24-31) mmol/L POC Base Excess (-9-1.8) norma/L O2 Sat Pulse Oximetry ABG pH (Temp Correct) (7.35-7.45) ABG pCO2 (Temp Corrct (35-46) mmHg POC ABG pO2 at Pt Temp POC ABG O2 Sat (90-95) % Donnie Test O2 Delivery Device Vent Mode POC FiO2 % End Tidal CO2 POC Sodium 138 (135-144) mmol/L Sodium 141 (136-145) mmol/L POC Potassium 5.8 H (3.3-5.0) mmol/L Potassium 5.9 H (3.5-5.1) mmol/L POC Chloride 100 L (101-112) mmol/L Chloride 99 (98-107) mmol/L Carbon Dioxide 29 (21-32) mmol/L Anion Gap 13 H (3-11) POC Anion Gap 17.0 (16-25) mmol/L POC BUN 31 H (7-18) mg/dl BUN 33 H (6-23) mg/dl Creatinine 1.35 H (0.6-1.2) mg/dl POC Creatinine 1.4 H (0.6-1.3) mg/dl Est Cr Clr Drug Dosing 26.7 ml/min eGFR 40.98 BUN/Creatinine Ratio 24.4 H (10-20) Glucose 186 H (70-99(Fasting)) mg/dl POC Glucose 196 H (70-99) mg/dl POC Glucose (other) 177 H (70-99) mg/dl Lactate 6.6 H* (0.4-2.0) mmol/L Calcium 8.4 L (8.6-10.3) mg/dl POC Ioniz Calcium Tabitha 1.01 L (1.12-1.32) mmol/l Phosphorus (2.5-4.9) mg/dl Magnesium 2.4 (1.7-2.4) mg/dl Total Bilirubin 0.8 (0.2-1.0) mg/dl Direct Bilirubin 0.4 H (0-0.2) mg/dl AST 1122 H (13-39) U/L ALT 692 H (7-52) U/L Alkaline Phosphatase 132 H (34-104) U/L Troponin I High Sens 415.2 H* (0-14) pg/ml Total Protein 6.1 (6.0-8.3) gm/dl Albumin 3.1 L (3.4-5.0) gm/dl Procalcitonin 4.50 H (0-0.5) ng/ml TSH (0.300-4.500) uIu/ml Random Cortisol mcg/dl Urine Color Urine Appearance (Clear) Urine pH (4.5-7.5) Ur Specific [place] (1.000-1.030) Urine Protein (Negative) Urine Glucose (UA) (Negative) Urine Ketones (Negative) Urine Blood (Negative) Urine Nitrite (Negative) Urine Bilirubin (Negative) Urine Urobilinogen (Negative) Ur Leukocyte Esterase (Negative) Urine WBC (Auto) (0-5) /hpf Urine RBC (Auto) (0-2) /hpf U Hyaline Cast (Auto) (0-2) /lpf U Epithel Cells (Auto) (0-2) /hpf Urine Bacteria (Auto) (None Seen) Hyaline Casts (None Presnt) /lpf Urine Yeast (None Prsent) Urine Comment Nasal Screen MRSA (PCR) (Negative) Hepatitis A IgM Ab Hep Bs Antigen (Negative) Hep B Core IgM Ab Hepatitis C Antibody (Negative) Blood Type Antibody Screen Crossmatch 09/24/24 Range/Units 19:14 WBC (4.8-10.8) K/ul RBC (4.20-5.40) M/uL Hgb (12.0-16.0) g/dl POC Hgb 9.9 L (12.0-16.0) g/dl Hct (37.0-47.0) % POC Hct 29 L (37-47) % MCV (80.0-100.0) fL MCH (25.0-34.0) pg MCHC (32.0-36.0) g/dL RDW Std Deviation (36.4-46.3) fL RDW Coeff of Chet (11.5-14.5) % Plt Count (130-400) K/uL MPV (9.4-12.4) fL Immature Gran % (Auto) % Neut % (Auto) % Lymph % (Auto) % [place] % (Auto) % Eos % (Auto) % Baso % (Auto) % Neut # (Auto) (1.40-6.50) K/uL Lymph # (Auto) (1.20-3.40) K/uL [place] # (Auto) (0.11-0.59) K/uL Eos # (Auto) (0.00-0.50) K/uL Baso # (Auto) (0.00-0.20) K/uL Immature Gran # (Auto) (0.01-0.20) K/uL Absolute Nucleated RBC (0.00-0.12) K/uL Nucleated RBC % (auto) % Polychromasia PT (9.0-12.0) Seconds INR (0.9-1.1) APTT (21-31) Seconds PTT Ratio Fibrinogen (184-400) mg/dl Heparin Anti-Xa, Unfract (0.3-0.7) IU/ml Specimen Type Sample Site POC pH 7.17 L* (7.35-7.45) POC pCO2 84 H (35-46) mmHg POC pO2 295 H (80-95) mmHg POC HCO3 31 H (19-24) norma/L POC Total CO2 34 H (24-31) mmol/L POC Base Excess 3.0 H (-9-1.8) norma/L O2 Sat Pulse Oximetry ABG pH (Temp Correct) (7.35-7.45) ABG pCO2 (Temp Corrct (35-46) mmHg POC ABG pO2 at Pt Temp POC ABG O2 Sat 100.0 H (90-95) % Donnie Test O2 Delivery Device Vent Mode POC FiO2 % End Tidal CO2 POC Sodium 136 (135-144) mmol/L Sodium (136-145) mmol/L POC Potassium 5.8 H (3.3-5.0) mmol/L Potassium (3.5-5.1) mmol/L POC Chloride (101-112) mmol/L Chloride (98-107) mmol/L Carbon Dioxide (21-32) mmol/L Anion Gap (3-11) POC Anion Gap (16-25) mmol/L POC BUN (7-18) mg/dl BUN (6-23) mg/dl Creatinine (0.6-1.2) mg/dl POC Creatinine (0.6-1.3) mg/dl Est Cr Clr Drug Dosing ml/min eGFR BUN/Creatinine Ratio (10-20) Glucose (70-99(Fasting)) mg/dl POC Glucose (70-99) mg/dl POC Glucose (other) (70-99) mg/dl Lactate (0.4-2.0) mmol/L Calcium (8.6-10.3) mg/dl POC Ioniz Calcium Tabitha (1.12-1.32) mmol/l Phosphorus (2.5-4.9) mg/dl Magnesium (1.7-2.4) mg/dl Total Bilirubin (0.2-1.0) mg/dl Direct Bilirubin (0-0.2) mg/dl AST (13-39) U/L ALT (7-52) U/L Alkaline Phosphatase (34-104) U/L Troponin I High Sens (0-14) pg/ml Total Protein (6.0-8.3) gm/dl Albumin (3.4-5.0) gm/dl Procalcitonin (0-0.5) ng/ml TSH (0.300-4.500) uIu/ml Random Cortisol mcg/dl Urine Color Urine Appearance (Clear) Urine pH (4.5-7.5) Ur Specific [place] (1.000-1.030) Urine Protein (Negative) Urine Glucose (UA) (Negative) Urine Ketones (Negative) Urine Blood (Negative) Urine Nitrite (Negative) Urine Bilirubin (Negative) Urine Urobilinogen (Negative) Ur Leukocyte Esterase (Negative) Urine WBC (Auto) (0-5) /hpf Urine RBC (Auto) (0-2) /hpf U Hyaline Cast (Auto) (0-2) /lpf U Epithel Cells (Auto) (0-2) /hpf Urine Bacteria (Auto) (None Seen) Hyaline Casts (None Presnt) /lpf Urine Yeast (None Prsent) Urine Comment Nasal Screen MRSA (PCR) (Negative) Hepatitis A IgM Ab Hep Bs Antigen (Negative) Hep B Core IgM Ab Hepatitis C Antibody (Negative) Blood Type Antibody Screen Crossmatch Diagnostic Findings Chest X-Ray 09/24/24 18:42 Chest radiograph, one view History: Sepsis Comparison: 08/22/2024 Findings: Single AP view of the chest performed. No focal consolidation or pleural effusion. No pneumothorax. The lungs are emphysematous. The cardiomediastinal silhouette is within normal limits. Normal pulmonary vascularity. No evidence for lymphadenopathy. No visualized bony or soft tissue abnormality. Impression: Normal chest radiograph. The lower chest is not completely in the [id number]. Electronically signed by Meliton Blackwell 09-24-2024 8:[address] 09/24/24 18:51 Exam(s): CT HEAD Without Contrast EXAM: CT Head Without Intravenous Contrast CLINICAL HISTORY: Altered mental status TECHNIQUE: Axial computed tomography images of the head/brain without intravenous contrast. CTDI is 37 mGy and DLP is 702 mGy-cm. Automated exposure control was utilized for the study. A dose lowering technique was utilized adhering to the principles of ALARA. COMPARISON: No relevant prior studies available. FINDINGS: Brain: No intracranial hemorrhage, mass-effect or midline shift. No abnormal extra axial fluid. No evidence of acute infarct. 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 Ventricles: Unremarkable. No ventriculomegaly. Bones/joints: Unremarkable. No acute fracture. Soft tissues: Unremarkable. Sinuses: Unremarkable as visualized. No acute sinusitis. Mastoid air cells: Unremarkable as visualized. No mastoid effusion. IMPRESSION: No acute intracranial finding. Electronically signed by: Gardenia Zheng MD 09/25/24 01:17 AM Chest X-Ray 09/24/24 21:34 Exam(s): XR CXR 1 VIEW EXAM: XR Chest, 1 View CLINICAL HISTORY: Reason for exam: intubation. TECHNIQUE: Frontal view of the chest. COMPARISON: X-ray chest: 09/24/2024 and 1926 hrs. FINDINGS: A suboptimally placed endotracheal tube seen with the tip abutting the right main bronchus. This needs to be retracted by pulling at least 3 cm. Lungs: Hyperinflated lungs/COPD bilateral perihilar mildly increased interstitial markings seen in both lung vazquez, more in the left lower lobe.. No consolidation. Pleural space: No pleural effusion. No pneumothorax. Heart: Atherosclerotic tortuosity of the aortic arch. No cardiomegaly. Mediastinum: Normal mediastinal contour. Bones/joints: Osteopenia.. No acute fracture. Possibly rotator cuff pathology. A small metallic anchor clip present laterally over the right humeral head.. IMPRESSION: A suboptimally placed endotracheal tube with the tip proximally at the right main bronchus. This needs to be retracted prior to its use. No consolidation, pulmonary vascular congestion or pleural effusion seen in the visualized lungs. . Electronically signed by: Kayden Salcedo MD, DABR 09/24/24 23:23 PM Abdomen/Pelvis CT 09/24/24 22:00 Exam(s): CT ABDOMEN + PELVIS Without Contrast EXAM: CT Abdomen and Pelvis Without Intravenous Contrast CLINICAL HISTORY: Ureteral stent, septic shock. TECHNIQUE: Axial computed tomography images of the abdomen and pelvis without intravenous contrast. CTDI is 37 mGy and DLP is 702 mGy-cm. Automated exposure control was utilized for the study. A dose lowering technique was utilized adhering to the principles of ALARA. COMPARISON: No relevant prior studies available. FINDINGS: Lung bases: Unremarkable. No mass. No consolidation. ABDOMEN: Liver: Unremarkable. Gallbladder and bile ducts: Unremarkable. No calcified stones. No ductal dilation. Pancreas: Unremarkable. No ductal dilation. Spleen: Unremarkable. No splenomegaly. Adrenals: Unremarkable. No mass. Kidneys and ureters: Minimal right hydronephrosis with a ureteral stent in good position. Left kidney is unremarkable. Stomach and bowel: The rectum is fluid-filled. There is prominence of the wall throughout the colon. No obstruction. No mucosal thickening. PELVIS: Appendix: No findings to suggest acute appendicitis. Bladder: Thickening of the urinary bladder wall could relate to nondistention or cystitis. A Helms catheter is present. No stones. Reproductive: Unremarkable as visualized. ABDOMEN and PELVIS: Intraperitoneal space: Unremarkable. No free air. No significant fluid collection. Bones/joints: Age-indeterminate severe compression fracture of T11. No dislocation. Soft tissues: Unremarkable. Vasculature: Abdominal aortic aneurysm measuring 3.1 cm in maximum diameter. Lymph nodes: Unremarkable. No enlarged lymph nodes. Tubes, lines and devices: The NG tube side port is at the gastroesophageal junction. IMPRESSION: 1. Minimal right hydronephrosis with a ureteral stent in good position. 2. Thickening of the urinary bladder wall could relate to nondistention or cystitis. 3. The rectum is fluid-filled. Question diarrheal state. 4. There is prominence of the wall throughout the colon. This is likely infectious or inflammatory. 5. Abdominal aortic aneurysm measuring 3.1 cm in maximum diameter. Recommend abdomen/pelvis CT or MR imaging follow-up in 3 years. 6. Age-indeterminate severe compression fracture of T11. 7. The NG tube side port is at the gastroesophageal junction. Advancement is recommended. Electronically signed by: Gardenia Zheng MD 09/25/24 01:24 AM Chest X-Ray 09/24/24 22:06 Exam(s): XR CXR 1 VIEW EXAM: XR Chest, 1 View CLINICAL HISTORY: Reason for exam: ETT and OGT. TECHNIQUE: Frontal view of the chest. COMPARISON: X-ray chest: 09/24/2024 at 2135 hrs. FINDINGS: Again noted the tip of the endotracheal tube is abutting most proximally the right main bronchus. A NG tube tip is seen in topography of the gastric fundus. Lungs: Hyperinflated lungs. Bilateral bronchial wall thickening. No consolidation. Pleural space: No pleural effusion. No pneumothorax. Heart: No cardiomegaly. Mediastinum: Significant atherosclerotic tortuosity of the thoracic aorta. Normal mediastinal contour. Bones/joints: Osteopenia. No acute fracture. IMPRESSION: An adequately placed NG tube. Again noted a suboptimally placed endotracheal tube. . Electronically signed by: Kayden Salcedo MD, DABR 09/25/24 00:41 AM Abdomen/Pelvis CTA 09/25/24 03:20 EXAM: CT angio abd pelvis wo/w con CLINICAL HISTORY: Lower gastrointestinal bleed, shock TECHNIQUE: Contrast enhanced thin slice CT angiography scan of the abdominal aorta was performed with intravenous contrast. Angiographic images were processed, 3D MIP images were acquired for interpretation. Contiguous axial images were obtained. Reformatted coronal and sagittal images were also reviewed. If IV contrast material had not been administered, the likelihood of detecting abnormalities relevant to the patients condition would have been substantially decreased. CT scan was performed according to ALARA (as low as reasonable achievable). COMPARISON: CT dated 07/08/2024 21:50:23 LINING BRUSHER. FINDINGS: Rectum is distended with mildly hyperdense material. On arterial phase images, few foci of hyperdensity are seen in the right lower lateral wall of the rectum; not previously seen on plain images. Right kidney shows a simple cortical cyst measuring 31mm in interpolar region. Stent is seen in the right ureter with proximal end in right renal pelvis and distal end in the urinary bladder. Urinary bladder is empty and shows Helms's catheter bulb in situ. Nasogastric tube is seen in situ with its tip in the body of stomach. Atherosclerotic wall thickening and calcification is seen in the aorta and its major branches. Abdominal aorta is normal in course, calibre and opacification. Fusiform dilatation of infra-renal abdominal aorta of diameter 3.2cm, for a length of 3.4cm. Origin of coeliac artery, superior mesenteric artery , bilateral main renal and lumbar arteries are normal with no hemodynamically significant ostial stenosis noted. Bilateral common, external and internal iliac arteries are normal in course, caliber and opacification. Solid abdominal organs including liver, spleen and pancreas reveal no significant abnormality. Bowel loops are otherwise grossly unremarkable. No evidence of ascites. IMPRESSION: 1. Distended rectum with hyperdense material in the lumen and focal arterial phase hyperdensity in right lateral lower rectal wall suggesting active arterial leak. 2. Right renal simple cortical cyst - persistent. 3. Right ureteric stent. Previously identified right hydroureteronephrosis is not seen in this evaluation. 4. Persistent fusiform dilatation of infra-renal abdominal aorta of diameter 3.2cm, for a length of 3.4cm. Electronically signed by Mervin Stewart 09-25-2024 05:35 AM Liver Ultrasound 09/25/24 03:32 EXAM: US liver CLINICAL HISTORY: Shock, liver TECHNIQUE: Ultrasound examination of the RUQ was performed in real-time. COMPARISON: CT study done earlier, 09/25/2024 FINDINGS: Liver: Liver size: 12.9cm. Liver appears normal in size, with coarse echotexture and periportal tract thickening No evidence of focal lesions, cysts, or masses. Hepatic vasculature appears normal. Gallbladder: surgically removed Biliary Tree: Common bile duct diameter: 5mm. The common bile duct is within normal limits in caliber and not dilated. No evidence of choledocholithiasis or biliary obstruction. Right Kidney: Not fully seen due to overlying bowel gas, and the patient is unable to hold breath/decubitus. Increased renal parenchymal echogenicity Two cortical cysts, the largest measures 2.4x2.4x1.7cm, the smaller one measures about 0.9x0.6x0.7 cm Pancreas: head and body appear unremarkable. The tail is not visualized due to bowel gases IMPRESSION: 1. Heterogeneous liver parenchyma with periportal tract thickening could suggest chronic parenchymal liver disease 2. Echogenic grade I renal parenchyma could suggest chronic medical renal disease 3. Two right renal cortical cysts. 4. No interval changes. RECOMMENDATIONS: Clinical correlation with symptoms and further evaluation, including liver function and renal function tests as indicated. Electronically signed by Fred Cerda 09-25-2024 07:51 AM PG Care Time/CCT Total # of Minutes Spent Total Time Spent with Patient: Total time spent is greater than 50% in coordination of care (as documented) at patient's floor/unit and/or counseling patient: I spent 90 minutes overall addressing this case: 25 min in medical data review/discussion with referring provider(s) and/or preparation for the visit d/w staff, chart review, OSH notes 20 min in direct interaction with the patient/exam 00 min in Advance Care Planning/Goals of Care discussions as detailed above in note (must be >16min) 20 min in subsequent review and synthesis of assessment and plan 25 min communicating with other providers regarding the patient's case: CCM, nursing, care mgt [place] [address] IN/OBS CONSULT LVL 5,80M Patient Type New History Comprehensive Exam Comprehensive Medical Decision Making High Complexity Diagnoses Altered mental status R41.82 Dyspnea and respiratory abnormalities R06.00; R06.89 Weakness generalized R53.1 Neglected elder T74.01XA Palliative care by specialist Z51.5 Failure to thrive in adult R62.7 Time Spent (min) 90 Comment [id number]
--- NOTE | 2024-09-27 12:11 | Hospitalist Progress Note ---
Date of Service September 27, 2024 Assessment & Plan (1) Septic shock: (2) Hypovolemic shock: (3) Acute blood loss anemia: (4) Acute and chronic respiratory failure: (5) Urinary tract infection: (6) Shock liver: (7) Acute renal failure: (8) Myocardial infarction due to demand ischemia: (9) PAF (paroxysmal atrial fibrillation): (10) Hypoglycemia associated with diabetes: (11) Atrial fibrillation with RVR: (12) Acute metabolic encephalopathy: Plan Patient 74-year-old female with septic and hypovolemic shock multiorgan failure. Source of infection unclear yet at this time. All cultures are negative. Patient remains critically ill requiring ICU level care IV metoprolol and amiodarone for heart rate and rhythm control Continue broad-spectrum antibiotics, will consult infectious disease Palliative care consultation pending. Previous conversations with patient's d christen of goals of care indicated that she would want full cardiac resuscitation and full ICU level care. BiPAP support as required Replace electrolytes Reviewed GI and cardiology progress notes from today Patient has not received any significant nutrition since admission, had been intubated on the ventilator now with the BiPAP mask preventing NG tube placement for tube feeds. Patient's mental status is such that she cannot take an anything orally on her own. While on BiPAP will need to consider parenteral oral nutrition. Consult pharmacy 52 minutes reviewing record, communication with medical team, interpretation of diagnostics, evaluation patient bedside Admission and Anticipated Discharge Date Admission Date: September 24, 2024 Subjective Patient only opens her eyes. No other meaningful response. Nursing reports dependent on BiPAP overnight, heart rate significantly increases when attempting to titrate off BiPAP Physical Exam Physical Exam: Constitutional: Lethargic, ill in appearance, only opens eyes HEENT: Sclera clear, on BiPAP Lungs: Decreased breath sounds prolonged expiratory phase CV: S1-S2, irregular, intermittent tachycardic Abdomen: Soft, nontender, nondistended Extremities: Some third spacing edema upper extremities Neuro: Only opens eyes when you call her name, no purposeful movement, does not follow commands Psych: Flat Results & Data Results & Data Vital Signs (Past 12 Hours) Vital Signs Temp Pulse Pulse Resp BP Pulse Ox O2 Del Method 09/27/24 11:18 37.2 C 98 H 23 94 09/27/24 11:00 99 H 09/27/24 10:45 37.1 C 98 H 18 94 09/27/24 10:06 37.0 C 113 H 25 H 92 09/27/24 10:00 152/104 H 09/27/24 09:57 36.9 C 102 H 27 H 94 09/27/24 09:30 36.9 C 100 H 20 98 09/27/24 09:19 104 H 156/98 H 09/27/24 09:04 99 H 157/98 H 09/27/24 09:00 36.9 C 107 H 19 92 09/27/24 09:00 149/111 H 09/27/24 08:39 37.1 C 112 H 20 93 09/27/24 08:00 37.1 C 104 H 26 H 93 09/27/24 08:00 156/98 H 09/27/24 08:00 BiPAP 09/27/24 07:36 37.1 C 99 H 18 96 09/27/24 07:30 BiPAP 09/27/24 07:00 37.1 C 116 H 22 146/100 H 91 09/27/24 06:52 120 H 19 92 09/27/24 06:52 120 H 19 92 BiPAP 09/27/24 06:00 139/92 09/27/24 05:36 37.1 C 103 H 19 96 09/27/24 05:06 37.1 C 104 H 19 93 09/27/24 05:00 140/104 H 09/27/24 04:57 37.1 C 108 H 16 92 09/27/24 04:44 105 H 136/80 09/27/24 04:29 114 H 142/87 H 09/27/24 04:00 37.1 C 119 H 26 H 91 09/27/24 04:00 150/118 H 09/27/24 04:00 150/118 H 09/27/24 04:00 136/80 09/27/24 03:03 37.0 C 109 H 18 93 09/27/24 03:00 135/90 09/27/24 02:54 37.0 C 103 H 20 93 09/27/24 02:18 111 H 20 93 09/27/24 02:18 112 H 17 93 BiPAP 09/27/24 02:03 37.2 C 105 H 18 95 09/27/24 02:00 121/90 09/27/24 01:54 37.2 C 97 H 18 96 09/27/24 01:13 103 H 137/83 09/27/24 01:03 37.2 C 109 H 17 95 09/27/24 01:00 127/107 H 09/27/24 00:58 114 H 137/83 09/27/24 00:54 37.3 C 106 H 16 96 09/27/24 00:12 37.3 C 124 H 17 96 FiO2 09/27/24 11:18 09/27/24 11:00 09/27/24 10:45 09/27/24 10:06 09/27/24 10:00 09/27/24 09:57 09/27/24 09:30 09/27/24 09:19 09/27/24 09:04 09/27/24 09:00 09/27/24 09:00 09/27/24 08:39 09/27/24 08:00 09/27/24 08:00 09/27/24 08:00 09/27/24 07:36 09/27/24 07:30 09/27/24 07:00 09/27/24 06:52 21 09/27/24 06:52 21 09/27/24 06:00 09/27/24 05:36 09/27/24 05:06 09/27/24 05:00 09/27/24 04:57 09/27/24 04:44 09/27/24 04:29 09/27/24 04:00 09/27/24 04:00 09/27/24 04:00 09/27/24 04:00 09/27/24 03:03 09/27/24 03:00 09/27/24 02:54 09/27/24 02:18 21 09/27/24 02:18 21 09/27/24 02:03 09/27/24 02:00 09/27/24 01:54 09/27/24 01:13 09/27/24 01:03 09/27/24 01:00 09/27/24 00:58 09/27/24 00:54 09/27/24 00:12 Diagnostic Findings Reviewed imaging, laboratory and diagnostic studies. Pertinent findings as below. WBCs 15.7 Hemoglobin 9.4, stable Phosphorus 1.8 Other electrolytes stable Creatinine 0.79 LFTs reviewed, improving (4) Acute and chronic respiratory failure Respiratory failure complication: hypoxia and hypercapnia Qualified Code(s): J96.21 - Acute and chronic respiratory failure with hypoxia; J96.22 - Acute and chronic respiratory failure with hypercapnia
[2024-09-27 12:23] LABS: iSTAT Art Bld Gas Base Excess 0.0 meg/L (-9-1.8); iSTAT Art Bld Gas pCO2 Correct 32 mmHg (35-46); iSTAT Art Bld Gas pH Corrected 7.468 (7.35-7.45); iSTAT Arterial Blood Gas pO2 C 117
[2024-09-27] MEDS: TPN/PPN CONSULT PHARMACY STA (13:00)
[2024-09-27] MEDS: LABETALOL HCL IV 5 MG/ML 20ML IV PRN (14:22)
[2024-09-27] MEDS ORDERED: AA 8%/D14W 1L 1,000 ML in Central TPN bag 0 ML IV SCH (16:00)
--- NOTE | 2024-09-27 17:53 | Magnetic Resonance Report ---
EXAM: MR brain wo con CLINICAL HISTORY: Eval for structural abnormalities s/o encephalopathy TECHNIQUE: MRI of the brain was performed without contrast with multiplanar sequences obtained. COMPARISON: Reviewing CT head dated 09/24/2024 FINDINGS: Brain Parenchyma: No evidence of acute infarction or hemorrhage. No areas of diffusion restriction Normal jack-white matter differentiation. Bilateral foci and confluent patches in the periventricular white matter, chrona radiata and centrum semioval displaying high signal in T2 and FLAIR consistent with small vessel disease Ventricles and Sulci: The ventricular system, cortical sulci and basal cisterns are prominent, consistent with senile changes. Posterior Fossa: Cerebellum and brainstem appear normal without evidence of mass lesions or signal abnormalities. Vessels: No evidence of vascular malformations or aneurysms. Orbits and Skull Base: Orbits and skull base structures are normal without evidence of abnormalities. Partially empty sella Mild bilateral mastoiditis IMPRESSION: 1. No acute intracranial abnormality identified. 2. Senile brain changes and small vessel disease 3. Partially empty sella 4. Mild bilateral mastoiditis 5. No time interval changes Electronically signed by Fred Cerda 09-27-2024 5:52 PM
[2024-09-27 18:00] LABS: Anion Gap 10.0 (3-11); Blood Urea Nitrogen 23.0 mg/dl (6-23); Calcium 8.2 mg/dl (8.6-10.3); Carbon Dioxide 26.0 mmol/L (21-32); Chloride 105.0 mmol/L (98-107); Creatinine Clr Calc Pharmacy 44.2 ml/min; Glucose 98.0 mg/dl (70-99(Fasting)); Magnesium 2.1 mg/dl (1.7-2.4); Potassium 4.0 mmol/L (3.5-5.1); Sodium 141.0 mmol/L (136-145)
--- NOTE | 2024-09-27 19:41 | Communication Note ---
Date of Service: September 27, 2024 Patient's critical care needs have resolved. ICU level of care no longer needed, transfer is placed by hospitalist. D/w Dr. Lindsay. Coding Level of Care Code None
[2024-09-28] MEDS ORDERED: TPN/PPN CONSULT PHARMACY PRN (00:01)
[2024-09-28 05:29] LABS: Hematocrit (blood only) 34.2 % (37.0-47.0); Hemoglobin 10.9 g/dl (12.0-16.0); Mean Corpuscular Hemoglobin 28.0 pg (25.0-34.0); Mean Corpuscular Volume 87.9 fL (80.0-100.0); Platelet Count 263 K/uL (130-400); RDW Standard Deviation 54.7 fL (36.4-46.3); Red Blood Count 3.89 M/uL (4.20-5.40); White Blood Count 16.83 K/ul (4.8-10.8)
[2024-09-28 05:46] LABS: Triglycerides 80.0 mg/dl (0-150)
--- NOTE | 2024-09-28 06:15 | Electrocardiogram Report ---
Test Reason : Blood Pressure : */* mmHG Vent. Rate : 117 BPM Atrial Rate : 250 BPM P-R Int : * ms QRS Dur : 70 ms QT Int : 280 ms P-R-T Axes : * 66 -79 degrees QTcB Int : 390 ms Atrial flutter with variable A-V block Nonspecific ST and T wave abnormality Abnormal ECG When compared with ECG of 24-Sep-2024 22:58, Atrial flutter has replaced Sinus rhythm Vent. rate has increased by 57 bpm Nonspecific T wave abnormality, worse in Inferior leads Nonspecific T wave abnormality, worse in Anterolateral leads Confirmed by Boston Salinas ([id number]) on 09/28/2024 6:15:13 AM Referred By: REFERRED SELF Confirmed By: Boston Salinas
--- NOTE | 2024-09-28 06:15 | Electrocardiogram Report ---
Test Reason : Blood Pressure : */* mmHG Vent. Rate : 73 BPM Atrial Rate : 73 BPM P-R Int : 176 ms QRS Dur : 70 ms QT Int : 450 ms P-R-T Axes : 79 76 -31 degrees QTcB Int : 496 ms Normal sinus rhythm Septal infarct , age undetermined Prolonged QT Abnormal ECG When compared with ECG of 25-Aug-2024 08:02, Premature atrial complexes are no longer Present Septal infarct is now Present Confirmed by Boston Salinas ([id number]) on 09/28/2024 6:14:41 AM Referred By: REFERRED SELF Confirmed By: Boston Salinas
--- NOTE | 2024-09-28 09:24 | Pulmonology Progress Note ---
Date of Service September 28, 2024 Assessment & Plan (1) Acute and chronic respiratory failure: Respiratory failure complication: hypoxia and hypercapnia Qualified Code(s): J96.21 - Acute and chronic respiratory failure with hypoxia; J96.22 - Acute and chronic respiratory failure with hypercapnia (2) Acidosis: (3) Respiratory failure: Chronicity: acute Respiratory failure complication: hypercapnia Qualified Code(s): J96.02 - Acute respiratory failure with hypercapnia (4) Tobacco use disorder: (5) Failure to thrive in adult: (6) COPD with emphysema: Plan Reason critically ill: Kae Johnston is a 74-year-old female with PMHX of COPD on 3L NC, tobacco use, HTN/HLD, CAD with inferior wall STEMI 2022, Paroxysmal a fib, hypothyroidism who presented to [facility] after being unresponsive with hypoglycemia and hypotension concerning for sepsis. 2D echo 09/25/2024: EF 50-55%, mild concentric LVH, mild MR, RV not well- visualized --Acute hypoxic hypercapnic respiratory failure Multifactorial COPD exacerbation as well as shock Continue with ventilatory support Extubated 09/26/2024 -- COPD On Advair 115 and Spiriva at home --Pulmonary hypertension Likely type III -- Current smoker Reports of quitting explained to the patient Plan: In/out: -823, urine output 2150, + 6.8 L since coming to the hospital BiPAP nightly and as needed shortness of breath. I do think patient would benefit from an AVAPS machine at home given her presentation she was severely hypercapnic with PCO2 of 84 Due to chronic respiratory failure consequent to COPD, patient has CO2 retention with PCO2 of 84 on presentation and now requires a noninvasive ventilation with volume targeted mode at home for optimal management. Bilevel therapy was tried and patient remains hypercapnic due to inability to provide noninvasive ventilation of adequate degree. Continuous alarm systems and back up are required for optimal management due to power outage. This patient is at high risk for respiratory failure without noninvasive ventilation at home. This could prevent repeated hospital admissions and improve the quality of life for the patient. Ventilation is required to decrease work of breathing and improve pulmonary status. Interruption of ventilator support would lead to decline of health status NIMV settings should be AVAPS-AE; Breath rate: auto; Inspiratory time:auto; Sigh: off; Tidal Volume: 350-450, PS min: 4-10 PS max: 12-20; EPAP min: 6-10; EPAP max: 10-16; AVAPS rate: 14 during sleep and as needed Labs are pending, if the creatinine is stable would recommend another 20 mg of Lasix Overall I think goals of care should be discussed with the patient, will get palliative care involved I did discuss overall grave prognosis given the severe COPD and the current mental status of the patient with the patient's daughter. Case discussed with primary team No further recommendation from pulmonary perspective, will sign off Please call directly with any questions Please note the above document was generated using voice recognition software. It may contain grammatical, syntax or spelling errors.Any formal questions or concerns about the content, text or information contained within the body of this dictation should be directly addressed to the provider for clarification. Admission and Anticipated Discharge Date Admission Date: September 24, 2024 Subjective Patient seen and examined at bedside. No acute distress, no adverse events overnight Patient was getting nebulizer treatment at the time of examination Her daughter was also in the room. She opens her eyes and tracks but she does not follow any commands Has been afebrile Review of Systems 2 Review of Systems: All systems reviewed & are unremarkable except as noted in Subjective Physical Exam 2 Physical Exam: Constitutional: No acute distress HEENT: PERRLA, EOMI, arcus senilis bilaterally Respiratory system: Decreased air entry bilaterally, no wheeze, no rhonchi, positive crackles bilateral lower lobes CVS: S1-S2 positive, no murmurs or gallops, irregular Abdomen: Soft, nontender, nondistended, positive bowel sounds x4 Extremities: +2 pulses bilaterally radialis/ dorsalis pedis, no cyanosis, +1 pitting edema bilateral lower extremity as well as upper extremity Neuro: Awake and alert, not answering any questions Psych: Normal mood, flat affect G/U: Positive Helms Skin: no rashes, warm and dry Lymphatic: no cervical or axillary lymphadenopathy Results & Data Results & Data Vital Signs (Past 12 Hours) Vital Signs Temp Pulse Pulse Resp BP BP Pulse Ox 09/28/24 07:58 36.3 C L 102 H 18 155/106 H 100 09/28/24 07:03 85 18 94 09/28/24 06:15 09/28/24 06:01 36.3 C L 84 28 H 151/103 H 94 09/28/24 05:50 84 157/102 H 09/28/24 05:02 111 H 151/115 H 09/28/24 01:03 88 20 94 09/28/24 00:26 91 H 127/97 09/28/24 00:11 118 H 161/115 H 09/28/24 00:03 36.7 C 113 H 18 95 09/28/24 00:00 161/115 H 09/27/24 23:42 36.6 C 92 H 21 96 09/27/24 23:06 36.5 C 65 21 93 09/27/24 23:00 173/98 H 09/27/24 23:00 09/27/24 22:30 168/97 H 09/27/24 22:30 168/97 H 09/27/24 22:30 168/97 H 09/27/24 22:30 63 23 91 09/27/24 22:27 36.5 C 66 24 98 09/27/24 22:03 36.5 C 66 27 H 98 09/27/24 22:00 163/95 H 09/27/24 22:00 163/95 H 09/27/24 22:00 163/95 H 09/27/24 22:00 163/95 H 09/27/24 22:00 163/95 H 09/27/24 21:57 36.5 C 65 25 H 99 09/27/24 21:45 36.5 C 64 31 H 99 09/27/24 21:30 149/94 H 09/27/24 21:27 36.6 C 62 23 96 Pulse Ox O2 Del Method O2 Del Method O2 Flow Rate FiO2 09/28/24 07:58 Nasal Cannula 7 09/28/24 07:03 Room Air 09/28/24 06:15 Room Air 09/28/24 06:01 Room Air 09/28/24 05:50 09/28/24 05:02 09/28/24 01:03 BiPAP 21 09/28/24 00:26 09/28/24 00:11 09/28/24 00:03 09/28/24 00:00 09/27/24 23:42 09/27/24 23:06 09/27/24 23:00 09/27/24 23:00 95 BiPAP 09/27/24 22:30 09/27/24 22:30 09/27/24 22:30 09/27/24 22:30 21 09/27/24 22:27 09/27/24 22:03 09/27/24 22:00 09/27/24 22:00 09/27/24 22:00 09/27/24 22:00 09/27/24 22:00 09/27/24 21:57 09/27/24 21:45 09/27/24 21:30 09/27/24 21:27 Laboratory Results 09/28/24 04:59 PG Care Time/CCT Total # of Minutes Spent Total Time Spent with Patient: Total time spent is greater than 50% in coordination of care (as documented) at patient's floor/unit and/or counseling patient: Coding Level of Care Code 14000 SUB INP/OBS CARE 2/35MIN Diagnoses Acute on chronic respiratory failure with hypoxia and hypercapnia J96.21; J96.22 Respiratory failure complication: hypoxia and hypercapnia Acidosis E87.20 Respiratory failure J96.02 Chronicity: acute Respiratory failure complication: hypercapnia Tobacco use disorder F17.200 Failure to thrive in adult R62.7 COPD with emphysema J43.9
[2024-09-28 09:29] LABS: Anion Gap 12.0 (3-11); Bilirubin,Total 0.9 mg/dl (0.2-1.0); Calcium 8.3 mg/dl (8.6-10.3); Carbon Dioxide 22.0 mmol/L (21-32); Chloride 106.0 mmol/L (98-107); Magnesium 2.1 mg/dl (1.7-2.4); Potassium 4.0 mmol/L (3.5-5.1); Sodium 140.0 mmol/L (136-145)
[2024-09-28 09:35] LABS: Creatinine Clr Calc Pharmacy 48.9 ml/min; Glucose 101.0 mg/dl (70-99(Fasting))
[2024-09-28 10:07] LABS: Alanine Aminotransferase 1124.0 U/L (7-52); Alkaline Phosphatase 135.0 U/L (34-104)
--- NOTE | 2024-09-28 10:17 | Cardiology Progress Note ---
Date of Service September 28, 2024 Assessment & Plan (1) CAD (coronary artery disease), [place] coronary artery: (2) Abnormal EKG: (3) Sepsis: (4) PAF (paroxysmal atrial fibrillation): (5) Anticoagulant long-term use: (6) Rectal bleeding: Plan -discontinue IV amiodarone. -Increase IV metoprolol to 7.5 mg IV every 4 hrs for rate control while unable to take oral medication. -Continue cefepime. -Hold plavix, eliquis, and IV heparin -SCDs for DVT prophylaxis. -MRI brain on 09/27 without any acute abnormality. There is ongoing concern about her mentation. Prognosis poor. Agree with ongoing goals of care discussion. Palliative medicine is on the case. Case discussed with Dr Ponce of the hospitalist service for the purpose of coordination of care. Pepe Lennon DO Department of Cardiology Admission and Anticipated Discharge Date Admission Date: September 24, 2024 Subjective Patient seen in cardiology follow up. She was transferred out of the ICU to PCU and is now on oxygen rather than BiPap with night oxygen requirement of 7 l/min. She opens her eyes and look at me , but dose not follow commands, including grasp my fingers or wiggle her toes on command. Telemetry reveals ongoing atrial fibrillation. Ventricular rates improved to 89- 107 bpm. Physical Exam Physical Exam: Temp Pulse Resp BP Pulse Ox O2 Del Method O2 Flow Rate 37.1 C 90-111 bpm, AF 19 139/92 92 BiPAP 3 09/27/24 05:36 09/27/24 06:52 09/27/24 06:52 09/27/24 06:00 09/27/24 06:52 09/27/24 06:52 09/25/24 09:20 FiO2 21 09/27/24 06:52 General: on flow oxygen, ill in appearance HEENT: Normocephalic. Atraumatic. EOMI. Conjunctiva and sclera clear. NECK: Trachea midline. No thyromegaly. No carotid bruits. No JVD. Carotid upstrokes are brisk. Heart: tachycardia , irregular rhythm, no murmur S1 and S2 noted. Lungs: Diminished breath sounds throughout. Abdomen: Normal bowel sounds. Soft. Nontender. No abdominal bruits. Extremities: Normal capillary refill. No edema. No clubbing or cyanosis. Skin: Warm and dry. Neuro: opens eyes, not following motor commands Results & Data Diagnostic Findings Cardiac Enzymes 09/28/24 Range/Units 04:59 AST 568 H (13-39) U/L Lipids 09/28/24 Range/Units 04:59 Triglycerides 80 (0-150) mg/dl CBC 09/28/24 Range/Units 04:59 WBC 16.83 H (4.8-10.8) K/ul RBC 3.89 L (4.20-5.40) M/uL Hgb 10.9 L (12.0-16.0) g/dl Hct 34.2 L (37.0-47.0) % Plt Count 263 (130-400) K/uL Comprehensive Metabolic Panel 09/27/24 09/28/24 Range/Units 17:01 04:59 Sodium 141 140 (136-145) mmol/L Potassium 4.0 4.0 (3.5-5.1) mmol/L Chloride 105 106 (98-107) mmol/L Carbon Dioxide 26 22 (21-32) mmol/L BUN 23 (6-23) mg/dl Creatinine 0.83 0.75 (0.6-1.2) mg/dl Glucose 98 101 H (70-99(Fasting)) mg/dl Calcium 8.2 L 8.3 L (8.6-10.3) mg/dl Direct Bilirubin 0.0 (0-0.2) mg/dl AST 568 H (13-39) U/L ALT 1124 H (7-52) U/L Alkaline Phosphatase 135 H (34-104) U/L Albumin 3.0 L (3.4-5.0) gm/dl Intake and Output 09/27/24 09/28/24 09/28/24 22:59 06:59 14:59 Intake Total 0 / 1326.555 163.66 / 1326.555 Output Total 350 / 2200 350 / 2200 Balance -350 / -873.445 -186.34 / -873.445 Intake: IV 163.66 / 1326.555 Amiodarone / D5w 360 mg In 200 163.66 / 361.555 ml @ 0.5 MG/MIN 16.667 mls/hr IV .Q12H [facility] Rx#:[id number] Oral 0 / 0 Output: Urine Amount (Catheter) 350 / 2200 350 / 2200 Temp Sensing Helms 350 / 2200 350 / 2200 Other: Weight 52.2 kg Weight Measurement Method Built in [facility] (3) Sepsis Acute respiratory failure type: with hypoxia Sepsis acute organ dysfunction status: with acute organ dysfunction Sepsis type: sepsis due to unspecified organism Severe sepsis acute organ dysfunction type: acute respiratory failure Severe sepsis shock status: without septic shock Qualified Code(s): A41.9 - Sepsis, unspecified organism; R65.20 - Severe sepsis without septic shock; J96.01 - Acute respiratory failure with hypoxia
[2024-09-28 10:53] LABS: Blood Urea Nitrogen 23.0 mg/dl (6-23); Total Protein 5.3 gm/dl (6.0-8.3)
--- NOTE | 2024-09-28 11:26 | Communication Note ---
Date of Service: September 28, 2024 Palliative Medicine Brief Note Attempted to call patient's daughterCindy. #[phone]. left message on voicemail requesting callback. Thank you for allowing us to participate in the ongoing care of this patient. Please page with any additional concerns. Ray Sales DNP Director, Palliative Medicine
--- NOTE | 2024-09-28 11:31 | Palliative Care Progress Note ---
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 Urine WBC (Auto) (0-5) /hpf Urine RBC (Auto) (0-2) /hpf U Hyaline Cast (Auto) (0-2) /lpf U Epithel Cells (Auto) (0-2) /hpf Urine Bacteria (Auto) (None Seen) Hyaline Casts (None Presnt) /lpf Urine Yeast (None Prsent) Urine Comment Nasal Screen MRSA (PCR) (Negative) Hepatitis A IgM Ab Hep Bs Antigen (Negative) Hep B Core IgM Ab Hepatitis C Antibody (Negative) Blood Type Antibody Screen Crossmatch 09/25/24 09/25/24 09/25/24 Range/Units 10:31 06:43 06:11 WBC (4.8-10.8) K/ul RBC (4.20-5.40) M/uL Hgb 8.3 L (12.0-16.0) g/dl POC Hgb (12.0-16.0) g/dl Hct 26.8 L (37.0-47.0) % POC Hct (37-47) % MCV (80.0-100.0) fL MCH (25.0-34.0) pg MCHC (32.0-36.0) g/dL RDW Std Deviation (36.4-46.3) fL RDW Coeff of Chet (11.5-14.5) % Plt Count (130-400) K/uL MPV (9.4-12.4) fL Immature Gran % (Auto) % Neut % (Auto) % Lymph % (Auto) % [place] % (Auto) % Eos % (Auto) % Baso % (Auto) % Neut # (Auto) (1.40-6.50) K/uL Lymph # (Auto) (1.20-3.40) K/uL [place] # (Auto) (0.11-0.59) K/uL Eos # (Auto) (0.00-0.50) K/uL Baso # (Auto) (0.00-0.20) K/uL Immature Gran # (Auto) (0.01-0.20) K/uL Absolute Nucleated RBC (0.00-0.12) K/uL Nucleated RBC % (auto) % Polychromasia PT (9.0-12.0) Seconds INR (0.9-1.1) APTT (21-31) Seconds PTT Ratio Fibrinogen (184-400) mg/dl Heparin Anti-Xa, Unfract (0.3-0.7) IU/ml Specimen Type Sample Site POC pH (7.35-7.45) POC pCO2 (35-46) mmHg POC pO2 (80-95) mmHg POC HCO3 (19-24) norma/L POC Total CO2 (24-31) mmol/L POC Base Excess (-9-1.8) norma/L O2 Sat Pulse Oximetry ABG pH (Temp Correct) (7.35-7.45) ABG pCO2 (Temp Corrct (35-46) mmHg POC ABG pO2 at Pt Temp POC ABG O2 Sat (90-95) % Donnie Test O2 Delivery Device Vent Mode POC FiO2 % End Tidal CO2 POC Sodium (135-144) mmol/L Sodium (136-145) mmol/L POC Potassium (3.3-5.0) mmol/L Potassium (3.5-5.1) mmol/L POC Chloride (101-112) mmol/L Chloride (98-107) mmol/L Carbon Dioxide (21-32) mmol/L Anion Gap (3-11) POC Anion Gap (16-25) mmol/L POC BUN (7-18) mg/dl BUN (6-23) mg/dl Creatinine (0.6-1.2) mg/dl POC Creatinine (0.6-1.3) mg/dl Est Cr Clr Drug Dosing ml/min eGFR BUN/Creatinine Ratio (10-20) Glucose (70-99(Fasting)) mg/dl POC Glucose (70-99) mg/dl POC Glucose (other) 150 H (70-99) mg/dl Lactate 8.3 H* (0.4-2.0) mmol/L Calcium (8.6-10.3) mg/dl POC Ioniz Calcium Tabitha (1.12-1.32) mmol/l Phosphorus (2.5-4.9) mg/dl Magnesium (1.7-2.4) mg/dl Total Bilirubin (0.2-1.0) mg/dl Direct Bilirubin (0-0.2) mg/dl AST (13-39) U/L ALT (7-52) U/L Alkaline Phosphatase (34-104) U/L Troponin I High Sens (0-14) pg/ml Total Protein (6.0-8.3) gm/dl Albumin (3.4-5.0) gm/dl Triglycerides (0-150) mg/dl Procalcitonin (0-0.5) ng/ml TSH (0.300-4.500) uIu/ml Random Cortisol mcg/dl Urine Color Urine Appearance (Clear) Urine pH (4.5-7.5) Ur Specific [place] (1.000-1.030) Urine Protein (Negative) Urine Glucose (UA) (Negative) Urine Ketones (Negative) Urine Blood (Negative) Urine Nitrite (Negative) Urine Bilirubin (Negative) Urine Urobilinogen (Negative) Ur Leukocyte Esterase (Negative) Urine WBC (Auto) (0-5) /hpf Urine RBC (Auto) (0-2) /hpf U Hyaline Cast (Auto) (0-2) /lpf U Epithel Cells (Auto) (0-2) /hpf Urine Bacteria (Auto) (None Seen) Hyaline Casts (None Presnt) /lpf Urine Yeast (None Prsent) Urine Comment Nasal Screen MRSA (PCR) (Negative) Hepatitis A IgM Ab Hep Bs Antigen (Negative) Hep B Core IgM Ab Hepatitis C Antibody (Negative) Blood Type Antibody Screen Crossmatch 09/25/24 09/25/24 09/25/24 Range/Units 03:40 03:04 02:16 WBC (4.8-10.8) K/ul RBC (4.20-5.40) M/uL Hgb (12.0-16.0) g/dl POC Hgb 6.8 L* (12.0-16.0) g/dl Hct (37.0-47.0) % POC Hct 20 L* (37-47) % MCV (80.0-100.0) fL MCH (25.0-34.0) pg MCHC (32.0-36.0) g/dL RDW Std Deviation (36.4-46.3) fL RDW Coeff of Chet (11.5-14.5) % Plt Count (130-400) K/uL MPV (9.4-12.4) fL Immature Gran % (Auto) % Neut % (Auto) % Lymph % (Auto) % [place] % (Auto) % Eos % (Auto) % Baso % (Auto) % Neut # (Auto) (1.40-6.50) K/uL Lymph # (Auto) (1.20-3.40) K/uL [place] # (Auto) (0.11-0.59) K/uL Eos # (Auto) (0.00-0.50) K/uL Baso # (Auto) (0.00-0.20) K/uL Immature Gran # (Auto) (0.01-0.20) K/uL Absolute Nucleated RBC (0.00-0.12) K/uL Nucleated RBC % (auto) % Polychromasia PT 21.4 H (9.0-12.0) Seconds INR 2.1 H (0.9-1.1) APTT 34 H (21-31) Seconds PTT Ratio 1.3 Fibrinogen 393 (184-400) mg/dl Heparin Anti-Xa, Unfract > 1.50 H* (0.3-0.7) IU/ml Specimen Type Arterial Sample Site Art Line POC pH 7.31 L (7.35-7.45) POC pCO2 41 (35-46) mmHg POC pO2 84 (80-95) mmHg POC HCO3 21 (19-24) norma/L POC Total CO2 22 L (24-31) mmol/L POC Base Excess -6.0 (-9-1.8) norma/L O2 Sat Pulse Oximetry 97 ABG pH (Temp Correct) 7.314 L (7.35-7.45) ABG pCO2 (Temp Corrct 40 (35-46) mmHg POC ABG pO2 at Pt Temp 80 POC ABG O2 Sat 95.0 (90-95) % Donnie Test NA O2 Delivery Device Ventilator Vent Mode AC POC FiO2 30 % End Tidal CO2 26 POC Sodium 141 (135-144) mmol/L Sodium (136-145) mmol/L POC Potassium 4.7 (3.3-5.0) mmol/L Potassium (3.5-5.1) mmol/L POC Chloride (101-112) mmol/L Chloride (98-107) mmol/L Carbon Dioxide (21-32) mmol/L Anion Gap (3-11) POC Anion Gap (16-25) mmol/L POC BUN (7-18) mg/dl BUN (6-23) mg/dl Creatinine (0.6-1.2) mg/dl POC Creatinine (0.6-1.3) mg/dl Est Cr Clr Drug Dosing ml/min eGFR BUN/Creatinine Ratio (10-20) Glucose (70-99(Fasting)) mg/dl POC Glucose (70-99) mg/dl POC Glucose (other) (70-99) mg/dl Lactate 8.1 H* (0.4-2.0) mmol/L Calcium (8.6-10.3) mg/dl POC Ioniz Calcium Tabitha (1.12-1.32) mmol/l Phosphorus (2.5-4.9) mg/dl Magnesium (1.7-2.4) mg/dl Total Bilirubin (0.2-1.0) mg/dl Direct Bilirubin (0-0.2) mg/dl AST (13-39) U/L ALT (7-52) U/L Alkaline Phosphatase (34-104) U/L Troponin I High Sens (0-14) pg/ml Total Protein (6.0-8.3) gm/dl Albumin (3.4-5.0) gm/dl Triglycerides (0-150) mg/dl Procalcitonin (0-0.5) ng/ml TSH (0.300-4.500) uIu/ml Random Cortisol mcg/dl Urine Color Urine Appearance (Clear) Urine pH (4.5-7.5) Ur Specific [place] (1.000-1.030) Urine Protein (Negative) Urine Glucose (UA) (Negative) Urine Ketones (Negative) Urine Blood (Negative) Urine Nitrite (Negative) Urine Bilirubin (Negative) Urine Urobilinogen (Negative) Ur Leukocyte Esterase (Negative) Urine WBC (Auto) (0-5) /hpf Urine RBC (Auto) (0-2) /hpf U Hyaline Cast (Auto) (0-2) /lpf U Epithel Cells (Auto) (0-2) /hpf Urine Bacteria (Auto) (None Seen) Hyaline Casts (None Presnt) /lpf Urine Yeast (None Prsent) Urine Comment Nasal Screen MRSA (PCR) (Negative) Hepatitis A IgM Ab Hep Bs Antigen (Negative) Hep B Core IgM Ab Hepatitis C Antibody (Negative) Blood Type O Positive Antibody Screen NEGATIVE Crossmatch See Detail 09/25/24 09/25/24 09/24/24 Range/Units 02:13 00:31 22:46 WBC 22.07 H (4.8-10.8) K/ul RBC 2.40 L (4.20-5.40) M/uL Hgb 6.5 L* (12.0-16.0) g/dl POC Hgb (12.0-16.0) g/dl Hct 22.3 L (37.0-47.0) % POC Hct (37-47) % MCV 92.9 (80.0-100.0) fL MCH 27.1 (25.0-34.0) pg MCHC 29.1 L (32.0-36.0) g/dL RDW Std Deviation 60.8 H (36.4-46.3) fL RDW Coeff of Chet 17.6 H (11.5-14.5) % Plt Count 435 H (130-400) K/uL MPV 9.1 L (9.4-12.4) fL Immature Gran % (Auto) 3.5 % Neut % (Auto) 82.3 % Lymph % (Auto) 9.6 % [place] % (Auto) 4.5 % Eos % (Auto) 0.0 % Baso % (Auto) 0.1 % Neut # (Auto) 18.14 H (1.40-6.50) K/uL Lymph # (Auto) 2.12 (1.20-3.40) K/uL [place] # (Auto) 1.00 H (0.11-0.59) K/uL Eos # (Auto) 0.01 (0.00-0.50) K/uL Baso # (Auto) 0.03 (0.00-0.20) K/uL Immature Gran # (Auto) 0.77 H (0.01-0.20) K/uL Absolute Nucleated RBC (0.00-0.12) K/uL Nucleated RBC % (auto) % Polychromasia 1+ PT (9.0-12.0) Seconds INR (0.9-1.1) APTT (21-31) Seconds PTT Ratio Fibrinogen (184-400) mg/dl Heparin Anti-Xa, Unfract (0.3-0.7) IU/ml Specimen Type Sample Site POC pH (7.35-7.45) POC pCO2 (35-46) mmHg POC pO2 (80-95) mmHg POC HCO3 (19-24) norma/L POC Total CO2 (24-31) mmol/L POC Base Excess (-9-1.8) norma/L O2 Sat Pulse Oximetry ABG pH (Temp Correct) (7.35-7.45) ABG pCO2 (Temp Corrct (35-46) mmHg POC ABG pO2 at Pt Temp POC ABG O2 Sat (90-95) % Donnie Test O2 Delivery Device Vent Mode POC FiO2 % End Tidal CO2 POC Sodium (135-144) mmol/L Sodium 142 141 (136-145) mmol/L POC Potassium (3.3-5.0) mmol/L Potassium 5.0 5.4 H (3.5-5.1) mmol/L POC Chloride (101-112) mmol/L Chloride 106 105 (98-107) mmol/L Carbon Dioxide 23 22 (21-32) mmol/L Anion Gap 13 H 14 H (3-11) POC Anion Gap (16-25) mmol/L POC BUN (7-18) mg/dl BUN 36 H 35 H (6-23) mg/dl Creatinine 1.04 1.13 (0.6-1.2) mg/dl POC Creatinine (0.6-1.3) mg/dl Est Cr Clr Drug Dosing 34.7 31.9 ml/min eGFR 56.05 50.74 BUN/Creatinine Ratio 34.6 H 31.0 H (10-20) Glucose 201 H 183 H (70-99(Fasting)) mg/dl POC Glucose 250 H (70-99) mg/dl POC Glucose (other) (70-99) mg/dl Lactate 6.3 H* (0.4-2.0) mmol/L Calcium 7.4 L 7.6 L (8.6-10.3) mg/dl POC Ioniz Calcium Tabitha (1.12-1.32) mmol/l Phosphorus 4.5 (2.5-4.9) mg/dl Magnesium 2.1 (1.7-2.4) mg/dl Total Bilirubin 0.5 (0.2-1.0) mg/dl Direct Bilirubin 0.2 (0-0.2) mg/dl AST 2562 H (13-39) U/L ALT 1391 H (7-52) U/L Alkaline Phosphatase 103 (34-104) U/L Troponin I High Sens 963.3 H* D 792.0 H* D (0-14) pg/ml Total Protein 4.7 L D (6.0-8.3) gm/dl Albumin 2.4 L (3.4-5.0) gm/dl Triglycerides (0-150) mg/dl Procalcitonin (0-0.5) ng/ml TSH (0.300-4.500) uIu/ml Random Cortisol mcg/dl Urine Color Urine Appearance (Clear) Urine pH (4.5-7.5) Ur Specific [place] (1.000-1.030) Urine Protein (Negative) Urine Glucose (UA) (Negative) Urine Ketones (Negative) Urine Blood (Negative) Urine Nitrite (Negative) Urine Bilirubin (Negative) Urine Urobilinogen (Negative) Ur Leukocyte Esterase (Negative) Urine WBC (Auto) (0-5) /hpf Urine RBC (Auto) (0-2) /hpf U Hyaline Cast (Auto) (0-2) /lpf U Epithel Cells (Auto) (0-2) /hpf Urine Bacteria (Auto) (None Seen) Hyaline Casts (None Presnt) /lpf Urine Yeast (None Prsent) Urine Comment Nasal Screen MRSA (PCR) (Negative) Hepatitis A IgM Ab Hep Bs Antigen (Negative) Hep B Core IgM Ab Hepatitis C Antibody (Negative) Blood Type Antibody Screen Crossmatch 09/24/24 09/24/24 09/24/24 Range/Units 21:49 20:27 20:23 WBC (4.8-10.8) K/ul RBC (4.20-5.40) M/uL Hgb (12.0-16.0) g/dl POC Hgb 7.1 L 9.5 L (12.0-16.0) g/dl Hct (37.0-47.0) % POC Hct 21 L 28 L (37-47) % MCV (80.0-100.0) fL MCH (25.0-34.0) pg MCHC (32.0-36.0) g/dL RDW Std Deviation (36.4-46.3) fL RDW Coeff of Chet (11.5-14.5) % Plt Count (130-400) K/uL MPV (9.4-12.4) fL Immature Gran % (Auto) % Neut % (Auto) % Lymph % (Auto) % [place] % (Auto) % Eos % (Auto) % Baso % (Auto) % Neut # (Auto) (1.40-6.50) K/uL Lymph # (Auto) (1.20-3.40) K/uL [place] # (Auto) (0.11-0.59) K/uL Eos # (Auto) (0.00-0.50) K/uL Baso # (Auto) (0.00-0.20) K/uL Immature Gran # (Auto) (0.01-0.20) K/uL Absolute Nucleated RBC (0.00-0.12) K/uL Nucleated RBC % (auto) % Polychromasia PT (9.0-12.0) Seconds INR (0.9-1.1) APTT (21-31) Seconds PTT Ratio Fibrinogen (184-400) mg/dl Heparin Anti-Xa, Unfract (0.3-0.7) IU/ml Specimen Type Sample Site POC pH 7.32 L (7.35-7.45) POC pCO2 42 (35-46) mmHg POC pO2 565 H (80-95) mmHg POC HCO3 21 (19-24) norma/L POC Total CO2 23 L 28 (24-31) mmol/L POC Base Excess -5.0 (-9-1.8) norma/L O2 Sat Pulse Oximetry ABG pH (Temp Correct) (7.35-7.45) ABG pCO2 (Temp Corrct (35-46) mmHg POC ABG pO2 at Pt Temp POC ABG O2 Sat 100.0 H (90-95) % Donnie Test O2 Delivery Device Vent Mode POC FiO2 % End Tidal CO2 POC Sodium 140 138 (135-144) mmol/L Sodium (136-145) mmol/L POC Potassium 5.0 5.8 H (3.3-5.0) mmol/L Potassium (3.5-5.1) mmol/L POC Chloride 100 L (101-112) mmol/L Chloride (98-107) mmol/L Carbon Dioxide (21-32) mmol/L Anion Gap (3-11) POC Anion Gap 17.0 (16-25) mmol/L POC BUN 31 H (7-18) mg/dl BUN (6-23) mg/dl Creatinine (0.6-1.2) mg/dl POC Creatinine 1.4 H (0.6-1.3) mg/dl Est Cr Clr Drug Dosing ml/min eGFR BUN/Creatinine Ratio (10-20) Glucose (70-99(Fasting)) mg/dl POC Glucose (70-99) mg/dl POC Glucose (other) 177 H (70-99) mg/dl Lactate (0.4-2.0) mmol/L Calcium (8.6-10.3) mg/dl POC Ioniz Calcium Tabitha 1.01 L (1.12-1.32) mmol/l Phosphorus (2.5-4.9) mg/dl Magnesium (1.7-2.4) mg/dl Total Bilirubin (0.2-1.0) mg/dl Direct Bilirubin (0-0.2) mg/dl AST (13-39) U/L ALT (7-52) U/L Alkaline Phosphatase (34-104) U/L Troponin I High Sens (0-14) pg/ml Total Protein (6.0-8.3) gm/dl Albumin (3.4-5.0) gm/dl Triglycerides (0-150) mg/dl Procalcitonin (0-0.5) ng/ml TSH (0.300-4.500) uIu/ml Random Cortisol mcg/dl Urine Color [place] Urine Appearance Turbid A (Clear) Urine pH 5.0 (4.5-7.5) Ur Specific [place] 1.014 (1.000-1.030) Urine Protein 2+ H (Negative) Urine Glucose (UA) Negative (Negative) Urine Ketones Negative (Negative) Urine Blood 3+ H (Negative) Urine Nitrite Negative (Negative) Urine Bilirubin 1+ H (Negative) Urine Urobilinogen Negative (Negative) Ur Leukocyte Esterase 3+ H (Negative) Urine WBC (Auto) >50 H (0-5) /hpf Urine RBC (Auto) >20 H (0-2) /hpf U Hyaline Cast (Auto) >20 H (0-2) /lpf U Epithel Cells (Auto) 3-5 H (0-2) /hpf Urine Bacteria (Auto) 2+ H (None Seen) Hyaline Casts Present A (None Presnt) /lpf Urine Yeast Present A (None Prsent) Urine Comment Nasal Screen MRSA (PCR) (Negative) Hepatitis A IgM Ab Hep Bs Antigen (Negative) Hep B Core IgM Ab Hepatitis C Antibody (Negative) Blood Type Antibody Screen Crossmatch 09/24/24 09/24/24 09/24/24 Range/Units 20:17 19:58 19:14 WBC 20.14 H (4.8-10.8) K/ul RBC 3.03 L (4.20-5.40) M/uL Hgb 8.4 L (12.0-16.0) g/dl POC Hgb 9.9 L (12.0-16.0) g/dl Hct 29.2 L (37.0-47.0) % POC Hct 29 L (37-47) % MCV 96.4 (80.0-100.0) fL MCH 27.7 (25.0-34.0) pg MCHC 28.8 L (32.0-36.0) g/dL RDW Std Deviation 62.7 H (36.4-46.3) fL RDW Coeff of Chet 17.6 H (11.5-14.5) % Plt Count 529 H (130-400) K/uL MPV 9.0 L (9.4-12.4) fL Immature Gran % (Auto) 2.4 % Neut % (Auto) 87.2 % Lymph % (Auto) 4.7 % [place] % (Auto) 5.5 % Eos % (Auto) 0.1 % Baso % (Auto) 0.1 % Neut # (Auto) 17.55 H (1.40-6.50) K/uL Lymph # (Auto) 0.94 L (1.20-3.40) K/uL [place] # (Auto) 1.11 H (0.11-0.59) K/uL Eos # (Auto) 0.03 (0.00-0.50) K/uL Baso # (Auto) 0.03 (0.00-0.20) K/uL Immature Gran # (Auto) 0.48 H (0.01-0.20) K/uL Absolute Nucleated RBC 0.02 (0.00-0.12) K/uL Nucleated RBC % (auto) 0.1 % Polychromasia PT 20.8 H (9.0-12.0) Seconds INR 2.0 H (0.9-1.1) APTT 37 H (21-31) Seconds PTT Ratio 1.4 Fibrinogen (184-400) mg/dl Heparin Anti-Xa, Unfract (0.3-0.7) IU/ml Specimen Type Sample Site POC pH 7.17 L* (7.35-7.45) POC pCO2 84 H (35-46) mmHg POC pO2 295 H (80-95) mmHg POC HCO3 31 H (19-24) norma/L POC Total CO2 34 H (24-31) mmol/L POC Base Excess 3.0 H (-9-1.8) norma/L O2 Sat Pulse Oximetry ABG pH (Temp Correct) (7.35-7.45) ABG pCO2 (Temp Corrct (35-46) mmHg POC ABG pO2 at Pt Temp POC ABG O2 Sat 100.0 H (90-95) % Donnie Test O2 Delivery Device Vent Mode POC FiO2 % End Tidal CO2 POC Sodium 136 (135-144) mmol/L Sodium 141 (136-145) mmol/L POC Potassium 5.8 H (3.3-5.0) mmol/L Potassium 5.9 H (3.5-5.1) mmol/L POC Chloride (101-112) mmol/L Chloride 99 (98-107) mmol/L Carbon Dioxide 29 (21-32) mmol/L Anion Gap 13 H (3-11) POC Anion Gap (16-25) mmol/L POC BUN (7-18) mg/dl BUN 33 H (6-23) mg/dl Creatinine 1.35 H (0.6-1.2) mg/dl POC Creatinine (0.6-1.3) mg/dl Est Cr Clr Drug Dosing 26.7 ml/min eGFR 40.98 BUN/Creatinine Ratio 24.4 H (10-20) Glucose 186 H (70-99(Fasting)) mg/dl POC Glucose 196 H (70-99) mg/dl POC Glucose (other) (70-99) mg/dl Lactate 6.6 H* (0.4-2.0) mmol/L Calcium 8.4 L (8.6-10.3) mg/dl POC Ioniz Calcium Tabitha (1.12-1.32) mmol/l Phosphorus (2.5-4.9) mg/dl Magnesium 2.4 (1.7-2.4) mg/dl Total Bilirubin 0.8 (0.2-1.0) mg/dl Direct Bilirubin 0.4 H (0-0.2) mg/dl AST 1122 H (13-39) U/L ALT 692 H (7-52) U/L Alkaline Phosphatase 132 H (34-104) U/L Troponin I High Sens 415.2 H* (0-14) pg/ml Total Protein 6.1 (6.0-8.3) gm/dl Albumin 3.1 L (3.4-5.0) gm/dl Triglycerides (0-150) mg/dl Procalcitonin 4.50 H (0-0.5) ng/ml TSH (0.300-4.500) uIu/ml Random Cortisol mcg/dl Urine Color Urine Appearance (Clear) Urine pH (4.5-7.5) Ur Specific [place] (1.000-1.030) Urine Protein (Negative) Urine Glucose (UA) (Negative) Urine Ketones (Negative) Urine Blood (Negative) Urine Nitrite (Negative) Urine Bilirubin (Negative) Urine Urobilinogen (Negative) Ur Leukocyte Esterase (Negative) Urine WBC (Auto) (0-5) /hpf Urine RBC (Auto) (0-2) /hpf U Hyaline Cast (Auto) (0-2) /lpf U Epithel Cells (Auto) (0-2) /hpf Urine Bacteria (Auto) (None Seen) Hyaline Casts (None Presnt) /lpf Urine Yeast (None Prsent) Urine Comment Nasal Screen MRSA (PCR) (Negative) Hepatitis A IgM Ab Hep Bs Antigen (Negative) Hep B Core IgM Ab Hepatitis C Antibody (Negative) Blood Type Antibody Screen Crossmatch PG Care Time/CCT Total # of Minutes Spent Total Time Spent with Patient: Total time spent is greater than 50% in coordination of care (as documented) at patient's floor/unit and/or counseling patient: I spent 50 minutes overall addressing this case: 10 min in medical data review/discussion with referring provider(s) and/or preparation for the visit 15 min in direct interaction with the patient/exam 00 min in Advance Care Planning/Goals of Care discussions as detailed above in note (must be >16min) 10 min in subsequent review and synthesis of assessment and plan 15 min communicating with other providers regarding the patient's case: Primary team,nursing [place] [address] SUB INP/OBS CARE 3/50MIN Patient Type Established History Comprehensive Exam Comprehensive Medical Decision Making High Complexity Diagnoses Failure to thrive in adult R62.7 Weakness generalized R53.1 Dyspnea and respiratory abnormalities R06.00; R06.89 Neglected elder T74.01XA Palliative care by specialist Z51.5 Time Spent (min) 50 Comment [id number]
[2024-09-28] MEDS: METOPROLOL TARTRATE 1 MG/ML VIAL IV SCH (12:56)
--- NOTE | 2024-09-28 13:45 | Pharmacy Report ---
Pharmacy Initial PN Consult Nt - Date of Service September 28, 2024 - Scope Pharmacy has been consulted on this date to manage parenteral nutrition orders and order appropriate labs. As part of the Nutrition Support Team Guidelines, pharmacy will work in conjunction with dietary when determining the patients c aloric needs. - Subjective * The patient is a 74 year old Female admitted on 09/24/24 for STEMI, SEPTIC SHOCK, HYPOGLYCEMIA. * Patient is to receive parenteral nutrition for prolonged NPO, no enteral access due to GI bleed/BIPAP. * Pertinent PMHx: diabetes - Objective Vascular Access: * Patient currently has a central line-femoral. Height & Weight (Last Documented) Height 5 ft 1 in Weight 52.2 kg Diet Order(s) 09/24/24 23:06 NPO Intake & Ouput (24hrs) 09/27/24 09/28/24 09/29/24 06:59 06:59 06:59 Intake Total 2906.990 / 2906.990 1326.555 / 1326.555 0 / 0 Output Total 1150 / 1150 2200 / 2200 0 / 0 Balance 1756.990 / 1756.990 -873.445 / -873.445 0 / 0 Selected Laboratory Results 09/27/24 09/28/24 17:01 04:59 Sodium 141 140 Potassium 4.0 4.0 Chloride 105 106 Carbon Dioxide 26 22 Anion Gap 10 12 H BUN 23 23 Creatinine 0.83 0.75 BUN/Creatinine Ratio 27.7 H 30.7 H Glucose 98 101 H Calcium 8.2 L 8.3 L Phosphorus 3.3 D 2.9 Magnesium 2.1 2.1 Total Bilirubin 0.9 AST 568 H ALT 1124 H Alkaline Phosphatase [address] - Follow Up Nutrition Assessment Start: 09/27/24 10:18 Freq: Status: Active Protocol: Document 09/28/24 10:13 WN (Rec: 09/28/24 10:22 WN [id number]) RD - Initial Nutrition Assessment Start: 09/27/24 09:59 Freq: Status: Active Protocol: Document 09/27/24 09:59 WN (Rec: 09/27/24 10:18 WN [id number]) - Assessment & Plan Assessment: * Appreciate dietitians recommendations for macronutrients. Discussed starting at a reduced goal today and monitoring due to prolonged NPO status. Will start at 50% amino acids and dextrose with goal lipids today. Plan to advance as long as labs remain stable tomorrow. * Noted patient is diabetic, no insulin added to TPN, currently has SQ correctional ordered, will reassess need tomorrow * LFTs trending down, continue to monitor for increases with TPN initiation * Corrected calcium with albumin normal * Limited ability to add electrolytes to TPN today due to small volume * preparation is near 1/2NS * added as much phosphate as possible due to need to replete yesterday (limited due to Ca/Phos) * Remaining electrolytes at standard starting recommendations. Plan: * For Day #1 of TPN administration, the following will be ordered: * Macronutrients: * Amino Acids: 40 grams/day * Dextrose: 70 grams/day * Lipids: 50 grams/day * Micronutrients: * TPN electrolytes: 20 mL/day - Contains 35 mEq Na, 20 mEq K, 4.5 mEq Ca, 5 mEq Mg, 35 mEq Cl, 29.5 mEq Acetate per 20 mL * Sodium chloride: 50 mEq/day * Potassium phosphate: 15 mMol/day * Multivitamins: 10 mL/day * Trace elements: 1 mL/day * Thiamine: 100 mg/day * Total volume of 557 mL (plus 250mL lipids) will be infused over 24 hours and will provide 898 kcal/day * Labs will be ordered per PN protocol. * Pharmacy will follow and adjust PN orders on a daily basis. Thank you!
--- NOTE | 2024-09-28 14:56 | Infectious Disease Consult ---
Date of Service September 28, 2024 Telehealth Information I performed this visit using a real-time telehealth connection between my location and the patients location ([facility]). After connecting through interactive tele-video, patient was identified by name and date of and/or wristband check.Patient (or authorized healthcare customer care representative) was informed that this was a telemedicine visit and it was being conducted confidentially over secure lines. My office door was closed and no one else was present in the room with me.Patient (or authorized healthcare customer care representative) provided consent to proceed with the visit, expressed an understanding of privacy and security of the telemedicine visit, and gave permission to have a hospital customer care representative in the room in order to assist with the visit and to conduct portions of the visit, as needed. I informed the patient (or authorized healthcare customer care representative) that I reviewed their record and presented the opportunity for them to ask any questions regarding the visit today. The patient agreed to participate. Assessment & Plan (1) Altered mental status: (2) Acute metabolic encephalopathy: (3) Elevated LFTs: (4) COPD with emphysema: Plan 74-year-old female with a complex medical history, including chronic respiratory failure, COPD, coronary artery disease, and recent hospitalization for sepsis, UTI, rapid AFib, and COPD exacerbation. She presents with altered mental status, hypoglycemia, hypotension, and evidence of an ST elevation myocardial infarction (STEMI) that resolved. She is currently experiencing septic and hypovolemic shock with multiorgan failure, with an unclear source of infection. Urine cultures are positive for Lena albicans, blood culture negative till date and she is being treated with cefepime. 1. Agree continuing cefepime at current dosage for now, monitor patient clinical course and culture results which so far are negative till date. will follow her clinical course, final antibiotic recommendations and duration remains pending . I have seen the patient today via televideo alongside Dr. De La Cruz and agree with the plans and findings as outlined in this note. It is not clear to me if this patient had any infectious syndrome. Though she had hypotension and ischemic injuries, we have no clear infectious source to explain it. No fevers either. Her improvement has been slow and today she could not interact with us at all. History was obtained from her records and from nursing at the bedside. Since she is improving, will continue the empiric cefepime for now, but would hope to stop in the next 1-2 days. Willy Recio MD History of Present Illness History of Present Illness 74-year-old female past medical history of chronic respiratory failure with hypoxia on 3 L of, COPD, nonspecific lung disease, hypertension, hyperlipidemia, history of coronary artery disease status post RCA stent, osteoarthritis, osteoporosis. She was brought in because of altered mental state, recently hospitalized from 08/22 to 09/01/2024 for sepsis and UTI and also rapid AFib and COPD exacerbation and hypokalemia. She was found to have stricture at right uterovesical junction, underwent cystoscopy on 08/28 with bilateral retrograde pyelogram and right ureteroscopy with ureteral dilatation and stent placement, culture grew Citrobacter and Pseudomonas initially treated with vancomycin and Zosyn and was transition to p.o. ciprofloxacin on discharge. This time, when her daughter was trying to, she was not waking up and was drooling and daughter also noticed some blood in [place], EMS was called and her blood sugar was 14 she was given D 25, swelling blood pressure were in 70s. 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 Repeat EKG revealed resolution of ST elevation. Patient received cefepime and vancomycin in the ED. currently there is a concern for septic and hypovolemic shock with multiorgan failure, source of infection unclear so far, all cultures are negative except for urine which is growing Lena albicans, patient has been transferred out of ICU to PCU now on oxygen. Currently patient is on cefepime. Allergies Allergy/AdvReac Type Severity Reaction Status Date / Time bee venom protein (honey bee) Allergy Severe SWELLING Verified 01/30/24 16:12 SEVERE doxycycline Allergy Intermediate Vomiting Verified 01/30/24 16:12 Home Medications Medication Instructions Recorded Confirmed Type albuterol sulfate 90 mcg/actuation 2 puff inhalation Q4H PRN 09/24/24 09/24/24 History aerosol inhaler Shortness Of Breath Or Wheezing alendronate 70 mg tablet 70 mg PO WK 09/24/24 09/24/24 History apixaban 5 mg tablet (Eliquis) 5 mg PO BID 09/24/24 09/24/24 History atorvastatin 40 mg tablet 40 mg PO DAILY 09/24/24 09/24/24 History cholecalciferol (vitamin D3) 50 50 mcg PO DAILY 09/24/24 09/24/24 History mcg (2,000 unit) capsule (Vitamin D3) citalopram 40 mg tablet 40 mg PO DAILY 09/24/24 09/24/24 History clopidogrel 75 mg tablet (Plavix) 75 mg PO DAILY 09/24/24 09/24/24 History docosahexaenoic acid (dha)-epa 120 1 cap PO DAILY 09/24/24 09/24/24 History mg-180 mg capsule (Fish Oil) fluticasone propionate 115 2 puff inhalation BID 09/24/24 09/24/24 History mcg-salmeterol 21 mcg/actuation HFA inhaler furosemide 40 mg tablet 20 mg PO DAILY 09/24/24 09/24/24 History gabapentin 300 mg capsule 300 mg PO BID 09/24/24 09/24/24 History ipratropium 0.5 mg-albuterol 3 mg 3 ml inhalation QID PRN Shortness 09/24/24 09/24/24 History (2.5 mg base)/3 mL nebulization Of Breath Or Wheezing soln levothyroxine 25 mcg tablet 25 mcg PO DAILY 09/24/24 09/24/24 History losartan 25 mg tablet 25 mg PO DAILY 09/24/24 09/24/24 History magnesium oxide 400 mg PO BID 09/24/24 09/24/24 History metoprolol succinate 50 mg 50 mg PO BID 09/24/24 09/24/24 History tablet,extended release 24 hr multivitamin 1 tab PO DAILY 09/24/24 09/24/24 History nitroglycerin 0.4 mg sublingual 0.4 mg sublingual UD 09/24/24 09/24/24 History tablet oxybutynin chloride 5 mg 5 mg PO DAILY 09/24/24 09/24/24 History tablet,extended release 24 hr oxycodone 5 mg tablet 5 mg PO Q4H PRN Pain 09/24/24 09/24/24 History pantoprazole 40 mg tablet,delayed 40 mg PO DAILY 09/24/24 09/24/24 History release (Protonix) potassium chloride 10 mEq 10 meq PO BID 09/24/24 09/24/24 History tablet,extended release (Klor-Con) tiotropium bromide 18 mcg capsule 1 cap inhalation DAILY 09/24/24 09/24/24 History with inhalation device Patient History Medical History Depression GERD (gastroesophageal reflux disease) COPD with exacerbation Dyslipidemia, goal LDL below 70 Chronic hypoxic respiratory failure 3L NC chronic CAD (coronary artery disease) 2022 - STEMI w/ RCA interventions Anemia COPD (chronic obstructive pulmonary disease) PAF (paroxysmal atrial fibrillation) HTN (hypertension) Myocardial infarction due to demand ischemia Non-ST elevation SC (NSTEMI) Macular degeneration Tobacco use disorder Atrial fibrillation Diabetes Surgical History S/P ORIF (open reduction internal fixation) fracture H/O skin graft History of tonsillectomy H/O heart surgery History of cholecystectomy Hx of tubal ligation Social History Smoking Status: Current every day smoker Tobacco Type: Cigarettes Cigarettes Per Day: 5; Second Hand Exposure: No; Do You Dip or Chew Tobacco: No; Hx Alcohol Use: No Hx Substance Use: No Preferred Language: [place] Communication Ability: Impaired Tax Examining Technician Required: No Beliefs That Will Affect Care: None Current Living Situation: Family Current Living Situation Comment: with daughter Feels Safe at Home: Yes Assistive Devices: Walker and Wheelchair Review of Systems Negative except mentioned in HPI Physical Exam could not be done as this was a tele visit Results & Data Vital Signs (Past 12 Hours) Vital Signs Temp Pulse Pulse Resp BP BP Pulse Ox 09/28/24 13:36 95 H 169/124 H 09/28/24 13:34 73 169/124 H 99 09/28/24 13:16 09/28/24 12:56 83 156/115 H 09/28/24 11:49 36.4 C L 83 18 156/115 H 100 09/28/24 10:34 102 H 155/106 H 09/28/24 08:00 99 H 09/28/24 07:58 36.3 C L 102 H 18 155/106 H 100 09/28/24 07:03 85 18 94 09/28/24 06:15 09/28/24 06:01 36.3 C L 84 28 H 151/103 H 94 09/28/24 05:50 84 157/102 H 09/28/24 05:02 111 H 151/115 H O2 Del Method O2 Flow Rate 09/28/24 13:36 09/28/24 13:34 Room Air 09/28/24 13:16 Room Air 09/28/24 12:56 09/28/24 11:49 Oxymask 09/28/24 10:34 09/28/24 08:00 09/28/24 07:58 Nasal Cannula 7 09/28/24 07:03 Room Air 09/28/24 06:15 Room Air 09/28/24 06:01 Room Air 09/28/24 05:50 09/28/24 05:02 Laboratory Results Laboratory Results - last 24 hr 09/27/24 09/28/24 09/28/24 17:01 00:07 04:59 WBC 16.83 H RBC 3.89 L Hgb 10.9 L Hct 34.2 L MCV 87.9 MCH 28.0 MCHC 31.9 L RDW Std Deviation 54.7 H RDW Coeff of Chet 17.3 H Plt Count 263 MPV 9.3 L Absolute Nucleated RBC 0.13 H Nucleated RBC % (auto) 0.8 Sodium 141 140 Potassium 4.0 4.0 Chloride 105 106 Carbon Dioxide 26 22 Anion Gap 10 12 H BUN 23 23 Creatinine 0.83 0.75 Est Cr Clr Drug Dosing 44.2 48.9 eGFR 73.47 82.97 BUN/Creatinine Ratio 27.7 H 30.7 H Glucose 98 101 H POC Glucose 109 H Calcium 8.2 L 8.3 L Phosphorus 3.3 D 2.9 Magnesium 2.1 2.1 Total Bilirubin 0.9 Direct Bilirubin 0.0 AST 568 H ALT 1124 H Alkaline Phosphatase 135 H Total Protein 5.3 L Albumin 3.0 L Triglycerides 80 09/28/24 09/28/24 06:12 11:53 WBC RBC Hgb Hct MCV MCH MCHC RDW Std Deviation RDW Coeff of Chet Plt Count MPV Absolute Nucleated RBC Nucleated RBC % (auto) Sodium Potassium Chloride Carbon Dioxide Anion Gap BUN Creatinine Est Cr Clr Drug Dosing eGFR BUN/Creatinine Ratio Glucose POC Glucose 104 H 93 Calcium Phosphorus Magnesium Total Bilirubin Direct Bilirubin AST ALT Alkaline Phosphatase Total Protein Albumin Triglycerides Diagnostic Findings Brain MRI 09/27/24 10:46 EXAM: MR brain wo con CLINICAL HISTORY: Eval for structural abnormalities s/o encephalopathy TECHNIQUE: MRI of the brain was performed without contrast with multiplanar sequences obtained. COMPARISON: Reviewing CT head dated 09/24/2024 FINDINGS: Brain Parenchyma: No evidence of acute infarction or hemorrhage. No areas of diffusion restriction Normal jack-white matter differentiation. Bilateral foci and confluent patches in the periventricular white matter, chrona radiata and centrum semioval displaying high signal in T2 and FLAIR consistent with small vessel disease Ventricles and Sulci: The ventricular system, cortical sulci and basal cisterns are prominent, consistent with senile changes. Posterior Fossa: Cerebellum and brainstem appear normal without evidence of mass lesions or signal abnormalities. Vessels: No evidence of vascular malformations or aneurysms. Orbits and Skull Base: Orbits and skull base structures are normal without evidence of abnormalities. Partially empty sella Mild bilateral mastoiditis IMPRESSION: 1. No acute intracranial abnormality identified. 2. Senile brain changes and small vessel disease 3. Partially empty sella 4. Mild bilateral mastoiditis 5. No time interval changes Electronically signed by Fred Cerda 09-27-2024 5:52 PM
--- NOTE | 2024-09-28 15:27 | Hospitalist Progress Note ---
Date of Service September 28, 2024 Assessment & Plan (1) Septic shock: (2) Hypovolemic shock: (3) Acute metabolic encephalopathy: (4) Atrial fibrillation with RVR: (5) Acute blood loss anemia: (6) Hypoglycemia associated with diabetes: (7) Acute and chronic respiratory failure: (8) Urinary tract infection: (9) Shock liver: (10) Acute renal failure: (11) Myocardial infarction due to demand ischemia: (12) PAF (paroxysmal atrial fibrillation): Plan Patient 74-year-old female with multiple comorbidities presented in septic and hypovolemic shock along with acute on chronic respiratory failure requiring mechanical ventilation and pressor therapy. Patient now extubated and off pressors. Remains in atrial fibrillation with rapid ventricular response, being managed with amiodarone and metoprolol. Patient's mental status remains significantly altered, severe metabolic encephalopathy due to her overwhelming medical condition. Patient still critically ill, requires hospital level care, specialty evaluation and management. Reviewed cardiology recommendations, transitioning to IV metoprolol for management of atrial fibrillation Continue to hold anticoagulation in the setting of acute blood loss anemia and hypovolemic shock Reviewed infectious disease recommendation, continuing cefepime Communication with pulmonary team, recommending patient continue on BiPAP/AVAPS overnight to manage her chronic respiratory failure and COPD, oxygen during the day as able Patient's mental status is such that she really cannot take medications orally or nutrition orally, parenteral nutrition started today, continue to evaluate and order per pharmacy protocol Communication via [place] text with palliative care, reviewed recommendations. They are attempting to contact daughter Extensive phone conversation with daughter Cindy. She was in to see the patient earlier. She is quite overwhelmed with the patient's critical condition. She recognizes that patient is severely ill. Had extensive review of her medical condition and her very poor prognosis based on her multiple comorbidities and how she presented. Cindy is aware that patient is not able to eat or drink due to her mental status. I also made Cindy aware that her medical team would support a decision to transition to comfort care/hospice care. Medical team feels that the probability of her having any meaningful recovery and a meaningful quality life is very low. Cindy is really overwhelmed's with any type of decision making at this time. She is very hesitant to change anything as far as her goals of care and advanced directives and CODE STATUS. I encouraged Cindy to really sit and think about what her mother would choose if she could choose her own medical care and knew that this was her condition. I also encouraged Cindy to continue to talk with her extended family, patient's siblings to help her through any decision making process. She states that her uncle did have hospice involved when caring for his mother. I encouraged her to discuss with him his hospice experience. At this time patient remain full code. 56 minutes spent on review of records, communication with medical team, communication with family, review of the record, interpretation of data, documentation Admission and Anticipated Discharge Date Admission Date: September 24, 2024 Subjective No acute issues overnight, transferred out of the ICU. Off BiPAP during the day. Physical Exam Physical Exam: Constitutional: Minimally responsive HEENT: Mucous membranes moist. Rebreather mask in place Lungs: Decreased breath sounds CV: S1-S2, irregular, tachycardic Abdomen: Soft, nontender, nondistended Extremities: Third spacing edema Neuro: Opens eyes and turns head to voice, no other purposeful movement, does not follow any other commands Psych: Lethargic Results & Data Results & Data Vital Signs (Past 12 Hours) Vital Signs Temp Pulse Pulse Resp BP BP Pulse Ox 09/28/24 13:36 95 H 169/124 H 09/28/24 13:34 73 169/124 H 99 09/28/24 13:16 09/28/24 12:56 83 156/115 H 09/28/24 11:49 36.4 C L 83 18 156/115 H 100 09/28/24 10:34 102 H 155/106 H 09/28/24 08:00 99 H 09/28/24 07:58 36.3 C L 102 H 18 155/106 H 100 09/28/24 07:03 85 18 94 09/28/24 06:15 09/28/24 06:01 36.3 C L 84 28 H 151/103 H 94 09/28/24 05:50 84 157/102 H 09/28/24 05:02 111 H 151/115 H O2 Del Method O2 Flow Rate 09/28/24 13:36 09/28/24 13:34 Room Air 09/28/24 13:16 Room Air 09/28/24 12:56 09/28/24 11:49 Oxymask 09/28/24 10:34 09/28/24 08:00 09/28/24 07:58 Nasal Cannula 7 06/18/25 07:03 Room Air 09/28/24 06:15 Room Air 09/28/24 06:01 Room Air 09/28/24 05:50 09/28/24 05:02 Diagnostic Findings Reviewed imaging, laboratory and diagnostic studies. Pertinent findings as below. WBCs 16.8, trending upward Hemoglobin 10.9 Electrolytes stable Creatinine 0.75 LFTs reviewed, slightly improved Albumin 3.0 MRI of the brain no acute changes or findings (7) Acute and chronic respiratory failure Respiratory failure complication: hypoxia and hypercapnia Qualified Code(s): J96.21 - Acute and chronic respiratory failure with hypoxia; J96.22 - Acute and chronic respiratory failure with hypercapnia
[2024-09-28] MEDS: [UNRECOGNIZED DRUG - OTHER] IV SCH (15:41)
[2024-09-28] MEDS: CLINOLIPID 20% IV FAT EMULSION 250 ML IV SCH (15:41)
[2024-09-28] MEDS: CENTRAL TPN IV SCH (15:41)
--- NOTE | 2024-09-28 15:54 | Palliative Family Discussion ---
Date of Service September 28, 2024 Patient Directed Conference Time of Meetin345 Participants: Micki Sales DNP Patient participation: no, lacks capacity, +AMS Patient Support System:daughter Liz Other Healthcare Provider Participation: None Meeting Location:telephonic] Advanced Directive available: no The patient's surrogate medical decision maker participated: per [place] Act 169, dtr is SDM A telephonic ACP meeting was held for KAE TORREZ. This meeting was necessary for determining the appropriate course of treatment. Topics of Discussion Topics of Discussion: 1. I spoke with Liz and went over the info/options/de-escalation vs limited trials vs hospice. I told her that is Kae does not show significant improvement in next 24-48 hr in spite of all the high level care she is receiving, then this is a sign things are not getting better. We spoke about Kae's level of care being higher than what can be safely done at home and would likely be needing SNF. She asked about hospice at home but erroneously believed that meant nurses were there "03/11 all the time" and I clarified hospice services. I went over her Mom's chronic illnesses/their progression and asked her to think about where Mom would want to be at the end of her life i.e., on a vent /not able to interact or perhaps in a SNF with comfort care, able to interact with family for as long as she is able. I told Liz we are in a different place where 'most likely' outcomes may not be in line with what pt would want for herself and that this needs to be contemplated bc all the things liz wants us to do to her mom (vent, CPR, etc) are going to be things that happen to Mom/that Mom endures or suffers from, and that might not be the kind of care Mom needs/wants at this end stage. I advised Liz that Catrachita PARSON from my team will meet with her tomorrow around 10am when she gets here to follow up and I can meet with her Thursday if she has more concerns. I am in clinic tomorrow. Liz was encouraged to write down any questions/concerns she may have in anticipation for meeting tomorrow. Other Content of Meetin. Opportunity given for participants to speak and ask questions. 2. Participants were assured of attention to patient comfort. 3. Reassurance provided. 4. Support was provided for informed, good-germania decisions. 5. Emotions expressed by family were acknowledged and addressed. Thank you for allowing us to participate in the ongoing care of this patient. Please page with any additional concerns. Ray Sales DNP Director, Palliative Medicine
[2024-09-28 15:58] LABS: Hepatitis A Antibody IgM NON-REACTIVE (NON-REACTIVE); Hepatitis B Core Antibody IgM NON-REACTIVE (NON-REACTIVE)
[2024-09-28] MEDS ORDERED: DEXTROSE 10% 1,000 ML IV PRN (16:00)
[2024-09-28] MEDS: METOPROLOL TARTRATE 1 MG/ML VIAL IV STA (17:29)
[2024-09-28] MEDS: ACETAMINOPHEN 1,000 MG/100 ML VIAL IV STA (21:38)
[2024-09-28] MEDS: STOP CLINOLIPID SCH (21:53)
[2024-09-29 06:32] LABS: Anion Gap 5.0 (3-11); Blood Urea Nitrogen 27.0 mg/dl (6-23); Calcium 8.0 mg/dl (8.6-10.3); Carbon Dioxide 30.0 mmol/L (21-32); Chloride 109.0 mmol/L (98-107); Creatinine Clr Calc Pharmacy 50.9 ml/min; Glucose 136.0 mg/dl (70-99(Fasting)); Magnesium 2.1 mg/dl (1.7-2.4); Potassium 3.4 mmol/L (3.5-5.1); Sodium 144.0 mmol/L (136-145)
[2024-09-29] MEDS: ALBUT/IPRATROP 3MG/0.5MG NEB 3 ML VIAL NEB SCH (07:17)
[2024-09-29] MEDS ORDERED: ALBUT/IPRATROP 3MG/0.5MG NEB 3 ML VIAL NEB PRN (08:31)
[2024-09-29] MEDS: POTASSIUM CHLORIDE / WTR 10 MEQ/100 ML PLCT IV SCH (09:18)
--- NOTE | 2024-09-29 09:37 | Pharmacy Report ---
Pharmacy PN Follow-up Note - Date of Service September 29, 2024 - Subjective Patient is currently on day #2 of TPN for prolonged NPO. - Objective Height & Weight (Last Documented) Height 5 ft 1 in Weight 56.4 kg Diet Order(s) 09/24/24 23:06 NPO Intake & Ouput (24hrs) 09/28/24 09/29/24 09/30/24 06:59 06:59 06:59 Intake Total 1326.555 / 1326.555 550 / 550 Output Total 2200 / 2200 700 / 700 Balance -873.445 / -873.445 -150 / -150 Selected Laboratory Results 09/28/24 09/29/24 04:59 06:02 Sodium 144 Potassium 3.4 L Chloride 109 H Carbon Dioxide 30 Anion Gap 5 BUN 23 27 H Creatinine 0.75 0.72 BUN/Creatinine Ratio 30.7 H 37.5 H Glucose 101 H 136 H Calcium 8.0 L Phosphorus 2.9 2.6 Magnesium 2.1 AST 568 H ALT 1124 H Alkaline Phosphatase 135 H - Assessment & Plan Assessment: * For Day 2 of TPN, will advance to goal macronutrients. * Noted low potassium, replaced outside of PN by hospitalist * Adding additional potassium/phosphate since volume now allows for it. Plan: * For Day #2 of TPN administration, the following will be ordered: * Macronutrients: * Amino Acids: 80 grams/day * Dextrose: 140 grams/day * Lipids: 50 grams/day * Micronutrients: * TPN electrolytes: 40 mL/day Contains 35 mEq Na, 20 mEq K, 4.5 mEq Ca, 5 mEq Mg, 35 mEq Cl, 29.5 mEq Acetate per 20 mL * Sodium chloride: 50 mEq/day * Potassium phosphate: 30 mMol/day * Potassium acetate: 20 mEq/day * Multivitamins: 10 mL/day * Trace elements: 1 mL/day * Thiamine: 100 mg/day * Total volume of 1092 mL (+ 250mL lipids) will be infused over 24 hours and will provide 1296 kcal/day * Labs will be ordered per PN protocol. * Pharmacy will follow and adjust PN orders on a daily basis. Thank you!
[2024-09-29] MEDS: ACETAMINOPHEN 1,000 MG/100 ML VIAL IV STA (11:23)
[2024-09-29] MEDS ORDERED: ATROPINE SULFATE 1% OP SOLN 5 ML BTL SL PRN (11:50)
[2024-09-29] MEDS ORDERED: ONDANSETRON 4 MG OD TAB SL PRN (11:50)
[2024-09-29] MEDS ORDERED: ONDANSETRON INJ 2 MG/ML 2 ML VIAL IV PRN (11:50)
[2024-09-29] MEDS ORDERED: GLYCOPYRROLATE 0.2 MG/ML VIAL IV PRN (11:50)
[2024-09-29] MEDS ORDERED: MoRPHine SULFATE 10 MG/0.5 ML UDP PO PRN (11:50)
[2024-09-29] MEDS ORDERED: POLYETHYLENE (MIRALAX) 17 GM PACK PO PRN (11:58)
[2024-09-29] MEDS ORDERED: BUDESONIDE 0.5 MG/2 ML VIAL (PULMICORT) NEB PRN (11:58)
--- NOTE | 2024-09-29 12:18 | Palliative Family Discussion ---
Date of Service September 29, 2024 Patient Directed Conference Time of Meetin:00 - 11:30 Participants: Catrachita Patel AGACNP Patient participation: no Patient Support System: daughter Other Healthcare Provider Participation: None Meeting Location: bedside Advanced Directive available: no If yes, descriptors: The patient's surrogate medical decision maker participated: Cindy Garcia, pt's adult daughter Legally authorized health care proxy: Per PA [id number], in absence of written documentation of patient wishes, pt's proxy for medical decisions would be her only adult offspring, Cindy Garcia ([phone]). Pt does currently require a proxy for medical decisions. Other surrogate: n/a A family meeting was held for JJ TORREZ. This meeting was necessary for determining the appropriate course of treatment. Topics of Discussion Topics of Discussion: 1. pt values 2. goals of care 3. comfort directed care 4. hospice Other Content of Meetin. Opportunity given for participants to speak and ask questions. 2. Participants were assured of attention to patient comfort. 3. Reassurance provided. 4. Support was provided for informed, good-germania decisions. 5. Emotions expressed by family were acknowledged and addressed. 6. Follow-up Outpatient: n/a 7. Plan of Care: transition to comfort directed care, pt will likely require placement for ongoing hospice care. Pt assessed at bedside, she did not respond to verbal cues not make any attempt to communicate with me. Pt's daughter Cindy was present at bedside. Helped Cindy understand that Patient exhibits current lack of decisional capacity and does require a proxy for medical decisions. Hospital does not have written documentation of patient wishes concerning her chosen proxy for medical decisions. Cindy shared that the pt is not and she is the pt's only living child. Per PA [id number], in absence of written documentation of patient wishes, pt's proxy for medical decisions would be Cindy. Cindy agrees to serve as proxy. Cindy shared that she has met with "too many doctors to remember" and that she has been told that "it is time to just let her go". We discussed the pt's current weakened state and that she is unlikely to improve even with aggressive care. Cindy shared that she is glad she took pt to visit her brother and s ister in law a few weeks ago. She shared that she and the pt are "all each other have". Cindy has a 34y son with "mental challenges" but he does not get along with the pt. Cindy shared that pt's only other living family (her brother) does not travel due to his own health issues. She tearfully stated that has a hard time seeing her mother like this and worries that she would be unable to provide the care required at home even with hospice. She asked if hospice could care for pt at [facility], this request was shared with DANIEL Shukla. Reinforced previous discussion of hospice care and hospice benefit: an interdisciplinary program offered by nurses, nurses aides, social workers, chaplains and a medical certification specialist for patients with a terminal condition and a life expectancy of less than 6 months. This is covered by Medicare at 100%/no out of pocket expense to patient and all meds/supplies needed by patient for the reason they are on hospice are paid for/covered by hospice. The goal is assure quality of life of the patient in their home setting (home, usp, inpatient hospice setting) by providing symptoms management, psychosocial and spiritual support. However, they cannot offer 24 hours care and if the family is unable to provide that care, they will have to consider personal care with out of pocket cost vs. usp placement. We discussed the goals of hospice as a patient service and the goals of care; we discussed EOL trajectories and transitions saundra the emotional impact of realizing mortality as a concrete reality from prior abstract considerations. Pt was reassured that no matter where they are along this trajectory, they are not alone - their medical team will remain by their side through their journey. Discussed the pros/cons of accepting help when especially weakened and distressed by pain-which would also help provide relief/decrease caregiver burden/strain. Discussed changes pt may move through in the dying process including but not limited to sleeping more, disorientation when awake, restlessness, diminished senses/inability to respond to stimulus although ability to be aware of them remains intact longer, and changes in body temperatures, skin changes/mottling/cyanosis, respiratory pattern changes, and oral secretions. Family verbalized understanding. The goal is to assure a peaceful . Cindy expressed concern that pt is suffering and requests transition to comfort directed care at this time. Basic comfort care orders entered and request made to DANIEL to begin process of SNF placement for ongoing hospice care. Time Involved in Meeting: I spent 50 minutes overall addressing this case: 10 in medical data review/discussion with referring provider(s) and/or preparation for the visit 30 in direct interaction with the patient and her daughter 30 Advance Care Planning/Goals of Care discussions as detailed above in note (must be >16min) 5 in subsequent review and synthesis of assessment and plan 5 in communicating with other providers regarding the patient's case: attending, DANIEL and BSRN
--- NOTE | 2024-09-29 13:37 | Hospitalist Progress Note ---
Date of Service September 29, 2024 Assessment & Plan (1) Septic shock: (2) Hypovolemic shock: (3) Acute metabolic encephalopathy: (4) Atrial fibrillation with RVR: (5) Acute blood loss anemia: (6) Hypoglycemia associated with diabetes: (7) Acute and chronic respiratory failure: (8) Urinary tract infection: (9) Shock liver: (10) Acute renal failure: (11) Myocardial infarction due to demand ischemia: (12) PAF (paroxysmal atrial fibrillation): Plan Ms. Jonhston is 74 year old female with PMH COPD on chronic 3 L of oxygen, HTN, CAD (STEMI in 2022 s/p RCA intervention), paroxysmal atrial fibrillation, hypothyroidism admitted due to shock, likely multifactorial iso sepsis & hemorrhage, requiring pressors and also in acute on chronic resp failure requiring intubation and mechanical ventilation. Patient underwent emergency flex sig on 09/25 given report of active rectal bleeding' however, flex sig did not localize source EKG on admission revealed STEMI. 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 Patient with ongoing monthly admissions since 11/2023. Palliative consulted this admission with long GoC concerning patient's poor prognosis and marginal recovery. Ultimately on 09/29, patient was transitioned to RECONDITIONING ASSOCIATE. #RECONDITIONING ASSOCIATE palliative following and case management #Acute metabolic encephalopathy #Septic & Hemorrhagic shock #acute on chronic resp failure s/p mechanical ventilation, chronic 3L of oxygen admitted to ICU 09/25, downgraded 09/28 patient was continued on cefepime since admission Patient transitioned to RECONDITIONING ASSOCIATE #STEMI, likely demand iso sepsis/hemorrhagic shock EKG changes resolved s/p tx of above #A Fib RVR s/p amiodarone dip 09/25 AC discontinued #acute on chronic anemia s/p 2 UPRBC on 09/25 for hgb 6.8 appeared to have been hemorrhoidal #transaminitis downtrended #GUTIERREZ improved no intervention, renal fx at baseline continue cefepime #COPD #Chronic hypoxic respiratory failure: continue o2 for comfort #Hypokalemia: K+ 2.9, Mg +1.7 Replaced as able stop labs 2/2 RECONDITIONING ASSOCIATE #HTN (hypertension): RECONDITIONING ASSOCIATE #Chronic CAD s/p RCA stent in 02/2023. RECONDITIONING ASSOCIATE DVT RECONDITIONING ASSOCIATE Dispo: possible dispo to snf with hospice given concerns/limitation for care at home Admission and Anticipated Discharge Date Admission Date: September 24, 2024 Subjective Patient awake, does not make intelligible vocalizations or respond to commands, groans to any repositioning Transitioned to RECONDITIONING ASSOCIATE Physical Exam Constitutional: awake, not oriented; ill appearing and weak Respiratory: diminshed 2/2 effort Cardiovascular: RRR, no murmur, no edema Neurologic: awake, seems to be alert to verbal and painful stimuli but does not follow commands Results & Data Results & Data Vital Signs (Past 12 Hours) Vital Signs Temp Pulse Pulse Pulse Resp BP BP 09/29/24 11:19 36.4 C L 75 17 09/29/24 10:49 09/29/24 09:44 76 157/102 H 09/29/24 09:29 77 158/115 H 09/29/24 08:00 72 09/29/24 07:24 36.3 C L 83 19 139/74 09/29/24 07:17 76 18 09/29/24 06:23 09/29/24 05:10 70 158/100 H 09/29/24 04:17 77 136/88 09/29/24 03:31 36.3 C L 77 16 BP Pulse Ox O2 Del Method 09/29/24 11:19 162/107 H 99 Room Air 09/29/24 10:49 171/121 H 09/29/24 09:44 09/29/24 09:29 09/29/24 08:00 09/29/24 07:24 100 Room Air 09/29/24 07:17 92 Room Air 09/29/24 06:23 91 Room Air 09/29/24 05:10 09/29/24 04:17 09/29/24 03:31 136/88 100 Oxymask Laboratory Results [facility] 09/29/24 06:02 Sodium 144 Potassium 3.4 L Chloride 109 H Carbon Dioxide 30 BUN 27 H Creatinine 0.72 Glucose 136 H Calcium 8.0 L Medications Administered Home Medications Medication Instructions Recorded Confirmed Last Taken albuterol sulfate 90 mcg/actuation 2 puff inhalation Q4H PRN 09/24/24 09/24/24 Unknown aerosol inhaler Shortness Of Breath Or Wheezing alendronate 70 mg tablet 70 mg PO WK 09/24/24 09/24/24 Unknown apixaban 5 mg tablet (Eliquis) 5 mg PO BID 09/24/24 09/24/24 Unknown atorvastatin 40 mg tablet 40 mg PO DAILY 09/24/24 09/24/24 Unknown cholecalciferol (vitamin D3) 50 50 mcg PO DAILY 09/24/24 09/24/24 Unknown mcg (2,000 unit) capsule (Vitamin D3) citalopram 40 mg tablet 40 mg PO DAILY 09/24/24 09/24/24 Unknown clopidogrel 75 mg tablet (Plavix) 75 mg PO DAILY 09/24/24 09/24/24 Unknown docosahexaenoic acid (dha)-epa 120 1 cap PO DAILY 09/24/24 09/24/24 Unknown mg-180 mg capsule (Fish Oil) fluticasone propionate 115 2 puff inhalation BID 09/24/24 09/24/24 Unknown mcg-salmeterol 21 mcg/actuation HFA inhaler furosemide 40 mg tablet 20 mg PO DAILY 09/24/24 09/24/24 Unknown gabapentin 300 mg capsule 300 mg PO BID 09/24/24 09/24/24 Unknown ipratropium 0.5 mg-albuterol 3 mg 3 ml inhalation QID PRN Shortness 09/24/24 09/24/24 Unknown (2.5 mg base)/3 mL nebulization Of Breath Or Wheezing soln levothyroxine 25 mcg tablet 25 mcg PO DAILY 09/24/24 09/24/24 Unknown losartan 25 mg tablet 25 mg PO DAILY 09/24/24 09/24/24 Unknown magnesium oxide 400 mg PO BID 09/24/24 09/24/24 Unknown metoprolol succinate 50 mg 50 mg PO BID 09/24/24 09/24/24 Unknown tablet,extended release 24 hr multivitamin 1 tab PO DAILY 09/24/24 09/24/24 Unknown nitroglycerin 0.4 mg sublingual 0.4 mg sublingual UD 09/24/24 09/24/24 Unknown tablet oxybutynin chloride 5 mg 5 mg PO DAILY 09/24/24 09/24/24 Unknown tablet,extended release 24 hr oxycodone 5 mg tablet 5 mg PO Q4H PRN Pain 09/24/24 09/24/24 Unknown pantoprazole 40 mg tablet,delayed 40 mg PO DAILY 09/24/24 09/24/24 Unknown release (Protonix) potassium chloride 10 mEq 10 meq PO BID 09/24/24 09/24/24 Unknown tablet,extended release (Klor-Con) tiotropium bromide 18 mcg capsule 1 cap inhalation DAILY 09/24/24 09/24/24 Unknown with inhalation device Active Medications Generic Name Dose Route Start Last Admin Trade Name Freq PRN Reason Stop Dose Admin Famotidine 20 mg in 5 mls @ 2.5 mls/min 09/25/24 00:45 09/29/24 09:43 Pepcid 20mg Iv Push IV 10/25/24 00:44 2.5 mls/min BID GELACIO Administration Senna/Docusate Sodium 1 tab 09/25/24 09:00 09/29/24 09:43 Docusate Sodium/Senna 50/8.6mg Tab PO 10/25/24 08:59 Not Given QAM GELACIO (7) Acute and chronic respiratory failure Respiratory failure complication: hypoxia and hypercapnia Qualified Code(s): J96.21 - Acute and chronic respiratory failure with hypoxia; J96.22 - Acute and chronic respiratory failure with hypercapnia
[2024-09-29] MEDS ORDERED: [UNRECOGNIZED DRUG - OTHER] IV SCH (16:00)
[2024-09-29] MEDS ORDERED: CLINOLIPID 20% IV FAT EMULSION 250 ML IV SCH (16:00)
[2024-09-29] MEDS ORDERED: CENTRAL TPN IV SCH (16:00)
[2024-09-30] MEDS: MoRPHine SULFATE 2 MG/ML CARP IV PRN (04:38)
--- NOTE | 2024-09-30 12:16 | Palliative Care Progress Note ---
Date of Service September 30, 2024 Assessment & Plan (1) Palliative care by specialist: Plan: Palliative care will continue to follow for ongoing EOL pt care and family support. (2) Comfort measures only status: Plan: On daughter's request, pt transitioned to INSTRUMENT ASSEMBLY SUPERVISOR on 09/29/24, pending SNF placement for ongoing hospice care. (3) Need for comfort care: Plan: INSTRUMENT ASSEMBLY SUPERVISOR Symptom manamgement: Pain/dyspnea/tachypnea morphine 2mg IVP PRN [id number] Consider titratable morphine drip if pt requires >3 PRN doses in under two consecutive hours. Nausea/vomitting zofran 4mg IVP q4h PRN Agitation ativan 0.5mg IVP q4h PRN Hyperactive delirium haldol 5mg IVP q6h PRN Secretions - if repositioning not effective robinul 0.4mg IV q4h PRN atropine SL 3 drops Q1h PRN Nursing care: Discontinue all medications not directed towards comfort. Detether pt from IV tubing, monitor cables, and check vitals once per shift. Please continue HFNC and titrate down as able for patient comfort. Use medications above PRN for dyspnea/tachypnea and do not increase oxygen once titrated down. Assess q1h for pain/dyspnea and treat accordingly. Plan as above Admission and Anticipated Discharge Date Admission Date: September 24, 2024 Subjective Assessed pt at bedside, she was transitioned to INSTRUMENT ASSEMBLY SUPERVISOR on 09/29/24. Pt sleeping soundly and she had recently received morphine for pain. I did not attempt to awaken in concert with comfort directed care. She appears comfortable, pale skin, extremities cool to touch. Respiratory effort normal, rate 16/min with no witnessed periods of apnea. No visitors at bedside. Review of Systems Review of Systems: Unobtainable due to cognitive status Physical Exam Constitutional: well developed, + ill appearing, + altered mental status and comfortable Eyes: PERRL, conjunctivae normal, anicteric sclerae Neck: trachea midline, no thyromegaly Gastrointestinal (Abdomen): normal bowel sounds, soft, nontender, no hepatosplenomegaly Skin: + turgor decreased and + pallor Results & Data Vital Signs (Past 12 Hours) Vital Signs O2 Del Method 09/30/24 07:35 Room Air Laboratory Results No further labs or diagnostics in concert with comfort directed care. Diagnostic Findings No further labs or diagnostics in concert with comfort directed care. Medications Administered Current Inpatient Medications Albuterol (Albuterol 0.083% Nebu Soln 3 Ml Vial) 2.5 mg NEB Q6H PRN; Protocol PRN Reason: Shortness Of Breath Or Wheezing Stop: 10/24/24 23:21 Albuterol (Albut/Ipratrop 3mg/0.5mg Neb 3 Ml Vial) 3 ml NEB QIDR PRN; Protocol PRN Reason: Shortness Of Breath Or Wheezing Stop: 10/29/24 06:59 Atropine Sulfate (Atropine Sulfate 1% Op Soln 5 Ml Btl) 4 drops SL Q1H PRN PRN Reason: Secretions or pulm congestion Stop: 10/29/24 11:49 Budesonide (Budesonide 0.5 Mg/2 Ml Vial (Pulmicort)) 0.5 mg NEB BIDR PRN PRN Reason: Dyspnea Stop: 10/26/24 18:59 Glycopyrrolate (Glycopyrrolate 0.2 Mg/Ml Vial) 0.4 mg IV Q4H PRN PRN Reason: Rattling Secretions or Pulm Congestion Stop: 10/29/24 11:49 Heparin Sodium (Beef Lung) (Heparin 10 Unit/Ml 5 Ml Flush) 5 ml FLUSH PRN PRN PRN Reason: Flush Stop: 10/25/24 03:59 Famotidine (Pepcid 20mg Iv Push) 20 mg in 5 mls @ 2.5 mls/min IV BID GELACIO Stop: 10/25/24 00:44 Last Admin: 09/30/24 08:03 Dose: 2.5 mls/min Lorazepam (Lorazepam 2 Mg/1 Ml Vial) 0.5 mg IV Q4H PRN PRN Reason: Anxiety/Agitation Stop: 10/29/24 11:49 Morphine Sulfate (Morphine Sulfate 10 Mg/0.5 Ml Udp) 5 mg PO Q3H PRN PRN Reason: Pain or Respiratory Distress Stop: 10/13/24 11:49 Morphine Sulfate (Morphine Sulfate 2 Mg/Ml Carp) 2 mg IV Q4H PRN PRN Reason: Pain or Respiratory Distress Stop: 10/13/24 11:49 Last Admin: 09/30/24 12:00 Dose: 2 mg Ondansetron HCl (Ondansetron Inj 2 Mg/Ml 2 Ml Vial) 4 mg IV Q4H PRN PRN Reason: Nausea &/or Vomiting Stop: 10/29/24 11:49 Ondansetron HCl (Ondansetron 4 Mg Od Tab) 4 mg SL Q4H PRN PRN Reason: Nausea &/or Vomiting Stop: 10/29/24 11:49 Polyethylene Glycol (Polyethylene (Miralax) 17 Gm Pack) 17 gm PO DAILY PRN PRN Reason: Constipation Stop: 10/25/24 08:59 Senna/Docusate Sodium (Docusate Sodium/Senna 50/8.6mg Tab) 1 tab PO QAM GELACIO Stop: 10/25/24 08:59 Last Admin: 09/30/24 08:02 Dose: Not Given PG Care Time/CCT Total # of Minutes Spent Total Time Spent with Patient: Total time spent is greater than 50% in coordination of care (as documented) at patient's floor/unit and/or counseling patient: Coding Level of Care Code 76773 SUB INP/OBS CARE 2/35MIN Diagnoses Palliative care by specialist Z51.5 Comfort measures only status Z51.5 Need for comfort care
--- NOTE | 2024-09-30 14:06 | Hospitalist Progress Note ---
Date of Service September 30, 2024 Assessment & Plan (1) Septic shock: (2) Hypovolemic shock: (3) Acute metabolic encephalopathy: (4) Atrial fibrillation with RVR: (5) Acute blood loss anemia: (6) Hypoglycemia associated with diabetes: (7) Acute and chronic respiratory failure: (8) Urinary tract infection: (9) Shock liver: (10) Acute renal failure: (11) Myocardial infarction due to demand ischemia: (12) PAF (paroxysmal atrial fibrillation): Plan Ms. Johnston is 74 year old female with PMH COPD on chronic 3 L of oxygen, HTN, CAD (STEMI in 2022 s/p RCA intervention), paroxysmal atrial fibrillation, hypothyroidism admitted due to shock, likely multifactorial iso sepsis & hemorrhage, requiring pressors and also in acute on chronic resp failure requiring intubation and mechanical ventilation. Patient underwent emergency flex sig on 09/25 given report of active rectal bleeding' however, flex sig did not localize source EKG on admission revealed STEMI. 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 Patient with ongoing monthly admissions since 11/2023. Palliative consulted this admission with long GoC concerning patient's poor prognosis and marginal recovery. Ultimately on 09/29, patient was transitioned to MATTRESS STUFFER. patient continue on MATTRESS STUFFER awaiting possible SNF placement for hospice #MATTRESS STUFFER palliative following and case management #Acute metabolic encephalopathy #Septic & Hemorrhagic shock #acute on chronic resp failure s/p mechanical ventilation, chronic 3L of oxygen admitted to ICU 09/25, downgraded 09/28 patient was continued on cefepime since admission Patient transitioned to MATTRESS STUFFER #STEMI, likely demand iso sepsis/hemorrhagic shock EKG changes resolved s/p tx of above #A Fib RVR s/p amiodarone dip 09/25 AC discontinued #acute on chronic anemia s/p 2 UPRBC on 09/25 for hgb 6.8 appeared to have been hemorrhoidal #transaminitis downtrended #GUTIERREZ improved no intervention, renal fx at baseline continue cefepime #COPD #Chronic hypoxic respiratory failure: continue o2 for comfort #Hypokalemia: K+ 2.9, Mg +1.7 Replaced as able stop labs 2/2 MATTRESS STUFFER #HTN (hypertension): MATTRESS STUFFER #Chronic CAD s/p RCA stent in 02/2023. MATTRESS STUFFER DVT MATTRESS STUFFER Dispo: possible dispo to snf with hospice given concerns/limitation for care at home Admission and Anticipated Discharge Date Admission Date: September 24, 2024 Subjective Evaluated at bedside opens eyes to verbal stimuli, but no vocalizations today no apparent distress Physical Exam Constitutional: resting calmly, awakens, not oriented/alert Respiratory: diminished 2/2 effort Cardiovascular: rrr Results & Data Results & Data Vital Signs (Past 12 Hours) Vital Signs O2 Del Method 09/30/24 07:35 Room Air (7) Acute and chronic respiratory failure Respiratory failure complication: hypoxia and hypercapnia Qualified Code(s): J96.21 - Acute and chronic respiratory failure with hypoxia; J96.22 - Acute and chronic respiratory failure with hypercapnia
--- NOTE | 2024-10-01 14:26 | Hospitalist Progress Note ---
Date of Service October 01, 2024 Assessment & Plan (1) Septic shock: (2) Hypovolemic shock: (3) Acute metabolic encephalopathy: (4) Atrial fibrillation with RVR: (5) Acute blood loss anemia: (6) Hypoglycemia associated with diabetes: (7) Acute and chronic respiratory failure: (8) Urinary tract infection: (9) Shock liver: (10) Acute renal failure: (11) Myocardial infarction due to demand ischemia: (12) PAF (paroxysmal atrial fibrillation): Plan Ms. Johnston is 74 year old female with PMH COPD on chronic 3 L of oxygen, HTN, CAD (STEMI in 2022 s/p RCA intervention), paroxysmal atrial fibrillation, hypothyroidism admitted due to shock, likely multifactorial iso sepsis & hemorrhage, requiring pressors and also in acute on chronic resp failure requiring intubation and mechanical ventilation. Patient underwent emergency flex sig on 09/25 given report of active rectal bleeding' however, flex sig did not localize source EKG on admission revealed STEMI. Patient was to go to label stamper but deferred as changes resolved and felt to be 2/2 sepsis. Patient with ongoing monthly admissions since 11/2023. Palliative consulted this admission with long GoC concerning patient's poor prognosis and marginal recovery. Ultimately on 09/29, patient was transitioned to ZONE MANAGER. patient continue on ZONE MANAGER awaiting possible SNF placement for hospice #ZONE MANAGER palliative following and case management #Acute metabolic encephalopathy #Septic & Hemorrhagic shock #acute on chronic resp failure s/p mechanical ventilation, chronic 3L of oxygen admitted to ICU 09/25, downgraded 09/28 patient was continued on cefepime since admission Patient transitioned to ZONE MANAGER 09/29 #STEMI, likely demand iso sepsis/hemorrhagic shock EKG changes resolved s/p tx of above #A Fib RVR s/p amiodarone dip 09/25 AC discontinued #acute on chronic anemia s/p 2 UPRBC on 09/25 for hgb 6.8 appeared to have been hemorrhoidal #transaminitis downtrended #GUTIERREZ improved no intervention, renal fx at baseline continue cefepime #COPD #Chronic hypoxic respiratory failure: continue o2 for comfort #Hypokalemia: K+ 2.9, Mg +1.7 Replaced as able stop labs 2/2 ZONE MANAGER #HTN (hypertension): ZONE MANAGER #Chronic CAD s/p RCA stent in 02/2023. ZONE MANAGER DVT ZONE MANAGER Dispo: possible dispo to snf with hospice given concerns/limitation for care at home Admission and Anticipated Discharge Date Admission Date: September 24, 2024 Subjective Evaluated at bedside opens eyes to verbal stimuli, but no vocalizations no apparent distress Physical Exam Physical Exam: Constitutional: resting calmly, a wakens, not orient ed/alert Respiratory: diminished 2/2 ef fort Cardiovascular: rrr Results & Data Results & Data Vital Signs (Past 12 Hours) Vital Signs O2 Del Method 10/01/24 07:30 Room Air (7) Acute and chronic respiratory failure Respiratory failure complication: hypoxia and hypercapnia Qualified Code(s): J96.21 - Acute and chronic respiratory failure with hypoxia; J96.22 - Acute and chronic respiratory failure with hypercapnia
--- NOTE | 2024-10-02 13:15 | Hospitalist Progress Note ---
Date of Service October 02, 2024 Assessment & Plan (1) Septic shock: (2) Hypovolemic shock: (3) Acute metabolic encephalopathy: (4) Atrial fibrillation with RVR: (5) Acute blood loss anemia: (6) Hypoglycemia associated with diabetes: (7) Acute and chronic respiratory failure: (8) Urinary tract infection: (9) Shock liver: (10) Acute renal failure: (11) Myocardial infarction due to demand ischemia: (12) PAF (paroxysmal atrial fibrillation): Plan Ms. Johnston is 74 year old female with PMH COPD on chronic 3 L of oxygen, HTN, CAD (STEMI in 2022 s/p RCA intervention), paroxysmal atrial fibrillation, hypothyroidism admitted due to shock, likely multifactorial iso sepsis & hemorrhage, requiring pressors and also in acute on chronic resp failure requiring intubation and mechanical ventilation. Patient underwent emergency flex sig on 09/25 given report of active rectal bleeding' however, flex sig did not localize source EKG on admission revealed STEMI. Patient was to go to seed laboratory assistant but deferred as changes resolved and felt to be 2/2 sepsis. Patient with ongoing monthly admissions since 11/2023. Palliative consulted this admission with long GoC concerning patient's poor prognosis and marginal recovery. Ultimately on 09/29, patient was transitioned to NEGOTIATIONS DIRECTOR. patient continue on NEGOTIATIONS DIRECTOR awaiting possible SNF placement for hospice #NEGOTIATIONS DIRECTOR palliative following and case management #Acute metabolic encephalopathy #Septic & Hemorrhagic shock #acute on chronic resp failure s/p mechanical ventilation, chronic 3L of oxygen admitted to ICU 09/25, downgraded 09/28 patient was continued on cefepime since admission Patient transitioned to NEGOTIATIONS DIRECTOR 09/29 #STEMI, likely demand iso sepsis/hemorrhagic shock EKG changes resolved s/p tx of above #A Fib RVR s/p amiodarone dip 09/25 AC discontinued #acute on chronic anemia s/p 2 UPRBC on 09/25 for hgb 6.8 appeared to have been hemorrhoidal #transaminitis downtrended #GUTIERREZ improved no intervention, renal fx at baseline continue cefepime #COPD #Chronic hypoxic respiratory failure: continue o2 for comfort #Hypokalemia: K+ 2.9, Mg +1.7 Replaced as able stop labs 2/2 NEGOTIATIONS DIRECTOR #HTN (hypertension): NEGOTIATIONS DIRECTOR #Chronic CAD s/p RCA stent in 02/2023. NEGOTIATIONS DIRECTOR DVT NEGOTIATIONS DIRECTOR Dispo: possible dispo to snf with hospice given concerns/limitation for care at home Admission and Anticipated Discharge Date Admission Date: September 24, 2024 Subjective Evaluated at bedside opens eyes to verbal stimuli, but no vocalizations no apparent distress Physical Exam Physical Exam: Constitutional: resting calmly, a wakens, not orient ed/alert Respiratory: diminished 2/2 ef fort Cardiovascular: rrr Results & Data Results & Data Vital Signs (Past 12 Hours) Vital Signs O2 Del Method 10/02/24 07:33 Room Air (7) Acute and chronic respiratory failure Respiratory failure complication: hypoxia and hypercapnia Qualified Code(s): J96.21 - Acute and chronic respiratory failure with hypoxia; J96.22 - Acute and chronic respiratory failure with hypercapnia
--- NOTE | 2024-10-03 10:20 | Hospitalist Progress Note ---
Date of Service October 03, 2024 Assessment & Plan (1) Septic shock: (2) Hypovolemic shock: (3) Acute metabolic encephalopathy: (4) Atrial fibrillation with RVR: (5) Acute blood loss anemia: (6) Hypoglycemia associated with diabetes: (7) Acute and chronic respiratory failure: (8) Urinary tract infection: (9) Shock liver: (10) Acute renal failure: (11) Myocardial infarction due to demand ischemia: (12) PAF (paroxysmal atrial fibrillation): Plan Patient 74-year-old female with multiple medical comorbidities and is now on comfort measures Communication with case management, placement is difficult due to finances. Pursuing medical assistance and hospice care. Continue PRESIDENT & CEO Admission and Anticipated Discharge Date Admission Date: September 24, 2024 Subjective Patient only opens her eyes and turns her head to your voice no other response. Physical Exam Physical Exam: Constitutional: Lethargic, frail, chronically ill, HEENT: Mucous membranes moist. Lungs: Decreased CV: S1-S2, regular Abdomen: Soft, nontender, nondistended Extremities: Third space edema Neuro: Only opens eyes and turns head to voice, no other intentional movements, does not follow commands Psych: Lethargic (7) Acute and chronic respiratory failure Respiratory failure complication: hypoxia and hypercapnia Qualified Code(s): J96.21 - Acute and chronic respiratory failure with hypoxia; J96.22 - Acute and chronic respiratory failure with hypercapnia
[2024-10-03] MEDS ORDERED: ALBUT/IPRATROP 3MG/0.5MG NEB 3 ML VIAL NEB PRN (10:24)
[2024-10-03] MEDS: MoRPHine SULFATE 10 MG/0.5 ML UDP PO PRN (12:59)
--- NOTE | 2024-10-04 10:50 | Hospitalist Progress Note ---
Date of Service October 04, 2024 Assessment & Plan (1) Septic shock: (2) Hypovolemic shock: (3) Acute metabolic encephalopathy: (4) Atrial fibrillation with RVR: (5) Acute blood loss anemia: (6) Hypoglycemia associated with diabetes: (7) Acute and chronic respiratory failure: (8) Urinary tract infection: (9) Shock liver: (10) Acute renal failure: (11) Myocardial infarction due to demand ischemia: (12) PAF (paroxysmal atrial fibrillation): Plan Patient with multiple comorbidities and end-stage organ failure. Continue comfort measures only Case management continue to pursue options for hospice care at other facility. Updated daughter via phone Admission and Anticipated Discharge Date Admission Date: September 24, 2024 Subjective Patient a bit more responsive this morning. Was able to reply good morning faintly Physical Exam Physical Exam: Constitutional: Lethargic, frail, weak HEENT: Mucous membranes dry Lungs: Decreased breath sounds CV: S1-S2, regular Abdomen: Soft, nontender, nondistended Extremities: Some third space edema in extremities Neuro: Lethargic, does open eyes when you call urine her name and turn her head towards you. Able to say good morning faintly. Unable to follow any other commands Psych: Cooperative, normal mood Results & Data Results & Data Vital Signs (Past 12 Hours) Vital Signs O2 Del Method 10/04/24 07:39 Room Air 10/03/24 23:42 Room Air (7) Acute and chronic respiratory failure Respiratory failure complication: hypoxia and hypercapnia Qualified Code(s): J96.21 - Acute and chronic respiratory failure with hypoxia; J96.22 - Acute and chronic respiratory failure with hypercapnia
--- NOTE | 2024-10-04 10:51 | Palliative Care Progress Note ---
Date of Service October 04, 2024 Assessment & Plan (1) Palliative care by specialist: Plan: Palliative care will continue to follow for ongoing EOL pt care and family support. (2) Comfort measures only status: Plan: On daughter's request, pt transitioned to STENCIL TYPIST on 09/29/24, pending SNF placement for ongoing hospice care. (3) Need for comfort care: Plan: STENCIL TYPIST Symptom manamgement: Pain/dyspnea/tachypnea morphine 2mg IVP PRN [id number] Consider titratable morphine drip if pt requires >3 PRN doses in under two consecutive hours. Nausea/vomitting zofran 4mg IVP q4h PRN Agitation ativan 0.5mg IVP q4h PRN Hyperactive delirium haldol 5mg IVP q6h PRN Secretions - if repositioning not effective robinul 0.4mg IV q4h PRN atropine SL 3 drops Q1h PRN Nursing care: Discontinue all medications not directed towards comfort. Detether pt from IV tubing, monitor cables, and check vitals once per shift. Please continue HFNC and titrate down as able for patient comfort. Use medications above PRN for dyspnea/tachypnea and do not increase oxygen once titrated down. Assess q1h for pain/dyspnea and treat accordingly. Plan as above Admission and Anticipated Discharge Date Admission Date: September 24, 2024 Subjective Assessed pt at bedside, she was transitioned to STENCIL TYPIST on 09/29/24. Pt sleeping soundly,. I did not attempt to awaken in concert with comfort directed care. She appears comfortable, pale skin, extremities cool to touch. Respiratory effort normal, rate 16/min with no witnessed periods of apnea. No visitors at bedside. Review of Systems Review of Systems: Unobtainable due to cognitive status Physical Exam Constitutional: well developed, + ill appearing, + altered mental status and comfortable Eyes: PERRL, conjunctivae normal, anicteric sclerae Neck: trachea midline, no thyromegaly Gastrointestinal (Abdomen): normal bowel sounds, soft, nontender, no hepatosplenomegaly Skin: + turgor decreased and + pallor Results & Data Vital Signs (Past 12 Hours) Vital Signs O2 Del Method 10/04/24 07:39 Room Air 10/03/24 23:42 Room Air Laboratory Results No further labs or diagnostics in concert with comfort directed care. Diagnostic Findings No further labs or diagnostics in concert with comfort directed care. Medications Administered Current Inpatient Medications Albuterol (Albut/Ipratrop 3mg/0.5mg Neb 3 Ml Vial) 3 ml NEB Q4H PRN; Protocol PRN Reason: Shortness Of Breath Or Wheezing Stop: 10/29/24 08:30 Atropine Sulfate (Atropine Sulfate 1% Op Soln 5 Ml Btl) 4 drops SL Q1H PRN PRN Reason: Secretions or pulm congestion Stop: 10/29/24 11:49 Glycopyrrolate (Glycopyrrolate 0.2 Mg/Ml Vial) 0.4 mg IV Q4H PRN PRN Reason: Rattling Secretions or Pulm Congestion Stop: 10/29/24 11:49 Heparin Sodium (Beef Lung) (Heparin 10 Unit/Ml 5 Ml Flush) 5 ml FLUSH PRN PRN PRN Reason: Flush Stop: 10/25/24 03:59 Last Admin: 10/04/24 09:06 Dose: 15 ml Lorazepam (Lorazepam 1 Mg Tab) 1 mg SL Q4H PRN PRN Reason: discomfort, restless Stop: 11/02/24 10:22 Morphine Sulfate (Morphine Sulfate 10 Mg/0.5 Ml Udp) 5 mg PO Q1H PRN PRN Reason: Pain or Respiratory Distress Stop: 10/13/24 11:49 Last Admin: 10/03/24 12:59 Dose: 5 mg Ondansetron HCl (Ondansetron Inj 2 Mg/Ml 2 Ml Vial) 4 mg IV Q4H PRN PRN Reason: Nausea &/or Vomiting Stop: 10/29/24 11:49 Ondansetron HCl (Ondansetron 4 Mg Od Tab) 4 mg SL Q4H PRN PRN Reason: Nausea &/or Vomiting Stop: 10/29/24 11:49 PG Care Time/CCT Total # of Minutes Spent Total Time Spent with Patient: Total time spent is greater than 50% in coordination of care (as documented) at patient's floor/unit and/or counseling patient: Coding [place] [address] SUB INP/OBS CARE 05/07MIN Patient Type Established History Problem Focused Exam Problem Focused Medical Decision Making Low Complexity Diagnoses Palliative care by specialist Z51.5 Comfort measures only status Z51.5 Need for comfort care
--- NOTE | 2024-10-05 11:41 | Palliative Care Progress Note ---
Date of Service October 05, 2024 Assessment & Plan (1) Palliative care by specialist: Plan: Palliative care will continue to follow for ongoing EOL pt care and family support. (2) Comfort measures only status: Plan: On daughter's request, pt transitioned to BEHAVIORIST on 09/29/24, pending SNF placement for ongoing hospice care. Met with Cindy at bedside today. She shared that her mother has been speaking clearly to her today, she held her hand and recognized her. Cindy asked if this is a sign of improvement. I encouraged her to cherish the more alert and lucid moments the patient has and discussed the phenomenon of End of Life Rally. When a person facing the end of life rallies, they seem to become "more stable" - may want to talk or even begin taking PO; this is usually seen as a sudden burst of energy before . This period of perking up can be accompanied by such a notable change in mental clarity that is often referred to as terminal lucidity. This change in cognition and behavior goes against everything families learn about the physical signs that the end of life is near. It is important to note that evidence-based data is elusive, if nonexistent. Theories support that it may be a search for a final, strong connection. Also, as organs shut down, they can release a steroid like compound that briefly rouses the body - in the specific case of brain tumors, swelling occurs in the confined space of the skull. The edema shrinks as EOL care patients are weaned off food and drink, waking up the brain a bit. Families and caregivers may grasp at what seems to be a turnaround in a loved ones health, however, the EOL Rally is a hallmark pre- sign. It is not uncommon for patients to show improvement before : they may want to talk while others may become restless or act as if they need to start preparing for a trip. Some patients will become more relaxed yet remain tuned in to what is going on around them, others will show signs of physical stability when, seconds before, they seemed on the verge of letting go. A rally can last for a few moments or even days. Short or long, these temporary improvements can have a profound effect on loved ones who are keeping dillard. Like a moment of clarity for someone who has dementia, a rally is one last opportunity to connect with a loved one. Each persons experience is unique and impossible to predict with total accuracy. Life is full of questions, and some of them simply are not meant to be answered. Anticipatory guidance offered. Discussed changes pt may move through in the dying process including but not limited to sleeping more, disorientation when awake, restlessness, diminished senses/inability to respond to stimulus although ability to be aware of them remains intact longer, and changes in body temperatures, skin changes/mottling/cyanosis, respiratory pattern changes, and oral secretions. Cindy verbalized understanding. The goal is to assure a peaceful . (3) Need for comfort care: Plan: BEHAVIORIST Symptom manamgement: Pain/dyspnea/tachypnea morphine 2mg IVP PRN [id number] Consider titratable morphine drip if pt requires >3 PRN doses in under two consecutive hours. Nausea/vomitting zofran 4mg IVP q4h PRN Agitation ativan 0.5mg IVP q4h PRN Hyperactive delirium haldol 5mg IVP q6h PRN Secretions - if repositioning not effective robinul 0.4mg IV q4h PRN atropine SL 3 drops Q1h PRN Nursing care: Discontinue all medications not directed towards comfort. Detether pt from IV tubing, monitor cables, and check vitals once per shift. Please continue HFNC and titrate down as able for patient comfort. Use medications abov e PRN for dyspnea/tachypnea and do not increase oxygen once titrated down. Assess q1h for pain/dyspnea and treat accordingly. Plan as above Admission and Anticipated Discharge Date Admission Date: September 24, 2024 Subjective Assessed pt at bedside, she was transitioned to BEHAVIORIST on 09/29/24. Pt awake and alert today, minimally conversant but did follow simple commands and respond "no" when asked if she was in pain. Respiratory effort normal, rate 16/min on room air. Pt's daughter was at bedside. Review of Systems Review of Systems: All systems reviewed & are unremarkable except as noted in Subjective Physical Exam Constitutional: well developed, + ill appearing, + altered mental status and comfortable Eyes: PERRL, conjunctivae normal, anicteric sclerae Neck: trachea midline, no thyromegaly Gastrointestinal (Abdomen): normal bowel sounds, soft, nontender, no hepatosplenomegaly Skin: + turgor decreased and + pallor Results & Data Vital Signs (Past 12 Hours) Vital Signs O2 Del Method 10/05/24 07:47 Room Air Laboratory Results No further labs or diagnostics in concert with comfort directed care. Diagnostic Findings No further labs or diagnostics in concert with comfort directed care. Medications Administered Current Inpatient Medications Albuterol (Albut/Ipratrop 3mg/0.5mg Neb 3 Ml Vial) 3 ml NEB Q4H PRN; Protocol PRN Reason: Shortness Of Breath Or Wheezing Stop: 10/29/24 08:30 Atropine Sulfate (Atropine Sulfate 1% Op Soln 5 Ml Btl) 4 drops SL Q1H PRN PRN Reason: Secretions or pulm congestion Stop: 10/29/24 11:49 Glycopyrrolate (Glycopyrrolate 0.2 Mg/Ml Vial) 0.4 mg IV Q4H PRN PRN Reason: Rattling Secretions or Pulm Congestion Stop: 10/29/24 11:49 Heparin Sodium (Beef Lung) (Heparin 10 Unit/Ml 5 Ml Flush) 5 ml FLUSH PRN PRN PRN Reason: Flush Stop: 10/25/24 03:59 Last Admin: 10/04/24 09:06 Dose: 15 ml Lorazepam (Lorazepam 1 Mg Tab) 1 mg SL Q4H PRN PRN Reason: discomfort, restless Stop: 11/02/24 10:22 Morphine Sulfate (Morphine Sulfate 10 Mg/0.5 Ml Udp) 5 mg PO Q1H PRN PRN Reason: Pain or Respiratory Distress Stop: 10/13/24 11:49 Last Admin: 10/03/24 12:59 Dose: 5 mg Ondansetron HCl (Ondansetron Inj 2 Mg/Ml 2 Ml Vial) 4 mg IV Q4H PRN PRN Reason: Nausea &/or Vomiting Stop: 10/29/24 11:49 Ondansetron HCl (Ondansetron 4 Mg Od Tab) 4 mg SL Q4H PRN PRN Reason: Nausea &/or Vomiting Stop: 10/29/24 11:49 PG Care Time/CCT Total # of Minutes Spent Total Time Spent with Patient: Total time spent is greater than 50% in coordination of care (as documented) at patient's floor/unit and/or counseling patient: [place] [id number] SUB INP/OBS CARE 2/35MIN Patient Type Established History Problem Focused Exam Problem Focused Medical Decision Making Low Complexity Diagnoses Palliative care by specialist Z51.5 Comfort measures only status Z51.5 Need for comfort care
--- NOTE | 2024-10-05 12:42 | Hospitalist Progress Note ---
Date of Service October 05, 2024 Assessment & Plan (1) Septic shock: (2) Hypovolemic shock: (3) Acute metabolic encephalopathy: (4) Atrial fibrillation with RVR: (5) Acute blood loss anemia: (6) Hypoglycemia associated with diabetes: (7) Acute and chronic respiratory failure: (8) Urinary tract infection: (9) Shock liver: (10) Acute renal failure: (11) Myocardial infarction due to demand ischemia: (12) PAF (paroxysmal atrial fibrillation): Plan Patient 74-year-old female with multiple end-stage comorbidities on comfort measures. Continue to ensure patient's comfort Continue to pursue placement for comfort care elsewhere Admission and Anticipated Discharge Date Admission Date: September 24, 2024 Subjective No acute issues overnight. Does open her eyes and turn her head immediately to me when I call her name Physical Exam Physical Exam: Constitutional: Overall still lethargic, frail, cachectic, chronically ill HEENT: Mucous membranes dry Lungs: Decreased breath sounds CV: S1-S2, regular Abdomen: Soft, nontender, nondistended Extremities: Left third space edema Neuro: Lethargic, some moaning, did attempt to squeeze my fingers on command. Did turn her head towards my voice when I called her name Psych: Lethargic, impaired cognition, encephalopathic Results & Data Results & Data Vital Signs (Past 12 Hours) Vital Signs O2 Del Method 10/05/24 07:47 Room Air (7) Acute and chronic respiratory failure Respiratory failure complication: hypoxia and hypercapnia Qualified Code(s): J96.21 - Acute and chronic respiratory failure with hypoxia; J96.22 - Acute and chronic respiratory failure with hypercapnia
--- NOTE | 2024-10-06 11:34 | Hospitalist Progress Note ---
Date of Service October 06, 2024 Assessment & Plan (1) Comfort measures only status: (2) Septic shock: (3) Hypovolemic shock: (4) Acute metabolic encephalopathy: (5) Atrial fibrillation with RVR: (6) Acute blood loss anemia: (7) Hypoglycemia associated with diabetes: (8) Acute and chronic respiratory failure: (9) Urinary tract infection: (10) Shock liver: (11) Acute renal failure: (12) Myocardial infarction due to demand ischemia: (13) PAF (paroxysmal atrial fibrillation): Plan Patient 74-year-old female with multiple end-stage comorbidities and has been on comfort measures while case management pursuing alternative level of care. Today patient is much more alert and interactive and independently moving her hands and arms. This is improvement from the last multiple days. Ultimately, did not believe that her improved status changes her overall prognosis. Continue with comfort measures. Will advance diet since she is much more alert and she independently grab the bedside cup and was drinking some water., Pleasure feeds in the setting of comfort measures Discontinue central line Case management continue to pursue placement. They report that patient's daughter has provided finances to medical assistance and application has been placed. This may assist with getting the patient alternative levels of care. Updated patient's daughter via phone Admission and Anticipated Discharge Date Admission Date: September 24, 2024 Subjective Patient surprisingly responsive. When I walked in the room she had reached over to bedside table grabbed a cup and was drinking from the Straw. She answered some of my questions. Indicated that she was not in pain or any type of shortness of breath. Physical Exam Physical Exam: Constitutional: Much more awake, responsive and alert compared to previous days HEENT: Mucous membranes moist. Lungs: Decreased breath sounds CV: S1-S2, regular Abdomen: Soft, nontender, nondistended Extremities: No significant edema Neuro: Generally weak, is able to independently move her arms now. Does respond to some questions and commands Psych: Significantly less lethargic, impaired memory, impaired mentation and cognition Results & Data Results & Data Vital Signs (Past 12 Hours) Vital Signs O2 Del Method 10/06/24 07:25 Room Air (8) Acute and chronic respiratory failure Respiratory failure complication: hypoxia and hypercapnia Qualified Code(s): J96.21 - Acute and chronic respiratory failure with hypoxia; J96.22 - Acute and chronic respiratory failure with hypercapnia
--- NOTE | 2024-10-07 12:59 | Palliative Care Progress Note ---
Date of Service October 07, 2024 Assessment & Plan (1) Palliative care by specialist: Plan: Palliative care will continue to follow for ongoing EOL pt care and family support. (2) Comfort measures only status: Plan: On daughter's request, pt transitioned to DRY PRESS OPERATOR on 09/29/24, pending SNF placement for ongoing hospice care. No visitors at bedside today. (3) Need for comfort care: Plan: DRY PRESS OPERATOR Symptom manamgement: Pain/dyspnea/tachypnea morphine 2mg IVP PRN [id number] Consider titratable morphine drip if pt requires >3 PRN doses in under two consecutive hours. Nausea/vomitting zofran 4mg IVP q4h PRN Agitation ativan 0.5mg IVP q4h PRN Hyperactive delirium haldol 5mg IVP q6h PRN Secretions - if repositioning not effective robinul 0.4mg IV q4h PRN atropine SL 3 drops Q1h PRN Nursing care: Discontinue all medications not directed towards comfort. Detether pt from IV tubing, monitor cables, and check vitals once per shift. Please continue HFNC and titrate down as able for patient comfort. Use medications above PRN for dyspnea/tachypnea and do not increase oxygen once titrated down. Assess q1h for pain/dyspnea and treat accordingly. Plan as above Admission and Anticipated Discharge Date Admission Date: September 24, 2024 Subjective Assessed pt at bedside, she was transitioned to DRY PRESS OPERATOR on 09/29/24. Pt awake and alert today, minimally conversant but did follow simple commands and denies discomfort. Respiratory effort normal, rate 16/min on room air. No visitors at bedside. Review of Systems Review of Systems: All systems reviewed & are unremarkable except as noted in Subjective Physical Exam Constitutional: well developed, + ill appearing, + altered mental status and comfortable Eyes: PERRL, conjunctivae normal, anicteric sclerae Neck: trachea midline, no thyromegaly Gastrointestinal (Abdomen): normal bowel sounds, soft, nontender, no hepatosplenomegaly Skin: + turgor decreased and + pallor Results & Data Vital Signs (Past 12 Hours) Vital Signs O2 Del Method 10/07/24 07:20 Room Air Laboratory Results No further labs or diagnostics in concert with comfort directed care. Diagnostic Findings No further labs or diagnostics in concert with comfort directed care. Medications Administered Current Inpatient Medications Albuterol (Albut/Ipratrop 3mg/0.5mg Neb 3 Ml Vial) 3 ml NEB Q4H PRN; Protocol PRN Reason: Shortness Of Breath Or Wheezing Stop: 10/29/24 08:30 Atropine Sulfate (Atropine Sulfate 1% Op Soln 5 Ml Btl) 4 drops SL Q1H PRN PRN Reason: Secretions or pulm congestion Stop: 10/29/24 11:49 Glycopyrrolate (Glycopyrrolate 0.2 Mg/Ml Vial) 0.4 mg IV Q4H PRN PRN Reason: Rattling Secretions or Pulm Congestion Stop: 10/29/24 11:49 Heparin Sodium (Beef Lung) (Heparin 10 Unit/Ml 5 Ml Flush) 5 ml FLUSH PRN PRN PRN Reason: Flush Stop: 10/25/24 03:59 Last Admin: 10/06/24 08:10 Dose: 15 ml Lorazepam (Lorazepam 1 Mg Tab) 1 mg SL Q4H PRN PRN Reason: discomfort, restless Stop: 11/02/24 10:22 Morphine Sulfate (Morphine Sulfate 10 Mg/0.5 Ml Udp) 5 mg PO Q1H PRN PRN Reason: Pain or Respiratory Distress Stop: 10/13/24 11:49 Last Admin: 10/03/24 12:59 Dose: 5 mg Ondansetron HCl (Ondansetron Inj 2 Mg/Ml 2 Ml Vial) 4 mg IV Q4H PRN PRN Reason: Nausea &/or Vomiting Stop: 10/29/24 11:49 Ondansetron HCl (Ondansetron 4 Mg Od Tab) 4 mg SL Q4H PRN PRN Reason: Nausea &/or Vomiting Stop: 10/29/24 11:49 PG Care Time/CCT Total # of Minutes Spent Total Time Spent with Patient: Total time spent is greater than 50% in coordination of care (as documented) at patient's floor/unit and/or counseling patient: Coding [place] [address] SUB INP/OBS CARE 05/07MIN Patient Type Established History Problem Focused Exam Problem Focused Medical Decision Making Low Complexity Diagnoses Palliative care by specialist Z51.5 Comfort measures only status Z51.5 Need for comfort care
--- NOTE | 2024-10-07 14:21 | Hospitalist Progress Note ---
Date of Service October 07, 2024 Assessment & Plan (1) Comfort measures only status: (2) Septic shock: (3) Hypovolemic shock: (4) Acute metabolic encephalopathy: (5) Atrial fibrillation with RVR: (6) Acute blood loss anemia: (7) Hypoglycemia associated with diabetes: (8) Acute and chronic respiratory failure: (9) Urinary tract infection: (10) Shock liver: (11) Acute renal failure: (12) Myocardial infarction due to demand ischemia: (13) PAF (paroxysmal atrial fibrillation): Plan Ms. Johnston is 74 year old female with PMH COPD on chronic 3 L of oxygen, HTN, CAD (STEMI in 2022 s/p RCA intervention), paroxysmal atrial fibrillation, hypothyroidism admitted due to shock, likely multifactorial iso sepsis & hemorrhage, requiring pressors and also in acute on chronic resp failure requiring intubation and mechanical ventilation. Patient underwent emergency flex sig on 09/25 given report of active rectal bleeding' however, flex sig did not localize source EKG on admission revealed STEMI. Patient was to go to catheter finisher and inspector but deferred as changes resolved and felt to be 2/2 sepsis. Patient with ongoing monthly admissions since 11/2023. Palliative consulted this admission with long [facility] concerning patient's poor prognosis and marginal recovery. Ultimately on 09/29, patient was transitioned to MIXED CROP AND LIVESTOCK FARM WORKER. Today patient alert and interactive and independently moving her hands and arms. She is working to drink and eat independently, but still requiring notable assistance. Case management continue to pursue placement. They report that patient's daughter has provided finances to medical assistance and application has been placed. This may assist with getting the patient alternative levels of care. MIXED CROP AND LIVESTOCK FARM WORKER Symptom management per Palliative: Pain/dyspnea/tachypnea morphine 2mg IVP PRN [id number] Consider titratable morphine drip if pt requires >3 PRN doses in under two consecutive hours. Nausea/vomitting zofran 4mg IVP q4h PRN Agitation ativan 0.5mg IVP q4h PRN Hyperactive delirium haldol 5mg IVP q6h PRN Secretions - if repositioning not effective robinul 0.4mg IV q4h PRN atropine SL 3 drops Q1h PRN Admission and Anticipated Discharge Date Admission Date: September 24, 2024 Subjective NAEO Eating cream of wheat and drinking milk Delayed in response time but communicative denies any pain or concerns Physical Exam Constitutional: WD/WN, vitals as above Respiratory: decreased 2/2 effort Cardiovascular: RRR, no murmur, no edema Gastrointestinal (Abdomen): normal bowel sounds, soft, nontender, no hepatosplenomegaly Results & Data Results & Data Vital Signs (Past 12 Hours) Vital Signs O2 Del Method 10/07/24 07:20 Room Air (8) Acute and chronic respiratory failure Respiratory failure complication: hypoxia and hypercapnia Qualified Code(s): J96.21 - Acute and chronic respiratory failure with hypoxia; J96.22 - Acute and chronic respiratory failure with hypercapnia
--- NOTE | 2024-10-08 11:17 | Hospitalist Progress Note ---
Date of Service October 08, 2024 Assessment & Plan (1) Comfort measures only status: (2) Septic shock: (3) Hypovolemic shock: (4) Acute metabolic encephalopathy: (5) Atrial fibrillation with RVR: (6) Acute blood loss anemia: (7) Hypoglycemia associated with diabetes: (8) Acute and chronic respiratory failure: (9) Urinary tract infection: (10) Shock liver: (11) Acute renal failure: (12) Myocardial infarction due to demand ischemia: (13) PAF (paroxysmal atrial fibrillation): Plan Ms. Johnston is 74 year old female with PMH COPD on chronic 3 L of oxygen, HTN, CAD (STEMI in 2022 s/p RCA intervention), paroxysmal atrial fibrillation, hypothyroidism admitted due to shock, likely multifactorial iso sepsis & hemorrhage, requiring pressors and also in acute on chronic resp failure requiring intubation and mechanical ventilation. Patient underwent emergency flex sig on 09/25 given report of active rectal bleeding' however, flex sig did not localize source EKG on admission revealed STEMI. Patient was to go to chemical laboratory scientist but deferred as changes resolved and felt to be 2/2 sepsis. Patient with ongoing monthly admissions since 11/2023. Palliative consulted this admission with long [facility] concerning patient's poor prognosis and marginal recovery. Ultimately on 09/29, patient was transitioned to BRANCH MANAGER. Today patient alert and interactive and independently moving her hands and arms. She is working to drink and eat independently, but still requiring notable assistance. Case management continue to pursue placement. They report that patient's daughter has provided finances to medical assistance and application has been placed. This may assist with getting the patient alternative levels of care. Patient continues on comfort measures. BRANCH MANAGER Symptom management per Palliative: Pain/dyspnea/tachypnea morphine 2mg IVP PRN [id number] Consider titratable morphine drip if pt requires >3 PRN doses in under two consecutive hours. Nausea/vomitting zofran 4mg IVP q4h PRN Agitation ativan 0.5mg IVP q4h PRN Hyperactive delirium haldol 5mg IVP q6h PRN Secretions - if repositioning not effective robinul 0.4mg IV q4h PRN atropine SL 3 drops Q1h PRN Admission and Anticipated Discharge Date Admission Date: September 24, 2024 Subjective resting calmly in bed NAEO Physical Exam Constitutional: WD/WN, vitals as above Respiratory: diminished 2/2 effort Cardiovascular: RRR, no murmur, no edema Results & Data Results & Data Vital Signs (Past 12 Hours) Vital Signs O2 Del Method 10/08/24 08:06 Room Air (8) Acute and chronic respiratory failure Respiratory failure complication: hypoxia and hypercapnia Qualified Code(s): J96.21 - Acute and chronic respiratory failure with hypoxia; J96.22 - Acute and chronic respiratory failure with hypercapnia
--- NOTE | 2024-10-09 10:52 | Hospitalist Progress Note ---
Date of Service October 09, 2024 Assessment & Plan (1) Comfort measures only status: (2) Septic shock: (3) Hypovolemic shock: (4) Acute metabolic encephalopathy: (5) Atrial fibrillation with RVR: (6) Acute blood loss anemia: (7) Hypoglycemia associated with diabetes: (8) Acute and chronic respiratory failure: (9) Urinary tract infection: (10) Shock liver: (11) Acute renal failure: (12) Myocardial infarction due to demand ischemia: (13) PAF (paroxysmal atrial fibrillation): Plan Ms. Johnston is 74 year old female with PMH COPD on chronic 3 L of oxygen, HTN, CAD (STEMI in 2022 s/p RCA intervention), paroxysmal atrial fibrillation, hypothyroidism admitted due to shock, likely multifactorial iso sepsis & hemorrhage, requiring pressors and also in acute on chronic resp failure requiring intubation and mechanical ventilation. Patient underwent emergency flex sig on 09/25 given report of active rectal bleeding' however, flex sig did not localize source EKG on admission revealed STEMI. Patient was to go to clinical laboratory technologist but deferred as changes resolved and felt to be 2/2 sepsis. Patient with ongoing monthly admissions since 11/2023. Palliative consulted this admission with long [facility] concerning patient's poor prognosis and marginal recovery. Ultimately on 09/29, patient was transitioned to HOUSEKEEPING AND LAUNDRY TEAM LEADER. Patient continues to be alert and interactive and independently moving her hands and arms. She is oriented to self. She is working to drink and eat independently, but still requiring notable assistance. Case management continues to pursue placement. They report that patient's daughter has provided finances to medical assistance and application has been placed. No current changes to management at this time. HOUSEKEEPING AND LAUNDRY TEAM LEADER Symptom management per Palliative: Pain/dyspnea/tachypnea morphine 2mg IVP PRN [id number] Consider titratable morphine drip if pt requires >3 PRN doses in under two consecutive hours. Nausea/vomitting zofran 4mg IVP q4h PRN Agitation ativan 0.5mg IVP q4h PRN Hyperactive delirium haldol 5mg IVP q6h PRN Secretions - if repositioning not effective robinul 0.4mg IV q4h PRN atropine SL 3 drops Q1h PRN Admission and Anticipated Discharge Date Admission Date: September 24, 2024 Subjective NAEO requesting to watch TV, no other acute concerns this am Physical Exam Constitutional: weak, but interactive, slow to respond but answers yes no questions readily Respiratory: diminshed 2/2 effort Cardiovascular: RRR, no murmur, no edema Results & Data Results & Data Vital Signs (Past 12 Hours) Vital Signs O2 Del Method 10/09/24 07:30 Room Air Medications Administered Home Medications Medication Instructions Recorded Confirmed Last Taken albuterol sulfate 90 mcg/actuation 2 puff inhalation Q4H PRN 09/24/24 09/24/24 Unknown aerosol inhaler Shortness Of Breath Or Wheezing alendronate 70 mg tablet 70 mg PO WK 09/24/24 09/24/24 Unknown apixaban 5 mg tablet (Eliquis) 5 mg PO BID 09/24/24 09/24/24 Unknown atorvastatin 40 mg tablet 40 mg PO DAILY 09/24/24 09/24/24 Unknown cholecalciferol (vitamin D3) 50 50 mcg PO DAILY 09/24/24 09/24/24 Unknown mcg (2,000 unit) capsule (Vitamin D3) citalopram 40 mg tablet 40 mg PO DAILY 09/24/24 09/24/24 Unknown clopidogrel 75 mg tablet (Plavix) 75 mg PO DAILY 09/24/24 09/24/24 Unknown docosahexaenoic acid (dha)-epa 120 1 cap PO DAILY 09/24/24 09/24/24 Unknown mg-180 mg capsule (Fish Oil) fluticasone propionate 115 2 puff inhalation BID 09/24/24 09/24/24 Unknown mcg-salmeterol 21 mcg/actuation HFA inhaler furosemide 40 mg tablet 20 mg PO DAILY 09/24/24 09/24/24 Unknown gabapentin 300 mg capsule 300 mg PO BID 09/24/24 09/24/24 Unknown ipratropium 0.5 mg-albuterol 3 mg 3 ml inhalation QID PRN Shortness 09/24/24 09/24/24 Unknown (2.5 mg base)/3 mL nebulization Of Breath Or Wheezing soln levothyroxine 25 mcg tablet 25 mcg PO DAILY 09/24/24 09/24/24 Unknown losartan 25 mg tablet 25 mg PO DAILY 09/24/24 09/24/24 Unknown magnesium oxide 400 mg PO BID 09/24/24 09/24/24 Unknown metoprolol succinate 50 mg 50 mg PO BID 09/24/24 09/24/24 Unknown tablet,extended release 24 hr multivitamin 1 tab PO DAILY 09/24/24 09/24/24 Unknown nitroglycerin 0.4 mg sublingual 0.4 mg sublingual UD 09/24/24 09/24/24 Unknown tablet oxybutynin chloride 5 mg 5 mg PO DAILY 09/24/24 09/24/24 Unknown tablet,extended release 24 hr oxycodone 5 mg tablet 5 mg PO Q4H PRN Pain 09/24/24 09/24/24 Unknown pantoprazole 40 mg tablet,delayed 40 mg PO DAILY 09/24/24 09/24/24 Unknown release (Protonix) potassium chloride 10 mEq 10 meq PO BID 09/24/24 09/24/24 Unknown tablet,extended release (Klor-Con) tiotropium bromide 18 mcg capsule 1 cap inhalation DAILY 09/24/24 09/24/24 Unknown with inhalation device Active Medications Generic Name Dose Route Start Last Admin Trade Name Freq PRN Reason Stop Dose Admin Heparin Sodium (Beef Lung) 5 ml 09/25/24 04:00 10/06/24 08:10 Heparin 10 Unit/Ml 5 Ml Flush FLUSH 10/25/24 03:59 15 ml PRN PRN Administration Flush Morphine Sulfate 5 mg 10/03/24 10:24 10/03/24 12:59 Morphine Sulfate 10 Mg/0.5 Ml Udp PO 10/13/24 11:49 5 mg Q1H PRN Administration Pain or Respiratory Distress (8) Acute and chronic respiratory failure Respiratory failure complication: hypoxia and hypercapnia Qualified Code(s): J96.21 - Acute and chronic respiratory failure with hypoxia; J96.22 - Acute and chronic respiratory failure with hypercapnia
--- NOTE | 2024-10-10 12:56 | Hospitalist Progress Note ---
Date of Service October 10, 2024 Assessment & Plan (1) Comfort measures only status: (2) Septic shock: (3) Hypovolemic shock: (4) Acute metabolic encephalopathy: (5) Atrial fibrillation with RVR: (6) Acute blood loss anemia: (7) Hypoglycemia associated with diabetes: (8) Acute and chronic respiratory failure: (9) Urinary tract infection: (10) Shock liver: (11) Acute renal failure: (12) Myocardial infarction due to demand ischemia: (13) PAF (paroxysmal atrial fibrillation): Plan Patient continues on comfort measures but continues to improve and become more alert and interactive despite any significant interventions. Will resume metoprolol for blood pressure control Will resume Synthroid, for her overall metabolic management as this will provide comfort At this point based on previous multiple hospitalizations And proven inability to maintain adequate care at home will need to continue to pursue placement. Admission and Anticipated Discharge Date Admission Date: September 24, 2024 Subjective Patient has made significant improvements over the weekend. Now sitting up, watching TV, feeding herself. She denies any pain. Physical Exam Physical Exam: Constitutional: Alert, nontoxic, responsive HEENT: Mucous membranes moist. Lungs: Clear to auscultation, decreased, no wheezes rales or rhonchi CV: S1-S2, regular Abdomen: Soft, nontender, nondistended Extremities: Some third spacing edema Neuro: No focal deficits, generally weak Psych: Cooperative, normal mood, impaired memory, impaired cognition Results & Data Results & Data Vital Signs (Past 12 Hours) Vital Signs O2 Del Method 10/10/24 07:25 Room Air (8) Acute and chronic respiratory failure Respiratory failure complication: hypoxia and hypercapnia Qualified Code(s): J96.21 - Acute and chronic respiratory failure with hypoxia; J96.22 - Acute and chronic respiratory failure with hypercapnia
[2024-10-10] MEDS: METOPROLOL SUCC 50MG EXT REL TAB PO SCH (21:47)
[2024-10-11] MEDS: LEVOTHYROXINE SODIUM 25 MCG TABLET PO SCH (08:12)
--- NOTE | 2024-10-11 11:05 | Palliative Care Progress Note ---
Date of Service October 11, 2024 Assessment & Plan (1) Palliative care by specialist: Plan: We will sign off on this patient as goals of care are clearly established for SAWMILL WORKER, pending placement. Pt has had no PRN requirements for several days. Thank you for including Palliative Care in the management of this patient. Please call with any questions or concerns regarding this consultation. (2) Comfort measures only status: Plan: On daughter's request, pt transitioned to SAWMILL WORKER on 09/29/24, pending SNF placement for ongoing hospice care. No visitors at bedside today. (3) Need for comfort care: Plan: SAWMILL WORKER Symptom manamgement: Pain/dyspnea/tachypnea morphine 2mg IVP PRN [id number] Consider titratable morphine drip if pt requires >3 PRN doses in under two consecutive hours. Nausea/vomitting zofran 4mg IVP q4h PRN Agitation ativan 0.5mg IVP q4h PRN Hyperactive delirium haldol 5mg IVP q6h PRN Secretions - if repositioning not effective robinul 0.4mg IV q4h PRN atropine SL 3 drops Q1h PRN Nursing care: Discontinue all medications not directed towards comfort. Detether pt from IV tubing, monitor cables, and check vitals once per shift. Please continue HFNC and titrate down as able for patient comfort. Use medications above PRN for dyspnea/tachypnea and do not increase oxygen once titrated down. Assess q1h for pain/dyspnea and treat accordingly. Plan as above Admission and Anticipated Discharge Date Admission Date: September 24, 2024 Subjective Assessed pt at bedside, she was transitioned to SAWMILL WORKER on 09/29/24. Pt awake and alert today, pleasantly conversant, follows simple commands and denies discomfort. Respiratory effort normal, rate 18/min on room air. No visitors at bedside. Review of Systems Review of Systems: All systems reviewed & are unremarkable except as noted in Subjective Physical Exam Constitutional: well developed, + ill appearing, + altered mental status and comfortable Eyes: PERRL, conjunctivae normal, anicteric sclerae Neck: trachea midline, no thyromegaly Gastrointestinal (Abdomen): normal bowel sounds, soft, nontender, no hepatosplenomegaly Skin: + turgor decreased and + pallor Results & Data Vital Signs (Past 12 Hours) Vital Signs Temp 36.4 C L 09/29/24 11:19 Pulse 82 10/10/24 21:45 Resp 16 10/10/24 21:45 BP 118/82 10/10/24 21:45 Pulse Ox 99 09/29/24 11:19 O2 Del Method Room Air 10/10/24 19:30 O2 Flow Rate 1 09/28/24 23:33 FiO2 21 09/28/24 01:03 Intake & Output 10/10/24 10/11/24 10/11/24 18:59 06:59 18:59 Intake Total 180 / 180 Output Total 701 / 1301 600 / 1301 Balance -701 / -1121 -420 / -1121 Weight 56.4 kg Intake: Oral 180 / 180 Output: Urine Amount (Catheter) 700 / 1300 600 / 1300 Temp Sensing Helms 700 / 1300 600 / 1300 # Bowel Movements Laboratory Results No further labs or diagnostics in concert with comfort directed care. Diagnostic Findings No further labs or diagnostics in concert with comfort directed care. Medications Administered Current Inpatient Medications Albuterol (Albut/Ipratrop 3mg/0.5mg Neb 3 Ml Vial) 3 ml NEB Q4H PRN; Protocol PRN Reason: Shortness Of Breath Or Wheezing Stop: 10/29/24 08:30 Atropine Sulfate (Atropine Sulfate 1% Op Soln 5 Ml Btl) 4 drops SL Q1H PRN PRN Reason: Secretions or pulm congestion Stop: 10/29/24 11:49 Glycopyrrolate (Glycopyrrolate 0.2 Mg/Ml Vial) 0.4 mg IV Q4H PRN PRN Reason: Rattling Secretions or Pulm Congestion Stop: 10/29/24 11:49 Heparin Sodium (Beef Lung) (Heparin 10 Unit/Ml 5 Ml Flush) 5 ml FLUSH PRN PRN PRN Reason: Flush Stop: 10/25/24 03:59 Last Admin: 10/06/24 08:10 Dose: 15 ml Levothyroxine Sodium (Levothyroxine Sodium 25 Mcg Tablet) 25 mcg PO DAILY GELACIO Stop: 11/10/24 08:59 Last Admin: 10/11/24 08:12 Dose: 25 mcg Lorazepam (Lorazepam 1 Mg Tab) 1 mg SL Q4H PRN PRN Reason: discomfort, restless Stop: 11/02/24 10:22 Metoprolol Succinate (Metoprolol Succ 50mg Ext Rel Tab) 50 mg PO BID GELACIO Stop: 11/09/24 20:59 Last Admin: 10/11/24 08:12 Dose: 50 mg Morphine Sulfate (Morphine Sulfate 10 Mg/0.5 Ml Udp) 5 mg PO Q1H PRN PRN Reason: Pain or Respiratory Distress Stop: 10/13/24 11:49 Last Admin: 10/03/24 12:59 Dose: 5 mg Ondansetron HCl (Ondansetron Inj 2 Mg/Ml 2 Ml Vial) 4 mg IV Q4H PRN PRN Reason: Nausea &/or Vomiting Stop: 10/29/24 11:49 Ondansetron HCl (Ondansetron 4 Mg Od Tab) 4 mg SL Q4H PRN PRN Reason: Nausea &/or Vomiting Stop: 10/29/24 11:49 Pantoprazole Sodium (Pantoprazole 40 Mg Tab) 40 mg PO DAILY GELACIO Stop: 11/10/24 08:59 Last Admin: 10/11/24 08:12 Dose: 40 mg PG Care Time/CCT Total # of Minutes Spent Total Time Spent with Patient: Total time spent is greater than 50% in coordination of care (as documented) at patient's floor/unit and/or counseling patient: Coding [place] [address] SUB INP/OBS CARE 05/07MIN Patient Type Established History Problem Focused Exam Problem Focused Medical Decision Making Low Complexity Diagnoses Palliative care by specialist Z51.5 Comfort measures only status Z51.5 Need for comfort care
--- NOTE | 2024-10-11 12:15 | Hospitalist Progress Note ---
Date of Service October 11, 2024 Assessment & Plan (1) Comfort measures only status: (2) Septic shock: (3) Hypovolemic shock: (4) Acute metabolic encephalopathy: (5) Atrial fibrillation with RVR: (6) Acute blood loss anemia: (7) Hypoglycemia associated with diabetes: (8) Acute and chronic respiratory failure: (9) Urinary tract infection: (10) Shock liver: (11) Acute renal failure: (12) Myocardial infarction due to demand ischemia: (13) PAF (paroxysmal atrial fibrillation): Plan Patient 74-year-old female initially presented in septic shock and hypovolemic shock from acute blood loss. Has subsequently significantly recovered. However, with her multiple comorbidities and frequent hospitalization goals of care have not changed from comfort measures only. Continue with comfort care Case management pursuing medical assistance applications and hopefully placement for ongoing care Patient cannot be cared for at home. No one is available to be with her 24/7 for assisted care and make sure that she gets meals, etc. Phone conversation update with patient's daughter. She is questioning whether patient could be cared for at home. Explained to her that she would need 24/7 care. Daughter requesting patient starts a mobility potentially as being sitting up in a chair. Update to case management Admission and Anticipated Discharge Date Admission Date: September 24, 2024 Subjective No acute issues overnight. Patient denies any pain. No shortness of breath. Nursing reports arm significantly better after removal of IV line Physical Exam Physical Exam: Constitutional: Alert, awake, sitting up watching TV HEENT: Mucous membranes moist. Lungs: Decreased breath sounds CV: S1-S2, regular Abdomen: Soft, nontender, nondistended Extremities: No significant edema Neuro: No focal deficits, generally weak Psych: Cooperative, normal mood, abnormal memory Results & Data Results & Data Vital Signs (Past 12 Hours) Vital Signs O2 Del Method 10/11/24 07:05 Room Air (8) Acute and chronic respiratory failure Respiratory failure complication: hypoxia and hypercapnia Qualified Code(s): J96.21 - Acute and chronic respiratory failure with hypoxia; J96.22 - Acute and chronic respiratory failure with hypercapnia
--- NOTE | 2024-10-12 15:10 | Hospitalist Progress Note ---
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, patient should be able to tolerate occasional unsupervised time a few days a week for a few hours, will generally need someone around to help if needed otherwise 03/11 -if unable to accommodate will need placement with hospice (2) Septic shock: Plan: -resolved (3) Hypovolemic shock: Plan: -resolved (4) Acute metabolic encephalopathy: Plan: -resolved (5) Atrial fibrillation with RVR: Plan: -continues to be in afib, rate controlled (6) Acute blood loss anemia: Plan: -improved (7) Hypoglycemia associated with diabetes: Plan: -likely in setting of poor PO intake (8) Acute and chronic respiratory failure: Plan: -very poor air movement on exam (9) Urinary tract infection: Plan: -resolved (10) Shock liver: Plan: -improved -likely in setting fo profound hypoxia, sepsis (11) Acute renal failure: Plan: -unclear status (12) Myocardial infarction due to demand ischemia: Plan: -cardiology was consulted, appreciate recs Plan I spent a total of 45 minutes in direct patient care, including [id number] time with the patient and/or family, reviewing medical records, ordering and reviewing diagnostic tests, and coordinating care with other healthcare providers. This time includes: history taking, physical examination, medical decision making, counseling, ECG interpretation, imaging interpretation, lab interpretation, orders, and education, excluding time spent in the performance of separately billed services. Admission and Anticipated Discharge Date Admission Date: September 24, 2024 Subjective Patient seen and examined at bedside. Patient doing ok, comfortable at this time. Unable to raise hands above head or shake hand. Review of Systems Review of Systems: CONSTITUTIONAL: Patient denies fevers, chills, sweats and weight changes. EYES: Patient denies any visual symptoms. EARS, NOSE, AND THROAT: No difficulties with hearing. No symptoms of rhinitis or sore throat. CARDIOVASCULAR: Patient denies chest pains, palpitations, orthopnea and paroxysmal nocturnal dyspnea. RESPIRATORY: No dyspnea on exertion, no wheezing or cough. GI: No nausea, vomiting, diarrhea, constipation, abdominal pain, hematochezia or melena. : No urinary hesitancy or dribbling. No nocturia or urinary frequency. No abnormal urethral discharge. MUSCULOSKELETAL: No myalgias or arthralgias. NEUROLOGIC: No chronic headaches, no seizures. Patient denies numbness, tingling or weakness. PSYCHIATRIC: Patient denies problems with mood disturbance. No problems with anxiety. ENDOCRINE: No excessive urination or excessive thirst. DERMATOLOGIC: Patient denies any rashes or skin changes. Physical Exam Physical Exam: Gen: A&O 3 NAD, cachexia and sarcopenia noted HEENT: NCAT, EOMI, not icteric. External ears normal. No rhinorrhea. Moist mucous membranes. Neck: Supple, full range of motion, no observable masses, No meningeal sign. Lungs: very poor air movement bilaterally CV: RRR, no edema. Abdomen: Soft, nondistended, No rebound tenderness. MSK: No joint swelling, no redness. Skin: No rashes, petechiae, lesions. Normal color per patient. Neuro: Normal Gait, Grossly intact. Psych: Appropriate for situation. Results & Data Results & Data Vital Signs (Past 12 Hours) Vital Signs Pulse BP O2 Del Method 10/12/24 09:03 62 124/84 10/12/24 07:30 Room Air Medications Administered Heparin Sodium (Beef Lung) (Heparin 10 Unit/Ml 5 Ml Flush) 5 ml FLUSH PRN PRN PRN Reason: Flush Stop: 10/25/24 03:59 Last Admin: 10/06/24 08:10 Dose: 15 ml Documented By: Admin: 10/04/24 09:06 Dose: 15 ml Documented By: QASIM Levothyroxine Sodium (Levothyroxine Sodium 25 Mcg Tablet) 25 mcg PO DAILY [facility] Stop: 11/10/24 08:59 Last Admin: 10/12/24 09:01 Dose: 25 mcg Documented By: Admin: 10/11/24 08:12 Dose: 25 mcg Documented By: C Metoprolol Succinate (Metoprolol Succ 50mg Ext Rel Tab) 50 mg PO BID [facility] Stop: 11/09/24 20:59 Last Admin: 10/12/24 08:57 Dose: 50 mg Documented By: Admin: 10/11/24 20:14 Dose: 50 mg Documented By: Admin: 10/11/24 08:12 Dose: 50 mg Documented By: Admin: 10/10/24 21:47 Dose: 50 mg Documented By: SND Morphine Sulfate (Morphine Sulfate 10 Mg/0.5 Ml Udp) 5 mg PO Q1H PRN PRN Reason: Pain or Respiratory Distress Stop: 10/13/24 11:49 Last Admin: 10/03/24 12:59 Dose: 5 mg Documented By: JOSEFINA Pantoprazole Sodium (Pantoprazole 40 Mg Tab) 40 mg PO DAILY [facility] Stop: 11/10/24 08:59 Last Admin: 10/12/24 09:01 Dose: 40 mg Documented By: Admin: 10/11/24 08:12 Dose: 40 mg Documented By: [facility] (8) Acute and chronic respiratory failure Respiratory failure complication: hypoxia and hypercapnia Qualified Code(s): J96.21 - Acute and chronic respiratory failure with hypoxia; J96.22 - Acute and chronic respiratory failure with hypercapnia
--- NOTE | 2024-10-13 14:09 | Hospitalist Progress Note ---
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, patient should be able to tolerate occasional unsupervised time a few days a week for a few hours, will generally need someone around to help if needed otherwise 03/11 -tentative discharge home with hospice on Thursday10/17/2024 -if unable to accommodate will need placement with hospice (2) Septic shock: Plan: -resolved (3) Hypovolemic shock: Plan: -resolved (4) Acute metabolic encephalopathy: Plan: -resolved (5) Atrial fibrillation with RVR: Plan: -continues to be in afib, rate controlled (6) Acute blood loss anemia: Plan: -improved (7) Hypoglycemia associated with diabetes: Plan: -likely in setting of poor PO intake (8) Acute and chronic respiratory failure: Plan: -very poor air movement on exam (9) Urinary tract infection: Plan: -resolved (10) Shock liver: Plan: -improved -likely in setting fo profound hypoxia, sepsis (11) Acute renal failure: Plan: -unclear status (12) Myocardial infarction due to demand ischemia: Plan: -cardiology was consulted, appreciate recs Plan I spent a total of 40 minutes in direct patient care, including [id number] time with the patient and/or family, reviewing medical records, ordering and reviewing diagnostic tests, and coordinating care with other healthcare providers. This time includes: history taking, physical examination, medical decision making, counseling, ECG interpretation, imaging interpretation, lab interpretation, orders, and education, excluding time spent in the performance of separately billed services. Admission and Anticipated Discharge Date Admission Date: September 24, 2024 Subjective Patient seen and examined at bedside. Comfortable at this time. Review of Systems Review of Systems: CONSTITUTIONAL: Patient denies fevers, chills, sweats and weight changes. EYES: Patient denies any visual symptoms. EARS, NOSE, AND THROAT: No difficulties with hearing. No symptoms of rhinitis or sore throat. CARDIOVASCULAR: Patient denies chest pains, palpitations, orthopnea and paroxysmal nocturnal dyspnea. RESPIRATORY: No dyspnea on exertion, no wheezing or cough. GI: No nausea, vomiting, diarrhea, constipation, abdominal pain, hematochezia or melena. : No urinary hesitancy or dribbling. No nocturia or urinary frequency. No abnormal urethral discharge. MUSCULOSKELETAL: No myalgias or arthralgias. NEUROLOGIC: No chronic headaches, no seizures. Patient denies numbness, tingling or weakness. PSYCHIATRIC: Patient denies problems with mood disturbance. No problems with anxiety. ENDOCRINE: No excessive urination or excessive thirst. DERMATOLOGIC: Patient denies any rashes or skin changes. Physical Exam Physical Exam: Gen: A&O 3 NAD, cachexia and sarcopenia noted HEENT: NCAT, EOMI, not icteric. External ears normal. No rhinorrhea. Moist mucous membranes. Neck: Supple, full range of motion, no observable masses, No meningeal sign. Lungs: very poor air movement bilaterally CV: RRR, no edema. Abdomen: Soft, nondistended, No rebound tenderness. MSK: No joint swelling, no redness. Skin: No rashes, petechiae, lesions. Normal color per patient. Neuro: Normal Gait, Grossly intact. Psych: Appropriate for situation. Results & Data Results & Data Vital Signs (Past 12 Hours) Vital Signs Pulse Resp BP Pulse Ox O2 Del Method 10/13/24 08:25 Room Air 10/13/24 08:25 76 15 127/85 97 Room Air Medications Administered Heparin Sodium (Beef Lung) (Heparin 10 Unit/Ml 5 Ml Flush) 5 ml FLUSH PRN PRN PRN Reason: Flush Stop: 10/25/24 03:59 Last Admin: 10/06/24 08:10 Dose: 15 ml Documented By: Admin: 10/04/24 09:06 Dose: 15 ml Documented By: QASIM Levothyroxine Sodium (Levothyroxine Sodium 25 Mcg Tablet) 25 mcg PO DAILY [facility] Stop: 11/10/24 08:59 Last Admin: 10/13/24 08:22 Dose: 25 mcg Documented By: Admin: 10/12/24 09:01 Dose: 25 mcg Documented By: Admin: 10/11/24 08:12 Dose: 25 mcg Documented By: [facility] Metoprolol Succinate (Metoprolol Succ 50mg Ext Rel Tab) 50 mg PO BID [facility] Stop: 11/09/24 20:59 Last Admin: 10/13/24 08:22 Dose: 50 mg Documented By: Admin: 10/12/24 20:25 Dose: 50 mg Documented By: Admin: 10/12/24 08:57 Dose: 50 mg Documented By: Admin: 10/11/24 20:14 Dose: 50 mg Documented By: Admin: 10/11/24 08:12 Dose: 50 mg Documented By: Admin: 10/10/24 21:47 Dose: 50 mg Documented By: CHRISTY Pantoprazole Sodium (Pantoprazole 40 Mg Tab) 40 mg PO DAILY [facility] Stop: 11/10/24 08:59 Last Admin: 10/13/24 08:22 Dose: 40 mg Documented By: Admin: 10/12/24 09:01 Dose: 40 mg Documented By: Admin: 10/11/24 08:12 Dose: 40 mg Documented By: SANJAYC (8) Acute and chronic respiratory failure Respiratory failure complication: hypoxia and hypercapnia Qualified Code(s): J96.21 - Acute and chronic respiratory failure with hypoxia; J96.22 - Acute and chronic respiratory failure with hypercapnia
[2024-10-13 21:36] VITALS: RESP 16
--- NOTE | 2024-10-14 12:16 | Hospitalist Progress Note ---
Date of Service October 14, 2024 Assessment & Plan (1) Comfort measures only status: Plan: -patient has many frequent admissions, severe COPD, poor compliance with therapies at home -sarcopenia, cachexia, ECOG of 4 at this time -significant COPD, cardiac disease (ST elevations on ECG), poor compliance with therapies, very poor functional/nutritional status put overall prognosis likely on scale of weeks to months, likely on weeks side -patient would like to pursue comfort at this time Plan: -working with daughter on hospice at home, patient should be able to tolerate occasional unsupervised time a few days a week for a few hours, will generally need someone around to help if needed otherwise 03/11 -tentative discharge home with hospice on Thursday10/17/2024 -if unable to accommodate will need placement with hospice (2) Septic shock: Plan: -resolved (3) Hypovolemic shock: Plan: -resolved (4) Acute metabolic encephalopathy: Plan: -resolved (5) Atrial fibrillation with RVR: Plan: -continues to be in afib, rate controlled (6) Acute blood loss anemia: Plan: -improved (7) Hypoglycemia associated with diabetes: Plan: -likely in setting of poor PO intake (8) Acute and chronic respiratory failure: Plan: -very poor air movement on exam (9) Urinary tract infection: Plan: -resolved (10) Shock liver: Plan: -improved -likely in setting fo profound hypoxia, sepsis (11) Acute renal failure: Plan: -unclear status (12) Myocardial infarction due to demand ischemia: Plan: -cardiology was consulted, appreciate recs Plan I spent a total of 35 minutes in direct patient care, including [id number] time with the patient and/or family, reviewing medical records, ordering and reviewing diagnostic tests, and coordinating care with other healthcare providers. This time includes: history taking, physical examination, medical decision making, counseling, ECG interpretation, imaging interpretation, lab interpretation, orders, and education, excluding time spent in the performance of separately billed services. Admission and Anticipated Discharge Date Admission Date: September 24, 2024 Subjective Patient seen at bedside. Patient comfortable this morning. Review of Systems Review of Systems: CONSTITUTIONAL: Patient denies fevers, chills, sweats and weight changes. EYES: Patient denies any visual symptoms. EARS, NOSE, AND THROAT: No difficulties with hearing. No symptoms of rhinitis or sore throat. CARDIOVASCULAR: Patient denies chest pains, palpitations, orthopnea and paroxysmal nocturnal dyspnea. RESPIRATORY: No dyspnea on exertion, no wheezing or cough. GI: No nausea, vomiting, diarrhea, constipation, abdominal pain, hematochezia or melena. : No urinary hesitancy or dribbling. No nocturia or urinary frequency. No abnormal urethral discharge. MUSCULOSKELETAL: No myalgias or arthralgias. NEUROLOGIC: No chronic headaches, no seizures. Patient denies numbness, tingling or weakness. PSYCHIATRIC: Patient denies problems with mood disturbance. No problems with anxiety. ENDOCRINE: No excessive urination or excessive thirst. DERMATOLOGIC: Patient denies any rashes or skin changes. Physical Exam Physical Exam: Gen: A&O 3 NAD, cachexia and sarcopenia noted HEENT: NCAT, EOMI, not icteric. External ears normal. No rhinorrhea. Moist mucous membranes. Neck: Supple, full range of motion, no observable masses, No meningeal sign. Lungs: very poor air movement bilaterally CV: RRR, no edema. Abdomen: Soft, nondistended, No rebound tenderness. MSK: No joint swelling, no redness. Skin: No rashes, petechiae, lesions. Normal color per patient. Neuro: Normal Gait, Grossly intact. Psych: Appropriate for situation. Results & Data Results & Data Vital Signs (Past 12 Hours) Vital Signs Temp Pulse Resp BP Pulse Ox O2 Del Method 10/14/24 07:32 Room Air 10/14/24 07:19 36.3 C L 62 16 119/77 97 Room Air (8) Acute and chronic respiratory failure Respiratory failure complication: hypoxia and hypercapnia Qualified Code(s): J96.21 - Acute and chronic respiratory failure with hypoxia; J96.22 - Acute and chronic respiratory failure with hypercapnia
[2024-10-14] MEDS: ONDANSETRON 4 MG OD TAB PO PRN (17:41)
[2024-10-15] MEDS: MoRPHine SULFATE 10 MG/0.5 ML UDP PO PRN (08:46)
--- NOTE | 2024-10-15 12:31 | Hospitalist Progress Note ---
Date of Service October 15, 2024 Assessment & Plan (1) Comfort measures only status: Plan: -patient has many frequent admissions, severe COPD, poor compliance with therapies at home -sarcopenia, cachexia, ECOG of 4 at this time -significant COPD, cardiac disease (ST elevations on ECG), poor compliance with therapies, very poor functional/nutritional status put overall prognosis likely on scale of weeks to months, likely on weeks side -patient would like to pursue comfort at this time Plan: -working with daughter on hospice at home, patient should be able to tolerate occasional unsupervised time a few days a week for a few hours, will generally need someone around to help if needed otherwise 03/11 -tentative discharge home with hospice on Thursday10/17/2024 -if unable to accommodate will need placement with hospice (2) Septic shock: Plan: -resolved (3) Hypovolemic shock: Plan: -resolved (4) Acute metabolic encephalopathy: Plan: -resolved (5) Atrial fibrillation with RVR: Plan: -continues to be in afib, rate controlled (6) Acute blood loss anemia: Plan: -improved (7) Hypoglycemia associated with diabetes: Plan: -likely in setting of poor PO intake (8) Acute and chronic respiratory failure: Plan: -very poor air movement on exam (9) Urinary tract infection: Plan: -resolved (10) Shock liver: Plan: -improved -likely in setting fo profound hypoxia, sepsis (11) Acute renal failure: Plan: -unclear status (12) Myocardial infarction due to demand ischemia: Plan: -cardiology was consulted, appreciate recs Plan I spent a total of 35 minutes in direct patient care, including [id number] time with the patient and/or family, reviewing medical records, ordering and reviewing diagnostic tests, and coordinating care with other healthcare providers. This time includes: history taking, physical examination, medical decision making, counseling, ECG interpretation, imaging interpretation, lab interpretation, orders, and education, excluding time spent in the performance of separately billed services. Admission and Anticipated Discharge Date Admission Date: September 24, 2024 Subjective Patient seen at bedside. patient comfortable today. Had some nausea yesterday, treated with zofran successfully. Review of Systems Review of Systems: CONSTITUTIONAL: Patient denies fevers, chills, sweats and weight changes. EYES: Patient denies any visual symptoms. EARS, NOSE, AND THROAT: No difficulties with hearing. No symptoms of rhinitis or sore throat. CARDIOVASCULAR: Patient denies chest pains, palpitations, orthopnea and paroxysmal nocturnal dyspnea. RESPIRATORY: No dyspnea on exertion, no wheezing or cough. GI: No nausea, vomiting, diarrhea, constipation, abdominal pain, hematochezia or melena. : No urinary hesitancy or dribbling. No nocturia or urinary frequency. No abnormal urethral discharge. MUSCULOSKELETAL: No myalgias or arthralgias. NEUROLOGIC: No chronic headaches, no seizures. Patient denies numbness, tingling or weakness. PSYCHIATRIC: Patient denies problems with mood disturbance. No problems with anxiety. ENDOCRINE: No excessive urination or excessive thirst. DERMATOLOGIC: Patient denies any rashes or skin changes. Physical Exam Physical Exam: Gen: A&O 3 NAD, cachexia and sarcopenia noted HEENT: NCAT, EOMI, not icteric. External ears normal. No rhinorrhea. Moist mucous membranes. Neck: Supple, full range of motion, no observable masses, No meningeal sign. Lungs: very poor air movement bilaterally CV: RRR, no edema. Abdomen: Soft, nondistended, No rebound tenderness. MSK: No joint swelling, no redness. Skin: No rashes, petechiae, lesions. Normal color per patient. Neuro: Normal Gait, Grossly intact. Psych: Appropriate for situation. (8) Acute and chronic respiratory failure Respiratory failure complication: hypoxia and hypercapnia Qualified Code(s): J96.21 - Acute and chronic respiratory failure with hypoxia; J96.22 - Acute and chronic respiratory failure with hypercapnia
[2024-10-15] MEDS: LORazepam 1 MG TAB SL PRN (21:27)
--- NOTE | 2024-10-16 12:10 | Hospitalist Progress Note ---
Date of Service October 16, 2024 Assessment & Plan (1) Comfort measures only status: Plan: -patient has many frequent admissions, severe COPD, poor compliance with therapies at home -sarcopenia, cachexia, ECOG of 4 at this time -significant COPD, cardiac disease (ST elevations on ECG), poor compliance with therapies, very poor functional/nutritional status put overall prognosis likely on scale of weeks to months, likely on weeks side -patient would like to pursue comfort at this time Plan: -working with daughter on hospice at home, patient should be able to tolerate occasional unsupervised time a few days a week for a few hours, will generally need someone around to help if needed otherwise 03/11 -tentative discharge home with hospice on Thursday10/17/2024 -if unable to accommodate will need placement with hospice (2) Septic shock: Plan: -resolved (3) Hypovolemic shock: Plan: -resolved (4) Acute metabolic encephalopathy: Plan: -resolved (5) Atrial fibrillation with RVR: Plan: -continues to be in afib, rate controlled (6) Acute blood loss anemia: Plan: -improved (7) Hypoglycemia associated with diabetes: Plan: -likely in setting of poor PO intake (8) Acute and chronic respiratory failure: Plan: -very poor air movement on exam (9) Urinary tract infection: Plan: -resolved (10) Shock liver: Plan: -improved -likely in setting fo profound hypoxia, sepsis (11) Acute renal failure: Plan: -unclear status (12) Myocardial infarction due to demand ischemia: Plan: -cardiology was consulted, appreciate recs Plan I spent a total of 35 minutes in direct patient care, including [id number] time with the patient and/or family, reviewing medical records, ordering and reviewing diagnostic tests, and coordinating care with other healthcare providers. This time includes: history taking, physical examination, medical decision making, counseling, ECG interpretation, imaging interpretation, lab interpretation, orders, and education, excluding time spent in the performance of separately billed services. Admission and Anticipated Discharge Date Admission Date: September 24, 2024 Subjective Patient seen at bedside. Comfortable at this time. Review of Systems Review of Systems: CONSTITUTIONAL: Patient denies fevers, chills, sweats and weight changes. EYES: Patient denies any visual symptoms. EARS, NOSE, AND THROAT: No difficulties with hearing. No symptoms of rhinitis or sore throat. CARDIOVASCULAR: Patient denies chest pains, palpitations, orthopnea and paroxysmal nocturnal dyspnea. RESPIRATORY: No dyspnea on exertion, no wheezing or cough. GI: No nausea, vomiting, diarrhea, constipation, abdominal pain, hematochezia or melena. : No urinary hesitancy or dribbling. No nocturia or urinary frequency. No abnormal urethral discharge. MUSCULOSKELETAL: No myalgias or arthralgias. NEUROLOGIC: No chronic headaches, no seizures. Patient denies numbness, tingling or weakness. PSYCHIATRIC: Patient denies problems with mood disturbance. No problems with anxiety. ENDOCRINE: No excessive urination or excessive thirst. DERMATOLOGIC: Patient denies any rashes or skin changes. Physical Exam Physical Exam: Gen: A&O 3 NAD, cachexia and sarcopenia noted HEENT: NCAT, EOMI, not icteric. External ears normal. No rhinorrhea. Moist mucous membranes. Neck: Supple, full range of motion, no observable masses, No meningeal sign. Lungs: very poor air movement bilaterally CV: RRR, no edema. Abdomen: Soft, nondistended, No rebound tenderness. MSK: No joint swelling, no redness. Skin: No rashes, petechiae, lesions. Normal color per patient. Neuro: Normal Gait, Grossly intact. Psych: Appropriate for situation. Results & Data Results & Data Vital Signs (Past 12 Hours) Vital Signs Pulse BP 10/16/24 08:50 88 149/87 H (8) Acute and chronic respiratory failure Respiratory failure complication: hypoxia and hypercapnia Qualified Code(s): J96.21 - Acute and chronic respiratory failure with hypoxia; J96.22 - Acute and chronic respiratory failure with hypercapnia
[2024-10-17] MEDS: MICONAZOLE NITRATE POWDER 85 GM EXT PRN (05:44)
--- NOTE | 2024-10-17 11:56 | Hospitalist Progress Note ---
Date of Service October 17, 2024 Assessment & Plan (1) Comfort measures only status: Plan: -patient has many frequent admissions, severe COPD, poor compliance with therapies at home -sarcopenia, cachexia, ECOG of 4 at this time -significant COPD, cardiac disease (ST elevations on ECG), poor compliance with therapies, very poor functional/nutritional status put overall prognosis likely on scale of weeks to months, likely on weeks side -patient would like to pursue comfort at this time Plan: -working with daughter on hospice at home, patient should be able to tolerate occasional unsupervised time a few days a week for a few hours, will generally need someone around to help if needed otherwise 03/11 -tentative discharge home on Thursday on 10/19/2024 once hospice at home set up -if unable to accommodate will need placement with hospice (2) Septic shock: Plan: -resolved (3) Hypovolemic shock: Plan: -resolved (4) Acute metabolic encephalopathy: Plan: -resolved (5) Atrial fibrillation with RVR: Plan: -continues to be in afib, rate controlled (6) Acute blood loss anemia: Plan: -improved (7) Hypoglycemia associated with diabetes: Plan: -likely in setting of poor PO intake (8) Acute and chronic respiratory failure: Plan: -very poor air movement on exam (9) Urinary tract infection: Plan: -resolved (10) Shock liver: Plan: -improved -likely in setting fo profound hypoxia, sepsis (11) Acute renal failure: Plan: -unclear status (12) Myocardial infarction due to demand ischemia: Plan: -cardiology was consulted, appreciate recs Plan I spent a total of 35 minutes in direct patient care, including [id number] time with the patient and/or family, reviewing medical records, ordering and reviewing diagnostic tests, and coordinating care with other healthcare providers. This time includes: history taking, physical examination, medical decision making, counseling, ECG interpretation, imaging interpretation, lab interpretation, orders, and education, excluding time spent in the performance of separately billed services. Admission and Anticipated Discharge Date Admission Date: September 24, 2024 Subjective Patient seen doing well today, appears comfortable. Review of Systems Review of Systems: CONSTITUTIONAL: Patient denies fevers, chills, sweats and weight changes. EYES: Patient denies any visual symptoms. EARS, NOSE, AND THROAT: No difficulties with hearing. No symptoms of rhinitis or sore throat. CARDIOVASCULAR: Patient denies chest pains, palpitations, orthopnea and paroxysmal nocturnal dyspnea. RESPIRATORY: No dyspnea on exertion, no wheezing or cough. GI: No nausea, vomiting, diarrhea, constipation, abdominal pain, hematochezia or melena. : No urinary hesitancy or dribbling. No nocturia or urinary frequency. No abnormal urethral discharge. MUSCULOSKELETAL: No myalgias or arthralgias. NEUROLOGIC: No chronic headaches, no seizures. Patient denies numbness, tingling or weakness. PSYCHIATRIC: Patient denies problems with mood disturbance. No problems with anxiety. ENDOCRINE: No excessive urination or excessive thirst. DERMATOLOGIC: Patient denies any rashes or skin changes. Physical Exam Physical Exam: Gen: A&O 3 NAD, cachexia and sarcopenia noted HEENT: NCAT, EOMI, not icteric. External ears normal. No rhinorrhea. Moist mucous membranes. Neck: Supple, full range of motion, no observable masses, No meningeal sign. Lungs: very poor air movement bilaterally CV: RRR, no edema. Abdomen: Soft, nondistended, No rebound tenderness. MSK: No joint swelling, no redness. Skin: No rashes, petechiae, lesions. Normal color per patient. Neuro: Normal Gait, Grossly intact. Psych: Appropriate for situation. Results & Data Results & Data Vital Signs (Past 12 Hours) Vital Signs Pulse Resp BP Pulse Ox O2 Del Method 10/17/24 09:55 85 16 148/92 H 97 Room Air (8) Acute and chronic respiratory failure Respiratory failure complication: hypoxia and hypercapnia Qualified Code(s): J96.21 - Acute and chronic respiratory failure with hypoxia; J96.22 - Acute and chronic respiratory failure with hypercapnia
[2024-10-17 20:33] VITALS: TEMP 97.5; O2SAT 99
--- NOTE | 2024-10-18 14:42 | Hospitalist Progress Note ---
Date of Service October 18, 2024 Assessment & Plan (1) Comfort measures only status: Plan: -patient has many frequent admissions, severe COPD, poor compliance with therapies at home -sarcopenia, cachexia, ECOG of 4 at this time -significant COPD, cardiac disease (ST elevations on ECG), poor compliance with therapies, very poor functional/nutritional status put overall prognosis likely on scale of weeks to months, likely on weeks side -patient would like to pursue comfort at this time Plan: -working with daughter on hospice at home, patient should be able to tolerate occasional unsupervised time a few days a week for a few hours, will generally need someone around to help if needed otherwise 03/11 -tentative discharge home on Thursday on 10/19/2024 once hospice at home set up -if unable to accommodate will need placement with hospice (2) Septic shock: Plan: -resolved (3) Hypovolemic shock: Plan: -resolved (4) Acute metabolic encephalopathy: Plan: -resolved (5) Atrial fibrillation with RVR: Plan: -continues to be in afib, rate controlled (6) Acute blood loss anemia: Plan: -improved (7) Hypoglycemia associated with diabetes: Plan: -likely in setting of poor PO intake (8) Acute and chronic respiratory failure: Plan: -very poor air movement on exam (9) Urinary tract infection: Plan: -resolved (10) Shock liver: Plan: -improved -likely in setting fo profound hypoxia, sepsis (11) Acute renal failure: Plan: -unclear status (12) Myocardial infarction due to demand ischemia: Plan: -cardiology was consulted, appreciate recs Plan I spent a total of 35 minutes in direct patient care, including [id number] time with the patient and/or family, reviewing medical records, ordering and reviewing diagnostic tests, and coordinating care with other healthcare providers. This time includes: history taking, physical examination, medical decision making, counseling, ECG interpretation, imaging interpretation, lab interpretation, orders, and education, excluding time spent in the performance of separately billed services. Admission and Anticipated Discharge Date Admission Date: September 24, 2024 Subjective Patient seen at bedside. Comfortable at this time. Review of Systems Review of Systems: CONSTITUTIONAL: Patient denies fevers, chills, sweats and weight changes. EYES: Patient denies any visual symptoms. EARS, NOSE, AND THROAT: No difficulties with hearing. No symptoms of rhinitis or sore throat. CARDIOVASCULAR: Patient denies chest pains, palpitations, orthopnea and paroxysmal nocturnal dyspnea. RESPIRATORY: No dyspnea on exertion, no wheezing or cough. GI: No nausea, vomiting, diarrhea, constipation, abdominal pain, hematochezia or melena. : No urinary hesitancy or dribbling. No nocturia or urinary frequency. No abnormal urethral discharge. MUSCULOSKELETAL: No myalgias or arthralgias. NEUROLOGIC: No chronic headaches, no seizures. Patient denies numbness, tingling or weakness. PSYCHIATRIC: Patient denies problems with mood disturbance. No problems with anxiety. ENDOCRINE: No excessive urination or excessive thirst. DERMATOLOGIC: Patient denies any rashes or skin changes. Physical Exam Physical Exam: Gen: A&O 3 NAD, cachexia and sarcopenia noted HEENT: NCAT, EOMI, not icteric. External ears normal. No rhinorrhea. Moist mucous membranes. Neck: Supple, full range of motion, no observable masses, No meningeal sign. Lungs: very poor air movement bilaterally CV: RRR, no edema. Abdomen: Soft, nondistended, No rebound tenderness. MSK: No joint swelling, no redness. Skin: No rashes, petechiae, lesions. Neuro: Normal Gait, Grossly intact. Psych: Appropriate for situation. Results & Data Results & Data Vital Signs (Past 12 Hours) Vital Signs Pulse BP 10/18/24 09:10 91 H 149/82 H Medications Administered Heparin Sodium (Beef Lung) (Heparin 10 Unit/Ml 5 Ml Flush) 5 ml FLUSH PRN PRN PRN Reason: Flush Stop: 10/25/24 03:59 Last Admin: 10/06/24 08:10 Dose: 15 ml Documented By: Admin: 10/04/24 09:06 Dose: 15 ml Documented By: QASIM Levothyroxine Sodium (Levothyroxine Sodium 25 Mcg Tablet) 25 mcg PO DAILY GELACIO Stop: 11/10/24 08:59 Last Admin: 10/18/24 09:14 Dose: 25 mcg Documented By: Admin: 10/17/24 10:00 Dose: 25 mcg Documented By: Admin: 10/16/24 08:56 Dose: 25 mcg Documented By: Admin: 10/15/24 08:46 Dose: 25 mcg Documented By: Admin: 10/14/24 08:52 Dose: 25 mcg Documented By: Admin: 10/13/24 08:22 Dose: 25 mcg Documented By: Admin: 10/12/24 09:01 Dose: 25 mcg Documented By: Admin: 10/11/24 08:12 Dose: 25 mcg Documented By: PARIS Lorazepam (Lorazepam 1 Mg Tab) 1 mg SL Q4H PRN PRN Reason: discomfort, restless Stop: 11/02/24 10:22 Last Admin: 10/17/24 21:24 Dose: 1 mg Documented By: Admin: 10/16/24 20:01 Dose: 1 mg Documented By: Admin: 10/15/24 21:27 Dose: 1 mg Documented By: SANG Metoprolol Succinate (Metoprolol Succ 50mg Ext Rel Tab) 50 mg PO BID GELACIO Stop: 11/09/24 20:59 Last Admin: 10/18/24 09:14 Dose: 50 mg Documented By: Admin: 10/17/24 20:33 Dose: 50 mg Documented By: Admin: 10/17/24 10:00 Dose: 50 mg Documented By: Admin: 10/16/24 20:01 Dose: 50 mg Documented By: Admin: 10/16/24 08:57 Dose: 50 mg Documented By: Admin: 10/15/24 21:26 Dose: 50 mg Documented By: Admin: 10/15/24 08:46 Dose: 50 mg Documented By: Admin: 10/14/24 20:55 Dose: 50 mg Documented By: Admin: 10/14/24 08:51 Dose: 50 mg Documented By: Admin: 10/13/24 21:36 Dose: 50 mg Documented By: Admin: 10/13/24 08:22 Dose: 50 mg Documented By: Admin: 10/12/24 20:25 Dose: 50 mg Documented By: Admin: 10/12/24 08:57 Dose: 50 mg Documented By: Admin: 10/11/24 20:14 Dose: 50 mg Documented By: Admin: 10/11/24 08:12 Dose: 50 mg Documented By: Admin: 10/10/24 21:47 Dose: 50 mg Documented By: CHRISTY Miconazole Nitrate (Miconazole Nitrate Powder 85 Gm) 1 appln EXT PRN PRN PRN Reason: Affected Skin Folds Stop: 11/15/24 22:01 Last Admin: 10/17/24 05:44 Dose: 1 appln Documented By: SANG Morphine Sulfate (Morphine Sulfate 10 Mg/0.5 Ml Udp) 5 mg PO Q3HWA PRN PRN Reason: Pain or breathlessness Stop: 10/27/24 14:51 Last Admin: 10/17/24 12:52 Dose: 5 mg Documented By: Admin: 10/15/24 08:46 Dose: 5 mg Documented By: JESU Ondansetron HCl (Ondansetron 4 Mg Od Tab) 4 mg PO Q6H PRN PRN Reason: Nausea Stop: 11/13/24 17:23 Last Admin: 10/14/24 17:41 Dose: 4 mg Documented By: ONEIL Pantoprazole Sodium (Pantoprazole 40 Mg Tab) 40 mg PO DAILY GELACIO Stop: 11/10/24 08:59 Last Admin: 10/18/24 09:14 Dose: 40 mg Documented By: Admin: 10/17/24 10:00 Dose: 40 mg Documented By: EDAlaina Admin: 10/16/24 08:57 Dose: 40 mg Documented By: EDAlaina Admin: 10/15/24 08:46 Dose: 40 mg Documented By: Admin: 10/14/24 08:52 Dose: 40 mg Documented By: Admin: 10/13/24 08:22 Dose: 40 mg Documented By: Admin: 10/12/24 09:01 Dose: 40 mg Documented By: Admin: 10/11/24 08:12 Dose: 40 mg Documented By: [facility] (8) Acute and chronic respiratory failure Respiratory failure complication: hypoxia and hypercapnia Qualified Code(s): J96.21 - Acute and chronic respiratory failure with hypoxia; J96.22 - Acute and chronic respiratory failure with hypercapnia
[2024-10-18 21:03] VITALS: BP 119/89; PULSE 114
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
== END 2024-10-19 10:33 | disposition hospice, home (50) | DRG 871 ==
LOC: ED 18:32 → SUATTDRO 21:47 → 1E 21:47 → 2S 09-28 06:19 → 3E 09-29 16:29

== ENCOUNTER 2024-10-24 00:33 | Inpatient (IN) ==
[2024-10-24 00:59] LABS: Hematocrit (blood only) 37.2 % (37.0-47.0); Hemoglobin 12.1 g/dl (12.0-16.0); Immature Granulocytes # (auto) 0.04 K/uL (0.01-0.20); Immature Granulocytes % (auto) 0.4 %; Mean Corpuscular Hemoglobin 29.5 pg (25.0-34.0); Mean Corpuscular Volume 90.7 fL (80.0-100.0); Platelet Count 294 K/uL (130-400); RDW Standard Deviation 61.8 fL (36.4-46.3); Red Blood Count 4.10 M/uL (4.20-5.40); White Blood Count 10.21 K/ul (4.8-10.8)
[2024-10-24] MEDS ORDERED: VANCOMYCIN CONSULT ACTIVE PRN (01:09)
[2024-10-24] MEDS ORDERED: VANCOMYCIN HCL 750 MG in SODIUM CHLORIDE 0.9% 500 ML IV ONE (01:09)
[2024-10-24] MEDS: PIPERACILLIN/TAZOBACTAM 4.5 GM/100 ML BAG IV ONE (01:10)
--- NOTE | 2024-10-24 01:10 | Emergency Department Note ---
History of Present Illness General Chief complaint: Cardiac Assessment Stated complaint: CHEST PAIN, ABD PAIN Time Seen by Provider: 10/24/24 00:42 History of Present Illness Maximum Pain Intensity: 3 74-year-old female with past medical history significant for chronic respiratory failure with hypoxia on 3 L oxygen, COPD, chronic nonspecific lung disease, hyperlipidemia, hypothyroidism, hypertension, history of CAD status post RCA stent, hematuria, generalized osteoarthritis, osteoporosis, migraines, general anxiety disorder, tobacco use disorder, history of atrial fibrillation who was recently discharged from the hospital for severe sepsis presents back to the ER for chest pain, abdominal pain and generalized weakness. The daughter is present and states she wants everything done. The patient came in and A-fib with RVR was given Cardizem 10 mg in the field. Patient mainly complains of abdominal pain and the Helms is draining cloudy urine. Patient denies cough, congestion, vomiting, diarrhea. Home Medications Medication Instructions Recorded Confirmed Type levothyroxine 25 mcg tablet 25 mcg PO DAILY 09/24/24 10/24/24 History metoprolol succinate 50 mg 50 mg PO BID 09/24/24 10/24/24 History tablet,extended release 24 hr nitroglycerin 0.4 mg sublingual 0.4 mg sublingual UD 09/24/24 10/24/24 History tablet pantoprazole 40 mg tablet,delayed 40 mg PO DAILY 09/24/24 10/24/24 History release (Protonix) ipratropium 0.5 mg-albuterol 3 mg 3 ml NEB Q4H PRN shortness of 10/19/24 10/24/24 Rx (2.5 mg base)/3 mL nebulization breath or wheezing #90 mL soln miconazole nitrate 2 % topical 1 applic EXT PRN PRN rash #85 grams 10/19/24 10/24/24 Rx powder (Desenex) ondansetron 4 mg disintegrating 4 mg PO Q6H PRN nausea and 10/19/24 10/24/24 Rx tablet vomiting #10 tabs lorazepam 1 mg tablet (Ativan) 1 mg PO Q6H PRN anxiety #10 tabs 10/20/24 10/24/24 Rx morphine 20 mg/5 mL (4 mg/mL) oral 5 mg (1.25 mL) PO Q2H PRN 10/20/24 10/24/24 Rx solution dyspnea/discomfort/pain #100 mL Allergies Allergy/AdvReac Type Severity Reaction Status Date / Time bee venom protein (honey bee) Allergy Severe SWELLING Verified 10/24/24 00:56 SEVERE doxycycline Allergy Intermediate Vomiting Verified 10/24/24 00:56 Past Med/Surg History Problem List (Updated 10/24/24 @ 03:01 by Anna Durán PA-C) Elevated troponin (Acute) Acute UTI (Acute) Dehydration (Acute) Hypomagnesemia (Acute) Atrial fibrillation with rapid ventricular response (Acute) Hypokalemia (Acute) Comfort measures only status Need for comfort care COPD with emphysema Neglected elder Failure to thrive in adult Palliative care by specialist Dyspnea and respiratory abnormalities Weakness generalized Altered mental status Acute metabolic encephalopathy Elevated LFTs Metabolic encephalopathy Hypoglycemia associated with diabetes Acidosis (Acute) Respiratory failure (Acute) Anemia (Acute) Acute MT (Acute) Acute UTI (Acute) Hypoglycemia (Acute) Hypotension (Acute) Sepsis (Acute) Shock liver Acute blood loss anemia Hypovolemic shock Septic shock Rectal bleeding Acute and chronic respiratory failure Severe sepsis Hyperkalemia Acute renal failure LVH (left ventricular hypertrophy) due to hypertensive disease CAD (coronary artery disease), hamilton coronary artery Abnormal EKG Hypothyroidism Hydronephrosis Sepsis (Acute) Atrial fibrillation with RVR (Acute) Anticoagulant long-term use (Acute) Medical History Depression GERD (gastroesophageal reflux disease) COPD with exacerbation Dyslipidemia, goal LDL below 70 Chronic hypoxic respiratory failure 3L NC chronic CAD (coronary artery disease) 2022 - STEMI w/ RCA interventions Anemia COPD (chronic obstructive pulmonary disease) PAF (paroxysmal atrial fibrillation) HTN (hypertension) Myocardial infarction due to demand ischemia Non-ST elevation MT (NSTEMI) Macular degeneration Tobacco use disorder Atrial fibrillation Diabetes Surgical History S/P ORIF (open reduction internal fixation) fracture H/O skin graft History of tonsillectomy H/O heart surgery History of cholecystectomy Hx of tubal ligation Social History Smoking Status: Former smoker Tobacco Type: Cigarettes Cigarettes Per Day: 5; Second Hand Exposure: No; Do You Dip or Chew Tobacco: No; Hx Alcohol Use: No Hx Substance Use: No Preferred Language: Mongolian Communication Ability: Impaired Auto Body 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 Required: No Beliefs That Will Affect Care: Catholic Current Living Situation: Family Current Living Situation Comment: with daughter Feels Safe at Home: Yes Assistive Devices: Walker and Wheelchair Review of Systems A total of 10 systems reviewed and were otherwise negative Physical Exam Vital Signs Vital Signs - 24 hr 10/24/24 00:39 10/24/24 00:39 10/24/24 00:45 Temperature 37.2 C Temperature Source Rectal Pulse Rate 117 H 118 H Pulse Rate from SpO2 Sensor Pulse Rhythm Irregular Pulse Strength Normal Respiratory Rate 24 Respiratory Effort / Characteristics Non-Labored Spontaneous Non-Labored Spontaneous Respiratory Depth Normal Normal Respiratory Pattern Regular Blood Pressure 131/82 Blood Pressure Mean 98 Blood Pressure Position Lying Pulse Oximetry 85 L Oxygen Delivery Method Room Air Room Air Oxygen Flow Rate Sepsis Recent Fever Within 48 Hours Yes Sepsis New/Unexplained Change in Mental Status N/A Sepsis Action Taken by Nursing Physician Notified 10/24/24 00:48 10/24/24 00:48 10/24/24 01:00 Temperature Temperature Source Pulse Rate 97 H Pulse Rate from SpO2 Sensor 94 H Pulse Rhythm Pulse Strength Respiratory Rate 29 H Respiratory Effort / Characteristics Respiratory Depth Respiratory Pattern Blood Pressure 159/103 H Blood Pressure Mean 121 Blood Pressure Position Pulse Oximetry 99 99 100 Oxygen Delivery Method Nasal Cannula Nasal Cannula Nasal Cannula Oxygen Flow Rate 1 1 2 Sepsis Recent Fever Within 48 Hours Sepsis New/Unexplained Change in Mental Status Sepsis Action Taken by Nursing 10/24/24 01:30 10/24/24 02:30 10/24/24 02:39 Temperature Temperature Source Pulse Rate 94 H 127 H Pulse Rate from SpO2 Sensor 102 H Pulse Rhythm Pulse Strength Respiratory Rate 22 24 Respiratory Effort / Characteristics Respiratory Depth Respiratory Pattern Blood Pressure 151/125 H 111/88 Blood Pressure Mean 133 105 Blood Pressure Position Pulse Oximetry 96 Oxygen Delivery Method Nasal Cannula Oxygen Flow Rate 2 Sepsis Recent Fever Within 48 Hours Sepsis New/Unexplained Change in Mental Status Sepsis Action Taken by Nursing 10/24/24 02:51 10/24/24 03:00 10/24/24 03:02 Temperature Temperature Source Pulse Rate 130 H 107 H Pulse Rate from SpO2 Sensor Pulse Rhythm Pulse Strength Respiratory Rate 18 Respiratory Effort / Characteristics Respiratory Depth Respiratory Pattern Blood Pressure Blood Pressure Mean Blood Pressure Position Pulse Oximetry 99 Oxygen Delivery Method Nasal Cannula Oxygen Flow Rate 2 Sepsis Recent Fever Within 48 Hours Sepsis New/Unexplained Change in Mental Status Sepsis Action Taken by Nursing VITALS: Vitals are noted on the nurse's note and reviewed by myself. Vital signs reviewed GENERAL: Elderly female dehydrated appearing following commands and answering questions, in no acute distress SKIN: Stage II pressure ulcer to the sacrum, the rest of the skin was without rashes, erythema, edema, or bruising. There is no tenting of the skin. Capillary reflex less than 2 seconds. HEAD: Normocephalic atraumatic. EARS: External auditory canals clear EYES: Pupils equal round and reactive to light and accommodation. Conjunctivae without injection, sclerae without icterus. Extraocular movements intact. NOSE: Patent, no discharge. MOUTH: Mucous membranes moist. Pharynx without erythema or exudate. Uvula midline. Airway patent. Tongue does not deviate. NECK: Supple without nuchal rigidity. No lymphadenopathy. No thyromegaly. Cervical spine is nontender. No JVD. HEART: Regular rate and rhythm LUNGS: Clear to auscultation bilaterally without wheezes, rales or rhonchi. No retractions or accessory muscle use. ABDOMEN: Positive bowel sounds x 4. Normal tympanic percussion. Soft, tender to palpation mid abdomen, without masses or organomegaly. Berrios sign negative. No guarding or rebound tenderness. No CVA tenderness MUSCULOSKELETAL: No muscle atrophy, erythema, or edema noted. NEURO: Patient was alert and oriented to person place. Normal sensation to light and sharp touch. No focal neurological deficits. Course Administered Medications Potassium Chloride (K Miguelangel / Wtr) 10 meq in 100 mls @ 100 mls/hr IV Q1H [facility] Stop: 10/24/24 05:44 Last Admin: 10/24/24 03:19 Dose: 100 mls/hr Documented By: Infusion: 10/24/24 03:18 Dose: Infused Documented By: Admin: 10/24/24 02:13 Dose: 100 mls/hr Documented By: KAMLESH Discontinued Medications Sodium Chloride (Nss) 1,000 mls @ 999 mls/hr IV .Q1H1M GELACIO Stop: 10/24/24 02:00 Last Infusion: 10/24/24 01:58 Dose: Infused Documented By: Admin: 10/24/24 01:11 Dose: 999 mls/hr Documented By: KAMLESH Piperacillin Sod/Tazobactam Sod (Zosyn) 4.5 gm in 100 mls @ 200 mls/hr IV NOW ONE; Protocol Stop: 10/24/24 01:19 Last Infusion: 10/24/24 01:58 Dose: Infused Documented By: Admin: 10/24/24 01:10 Dose: 200 mls/hr Documented By: KAMLESH Magnesium Sulfate/Dextrose (Magnesium Sulfate / D5w) 1 gm in 100 mls @ 200 mls/hr IV Q30M GELACIO Stop: 10/24/24 02:38 Last Infusion: 10/24/24 03:18 Dose: Infused Documented By: Admin: 10/24/24 02:47 Dose: 200 mls/hr Documented By: Infusion: 10/24/24 02:47 Dose: Infused Documented By: Admin: 10/24/24 02:11 Dose: 200 mls/hr Documented By: KAMLESH Ioversol (Optiray 320 125ml) 125 ml IV ONCE ONE Stop: 10/24/24 02:08 Last Admin: 10/24/24 02:08 Dose: 118 ml Documented By: CASEY Potassium Chloride (Potassium Chloride 20 Meq/15 Ml Udc) 40 meq PO NOW STA Stop: 10/24/24 01:39 Last Admin: 10/24/24 01:50 Dose: 40 meq Documented By: KAMLESH Medical Decision Making Medical Records Attestation: I reviewed the patient's medical records. Home Medications Current Medication List: was personally reviewed by me Laboratory Data Attestation: I reviewed the patient's lab results. 10/24/24 00:36 10/24/24 00:48 Lab Results 10/24/24 10/24/24 10/24/24 Range/Units 00:36 00:45 00:48 WBC 10.21 (4.8-10.8) K/ul RBC 4.10 L (4.20-5.40) M/uL Hgb 12.1 (12.0-16.0) g/dl Hct 37.2 (37.0-47.0) % MCV 90.7 (80.0-100.0) fL MCH 29.5 (25.0-34.0) pg MCHC 32.5 (32.0-36.0) g/dL RDW Std Deviation 61.8 H (36.4-46.3) fL RDW Coeff of Chet 18.6 H (11.5-14.5) % Plt Count 294 (130-400) K/uL MPV 8.4 L (9.4-12.4) fL Immature Gran % (Auto) 0.4 % Neut % (Auto) 71.8 % Lymph % (Auto) 17.3 % Bibb % (Auto) 8.9 % Eos % (Auto) 1.3 % Baso % (Auto) 0.3 % Neut # (Auto) 7.33 H (1.40-6.50) K/uL Lymph # (Auto) 1.77 (1.20-3.40) K/uL Bibb # (Auto) 0.91 H (0.11-0.59) K/uL Eos # (Auto) 0.13 (0.00-0.50) K/uL Baso # (Auto) 0.03 (0.00-0.20) K/uL Immature Gran # (Auto) 0.04 (0.01-0.20) K/uL PT 11.8 (9.0-12.0) Seconds INR 1.1 (0.9-1.1) APTT 24 (21-31) Seconds PTT Ratio 0.9 VBG pH (7.36-7.41) VBG pCO2 (38-50) mmHg VBG pO2 mmHg VBG HCO3 mmol/L VBG O2 Saturation % VBG Base Excess mEq/L Sodium 137 (136-145) mmol/L Potassium 2.4 L* (3.5-5.1) mmol/L Chloride 87 L (98-107) mmol/L Carbon Dioxide 38 H (21-32) mmol/L Anion Gap 12 H (3-11) BUN 7 (6-23) mg/dl Creatinine 0.73 (0.6-1.2) mg/dl Est Cr Clr Drug Dosing 41.3 ml/min eGFR 85.71 BUN/Creatinine Ratio 9.6 L (10-20) Glucose 103 H (70-99(Fasting)) mg/dl Lactate (0.4-2.0) mmol/L Calcium 8.4 L (8.6-10.3) mg/dl Magnesium 1.5 L (1.7-2.4) mg/dl Total Bilirubin 1.0 (0.2-1.0) mg/dl Direct Bilirubin 0.4 H (0-0.2) mg/dl AST 21 (13-39) U/L ALT 13 (7-52) U/L Alkaline Phosphatase 106 H (34-104) U/L Troponin I High Sens 15.4 H (0-14) pg/ml Total Protein 6.6 (6.0-8.3) gm/dl Albumin 3.1 L (3.4-5.0) gm/dl Globulin 3.5 (2.5-4.0) gm/dl Albumin/Globulin Ratio 0.9 (0.9-2) Lipase 25 (11-82) U/L Procalcitonin 0.03 (0-0.5) ng/ml Urine Color Yellow Urine Appearance Cloudy A (Clear) Urine pH 6.5 (4.5-7.5) Ur Specific Reseda 1.004 (1.000-1.030) Urine Protein Negative (Negative) Urine Glucose (UA) Negative (Negative) Urine Ketones Negative (Negative) Urine Blood Trace H (Negative) Urine Nitrite Positive A (Negative) Urine Bilirubin Negative (Negative) Urine Urobilinogen Negative (Negative) Ur Leukocyte Esterase 3+ H (Negative) Urine WBC (Auto) >50 H (0-5) /hpf Urine RBC (Auto) >20 H (0-2) /hpf U Hyaline Cast (Auto) 3-5 H (0-2) /lpf U Epithel Cells (Auto) 0-2 (0-2) /hpf Urine Bacteria (Auto) 4+ H (None Seen) Calcium Oxalate Crystal Present A (None Prsent) Urine Yeast Present A (None Prsent) Urine Comment 10/24/24 Range/Units 01:02 WBC (4.8-10.8) K/ul RBC (4.20-5.40) M/uL Hgb (12.0-16.0) g/dl Hct (37.0-47.0) % MCV (80.0-100.0) fL MCH (25.0-34.0) pg MCHC (32.0-36.0) g/dL RDW Std Deviation (36.4-46.3) fL RDW Coeff of Chet (11.5-14.5) % Plt Count (130-400) K/uL MPV (9.4-12.4) fL Immature Gran % (Auto) % Neut % (Auto) % Lymph % (Auto) % Bibb % (Auto) % Eos % (Auto) % Baso % (Auto) % Neut # (Auto) (1.40-6.50) K/uL Lymph # (Auto) (1.20-3.40) K/uL Bibb # (Auto) (0.11-0.59) K/uL Eos # (Auto) (0.00-0.50) K/uL Baso # (Auto) (0.00-0.20) K/uL Immature Gran # (Auto) (0.01-0.20) K/uL PT (9.0-12.0) Seconds INR (0.9-1.1) APTT (21-31) Seconds PTT Ratio VBG pH 7.47 H (7.36-7.41) VBG pCO2 62 H (38-50) mmHg VBG pO2 31 mmHg VBG HCO3 45 mmol/L VBG O2 Saturation < 60.0 % VBG Base Excess 18.0 mEq/L Sodium (136-145) mmol/L Potassium (3.5-5.1) mmol/L Chloride (98-107) mmol/L Carbon Dioxide (21-32) mmol/L Anion Gap (3-11) BUN (6-23) mg/dl Creatinine (0.6-1.2) mg/dl Est Cr Clr Drug Dosing ml/min eGFR BUN/Creatinine Ratio (10-20) Glucose (70-99(Fasting)) mg/dl Lactate 1.7 (0.4-2.0) mmol/L Calcium (8.6-10.3) mg/dl Magnesium (1.7-2.4) mg/dl Total Bilirubin (0.2-1.0) mg/dl Direct Bilirubin (0-0.2) mg/dl AST (13-39) U/L ALT (7-52) U/L Alkaline Phosphatase (34-104) U/L Troponin I High Sens (0-14) pg/ml Total Protein (6.0-8.3) gm/dl Albumin (3.4-5.0) gm/dl Globulin (2.5-4.0) gm/dl Albumin/Globulin Ratio (0.9-2) Lipase (11-82) U/L Procalcitonin (0-0.5) ng/ml Urine Color Urine Appearance (Clear) Urine pH (4.5-7.5) Ur Specific Reseda (1.000-1.030) Urine Protein (Negative) Urine Glucose (UA) (Negative) Urine Ketones (Negative) Urine Blood (Negative) Urine Nitrite (Negative) Urine Bilirubin (Negative) Urine Urobilinogen (Negative) Ur Leukocyte Esterase (Negative) Urine WBC (Auto) (0-5) /hpf Urine RBC (Auto) (0-2) /hpf U Hyaline Cast (Auto) (0-2) /lpf U Epithel Cells (Auto) (0-2) /hpf Urine Bacteria (Auto) (None Seen) Calcium Oxalate Crystal (None Prsent) Urine Yeast (None Prsent) Urine Comment Imaging Data Attestation: I personally reviewed and interpreted this imaging study as follows: Radiologist's Impression: Chest X-Ray 10/24/24 00:48 EXAM: XR chest 1V portable CLINICAL HISTORY: Sepsis. TECHNIQUE: X-ray image of the chest is obtained in AP projection. COMPARISON: CR 09/24/2024 FINDINGS: Pulmonary Parenchyma: Hyperinflated both lungs with accentuated translucency, suggesting emphysema / COPD. Mild basal interstitial reticulations are noted, No evidence of consolidation, collapse, or focal opacities. No pulmonary nodules are identified. No evidence of pleural effusion or pleural thickening. Heart and Mediastinum: Heart size and shape are normal. Dilated aortic arch. No mediastinal widening or masses. No hilar or mediastinal lymphadenopathy. Bony Thorax: Bony thorax appears intact without fractures or deformities. Soft Tissues: Soft tissues overlying the chest wall are unremarkable. IMPRESSION: 1. No acute cardiopulmonary abnormalities are identified. 2. Hyperinflated both lungs with accentuated translucency, suggesting emphysema / COPD. (Unchanged). 3. The previously inserted NGT and ETT were removed. Electronically signed by Fred Cerda 10-24-2024 02:22 AM Abdomen/Pelvis CT 10/24/24 01:39 EXAM: CT abd pelvis IV con only CLINICAL HISTORY: lower abd pain TECHNIQUE: Contiguous axial images were obtained from the level of the diaphragm to the pubic symphysis with intravenous contrast. Coronal and sagittal reconstructions were likewise performed and indicated to increase the sensitivity for detecting clinically relevant pathology. If IV contrast material had not been administered, the likelihood of detecting abnormalities relevant to the patient's condition would have been substantially decreased. CT scan was performed according to ALARA (as low as reasonable achievable). COMPARISON: 03:29:23 RECYCLING ASSISTANT FINDINGS: Mild bilateral pleural effusion with basal subsegmental collapse of both lower lobes are seen Diffuse atherosclerotic calcification is noted involving aorta iliac arteries. 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 The liver is normal in size and attenuation. No focal liver lesions are seen. There is no intra or extrahepatic biliary ductal dilatation. Hepatic vasculature is patent. The gallbladder is absent. The spleen, pancreas, and adrenal glands are unremarkable. The kidneys are normal in size and attenuation. There is no hydronephrosis or perinephric fat stranding. DJ stent is seen in situ on right side. Few simple cortical cysts noted in right kidney. The ureters are normal in caliber and no ureteral calculi are seen. The bladder is normal in contour. Pelvic viscera are unremarkable. No focal or diffuse bowel wall thickening or evidence of bowel obstruction is identified. Abdominal and pelvic vasculature is patent. No adenopathy or fluid collections are seen. Severe degenerative changes involving visualized spine. Compression collapse with anterior wedging and sclerosis of [id number] body with about 20-25% reduction of vertebral body height. Hypodense oval shaped lesion in left S2 neural foramen. IMPRESSION: 1. Mild bilateral pleural effusion with basal subsegmental collapse of both lower lobes are seen - increased on either side and no interval development of right side. 2. Diffuse atherosclerotic calcification is noted involving aorta iliac arteries. -stable. 3. 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 4. Stable right renal cortical cyst. 5. Stable right side DJ stent. 6. Previously noted hyperdense material in rectum is not seen in current scan 7. Severe degenerative changes involving visualized spine. 8. Compression collapse with anterior wedging and sclerosis of [id number] body with about 20-25% reduction of vertebral body height.-stable. 9. Hypodense oval shaped lesion in left S2 neural foramen. Possibility of tarlov cyst. Advised further evaluation with MRI. Electronically signed by Mervin Stewart 10-24-2024 02:58 AM Chest CTA 10/24/24 01:39 EXAM: CT angio chest PE protocol CLINICAL HISTORY: PE TECHNIQUE: Contiguous axial images were obtained from the neck base through the upper abdomen following intravenous administration of iodinated contrast material. Angiographic images were processed, 3D MIP images were acquired for interpretation. If IV contrast material had not been administered, the likelihood of detecting abnormalities relevant to the patient's condition would have been substantially decreased. Coronal and sagittal 3-D MIPs were likewise performed and indicated to increase the sensitivity of detecting diffuse clinically relevant pathology. CT scan was performed according to ALARA (as low as reasonably achievable). COMPARISON: CTA, 07/08/2024 21:50:23 RECYCLING ASSISTANT FINDINGS: Adequate contrast bolus without evidence of pulmonary embolism. The central airways are patent. Panacinar emphysematous changes in bilateral lungs. A thin walled simple cyst of size [id number] in right lower lobe. Right minimal and left mild pleural effusion with adjacent basal atelectasis. The heart, aorta, and pulmonary arteries are of normal size and configuration. Diffuse atherosclerotic wall calcification of arch and thoracic aorta. No pericardial effusion is identified. The thyroid is unremarkable. No mediastinal, hilar, or axillary lymphadenopathy is noted. No suspicious lytic or sclerotic osseous lesions are identified. Degenerative changes in visualized spine. Anterior wedge compression of D11 vertebral body. IMPRESSION: 1. No evidence of pulmonary embolism- stable 2. Panacinar emphysematous changes in bilateral lungs-stable 3. A thin walled simple cyst of size [id number] in right lower lobe- stable 4. Right minimal and left mild pleural effusion with adjacent basal atelectasis. New finding. Electronically signed by Mervin Stewart 10-24-2024 02:55 AM MDM Narrative Prior records/ancillary studies reviewed and summarized above. Nursing notes reviewed. Additional history obtained from family. The patient's history was concerning for increasing weakness, abdominal pain and A-fib with RVR. Differential diagnosis: Etiologies such as metabolic, infection, hypo/hyperglycemia, electrolyte abnormalities, cardiac sources, intracerebral event, toxicologic, neurologic, as well as others were entertained. Physical examination: As above. ER treatment provided: IV Lock An order was placed for continuous cardiac monitoring. The monitor shows a rate of 60-1 50 with a A-fib rhythm per my interpretation. IV fluids, Zosyn and vancomycin were ordered Potassium and magnesium were replaced 2 IVs were placed On reassessment the patient felt better. Diagnostics interpretation by me: ECG: Ordered for chest pain EKG: Irregularly irregular with T wave inversions in the lateral leads and inferior leads, rate of 117. Impression A-fib with RVR with T wave inversions in the inferior and lateral leads independently interpreted by myself The labs Independently Interpreted by myself revealed hypokalemia this was replaced intravenously and orally. Low magnesium this was replaced Blood cultures pending Slightly elevated troponin. No worrisome leukocytosis. Negative lactic. Urine concerning for infection sent for culture. [facility] [address] [place] [address] / Director: Betty Caro M.D. Clinical Laboratory Report Name: JJ TORREZ Acct: [id number] Status: DIS IN : 1950 [facility] Date: 0 08/22/24 Age: 74 Sex: F Dis Date: 09/01/24 Loc: Medical/Surgical/Ortho [address] [place] [address]: [id number] Collected: 08/22/24123 Received: 08/22/24-[address]: Kane Zhu M.D. Source: Urine,Straight Cath OV Order: Ordered: Urine Culture Procedure Result Verified Site Urine Culture Final 08/25/241955 Organism 1 Citrobacter freundii complex Redgranite Count >100,000 CFU/ml Sens Sensitivities to Follow +Mix Urine Plus Low Counts of Other Mixed Margaret Organism 2 Pseudomonas aeruginosa Redgranite Count >100,000 CFU/ml Sens Sensitivities to Follow C freu cpx P aerugino RX M.I.C. RX M.I.C. --- --------- --- --------- Amikacin S <=16 S <=16 Aztreonam S 8 Cefepime S <=2 S 4 Cefotaxime S 8 Ceftazidime S 4 Ceftriaxone R 32 Ciprofloxacin S <=0.25 S <=0.25 Ertapenem S <=0.5 Gentamicin S <=2 Levofloxacin S <=0.5 S <=0.5 Meropenem S <=1 S <=1 Nitrofurantoin S <=32 Tobramycin S <=2 S <=2 Trimeth/Sulfa S <=0.5/9.5 Pip/Tazo S 16 S <=8 S = SENSITIVE I = INTERMEDIATE R = RESISTANT Imaging studies: Imaging was reviewed and read by radiology I did speak to the daughter, Cindy, who is the POA and states she wants everything done for her mother. I did explain to her that her discharge stated that she was [employer]. Daughter states she cannot handle her mother anymore and does not know what to do. She states she has been yelling and screaming for the past few days. Daughter states she is not sure what medicines her mother is currently on. The daughter appears frustrated with the current situation. Consultation: A consultation was placed with the hospitalist. The case was discussed and diagnostics were reviewed. The patient was evaluated in the ER for further treatment. Exam and history seem consistent with acute UTI with A-fib with RVR, hypokalemia and low magnesium and dehydration. Upon initial evaluation, patient was starting broad-spectrum antibiotics as she appeared quite ill. Helms was replaced.Patient was hydrated as above. Electrolytes were replaced. She was reassessed multiple times. Vital signs did improve. Patient is agreeable to treatment plan of admission. Medicine was consulted case is discussed. She will be admitted to the medical service. By the evaluation outlined above emergent etiologies such as intracerebral event, toxologic, neurologic, abnormalities blood glucose, metabolic, as well as others were deemed relatively unlikely. The pt informed about the findings as listed above. All questions were answered and pleased with the treatment. The chart was completed utilizing [employer] Speech voice recognition software. Grammatical errors, random word insertions, pronoun errors, and incomplete sentences are an occassional consequence of this system due to software limitations, ambient noise, and hardware issues. Any formal questions or concerns about the content, text, or information contained within the body of this dictation should be directly addressed to the physician specimen preparation assistant for clarification. Impression & Plan Hypokalemia, Atrial fibrillation with rapid ventricular response, Hypomagnesemia, Dehydration, Acute UTI, Elevated troponin Discharge Plan Visit Data Chief Complaint: Cardiac Assessment Stated Complaint: CHEST PAIN, ABD PAIN ED Provider: Sravanthi Aguayo ED Midlevel Provider: nAna Durán Discharge Problem: Hypokalemia, Atrial fibrillation with rapid ventricular response, Hypomagnesemia, Dehydration, Acute UTI, Elevated troponin Patient Disposition: Admitted As Inpatient Condition: Fair Forms Stand Alone Forms: [facility] Prescriptions Prescriptions: No Action levothyroxine 25 mcg Tablet 25 mcg PO DAILY pantoprazole [Protonix] 40 mg Tablet,Delayed Release (Dr/Ec) 40 mg PO DAILY nitroglycerin 0.4 mg Tablet, Sublingual 0.4 mg sublingual UD Rx Instructions: sl prn chest pain Q 5min x 3 and to call 911 metoprolol succinate 50 mg Tablet Extended Release 24 Hr 50 mg PO BID ipratropium-albuterol 0.5 mg-3 mg(2.5 mg base)/3 mL Solution For Nebulization 3 ml NEB Q4H PRN (Reason: shortness of breath or wheezing) Qty: 90 0RF miconazole nitrate [Desenex] 2 % Powder 1 applic EXT PRN PRN (Reason: rash) Qty: 85 0RF ondansetron 4 mg Tablet,Disintegrating 4 mg PO Q6H PRN (Reason: nausea and vomiting) Qty: 10 0RF lorazepam [Ativan] 1 mg tablet 1 mg PO Q6H PRN (Reason: anxiety) Qty: 10 0RF morphine 20 mg/5 mL (4 mg/mL) solution 5 mg PO Q2H PRN (Reason: dyspnea/discomfort/pain) Qty: 100 0RF Referrals Referrals: Ronald Cortes MD [Primary Care Provider] -
[2024-10-24] MEDS: SODIUM CHLORIDE 0.9% 1,000 ML IV SCH (01:11)
[2024-10-24 01:25] LABS: INR 1.1 (0.9-1.1); Partial Thromboplastin Time 24 Seconds (21-31); Prothrombin Time 11.8 Seconds (9.0-12.0)
[2024-10-24 01:27] LABS: Base Excess VBG 18.0 mEq/L; HCO3 VBG 45 mmol/L; Oxygen Saturation VBG < 60.0 %; PCO2 VBG 62 mmHg (38-50); PO2 VBG 31 mmHg; pH VBG 7.47 (7.36-7.41)
[2024-10-24 01:35] LABS: Alanine Aminotransferase 13.0 U/L (7-52); Albumin Globulin Ratio 0.9 (0.9-2); Alkaline Phosphatase 106.0 U/L (34-104); Anion Gap 12.0 (3-11); Bilirubin,Total 1.0 mg/dl (0.2-1.0); Blood Urea Nitrogen 7.0 mg/dl (6-23); Calcium 8.4 mg/dl (8.6-10.3); Carbon Dioxide 38.0 mmol/L (21-32); Chloride 87.0 mmol/L (98-107); Creatinine Clr Calc Pharmacy 41.3 ml/min; Globulin 3.5 gm/dl (2.5-4.0); Glucose 103.0 mg/dl (70-99(Fasting)); Lipase 25.0 U/L (11-82); Magnesium 1.5 mg/dl (1.7-2.4); Potassium 2.4 mmol/L (3.5-5.1); Sodium 137.0 mmol/L (136-145); Total Protein 6.6 gm/dl (6.0-8.3)
[2024-10-24 01:42] LABS: Appearance Urine Cloudy (Clear); Bacteria Urine Automated 4+ (None Seen); Epithelial Cell Urine Auto 0-2 /hpf (0-2); Glucose Urine UA Negative (Negative); RBC Urine Automated >20 /hpf (0-2); WBC Urine Automated >50 /hpf (0-5)
[2024-10-24] MEDS: POTASSIUM CHLORIDE 20 MEQ/15 ML UDC PO STA (01:50)
[2024-10-24] MEDS: OPTIRAY 320 125ml IV ONE (02:08)
[2024-10-24] MEDS: MAGNESIUM SULFATE / D5W 1 GM/100 ML BAG IV SCH (02:11)
[2024-10-24] MEDS: POTASSIUM CHLORIDE / WTR 10 MEQ/100 ML PLCT IV SCH (02:13)
--- NOTE | 2024-10-24 02:22 | XRay Report ---
EXAM: XR chest 1V portable CLINICAL HISTORY: Sepsis. TECHNIQUE: X-ray image of the chest is obtained in AP projection. COMPARISON: CR 09/24/2024 FINDINGS: Pulmonary Parenchyma: Hyperinflated both lungs with accentuated translucency, suggesting emphysema / COPD. Mild basal interstitial reticulations are noted, No evidence of consolidation, collapse, or focal opacities. No pulmonary nodules are identified. No evidence of pleural effusion or pleural thickening. Heart and Mediastinum: Heart size and shape are normal. Dilated aortic arch. No mediastinal widening or masses. No hilar or mediastinal lymphadenopathy. Bony Thorax: Bony thorax appears intact without fractures or deformities. Soft Tissues: Soft tissues overlying the chest wall are unremarkable. IMPRESSION: 1. No acute cardiopulmonary abnormalities are identified. 2. Hyperinflated both lungs with accentuated translucency, suggesting emphysema / COPD. (Unchanged). 3. The previously inserted NGT and ETT were removed. Electronically signed by Fred Cerda 10-24-2024 02:22 AM
--- NOTE | 2024-10-24 02:55 | CT Scan Report ---
EXAM: CT angio chest PE protocol CLINICAL HISTORY: PE TECHNIQUE: Contiguous axial images were obtained from the neck base through the upper abdomen following intravenous administration of iodinated contrast material. Angiographic images were processed, 3D MIP images were acquired for interpretation. If IV contrast material had not been administered, the likelihood of detecting abnormalities relevant to the patient's condition would have been substantially decreased. Coronal and sagittal 3-D MIPs were likewise performed and indicated to increase the sensitivity of detecting diffuse clinically relevant pathology. CT scan was performed according to ALARA (as low as reasonably achievable). 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 The central airways are patent. Panacinar emphysematous changes in bilateral lungs. A thin walled simple cyst of size [id number] in right lower lobe. Right minimal and left mild pleural effusion with adjacent basal atelectasis. The heart, aorta, and pulmonary arteries are of normal size and configuration. Diffuse atherosclerotic wall calcification of arch and thoracic aorta. No pericardial effusion is identified. The thyroid is unremarkable. No mediastinal, hilar, or axillary lymphadenopathy is noted. No suspicious lytic or sclerotic osseous lesions are identified. Degenerative changes in visualized spine. Anterior wedge compression of D11 vertebral body. IMPRESSION: 1. No evidence of pulmonary embolism- stable 2. Panacinar emphysematous changes in bilateral lungs-stable 3. A thin walled simple cyst of size [id number] in right lower lobe- stable 4. Right minimal and left mild pleural effusion with adjacent basal atelectasis. New finding. Electronically signed by Mervin Stewart 10-24-2024 02:55 AM
--- NOTE | 2024-10-24 02:58 | CT Scan Report ---
EXAM: CT abd pelvis IV con only CLINICAL HISTORY: lower abd pain TECHNIQUE: Contiguous axial images were obtained from the level of the diaphragm to the pubic symphysis with intravenous contrast. Coronal and sagittal reconstructions were likewise performed and indicated to increase the sensitivity for detecting clinically relevant pathology. If IV contrast material had not been administered, the likelihood of detecting abnormalities relevant to the patient's condition would have been substantially decreased. CT scan was performed according to ALARA (as low as reasonable achievable). 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 The liver is normal in size and attenuation. No focal liver lesions are seen. There is no intra or extrahepatic biliary ductal dilatation. Hepatic vasculature is patent. The gallbladder is absent. The spleen, pancreas, and adrenal glands are unremarkable. The kidneys are normal in size and attenuation. There is no hydronephrosis or perinephric fat stranding. DJ stent is seen in situ on right side. Few simple cortical cysts noted in right kidney. The ureters are normal in caliber and no ureteral calculi are seen. The bladder is normal in contour. Pelvic viscera are unremarkable. No focal or diffuse bowel wall thickening or evidence of bowel obstruction is identified. Abdominal and pelvic vasculature is patent. No adenopathy or fluid collections are seen. Severe degenerative changes involving visualized spine. Compression collapse with anterior wedging and sclerosis of [id number] body with about 20-25% reduction of vertebral body height. Hypodense oval shaped lesion in left S2 neural foramen. IMPRESSION: 1. Mild bilateral pleural effusion with basal subsegmental collapse of both lower lobes are seen - increased on either side and no interval development of right side. 2. Diffuse atherosclerotic calcification is noted involving aorta iliac arteries. -stable. 3. 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 4. Stable right renal cortical cyst. 5. Stable right side DJ stent. 6. Previously noted hyperdense material in rectum is not seen in current scan 7. Severe degenerative changes involving visualized spine. 8. Compression collapse with anterior wedging and sclerosis of [id number] body with about 20-25% reduction of vertebral body height.-stable. 9. Hypodense oval shaped lesion in left S2 neural foramen. Possibility of tarlov cyst. Advised further evaluation with MRI. Electronically signed by Mervin Stewart 10-24-2024 02:58 AM
--- NOTE | 2024-10-24 03:45 | History & Physical Report ---
Date of Service October 24, 2024 Assessment & Plan (1) Elevated troponin: (2) Acute UTI: (3) Atrial fibrillation with rapid ventricular response: (4) Hypomagnesemia: (5) Hypokalemia: (6) COPD with emphysema: Plan 74yo female presenting with episode of chest discomfort, SOB Patient with prolonged hospital stay with recent discharge on 10/19/24 with HOSPICE SERVICES. Patient ended up being taken off hospice services and now wishes to be FULL CODE. She had many medications discontinued on discharge due to her being on hospice. Will cautiously resume medications as below. #Elevated troponin - likely secondary to rate related demand ischemia. Patient does have history of CAD s/p RADU x 2 to RCA. She was previously on Plavix which was discontinued during last hospital stay -Telemetry monitoring -Trend to peak -Will resume Plavix 75mg po daily -Will resume Atorvastatin 40mg po daily #Atrial fibrillation -Magnesium and potassium repletion -Continue Metoprolol 50mg po BID -Was previously on Apixaban 5mg po BID which was held at last admission for GIB - will resume with caution. Patient did have a GIB during her last hospital stay that has since resolved #Acute UTI - h/o Pseudomonas. Patient afebrile, non-toxic in appearance -Follow cultures -Continue Zosyn #Hypokalemia - K=2.4. Thus far given 50mEq -Will give additional 40mEq -Repeat labs today at noon #Hypomagnesemia - given 2gm Mg -Repeat level in AM #COPD -DuoNebs PRN -Resume advair and Tiotopium #GERD -Protonix 40mg po daily #Anxiety -Ativan 1mg po q 6 hours PRN -If desired would consider resuming patient's home Celexa- did not discuss this with patient #Hypothyroid -Continue Synthroid #Hypertension -Continue Metoprolol 50mg po BID -If needed would resume patient's prior medication Losartan 25mg po daily History of Present Illness Chief Complaint: "panic attack" Primary Care Provider: Ronald Cortes MD Kae Johnston is a 74y female with history of Chronic hypoxic respiratory failure with hypoxia, COPD on 3L home O2, ongoing tobacco use, CAD, HTN, PAF, GERD, DM and HLP presenting from home with complaints of a "panic attack". Patient just admitted to [facility] 09/24 - 10/19/2024 after presenting with shock - though secondary to sepsis and hypovolemia. Patient was initially admitted to the ICU - intubated and on pressor support. She was transfused 2u PRBCs. Patient ultimately improved but continued to be encephalopathic for several days. Patient eventually improved but was discharged home with hospice services. Patient was ultimately taken off hospice services due to complex social issues - (Please see Flour TesterGinger Farmer Notes from 10/21/24 for details). Patient returns tonight stating that she had a "panic attack" - endorses racing heart, chest discomfort, shortness of breath as well as some lower abdominal pain. Patient denies vomiting, diarrhea, dysuria. She has a Helms in place with cloudy urine. Lives at home with daughter and grandson. Is mostly bedbound and in a wheelchair. Patient AF with RVR in the field - given Cardizem 10mg IV ER Course: Potassium 40meg + 40mEq + 10meq Mag x 2gm, Zosyn 4.5gm NSS x 1L Vanc 750mg Allergies Allergy/AdvReac Type Severity Reaction Status Date / Time bee venom protein (honey bee) Allergy Severe SWELLING Verified 10/24/24 00:56 SEVERE doxycycline Allergy Intermediate Vomiting Verified 10/24/24 00:56 Home Medications Medication Instructions Recorded Confirmed Type levothyroxine 25 mcg tablet 25 mcg PO DAILY 09/24/24 10/24/24 History metoprolol succinate 50 mg 50 mg PO BID 09/24/24 10/24/24 History tablet,extended release 24 hr nitroglycerin 0.4 mg sublingual 0.4 mg sublingual UD 09/24/24 10/24/24 History tablet pantoprazole 40 mg tablet,delayed 40 mg PO DAILY 09/24/24 10/24/24 History release (Protonix) ipratropium 0.5 mg-albuterol 3 mg 3 ml NEB Q4H PRN shortness of 10/19/24 10/24/24 Rx (2.5 mg base)/3 mL nebulization breath or wheezing #90 mL soln miconazole nitrate 2 % topical 1 applic EXT PRN PRN rash #85 grams 10/19/24 10/24/24 Rx powder (Desenex) ondansetron 4 mg disintegrating 4 mg PO Q6H PRN nausea and 10/19/24 10/24/24 Rx tablet vomiting #10 tabs lorazepam 1 mg tablet (Ativan) 1 mg PO Q6H PRN anxiety #10 tabs 10/20/24 10/24/24 Rx morphine 20 mg/5 mL (4 mg/mL) oral 5 mg (1.25 mL) PO Q2H PRN 10/20/24 10/24/24 Rx solution dyspnea/discomfort/pain #100 mL Past Med/Surg History Problem List (Updated 10/24/24 @ 04:15 by Olga Recio DO) Elevated troponin (Acute) Acute UTI (Acute) Dehydration (Acute) Hypomagnesemia (Acute) Atrial fibrillation with rapid ventricular response (Acute) Hypokalemia (Acute) COPD with emphysema Neglected elder Failure to thrive in adult Dyspnea and respiratory abnormalities Weakness generalized Altered mental status Acute metabolic encephalopathy Elevated LFTs Metabolic encephalopathy Hypoglycemia associated with diabetes Acidosis (Acute) Respiratory failure (Acute) Anemia (Acute) Acute ME (Acute) Acute UTI (Acute) Hypoglycemia (Acute) Hypotension (Acute) Sepsis (Acute) Shock liver Acute blood loss anemia Hypovolemic shock Septic shock Rectal bleeding Acute and chronic respiratory failure Severe sepsis Hyperkalemia Acute renal failure LVH (left ventricular hypertrophy) due to hypertensive disease CAD (coronary artery disease), nez perce coronary artery Abnormal EKG Hypothyroidism Hydronephrosis Sepsis (Acute) Atrial fibrillation with RVR (Acute) Anticoagulant long-term use (Acute) Medical History Hypokalemia Depression GERD (gastroesophageal reflux disease) COPD with exacerbation Dyslipidemia, goal LDL below 70 Chronic hypoxic respiratory failure 3L NC chronic CAD (coronary artery disease) 2022 - STEMI w/ RCA interventions Anemia COPD (chronic obstructive pulmonary disease) PAF (paroxysmal atrial fibrillation) HTN (hypertension) Myocardial infarction due to demand ischemia Non-ST elevation ME (NSTEMI) Macular degeneration Tobacco use disorder Atrial fibrillation Diabetes Surgical History S/P ORIF (open reduction internal fixation) fracture H/O skin graft History of tonsillectomy H/O heart surgery History of cholecystectomy Hx of tubal ligation Social History Smoking Status: Former smoker Tobacco Type: Cigarettes Cigarettes Per Day: 5; Second Hand Exposure: No; Do You Dip or Chew Tobacco: No; Hx Alcohol Use: No Hx Substance Use: No Preferred Language: Turkish Communication Ability: Impaired Fiber Technologist Required: No Beliefs That Will Affect Care: Jewish Current Living Situation: Family Current Living Situation Comment: with daughter Feels Safe at Home: Yes Assistive Devices: Walker and Wheelchair Review of Systems Review of Systems: All systems reviewed & are unremarkable except as noted in HPI & below Physical Exam Physical Exam: General: patient resting comfortably, NAD, non-toxic in appearance Skin: warm, dry, intact, no rashes or lesions HEENT: NC/AT, PERRL, EOMI, anicteric sclera, conjunctiva without injection, external ear normal to inspection and nontender, nares patent, dry mucus membranes, dentition intact, no oropharyngeal lesions, neck supple, trachea midline, no LAD, no thyromegaly, no JVD Heart: +S1/S2, irregularly irregular, no m/r/g Lungs: equal air entry bilaterally, no rales/rhonchi/wheezes Abd: +BS, soft, NT/ND, no masses/organomegaly/ascites Helms in place Ext: warm, 2+ pulses in UE/LE bilaterally, no clubbing/cyanosis or edema Neuro: nonfocal, patient AA&O x 4, speech intact, no facial droop, moving all ex tremities on command with equal strength 5/5 Results & Data Results & Data Vital Signs (Past 12 Hours) Vital Signs Temp Pulse Resp BP Pulse Ox O2 Del Method O2 Flow Rate 10/24/24 03:31 168/100 H 10/24/24 03:12 112 H 23 100 Nasal Cannula 2 10/24/24 03:02 99 Nasal Cannula 2 10/24/24 03:00 135/89 10/24/24 03:00 107 H 18 10/24/24 02:51 130 H 10/24/24 02:39 127 H 24 10/24/24 02:30 111/88 10/24/24 01:30 94 H 22 151/125 H 96 Nasal Cannula 2 10/24/24 01:00 97 H 29 H 159/103 H 100 Nasal Cannula 2 10/24/24 00:48 99 Nasal Cannula 1 10/24/24 00:48 99 Nasal Cannula 1 10/24/24 00:45 118 H 10/24/24 00:39 37.2 C 117 H 24 131/82 85 L Room Air 10/24/24 00:39 Room Air Laboratory Results Laboratory Results WBC 10.21 K/ul (4.8-10.8) 10/24/24 00:36 RBC 4.10 M/uL (4.20-5.40) L 10/24/24 00:36 Hgb 12.1 g/dl (12.0-16.0) 10/24/24 00:36 Hct 37.2 % (37.0-47.0) 10/24/24 00:36 MCV 90.7 fL (80.0-100.0) 10/24/24 00:36 MCH 29.5 pg (25.0-34.0) 10/24/24 00:36 MCHC 32.5 g/dL (32.0-36.0) 10/24/24 00:36 RDW Std Deviation 61.8 fL (36.4-46.3) H 10/24/24 00:36 RDW Coeff of Chet 18.6 % (11.5-14.5) H 10/24/24 00:36 Plt Count 294 K/uL (130-400) 10/24/24 00:36 MPV 8.4 fL (9.4-12.4) L 10/24/24 00:36 Immature Gran % (Auto) 0.4 % 10/24/24 00:36 Neut % (Auto) 71.8 % 10/24/24 00:36 Lymph % (Auto) 17.3 % 10/24/24 00:36 Borden % (Auto) 8.9 % 10/24/24 00:36 Eos % (Auto) 1.3 % 10/24/24 00:36 Baso % (Auto) 0.3 % 10/24/24 00:36 Neut # (Auto) 7.33 K/uL (1.40-6.50) H 10/24/24 00:36 Lymph # (Auto) 1.77 K/uL (1.20-3.40) 10/24/24 00:36 Borden # (Auto) 0.91 K/uL (0.11-0.59) H 10/24/24 00:36 Eos # (Auto) 0.13 K/uL (0.00-0.50) 10/24/24 00:36 Baso # (Auto) 0.03 K/uL (0.00-0.20) 10/24/24 00:36 Immature Gran # (Auto) 0.04 K/uL (0.01-0.20) 10/24/24 00:36 PT 11.8 Seconds (9.0-12.0) 10/24/24 00:48 INR 1.1 (0.9-1.1) 10/24/24 00:48 APTT 24 Seconds (21-31) 10/24/24 00:48 PTT Ratio 0.9 10/24/24 00:48 VBG pH 7.47 (7.36-7.41) H 10/24/24 01:02 VBG pCO2 62 mmHg (38-50) H 10/24/24 01:02 VBG pO2 31 mmHg 10/24/24 01:02 VBG HCO3 45 mmol/L 10/24/24 01:02 VBG O2 Saturation < 60.0 % 10/24/24 01:02 VBG Base Excess 18.0 mEq/L 10/24/24 01:02 Sodium 137 mmol/L (136-145) 10/24/24 00:48 Potassium 2.4 mmol/L (3.5-5.1) L* 10/24/24 00:48 Chloride 87 mmol/L (98-107) L 10/24/24 00:48 Carbon Dioxide 38 mmol/L (21-32) H 10/24/24 00:48 Anion Gap 12 (3-11) H 10/24/24 00:48 BUN 7 mg/dl (6-23) 10/24/24 00:48 Creatinine 0.73 mg/dl (0.6-1.2) 10/24/24 00:48 Est Cr Clr Drug Dosing 41.3 ml/min 10/24/24 00:48 eGFR 85.71 10/24/24 00:48 BUN/Creatinine Ratio 9.6 (10-20) L 10/24/24 00:48 Glucose 103 mg/dl (70-99(Fasting)) H 10/24/24 00:48 Lactate 1.7 mmol/L (0.4-2.0) 10/24/24 01:02 Calcium 8.4 mg/dl (8.6-10.3) L 10/24/24 00:48 Magnesium 1.5 mg/dl (1.7-2.4) L 10/24/24 00:48 Total Bilirubin 1.0 mg/dl (0.2-1.0) 10/24/24 00:48 Direct Bilirubin 0.4 mg/dl (0-0.2) H 10/24/24 00:48 AST 21 U/L (13-39) 10/24/24 00:48 ALT 13 U/L (7-52) 10/24/24 00:48 Alkaline Phosphatase 106 U/L (34-104) H 10/24/24 00:48 Troponin I High Sens 15.4 pg/ml (0-14) H 10/24/24 00:48 Total Protein 6.6 gm/dl (6.0-8.3) 10/24/24 00:48 Albumin 3.1 gm/dl (3.4-5.0) L 10/24/24 00:48 Globulin 3.5 gm/dl (2.5-4.0) 07 00:48 Albumin/Globulin Ratio 0.9 (0.9-2) 10/24/24 00:48 Lipase 25 U/L (11-82) 10/24/24 00:48 Procalcitonin 0.03 ng/ml (0-0.5) 10/24/24 00:48 Urine Color Yellow 10/24/24 00:45 Urine Appearance Cloudy (Clear) A 10/24/24 00:45 Urine pH 6.5 (4.5-7.5) 10/24/24 00:45 Ur Specific Basalt 1.004 (1.000-1.030) 10/24/24 00:45 Urine Protein Negative (Negative) 10/24/24 00:45 Urine Glucose (UA) Negative (Negative) 10/24/24 00:45 Urine Ketones Negative (Negative) 10/24/24 00:45 Urine Blood Trace (Negative) H 10/24/24 00:45 Urine Nitrite Positive (Negative) A 10/24/24 00:45 Urine Bilirubin Negative (Negative) 10/24/24 00:45 Urine Urobilinogen Negative (Negative) 10/24/24 00:45 Ur Leukocyte Esterase 3+ (Negative) H 10/24/24 00:45 Urine WBC (Auto) >50 /hpf (0-5) H 10/24/24 00:45 Urine RBC (Auto) >20 /hpf (0-2) H 10/24/24 00:45 U Hyaline Cast (Auto) 3-5 /lpf (0-2) H 10/24/24 00:45 U Epithel Cells (Auto) 0-2 /hpf (0-2) 10/24/24 00:45 Urine Bacteria (Auto) 4+ (None Seen) H 10/24/24 00:45 Calcium Oxalate Crystal Present (None Prsent) A 10/24/24 00:45 Urine Yeast Present (None Prsent) A 10/24/24 00:45 Urine Comment 10/24/24 00:45 Impressions Chest X-Ray 10/24/24 00:48 EXAM: XR chest 1V portable CLINICAL HISTORY: Sepsis. TECHNIQUE: X-ray image of the chest is obtained in AP projection. COMPARISON: CR 09/24/2024 FINDINGS: Pulmonary Parenchyma: Hyperinflated both lungs with accentuated translucency, suggesting emphysema / COPD. Mild basal interstitial reticulations are noted, No evidence of consolidation, collapse, or focal opacities. No pulmonary nodules are identified. No evidence of pleural effusion or pleural thickening. Heart and Mediastinum: Heart size and shape are normal. Dilated aortic arch. No mediastinal widening or masses. No hilar or mediastinal lymphadenopathy. Bony Thorax: Bony thorax appears intact without fractures or deformities. Soft Tissues: Soft tissues overlying the chest wall are unremarkable. IMPRESSION: 1. No acute cardiopulmonary abnormalities are identified. 2. Hyperinflated both lungs with accentuated translucency, suggesting emphysema / COPD. (Unchanged). 3. The previously inserted NGT and ETT were removed. Electronically signed by Fred Cerda 10-24-2024 02:22 AM Abdomen/Pelvis CT 10/24/24 01:39 EXAM: CT abd pelvis IV con only CLINICAL HISTORY: lower abd pain TECHNIQUE: Contiguous axial images were obtained from the level of the diaphragm to the pubic symphysis with intravenous contrast. Coronal and sagittal reconstructions were likewise performed and indicated to increase the sensitivity for detecting clinically relevant pathology. If IV contrast material had not been administered, the likelihood of detecting abnormalities relevant to the patient's condition would have been substantially decreased. CT scan was performed according to ALARA (as low as reasonable achievable). COMPARISON: 03:29:23 MUTUEL CASHIER FINDINGS: Mild bilateral pleural effusion with basal subsegmental collapse of both lower lobes are seen Diffuse atherosclerotic calcification is noted involving aorta iliac arteries. 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 The liver is normal in size and attenuation. No focal liver lesions are seen. There is no intra or extrahepatic biliary ductal dilatation. Hepatic vasculature is patent. The gallbladder is absent. The spleen, pancreas, and adrenal glands are unremarkable. The kidneys are normal in size and attenuation. There is no hydronephrosis or perinephric fat stranding. DJ stent is seen in situ on right side. Few simple cortical cysts noted in right kidney. The ureters are normal in caliber and no ureteral calculi are seen. The bladder is normal in contour. Pelvic viscera are unremarkable. No focal or diffuse bowel wall thickening or evidence of bowel obstruction is identified. Abdominal and pelvic vasculature is patent. No adenopathy or fluid collections are seen. Severe degenerative changes involving visualized spine. Compression collapse with anterior wedging and sclerosis of [id number] body with about 20-25% reduction of vertebral body height. Hypodense oval shaped lesion in left S2 neural foramen. IMPRESSION: 1. Mild bilateral pleural effusion with basal subsegmental collapse of both lower lobes are seen - increased on either side and no interval development of right side. 2. Diffuse atherosclerotic calcification is noted involving aorta iliac arteries. -stable. 3. 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 4. Stable right renal cortical cyst. 5. Stable right side DJ stent. 6. Previously noted hyperdense material in rectum is not seen in current scan 7. Severe degenerative changes involving visualized spine. 8. Compression collapse with anterior wedging and sclerosis of [id number] body with about 20-25% reduction of vertebral body height.-stable. 9. Hypodense oval shaped lesion in left S2 neural foramen. Possibility of tarlov cyst. Advised further evaluation with MRI. Electronically signed by Mervin Stewart 10-24-2024 02:58 AM Chest CTA 10/24/24 01:39 EXAM: CT angio chest PE protocol CLINICAL HISTORY: PE TECHNIQUE: Contiguous axial images were obtained from the neck base through the upper abdomen following intravenous administration of iodinated contrast material. Angiographic images were processed, 3D MIP images were acquired for interpretation. If IV contrast material had not been administered, the likelihood of detecting abnormalities relevant to the patient's condition would have been substantially decreased. Coronal and sagittal 3-D MIPs were likewise performed and indicated to increase the sensitivity of detecting diffuse clinically relevant pathology. CT scan was performed according to ALARA (as low as reasonably achievable). COMPARISON: CTA, 07/08/2024 21:50:23 MUTUEL CASHIER FINDINGS: Adequate contrast bolus without evidence of pulmonary embolism. The central airways are patent. Panacinar emphysematous changes in bilateral lungs. A thin walled simple cyst of size [id number] in right lower lobe. Right minimal and left mild pleural effusion with adjacent basal atelectasis. The heart, aorta, and pulmonary arteries are of normal size and configuration. Diffuse atherosclerotic wall calcification of arch and thoracic aorta. No pericardial effusion is identified. The thyroid is unremarkable. No mediastinal, hilar, or axillary lymphadenopathy is noted. No suspicious lytic or sclerotic osseous lesions are identified. Degenerative changes in visualized spine. Anterior wedge compression of D11 vertebral body. IMPRESSION: 1. No evidence of pulmonary embolism- stable 2. Panacinar emphysematous changes in bilateral lungs-stable 3. A thin walled simple cyst of size [id number] in right lower lobe- stable 4. Right minimal and left mild pleural effusion with adjacent basal atelectasis. New finding. Electronically signed by Mervin Stewart 10-24-2024 02:55 AM PG Care Time/CCT Total # of Minutes Spent Total Time Spent with Patient: Total time spent is greater than 50% in coordination of care (as documented) at patient's floor/unit and/or counseling patient: Coding Level of Care Code 26210 INT INP/OBS CARE 3/75MIN Diagnoses Elevated troponin R79.89 Acute UTI N39.0 Atrial fibrillation with rapid ventricular response I48.91 Hypomagnesemia E83.42 Hypokalemia E87.6 COPD with emphysema J43.9
[2024-10-24] MEDS: VANCOMYCIN HCL 750 MG in SODIUM CHLORIDE 0.9% 250 ML IV STA (03:52)
[2024-10-24] MEDS ORDERED: ALBUT/IPRATROP 3MG/0.5MG NEB 3 ML VIAL NEB PRN (04:54)
[2024-10-24] MEDS ORDERED: DOCUSATE SODIUM 100 MG CAP PO PRN (04:54)
[2024-10-24] MEDS ORDERED: LORazepam 1 MG TAB PO PRN (04:54)
[2024-10-24] MEDS: LACTATED RINGER'S 1,000 ML IV SCH (05:24)
[2024-10-24] MEDS: POTASSIUM CHLORIDE 10 MEQ TABCR PO STA (05:48)
--- NOTE | 2024-10-24 06:14 | Emergency Department Note ---
ED Visit Note I was consulted by the Advanced Practice Provider. I approved the management plan and take responsibility for the patient management. This includes the aspects of: -History/Physical -MDM -I independently interpreted the following studies:Studies and results .
[2024-10-24] MEDS: PIPERACILLIN/TAZOBACTAM 4.5 GM/100 ML BAG IV SCH (07:30)
[2024-10-24] MEDS: METOPROLOL SUCC 50MG EXT REL TAB PO SCH (08:16)
[2024-10-24] MEDS: LEVOTHYROXINE SODIUM 25 MCG TABLET PO SCH (08:16)
[2024-10-24] MEDS: ATORVASTATIN 40 MG TAB PO SCH (08:16)
[2024-10-24] MEDS: APIXABAN 2.5 MG TAB PO SCH (08:16)
[2024-10-24] MEDS: CLOPIDOGREL BISULFATE 75 MG TAB PO SCH (08:17)
[2024-10-24] MEDS: FLUTICASONE/VILANTEROL 100/25MCG 14 PUFFS/INHALER INH SCH (08:21)
[2024-10-24] MEDS ORDERED: TIOTROPIUM BROMIDE 5 PUFF/90 MCG INH INH SCH (09:00)
[2024-10-24] MEDS: VANCOMYCIN 750 MG in SODIUM CHLORIDE 0.9% 250 ML IV SCH (10:33)
--- NOTE | 2024-10-24 11:17 | Electrocardiogram Report ---
Test Reason : Blood Pressure : */* mmHG Vent. Rate : 117 BPM Atrial Rate : * BPM P-R Int : * ms QRS Dur : 78 ms QT Int : 280 ms P-R-T Axes : * 83 268 degrees QTcB Int : 390 ms Atrial fibrillation with rapid ventricular response Minimal voltage criteria for LVH, may be normal variant Septal infarct , age undetermined Marked ST abnormality, possible inferior subendocardial injury Abnormal ECG When compared with ECG of 26-Sep-2024 03:43, Significant changes have occurred Confirmed by Bo Quintero ([id number]) on 10/24/2024 11:16:38 AM Referred By: REFERRED SELF Confirmed By: Bo Quintero
[2024-10-24 12:31] LABS: Anion Gap 8.0 (3-11); Blood Urea Nitrogen 6.0 mg/dl (6-23); Calcium 7.3 mg/dl (8.6-10.3); Carbon Dioxide 34.0 mmol/L (21-32); Chloride 94.0 mmol/L (98-107); Creatinine Clr Calc Pharmacy 41.7 ml/min; Glucose 112.0 mg/dl (70-99(Fasting)); Magnesium 1.9 mg/dl (1.7-2.4); Potassium 3.6 mmol/L (3.5-5.1); Sodium 136.0 mmol/L (136-145)
[2024-10-24] MEDS: THIAMINE HCL 100 MG in SYRINGE 9 ML IV STA (13:37)
[2024-10-24] MEDS: UMECLIDINIUM BROMIDE 62.5MCG/BLISTER 7 PUFFS/INHALER INH SCH (13:39)
--- NOTE | 2024-10-24 13:47 | Communication Note ---
Spoke on the phone with patient's daughter (Cindy). Daughter confirms that she is medical POA/proxy. Informed daughter that, in her current state, the patient does not have medical capacity. Daughter reports that she called the ambulance last night as the patient was complaining of chest and abdominal pain. She does have a history of recurrent UTIs. Daughter also reports that, for the past 3 days, she has been unable to sleep because her mother has been "yelling" for help. Dad reports that she would complain about needing a drink, when there was a drink right in front of her. Daughter also reports that her mom was defecating on the floor, and making messes everywhere. Daughter reports that she did not talk to anyone last night regarding admission. Long discussion with daughter as she is currently listed as a "full code". Explained to daughter that the patient was just discharged on hospice last week, and that patients that are on hospice tend to focus on things like quality of life over quantity of life. Daughter does express a desire for her mom to remain on hospice when she is discharged from the hospital. She confirms that she would not want her mother to be intubated or have any invasive procedures done; daughter expresses a desire to keep her current CODE STATUS as it was during her last hospitalization, which is "DNR/DNI". Note: Patient was just recently discharged by [facility] service on 10/19. Daughter did express a desire for patient to remain with the same providers who cared for her during most recent hospitalization. This was discussed with the [facility] team, and plan is to transfer patient over to [facility] service on the morning of 10/25. Date of Service: October 24, 2024 The patient was not seen by me. The chart was reviewed. Case discussed with BO Paredes. Agree with assessment and plan Eric Knapp MD
--- NOTE | 2024-10-24 14:38 | Hospitalist Progress Note ---
Date of Service October 24, 2024 Assessment & Plan (1) Hypophosphatemia: (2) Atrial fibrillation with rapid ventricular response: (3) Acute UTI: (4) Elevated troponin: (5) Hypomagnesemia: (6) Hypokalemia: (7) COPD with emphysema: Plan 74yo female presenting with episode of chest discomfort, SOB Patient with prolonged hospital stay with recent discharge on 10/19/24 with HOSPICE SERVICES. Patient ended up being taken off hospice services and now wishes to be FULL CODE. She had many medications discontinued on discharge due to her being on hospice. Will cautiously resume medications as below. #Atrial fibrillation With RVR arrival Magnesium and potassium repletion Continue Metoprolol 50mg po BID Was previously on Apixaban 5mg po BID which was held at last admission for GIB - will resume with caution. Patient did have a GIB during her last hospital stay that has since resolved Hgb stable at 12.1 on 10/24; trend #Elevated troponin -resolved Likely secondary to rate related demand ischemia. Patient does have history of CAD s/p RADU x 2 to RCA. She was previously on Plavix which was discontinued during last hospital stay Restart Plavix 75mg po daily Continue atorvastatin 40mg po daily Continues to Metronic for now #Acute UTI - h/o Pseudomonas on prior urine cultures Patient afebrile, non-toxic in appearance Suspect this is the primary reason for her changes in cognition on arrival Follow cultures Vancomycin given empirically on arrival has been discontinued on 10/24 Continue Zosyn #Hypophosphatemia Phosphorus level 1.1 on arrival Sodium phosphate 12 mmol IV (0.3mmol/kg) ordered to be given over 4 hours Trend phosphorus levels q6h while receiving IV phosphorus supplementation Recommend transitioning to oral phosphorus supplementation once phosphorus levels are above 1.5 #Hypokalemia - resolved K 2.4 -> 3.6 Patient received K 90 mEq Trend BMP #Hypomagnesemia - resolved Mag 1.5 -> 1.9 s/p 2 g IV Trend magnesium #Cachexia Dietitianist consult appreciated Thiamine supplementation added due to high refeeding risk #COPD DuoNebs PRN Resume Advair and Tiotopium #GERD Protonix 40mg po daily #Anxiety Ativan 1mg po q 6 hours PRN If desired would consider resuming patient's home Celexa- did not discuss this with patient #Hypothyroid Continue Synthroid #Hypertension Continue Metoprolol 50mg po BID If needed would resume patient's prior medication Losartan 25mg po daily Disposition: Continued stay on MedSurg Long discussion with patient's daughter/medical POA on 10/24. Daughter would prefer patient to be on hospice care upon discharge. CODE STATUS changed to DNR/DNI. Please see communication note for additional details. Admission and Anticipated Discharge Date Admission Date: October 24, 2024 Supervising Physician Co-Signing Physician Notes The patient was not seen by me. The chart was reviewed. Case discussed with BO Paredes. Agree with assessment and plan Subjective Patient seen in the room. Poor historian at this time. She is not oriented to month, location, or purpose in the hospital. She does respond to some questions, but ignores others. She does know her name and date of . When asked if she has any pain, she does endorse chest and abdominal pain (mainly with palpation). Otherwise, her only complaint is that she is "cold" and she had difficulty sleeping the night prior. ROS difficulty obtained this time, the patient does endorse chest/abdominal pain. Spoke on phone with patient's daughter/medical POA (please see communication note for full details). Review of Systems Review of Systems: See HPI above Physical Exam Physical Exam: General: no acute distress; non-toxic appearing; cachectic; frail-appearing; cooperative; SpO2 99% on 2L NC HEENT: normocephalic, atraumatic; no scleral icterus; PERRLA; hearing does appear to be intact Neck: supple; trachea midline Skin: warm, dry without signs of tenting; no cyanosis; no rashes, bruising, lesions, or erythema noted CV: chest wall is mildly TTP; RRR; S1/S2 normal; no murmurs/rubs/gallops; pulses intact and symmetric at radial, DP, and PT Lungs: no acute respiratory distress; symmetrical chest wall expansion; clear breath sounds across all lung vazquez w/o adventitious sounds; no wheezing ABD: Soft, epigastric/umbilical region is mildly TTP; BS present; no rebound/guarding; no distention MSK: no tics or fasciculations; no edema noted in the LEs b/l, nonerythematous Neuro: Alert and oriented to name and date of ; not oriented to location, month, season, or purpose in the hospital; flat mood and affect; does not respond to most questioning; unable to assess sensation Results & Data Results & Data Vital Signs (Past 12 Hours) Vital Signs Pulse Pulse Resp BP BP Pulse Ox O2 Del Method 10/24/24 08:51 Nasal Cannula 10/24/24 08:30 117 H 17 102/81 99 Nasal Cannula 10/24/24 07:00 114 H 17 147/106 H 100 Nasal Cannula 10/24/24 07:00 110 H 10/24/24 06:30 115 H 18 149/106 H 100 Nasal Cannula 10/24/24 05:33 106 H 20 100 10/24/24 05:30 115 H 21 134/108 H 100 Nasal Cannula 10/24/24 05:00 102 H 19 119/72 100 Nasal Cannula 10/24/24 05:00 102 H 18 119/72 99 Nasal Cannula 10/24/24 05:00 Nasal Cannula 10/24/24 04:39 104 H 10/24/24 04:30 110 H 24 153/109 H 100 Nasal Cannula 10/24/24 04:01 144/120 H 10/24/24 03:31 168/100 H 10/24/24 03:12 112 H 23 100 Nasal Cannula 10/24/24 03:02 99 Nasal Cannula 10/24/24 03:00 135/89 10/24/24 03:00 107 H 18 10/24/24 02:51 130 H 10/24/24 02:39 127 H 24 O2 Flow Rate 10/24/24 08:51 2 10/24/24 08:30 2 10/24/24 07:00 2 10/24/24 07:00 10/24/24 06:30 2 10/24/24 05:33 10/24/24 05:30 2 10/24/24 05:00 2 10/24/24 05:00 2 10/24/24 05:00 2 10/24/24 04:39 10/24/24 04:30 2 10/24/24 04:01 10/24/24 03:31 10/24/24 03:12 2 10/24/24 03:02 2 10/24/24 03:00 10/24/24 03:00 10/24/24 02:51 10/24/24 02:39 PG Care Time/CCT Total # of Minutes Spent Total Time Spent with Patient: Total time spent is greater than 50% in coordination of care (as documented) at patient's floor/unit and/or counseling patient: Coding [place] [address] SUB INP/OBS CARE 3/50MIN Patient Type Established Medical Decision Making High Complexity Diagnoses Hypophosphatemia E83.39 Atrial fibrillation with rapid ventricular response I48.91 Acute UTI N39.0 Elevated troponin R79.89 Hypomagnesemia E83.42 Hypokalemia E87.6 COPD with emphysema J43.9
[2024-10-24] MEDS ORDERED: PHA DELIRIUM CONSULT PRN (18:48)
[2024-10-24] MEDS: SODIUM PHOSPHATE 3 MMOL/1 ML 5 ML VIAL IV STA (19:17)
[2024-10-24] MEDS: SODIUM PHOSPHATE 12 MMOL in SODIUM CHLORIDE 0.9% 250 ML IV ONE (20:41)
[2024-10-25] MEDS: ACETAMINOPHEN 325 MG TAB PO PRN (00:40)
[2024-10-25] MEDS: ONDANSETRON INJ 2 MG/ML 2 ML VIAL IV PRN (00:41)
[2024-10-25] MEDS ORDERED: Nursing to Pharmacy Communication SCH (06:45)
[2024-10-25 07:32] LABS: A calco-baum cmplx NotReported Not Detected (NotDetected); Bact fragilis Not Reported Not Detected (NotDetected); Blood Culture Id Panel See PCR Comment (NotDetected); C auris Not Reported Not Detected (NotDetected); Calbicans Not Reported Not Detected (NotDetected); Candida glabrata Not Reported Not Detected (NotDetected); Candida krusei Not Reported Not Detected (NotDetected); Cneoformans/gatti Not Reported Not Detected (NotDetected); Cparapsilosis Not Reported Not Detected (NotDetected); Ctropicalis Not Reported Not Detected (NotDetected); E cloacae compx Not Reported Not Detected (NotDetected); Efaecalis Not Reported Not Detected (NotDetected); Efaecium Not Reported Not Detected (NotDetected); Enterobacterales Not Reported Not Detected (NotDetected); Escherichia coli Not Reported Not Detected (NotDetected); H influenzae Not Reported Not Detected (NotDetected); K aerogenes Not Reported Not Detected (NotDetected); Koxytoca Not Reported Not Detected (NotDetected); Kpneumoniae grp Not Reported Not Detected (NotDetected); Lmonocyt Not Reported Not Detected (NotDetected); N meningitidis Not Reported Not Detected (NotDetected); P aeruginosa Not Reported Not Detected (NotDetected); Proteus spp Not Reported Not Detected (NotDetected); Salmonella spp Not Reported Not Detected (NotDetected); Staph lugdunensis Not Reported Not Detected (NotDetected); Staph spp. Not Reported DETECTED (NotDetected); Staphaureus Not Reported Not Detected (NotDetected); Staphepi Not Reported DETECTED (NotDetected); Staphylococcus spp. DETECTED (NotDetected); Stenmaltophilia Not Reported Not Detected (NotDetected); Strep agal(GrpB) Not Reported Not Detected (NotDetected); Strep pneum Not Reported Not Detected (NotDetected); Strep pyog (GrpA) Not Reported Not Detected (NotDetected); Strep spp Not Reported Not Detected (NotDetected)
[2024-10-25 07:41] LABS: Staphylococcus epidermidis DETECTED (NotDetected); mecAC Resistant Gene DETECTED (NotDetected)
[2024-10-25] MEDS: THIAMINE HCL 100 MG TAB PO SCH (09:12)
[2024-10-25 09:41] LABS: Hematocrit (blood only) 35.1 % (37.0-47.0); Hemoglobin 11.2 g/dl (12.0-16.0); Mean Corpuscular Hemoglobin 29.9 pg (25.0-34.0); Mean Corpuscular Volume 93.9 fL (80.0-100.0); Platelet Count 212 K/uL (130-400); RDW Standard Deviation 67.5 fL (36.4-46.3); Red Blood Count 3.74 M/uL (4.20-5.40); White Blood Count 9.65 K/ul (4.8-10.8)
[2024-10-25 09:57] LABS: Anion Gap 7.0 (3-11); Blood Urea Nitrogen 5.0 mg/dl (6-23); Calcium 6.9 mg/dl (8.6-10.3); Carbon Dioxide 33.0 mmol/L (21-32); Chloride 98.0 mmol/L (98-107); Creatinine Clr Calc Pharmacy 43.7 ml/min; Glucose 82.0 mg/dl (70-99(Fasting)); Magnesium 1.5 mg/dl (1.7-2.4); Potassium 3.1 mmol/L (3.5-5.1); Sodium 138.0 mmol/L (136-145)
--- NOTE | 2024-10-25 14:40 | Hospitalist Progress Note ---
Date of Service October 25, 2024 Assessment & Plan (1) Acute UTI: (2) Dehydration: (3) Hypomagnesemia: (4) Atrial fibrillation with rapid ventricular response: Plan #Metabolic Encephalopathy -alert and orriented x1 at this time Plan: -delirium precautions -treat UTI -stop anticholinergic medications -start maintenance fluids, melatonin for sleep wake cycle #Living Insecurity -patient has dangerous living conditions at home -complex social situation with daughter, unable to do hospice at home at this time due to daughter inability to handle narcotics due to history -this provider has concern for neglect given malnourishment, home living situation, concern expressed in recent documentation about possible diversion of narcotics, possible financial concerns regarding house patient is living in Plan: -discussed with case management, concern next of kind daughter is not able to serve in patients best interests -reported to office of aging, will await guideance on next steps -patient does not have capacity to make medical decisions at this time Long conversation with next of kin Cindy (daughter, number in chart) in regards to recent disconnects in Ms. Johnston care, concerns about patients housing situation and care, and concerns for drug diversion. Daughter was agitated throughout conversation, slow to respond, slurring speech, and did not seem able to grasp any part of the conversation. She did not seem to understand or appreciate the poor living conditions the patient is reportedly living in, denies any history of or current diversion of opioids, denies she ever signed up for home health/hospice services, and sounded mentally compromised throughout conversation on phone. #Atrial fibrillation -With RVR arrival, resolved Plan: -Mg>2, K>4 -Continue Metoprolol 50mg po BID -Was previously on Apixaban 5mg po BID which was held at last admission for GIB - will resume with caution. Patient did have a GIB during her last hospital stay that has since resolved #Elevated troponin -resolved -continue plavix -Continue atorvastatin 40mg po daily -Continues to Metronic for now #Acute Citrobacter Complicated UIT -has confusion and some abdominal pain, disoriented -continue zosyn, await sensitivities #Hypophosphatemia #Hypokalemia #Hypomagnesemia -very concerning for malnutrition or other wasting syndrome -aggressively replenished today #Cachexia -Dietitiant consult appreciated -Thiamine supplementation added due to high refeeding risk #COPD -DuoNebs PRN -Resume Advair and Tiotopium #GERD -Protonix 40mg po daily #Hypothyroid -Continue Synthroid #Hypertension Continue Metoprolol 50mg po BID If needed would resume patient's prior medication Losartan 25mg po daily I spent a total of 60 minutes in direct patient care, including [id number] time with the patient and/or family, reviewing medical records, ordering and reviewing diagnostic tests, and coordinating care with other healthcare providers. This time includes: history taking, physical examination, medical decision making, counseling, ECG interpretation, imaging interpretation, lab interpretation, orders, and education, excluding time spent in the performance of separately billed services. Admission and Anticipated Discharge Date Admission Date: October 24, 2024 Subjective Patient seen and examined at bedside. Patient alert and orriented to self only at this time. States she has some stomach pain. Review of Systems Review of Systems: -unable to determine Physical Exam Physical Exam: Gen: A&O 1, stomach pain, sarcopenia and cachexia noted, mild facial mottling noted HEENT: NCAT, EOMI, not icteric. External ears normal. No rhinorrhea. Moist mucous membranes. Neck: Supple, full range of motion, no observable masses, No meningeal sign. Lungs: No Respiratory distress. CV: RRR, no edema. Abdomen: mild diffuse tenderness to palpatin MSK: No joint swelling, no redness. Skin: No rashes, petechiae, lesions. Normal color per patient. Neuro: Normal Gait, Grossly intact. Results & Data Results & Data Vital Signs (Past 12 Hours) Vital Signs Temp Pulse Pulse Pulse Resp BP Pulse Ox 10/25/24 12:06 36.6 C 89 20 133/79 92 10/25/24 08:17 36.3 C L 96 H 18 132/88 95 10/25/24 04:19 110 H 10/25/24 04:13 10/25/24 04:00 36.8 C 91 H 18 135/84 93 O2 Del Method 10/25/24 12:06 Room Air 10/25/24 08:17 Room Air 10/25/24 04:19 10/25/24 04:13 Room Air 10/25/24 04:00 Room Air Laboratory Results -personally reviewed, no leukocytosis, K of 3.1 replenished, Mg of 1.5, calcium of 6.9, Mg of 1.5 suggestive of malnourishment Medications Administered Acetaminophen (Acetaminophen 325 Mg Tab) 650 mg PO Q4H PRN PRN Reason: Pain or Fever Stop: 11/23/24 04:53 Last Admin: 10/25/24 00:40 Dose: 650 mg Documented By: AES Apixaban (Apixaban 2.5 Mg Tab) 2.5 mg PO BID [facility] Stop: 11/23/24 08:59 Last Admin: 10/25/24 09:11 Dose: 2.5 mg Documented By: Admin: 10/24/24 20:53 Dose: 2.5 mg Documented By: Admin: 10/24/24 08:16 Dose: 2.5 mg Documented By: BOB Atorvastatin Calcium (Atorvastatin 40 Mg Tab) 40 mg PO [facility] Stop: 11/23/24 08:59 Last Admin: 10/25/24 09:11 Dose: 40 mg Documented By: Admin: 10/24/24 08:16 Dose: 40 mg Documented By: BOB Clopidogrel Bisulfate (Clopidogrel Bisulfate 75 Mg Tab) 75 mg PO [facility] Stop: 11/23/24 08:59 Last Admin: 10/25/24 09:11 Dose: 75 mg Documented By: Admin: 10/24/24 08:17 Dose: 75 mg Documented By: BOB Fluticasone/Vilanterol (Fluticasone/Vilanterol 100/25mcg 14 Puffs/Inhaler) 1 puffs INH DAILY [facility] Stop: 11/23/24 08:59 Last Admin: 10/25/24 09:12 Dose: 1 puffs Documented By: Admin: 10/24/24 08:21 Dose: 1 puffs Documented By: BOB Piperacillin Sod/Tazobactam Sod (Zosyn) 4.5 gm in 100 mls @ 25 mls/hr IV Q8H [facility]; Protocol Stop: 11/03/24 05:59 Last Admin: 10/25/24 14:32 Dose: 25 mls/hr Documented By: Infusion: 10/25/24 07:17 Dose: Infused Documented By: Admin: 10/25/24 06:46 Dose: Not Given Documented By: Infusion: 10/25/24 00:41 Dose: 25 mls/hr Documented By: Infusion: 10/24/24 20:57 Dose: 0 mls/hr Documented By: Admin: 10/24/24 20:53 Dose: 25 mls/hr Documented By: Infusion: 10/24/24 18:39 Dose: Infused Documented By: Admin: 10/24/24 13:41 Dose: 25 mls/hr Documented By: Infusion: 10/24/24 12:10 Dose: Infused Documented By: Admin: 10/24/24 07:30 Dose: 25 mls/hr Documented By: BOB Levothyroxine Sodium (Levothyroxine Sodium 25 Mcg Tablet) 25 mcg PO DAILYBB [facility] Stop: 11/23/24 06:29 Last Admin: 10/25/24 06:23 Dose: 25 mcg Documented By: Admin: 10/24/24 08:16 Dose: 25 mcg Documented By: BOB Metoprolol Succinate (Metoprolol Succ 50mg Ext Rel Tab) 50 mg PO BID [facility] Stop: 11/23/24 08:59 Last Admin: 10/25/24 09:11 Dose: 50 mg Documented By: Admin: 10/24/24 20:53 Dose: 50 mg Documented By: Admin: 10/24/24 08:16 Dose: 50 mg Documented By: BOB Ondansetron HCl (Ondansetron Inj 2 Mg/Ml 2 Ml Vial) 4 mg IV Q6H PRN PRN Reason: Nausea And Vomiting Stop: 11/23/24 04:53 Last Admin: 10/25/24 10:47 Dose: 4 mg Documented By: Admin: 10/25/24 00:41 Dose: 4 mg Documented By: YOANA Pantoprazole Sodium (Pantoprazole 40 Mg Tab) 40 mg PO DAILY [facility] Stop: 11/23/24 08:59 Last Admin: 10/25/24 09:11 Dose: 40 mg Documented By: Admin: 10/24/24 08:16 Dose: 40 mg Documented By: BOB Thiamine HCl (Thiamine Hcl 100 Mg Tab) 100 mg PO [facility] Stop: 11/24/24 08:59 Last Admin: 10/25/24 09:12 Dose: 100 mg Documented By: JOSEFINA Umeclidinium Hastings (Umeclidinium [place] 62.5mcg/Blister 7 Puffs/Inhaler) 1 puffs INH [facility]; Protocol Stop: 11/23/24 13:14 Last Admin: 10/25/24 09:12 Dose: 1 puffs Documented By: Admin: 10/24/24 13:39 Dose: 1 puffs Documented By: TYRESE
[2024-10-25] MEDS ORDERED: SODIUM PHOSPHATE 3 MMOL/1 ML INFUSION IV STA (14:51)
[2024-10-25] MEDS: CALCIUM GLUCONATE 1,000 MG/60 ML BAG IV STA (16:07)
[2024-10-25] MEDS: POTASSIUM CHLORIDE CRTAB 20 MEQ TABCR PO STA (16:27)
[2024-10-25] MEDS: SODIUM PHOSPHATE 9 MMOL in SODIUM CHLORIDE 0.9% 250 ML IV ONE (16:27)
[2024-10-25] MEDS: LACTATED RINGER'S 1,000 ML IV SCH (16:32)
[2024-10-25] MEDS: MAGNESIUM SULFATE / D5W 1 GM/100 ML BAG IV SCH (17:47)
[2024-10-25] MEDS: POTASSIUM CHLORIDE / WTR 10 MEQ/100 ML PLCT IV SCH (17:47)
--- NOTE | 2024-10-25 18:00 | Communication Note ---
Discussed case extensively with Ethics. Patient does not have capacity to medical decisions at this time. Daughter who is listed next of kin CINDY GARCIA, per extensive documentation in case management notes and my own assessment, does not appear to have understanding of patients living situation or clinical scenario, and concern that she does not have patients best interests in mind for decision making. Per additional chart review: patient appears to 2 daughters, 1 in 2006, other is Cindy Garcia. Was legally , in 2019. Appears to have brother briefly mentioned in chart, but does not appear close. To best of my ability does not appear to have POLST, living will, or designated healthcare power of criminal attorney. Was given advanced directive information in 2004 but does not appear to have been filled out. Will discuss case with hospital legal manager to help guide next steps. At this time patient is not medically ready for discharge, and I do not believe there is a possible safe discharge plan at this time. Date of Service: October 25, 2024
[2024-10-25] MEDS: BUTT PASTE (ZINC OXIDE 16%) 171 APPLN/57 GM JAR EXT SCH (20:51)
[2024-10-25] MEDS: CIPROFLOXACIN / D5W 400 MG/200 ML BAG IV SCH (20:51)
[2024-10-25] MEDS: MELATONIN 3 MG TAB PO SCH (20:55)
[2024-10-25] MEDS ORDERED: DAPTOmycin 325 MG in SYRINGE 0 ML IV ONE (21:26)
--- NOTE | 2024-10-25 22:05 | Communication Note ---
Date of Service: October 25, 2024 Notified by RN of abnormal blood CS results 2 bottles gram-positive cocci in clusters. MRSA gene detected. AP MRSA bacteremia) Daptomycin course
[2024-10-25] MEDS: ACETAMINOPHEN 500 MG TAB PO SCH (23:00)
[2024-10-25] MEDS: DAPTOmycin 300 MG in SYRINGE 0 ML IV SCH (23:45)
[2024-10-26 07:50] LABS: Hematocrit (blood only) 31.4 % (37.0-47.0); Hemoglobin 10.1 g/dl (12.0-16.0); Mean Corpuscular Hemoglobin 29.9 pg (25.0-34.0); Mean Corpuscular Volume 92.9 fL (80.0-100.0); Platelet Count 179 K/uL (130-400); RDW Standard Deviation 66.4 fL (36.4-46.3); Red Blood Count 3.38 M/uL (4.20-5.40); White Blood Count 9.49 K/ul (4.8-10.8)
[2024-10-26 08:09] LABS: Anion Gap 6.0 (3-11); Blood Urea Nitrogen 4.0 mg/dl (6-23); Calcium 7.2 mg/dl (8.6-10.3); Carbon Dioxide 31.0 mmol/L (21-32); Chloride 101.0 mmol/L (98-107); Creatinine Clr Calc Pharmacy 58.1 ml/min; Glucose 89.0 mg/dl (70-99(Fasting)); Magnesium 1.9 mg/dl (1.7-2.4); Potassium 3.2 mmol/L (3.5-5.1); Sodium 138.0 mmol/L (136-145)
[2024-10-26] MEDS ORDERED: POTASSIUM PHOS 3 MMOL/1 ML INFUSION IV STA (08:37)
[2024-10-26] MEDS: CALCIUM GLUCONATE 1,000 MG/60 ML BAG IV SCH (10:13)
[2024-10-26] MEDS: POTASSIUM CHLORIDE CRTAB 20 MEQ TABCR PO STA (10:19)
[2024-10-26] MEDS: POT PHOSPHATE MONOBASIC W/ SOD TAB PO SCH (10:20)
--- NOTE | 2024-10-26 15:06 | XRay Report ---
SKULL 3 VIEWS CLINICAL HISTORY: MRI clearance. FINDINGS: 3 calvarial radiographs are obtained. Correlation is made with CT of the brain dated 025. There is no radiodense/metallic foreign body seen in the region of the bony orbits. The bony orb its are intact as imaged. The visualized paranasal sinuses appear clear. The imaged calvarium appears intact. A surgical anchor is noted in the right humeral head. There is advanced atherosclerotic calc ification of the carotid bulbs. IMPRESSION: There is no radiodense/metallic foreign body seen in the region of the bony orbits. ACT 112: Negative or not required by law. Electronically signed by: Wilfrido Woodward M.D. 10/26/2024 3:05 PM
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
--- NOTE | 2024-10-26 18:20 | Infectious Disease Consult ---
Date of Service October 26, 2024 Telehealth Information I performed this visit using a real-time telehealth connection between my location and the patients location ([facility]). After connecting through interactive tele-video, patient was identified by name and date of and/or wristband check.Patient (or authorized healthcare vendor representatives) was informed that this was a telemedicine visit and it was being conducted confidentially over secure lines. My office door was closed and no one else was present in the room with me.Patient (or authorized healthcare vendor representatives) provided consent to proceed with the visit, expressed an understanding of privacy and security of the telemedicine visit, and gave permission to have a hospital vendor representatives in the room in order to assist with the visit and to conduct portions of the visit, as needed. I informed the patient (or authorized healthcare vendor representatives) that I reviewed their record and presented the opportunity for them to ask any questions regarding the visit today. The patient agreed to participate. Assessment & Plan (1) Positive blood culture: (2) UTI (urinary tract infection): (3) Weakness generalized: (4) Atrial fibrillation with rapid ventricular response: Plan Without any apparent source for coagulase-negative Staph bacteremia and the absence of any hardware, I would assume that the organism is likely a contaminant. Can continue IV daptomycin for now; however, if the repeat blood culture from today, remains negative after 24 hours, I would recommend stopping daptomycin. I agree with oral Cipro 500 mg twice daily to treat urinary tract infection. I would aim for a total of 7 days. Thank you for consulting Infectious Disease. We will continue to follow. History of Present Illness History of Present Illness Mr. Johnston is a 74-year-old woman with past medical history of HTN, type 2 diabetes, paroxysmal AFib, CAD, COPD with chronic hypoxic respiratory failure on 3 L of oxygen via nasal cannula at home who was admitted to [facility] on 10/24/2024 because of generalized fatigue as well as chest and abdominal pain. She was recently admitted for septic shock secondary to urinary tract infection. On presentation, she was found to be tachycardic, in atrial fibrillation with rapid ventricular response; the rest of the vitals were within normal limits. Her initial workup was mainly impressive for hypokalemia of 2.4, hypomagnesemia of 1.5, UA with more than 50 WBCs and 4+ bacteria, and shortly after admission 2/4 bottles of blood culture came back positive for Staph epidermidis. ID team was consulted for further recommendations and to help guide antibiotic treatment for Staph epidermidis bacteremia. Allergies Allergy/AdvReac Type Severity Reaction Status Date / Time bee venom protein (honey bee) Allergy Severe SWELLING Verified 10/24/24 00:56 SEVERE doxycycline Allergy Intermediate Vomiting Verified 10/24/24 00:56 Home Medications Medication Instructions Recorded Confirmed Type levothyroxine 25 mcg tablet 25 mcg PO DAILY 09/24/24 10/24/24 History metoprolol succinate 50 mg 50 mg PO BID 09/24/24 10/24/24 History tablet,extended release 24 hr nitroglycerin 0.4 mg sublingual 0.4 mg sublingual UD 09/24/24 10/24/24 History tablet pantoprazole 40 mg tablet,delayed 40 mg PO DAILY 09/24/24 10/24/24 History release (Protonix) ipratropium 0.5 mg-albuterol 3 mg 3 ml NEB Q4H PRN shortness of 10/19/24 10/24/24 Rx (2.5 mg base)/3 mL nebulization breath or wheezing #90 mL soln miconazole nitrate 2 % topical 1 applic EXT PRN PRN rash #85 grams 10/19/24 10/24/24 Rx powder (Desenex) ondansetron 4 mg disintegrating 4 mg PO Q6H PRN nausea and 10/19/24 10/24/24 Rx tablet vomiting #10 tabs lorazepam 1 mg tablet (Ativan) 1 mg PO Q6H PRN anxiety #10 tabs 10/20/24 10/24/24 Rx morphine 20 mg/5 mL (4 mg/mL) oral 5 mg (1.25 mL) PO Q2H PRN 10/20/24 10/24/24 Rx solution dyspnea/discomfort/pain #100 mL Patient History Medical History Hypokalemia Depression GERD (gastroesophageal reflux disease) COPD with exacerbation Dyslipidemia, goal LDL below 70 Chronic hypoxic respiratory failure 3L NC chronic CAD (coronary artery disease) 2022 - STEMI w/ RCA interventions Anemia COPD (chronic obstructive pulmonary disease) PAF (paroxysmal atrial fibrillation) HTN (hypertension) Myocardial infarction due to demand ischemia Non-ST elevation [place] (NSTEMI) Macular degeneration Tobacco use disorder Atrial fibrillation Diabetes Surgical History S/P ORIF (open reduction internal fixation) fracture H/O skin graft History of tonsillectomy H/O heart surgery History of cholecystectomy Hx of tubal ligation Social History Smoking Status: Current every day smoker Tobacco Type: Cigarettes Cigarettes Per Day: 5; Second Hand Exposure: No; Do You Dip or Chew Tobacco: No; Hx Alcohol Use: No Hx Substance Use: No Preferred Language: Czech Communication Ability: Effective Plate Inspector Required: No Beliefs That Will Affect Care: None Current Living Situation: Family Current Living Situation Comment: with daughter Feels Safe at Home: Yes Assistive Devices: Bedside Commode, Cane, Oxygen - Continuous, Walker and Wheelchair Review of Systems Negative except for what was mentioned in the H&P. Physical Exam Could not be performed given that the encounter was conducted via TeleMed. Results & Data Vital Signs (Past 12 Hours) Vital Signs Temp Pulse Pulse Pulse Resp BP BP 10/26/24 17:47 36.4 C L 103 H 143/88 H 10/26/24 16:35 10/26/24 15:39 99 H 10/26/24 10:55 36.3 C L 93 H 20 148/110 H 146/104 H 10/26/24 08:49 36.6 C 109 H 20 151/104 H 10/26/24 08:30 105 H Pulse Ox O2 Del Method 10/26/24 17:47 93 Room Air 10/26/24 16:35 Room Air 10/26/24 15:39 10/26/24 10:55 93 Room Air 10/26/24 08:49 93 Room Air 10/26/24 08:30 Laboratory Results Microbiology: 10/24: 2 of 4 bottles of blood culture positive for Staph hominis and 1 of 4 bottles of blood culture positive for Staph epidermidis 10/24: Urine culture positive for Citrobacter freundii 10/26: 2 sets of blood culture pending Diagnostic Findings CTA chest on 10/24: 1. No evidence of pulmonary embolism- stable 2. Panacinar emphysematous changes in bilateral lungs-stable 3. A thin walled simple cyst of size [id number] in right lower lobe- stable 4. Right minimal and left mild pleural effusion with adjacent basal atelectasis. New finding. CTA abdomen pelvis on 10/24: 1. Mild bilateral pleural effusion with basal subsegmental collapse of both lower lobes are seen - increased on either side and no interval development of right side. 2. Diffuse atherosclerotic calcification is noted involving aorta iliac arteries. -stable. 3. 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 4. Stable right renal cortical cyst. 5. Stable right side DJ stent. 6. Previously noted hyperdense material in rectum is not seen in current scan 7. Severe degenerative changes involving visualized spine. 8. Compression collapse with anterior wedging and sclerosis of [id number] body with about 20-25% reduction of vertebral body height.-stable. 9. Hypodense oval shaped lesion in left S2 neural foramen. Possibility of tarlov cyst. Advised further evaluation with MRI (2) UTI (urinary tract infection) Hematuria presence: without hematuria Urinary tract infection type: acute cystitis Qualified Code(s): N30.00 - Acute cystitis without hematuria
[2024-10-26] MEDS: CIPROFLOXACIN 500 MG TAB PO SCH (21:51)
[2024-10-26] MEDS: LORazepam 0.5 MG TAB PO STA (22:19)
[2024-10-27] MEDS: LEVALBUTEROL HCL 0.63 MG/3 ML NEB NEB STA (02:06)
[2024-10-27 08:02] LABS: Hematocrit (blood only) 34.8 % (37.0-47.0); Hemoglobin 10.9 g/dl (12.0-16.0); Mean Corpuscular Hemoglobin 29.5 pg (25.0-34.0); Mean Corpuscular Volume 94.1 fL (80.0-100.0); Platelet Count 204 K/uL (130-400); RDW Standard Deviation 67.9 fL (36.4-46.3); Red Blood Count 3.70 M/uL (4.20-5.40); White Blood Count 10.92 K/ul (4.8-10.8)
[2024-10-27 08:30] LABS: Anion Gap 10.0 (3-11); Blood Urea Nitrogen 6.0 mg/dl (6-23); Calcium 8.5 mg/dl (8.6-10.3); Carbon Dioxide 29.0 mmol/L (21-32); Chloride 100.0 mmol/L (98-107); Creatinine Clr Calc Pharmacy 47.7 ml/min; Glucose 99.0 mg/dl (70-99(Fasting)); Magnesium 1.7 mg/dl (1.7-2.4); Potassium 3.9 mmol/L (3.5-5.1); Sodium 139.0 mmol/L (136-145)
[2024-10-27] MEDS: MoRPHine SULFATE 2 MG/ML CARP IV PRN (09:04)
--- NOTE | 2024-10-27 09:28 | XRay Report ---
XR chest 1V portable CLINICAL HISTORY: shortness of breath COMPARISON STUDY: 10/24/2024 FINDINGS: Single view portable chest demonstrates slight increased opacity in the left lung base susp icious for developing infiltrate/pneumonia. Minor blunting of the left costophrenic angle. No additional changes have occurred. Cardiomegaly and atherosclerotic aortic ectasia redemonstrated. IMPRESSION: New, small left basilar infiltrate. ACT 112: Negative or not required by law. Electronically signed by: Simi Miller M.D. 10/27/2024 9:27 AM
[2024-10-27] MEDS: GADOBUTROL 65ML VIAL IV ONE (09:43)
--- NOTE | 2024-10-27 10:07 | Magnetic Resonance Report ---
MR brain wo/w con CLINICAL HISTORY: MRSA bacteremia, AMS sepsis with altered mental status COMPARISON STUDY: 09/27/2024 TECHNIQUE: Multiplanar MRI of the brain was performed using various pulse sequences before and after 4.5 cc of intravenous gadolinium contrast FINDINGS: No significant interval changes have occurred since the prior examination. No acute intracranial process identified. No intra-axial or extra-axial fluid collection, hemorrhage, or mass. Senescent atrophy and small vessel insufficiency changes are redemonstrated. There is no ev idence of an acute stroke. There is no abnormal gadolinium enhancement. There is persistent fluid in the mastoid air cells. The sella is enlarged and CSF filled. IMPRESSION: Essentially stable examination with no acute intracranial process and no abnormal gadoli nium enhancement. Bilateral fluid in the mastoid air cells is redemonstrated. Senescent atrophy and small vessel insufficiency changes are once again noted. ACT 112: Negative or not required by law. Electronically signed by: Simi Miller M.D. 10/27/2024 10:06 AM
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
[2024-10-28 07:49] LABS: Hematocrit (blood only) 33.4 % (37.0-47.0); Hemoglobin 10.2 g/dl (12.0-16.0); Mean Corpuscular Hemoglobin 29.0 pg (25.0-34.0); Mean Corpuscular Volume 94.9 fL (80.0-100.0); Platelet Count 207 K/uL (130-400); RDW Standard Deviation 69.9 fL (36.4-46.3); Red Blood Count 3.52 M/uL (4.20-5.40); White Blood Count 9.64 K/ul (4.8-10.8)
[2024-10-28 08:09] LABS: Anion Gap 6.0 (3-11); Blood Urea Nitrogen 7.0 mg/dl (6-23); Calcium 8.4 mg/dl (8.6-10.3); Carbon Dioxide 31.0 mmol/L (21-32); Chloride 100.0 mmol/L (98-107); Creatinine Clr Calc Pharmacy 39.1 ml/min; Glucose 87.0 mg/dl (70-99(Fasting)); Magnesium 1.5 mg/dl (1.7-2.4); Potassium 3.7 mmol/L (3.5-5.1); Sodium 137.0 mmol/L (136-145)
[2024-10-28] MEDS: OPTIRAY 320 100ml IV ONE (09:35)
[2024-10-28] MEDS: MAGNESIUM SULFATE / D5W 1 GM/100 ML BAG IV SCH (10:29)
--- NOTE | 2024-10-28 10:56 | CT Scan Report ---
ABDOMEN AND PELVIS CT WITH IV CONTRAST CT DOSE: 376.02 mGy.cm HISTORY: ongoing abdominal pain TECHNIQUE: Multiaxial CT images of the abdomen and pelvis were performed following the IV administrat ion of 90 cc of Optiray, A dose lowering technique was utilized adhering to the principles of ALARA. COMPARISON STUDY: 10/24/2024 FINDINGS: There are moderate bilateral pleural effusions, increased in size. There is adjacent compre ssive atelectasis of the lower lung lobes. ABDOMEN: There is hepatic congestion and prominence of the IVC suggesting CHF. Spleen, pancreas, and adrenal glands are unremarkable. There is cortical scarring in both kidneys. Stable small renal cysts . No hydronephrosis. There is a well-positioned right ureteral stents. There is diffuse mixed calcifi ed and noncalcified plaque at the aorta which causes mild luminal narrowing of the aorta. There is a stable infrarenal abdominal aortic aneurysm measuring 3.3 cm. Pelvis: Helms catheter is present and the urinary bladder is empty. There is mild retained liquid sto ol and air is minimal wall thickening of the colon, suggesting mild colitis. No other bowel inflammat ion or obstruction seen. No free fluid, free air, or abscess. No enlarged adenopathy. Osseous structures: There is osteopenia. There is a stable severe vertebral body compression fracture at T11. Stable scoliosis and diffuse spinal degenerative changes. IMPRESSION: 1. Findings suggesting mild colitis and diarrhea. 2. No other acute findings seen at the abdomen or pelvis. 3. Increased bilateral pleural effusions. 4. Otherwise as described. ACT 112: Negative or not required by law. The above report was generated using voice recognition software. It may contain grammatical, syntax o r spelling errors. Electronically signed by: Theodore Villegas M.D. 10/28/2024 10:54 AM
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
[2024-10-28] MEDS: ADVANCED PROBIOTIC 625 MG CAPSULE PO SCH (18:25)
[2024-10-29 07:27] LABS: Hematocrit (blood only) 27.8 % (37.0-47.0); Hemoglobin 9.0 g/dl (12.0-16.0); Mean Corpuscular Hemoglobin 30.0 pg (25.0-34.0); Mean Corpuscular Volume 92.7 fL (80.0-100.0); Platelet Count 208 K/uL (130-400); RDW Standard Deviation 65.1 fL (36.4-46.3); Red Blood Count 3.00 M/uL (4.20-5.40); White Blood Count 8.41 K/ul (4.8-10.8)
[2024-10-29 07:58] LABS: Anion Gap 3.0 (3-11); Blood Urea Nitrogen 6.0 mg/dl (6-23); Calcium 7.9 mg/dl (8.6-10.3); Carbon Dioxide 32.0 mmol/L (21-32); Chloride 101.0 mmol/L (98-107); Creatinine Clr Calc Pharmacy 44.2 ml/min; Glucose 86.0 mg/dl (70-99(Fasting)); Magnesium 1.8 mg/dl (1.7-2.4); Potassium 3.3 mmol/L (3.5-5.1); Sodium 136.0 mmol/L (136-145)
[2024-10-29] MEDS: POTASSIUM CHLORIDE CRTAB 20 MEQ TABCR PO STA (09:23)
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
[2024-10-30 06:59] LABS: Hematocrit (blood only) 28.1 % (37.0-47.0); Hemoglobin 8.8 g/dl (12.0-16.0); Mean Corpuscular Hemoglobin 29.9 pg (25.0-34.0); Mean Corpuscular Volume 95.6 fL (80.0-100.0); Platelet Count 204 K/uL (130-400); RDW Standard Deviation 67.9 fL (36.4-46.3); Red Blood Count 2.94 M/uL (4.20-5.40); White Blood Count 7.33 K/ul (4.8-10.8)
[2024-10-30 07:48] LABS: Anion Gap 3.0 (3-11); Blood Urea Nitrogen 6.0 mg/dl (6-23); Calcium 8.0 mg/dl (8.6-10.3); Carbon Dioxide 31.0 mmol/L (21-32); Chloride 102.0 mmol/L (98-107); Creatinine Clr Calc Pharmacy 51.7 ml/min; Glucose 106.0 mg/dl (70-99(Fasting)); Magnesium 1.5 mg/dl (1.7-2.4); Potassium 4.0 mmol/L (3.5-5.1); Sodium 136.0 mmol/L (136-145)
[2024-10-30] MEDS: CALCIUM GLUCONATE 1,000 MG/60 ML BAG IV ONE (09:31)
[2024-10-30] MEDS: MAGNESIUM SULFATE / D5W 1 GM/100 ML BAG IV SCH (09:31)
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
[2024-10-31 08:39] LABS: Hematocrit (blood only) 30.1 % (37.0-47.0); Hemoglobin 9.4 g/dl (12.0-16.0); Mean Corpuscular Hemoglobin 30.0 pg (25.0-34.0); Mean Corpuscular Volume 96.2 fL (80.0-100.0); Platelet Count 232 K/uL (130-400); RDW Standard Deviation 70.9 fL (36.4-46.3); Red Blood Count 3.13 M/uL (4.20-5.40); White Blood Count 8.11 K/ul (4.8-10.8)
[2024-10-31 09:23] LABS: Anion Gap 4.0 (3-11); Blood Urea Nitrogen 8.0 mg/dl (6-23); Calcium 7.9 mg/dl (8.6-10.3); Carbon Dioxide 31.0 mmol/L (21-32); Chloride 100.0 mmol/L (98-107); Creatinine Clr Calc Pharmacy 43.2 ml/min; Glucose 81.0 mg/dl (70-99(Fasting)); Magnesium 1.7 mg/dl (1.7-2.4); Potassium 3.8 mmol/L (3.5-5.1); Sodium 135.0 mmol/L (136-145)
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
[2024-11-01 07:08] LABS: Hematocrit (blood only) 29.9 % (37.0-47.0); Hemoglobin 9.2 g/dl (12.0-16.0); Mean Corpuscular Hemoglobin 29.5 pg (25.0-34.0); Mean Corpuscular Volume 95.8 fL (80.0-100.0); Platelet Count 238 K/uL (130-400); RDW Standard Deviation 71.4 fL (36.4-46.3); Red Blood Count 3.12 M/uL (4.20-5.40); White Blood Count 7.80 K/ul (4.8-10.8)
[2024-11-01 07:31] LABS: Anion Gap 3.0 (3-11); Blood Urea Nitrogen 10.0 mg/dl (6-23); Calcium 7.8 mg/dl (8.6-10.3); Carbon Dioxide 32.0 mmol/L (21-32); Chloride 102.0 mmol/L (98-107); Creatinine Clr Calc Pharmacy 43.2 ml/min; Glucose 91.0 mg/dl (70-99(Fasting)); Magnesium 1.6 mg/dl (1.7-2.4); Potassium 3.9 mmol/L (3.5-5.1); Sodium 137.0 mmol/L (136-145)
[2024-11-01] MEDS: MAGNESIUM SULFATE / D5W 1 GM/100 ML BAG IV SCH (09:30)
--- NOTE | 2024-11-01 17:30 | Hospitalist Progress Note ---
Date of Service November 01, 2024 Assessment & Plan (1) Acute UTI: (2) Dehydration: (3) Hypomagnesemia: (4) Atrial fibrillation with rapid ventricular response: Plan #Metabolic Encephalopathy #Dementia -delirium precautions -last day of abx, got 7/7 days -stop anticholinergic medications -melatonin for sleep wake cycle #Colitis, resolved -unclear reason, could be 2/2 abx -c. diff negative #Living Insecurity -patient has dangerous living conditions at home -complex social situation with daughter, unable to do hospice at home at this time due to daughter inability to handle narcotics due to history -this provider has concern for neglect given malnourishment, home living situation, concern expressed in recent documentation about possible diversion of narcotics, possible financial concerns regarding house patient is living in Plan: -discussed with case management, concern next of kind daughter is not able to serve in patients best interests -discussed at length with Office of Aging today, per their recommendations Cindy can consent for SNF and then patient will need buttermaker helper care as she cannot return home or be safely discharged home in the care of Cindy -discussed with legal who discussed case with other members of team, recommend searching for brother to assist with decision making -patient does not have a safe discharge plan at this time -patient does not have capacity to make medical decisions at this time #Atrial fibrillation -With RVR arrival, resolved Plan: -Mg>2, K>4 -Continue Metoprolol 50mg po BID -Was previously on Apixaban 5mg po BID which was held at last admission for GIB #Elevated troponin -resolved -continue plavix -Continue atorvastatin 40mg po daily -Continues to Metronic for now #Acute Citrobacter Complicated UIT, resolved -finish abx x7 days (day 7/7) #Hypophosphatemia, resolving #Hypokalemia #Hypomagnesemia, resolving #Refeeding Syndrome, resolved -refeeding syndrome likely 2/2 very poor nutrition, resolving #Cachexia -Dietitian consult appreciated -Thiamine supplementation added due to high refeeding risk #COPD -DuoNebs PRN -Resume Advair and Tiotopium #GERD -Protonix 40mg po daily #Hypothyroid -Continue Synthroid #Hypertension -Continue Metoprolol 50mg po BID I spent a total of 40 minutes in direct patient care, including [id number] time with the patient and/or family, reviewing medical records, ordering and reviewing diagnostic tests, and coordinating care with other healthcare providers. This time includes: history taking, physical examination, medical decision making, counseling, ECG interpretation, imaging interpretation, lab interpretation, orders, and education, excluding time spent in the performance of separately billed services. Admission and Anticipated Discharge Date Admission Date: October 24, 2024 Subjective Patient seen and examiend at bedside. Patient comfortable this morning. Review of Systems Review of Systems: CONSTITUTIONAL: Patient denies fevers, chills, sweats and weight changes. EYES: Patient denies any visual symptoms. EARS, NOSE, AND THROAT: No difficulties with hearing. No symptoms of rhinitis or sore throat. CARDIOVASCULAR: Patient denies chest pains, palpitations, orthopnea and paroxysmal nocturnal dyspnea. RESPIRATORY: No dyspnea on exertion, no wheezing or cough. GI: abdominal pain : No urinary hesitancy or dribbling. No nocturia or urinary frequency. No abnormal urethral discharge. MUSCULOSKELETAL: No myalgias or arthralgias. NEUROLOGIC: No chronic headaches, no seizures. Patient denies numbness, tingling or weakness. PSYCHIATRIC: Patient denies problems with mood disturbance. No problems with anxiety. ENDOCRINE: No excessive urination or excessive thirst. DERMATOLOGIC: Patient denies any rashes or skin changes. Physical Exam Physical Exam: Gen: A&O 1, sarcopenia and cachexia noted HEENT: NCAT, EOMI, not icteric. External ears normal. No rhinorrhea. Moist mucous membranes. Neck: Supple, full range of motion, no observable masses, No meningeal sign. Lungs: No Respiratory distress. CV: RRR, no edema. Abdomen: mild diffuse tenderness to palpation MSK: No joint swelling, no redness. Skin: No rashes, petechiae, lesions. Normal color per patient. Neuro: Normal Gait, Grossly intact. Results & Data Results & Data Vital Signs (Past 12 Hours) Vital Signs Temp Pulse Resp BP BP Pulse Ox O2 Del Method 11/01/24 15:00 36.3 C L 57 L 18 147/73 H 99 Nasal Cannula 11/01/24 07:45 Nasal Cannula 11/01/24 07:17 36.3 C L 53 L 20 159/96 H 100 Nasal Cannula O2 Flow Rate 11/01/24 15:00 2.0 11/01/24 07:45 2 11/01/24 07:17 2.0 Laboratory Results -personally reviewed, WBC stable, Mg 1.6 and replenished Medications Administered Acetaminophen (Acetaminophen 500 Mg Tab) 1,000 mg PO Q8 GELACIO Stop: 11/24/24 21:59 Last Admin: 11/01/24 13:18 Dose: 1,000 mg Documented By: Admin: 11/01/24 05:39 Dose: 1,000 mg Documented By: Admin: 10/31/24 20:16 Dose: 1,000 mg Documented By: Admin: 10/31/24 14:13 Dose: 1,000 mg Documented By: Admin: 10/31/24 06:13 Dose: 1,000 mg Documented By: Admin: 10/30/24 21:15 Dose: 1,000 mg Documented By: signal mechanic: 10/30/24 13:04 Dose: 1,000 mg Documented By: GETTERING OPERATOR Admin: 10/30/24 05:32 Dose: 1,000 mg Documented By: signal mechanic: 10/29/24 21:02 Dose: 1,000 mg Documented By: signal mechanic: 10/29/24 14:14 Dose: Not Given Documented By: GETTERING OPERATOR Admin: 10/29/24 06:03 Dose: 1,000 mg Documented By: Admin: 10/28/24 22:34 Dose: 1,000 mg Documented By: Admin: 10/28/24 13:59 Dose: 1,000 mg Documented By: Admin: 10/28/24 05:57 Dose: 1,000 mg Documented By: Admin: 10/27/24 22:00 Dose: 1,000 mg Documented By: Admin: 10/27/24 13:22 Dose: 1,000 mg Documented By: Admin: 10/27/24 06:35 Dose: 1,000 mg Documented By: Admin: 10/26/24 21:51 Dose: 1,000 mg Documented By: Admin: 10/26/24 14:29 Dose: 1,000 mg Documented By: Admin: 10/26/24 05:15 Dose: 1,000 mg Documented By: Admin: 10/25/24 23:00 Dose: Not Given Documented By: MAXI Apixaban (Apixaban 2.5 Mg Tab) 2.5 mg PO BID GELACIO Stop: 11/23/24 08:59 Last Admin: 11/01/24 07:42 Dose: 2.5 mg Documented By: Admin: 10/31/24 20:16 Dose: 2.5 mg Documented By: Admin: 10/31/24 08:09 Dose: 2.5 mg Documented By: Admin: 10/30/24 21:16 Dose: 2.5 mg Documented By: signal mechanic: 10/30/24 07:58 Dose: 2.5 mg Documented By: GETTERING OPERATOR Admin: 10/29/24 21:03 Dose: 2.5 mg Documented By: signal mechanic: 10/29/24 09:24 Dose: 2.5 mg Documented By: Admin: 10/28/24 22:47 Dose: 2.5 mg Documented By: Admin: 10/28/24 08:28 Dose: 2.5 mg Documented By: Admin: 10/27/24 22:00 Dose: 2.5 mg Documented By: Admin: 10/27/24 09:07 Dose: 2.5 mg Documented By: Admin: 10/26/24 21:51 Dose: 2.5 mg Documented By: Admin: 10/26/24 10:21 Dose: 2.5 mg Documented By: Admin: 10/25/24 20:56 Dose: 2.5 mg Documented By: Admin: 10/25/24 09:11 Dose: 2.5 mg Documented By: Admin: 10/24/24 20:53 Dose: 2.5 mg Documented By: Admin: 10/24/24 08:16 Dose: 2.5 mg Documented By: BOB(2) Atorvastatin Calcium (Atorvastatin 40 Mg Tab) 40 mg PO [facility] Stop: 11/23/24 08:59 Last Admin: 11/01/24 07:42 Dose: 40 mg Documented By: Admin: 10/31/24 08:10 Dose: 40 mg Documented By: Admin: 10/25/24 09:11 Dose: 40 mg Documented By: Admin: 10/24/24 08:16 Dose: 40 mg Documented By: BOB(2) Clopidogrel Bisulfate (Clopidogrel Bisulfate 75 Mg Tab) [facility] [place] Stop: 11/23/24 08:59 Last Admin: 11/01/24 07:41 Dose: 75 mg Documented By: Admin: 10/31/24 08:10 Dose: 75 mg Documented By: Admin: 10/30/24 07:58 Dose: 75 mg Documented By: Admin: 10/29/24 09:25 Dose: 75 mg Documented By: Admin: 10/28/24 08:27 Dose: 75 mg Documented By: Admin: 10/27/24 09:07 Dose: 75 mg Documented By: Admin: 10/26/24 10:20 Dose: 75 mg Documented By: Admin: 10/25/24 09:11 Dose: 75 mg Documented By: Admin: 10/24/24 08:17 Dose: 75 mg Documented By: AMS(2) Fluticasone/Vilanterol (Fluticasone/Vilanterol 100/25mcg 14 Puffs/Inhaler) 1 puffs INH DAILY GELACIO Stop: 11/23/24 08:59 Last Admin: 11/01/24 07:43 Dose: 1 puffs Documented By: Admin: 10/31/24 08:09 Dose: 1 puffs Documented By: Admin: 10/30/24 07:59 Dose: 1 puffs Documented By: Admin: 10/29/24 09:25 Dose: 1 puffs Documented By: Admin: 10/28/24 08:28 Dose: 1 puffs Documented By: Admin: 10/27/24 09:08 Dose: 1 puffs Documented By: Admin: 10/26/24 10:26 Dose: 1 puffs Documented By: Admin: 10/25/24 09:12 Dose: 1 puffs Documented By: Admin: 10/24/24 08:21 Dose: 1 puffs Documented By: BOB(2) Levothyroxine Sodium (Levothyroxine Sodium 25 Mcg Tablet) 25 mcg PO DAILYBB GELACIO Stop: 11/23/24 06:29 Last Admin: 11/01/24 05:39 Dose: 25 mcg Documented By: Admin: 10/31/24 06:13 Dose: 25 mcg Documented By: Admin: 10/30/24 05:32 Dose: 25 mcg Documented By: signal mechanic: 10/29/24 06:03 Dose: 25 mcg Documented By: Admin: 10/28/24 05:57 Dose: 25 mcg Documented By: Admin: 10/27/24 06:35 Dose: 25 mcg Documented By: Admin: 10/26/24 05:17 Dose: 25 mcg Documented By: Admin: 10/25/24 06:23 Dose: 25 mcg Documented By: Admin: 10/24/24 08:16 Dose: 25 mcg Documented By: AMS(2) Melatonin (Melatonin 3 Mg Tab) 3 mg PO HS GELACIO Stop: 11/24/24 20:59 Last Admin: 10/31/24 20:16 Dose: 3 mg Documented By: Admin: 10/30/24 21:15 Dose: 3 mg Documented By: signal mechanic: 10/29/24 21:02 Dose: 3 mg Documented By: signal mechanic: 10/28/24 22:34 Dose: 3 mg Documented By: Admin: 10/27/24 22:00 Dose: 3 mg Documented By: Admin: 10/26/24 21:51 Dose: 3 mg Documented By: Admin: 10/25/24 20:55 Dose: 3 mg Documented By: MAXI Metoprolol Succinate (Metoprolol Succ 50mg Ext Rel Tab) 50 mg PO BID GELACIO Stop: 11/23/24 08:59 Last Admin: 11/01/24 07:42 Dose: Not Given Documented By: Admin: 10/31/24 20:16 Dose: 50 mg Documented By: Admin: 10/31/24 08:04 Dose: Not Given Documented By: Admin: 10/30/24 21:24 Dose: Not Given Documented By: signal mechanic: 10/30/24 07:57 Dose: 50 mg Documented By: GETTERING OPERATOR Admin: 10/29/24 21:03 Dose: 50 mg Documented By: signal mechanic: 10/29/24 09:24 Dose: 50 mg Documented By: GETTERING OPERATOR Admin: 10/28/24 22:47 Dose: 50 mg Documented By: Admin: 10/28/24 08:27 Dose: 50 mg Documented By: Admin: 10/27/24 22:00 Dose: 50 mg Documented By: Admin: 10/27/24 09:07 Dose: 50 mg Documented By: Admin: 10/26/24 21:51 Dose: 50 mg Documented By: Admin: 10/26/24 10:21 Dose: 50 mg Documented By: Admin: 10/25/24 20:56 Dose: 50 mg Documented By: Admin: 10/25/24 09:11 Dose: 50 mg Documented By: Admin: 10/24/24 20:53 Dose: 50 mg Documented By: Admin: 10/24/24 08:16 Dose: 50 mg Documented By: BOB(2) Morphine Sulfate (Morphine Sulfate 2 Mg/Ml Carp) 2 mg IV Q4 PRN PRN Reason: Breakthrough Pain Stop: 11/08/24 18:12 Last Admin: 10/31/24 20:31 Dose: 2 mg Documented By: Admin: 10/27/24 09:04 Dose: 2 mg Documented By: ALTEHA Ondansetron HCl (Ondansetron Inj 2 Mg/Ml 2 Ml Vial) 4 mg IV Q6H PRN PRN Reason: Nausea And Vomiting Stop: 11/23/24 04:53 Last Admin: 10/29/24 15:14 Dose: 4 mg Documented By: Admin: 10/26/24 17:43 Dose: 4 mg Documented By: Admin: 10/25/24 10:47 Dose: 4 mg Documented By: Admin: 10/25/24 00:41 Dose: 4 mg Documented By: YOANA Oxycodone HCl (Oxycodone Hcl Ir 5 Mg Tab (Immediate Release)) 5 mg PO Q4 PRN PRN Reason: Severe Pain (Scale 7, 8, 9,10) Stop: 11/08/24 18:12 Last Admin: 11/01/24 16:28 Dose: 5 mg Documented By: Admin: 10/28/24 18:01 Dose: 5 mg Documented By: Admin: 10/25/24 20:57 Dose: 5 mg Documented By: MAXI Pantoprazole Sodium (Pantoprazole 40 Mg Tab) 40 mg PO DAILY GELACIO Stop: 11/23/24 08:59 Last Admin: 11/01/24 07:42 Dose: 40 mg Documented By: Admin: 10/31/24 08:09 Dose: 40 mg Documented By: Admin: 10/30/24 07:57 Dose: 40 mg Documented By: Admin: 10/29/24 09:24 Dose: 40 mg Documented By: Admin: 10/28/24 08:27 Dose: 40 mg Documented By: Admin: 10/27/24 09:08 Dose: 40 mg Documented By: Admin: 10/26/24 10:20 Dose: 40 mg Documented By: RLJuvenal Admin: 10/25/24 09:11 Dose: 40 mg Documented By: Admin: 10/24/24 08:16 Dose: 40 mg Documented By: BOB(2) Petrolatum (Butt Paste (Zinc Oxide 16%) 171 Appln/57 Gm Jar) 1 appln EXT QID GELACIO Stop: 11/24/24 19:19 Last Admin: 11/01/24 16:28 Dose: 1 appln Documented By: Admin: 11/01/24 12:54 Dose: 1 appln Documented By: Admin: 11/01/24 07:43 Dose: 1 appln Documented By: Admin: 10/31/24 20:17 Dose: 1 appln Documented By: Admin: 10/31/24 17:39 Dose: Not Given Documented By: Admin: 10/31/24 14:13 Dose: 1 appln Documented By: Admin: 10/31/24 08:11 Dose: 1 appln Documented By: Admin: 10/30/24 21:20 Dose: 1 appln Documented By: signal mechanic: 10/30/24 16:02 Dose: 1 appln Documented By: GETTERING OPERATOR Admin: 10/30/24 12:05 Dose: 1 appln Documented By: GETTERING OPERATOR Admin: 10/30/24 07:59 Dose: 1 appln Documented By: GETTERING OPERATOR Admin: 10/29/24 21:04 Dose: 1 appln Documented By: signal mechanic: 10/29/24 14:58 Dose: 1 appln Documented By: GETTERING OPERATOR Admin: 10/29/24 14:14 Dose: 1 appln Documented By: GETTERING OPERATOR Admin: 10/29/24 09:35 Dose: 1 appln Documented By: GETTERING OPERATOR Admin: 10/28/24 22:48 Dose: 1 appln Documented By: Admin: 10/28/24 17:04 Dose: 1 appln Documented By: Admin: 10/28/24 14:00 Dose: 1 appln Documented By: Admin: 10/28/24 10:30 Dose: 1 appln Documented By: Admin: 10/27/24 22:00 Dose: 1 appln Documented By: Admin: 10/27/24 16:06 Dose: 1 appln Documented By: Admin: 10/27/24 13:16 Dose: 1 appln Documented By: Admin: 10/27/24 10:14 Dose: 1 appln Documented By: Admin: 10/26/24 21:52 Dose: 1 appln Documented By: Admin: 10/26/24 17:29 Dose: 1 appln Documented By: Admin: 10/26/24 14:29 Dose: 1 appln Documented By: Admin: 10/26/24 10:38 Dose: 1 appln Documented By: Admin: 10/25/24 20:51 Dose: 1 appln Documented By: MAXI Thiamine HCl (Thiamine Hcl 100 Mg Tab) 100 mg PO QAM [facility] Stop: 11/24/24 08:59 Last Admin: 11/01/24 07:42 Dose: 100 mg Documented By: Admin: 10/31/24 08:10 Dose: 100 mg Documented By: Admin: 10/30/24 07:58 Dose: 100 mg Documented By: Admin: 10/29/24 09:23 Dose: 100 mg Documented By: Admin: 10/28/24 08:28 Dose: 100 mg Documented By: Admin: 10/27/24 09:07 Dose: 100 mg Documented By: Admin: 10/26/24 10:21 Dose: 100 mg Documented By: Admin: 10/25/24 09:12 Dose: 100 mg Documented By: [facility] [place] Umeclidinium [place] (Umeclidinium [place] 62.5mcg/Blister 7 Puffs/Inhaler) 1 puffs INH [facility]; Protocol Stop: 11/23/24 13:14 Last Admin: 11/01/24 09:30 Dose: 1 puffs Documented By: Admin: 10/31/24 08:09 Dose: 1 puffs Documented By: Admin: 10/30/24 07:59 Dose: 1 puffs Documented By: GETTERING OPERATOR Admin: 10/29/24 09:25 Dose: 1 puffs Documented By: GETTERING OPERATOR Admin: 10/28/24 08:28 Dose: 1 puffs Documented By: Admin: 10/27/24 09:08 Dose: 1 puffs Documented By: Admin: 10/26/24 10:27 Dose: 1 puffs Documented By: Admin: 10/25/24 09:12 Dose: 1 puffs Documented By: Admin: 10/24/24 13:39 Dose: 1 puffs Documented By: TYRESE
[2024-11-01 21:07] VITALS: TEMP 97.7
[2024-11-02 07:35] LABS: Hematocrit (blood only) 30.1 % (37.0-47.0); Hemoglobin 9.4 g/dl (12.0-16.0); Mean Corpuscular Hemoglobin 29.9 pg (25.0-34.0); Mean Corpuscular Volume 95.9 fL (80.0-100.0); Platelet Count 249 K/uL (130-400); RDW Standard Deviation 69.4 fL (36.4-46.3); Red Blood Count 3.14 M/uL (4.20-5.40); White Blood Count 6.88 K/ul (4.8-10.8)
[2024-11-02 07:59] LABS: Anion Gap 3.0 (3-11); Blood Urea Nitrogen 7.0 mg/dl (6-23); Calcium 7.5 mg/dl (8.6-10.3); Carbon Dioxide 31.0 mmol/L (21-32); Chloride 104.0 mmol/L (98-107); Creatinine Clr Calc Pharmacy 60.1 ml/min; Glucose 99.0 mg/dl (70-99(Fasting)); Magnesium 1.9 mg/dl (1.7-2.4); Potassium 3.7 mmol/L (3.5-5.1); Sodium 138.0 mmol/L (136-145)
--- NOTE | 2024-11-02 11:48 | Hospitalist Progress Note ---
Date of Service November 02, 2024 Assessment & Plan (1) Acute metabolic encephalopathy: Plan: Improved (2) Dementia, vascular with delirium: (3) Failure to thrive in adult: (4) Atrial fibrillation with rapid ventricular response: Plan: Rate controlled (5) Demand ischemia: (6) Electrolyte abnormality: Plan: Improved (7) Complicated urinary tract infection: Plan: Completed antibiotics (8) Severe protein-calorie malnutrition: (9) Chronic hypoxic respiratory failure: (10) COPD with emphysema: (11) Positive blood culture: Plan: Contaminant (12) Diabetes: (13) Refeeding syndrome: Plan Patient essentially at baseline. Continue with current care Continue to pursue placement, accepted at [facility] insurance authorization pending Admission and Anticipated Discharge Date Admission Date: October 24, 2024 Subjective No acute issues overnight. Patient denies any chest pain or shortness of breath. Physical Exam Physical Exam: Constitutional: Alert, frail, weak HEENT: Mucous membranes moist. Lungs: Decreased breath sounds CV: S1-S2, irregular Abdomen: Soft, nontender, nondistended Extremities: No significant edema Neuro: No focal deficits Psych: Cooperative, impaired memory and cognition Results & Data Results & Data Vital Signs (Past 12 Hours) Vital Signs Temp Pulse Resp BP Pulse Ox O2 Del Method O2 Flow Rate 11/02/24 07:24 Nasal Cannula 2 11/02/24 07:05 36.5 C 47 L 18 157/80 H 97 Room Air Diagnostic Findings Reviewed imaging, laboratory and diagnostic studies. Pertinent findings as below. Hemoglobin 9.4 Electrolytes stable Creatinine 0.61
[2024-11-02] MEDS: ONDANSETRON 4 MG OD TAB PO PRN (15:34)
[2024-11-03 08:04] VITALS: BP 171/98; PULSE 83; RESP 18; O2SAT 98
--- NOTE | 2024-11-03 13:22 | Discharge Summary ---
Discharge Summary Date of Service November 03, 2024 Principal Dx & Hospital Course #1 = Principal Diagnosis (1) Acute metabolic encephalopathy: Improved (2) Dementia, vascular with delirium: (3) Failure to thrive in adult: (4) Atrial fibrillation with rapid ventricular response: Rate controlled (5) Demand ischemia: (6) Electrolyte abnormality: Improved (7) Complicated urinary tract infection: Completed antibiotics (8) Severe protein-calorie malnutrition: (9) Chronic hypoxic respiratory failure: (10) COPD with emphysema: (11) Positive blood culture: Contaminant (12) Diabetes: (13) Refeeding syndrome: Plan Patient 74-year-old female with fairly significant dementia and end-stage COPD has been in and out of the hospital multiple times over the past few months. Return to the hospital with significant encephalopathy essentially due to poor care at home and failure to thrive at home and living in a deplorable home situation. In the last hospitalization it was planned that the patient would be going home with hospice with goals of care to keep her comfortable at home. However soon as she got home daughter had discontinued hospice care. Patient was admitted to hospital. She was given supportive care restarted on her medications. Her electrolytes were managed. She completed a course of antibiotics for presumed UTI. She returned to her baseline mental status. Patient could not return home. Office of aging has been involved. Case management pursued ECF placement. A day of discharge she is sitting up eating her meals. She had no complaints. She be discharged to [facility] facility for ongoing care. Notes For Next Care Provider Recommend patient be kept comfortable at [facility] is much as possible avoiding aggressive interventions, procedures and return to the emergency department only if patient cannot be kept comfortable at [facility] facility Medication Changes From Visit Ativan and morphine discontinued Eliquis, Plavix, atorvastatin restarted since no longer on hospice care Admission HPI Per Admitting Provider Kae Johnston is a 74y female with history of Chronic hypoxic respiratory failure with hypoxia, COPD on 3L home O2, ongoing tobacco use, CAD, HTN, PAF, GERD, DM and HLP presenting from home with complaints of a "panic attack". Patient just admitted to [facility] 09/24 - 10/19/2024 after presenting with shock - though secondary to sepsis and hypovolemia. Patient was initially admitted to the ICU - intubated and on pressor support. She was transfused 2u PRBCs. Patient ultimately improved but continued to be encephalopathic for several days. Patient eventually improved but was discharged home with hospice services. Patient was ultimately taken off hospice services due to complex social issues - (Please see [employer] Notes from 10/21/24 for details). Patient returns tonight stating that she had a "panic attack" - endorses racing heart, chest discomfort, shortness of breath as well as some lower abdominal pain. Patient denies vomiting, diarrhea, dysuria. She has a Helms in place with cloudy urine. Lives at home with daughter and grandson. Is mostly bedbound and in a wheelchair. Patient AF with RVR in the field - given Cardizem 10mg IV ER Course: Potassium 40meg + 40mEq + 10meq Mag x 2gm, Zosyn 4.5gm NSS x 1L Vanc 750mg Admission Exam Per Admitting Provider See H&P Discharge Exam Constitutional: Alert, frail, weak, underweight HEENT: Mucous membranes moist. Lungs: Decreased, prolonged, no wheezes CV: S1-S2, irregular, systolic murmur Abdomen: Soft, nontender, nondistended Extremities: No significant edema Neuro: No focal deficits, generally weak Psych: Cooperative, impaired judgment and memory Updated Medication List Medication Instructions Recorded Confirmed Type nitroglycerin 0.4 mg sublingual 0.4 mg sublingual UD 09/24/24 10/24/24 History tablet ipratropium 0.5 mg-albuterol 3 mg 3 ml NEB Q4H PRN shortness of 10/19/24 10/24/24 Rx (2.5 mg base)/3 mL nebulization breath or wheezing #90 mL soln miconazole nitrate 2 % topical 1 applic EXT PRN PRN rash #85 grams 10/19/24 10/24/24 Rx powder (Desenex) lorazepam 1 mg tablet (Ativan) 1 mg PO Q6H PRN anxiety #10 tabs 10/20/24 10/24/24 Rx morphine 20 mg/5 mL (4 mg/mL) oral 5 mg (1.25 mL) PO Q2H PRN 10/20/24 10/24/24 Rx solution dyspnea/discomfort/pain #100 mL acetaminophen 500 mg tablet 1,000 mg (2 x 500 mg) PO Q8 #300 11/03/24 Rx (Tylenol Extra Strength) tabs apixaban 2.5 mg tablet (Eliquis) 2.5 mg PO BID #60 tabs 11/03/24 Rx atorvastatin 40 mg tablet 40 mg PO QAM #30 tabs 11/03/24 Rx clopidogrel 75 mg tablet 75 mg PO QAM #30 tabs 11/03/24 Rx fluticasone furoate 100 1 inh inhalation DAILY #60 ea 11/03/24 Rx mcg-vilanterol 25 mcg/dose inhalation powder (Breo Ellipta) ipratropium 0.5 mg-albuterol 3 mg 3 ml NEB Q4H PRN shortness of 11/03/24 Rx (2.5 mg base)/3 mL nebulization breath or wheezing #90 mL soln levothyroxine 25 mcg tablet 25 mcg PO DAILY #30 tabs 11/03/24 Rx melatonin 3 mg tablet 3 mg PO HS #30 tabs 11/03/24 Rx metoprolol succinate 50 mg 50 mg PO BID #60 tabs 11/03/24 Rx tablet,extended release 24 hr ondansetron 4 mg disintegrating 4 mg PO Q6H PRN nausea and 11/03/24 Rx tablet vomiting #10 tabs pantoprazole 40 mg tablet,delayed 40 mg PO DAILY #30 tabs 11/03/24 Rx release (Protonix) thiamine HCl (vitamin B1) 100 mg 100 mg PO QAM #30 tabs 11/03/24 Rx tablet umeclidinium 62.5 mcg/actuation 1 inh inhalation QAM #30 ea 11/03/24 Rx blister powder for inhalation (Incruse Ellipta) zinc oxide 16 % topical ointment 1 applic EXT QID #113 grams 11/03/24 Rx (Boudreauxs Butt Paste) Hospital Stay Data Consultations 10/24/24 02:59 ED Decision to Admit Stat 10/26/24 08:39 Consult Infectious Diseases Routine Diagnostic Imagining Performed 10/24/24 01:39 CT Abd and Pelvis [CT abd pelvis IV con only] Stat CT angio chest PE protocol Stat 10/27/24 00:01 MR brain wo/w con Urgent 10/28/24 08:52 CT abd pelvis IV con only Urgent Reviewed imaging, laboratory and diagnostic studies. Pertinent findings as below. Echocardiogram shows ejection fraction 55% with no evidence of pulmonary hypertension or significant valvular disease WBC 6.8 Hemoglobin 9.4 Platelets 249 Electrolytes within normal range Creatinine 0.61 Glucose 99 MRI of the brain was stable compared to previous small vessel disease CTA of the chest negative for pulmonary embolism significant emphysematous changes small/minimal pleural effusions Pending Results Patient Have Any Pending Studies at Discharge: No Discharge Instructions Given to Patient (Per Discharging Provider) Encourage activities Encourage therapies Strongly recommend patient be kept comfortable at [facility] facility avoiding aggressive procedures, interventions and hospitalizations as possible Oxygen as needed for comfort Total Time Total Time Spent Total Time Spent (In Minutes): 39
--- NOTE | 2024-11-06 07:28 | Coding Query ---
CODING QUERY To promote full compliance with coding requirements relating to patient care, provider participation is requested in all cases of watcher automat long goods uncertainty. Please assist us with the question(s) below: Coding Question(s): Pt admitted from home with indwelling urethral catheter & UTI. Problems at home with caregivers. Please document, if known or suspected, the etiology of the Urinary Tract infection . Thanks for your help! Physician's Response(s): suspected uti from chronic lord and poor hygiene care at home Thank you HAYDE Urrutia [facility] Principal Diagnosis: "that condition established after study, to be chiefly responsible for occasioning the admission of the patient to the hospital for care." Co-Existing Principal Diagnosis: "when two or more diagnoses equally meet the criteria for principal diagnosis as determined by the circumstances of admission, diagnostic work up, and/or therapy provided, and the Alphabetic Index, Tabular List, or another coding guideline does not provide sequencing direction, any one of the diagnoses may be sequenced first." "When the physician has documented what appears to be a current diagnosis in the body of the record, but has not included the diagnosis in the final diagnostic statement, the physician should be asked whether the diagnosis should be added." (Source [facility]oding [facility] 2 QTR90. p3-4) BLAIR
== END 2024-11-03 15:55 | DRG 698 ==
LOC: ED 00:33 → INTOOBSV 03:44 → SUATTDRO 03:44 → OBSVTOIN 03:44 → EDINP 03:44 → 2W 04:55 → 3N 10-30 22:09

== ENCOUNTER 2024-11-16 19:30 | Inpatient (IN) ==
--- NOTE | 2024-11-16 19:51 | Emergency Department Note ---
Impression & Plan Urinary tract infection, Fecal impaction, Hematuria, Status post placement of ureteral stent ED Provider Note NAME: JJ TORREZ AGE: 74 SEX: F : 1950 ARRIVES VIA: Ambulance INFORMANT: Patient, EMS ED PROVIDER(S): Bo Graves DO CHIEF COMPLAINT: Bleeding HPI: The patient is a 74-year-old female who presented to the emergency department for an evaluation of abdominal pain and rectal bleeding. The patient was sent to the emergency department from her personal-group home. The patient has been noted to have some dark stool over the last 24 hours. She is also been complaining of abdominal pain. The patient self does have some degree of underlying dementia and it is difficult to get a true history of the patient. Additional history is obtained from the EMS personnel. ROS: See above HPI for pertinent positives & negatives. A total of 10 systems reviewed and were otherwise negative. PAST MEDICAL HISTORY: See Below PAST SURGICAL HISTORY: See Below FAMILY HISTORY: See Below SOCIAL HISTORY: See Below HOME MEDICATIONS: See Below ALLERGIES: See Below VITALS: See Below PHYSICAL EXAMINATION: GENERAL: Patient is awake alert in no acute distress patient is resting comfortably and showing no signs of anxiety EYES: The conjunctivae are clear. The pupils are round and reactive. EARS, NOSE, MOUTH AND THROAT: The nose is without any evidence of any deformity. Mucous membranes are moist. Tongue is midline. NECK: The neck is nontender and supple. RESPIRATORY: Bilateral diminished breath sounds are noted. There are rales at both bases. CARDIOVASCULAR: Irregular heart sounds were noted to auscultation. There is no definite murmur. GASTROINTESTINAL: Abdominal exam revealed distended abdomen with diffuse tenderness to palpation. There is no guarding or rigidity. Rectal exam revealed blood over the entire perineum which appears to be around the vaginal opening. MUSCULOSKELETAL/EXTREMITIES: There is no evidence of gross deformity full range of motion is noted in the hips and shoulders. SKIN: Skin was warm and dry. Pedal edema was noted bilaterally. NEUROLOGIC: Patient is awake and oriented to person and place but not time or situation. Strength is symmetric. MEDICAL DECISION MAKING: The patient is a 74-year-old female who presented to the emergency department for an evaluation of abdominal pain. The patient's history and physical exam appear to be more consistent with diffuse abdominal pain and bleeding that could be vaginal versus hematuria. The patient did have a straight cath urine which did reveal hematuria. She also has signs of urine infection. Her last urinalysis grew out a VRE specimen. For this reason she was treated with daptomycin as well as Rocephin in the emergency department. The patient's CAT scan appears to be consistent with fecal impaction. I discussed patient's laboratory and radiographic studies with her. I discussed her condition with the on-call [facility] hospitalist. They have agreed to evaluate the patient in the emergency department for further management and disposition. Triage Nursing notes reviewed. Prior medical records reviewed Vital Signs: reviewed and remarkable for no significant abnormalities Differential diagnosis: Etiologies such as appendicitis, diverticulitis, obstruction, inflammatory bowel disease, renal colic, PUD, biliary pathology, pancreatitis, mesenteric ischemia, aortic pathology, infections, genitourinary, UTI, perforated viscus, as well as others were entertained. ER treatment provided: See below Diagnostics interpreted by me: ECG: EKG was obtained in the emergency department. My interpretation is atrial fibrillation at 94 bpm. No PVCs were noted. LVH was suggested by voltage criteria. Nonspecific ST and T wave abnormalities were noted. This was compared to a tracing from October 24, 2024. No changes were noted. Cardiac Monitoring: An order was placed for continuous cardiac monitoring. The monitor shows a rate of 91 bpm with atrial fibrillation. Laboratory studies: As stated above and show below. Imaging studies: See below. Radiographic imaging was reviewed by myself Consultation(s): I discussed this case with Dr. Rec[facility]. Past Med/Surg History Problem List (Updated 11/16/24 @ 22:20 by Bo Graves DO) Status post placement of ureteral stent (Acute) Hematuria (Acute) Fecal impaction (Acute) Urinary tract infection (Acute) Dementia, vascular with delirium Refeeding syndrome Severe protein-calorie malnutrition Complicated urinary tract infection Electrolyte abnormality Demand ischemia Positive blood culture Hypophosphatemia Elevated troponin (Acute) Acute UTI (Acute) Dehydration (Acute) Hypomagnesemia (Acute) Atrial fibrillation with rapid ventricular response (Acute) Hypokalemia (Acute) COPD with emphysema Neglected elder Failure to thrive in adult Dyspnea and respiratory abnormalities Weakness generalized Altered mental status Acute metabolic encephalopathy Elevated LFTs Metabolic encephalopathy Hypoglycemia associated with diabetes Acidosis (Acute) Respiratory failure (Acute) Anemia (Acute) Acute WA (Acute) Acute UTI (Acute) Hypoglycemia (Acute) Hypotension (Acute) Sepsis (Acute) Shock liver Acute blood loss anemia Hypovolemic shock Septic shock Rectal bleeding Acute and chronic respiratory failure Severe sepsis Hyperkalemia Acute renal failure LVH (left ventricular hypertrophy) due to hypertensive disease CAD (coronary artery disease), [place] coronary artery Abnormal EKG Hypothyroidism Hydronephrosis Sepsis (Acute) Atrial fibrillation with RVR (Acute) Anticoagulant long-term use (Acute) Medical History Hypokalemia Depression GERD (gastroesophageal reflux disease) COPD with exacerbation Dyslipidemia, goal LDL below 70 Chronic hypoxic respiratory failure 3L NC chronic CAD (coronary artery disease) 2022 - STEMI w/ RCA interventions Anemia COPD (chronic obstructive pulmonary disease) PAF (paroxysmal atrial fibrillation) HTN (hypertension) Myocardial infarction due to demand ischemia Non-ST elevation [place] (NSTEMI) Macular degeneration Tobacco use disorder Atrial fibrillation Diabetes Surgical History S/P ORIF (open reduction internal fixation) fracture H/O skin graft History of tonsillectomy H/O heart surgery History of cholecystectomy Hx of tubal ligation Social History Smoking Status: Former smoker Tobacco Type: Cigarettes Cigarettes Per Day: 5; Second Hand Exposure: No; Do You Dip or Chew Tobacco: No; Hx Alcohol Use: No Hx Substance Use: No Preferred Language: Hebrew Communication Ability: Effective Engineering Programmer Required: No Beliefs That Will Affect Care: None Current Living Situation: Family Current Living Situation Comment: with daughter Feels Safe at Home: Yes Assistive Devices: Bedside Commode, Cane, Oxygen - Continuous, Walker and Wheelchair Allergies Allergies Allergy/AdvReac Type Severity Reaction Status Date / Time bee venom protein (honey bee) Allergy Severe SWELLING Verified 11/16/24 21:47 SEVERE doxycycline Allergy Intermediate Vomiting Verified 11/16/24 21:47 Home Meds Home Medications Medication Instructions Recorded Confirmed nitroglycerin 0.4 mg sublingual 0.4 mg sublingual UD 09/24/24 10/24/24 tablet fluticasone 250 mcg-salmeterol 50 1 inh inhalation BID 11/16/24 11/16/24 mcg/dose blistr powdr for inhalation nitrofurantoin 100 mg PO BID 11/16/24 11/16/24 monohydrate/macrocrystals 100 mg capsule (Macrobid) Previous Rx's Medication Instructions Recorded acetaminophen 500 mg tablet 1,000 mg (2 x 500 mg) PO Q8 #300 11/03/24 (Tylenol Extra Strength) tabs apixaban 2.5 mg tablet (Eliquis) 2.5 mg PO BID #60 tabs 11/03/24 atorvastatin 40 mg tablet 40 mg PO QAM #30 tabs 11/03/24 clopidogrel 75 mg tablet 75 mg PO QAM #30 tabs 11/03/24 fluticasone furoate 100 1 inh inhalation DAILY #60 ea 11/03/24 mcg-vilanterol 25 mcg/dose inhalation powder (Breo Ellipta) ipratropium 0.5 mg-albuterol 3 mg 3 ml NEB Q4H PRN shortness of 11/03/24 (2.5 mg base)/3 mL nebulization breath or wheezing #90 mL soln levothyroxine 25 mcg tablet 25 mcg PO DAILY #30 tabs 11/03/24 melatonin 3 mg tablet 3 mg PO HS #30 tabs 11/03/24 metoprolol succinate 50 mg 50 mg PO BID #60 tabs 11/03/24 tablet,extended release 24 hr ondansetron 4 mg disintegrating 4 mg PO Q6H PRN nausea and 11/03/24 tablet vomiting #10 tabs pantoprazole 40 mg tablet,delayed 40 mg PO DAILY #30 tabs 11/03/24 release (Protonix) thiamine HCl (vitamin B1) 100 mg 100 mg PO QAM #30 tabs 11/03/24 tablet umeclidinium 62.5 mcg/actuation 1 inh inhalation QAM #30 ea 11/03/24 blister powder for inhalation (Incruse Ellipta) zinc oxide 16 % topical ointment 1 applic EXT QID #113 grams 11/03/24 (Boudreauxs Butt Paste) Results & Data (ED) Vital Signs Vital Signs - 24 hr 11/16/24 19:35 11/16/24 19:36 11/16/24 19:54 Temperature 36.5 C 36.5 C Temperature Source Oral Oral Pulse Rate 85 Pulse Rate [Right Finger] Respiratory Rate 16 19 Respiratory Effort / Characteristics Non-Labored Spontaneous Respiratory Depth Normal Normal Respiratory Pattern Regular Blood Pressure 131/71 Blood Pressure [Left Arm] 131/71 Blood Pressure Mean 91 Blood Pressure Mean [Left Arm] 91 Blood Pressure Position Semi-fowlers Pulse Oximetry 100 99 99 Oxygen Delivery Method Nasal Cannula Nasal Cannula Nasal Cannula Oxygen Flow Rate 2 2 2 Sepsis Recent Fever Within 48 Hours No Sepsis New/Unexplained Change in Mental Status No Sepsis Action Taken by Nursing No Action Required 11/16/24 20:16 11/16/24 21:00 Temperature Temperature Source Pulse Rate 83 Pulse Rate [Right Finger] 90 Respiratory Rate 16 Respiratory Effort / Characteristics Respiratory Depth Normal Respiratory Pattern Blood Pressure Blood Pressure [Left Arm] 113/70 Blood Pressure Mean Blood Pressure Mean [Left Arm] 84 Blood Pressure Position Pulse Oximetry 98 Oxygen Delivery Method Nasal Cannula Oxygen Flow Rate 2 Sepsis Recent Fever Within 48 Hours Sepsis New/Unexplained Change in Mental Status Sepsis Action Taken by [facility] Medications Current Medication List: was personally reviewed by me Laboratory Data Attestation: I reviewed the patient's lab results. 11/16/24 19:42 11/16/24 19:42 Lab Results 11/16/24 11/16/24 Range/Units 19:42 19:48 WBC 10.47 (4.8-10.8) K/ul RBC 4.05 L (4.20-5.40) M/uL Hgb 11.7 L (12.0-16.0) g/dl Hct 37.3 (37.0-47.0) % MCV 92.1 (80.0-100.0) fL MCH 28.9 (25.0-34.0) pg MCHC 31.4 L (32.0-36.0) g/dL RDW Std Deviation 62.4 H (36.4-46.3) fL RDW Coeff of Chet 18.3 H (11.5-14.5) % Plt Count 474 H (130-400) K/uL MPV 9.0 L (9.4-12.4) fL Immature Gran % (Auto) 0.6 % Neut % (Auto) 70.3 % Lymph % (Auto) 16.3 % Mayes % (Auto) 9.5 % Eos % (Auto) 3.3 % Baso % (Auto) 0.0 % Neut # (Auto) 7.36 H (1.40-6.50) K/uL Lymph # (Auto) 1.71 (1.20-3.40) K/uL Mayes # (Auto) 0.99 H (0.11-0.59) K/uL Eos # (Auto) 0.35 (0.00-0.50) K/uL Baso # (Auto) 0.00 (0.00-0.20) K/uL Immature Gran # (Auto) 0.06 (0.01-0.20) K/uL PT 11.1 (9.0-12.0) Seconds INR 1.0 (0.9-1.1) APTT 26 (21-31) Seconds PTT Ratio 1.0 Sodium 137 (136-145) mmol/L Potassium 3.1 L (3.5-5.1) mmol/L Chloride 86 L (98-107) mmol/L Carbon Dioxide 44 H* (21-32) mmol/L Anion Gap 7 (3-11) BUN 15 (6-23) mg/dl Creatinine 0.74 (0.6-1.2) mg/dl Est Cr Clr Drug Dosing 45.6 ml/min eGFR 84.32 BUN/Creatinine Ratio 20.3 H (10-20) Glucose 90 (70-99(Fasting)) mg/dl Calcium 9.5 (8.6-10.3) mg/dl Total Bilirubin 0.5 (0.2-1.0) mg/dl AST 14 (13-39) U/L ALT 10 (7-52) U/L Alkaline Phosphatase 94 (34-104) U/L Troponin I High Sens 9.7 (0-14) pg/ml Total Protein 6.7 (6.0-8.3) gm/dl Albumin 3.2 L (3.4-5.0) gm/dl Globulin 3.5 (2.5-4.0) gm/dl Albumin/Globulin Ratio 0.9 (0.9-2) Lipase 53 (11-82) U/L Urine Color [place] Urine Appearance Cloudy A (Clear) Urine pH 6.5 (4.5-7.5) Ur Specific [place] 1.008 (1.000-1.030) Urine Protein 1+ H (Negative) Urine Glucose (UA) Negative (Negative) Urine Ketones Negative (Negative) Urine Blood 3+ H (Negative) Urine Nitrite Negative (Negative) Urine Bilirubin Negative (Negative) Urine Urobilinogen Negative (Negative) Ur Leukocyte Esterase 3+ H (Negative) Urine WBC (Auto) >50 H (0-5) /hpf Urine RBC (Auto) >20 H (0-2) /hpf U Hyaline Cast (Auto) 0-2 (0-2) /lpf U Epithel Cells (Auto) 0-2 (0-2) /hpf Urine Bacteria (Auto) 1+ H (None Seen) Urine Comment Blood Type O Positive Antibody Screen NEGATIVE Administered Medications Morphine Sulfate (Morphine Sulfate 4 Mg/Ml 1 Ml Carp\Vial) 2 mg IV Q15M PRN PRN Reason: Pain Stop: 11/30/24 19:44 Last Admin: 11/16/24 20:25 Dose: 2 mg Documented By: ENIO Discontinued Medications Sodium Chloride (Nss) 500 mls @ 999 mls/hr IV .Q31M STA Stop: 11/16/24 20:15 Last Admin: 11/16/24 20:20 Dose: 999 mls/hr Documented By: ENIO Ceftriaxone Sodium (Rocephin) 2,000 mg in 50 mls @ 100 mls/hr IV NOW STA Stop: 11/16/24 20:51 Last Admin: 11/16/24 20:32 Dose: 100 mls/hr Documented By: ENIO Ioversol (Optiray 320 100ml) 93 ml IV ONCE ONE Stop: 11/16/24 21:22 Last Admin: 11/16/24 21:21 Dose: 93 ml Documented By: ANITHA Ondansetron HCl (Ondansetron Inj 2 Mg/Ml 2 Ml Vial) 4 mg IV NOW STA Stop: 11/16/24 19:46 Last Admin: 11/16/24 20:20 Dose: 4 mg Documented By: ENIO Imaging Data Attestation: I personally reviewed and interpreted this imaging study as follows: My Impression: CT of the abdomen and pelvis was obtained in the emergency department. My interpretation is significant amount of stool noted, ureteral stent was noted on the right, there is no free air, final report pending. 1 view chest x-ray was obtained in the emergency department. Bilateral pleural effusions were noted, final report below. Radiologist's Impression: Chest X-Ray 11/16/24 19:45 Exam(s): XR CXR 1 VIEW EXAM: XR Chest, 1 View CLINICAL HISTORY: Reason for exam: abd pain. TECHNIQUE: Frontal view of the chest. COMPARISON: 10/27/2024 FINDINGS: Lungs: Atelectasis or scarring in the right midlung and at the left base. Pleural space: Small left and trace right pleural effusion. Heart: Unremarkable. No cardiomegaly. IMPRESSION: 1. Atelectasis or scarring in the right midlung and at the left base. 2. Small left and trace right pleural effusion. Electronically signed by: Bj Morales MD 11/16/24 20:54 PM Discharge Plan Visit Data Chief Complaint: Illness Stated Complaint: ILLNESS ED Provider: oB Graves Discharge Problem: Urinary tract infection, Fecal impaction, Hematuria, Status post placement of ureteral stent Patient Disposition: Being Evaluated by Hospitalist Condition: Fair Forms Stand Alone Forms: [facility] Prescriptions Prescriptions: No Action nitrofurantoin monohyd/m-cryst [Macrobid] 100 mg Capsule 100 mg PO BID Rx Instructions: 11/16/24 : BEGIN 11/15/24 X 7 DAYS fluticasone propion-salmeterol 250-50 mcg/dose Blister With Device 1 inh INHALATION BID nitroglycerin 0.4 mg Tablet, Sublingual 0.4 mg sublingual UD Rx Instructions: sl prn chest pain Q 5min x 3 and to call 911 ipratropium-albuterol 0.5 mg-3 mg(2.5 mg base)/3 mL Solution For Nebulization 3 ml NEB Q4H PRN (Reason: shortness of breath or wheezing) Qty: 90 0RF Eliquis 2.5 mg Tablet 2.5 mg PO BID Qty: 60 0RF atorvastatin 40 mg Tablet 40 mg PO QAM Qty: 30 0RF thiamine HCl (vitamin B1) 100 mg Tablet 100 mg PO QAM Qty: 30 0RF melatonin 3 mg Tablet 3 mg PO HS Qty: 30 0RF clopidogrel 75 mg Tablet 75 mg PO QAM Qty: 30 0RF acetaminophen [Tylenol Extra Strength] 500 mg Tablet 1,000 mg PO Q8 Qty: 300 0RF Boudreauxs Butt Paste 16 % Ointment 1 applic EXT QID Qty: 113 0RF fluticasone furoate-vilanterol [Breo Ellipta] 100-25 mcg/dose Blister With Device 1 inh inhalation DAILY Qty: 60 0RF Incruse Ellipta 62.5 mcg/actuation Blister With Device 1 inh inhalation QAM Qty: 30 0RF metoprolol succinate 50 mg Tablet Extended Release 24 Hr 50 mg PO BID Qty: 60 0RF levothyroxine 25 mcg Tablet 25 mcg PO DAILY Qty: 30 0RF pantoprazole [Protonix] 40 mg Tablet,Delayed Release (Dr/Ec) 40 mg PO DAILY Qty: 30 0RF ondansetron 4 mg Tablet,Disintegrating 4 mg PO Q6H PRN (Reason: nausea and vomiting) Qty: 10 0RF Referrals Referrals: Ronald Cortes MD [Primary Care Provider] -
[2024-11-16 20:00] LABS: Hematocrit (blood only) 37.3 % (37.0-47.0); Hemoglobin 11.7 g/dl (12.0-16.0); Immature Granulocytes # (auto) 0.06 K/uL (0.01-0.20); Immature Granulocytes % (auto) 0.6 %; Mean Corpuscular Hemoglobin 28.9 pg (25.0-34.0); Mean Corpuscular Volume 92.1 fL (80.0-100.0); Platelet Count 474 K/uL (130-400); RDW Standard Deviation 62.4 fL (36.4-46.3); Red Blood Count 4.05 M/uL (4.20-5.40); White Blood Count 10.47 K/ul (4.8-10.8)
[2024-11-16 20:18] LABS: Appearance Urine Cloudy (Clear); Bacteria Urine Automated 1+ (None Seen); Cast Urine Automated 0-2 /lpf (0-2); Epithelial Cell Urine Auto 0-2 /hpf (0-2); Glucose Urine UA Negative (Negative); RBC Urine Automated >20 /hpf (0-2); WBC Urine Automated >50 /hpf (0-5)
[2024-11-16] MEDS: SODIUM CHLORIDE 0.9% 500 ML IV STA (20:20)
[2024-11-16] MEDS: ONDANSETRON INJ 2 MG/ML 2 ML VIAL IV STA (20:20)
[2024-11-16] MEDS: MoRPHine SULFATE 4 MG/ML 1 ML CARP\\VIAL IV PRN (20:25)
[2024-11-16 20:32] LABS: Alanine Aminotransferase 10.0 U/L (7-52); Albumin Globulin Ratio 0.9 (0.9-2); Alkaline Phosphatase 94.0 U/L (34-104); Anion Gap 7.0 (3-11); Bilirubin,Total 0.5 mg/dl (0.2-1.0); Blood Urea Nitrogen 15.0 mg/dl (6-23); Calcium 9.5 mg/dl (8.6-10.3); Carbon Dioxide 44.0 mmol/L (21-32); Chloride 86.0 mmol/L (98-107); Creatinine Clr Calc Pharmacy 45.6 ml/min; Globulin 3.5 gm/dl (2.5-4.0); Glucose 90.0 mg/dl (70-99(Fasting)); Lipase 53.0 U/L (11-82); Potassium 3.1 mmol/L (3.5-5.1); Sodium 137.0 mmol/L (136-145); Total Protein 6.7 gm/dl (6.0-8.3)
[2024-11-16] MEDS: cefTRIAXone SODIUM 2,000 MG/50 ML BAG IV STA (20:32)
[2024-11-16 20:48] LABS: INR 1.0 (0.9-1.1); Partial Thromboplastin Time 26 Seconds (21-31); Prothrombin Time 11.1 Seconds (9.0-12.0)
--- NOTE | 2024-11-16 20:54 | XRay Report ---
Exam(s): XR CXR 1 VIEW EXAM: XR Chest, 1 View CLINICAL HISTORY: Reason for exam: abd pain. TECHNIQUE: Frontal view of the chest. COMPARISON: 10/27/2024 FINDINGS: Lungs: Atelectasis or scarring in the right midlung and at the left base. Pleural space: Small left and trace right pleural effusion. Heart: Unremarkable. No cardiomegaly. IMPRESSION: 1. Atelectasis or scarring in the right midlung and at the left base. 2. Small left and trace right pleural effusion. Electronically signed by: Bj Morales MD 11/16/24 20:54 PM
[2024-11-16] MEDS: OPTIRAY 320 100ml IV ONE (21:21)
--- NOTE | 2024-11-16 22:12 | CT Scan Report ---
Exam(s): CT ABDOMEN + PELVIS With Contrast IV Amt: 93 ML OPTIRAY 320 EXAM: CT Abdomen and Pelvis With Intravenous Contrast CLINICAL HISTORY: Reason for exam: lower pain, bleeding. TECHNIQUE: Axial computed tomography images of the abdomen and pelvis with intravenous contrast. CTDI is 6.6 mGy and DLP is 289.89 mGy-cm. Automated exposure control was utilized for the study. A dose lowering technique was utilized adhering to the principles of ALARA. CONTRAST: Patient received 93 ML OPTIRAY 320 of IV contrast COMPARISON: 10/28/2024 FINDINGS: Pleural space: Small bilateral pleural effusions. ABDOMEN: Liver: Unremarkable. Gallbladder and bile ducts: Cholecystectomy. Mild biliary dilatation likely related to postcholecystectomy status. Pancreas: Unremarkable. Spleen: Unremarkable. Adrenals: Unremarkable. Kidneys and ureters: Right nephrostomy tube in place. Mild right- sided hydronephrosis. Stomach and bowel: Excess colonic stool burden. No bowel obstruction or inflammatory changes. PELVIS: Appendix: No findings to suggest acute appendicitis. Bladder: Unremarkable. Reproductive: Unremarkable as visualized. ABDOMEN and PELVIS: Intraperitoneal space: Unremarkable. No free air. No significant fluid collection. Bones/joints: Levoscoliosis and multilevel degenerative changes within the spine. Unchanged compression fracture at T11. Soft tissues: Unremarkable. Vasculature: Advanced aortobiiliac atherosclerotic calcifications mildly aneurysmal abdominal aorta up to 3 cm. Lymph nodes: Unremarkable. IMPRESSION: 1. Excess colonic stool burden. 2. Right nephrostomy tube in place. Mild right-sided hydronephrosis. 3. Small bilateral pleural effusions. 4. Advanced aortobiiliac atherosclerotic calcifications mildly aneurysmal abdominal aorta up to 3 cm. Electronically signed by: Bj Morales MD 11/16/24 22:11 PM
--- NOTE | 2024-11-16 22:40 | History & Physical Report ---
Date of Service November 16, 2024 Assessment & Plan (1) Fecal impaction: (2) Urinary tract infection: (3) COPD with emphysema: (4) CAD (coronary artery disease), [place] coronary artery: (5) Hypothyroidism: (6) Depression: (7) GERD (gastroesophageal reflux disease): (8) Dyslipidemia, goal LDL below 70: (9) HTN (hypertension): Plan 74yo female with multiple medical comorbidities presenting with abdominal pain, hematuria and fecal impaction #Fecal impaction -Admit to medical -Requesting manual disimpaction -Dulcolax 10mg IN daily PRN -Colace 100mg po BID scheduled -Miralax 17gm po daily scheduled -Continue gentle IVF - NSS at 80mL/hr x 1L ordered -Electrolyte repletion with K #UTI with Hematuria - 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 Does have marked elevation of HCO3 on chemistry HCO3=44. -Check VBG for acid-base status -Continue Fluticasone/Vilanterol/Umeclinidium -Caution not to overoxygenate #Atrial fibrillation - rate controlled -Continue Metoprolol -Hold Apixaban for now given hematuria #CAD -Plavix 75mg po qAM -Metoprolol 50mg po BID #Hypertension -Metoprolol 50mg po BID #Hyperlipidemia -Hold Atorvastatin while patient is on Daptomycin #Hypothyroidism -Continue Synthroid #GERD -Protonix 40mg po BID History of Present Illness Chief Complaint: abdominal pain and rectal bleeding Primary Care Provider: Ronald Cortes MD Kae Johnston is a 74yo female with multiple medical comorbidities to include chronic hypoxic respiratory failure with hypoxia, COPD on 3L home O2, CAD, HTN, PAF, GERD, DM presenting with abdominal discomfort and hematuria. Patient with underlying dementia. Does not provide clear details of events prior to arrival. She states that she has some epigastric pain ongoing x 4 days as well as some dysuria and hematuria. No reports of fever, chills, chest pain, cough, SOB, nausea, vomiting, diarrhea. Patient recently admitted to [facility] 10/24 - 11/03 for encephalopathy and was discharged to a longterm facility In the ER she was afebrile, HD stable ER Course: NSS x 500mL Zofran 4mg Morphine 2mg IV Ceftriaxone 2gm Cefepime 2gm KCl 20mEq Allergies Allergy/AdvReac Type Severity Reaction Status Date / Time bee venom protein (honey bee) Allergy Severe SWELLING Verified 11/16/24 21:47 SEVERE doxycycline Allergy Intermediate Vomiting Verified 11/16/24 21:47 Home Medications Medication Instructions Recorded Confirmed Type nitroglycerin 0.4 mg sublingual 0.4 mg sublingual UD 09/24/24 11/16/24 History tablet apixaban 2.5 mg tablet (Eliquis) 2.5 mg PO BID #60 tabs 11/03/24 11/16/24 Rx atorvastatin 40 mg tablet 40 mg PO QAM #30 tabs 11/03/24 11/16/24 Rx clopidogrel 75 mg tablet 75 mg PO QAM #30 tabs 11/03/24 11/16/24 Rx levothyroxine 25 mcg tablet 25 mcg PO DAILY #30 tabs 11/03/24 11/16/24 Rx melatonin 3 mg tablet 3 mg PO HS #30 tabs 11/03/24 11/16/24 Rx metoprolol succinate 50 mg 50 mg PO BID #60 tabs 11/03/24 11/16/24 Rx tablet,extended release 24 hr ondansetron 4 mg disintegrating 4 mg PO Q6H PRN nausea and 11/03/24 11/16/24 Rx tablet vomiting #10 tabs pantoprazole 40 mg tablet,delayed 40 mg PO DAILY #30 tabs 11/03/24 11/16/24 Rx release (Protonix) thiamine HCl (vitamin B1) 100 mg 100 mg PO QAM #30 tabs 11/03/24 11/16/24 Rx tablet umeclidinium 62.5 mcg/actuation 1 inh inhalation QAM #30 ea 11/03/24 11/16/24 Rx blister powder for inhalation (Incruse Ellipta) acetaminophen 325 mg tablet 650 mg PO Q6H PRN Fever Or Pain 11/16/24 11/16/24 History fluticasone 250 mcg-salmeterol 50 1 inh inhalation BID 11/16/24 11/16/24 History mcg/dose blistr powdr for inhalation furosemide 20 mg tablet (Lasix) 20 mg PO DAILY 11/16/24 11/16/24 History lorazepam 1 mg tablet 0.5 mg PO Q6H PRN Anxiety 11/16/24 11/16/24 History nitrofurantoin 100 mg PO BID 11/16/24 11/16/24 History monohydrate/macrocrystals 100 mg capsule (Macrobid) Past Med/Surg History Problem List Status post placement of ureteral stent (Acute) Hematuria (Acute) Fecal impaction (Acute) Urinary tract infection (Acute) Dementia, vascular with delirium Refeeding syndrome Severe protein-calorie malnutrition Complicated urinary tract infection Electrolyte abnormality Demand ischemia Positive blood culture Hypophosphatemia Elevated troponin (Acute) Acute UTI (Acute) Dehydration (Acute) Hypomagnesemia (Acute) Atrial fibrillation with rapid ventricular response (Acute) Hypokalemia (Acute) COPD with emphysema Neglected elder Failure to thrive in adult Dyspnea and respiratory abnormalities Weakness generalized Altered mental status Acute metabolic encephalopathy Elevated LFTs Metabolic encephalopathy Hypoglycemia associated with diabetes Acidosis (Acute) Respiratory failure (Acute) Anemia (Acute) Acute OR (Acute) Acute UTI (Acute) Hypoglycemia (Acute) Hypotension (Acute) Sepsis (Acute) Shock liver Acute blood loss anemia Hypovolemic shock Septic shock Rectal bleeding Acute and chronic respiratory failure Severe sepsis Hyperkalemia Acute renal failure LVH (left ventricular hypertrophy) due to hypertensive disease CAD (coronary artery disease), solomon coronary artery Abnormal EKG Hypothyroidism Hydronephrosis Sepsis (Acute) Atrial fibrillation with RVR (Acute) Anticoagulant long-term use (Acute) Medical History Hypokalemia Depression GERD (gastroesophageal reflux disease) COPD with exacerbation Dyslipidemia, goal LDL below 70 Chronic hypoxic respiratory failure 3L NC chronic CAD (coronary artery disease) 2022 - STEMI w/ RCA interventions Anemia COPD (chronic obstructive pulmonary disease) PAF (paroxysmal atrial fibrillation) HTN (hypertension) Myocardial infarction due to demand ischemia Non-ST elevation OR (NSTEMI) Macular degeneration Tobacco use disorder Atrial fibrillation Diabetes Surgical History S/P ORIF (open reduction internal fixation) fracture H/O skin graft History of tonsillectomy H/O heart surgery History of cholecystectomy Hx of tubal ligation Social History Smoking Status: Former smoker Tobacco Type: Cigarettes Cigarettes Per Day: 5; Second Hand Exposure: No; Do You Dip or Chew Tobacco: No; Hx Alcohol Use: No Hx Substance Use: No Preferred Language: Yakut Communication Ability: Effective Quality Systems Engineer Required: No Beliefs That Will Affect Care: None Current Living Situation: Family Current Living Situation Comment: with daughter Feels Safe at Home: Yes Assistive Devices: Bedside Commode, Cane, Oxygen - Continuous, Walker and Wh eelchair Review of Systems Review of Systems: All systems reviewed & are unremarkable except as noted in HPI & below Physical Exam Physical Exam: General: patient resting comfortably, NAD, non-toxic in appearance, AA&O x 4 Skin: warm, dry, intact, no rashes or lesions HEENT: NC/AT, PERRL, EOMI, anicteric sclera, conjunctiva without injection, external ear normal to inspection and nontender, nares patent, moist mucus membranes, dentition intact, no oropharyngeal lesions, neck supple, trachea midline, no LAD, no thyromegaly, no JVD Heart: +S1/S2, irregularly irregular, no m/r/g Lungs: equal air entry bilaterally, no rales/rhonchi/wheezes Abd: +BS, soft, NT/ND, no masses/organomegaly/ascites Ext: warm, 2+ pulses in UE/LE bilaterally, no clubbing/cyanosis or edema Neuro: nonfocal, patient AA&O x 4, speech intact, no facial droop, moving all extremities on command with equal strength 5/5 Results & Data Results & Data Vital Signs (Past 12 Hours) Vital Signs Temp Pulse Pulse Resp BP BP Pulse Ox 11/16/24 22:16 87 14 121/90 99 11/16/24 21:00 90 16 113/70 98 11/16/24 20:16 83 11/16/24 19:54 99 11/16/24 19:36 36.5 C 85 19 131/71 99 11/16/24 19:35 36.5 C 16 131/71 100 O2 Del Method O2 Flow Rate 11/16/24 22:16 Nasal Cannula 2 11/16/24 21:00 Nasal Cannula 2 11/16/24 20:16 11/16/24 19:54 Nasal Cannula 2 11/16/24 19:36 Nasal Cannula 2 11/16/24 19:35 Nasal Cannula 2 Laboratory Results Laboratory Results WBC 10.47 K/ul (4.8-10.8) 11/16/24 19:42 RBC 4.05 M/uL (4.20-5.40) L 11/16/24 19:42 Hgb 11.7 g/dl (12.0-16.0) L 11/16/24 19:42 Hct 37.3 % (37.0-47.0) 11/16/24 19:42 MCV 92.1 fL (80.0-100.0) 11/16/24 19:42 MCH 28.9 pg (25.0-34.0) 11/16/24 19:42 MCHC 31.4 g/dL (32.0-36.0) L 11/16/24 19:42 RDW Std Deviation 62.4 fL (36.4-46.3) H 11/16/24 19:42 RDW Coeff of [place]t 18.3 % (11.5-14.5) H 11/16/24 19:42 Plt Count 474 K/uL (130-400) H 11/16/24 19:42 MPV 9.0 fL (9.4-12.4) L 11/16/24 19:42 Immature Gran % (Auto) 0.6 % 11/16/24 19:42 Neut % (Auto) 70.3 % 11/16/24 19:42 Lymph % (Auto) 16.3 % 11/16/24 19:42 [place] % (Auto) 9.5 % 11/16/24 19:42 Eos % (Auto) 3.3 % 11/16/24 19:42 Baso % (Auto) 0.0 % 11/16/24 19:42 Neut # (Auto) 7.36 K/uL (1.40-6.50) H 11/16/24 19:42 Lymph # (Auto) 1.71 K/uL (1.20-3.40) 11/16/24 19:42 [place] # (Auto) 0.99 K/uL (0.11-0.59) H 11/16/24 19:42 Eos # (Auto) 0.35 K/uL (0.00-0.50) 11/16/24 19:42 Baso # (Auto) 0.00 K/uL (0.00-0.20) 11/16/24 19:42 Immature Gran # (Auto) 0.06 K/uL (0.01-0.20) 11/16/24 19:42 PT 11.1 Seconds (9.0-12.0) 11/16/24 19:42 INR 1.0 (0.9-1.1) 11/16/24 19:42 APTT 26 Seconds (21-31) 11/16/24 19:42 PTT Ratio 1.0 11/16/24 19:42 VBG pH 7.46 (7.36-7.41) H 11/17/24 00:51 VBG pCO2 72 mmHg (38-50) H 11/17/24 00:51 VBG pO2 28 mmHg 11/17/24 00:51 VBG HCO3 51 mmol/L 11/17/24 00:51 VBG O2 Saturation < 60.0 % 11/17/24 00:51 VBG Base Excess 22.7 mEq/L 11/17/24 00:51 Sodium 137 mmol/L (136-145) 11/16/24 19:42 Potassium 3.1 mmol/L (3.5-5.1) L 11/16/24 19:42 Chloride 86 mmol/L (98-107) L 11/16/24 19:42 Carbon Dioxide 44 mmol/L (21-32) H* 11/16/24 19:42 Anion Gap 7 (3-11) 11/16/24 19:42 BUN 15 mg/dl (6-23) 11/16/24 19:42 Creatinine 0.74 mg/dl (0.6-1.2) 11/16/24 19:42 Est Cr Clr Drug Dosing 45.6 ml/min 11/16/24 19:42 eGFR 84.32 11/16/24 19:42 BUN/Creatinine Ratio 20.3 (10-20) H 11/16/24 19:42 Glucose 90 mg/dl (70-99(Fasting)) 11/16/24 19:42 Calcium 9.5 mg/dl (8.6-10.3) 11/16/24 19:42 Total Bilirubin 0.5 mg/dl (0.2-1.0) 11/16/24 19:42 AST 14 U/L (13-39) 11/16/24 19:42 ALT 10 U/L (7-52) 11/16/24 19:42 Alkaline Phosphatase 94 U/L (34-104) 11/16/24 19:42 Troponin I High Sens 9.7 pg/ml (0-14) 11/16/24 19:42 Total Protein 6.7 gm/dl (6.0-8.3) 11/16/24 19:42 Albumin 3.2 gm/dl (3.4-5.0) L 11/16/24 19:42 Globulin 3.5 gm/dl (2.5-4.0) 11/16/24 19:42 Albumin/Globulin Ratio 0.9 (0.9-2) 11/16/24 19:42 Lipase 53 U/L (11-82) 11/16/24 19:42 Urine Color [place] 11/16/24 19:42 Urine Appearance Cloudy (Clear) A 11/16/24 19:42 Urine pH 6.5 (4.5-7.5) 11/16/24 19:42 Ur Specific [place] 1.008 (1.000-1.030) 11/16/24 19:42 Urine Protein 1+ (Negative) H 11/16/24 19:42 Urine Glucose (UA) Negative (Negative) 11/16/24 19:42 Urine Ketones Negative (Negative) 11/16/24 19:42 Urine Blood 3+ (Negative) H 11/16/24 19:42 Urine Nitrite Negative (Negative) 11/16/24 19:42 Urine Bilirubin Negative (Negative) 11/16/24 19:42 Urine Urobilinogen Negative (Negative) 11/16/24 19:42 Ur Leukocyte Esterase 3+ (Negative) H 11/16/24 19:42 Urine WBC (Auto) >50 /hpf (0-5) H 11/16/24 19:42 Urine RBC (Auto) >20 /hpf (0-2) H 11/16/24 19:42 U Hyaline Cast (Auto) 0-2 /lpf (0-2) 11/16/24 19:42 U Epithel Cells (Auto) 0-2 /hpf (0-2) 11/16/24 19:42 Urine Bacteria (Auto) 1+ (None Seen) H 11/16/24 19:42 Urine Comment 11/16/24 19:42 Blood Type O Positive 11/16/24 19:48 Antibody Screen NEGATIVE 11/16/24 19:48 Impressions Abdomen/Pelvis CT 11/16/24 19:45 Exam(s): CT ABDOMEN + PELVIS With Contrast IV Amt: 93 ML OPTIRAY 320 EXAM: CT Abdomen and Pelvis With Intravenous Contrast CLINICAL HISTORY: Reason for exam: lower pain, bleeding. TECHNIQUE: Axial computed tomography images of the abdomen and pelvis with intravenous contrast. CTDI is 6.6 mGy and DLP is 289.89 mGy-cm. Automated exposure control was utilized for the study. A dose lowering technique was utilized adhering to the principles of ALARA. CONTRAST: Patient received 93 ML OPTIRAY 320 of IV contrast COMPARISON: 10/28/2024 FINDINGS: Pleural space: Small bilateral pleural effusions. ABDOMEN: Liver: Unremarkable. Gallbladder and bile ducts: Cholecystectomy. Mild biliary dilatation likely related to postcholecystectomy status. Pancreas: Unremarkable. Spleen: Unremarkable. Adrenals: Unremarkable. Kidneys and ureters: Right nephrostomy tube in place. Mild right- sided hydronephrosis. Stomach and bowel: Excess colonic stool burden. No bowel obstruction or inflammatory changes. PELVIS: Appendix: No findings to suggest acute appendicitis. Bladder: Unremarkable. Reproductive: Unremarkable as visualized. ABDOMEN and PELVIS: Intraperitoneal space: Unremarkable. No free air. No significant fluid collection. Bones/joints: Levoscoliosis and multilevel degenerative changes within the spine. Unchanged compression fracture at T11. Soft tissues: Unremarkable. Vasculature: Advanced aortobiiliac atherosclerotic calcifications mildly aneurysmal abdominal aorta up to 3 cm. Lymph nodes: Unremarkable. IMPRESSION: 1. Excess colonic stool burden. 2. Right nephrostomy tube in place. Mild right-sided hydronephrosis. 3. Small bilateral pleural effusions. 4. Advanced aortobiiliac atherosclerotic calcifications mildly aneurysmal abdominal aorta up to 3 cm. Electronically signed by: Bj Morales MD 11/16/24 22:11 PM Chest X-Ray 11/16/24 19:45 Exam(s): XR CXR 1 VIEW EXAM: XR Chest, 1 View CLINICAL HISTORY: Reason for exam: abd pain. TECHNIQUE: Frontal view of the chest. COMPARISON: 10/27/2024 FINDINGS: Lungs: Atelectasis or scarring in the right midlung and at the left base. Pleural space: Small left and trace right pleural effusion. Heart: Unremarkable. No cardiomegaly. IMPRESSION: 1. Atelectasis or scarring in the right midlung and at the left base. 2. Small left and trace right pleural effusion. Electronically signed by: Bj Morales MD 11/16/24 20:54 PM PG Care Time/CCT Total # of Minutes Spent Total Time Spent with Patient: Total time spent is greater than 50% in coordination of care (as documented) at patient's floor/unit and/or counseling patient: Coding Level of Care Code 12805 INT INP/OBS CARE 3/75MIN Diagnoses Fecal impaction K56.41 Urinary tract infection N39.0 COPD with emphysema J43.9 CAD (coronary artery disease), [place] coronary artery I25.10 Hypothyroidism E03.9 Depression F32.A GERD (gastroesophageal reflux disease) K21.9 Dyslipidemia, goal LDL below 70 E78.5 Primary hypertension I10 Hypertension type: primary hypertension (9) HTN (hypertension) Hypertension type: primary hypertension Qualified Code(s): I10 - Essential (primary) hypertension
[2024-11-17] MEDS ORDERED: LORazepam 0.5 MG TAB PO PRN (00:19)
[2024-11-17] MEDS: CEFEPIME 2000MG 2,000 MG/20 ML SYR IV ONE (01:11)
[2024-11-17] MEDS: NSS + 20MEQ KCL 20 MEQ/1,000 ML BAG IV SCH (01:12)
[2024-11-17] MEDS: POTASSIUM CHLORIDE 10 MEQ TABCR PO STA (01:14)
[2024-11-17 01:17] LABS: Base Excess VBG 22.7 mEq/L; HCO3 VBG 51 mmol/L; Oxygen Saturation VBG < 60.0 %; PCO2 VBG 72 mmHg (38-50); PO2 VBG 28 mmHg; pH VBG 7.46 (7.36-7.41)
[2024-11-17] MEDS: DAPTOmycin 450 MG in SYRINGE 0 ML IV ONE (01:24)
[2024-11-17 01:34] LABS: Magnesium 1.7 mg/dl (1.7-2.4)
[2024-11-17] MEDS: ACETAMINOPHEN 325 MG TAB PO PRN (03:27)
[2024-11-17] MEDS: LEVOTHYROXINE SODIUM 25 MCG TABLET PO SCH (05:57)
[2024-11-17 06:20] LABS: Hematocrit (blood only) 32.7 % (37.0-47.0); Hemoglobin 10.1 g/dl (12.0-16.0); Mean Corpuscular Hemoglobin 28.5 pg (25.0-34.0); Mean Corpuscular Volume 92.1 fL (80.0-100.0); Platelet Count 421 K/uL (130-400); RDW Standard Deviation 62.0 fL (36.4-46.3); Red Blood Count 3.55 M/uL (4.20-5.40); White Blood Count 11.41 K/ul (4.8-10.8)
[2024-11-17 06:46] LABS: Anion Gap 6.0 (3-11); Blood Urea Nitrogen 12.0 mg/dl (6-23); Calcium 8.7 mg/dl (8.6-10.3); Carbon Dioxide 40.0 mmol/L (21-32); Chloride 92.0 mmol/L (98-107); Creatinine Clr Calc Pharmacy 48.2 ml/min; Glucose 101.0 mg/dl (70-99(Fasting)); Potassium 3.5 mmol/L (3.5-5.1); Sodium 138.0 mmol/L (136-145)
[2024-11-17] MEDS: THIAMINE HCL 100 MG TAB PO SCH (08:26)
[2024-11-17] MEDS: CLOPIDOGREL BISULFATE 75 MG TAB PO SCH (08:26)
[2024-11-17] MEDS: FLUTICASONE/VILANTEROL 100/25MCG 14 PUFFS/INHALER INH SCH (08:26)
[2024-11-17] MEDS: METOPROLOL SUCC 50MG EXT REL TAB PO SCH (08:26)
[2024-11-17] MEDS: UMECLIDINIUM BROMIDE 62.5MCG/BLISTER 7 PUFFS/INHALER INH SCH (08:26)
[2024-11-17] MEDS: POLYETHYLENE (MIRALAX) 17 GM PACK PO SCH ×2 (08:29→08:30)
[2024-11-17] MEDS: DOCUSATE SODIUM 100 MG CAP PO SCH (08:29)
[2024-11-17] MEDS: POLYETHYLENE (MIRALAX) 17 GM PACK ONE (08:30)
--- NOTE | 2024-11-17 11:40 | Hospitalist Progress Note ---
Date of Service November 17, 2024 Assessment & Plan (1) Fecal impaction: (2) Urinary tract infection: (3) COPD with emphysema: (4) CAD (coronary artery disease), [place] coronary artery: (5) Hypothyroidism: (6) Depression: (7) GERD (gastroesophageal reflux disease): (8) Dyslipidemia, goal LDL below 70: (9) HTN (hypertension): Plan 74yo female with multiple medical comorbidities presenting with abdominal pain, hematuria and fecal impaction #Fecal impaction CTAP w/ excess colonic stool burden. CBC w/ mild leukocytosis of 11.41. BMP w/ stable K of 3.5, Mag stable. 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 --> tailor as necessary UC pin point growth, reincubating. Isolation precautions requested for drug resistant bacteria #COPD no cough, SOB. Does have marked elevation of HCO3 on chemistry HCO3=44. w/ improvement to 40 on 11/17 VBG's: pH 7.46, pCO2 72, HCO3 51 Continue Fluticasone/Vilanterol/Umeclinidium Caution not to over oxygenate #Atrial fibrillation rate controlled Continue Metoprolol Hold Apixaban for now given hematuria --> resume when able. #CAD Plavix 75mg po qAM Metoprolol 50mg po BID #Hypertension-Metoprolol 50mg po BID #Hyperlipidemia-Hold Atorvastatin while patient is on Daptomycin #Hypothyroidism-Continue Synthroid #GERD-Protonix 40mg po BID DVT prophylaxis: hold in setting of gross hematuria, resume Eliquis when able Code: DNR/DNI Admission and Anticipated Discharge Date Admission Date: November 16, 2024 Anjana Pal was seen and examined this morning. She was lying in bed, reports abdominal pain. Denied any urinary symptoms. Physical Exam Constitutional: no acute distress Respiratory: normal respiratory effort, lungs clear to auscultation Cardiovascular: RRR, no murmur, no edema Gastrointestinal (Abdomen): hypoactive BS, generalized tenderness to palpation Results & Data Results & Data Vital Signs (Past 12 Hours) Vital Signs Temp Pulse Pulse Resp BP BP Pulse Ox 11/17/24 08:02 36.3 C L 87 16 122/79 100 11/17/24 00:24 88 18 110/74 98 11/17/24 00:19 11/17/24 00:19 36.4 C L 76 20 122/77 100 11/17/24 00:19 36.4 C L 76 20 122/77 100 O2 Del Method O2 Flow Rate 11/17/24 08:02 Nasal Cannula 1.0 11/17/24 00:24 Room Air 11/17/24 00:19 Nasal Cannula 2 11/17/24 00:19 Nasal Cannula 2 11/17/24 00:19 Nasal Cannula 2 PG Care Time/CCT Total # of Minutes Spent Total Time Spent with Patient: Total time spent is greater than 50% in coordination of care (as documented) at patient's floor/unit and/or counseling patient: Coding Level of Care Code 47592 SUB INP/OBS CARE 2/35MIN Diagnoses Fecal impaction K56.41 Urinary tract infection N39.0 COPD with emphysema J43.9 CAD (coronary artery disease), [place] coronary artery I25.10 Hypothyroidism E03.9 Depression F32.A GERD (gastroesophageal reflux disease) K21.9 Dyslipidemia, goal LDL below 70 E78.5 Primary hypertension I10 Hypertension type: primary hypertension (9) HTN (hypertension) Hypertension type: primary hypertension Qualified Code(s): I10 - Essential (primary) hypertension
[2024-11-17] MEDS: CEFEPIME 2000MG 2,000 MG/20 ML SYR IV SCH (11:43)
--- NOTE | 2024-11-17 11:47 | Electrocardiogram Report ---
Test Reason : Blood Pressure : */* mmHG Vent. Rate : 94 BPM Atrial Rate : * BPM P-R Int : * ms QRS Dur : 74 ms QT Int : 376 ms P-R-T Axes : * 47 -75 degrees QTcB Int : 470 ms Atrial fibrillation with a competing junctional pacemaker Abnormal ECG When compared with ECG of 24-Oct-2024 00:39, ST no longer depressed in Inferior leads ST no longer depressed in Anterior leads T wave inversion less evident in Inferior leads Confirmed by Meliton Falcon ([id number]) on 11/17/2024 11:46:42 AM Referred By: REFERRED SELF Confirmed By: Meliton Falcon
[2024-11-17] MEDS: MELATONIN 3 MG TAB PO SCH (22:52)
[2024-11-17] MEDS: DAPTOmycin 300 MG in SYRINGE 0 ML IV SCH (22:53)
[2024-11-18 10:32] LABS: Hematocrit (blood only) 33.7 % (37.0-47.0); Hemoglobin 10.8 g/dl (12.0-16.0); Mean Corpuscular Hemoglobin 29.8 pg (25.0-34.0); Mean Corpuscular Volume 93.1 fL (80.0-100.0); Platelet Count 386 K/uL (130-400); RDW Standard Deviation 62.7 fL (36.4-46.3); Red Blood Count 3.62 M/uL (4.20-5.40); White Blood Count 9.30 K/ul (4.8-10.8)
[2024-11-18 10:44] LABS: Anion Gap 7.0 (3-11); Blood Urea Nitrogen 10.0 mg/dl (6-23); Calcium 8.9 mg/dl (8.6-10.3); Carbon Dioxide 36.0 mmol/L (21-32); Chloride 96.0 mmol/L (98-107); Creatinine Clr Calc Pharmacy 57.0 ml/min; Glucose 131.0 mg/dl (70-99(Fasting)); Magnesium 1.6 mg/dl (1.7-2.4); Potassium 3.0 mmol/L (3.5-5.1); Sodium 139.0 mmol/L (136-145)
--- NOTE | 2024-11-18 16:08 | Hospitalist Progress Note ---
Date of Service November 18, 2024 Assessment & Plan (1) Fecal impaction: (2) Dementia, vascular with delirium: (3) Asymptomatic bacteriuria: (4) Severe protein-calorie malnutrition: (5) Electrolyte abnormality: (6) Failure to thrive in adult: (7) COPD (chronic obstructive pulmonary disease): (8) PAF (paroxysmal atrial fibrillation): (9) Atrial fibrillation: Plan Patient 74-year-old female presented from long-term with fecal impaction. Patient has been declining over many months. Has had multiple hospitalizations. At one point was on hospice care which was discontinued by her daughter due to secondary gain. Subsequently is determined that it is unsafe for the patient return home with the daughter. Patient has had bowel movements. Reviewed urine culture. Patient does not seem to be symptomatic with this, we will discontinue all antibiotics, suspect chronic colonization of both Enterococcus and Lena. Discussed with patient that the most appropriate care for her would be for her to be kept comfortable. She was agreeable with this. Communication with case management will attempt to return patient to long-term with hospice care Will not replace electrolytes, will not add check any additional laboratory studies Continue good bowel regimen. Admission and Anticipated Discharge Date Admission Date: November 16, 2024 Subjective Patient is an states has some chronic abdominal pain. Nursing reports had several good bowel movements Physical Exam Physical Exam: Constitutional: Alert, cachectic, frail HEENT: Mucous membranes slightly dry Lungs: decreased, no wheezes rales or rhonchi CV: S1-S2, regular Abdomen: Soft, mild diffuse tenderness, no guarding, no rigidity, nondistended Extremities: No significant edema Neuro: No focal deficits, generally weak Psych: Cooperative, flat affect Results & Data Results & Data Vital Signs (Past 12 Hours) Vital Signs Temp Pulse Pulse Resp BP Pulse Ox O2 Del Method 11/18/24 15:19 36.5 C 82 16 120/81 100 Nasal Cannula 11/18/24 11:50 36.3 C L 78 18 121/89 100 Nasal Cannula 11/18/24 07:38 37.1 C 89 18 101/68 100 Nasal Cannula 11/18/24 07:30 Nasal Cannula O2 Flow Rate 11/18/24 15:19 2 11/18/24 11:50 2 11/18/24 07:38 2 11/18/24 07:30 2 Diagnostic Findings Reviewed imaging, laboratory and diagnostic studies. Pertinent findings as below. WBCs 9.3 Hemoglobin 10.8 Potassium 3.0 Creatinine 0.58 Magnesium 1.6 (7) COPD (chronic obstructive pulmonary disease) COPD type: COPD with acute exacerbation Qualified Code(s): J44.1 - Chronic obstructive pulmonary disease with (acute) exacerbation
[2024-11-18] MEDS: POLYETHYLENE (MIRALAX) 17 GM PACK PO SCH (21:41)
[2024-11-18] MEDS: OLANZAPINE 2.5 MG TAB PO STA (23:59)
--- NOTE | 2024-11-19 11:36 | Hospitalist Progress Note ---
Date of Service November 19, 2024 Assessment & Plan (1) Fecal impaction: (2) Dementia, vascular with delirium: (3) Asymptomatic bacteriuria: (4) Severe protein-calorie malnutrition: (5) Electrolyte abnormality: (6) Failure to thrive in adult: (7) COPD (chronic obstructive pulmonary disease): (8) PAF (paroxysmal atrial fibrillation): (9) Atrial fibrillation: Plan Continue with comfort measures Case management working on authorization and cording return to skilled facility Patient now with numerous stools, can decrease frequency of MiraLAX Admission and Anticipated Discharge Date Admission Date: November 16, 2024 Subjective Patient resting comfortably, reports that her abdominal pain has improved. Agreeable to continuing with comfort care Physical Exam Physical Exam: Constitutional: Drowsy but able to awaken and converse, frail, cachectic HEENT: Mucous membranes slightly dry Lungs: Decreased, prolonged, no wheezes CV: S1-S2, regular Abdomen: Soft, nontender, nondistended Extremities: No significant edema Neuro: Generally weak Psych: Cooperative, flat affect Results & Data Results & Data Vital Signs (Past 12 Hours) Vital Signs Temp Pulse Resp BP Pulse Ox O2 Del Method 11/19/24 09:44 Room Air 11/19/24 09:09 36.5 C 92 H 18 121/80 93 Room Air (7) COPD (chronic obstructive pulmonary disease) COPD type: COPD with acute exacerbation Qualified Code(s): J44.1 - Chronic o bstructive pulmonary disease with (acute) exacerbation
[2024-11-19] MEDS: MELATONIN 3 MG TAB PO SCH (19:56)
[2024-11-20] MEDS: DOCUSATE SODIUM 100 MG CAP PO SCH (08:10)
[2024-11-20] MEDS: POLYETHYLENE (MIRALAX) 17 GM PACK PO SCH (08:10)
--- NOTE | 2024-11-20 11:52 | Hospitalist Progress Note ---
Date of Service November 20, 2024 Assessment & Plan (1) Fecal impaction: (2) Dementia, vascular with delirium: (3) Asymptomatic bacteriuria: (4) Severe protein-calorie malnutrition: (5) Electrolyte abnormality: (6) Failure to thrive in adult: (7) COPD (chronic obstructive pulmonary disease): (8) PAF (paroxysmal atrial fibrillation): (9) Atrial fibrillation: Plan Patient initially admitted with fecal impaction. This has resolved. Continue bowel regimen Communication with nursing staff to continue bowel regimen Communication with case management, pursuing return to [facility] Continue current level of care Admission and Anticipated Discharge Date Admission Date: November 16, 2024 Subjective Patient awake and interactive this morning. 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 Reports that she has had several stools. Physical Exam Physical Exam: Constitutional: Alert, frail, weak HEENT: Mucous membranes dry Lungs: Decreased CV: S1-S2, regular Abdomen: Soft, nontender, nondistended Extremities: No significant edema Neuro: Generalized weakness Psych: Cooperative, normal mood Results & Data Results & Data Vital Signs (Past 12 Hours) Vital Signs Temp Pulse Resp BP Pulse Ox O2 Del Method 11/20/24 08:06 36.3 C L 85 15 128/77 93 Room Air 11/20/24 08:05 Room Air (7) COPD (chronic obstructive pulmonary disease) COPD type: COPD with acute exacerbation Qualified Code(s): J44.1 - Chronic obstructive pulmonary disease with (acute) exacerbation
[2024-11-20] MEDS: LORazepam 0.5 MG TAB PO PRN (16:04)
[2024-11-21] MEDS: POLYETHYLENE (MIRALAX) 17 GM PACK PO SCH (08:41)
--- NOTE | 2024-11-21 15:04 | Hospitalist Progress Note ---
Date of Service November 21, 2024 Assessment & Plan (1) Fecal impaction: Plan: Resolved (2) Dementia, vascular with delirium: (3) Asymptomatic bacteriuria: (4) Severe protein-calorie malnutrition: (5) Electrolyte abnormality: (6) Failure to thrive in adult: (7) COPD (chronic obstructive pulmonary disease): (8) PAF (paroxysmal atrial fibrillation): (9) Atrial fibrillation: Plan Continue with current plan of care Continue bowel regimen Communication with case management continue to pursue insurance authorization to return to [facility] Admission and Anticipated Discharge Date Admission Date: November 16, 2024 Subjective No acute issues overnight. Patient reports she is comfortable Physical Exam Physical Exam: Constitutional: Sleeping but easily awakened, frail, weak HEENT: Mucous membranes moist. Lungs: Decreased breath sounds CV: S1-S2, regular Abdomen: Soft, nontender, nondistended Extremities: No significant edema Neuro: No focal deficits, generally weak Psych: Cooperative, normal mood Results & Data Results & Data Vital Signs (Past 12 Hours) Vital Signs Temp Pulse Resp BP Pulse Ox O2 Del Method 11/21/24 10:57 36.3 C L 82 20 143/92 H 93 Room Air 11/21/24 07:33 Room Air (7) COPD (chronic obstructive pulmonary disease) COPD type: COPD with acute exacerbation Qualified Code(s): J44.1 - Chronic obstructive pulmonary disease with (acute) exacerbation
--- NOTE | 2024-11-22 12:28 | Hospitalist Progress Note ---
Date of Service November 22, 2024 Assessment & Plan (1) Fecal impaction: Plan: Resolved (2) Dementia, vascular with delirium: (3) Asymptomatic bacteriuria: (4) Severe protein-calorie malnutrition: (5) Electrolyte abnormality: (6) Failure to thrive in adult: (7) COPD (chronic obstructive pulmonary disease): (8) PAF (paroxysmal atrial fibrillation): (9) Atrial fibrillation: Plan Patient with multiple end-stage comorbidities that has been declining over the past multiple months. Multiple hospitalizations. Most recently has been residing at [facility] facility readmitted for fecal impaction which is now resolved. Patient is comfortable, goals of care is to maintain comfort and avoid a lot of aggressive interventions and procedures. Patient is tolerating current bowel regimen Case management continuing to pursue return to [facility] facility with insurance. Patient ready for discharge when authorization obtained Admission and Anticipated Discharge Date Admission Date: November 16, 2024 Subjective No acute issues overnight. Patient denied any abdominal pain to me this morning. Nurse states that she reports intermittent abdominal pain that seems to be managed with Tylenol. Bowel movements have been regular and manageable Physical Exam Physical Exam: Constitutional: Alert, frail, weak, nontoxic HEENT: Mucous membranes moist. Lungs: Clear to auscultation, decreased, no wheezes rales or rhonchi CV: S1-S2, regular Abdomen: Soft, nontender, nondistended Extremities: No significant edema Neuro: No focal deficits Psych: Cooperative, normal mood Results & Data Results & Data Vital Signs (Past 12 Hours) Vital Signs Temp Pulse Resp BP Pulse Ox O2 Del Method 11/22/24 07:37 Room Air 11/22/24 06:59 36.4 C L 70 18 148/90 H 98 Room Air (7) COPD (chronic obstructive pulmonary disease) COPD type: COPD with acute exacerbation Qualified Code(s): J44.1 - Chronic obstructive pulmonary disease with (acute) exacerbation
[2024-11-22] MEDS: APIXABAN 2.5 MG TAB PO SCH (20:18)
--- NOTE | 2024-11-23 17:04 | Hospitalist Progress Note ---
Date of Service November 23, 2024 Assessment & Plan (1) Fecal impaction: Plan: Resolved (2) Dementia, vascular with delirium: (3) Asymptomatic bacteriuria: (4) Severe protein-calorie malnutrition: (5) Electrolyte abnormality: (6) Failure to thrive in adult: (7) COPD (chronic obstructive pulmonary disease): (8) PAF (paroxysmal atrial fibrillation): (9) Atrial fibrillation: Plan Per previous provider, w/addendum Patient with multiple end-stage comorbidities that has been declining over the past multiple months. Multiple hospitalizations. [facility] which is now resolved. Patient is comfortable, goals of care is to maintain comfort and avoid a lot of aggressive interventions and procedures. Patient is tolerating current bowel regimen Case management continuing to [facility]. Patient ready for discharge when authorization obtained 11/23 No new issues today, pt is found sitting up in bed, eating a snack. Discussed w/ RN - no concerns per nursing staff. Admission and Anticipated Discharge Date Admission Date: November 16, 2024 Subjective Pt seen in follow up. Admitted from [facility] w/ severe constipation Currently sitting up in bed in NAD, eating a snack No acute issues overnight. Patient denies any fever, chills, chest pain, shortness of breath, or abdominal pain. Nurse reports bowel movement overnight, none for her shift. Review of Systems Review of Systems: All systems reviewed & are unremarkable except as noted in Subjective Physical Exam Physical Exam: Constitutional: Alert, frail, weak HEENT: Mucous membranes moist. Lungs: Clear to auscultation, decreased, no wheezes rales or rhonchi CV: S1-S2, regular Abdomen: Soft, nontender, nondistended Extremities: No LE edema Neuro: awake, alert, answers simple questions appropriately, moves extremities Psych: Cooperative, normal mood Results & Data Results & Data Vital Signs (Past 12 Hours) Vital Signs Temp Pulse Resp BP Pulse Ox O2 Del Method O2 Flow Rate 11/23/24 08:30 Nasal Cannula 1 11/23/24 07:00 36.3 C L 81 20 147/88 H 96 Room Air Medications Administered Current Inpatient Medications Acetaminophen (Acetaminophen 325 Mg Tab) 650 mg PO Q4H PRN PRN Reason: Pain or Fever Stop: 12/17/24 00:18 Last Admin: 11/23/24 10:15 Dose: 650 mg Apixaban (Apixaban 2.5 Mg Tab) 2.5 mg PO BID [facility] Stop: 12/22/24 20:59 Last Admin: 11/23/24 08:18 Dose: 2.5 mg Bisacodyl (Bisacodyl 10 Mg Supp) 10 mg [place] DAILY PRN PRN Reason: Constipation Stop: 12/17/24 00:18 Last Admin: 11/17/24 01:14 Dose: 10 mg Clopidogrel Bisulfate (Clopidogrel Bisulfate 75 Mg Tab) 75 mg PO QAM [facility] Stop: 12/17/24 08:59 Last Admin: 11/23/24 08:18 Dose: 75 mg Docusate Sodium (Docusate Sodium 100 Mg Cap) 100 mg PO DAILY [facility] Stop: 12/20/24 08:59 Last Admin: 11/23/24 08:23 Dose: 100 mg Fluticasone/Vilanterol (Fluticasone/Vilanterol 100/25mcg 14 Puffs/Inhaler) 1 puffs INH DAILY [facility] Stop: 12/17/24 08:59 Last Admin: 11/23/24 08:18 Dose: 1 puffs Levothyroxine Sodium (Levothyroxine Sodium 25 Mcg Tablet) 25 mcg PO DAILYBB [facility] Stop: 12/17/24 06:29 Last Admin: 11/23/24 05:42 Dose: 25 mcg Lorazepam (Lorazepam 0.5 Mg Tab) 0.5 mg PO Q6H PRN PRN Reason: Anxiety Stop: 12/20/24 15:56 Last Admin: 11/23/24 01:59 Dose: 0.5 mg Melatonin (Melatonin 3 Mg Tab) 6 mg PO HS [facility] Stop: 12/19/24 20:59 Last Admin: 11/22/24 20:19 Dose: 6 mg Metoprolol Succinate (Metoprolol Succ 50mg Ext Rel Tab) 50 mg PO BID [facility] Stop: 12/17/24 08:59 Last Admin: 11/23/24 08:18 Dose: 50 mg Ondansetron HCl (Ondansetron Inj 2 Mg/Ml 2 Ml Vial) 4 mg IV Q6H PRN PRN Reason: Nausea And Vomiting Stop: 12/17/24 00:18 Ondansetron HCl (Ondansetron Inj 2 Mg/Ml 2 Ml Vial) 4 mg IV Q4H PRN PRN Reason: Nausea &/or Vomiting Stop: 12/19/24 11:28 Pantoprazole Sodium (Pantoprazole 40 Mg Tab) 40 mg PO BID [facility] Stop: 12/17/24 08:59 Last Admin: 11/23/24 08:18 Dose: 40 mg Polyethylene Glycol (Polyethylene (Miralax) 17 Gm Pack) 17 gm PO DAILY [facility] Stop: 12/21/24 08:59 Last Admin: 11/23/24 08:20 Dose: Not Given Thiamine HCl (Thiamine Hcl 100 Mg Tab) 100 mg PO QAM [facility] Stop: 12/17/24 08:59 Last Admin: 11/23/24 08:18 Dose: 100 mg Umeclidinium [place] (Umeclidinium [place] 62.5mcg/Blister 7 Puffs/Inhaler) 1 puffs INH QAM [facility] Stop: 12/17/24 08:59 Last Admin: 11/23/24 08:19 Dose: 1 puffs (7) COPD (chronic obstructive pulmonary disease) COPD type: COPD with acute exacerbation Qualified Code(s): J44.1 - Chronic obstructive pulmonary disease with (acute) exacerbation
--- NOTE | 2024-11-24 11:48 | Hospitalist Progress Note ---
Date of Service November 24, 2024 Assessment & Plan (1) Fecal impaction: Plan: Resolved (2) Dementia, vascular with delirium: (3) Asymptomatic bacteriuria: (4) Severe protein-calorie malnutrition: (5) Electrolyte abnormality: (6) Failure to thrive in adult: (7) COPD (chronic obstructive pulmonary disease): (8) PAF (paroxysmal atrial fibrillation): (9) Atrial fibrillation: Plan Per previous provider, w/addendum Patient with multiple end-stage comorbidities that has been declining over the past multiple months. Multiple hospitalizations. Most recently has been residing at senior living facility readmitted for fecal impaction which is now resolved. Patient is comfortable, goals of care is to maintain comfort and avoid a lot of aggressive interventions and procedures. Patient is tolerating current bowel regimen Case management continuing to pursue return to senior living facility with insurance. Patient ready for discharge when authorization obtained 11/23 No new issues today, pt is found sitting up in bed, eating a snack. Discussed w/ RN - no concerns per nursing staff. 11/24 No new concerns, pt is feeling well. Per RN, had BM overnight. Admission and Anticipated Discharge Date Admission Date: November 16, 2024 Subjective Pt seen in follow up. Admitted from [facility] w/ severe constipation Currently lying in bed in [facility] No acute issues overnight. Patient denies any fever, chills, chest pain, shortness of breath, or abdominal pain. Nurse reports pt had a bowel movement overnight. Review of Systems Review of Systems: All systems reviewed & are unremarkable except as noted in Subjective Physical Exam Physical Exam: Constitutional: Alert, frail, weak HEENT: Mucous membranes moist. Lungs: Clear to auscultation, decreased, no wheezes rales or rhonchi CV: S1-S2, regular Abdomen: Soft, nontender, nondistended Extremities: No LE edema Neuro: awake, alert, answers simple questions appropriately, moves extremities Psych: Cooperative, normal mood Results & Data Results & Data Vital Signs (Past 12 Hours) Vital Signs Temp Pulse Resp BP Pulse Ox O2 Del Method 11/24/24 07:16 36.3 C L 69 16 153/96 H 97 Room Air Medications Administered Current Inpatient Medications Acetaminophen (Acetaminophen 325 Mg Tab) 650 mg PO Q4H PRN PRN Reason: Pain or Fever Stop: 12/17/24 00:18 Last Admin: 11/24/24 07:47 Dose: 650 mg Apixaban (Apixaban 2.5 Mg Tab) 2.5 mg PO BID [facility] Stop: 12/22/24 20:59 Last Admin: 11/24/24 07:49 Dose: 2.5 mg Bisacodyl (Bisacodyl 10 Mg Supp) 10 mg [place] DAILY PRN PRN Reason: Constipation Stop: 12/17/24 00:18 Last Admin: 11/17/24 01:14 Dose: 10 mg Clopidogrel Bisulfate (Clopidogrel Bisulfate 75 Mg Tab) 75 mg PO QAM [facility] Stop: 12/17/24 08:59 Last Admin: 11/24/24 07:49 Dose: 75 mg Docusate Sodium (Docusate Sodium 100 Mg Cap) 100 mg PO DAILY [facility] Stop: 12/20/24 08:59 Last Admin: 11/24/24 07:47 Dose: 100 mg Fluticasone/Vilanterol (Fluticasone/Vilanterol 100/25mcg 14 Puffs/Inhaler) 1 puffs INH DAILY [facility] Stop: 12/17/24 08:59 Last Admin: 11/24/24 07:50 Dose: 1 puffs Levothyroxine Sodium (Levothyroxine Sodium 25 Mcg Tablet) 25 mcg PO DAILYBB [facility] Stop: 12/17/24 06:29 Last Admin: 11/24/24 06:08 Dose: 25 mcg Lorazepam (Lorazepam 0.5 Mg Tab) 0.5 mg PO Q6H PRN PRN Reason: Anxiety Stop: 12/20/24 15:56 Last Admin: 11/24/24 07:47 Dose: 0.5 mg Melatonin (Melatonin 3 Mg Tab) 6 mg PO HS [facility] Stop: 12/19/24 20:59 Last Admin: 11/23/24 20:31 Dose: 6 mg Metoprolol Succinate (Metoprolol Succ 50mg Ext Rel Tab) 50 mg PO BID [facility] Stop: 12/17/24 08:59 Last Admin: 11/24/24 07:47 Dose: 50 mg Ondansetron HCl (Ondansetron Inj 2 Mg/Ml 2 Ml Vial) 4 mg IV Q6H PRN PRN Reason: Nausea And Vomiting Stop: 12/17/24 00:18 Ondansetron HCl (Ondansetron Inj 2 Mg/Ml 2 Ml Vial) 4 mg IV Q4H PRN PRN Reason: Nausea &/or Vomiting Stop: 12/19/24 11:28 Pantoprazole Sodium (Pantoprazole 40 Mg Tab) 40 mg PO BID [facility] Stop: 12/17/24 08:59 Last Admin: 11/24/24 07:47 Dose: 40 mg Polyethylene Glycol (Polyethylene (Miralax) 17 Gm Pack) 17 gm PO DAILY [facility] Stop: 12/21/24 08:59 Last Admin: 11/24/24 07:47 Dose: 17 gm Thiamine HCl (Thiamine Hcl 100 Mg Tab) 100 mg PO QAM [facility] Stop: 12/17/24 08:59 Last Admin: 11/24/24 07:49 Dose: 100 mg Umeclidinium [place] (Umeclidinium [place] 62.5mcg/Blister 7 Puffs/Inhaler) 1 puffs INH QAM [facility] Stop: 12/17/24 08:59 Last Admin: 11/24/24 12:02 Dose: 1 puffs (7) COPD (chronic obstructive pulmonary disease) COPD type: COPD with acute exacerbation Qualified Code(s): J44.1 - Chronic obstructive pulmonary disease with (acute) exacerbation
[2024-11-24] MEDS: KETOROLAC TROMETHAMINE 15 MG/ML VIAL IV ONE (22:53)
[2024-11-24] MEDS: LORazepam 0.5 MG TAB PO STA (22:53)
[2024-11-24] MEDS: ONDANSETRON INJ 2 MG/ML 2 ML VIAL IV PRN (22:53)
[2024-11-25] MEDS: ACETAMINOPHEN 1,000 MG/100 ML VIAL IV STA (01:54)
--- NOTE | 2024-11-25 10:09 | Hospitalist Progress Note ---
Date of Service November 25, 2024 Assessment & Plan (1) Fecal impaction: Plan: Resolved (2) Dementia, vascular with delirium: (3) Asymptomatic bacteriuria: (4) Severe protein-calorie malnutrition: (5) Electrolyte abnormality: (6) Failure to thrive in adult: (7) COPD (chronic obstructive pulmonary disease): (8) PAF (paroxysmal atrial fibrillation): (9) Atrial fibrillation: Plan Per previous provider, w/addendum Patient with multiple end-stage comorbidities that has been declining over the past multiple months. Multiple hospitalizations. Most recently has been residing at nursing home facility readmitted for fecal impaction which is now resolved. Patient is comfortable, goals of care is to maintain comfort and avoid a lot of aggressive interventions and procedures. Please see note from 11/22/2024 per previous provider discussing in detail GOC. Case management continuing to pursue return to nursing home facility with insurance. Patient ready for discharge when authorization obtained 11/23 No new issues today, pt is found sitting up in bed, eating a snack. Discussed w/ RN - no concerns per nursing staff. 11/24 No new concerns, pt is feeling well. Per RN, had BM overnight. 11/25 Pt having loose stools, some abd. discomfort overnight, will change miralax to daily prn instead of scheduled. Admission and Anticipated Discharge Date Admission Date: November 16, 2024 Subjective Pt seen in follow up. Admitted from [facility] w/ severe constipation Currently lying in bed in NAD Patient denies any fever, chills, chest pain, shortness of breath, or abdominal pain. Pt been on daily miralax and been having soft stools. Last evening she was reporting some abdominal discomfort, will change miralax to prn daily Review of Systems Review of Systems: All systems reviewed & are unremarkable except as noted in Subjective Physical Exam Physical Exam: Constitutional: Alert, frail, weak HEENT: Mucous membranes moist. Lungs: Clear to auscultation, decreased, no wheezes rales or rhonchi CV: S1-S2, regular Abdomen: Soft, nontender, nondistended Extremities: No LE edema Neuro: awake, alert, answers simple questions appropriately, moves extremities Psych: Cooperative, normal mood Results & Data Results & Data Vital Signs (Past 12 Hours) Vital Signs Temp Pulse Resp BP BP Pulse Ox O2 Del Method 11/25/24 08:19 Room Air 11/25/24 08:09 36.5 C 95 H 16 148/99 H 92 Room Air 11/24/24 22:49 36.4 C L 85 16 145/95 H 96 Room Air Medications Administered Current Inpatient Medications Acetaminophen (Acetaminophen 325 Mg Tab) 650 mg PO Q4H PRN PRN Reason: Pain or Fever Stop: 12/17/24 00:18 Last Admin: 11/24/24 19:04 Dose: 650 mg Apixaban (Apixaban 2.5 Mg Tab) 2.5 mg PO BID [facility] Stop: 12/22/24 20:59 Last Admin: 11/25/24 08:35 Dose: 2.5 mg Bisacodyl (Bisacodyl 10 Mg Supp) 10 mg [place] DAILY PRN PRN Reason: Constipation Stop: 12/17/24 00:18 Last Admin: 11/17/24 01:14 Dose: 10 mg Clopidogrel Bisulfate (Clopidogrel Bisulfate 75 Mg Tab) 75 mg PO QAM [facility] Stop: 12/17/24 08:59 Last Admin: 11/25/24 08:35 Dose: 75 mg Docusate Sodium (Docusate Sodium 100 Mg Cap) 100 mg PO DAILY [facility] Stop: 12/20/24 08:59 Last Admin: 11/25/24 08:41 Dose: 100 mg Fluticasone/Vilanterol (Fluticasone/Vilanterol 100/25mcg 14 Puffs/Inhaler) 1 puffs INH DAILY [facility] Stop: 12/17/24 08:59 Last Admin: 11/25/24 08:33 Dose: 1 puffs Levothyroxine Sodium (Levothyroxine Sodium 25 Mcg Tablet) 25 mcg PO DAILYBB [facility] Stop: 12/17/24 06:29 Last Admin: 11/25/24 05:56 Dose: 25 mcg Lorazepam (Lorazepam 0.5 Mg Tab) 0.5 mg PO Q4H PRN PRN Reason: Anxiety Stop: 12/20/24 15:56 Melatonin (Melatonin 3 Mg Tab) 6 mg PO HS [facility] Stop: 12/19/24 20:59 Last Admin: 11/24/24 20:27 Dose: 6 mg Metoprolol Succinate (Metoprolol Succ 50mg Ext Rel Tab) 50 mg PO BID [facility] Stop: 12/17/24 08:59 Last Admin: 11/25/24 08:36 Dose: 50 mg Ondansetron HCl (Ondansetron Inj 2 Mg/Ml 2 Ml Vial) 4 mg IV Q6H PRN PRN Reason: Nausea And Vomiting Stop: 12/17/24 00:18 Last Admin: 11/24/24 22:53 Dose: 4 mg Ondansetron HCl (Ondansetron Inj 2 Mg/Ml 2 Ml Vial) 4 mg IV Q4H PRN PRN Reason: Nausea &/or Vomiting Stop: 12/19/24 11:28 Pantoprazole Sodium (Pantoprazole 40 Mg Tab) 40 mg PO BID [facility] Stop: 12/17/24 08:59 Last Admin: 11/25/24 08:36 Dose: 40 mg Polyethylene Glycol (Polyethylene (Miralax) 17 Gm Pack) 17 gm PO DAILY PRN PRN Reason: Constipation Stop: 12/21/24 08:59 Thiamine HCl (Thiamine Hcl 100 Mg Tab) 100 mg PO QAM [facility] Stop: 12/17/24 08:59 Last Admin: 11/25/24 08:36 Dose: 100 mg Tramadol HCl (Tramadol Hcl 50 Mg Tablet) 25 - 50 mg PO Q4H PRN PRN Reason: Pain Stop: 12/25/24 02:35 Last Admin: 11/25/24 02:54 Dose: 50 mg Umeclidinium [place] (Umeclidinium [place] 62.5mcg/Blister 7 Puffs/Inhaler) 1 puffs INH QAM [facility] Stop: 12/17/24 08:59 Last Admin: 11/25/24 08:33 Dose: 1 puffs (7) COPD (chronic obstructive pulmonary disease) COPD type: COPD with acute exacerbation Qualified Code(s): J44.1 - Chronic ob structive pulmonary disease with (acute) exacerbation
--- NOTE | 2024-11-26 15:55 | Hospitalist Progress Note ---
Date of Service November 26, 2024 Assessment & Plan (1) Fecal impaction: Plan: Resolved (2) Dementia, vascular with delirium: (3) Asymptomatic bacteriuria: (4) Severe protein-calorie malnutrition: (5) Electrolyte abnormality: (6) Failure to thrive in adult: (7) COPD (chronic obstructive pulmonary disease): (8) PAF (paroxysmal atrial fibrillation): (9) Atrial fibrillation: Plan Per previous provider, w/addendum Patient with multiple end-stage comorbidities that has been declining over the past multiple months. Multiple hospitalizations. Most recently has been residing at care home facility readmitted for fecal impaction which is now resolved. Patient is comfortable, goals of care is to maintain comfort and avoid a lot of aggressive interventions and procedures. Please see note from 11/22/2024 per previous provider discussing in detail GOC. Case management continuing to pursue return to care home facility with insurance. Patient ready for discharge when authorization obtained 11/23 No new issues today, pt is found sitting up in bed, eating a snack. Discussed w/ RN - no concerns per nursing staff. 11/24 No new concerns, pt is feeling well. Per RN, had BM overnight. 11/25 Pt having loose stools, some abd. discomfort overnight, will change miralax to daily prn instead of scheduled. 11/26: patient doing well this morning, no concerns, resting comfortably I spent a total of 25 minutes in direct patient care, including [id number] time with the patient and/or family, reviewing medical records, ordering and reviewing diagnostic tests, and coordinating care with other healthcare providers. This time includes: history taking, physical examination, medical decision making, counseling, ECG interpretation, imaging interpretation, lab interpretation, orders, and education, excluding time spent in the performance of separately billed services. Admission and Anticipated Discharge Date Admission Date: November 16, 2024 Subjective Patient seen at bedside. Patient comfortable at this time, no concerns, sleeping well. Review of Systems Review of Systems: CONSTITUTIONAL: Patient denies fevers, chills, sweats and weight changes. EYES: Patient denies any visual symptoms. EARS, NOSE, AND THROAT: No difficulties with hearing. No symptoms of rhinitis or sore throat. CARDIOVASCULAR: Patient denies chest pains, palpitations, orthopnea and paroxysmal nocturnal dyspnea. RESPIRATORY: No dyspnea on exertion, no wheezing or cough. GI: No nausea, vomiting, diarrhea, constipation, abdominal pain, hematochezia or melena. : No urinary hesitancy or dribbling. No nocturia or urinary frequency. No abnormal urethral discharge. MUSCULOSKELETAL: No myalgias or arthralgias. NEUROLOGIC: No chronic headaches, no seizures. Patient denies numbness, tingling or weakness. PSYCHIATRIC: Patient denies problems with mood disturbance. No problems with anxiety. ENDOCRINE: No excessive urination or excessive thirst. DERMATOLOGIC: Patient denies any rashes or skin changes. Physical Exam Physical Exam: Gen: A&O 3 NAD, severe sarcopenia and cachexia HEENT: NCAT, EOMI, not icteric. Extenal ears normal. No rhinorrhea. dry mucous membranes. Neck: Supple, full range of motion, no observable masses, No meningeal sign. Lungs: No Respiratory distress. CV: RRR, no edema. Abdomen: Soft, nondistended, No rebound tenderness. MSK: No joint swelling, no redness. Skin: No rashes, petechiae, lesions. Normal color per patient. Neuro: Normal Gait, Grossly intact. Psych: Appropriate for situation. Results & Data Results & Data Vital Signs (Past 12 Hours) Vital Signs Temp Pulse Resp BP BP Pulse Ox O2 Del Method 11/26/24 14:39 36.4 C L 122 H 16 167/127 H 166/131 H 92 Room Air 11/26/24 09:40 90 145/103 H 11/26/24 08:04 Room Air 11/26/24 06:59 36.7 C 84 16 151/99 H 93 Room Air (7) COPD (chronic obstructive pulmonary disease) COPD type: COPD with acute exacerbation Qualified Code(s): J44.1 - Chronic obstructive pulmonary disease with (acute) exacerbation
--- NOTE | 2024-11-27 14:34 | Hospitalist Progress Note ---
Date of Service November 27, 2024 Assessment & Plan (1) Fecal impaction: Plan: Resolved (2) Dementia, vascular with delirium: (3) Asymptomatic bacteriuria: (4) Severe protein-calorie malnutrition: (5) Electrolyte abnormality: (6) Failure to thrive in adult: (7) COPD (chronic obstructive pulmonary disease): (8) PAF (paroxysmal atrial fibrillation): (9) Atrial fibrillation: Plan Per previous provider, w/addendum Patient with multiple end-stage comorbidities that has been declining over the past multiple months. Multiple hospitalizations. Most recently has been residing at long-term facility readmitted for fecal impaction which is now resolved. Patient is comfortable, goals of care is to maintain comfort and avoid a lot of aggressive interventions and procedures. Please see note from 11/22/2024 per previous provider discussing in detail GOC. Case management continuing to pursue return to long-term facility with insurance. Patient ready for discharge when authorization obtained 11/23 No new issues today, pt is found sitting up in bed, eating a snack. Discussed w/ RN - no concerns per nursing staff. 11/24 No new concerns, pt is feeling well. Per RN, had BM overnight. 11/25 Pt having loose stools, some abd. discomfort overnight, will change miralax to daily prn instead of scheduled. 11/26: patient doing well this morning, no concerns, resting comfortably 11/27: patient comfortable this morning, resting comfortably I spent a total of 25 minutes in direct patient care, including [id number] time with the patient and/or family, reviewing medical records, ordering and reviewing diagnostic tests, and coordinating care with other healthcare providers. This time includes: history taking, physical examination, medical decision making, counseling, ECG interpretation, imaging interpretation, lab interpretation, orders, and education, excluding time spent in the performance of separately billed services. Admission and Anticipated Discharge Date Admission Date: November 16, 2024 Subjective Patient seen and examined at bedside. Patient doing ok today, resting comfortably. Review of Systems Review of Systems: CONSTITUTIONAL: Patient denies fevers, chills, sweats and weight changes. EYES: Patient denies any visual symptoms. EARS, NOSE, AND THROAT: No difficulties with hearing. No symptoms of rhinitis or sore throat. CARDIOVASCULAR: Patient denies chest pains, palpitations, orthopnea and paroxysmal nocturnal dyspnea. RESPIRATORY: No dyspnea on exertion, no wheezing or cough. GI: No nausea, vomiting, diarrhea, constipation, abdominal pain, hematochezia or melena. : No urinary hesitancy or dribbling. No nocturia or urinary frequency. No abnormal urethral discharge. MUSCULOSKELETAL: No myalgias or arthralgias. NEUROLOGIC: No chronic headaches, no seizures. Patient denies numbness, tingling or weakness. PSYCHIATRIC: Patient denies problems with mood disturbance. No problems with anxiety. ENDOCRINE: No excessive urination or excessive thirst. DERMATOLOGIC: Patient denies any rashes or skin changes. Physical Exam Physical Exam: Gen: A&O 3 NAD, severe sarcopenia and cachexia HEENT: NCAT, EOMI, not icteric. Extenal ears normal. No rhinorrhea. dry mucous membranes. Neck: Supple, full range of motion, no observable masses, No meningeal sign. Lungs: No Respiratory distress. CV: RRR, no edema. Abdomen: Soft, nondistended, No rebound tenderness. MSK: No joint swelling, no redness. Skin: No rashes, petechiae, lesions. Normal color per patient. Neuro: Normal Gait, Grossly intact. Psych: Appropriate for situation. Results & Data Results & Data Vital Signs (Past 12 Hours) Vital Signs Temp Pulse Resp BP Pulse Ox O2 Del Method 11/27/24 08:40 71 150/105 H 11/27/24 07:11 Room Air 11/27/24 06:59 36.6 C 85 16 142/95 H 96 Room Air Medications Administered Acetaminophen (Acetaminophen 325 Mg Tab) 650 mg PO Q4H PRN PRN Reason: Pain or Fever Stop: 12/17/24 00:18 Last Admin: 11/26/24 15:49 Dose: 650 mg Documented By: Admin: 11/24/24 19:04 Dose: 650 mg Documented By: Admin: 11/24/24 07:47 Dose: 650 mg Documented By: Admin: 11/23/24 23:10 Dose: 650 mg Documented By: Admin: 11/23/24 10:15 Dose: 650 mg Documented By: Admin: 11/23/24 01:59 Dose: 650 mg Documented By: Admin: 11/22/24 18:13 Dose: 650 mg Documented By: Admin: 11/22/24 08:42 Dose: 650 mg Documented By: Admin: 11/22/24 03:11 Dose: 650 mg Documented By: Admin: 11/21/24 22:15 Dose: 650 mg Documented By: Admin: 11/21/24 14:29 Dose: 650 mg Documented By: Admin: 11/21/24 05:14 Dose: 650 mg Documented By: Admin: 11/21/24 00:29 Dose: 650 mg Documented By: Admin: 11/20/24 20:29 Dose: 650 mg Documented By: Admin: 11/20/24 14:06 Dose: 650 mg Documented By: Admin: 11/20/24 10:07 Dose: 650 mg Documented By: Admin: 11/20/24 00:56 Dose: 650 mg Documented By: Admin: 11/19/24 19:53 Dose: 650 mg Documented By: Admin: 11/19/24 14:54 Dose: 650 mg Documented By: Admin: 11/18/24 23:58 Dose: 650 mg Documented By: Admin: 11/18/24 19:44 Dose: 650 mg Documented By: Admin: 11/18/24 12:22 Dose: 650 mg Documented By: Admin: 11/18/24 08:00 Dose: 650 mg Documented By: EDAlaina Admin: 11/17/24 19:37 Dose: 650 mg Documented By: Admin: 11/17/24 14:27 Dose: 650 mg Documented By: Admin: 11/17/24 08:27 Dose: 650 mg Documented By: Admin: 11/17/24 03:27 Dose: 650 mg Documented By: TRIXIE(2) Apixaban (Apixaban 2.5 Mg Tab) 2.5 mg PO BID GELACIO Stop: 12/22/24 20:59 Last Admin: 11/27/24 08:46 Dose: 2.5 mg Documented By: Admin: 11/26/24 22:01 Dose: 2.5 mg Documented By: steffany Admin: 11/26/24 09:50 Dose: 2.5 mg Documented By: Admin: 11/25/24 22:12 Dose: 2.5 mg Documented By: steffany Admin: 11/25/24 08:35 Dose: 2.5 mg Documented By: Admin: 11/24/24 20:27 Dose: 2.5 mg Documented By: Admin: 11/24/24 07:49 Dose: 2.5 mg Documented By: Admin: 11/23/24 20:32 Dose: 2.5 mg Documented By: Admin: 11/23/24 08:18 Dose: 2.5 mg Documented By: Admin: 11/22/24 20:18 Dose: 2.5 mg Documented By: TRIXIE Bisacodyl (Bisacodyl 10 Mg Supp) 10 mg ID DAILY PRN PRN Reason: Constipation Stop: 12/17/24 00:18 Last Admin: 11/17/24 01:14 Dose: 10 mg Documented By: TRIXIE(2) Clopidogrel Bisulfate (Clopidogrel Bisulfate 75 Mg Tab) 75 mg PO QAM [facility] Stop: 12/17/24 08:59 Last Admin: 11/27/24 08:46 Dose: 75 mg Documented By: Admin: 11/26/24 09:50 Dose: 75 mg Documented By: Admin: 11/25/24 08:35 Dose: 75 mg Documented By: Admin: 11/24/24 07:49 Dose: 75 mg Documented By: Admin: 11/23/24 08:18 Dose: 75 mg Documented By: Admin: 11/22/24 08:41 Dose: 75 mg Documented By: Admin: 11/21/24 08:39 Dose: 75 mg Documented By: Admin: 11/20/24 08:09 Dose: 75 mg Documented By: Admin: 11/19/24 07:49 Dose: 75 mg Documented By: Admin: 11/18/24 09:24 Dose: 75 mg Documented By: Admin: 11/17/24 08:26 Dose: 75 mg Documented By: JESU Docusate Sodium (Docusate Sodium 100 Mg Cap) 100 mg PO DAILY GELACIO Stop: 12/20/24 08:59 Last Admin: 11/27/24 08:46 Dose: 100 mg Documented By: Admin: 11/26/24 09:50 Dose: 100 mg Documented By: Admin: 11/25/24 08:41 Dose: 100 mg Documented By: Admin: 11/24/24 07:47 Dose: 100 mg Documented By: Admin: 11/23/24 08:23 Dose: 100 mg Documented By: Admin: 11/22/24 08:40 Dose: 100 mg Documented By: Admin: 11/20/24 09:36 Dose: 100 mg Documented By: Admin: 11/20/24 08:10 Dose: Not Given Documented By: AURY Fluticasone/Vilanterol (Fluticasone/Vilanterol 100/25mcg 14 Puffs/Inhaler) 1 puffs INH DAILY GELACIO Stop: 12/17/24 08:59 Last Admin: 11/27/24 08:40 Dose: 1 puffs Documented By: Admin: 11/26/24 09:48 Dose: 1 puffs Documented By: Admin: 11/25/24 08:33 Dose: 1 puffs Documented By: Admin: 11/24/24 07:50 Dose: 1 puffs Documented By: Admin: 11/23/24 08:18 Dose: 1 puffs Documented By: Admin: 11/22/24 08:40 Dose: 1 puffs Documented By: Admin: 11/21/24 08:39 Dose: 1 puffs Documented By: Admin: 11/20/24 08:10 Dose: 1 puffs Documented By: Admin: 11/19/24 07:49 Dose: 1 puffs Documented By: Admin: 11/18/24 09:24 Dose: 1 puffs Documented By: Admin: 11/17/24 08:26 Dose: 1 puffs Documented By: JESU Levothyroxine Sodium (Levothyroxine Sodium 25 Mcg Tablet) 25 mcg PO DAILYBB [facility] Stop: 12/17/24 06:29 Last Admin: 11/27/24 06:22 Dose: 25 mcg Documented By: steffany Admin: 11/26/24 06:10 Dose: 25 mcg Documented By: steffany Admin: 11/25/24 05:56 Dose: 25 mcg Documented By: Admin: 11/24/24 06:08 Dose: 25 mcg Documented By: Admin: 11/23/24 05:42 Dose: 25 mcg Documented By: Admin: 11/22/24 06:13 Dose: 25 mcg Documented By: Admin: 11/21/24 05:14 Dose: 25 mcg Documented By: Admin: 11/20/24 06:24 Dose: 25 mcg Documented By: Admin: 11/19/24 06:01 Dose: 25 mcg Documented By: Admin: 11/18/24 06:04 Dose: 25 mcg Documented By: dar Admin: 11/17/24 05:57 Dose: 25 mcg Documented By: TRIXIE(2) Melatonin (Melatonin 3 Mg Tab) 6 mg PO HS GELACIO Stop: 12/19/24 20:59 Last Admin: 11/26/24 22:00 Dose: 6 mg Documented By: steffany Admin: 11/25/24 22:12 Dose: 6 mg Documented By: steffany Admin: 11/24/24 20:27 Dose: 6 mg Documented By: Admin: 11/23/24 20:31 Dose: 6 mg Documented By: Admin: 11/22/24 20:19 Dose: 6 mg Documented By: Admin: 11/21/24 20:54 Dose: 6 mg Documented By: Admin: 11/20/24 20:28 Dose: 6 mg Documented By: Admin: 11/19/24 19:56 Dose: 6 mg Documented By: RENETTA Metoprolol Succinate (Metoprolol Succ 50mg Ext Rel Tab) 50 mg PO BID GELACIO Stop: 12/17/24 08:59 Last Admin: 11/27/24 08:46 Dose: 50 mg Documented By: Admin: 11/26/24 22:01 Dose: 50 mg Documented By: steffany Admin: 11/26/24 09:51 Dose: 50 mg Documented By: Admin: 11/25/24 22:12 Dose: 50 mg Documented By: steffany Admin: 11/25/24 08:36 Dose: 50 mg Documented By: Admin: 11/24/24 20:27 Dose: 50 mg Documented By: Admin: 11/24/24 07:47 Dose: 50 mg Documented By: Admin: 11/23/24 20:32 Dose: 50 mg Documented By: Admin: 11/23/24 08:18 Dose: 50 mg Documented By: Admin: 11/22/24 20:18 Dose: 50 mg Documented By: Admin: 11/22/24 08:40 Dose: 50 mg Documented By: Admin: 11/21/24 20:54 Dose: 50 mg Documented By: Admin: 11/21/24 08:39 Dose: 50 mg Documented By: Admin: 11/20/24 20:28 Dose: 50 mg Documented By: Admin: 11/20/24 08:09 Dose: 50 mg Documented By: Admin: 11/19/24 19:56 Dose: 50 mg Documented By: Admin: 11/19/24 07:48 Dose: 50 mg Documented By: Admin: 11/18/24 19:51 Dose: 50 mg Documented By: Admin: 11/18/24 09:24 Dose: 50 mg Documented By: Admin: 11/17/24 19:40 Dose: 50 mg Documented By: Admin: 11/17/24 08:26 Dose: 50 mg Documented By: JESU Ondansetron HCl (Ondansetron Inj 2 Mg/Ml 2 Ml Vial) 4 mg IV Q6H PRN PRN Reason: Nausea And Vomiting Stop: 12/17/24 00:18 Last Admin: 11/24/24 22:53 Dose: 4 mg Documented By: TRIXIE Pantoprazole Sodium (Pantoprazole 40 Mg Tab) 40 mg PO BID GELACIO Stop: 12/17/24 08:59 Last Admin: 11/27/24 08:46 Dose: 40 mg Documented By: Admin: 11/26/24 22:01 Dose: 40 mg Documented By: steffany Admin: 11/26/24 09:51 Dose: 40 mg Documented By: Admin: 11/25/24 22:13 Dose: 40 mg Documented By: steffany Admin: 11/25/24 08:36 Dose: 40 mg Documented By: Admin: 11/24/24 20:27 Dose: 40 mg Documented By: Admin: 11/24/24 07:47 Dose: 40 mg Documented By: Admin: 11/23/24 20:32 Dose: 40 mg Documented By: Admin: 11/23/24 08:18 Dose: 40 mg Documented By: Admin: 11/22/24 20:18 Dose: 40 mg Documented By: Admin: 11/22/24 08:41 Dose: 40 mg Documented By: Admin: 11/21/24 20:54 Dose: 40 mg Documented By: Admin: 11/21/24 08:39 Dose: 40 mg Documented By: Admin: 11/20/24 20:28 Dose: 40 mg Documented By: Admin: 11/20/24 08:09 Dose: 40 mg Documented By: Admin: 11/19/24 19:56 Dose: 40 mg Documented By: Admin: 11/19/24 07:48 Dose: 40 mg Documented By: Admin: 11/18/24 19:50 Dose: 40 mg Documented By: Admin: 11/18/24 09:25 Dose: 40 mg Documented By: Admin: 11/17/24 19:40 Dose: 40 mg Documented By: Admin: 11/17/24 08:26 Dose: 40 mg Documented By: JESU Thiamine HCl (Thiamine Hcl 100 Mg Tab) 100 mg PO QAM GELACIO Stop: 12/17/24 08:59 Last Admin: 11/27/24 08:46 Dose: 100 mg Documented By: Admin: 11/26/24 09:52 Dose: 100 mg Documented By: Admin: 11/25/24 08:36 Dose: 100 mg Documented By: Admin: 11/24/24 07:49 Dose: 100 mg Documented By: Admin: 11/23/24 08:18 Dose: 100 mg Documented By: Admin: 11/22/24 08:41 Dose: 100 mg Documented By: Admin: 11/21/24 08:39 Dose: 100 mg Documented By: Admin: 11/20/24 08:09 Dose: 100 mg Documented By: Admin: 11/19/24 07:48 Dose: 100 mg Documented By: Admin: 11/18/24 09:25 Dose: 100 mg Documented By: Admin: 11/17/24 08:26 Dose: 100 mg Documented By: JESU Tramadol HCl (Tramadol Hcl 50 Mg Tablet) 25 - 50 mg PO Q4H PRN PRN Reason: Pain Stop: 12/25/24 02:35 Last Admin: 11/26/24 11:32 Dose: 50 mg Documented By: Admin: 11/25/24 02:54 Dose: 50 mg Documented By: TRIXIE Umeclidinium [place] (Umeclidinium [place] 62.5mcg/Blister 7 Puffs/Inhaler) 1 puffs INH QAM GELACIO Stop: 12/17/24 08:59 Last Admin: 11/27/24 08:41 Dose: 1 puffs Documented By: Admin: 11/26/24 09:48 Dose: 1 puffs Documented By: Admin: 11/25/24 08:33 Dose: 1 puffs Documented By: Admin: 11/24/24 12:02 Dose: 1 puffs Documented By: Admin: 11/23/24 08:19 Dose: 1 puffs Documented By: Admin: 11/22/24 08:40 Dose: 1 puffs Documented By: Admin: 11/21/24 08:39 Dose: 1 puffs Documented By: Admin: 11/20/24 08:10 Dose: 1 puffs Documented By: Admin: 11/19/24 07:49 Dose: 1 puffs Documented By: Admin: 11/18/24 09:25 Dose: 1 puffs Documented By: Admin: 11/17/24 08:26 Dose: 1 puffs Documented By: EDH (7) COPD (chronic obstructive pulmonary disease) COPD type: COPD with acute exacerbation Qualified Code(s): J44.1 - Chronic obstructive pulmonary disease with (acute) exacerbation
[2024-11-27] MEDS: LORazepam 0.5 MG TAB PO PRN (20:55)
--- NOTE | 2024-11-28 15:34 | Hospitalist Progress Note ---
Date of Service November 28, 2024 Assessment & Plan (1) Fecal impaction: Plan: Resolved (2) Dementia, vascular with delirium: (3) Asymptomatic bacteriuria: (4) Severe protein-calorie malnutrition: (5) Electrolyte abnormality: (6) Failure to thrive in adult: (7) COPD (chronic obstructive pulmonary disease): (8) PAF (paroxysmal atrial fibrillation): (9) Atrial fibrillation: Plan Per previous provider, w/addendum Patient with multiple end-stage comorbidities that has been declining over the past multiple months. Multiple hospitalizations. [facility]action which is now resolved. Patient is comfortable, goals of care is to maintain comfort and avoid a lot of aggressive interventions and procedures. Please see note from 11/22/2024 per previous provider discussing in detail GOC. Case management continuing to pursue [facility] to [facility] with [facility]. Patient ready for discharge when authorization obtained 11/23 No new issues today, pt is found sitting up in bed, eating a snack. Discussed w/ RN - no concerns per nursing staff. 11/24 No new concerns, pt is feeling well. Per RN, had BM overnight. 11/25 Pt having loose stools, some abd. discomfort overnight, will change miralax to daily prn instead of scheduled. 16: patient doing well this morning, no concerns, resting comfortably 11/27: patient comfortable this morning, resting comfortably 11/28: patient comfortable this morning, no concerns at this time I spent a total of 25 minutes in direct patient care, including [id number] time with the patient and/or family, reviewing medical records, ordering and reviewing diagnostic tests, and coordinating care with other healthcare providers. This time includes: history taking, physical examination, medical decision making, counseling, ECG interpretation, imaging interpretation, lab interpretation, orders, and education, excluding time spent in the performance of separately billed services. Admission and Anticipated Discharge Date Admission Date: November 16, 2024 Subjective Patient seen and examined at bedside. Comfortable at this time. Review of Systems Review of Systems: CONSTITUTIONAL: Patient denies fevers, chills, sweats and weight changes. EYES: Patient denies any visual symptoms. EARS, NOSE, AND THROAT: No difficulties with hearing. No symptoms of rhinitis or sore throat. CARDIOVASCULAR: Patient denies chest pains, palpitations, orthopnea and paroxysmal nocturnal dyspnea. RESPIRATORY: No dyspnea on exertion, no wheezing or cough. GI: No nausea, vomiting, diarrhea, constipation, abdominal pain, hematochezia or melena. : No urinary hesitancy or dribbling. No nocturia or urinary frequency. No abnormal urethral discharge. MUSCULOSKELETAL: No myalgias or arthralgias. NEUROLOGIC: No chronic headaches, no seizures. Patient denies numbness, tingling or weakness. PSYCHIATRIC: Patient denies problems with mood disturbance. No problems with anxiety. ENDOCRINE: No excessive urination or excessive thirst. DERMATOLOGIC: Patient denies any rashes or skin changes. Physical Exam Physical Exam: Gen: A&O 3 NAD, severe sarcopenia and cachexia HEENT: NCAT, EOMI, not icteric. Extenal ears normal. No rhinorrhea. dry mucous m embranes. Neck: Supple, full range of motion, no observable masses, No meningeal sign. Lungs: No Respiratory distress. CV: RRR, no edema. Abdomen: Soft, nondistended, No rebound tenderness. MSK: No joint swelling, no redness. Skin: No rashes, petechiae, lesions. Normal color per patient. Neuro: Normal Gait, Grossly intact. Psych: Appropriate for situation. Results & Data Results & Data Vital Signs (Past 12 Hours) Vital Signs Temp Pulse Resp BP Pulse Ox O2 Del Method 11/28/24 07:21 36.4 C L 76 18 159/97 H 92 Room Air (7) COPD (chronic obstructive pulmonary disease) COPD type: COPD with acute exacerbation Qualified Code(s): J44.1 - Chronic obstructive pulmonary disease with (acute) exacerbation
--- NOTE | 2024-11-28 17:36 | Hospitalist Progress Note ---
Date of Service November 28, 2024 Assessment & Plan (1) Fecal impaction: Plan: Resolved (2) Dementia, vascular with delirium: (3) Asymptomatic bacteriuria: (4) Severe protein-calorie malnutrition: (5) Electrolyte abnormality: (6) Failure to thrive in adult: (7) COPD (chronic obstructive pulmonary disease): (8) PAF (paroxysmal atrial fibrillation): (9) Atrial fibrillation: Plan Per previous provider, w/addendum Patient with multiple end-stage comorbidities that has been declining over the past multiple months. Multiple hospitalizations. [facility] impaction which is now resolved. Patient is comfortable, goals of care is to maintain comfort and avoid a lot of aggressive interventions and procedures. Please see note from 11/22/2024 per previous provider discussing in detail GOC. Case management continuing to pursue return to [facility] with [facility]. Patient ready for discharge when authorization obtained 11/23 No new issues today, pt is found sitting up in bed, eating a snack. Discussed w/ RN - no concerns per nursing staff. 11/24 No new concerns, pt is feeling well. Per RN, had BM overnight. 11/25 Pt having loose stools, some abd. discomfort overnight, will change miralax to daily prn instead of scheduled. 16: patient doing well this morning, no concerns, resting comfortably 11/27: patient comfortable this morning, resting comfortably 11/28: patient comfortable this morning, no concerns at this time I spent a total of 25 minutes in direct patient care, including [id number] time with the patient and/or family, reviewing medical records, ordering and reviewing diagnostic tests, and coordinating care with other healthcare providers. This time includes: history taking, physical examination, medical decision making, counseling, ECG interpretation, imaging interpretation, lab interpretation, orders, and education, excluding time spent in the performance of separately billed services. Admission and Anticipated Discharge Date Admission Date: November 16, 2024 Subjective Patient seen and examined at bedside. Patient feels well overall, laying comfortably in bed. Review of Systems Review of Systems: CONSTITUTIONAL: Patient denies fevers, chills, sweats and weight changes. EYES: Patient denies any visual symptoms. EARS, NOSE, AND THROAT: No difficulties with hearing. No symptoms of rhinitis or sore throat. CARDIOVASCULAR: Patient denies chest pains, palpitations, orthopnea and paroxysmal nocturnal dyspnea. RESPIRATORY: No dyspnea on exertion, no wheezing or cough. GI: No nausea, vomiting, diarrhea, constipation, abdominal pain, hematochezia or melena. : No urinary hesitancy or dribbling. No nocturia or urinary frequency. No abnormal urethral discharge. MUSCULOSKELETAL: No myalgias or arthralgias. NEUROLOGIC: No chronic headaches, no seizures. Patient denies numbness, tingling or weakness. PSYCHIATRIC: Patient denies problems with mood disturbance. No problems with anxiety. ENDOCRINE: No excessive urination or excessive thirst. DERMATOLOGIC: Patient denies any rashes or skin changes. Physical Exam Physical Exam: Gen: A&O 3 NAD, severe sarcopenia and cachexia HEENT: NCAT, EOMI, not icteric. Extenal ears normal. No rhinorrhea. dry mucous membranes. Neck: Supple, full range of motion, no observable masses, No meningeal sign. Lungs: No Respiratory distress. CV: RRR, no edema. Abdomen: Soft, nondistended, No rebound tenderness. MSK: No joint swelling, no redness. Skin: No rashes, petechiae, lesions. Normal color per patient. Neuro: Normal Gait, Grossly intact. Psych: Appropriate for situation. Results & Data Results & Data Vital Signs (Past 12 Hours) Vital Signs Temp Pulse Resp BP Pulse Ox O2 Del Method 11/28/24 07:21 36.4 C L 76 18 159/97 H 92 Room Air (7) COPD (chronic obstructive pulmonary disease) COPD type: COPD with acute exacerbation Qualified Code(s): J44.1 - Chronic obstructive pulmonary disease with (acute) exacerbation
[2024-11-29] MEDS: ONDANSETRON INJ 2 MG/ML 2 ML VIAL IV PRN (09:54)
--- NOTE | 2024-11-29 14:05 | Hospitalist Progress Note ---
Date of Service November 29, 2024 Assessment & Plan (1) Fecal impaction: (2) Dementia, vascular with delirium: (3) Asymptomatic bacteriuria: (4) Severe protein-calorie malnutrition: (5) Electrolyte abnormality: (6) Failure to thrive in adult: (7) COPD (chronic obstructive pulmonary disease): (8) PAF (paroxysmal atrial fibrillation): (9) Atrial fibrillation: Plan Per previous provider, w/addendum Patient with multiple end-stage comorbidities that has been declining over the past multiple months. Multiple hospitalizations. Most recently has been residing at [facility] facility readmitted for fecal impaction which is now resolved. Patient is comfortable, goals of care is to maintain comfort and avoid a lot of aggressive interventions and procedures. Please see note from 11/22/2024 per previous provider discussing in detail GOC. -- Continue comfort measures only --Case management working on placement Offers no complaints today Admission and Anticipated Discharge Date Admission Date: November 16, 2024 Subjective Patient is seen and examined at bedside Offers no complaints Prefers to be discharged home today Denies any chest pain, dyspnea, nausea, vomiting, abdominal pain Currently on comfort measures only Waiting for placement Review of Systems Review of Systems: All systems reviewed & are unremarkable except as noted in Subjective Physical Exam Physical Exam: Physical Exam: Vitals signs as noted above General Appearance: Thin, frail, chronic ill-appearing, no apparent distress Head: normocephalic, Atraumatic Eyes: normal inspection, EOMI Neck: supple, Trachea midline Respiratory/Chest: Normal breath sounds, CTA, No accessory muscle use Cardiovascular: Irregularly irregular, No murmur Abdomen/GI:Soft, Non tender, Bowel sounds present Extremities/Musculoskeletal:normal inspection, no edema Neurologic/Psych: Alert, awake, grossly no focal neurological deficits Skin: normal color, warm Results & Data Results & Data Vital Signs (Past 12 Hours) Vital Signs Temp Pulse Resp BP Pulse Ox O2 Del Method 11/29/24 07:50 Room Air 11/29/24 07:07 36.7 C 79 20 145/92 H 90 Room Air (7) COPD (chronic obstructive pulmonary disease) COPD type: COPD with acute exacerbation Qualified Code(s): J44.1 - Chronic obstructive pulmonary disease with (acute) exacerbation
--- NOTE | 2024-11-30 15:16 | Hospitalist Progress Note ---
Date of Service November 30, 2024 Assessment & Plan (1) Fecal impaction: (2) Dementia, vascular with delirium: (3) Asymptomatic bacteriuria: (4) Severe protein-calorie malnutrition: (5) Electrolyte abnormality: (6) Failure to thrive in adult: (7) COPD (chronic obstructive pulmonary disease): (8) PAF (paroxysmal atrial fibrillation): (9) Atrial fibrillation: Plan Per previous provider, w/addendum Patient with multiple end-stage comorbidities that has been declining over the past multiple months. Multiple hospitalizations. Most recently has been residing at [facility] facility readmitted for fecal impaction which is now resolved. Patient is comfortable, goals of care is to maintain comfort and avoid a lot of aggressive interventions and procedures. Please see note from 11/22/2024 per previous provider discussing in detail GOC. -- Continue comfort measures only Offers no complaints today Requiring minimal supplemental oxygen to maintain saturation Waiting placement Can utilize Ativan as needed for anxiety Case management to help with discharge planning Admission and Anticipated Discharge Date Admission Date: November 16, 2024 Subjective Patient is seen and examined at bedside Patient was found to be hypoxic this morning requiring minimal supplemental oxygen to maintain saturation Patient states feeling anxious but otherwise no complaints today Currently on comfort measures only Denies any chest pain, dyspnea Review of Systems Review of Systems: All systems reviewed & are unremarkable except as noted in Subjective Physical Exam Physical Exam: Physical Exam: Vitals signs as noted above General Appearance: Thin, frail, chronic ill-appearing, no apparent distress Head: normocephalic, Atraumatic Eyes: normal inspection, EOMI Neck: supple, Trachea midline Respiratory/Chest: Normal breath sounds, bilateral minimal crackles, No accessory muscle use Cardiovascular: Irregularly irregular, tachycardia, no murmur Abdomen/GI:Soft, Non tender, Bowel sounds present Extremities/Musculoskeletal:normal inspection, no edema Neurologic/Psych: Alert, awake, grossly no focal neurological deficits Skin: normal color, warm Results & Data Results & Data Vital Signs (Past 12 Hours) Vital Signs Temp Pulse Resp BP Pulse Ox O2 Del Method O2 Flow Rate 11/30/24 13:11 107 H 20 98 Nasal Cannula 2 11/30/24 10:43 74 20 98 Nasal Cannula 2 11/30/24 09:00 Nasal Cannula 2 11/30/24 08:45 131 H 24 97 Nasal Cannula 2 11/30/24 08:42 90 Nasal Cannula 2 11/30/24 08:41 36.4 C L 128 H 20 104/74 67 L Room Air (7) COPD (chronic obstructive pulmonary disease) COPD type: COPD with acute exacerbation Qualified Code(s): J44.1 - Chronic obstructive pulmonary disease with (acute) exacerbation
--- NOTE | 2024-12-01 15:06 | Hospitalist Progress Note ---
Date of Service December 01, 2024 Assessment & Plan (1) Fecal impaction: (2) Dementia, vascular with delirium: (3) Asymptomatic bacteriuria: (4) Severe protein-calorie malnutrition: (5) Electrolyte abnormality: (6) Failure to thrive in adult: (7) COPD (chronic obstructive pulmonary disease): (8) PAF (paroxysmal atrial fibrillation): (9) Atrial fibrillation: Plan Per previous provider, w/addendum Patient with multiple end-stage comorbidities that has been declining over the past multiple months. Multiple hospitalizations. Most recently has been residing at [facility] facility readmitted for fecal impaction which is now resolved. Patient is comfortable, goals of care is to maintain comfort and avoid a lot of aggressive interventions and procedures. Please see note from 11/22/2024 per previous provider discussing in detail GOC. -- Continue comfort measures only Requiring minimal supplemental oxygen to maintain saturation Waiting placement Can utilize Ativan as needed for anxiety Case management to help with discharge planning Continue current management Admission and Anticipated Discharge Date Admission Date: November 16, 2024 Subjective Patient is seen and examined at bedside Lying comfortably in bed Offers no complaints Waiting for placement Review of Systems Review of Systems: All systems reviewed & are unremarkable except as noted in Subjective Physical Exam Physical Exam: Physical Exam: Vitals signs as noted above General Appearance: Thin, frail, chronic ill-appearing, no apparent distress Head: normocephalic, Atraumatic Eyes: normal inspection, EOMI Neck: supple, Trachea midline Respiratory/Chest: Normal breath sounds, bilateral minimal crackles, No accessory muscle use Cardiovascular: Irregularly irregular, tachycardia, no murmur Abdomen/GI:Soft, Non tender, Bowel sounds present Extremities/Musculoskeletal:normal inspection, no edema Neurologic/Psych: Alert, awake, grossly no focal neurological deficits Skin: normal color, warm Results & Data Results & Data Vital Signs (Past 12 Hours) Vital Signs Temp Pulse Resp BP Pulse Ox O2 Del Method O2 Flow Rate 12/01/24 14:27 36.7 C 80 16 155/100 H 100 Nasal Cannula 2 12/01/24 09:00 Room Air 12/01/24 07:58 36.3 C L 104 H 18 164/96 H 96 Nasal Cannula 2 (7) COPD (chronic obstructive pulmonary disease) COPD type: COPD with acute exacerbation Qualified Code(s): J44.1 - Chronic obstructive pulmonary disease with (acute) exacerbation
--- NOTE | 2024-12-02 12:49 | Hospitalist Progress Note ---
Date of Service December 02, 2024 Assessment & Plan (1) Fecal impaction: (2) Dementia, vascular with delirium: (3) Asymptomatic bacteriuria: (4) Severe protein-calorie malnutrition: (5) Electrolyte abnormality: (6) Failure to thrive in adult: (7) COPD (chronic obstructive pulmonary disease): (8) PAF (paroxysmal atrial fibrillation): (9) Atrial fibrillation: Plan Per previous provider, w/addendum Patient with multiple end-stage comorbidities that has been declining over the past multiple months. Multiple hospitalizations. Most recently has been residing at [facility] facility readmitted for fecal impaction which is now resolved. Patient is comfortable, goals of care is to maintain comfort and avoid a lot of aggressive interventions and procedures. Please see note from 11/22/2024 per previous provider discussing in detail GOC. -- Continue comfort measures only Requiring minimal supplemental oxygen to maintain saturation Waiting placement Can utilize Ativan as needed for anxiety Case management to help with discharge planning Continue current management Plan to be discharged to rehab facility on hospice on Thursday Admission and Anticipated Discharge Date Admission Date: November 16, 2024 Subjective Patient is seen and examined at bedside Denies any chest pain, dyspnea, nausea, vomiting, abdominal pain Waiting for placement No complaints today Review of Systems Review of Systems: All systems reviewed & are unremarkable except as noted in Subjective Physical Exam Physical Exam: Physical Exam: Vitals signs as noted above General Appearance: Thin, frail, chronic ill-appearing, no apparent distress Head: normocephalic, Atraumatic Eyes: normal inspection, EOMI Neck: supple, Trachea midline Respiratory/Chest: Normal breath sounds, bilateral minimal crackles, No accessory muscle use Cardiovascular: Irregularly irregular, tachycardia, no murmur Abdomen/GI:Soft, Non tender, Bowel sounds present Extremities/Musculoskeletal:normal inspection, no edema Neurologic/Psych: Alert, awake, grossly no focal neurological deficits Skin: normal color, warm Results & Data Results & Data Vital Signs (Past 12 Hours) Vital Signs Temp Pulse Resp BP Pulse Ox O2 Del Method O2 Flow Rate 12/02/24 09:00 36.6 C 81 16 132/68 94 Room Air 12/02/24 08:00 Nasal Cannula 2 (7) COPD (chronic obstructive pulmonary disease) COPD type: COPD with acute exacerbation Qualified Code(s): J44.1 - Chronic obstructive pulmonary disease with (acute) exacerbation
[2024-12-03] MEDS: SIMETHICONE 80 MG CHEW PO ONE (06:35)
--- NOTE | 2024-12-03 13:38 | Hospitalist Progress Note ---
Date of Service December 03, 2024 Assessment & Plan (1) Fecal impaction: (2) Dementia, vascular with delirium: (3) Asymptomatic bacteriuria: (4) Severe protein-calorie malnutrition: (5) Electrolyte abnormality: (6) Failure to thrive in adult: (7) COPD (chronic obstructive pulmonary disease): (8) PAF (paroxysmal atrial fibrillation): (9) Atrial fibrillation: Plan Per previous provider, w/addendum Patient with multiple end-stage comorbidities that has been declining over the past multiple months. Multiple hospitalizations. Most [facility] for fecal impaction which is now resolved. Patient is comfortable, goals of care is to maintain comfort and avoid a lot of aggressive interventions and procedures. Please see note from 11/22/2024 per previous provider discussing in detail GOC. -- Continue comfort measures only Requiring minimal supplemental oxygen to maintain saturation Waiting placement Can utilize Ativan as needed for anxiety Case management to help with discharge planning Plan to be discharged to rehab facility on hospice on Thursday Offers no new complaints today Continue current medications Admission and Anticipated Discharge Date Admission Date: November 16, 2024 Subjective Patient is seen and examined at bedside Offers no new complaints today On comfort measures only Denies any chest pain, dyspnea, nausea, vomiting, abdominal pain Waiting for placement Review of Systems Review of Systems: All systems reviewed & are unremarkable except as noted in Subjective Physical Exam Physical Exam: Physical Exam: Vitals signs as noted above General Appearance: Thin, frail, chronic ill-appearing, no apparent distress Head: normocephalic, Atraumatic Eyes: normal inspection, EOMI Neck: supple, Trachea midline Respiratory/Chest: Normal breath sounds, bilateral minimal crackles, No accessory muscle use Cardiovascular: Irregularly irregular, tachycardia, no murmur Abdomen/GI:Soft, Non tender, Bowel sounds present Extremities/Musculoskeletal:normal inspection, no edema Neurologic/Psych: Alert, awake, grossly no focal neurological deficits Skin: normal color, warm Results & Data Results & Data Vital Signs (Past 12 Hours) Vital Signs Temp Pulse Resp BP Pulse Ox O2 Del Method O2 Flow Rate 12/03/24 07:45 36.6 C 76 20 120/73 95 Nasal Cannula 2 (7) COPD (chronic obstructive pulmonary disease) COPD type: COPD with acute exacerbation Qualified Code(s): J44.1 - Chronic obstructive pulmonary disease with (acute) exacerbation
[2024-12-04] MEDS: POLYETHYLENE (MIRALAX) 17 GM PACK PO PRN (11:07)
[2024-12-04] MEDS: MoRPHine SULFATE 2 MG/ML CARP IV PRN (11:38)
--- NOTE | 2024-12-04 13:06 | Hospitalist Progress Note ---
Date of Service December 04, 2024 Assessment & Plan (1) Fecal impaction: (2) Dementia, vascular with delirium: (3) Asymptomatic bacteriuria: (4) Severe protein-calorie malnutrition: (5) Electrolyte abnormality: (6) Failure to thrive in adult: (7) COPD (chronic obstructive pulmonary disease): (8) PAF (paroxysmal atrial fibrillation): (9) Atrial fibrillation: Plan Per previous provider, w/addendum Patient with multiple end-stage comorbidities that has been declining over the past multiple months. Multiple hospitalizations. Most recently has been residing at [facility] facility readmitted for fecal impaction which is now resolved. Patient is comfortable, goals of care is to maintain comfort and avoid a lot of aggressive interventions and procedures. Please see note from 11/22/2024 per previous provider discussing in detail GOC. -- Continue comfort measures only Requiring minimal supplemental oxygen to maintain saturation Waiting placement Can utilize Ativan as needed for anxiety Case management to help with discharge planning Continue bowel regimen to help with constipation Added as needed IV morphine to help with abdominal pain Plan to be discharged on hospice Admission and Anticipated Discharge Date Admission Date: November 16, 2024 Subjective Patient is seen and examined at bedside States having abdominal pain and generalized associated with constipation today Poor oral intake On comfort measures only Denies any chest pain, dyspnea, nausea, vomiting No other complaints Review of Systems Review of Systems: All systems reviewed & are unremarkable except as noted in Subjective Physical Exam Physical Exam: Physical Exam: Vitals signs as noted above General Appearance: Thin, frail, chronic ill-appearing, no apparent distress Head: normocephalic, Atraumatic Eyes: normal inspection, EOMI Neck: supple, Trachea midline Respiratory/Chest: Normal breath sounds, bilateral minimal crackles, No accessory muscle use Cardiovascular: Irregularly irregular, tachycardia, no murmur Abdomen/GI:Soft, Non tender, Bowel sounds present Extremities/Musculoskeletal:normal inspection, no edema Neurologic/Psych: Alert, awake, grossly no focal neurological deficits Skin: normal color, warm Results & Data Results & Data Vital Signs (Past 12 Hours) Vital Signs Temp Pulse Resp BP Pulse Ox O2 Del Method O2 Flow Rate 12/04/24 09:25 Nasal Cannula 2 12/04/24 07:08 36.3 C L 85 16 157/91 H 98 Nasal Cannula 2 (7) COPD (chronic obstructive pulmonary disease) COPD type: COPD with acute exacerbation Qualified Code(s): J44.1 - Chronic obstructive pulmonary disease with (acute) exacerbation
[2024-12-04 15:26] VITALS: TEMP 97.5
[2024-12-05 07:47] VITALS: BP 136/104; PULSE 109; RESP 18; O2SAT 92
--- NOTE | 2024-12-05 11:51 | Hospitalist Progress Note ---
Date of Service December 05, 2024 Assessment & Plan (1) Fecal impaction: (2) Dementia, vascular with delirium: (3) Asymptomatic bacteriuria: (4) Severe protein-calorie malnutrition: (5) Electrolyte abnormality: (6) Failure to thrive in adult: (7) COPD (chronic obstructive pulmonary disease): (8) PAF (paroxysmal atrial fibrillation): (9) Atrial fibrillation: Plan Per previous provider, w/addendum Patient with multiple end-stage comorbidities that has been declining over the past multiple months. Multiple hospitalizations. Most recently has been residing at [facility] facility readmitted for fecal impaction which is now resolved. Patient is comfortable, goals of care is to maintain comfort and avoid a lot of aggressive interventions and procedures. Please see note from 11/22/2024 per previous provider discussing in detail GOC. -- Continue comfort measures only Requiring minimal supplemental oxygen to maintain saturation Waiting placement Can utilize Ativan as needed for anxiety Case management to help with discharge planning Continue bowel regimen to help with constipation Plan to be discharged to personal care facility on hospice Admission and Anticipated Discharge Date Admission Date: November 16, 2024 Subjective Patient is seen and examined at bedside Abdominal pain resolved No new complaints On comfort measures only Denies any chest pain, dyspnea, nausea, vomiting Plan to discharge to personal care facility today Review of Systems Review of Systems: All systems reviewed & are unremarkable except as noted in Subjective Physical Exam Physical Exam: Physical Exam: Vitals signs as noted above General Appearance: Thin, frail, chronic ill-appearing, no apparent distress Head: normocephalic, Atraumatic Eyes: normal inspection, EOMI Neck: supple, Trachea midline Respiratory/Chest: Normal breath sounds, bilateral minimal crackles, No accessory muscle use Cardiovascular: Irregularly irregular, tachycardia, no murmur Abdomen/GI:Soft, Non tender, Bowel sounds present Extremities/Musculoskeletal:normal inspection, no edema Neurologic/Psych: Alert, awake, grossly no focal neurological deficits Skin: normal color, warm Results & Data Results & Data Vital Signs (Past 12 Hours) Vital Signs Temp Pulse Resp BP Pulse Ox O2 Del Method O2 Flow Rate 12/05/24 10:11 Nasal Cannula 2 12/05/24 07:07 36.4 C L 109 H 18 136/104 H 92 Nasal Cannula 2 (7) COPD (chronic obstructive pulmonary disease) COPD type: COPD with acute exacerbation Qualified Code(s): J44.1 - Chronic obstructive pulmonary disease with (acute) exacerbation
--- NOTE | 2024-12-05 11:54 | Discharge Summary ---
Date of Service December 05, 2024 Admission HPI Per Admitting Provider Kae Johnston is a 74yo female with multiple medical comorbidities to include chronic hypoxic respiratory failure with hypoxia, COPD on 3L home O2, CAD, HTN, PAF, GERD, DM presenting with abdominal discomfort and hematuria. Patient with underlying dementia. Does not provide clear details of events prior to arrival. She states that she has some epigastric pain ongoing x 4 days as well as some dysuria and hematuria. No reports of fever, chills, chest pain, cough, SOB, nausea, vomiting, diarrhea. Patient recently admitted to [facility] 10/24 - 11/03 for encephalopathy and was discharged to a prison facility In the ER she was afebrile, HD stable ER Course: NSS x 500mL Zofran 4mg Morphine 2mg IV Ceftriaxone 2gm Cefepime 2gm KCl 20mEq Principal Diagnosis (1) Fecal impaction: (2) Dementia, vascular with delirium: (3) Asymptomatic bacteriuria: (4) Severe protein-calorie malnutrition: (5) Electrolyte abnormality: (6) Failure to thrive in adult: (7) COPD (chronic obstructive pulmonary disease): (8) PAF (paroxysmal atrial fibrillation): (9) Atrial fibrillation: Discharge Data Allergies Allergy/AdvReac Type Severity Reaction Status Date / Time bee venom protein (honey bee) Allergy Severe SWELLING Verified 11/16/24 21:47 SEVERE doxycycline Allergy Intermediate Vomiting Verified 11/16/24 21:47 Consultations 11/16/24 22:20 ED Decision to Admit Stat Procedures Performed Laboratory Results WBC 9.30 K/ul (4.8-10.8) 11/18/24 09:41 RBC 3.62 M/uL (4.20-5.40) L 11/18/24 09:41 Hgb 10.8 g/dl (12.0-16.0) L 11/18/24 09:41 Hct 33.7 % (37.0-47.0) L 11/18/24 09:41 MCV 93.1 fL (80.0-100.0) 11/18/24 09:41 MCH 29.8 pg (25.0-34.0) 11/18/24 09:41 MCHC 32.0 g/dL (32.0-36.0) 11/18/24 09:41 RDW Std Deviation 62.7 fL (36.4-46.3) H 11/18/24 09:41 RDW Coeff of Chet 18.3 % (11.5-14.5) H 11/18/24 09:41 Plt Count 386 K/uL (130-400) 11/18/24 09:41 MPV 9.3 fL (9.4-12.4) L 11/18/24 09:41 Immature Gran % (Auto) 0.6 % 11/16/24 19:42 Neut % (Auto) 70.3 % 11/16/24 19:42 Lymph % (Auto) 16.3 % 11/16/24 19:42 [place] % (Auto) 9.5 % 11/16/24 19:42 Eos % (Auto) 3.3 % 11/16/24 19:42 Baso % (Auto) 0.0 % 11/16/24 19:42 Neut # (Auto) 7.36 K/uL (1.40-6.50) H 11/16/24 19:42 Lymph # (Auto) 1.71 K/uL (1.20-3.40) 11/16/24 19:42 Clarke # (Auto) 0.99 K/uL (0.11-0.59) H 11/16/24 19:42 Eos # (Auto) 0.35 K/uL (0.00-0.50) 11/16/24 19:42 Baso # (Auto) 0.00 K/uL (0.00-0.20) 11/16/24 19:42 Immature Gran # (Auto) 0.06 K/uL (0.01-0.20) 11/16/24:42 PT 11.1 Seconds (9.0-12.0) 11/16/24:42 INR 1.0 (0.9-1.1) 11/16/24:42 APTT 26 Seconds (21-31) 11/16/24: PTT Ratio 1.0 11/16/24:42 VBG pH 7.46 (7.36-7.41) H 11/17/24 00:51 VBG pCO2 72 mmHg (38-50) H 11/17/24 00:51 VBG pO2 28 mmHg 11/17/24 00:51 VBG HCO3 51 mmol/L 11/17/24 00:51 VBG O2 Saturation < 60.0 % 11/17/24 00:51 VBG Base Excess 22.7 mEq/L 11/17/24 00:51 Sodium 139 mmol/L (136-145) 11/18/24 09:41 Potassium 3.0 mmol/L (3.5-5.1) L 11/18/24 09:41 Chloride 96 mmol/L (98-107) L 11/18/24 09:41 Carbon Dioxide 36 mmol/L (21-32) H 11/18/24 09:41 Anion Gap 7 (3-11) 11/18/24 09:41 BUN 10 mg/dl (6-23) 11/18/24 09:41 Creatinine 0.58 mg/dl (0.6-1.2) L 11/18/24 09:41 Est Cr Clr Drug Dosing 57.0 ml/min 11/18/24 09:41 eGFR 94.31 11/18/24 09:41 BUN/Creatinine Ratio 17.2 (10-20) 11/18/24 09:41 Glucose 131 mg/dl (70-99(Fasting)) H 11/18/24 09:41 Calcium 8.9 mg/dl (8.6-10.3) 11/18/24 09:41 Phosphorus 4.0 mg/dl (2.5-4.9) 11/17/24 00:51 Magnesium 1.6 mg/dl (1.7-2.4) L 11/18/24 09:41 Total Bilirubin 0.5 mg/dl (0.2-1.0) 11/16/24 19:42 AST 14 U/L (13-39) 11/16/24 19:42 ALT 10 U/L (7-52) 11/16/24 19:42 Alkaline Phosphatase 94 U/L (34-104) 11/16/24 19:42 Troponin I High Sens 9.7 pg/ml (0-14) 11/16/24 19:42 Total Protein 6.7 gm/dl (6.0-8.3) 11/16/24 19:42 Albumin 3.2 gm/dl (3.4-5.0) L 11/16/24 19:42 Globulin 3.5 gm/dl (2.5-4.0) 11/16/24 19:42 Albumin/Globulin Ratio 0.9 (0.9-2) 11/16/24 19:42 Lipase 53 U/L (11-82) 11/16/24 19:42 Urine Color [place] 11/16/24 19:42 Urine Appearance Cloudy (Clear) A 11/16/24 19:42 Urine pH 6.5 (4.5-7.5) 11/16/24 19:42 Ur Specific [place] 1.008 (1.000-1.030) 11/16/24 19:42 Urine Protein 1+ (Negative) H 11/16/24 19:42 Urine Glucose (UA) Negative (Negative) 11/16/24 19:42 Urine Ketones Negative (Negative) 11/16/24 19:42 Urine Blood 3+ (Negative) H 11/16/24 19:42 Urine Nitrite Negative (Negative) 11/16/24 19:42 Urine Bilirubin Negative (Negative) 11/16/24 19:42 Urine Urobilinogen Negative (Negative) 11/16/24 19:42 Ur Leukocyte Esterase 3+ (Negative) H 11/16/24 19:42 Urine WBC (Auto) >50 /hpf (0-5) H 11/16/24 19:42 Urine RBC (Auto) >20 /hpf (0-2) H 11/16/24 19:42 U Hyaline Cast (Auto) 0-2 /lpf (0-2) 11/16/24 19:42 U Epithel Cells (Auto) 0-2 /hpf (0-2) 11/16/24 19:42 Urine Bacteria (Auto) 1+ (None Seen) H 11/16/24 19:42 Urine Comment 11/16/24 19:42 Blood Type O Positive 11/16/24 19:48 Antibody Screen NEGATIVE 11/16/24 19:48 Impressions Abdomen/Pelvis CT 11/16/24 19:45 Exam(s): CT ABDOMEN + PELVIS With Contrast IV Amt: 93 ML OPTIRAY 320 EXAM: CT Abdomen and Pelvis With Intravenous Contrast CLINICAL HISTORY: Reason for exam: lower pain, bleeding. TECHNIQUE: Axial computed tomography images of the abdomen and pelvis with intravenous contrast. CTDI is 6.6 mGy and DLP is 289.89 mGy-cm. Automated exposure control was utilized for the study. A dose lowering technique was utilized adhering to the principles of ALARA. CONTRAST: Patient received 93 ML OPTIRAY 320 of IV contrast COMPARISON: 10/28/2024 FINDINGS: Pleural space: Small bilateral pleural effusions. ABDOMEN: Liver: Unremarkable. Gallbladder and bile ducts: Cholecystectomy. Mild biliary dilatation likely related to postcholecystectomy status. Pancreas: Unremarkable. Spleen: Unremarkable. Adrenals: Unremarkable. Kidneys and ureters: Right nephrostomy tube in place. Mild right- sided hydronephrosis. Stomach and bowel: Excess colonic stool burden. No bowel obstruction or inflammatory changes. PELVIS: Appendix: No findings to suggest acute appendicitis. Bladder: Unremarkable. Reproductive: Unremarkable as visualized. ABDOMEN and PELVIS: Intraperitoneal space: Unremarkable. No free air. No significant fluid collection. Bones/joints: Levoscoliosis and multilevel degenerative changes within the spine. Unchanged compression fracture at T11. Soft tissues: Unremarkable. Vasculature: Advanced aortobiiliac atherosclerotic calcifications mildly aneurysmal abdominal aorta up to 3 cm. Lymph nodes: Unremarkable. IMPRESSION: 1. Excess colonic stool burden. 2. Right nephrostomy tube in place. Mild right-sided hydronephrosis. 3. Small bilateral pleural effusions. 4. Advanced aortobiiliac atherosclerotic calcifications mildly aneurysmal abdominal aorta up to 3 cm. Electronically signed by: Bj Morales MD 11/16/24 22:11 PM Chest X-Ray 11/16/24 19:45 Exam(s): XR CXR 1 VIEW EXAM: XR Chest, 1 View CLINICAL HISTORY: Reason for exam: abd pain. TECHNIQUE: Frontal view of the chest. COMPARISON: 10/27/2024 FINDINGS: Lungs: Atelectasis or scarring in the right midlung and at the left base. Pleural space: Small left and trace right pleural effusion. Heart: Unremarkable. No cardiomegaly. IMPRESSION: 1. Atelectasis or scarring in the right midlung and at the left base. 2. Small left and trace right pleural effusion. Electronically signed by: Bj Morales MD 11/16/24 20:54 PM Ordered Studies 11/16/24 19:45 CT abd pelvis IV con only Stat Hospital Course (1) Fecal impaction: (2) Dementia, vascular with delirium: (3) Asymptomatic bacteriuria: (4) Severe protein-calorie malnutrition: (5) Electrolyte abnormality: (6) Failure to thrive in adult: (7) COPD (chronic obstructive pulmonary disease): (8) PAF (paroxysmal atrial fibrillation): (9) Atrial fibrillation: Plan Per previous provider, w/addendum Patient with multiple end-stage comorbidities that has been declining over the past multiple months. Multiple hospitalizations. Most recently has [facility] residing at prison facility readmitted for fecal impaction which is now resolved. Patient is comfortable, goals of care is to maintain comfort and avoid a lot of aggressive interventions and procedures. Please see note from 11/22/2024 per previous provider discussing in detail GOC. -- Continue comfort measures only Requiring minimal supplemental oxygen to maintain saturation Waiting placement Can utilize Ativan as needed for anxiety Case management to help with discharge planning Continue bowel regimen to help with constipation Plan to be discharged to personal care facility on hospice Total Time Total Time Spent Total Time Spent (In Minutes): 45 minutes Discharge Plan Discharge Items Patient Disposition: Hospice - Home Reason For Visit: UTI, HEMATURIA Discharge Diagnosis: (1) Fecal impaction: (2) Dementia, vascular with delirium: (3) Asymptomatic bacteriuria: (4) Severe protein-calorie malnutrition: (5) Electrolyte abnormality: (6) Failure to thrive in adult: (7) COPD (chronic obstructive pulmonary disease): (8) PAF (paroxysmal atrial fibrillation): (9) Atrial fibrillation: Condition on Discharge: Fair Activity: As commented below Activity Comment: As tolerated Exercise/Sports: As tolerated Non-emergency contact: Primary Care Provider Call non-emergency contact if: your symptoms worsen Follow-up/Referrals: Ronald Cortes MD [Primary Care Provider] - Diet: Regular Diet Texture: Easy to Chew Addtl Attending Provider Instructions: Patient's desire is to be kept comfortable at her place of living. Would not want any aggressive procedures or interventions. Would want to be sent to the emergency department or hospital only if she cannot be kept comfortable at the prison facility. Pending Studies at Discharge: No Stand-Alone Forms: My [facility] Medications and DC Order Prescriptions: New polyethylene glycol 3350 [Miralax] 17 gram Powder In Packet 17 g PO DAILY Qty: 30 0RF docusate sodium 100 mg Capsule 100 mg PO DAILY Qty: 30 0RF Continued fluticasone propion-salmeterol 250-50 mcg/dose Blister With Device 1 inh INHALATION BID lorazepam 1 mg tablet 0.5 mg PO Q6H PRN (Reason: Anxiety) acetaminophen 325 mg Tablet 650 mg PO Q6H MDD 3G PRN (Reason: Fever Or Pain) nitroglycerin 0.4 mg Tablet, Sublingual 0.4 mg sublingual UD Rx Instructions: sl prn chest pain Q 5min x 3 and to call 911 Eliquis 2.5 mg Tablet 2.5 mg PO BID Qty: 60 0RF atorvastatin 40 mg Tablet 40 mg PO QAM Qty: 30 0RF thiamine HCl (vitamin B1) 100 mg Tablet 100 mg PO QAM Qty: 30 0RF melatonin 3 mg Tablet 3 mg PO HS Qty: 30 0RF clopidogrel 75 mg Tablet 75 mg PO QAM Qty: 30 0RF Incruse Ellipta 62.5 mcg/actuation Blister With Device 1 inh inhalation QAM Qty: 30 0RF metoprolol succinate 50 mg Tablet Extended Release 24 Hr 50 mg PO BID Qty: 60 0RF levothyroxine 25 mcg Tablet 25 mcg PO DAILY Qty: 30 0RF ondansetron 4 mg Tablet,Disintegrating 4 mg PO Q6H PRN (Reason: nausea and vomiting) Qty: 10 0RF Changed pantoprazole [Protonix] 40 mg Tablet,Delayed Release (Dr/Ec) 40 mg PO BID Qty: 60 0RF Discontinued nitrofurantoin monohyd/m-cryst [Macrobid] 100 mg Capsule 100 mg PO BID Rx Instructions: 11/16/24 : BEGIN 11/15/24 X 7 DAYS furosemide [Lasix] 20 mg Tablet 20 mg PO DAILY Discharge Orders: Discharge Order (Routine); Ordered 12/05/24 Ordered By: Cale Turcios Admission Data Admit Date/Time: 11/16/24 22:39 Attending Provider: Cale Turcios Admit Provider: Olga Recio Primary Care Provider: Rnoald Cortes Other Providers: Olga Recio; Mariah,; Gabriel Ponce; [facility]
== END 2024-12-05 13:28 | disposition hospice, inpatient (51) | DRG 388 ==
LOC: ED 19:30 → 3E 22:39 → SUATTDRO 22:39 → 3E 11-17 00:24